=== PATIENT | male | born 1945 | race Caucasian/White ===

== ENCOUNTER 2017-12-12 11:42 | Inpatient (IN) | payer MEDICARE, SELFPAY ==
[2017-12-12] VITALS (10 sets, daily range): BP systolic 96–136; BP diastolic 69–95; PULSE 68–85; RESP 16–18; TEMP 36.6–36.8; O2SAT 95–98; BMI 28.0; BMI 27.4; BMI 27.5
--- NOTE | 2017-12-12 12:14 | EKG12_ITS ---
Test Reason : SOB Blood Pressure : / mmHG Vent. Rate : 070 BPM Atrial Rate : 129 BPM P-R Int : 000 ms QRS Dur : 164 ms QT Int : 472 ms P-R-T Axes : 000 270 081 degrees QTc Int : 509 ms Ventricular-paced rhythm Biventricular pacemaker detected Abnormal ECG Confirmed by TERESA PNOCE, NADNIE ([id number]), photograph editor JESSICA VALVERDE ([id number]) on 12/24/2017 1:03:32 PM Referred By: ED PHYSICIAN Confirmed By:NADINE MOORE MD
--- NOTE | 2017-12-12 12:22 | RAD_ITS ---
STUDY: X-RAY CHEST REASON FOR EXAM: Male, 71 years old. Shortness of breath and dyspnea. TECHNIQUE: PA and lateral views of the chest. COMPARISON: August 14, 2008 FINDINGS: Cardiac monitoring leads are present. Patient has left-sided intracardiac pacemaker. Patient has had a sternotomy. There is a diffuse groundglass attenuation in the right lung with interstitial thickening. This suggests an acute inflammatory process. There is no demonstrated pleural abnormality. There is moderate cardiac enlargement. Normal mediastinum and cary. Normal visualized pulmonary arteries. There is atherosclerotic calcification of the aortic arch with tortuosity. There is demineralization of the osseous structures. Normal visualized ribs, clavicles, and shoulders. There is no demonstrated abnormality of the visualized soft tissue structures of the upper abdomen. RAD/Chest PA and Lateral IMPRESSION: 1. Right-sided airspace disease possibly representing pneumonia. 2. Cardiomegaly and mild pulmonary congestion. Electronically Signed: Arlette Zhang MD at 13:17 EDT , Service support ,
[2017-12-12 12:52] LABS: Absolute Lymphocyte Count 0.73 X10^3/ul (0.83-4.51); Absolute Neutrophil Count 4.5 X10^3/uL (2.0-7.7); Basophil# 0.01 X10^3/uL; Basophil% 0.2 % (0-1); Eosinophil# 0.07 X10^3/uL; Eosinophils% 1.2 % (0-5); Hematocrit 42.9 % (40-54); Hemoglobin 14.6 g/dl (13.0-16.5); Lymphocyte # 0.73 X10^3/ul (4.0); Lymphocyte % 12.2 % (19-41); Mean Corpuscular Volume 85.3 fL (80-94); Mean Platelet Vol. 11.7 fl (6.2-12.0); Monocyte# 0.62 X10^3/uL; Monocyte% 10.4 % (0-10); Neutrophil # 4.53 X10^3/uL (2.7-7.7); Neutrophil % 75.8 % (47-70); POSITIVE COUNT NO; POSITIVE DIFFERENTIAL NO; POSITIVE MORPHOLOGY NO; Platelet Count 153 K/mm3 (150-450); RBC Distribution Width CV 14.9 % (11.6-14.6); RBC Distribution Width SD 46.1 fl (35.1-43.9); Red Blood Count 5.03 M/mm3 (4.6-6.2)
[2017-12-12 13:03] LABS: Prothrombin Time (Protime)PT. 22.5 SECONDS (11.7-14.9)
[2017-12-12 13:04] LABS: Partial Thromboplast Time 53.8 Seconds (24.1-36.2)
[2017-12-12 13:26] LABS: ALB/GLOB Ratio 0.9 RATIO (0.9-2.4); AST(SGOT) 49 U/L (15-37); Alanine Aminotransfer ALT/SGPT 64 U/L (16-61); Albumin, Serum 3.7 g/dL (3.2-5.0); Alkaline Phosphatase 102 U/L (45-117); Anion Gap 6 (5-15); BUN 19 mg/dL (7-18); BUN/Creat Ratio 14.6 RATIO (10-20); Calcium,Total 8.6 mg/dL (8.5-10.1); Chloride 103 mmol/L (98-107); EST Glomerular Filtration Rate 58 mL/min (>60); Est Glom Filt Rate - Afr Amer 70 mL/min (>60); Estimated Creatinine Clearance 51.36 ml/min; Glucose 126 mg/dL (74-106); Potassium 3.6 mmol/L (3.5-5.1); Protein, Total 7.7 g/dL (6.4-8.2); Sodium Level 139 mmol/L (136-145)
[2017-12-12 13:31] LABS: BNP,B-Type NATRIURETIC PEPTIDE 200.5 pg/mL (0-100)
--- NOTE | 2017-12-12 13:32 | ED.DCSUM_ITS ---
- ER Visit Summary Date of Service: 12/12/17 Chief Complaint: Shortness of breath History of Present Illness: The patient is a 72 F who states that he has a discomfort in his epigastrium. He states that it is a feeling that something is there that should not be. Is not necessarily painful. He notes over the past week he has become progressively more dyspneic. He states the other day he was unable to mow the lawn because of it. He has an extensive cardiac history having had CABG as well as numerous stents. He has a pacemaker defibrillator. He has a history of atrial fibrillation and is on Coumadin. He sees cardiology in [place] at [facility] Dr. Rubin. Patient does not know all of his medications. He does not know a lot of his medical history. His tells me that last fall they did an echocardiogram of his heart and stated that he did not have critical stenosis of his mitral valve yet but they were increasing his checkups to every 6 months. Physical Examination: Afebrile vital signs are stable Gen: Well-nourished well-developed Head: Normocephalic atraumatic Eyes: Perrl EOMI ENT: TMs clear no rhinorrhea moist mucous membranes Neck: Supple no lymphadenopathy no JVD nontender CVS: Regular rate rhythm no murmurs normal S1-S2 Respiratory: No distress clear to auscultation bilaterally chest nontender Abdomen: Soft nontender nondistended normal bowel sounds no masses Back: Nontender Extremity: Nontender no edema Skin: Normal color no rash Neuro: alert orientated ?3 CN II-XII intact normal strength sensation reflexes gait cerebellar Psych: Normal affect normal mood Test Results: KG is a paced rhythm. Chest x-ray was read as a possible infiltrate on the right. Given that he does have a white count or fever his CT Jennifer of his chest was ordered. This showed chronic lung changes. There was no PE or infiltrate noted. Patient has a troponin of 0.11. He is chronically elevated but typically in the 0.07-0.08 range. Liver enzymes are minimally elevated and his bilirubin is 2.2. His lipase is normal. He does have evidence of calcified gallstones on his CT. He does not note a history of discomfort with eating or vomiting or pain. I would think if he would have choledocholithiasis or cholecystitis some of these symptoms would be present. I spoke with the patient and his . We talked about hospitalization for further cardiac evaluation here at the hospital in [place] or transfer to [facility]. Patient would like to stay here at [place] unless absolutely necessary to be transferred. Impression: 1. Dyspnea 2. Elevated troponin 3. Cholelithiasis 4. Coronary artery disease This note was generated with [employer] dictation software. It may contain incorrect words, spelling, and punctuation that were not noted in review of the chart prior to signing ED Disposition - Plan for ED Patient: Chief Complaint: Shortness of Breath Referrals: George Mata MD [Primary Care Provider] -
--- NOTE | 2017-12-12 13:49 | CT_ITS ---
STUDY: CTA CHEST REASON FOR EXAM: Male, 71 years old. Shortness of breath with exertion for 2 weeks. RADIATION DOSAGE (If Supplied By Facility): CTDIvol = ( 15.49 ) mGy, DLP = ( 766.05 ) mGycm TECHNIQUE: The examination was performed with the intravenous administration of 75 ml of Isovue 370 contrast material. Post-processing of the angiographic images was performed, with multiplanar reformation and 3D reconstruction. Individualized dose optimization techniques were used for this CT. COMPARISON: None. FINDINGS: Patient has left-sided intracardiac pacemaker. Normal enhancement of the main pulmonary artery and right and left pulmonary arteries. Normal enhancement of the bilateral peripheral pulmonary arteries. There is no demonstrated pulmonary embolism. There is prominence of the main pulmonary arteries without peripheral pulmonary vascular congestion. There is patchy atherosclerotic calcification of the aortic arch with tortuosity. Maximum transverse dimension of ascending thoracic aorta measures 3.7 cm. There is no demonstrated aortic dissection. There is cardiomegaly. There are calcifications of the coronary arteries. There are visualized mediastinal lymph nodes, which are within normal size limits, and with normal morphology. There are enlarged left-sided hilar lymph nodes and right-sided hilar lymph nodes. Normal visualized trachea and bronchi. The lungs are well expanded. There is a heterogeneous, groundglass attenuation of the lung bases. There is interstitial thickening present in both lungs. There is interstitial thickening visible in the right upper lobe. There is more interstitial thickening in the right lung than there is in the left lung. The most severe abnormal attenuation is in the right lung base. Normal pleura. The patient has had a sternotomy. There are degenerative changes of thoracic spine. There are calcified gallstones. CT/CTA Chest W/WO Contrast IMPRESSION: 1. No CTA demonstrated pulmonary embolism or arterial dissection. 2. Diffuse interstitial thickening is visible particularly in the right lung and right lung base. Differential considerations include acute and/or chronic infection and/or inflammation. Electronically Signed: Arlette Zhang MD at 14:48 EDT , Service support ,
[2017-12-12 15:14] LABS: Lipase 205 U/L (73-393)
--- NOTE | 2017-12-12 15:37 | NURSING ---
DR JESSIE QUINONES
--- NOTE | 2017-12-12 15:46 | NURSING ---
HOSPITALIST IN ER
--- NOTE | 2017-12-12 15:48 | NURSING ---
PCU SOB, ANGINA KORAM
--- NOTE | 2017-12-12 16:07 | HP.PCM_ITS ---
Problem List (1) Angina effort Status: Acute (2) Borderline elevated troponin Status: Acute History of Present Illness Date of Admission: 12/12/17 Chief Complaint: exertional shortness of breath The patient is a 71 year old M with an extensive cardiac history. He has a history of 4 stents in the , quadruple bypass in 2006, mitral valve replacement in 2012 and history of pacemaker and defibrillator placed in 2014 as well as atrial fibrillation. Patient was admitted via the ED on 12/12/2017 with a complaint of exertional shortness of breath for a couple of days with associated epigastric discomfort. He states he has been short of breath for the past week but is gotten progressively worse over the last 2 days to the point where he cannot even move his lawn without getting short of breath. He denies any chest pain but only complained of the persistent epigastric discomfort which is new. Denied any lightheadedness or dizziness, any palpitations or diaphoresis. He also had no lower extremity edema. 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 Rubin. Please compliance with his medications. According to him he has been using his albuterol inhaler for asthma and COPD more frequently than usual and uses about 8 times per day. Prior to this week when symptoms started he was using the inhaler about twice a week. Review of systems otherwise negative. According to patient and his , he was diagnosed with hypertrophic cardiomyopathy and has a family history of similar condition and thus the reason his mitral valve was replaced. Per , he had a recent echocardiogram and was told that the stenosis of his mitral valve was worsening; however patient insists that it was rather the aortic valve that he was told was getting blocked. On admission in the ED, vitals with blood pressure 121/74, saturating 96% on room air, temperature of 97.9 and pulse rate of 70. EKG showed a paced rhythm and chest x-ray was read as a possible infiltrate in the right lung field. CT angiogram of chest showed only chronic lung changes and wound was negative for any PE or infiltrate. Troponin done in the ED was 0.11, baseline troponin is usually around 0.07-0.08. CT scan also showed evidence of calcified gallstones in his gallbladder. Patient has been admitted to be worked up for cardiac cause of shortness of breath. [] Past Medical History Past Medical History (Chronic Problems): Chronic Problems S/P PTCA (percutaneous transluminal coronary angioplasty) (Chronic) Glucose intolerance (impaired glucose tolerance) (Chronic) Cardiomyopathy (Chronic) Hypertension (Chronic) Status post valve replacement (Chronic) Hyperlipidemia (Chronic) Asthma (Chronic) Status post placement of cardiac pacemaker (Chronic) History of implantable cardiac defibrillator (ICD) (Chronic) Chronic atrial fibrillation (Chronic) Status post coronary artery bypass graft (Chronic) Coronary artery disease (Chronic) Allergies No Known Allergies Allergy (Verified 04/02/17 11:13) Home Medications: Ambulatory Orders Medication Instructions Recorded Albuterol Sulfate [Proair 90 mcg IH Q4H PRN PRN 02/16/17 Respiclick] Aspirin [Aspirin, Baby] 81 mg PO DAILY@0800 02/16/17 Carvedilol [Coreg (Beta Brett)] 3.125 mg PO BID 02/16/17 Fluticasone/Salmeterol [Advair 1 puff INHALATION BID 02/16/17 250/50 Mcg Diskus] Furosemide [Lasix] 40 mg PO DAILY 02/16/17 Lisinopril [Zestril] 2.5 mg PO DAILY 02/16/17 Nitroglycerin [Nitrostat] 0.4 mg SL PRN PRN 02/16/17 Pantoprazole Sodium 20 mg PO DAILY 02/16/17 Phenobarb/Hyoscy/Atropine/Scop 16.2 mg PO Q4H PRN PRN 02/16/17 [ Tablet] Warfarin Sodium [Coumadin] 5 mg PO DAILY 02/16/17 Atorvastatin Calcium [Lipitor] 40 mg PO QHS 12/12/17 Surgical History: angioplasty, appendectomy, coronary bypass surgery, pacemaker implantation, - - Cardiac stents. ICD placement. Lives: Spouse/ Significant Other Smoking Status: Former smoker - quit 40 years ago Tobacco Use: Cigarettes Alcohol: None Drugs: None - *Family History Maternal History Items: Heart Disease Paternal History Items: Heart Disease Review of Systems Constitutional: Denies: Chills, Fever, Night Sweats, Malaise, Weakness, Weight Change Eyes: Denies: Blurred vision HEENT: Denies: Head Aches, Sinus Congestion, Sinus Drainage Cardiovascular: Reports: Chest Tightness. Denies: Chest Pain, Claudication, Chest Pressure, Edema, Heaviness, Light Headedness, Orthopnea, Palpitations, Paroxysmal Noc. Dyspnea, Syncope Respiratory: Reports: Shortness of Breath, Shortness of breath at rest, Shortness of breath upon exertion. Denies: Cough, Hemoptysis, Pleuritic Pain, Sputum production, Wheezing Gastrointestinal: Reports: Dyspepsia. Denies: Abdominal Pain, Nausea, Vomiting Genitourinary: Denies: Dysuria Musculoskeletal: Denies: Back Pain, Joint Pain, Joint swelling, Joint Tenderness Skin: Denies: Rash, Wounds Neurological: Denies: Numbness, Tingling, Focal weakness Psychiatric: Denies: Anxiety, Depression, Homicidal Ideations, Suicidal Ideations Hematologic/ Lymphatic: Denies: Easy Bruising, Easy Bleeding VTE Information - Inpt Only VTE Present on Admission: No VTE Mechan Device Prophylaxis: SCD's VTE Pharm Prophylaxis ordered?: Yes Patient Problems: Active and Suspected Problems Angina effort (Acute) - Physical Exam General: Alert, Oriented x3, Cooperative, No apparent distress HEENT: Atraumatic, PERRLA, EOMI, Normocephalic Oral: Moist Mucosa Neck: Supple, No JVD, Negative Carotid Bruits Lungs: Clear to auscultation, Normal air movement Cardiovascular: Regular rate, Regular Rhythm, Normal S1, Normal S2, No murmurs Abdomen: Bowel Sounds Present, Soft, Non Tender, No Hepato-splenomegaly, - - distended abdomen; nontender, no organomegaly Extremities: No cyanosis, Capillary Refill Less than 3 Seconds, Edema - mild 1+ bilateral pitting pedal edema, Peripheral Pulses Normal Skin: No rashes, No breakdown Musculoskeletal: No Tenderness to Palpation of Joints or Extremities Lymphatic: No Cervical, Supraclavicular, or Inguinal Adenopathy Neurological: Cranial nerves II-XII grossly intact, Neuro grossly intact, Motor Exam 5/5 strength throughout Psych/Mental Status: Normal Affect, Appropriate, Alert and oriented to time, place, person, mood and affect Vital Signs Temp Pulse Resp BP Pulse Ox 97.9 F 70 17 96/69 95 12/12/17 11:43 12/12/17 14:14 12/12/17 14:14 12/12/17 14:14 12/12/17 14:14 Oxygen Delivery Method Room Air Weight: 189 lb 13.088 oz Body Mass Index (BMI) 28.0 Laboratory Tests Past 24 Hrs 05/05/18 05/05/18 05/05/18 11:50 11:50 11:50 WBC 6.0 RBC 5.03 Hgb 14.6 Hct 42.9 MCV 85.3 MCH 29.0 MCHC 34.0 RDW 14.9 H RDW Differential 46.1 H Plt Count 153 MPV 11.7 Immature Gran % (Auto) 0.200 Neut % (Auto) 75.8 H Lymph % (Auto) 12.2 L Motley % (Auto) 10.4 H Eos % (Auto) 1.2 Baso % (Auto) 0.2 Absolute Neuts (auto) 4.5 Absolute Lymphs (auto) 0.73 L Total Counted Not Reportable PT INR APTT Sodium 139 Potassium 3.6 Chloride 103 Carbon Dioxide 30.0 Anion Gap 6 BUN 19 H Creatinine 1.30 Estim Creat Clear Calc 51.36 Est GFR (MDRD) Af Amer 70 Est GFR (MDRD) Non-Af 58 L BUN/Creatinine Ratio 14.6 Glucose 126 H Calcium 8.6 Total Bilirubin 2.20 H AST 49 H ALT 64 H Alkaline Phosphatase 102 Troponin I 0.11 H B-Natriuretic Peptide 200.5 H Total Protein 7.7 Albumin 3.7 Globulin 4.0 Albumin/Globulin Ratio 0.9 Lipase 12/12/17 12/12/17 11:50 11:50 WBC RBC Hgb Hct MCV MCH MCHC RDW RDW Differential Plt Count MPV Immature Gran % (Auto) Neut % (Auto) Lymph % (Auto) Motley % (Auto) Eos % (Auto) Baso % (Auto) Absolute Neuts (auto) Absolute Lymphs (auto) Total Counted PT 22.5 H INR 2.0 APTT 53.8 H Sodium Potassium Chloride Carbon Dioxide Anion Gap BUN Creatinine Estim Creat Clear Calc Est GFR (MDRD) Af Amer Est GFR (MDRD) Non-Af BUN/Creatinine Ratio Glucose Calcium Total Bilirubin AST ALT Alkaline Phosphatase Troponin I B-Natriuretic Peptide Total Protein Albumin Globulin Albumin/Globulin Ratio Lipase 205 Assessment/Plan Active and Suspected Problems Angina effort (Acute) 71-year-old male with an extensive cardiac history including multiple stents, quadruple bypass, mitral valve replacements, hypertrophic cardiomyopathy and atrial fibrillation. Resents with worsening exertional shortness of breath for a week. He has associated epigastric discomfort but denies obvious chest pain. 1. Worsening shortness of breath, likely due to worsening angina vs Acute heart failure exacerbation vs symptomatic valvular stenosis (mitral vs aortic) * has no obvious JVD elevation; lungs were clear to auscultation. * CXR showed moderate cardiac enlargement with diffuse ground glass atennuation in right lung with interstitial thickening. * CT angiogram: diffuse interstitial thickening visible in right lung and right lung base. may be due to chronic infection and/or inflammation * EKG showed paced rhythm; no acute ST changes; BNPEP was 200 * has no leucocytosis or bands; * 2D echocardiogram; initial troponin was 0.11; will cycle * IV lasix 40mg bid. * breathing treatment with albuterol and atrovent * strict input and output monitoring; fluid restriction to 1500mls daily * cardiology consulted. * 2. CAD s/p stents and CABG * on carvedilol, lisinopril, atorvastatin and aspirin. Will continue * 3. COPD and asthma * says he had PFTs recently due to suspicion of COPD, but doesnt have results yet * has no wheezing or rhonchi on examination * will defer antibiotics for now due to absence of cough and no leucocytosis * breathing treatments with atrovent and albuterol * will give a 5 day course of PO prednisone 40mg daily due to more frequent use of albuterol recently. * 4. Afib * on coumadin 5mg daily. INR Is 2. Will continue and monitor INR * 5. GERD * complains of epigastric discomfort which could be due to GERD or angina * on pantoprazole 20mg daily. Will continue * 6. History of valvular insufficiency s/p mitral valve replacement * patient and confused about whether they were informed recently that the mitral or aortic valve insufficiency is worsening. * Will get 2D echo to assess valvular function. * 7. Elevated liver enzymes * bilirubin is 2.2; baseline is ~ 1.5. lipase is normal. AST/ALT-49/64 * CT abdomen showed calcified gallstones on CT scan. However, he has no fever or white cell count * Anderson's sign was negative. * will monitor liver enzymes * 8. DVT prophylaxis: on coumadin as mentioned above 9. GI prophylaxis: pantoprazole This note was generated with [employer] software. It may contain incorrect words, spelling, and punctuation that were not noted in checking the note before signing. Code Visit Inpatient E&M: 34440 Init Hosp L3
[2017-12-12] MEDS: Furosemide 40 MG/4 ML Vial IV (17:45)
[2017-12-12] MEDS: Albuterol 2.5 MG/3 ML VIAL.NEB. INHALATION (18:48)
[2017-12-12] MEDS: Budesonide Respules 0.5 MG/2 ML AMPUL.NEB. INHALATION (18:48)
[2017-12-12] MEDS: Atorvastatin Calcium 40 MG Tablet PO (22:14)
[2017-12-12] MEDS: Carvedilol 3.125 MG TABLET PO (22:14)
[2017-12-12] MEDS: 0.9% NaCl Peripheral Flush Adult/Peds IV (22:14)
[2017-12-13] VITALS (7 sets, daily range): BP systolic 97–113; BP diastolic 60–77; PULSE 70–696; RESP 14–18; TEMP 36.4–37; O2SAT 96–97
[2017-12-13 06:21] LABS: Bedside Glucose 101 mg/dL (70-110)
[2017-12-13] MEDS: Albuterol 2.5 MG/3 ML VIAL.NEB. INHALATION (07:00)
[2017-12-13] MEDS: Budesonide Respules 0.5 MG/2 ML AMPUL.NEB. INHALATION (07:00)
[2017-12-13 07:06] LABS: Absolute Lymphocyte Count 1.01 X10^3/ul (0.83-4.51); Absolute Neutrophil Count 4.6 X10^3/uL (2.0-7.7); Basophil# 0.01 X10^3/uL; Basophil% 0.2 % (0-1); Eosinophil# 0.13 X10^3/uL; Eosinophils% 2.1 % (0-5); Hematocrit 41.2 % (40-54); Hemoglobin 13.5 g/dl (13.0-16.5); Lymphocyte # 1.01 X10^3/ul (4.0); Lymphocyte % 16.2 % (19-41); Mean Corp Hgb Conc 32.8 g/gl (32-36); Mean Corpuscular Hgb 28.2 pg (27.0-32.0); Mean Platelet Vol. 10.7 fl (6.2-12.0); Monocyte# 0.53 X10^3/uL; Monocyte% 8.5 % (0-10); Neutrophil # 4.56 X10^3/uL (2.7-7.7); Neutrophil % 72.8 % (47-70); Platelet Count 128 K/mm3 (150-450); RBC Distribution Width CV 14.9 % (11.6-14.6); RBC Distribution Width SD 47.4 fl (35.1-43.9); Red Blood Count 4.79 M/mm3 (4.6-6.2); White Blood Count 6.3 K/mm3 (4.4-11.0)
[2017-12-13 07:09] LABS: POSITIVE COUNT NO; POSITIVE DIFFERENTIAL NO; POSITIVE MORPHOLOGY NO
[2017-12-13 07:42] LABS: Anion Gap 7 (5-15); BUN 19 mg/dL (7-18); BUN/Creat Ratio 17.9 RATIO (10-20); Calcium,Total 8.6 mg/dL (8.5-10.1); Chloride 106 mmol/L (98-107); Creatinine, Serum 1.06 mg/dL (0.70-1.30); EST Glomerular Filtration Rate 73 mL/min (>60); Est Glom Filt Rate - Afr Amer 88 mL/min (>60); Estimated Creatinine Clearance 62.99 ml/min; Glucose 94 mg/dL (74-106); Potassium 3.6 mmol/L (3.5-5.1); Sodium Level 142 mmol/L (136-145)
[2017-12-13] MEDS: Aspirin 81 MG TAB.CHEW PO (07:50)
--- NOTE | 2017-12-13 09:55 | PCM.CONS.C ---
Reason for Consult Date of Consultation: 12/13/17 Reason for Consultation: Shortness of breath History of Present Illness: The patient is a 71 year old M with an extensive cardiac history. He has a history of 4 stents in the , quadruple bypass in 2006, mitral valve replacement in 2012 and history of pacemaker and defibrillator placed in 2014 as well as atrial fibrillation. He also has a history of hypertrophic cardiomyopathy and thinks that he may have a problem with his aortic valve as well. Patient was admitted via the ED on 12/12/2017 with a complaint of exertional shortness of breath for a couple of days with associated epigastric discomfort. He states he has been short of breath for the past week but is gotten progressively worse over the last 2 days to the point where he cannot even move his lawn without getting short of breath. He denies any chest pain but only complained of the persistent epigastric discomfort which is new. Denied any lightheadedness or dizziness, any palpitations or diaphoresis. He also had no lower extremity edema. He follows up with his colorist at [facility], Dr. Delgadillo. Prior to this week when symptoms started he was using the inhaler about twice a week. He has an appointment to see his colorist in 3-5 days and thinks that there may be a problem with his aortic valve. On admission in the ED, vitals with blood pressure 121/74, saturating 96% on room air, temperature of 97.9 and pulse rate of 70. EKG showed a paced rhythm and chest x-ray was read as a possible infiltrate in the right lung field. CT angiogram of chest showed only chronic lung changes and wound was negative for any PE or infiltrate. Troponin done in the ED was 0.11, baseline troponin is usually around 0.07-0.08. CT scan also showed evidence of calcified gallstones in his gallbladder. Patient has been admitted to be worked up for cardiac cause of shortness of breath. At this particular time he appears to be doing well with improvement in his shortness of breath. [] Past Medical History Allergies/Adverse Reactions: Allergies No Known Allergies Allergy (Verified 04/02/17 11:13) Home Medications: Ambulatory Orders Medication Instructions Recorded Albuterol Sulfate [Proair 90 mcg IH Q4H PRN PRN 02/16/17 Respiclick] Aspirin [Aspirin, Baby] 81 mg PO DAILY@0800 02/16/17 Carvedilol [Coreg (Beta Brett)] 3.125 mg PO BID 02/16/17 Fluticasone/Salmeterol [Advair 1 puff INHALATION BID 02/16/17 250/50 Mcg Diskus] Furosemide [Lasix] 40 mg PO DAILY 02/16/17 Lisinopril [Zestril] 2.5 mg PO DAILY 02/16/17 Nitroglycerin [Nitrostat] 0.4 mg SL PRN PRN 02/16/17 Pantoprazole Sodium 20 mg PO DAILY 02/16/17 Phenobarb/Hyoscy/Atropine/Scop 16.2 mg PO Q4H PRN PRN 02/16/17 [ Tablet] Warfarin Sodium [Coumadin] 5 mg PO DAILY 02/16/17 Atorvastatin Calcium [Lipitor] 40 mg PO QHS 12/12/17 Past Medical History (Chronic Problems): Chronic Problems S/P PTCA (percutaneous transluminal coronary angioplasty) (Chronic) Glucose intolerance (impaired glucose tolerance) (Chronic) Cardiomyopathy (Chronic) Hypertension (Chronic) Status post valve replacement (Chronic) Hyperlipidemia (Chronic) Asthma (Chronic) Status post placement of cardiac pacemaker (Chronic) History of implantable cardiac defibrillator (ICD) (Chronic) Chronic atrial fibrillation (Chronic) Status post coronary artery bypass graft (Chronic) Coronary artery disease (Chronic) Surgical History: angioplasty, appendectomy, coronary bypass surgery, pacemaker implantation, - - Cardiac stents. ICD placement. - *Family History Maternal History Items: Heart Disease Paternal History Items: Heart Disease Lives: Spouse/ Significant Other Smoking Status: Former smoker - quit 40 years ago Tobacco Use: Cigarettes Alcohol: None Drugs: None Review of Systems - Review of Systems General: Denies: Fever, Night Sweats, Fatigue Cardiovascular: Reports: Shortness of Breath, Shortness of Breath at Rest, Shortness of Breath with Exertion. Denies: Chest Discomfort, Orthopnea, PND, Peripheral Edema, Palpitations, Lightheadedness, Dizziness, Near Syncope, Syncope Respiratory: Denies: Cough, Sputum Production, Hemoptysis Gastrointestinal: Denies: Hematemesis, Hematochezia, Melena Genitourinary: Denies: Dysuria, Hematuria Skin: Denies: Rash Subjectve: Pleasant gentleman in no apparent distress Objective: Vital Signs Temp Pulse Resp BP Pulse Ox 98.0 F 696 H 18 110/77 96 12/13/17 03:40 12/13/17 07:01 12/13/17 03:40 12/13/17 03:40 12/13/17 03:40 Oxygen Delivery Method Room Air Weight: 186 lb 1.122 oz Body Mass Index (BMI) 27.4 Intake and Output for Last 24 Hours 12/11/17 12/12/17 12/13/17 23:59 23:59 23:59 Intake Total 240 / 240 360 / 360 Output Total 325 / 325 Balance -85 / -85 360 / 360 General: Awake, Alert, Oriented x 3 HEENT: PERRL, EOMI, Sclera Non Icteric Neck: Supple, Good ROM, No Lymph Node Enlargement Lungs: Clear to auscultation Cardiovascular: Regular Rhythm, Normal S1, Normal S2, No Rubs, No Gallops Murmur Murmur: Grade 1/6, Early Systolic, LLSB Vascular: No Carotid Bruits, Normal Femoral Pulses, Normal Radial Pulses, Normal Dorsalis Pedal Pulse, Normal Posterior Tibial Pulses Abdomen: Bowel Sounds Present, Soft, Non Tender, No HSM, No Organomegaly Extremities: No Cyanosis, No Clubbing, No edema Skin: No Rashes Neurological: No Focal Motor or Sensory Deficit Psych/Mental Status: Appropriate 12/12/17 19:30: Troponin I 0.13 H 12/13/17 01:06: Troponin I 0.13 H 12/13/17 06:34: Sodium 142, Potassium 3.6, Chloride 106, Carbon Dioxide 29.0, Anion Gap 7, BUN 19 H, Creatinine 1.06, Est GFR (MDRD) Af Amer 88, Est GFR (MDRD) Non-Af 73, BUN/Creatinine Ratio 17.9, Glucose 94, Calcium 8.6 12/13/17 06:34: WBC 6.3, RBC 4.79, Hgb 13.5, Hct 41.2, MCV 86.0, MCH 28.2, MCHC 32.8, RDW 14.9 H, RDW Differential 47.4 H, Plt Count 128 L, MPV 10.7, Immature Gran % (Auto) 0.200, Neut % (Auto) 72.8 H, Lymph % (Auto) 16.2 L, [place] % (Auto) 8.5, Eos % (Auto) 2.1, Baso % (Auto) 0.2, Absolute Neuts (auto) 4.6, Total Counted Not Reportable 12/13/17 06:34: Troponin I 0.11 H Rhythm: EKG: Sinus bradycardia with a right bundle branch block rate of 59 bpm Assessment/Plan 1. Worsening shortness of breath, The above is likely secondary to diastolic dysfunction and congestive heart failure. The exact precipitating etiology however is not entirely clear as it may be multifactorial related to valvular heart disease from worsening aortic stenosis or his mitral valve replacement or dietary indiscretion. This will need to be sorted out a repeat echocardiogram will need to be performed and coronary ischemia also needs to be excluded. Due to his complicated cardiac history as well as his follow-up in [place] it may be prudent to have him follow-up with his colorist there for further clarification and risk stratification. I discussed this with the patient and his and they understand and agreed to proceed. In the meantime he will be restarted on Lasix intravenously pending his transfer. Also discussed with hospitalist. 2. CAD s/p stents and CABG Does have mildly abnormal troponin enzymes which could be secondary to his heart failure and no necessary from coronary ischemia. He does not have a rise and fall pattern. My suspicion is that this is secondary to demand ischemia. on carvedilol, lisinopril, atorvastatin and aspirin. Will continue 3. Afib on coumadin 5mg daily. INR Is 2. Will continue and monitor INR 4. History of valvular insufficiency s/p mitral valve replacement patient and confused about whether they were informed recently that the mitral or aortic valve insufficiency is worsening. His murmur does sound like he had a mitral valve issue. Will get 2D echo to assess valvular function. This can be performed in [place] 5. Hypertrophic cardiomyopathy He does have a history of hypertrophic cardiomyopathy and apparently had mitral valve replacement for treatment of the above. This will be reassessed again in [place]. In the meantime he will continue his beta-brett for rate control as well as improving diastolic function. Thank you for allowing me to participate in his care and please do not hesitate to contact me if any issues arise.
--- NOTE | 2017-12-13 09:59 | CON.PCM_ITS ---
Reason for Consult Date of Consultation: 12/13/17 Reason for Consultation: Shortness of breath History of Present Illness: The patient is a 71 year old M with an extensive cardiac history. He has a history of 4 stents in the , quadruple bypass in 2006, mitral valve replacement in 2012 and history of pacemaker and defibrillator placed in 2014 as well as atrial fibrillation. He also has a history of hypertrophic cardiomyopathy and thinks that he may have a problem with his aortic valve as well. Patient was admitted via the ED on 12/12/2017 with a complaint of exertional shortness of breath for a couple of days with associated epigastric discomfort. He states he has been short of breath for the past week but is gotten progressively worse over the last 2 days to the point where he cannot even move his lawn without getting short of breath. He denies any chest pain but only complained of the persistent epigastric discomfort which is new. Denied any lightheadedness or dizziness, any palpitations or diaphoresis. He also had no lower extremity edema. He follows up with his chummer at [facility], Dr. Delgadillo. Prior to this week when symptoms started he was using the inhaler about twice a week. He has an appointment to see his chummer in 3-5 days and thinks that there may be a problem with his aortic valve. On admission in the ED, vitals with blood pressure 121/74, saturating 96 % on room air, temperature of 97.9 and pulse rate of 70. EKG showed a paced rhythm and chest x-ray was read as a possible infiltrate in the right lung field. CT angiogram of chest showed only chronic lung changes and wound was negative for any PE or infiltrate. Troponin done in the ED was 0.11, baseline troponin is usually around 0.07-0.08. CT scan also showed evidence of calcified gallstones in his gallbladder. Patient has been admitted to be worked up for cardiac cause of shortness of breath. At this particular time he appears to be doing well with improvement in his shortness of breath. [] Past Medical History Allergies/Adverse Reactions: Allergies No Known Allergies Allergy (Verified 04/02/17 11:13) Home Medications: Ambulatory Orders Medication Instructions Recorded Albuterol Sulfate [Proair 90 mcg IH Q4H PRN PRN 02/16/17 Respiclick] Aspirin [Aspirin, Baby] 81 mg PO DAILY@0800 02/16/17 Carvedilol [Coreg (Beta Brett)] 3.125 mg PO BID 02/16/17 Fluticasone/Salmeterol [Advair 1 puff INHALATION BID 02/16/17 250/50 Mcg Diskus] Furosemide [Lasix] 40 mg PO DAILY 02/16/17 Lisinopril [Zestril] 2.5 mg PO DAILY 02/16/17 Nitroglycerin [Nitrostat] 0.4 mg SL PRN PRN 02/16/17 Pantoprazole Sodium 20 mg PO DAILY 02/16/17 Phenobarb/Hyoscy/Atropine/Scop 16.2 mg PO Q4H PRN PRN 02/16/17 [ Tablet] Warfarin Sodium [Coumadin] 5 mg PO DAILY 02/16/17 Atorvastatin Calcium [Lipitor] 40 mg PO QHS 12/12/17 Past Medical History (Chronic Problems): Chronic Problems S/P PTCA (percutaneous transluminal coronary angioplasty) (Chronic) Glucose intolerance (impaired glucose tolerance) (Chronic) Cardiomyopathy (Chronic) Hypertension (Chronic) Status post valve replacement (Chronic) Hyperlipidemia (Chronic) Asthma (Chronic) Status post placement of cardiac pacemaker (Chronic) History of implantable cardiac defibrillator (ICD) (Chronic) Chronic atrial fibrillation (Chronic) Status post coronary artery bypass graft (Chronic) Coronary artery disease (Chronic) Surgical History: angioplasty, appendectomy, coronary bypass surgery, pacemaker implantation, - - Cardiac stents. ICD placement. - *Family History Maternal History Items: Heart Disease Paternal History Items: Heart Disease Lives: Spouse/ Significant Other Smoking Status: Former smoker - quit 40 years ago Tobacco Use: Cigarettes Alcohol: None Drugs: None Review of Systems - Review of Systems General: Denies: Fever, Night Sweats, Fatigue Cardiovascular: Reports: Shortness of Breath, Shortness of Breath at Rest, Shortness of Breath with Exertion. Denies: Chest Discomfort, Orthopnea, PND, Peripheral Edema, Palpitations, Lightheadedness, Dizziness, Near Syncope, Syncope Respiratory: Denies: Cough, Sputum Production, Hemoptysis Gastrointestinal: Denies: Hematemesis, Hematochezia, Melena Genitourinary: Denies: Dysuria, Hematuria Skin: Denies: Rash Subjectve: Pleasant gentleman in no apparent distress Objective: Vital Signs Temp Pulse Resp BP Pulse Ox 98.0 F 696 H 18 110/77 96 12/13/17 03:40 12/13/17 07:01 12/13/17 03:40 12/13/17 03:40 12/13/17 03:40 Oxygen Delivery Method Room Air Weight: 186 lb 1.122 oz Body Mass Index (BMI) 27.4 Intake and Output for Last 24 Hours 12/11/17 12/12/17 12/13/17 23:59 23:59 23:59 Intake Total 240 / 240 360 / 360 Output Total 325 / 325 Balance -85 / -85 360 / 360 General: Awake, Alert, Oriented x 3 HEENT: PERRL, EOMI, Sclera Non Icteric Neck: Supple, Good ROM, No Lymph Node Enlargement Lungs: Clear to auscultation Cardiovascular: Regular Rhythm, Normal S1, Normal S2, No Rubs, No Gallops Murmur Murmur: Grade 1/6, Early Systolic, LLSB Vascular: No Carotid Bruits, Normal Femoral Pulses, Normal Radial Pulses, Normal Dorsalis Pedal Pulse, Normal Posterior Tibial Pulses Abdomen: Bowel Sounds Present, Soft, Non Tender, No HSM, No Organomegaly Extremities: No Cyanosis, No Clubbing, No edema Skin: No Rashes Neurological: No Focal Motor or Sensory Deficit Psych/Mental Status: Appropriate 12/12/17 19:30: Troponin I 0.13 H 12/13/17 01:06: Troponin I 0.13 H 12/13/17 06:34: Sodium 142, Potassium 3.6, Chloride 106, Carbon Dioxide 29.0, Anion Gap 7, BUN 19 H, Creatinine 1.06, Est GFR (MDRD) Af Amer 88, Est GFR (MDRD ) Non-Af 73, BUN/Creatinine Ratio 17.9, Glucose 94, Calcium 8.6 12/13/17 06:34: WBC 6.3, RBC 4.79, Hgb 13.5, Hct 41.2, MCV 86.0, MCH 28.2, MCHC 32.8, RDW 14.9 H, RDW Differential 47.4 H, Plt Count 128 L, MPV 10.7, Immature Gran % (Auto) 0.200, Neut % (Auto) 72.8 H, Lymph % (Auto) 16.2 L, [place] % (Auto) 8.5, Eos % (Auto) 2.1, Baso % (Auto) 0.2, Absolute Neuts (auto) 4.6, Total Counted Not Reportable 12/13/17 06:34: Troponin I 0.11 H Rhythm: EKG: Sinus bradycardia with a right bundle branch block rate of 59 bpm Assessment/Plan 1. Worsening shortness of breath, The above is likely secondary to diastolic dysfunction and congestive heart failure. The exact precipitating etiology however is not entirely clear as it may be multifactorial related to valvular heart disease from worsening aortic stenosis or his mitral valve replacement or dietary indiscretion. This will need to be sorted out a repeat echocardiogram will need to be performed and coronary ischemia also needs to be excluded. Due to his complicated cardiac history as well as his follow-up in [place] it may be prudent to have him follow-up with his chummer there for further clarification and risk stratification. I discussed this with the patient and his and they understand and agreed to proceed. In the meantime he will be restarted on Lasix intravenously pending his transfer. Also discussed with hospitalist. 2. CAD s/p stents and CABG Does have mildly abnormal troponin enzymes which could be secondary to his heart failure and no necessary from coronary ischemia. He does not have a rise and fall pattern. My suspicion is that this is secondary to demand ischemia. * on carvedilol, lisinopril, atorvastatin and aspirin. Will continue * 3. Afib * on coumadin 5mg daily. INR Is 2. Will continue and monitor INR * 4. History of valvular insufficiency s/p mitral valve replacement * patient and confused about whether they were informed recently that the mitral or aortic valve insufficiency is worsening. His murmur does sound like he had a mitral valve issue. * Will get 2D echo to assess valvular function. This can be performed in [place] * * 5. Hypertrophic cardiomyopathy He does have a history of hypertrophic cardiomyopathy and apparently had mitral valve replacement for treatment of the above. This will be reassessed again in [place]. In the meantime he will continue his beta-brett for rate control as well as improving diastolic function. Thank you for allowing me to participate in his care and please do not hesitate to contact me if any issues arise.
[2017-12-13] MEDS: Pantoprazole Sodium 20 MG Tablet PO (10:26)
[2017-12-13] MEDS: Carvedilol 3.125 MG TABLET PO (10:26)
[2017-12-13] MEDS: Lisinopril 2.5 MG Tablet PO (10:27)
[2017-12-13] MEDS: Isosorbide Mononitrate 30 MG Tablet PO (10:27)
[2017-12-13] MEDS: 0.9% NaCl Peripheral Flush Adult/Peds IV (10:29)
[2017-12-13] MEDS: Furosemide 40 MG/4 ML Vial IV (10:29)
--- NOTE | 2017-12-13 10:39 | PCM.PN.HOSP ---
Patient Problems: Active and Suspected Problems Angina effort (Acute) Subjective: 71-year-old male with an extensive cardiac history of multiple stents, quadruple bypass in 2007, mitral valve replacement, hypertrophic cardiomyopathy, history of pacemaker and defibrillator and atrial fibrillation. He was admitted on 12/12/2017 with a complaint of exertional shortness of breath with associated epigastric discomfort and use of his albuterol inhaler more frequently than usual. History of COPD and asthma. Be managed for worsening shortness of breath likely due to angina to rule out ACS. Initial troponin was 0.11 and it stayed around 0.11-0.13 with 3 cycles. He has remained stable. Patient seen and examined. He feels much better today. SOB has resolved. HE denies any chest pain, palpitations, dizziness, lightheadedness, pedal edema, abdominal pain, diarrhea or vomiting. REview of systems is otherwise negative. Vitals/I&O's: Vital Signs Temp Pulse Resp BP Pulse Ox 97.6 F L 71 14 113/75 947 12/13/17 10:19 12/13/17 10:19 12/13/17 10:19 12/13/17 10:19 12/13/17 10:19 Oxygen Delivery Method Room Air Weight: 186 lb 1.122 oz Body Mass Index (BMI) 27.4 Intake and Output for Last 24 Hours 12/11/17 12/12/17 12/13/17 23:59 23:59 23:59 Intake Total 240 / 240 360 / 360 Output Total 325 / 325 Balance -85 / -85 360 / 360 General: Alert, Oriented x3, Cooperative, No apparent distress HEENT: Atraumatic, PERRLA, EOMI, Normocephalic Oral: Moist Mucosa Neck: Supple, No JVD, Negative Carotid Bruits Lungs: Clear to auscultation, Normal air movement, No rhonchi, No wheeze, No rales Cardiovascular: Regular rate, Regular Rhythm, Normal S1, Normal S2, - - Mild grade 2 systolic aortic murmur. Abdomen: Bowel Sounds Present, Soft, Non Tender, Non-Distended, No Hepato-splenomegaly Extremities: No clubbing, No cyanosis, - - Edema of lower extremities has improved significantly from yesterday Skin: No rashes, No breakdown Musculoskeletal: No Tenderness to Palpation of Joints or Extremities Lymphatic: No Cervical, Supraclavicular, or Inguinal Adenopathy Neurological: Cranial nerves II-XII grossly intact, Neuro grossly intact, Motor Exam 5/5 strength throughout Psych/Mental Status: Normal Affect, Appropriate, Alert and oriented to time, place, person, mood and affect Laboratory Results 12/12/17 19:30: Troponin I 0.13 H 12/13/17 01:06: Troponin I 0.13 H 12/13/17 06:14: POC Glucose 101 12/13/17 06:34: Sodium 142, Potassium 3.6, Chloride 106, Carbon Dioxide 29.0, Anion Gap 7, BUN 19 H, Creatinine 1.06, Estim Creat Clear Calc 62.99, Est GFR (MDRD) Af Amer 88, Est GFR (MDRD) Non-Af 73, BUN/Creatinine Ratio 17.9, Glucose 94, Calcium 8.6 12/13/17 06:34: WBC 6.3, RBC 4.79, Hgb 13.5, Hct 41.2, MCV 86.0, MCH 28.2, MCHC 32.8, RDW 14.9 H, RDW Differential 47.4 H, Plt Count 128 L, MPV 10.7, Immature Gran % (Auto) 0.200, Neut % (Auto) 72.8 H, Lymph % (Auto) 16.2 L, [place] % (Auto) 8.5, Eos % (Auto) 2.1, Baso % (Auto) 0.2, Absolute Neuts (auto) 4.6, Absolute Lymphs (auto) 1.01, Total Counted Not Reportable 12/13/17 06:34: Troponin I 0.11 H Current Medications Albuterol Sulfate (Ventolin Aerosols) 2.5 mg INHALATION Q6HWA.RT [facility] Last Admin: 12/13/17 07:00 Dose: 2.5 mg Aspirin (Aspirin, Baby) 81 mg PO DAILY@0800 [facility] Last Admin: 12/13/17 07:50 Dose: 81 mg Atorvastatin Calcium (Lipitor) 40 mg PO QHS [facility] Last Admin: 12/12/17 22:14 Dose: 40 mg Belladonna Alkaloids/Phenobarbital ( Tablet) tablet PO Q4H PRN PRN PRN Reason: Diarrhea Budesonide (Pulmicort Aerosol) 0.5 mg INHALATION Q12H.RT [facility] Last Admin: 12/13/17 07:00 Dose: 0.5 mg Carvedilol (Coreg) 3.125 mg PO BID [facility] Last Admin: 12/13/17 10:26 Dose: 3.125 mg Furosemide (Lasix) 40 mg IV BID@1000,1800 [facility] Last Admin: 12/13/17 10:29 Dose: 40 mg Isosorbide Mononitrate (Imdur) 30 mg PO DAILY [facility] Last Admin: 12/13/17 10:27 Dose: 30 mg Lisinopril (Zestril) 2.5 mg PO DAILY [facility] Last Admin: 12/13/17 10:27 Dose: 2.5 mg Magnesium Hydroxide (Milk Of Magnesia) 30 ml PO DAILY PRN PRN PRN Reason: Constipation Magnesium Hydroxide (Milk Of Magnesia) 30 ml PO DAILY PRN PRN PRN Reason: Constipation Nitroglycerin (Nitrostat) 0.4 mg SUBLINGUAL PRN PRN PRN Reason: CHEST PAIN Pantoprazole Sodium (Protonix) 20 mg PO DAILY [facility] Last Admin: 12/13/17 10:26 Dose: 20 mg Sodium Chloride () 5 - 30 ml IV UD PRN PRN Reason: SALINE FLUSH Last Admin: 12/13/17 10:29 Dose: 20 ml Warfarin Sodium (Coumadin (Pbkc)) 5 mg PO DAILY@1700 [facility] Medical Necessity - Tobacco Use Smoking Status: Former smoker - quit 40 years ago Tobacco Use: Cigarettes Assessment/Plan Active and Suspected Problems Angina effort (Acute) 71-year-old male with an extensive cardiac history including multiple stents, quadruple bypass, mitral valve replacements, hypertrophic cardiomyopathy and atrial fibrillation. Presents with worsening exertional shortness of breath for a week. He has associated epigastric discomfort but denies obvious chest pain. 1. Worsening shortness of breath, likely due to worsening angina vs Acute heart failure exacerbation vs symptomatic valvular stenosis (mitral vs aortic) Of breath improved significantly overnight. Has no complaints this morning. Demented urine output was only 325 mils over 24 hours with negative balance of 85 mils. However patient looks much less overloaded relative to yesterday with edema having improved significantly. IV Lasix 40 mg twice daily and breathing treatment with albuterol and Atrovent. Initial troponin was 0.11 and trended up to 0.13 with cycling. Cardiology consulted. Per discussion with Dr. salcedo this morning, will be a good idea to transfer patient to [facility] because that is where he gets all his cardiac care and will be much better for patient for continuity of care. spoke to Dr. Violeta Donohue the tobacco drier operator it solutions sales consultant at [facility] on phone. She will accept patient will be transferred hospitalist service [facility]. 2. CAD s/p stents and CABG on carvedilol, lisinopril, atorvastatin and aspirin. Will continue 3. COPD and asthma Sleep COPD exacerbation improving. Lungs are much better than yesterday. Will continue 5 day course of p.o. prednisone and breathing treatments. 4. Afib on coumadin 5mg daily. INR Is 2. Will continue and monitor INR 5. GERD stable. Epigastric discomfort has resolvec on pantoprazole 20mg daily. 6. History of valvular insufficiency due to hypertrophic cardiomyopathy s/p mitral valve replacement patient and confused about whether they were informed recently that the mitral or aortic valve insufficiency is worsening. being transferred to the care of his tobacco drier operator at [facility] 7. Elevated liver enzymes bilirubin- 2.2; baseline is ~ 1.5. lipase is normal. AST/ALT-49/64 CT abdomen showed calcified gallstones on CT scan. However, he has no fever or white cell count Anderson's sign was negative. stable. Will monnitor 8. DVT prophylaxis: on coumadin as mentioned above 9. GI prophylaxis: pantoprazole Disposition: transfer to [facility] This note was generated with [employer] dictation software. It may contain incorrect words, spelling, and punctuation that were not noted in checking the note before signing. Code Visit Inpatient E&M: [id number] [facility] L3
--- NOTE | 2017-12-13 10:49 | PN_ITS ---
Patient Problems: Active and Suspected Problems Angina effort (Acute) Subjective: 71-year-old male with an extensive cardiac history of multiple stents, quadruple bypass in 2007, mitral valve replacement, hypertrophic cardiomyopathy , history of pacemaker and defibrillator and atrial fibrillation. He was admitted on 12/12/2017 with a complaint of exertional shortness of breath with associated epigastric discomfort and use of his albuterol inhaler more frequently than usual. History of COPD and asthma. Be managed for worsening shortness of breath likely due to angina to rule out ACS. Initial troponin was 0.11 and it stayed around 0.11-0.13 with 3 cycles. He has remained stable. Patient seen and examined. He feels much better today. SOB has resolved. HE denies any chest pain, palpitations, dizziness, lightheadedness, pedal edema, abdominal pain, diarrhea or vomiting. REview of systems is otherwise negative. Vitals/I&O's: Vital Signs Temp Pulse Resp BP Pulse Ox 97.6 F L 71 14 113/75 947 12/13/17 10:19 12/13/17 10:19 12/13/17 10:19 12/13/17 10:19 12/13/17 10:19 Oxygen Delivery Method Room Air Weight: 186 lb 1.122 oz Body Mass Index (BMI) 27.4 Intake and Output for Last 24 Hours 12/11/17 12/12/17 12/13/17 23:59 23:59 23:59 Intake Total 240 / 240 360 / 360 Output Total 325 / 325 Balance -85 / -85 360 / 360 General: Alert, Oriented x3, Cooperative, No apparent distress HEENT: Atraumatic, PERRLA, EOMI, Normocephalic Oral: Moist Mucosa Neck: Supple, No JVD, Negative Carotid Bruits Lungs: Clear to auscultation, Normal air movement, No rhonchi, No wheeze, No rales Cardiovascular: Regular rate, Regular Rhythm, Normal S1, Normal S2, - - Mild grade 2 systolic aortic murmur. Abdomen: Bowel Sounds Present, Soft, Non Tender, Non-Distended, No Hepato- splenomegaly Extremities: No clubbing, No cyanosis, - - Edema of lower extremities has improved significantly from yesterday Skin: No rashes, No breakdown Musculoskeletal: No Tenderness to Palpation of Joints or Extremities Lymphatic: No Cervical, Supraclavicular, or Inguinal Adenopathy Neurological: Cranial nerves II-XII grossly intact, Neuro grossly intact, Motor Exam 5/5 strength throughout Psych/Mental Status: Normal Affect, Appropriate, Alert and oriented to time, place, person, mood and affect Laboratory Results 12/12/17 19:30: Troponin I 0.13 H 12/13/17 01:06: Troponin I 0.13 H 12/13/17 06:14: POC Glucose 101 12/13/17 06:34: Sodium 142, Potassium 3.6, Chloride 106, Carbon Dioxide 29.0, Anion Gap 7, BUN 19 H, Creatinine 1.06, Estim Creat Clear Calc 62.99, Est GFR ( MDRD) Af Amer 88, Est GFR (MDRD) Non-Af 73, BUN/Creatinine Ratio 17.9, Glucose 94, Calcium 8.6 12/13/17 06:34: WBC 6.3, RBC 4.79, Hgb 13.5, Hct 41.2, MCV 86.0, MCH 28.2, MCHC 32.8, RDW 14.9 H, RDW Differential 47.4 H, Plt Count 128 L, MPV 10.7, Immature Gran % (Auto) 0.200, Neut % (Auto) 72.8 H, Lymph % (Auto) 16.2 L, [place] % (Auto) 8.5, Eos % (Auto) 2.1, Baso % (Auto) 0.2, Absolute Neuts (auto) 4.6, Absolute Lymphs (auto) 1.01, Total Counted Not Reportable 12/13/17 06:34: Troponin I 0.11 H Current Medications Albuterol Sulfate (Ventolin Aerosols) 2.5 mg INHALATION Q6HWA.RT [facility] Last Admin: 12/13/17 07:00 Dose: 2.5 mg Aspirin (Aspirin, Baby) 81 mg PO DAILY@0800 [facility] Last Admin: 12/13/17 07:50 Dose: 81 mg Atorvastatin Calcium (Lipitor) 40 mg PO QHS [facility] Last Admin: 12/12/17 22:14 Dose: 40 mg Belladonna Alkaloids/Phenobarbital ( Tablet) tablet PO Q4H PRN PRN PRN Reason: Diarrhea Budesonide (Pulmicort Aerosol) 0.5 mg INHALATION Q12H.RT [facility] Last Admin: 12/13/17 07:00 Dose: 0.5 mg Carvedilol (Coreg) 3.125 mg PO BID [facility] Last Admin: 12/13/17 10:26 Dose: 3.125 mg Furosemide (Lasix) 40 mg IV BID@1000,1800 [facility] Last Admin: 12/13/17 10:29 Dose: 40 mg Isosorbide Mononitrate (Imdur) 30 mg PO DAILY [facility] Last Admin: 12/13/17 10:27 Dose: 30 mg Lisinopril (Zestril) 2.5 mg PO DAILY [facility] Last Admin: 12/13/17 10:27 Dose: 2.5 mg Magnesium Hydroxide (Milk Of Magnesia) 30 ml PO DAILY PRN PRN PRN Reason: Constipation Magnesium Hydroxide (Milk Of Magnesia) 30 ml PO DAILY PRN PRN PRN Reason: Constipation Nitroglycerin (Nitrostat) 0.4 mg SUBLINGUAL PRN PRN PRN Reason: CHEST PAIN Pantoprazole Sodium (Protonix) 20 mg PO DAILY [facility] Last Admin: 12/13/17 10:26 Dose: 20 mg Sodium Chloride () 5 - 30 ml IV UD PRN PRN Reason: SALINE FLUSH Last Admin: 12/13/17 10:29 Dose: 20 ml Warfarin Sodium (Coumadin (Pbkc)) 5 mg PO DAILY@1700 [facility] Medical Necessity - Tobacco Use Smoking Status: Former smoker - quit 40 years ago Tobacco Use: Cigarettes Assessment/Plan Active and Suspected Problems Angina effort (Acute) 71-year-old male with an extensive cardiac history including multiple stents, quadruple bypass, mitral valve replacements, hypertrophic cardiomyopathy and atrial fibrillation. Presents with worsening exertional shortness of breath for a week. He has associated epigastric discomfort but denies obvious chest pain. 1. Worsening shortness of breath, likely due to worsening angina vs Acute heart failure exacerbation vs symptomatic valvular stenosis (mitral vs aortic) * Of breath improved significantly overnight. Has no complaints this morning. * Demented urine output was only 325 mils over 24 hours with negative balance of 85 mils. However patient looks much less overloaded relative to yesterday with edema having improved significantly. * IV Lasix 40 mg twice daily and breathing treatment with albuterol and Atrovent. * Initial troponin was 0.11 and trended up to 0.13 with cycling. * Cardiology consulted. Per discussion with Dr. for this morning, will be a good idea to transfer patient to [facility] because that is where he gets all his cardiac care and will be much better for patient for continuity of care. * spoke to Dr. Violeta Donohue the professor of family medicine clinical implementation specialist at [facility] on phone. She will accept patient will be transferred hospitalist service [facility]. * * 2. CAD s/p stents and CABG * on carvedilol, lisinopril, atorvastatin and aspirin. Will continue * 3. COPD and asthma * Sleep COPD exacerbation improving. Lungs are much better than yesterday. Will continue 5 day course of p.o. prednisone and breathing treatments. * * 4. Afib * on coumadin 5mg daily. INR Is 2. Will continue and monitor INR * 5. GERD * stable. Epigastric discomfort has resolvec * on pantoprazole 20mg daily. * 6. History of valvular insufficiency due to hypertrophic cardiomyopathy s/p mitral valve replacement * patient and confused about whether they were informed recently that the mitral or aortic valve insufficiency is worsening. * being transferred to the care of his professor of family medicine at [facility] * 7. Elevated liver enzymes * bilirubin- 2.2; baseline is ~ 1.5. lipase is normal. AST/ALT-49/64 * CT abdomen showed calcified gallstones on CT scan. However, he has no fever or white cell count * Anderson's sign was negative. * stable. Will monnitor * 8. DVT prophylaxis: on coumadin as mentioned above 9. GI prophylaxis: pantoprazole Disposition: transfer to [facility] This note was generated with [employer] dictation software. It may contain incorrect words, spelling, and punctuation that were not noted in checking the note before signing. Code Visit Inpatient E&M: [id number] [facility] L3
--- NOTE | 2017-12-13 10:51 | PCM.DC.SUM ---
Discharge Date and Diagnosis - Problem List Patient Problems: Active and Suspected Problems Angina effort (Acute) Date of Admission: 12/12/17 Date of Discharge: 12/13/17 - Primary Discharge Diagnosis Active and Suspected Problems Angina effort (Acute) Acute heart failure exacerbation - Secondary Discharge Diagnosis Chronic Problems S/P PTCA (percutaneous transluminal coronary angioplasty) (Chronic) Glucose intolerance (impaired glucose tolerance) (Chronic) Cardiomyopathy (Chronic) Hypertension (Chronic) Status post valve replacement (Chronic) Hyperlipidemia (Chronic) Asthma (Chronic) Status post placement of cardiac pacemaker (Chronic) History of implantable cardiac defibrillator (ICD) (Chronic) Chronic atrial fibrillation (Chronic) Status post coronary artery bypass graft (Chronic) Coronary artery disease (Chronic) Hospital Course and Treatment Imaging Results: Impressions Chest X-Ray 12/12/17 12:22 IMPRESSION: 1. Right-sided airspace disease possibly representing pneumonia. 2. Cardiomegaly and mild pulmonary congestion. Electronically Signed: Arlette Zhang MD at 13:17 EDT , Service support , Chest CTA 12/12/17 13:49 IMPRESSION: 1. No CTA demonstrated pulmonary embolism or arterial dissection. 2. Diffuse interstitial thickening is visible particularly in the right lung and right lung base. Differential considerations include acute and/or chronic infection and/or inflammation. Electronically Signed: Arlette Zhang MD at 14:48 EDT , Service support , 12/12/17 12:22 Chest PA and Lateral [RAD] Stat 12/12/17 13:49 CTA Chest W/WO Contrast [CT] Stat Laboratory Results 12/12/17 12/12/17 12/12/17 Range/Units 11:50 11:50 11:50 WBC 6.0 (4.4-11.0) K/mm3 RBC 5.03 (4.6-6.2) M/mm3 Hgb 14.6 (13.0-16.5) g/dl Hct 42.9 (40-54) % MCV 85.3 (80-94) fL MCH 29.0 (27.0-32.0) pg MCHC 34.0 (32-36) g/gl RDW 14.9 H (11.6-14.6) % RDW Differential 46.1 H (35.1-43.9) fl Plt Count 153 (150-450) K/mm3 MPV 11.7 (6.2-12.0) fl Immature Gran % (Auto) 0.200 (0.0-0.9) % Neut % (Auto) 75.8 H (47-70) % Lymph % (Auto) 12.2 L (19-41) % [place] % (Auto) 10.4 H (0-10) % Eos % (Auto) 1.2 (0-5) % Baso % (Auto) 0.2 (0-1) % Absolute Neuts (auto) 4.5 (2.0-7.7) X10^3/uL Absolute Lymphs (auto) 0.73 L (0.83-4.51) X10^3/ul Total Counted Not Reportable PT (11.7-14.9) SECONDS INR APTT (24.1-36.2) Seconds Sodium 139 (136-145) mmol/L Potassium 3.6 (3.5-5.1) mmol/L Chloride 103 (98-107) mmol/L Carbon Dioxide 30.0 (21.0-32.0) mmol/L Anion Gap 6 (5-15) BUN 19 H (7-18) mg/dL Creatinine 1.30 (0.70-1.30) mg/dL Estim Creat Clear Calc 51.36 ml/min Est GFR (MDRD) Af Amer 70 (>60) mL/min Est GFR (MDRD) Non-Af 58 L (>60) mL/min BUN/Creatinine Ratio 14.6 (10-20) RATIO Glucose 126 H (74-106) mg/dL Calcium 8.6 (8.5-10.1) mg/dL Total Bilirubin 2.20 H (0.20-1.00) mg/dL AST 49 H (15-37) U/L ALT 64 H (16-61) U/L Alkaline Phosphatase 102 (45-117) U/L Troponin I 0.11 H (<0.06) ng/mL B-Natriuretic Peptide 200.5 H (0-100) pg/mL Total Protein 7.7 (6.4-8.2) g/dL Albumin 3.7 (3.2-5.0) g/dL Globulin 4.0 (2.2-4.2) g/dL Albumin/Globulin Ratio 0.9 (0.9-2.4) RATIO Lipase (73-393) U/L POC Glucose (70-110) mg/dL 12/12/17 12/12/17 12/12/17 Range/Units 11:50 11:50 19:30 WBC (4.4-11.0) K/mm3 RBC (4.6-6.2) M/mm3 Hgb (13.0-16.5) g/dl Hct (40-54) % MCV (80-94) fL MCH (27.0-32.0) pg MCHC (32-36) g/gl RDW (11.6-14.6) % RDW Differential (35.1-43.9) fl Plt Count (150-450) K/mm3 MPV (6.2-12.0) fl Immature Gran % (Auto) (0.0-0.9) % Neut % (Auto) (47-70) % Lymph % (Auto) (19-41) % [place] % (Auto) (0-10) % Eos % (Auto) (0-5) % Baso % (Auto) (0-1) % Absolute Neuts (auto) (2.0-7.7) X10^3/uL Absolute Lymphs (auto) (0.83-4.51) X10^3/ul Total Counted PT 22.5 H (11.7-14.9) SECONDS INR 2.0 APTT 53.8 H (24.1-36.2) Seconds Sodium (136-145) mmol/L Potassium (3.5-5.1) mmol/L Chloride (98-107) mmol/L Carbon Dioxide (21.0-32.0) mmol/L Anion Gap (5-15) BUN (7-18) mg/dL Creatinine (0.70-1.30) mg/dL Estim Creat Clear Calc ml/min Est GFR (MDRD) Af Amer (>60) mL/min Est GFR (MDRD) Non-Af (>60) mL/min BUN/Creatinine Ratio (10-20) RATIO Glucose (74-106) mg/dL Calcium (8.5-10.1) mg/dL Total Bilirubin (0.20-1.00) mg/dL AST (15-37) U/L ALT (16-61) U/L Alkaline Phosphatase (45-117) U/L Troponin I 0.13 H (<0.06) ng/mL B-Natriuretic Peptide (0-100) pg/mL Total Protein (6.4-8.2) g/dL Albumin (3.2-5.0) g/dL Globulin (2.2-4.2) g/dL Albumin/Globulin Ratio (0.9-2.4) RATIO Lipase 205 (73-393) U/L POC Glucose (70-110) mg/dL 12/13/1718 12/13/17 Range/Units 01:06 06:14 06:34 WBC (4.4-11.0) K/mm3 RBC (4.6-6.2) M/mm3 Hgb (13.0-16.5) g/dl Hct (40-54) % MCV (80-94) fL MCH (27.0-32.0) pg MCHC (32-36) g/gl RDW (11.6-14.6) % RDW Differential (35.1-43.9) fl Plt Count (150-450) K/mm3 MPV (6.2-12.0) fl Immature Gran % (Auto) (0.0-0.9) % Neut % (Auto) (47-70) % Lymph % (Auto) (19-41) % [place] % (Auto) (0-10) % Eos % (Auto) (0-5) % Baso % (Auto) (0-1) % Absolute Neuts (auto) (2.0-7.7) X10^3/uL Absolute Lymphs (auto) (0.83-4.51) X10^3/ul Total Counted PT (11.7-14.9) SECONDS INR APTT (24.1-36.2) Seconds Sodium 142 (136-145) mmol/L Potassium 3.6 (3.5-5.1) mmol/L Chloride 106 (98-107) mmol/L Carbon Dioxide 29.0 (21.0-32.0) mmol/L Anion Gap 7 (5-15) BUN 19 H (7-18) mg/dL Creatinine 1.06 (0.70-1.30) mg/dL Estim Creat Clear Calc 62.99 ml/min Est GFR (MDRD) Af Amer 88 (>60) mL/min Est GFR (MDRD) Non-Af 73 (>60) mL/min BUN/Creatinine Ratio 17.9 (10-20) RATIO Glucose 94 (74-106) mg/dL Calcium 8.6 (8.5-10.1) mg/dL Total Bilirubin (0.20-1.00) mg/dL AST (15-37) U/L ALT (16-61) U/L Alkaline Phosphatase (45-117) U/L Troponin I 0.13 H (<0.06) ng/mL B-Natriuretic Peptide (0-100) pg/mL Total Protein (6.4-8.2) g/dL Albumin (3.2-5.0) g/dL Globulin (2.2-4.2) g/dL Albumin/Globulin Ratio (0.9-2.4) RATIO Lipase (73-393) U/L POC Glucose 101 (70-110) mg/dL 12/13/17 12/13/17 Range/Units 06:34 06:34 WBC 6.3 (4.4-11.0) K/mm3 RBC 4.79 (4.6-6.2) M/mm3 Hgb 13.5 (13.0-16.5) g/dl Hct 41.2 (40-54) % MCV 86.0 (80-94) fL MCH 28.2 (27.0-32.0) pg MCHC 32.8 (32-36) g/gl RDW 14.9 H (11.6-14.6) % RDW Differential 47.4 H (35.1-43.9) fl Plt Count 128 L (150-450) K/mm3 MPV 10.7 (6.2-12.0) fl Immature Gran % (Auto) 0.200 (0.0-0.9) % Neut % (Auto) 72.8 H (47-70) % Lymph % (Auto) 16.2 L (19-41) % [place] % (Auto) 8.5 (0-10) % Eos % (Auto) 2.1 (0-5) % Baso % (Auto) 0.2 (0-1) % Absolute Neuts (auto) 4.6 (2.0-7.7) X10^3/uL Absolute Lymphs (auto) 1.01 (0.83-4.51) X10^3/ul Total Counted Not Reportable PT (11.7-14.9) SECONDS INR APTT (24.1-36.2) Seconds Sodium (136-145) mmol/L Potassium (3.5-5.1) mmol/L Chloride (98-107) mmol/L Carbon Dioxide (21.0-32.0) mmol/L Anion Gap (5-15) BUN (7-18) mg/dL Creatinine (0.70-1.30) mg/dL Estim Creat Clear Calc ml/min Est GFR (MDRD) Af Amer (>60) mL/min Est GFR (MDRD) Non-Af (>60) mL/min BUN/Creatinine Ratio (10-20) RATIO Glucose (74-106) mg/dL Calcium (8.5-10.1) mg/dL Total Bilirubin (0.20-1.00) mg/dL AST (15-37) U/L ALT (16-61) U/L Alkaline Phosphatase (45-117) U/L Troponin I 0.11 H (<0.06) ng/mL B-Natriuretic Peptide (0-100) pg/mL Total Protein (6.4-8.2) g/dL Albumin (3.2-5.0) g/dL Globulin (2.2-4.2) g/dL Albumin/Globulin Ratio (0.9-2.4) RATIO Lipase (73-393) U/L POC Glucose (70-110) mg/dL cardiology Operations: None Procedures: None Summary of Care Provided: 71-year-old male with an extensive cardiac history of HFrEF (EF of 30%), multiple stents, quadruple bypass in 2006, mitral valve replacement, hypertrophic cardiomyopathy, history of pacemaker and defibrillator and atrial fibrillation. He was admitted on 12/12/2017 with a complaint of exertional shortness of breath with associated epigastric discomfort and use of his albuterol inhaler more frequently than usual. History of COPD and asthma. He managed for worsening shortness of breath likely due to acute exacerbation of heart failure and angina to rule out ACS. Initial troponin was 0.11 and it stayed around 0.11-0.13 with 3 cycles; this was thought to be due to demand ischemia. EKG showed no acute changes; BNPEP was ~ 200. Cardiology was consulted, and decision was made to refer patient to [facility], where he gets all his cardiac care, to ensure continuity of care for patient. 2D echo was ordered, but decision was made to transfer patient to [facility]. Discharge Diet: Low fat/ Low Cholesterol Discharge Activity: Return to Normal Activity May resume sexual activity in: No Restrictions Weight Bearing Status: Weight bearing as tolerated Home Medications: Medications to take at Discharge Albuterol Sulfate [Proair Respiclick] 90 mcg IH Q4H PRN PRN 02/16/17 Aspirin [Aspirin, Baby] 81 mg PO DAILY@0800 02/16/17 Carvedilol [Coreg (Beta Brett)] 3.125 mg PO BID 02/16/17 Fluticasone/Salmeterol [Advair 250/50 Mcg Diskus] 1 puff INHALATION BID 02/16/17 Furosemide [Lasix] 40 mg PO DAILY 02/16/17 Lisinopril [Zestril] 2.5 mg PO DAILY 02/16/17 Nitroglycerin [Nitrostat] 0.4 mg SL PRN PRN 02/16/17 Pantoprazole Sodium 20 mg PO DAILY 02/16/17 Phenobarb/Hyoscy/Atropine/Scop [ Tablet] 16.2 mg PO Q4H PRN PRN 02/16/17 Warfarin Sodium [Coumadin] 5 mg PO DAILY 02/16/17 Atorvastatin Calcium [Lipitor] 40 mg PO QHS 12/12/17 Primary Care Physician: George Mata MD [Primary Care Provider] - Please follow up with your Primary Care Physician in: after discharge from [facility] Patient Instructions: ED Chest Pain NonCardiac Disposition: Acute care Hospital - [facility] Minutes spent on discharge:: 45 Patient Condition:: Good Medical Necessity - Tobacco Use Smoking Status: Former smoker - quit 40 years ago Tobacco Use: Cigarettes Meaningful Use Info Meaningful Use Diagnoses (Choose all that apply): CHF - CHF KATY/ARB ordered at discharge?: Yes Documented LVEF (%): 30 Code Visit Inpatient E&M: 83539 Disch Hosp
--- NOTE | 2017-12-13 10:58 | PCM.DC ---
- Discharge Diagnoses Current Active Problems: Current Active and Chronic Problems Angina effort (Acute) Acute heart failure exacerbation You will use the following diet at home:: Calorie/Carbohydrate Controlled (specify 1200, 1400, etc), Fluid restricted (specify 2000 mls, 1500 mls) Your food should be the consistency of: Regular Your liquids should be the consistency of: Regular/Thin Discharge Activity: Return to Normal Activity May resume sexual activity in: No Restrictions Weight Bearing Status: Weight bearing as tolerated Instructions: ED Chest Pain NonCardiac Allergies/Adverse Reactions: Allergies No Known Allergies Allergy (Verified 04/02/17 11:13) Medications to take at Discharge Albuterol Sulfate [Proair Respiclick] 90 mcg IH Q4H PRN PRN 02/16/17 Aspirin [Aspirin, Baby] 81 mg PO DAILY@0800 02/16/17 Carvedilol [Coreg (Beta Brett)] 3.125 mg PO BID 02/16/17 Fluticasone/Salmeterol [Advair 250/50 Mcg Diskus] 1 puff INHALATION BID 02/16/17 Furosemide [Lasix] 40 mg PO DAILY 02/16/17 Lisinopril [Zestril] 2.5 mg PO DAILY 02/16/17 Nitroglycerin [Nitrostat] 0.4 mg SL PRN PRN 02/16/17 Pantoprazole Sodium 20 mg PO DAILY 02/16/17 Phenobarb/Hyoscy/Atropine/Scop [ Tablet] 16.2 mg PO Q4H PRN PRN 02/16/17 Warfarin Sodium [Coumadin] 5 mg PO DAILY 02/16/17 Atorvastatin Calcium [Lipitor] 40 mg PO QHS 12/12/17 Primary Care Physician: George Mata MD [Primary Care Provider] - Please follow up with your Primary Care Physician in: after discharge from [facility] Proposed Discharge Date: 12/13/17 - transferred to [facility]
[2017-12-13 12:29] LABS: International Normalized Ratio 1.6; Prothrombin Time (Protime)PT. 18.6 SECONDS (11.7-14.9)
--- NOTE | 2017-12-13 12:51 | NURSING ---
report called to mary [phone]
--- NOTE | 2017-12-13 13:00 | NURSING ---
Patient insurance [facility] requires that [facility] transport for nonemergent transfers. [facility] [employer] was called for Mr. Zhang and the response was that there was no availablity for today. [facility] insurance was called and the RN that answered the call attempted to assist with finding out which company should be used for transporting Mr. Zhang to [facility] but after much time searching the website the nurse was unable to give any guidance as to the best transport company to be used in place of [facility]. The patient being admitted with elevated cardiac enzymes and having an extensive history needed to transfer today and [facility] was called.
== END 2017-12-13 13:43 | disposition short-term general hospital (02) | DRG 293 ==
LOC: ED 16:07 → PCU 16:19
PROVIDERS: Admitting Provider Student in an Organized Health Care Education/Training Program; Emergency Provider Emergency Medicine; Family Provider Internal Medicine; PCP Internal Medicine; Visit Provider Student in an Organized Health Care Education/Training Program
DX: I11.0 Hypertensive heart disease with heart failure (principal); I25.118 Atherosclerotic heart disease of native coronary artery with other forms of angina pectoris; I50.33 Acute on chronic diastolic (congestive) heart failure; I42.2 Other hypertrophic cardiomyopathy; I48.2 Chronic atrial fibrillation; I35.8 Other nonrheumatic aortic valve disorders; R74.8 Abnormal levels of other serum enzymes; I34.2 Nonrheumatic mitral (valve) stenosis; E78.5 Hyperlipidemia, unspecified; J44.9 Chronic obstructive pulmonary disease, unspecified; E78.00 Pure hypercholesterolemia, unspecified; E74.39 Other disorders of intestinal carbohydrate absorption; K80.20 Calculus of gallbladder without cholecystitis without obstruction; Z98.61 Coronary angioplasty status; Z95.1 Presence of aortocoronary bypass graft; Z95.2 Presence of prosthetic heart valve; Z95.810 Presence of automatic (implantable) cardiac defibrillator; Z87.891 Personal history of nicotine dependence; Z79.82 Long term (current) use of aspirin; Z79.01 Long term (current) use of anticoagulants; Z79.899 Other long term (current) drug therapy
CPT/HCPCS: 36415; 71046; 71275; 80048; 80053; 82962; 83690; 83880; 84484; 85025; 85610; 85730; 93005; 94640; 99285; Q9967; A4216; J1940

== ENCOUNTER → 2017-12-22 10:52 | Outpatient (CLI) | payer MEDICARE, SELFPAY ==
[2017-12-22 11:12] LABS: International Normalized Ratio 2.2; Prothrombin Time (Protime)PT. 24.5 SECONDS (11.7-14.9)
== END ==
PROVIDERS: Family Provider Internal Medicine; PCP Internal Medicine; Visit Provider Nurse Practitioner
DX: Z79.01 Long term (current) use of anticoagulants (principal)
CPT/HCPCS: 85610

== ENCOUNTER → 2019-03-22 10:53 | Outpatient (CLI) | payer MEDICARE, SELFPAY ==
[2019-03-22 12:04] LABS: Anion Gap 5 (5-15); BUN 17 mg/dL (7-18); Calcium,Total 8.7 mg/dL (8.5-10.1); Chloride 102 mmol/L (98-107); Creatinine, Serum 1.21 mg/dL (0.70-1.30); EST Glomerular Filtration Rate 62 mL/min (>60); Est Glom Filt Rate - Afr Amer 75 mL/min (>60); Glucose 92 mg/dL (74-106); Potassium 3.7 mmol/L (3.5-5.1); Sodium Level 137 mmol/L (136-145)
== END ==
PROVIDERS: Family Provider Internal Medicine; PCP Internal Medicine
DX: R69 Illness, unspecified (principal)
CPT/HCPCS: 36415; 80048

== ENCOUNTER → 2019-04-07 11:01 | Outpatient (CLI) | payer MEDICARE, SELFPAY ==
[2019-04-07 11:51] LABS: ALB/GLOB Ratio 0.8 RATIO (0.9-2.4); AST(SGOT) 59 U/L (15-37); Alanine Aminotransfer ALT/SGPT 65 U/L (16-61); Albumin, Serum 3.3 g/dL (3.2-5.0); Alkaline Phosphatase 144 U/L (45-117); Anion Gap 10 (5-15); BUN 54 mg/dL (7-18); BUN/Creat Ratio 37.8 RATIO (10-20); Calcium,Total 8.7 mg/dL (8.5-10.1); Chloride 77 mmol/L (98-107); Creatinine, Serum 1.43 mg/dL (0.70-1.30); EST Glomerular Filtration Rate 51 mL/min (>60); Est Glom Filt Rate - Afr Amer 62 mL/min (>60); Globulin 4.3 g/dL (2.2-4.2); Glucose 224 mg/dL (74-106); Potassium 3.2 mmol/L (3.5-5.1); Protein, Total 7.6 g/dL (6.4-8.2); Sodium Level 119 mmol/L (136-145)
== END ==
PROVIDERS: Family Provider Internal Medicine; PCP Internal Medicine
DX: E87.6 Hypokalemia (principal); E87.1 Hypo-osmolality and hyponatremia
CPT/HCPCS: 36415; 80053

== ENCOUNTER → 2019-04-12 09:46 | Outpatient (CLI) | payer MEDICARE, SELFPAY ==
[2017-12-12 16:33] VITALS: BMI 27.4
[2019-04-12 11:22] LABS: Anion Gap 7 (5-15); BUN 31 mg/dL (7-18); BUN/Creat Ratio 24.8 RATIO (10-20); Chloride 96 mmol/L (98-107); Creatinine, Serum 1.25 mg/dL (0.70-1.30); EST Glomerular Filtration Rate 60 mL/min (>60); Est Glom Filt Rate - Afr Amer 73 mL/min (>60); Glucose 89 mg/dL (74-106); Potassium 5.3 mmol/L (3.5-5.1); Sodium Level 131 mmol/L (136-145)
== END ==
PROVIDERS: Family Provider Internal Medicine; PCP Internal Medicine
DX: E87.1 Hypo-osmolality and hyponatremia (principal)
CPT/HCPCS: 36415; 80048

== ENCOUNTER → 2019-09-07 11:37 | Outpatient (CLI) | payer MEDICARE, SELFPAY ==
[2019-09-07 12:48] LABS: Anion Gap 6 (5-15); BUN 31 mg/dL (7-18); BUN/Creat Ratio 21.2 RATIO (10-20); Calcium,Total 8.8 mg/dL (8.5-10.1); Chloride 103 mmol/L (98-107); Creatinine, Serum 1.46 mg/dL (0.70-1.30); EST Glomerular Filtration Rate 50 mL/min (>60); Est Glom Filt Rate - Afr Amer 61 mL/min (>60); Glucose 213 mg/dL (74-106); Sodium Level 135 mmol/L (136-145)
== END ==
LOC: LAB.FUTURE 11:40 → LAB 11:45
PROVIDERS: PCP Internal Medicine; Referring Provider Internal Medicine Interventional Cardiology; Visit Provider Internal Medicine Interventional Cardiology
DX: I50.9 Heart failure, unspecified (principal)
CPT/HCPCS: 36415; 80048

== ENCOUNTER 2020-10-11 15:57 | Outpatient (RCR) | payer MEDICARE, SELFPAY ==
[2017-12-12 16:33] VITALS: BMI 27.4
[2020-10-11] MEDS: COVID-19 VACC, MRNA(PFIZER)/PF 30 MCG/0.3 ML SYRINGE IM (09:59)
[2020-11-01] MEDS: COVID-19 VACC, MRNA(PFIZER)/PF 30 MCG/0.3 ML SYRINGE IM (09:40)
== END 2020-10-11 23:59 ==
LOC: IMMUN 15:57
PROVIDERS: PCP Internal Medicine; Referring Provider Family Medicine; Visit Provider Family Medicine
DX: Z23 Encounter for immunization (principal)
CPT/HCPCS: 0001A; 0002A

== ENCOUNTER 2021-01-21 12:36 | Emergency (ER) | payer MEDICARE, SELFPAY ==
[2021-01-21 12:37] VITALS: BP 99/63; PULSE 70; RESP 18; TEMP 37; O2SAT 97; BMI 25.8
--- NOTE | 2021-01-21 12:53 | EX.ED.DYSGE1 ---
HPI History of Present Illness Chief Complaint: Cellulitis Informant: patient Narrative Narrative: 75-year-old male states several days ago he sustained a cut on his left forearm while mowing the lawn. He states now he has erythema of the forearm and some mild swelling. It extends up to the level of the supracondylar area. He denies any fevers. He denies any pain. He notes his hand feels normal. He went to urgent care and they asked him to come here for further evaluation PFSH [facility] Home Medications albuterol sulfate [ProAir RespiClick] 90 mcg IH Q4H PRN PRN 02/16/17 [History Last Taken 02/15/17] aspirin 81 mg PO DAILY@0800 02/16/17 [History Last Taken 04/01/17] carvedilol 3.125 mg PO BID 02/16/17 [History Last Taken 04/03/17 06:00] fluticasone propion-salmeterol [Advair Diskus] 1 puff INHALATION BID 02/16/17 [History Last Taken 02/16/17] furosemide 40 mg PO DAILY 02/16/17 [History Last Taken 02/16/17] lisinopril 2.5 mg PO DAILY 02/16/17 [History Last Taken 04/03/17 06:00] nitroglycerin [Nitrostat] 0.4 mg SUBLINGUAL PRN PRN 02/16/17 [History Last Taken Unknown] pantoprazole 20 mg PO DAILY 02/16/17 [History Last Taken 04/03/17 06:00] qncdhcbug-mfsmlh-yvfmslqw-scop [] 16.2 mg PO Q4H PRN PRN 02/16/17 [History Last Taken Unknown] warfarin [Coumadin] 5 mg PO DAILY 02/16/17 [History Last Taken 03/30/17] atorvastatin 40 mg PO QHS 12/12/17 [History Last Taken Unknown] cephalexin 500 mg PO Q6 #40 capsule 01/21/21 [Rx Last Taken Unknown] Allergy/AdvReac Type Severity Reaction Status Date / Time No Known Allergies Allergy Verified 01/21/21 12:39 Social History (Updated 01/21/21 @ 12:[address] Hunter Brock, DO) Smoking Status: Former smoker substance use type: does not use ROS ROS ED Constitutional Constitutional ED: Denies chills or weight loss Eyes Eyes: Denies change in vision or diplopia ENT ENT ED: Denies ear pain, rhinorrhea or sore throat Cardiovascular Cardiovascular: Denies chest pain, orthopnea, palpitations or racing heartbeat Respiratory/Chest Respiratory/Chest: Denies cough, dyspnea or orthopnea Gastrointestinal Gastrointestinal: Denies abdominal pain, diarrhea, nausea or vomiting Genitourinary Genitourinary ED: Denies dysuria, hematuria or urinary frequency Musculoskeletal Musculoskeletal: Denies arthralgias or myalgias Integumentary Reports Abrasions and rash; Denies abscess Neurologic Neurologic: Denies headache(s) or weakness Psychiatric Psychiatric: Denies anxiety, depression, suicidal ideation or suicidal thoughts Endocrine Endocrinology: Denies polydipsia, polyphagia or polyuria Allergic/Immunologic Allergic/Immunologic ED: Denies mouth swelling, tongue swelling or urticaria EXAM Physical Exam Const Vital Signs: 01/21/21 12:37 Temperature 98.6 F Temperature Source Temporal Pulse Rate 70 Respiratory Rate 18 Blood Pressure 99/63 Blood Pressure Mean 75 Pulse Ox 97 Oxygen Delivery Method Room Air Positive well nourished and well developed General Appearance ED: well developed HEENT Reports normocephalic, head/scalp atraumatic and moist mucous membranes Eyes PERRL and EOMs intact bilaterally Neck no lymphadenopathy, supple and no JVD Resp normal respiratory effort and clear to auscultation bilaterally Cardio regular rate, regular rhythm and no murmurs GI normal to inspection, nondistended, normoactive bowel sounds and non-tender Palpation: soft Back/Spine no CVA tenderness and normal ROM Extremity Extremity Narrative: There is mild swelling of the left forearm. The hand appears normal. There is a healing abrasion to the posterior lateral left forearm. There is erythema of the forearm circumferential more pronounced over the medial aspect to the supracondylar region. There is no lymphangitic streaking. General Extremety ED: Negative for edema General Extremity: Negative for edema Neuro oriented x3 and CN's II-XII intact bilaterally Sensorium / Orientation: alert Motor Exam: strength 5/5 throughout Psych mental status grossly normal Mood & Affect: Negative for depressed or tearful Skin no rashes or lesions noted and no wounds MDM MDM MDM Narrative Medical decision making narrative: Blood cultures were obtained. Patient will be started on Keflex. He was advised he may need to be hospitalized for this. He understood understands our plan is comfortable with it. Discharge Plan Triage Chief Complaint: Cellulitis ED Provider: Hunter Brock Dx/Rx/DC Orders Clinical Impression: Cellulitis of forearm, left Instructions: Cellulitis Prescriptions: New cephalexin [cephalexin] 500 MG capsule 500 mg PO Q6 Qty: 40 RF: 0 No Action furosemide 40 MG tablet 40 mg PO DAILY RF: 0 fluticasone propion-salmeterol [Advair Diskus] 1 PUFF inhaler 1 puff inhalation BID RF: 0 carvedilol 3.125 MG tablet 3.125 mg PO BID RF: 0 pantoprazole 20 MG tablet,delayed release (DR/EC) 20 mg PO DAILY RF: 0 warfarin [Coumadin] 5 MG tablet 5 mg PO DAILY RF: 0 nitroglycerin [Nitrostat] 0.4 MG tablet, sublingual 0.4 mg sublingual PRN PRN (Reason: CHEST PAIN) RF: 0 aspirin 81 MG tablet,chewable 81 mg PO DAILY@0800 RF: 0 kpbwozykw-sepnjq-fbbbsmvu-scop [] 16.2 MG tablet 16.2 mg PO Q4H PRN PRN (Reason: Diarrhea) RF: 0 lisinopril 2.5 MG tablet 2.5 mg PO DAILY RF: 0 albuterol sulfate [ProAir RespiClick] 90 MCG aerosol powdr breath activated 90 mcg IH Q4H PRN PRN (Reason: Sob &/Or Wheezing) RF: 0 atorvastatin 40 MG tablet 40 mg PO QHS RF: 0 Primary Care Provider: George Mata Referrals: George Mata MD [Primary Care Provider] - 3-5 Days if not improving Disposition Disposition: Home, self care
[2021-01-21 14:10] VITALS: RESP 18
[2021-01-21 14:15] VITALS: BP 99/63; PULSE 70; RESP 18; TEMP 37; O2SAT 97
== END 2021-01-21 14:16 | disposition home or self-care (01) ==
LOC: ED 13:02
PROVIDERS: Emergency Provider Emergency Medicine; PCP Internal Medicine
DX: L03.114 Cellulitis of left upper limb (principal); S50.812A Abrasion of left forearm, initial encounter; W45.8XXA Other foreign body or object entering through skin, initial encounter; Y93.H2 Activity, gardening and landscaping; Y92.9 Unspecified place or not applicable; Y99.9 Unspecified external cause status; Z79.01 Long term (current) use of anticoagulants; Z79.82 Long term (current) use of aspirin; Z79.899 Other long term (current) drug therapy; Z79.51 Long term (current) use of inhaled steroids; Z87.891 Personal history of nicotine dependence
CPT/HCPCS: 87040; 99282

== ENCOUNTER → 2021-04-16 12:00 | Outpatient (CLI) | payer MEDICARE, SELFPAY ==
--- NOTE | 2021-04-16 12:03 | RAD_ITS ---
STUDY: X-RAY - PELVIS AND RIGHT HIP REASON FOR EXAM: Male, 75 years old. Hip pain. TECHNIQUE: 3 views of the pelvis and hip. COMPARISON: None. FINDINGS: There is a non-specific bowel gas pattern. Phleboliths and vascular calcifications. Osteopenia. Mild arthrosis of the sacroiliac joints and symphysis pubis. Moderate arthrosis of the right hip with small osteophytes. Mild arthrosis of the left hip. RAD/HIP, UNI W/ Pelvis 2-3 Views IMPRESSION: Osteopenia with osteoarthritic changes of the sacroiliac joints, symphysis pubis and both hips, right greater than left. No acute abnormality, erosive changes or periostitis. Electronically Signed: Clifford Wells MD at 14:02 EDT , Service support ,
== END ==
PROVIDERS: PCP Internal Medicine; Referring Provider Anesthesiology Pain Medicine; Visit Provider Anesthesiology Pain Medicine
DX: M16.11 Unilateral primary osteoarthritis, right hip (principal)
CPT/HCPCS: 73502

== ENCOUNTER 2021-05-06 10:42 | Day surgery (SDC) | payer MEDICARE, SELFPAY ==
[2021-05-06 11:01] LABS: INR Fingerstick 1.2; Prothrombin Time Fingerstick 14.1 SEC (11.9-14.4)
[2021-05-06 11:12] VITALS: BP 119/74; PULSE 69; RESP 18; TEMP 36.4; O2SAT 98; BMI 25.8
[2021-05-06] MEDS: Lactated Ringers 1,000 ML 100 ML IV (11:25)
--- NOTE | 2021-05-06 11:56 | PCM.HP.BLA ---
History and Physical Date of Admission: 05/06/21 Bessy Zhang is a 75 year old male who is scheduled at the request of George Mata for Procedure (EGD and colonoscopy). My final recommendations will be communicated back to the requesting physician by the way of the shared medical record, fax, or via US Mail ? ? The patient was seen by Dr.Robert Magallon?for Colonoscopy and EGD 04/03/2017 for personal history of colon polyps and history of Sawyer's esophagus. ?The procedures were performed with MAC sedation. The procedure report has been reviewed and findings as follows: ? EGD impression: Minimal antral edema. Small hiatal hernia. No current evidence of Sawyer's. Antral and distal esophageal biopsies pending Colonoscopy impression: Sessile polyp at the splenic flexure of the colon. Minimal sigmoid diverticulosis. No evidence of acute inflammatory change. ? ? HISTORY OF PRESENT ILLNESS Bessy Zhang is a 75 year old male esophageal reflux, irritable bowel syndrome, colon polyps, Sawyer's esophagus, diverticulosis, interstitial lung disease, cardiovascular disease,CHF, ventricular tachycardia, status post AICD, aortic valve stenosis 2018(on coumadin), and CKD Last ECHO 2018 EF 40-45% ? Who presents today for an evaluation of colon cancer screening and sawyer's surveillance ? The patient denies change in bowel habits, rectal bleeding or abdominal pain. Having a bowel movement daily ? Currently patient denies trouble swallowing, heartburn, regurgitation or indigestion. ? Usually has dinner: 5:30 Evening snack: at times will wake up and eat grapes Bedtime medications: yes Heads to bed: 9:30 Sleeps in a regular bed with the head of the bed on his side ? ? SOB when walking fast or with weather changes. Wheezing when mowing ? ? REVIEW OF SYSTEMS: GENERAL: No weight loss, malaise or fevers HEENT: Negative for frequent or significant headaches, No changes in hearing or vision, no nose bleeds or other nasal problems NECK: Negative for lumps, goiter, pain and significant neck swelling RESPIRATORY: Negative for cough, hemoptysis, wheezing, COPD, dyspnea or shortness of breath, SOB with walking fast (not new) CARDIOVASCULAR: Negative for chest pain, leg swelling, hypertension, CHF or palpitations GI: SEE HPI : No history of dysuria, frequency or incontinence MUSCULOSKELETAL: Negative for joint pain or swelling, back pain or muscle pain SKIN: Negative for lesions, rash, and itching PSYCH: Negative for sleep disturbance, mood disorder and recent psychosocial stressors. HEMATOLOGY/LYMPHOLOGY Negative for prolonged bleeding, bruising easily or swollen nodes ENDOCRINE: Negative for cold or heat intolerance, polyuria, polydipsia and goiter NEURO: No history of headaches, syncope, paralysis, seizures or tremors All other reviewed and negative other than HPI. PAST MEDICAL HISTORY PAST MEDICAL HISTORY Diagnosis Date ? Aortic valve stenosis 01/06/2018 ? Sawyer's esophagus 09/10/2012 ? CKD (chronic kidney disease) stage 3, GFR 30-59 ml/min ([facility]) 01/29/2019 ? Colon polyp 07/26/2010 ? Diverticulosis 07/26/2010 ? Dizziness and giddiness ? ? Esophageal reflux ? ? Interstitial lung disease ([facility]) 03/25/2013 ? Agus Negron MD, [facility] ? Irritable bowel syndrome 06/22/2007 ? Postsurgical aortocoronary bypass status 06/22/2007 ? Pure hypercholesterolemia ? ? Status post implantation of automatic cardioverter/defibrillator (AICD) 06/17/2013 ? Status post mitral valve replacement 06/17/2013 ? Unspecified cardiovascular disease ? ? Unspecified essential hypertension ? ? Ventricular tachycardia (HCC) 06/17/2013 ? PAST SURGICAL HISTORY PAST SURGICAL HISTORY Procedure Laterality Date ? AICD, DUAL CHAMBER ? 10/29/2015 ? dual lead AICD ? APPENDECTOMY ? 1993 ? CABG, ARTERY-VEIN, FOUR ? 04/29/2007 ? CABG, quadruple grafts ? CARDIAC CATH ? 12/16/2017 ? Alex ? CARDIAC CATH ? 12/14/2018 ? Right & Left ? COLONOSCOPY & POLYPECTOMY ? 04/03/2017 ? COLONOSCOPY W/BX ? 07/26/2010 ? Diminutive polyp of sigmoid/diverticulosis ? COLONOSCOPY W/BX ? 09/10/2012 ? CORONARY STENT EA VESSEL ? 02/12/2018 ? BS synergy RCA ? EGD W/ BIOPSY SNGL/MLTPL ? 04/03/2017 ? [facility] ? EGD W/O BRSH SPECIMEN W/BX ? 09/10/2012 ? INSERT/REPL DEFIB LEAD/GENER OTHR ? 06/10/2013 ? AICD ? LEFT HEART CATH,PERCUTANEOUS ? 05/03/2012 ? Cardiac cath, L heart ? LEFT HEART CATH,PERCUTANEOUS ? 04/27/2013 ? Cardiac cath, L heart ? LEFT HEART CATH,PERCUTANEOUS ? 10/07/2015 ? OP BRONCHOS DIAG, W/WO WASHING ? 02/04/2013 ? BRONCHOSCOPY ? PAST SURGICAL HISTORY OF ? 09/17/2020 ? Right Cataract removed ? REPLACEMENT OF MITRAL VALVE ? 05/17/2013 ? Mitral valve replacement, IABP ? TRANSCATH STENT INIT VESSEL,PERCUT ? 1996 ? 3 PTCAs and stents. 1995 & 1996 ? TRANSCATH STENT INIT VESSEL,PERCUT ? 05/02/2009 ? Transcath stent init vessel percut ? CURRENT MEDICATIONS Current Outpatient Medications Medication Sig Dispense Refill ? pmhnoxgfm-whwdib-hvvwpkqv-scop () 16.2-0.1037 -0.0194 mg per tablet Take 1 tablet by mouth every 6 hours as needed. 240 tablet 0 ? potassium chloride (KLOR-CON 10) 10 mEq tablet Take 1 tablet by mouth once daily. 90 tablet 1 ? warfarin (COUMADIN) 5 mg tablet 5 mg every Mon, Wed, Thu,Sat; 2.5 mg all other days 90 tablet 1 ? fluticasone-salmeterol (ADVAIR DISKUS) 100-50 mcg/dose Inhale 1 Puff as instructed twice daily. Rinse mouth out after use with water. 1 Inhaler 11 ? albuterol HFA (VENTOLIN HFA) 90 mcg/actuation inhaler USE 2 INHALATIONS 4 TIMES A DAY IF NEEDED 18 g 5 ? atorvastatin (LIPITOR) 40 mg tablet Take 1 tablet by mouth once daily. 90 tablet 3 ? pantoprazole DR (PROTONIX) 20 mg tablet Take 1 tablet by mouth daily before breakfast. Take on empty stomach, 1/2 hr before meal. 90 tablet 3 ? sacubitril-valsartan (ENTRESTO) 24-26 mg tablet 1/2 tablet in AM. 1 tablet in PM. ? ? ? nitroglycerin sublingual (NITROSTAT) 0.4 mg SL tablet Dissolve 1 tablet under the tongue as needed. DISSOLVE ON TONGUE FOR CHEST PAIN. IF NO PAIN RELIEF, CALL 911 25 tablet 3 ? spironolactone (ALDACTONE) 25 mg tablet Take 25 mg by mouth once daily. ? ? ? LOW-DOSE ASPIRIN ORAL Take 1 tablet by mouth once daily. ? ? ? carvedilol (COREG) 3.125 mg tablet Take 1 tablet by mouth twice daily ? ? ? predniSONE (DELTASONE) 10 mg tablet TAKE BY MOUTH 4 TABLETS DAILY FOR 2 DAYS, THEN 3 TABLETS DAILY FOR 2 DAYS, THEN 2 TABLETS DAILY FOR 2 DAYS, THEN 1 TABLET DAILY FOR 2 DAYS. 20 tablet 0 ? bumetanide (BUMEX) 1 mg tablet Take 1 mg by mouth twice daily. Patient taking as needed. ? blood sugar diagnostic (BLOOD GLUCOSE TEST) test strip Test blood sugar(s) one times daily. Dx: Type 2 DM - Controlled E11.9 Insulin: No 50 Strip 11 ? Blood-Glucose Meter monitoring kit Glucose Meter of Choice - Kit - Dx: Type 2 DM - Controlled E11.9 1 Each 0 ? No current facility-administered medications for this visit. ? ? ALLERGIES ALLERGIES No Known Allergies ? SOCIAL HISTORY Social History ? Tobacco Use ? Smoking status: Former Smoker ? ? Types: Pipe ? ? Quit date: 08/10/1969 ? ? Years since quittin.5 ? Smokeless tobacco: Current User ? ? Types: Snuff ? Tobacco comment: Chews tobacco 2 boxes per week since . Vaping Use ? Vaping Use: Never used Substance Use Topics ? Alcohol use: No ? Drug use: No ? ? FAMILY HISTORY (grandparents, parents, brothers, sisters, aunts, or uncles) Ulcerative Colitis: No Crohn's Disease: No Colon Cancer: No Colon Polyps: Yes IBS: No Celiac disease: No ? PHYSICAL EXAMINATION BP 86/50 Pulse 69 Ht 5' 9.488 (1.77m) Wt 178 lb (80.7kg) SpO2 98% BMI 25.92 kg/(m^2). ? General Appearance: Well appearing, alert, in no acute distress, well-hydrated, well nourished. Eyes: PERRLA, conjunctiva and sclera normal Oropharynx: Lips, tongue, and oral mucosa normal. There is no thrush or oral ulcers. Lungs:breath sounds clear to auscultation bilaterally, no crackles, rhonchi, or wheezes Heart: regular rate and rhythm, no murmurs or gallops. Abdomen: not distended, normal bowel sounds, soft and depressible, no guarding or rebound, no palpable mass, no organomegaly Rectal exam: Deferred. Extremities: no cyanosis or edema Skin: no jaundice, no spider angiomas, no palmar erythema Neuro:alert, oriented x 3, pleasant and in no acute distress ? ? IMPRESSION (Z87.19) History of Sawyer's esophagus (primary encounter diagnosis) (Z12.11) Screening for colon cancer ? ? PLAN ASSESSMENT/PLAN: 1. History of Sawyer's esophagus - ICD9: V12.79, ICD10: Z87.19 (primary diagnosis) ? - PEG 3350-ELECTROLYTES 236 GRAM-22.74 GRAM-6.74 GRAM-5.86 GRAM SOLUTION - EGD GEN ANES ? 2. Screening for colon cancer - ICD9: V76.51, ICD10: Z12.11 - PEG 3350-ELECTROLYTES 236 GRAM-22.74 GRAM-6.74 GRAM-5.86 GRAM SOLUTION - COLONOSCOPY GEN ANES ? 3. Adenomatous polyp of colon, unspecified part of colon - ICD9: 211.3, ICD10: D12.6 - COLONOSCOPY GEN ANES ? - Will need cardiac clearance before scheduling colonoscopy and EGD ? ? Plan is to follow up after test(s) and as needed (prn). The patient will be scheduled for an upper endoscopy as well as a colonoscopy. Preparation for the procedures, using GoLytely as the laxative, have been explained in detail. The risks, benefits, anticipated outcomes and possible complications were mentioned, including including failure to complete the endoscopy and perforation. I explained the procedure in understandable terms and the patient was given printed material concerning the planned procedure. The patient had the opportunity to ask questions concerning the planned procedure. The patient freely consents to the planned procedure. ? The patient is instructed to contact PCP for instructions regarding diabetic medication, which may require adjustment during bowel preparation and/or day of procedure. ? The patient is scheduled for a procedure at the [facility]. I have explained that his/her health and safety, as well as that of our staff is important. The risk of exposure to, or potential harm posed by the COVID-19 virus with having a procedure at this time is as minimal as possible. Measures are being taken to minimize any potential risk of infection. I have explained that he/she will see that the staff will be wearing masks and gloves. The patient's temperature will be taken on arrival, they will be asked a series of questions to reassess current wellness, and asked to use hand attorney recruiter foam. The bed areas are cleaned and the procedure rooms are thoroughly disinfected between patients. Procedure rooms will be alternated to give the disinfection more than enough time to ensure adequate protection for all involved. ? The patient is encouraged to call with any questions or concerns, or should there be any change in health status between now and the scheduled procedure. ? I have personally interviewed and examined this patient. I have read the information that the nurse documented in this encounter. I spent 30 minutes in the visit, with more than 50% of the total [id number] time of the visit in counseling / coordination of care. ? Agata Szymanski APRN.SYSTEMS DEVELOPMENT CONSULTANT I have re-examined the patient. There are no clinical changes since date of exam.
[2021-05-06 12:46] VITALS: BP 119/74; BP 97/59; PULSE 71; RESP 16; TEMP 36.3; O2SAT 96
--- NOTE | 2021-05-06 12:47 | OP.EGD_ITS ---
Patient Name: Bessy Zhang Procedure Date: 05/06/2021 12:12 PM Date of : 1945 Age: 75 Procedure: Upper GI endoscopy Indications: Follow-up of Byers's esophagus Providers: Hunter Morgan MD Medicines: See the Anesthesia note for documentation of the administered medications Patient Profile: This is a 75 year old male. Refer to note in patient chart for documentation of history and physical. Complications: No immediate complications. Estimated blood loss: None. Procedure: Pre-Anesthesia Assessment: - Prior to the procedure, a History and Physical was performed, and patient medications and allergies were reviewed. The patient's tolerance of previous anesthesia was also reviewed. The risks and benefits of the procedure and the sedation options and risks were discussed with the patient. All questions were answered, and informed consent was obtained. Prior Anticoagulants: The patient has taken Coumadin (warfarin), last dose was 5 days prior to procedure. ASA Grade Assessment: III - A patient with severe systemic disease. After reviewing the risks and benefits, the patient was deemed in satisfactory condition to undergo the procedure. After obtaining informed consent, the endoscope was passed under direct vision. Throughout the procedure, the patient's blood pressure, pulse, and oxygen saturations were monitored continuously. The Endoscope was introduced through the mouth, and advanced to the second part of duodenum. The upper GI endoscopy was accomplished without difficulty. The patient tolerated the procedure well. Scope In: 12:24:39 PM Scope Out: 12:27:25 PM Total Procedure Duration Time 0 hours 2 minutes 46 seconds Findings: The examined esophagus was normal. No biopsies or other specimens were collected for this exam. The entire examined stomach was normal. No biopsies or other specimens were collected for this exam. The examined duodenum was normal. No biopsies or other specimens were collected for this exam. Impression: - Normal esophagus. No specimens collected. - Normal stomach. No specimens collected. - Normal examined duodenum. No specimens collected. Recommendation: - Discharge patient to home. - Resume previous diet. - Continue present medications. - Repeat upper endoscopy is not recommended for surveillance. - Return to nurse practitioner in 1 week. Angela Szymanski Procedure Code(s): --- Professional --- 74922, Esophagogastroduodenoscopy, flexible, transoral; diagnostic, including collection of specimen(s) by brushing or washing, when performed (separate procedure) Diagnosis Code(s): --- Professional --- K22.70, Byers's esophagus without dysplasia CPT copyright 2017 [employer]. All rights reserved. The codes documented in this report are preliminary and upon waiter/waitress economy class review may be revised to meet current compliance requirements. MD Hunter Turcios MD 05/06/2021 12:46:43 PM This report has been signed electronically. Number of Addenda: 0 Note Initiated On: 05/06/2021 12:12 PM
--- NOTE | 2021-05-06 12:47 | OP.CCLET_ITS ---
05/06/2021 George Mata [address] [place] [address] Re : Upper GI endoscopy procedure for Bessy Zhang Dear Dr. Mata This procedure was performed on Thursday, May 06, 2021. My impressions and recommendations are as follows: Impressions : - Normal esophagus. No specimens collected. - Normal stomach. No specimens collected. - Normal examined duodenum. No specimens collected. Recommendations : - Discharge patient to home. - Resume previous diet. - Continue present medications. - Repeat upper endoscopy is not recommended for surveillance. - Return to nurse practitioner in 1 week. Angela Szymanski My findings are described in the full procedure note, which is enclosed. If I can be of further assistance, please feel free to contact me at Doctor phone number(s): , Work: . Sincerely, MD Hunter Turcios MD 05/06/2021 12:46:43 PM This report has been signed electronically.
--- NOTE | 2021-05-06 12:49 | OP.COLON_ITS ---
Patient Name: Bessy Zhang Procedure Date: 05/06/2021 12:28 PM Date of : 1945 Age: 75 Procedure: Colonoscopy Indications: High risk colon cancer surveillance: Personal history of colonic polyps Providers: Hunter Morgan MD Medicines: See the Anesthesia note for documentation of the administered medications Patient Profile: This is a 75 year old male. Refer to note in patient chart for documentation of history and physical. Last Colonoscopy: 2016. Complications: No immediate complications. Estimated blood loss: None. Procedure: Pre-Anesthesia Assessment: - Prior to the procedure, a History and Physical was performed, and patient medications and allergies were reviewed. The patient's tolerance of previous anesthesia was also reviewed. The risks and benefits of the procedure and the sedation options and risks were discussed with the patient. All questions were answered, and informed consent was obtained. Prior Anticoagulants: The patient has taken Coumadin (warfarin), last dose was 5 days prior to procedure. ASA Grade Assessment: III - A patient with severe systemic disease. After reviewing the risks and benefits, the patient was deemed in satisfactory condition to undergo the procedure. After I obtained informed consent, the scope was passed under direct vision. Throughout the procedure, the patient's blood pressure, pulse, and oxygen saturations were monitored continuously. The colonoscope was introduced through the anus and advanced to the cecum, identified by appendiceal orifice and ileocecal valve. The colonoscopy was performed without difficulty. The patient tolerated the procedure well. The quality of the bowel preparation was good. Scope In: 12:30:00 PM Scope Withdrawal Time 0 hours 6 minutes 11 seconds Scope Out: 12:39:07 PM Total Procedure Duration Time 0 hours 9 minutes 7 seconds Findings: A few small-mouthed diverticula were found in the sigmoid colon. No biopsies or other specimens were collected for this exam. No biopsies or other specimens were collected for this exam. Non-bleeding internal hemorrhoids were found during retroflexion. The hemorrhoids were mild and medium-sized. The exam was otherwise without abnormality. Impression: - Diverticulosis in the sigmoid colon. No specimens collected. - Non-bleeding internal hemorrhoids. - The examination was otherwise normal. Recommendation: - Discharge patient to home. - Resume previous diet. - Continue present medications. - Repeat colonoscopy in 10 years for screening purposes. - Return to nurse practitioner in 1 week. Procedure Code(s): --- Professional --- 07193, Colonoscopy, flexible; diagnostic, including collection of specimen(s) by brushing or washing, when performed (separate procedure) Diagnosis Code(s): --- Professional --- Z86.010, Personal history of colonic polyps K64.8, Other hemorrhoids K57.30, Diverticulosis of large intestine without perforation or abscess without bleeding CPT copyright 2017 [employer]. All rights reserved. The codes documented in this report are preliminary and upon social media campaign manager review may be revised to meet current compliance requirements. MD Hunter Turcios MD 05/06/2021 12:49:10 PM This report has been signed electronically. Number of Addenda: 0 Note Initiated On: 05/06/2021 12:28 PM
[2021-05-06 12:50] VITALS: BP 119/74; BP 88/63; PULSE 70; RESP 16
--- NOTE | 2021-05-06 12:50 | OP.CCLET_ITS ---
05/06/2021 George Mata [address] [place] [address] Re : Colonoscopy procedure for Bessy Zhang Dear Dr. Mata This procedure was performed on Thursday, May 06, 2021. My impressions and recommendations are as follows: Impressions : - Diverticulosis in the sigmoid colon. No specimens collected. - Non-bleeding internal hemorrhoids. - The examination was otherwise normal. Recommendations : - Discharge patient to home. - Resume previous diet. - Continue present medications. - Repeat colonoscopy in 10 years for screening purposes. - Return to nurse practitioner in 1 week. My findings are described in the full procedure note, which is enclosed. If I can be of further assistance, please feel free to contact me at Doctor phone number(s): , Work: . Sincerely, MD Hunter Turcios MD 05/06/2021 12:49:10 PM This report has been signed electronically.
[2021-05-06 12:57] VITALS: BP 119/74; BP 94/66; PULSE 71; RESP 16; O2SAT 98
[2021-05-06 12:58] VITALS: BP 111/69; BP 119/74; PULSE 73; RESP 16; TEMP 36.1; O2SAT 98
[2021-05-06 13:25] VITALS: BP 119/74
== END 2021-05-06 13:39 | disposition home or self-care (01) ==
LOC: EN 10:43 → AC 10:45
PROVIDERS: PCP Internal Medicine; Referring Provider Internal Medicine; Visit Provider Surgery
PROC: 0DJD8ZZ Inspection of Lower Intestinal Tract, Via Natural or Artificial Opening Endoscopic (ICD-10-PCS; CPT 45378; principal; 2021-05-06 11:55)
DX: Z12.11 Encounter for screening for malignant neoplasm of colon (principal); D12.6 Benign neoplasm of colon, unspecified; K57.30 Diverticulosis of large intestine without perforation or abscess without bleeding; K64.8 Other hemorrhoids; K21.9 Gastro-esophageal reflux disease without esophagitis; K58.9 Irritable bowel syndrome, unspecified; I25.10 Atherosclerotic heart disease of native coronary artery without angina pectoris; I13.0 Hypertensive heart and chronic kidney disease with heart failure and stage 1 through stage 4 chronic kidney disease, or unspecified chronic kidney disease; I50.9 Heart failure, unspecified; N18.30 Chronic kidney disease, stage 3 unspecified; I35.0 Nonrheumatic aortic (valve) stenosis; I25.2 Old myocardial infarction; E11.22 Type 2 diabetes mellitus with diabetic chronic kidney disease; E78.00 Pure hypercholesterolemia, unspecified; J44.9 Chronic obstructive pulmonary disease, unspecified; M19.90 Unspecified osteoarthritis, unspecified site; F17.220 Nicotine dependence, chewing tobacco, uncomplicated; Z95.1 Presence of aortocoronary bypass graft; Z95.5 Presence of coronary angioplasty implant and graft; Z95.810 Presence of automatic (implantable) cardiac defibrillator; Z79.01 Long term (current) use of anticoagulants; Z79.899 Other long term (current) drug therapy; Z79.82 Long term (current) use of aspirin; Z86.010 Personal history of colon polyps; Z87.19 Personal history of other diseases of the digestive system
CPT/HCPCS: 43235; G0105; 36416; 85610; J7120; J2405

== ENCOUNTER → 2021-05-30 13:44 | Outpatient (CLI) | payer MEDICARE, SELFPAY ==
--- NOTE | 2021-05-30 14:09 | CT_ITS ---
HISTORY: Asthma. TECHNIQUE: Helically acquired images were obtained of the chest without contrast. A radiation dose optimization technique was used for this scan. # of images incl. paperwork: [id number]. COMPARISON: 12/12/2017. FINDINGS: LARGE AIRWAYS: Clear. LUNGS: Chronic reticular scarring in the periphery of the lungs, right greater than left. Mild dependent atelectasis. PLEURA: No pleural effusion. HEART AND PERICARDIUM: Moderate cardiomegaly with pacemaker defibrillator and midline sternotomy again seen. Interval aortic valve replacement and atrial septal device. No pericardial effusion. VESSELS: Thoracic aorta nondilated. MEDIASTINUM AND NUNO: Borderline enlarged right paratracheal lymph node again seen. UPPER ABDOMEN: Unremarkable. BONES: Degenerative change. CT/Chest without Contrast IMPRESSION: No acute abnormality identified in the chest. Chronic interstitial changes in the lungs, likely mild scarring and fibrosis. Cardiomegaly with pacemaker defibrillator and interval aortic valve replacement. Individualized dose optimization techniques were used for this CT. at 1126 Reported and signed by: Laura Vivas MD Electronically Signed: Laura Vivas MD at 11:25 EDT Tel , Service support ,
== END ==
PROVIDERS: PCP Internal Medicine
DX: J45.40 Moderate persistent asthma, uncomplicated (principal)
CPT/HCPCS: 71250

== ENCOUNTER → 2023-06-17 | Outpatient (CLI) | payer MEDICARE, SELFPAY ==
--- NOTE | 2023-06-17 09:03 | ART_ITS ---
Reason For Study: PVD Procedure A bilateral lower extremity continuous wave Doppler with analog waveform analysis and ankle brachial indexes. Left Segmental Pressures Left brachial= 93mmHg. Left posterior tibial artery = >254mmHg. Left dorsalis pedis artery = >254mmHg. Left digit = 60 mmHg. The left dorsalis pedis waveforms are triphasic. The left posterior tibial artery waveforms are triphasic. Right Segmental Pressures Right brachial= 89mmHg. Right posterior tibial artery = >254mmHg. Right dorsalis pedis artery = >254mmHg. Right digit = 58 mmHg. The right dorsalis pedis waveforms are triphasic. The right posterior tibial artery waveforms are triphasic. Indices The right ankle brachial index by the dorsalis pedis is NC. The right ankle brachial index by the posterior tibial artery is NC. The right digital-brachial index is 0.62. The left ankle brachial index by the dorsalis pedis is NC. The left ankle brachial index by the posterior tibial artery is NC. The left digital-brachial index is 0.65. VL/Ankle Brachial Index Interpretation Summary ilateral mild disease legs with triphasic flow and noncompressible. Digits 0.62 and 0.65. Ordering Physician: Hilario Pierce Referring Physician: George Mata M.D. Performed By: Monica Mcginnis RVT
--- NOTE | 2023-06-17 09:03 | ADU_ITS ---
Reason For Study: PVD Right Velocities Left Velocities Ext. Iliac Artery, dist = 72.6 cm./sec. Ext Iliac Artery, dist = 53.8 cm./sec. Common Femoral Artery, mid = 89.3 cm./sec. Common Femoral Artery, mid = 50.4 cm./sec. Supf Femoral Artery, prox = 63.7 cm./sec. Supf. Femoral Artery, prox = 59.2 cm./sec. Supf Femoral Artery, mid = 56.4 cm./sec. Supf. Femoral Artery, mid = 60.3 cm./sec. Supf Femoral Artery, dist. = 76 cm./sec. Supf. Femoral Artery, dist = 57 cm./sec. Profunda Femoral Artery = 71.1 cm./sec. Profunda Femoral Artery = 72.4 cm./sec. Popliteal Artery, mid = 61.3 cm./sec. Popliteal Artery, proximal, = 85.7 cm./sec. Post. Tibial Artery, prox = 57.6 cm./sec. Post. Tibial Artery, prox = 30.4 cm./sec. Post. Tibial Artery, mid = 58.8 cm./sec. Post Tibial Artery, mid = 47 cm./sec. Post. Tibial Artery, dist = 91.1 cm./sec. Post Tibial Artery, dist. = 50.5 cm./sec. Peroneal Artery, prox = 36.7 cm./sec. Peroneal Artery, prox = 37.4 cm./sec. Peroneal Artery, mid = 20.7 cm./sec. Peroneal Artery, mid = 66 cm./sec. Peroneal Artery,dist = 42.4 cm./sec. Peroneal Artery,dist. = 49 cm./sec. Ant. Tibial Artery, prox = 46.2 cm./sec. Ant.Tibial Artery, prox = 52.8 cm./sec. Ant. Tibial Artery, mid = 67.9 cm./sec. Ant Tibial Artery, mid = 131.3 cm./sec. Ant. Tibial Artery, dist = 47.1 cm./sec. Ant. Tibial Artery, distal = 71.1 cm./sec. /US Art Duplex Bilat Lower Ext Interpretation Summary Bilateral no stenosis and triphasic flow throughout. Ordering Physician: Hilario Pierce Referring Physician: George Mata M.D. Performed By: Monica Mcginnis RVT
== END | disposition home or self-care (01) ==
LOC: CVS 09:01
PROVIDERS: PCP Internal Medicine; Referring Provider Surgery Vascular Surgery; Visit Provider Surgery Vascular Surgery
DX: I70.213 Atherosclerosis of native arteries of extremities with intermittent claudication, bilateral legs (principal)
CPT/HCPCS: 93922; 93925

== ENCOUNTER → 2023-11-18 | Outpatient (CLI) | payer MEDICARE, SELFPAY ==
--- NOTE | 2023-11-18 13:47 | CT_ITS ---
STUDY: CT LUMBAR SPINE WITHOUT CONTRAST REASON FOR EXAM: Male, 77 years old. M54.17 RADIATION DOSAGE (If Supplied By Facility): CTDIvol = ( 26.19 ) mGy, DLP = ( 761.49 ) mGycm TECHNIQUE: The patient was scanned in a multi detector CT scanner. High resolution transaxial imaging was performed. Images were obtained from to . Sagittal and coronal images were reconstructed. Individualized dose optimization techniques were used for this CT. COMPARISON: None FINDINGS: Normal lumbar lordosis. There is no substantial scoliosis. Normal vertebrae of the lumbar spine. L1-2: Normal endplates. Normal disc height and morphology. Normal bilateral facet joints. Normal central canal and bilateral lateral recesses. Normal bilateral intervertebral neural foramina. L2-3: Mild spurring at the endplates. Normal disc height and morphology. Normal bilateral facet joints. Normal central canal and bilateral lateral recesses. Normal bilateral intervertebral neural foramina. L3-4: Mild spurring at the endplates. Normal disc height with mild annular bulge. Normal bilateral facet joints. Normal central canal and bilateral lateral recesses. Bulging disc slightly narrowing the bilateral intervertebral neural foramina. L4-5: Mild spurring at the endplates. Normal disc height with slight posterior disc protrusion. Degenerative hypertrophy of the bilateral facet joints with vacuum phenomena. Normal central canal and bilateral lateral recesses. Facet hypertrophy and degenerative spurring slightly narrowing the bilateral intervertebral neural foramina. L5-S1: Mild spurring at the endplates. Normal disc height with vacuum phenomena. Possible small central disc herniation. Mild degenerative hypertrophy of the bilateral facet joints. Normal central canal and bilateral lateral recesses. Normal bilateral intervertebral neural foramina. Normal visualized paraspinous soft tissue structures. 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 Correlate with MRI if needed. Electronically Signed: Jacobo Banda DO at 17:09 EDT ,
== END | disposition home or self-care (01) ==
LOC: CT 13:45
PROVIDERS: PCP Internal Medicine; Referring Provider Anesthesiology Pain Medicine; Visit Provider Anesthesiology Pain Medicine
DX: M54.17 Radiculopathy, lumbosacral region (principal)
CPT/HCPCS: 72131

== ENCOUNTER → 2023-12-29 | Outpatient (CLI) | payer MEDICARE, SELFPAY ==
[2023-12-29 11:53] LABS: International Normalized Ratio 1.3; Prothrombin Time (Protime)PT. 15.8 SECONDS (11.7-14.9)
== END | disposition home or self-care (01) ==
LOC: LAB 10:52
PROVIDERS: PCP Internal Medicine; Referring Provider Clinical Nurse Specialist Adult Health; Visit Provider Clinical Nurse Specialist Adult Health
DX: Z51.81 Encounter for therapeutic drug level monitoring (principal); Z79.01 Long term (current) use of anticoagulants
CPT/HCPCS: 36415; 85610

== ENCOUNTER → 2024-10-17 | Outpatient (CLI) | payer MEDICARE, SELFPAY ==
--- NOTE | 2024-10-17 12:43 | ART_ITS ---
Reason For Study Reason For Study: Atherosclerosis Procedure A bilateral lower extremity continuous wave Doppler with analog waveform analysis and ankle brachial indexes. Left Segmental Pressures Left brachial= 111mmHg. Left posterior tibial artery = >254mmHg. Left dorsalis pedis artery = >254mmHg. Left digit = 72 mmHg. The left dorsalis pedis waveforms are biphasic. The left posterior tibial artery waveforms are triphasic. Right Segmental Pressures Right brachial= 100mmHg. Right posterior tibial artery = >254mmHg. Right dorsalis pedis artery = >254mmHg. Right digit = 72 mmHg. The right dorsalis pedis waveforms are triphasic. The right posterior tibial artery waveforms are triphasic. Indices The right ankle brachial index by the dorsalis pedis is NC. The right ankle brachial index by the posterior tibial artery is NC. The right digital-brachial index is 0.65. The left ankle brachial index by the dorsalis pedis is NC. The left ankle brachial index by the posterior tibial artery is NC. The left digital-brachial index is 0.65. VL/Ankle Brachial Index Interpretation Summary Bilateral noncompressible and bilateral triphasic flow. Ordering Physician: Stan^Hilario^Leodan^^ Referring Physician: George Mata M.D. Performed By: Monica Mcginnis RVT and Student
== END | disposition home or self-care (01) ==
LOC: CVS 12:42
PROVIDERS: PCP Internal Medicine; Referring Provider Surgery Vascular Surgery; Visit Provider Surgery Vascular Surgery
DX: I70.213 Atherosclerosis of native arteries of extremities with intermittent claudication, bilateral legs (principal); I10 Essential (primary) hypertension
CPT/HCPCS: 93922

== ENCOUNTER → 2024-12-16 | Outpatient (CLI) | payer MEDICARE, SELFPAY ==
[2024-12-16 12:18] LABS: PTHIN 169 pg/mL (11-61)
[2024-12-16 12:26] LABS: Albumin, Serum 3.8 g/dL (3.4-4.8); Anion Gap 11 (5-15); BUN 45 mg/dL (4-19); BUN/Creat Ratio 29.9 RATIO (10-20); Calcium,Total 9.2 mg/dL (7.6-11.0); Carbon Dioxide 23.5 mmol/L (21.0-32.0); Chloride 103 mmol/L (98-108); Creatinine, Serum 1.49 mg/dL (0.70-1.20); EST Glomerular Filtration Rate 47 (>60); Glucose 227 mg/dL (70-99); Phosphorus 2.9 mg/dL (2.7-4.5); Potassium 4.7 mmol/L (3.3-5.1); Sodium Level 137 mmol/L (133-145); Vitamin D,25 Hydroxy 18.7 ng/mL (30-100)
== END | disposition home or self-care (01) ==
LOC: LAB 10:40
PROVIDERS: PCP Internal Medicine; Referring Provider Internal Medicine Nephrology; Visit Provider Internal Medicine Nephrology
DX: N17.9 Acute kidney failure, unspecified (principal)
CPT/HCPCS: 36415; 80069; 82306; 83970

== ENCOUNTER 2025-03-04 11:16 | Inpatient (IN) | payer MEDICARE, SELFPAY ==
[2025-03-04] VITALS (16 sets, daily range): BP systolic 106–131; BP diastolic 69–90; PULSE 66–73; RESP 12–20; TEMP 36.4–37.1; O2SAT 95–100; BMI 27.6; BMI 27.1
--- NOTE | 2025-03-04 11:33 | EX.ED.DYSGE1 ---
HPI History of Present Illness Chief Complaint: Edema [facility] Medical History Wears hearing aid Wears glasses Wears dentures Anxiety History of steroid therapy Diabetes Arthritis High cholesterol Back pain Syncope History of IBS Gastric reflux Former smoker Asthma COPD (chronic obstructive pulmonary disease) Hoarseness Shortness of breath on exertion History of pain when walking History of echocardiogram History of stress test Hypertension Cardiology follow-up encounter History of CHF (congestive heart failure) History of heart attack History of atrial fibrillation Hx of fracture of ankle Hx of cardiac pacemaker Home Medications ?Medication ?Instructions ?Recorded ?Last Taken ?Type albuterol sulfate 90 mcg/actuation 90 mcg IH Q4H PRN PRN Sob &/Or 02/16/17 02/15/17 History breath activated powder inhaler Wheezing (ProAir RespiClick) aspirin 81 mg chewable tablet 81 mg PO DAILY@0800 BLOD THINNER 02/16/17 04/01/17 History fluticasone 250 mcg-salmeterol 50 1 puff inhalation BID ASTHMA/COPD 02/16/17 02/16/17 History mcg/dose blistr powdr for inhalation (Advair Diskus) nitroglycerin 0.4 mg sublingual 0.4 mg sublingual PRN PRN CHEST 02/16/17 Unknown History tablet (Nitrostat) PAIN pantoprazole 20 mg tablet,delayed 20 mg PO DAILY ACID REFLUX 02/16/17 05/06/21 05:00 History release oqwfxiioe-wzbzvaocb-zsatnkvv-scop 16.2 mg PO Q4H PRN PRN Diarrhea 02/16/17 Unknown History 16.2 mg-0.1037 mg-0.0194 mg tablet () warfarin 5 mg tablet (Coumadin) 2.5 mg PO SUTUWETHSA AFIB 02/16/17 03/30/17 History atorvastatin 40 mg tablet 40 mg PO QHS HIGH CHOLESTEROL 12/12/17 Unknown History bumetanide 1 mg tablet 1 mg PO QODAY 05/02/21 Unknown History sacubitril 24 mg-valsartan 26 mg 0.5 tab PO DAILY 05/02/21 05/06/21 05:00 History tablet (Entresto) sacubitril 24 mg-valsartan 26 mg 1 tab PO QHS 09/23/21 Unknown History tablet (Entresto) warfarin 5 mg tablet 5 mg PO MOFR 05/02/21 Unknown History ciprofloxacin HCl 250 mg tablet 250 mg PO BID 03/04/25 Unknown History metoprolol succinate 25 mg 25 mg PO DAILY 03/04/25 Unknown History tablet,extended release 24 hr Allergy/AdvReac Type Severity Reaction Status Date / Time No Known Allergies Allergy Verified 03/04/25 11:20 Family History no significant family his Surgical History Hx of aortic valve replacement History of cardiac catheterization Hx of appendectomy Hx of heart artery stent Hx of mitral valve replacement History of quadruple bypass Hx of colonoscopy History of esophagogastroduodenoscopy (EGD) Social History Smoking Status: Current some day smoker tobacco type: cigarettes and smokeless tobacco substance use type: does not use EXAM Physical Exam Const Vital Signs: 03/04/25 11:17 03/04/25 11:28 03/04/25 12:10 Temperature 97.7 F L Temperature Source Oral Pulse Rate 70 Respiratory Rate 18 Respiratory Effort Normal Short of Breath Respiratory Pattern Normal Blood Pressure 111/85 H Blood Pressure Mean 93 Pulse Ox 99 Oxygen Delivery Method Room Air Room Air 03/04/25 13:17 03/04/25 14:59 03/04/25 15:00 Temperature Temperature Source Pulse Rate 69 70 71 Respiratory Rate 16 15 Respiratory Effort Respiratory Pattern Blood Pressure 106/69 115/73 Blood Pressure Mean 81 87 Pulse Ox 98 99 Oxygen Delivery Method Room Air Room Air 03/04/25 15:00 03/04/25 15:15 03/04/25 15:30 Temperature Temperature Source Pulse Rate 70 72 70 Respiratory Rate 15 14 12 Respiratory Effort Respiratory Pattern Blood Pressure 115/73 114/72 107/78 Blood Pressure Mean 86 86 88 Pulse Ox Oxygen Delivery Method 03/04/25 15:45 03/04/25 16:00 03/04/25 16:15 Temperature Temperature Source Pulse Rate 71 69 72 Respiratory Rate 15 17 16 Respiratory Effort Respiratory Pattern Blood Pressure 109/71 109/77 112/88 H Blood Pressure Mean 84 88 96 Pulse Ox Oxygen Delivery Method 03/04/25 16:30 03/04/25 16:45 03/04/25 17:00 Temperature Temperature Source Pulse Rate 66 70 72 Respiratory Rate 20 H 18 16 Respiratory Effort Respiratory Pattern Blood Pressure 122/76 H 107/73 110/77 Blood Pressure Mean 90 84 87 Pulse Ox Oxygen Delivery Method [facility] Narrative Medical decision making narrative: HISTORY OF PRESENT ILLNESS: Chief complaint: Edema 79-year-old male history of A-fib (on warfarin), CAD, hyperlipidemia, cardiomyopathy presents with bilateral leg swelling. Notes recent pacemaker defibrillator placement. Denies history of blood clots. No shortness of breath slightly better after pacemaker replacement defibrillator placement. Notes he has gained approximately 2 to 3 pounds the last several days. Notes he initiated his home Bumex treatment which is 1 mg daily for weight gain greater than 3 pounds in 3 days. Notes he took 2 doses yesterday but he still has swelling. Denies chest pain. Denies syncope. REVIEW OF SYSTEMS: Pertinent positives: Leg swelling Pertinent negatives: Worsening dyspnea, cough, fever, chills, hemoptysis PHYSICAL EXAM: Nursing triage notes reviewed, Vital signs reviewed Constitutional: please see mdm HENT: MMM Eyes: Pupils equal round and reactive to light, Extraocular muscles intact Neck: No stridor, no JVD, full neck ROM Lungs: Clear to auscultation, No wheezing or rales. No increased work of breathing, no conversational dyspnea, no accessory muscle use, no nasal flaring. No respiratory distress noted Heart: Regular rate and rhythm, No murmurs, No rubs and No gallops, 2+ distal pulses (radial, femoral, posterior tibial) in all extremities Abdomen: Soft, there is no tenderness, rigidity, rebound or guarding, no obvious peritoneal signs, no palpable pulsatile abdominal masses, no auscultated abdominal bruit : No CVAT Extremities: 2-3+ bilateral lower extremity edema Neuro: No new focal neurological deficits, cranial nerves II through XII intact, 5/5 strength in all present extremities. Intact sensation to light touch in all present extremities, 2+ reflexes bilateral patella tendons. Skin: No rash or lesions noted MEDICAL DECISION MAKING: Chief Complaint: please see HPI External records reviewed: Reviewed paperwork from [facility] for recent ICD placement and pacemaker replacement. Factors affecting care: As per HPI Social determinants of health: none History obtained from others: and child Consults: cardiology at [facility] spoke with Dr. Lacy agreed to admit to [facility] stepdown [facility] Narrative: The patient was initially hemodynamically stable, afebrile and nontoxic-appearing. Exam was 2-3+ bilateral lower extremity edema I considered the following differential diagnosis: CHF exacerbation, DVT, pneumonia, ACS, arrhythmia, anemia I obtained a broad lab and imaging workup to further determine if the patient was suffering from a life-threatening etiology. ALL IMAGES (IF OBTAINED) HAVE BEEN PERSONALLY REVIEWED AND INTERPRETED BY MYSELF. EKG with ventricular paced rhythm, severe right axis deviation, prolonged QTc at 523, no obvious ischemic changes. Similar morphology compared to prior EKG from 12/2017 INR subtherapeutic CBC with no leukocytosis, mild worsening anemia with a hemoglobin 11.1 (baseline of 13), noted thrombocytopenia that is mild and improving from baseline BMP without significant electrolyte abnormalities, no evidence of metabolic acidosis or endorgan hypoperfusion with a normal bicarb and anion gap. There is slight renal insufficiency with a creatinine of 1.75 (baseline of 1.4) Initial troponin elevated consistent with myocardial ischemia, given no chest pain or significant EKG changes likely demand ischemia secondary versus postop or perioperative troponin leak from recent pacemaker placement BNP elevated consistent with volume overload Chest x-ray was read and reviewed by myself shows cardiomegaly, pacemaker Given signs of volume overload, signs of type II NSTEMI, symptoms of shortness of breath, recent surgery and multiple medical comorbidities I doubt the patient be best served with hospitalization for IV diuresis and close cardiopulmonary, renal, electrolyte and volume monitoring. Discussed with [facility] who accepted the patient for admission. 1800 Awaiting transfer. The patient and/or family, caregivers express understanding. The patient and/or family, caregivers agrees with the plan. Shared decision making: I will have a discussion with the patient and or visitors regarding risk/benefits of further testing or admission. They will be made aware of of the risk/benefits inherent in this decision they will be given the opportunity to voice understanding. Total critical care time today provided was at least 0 minutes. This excludes separately billable procedures. Critical care time (if documented) is secondary to the patient having high probability of clinically significant/life threatening deterioration in the patient's condition which required my urgent intervention. Impression: 1. Dyspnea 2. Lower extremity edema 3. CHF exacerbation 4. NSTEMI Dispo: Transfer This note was generated with Lotedaation software. It may contain incorrect words, spelling, and punctuation that were not noted in review of the chart prior to signing. Lab Data Labs: Laboratory Results - last 24 hr 03/04/25 03/04/25 03/04/25 11:30 13:58 15:40 WBC 7.7 RBC 3.96 L Hgb 11.1 L Hct 34.9 L MCV 88.1 MCH 28.0 MCHC 31.8 L RDW Std Deviation 54.9 H RDW Coeff of Drew 17.2 H Plt Count 140 L MPV 10.5 Immature Gran % (Auto) 0.300 Neut % (Auto) 77.0 H Lymph % (Auto) 9.[address] % (Auto) 11.3 H Eos % (Auto) 1.9 Baso % (Auto) 0.5 Absolute Neuts (auto) 5.9 Absolute Lymphs (auto) 0.69 L Nucleated RBC % 0 PT 19.4 H INR 1.6 Sodium 139 Potassium 3.7 Chloride 100 Carbon Dioxide 24.0 Anion Gap 15 BUN 41 H Creatinine 1.75 H Estim Creat Clear Calc 33.67 L Est GFR (MDRD) Non-Af 39 L BUN/Creatinine Ratio 23.2 H Glucose 118 H Calcium 9.5 Magnesium 2.4 H Troponin T High Sens 122 H* Troponin T Hi Sens 2 Hr 99 H* Troponin T Hi Sens 4Hr 101 H* NT pro BNP II 2790 H Radiography Diagnostic Testing: Clinical Impression(s) from Imaging Studies Chest X-Ray 03/04/25 12:10 IMPRESSION: Pulmonary findings as above. Reading Location: [facility] Discharge Plan Triage Chief Complaint: Edema ED Provider: Nash Orosco Dx/Rx/DC Orders Prescriptions: No Action fluticasone propion-salmeterol [Advair Diskus] 1 PUFF inhaler 1 puff inhalation BID Patient Comments: SOB pantoprazole 20 MG tablet,delayed release (DR/EC) 20 mg PO DAILY Patient Comments: GERD warfarin [Coumadin] 5 MG tablet 2.5 mg PO SUTUWETHSA Patient Comments: ANTICOAGULANT nitroglycerin [Nitrostat] 0.4 MG tablet, sublingual 0.4 mg sublingual PRN PRN (Reason: CHEST PAIN) Patient Comments: CHEST PAIN aspirin 81 MG tablet,chewable 81 mg PO DAILY@0800 Patient Comments: [facility] wvaexhsry-jlbhxv-mugvmekf-scop [] 16.2 MG tablet 16.2 mg PO Q4H PRN PRN (Reason: Diarrhea) Patient Comments: DIARRHEA ProAir RespiClick 90 MCG aerosol powdr breath activated 90 mcg IH Q4H PRN PRN (Reason: Sob &/Or Wheezing) Patient Comments: SOB atorvastatin 40 MG tablet 40 mg PO QHS warfarin 5 mg Tablet 5 mg PO MOFR bumetanide 1 mg Tablet 1 mg PO QODAY Entresto 24-26 mg Tablet 0.5 tab PO DAILY Entresto 24-26 mg Tablet 1 tab PO QHS ciprofloxacin HCl 250 mg tablet 250 mg PO BID metoprolol succinate 25 mg tablet extended release 24 hr 25 mg PO DAILY Primary Care Provider: George Mata Referrals: George Mata MD [Primary Care Provider] - Print Language: Cymraes
--- OUTSIDE RECORDS SUMMARY | 2025-03-04 11:45 | XMS RPT_ITS | CCD ---
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 Name Role Phone Madisyn Lieberman Unavailable Unavailable Naun PONCE, Kaveh Camp Unavailable Johnson, RN, Gladys Parrish Unavailable Unavailable QUE Ornelas, Gladys Parrish Unavailable Unavailable DR GEORGE MATA MD Primary Care Physician ( [phone] George Mata MD Primary Care Provider Consultants, [facility] Unavailable 13, Pharmacist Unavailable George Mata MD Primary Care Provider Consultants, [facility] Unavailable 13, Pharmacist Unavailable Consult[facility], [facility] Unavailable George Mata MD Primary Care Provider Consultants, [facility] Unavailable 13, Pharmacist Unavailable DR GEORGE MATA MD Primary Care Physician [phone] George Mata MD Primary Care Provider STALIN PONCE, BRIONNA Lee Attending Unavailable DR GEORGE MATA MD Primary Care Unavaila corby Blue APRN.TURBOGENERATOR OPERATOR, Paola M Unavailable Dr. George Mata MD Primary Care Provider Dr. Faizan Pierce MD Attending Provider Dr. Faizan Pierce MD Referring Provider Dr. Mackenzie Iverson DO Attending Provider [phone] Dr. Mackenzie Iverson DO Referring Provider [phone] George Mata Primary Care Unavailable Sol Glez Attending Unavailable Sol Glez Referring Unavailable George Mata Primary Care Unavailable Faizan Pierce Attending Unavailable Faizan Pierce Referring Unavailable Mackenzie Iverson Attending Unavailable Geroge Mata Primary Care Unavailable Mackenzie Iverson Attending Unavailable Mackenzie Iverson Referring Unavailable George Mata Primary Care Unavailable MIN PONCE, DR BAJWA Primary Care Unavailjie ROSE MD, GATITO RAZA Attending Unavailable MAUDE PONCE, VERONIQUE Alcocer Attending Unavailable MIN PONCE, DR BAJWA Primary Care Unavailjie TOUSSAINT MD, VERONIQUE Alcocer Attending Unavailable MIN PONCE, DR BAJWA Primary Care Unavailjie BEE DO, RASHEEDA Craven Consulting Franc ESPINOSA MD, ANTHONY Patel Consulting Unavailfrance MATA MD, DR BAJWA Primary Care Unavailjie GANT MD, BRIONNA Lee Attending Unavailable MAUDE PONCE, VERONIQUE Alcocer Attending Unavailable MIN PONCE, DR BAJWA Primary Care Unavailjie MATA MD, DR BAJWA Primary Care Unavailjie GANT MD, BRIONNA Lee Consulting Unavailable KEYANA PONCE, DR GONZALEZ Admitting Unavailab Lawanda PONCE, DR GONZALEZ Attending Unavailab Michelle PONCE, ARIELLE Consulting Unavailable CE PONCE, Dr REAVES Consulting Unavailable KEYANA PONCE, DR GONZALEZ Consulting UnavailGEORGE Kelley Attending Unavailable GEORGE MATA Primary Care Unavailable GEORGE MATA Attending Unavailable GEORGE MATA Primary Care Unavailable GEORGE MATA Attending Unavailable GEORGE MATA Primary Care Unavailable GEORGE MATA Attending Unavailable GEORGE MATA Primary Care Unavailable GEORGE MATA Referring Unavailable GEORGE MATA Primary Care Unavailable GEORGE MATA Primary Care Unavailable Medications Current Medications Medication Drug Class(es) Dates Sig (Normalized) Sig (Original) acetaminophen 325 mg oral tablet (14 sources) Start: 12-31-2024 Tylenol 325 mg oral tablet Dose : 650 mg = 2 tab(s), Oral, q4h, PRN as needed for pain Start Date: 12/31/24 Status: Ordered Repeat number: 1 Start: 12-31-2024 take 2 tablets by mo uth every four hours as needed acetaminophen (TYLENOL) 325 mg tablet Take 650 mg by mouth every 4 hours as needed. 12/31/2024 Active [id number] 200 actuat albuterol 0.09 mg/actuat metered dose inhaler (20 sources) beta2-Adrenergic Agonist Start: 08-20-2020 End: 11-01-2024 albuterol HFA (VENTOLIN HFA) 90 mcg/actuation inhaler Indications: Asthma, moderate persistent, well-controlled (HCC) USE 2 INHALATIONS 4 TIMES A DAY IF NEEDED 18 g 5 11/01/2024 Active Start: 02-16-2017 Albuterol Sulf ate (Proair Respiclick) 90 MCG aerosol powdr breath activated Active 90 ug IH EVERY 4 HOURS NEEDED as needed for Sob &/Or Wheezing February 16, 2017 12:00am Start: 10-04-2015 take 2 puff(s) by in halation four times daily as needed for wheezing Ventolin HFA MDI (90 mcg/inh) inhalation aerosol 2 puff(s), Inhalation, QID, PRN as needed for wheezing, 0 Refill(s) Start Date: 10/04/15 Status: Ordered Repeat number: 1 Start: 10-04-2015 take 2 puff(s) by in halation four times daily as needed for wheezing Ventolin HFA MDI (90 mcg/inh) inhalation aerosol 2 puff(s), Inhalation, QID, PRN as needed for wheezing, # 18 grams, 0 Refill(s) Start Date: 10/04/15 Status: Ordered Quantity: 18.0 Unit: grams Repeat number: 1 Start: 10-04-2015 take 2 puff(s) by in halation four times daily as needed for wheezing Ventolin HFA MDI (90 mcg/inh) inhalation aerosol 2 puff(s), Inhalation, QID, PRN as needed for wheezing, # 18 grams, 0 Refill(s) Start Date: 10/04/15 Status: Ordered Comment on above: USE 2 INHALATIONS 4 TIMES A DAY IF NEEDED allopurinol 100 mg oral tablet (1 source) Xanthine Oxidase Inhibitor Start: 04-27-20 20 allopurinol 100 mg oral tablet Dose : 200 mg = 2 tab(s), Oral, qDay, # 60 tab(s), 0 Refill(s) Start Date: 04/27/20 Status: Ordered amoxicillin 875 mg oral tablet (2 sources) Penicillin-class Antibacterial Start: 11-10-19 End: 11-17-19 take 1 tablet by mouth twice daily amoxicillin (AMOXIL) 875 mg tablet Indications: Sinobronchitis Take 1 tablet by mouth two times a day for 7 days. 14 tablet 0 11/10/2023 11/17/2023 Active Comment on above: Take 1 tablet by mando th two times a day for 7 days. aspirin 81 mg delayed release oral tablet (17 sources) Nonsteroidal Anti-inflammatory Drug Start: 12-24-19 aspirin 81 mg oral delayed release tablet Dose : 81 mg = 1 tab(s), Oral, qAM, 0 Refill(s) Start Date: 12/23/18 Status: Ordered Repeat number: 1 Start: 12-23-2018 aspirin 81 mg oral delayed release tablet Dose : 81 mg = 1 tab(s), Oral, Daily, 0 Refill(s) Start Date: 12/23/18 Status: Ordered Start: 03-25-2017 take 1 tablet by mando th once daily ADULT ASPIRIN EC LOW STRENGTH 81 MG TBEC One tablet by mouth daily ASPIRIN [id number] Kaveh Magallon MD Start: 02-16-2017 take 1 tablet by mando th once daily Aspirin 81 MG tablet,chewable Active 81 mg PO DAILY@0800 February 16, 2017 12:00am atorvastatin 40 mg oral tablet (20 sources) HMG-CoA Reductase Inhibitor Start: 12-12-2017 End: 08-09-2024 take 1 tablet by mouth once daily atorvastatin (LIPITOR) 40 mg tablet Indications: Pure hypercholesterolemia Take 1 tablet by mouth once daily. 90 tablet 3 08/09/2024 Active Start: 03-25-2017 ATORVASTATIN C ALCIUM 20 MG TABS ATORVASTATIN CALCIUM [id number] Kaveh Magallon MD Comment on above: Take 1 tablet by mando th once daily. atropine sulfate 0.0194 mg / hyoscyamine sulfate 0.1037 mg / PHENobarbital 16.2 mg / scopolamine hydrobromide 0.0065 mg oral tablet (20 sources) Anticholinergic, Cholinergic Muscarinic Antagonist Start: 3 End: take 1 tablet by mouth every six hours as needed pxzqixpuh-pjcwuh-sq ropine-scop () 16.2-0.1037 -0.0194 mg per tablet Indications: Irritable bowel syndrome, unspecified type Take 1 tablet by mouth every 6 hours as needed. 240 tablet 11/17/2024 Active Start: 01-17-2021 End: 06-19-2022 take 1 tablet by mouth every six hours as needed idtumojql-ezhodm-hlmpsgtv-scop ( ) 16.2-0.1037 -0.0194 mg per tablet Indications: Irritable bowel syndrome, unspecified type Take 1 tablet by mouth every 6 hours as needed. 240 tablet 01/17/2021 11/28/2021 Discontinued Start: 02-16-2017 take 1 tablet by mando th every four hours as needed for diarrhea Lvofwkvgl-Celojb-Zyzbldgv-Scop ( ) 16.2 MG tablet Active 16.2 mg PO EVERY 4 HOURS NEEDED as needed for Diarrhea February 16, 2017 12:00am Comment on above: Take 1 tablet by mando th every 6 hours as needed. benzonatate 100 mg oral capsule (3 sources) Non-narcotic Antitussive Start: 11-10-19 End: 11-17-19 take 1 capsule by mouth three times daily as needed for cough benzonatate (TESSALON PERLES) 100 mg capsule Indications: Sinobronchitis Take 1 capsule by mouth three times a day as needed for cough for up to 7 days. 21 capsule 0 11/10/2023 11/17/2023 Active Start: 03-20-2021 End: 07-19-2021 take 1 capsule by mouth every eight hours as needed Benzonatate 200 mg capsule Take 1 capsule by mouth three times daily as needed. 21 capsule 03/20/2021 07/19/2021 Discontinued Comment on above: Take 1 capsule by mo uth three times a day as needed for cough for up to 7 days. Blood-Glucose Meter monitoring kit (20 sources) Start: 09-17-2016 Blood-Glucose Meter monitoring kit Indications: Controlled type 2 diabetes mellitus without complication, without long-term current use of insulin ([facility]) Glucose Meter of Choice - Kit - Dx: Type 2 DM - Controlled E11.9 1 Each 09/17/2016 Active Start: 09-17-2016 Blood-Glucose Meter monitoring kit Indications: Controlled type 2 diabetes mellitus without complication, without long-term current use of insulin (HCC) Glucose Meter of Choice - Kit - Dx: Type 2 DM - Controlled E11.9 1 Each 0 09/17/2016 Active Comment on above: Glucose Meter of Cho ice - Kit - Dx: Type 2 DM - Controlled E11.9 bumetanide 1 mg oral tablet (20 sources) Loop Diuretic Start: 08-09-2024 End: 12-30-2025 bumetanide (BUMEX) 1 mg tablet Indications: Chronic systolic heart failure (HCC) Take 1 tablet by mouth once daily as needed (weight gain 3 pounds). Or as directed for weight gain, fluid retention. 01/10/2025 Active Start: 05-02-2021 End: 08-09-2024 take 1 tablet by mouth every other day Bumetanide 1 mg Tablet Active 1 mg PO EVERY OTHER DAY May 02, 2021 12:00am Start: 03-16-2019 End: 08-15-2021 take 1 tablet by mouth twice daily as needed bumetanide (BUMEX) 1 mg tablet Take 1 mg by mouth twice daily. Patient taking as needed. 03/16/2019 08/15/2021 Discontinued Comment on above: Take 1 tablet by mando th every other day. One tablet every oth er day; OR daily, depending on weight gain, fluid retention. carvedilol 3.125 mg oral tablet (8 sources) alpha-Adrenergic Brett, beta-Adrenergic Brett Start: 10-10-19 End: 08-15-19 take 1 tablet by mouth twice daily Carvedilol 3.125 MG tablet Active 3.125 mg PO TWICE A DAY February 16, 2017 12:00am ciprofloxacin 250 mg oral tablet (1 source) Quinolone Antimicrobial Start: 02-25-20 End: 03-06-20 ciprofloxacin 250 mg oral tablet Dose : 250 mg = 1 tab(s), Oral, q12h, X 10 day(s), # 20 tab(s), 0 Refill(s), 03/06/25 1:23:00 PM EDT, Pharmacy: [facility], 175.3, cm, 02/24/25 9:10:00 EDT, Height, 83.2, kg, 02/24/25 9:10:00 EDT, Dosing Weight Start Date: 02/24/25 Stop Date: 03/06/25 Status: Ordered Quantity: 20.0 Unit: tab(s) Repeat number: 1 colchicine 0.6 mg oral tablet (1 source) Start: 07-31-20 colchicine 0.6 mg oral tablet Dose : 0.6 mg = 1 tab(s), Oral, qDay, # 30 tab(s), 0 Refill(s), Pharmacy: [facility], 175.3, cm, 07/25/21 20:25:00 EST, Height, kg, 07/25/21 20:25:00 EST, Dosing Weight Start Date: 07/31/21 Status: Ordered fluticasone / salmeterol (20 sources) Corticosteroid, beta2-Adrenergic Agonist Start: 08-09-20 take 1 puff(s) by mouth twice daily fluticasone-salmetero l (ADVAIR DISKUS) 100-50 mcg/dose inhaler Indications: Asthma, moderate persistent, well-controlled (HCC) Inhale 1 Puff as instructed two times a day. Rinse mouth out after use with water. 60 Each 08/09/2024 Active Start: 08-09-2024 take 1 puff(s) by mo ut twice daily fluticasone-salmeterol (ADVAIR DISKUS) 100-50 mcg/dose inhaler Indications: Asthma, moderate persistent, well-controlled Inhale 1 Puff as instructed two times a day. Rinse mouth out after use with water. 60 Each 08/09/2024 Active Start: 07-29-2023 End: 08-09-2024 take 1 puff(s) by mouth twice daily fluticasone-salmeterol (ADVAIR DISKUS) 100-50 mcg/dose inhaler Indications: Asthma, moderate persistent, well-controlled Inhale 1 Puff as instructed two times a day. Rinse mouth out after use with water. 60 Each 07/29/2023 08/09/2024 Discontinued Start: 07-29-2023 take 1 puff(s) by mo uth twice daily fluticasone-salmeterol (ADVAIR DISKUS) 100-50 mcg/dose inhaler Indications: Asthma, moderate persistent, well-controlled Inhale 1 Puff as instructed two times a day. Rinse mouth out after use with water. 60 Each 07/29/2023 Active Start: 07-24-2022 take 1 puff(s) by mo uth twice daily fluticasone-salmeterol (ADVAIR DISKUS) 100-50 mcg/dose inhaler Indications: Asthma, moderate persistent, well-controlled Inhale 1 Puff as instructed twice daily. Rinse mouth out after use with water. 60 Each 07/24/2022 Active Start: 09-04-2021 End: 07-24-2022 take 1 puff(s) by mouth twice daily fluticasone-salmeterol (ADVAIR DISKUS) 100-50 mcg/dose inhaler Indications: Asthma, moderate persistent, well-controlled Inhale 1 Puff as instructed twice daily. Rinse mouth out after use with water. 60 Each 09/04/2021 07/24/2022 Discontinued Start: 09-04-2021 take 1 puff(s) by mo uth twice daily fluticasone-salmeterol (ADVAIR DISKUS) 100-50 mcg/dose inhaler Indications: Asthma, moderate persistent, well-controlled Inhale 1 Puff as instructed twice daily. Rinse mouth out after use with water. 60 Each 09/04/2021 Active Start: 08-31-2020 End: 09-04-2021 take 1 puff(s) by mouth twice daily fluticasone-salmeterol (ADVAIR DISKUS) 100-50 mcg/dose Indications: Asthma, moderate persistent, well-controlled Inhale 1 Puff as instructed twice daily. Rinse mouth out after use with water. 1 Inhaler 08/31/2020 09/04/2021 Discontinued Start: 10-19-2019 take 1 dose by inhal ation twice daily Wixela Inhub 100 mcg-50 mcg inhalation powder Dose = 1 puff(s), Inhalation, BID, 0 Refill(s) Start Date: 10/19/19 Status: Ordered Repeat number: 1 Start: 02-16-2017 take 1 puff(s) by in halation twice daily Fluticasone Propion-Salmeterol (Advair Diskus) 1 PUFF inhaler Active 1 NMA INHALATION TWICE A DAY February 16, 2017 12:00am Start: 02-16-2017 take 1 puff(s) by in halation twice daily Fluticasone Propion-Salmeterol (Advair Diskus) 1 PUFF inhaler Active 1 PUFF INHALATION TWICE A DAY February 16, 2017 12:00am Start: 02-16-2017 take 1 puff(s) by in halation twice daily Fluticasone Propion-Salmeterol (Advair Diskus) 1 PUFF inhaler Active 1 PUFF INHALATION TWICE A DAY February 15, 2017 11:00pm Comment on above: Inhale 1 Puff as ins tructed twice daily. Rinse mouth out after use with water. Inhale 1 Puff as ins tructed two times a day. Rinse mouth out after use with water. LOW-DOSE ASPIRIN ORAL (20 sources) take 1 tablet by mouth once daily LOW-DOSE ASPIRIN ORAL Take 1 tablet by mouth once daily. Active take 1 tablet by mouth once ángela y LOW-DOSE ASPIRIN ORAL Take 1 tablet by mouth once daily. 0 Active Comment on above: Take 1 tablet by mando th once daily. 24 hr metoprolol succinate 25 mg extended release oral tablet (17 sources) beta-Adrenergic Brett Start: 01-04-2025 End: 01-04-2025 take 1 tablet by mouth once daily metoprolol succinate ER (TOPROL XL) 25 mg 24 hr tablet Indications: Permanent atrial fibrillation (HCC) Take 25 mg by mouth once daily. 01/04/2025 Active Start: 01-03-2025 End: 01-03-2025 take 1 tablet by mouth in the morning, then take 1 tablet by mouth every hour metoprolol succinate 25 mg oral TABLET extended release Start: 01/03/25 8:00:00 AM EDT, Dose = 25 mg, = 1 tab(s), Oral, Hold if HR (bpm) Start Date: 01/03/25 Stop Date: 01/03/25 Status: Completed Repeat number: 1 Start: 01-01-2025 End: 01-01-2025 take 1 tablet by mouth in the morning, then take 1 tablet by mouth every hour metoprolol succinate 25 mg oral TABLET extended release Start: 01/01/25 8:00:00 AM EDT, Dose = 25 mg, = 1 tab(s), Oral, Hold if HR (bpm) Start Date: 01/01/25 Stop Date: 01/01/25 Status: Completed Repeat number: 1 montelukast 10 mg oral tablet (20 sources) Leukotriene Receptor Antagonist Start: 03-09-2024 End: 08-04-2025 take 1 tablet by mouth once daily at bedtime montelukast (SINGULAIR) 10 mg tablet Indications: Asthma, moderate persistent, well-controlled (HCC) Take 1 tablet by mouth daily at bedtime. For asthma and allergies. 90 tablet 3 08/09/2024 08/04/2025 Active mupirocin 0.02 mg/mg topical ointment (1 source) RNA Synthetase Inhibitor Antibacterial Start: 02-13-2025 mupirocin 2% topical ointment Apply 1 charanjit, Topical, BID, Bilateral intranasal application twice daily x 5 days pre-surgery., Apply to: nostril, each, # 22 gram(s), 0 Refill(s), Pharmacy: [facility], Ointment, 173, cm, 02/13/25 9:58:00 EDT, Height, 83, kg, 02/13/25 9:58:00 EDT, Dosing Weight Start Date: 02/13/25 Status: Ordered Quantity: 22.0 Unit: g Repeat number: 1 nirmatrelvir tablet 300 mg (150 mg x 2) and ritonavir tablet 100 mg in a dose pack (PAXLOVID) (2 sources) Start: 08-10-2024 End: 08-15-2024 nirmatrelvir tablet 300 mg (150 mg x 2) and ritonavir tablet 100 mg in a dose pack (PAXLOVID) Administer TWO pink nirmatrelvir 150 mg tablets and ONE white ritonavir 100 mg tablet for a total of three tablets twice daily. 30 tablet 08/10/2024 08/15/2024 Active nitroglycerin 0.4 mg sublingual tablet (20 sources) Nitrate Vasodilator Start: 02-16-2017 End: 11-01-2024 nitroglycerin sublingual (NITROSTAT) 0.4 mg SL tablet Indications: Atherosclerosis of [place] coronary artery of [place] heart without angina pectoris Dissolve 1 tablet under the tongue as needed. DISSOLVE ON TONGUE FOR CHEST PAIN. IF NO PAIN RELIEF, CALL 911 25 tablet 3 11/01/2024 Active Start: 10-04-2015 Nitrostat 0.4 mg sublingual tablet Dose : 0.4 mg = 1 tab(s), Sublingual, q5min, PRN as needed for chest pain, # 100 tab(s), 0 Refill(s) Start Date: 10/04/15 Status: Ordered Quantity: 100.0 Unit: tab(s) Repeat number: 1 Comment on above: Dissolve 1 tablet un myra the tongue as needed. DISSOLVE ON TONGUE FOR CHEST PAIN. IF NO PAIN RELIEF, CALL 911 Nitrostat 0.4 mg sublingual tablet (4 sources) Start: 6 Nitrostat 0.4 mg sublingual tablet Dose : 0.4 mg = 1 tab(s), Sublingual, q5min, PRN as needed for chest pain, # 100 tab(s), 0 Refill(s) Start Date: 10/04/15 Status: Ordered pantoprazole 20 mg delayed release oral tablet (20 sources) Proton Pump Inhibitor Start: 3 End: 4 pantoprazole 20 mg oral enteric coated tablet Dose : 20 mg = 1 tab(s), Oral, qAM, # 30 tab(s), 0 Refill(s) Start Date: 12/31/24 Status: Ordered Quantity: 30.0 Unit: tab(s) Repeat number: 1 Comment on above: Take 1 tablet by mando th daily before breakfast. Take on empty stomach, 1/2 hr before meal. perflutren lipid microspheres 1.3 mL in NaCl (PF) 0.9% 10 mL injection (DEFINITY) (1 source) Start: 2 End: 3 perflutren lipid microspheres 1.3 mL in NaCl (PF) 0.9% 10 mL injection (DEFINITY) predniSONE 10 mg oral tablet (6 sources) Start: 5 End: 5 take 4 tablets by mouth once daily, then take 2 tablets by mouth once daily, then take 1 tablet by mouth once daily predniSONE (DELTASONE) 10 mg tablet Indications: Acute gout of right foot, unspecified cause Take 4 tablets by mouth once daily for 2 days, THEN 2 tablets once daily for 2 days, THEN 1 tablet once daily for 2 days. 14 tablet 08/15/2024 08/21/2024 Active Start: 11-10-2023 End: 11-15-2023 take 1 tablet by mouth once daily predniSONE (DELTASONE) 20 mg tablet Indications: Sinobronchitis , Asthma, moderate persistent, well-controlled Take 1 tablet by mouth once daily for 5 days. 5 tablet 0 11/10/2023 11/15/2023 Active Start: 08-05-2022 End: 08-11-2022 take 4 tablets by mouth once daily, then take 2 tablets by mouth once daily, then take 1 tablet by mouth once daily predniSONE (DELTASONE) 10 mg tablet Indications: Acute gout of right foot, unspecified cause Take 4 tablets by mouth once daily for 2 days, THEN 2 tablets once daily for 2 days, THEN 1 tablet once daily for 2 days. 14 tablet 0 08/05/2022 08/11/2022 Active Start: 04-21-2022 End: 04-27-2022 take 4 tablets by mouth once daily, then take 2 tablets by mouth once daily, then take 1 tablet by mouth once daily predniSONE (DELTASONE) 10 mg tablet Indications: Acute gout of right foot, unspecified cause Take 4 tablets by mouth once daily for 2 days, THEN 2 tablets once daily for 2 days, THEN 1 tablet once daily for 2 days. 14 tablet 0 04/21/2022 04/27/2022 Active Comment on above: Take 4 tablets by mo [facility] once daily for 2 days, THEN 2 tablets once daily for 2 days, THEN 1 tablet once daily for 2 days. Take 1 tablet by [facility] once daily for 5 days. sacubitril 24 mg / valsartan 26 mg oral tablet (20 sources) Angiotensin 2 Receptor Brett Start: 09-16-2021 take 1 tablet by mouth twice daily ENTRESTO 24-26 mg tablet Take 1 tablet by mouth twice daily. 10/21/2021 Active Start: 05-02-2021 Sacubitril-Peggy sartan (Entresto) 24-26 mg Tablet Active 0.5 {tbl} PO DAILY May 02, 2021 12:00am Start: 11-30-2019 End: 08-15-2021 Sacubitril-Valsartan (Entres to) 24-26 mg Tablet Active 1 {tbl} PO AT BEDTIME May 02, 2021 12:00am Comment on above: Take 1 tablet by mando twice daily. sotalol hydrochloride 80 mg oral tablet (20 sources) Antiarrhythmic Start: 10-29-2024 sotalol 80 mg oral tablet Dose : 160 mg = 2 tab(s), Oral, BID, # 120 tab(s), 0 Refill(s), Pharmacy: [facility], Ventricular tachycardia, 175.3, cm, 03/10/24 10:01:00 EDT, Height, kg, 03/10/24 10:01:00 EDT, Dosing Weight Start Date: 10/29/24 Status: Ordered Quantity: 120.0 Unit: tab(s) Repeat number: 1 Indications: Ventricular tachycardia; Start: 03-31-2022 sotalol 80 mg oral tablet Dose : 160 mg = 2 tab(s), Oral, BID, # 360 tab(s), 3 Refill(s), Pharmacy: [facility], Ventricular tachycardia, 175.3, cm, 12/30/21 13:33:00 EDT, Height, kg, 12/30/21 13:33:00 EDT, Dosing Weight Start Date: 03/31/22 Status: Ordered Start: 08-15-2021 End: 01-10-2025 take 2 tablets by mouth twice daily sotalol (BETAPACE) 80 mg tablet Indications: Ventricular tachycardia (HCC) Take 2 tablets by mouth twice daily. 08/15/2021 01/10/2025 Discontinued (Discontinued by another Health Care Provider) Start: 07-31-2021 sotalol 80 mg oral tablet Dose : 160 mg = 2 tab(s), Oral, BID, # 120 tab(s), 3 Refill(s), Pharmacy: [facility], 175.3, cm, 07/25/21 20:25:00 EST, Height, kg, 07/25/21 20:25:00 EST, Dosing Weight Start Date: 07/31/21 Status: Ordered Comment on above: Take 2 tablets by mo [facility] twice daily. spironolactone 25 mg oral tablet (20 sources) Aldosterone Antagonist Start: 09-16-19 take 0.5 tablet by mouth once daily spironolactone 25 mg oral tablet 0.5 tab, Oral, qDay, # 15 tab(s), 3 Refill(s), other reason (Rx), Dosing Weight Start Date: 09/16/21 Status: Ordered Start: 04-22-2021 End: 01-10-2025 spironolactone 25 mg oral ta blet Dose : 25 mg = 1 tab(s), Oral, qDay, # 30 tab(s), 0 Refill(s), Pharmacy: [facility], 175.3, cm, 03/10/24 10:01:00 EDT, Height, kg, 03/10/24 10:01:00 EDT, Dosing Weight Start Date: 10/29/24 Status: Ordered Quantity: 30.0 Unit: tab(s) Repeat number: 1 Comment on above: Take 25 mg by mouth once daily. traMADol hydrochloride 50 mg oral tablet (1 source) Opioid Agonist Start: 11-02-19 End: 11-09-19 take 1 tablet by mouth twice daily as needed for pain traMADol (ULTRAM) 50 mg tablet Indications: Lumbosacral radiculopathy Take 1 tablet by mouth two times a day as needed (back pain) for up to 7 days. 14 tablet 11/01/2024 11/08/2024 Active warfarin sodium 5 mg oral tablet (20 sources) Vitamin K Antagonist Start: 07-29-20 End: 11-24-19 warfarin (COUMADIN) 5 mg tablet Indications: Anticoagulated on Coumadin 2.5 mg every Sat,Sun, Tue, Nannette; 5 mg all other days 90 tablet 1 07/29/2023 11/24/2023 Discontinued (Adjust Sig - Block E-Cancel) Start: 04-28-2023 warfarin (COUM FEDERICO) 5 mg tablet Indications: Anticoagulated on Coumadin 2.5 mg every Sat,Sun, Tue, Nannette; 5 mg all other days 90 tablet 1 04/28/2023 Active Start: 03-13-2023 warfarin (COUM FEDERICO) 5 mg tablet Indications: Anticoagulated on Coumadin 2.5 mg every Sun, Tue, Nannette; 5 mg all other days 90 tablet 1 03/13/2023 Active Start: 02-11-2023 warfarin (COUM FEDERICO) 5 mg tablet Indications: Anticoagulated on Coumadin 2.5 mg every Sun, Tue, Nannette; 5 mg all other days 90 tablet 1 02/11/2023 Active Start: 05-17-2022 warfarin (COUM FEDERICO) 5 mg tablet Indications: Anticoagulated on Coumadin 2.5 mg every Sun, Tue, Nannette; 5 mg all other days 90 tablet 1 05/17/2022 Active Start: 08-12-2021 End: 05-14-2022 warfarin (COUMADIN) 5 mg tab let Indications: Anticoagulated on Coumadin 2.5 mg every Sun, Tue, Nannette; 5 mg all other days 90 tablet 1 11/29/2021 05/14/2022 Discontinued Start: 07-25-2021 Coumadin u se warfarin Dose : 2.5 mg =, Oral, Sun/Tues/Thurs, 0 Refill(s) Start Date: 07/25/21 Status: Ordered Repeat number: 1 Start: 07-25-2021 Coumadin u se warfarin See Instructions, 2.5 mg Sun/Tue/Nannette/Sat, 0 Refill(s) Start Date: 07/25/21 Status: Ordered Start: 02-16-2017 End: 08-09-2024 warfarin 5 mg oral tablet Do se : 5 mg = 1 tab(s), Oral, Thursday & Thursday Start Date: 12/31/24 Status: Ordered Repeat number: 1 Comment on above: 2.5 mg every Sun, Tu e, Nannette; 5 mg all other days 2.5 mg every Sat,Sun , Tue, Nannette; 5 mg all other days 5 mg every Thu & Fr ; 2.5 mg all other days Wixela Inhub 100 mcg-50 mcg inhalation powder (4 sources) Start: 10-19-2019 take 1 dose by inhalation twice daily Wixela Inhub 100 mcg-50 mcg inhalation powder Dose = 1 puff(s), Inhalation, BID, # 60 EA, 0 Refill(s) Start Date: 10/19/19 Status: Ordered Completed/Discontinued Medications Medication Drug Class(es) Dates Sig (Normalized) Sig (Original) empagliflozin 10 mg oral tablet (13 sources) Sodium-Glucose Cotransporter 2 Inhibitor Start: 03-09-2024 End: 08-09-2024 take 1 tablet by mouth once daily, then take 1 tablet by mouth once daily in the morning empagliflozin (JARDIANCE) 10 mg tablet Indications: Controlled type 2 diabetes mellitus with stage 3 chronic kidney disease, without long-term current use of insulin (HCC) , Chronic systolic heart failure (HCC) Take 1 tablet by mouth once daily. Take 1 tablet once daily in the morning 30 tablet 2 03/09/2024 08/09/2024 Discontinued (Discontinued by Patient) 0.8 ml enoxaparin sodium 100 mg/ml prefilled syringe (1 source) Low Molecular Weight Heparin Start: 07-31-2021 End: 08-03-2021 inject 0.8 mL by subcutaneous injection every twelve hours Lovenox 80 mg/0.8 mL injectable solution Dose : 80 mg = 0.8 mL, Subcutaneous, q12h, X 3 day(s), # 4.8 mL, 0 Refill(s), 08/03/21 12:17:00 EST Start Date: 07/31/21 Stop Date: 08/03/21 Status: Ordered furosemide 40 mg oral tablet (2 sources) Loop Diuretic Start: 03-25-2017 take 1 tablet by mouth once daily FUROSEMIDE 40 MG TABS One tablet by mouth daily FUROSEMIDE [id number] Kaveh Magallon MD 24 hr glipiZIDE 2.5 mg extended release oral tablet (2 sources) Sulfonylurea Start: 03-25-2017 take 1 tablet by mouth once daily GLIPIZIDE ER 2.5 MG [id number] One tablet by mouth daily GLIPIZIDE [id number] Kaveh Magallon MD lisinopril 5 mg oral tablet (2 sources) Angiotensin Converting Enzyme Inhibitor Start: 03-25-2017 LISINOPRIL 5 MG TABS LISINOPRIL [id number] Kaveh Magallon MD nintedanib 150 mg oral capsule (3 sources) Kinase Inhibitor take 1 capsule by mouth every twelve hours nintedanib (OFEV) 150 mg capsule Take 150 mg by mouth every 12 hours. 0 Active Comment on above: Take 150 mg by mouth every 12 hours. Drug Treatment Unknown - unknown (2 sources) No information available. potassium chloride 10 meq extended release oral tablet (2 sources) Start: 12-28-2020 End: 07-19-2021 take 1 tablet by mouth once daily potassium chloride (KLOR-CON 10) 10 mEq tablet Indications: Acute on chronic systolic CHF (congestive heart failure) (HCC) Take 1 tablet by mouth once daily. 90 tablet 1 12/28/2020 07/19/2021 Discontinued 125 ml sodium chloride 9 mg/ml prefilled syringe (20 sources) Start: 10-23-2021 End: 01-22-2023 sodium chloride 0.9 % (flush) 10 mL (BD POSIFLUSH) Problems Active Problems Problem Classification Problem Date Documented Da te Episodic/Chronic Acute and unspecified renal failure (3 sources) Acute kidney failure, unspecified; Translations: [Acute renal failure syndrome] Onset: 5 Episodic Asthma (20 sources) Asthma; Translations: [Moderate persistent asthma controlled] Onset: 9 04-09-2018 Chronic Cardiac dysrhythmias (20 sources) Atrial fibrillation; Translations: [Ventricular tachycardia] Onset: 3 03-25-2017 Chronic Comment on above: s/p ICD insertion--n on-sustained Non valvular. On sta ble coumadin dose. Interested in NARESH occluder after knowing that one of his friend has got a watchman. Chronic kidney disease (20 sources) Chronic kidney disease stage 3; Translations: [CKD (chronic kidney disease) stage 3, GFR 30-59 ml/min] Onset: 9 Resolved: 0 11-30-2019 Chronic Chronic obstructive pulmonary disease and bronchiectasis (11 sources) Chronic asthmatic bronchitis 10-17-2019 Chronic Coagulation and hemorrhagic disorders (20 sources) Platelet count below reference range; Translations: [Thrombocytopenia, unspecified] Onset: 0 01-17-2020 Chronic Conduction disorders (20 sources) Automatic implantable cardiac defibrillator in situ; Translations: [Presence of automatic (implantable) cardiac defibrillator] Onset: 3 Chronic Comment on above: Lt STOCK CHECKERER-D [10/29/15, s ds]: [employer] model G148, serial #[id number]. RV lead is [employer] model 0296, serial #[id number] implanted 06/10/2013. RA lead implant on 10/29/2015 is a [employer] model 4470, serial#[id number]. LV lead implant on 10/29/2015 is a [employer] model #4677, serial #[id number]. Congestive heart failure; nonhypertensive (20 sources) Chronic systolic heart failure; Translations: [Congestive heart failure] Onset: 8 10-17-2019 Chronic Comment on above: Patient has known sy stolic CHF, EF about 40%%. Ischemic/valvular. Previous CABG and valve replacement. Coronary atherosclerosis and other heart disease (20 sources) Coronary arteriosclerosis; Translations: [Coronary arteriosclerosis in [place] artery] Onset: 5 04-15-2019 Chronic Comment on above: post PCI to RCA on As stated above he has patent graft the left anterior descending artery. He is vein graft to the RPDA is retrogradely filling from the [place] right coronary artery. His [place] right coronary artery has severe distal lesion which if you proceed with transcatheter aortic valve replacement will be ischemic with rapid pacing. Patient has 100% occluded vein graft to circumflex which was not injected at that time. S/P CABG with left internal mammary artery graft to the LAD with bridge to diagonal artery, left internal mammary artery graft to the circumflex artery, saphenous vein graft to the posterior ventricular branch of the RCA. S/P PTCA and stent of [place] left circumflex artery with PROMUS stent at 04/2009. Coronary atherosclerosis and other heart disease (7 sources) Patient post percutaneous transluminal coronary angioplasty; Translations: [Coronary angioplasty status] Onset: 5 12-13-2017 Episodic Crushing injury or internal injury (10 sources) Injury of kidney 08-08-2021 Episodic Deficiency and other anemia (20 sources) Anemia co-occurrent and due to chronic kidney disease stage 3; Translations: [Anemia due to stage 3 chronic kidney disease] Onset: 0 01-17-2020 Chronic Deficiency and other anemia (1 source) Anemia in chronic kidney disease; Translations: [Anemia in chronic kidney disease] Onset: 5 Chronic Diabetes mellitus with complications (5 sources) Type 2 diabetes mellitus with peripheral angiopathy; Translations: [Type 2 diabetes mellitus with diabetic peripheral angiopathy without gangrene] Onset: 4 Chronic Diabetes mellitus without complication (20 sources) Type 2 diabetes mellitus; Translations: [Type 2 diabetes mellitus with diabetic chronic kidney disease] Onset: 7 04-15-2019 Chronic Comment on above: diet controlled Diabetes mellitus without complication (1 source) Diabetes mellitus without complication; Translations: [Controlled type 2 diabetes mellitus with stage 3 chronic kidney disease, without long-term current use of insulin (HCC)] Onset: 4 Disorders of lipid metabolism (20 sources) Mixed hyperlipidemia; Translations: [Hypercholesterolemia] Onset: 5 03-25-2017 Chronic Esophageal disorders (20 sources) Byers's esophagus; Translations: [Gastroesophageal reflux disease] Onset: 5 Resolved: 5 03-25-2017 Chronic Essential hypertension (20 sources) Hypertensive disorder; Translations: [Essential hypertension] Onset: 5 03-25-2017 Chronic Fluid and electrolyte disorders (20 sources) Hypokalemia; Translations: [Hyponatremia] 04-15-2019 Episodic Gout and other crystal arthropathies (20 sources) Gout; Translations: [Gouty arthritis of left foot] Onset: 0 10-19-2019 Chronic Headache; including migraine (11 sources) Headache 04-09-2018 Episodic Heart valve disorders (20 sources) Aortic valve stenosis; Translations: [History of mitral valve replacement] Onset: 3 10-17-2019 Chronic Comment on above: 04/13/2018-TAVR #26 ED WARDS AMBER S3 VALVE Hypertension with complications and secondary hypertension (20 sources) Hypertensive heart AND chronic kidney disease with congestive heart failure; Translations: [Hypertensive heart and chronic kidney disease with heart failure and stage 1 through stage 4 chronic kidney disease, or unspecified chronic kidney disease] Onset: 1 07-17-2021 Chronic Immunizations and screening for infectious disease (2 sources) Vaccination needed; Translations: [Encounter for immunization] Episodic Open wounds of extremities (1 source) Tear of skin; Translations: [Laceration without foreign body of left upper arm, initial encounter] 03-09-2024 Episodic Other aftercare (1 source) 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; Translations: [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] Onset: 5 Episodic Other circulatory disease (1 source) H/O: atrial fibrillation 10-04-2015 Episodic Other circulatory disease (11 sources) H/O: heart disorder 10-04-2015 Episodic Other connective tissue disease (1 source) Pain in left foot; Translations: [Pain in left foot] 07-12-2021 Episodic Other ear and sense organ disorders (11 sources) Hearing loss 04-09-2018 Chronic Other endocrine disorders (2 sources) Diabetes insipidus; 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] Onset: 7 03-25-2017 Chronic Other gastrointestinal disorders (20 sources) Irritable bowel syndrome; Translations: [Irritable bowel syndrome without diarrhea] Onset: 7 04-09-2018 Chronic Other gastrointestinal disorders (11 sources) Diarrhea 03-09-2019 Episodic Comment on above: occasional Other lower respiratory disease (11 sources) 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 Comment on above: MILD Other lower respiratory disease (20 sources) Interstitial lung disease; Translations: [Interstitial pulmonary disease, unspecified] Onset: 3 08-05-2021 Chronic Other lower respiratory disease (1 source) Interstitial pulmonary disease, unspecified; Translations: [Interstitial lung disease (HCC)] Onset: Chronic Other lower respiratory disease (20 sources) Dyspnea on exertion 05-17-2013 Episodic Other lower respiratory disease (1 source) Cough; Translations: [Cough] 03-19-2021 Episodic Other lower respiratory disease (2 sources) Cough; Translations: [Acute cough] 08-09-2024 Episodic Other non-traumatic joint disorders (1 source) Pain in left knee; Translations: [Pain in joint, lower leg] Episodic Other non-traumatic joint disorders (1 source) Chronic ankle pain; Translations: [Pain in unspecified ankle and joints of unspecified foot] 08-10-2024 Episodic Other nutritional; endocrine; and metabolic disorders (1 source) Obesity; Translations: [Obesity, unspecified] Chronic Other nutritional; endocrine; and metabolic disorders (1 source) Obesity, unspecified; Translations: [Obesity, unspecified] Onset: Chronic Other nutritional; endocrine; and metabolic disorders (11 sources) Overweight 10-17-2019 Episodic Other screening for suspected conditions (not mental disorders or infectious disease) (2 sources) No current problems or disability 02-16-2017 Other upper respiratory infections (1 source) Chronic sinusitis; Translations: [Chronic sinusitis, unspecified] 11-10-2023 Chronic Kathryn-; endo-; and myocarditis; cardiomyopathy (except that caused by tuberculosis or sexually transmitted disease) (20 sources) Cardiomyopathy; Translations: [Heart valve disorder] 02-11-2018 Chronic Comment on above: He has severe stenos is of the old mitral valve bioprosthesis. He is planned to undergo TAVR. We have discussed the pros and cons of this procedure and its the risk of the procedure with the patient as well as a family member. There is a very low risk of valve embolization as well as LVOT occlusion/rupture in that scenario patient will not be offered open heart surgery. We have reviewed this case with multiple of my partners including Dr. Siddiqi and Dr. Bowman. We will plan to perform this procedure under general anesthesia with GERARDO guidance. I would aggressively diurese him prior to the procedure with addition of Zaroxolyn. Patient will need to continue Coumadin post procedure because of valve and valve mitral valve. He has gene but no p henotypic appearance. Peripheral and visceral atherosclerosis (20 sources) Peripheral vascular disease; Translations: [Peripheral vascular disease, unspecified] Onset: 3 03-09-2019 Chronic Residual codes; unclassified (11 sources) Denture present 04-09-2018 Episodic Comment on above: full Residual codes; unclassified (11 sources) Tobacco user 10-17-2019 Episodic Skin and subcutaneous tissue infections (4 sources) Cellulitis of left forearm; Translations: [Cellulitis of left upper limb] 01-21-2021 Episodic Unclassified (11 sources) Eye glasses, device (physical object) 04-09-2018 Unclassified (11 sources) Hearing aid, device (physical object) 04-09-2018 Comment on above: bilat Unclassified (11 sources) Patient encounter status 03-21-2021 Unclassified (4 sources) Status post valve replacement 12-13-2017 Unclassified (1 source) Other supraventricular tachycardia; Translations: [Other supraventricular tachycardia] Onset: 5 Unclassified (1 source) Permanent atrial fibrillation; Translations: [Permanent atrial fibrillation (HCC)] Onset: 0 Past or Other Problems Problem Classification Problem Date Documented Da te Episodic/Chronic Diabetes mellitus without complication (20 sources) Impaired glucose tolerance; Translations: [Impaired glucose tolerance (oral)] Onset: 02-21-2015 Resolved: 09-09-2017 12-13-2017 Episodic Diverticulosis and diverticulitis (20 sources) Diverticular disease; Translations: [Diverticulosis of intestine, part unspecified, without perforation or abscess without bleeding] Onset: 07-26-2010 Resolved: 01-27-2019 01-27-2019 Chronic Other aftercare (20 sources) Long-term current use of anticoagulant; Translations: [penitentiary (current) use of anticoagulants] Onset: 01-26-2019 01-26-2019 Episodic Other aftercare (20 sources) Anticoagulant effect; Translations: [penitentiary (current) use of anticoagulants] Onset: 05-02-2013 Resolved: 11-30-2019 Episodic Other aftercare (1 source) Encounter for therapeutic drug level monitoring; Translations: [Encounter for therapeutic drug level monitoring] Onset: 01-07-2024 Episodic Other and unspecified benign neoplasm (2 sources) Personal history of colonic polyps; Translations: [Personal history of colonic polyps] Onset: 03-25-2017 03-25-2017 Episodic Other and unspecified benign neoplasm (20 sources) Polyp of colon; Translations: [Polyp of colon] Onset: 07-26-2010 Resolved: 07-24-2022 07-26-2010 Episodic Other gastrointestinal disorders (20 sources) Occult blood in stools; Translations: [Other fecal abnormalities] Onset: 08-13-2012 Resolved: 12-03-2012 12-03-2012 Episodic Other screening for suspected conditions (not mental disorders or infectious disease) (20 sources) Patient encounter status; Translations: [Encounter for screening for malignant neoplasm of colon] Onset: 07-11-2010 Resolved: 12-03-2012 12-03-2012 Episodic Residual codes; unclassified (20 sources) Insomnia; Translations: [Other insomnia] Onset: 12-02-2018 Resolved: 07-29-2023 12-02-2018 Chronic Residual codes; unclassified (11 sources) History of repair of atrial septal defect Onset: 04-13-2019 10-17-2019 Episodic Spondylosis; intervertebral disc disorders; other back problems (20 sources) Lumbosacral radiculopathy; Translations: [Radiculopathy, lumbosacral region] Onset: 11-01-2024 11-01-2024 Episodic Unclassified (4 sources) Borderline elevated troponin 04-16-2022 Results Test Name Value Interpretation Reference Range Facility [facility] 02-28-2025 CNPN Telephone (PHAMTE) BESSY VALVERDE ([id number]) 1945 M Date Time Provider Department 02/28/25 JONATHAN HAWKINS During your visit today, we recorded the following information about you: Jonathan Hawkins [facility] 02/28/2025 8:17 AM Signed [facility] Anticoagulation Episode Summary Anticoagulation Care Providers Provider Role Specialty Phone number George Mata MD [facility] Internal Medicine [phone] Bessy Valverde is a 79 year old year old male patient being evaluated today for a Telemanagement visit. Patient is currently on the following anticoagulant(s) Warfarin. Labs Lab Results Component Value Date INR 2.0 02/28/2025 INR 4.0 (A) 02/21/2025 INR 3.0 02/14/2025 Lab Results Component Value Date HB 11.3 (L) 09/06/2024 HB 12.2 (L) 01/25/2024 HB 12.0 (L) 01/23/2023 Lab Results Component Value Date HCT 33.9 (L) 09/06/2024 HCT 37.8 (L) 01/25/2024 HCT 37.4 (L) 01/23/2023 Lab Results Component Value Date PLT 141 (L) 09/06/2024 PLT 125 (L) 01/25/2024 PLT 128 (L) 01/23/2023 Lab Results Component Value Date CREAT 1.66 (H) 09/06/2024 CREAT 1.30 (H) 01/25/2024 CREAT 1.35 (H) 07/29/2023 No components found for: TBILI3 Lab Results Component Value Date ALT 15 09/06/2024 ALT 20 01/25/2024 ALT 19 07/29/2023 Lab Results Component Value Date AST 21 09/06/2024 AST 24 01/25/2024 AST 27 07/29/2023 Estimated Creatinine Clearance: 33.9 mL/min (A) (based on SCr of 1.66 mg/dL (H)). ALLERGIES No Known Allergies Indication for Warfarin: Anticoagulation Episode Summary Current INR goal: 2.0-3.0 Assessment: INR result of 2.0 is therapeutic Plan: Current Warfarin Dosing As of 02/28/2025 Full warfarin instructions: 5 mg every Mon, Fri; 2.5 mg all other days Called and spoke to patient/caregiver Advised patient to continue current weekly dose as noted above Next home INR check scheduled on 03/14/2025 Patient verbalizes understanding of the plan. Patient advised to call the PAC with any medication changes, bleeding/bruising concerns, recent changes in vitamin k consumption, if any procedures are coming up, if they have been ill or in the hospital, and if they have missed any doses of warfarin. Jonathan Hawkins [facility] Clinical Pharmacist, Pharmacy Anticoagulation Clinic Pharmacy Anticoagulation Clinic Pager: [phone]. Allergies As of Date: 02/28/2025 (No Known Allergies) Date Reviewed: 01/10/2025 Reviewed by: Daphney Obando LPN - Fully Assessed Reason for Visit: Anticoagulation Telephone Fu [[id number]] Cmt: Home INR result Prescriptions as of 02/28/2025 - metoprolol succinate ER (TOPROL XL) 25 mg 24 hr tablet Take 25 mg by mouth once daily. - acetaminophen (TYLENOL) 325 mg tablet Take 650 mg by mouth every 4 hours as needed. - bumetanide (BUMEX) 1 mg tablet Take 1 tablet by mouth once daily as needed (weight gain 3 pounds). Or as directed for weight gain, fluid retention. - feleakgqx-qvxrff-hlakxt ne-scop () 16.2-0.1037 -0.0194 mg per tablet Take 1 tablet by mouth every 6 hours as needed. - albuterol HFA (VENTOLIN HFA) 90 mcg/actuation inhaler USE 2 INHALATIONS 4 TIMES A DAY IF NEEDED - nitroglycerin sublingual (NITROSTAT) 0.4 mg SL tablet Dissolve 1 tablet under the tongue as needed. DISSOLVE ON TONGUE FOR CHEST PAIN. IF NO PAIN RELIEF, CALL 911 - atorvastatin (LIPITOR) 40 mg tablet Take 1 tablet by mouth once daily. - montelukast (SINGULAIR) 10 mg tablet Take 1 tablet by mouth daily at bedtime. For asthma and allergies. - fluticasone-salmeterol (ADVAIR DISKUS) 100-50 mcg/dose inhaler Inhale 1 Puff as instructed two times a day. Rinse mouth out after use with water. - pantoprazole DR (PROTONIX) 20 mg tablet Take 1 tablet by mouth daily before breakfast. Take on empty stomach, 1/2 hr before meal. - warfarin (COUMADIN) 5 mg tablet 5 mg every Thu AND Fr ; 2.5 mg all other days - ENTRESTO 24-26 mg tablet Take 1 tablet by mouth twice daily. - LOW-DOSE ASPIRIN ORAL Take 1 tablet by mouth once daily. - blood sugar diagnostic (BLOOD GLUCOSE TEST) test strip Test blood sugar(s) one times daily. Dx: Type 2 DM - Controlled E11.9 Insulin: No - Blood-Glucose Meter monitoring kit Glucose Meter of Choice - Kit - Dx: Type 2 DM - Controlled E11.9 Problem List As Of Date 02/28/2025 Noted Resolved Coronary atherosclerosis [I25.10] 05/19/2005 PURE HYPERCHOLESTEROLEM [E78.00] 05/19/2005 Gastroesophageal reflux disease without esophag*05/19/2005 Essential hypertension [I10] 05/19/2005 Postsurgical aortocoronary bypass status [Z95.1]06/22/2007 01/27/2019 IRRITABLE COLON [K58.9] 06/22/2007 Asthma, moderate persistent, well-controlled [J*12/09/2008 Screen for colon cancer [Z12.11] 07/11/2010 12/03/2012 Colon polyp [K63.5] 07/26/2010 07/24/2022 Diverticulosis [K57.90] (more content not included)... Normal [facility] .GFROrdered By: SYSTEM SYSTE M on 02-24-2025 Estimated Glomerular Filtration Rate 45 ml/min/1.73sqm Normal Chemistry S Comment on above: Interpretive Data: Stages of Chronic Kidney Disease (CKD) Stage Description eGFR(ml/min/1.73 sq.m.) CKD 1 Normal kidney function or >=90 normal kindney function with possible kidney damage (ex. Proteinuria) CKD 2 Kidney damage with mild loss 60-89 of kidney function CKD 3a Mild to moderate loss of kidney 45-59 function CKD 3b Moderate to severe loss of 30-44 of kindey function CKD 4 Severe loss of kidney function 15-29 CKD 5 Kidney failure <15 Note: ( live 09/13/2024) the eGFR calculation was updated to the 2020 CKD-EPI creatinine equation without a race factor to calculate the eGFR results. Result Comment: Stages of Chronic Kidney Disease (CKD) Stage Description eGFR(ml/min/1.73 sq.m.) CKD 1 Normal kidney function or >=90 normal kindney function with possible kidney damage (ex. Proteinuria) CKD 2 Kidney damage with mild loss 60-89 of kidney function CKD 3a Mild to moderate loss of kidney 45-59 function CKD 3b Moderate to severe loss of 30-44 of kindey function CKD 4 Severe loss of kidney function 15-29 CKD 5 Kidney failure <15 Note: ( live 09/13/2024) the eGFR calculation was updated to the 2020 CKD-EPI creatinine equation without a race factor to calculate the eGFR results. Performed By: #### T DANIEL RIVAS, CMP, PBNP, GFR, PRO, CBC, ANEULANE #### [address] [address] BMPon 02-24-2025 BUN/Creatinine Ratio 27.7 ratio High 10.0-22.0 [facility] Comment on above: Performed By: #### T DANIEL RIVAS, CMP, PBNP, GFR, PRO, CBC, ANEULANE #### [address] [address] BMPOrdered By: SYSTEM SYSTEM on 02-24-2025 Calcium [Mass/Vol] 9.7 mg/dL Normal 8.7-10.4 AH ADM SS Comment on above: Performed By: #### T EVELYN, ADPHYLLIS, CMP, PBNP, GFR, PRO, CBC, ANEULANE #### [address] [address] Chloride [Moles/Vol] 103 mmol/L Normal 98-110 AH A DM SS Comment on above: Performed By: #### T EVELYN ADPHYLLIS, CMP, PBNP, GFR, PRO, CBC, ANEULANE #### [address] [address] CO2 [Moles/Vol] 27 mmol/L Normal 22-32 AH ADM SS Comment on above: Performed By: #### T ROPHS, ADIFF, CMP, PBNP, GFR, PRO, CBC, LANE FERNANDEZ #### [address] [address] Creatinine [Mass/Vol] 1.55 mg/dL High 0.60-1.40 AH ADM SS Comment on above: Interpretive Data: T esting performed on [employer] CH analyzer using enzymatic creatinine methodology. Result Comment: Test ing performed on [employer] CH analyzer using enzymatic creatinine methodology. Performed By: #### T ROPHS, ADIFF, CMP, PBNP, GFR, PRO, CBC, LANE FERNANDEZ #### [address] [address] Electrolyte Balance 13.0 mEq/L Normal 4.0-15.0 AH AD M SS Comment on above: Performed By: #### T EVELYN, ADIFF, CMP, PBNP, GFR, PRO, CBC, L[address] FERNANDEZ #### [address] [address] Glucose [Mass/Vol] 135 mg/dL High 82-115 AH ADM SS Comment on above: Performed By: #### T EVELYN, ADIFF, CMP, PBNP, GFR, PRO, CBC, L[address] FERNANDEZ #### [address] [address] Potassium [Moles/Vol] 4.1 mmol/L Normal 3.5-5.0 AH ADM SS Comment on above: Performed By: #### T ROPHS, ADIFF, CMP, PBNP, GFR, PRO, CBC, L[address] FERNANDEZ #### [address] [id number] Sodium [Moles/Vol] 143 mmol/L Normal 136-145 AH ADM SS Comment on above: Performed By: #### T ROPHS, ADIFF, CMP, PBNP, GFR, PRO, CBC, LANE FERNANDEZ #### [address] [address] Urea nitrogen [Mass/Vol] 43.0 mg/dL High 8.0-22.0 AH ADM SS Comment on above: Performed By: #### T ROPHS, ADIFF, CMP, PBNP, GFR, PRO, CBC, ANEU, MDW #### [address] [address] LABORATORYOrdered By: Dior frazier on 02-24-2025 Glucose [Mass/Vol] 125 mg/dL High 82 - 115 mg/dL [facility] LABORATORYOrdered By: SYSTEM SYSTEM on 02-24-2025 PT International Ratio 2.1 ratio Invalid Interpretation Code IGOR HemoHbritney BRITO Comment on above: Interpretive Data: Reid pacheco [employer] (CHEST, 1991, 102:312S-25S) recommended therapeutic range for oral anticoagulant therapy is: LOW RISK: Prophylaxis of venous thrombosis INR: 2.0-3.0 Treatment of pulmonary embolism 2.0-3.0 Prevention of systemic embolism 2.0-3.0 HIGH RISK: Mechanical prosthetic valves 2.5-3.5 Urea nitrogen/Creatinine [Mass ratio] 27.7 ratio High 10.0 - 22.0 ratio ADM SS PROon 02-24-2025 INR Coag (PPP) [Relative time] 2.1 {INR} Normal [facility] Comment on above: Result Comment: [employer] (CHEST, 1991, 102:312S-25S) recommended therapeutic range for oral anticoagulant therapy is: LOW RISK: Prophylaxis of venous thrombosis INR: 2.0-3.0 Treatment of pulmonary embolism 2.0-3.0 Prevention of systemic embolism 2.0-3.0 HIGH RISK: Mechanical prosthetic valves 2.5-3.5 Performed By: #### T EVELYN, DANIEL, CMP, PBNP, GFR, PRO, CBC, ANEU, MDW #### [address] [address] PROOrdered By: SYSTEM SYSTEM on 02-24-2025 PT Coag (PPP) [Time] 24.7 s High 9.0-14.4 IGOR BRITO Comment on above: Interpretive Data: E ffective 02/22/08, Protime results may be affected by some antibiotics (i.e. Ciprofloxacin, Azithromycin, Bactrim) which may potentiate the action of oral anticoagulants, with further increases in Protime/INR. Result Comment: Effe ctive 02/22/08, Protime results may be affected by some antibiotics (i.e. Ciprofloxacin, Azithromycin, Bactrim) which may potentiate the action of oral anticoagulants, with further increases in Protime/INR. Performed By: #### T DANIEL RIVAS, CMP, PBNP, GFR, PRO, CBC, ANEU, MDW #### [address] [address] XR CHEST 1 VIEWon 02-24-2025 XR CHEST 1 VIEW ORIGINAL EXAMINATION: ONE XRAY VIEW OF THE CHEST 02/24/2025 1:38 pm COMPARISON: Chest x-ray 12/31/2024. HISTORY: ORDERING SYSTEM PROVIDED HISTORY: Reason for Exam: Evaluate for pneumothorax/lead position post pacer/ICD insertion FINDINGS: Left 3 lead subclavian AICD is noted with leads in unchanged position within the right atrium, right ventricle and coronary sinus. A suspected atrial septal occlusion device is noted. Median sternotomy wires are noted. A TAVR is noted. Atherosclerotic calcifications are noted within the aorta. The cardiac contour is enlarged but stable. There is mild worsening bilateral interstitial prominence, greatest within the right lung base. Suspect small bilateral pleural effusions. No pneumothorax. Osseous structures appear intact. IMPRESSION: No significant change in positioning of left subclavian 3 lead pacemaker. No evidence of pneumothorax. Increasing bilateral interstitial prominence greatest within the right lower lobe and suspected small bilateral pleural effusions is likely related to pulmonary edema. Interpreted by: Hunter Collier Preliminary Report By: Hunter Collier Electronically signed By Hunter Collier Dictated Date: 02/24/2025 2:07:16 PM Prelim Date: 02/24/2025 2:11:11 PM Sign Date: 02/24/2025 2:11:11 PM Ordering Provider: VERONIQUE TOUSSAINT [facility] 02-21-2025 ROSI Telephone ([email or web address]) BESSY VALVERDE ([id number]) 1945 M Date Time Provider Department 02/21/25 JONATHAN HAWKINS During your visit today, we recorded the following information about you: Jonathan Hawkins, [facility] 02/21/2025 7:59 AM Signed [facility] Anticoagulation Episode Summary Anticoagulation Care Providers Provider Role Specialty Phone number MataGeorge MD Responsible Internal Medicine [phone] Bessy Valverde is a 79 year old year old male patient being evaluated today for a Telemanagement visit. Patient is currently on the following anticoagulant(s) Warfarin. Labs Lab Results Component Value Date INR 4.0 (A) 02/21/2025 INR 3.0 02/14/2025 INR 2.8 02/07/2025 Lab Results Component Value Date HB 11.3 (L) 09/06/2024 HB 12.2 (L) 01/25/2024 HB 12.0 (L) 01/23/2023 Lab Results Component Value Date HCT 33.9 (L) 09/06/2024 HCT 37.8 (L) 01/25/2024 HCT 37.4 (L) 01/23/2023 Lab Results Component Value Date PLT 141 (L) 09/06/2024 PLT 125 (L) 01/25/2024 PLT 128 (L) 01/23/2023 Lab Results Component Value Date CREAT 1.66 (H) 09/06/2024 CREAT 1.30 (H) 01/25/2024 CREAT 1.35 (H) 07/29/2023 No components found for: TBILI3 Lab Results Component Value Date ALT 15 09/06/2024 ALT 20 01/25/2024 ALT 19 07/29/2023 Lab Results Component Value Date AST 21 09/06/2024 AST 24 01/25/2024 AST 27 07/29/2023 Estimated Creatinine Clearance: 33.9 mL/min (A) (based on SCr of 1.66 mg/dL (H)). ALLERGIES No Known Allergies Indication for Warfarin: Anticoagulation Episode Summary Current INR goal: 2.0-3.0 Assessment: INR result of 4.0 is SUPRAtherapeutic due to: APAP or NSAID use Plan: Current Warfarin Dosing As of 02/21/2025 Full warfarin instructions: 02/21: Hold; Otherwise 5 mg every Mon, Fri; 2.5 mg all other days Called and spoke to patient/caregiver Advised patient to hold 1 dose then continue current regimen Next home INR check scheduled on 02/28 Patient is scheduled for DCC and pacemaker change out on 02/24. No warfarin hold. Patient verbalizes understanding of the plan. Patient advised to call the PAC with any medication changes, bleeding/bruising concerns, recent changes in vitamin k consumption, if any procedures are coming up, if they have been ill or in the hospital, and if they have missed any doses of warfarin. Jonathan Hawkins [facility] Clinical Pharmacist, Pharmacy Anticoagulation Clinic Pharmacy Anticoagulation Clinic Pager: [phone]. Allergies As of Date: 02/21/2025 (No Known Allergies) Date Reviewed: 01/10/2025 Reviewed by: Daphney Obando LPN - Fully Assessed Reason for Visit: Anticoagulation Telephone Fu [148] Cmt: Home INR result Prescriptions as of 02/21/2025 - metoprolol succinate ER (TOPROL XL) 25 mg 24 hr tablet Take 25 mg by mouth once daily. - acetaminophen (TYLENOL) 325 mg tablet Take 650 mg by mouth every 4 hours as needed. - bumetanide (BUMEX) 1 mg tablet Take 1 tablet by mouth once daily as needed (weight gain 3 pounds). Or as directed for weight gain, fluid retention. - xskzqpiip-gpiqpx-wcjwse ne-scop () 16.2-0.1037 -0.0194 mg per tablet Take 1 tablet by mouth every 6 hours as needed. - albuterol HFA (VENTOLIN HFA) 90 mcg/actuation inhaler USE 2 INHALATIONS 4 TIMES A DAY IF NEEDED - nitroglycerin sublingual (NITROSTAT) 0.4 mg SL tablet Dissolve 1 tablet under the tongue as needed. DISSOLVE ON TONGUE FOR CHEST PAIN. IF NO PAIN RELIEF, CALL 911 - atorvastatin (LIPITOR) 40 mg tablet Take 1 tablet by mouth once daily. - montelukast (SINGULAIR) 10 mg tablet Take 1 tablet by mouth daily at bedtime. For asthma and allergies. - fluticasone-salmeterol (ADVAIR DISKUS) 100-50 mcg/dose inhaler Inhale 1 Puff as instructed two times a day. Rinse mouth out after use with water. - pantoprazole DR (PROTONIX) 20 mg tablet Take 1 tablet by mouth daily before breakfast. Take on empty stomach, 1/2 hr before meal. - warfarin (COUMADIN) 5 mg tablet 5 mg every Mon AND Fr ; 2.5 mg all other days - ENTRESTO 24-26 mg tablet Take 1 tablet by mouth twice daily. - LOW-DOSE ASPIRIN ORAL Take 1 tablet by mouth once daily. - blood sugar diagnostic (BLOOD GLUCOSE TEST) test strip Test blood sugar(s) one times daily. 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 Normal [facility]14-20[facility] BESSY VALVERDE ([id number]) 1945 M Date Time Provider Department 02/14/25 JONATHAN HAWKINS During your visit today, we recorded the following information about you: Jonathan Hawkins [facility] 02/14/2025 10:26 AM Signed [facility] Anticoagulation Episode Summary Anticoagulation Care Providers Provider Role Specialty Phone number George Mata MD [facility] Internal Medicine [phone] Bessy Hernandez Nicolle is a 79 year old year old male patient being evaluated today for a Telemanagement visit. Patient is currently on the following anticoagulant(s) Warfarin. Labs Lab Results Component Value Date INR 3.0 02/14/2025 INR 2.8 02/07/2025 INR 2.5 01/31/2025 Lab Results Component Value Date HB 11.3 (L) 09/06/2024 HB 12.2 (L) 01/25/2024 HB 12.0 (L) 01/23/2023 Lab Results Component Value Date HCT 33.9 (L) 09/06/2024 HCT 37.8 (L) 01/25/2024 HCT 37.4 (L) 01/23/2023 Lab Results Component Value Date PLT 141 (L) 09/06/2024 PLT 125 (L) 01/25/2024 PLT 128 (L) 01/23/2023 Lab Results Component Value Date CREAT 1.66 (H) 09/06/2024 CREAT 1.30 (H) 01/25/2024 CREAT 1.35 (H) 07/29/2023 No components found for: TBILI3 Lab Results Component Value Date ALT 15 09/06/2024 ALT 20 01/25/2024 ALT 19 07/29/2023 Lab Results Component Value Date AST 21 09/06/2024 AST 24 01/25/2024 AST 27 07/29/2023 Estimated Creatinine Clearance: 33.9 mL/min (A) (based on SCr of 1.66 mg/dL (H)). ALLERGIES No Known Allergies Indication for Warfarin: Anticoagulation Episode Summary Current INR goal: 2.0-3.0 Assessment: INR result of 3.0 is therapeutic Plan: Current Warfarin Dosing As of 02/14/2025 Full warfarin instructions: 5 mg every Mon, Fri; 2.5 mg all other days Called and spoke to patient/caregiver Advised patient to continue current weekly dose as noted above Next home INR check scheduled on 02/21/2025 Patient verbalizes understanding of the plan. Patient advised to call the PAC with any medication changes, bleeding/bruising concerns, recent changes in vitamin k consumption, if any procedures are coming up, if they have been ill or in the hospital, and if they have missed any doses of warfarin. Jonathan Hawkins [facility] Clinical Pharmacist, Pharmacy Anticoagulation Clinic Pharmacy Anticoagulation Clinic Pager: [phone]. Allergies As of Date: 02/14/2025 (No Known Allergies) Date Reviewed: 01/10/2025 Reviewed by: Daphney Obando LPN - Fully Assessed Reason for Visit: Anticoagulation Telephone Fu [148] Cmt: Home INR result Prescriptions as of 02/14/2025 - metoprolol succinate ER (TOPROL XL) 25 mg 24 hr tablet Take 25 mg by mouth once daily. - acetaminophen (TYLENOL) 325 mg tablet Take 650 mg by mouth every 4 hours as needed. - bumetanide (BUMEX) 1 mg tablet Take 1 tablet by mouth once daily as needed (weight gain 3 pounds). Or as directed for weight gain, fluid retention. - dnoiluqxu-owbovb-gqbqat ne-scop () 16.2-0.1037 -0.0194 mg per tablet Take 1 tablet by mouth every 6 hours as needed. - albuterol HFA (VENTOLIN HFA) 90 mcg/actuation inhaler USE 2 INHALATIONS 4 TIMES A DAY IF NEEDED - nitroglycerin sublingual (NITROSTAT) 0.4 mg SL tablet Dissolve 1 tablet under the tongue as needed. DISSOLVE ON TONGUE FOR CHEST PAIN. IF NO PAIN RELIEF, CALL 911 - atorvastatin (LIPITOR) 40 mg tablet Take 1 tablet by mouth once daily. - montelukast (SINGULAIR) 10 mg tablet Take 1 tablet by mouth daily at bedtime. For asthma and allergies. - fluticasone-salmeterol (ADVAIR DISKUS) 100-50 mcg/dose inhaler Inhale 1 Puff as instructed two times a day. Rinse mouth out after use with water. - pantoprazole DR (PROTONIX) 20 mg tablet Take 1 tablet by mouth daily before breakfast. Take on empty stomach, 1/2 hr before meal. - warfarin (COUMADIN) 5 mg tablet 5 mg every Mon AND Fr ; 2.5 mg all other days - ENTRESTO 24-26 mg tablet Take 1 tablet by mouth twice daily. - LOW-DOSE ASPIRIN ORAL Take 1 tablet by mouth once daily. - blood sugar diagnostic (BLOOD GLUCOSE TEST) test strip Test blood sugar(s) one times daily. 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 Normal [facility] .Auto Diffon 02-13-2025 Basophil, Absolute 0.0 10 3/mcL Normal 0.0-0.3 [facility] Comment on above: Performed By: #### T EVELYN, ADIFF, CMP, PBNP, GFR, PRO, CBC, ANEU, MDW #### [address] [address] Basophils/100 WBC (Bld) 0.6 % Normal 0.0-2.5 [facility] Comment on above: Performed By: #### T EVELYN ADPHYLLIS, CMP, PBNP, GFR, PRO, CBC, ANEU MDW #### [address] [address] Eosinophil, Absolute 0.1 10 3/mcL Normal 0.0-0.7 [facility] Comment on above: Performed By: #### T EVELYN, ADIFF, CMP, PBNP, GFR, PRO, CBC, ANEU, MDW #### [address] [address] Eosinophils/100 WBC (Bld) 1.2 % Normal 0.0-6.0 [facility] Comment on above: Performed By: #### T EVELYN, ADIFF, CMP, PBNP, GFR, PRO, CBC, ANEU, MDW #### [address] [address] Lymphocyte, Absolute 0.5 10 3/mcL Low 0.9-4.3 [facility] Comment on above: Performed By: #### T ROPHS, ADIFF, CMP, PBNP, GFR, PRO, CBC, ANEU, MDW #### [address] [address] Lymphocytes/100 WBC (Bld) 7.7 % Low 20.0-40.0 [facility] Comment on above: Performed By: #### T ROPHS, ADIFF, CMP, PBNP, GFR, PRO, CBC, ANEU, W #### [address] [address] Monocyte, Absolute 0.7 10 3/mcL Normal 0.1-1.4 [facility] Comment on above: Performed By: #### T ROPHS, ADIFF, CMP, PBNP, GFR, PRO, CBC, ANEU, MDW #### [address] [address] Monocytes/100 WBC (Bld) 10.1 % Normal 2.0-13.0 [facility] Comment on above: Performed By: #### T ROPHS, ADIFF, CMP, PBNP, GFR, PRO, CBC, ANEU, MDW #### [address] [address] Neutrophils/100 WBC (Bld) 80.4 % High 50.0-75.0 [facility] Comment on above: Performed By: #### T ROPHS, ADIFF, CMP, PBNP, GFR, PRO, CBC, ANEU, MDW #### [address] [address] .GFRon 02-13-2025 Estimated Glomerular Filtration Rate 41 ml/min/1.73sqm Normal [facility] Comment on above: Result Comment: Stages of Chronic Kidney Disease (CKD) Stage Description eGFR(ml/min/1.73 sq.m.) CKD 1 Normal kidney function or >=90 normal kindney function with possible kidney damage (ex. Proteinuria) CKD 2 Kidney damage with mild loss 60-89 of kidney function CKD 3a Mild to moderate loss of kidney 45-59 function CKD 3b Moderate to severe loss of 30-44 of kindey function CKD 4 Severe loss of kidney function 15-29 CKD 5 Kidney failure <15 Note: (go live 2024) the eGFR calculation was updated to the 2020 CKD-EPI creatinine equation without a race factor to calculate the eGFR results. Performed By: #### T ROPNORBERTO, ADIFF, CMP, PBNP, GFR, PRO, CBC, LANE FERNANDEZ #### [address] [address] .NEUABSon 02-13-2025 Neutrophil, Absolute 5.4 10 3/mcL Normal 2.3-8.1 [facility] Comment on above: Performed By: #### T ROPHS, ADIFF, CMP, PBNP, GFR, PRO, CBC, LANE FERNANDEZ #### [address] [address] BMPon 02-13-2025 BUN/Creatinine Ratio 24.6 ratio High 10.0-22.0 [facility] Comment on above: Performed By: #### T EVELYN, ADIFF, CMP, PBNP, GFR, PRO, CBC, LANE FERNANDEZ #### [address] [address] Calcium [Mass/Vol] 9.5 mg/dL Normal 8.7-10.4 [facility] Comment on above: Performed By: #### T EVELYN, ADIFF, CMP, PBNP, GFR, PRO, CBCJIM MDW #### [address] [address] Chloride [Moles/Vol] 102 mmol/L Normal 98-110 [facility] Comment on above: Performed By: #### T ROPHS, ADIFF, CMP, PBNP, GFR, PRO, CBC, LANE FERNANDEZ #### [address] [address] CO2 [Moles/Vol] 29 mmol/L Normal 22-32 [facility] Comment on above: Performed By: #### T ROPHS, ADIFF, CMP, PBNP, GFR, PRO, CBC, LANE FERNANDEZ #### [address] [address] Creatinine [Mass/Vol] 1.67 mg/dL High 0.60-1.40 [facility] Comment on above: Result Comment: Test ing performed on AbilTo analyzer using enzymatic creatinine methodology. Performed By: #### T ROPHS, ADIFF, CMP, PBNP, GFR, PRO, CBCJIM MDW #### [address] [address] Electrolyte Balance 11.0 mEq/L Normal 4.0-15.0 [facility] Comment on above: Performed By: #### T ROPHS, ADIFF, CMP, PBNP, GFR, PRO, CBC, ALNE FERNANDEZ #### [place] [id number] Glucose [Mass/Vol] 181 mg/dL High 82-115 [facility] Comment on above: Performed By: #### T ROPHS, ADIFF, CMP, PBNP, GFR, PRO, CBC, LANE FERNANDEZ #### [address] [address] Potassium [Moles/Vol] 3.8 mmol/L Normal 3.5-5.0 [facility] Comment on above: Performed By: #### T ROPHS, ADIFF, CMP, PBNP, GFR, PRO, CBC, LANE FERNANDEZ #### [place] [id number] Sodium [Moles/Vol] 142 mmol/L Normal 136-145 [facility] Comment on above: Performed By: #### T ROPHS, ADIFF, CMP, PBNP, GFR, PRO, CBC, LANE FERNANDEZ #### [address] [address] Urea nitrogen [Mass/Vol] 41.0 mg/dL High 8.0-22.0 [facility] Comment on above: Performed By: #### T ROPHS, ADIFF, CMP, PBNP, GFR, PRO, CBC, LANE FERNANDEZ #### [address] [address] CBCon 02-13-2025 Erythrocyte distribution width (RBC) [Ratio] 17.5 % High 11.5-15.5 [facility] Comment on above: Performed By: #### T ROPHS, ADIFF, CMP, PBNP, GFR, PRO, CBC, LANE FERNANDEZ #### [place] [address] Hematocrit (Bld) [Volume fraction] 31.9 % Low 40.0-52.0 [facility] Comment on above: Performed By: #### T EVELYN, ADIFF, CMP, PBNP, GFR, PRO, CBC, LANE FERNANDEZ #### [place] [id number] Hgb 10.7 G/dL Low 13.0-17.5 [facility] Comment on above: Performed By: #### T ROPHS, ADIFF, CMP, PBNP, GFR, PRO, CBC, LANE FERNANDEZ #### [place] [id number] MCH (RBC) [Entitic mass] 28.7 pg Normal 27.0-33.0 [facility] Comment on above: Performed By: #### T EVELYN, ADIFF, CMP, PBNP, GFR, PRO, CBC, LANE FERNANDEZ #### [place] [id number] MCHC 33.7 G/dL Normal 32.0-36.0 [facility] Comment on above: Performed By: #### T EVELYN, ADPHYLLIS, CMP, PBNP, GFR, PRO, CBC, LANE FERNANDEZ #### [place] [address] MCV (RBC) [Entitic vol] 85.2 fL Normal 81.0-100.0 [facility] Comment on above: Performed By: #### T EVELYN, ADIFF, CMP, PBNP, GFR, PRO, CBC, LANE FERNANDEZ #### [place] [address] Platelet 135 10 3/mcL Low 150-450 [facility] Comment on above: Performed By: #### T EVELYN, ADIFF, CMP, PBNP, GFR, PRO, CBC, LANE FERNANDEZ #### [place] [address] Platelet mean volume (Bld) [Entitic vol] 8.3 fL Normal 6.4-10.5 [facility] Comment on above: Performed By: #### T ROPHS, ADIFF, CMP, PBNP, GFR, PRO, CBC, LANE FERNANDEZ #### [place] [address] RBC 3.74 10 6/mcL Low 4.50-6.00 [facility] Comment on above: Performed By: #### T ROPHS, ADIFF, CMP, PBNP, GFR, PRO, CBC, LANE FERNANDEZ #### [place] [address] WBC 6.8 10 3/mcL Normal 4.5-10.8 [facility] Comment on above: Performed By: #### T EVELYN, ADIFF, CMP, PBNP, GFR, PRO, CBC, LANE FERNANDEZ #### [place] [address] LABORATORYOrdered By: SYSTEM SYSTEM on 02-13-2025 Basophils (Bld) [#/Vol] 0.0 103/mcL Normal 0.0 - 0.3 10^3/mcL Workflow SS Basophils/100 WBC (Bld) 0.6 % Normal 0.0 - 2.5 % Workflow SS Calcium [Mass/Vol] 9.5 mg/dL Normal 8.7 - 10. 4 mg/dL ADM SS Chloride [Moles/Vol] 102 mmol/L Normal 98 - 11 0 mEq/L ADM SS CO2 [Moles/Vol] 29 mmol/L Normal 22 - 32 mEq/L ADM SS Creatinine [Mass/Vol] 1.67 mg/dL High 0.60 - 1.40 mg/dL ADM SS Comment on above: Interpretive Data: T esting performed on AbilTo analyzer using enzymatic creatinine methodology. Electrolyte Balance 11.0 mEq/L Normal 4.0 - 15 .0 mEq/L ADM SS Eosinophils (Bld) [#/Vol] 0.1 103/mcL Normal 0.0 - 0.7 10^3/mcL AH Workflow SS Eosinophils/100 WBC (Bld) 1.2 % Normal 0.0 - 6.0 % Workflow SS Erythrocyte distribution width (RBC) [Ratio] 17.5 % High 11.5 - 15.5 % Workflow SS Estimated Glomerular Filtration Rate 41 ml/min/1.73sqm Invalid Interpretation Code Chemistry S Comment on above: Interpretive Data: Stages of Chronic Kidney Disease (CKD) Stage Description eGFR(ml/min/1.73 sq.m.) CKD 1 Normal kidney function or >=90 normal kindney function with possible kidney damage (ex. Proteinuria) CKD 2 Kidney damage with mild loss 60-89 of kidney function CKD 3a Mild to moderate loss of kidney 45-59 function CKD 3b Moderate to severe loss of 30-44 of kindey function CKD 4 Severe loss of kidney function 15-29 CKD 5 Kidney failure <15 Note: (go live 2024) the eGFR calculation was updated to the 2020 CKD-EPI creatinine equation without a race factor to calculate the eGFR results. Glucose [Mass/Vol] 181 mg/dL High 82 - 115 mg/dL ADM SS Hematocrit (Bld) [Volume fraction] 31.9 % Low 40.0 - 52.0 % AH Workflow SS Hemoglobin (Bld) [Mass/Vol] 10.7 G/dL Low 13.0 - 17.5 G/dL AH Workflow SS Lymphocytes (Bld) [#/Vol] 0.5 103/mcL Low 0.9 - 4.3 10^3/mcL AH Workflow SS Lymphocytes/100 WBC (Bld) 7.7 % Low 20.0 - 40.0 % AH Workflow SS MCH (RBC) [Entitic mass] 28.7 pg Normal 27.0 - 33.0 pg AH Workflow SS MCHC 33.7 G/dL Normal 32.0 - 36.0 G/dL AH Workflow SS MCV (RBC) [Entitic vol] 85.2 fL Normal 81.0 - 100.0 fL AH Workflow SS Monocytes (Bld) [#/Vol] 0.7 103/mcL Normal 0.1 - 1.4 10^3/mcL AH Workflow SS Monocytes/100 WBC (Bld) 10.1 % Normal 2.0 - 13.0 % AH Workflow SS Neutrophils (Bld) [#/Vol] 5.4 103/mcL Normal 2.3 - 8.1 10^3/mcL AH Workflow SS Neutrophils/100 WBC (Bld) 80.4 % High 50.0 - 75.0 % AH Workflow SS Platelet mean volume (Bld) [Entitic vol] 8.3 fL Normal 6.4 - 10.5 fL AH Workflow SS Platelets (Bld) [#/Vol] 135 103/mcL Low 150 - 450 10^3/mcL AH Workflow SS Potassium [Moles/Vol] 3.8 mmol/L Normal 3.5 - 5.0 mEq/L AH ADM SS RBC (Bld) [#/Vol] 3.74 106/mcL Low 4.50 - 6.0 0 10^6/mcL AH Workflow SS Sodium [Moles/Vol] 142 mmol/L Normal 136 - 145 mEq/L AH ADM SS Urea nitrogen [Mass/Vol] 41.0 mg/dL High 8.0 - 22.0 mg/dL AH ADM SS Urea nitrogen/Creatinine [Mass ratio] 24.6 ratio High 10.0 - 22.0 ratio AH ADM SS WBC (Bld) [#/Vol] 6.8 103/mcL Normal 4.5 - 10.8 10^3/mcL AH Workflow SS CNPNon 02-07-2025 CNPN Telephone (PHAMTE) BESSY VALVERDE ([id number]) 1945 M Date Time Provider Department 02/07/25 JONATHAN HAWKINS During your visit today, we recorded the following information about you: Jonathan Hawkins [facility] 02/07/2025 2:40 PM Signed [facility] Anticoagulation Episode Summary Anticoagulation Care Providers Provider Role Specialty Phone number George Mata MD [facility] Internal Medicine [phone] Bessy Hernandez Nicolle is a 79 year old year old male patient being evaluated today for a Telemanagement visit. Patient is currently on the following anticoagulant(s) Warfarin. Labs Lab Results Component Value Date INR 2.8 02/07/2025 INR 2.5 01/31/2025 INR 3.2 (A) 01/24/2025 Lab Results Component Value Date HB 11.3 (L) 09/06/2024 HB 12.2 (L) 01/25/2024 HB 12.0 (L) 01/23/2023 Lab Results Component Value Date HCT 33.9 (L) 09/06/2024 HCT 37.8 (L) 01/25/2024 HCT 37.4 (L) 01/23/2023 Lab Results Component Value Date PLT 141 (L) 09/06/2024 PLT 125 (L) 01/25/2024 PLT 128 (L) 01/23/2023 Lab Results Component Value Date CREAT 1.66 (H) 09/06/2024 CREAT 1.30 (H) 01/25/2024 CREAT 1.35 (H) 07/29/2023 No components found for: TBILI3 Lab Results Component Value Date ALT 15 09/06/2024 ALT 20 01/25/2024 ALT 19 07/29/2023 Lab Results Component Value Date AST 21 09/06/2024 AST 24 01/25/2024 AST 27 07/29/2023 Estimated Creatinine Clearance: 33.9 mL/min (A) (based on SCr of 1.66 mg/dL (H)). ALLERGIES No Known Allergies Indication for Warfarin: Anticoagulation Episode Summary Current INR goal: 2.0-3.0 Assessment: INR result of 2.8 is therapeutic Plan: Current Warfarin Dosing As of 02/07/2025 Full warfarin instructions: 5 mg every Mon, Fri; 2.5 mg all other days Called and spoke to patient/caregiver Advised patient to continue current weekly dose as noted above Next home INR check scheduled on 02/14/2025 Patient's caregiver verbalizes understanding of the plan. Patient advised to call the PAC with any medication changes, bleeding/bruising concerns, recent changes in vitamin k consumption, if any procedures are coming up, if they have been ill or in the hospital, and if they have missed any doses of warfarin. Jonathan Hawkins RPh Clinical Pharmacist, Pharmacy Anticoagulation Clinic Pharm[facility] Pager: [phone]. Jonathan Hawkins RPh 02/14/2025 9:55 AM Signed Bessy Valverde was called and reminded to test INR today or as soon as possible. Jonathan Hawkins RPh Allergies As of Date: 02/07/2025 (No Known Allergies) Date Reviewed: 01/10/2025 Reviewed by: Daphney Obando LPN - Fully Assessed Reason for Visit: Anticoagulation Telephone Fu [[id number]] Cmt: Home INR result Prescriptions as of 02/14/2025 - metoprolol succinate ER (TOPROL XL) 25 mg 24 hr tablet Take 25 mg by mouth once daily. - acetaminophen (TYLENOL) 325 mg tablet Take 650 mg by mouth every 4 hours as needed. - bumetanide (BUMEX) 1 mg tablet Take 1 tablet by mouth once daily as needed (weight gain 3 pounds). Or as directed for weight gain, fluid retention. - fyccqdhgn-jbatns-zhxskx ne-scop () 16.2-0.1037 -0.0194 mg per tablet Take 1 tablet by mouth every 6 hours as needed. - albuterol HFA (VENTOLIN HFA) 90 mcg/actuation inhaler USE 2 INHALATIONS 4 TIMES A DAY IF NEEDED - nitroglycerin sublingual (NITROSTAT) 0.4 mg SL tablet Dissolve 1 tablet under the tongue as needed. DISSOLVE ON TONGUE FOR CHEST PAIN. IF NO PAIN RELIEF, CALL 911 - atorvastatin (LIPITOR) 40 mg tablet Take 1 tablet by mouth once daily. - montelukast (SINGULAIR) 10 mg tablet Take 1 tablet by mouth daily at bedtime. For asthma and allergies. - fluticasone-salmeterol (ADVAIR DISKUS) 100-50 mcg/dose inhaler Inhale 1 Puff as instructed two times a day. Rinse mouth out after use with water. - pantoprazole DR (PROTONIX) 20 mg tablet Take 1 tablet by mouth daily before breakfast. Take on empty stomach, 1/2 hr before meal. - warfarin (COUMADIN) 5 mg tablet 5 mg every Thu AND Fr ; 2.5 mg all other days - ENTRESTO 24-26 mg tablet Take 1 tablet by mouth twice daily. - LOW-DOSE ASPIRIN ORAL Take 1 tablet by mouth once daily. - blood sugar diagnostic (BLOOD GLUCOSE TEST) test strip Test blood sugar(s) one times daily. Dx: Type 2 DM - Controlled E11.9 Insulin: No - Blood-Glucose Meter monitoring kit Glucose Meter of Choice - Kit - Dx: Type 2 DM - Controlled E11.9 Problem List As Of Date 02/07/2025 Noted Resolved Coronary atherosclerosis [I25.10] 05/19/2005 PURE HYPERCHOLESTEROLEM [E78.00] 05/19/2005 Gastroesophageal reflux disease without esophag*05/19/2005 Essential hypertension [I10] 05/19/2005 Postsurgical aortocoronary bypass status [Z95.1]06/22/2007 01/27/2019 IRRITABLE COLON [K58.9] 06/22/2007 Asthma, moderate persistent, well- (more content not included)... Normal [facility] CNPNon 01-31-2025 CNPN Telephone (PHAMTE) BESSY VALVERDE ([id number]) 1945 M Date Time Provider Department 01/31/25 JONATHAN HAWKINS PHAMTE During your visit today, we recorded the following information about you: Jonathan Hawkins [facility] 01/31/2025 8:13 AM Signed [facility] Anticoagulation Episode Summary Anticoagulation Care Providers Provider Role Specialty Phone number George Mata MD Responsible Internal Medicine [phone] Bessy Valverde is a 79 year old year old male patient being evaluated today for a Telemanagement visit. Patient is currently on the following anticoagulant(s) Warfarin. Labs Lab Results Component Value Date INR 2.5 01/31/2025 INR 3.2 (A) 01/24/2025 INR 1.8 (A) 01/17/2025 Lab Results Component Value Date HB 11.3 (L) 09/06/2024 HB 12.2 (L) 01/25/2024 HB 12.0 (L) 01/23/2023 Lab Results Component Value Date HCT 33.9 (L) 09/06/2024 HCT 37.8 (L) 01/25/2024 HCT 37.4 (L) 01/23/2023 Lab Results Component Value Date PLT 141 (L) 09/06/2024 PLT 125 (L) 01/25/2024 PLT 128 (L) 01/23/2023 Lab Results Component Value Date CREAT 1.66 (H) 09/06/2024 CREAT 1.30 (H) 01/25/2024 CREAT 1.35 (H) 07/29/2023 No components found for: TBILI3 Lab Results Component Value Date ALT 15 09/06/2024 ALT 20 01/25/2024 ALT 19 07/29/2023 Lab Results Component Value Date AST 21 09/06/2024 AST 24 01/25/2024 AST 27 07/29/2023 Estimated Creatinine Clearance: 33.9 mL/min (A) (based on SCr of 1.66 mg/dL (H)). ALLERGIES No Known Allergies Indication for Warfarin: Anticoagulation Episode Summary Current INR goal: 2.0-3.0 Assessment: INR result of 2.5 is therapeutic Plan: Current Warfarin Dosing As of 01/31/2025 Full warfarin instructions: 5 mg every Mon, Fri; 2.5 mg all other days Called and spoke to patient/caregiver Advised patient to continue current weekly dose as noted above Next home INR check scheduled on 02/07/2025 Patient verbalizes understanding of the plan. Patient advised to call the PAC with any medication changes, bleeding/bruising concerns, recent changes in vitamin k consumption, if any procedures are coming up, if they have been ill or in the hospital, and if they have missed any doses of warfarin. Jonathan Hawkins RPh Clinical Pharmacist, Pharmacy Anticoagulation Clinic Pharmacy Anticoagulation Clinic Pager: [phone]. Jonathan Hawkins RPh 02/07/2025 11:22 AM Signed Bessy Valverde was called and reminded to test INR today or as soon as possible. Jonathan Hawkins RPh Allergies As of Date: 01/31/2025 (No Known Allergies) Date Reviewed: 01/10/2025 Reviewed by: Daphney Obando LPN - Fully Assessed Reason for Visit: Anticoagulation Telephone Fu [[id number]] Cmt: Home INR result Prescriptions as of 02/07/2025 - metoprolol succinate ER (TOPROL XL) 25 mg 24 hr tablet Take 25 mg by mouth once daily. - acetaminophen (TYLENOL) 325 mg tablet Take 650 mg by mouth every 4 hours as needed. - bumetanide (BUMEX) 1 mg tablet Take 1 tablet by mouth once daily as needed (weight gain 3 pounds). Or as directed for weight gain, fluid retention. - ogdxdydgq-vofzsg-dxjlsh ne-scop () 16.2-0.1037 -0.0194 mg per tablet Take 1 tablet by mouth every 6 hours as needed. - albuterol HFA (VENTOLIN HFA) 90 mcg/actuation inhaler USE 2 INHALATIONS 4 TIMES A DAY IF NEEDED - nitroglycerin sublingual (NITROSTAT) 0.4 mg SL tablet Dissolve 1 tablet under the tongue as needed. DISSOLVE ON TONGUE FOR CHEST PAIN. IF NO PAIN RELIEF, CALL 911 - atorvastatin (LIPITOR) 40 mg tablet Take 1 tablet by mouth once daily. - montelukast (SINGULAIR) 10 mg tablet Take 1 tablet by mouth daily at bedtime. For asthma and allergies. - fluticasone-salmeterol (ADVAIR DISKUS) 100-50 mcg/dose inhaler Inhale 1 Puff as instructed two times a day. Rinse mouth out after use with water. - pantoprazole DR (PROTONIX) 20 mg tablet Take 1 tablet by mouth daily before breakfast. Take on empty stomach, 1/2 hr before meal. - warfarin (COUMADIN) 5 mg tablet 5 mg every Thu AND Fr ; 2.5 mg all other days - ENTRESTO 24-26 mg tablet Take 1 tablet by mouth twice daily. - LOW-DOSE ASPIRIN ORAL Take 1 tablet by mouth once daily. - blood sugar diagnostic (BLOOD GLUCOSE TEST) test strip Test blood sugar(s) one times daily. Dx: Type 2 DM - Controlled E11.9 Insulin: No - Blood-Glucose Meter monitoring kit Glucose Meter of Choice - Kit - Dx: Type 2 DM - Controlled E11.9 Problem List As Of Date 01/31/2025 Noted Resolved Coronary atherosclerosis [I25.10] 05/19/2005 PURE HYPERCHOLESTEROLEM [E78.00] 05/19/2005 Gastroesophageal reflux disease without esophag*05/19/2005 Essential hypertension [I10] 05/19/2005 Postsurgical aortocoronary bypass status [Z95.1]06/22/2007 01/27/2019 IRRITABLE COLON [K58.9] 06/22/2007 Asthma, moderate persistent, well-cont (more content not included)... Normal [facility] BESSY VALVERDE ([id number]) 1945 M Date Time Provider Department 01/30/25 GEORGE MATA During your visit today, we recorded the following information about you: Sandi Denton RN 01/30/2025 8:59 AM Signed Patient's Monica calls and states that patient has a history of gout. reports that currently patient's bilateral feet hurt and are swollen. is asking if provider can send in prescription to pharmacy. Advised that patient needs seen in office for evaluation. voices understanding, however patient is declining to come into appointment. will call back if patient decides to come in for appointment. Sandi Denton RN Allergies As of Date: 01/30/2025 (No Known Allergies) Date Reviewed: 01/10/2025 Reviewed by: Daphney Obando LPN - Fully Assessed Reason for Visit: Patient Update [[id number]] Prescriptions as of 01/30/2025 - metoprolol succinate ER (TOPROL XL) 25 mg 24 hr tablet Take 25 mg by mouth once daily. - acetaminophen (TYLENOL) 325 mg tablet Take 650 mg by mouth every 4 hours as needed. - bumetanide (BUMEX) 1 mg tablet Take 1 tablet by mouth once daily as needed (weight gain 3 pounds). Or as directed for weight gain, fluid retention. - fyawzqsnq-mradjc-qgpmot ne-scop () 16.2-0.1037 -0.0194 mg per tablet Take 1 tablet by mouth every 6 hours as needed. - albuterol HFA (VENTOLIN HFA) 90 mcg/actuation inhaler USE 2 INHALATIONS 4 TIMES A DAY IF NEEDED - nitroglycerin sublingual (NITROSTAT) 0.4 mg SL tablet Dissolve 1 tablet under the tongue as needed. DISSOLVE ON TONGUE FOR CHEST PAIN. IF NO PAIN RELIEF, CALL 911 - atorvastatin (LIPITOR) 40 mg tablet Take 1 tablet by mouth once daily. - montelukast (SINGULAIR) 10 mg tablet Take 1 tablet by mouth daily at bedtime. For asthma and allergies. - fluticasone-salmeterol (ADVAIR DISKUS) 100-50 mcg/dose inhaler Inhale 1 Puff as instructed two times a day. Rinse mouth out after use with water. - pantoprazole DR (PROTONIX) 20 mg tablet Take 1 tablet by mouth daily before breakfast. Take on empty stomach, 1/2 hr before meal. - warfarin (COUMADIN) 5 mg tablet 5 mg every Mon AND Fr ; 2.5 mg all other days - ENTRESTO 24-26 mg tablet Take 1 tablet by mouth twice daily. - LOW-DOSE ASPIRIN ORAL Take 1 tablet by mouth once daily. - blood sugar diagnostic (BLOOD GLUCOSE TEST) test strip Test blood sugar(s) one times daily. Dx: Type 2 DM - Controlled E11.9 Insulin: No - Blood-Glucose Meter monitoring kit Glucose Meter of Choice - Kit - Dx: Type 2 DM - Controlled E11.9 Problem List As Of Date 01/30/2025 Noted Resolved Coronary atherosclerosis [I25.10] 05/19/2005 PURE HYPERCHOLESTEROLEM [E78.00] 05/19/2005 Gastroesophageal reflux disease without esophag*05/19/2005 Essential hypertension [I10] 05/19/2005 Postsurgical aortocoronary bypass status [Z95.1]06/22/2007 01/27/2019 IRRITABLE COLON [K58.9] 06/22/2007 Asthma, moderate persistent, well-controlled [J*12/09/2008 Screen for colon cancer [Z12.11] 07/11/2010 12/03/2012 Colon polyp [K63.5] 07/26/2010 07/24/2022 Diverticulosis [K57.90] 07/26/2010 01/27/2019 Occult GI bleeding [R19.5] 08/13/2012 12/03/2012 Positive fecal occult blood test [R19.5] 08/23/2012 12/03/2012 Byers's esophagus [K22.70] 09/10/2012 08/10/2024 Interstitial lung disease (HCC) [J84.9] 03/25/2013 Anticoagulated on Coumadin ( home INR testing) *05/02/2013 11/30/2019 Status post mitral valve replacement [Z95.2] 06/17/2013 Status post implantation of automatic cardiover*06/17/2013 Ventricular tachycardia [I47.20] 06/17/2013 Permanent atrial fibrillation (HCC) [I48.21] 09/28/2019 Impaired fasting glucose [R73.01] 02/21/2015 09/09/2017 Controlled type 2 diabetes mellitus with stage *07/28/2007 Aortic valve stenosis [I35.0] 01/06/2018 Chronic systolic heart failure (HCC) [I50.22] 01/06/2018 Other insomnia [G47.09] 12/02/2018 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 [Z79.*01/26/2019 CKD (chronic kidney disease) stage 3, GFR 30-59*01/29/2019 11/30/2019 Gout of foot [M10.9] 11/30/2019 Anemia due to stage 3 chronic kidney disease (H*01/17/2020 Thrombocytopenia (HCC) [D69.6] 01/17/2020 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*07/17/2021 PVD (peripheral vascular disease) with claudica*07/29/2023 Lumbosacral radiculopathy [M54.17] 11/01/2024 Encounter Status:Closed by SANDI DENTON on 01/30/25 [facility] 01-24-2025 CNPN Telephone (PHAMTE) BESSY VALVERDE ([id number]) 1945 M Date Time Provider Department 01/24/25 JONATHAN HAWKINS During your visit today, we recorded the following information about you: Jonathan Hawkins RPh 01/24/2025 8:17 AM Signed [facility] Anticoagulation Episode Summary Anticoagulation Care Providers Provider Role Specialty Phone number George Mata MD [facility] Internal Medicine [phone] Bessy Valverde is a 79 year old year old male patient being evaluated today for a Telemanagement visit. Patient is currently on the following anticoagulant(s) Warfarin. Labs Lab Results Component Value Date INR 3.2 (A) 01/24/2025 INR 1.8 (A) 01/17/2025 INR 2.3 01/10/2025 Lab Results Component Value Date HB 11.3 (L) 09/06/2024 HB 12.2 (L) 01/25/2024 HB 12.0 (L) 01/23/2023 Lab Results Component Value Date HCT 33.9 (L) 09/06/2024 HCT 37.8 (L) 01/25/2024 HCT 37.4 (L) 01/23/2023 Lab Results Component Value Date PLT 141 (L) 09/06/2024 PLT 125 (L) 01/25/2024 PLT 128 (L) 01/23/2023 Lab Results Component Value Date CREAT 1.66 (H) 09/06/2024 CREAT 1.30 (H) 01/25/2024 CREAT 1.35 (H) 07/29/2023 No components found for: TBILI3 Lab Results Component Value Date ALT 15 09/06/2024 ALT 20 01/25/2024 ALT 19 07/29/2023 Lab Results Component Value Date AST 21 09/06/2024 AST 24 01/25/2024 AST 27 07/29/2023 Estimated Creatinine Clearance: 33.9 mL/min (A) (based on SCr of 1.66 mg/dL (H)). ALLERGIES No Known Allergies Indication for Warfarin: Anticoagulation Episode Summary Current INR goal: 2.0-3.0 Assessment: INR result of 3.2 is SUPRAtherapeutic due to: No obvious cause (patient denies medication change, grapefruit/cranberry/po megranate/memo ingestion, OTC medication use, change in herbal/nutritional supplement, accidental overdosage, change in warfarin tablet shape or color, change in vit K consumption, recent illness (NVD, fever), any changes to general health, changes in tobacco use, or EtOH consumption) Plan: Current Warfarin Dosing As of 01/24/2025 Full warfarin instructions: 5 mg every Mon, Fri; 2.5 mg all other days Called and spoke to patient/caregiver spouse Advised patient to continue current weekly dose as noted above Next home INR check scheduled on 01/31/2025 Patient's caregiver verbalizes understanding of the plan. Patient advised to call the PAC with any medication changes, bleeding/bruising concerns, recent changes in vitamin k consumption, if any procedures are coming up, if they have been ill or in the hospital, and if they have missed any doses of warfarin. Jonathan Hawkins [facility] Clinical Pharmacist, Pharmacy Anticoagulation Clinic Pharmacy Anticoagulation Clinic Pager: [phone]. Allergies As of Date: 01/24/2025 (No Known Allergies) Date Reviewed: 01/10/2025 Reviewed by: Daphney Obando LPN - Fully Assessed Reason for Visit: Anticoagulation Telephone Fu [148] Cmt: Home INR result Prescriptions as of 01/24/2025 - metoprolol succinate ER (TOPROL XL) 25 mg 24 hr tablet Take 25 mg by mouth once daily. - acetaminophen (TYLENOL) 325 mg tablet Take 650 mg by mouth every 4 hours as needed. - bumetanide (BUMEX) 1 mg tablet Take 1 tablet by mouth once daily as needed (weight gain 3 pounds). Or as directed for weight gain, fluid retention. - mtjfjlwuk-pqdhvm-djxycj ne-scop () 16.2-0.1037 -0.0194 mg per tablet Take 1 tablet by mouth every 6 hours as needed. - albuterol HFA (VENTOLIN HFA) 90 mcg/actuation inhaler USE 2 INHALATIONS 4 TIMES A DAY IF NEEDED - nitroglycerin sublingual (NITROSTAT) 0.4 mg SL tablet Dissolve 1 tablet under the tongue as needed. DISSOLVE ON TONGUE FOR CHEST PAIN. IF NO PAIN RELIEF, CALL 911 - atorvastatin (LIPITOR) 40 mg tablet Take 1 tablet by mouth once daily. - montelukast (SINGULAIR) 10 mg tablet Take 1 tablet by mouth daily at bedtime. For asthma and allergies. - fluticasone-salmeterol (ADVAIR DISKUS) 100-50 mcg/dose inhaler Inhale 1 Puff as instructed two times a day. Rinse mouth out after use with water. - pantoprazole DR (PROTONIX) 20 mg tablet Take 1 tablet by mouth daily before breakfast. Take on empty stomach, 1/2 hr before meal. - warfarin (COUMADIN) 5 mg tablet 5 mg every Mon AND Fr ; 2.5 mg all other days - ENTRESTO 24-26 mg tablet Take 1 tablet by mouth twice daily. - LOW-DOSE ASPIRIN ORAL Take 1 tablet by mouth once daily. - blood sugar diagnostic (BLOOD GLUCOSE TEST) test strip Test blood sugar(s) one times daily. Dx: Type 2 DM - Controlled E11.9 Insulin: No - Blood-Glucose Meter monitoring kit Glucose Meter of Choice - Kit - Dx: Type 2 DM - Controlled E11.9 Problem List As Of Date 01/24/2025 Noted Resolved Coronary atherosclerosis [I25.10] 05/19/2005 PURE HYPERCHOLESTEROLEM [E78.00] 1 (more content not included)... Normal [facility] 01-17-2025 CNPN Telephone (PHAMTE) BESSY VALVERDE ([id number]) 1945 M Date Time Provider Department 01/17/25 JONATHAN HAWKINS During your visit today, we recorded the following information about you: Jonathan Hawkins [facility] 01/17/2025 10:34 AM Signed [facility] Anticoagulation Episode Summary Anticoagulation Care Providers Provider Role Specialty Phone number George Mata MD [facility] Internal Medicine [phone] Bessy Valverde is a 79 year old year old male patient being evaluated today for a Telemanagement visit. Patient is currently on the following anticoagulant(s) Warfarin. Labs Lab Results Component Value Date INR 1.8 (A) 01/17/2025 INR 2.3 01/10/2025 INR 3.2 (A) 12/13/2024 Lab Results Component Value Date HB 11.3 (L) 09/06/2024 HB 12.2 (L) 01/25/2024 HB 12.0 (L) 01/23/2023 Lab Results Component Value Date HCT 33.9 (L) 09/06/2024 HCT 37.8 (L) 01/25/2024 HCT 37.4 (L) 01/23/2023 Lab Results Component Value Date PLT 141 (L) 09/06/2024 PLT 125 (L) 01/25/2024 PLT 128 (L) 01/23/2023 Lab Results Component Value Date CREAT 1.66 (H) 09/06/2024 CREAT 1.30 (H) 01/25/2024 CREAT 1.35 (H) 07/29/2023 No components found for: TBILI3 Lab Results Component Value Date ALT 15 09/06/2024 ALT 20 01/25/2024 ALT 19 07/29/2023 Lab Results Component Value Date AST 21 09/06/2024 AST 24 01/25/2024 AST 27 07/29/2023 Estimated Creatinine Clearance: 33.9 mL/min (A) (based on SCr of 1.66 mg/dL (H)). ALLERGIES No Known Allergies Indication for Warfarin: Anticoagulation Episode Summary Current INR goal: 2.0-3.0 Assessment: INR result of 1.8 is SUBtherapeutic due to: held doses last week Plan: Current Warfarin Dosing As of 01/17/2025 Full warfarin instructions: 01/17: 5 mg; Otherwise 5 mg every Mon, Fri; 2.5 mg all other days Called and spoke to patient/caregiver Advised patient to increase dose for 1 day only then resume weekly regimen Next home INR check scheduled on 01/24/2025 Patient verbalizes understanding of the plan. Patient advised to call the PAC with any medication changes, bleeding/bruising concerns, recent changes in vitamin k consumption, if any procedures are coming up, if they have been ill or in the hospital, and if they have missed any doses of warfarin. Jonathan Hawkins [facility] Clinical Pharmacist, Pharmacy Anticoagulation Clinic Pharmacy Anticoagulation Clinic Pager: [phone]. Allergies As of Date: 01/17/2025 (No Known Allergies) Date Reviewed: 01/10/2025 Reviewed by: Daphney Obando LPN - Fully Assessed Reason for Visit: Anticoagulation Telephone Fu [[id number]] Cmt: Home INR result Prescriptions as of 01/17/2025 - metoprolol succinate ER (TOPROL XL) 25 mg 24 hr tablet Take 25 mg by mouth once daily. - acetaminophen (TYLENOL) 325 mg tablet Take 650 mg by mouth every 4 hours as needed. - bumetanide (BUMEX) 1 mg tablet Take 1 tablet by mouth once daily as needed (weight gain 3 pounds). Or as directed for weight gain, fluid retention. - iqodruyhq-hrbkwo-gazkgj ne-scop () 16.2-0.1037 -0.0194 mg per tablet Take 1 tablet by mouth every 6 hours as needed. - albuterol HFA (VENTOLIN HFA) 90 mcg/actuation inhaler USE 2 INHALATIONS 4 TIMES A DAY IF NEEDED - nitroglycerin sublingual (NITROSTAT) 0.4 mg SL tablet Dissolve 1 tablet under the tongue as needed. DISSOLVE ON TONGUE FOR CHEST PAIN. IF NO PAIN RELIEF, CALL 911 - atorvastatin (LIPITOR) 40 mg tablet Take 1 tablet by mouth once daily. - montelukast (SINGULAIR) 10 mg tablet Take 1 tablet by mouth daily at bedtime. For asthma and allergies. - fluticasone-salmeterol (ADVAIR DISKUS) 100-50 mcg/dose inhaler Inhale 1 Puff as instructed two times a day. Rinse mouth out after use with water. - pantoprazole DR (PROTONIX) 20 mg tablet Take 1 tablet by mouth daily before breakfast. Take on empty stomach, 1/2 hr before meal. - warfarin (COUMADIN) 5 mg tablet 5 mg every Thu AND Fr ; 2.5 mg all other days - ENTRESTO 24-26 mg tablet Take 1 tablet by mouth twice daily. - LOW-DOSE ASPIRIN ORAL Take 1 tablet by mouth once daily. - blood sugar diagnostic (BLOOD GLUCOSE TEST) test strip Test blood sugar(s) one times daily. Dx: Type 2 DM - Controlled E11.9 Insulin: No - Blood-Glucose Meter monitoring kit Glucose Meter of Choice - Kit - Dx: Type 2 DM - Controlled E11.9 Problem List As Of Date 01/17/2025 Noted Resolved Coronary atherosclerosis [I25.10] 05/19/2005 PURE HYPERCHOLESTEROLEM [E78.00] 05/19/2005 Gastroesophageal reflux disease without esophag*05/19/2005 Essential hypertension [I10] 05/19/2005 Postsurgical aortocoronary bypass status [Z95.1]06/22/2007 01/27/2019 IRRITABLE COLON [K58.9] 06/22/2007 Asthma, moderate persistent, well-controlled [J*12/09/2008 Screen for colon cancer [Z12.11] 07/11/2010 (more content not included)... Normal [facility] CNOVon 01-10-2025 CNOV Office Visit (INTMWS ) BESSY VALVERDE ([id number]) 1945 M Date Time Provider Department 01/10/25 11:20 AM GEORGE MATA INTMWS During your visit today, we recorded the following information about you: Pulse Blood pressure Weight 68/minute 110/62 80.9 kg George Mata MD 01/10/2025 1:17 PM Signed This note was created using [employer]. Subjective Patient presents with: Hospital F/U Bessy Valverde is a 79 year old male here with . Recording using [employer] software for draft documentation of the visit was discussed with the patient/authorized industrial sales representative; all questions welcomed and answered. Patient/authorized industrial sales representative agreed to proceed Paroxysmal Atrial Fibrillation: - Recent hospitalization from 12/31 to 01/04 for paroxysmal atrial fibrillation with failure of sotalol. - Reports previous episodes of tachycardia and palpitations, with a heart rate of 124 bpm prompting ER visit. - Symptoms have mostly resolved; occasional palpitations noted. - Pacemaker in place; follow-up appointment scheduled for battery evaluation. - Sotalol discontinued; currently on metoprolol. 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 CHF with Reduced EF: - Reports dyspnea consistent with baseline asthma symptoms. - Spironolactone discontinued during hospitalization. - Continues to take Entresto. - Bumetanide use adjusted to PRN based on weight gain of 3 lbs over 3 days. CAD: - History of valve replacement in 2012 and 2017. Acute Kidney Injury: - Recent hospitalization included diagnosis of acute kidney injury. Skin Cancer: - Scheduled for excision of a cancerous lesion on the left face this . - Biopsy confirmed malignancy; specific type not mentioned. - Bessy has a history of chewing snuff; advised to abstain post-surgery for better healing. Diabetes Mellitus: - Blood glucose levels range from 105 to 118 mg/dL in the morning before eating; one reading of 98 mg/dL noted. Review of Systems Cardiovascular: (+) palpitations Respiratory: (+) dyspnea Skin: (+) neck skin lesion ACTIVE PROBLEM LIST Coronary Atherosclerosis Pure Hypercholesterolemia Gastroesophageal Reflux Disease Without Esophagitis Essential Hypertension Irritable Bowel Syndrome Asthma, Moderate Persistent, Well-Controlled (Hcc) Interstitial Lung Disease (Hcc) Status Post Mitral Valve Replacement Status Post Implantation of Automatic Cardioverter/Defibrilla tor (Aicd) Ventricular Tachycardia (Hcc) Permanent Atrial Fibrillation (Hcc) Controlled Type 2 Diabetes Mellitus With Stage 3 Chronic Kidney Disease, Without Long-Term Current Use of Insulin (Hcc) Aortic Valve Stenosis Chronic Systolic Heart Failure (Hcc) 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 acetaminophen (TYLENOL) 325 mg tablet Take 650 mg by mouth every 4 hours as needed. idaqvfjrc-zrntzk-bkuudg ne-scop () 16.2-0.1037 -0.0194 mg per tablet Take 1 tablet by mouth every 6 hours as needed. albuterol HFA (VENTOLIN HFA) 90 mcg/actuation inhaler USE 2 INHALATIONS 4 TIMES A DAY IF NEEDED nitroglycerin sublingual (NITROSTAT) 0.4 mg SL tablet Dissolve 1 tablet under the tongue as needed. DISSOLVE ON TONGUE FOR CHEST PAIN. IF NO PAIN RELIEF, CALL 911 atorvastatin (LIPITOR) 40 mg tablet Take 1 tablet by mouth once daily. montelukast (SINGULAIR) 10 mg tablet Take 1 tablet by mouth daily at bedtime. For asthma and allergies. fluticasone-salmeterol (ADVAIR DISKUS) 100-50 mcg/dose inhaler Inhale 1 Puff as instructed two times a day. Rinse mouth out after use with water. pantoprazole DR (PROTONIX) 20 mg tablet Take 1 tablet by mouth daily before breakfast. Take on empty stomach, 1/2 hr before meal. warfarin (COUMADIN) 5 mg tablet 5 mg every Mon AND Fr ; 2.5 mg all other days ENTRESTO 24-26 mg tablet Take 1 tablet by mouth twice daily. LOW-DOSE ASPIRIN ORAL Take 1 tablet by mouth once daily. blood sugar diagnostic (BLOOD GLUCOSE TEST) test strip Test blood sugar(s) one times daily. Dx: Type 2 DM - Controlled E11.9 Insulin: No Blood-Glucose Meter monitoring kit Glucose Meter of Choice - Kit - Dx: Type 2 DM - Controlled E11.9 bumetanide (BUMEX) 1 mg tablet Take 1 tablet by mouth once daily as needed (weight gain 3 pounds). Or as directed for weight gain, fluid retention. No current facility-administered medications for this visit. Objective BP 110/62 Pulse 68 Wt 80.9 kg (178 lb 5.6 oz) SpO2 98% B (more content not included)... Normal [facility] BESSY VALVERDE ([id number]) 1945 M Date Time Provider Department 01/10/25 JONATHAN HAWKINS During your visit today, we recorded the following information about you: Jonathan Hawkins RP 01/10/2025 4:25 PM Signed Melanie Scruggs [facility] 01/10/25 4:13 PM Note Pt. called stated pt. INR was 2.3 today. Pt. is having a procedure on 01/12/25. Pt. worried his procedure will not happen if his INR not under 2.0. Pt. requestig a return call at [phone] Jonathan Hawkins RPh 01/10/2025 4:25 PM Signed [facility] Anticoagulation Episode Summary Anticoagulation Care Providers Provider Role Specialty Phone number George Mata MD [facility] Internal Medicine [phone] Bessy Valverde is a 79 year old year old male patient being evaluated today for a Telemanagement visit. Patient is currently on the following anticoagulant(s) Warfarin. Labs Lab Results Component Value Date INR 2.3 01/10/2025 INR 3.2 (A) 12/13/2024 INR 2.8 11/29/2024 Lab Results Component Value Date HB 11.3 (L) 09/06/2024 HB 12.2 (L) 01/25/2024 HB 12.0 (L) 01/23/2023 Lab Results Component Value Date HCT 33.9 (L) 09/06/2024 HCT 37.8 (L) 01/25/2024 HCT 37.4 (L) 01/23/2023 Lab Results Component Value Date PLT 141 (L) 09/06/2024 PLT 125 (L) 01/25/2024 PLT 128 (L) 01/23/2023 Lab Results Component Value Date CREAT 1.66 (H) 09/06/2024 CREAT 1.30 (H) 01/25/2024 CREAT 1.35 (H) 07/29/2023 No components found for: [id number] Lab Results Component Value Date ALT 15 09/06/2024 ALT 20 01/25/2024 ALT 19 07/29/2023 Lab Results Component Value Date AST 21 09/06/2024 AST 24 01/25/2024 AST 27 07/29/2023 Estimated Creatinine Clearance: 33.9 mL/min (A) (based on SCr of 1.66 mg/dL (H)). ALLERGIES No Known Allergies Indication for Warfarin: Anticoagulation Episode Summary Current INR goal: 2.0-3.0 Assessment: INR result of 2.3 is therapeutic Was in [facility] 12/31-01/04 for elevated HR and A fib exacerbation. Plan: Current Warfarin Dosing As of 01/10/2025 Full warfarin instructions: 01/10: Hold; 01/11: Hold; 01/12: Hold; Otherwise 5 mg every Mon, Fri; 2.5 mg all other days Called and spoke to patient/caregiver spouse Patient held for 2 days and will hold for 2 more days prior to derm procedure on 01/12 to remove skin cancer from face. Next home INR check scheduled on 01/17/2025 Patient's caregiver verbalizes understanding of the plan. Patient advised to call the PAC with any medication changes, bleeding/bruising concerns, recent changes in vitamin k consumption, if any procedures are coming up, if they have been ill or in the hospital, and if they have missed any doses of warfarin. Jonathan Hawkins [facility] Clinical Pharmacist, Pharmacy Anticoagulation Clinic Pharmacy Anticoagulation Clinic Pager: [phone]. Allergies As of Date: 01/10/2025 (No Known Allergies) Date Reviewed: 01/10/2025 Reviewed by: Daphney Obando LPN - Fully Assessed Reason for Visit: Anticoagulation Telephone Fu [148] Cmt: Home INR result Prescriptions as of 01/10/2025 - metoprolol succinate ER (TOPROL XL) 25 mg 24 hr tablet Take 25 mg by mouth once daily. - acetaminophen (TYLENOL) 325 mg tablet Take 650 mg by mouth every 4 hours as needed. - bumetanide (BUMEX) 1 mg tablet Take 1 tablet by mouth once daily as needed (weight gain 3 pounds). Or as directed for weight gain, fluid retention. - pvmiparsy-clkczu-jtnnip ne-scop () 16.2-0.1037 -0.0194 mg per tablet Take 1 tablet by mouth every 6 hours as needed. - albuterol HFA (VENTOLIN HFA) 90 mcg/actuation inhaler USE 2 INHALATIONS 4 TIMES A DAY IF NEEDED - nitroglycerin sublingual (NITROSTAT) 0.4 mg SL tablet Dissolve 1 tablet under the tongue as needed. DISSOLVE ON TONGUE FOR CHEST PAIN. IF NO PAIN RELIEF, CALL 911 - atorvastatin (LIPITOR) 40 mg tablet Take 1 tablet by mouth once daily. - montelukast (SINGULAIR) 10 mg tablet Take 1 tablet by mouth daily at bedtime. For asthma and allergies. - fluticasone-salmeterol (ADVAIR DISKUS) 100-50 mcg/dose inhaler Inhale 1 Puff as instructed two times a day. Rinse mouth out after use with water. - pantoprazole DR (PROTONIX) 20 mg tablet Take 1 tablet by mouth daily before breakfast. Take on empty stomach, 1/2 hr before meal. - warfarin (COUMADIN) 5 mg tablet 5 mg every Mon AND Fr ; 2.5 mg all other days - ENTRESTO 24-26 mg tablet Take 1 tablet by mouth twice daily. - LOW-DOSE ASPIRIN ORAL Take 1 tablet by mouth once daily. - blood sugar diagnostic (BLOOD GLUCOSE TEST) test strip Test blood sugar(s) one times daily. Dx: Type 2 DM - Controlled E11.9 Insulin: No - Blood-Glucose Meter monitoring kit Glucose Meter of Choice - Kit - Dx: Type 2 DM - Controlled E11.9 Problem List As Of Date 01/10/2025 Noted Resolv (more content not included)... Normal [facility] .GFRon 01-09-2025 Estimated Glomerular Filtration Rate 43 ml/min/1.73sqm Normal [facility] Comment on above: Result Comment: Stages of Chronic Kidney Disease (CKD) Stage Description eGFR(ml/min/1.73 sq.m.) CKD 1 Normal kidney function or >=90 normal kindney function with possible kidney damage (ex. Proteinuria) CKD 2 Kidney damage with mild loss 60-89 of kidney function CKD 3a Mild to moderate loss of kidney 45-59 function CKD 3b Moderate to severe loss of 30-44 of kindey function CKD 4 Severe loss of kidney function 15-29 CKD 5 Kidney failure <15 Note: (go live 2024) the eGFR calculation was updated to the 2020 CKD-EPI creatinine equation without a race factor to calculate the eGFR results. Performed By: #### PRO CLEMENTINA BMP #### [address] [address] BMPon 01-09-2025 BUN/Creatinine Ratio 22 ratio Normal 7-27 [facility] Comment on above: Performed By: #### PRO CLEMENTINA, BMP #### [address] [address] Calcium [Mass/Vol] 9.1 mg/dL Normal 8.4-10.2 [facility] Comment on above: Performed By: #### Camille GOODSON PRO, BMP #### [address] [address] Chloride [Moles/Vol] 102 mmol/L Normal 98-107 [facility] Comment on above: Performed By: #### Camille GOODSON PRO, BMP #### [address] [address] CO2 [Moles/Vol] 28 mmol/L Normal 23-31 [facility] Comment on above: Performed By: #### PRO CLEMENTINA, BMP #### [address] [address] Creatinine [Mass/Vol] 1.62 mg/dL High 0.67-1.17 [facility] Comment on above: Performed By: #### PRO CLEMENTINA, BMP #### [address] [address] Electrolyte Balance 9.0 mEq/L Normal 4.0-15.0 [facility] Comment on above: Performed By: #### PRO CLEMENTINA, BMP #### [address] [address] Glucose [Mass/Vol] 219 mg/dL High 83-110 [facility] Comment on above: Performed By: #### PRO CLEMENTINA, BMP #### [address] [address] Potassium [Moles/Vol] 3.8 mmol/L Normal 3.5-5.1 [facility] Comment on above: Performed By: #### PRO CLEMENTINA, BMP #### [address] [address] Sodium [Moles/Vol] 139 mmol/L Normal 136-145 [facility] Comment on above: Performed By: #### PRO CLEMENTINA, BMP #### [address] [address] Urea nitrogen [Mass/Vol] 35 mg/dL High 7-18 [facility] Comment on above: Performed By: #### Camille GOODSON PRO, BMP #### [address] [address] LABORATORYOrdered By: SYSTEM SYSTEM on 01-09-2025 Calcium [Mass/Vol] 9.1 mg/dL Normal 8.4 - 10. 2 mg/dL AO ADM SS Chloride [Moles/Vol] 102 mmol/L Normal 98 - 10 7 mmol/L AO ADM SS CO2 [Moles/Vol] 28 mmol/L Normal 23 - 31 mmol/L AO ADM SS Creatinine [Mass/Vol] 1.62 mg/dL High 0.67 - 1.17 mg/dL AO ADM SS Electrolyte Balance 9.0 mEq/L Normal 4.0 - 15 .0 mEq/L AO ADM SS Estimated Glomerular Filtration Rate 43 ml/min/1.73sqm Invalid Interpretation Code AO Chemistry S Comment on above: Interpretive Data: Stages of Chronic Kidney Disease (CKD) Stage Description eGFR(ml/min/1.73 sq.m.) CKD 1 Normal kidney function or >=90 normal kindney function with possible kidney damage (ex. Proteinuria) CKD 2 Kidney damage with mild loss 60-89 of kidney function CKD 3a Mild to moderate loss of kidney 45-59 function CKD 3b Moderate to severe loss of 30-44 of kindey function CKD 4 Severe loss of kidney function 15-29 CKD 5 Kidney failure <15 Note: (go live 2024) the eGFR calculation was updated to the 2020 CKD-EPI creatinine equation without a race factor to calculate the eGFR results. Glucose [Mass/Vol] 219 mg/dL High 83 - 110 mg/dL AO ADM SS INR Coag (PPP) [Relative time] 2.8 {INR} Invalid Interpretation Code AO [facility] Comment on above: Interpretive Data: Reid pacheco [employer] (CHEST, 1992, 102:312S-25S) recommended therapeutic range for oral anticoagulant therapy is: LOW RISK: Prophylaxis of venous thrombosis INR: 2.0-3.0 Treatment of pulmonary embolism 2.0-3.0 Prevention of systemic embolism 2.0-3.0 HIGH RISK: Mechanical prosthetic valves 2.5-3.5 Potassium [Moles/Vol] 3.8 mmol/L Normal 3.5 - 5.1 mmol/L AO ADM SS PT Coag (PPP) [Time] 32.1 s High 9.0 - 1 4.4 seconds AO [facility] SS Sodium [Moles/Vol] 139 mmol/L Normal 136 - 145 mmol/L AO ADM SS Urea nitrogen [Mass/Vol] 35 mg/dL High 7 - 18 mg/dL AO ADM SS Urea nitrogen/Creatinine [Mass ratio] 22 ratio Normal 7 - 27 ratio AO ADM SS PROon 01-09-2025 PT Coag (PPP) [Time] 32.1 s High 9.0-14.4 [facility] Comment on above: Performed By: #### G FR, PRO, BMP #### [facility] [address], [place] [address] PT International Ratio 2.8 Normal [facility] Comment on above: Result Comment: [employer] (CHEST, 1992, 102:312S-25S) recommended therapeutic range for oral anticoagulant therapy is: LOW RISK: Prophylaxis of venous thrombosis INR: 2.0-3.0 Treatment of pulmonary embolism 2.0-3.0 Prevention of systemic embolism 2.0-3.0 HIGH RISK: Mechanical prosthetic valves 2.5-3.5 Performed By: #### G FR, PRO, BMP #### [facility] [address], [place] [address] [facility] 01-05-2025 CNPN Telephone (INTMWS) BESSY VALVERDE ([id number]) 1945 M Date Time Provider Department 01/05/25 GEORGE MATA INTWS During your visit today, we recorded the following information about you: Sandi Denton, RN 01/05/2025 3:22 PM Signed TRANSITION CARE MANAGEMENT (TCM) INITIAL CONTACT 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 Patient has to have skin cancer removed from his face in a couple of weeks. Patient was admitted to [place] on Thursday12/31/2024 Initial contact with patient post discharge, spoke to spouse. Patient identified by name and . TRANSITION CARE MANAGEMENT INITIAL OUTREACH DOCUMENTATION: No data to display SUMMARY: -Pt discharged from [facility] on 01/04/2025. -Admitted for: Atrial Fibrillation Do you have a hospital follow up appointment with your PCP? Appointment on 01/09/2025 10:[address] Mata. Yes. Remind patient of appointment date, time, and location. If not within 14 calendar days of discharge - please reschedule accordingly. MEDICATIONS: Many patients have questions or concerns about their medications once they are home. Were you prescribed any new medications? If yes, what are those medications? Entresto restarted Metoprolol Were you told to hold any medications? No Were any of your medications discontinued? If yes, what are those medications? Sotalol Spironolactone due to low BP Do you have any questions about getting or taking your medications? No Your discharge instructions/After visit Summary (AVS) are important in guiding you through the recovery process. Is there anything I might help you understand? No Do you have all the necessary equipment and supplies at home? Yes Medical records from recent hospitalization: Discharge Summary is scanning into documents Allergies As of Date: 01/05/2025 (No Known Allergies) Date Reviewed: 11/01/2024 Reviewed by: Daphney Obando LPN - Fully Assessed Reason for Visit: Patient Update [1234] Prescriptions as of 01/05/2025 - hoxkcgrcr-ujyrua-mnjgwe ne-scop () 16.2-0.1037 -0.0194 mg per tablet Take 1 tablet by mouth every 6 hours as needed. - albuterol HFA (VENTOLIN HFA) 90 mcg/actuation inhaler USE 2 INHALATIONS 4 TIMES A DAY IF NEEDED - nitroglycerin sublingual (NITROSTAT) 0.4 mg SL tablet Dissolve 1 tablet under the tongue as needed. DISSOLVE ON TONGUE FOR CHEST PAIN. IF NO PAIN RELIEF, CALL 911 - atorvastatin (LIPITOR) 40 mg tablet Take 1 tablet by mouth once daily. - montelukast (SINGULAIR) 10 mg tablet Take 1 tablet by mouth daily at bedtime. For asthma and allergies. - fluticasone-salmeterol (ADVAIR DISKUS) 100-50 mcg/dose inhaler Inhale 1 Puff as instructed two times a day. Rinse mouth out after use with water. - pantoprazole DR (PROTONIX) 20 mg tablet Take 1 tablet by mouth daily before breakfast. Take on empty stomach, 1/2 hr before meal. - warfarin (COUMADIN) 5 mg tablet 5 mg every Mon AND Fr ; 2.5 mg all other days - bumetanide (BUMEX) 1 mg tablet Take 1 tablet by mouth once daily. Or as directed for weight gain, fluid retention. - ENTRESTO 24-26 mg tablet Take 1 tablet by mouth twice daily. - sotalol (BETAPACE) 80 mg tablet Take 2 tablets by mouth twice daily. - spironolactone (ALDACTONE) 25 mg tablet Take 25 mg by mouth once daily. - LOW-DOSE ASPIRIN ORAL Take 1 tablet by mouth once daily. - blood sugar diagnostic (BLOOD GLUCOSE TEST) test strip Test blood sugar(s) one times daily. 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]06/22/2007 01/27/2019 IRRITABLE COLON [K58.9] 06/22/2007 Asthma, moderate persistent, well-controlled [J*12/09/2008 Screen for colon cancer [Z12.11] 07/11/2010 12/03/2012 Colon polyp [K63.5] 07/26/2010 07/24/2022 Diverticulosis [K57.90] 07/26/2010 01/27/2019 Occult GI bleeding [R19.5] 08/13/2012 12/03/2012 Positive fecal occult blood test [R19.5] 08/23/2012 12/03/2012 Byers's esophagus [K22.70] 09/10/2012 08/10/2024 Interstitial lung disease (HCC) [J84.9] 03/25/2013 Anticoagulated on Coumadin ( home INR testing) *05/02/2013 11/30/2019 Status post mitral valve replacement [Z95.2] 06/17/2013 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 Normal [facility] .Auto Diffon 01-04-2025 Basophil, Absolute 0.0 10 3/mcL Normal 0.0-0.3 [facility] Comment on above: Performed By: #### T ROPHS, ADIFF, CMP, PBNP, GFR, PRO, CBC, ANEU, MDW #### [address] [address] Basophils/100 WBC (Bld) 0.4 % Normal 0.0-2.5 [facility] Comment on above: Performed By: #### T ROPHS, ADIFF, CMP, PBNP, GFR, PRO, CBC, ANEU, MDW #### [address] [address] Eosinophil, Absolute 0.2 10 3/mcL Normal 0.0-0.7 [facility] Comment on above: Performed By: #### T ROPHS, ADIFF, CMP, PBNP, GFR, PRO, CBC, ANEU, MDW #### [address] [address] Eosinophils/100 WBC (Bld) 2.7 % Normal 0.0-6.0 [facility] Comment on above: Performed By: #### T ROPHS, ADIFF, CMP, PBNP, GFR, PRO, CBC, ANEU, MDW #### [address] [address] Lymphocyte, Absolute 0.8 10 3/mcL Low 0.9-4.3 [facility] Comment on above: Performed By: #### T ROPHS, ADIFF, CMP, PBNP, GFR, PRO, CBC, ANEU, MDW #### [address] [address] Lymphocytes/100 WBC (Bld) 14.0 % Low 20.0-40.0 [facility] Comment on above: Performed By: #### T ROPHS, ADIFF, CMP, PBNP, GFR, PRO, CBC, ANEU, MDW #### [address] [address] Monocyte, Absolute 0.7 10 3/mcL Normal 0.1-1.4 [facility] Comment on above: Performed By: #### T ROPHS, ADIFF, CMP, PBNP, GFR, PRO, CBC, LANE FERNANDEZ #### [address] [address] Monocytes/100 WBC (Bld) 10.8 % Normal 2.0-13.0 [facility] Comment on above: Performed By: #### T ROPHS, ADIFF, CMP, PBNP, GFR, PRO, CBC, ANEULANE #### [address] [address] Neutrophils/100 WBC (Bld) 72.1 % Normal 50.0-75.0 [facility] Comment on above: Performed By: #### T ROBHS, ADIFF, CMP, PBNP, GFR, PRO, CBC, L[address] FERNANDEZ #### [address] [address] .GFRon 01-04-2025 Estimated Glomerular Filtration Rate 45 ml/min/1.73sqm Normal [facility] Comment on above: Result Comment: Stages of Chronic Kidney Disease (CKD) Stage Description eGFR(ml/min/1.73 sq.m.) CKD 1 Normal kidney function or >=90 normal kindney function with possible kidney damage (ex. Proteinuria) CKD 2 Kidney damage with mild loss 60-89 of kidney function CKD 3a Mild to moderate loss of kidney 45-59 function CKD 3b Moderate to severe loss of 30-44 of kindey function CKD 4 Severe loss of kidney function 15-29 CKD 5 Kidney failure <15 Note: (go live 2024) the eGFR calculation was updated to the 2020 CKD-EPI creatinine equation without a race factor to calculate the eGFR results. Performed By: #### T ROPHS, ADIFF, CMP, PBNP, GFR, PRO, CBC, LANE FERNANDEZ #### [address] [address] .NEUABSon 01-04-2025 Neutrophil, Absolute 4.4 10 3/mcL Normal 2.3-8.1 [facility] Comment on above: Performed By: #### T ROPHS, ADIFF, CMP, PBNP, GFR, PRO, CBC, LANE FERNANDEZ #### [address] [address] BMPon 01-04-2025 BUN/Creatinine Ratio 23.9 ratio High 10.0-22.0 [facility] Comment on above: Performed By: #### T ROPHS, ADIFF, CMP, PBNP, GFR, PRO, CBC, LANE FERNANDEZ #### [address] [address] Calcium [Mass/Vol] 9.3 mg/dL Normal 8.7-10.4 [facility] Comment on above: Performed By: #### T ROPHS, ADIFF, CMP, PBNP, GFR, PRO, CBC, LANE FERNANDEZ #### [address] [address] Chloride [Moles/Vol] 101 mmol/L Normal 98-110 [facility] Comment on above: Performed By: #### T ROPHS, ADIFF, CMP, PBNP, GFR, PRO, CBC, LANE FERNANDEZ #### [address] [address] CO2 [Moles/Vol] 26 mmol/L Normal 22-32 [facility] Comment on above: Performed By: #### T ROPHS, ADIFF, CMP, PBNP, GFR, PRO, CBC, LANE FERNANDEZ #### [address] [address] Creatinine [Mass/Vol] 1.55 mg/dL High 0.60-1.40 [facility] Comment on above: Result Comment: Test ing performed on AbilTo analyzer using enzymatic creatinine methodology. Performed By: #### T ROPHS, ADIFF, CMP, PBNP, GFR, PRO, CBC, LANE FERNANDEZ #### [address] [address] Electrolyte Balance 9.0 mEq/L Normal 4.0-15.0 [facility] Comment on above: Performed By: #### T ROPHS, ADIFF, CMP, PBNP, GFR, PRO, CBC, LANE FERNANDEZ #### [place] [id number] Glucose [Mass/Vol] 104 mg/dL Normal 82-115 [facility] Comment on above: Performed By: #### T EVELYN, ADIFF, CMP, PBNP, GFR, PRO, CBC, L[address] FERNANDEZ #### [address] [address] Potassium [Moles/Vol] 4.3 mmol/L Normal 3.5-5.0 [facility] Comment on above: Performed By: #### T ROPHS, ADIFF, CMP, PBNP, GFR, PRO, CBC, LANE FERNANDEZ #### [address] [address] Sodium [Moles/Vol] 136 mmol/L Normal 136-145 [facility] Comment on above: Performed By: #### T EVELYN, ADIFF, CMP, PBNP, GFR, PRO, CBCJIM MDW #### [place] [id number] Urea nitrogen [Mass/Vol] 37.0 mg/dL High 8.0-22.0 [facility] Comment on above: Performed By: #### T ROBHS, ADIFF, CMP, PBNP, GFR, PRO, CBCJIM MDW #### [place] [id number] CBCon 01-04-2025 Erythrocyte distribution width (RBC) [Ratio] 16.7 % High 11.5-15.5 [facility] Comment on above: Performed By: #### T ROPHS, ADIFF, CMP, PBNP, GFR, PRO, CBCJIM MDW #### [place] [id number] Hematocrit (Bld) [Volume fraction] 30.2 % Low 40.0-52.0 [facility] Comment on above: Performed By: #### T ROPHS, ADIFF, CMP, PBNP, GFR, PRO, CBCJIM MDW #### [place] [id number] Hgb 10.2 G/dL Low 13.0-17.5 [facility] Comment on above: Performed By: #### T ROPHS, ADIFF, CMP, PBNP, GFR, PRO, CBC, LANE FERNANDEZ #### [place] [id number] MCH (RBC) [Entitic mass] 28.8 pg Normal 27.0-33.0 [facility] Comment on above: Performed By: #### T ROPHS, ADIFF, CMP, PBNP, GFR, PRO, CBC, LANE FERNANDEZ #### [place] [id number] MCHC 33.8 G/dL Normal 32.0-36.0 [facility] Comment on above: Performed By: #### T ROPHS, ADIFF, CMP, PBNP, GFR, PRO, CBC, LANE FERNANDEZ #### [place] [id number] MCV (RBC) [Entitic vol] 85.2 fL Normal 81.0-100.0 [facility] Comment on above: Performed By: #### T ROPHS, ADIFF, CMP, PBNP, GFR, PRO, CBC, LANE FERNANDEZ #### [place] [address] Platelet 106 10 3/mcL Low 150-450 [facility] Comment on above: Performed By: #### T ROPHS, ADIFF, CMP, PBNP, GFR, PRO, CBC, LANE FERNANDEZ #### [place] [address] Platelet mean volume (Bld) [Entitic vol] 9.4 fL Normal 6.4-10.5 [facility] Comment on above: Performed By: #### T ROPHS, ADIFF, CMP, PBNP, GFR, PRO, CBC, LANE FERNANDEZ #### [place] [address] RBC 3.55 10 6/mcL Low 4.50-6.00 [facility] Comment on above: Performed By: #### T ROPHS, ADIFF, CMP, PBNP, GFR, PRO, CBC, LANE FERNANDEZ #### [place] [id number] WBC 6.1 10 3/mcL Normal 4.5-10.8 [facility] Comment on above: Performed By: #### T ROPHS, ADIFF, CMP, PBNP, GFR, PRO, CBC, ANEU, MDW #### [place] [address] LABORATORYOrdered By: SYSTEM SYSTEM on 01-04-2025 Basophils (Bld) [#/Vol] 0.0 103/mcL Normal 0.0 - 0.3 10^3/mcL AH Workflow SS Basophils/100 WBC (Bld) 0.4 % Normal 0.0 - 2.5 % AH Workflow SS Calcium [Mass/Vol] 9.3 mg/dL Normal 8.7 - 10. 4 mg/dL AH ADM SS Chloride [Moles/Vol] 101 mmol/L Normal 98 - 11 0 mEq/L AH ADM SS CO2 [Moles/Vol] 26 mmol/L Normal 22 - 32 mEq/L AH ADM SS Creatinine [Mass/Vol] 1.55 mg/dL High 0.60 - 1.40 mg/dL AH ADM SS Comment on above: Interpretive Data: T esting performed on Algisys CH analyzer using enzymatic creatinine methodology. Electrolyte Balance 9.0 mEq/L Normal 4.0 - 15 .0 mEq/L AH ADM SS Eosinophils (Bld) [#/Vol] 0.2 103/mcL Normal 0.0 - 0.7 10^3/mcL AH Workflow SS Eosinophils/100 WBC (Bld) 2.7 % Normal 0.0 - 6.0 % AH Workflow SS Erythrocyte distribution width (RBC) [Ratio] 16.7 % High 11.5 - 15.5 % AH Workflow SS Estimated Glomerular Filtration Rate 45 ml/min/1.73sqm Invalid Interpretation Code AH ADM SS Comment on above: Interpretive Data: Stages of Chronic Kidney Disease (CKD) Stage Description eGFR(ml/min/1.73 sq.m.) CKD 1 Normal kidney function or >=90 normal kindney function with possible kidney damage (ex. Proteinuria) CKD 2 Kidney damage with mild loss 60-89 of kidney function CKD 3a Mild to moderate loss of kidney 45-59 function CKD 3b Moderate to severe loss of 30-44 of kindey function CKD 4 Severe loss of kidney function 15-29 CKD 5 Kidney failure <15 Note: (go live 2024) the eGFR calculation was updated to the 2020 CKD-EPI creatinine equation without a race factor to calculate the eGFR results. Glucose [Mass/Vol] 104 mg/dL Normal 82 - 115 mg/dL ADM SS Hematocrit (Bld) [Volume fraction] 30.2 % Low 40.0 - 52.0 % Workflow SS Hemoglobin (Bld) [Mass/Vol] 10.2 G/dL Low 13.0 - 17.5 G/dL AH Workflow SS Lymphocytes (Bld) [#/Vol] 0.8 103/mcL Low 0.9 - 4.3 10^3/mcL Workflow SS Lymphocytes/100 WBC (Bld) 14.0 % Low 20.0 - 40.0 % Workflow SS Magnesium [Mass/Vol] 2.0 mg/dL Normal 1.6 - 2 .4 mg/dL ADM SS MCH (RBC) [Entitic mass] 28.8 pg Normal 27.0 - 33.0 pg Workflow SS MCHC 33.8 G/dL Normal 32.0 - 36.0 G/dL Workflow SS MCV (RBC) [Entitic vol] 85.2 fL Normal 81.0 - 100.0 fL Workflow SS Monocytes (Bld) [#/Vol] 0.7 103/mcL Normal 0.1 - 1.4 10^3/mcL Workflow SS Monocytes/100 WBC (Bld) 10.8 % Normal 2.0 - 13.0 % Workflow SS Neutrophils (Bld) [#/Vol] 4.4 103/mcL Normal 2.3 - 8.1 10^3/mcL Workflow SS Neutrophils/100 WBC (Bld) 72.1 % Normal 50.0 - 75.0 % Workflow SS Platelet mean volume (Bld) [Entitic vol] 9.4 fL Normal 6.4 - 10.5 fL Workflow SS Platelets (Bld) [#/Vol] 106 103/mcL Low 150 - 450 10^3/mcL Workflow SS Potassium [Moles/Vol] 4.3 mmol/L Normal 3.5 - 5.0 mEq/L ADM SS PT Coag (PPP) [Time] 27.3 s High 9.0 - 1 4.4 seconds [facility] SS Comment on above: Interpretive Data: E ffective 02/22/08, Protime results may be affected by some antibiotics (i.e. Ciprofloxacin, Azithromycin, Bactrim) which may potentiate the action of oral anticoagulants, with further increases in Protime/INR. PT International Ratio 2.4 ratio Invalid Interpretation Code [facility] SS Comment on above: Interpretive Data: Reid pacheco [employer] (CHEST, 1991, 102:312S-25S) recommended therapeutic range for oral anticoagulant therapy is: LOW RISK: Prophylaxis of venous thrombosis INR: 2.0-3.0 Treatment of pulmonary embolism 2.0-3.0 Prevention of systemic embolism 2.0-3.0 HIGH RISK: Mechanical prosthetic valves 2.5-3.5 RBC (Bld) [#/Vol] 3.55 106/mcL Low 4.50 - 6.0 0 10^6/mcL Workflow SS Sodium [Moles/Vol] 136 mmol/L Normal 136 - 145 mEq/L AH ADM SS Urea nitrogen [Mass/Vol] 37.0 mg/dL High 8.0 - 22.0 mg/dL ADM SS Urea nitrogen/Creatinine [Mass ratio] 23.9 ratio High 10.0 - 22.0 ratio ADM SS WBC (Bld) [#/Vol] 6.1 103/mcL Normal 4.5 - 10.8 10^3/mcL Workflow SS MGon 01-04-2025 Magnesium [Mass/Vol] 2.0 mg/dL Normal 1.6-2.4 [facility] Comment on above: Performed By: #### T ROPHS, ADIFF, CMP, PBNP, GFR, PRO, CBC, ANEU, MDW #### [address] [address] PROon 01-04-2025 INR Coag (PPP) [Relative time] 2.4 {INR} Normal [facility] Comment on above: Order Comment: order ed secondary to warfarin order Result Comment: [employer] (CHEST, 1991, 102:312S-25S) recommended therapeutic range for oral anticoagulant therapy is: LOW RISK: Prophylaxis of venous thrombosis INR: 2.0-3.0 Treatment of pulmonary embolism 2.0-3.0 Prevention of systemic embolism 2.0-3.0 HIGH RISK: Mechanical prosthetic valves 2.5-3.5 Performed By: #### C BC, GFR, ADIFF, ANEU, PRO, MG, BMP #### [address] [address] PT Coag (PPP) [Time] 27.3 s High 9.0-14.4 [facility] Comment on above: Order Comment: order ed secondary to warfarin order Result Comment: Effe ctive 02/22/08, Protime results may be affected by some antibiotics (i.e. Ciprofloxacin, Azithromycin, Bactrim) which may potentiate the action of oral anticoagulants, with further increases in Protime/INR. Performed By: #### C BC, GFR, ADIFF, ANEU, PRO, MG, BMP #### [address] [address] .Auto Diffon 01-03-2025 Basophil, Absolute 0.0 10 3/mcL Normal 0.0-0.3 [facility] Comment on above: Performed By: #### T ROPHS, ADIFF, CMP, PBNP, GFR, PRO, CBC, ANEU, W #### [place] [id number] Basophils/100 WBC (Bld) 0.6 % Normal 0.0-2.5 [facility] Comment on above: Performed By: #### T ROPHS, ADIFF, CMP, PBNP, GFR, PRO, CBC, LANE FERNANDEZ #### [address] [address] Eosinophil, Absolute 0.2 10 3/mcL Normal 0.0-0.7 [facility] Comment on above: Performed By: #### T ROPHS, ADIFF, CMP, PBNP, GFR, PRO, CBC, LANE FERNANDEZ #### [address] [address] Eosinophils/100 WBC (Bld) 2.5 % Normal 0.0-6.0 [facility] Comment on above: Performed By: #### T ROPHS, ADIFF, CMP, PBNP, GFR, PRO, CBC, ANEULANE #### [place] [id number] Lymphocyte, Absolute 1.0 10 3/mcL Normal 0.9-4.3 [facility] Comment on above: Performed By: #### T ROPHS, ADIFF, CMP, PBNP, GFR, PRO, CBC, ANEU, MDW #### [address] [address] Lymphocytes/100 WBC (Bld) 15.9 % Low 20.0-40.0 [facility] Comment on above: Performed By: #### T ROPHS, ADIFF, CMP, PBNP, GFR, PRO, CBC, ANEU, MDW #### [address] [address] Monocyte, Absolute 0.7 10 3/mcL Normal 0.1-1.4 [facility] Comment on above: Performed By: #### T ROPHS, ADIFF, CMP, PBNP, GFR, PRO, CBC, ANEU, W #### [address] [address] Monocytes/100 WBC (Bld) 10.3 % Normal 2.0-13.0 [facility] Comment on above: Performed By: #### T ROPHS, ADIFF, CMP, PBNP, GFR, PRO, CBC, ANEU, LANE #### [address] [address] Neutrophils/100 WBC (Bld) 70.7 % Normal 50.0-75.0 [facility] Comment on above: Performed By: #### T ROPHS, ADIFF, CMP, PBNP, GFR, PRO, CBC, ANEU, LANE #### [address] [address] .GFRon 01-03-2025 Estimated Glomerular Filtration Rate 45 ml/min/1.73sqm Normal [facility] Comment on above: Result Comment: Stages of Chronic Kidney Disease (CKD) Stage Description eGFR(ml/min/1.73 sq.m.) CKD 1 Normal kidney function or >=90 normal kindney function with possible kidney damage (ex. Proteinuria) CKD 2 Kidney damage with mild loss 60-89 of kidney function CKD 3a Mild to moderate loss of kidney 45-59 function CKD 3b Moderate to severe loss of 30-44 of kindey function CKD 4 Severe loss of kidney function 15-29 CKD 5 Kidney failure <15 Note: (go live 2024) the eGFR calculation was updated to the 2020 CKD-EPI creatinine equation without a race factor to calculate the eGFR results. Performed By: #### T EVELYN, ADIFF, CMP, PBNP, GFR, PRO, CBCJIM MDW #### [place] [address] Estimated Glomerular Filtration Rate 41 ml/min/1.73sqm Normal [facility] Comment on above: Result Comment: Stages of Chronic Kidney Disease (CKD) Stage Description eGFR(ml/min/1.73 sq.m.) CKD 1 Normal kidney function or >=90 normal kindney function with possible kidney damage (ex. Proteinuria) CKD 2 Kidney damage with mild loss 60-89 of kidney function CKD 3a Mild to moderate loss of kidney 45-59 function CKD 3b Moderate to severe loss of 30-44 of kindey function CKD 4 Severe loss of kidney function 15-29 CKD 5 Kidney failure <15 Note: (go live 2024) the eGFR calculation was updated to the 2020 CKD-EPI creatinine equation without a race factor to calculate the eGFR results. Performed By: #### T EVELYN, ADIFF, CMP, PBNP, GFR, PRO, CBC, LANE FERNANDEZ #### [address] [address] .NEUABSon 01-03-2025 Neutrophil, Absolute 4.5 10 3/mcL Normal 2.3-8.1 [facility] Comment on above: Performed By: #### T EVELYN, ADIFF, CMP, PBNP, GFR, PRO, CBC, LANE FERNANDEZ #### [address] [address] BMPon 01-03-2025 BUN/Creatinine Ratio 27.3 ratio High 10.0-22.0 [facility] Comment on above: Performed By: #### T EVELYN, ADIFF, CMP, PBNP, GFR, PRO, CBC, LANE FERNANDEZ #### [place] [address] Calcium [Mass/Vol] 8.7 mg/dL Normal 8.7-10.4 [facility] Comment on above: Performed By: #### T EVELYN, ADIFF, CMP, PBNP, GFR, PRO, CBC, LANE FERNANDEZ #### [address] [address] Chloride [Moles/Vol] 102 mmol/L Normal 98-110 [facility] Comment on above: Performed By: #### T EVELYN, ADIFF, CMP, PBNP, GFR, PRO, CBC, LANE FERNANDEZ #### [address] [address] CO2 [Moles/Vol] 27 mmol/L Normal 22-32 [facility] Comment on above: Performed By: #### T EVELYN, ADIFF, CMP, PBNP, GFR, PRO, CBC, LANE FERNANDEZ #### [address] [address] Creatinine [Mass/Vol] 1.54 mg/dL High 0.60-1.40 [facility] Comment on above: Result Comment: Test ing performed on AbilTo analyzer using enzymatic creatinine methodology. Performed By: #### T EVELYN, ADIFF, CMP, PBNP, GFR, PRO, CBC, LANE FERNANDEZ #### [address] [address] Electrolyte Balance 9.0 mEq/L Normal 4.0-15.0 [facility] Comment on above: Performed By: #### T EVELYN, ADIFF, CMP, PBNP, GFR, PRO, CBC, LANE FERNANDEZ #### [address] [address] Glucose [Mass/Vol] 193 mg/dL High 82-115 [facility] Comment on above: Performed By: #### T EVELYN, ADIFF, CMP, PBNP, GFR, PRO, CBC, LANE FERNANDEZ #### [address] [address] Potassium [Moles/Vol] 4.0 mmol/L Normal 3.5-5.0 [facility] Comment on above: Performed By: #### T EVELYN, ADIFF, CMP, PBNP, GFR, PRO, CBC, LANE FERNANDEZ #### [address] [address] Sodium [Moles/Vol] 138 mmol/L Normal 136-145 [facility] Comment on above: Performed By: #### T ROPHS, ADIFF, CMP, PBNP, GFR, PRO, CBC, LANE FERNANDEZ #### [address] [address] Urea nitrogen [Mass/Vol] 42.0 mg/dL High 8.0-22.0 [facility] Comment on above: Performed By: #### T ROPHS, ADIFF, CMP, PBNP, GFR, PRO, CBC, LANE FERNANDEZ #### [address] [address] BUN/Creatinine Ratio 26.5 ratio High 10.0-22.0 [facility] Comment on above: Performed By: #### T ROPHS, ADIFF, CMP, PBNP, GFR, PRO, CBC, LANE FERNANDEZ #### [address] [address] Calcium [Mass/Vol] 9.0 mg/dL Normal 8.7-10.4 [facility] Comment on above: Performed By: #### T ROPHS, ADIFF, CMP, PBNP, GFR, PRO, CBC, LANE FERNANDEZ #### [address] [address] Chloride [Moles/Vol] 103 mmol/L Normal 98-110 [facility] Comment on above: Performed By: #### T ROPHS, ADIFF, CMP, PBNP, GFR, PRO, CBC, LANE FERNANDEZ #### [address] [address] CO2 [Moles/Vol] 26 mmol/L Normal 22-32 [facility] Comment on above: Performed By: #### T ROPHS, ADIFF, CMP, PBNP, GFR, PRO, CBC, LANE FERNANDEZ #### [address] [address] Creatinine [Mass/Vol] 1.66 mg/dL High 0.60-1.40 [facility] Comment on above: Result Comment: Test ing performed on AbilTo analyzer using enzymatic creatinine methodology. Performed By: #### T ROPHS, ADIFF, CMP, PBNP, GFR, PRO, CBC, LANE FERNANDEZ #### [address] [address] Electrolyte Balance 9.0 mEq/L Normal 4.0-15.0 [facility] Comment on above: Performed By: #### T EVELYN, ADIFF, CMP, PBNP, GFR, PRO, CBCJIM MDW #### [address] [address] Glucose [Mass/Vol] 117 mg/dL High 82-115 [facility] Comment on above: Performed By: #### T ROPHS, ADIFF, CMP, PBNP, GFR, PRO, CBCJIM MDW #### [address] [address] Potassium [Moles/Vol] 4.1 mmol/L Normal 3.5-5.0 [facility] Comment on above: Performed By: #### T EVELYN, ADIFF, CMP, PBNP, GFR, PRO, CBCJIM MDW #### [place] [id number] Sodium [Moles/Vol] 138 mmol/L Normal 136-145 [facility] Comment on above: Performed By: #### T EVELYN, ADIFF, CMP, PBNP, GFR, PRO, JIM STARK MDW #### [place] [id number] Urea nitrogen [Mass/Vol] 44.0 mg/dL High 8.0-22.0 [facility] Comment on above: Performed By: #### T EVELYN, ADIFF, CMP, PBNP, GFR, PRO, CBCJIM MDW #### [address] [address] CBCon 01-03-2025 Erythrocyte distribution width (RBC) [Ratio] 16.6 % High 11.5-15.5 [facility] Comment on above: Performed By: #### T ROPHS, ADIFF, CMP, PBNP, GFR, PRO, CBCJIM MDW #### [address] [address] Hematocrit (Bld) [Volume fraction] 31.4 % Low 40.0-52.0 [facility] Comment on above: Performed By: #### T ROPHS, ADIFF, CMP, PBNP, GFR, PRO, CBC, LANE FERNANDEZ #### [place] [id number] Hgb 10.7 G/dL Low 13.0-17.5 [facility] Comment on above: Performed By: #### T ROPHS, ADIFF, CMP, PBNP, GFR, PRO, CBC, LANE FERNANDEZ #### [place] [address] MCH (RBC) [Entitic mass] 29.0 pg Normal 27.0-33.0 [facility] Comment on above: Performed By: #### T ROPHS, ADIFF, CMP, PBNP, GFR, PRO, CBC, LANE FERNANDEZ #### [place] [address] MCHC 34.0 G/dL Normal 32.0-36.0 [facility] Comment on above: Performed By: #### T ROPHS, ADIFF, CMP, PBNP, GFR, PRO, CBC, LANE FERNANDEZ #### [place] [address] MCV (RBC) [Entitic vol] 85.2 fL Normal 81.0-100.0 [facility] Comment on above: Performed By: #### T ROPHS, ADIFF, CMP, PBNP, GFR, PRO, CBC, LANE FERNANDEZ #### [place] [address] Platelet 114 10 3/mcL Low 150-450 [facility] Comment on above: Performed By: #### T ROPHS, ADIFF, CMP, PBNP, GFR, PRO, CBC, LANE FERNANDEZ #### [place] [address] Platelet mean volume (Bld) [Entitic vol] 8.6 fL Normal 6.4-10.5 [facility] Comment on above: Performed By: #### T ROPHS, ADIFF, CMP, PBNP, GFR, PRO, CBC, LANE FERNANDEZ #### [address] [place] [address] RBC 3.68 10 6/mcL Low 4.50-6.00 [facility] Comment on above: Performed By: #### T DANIEL RIVAS, CMP, PBNP, GFR, PRO, CBC, LANE FERNANDEZ #### [facility] [address] [place] [address] WBC 6.4 10 3/mcL Normal 4.5-10.8 [facility] Comment on above: Performed By: #### T DANIEL RIVAS, CMP, PBNP, GFR, PRO, CBC, LANE FERNANDEZ #### [place] [id number] [address] [place] [address] LABORATORYOrdered By: SYSTEM SYSTEM on 01-03-2025 Calcium [Mass/Vol] 8.7 mg/dL Normal 8.7 - 10. 4 mg/dL AH ADM SS Chloride [Moles/Vol] 102 mmol/L Normal 98 - 11 0 mEq/L AH ADM SS CO2 [Moles/Vol] 27 mmol/L Normal 22 - 32 mEq/L AH ADM SS Creatinine [Mass/Vol] 1.54 mg/dL High 0.60 - 1.40 mg/dL AH ADM SS Comment on above: Interpretive Data: T esting performed on AbilTo analyzer using enzymatic creatinine methodology. Electrolyte Balance 9.0 mEq/L Normal 4.0 - 15 .0 mEq/L AH ADM SS Estimated Glomerular Filtration Rate 45 ml/min/1.73sqm Invalid Interpretation Code AH ADM SS Comment on above: Interpretive Data: Stages of Chronic Kidney Disease (CKD) Stage Description eGFR(ml/min/1.73 sq.m.) CKD 1 Normal kidney function or >=90 normal kindney function with possible kidney damage (ex. Proteinuria) CKD 2 Kidney damage with mild loss 60-89 of kidney function CKD 3a Mild to moderate loss of kidney 45-59 function CKD 3b Moderate to severe loss of 30-44 of kindey function CKD 4 Severe loss of kidney function 15-29 CKD 5 Kidney failure <15 Note: (go live 2024) the eGFR calculation was updated to the 2020 CKD-EPI creatinine equation without a race factor to calculate the eGFR results. Glucose [Mass/Vol] 193 mg/dL High 82 - 115 mg/dL AH ADM SS Potassium [Moles/Vol] 4.0 mmol/L Normal 3.5 - 5.0 mEq/L ADM SS Sodium [Moles/Vol] 138 mmol/L Normal 136 - 145 mEq/L ADM SS Urea nitrogen [Mass/Vol] 42.0 mg/dL High 8.0 - 22.0 mg/dL ADM SS Urea nitrogen/Creatinine [Mass ratio] 27.3 ratio High 10.0 - 22.0 ratio ADM SS Basophils (Bld) [#/Vol] 0.0 103/mcL Normal 0.0 - 0.3 10^3/mcL AH Workflow SS Basophils/100 WBC (Bld) 0.6 % Normal 0.0 - 2.5 % Workflow SS Calcium [Mass/Vol] 9.0 mg/dL Normal 8.7 - 10. 4 mg/dL ADM SS Chloride [Moles/Vol] 103 mmol/L Normal 98 - 11 0 mEq/L ADM SS CO2 [Moles/Vol] 26 mmol/L Normal 22 - 32 mEq/L ADM SS Creatinine [Mass/Vol] 1.66 mg/dL High 0.60 - 1.40 mg/dL ADM SS Comment on above: Interpretive Data: T esting performed on Algisys CH analyzer using enzymatic creatinine methodology. Electrolyte Balance 9.0 mEq/L Normal 4.0 - 15 .0 mEq/L ADM SS Eosinophils (Bld) [#/Vol] 0.2 103/mcL Normal 0.0 - 0.7 10^3/mcL AH Workflow SS Eosinophils/100 WBC (Bld) 2.5 % Normal 0.0 - 6.0 % Workflow SS Erythrocyte distribution width (RBC) [Ratio] 16.6 % High 11.5 - 15.5 % Workflow SS Estimated Glomerular Filtration Rate 41 ml/min/1.73sqm Invalid Interpretation Code ADM SS Comment on above: Interpretive Data: Stages of Chronic Kidney Disease (CKD) Stage Description eGFR(ml/min/1.73 sq.m.) CKD 1 Normal kidney function or >=90 normal kindney function with possible kidney damage (ex. Proteinuria) CKD 2 Kidney damage with mild loss 60-89 of kidney function CKD 3a Mild to moderate loss of kidney 45-59 function CKD 3b Moderate to severe loss of 30-44 of kindey function CKD 4 Severe loss of kidney function 15-29 CKD 5 Kidney failure <15 Note: (go live 2024) the eGFR calculation was updated to the 2020 CKD-EPI creatinine equation without a race factor to calculate the eGFR results. Glucose [Mass/Vol] 117 mg/dL High 82 - 115 mg/dL AH ADM SS Hematocrit (Bld) [Volume fraction] 31.4 % Low 40.0 - 52.0 % AH Workflow SS Hemoglobin (Bld) [Mass/Vol] 10.7 G/dL Low 13.0 - 17.5 G/dL AH Workflow SS Lymphocytes (Bld) [#/Vol] 1.0 103/mcL Normal 0.9 - 4.3 10^3/mcL AH Workflow SS Lymphocytes/100 WBC (Bld) 15.9 % Low 20.0 - 40.0 % AH Workflow SS Magnesium [Mass/Vol] 2.1 mg/dL Normal 1.6 - 2 .4 mg/dL AH ADM SS MCH (RBC) [Entitic mass] 29.0 pg Normal 27.0 - 33.0 pg AH Workflow SS MCHC 34.0 G/dL Normal 32.0 - 36.0 G/dL AH Workflow SS MCV (RBC) [Entitic vol] 85.2 fL Normal 81.0 - 100.0 fL AH Workflow SS Monocytes (Bld) [#/Vol] 0.7 103/mcL Normal 0.1 - 1.4 10^3/mcL AH Workflow SS Monocytes/100 WBC (Bld) 10.3 % Normal 2.0 - 13.0 % AH Workflow SS Neutrophils (Bld) [#/Vol] 4.5 103/mcL Normal 2.3 - 8.1 10^3/mcL AH Workflow SS Neutrophils/100 WBC (Bld) 70.7 % Normal 50.0 - 75.0 % AH Workflow SS Platelet mean volume (Bld) [Entitic vol] 8.6 fL Normal 6.4 - 10.5 fL AH Workflow SS Platelets (Bld) [#/Vol] 114 103/mcL Low 150 - 450 10^3/mcL AH Workflow SS Potassium [Moles/Vol] 4.1 mmol/L Normal 3.5 - 5.0 mEq/L AH ADM SS PT Coag (PPP) [Time] 20.7 s High 9.0 - 1 4.4 seconds AH [facility] SS Comment on above: Interpretive Data: E ffective 02/22/08, Protime results may be affected by some antibiotics (i.e. Ciprofloxacin, Azithromycin, Bactrim) which may potentiate the action of oral anticoagulants, with further increases in Protime/INR. PT International Ratio 1.8 ratio Invalid Interpretation Code [facility] SS Comment on above: Interpretive Data: Reid pacheco [employer] (CHEST, 1991, 102:312S-25S) recommended therapeutic range for oral anticoagulant therapy is: LOW RISK: Prophylaxis of venous thrombosis INR: 2.0-3.0 Treatment of pulmonary embolism 2.0-3.0 Prevention of systemic embolism 2.0-3.0 HIGH RISK: Mechanical prosthetic valves 2.5-3.5 RBC (Bld) [#/Vol] 3.68 106/mcL Low 4.50 - 6.0 0 10^6/mcL Workflow SS Sodium [Moles/Vol] 138 mmol/L Normal 136 - 145 mEq/L ADM SS Urea nitrogen [Mass/Vol] 44.0 mg/dL High 8.0 - 22.0 mg/dL ADM SS Urea nitrogen/Creatinine [Mass ratio] 26.5 ratio High 10.0 - 22.0 ratio ADM SS WBC (Bld) [#/Vol] 6.4 103/mcL Normal 4.5 - 10.8 10^3/mcL Workflow SS MGon 01-03-2025 Magnesium [Mass/Vol] 2.1 mg/dL Normal 1.6-2.4 [facility] Comment on above: Performed By: #### T DANIEL RIVAS, CMP, PBNP, GFR, PRO, CBC, ANEU, MDW #### [address] [address] PROon 01-03-2025 INR Coag (PPP) [Relative time] 1.8 {INR} Normal [facility] Comment on above: Order Comment: order ed secondary to warfarin order Result Comment: [employer] (CHEST, 1991, 102:312S-25S) recommended therapeutic range for oral anticoagulant therapy is: LOW RISK: Prophylaxis of venous thrombosis INR: 2.0-3.0 Treatment of pulmonary embolism 2.0-3.0 Prevention of systemic embolism 2.0-3.0 HIGH RISK: Mechanical prosthetic valves 2.5-3.5 Performed By: #### T SYDNEY RIVASIFF, CMP, PBNP, GFR, PRO, CBC, ANEULANE #### [address] [address] PT Coag (PPP) [Time] 20.7 s High 9.0-14.4 [facility] Comment on above: Order Comment: order ed secondary to warfarin order Result Comment: Effe ctive 02/22/08, Protime results may be affected by some antibiotics (i.e. Ciprofloxacin, Azithromycin, Bactrim) which may potentiate the action of oral anticoagulants, with further increases in Protime/INR. Performed By: #### T ROPHS, ADIFF, CMP, PBNP, GFR, PRO, CBC, LANE FERNANDEZ #### [address] [address] .Auto Diffon 01-02-2025 Basophil, Absolute 0.0 10 3/mcL Normal 0.0-0.3 [facility] Comment on above: Performed By: #### T ROPHS, ADIFF, CMP, PBNP, GFR, PRO, CBC, ANEULANE #### [address] [address] Basophils/100 WBC (Bld) 0.6 % Normal 0.0-2.5 [facility] Comment on above: Performed By: #### T ROPHS, ADIFF, CMP, PBNP, GFR, PRO, CBC, ANEU, LANE #### [address] [address] Eosinophil, Absolute 0.2 10 3/mcL Normal 0.0-0.7 [facility] Comment on above: Performed By: #### T ROPHS, ADIFF, CMP, PBNP, GFR, PRO, CBC, ANEULANE #### [address] [address] Eosinophils/100 WBC (Bld) 2.4 % Normal 0.0-6.0 [facility] Comment on above: Performed By: #### T ROPHS, ADIFF, CMP, PBNP, GFR, PRO, CBC, ANEULANE #### [address] [address] Lymphocyte, Absolute 0.9 10 3/mcL Normal 0.9-4.3 [facility] Comment on above: Performed By: #### T ROPHS, ADIFF, CMP, PBNP, GFR, PRO, CBC, ANEULANE #### [address] [address] Lymphocytes/100 WBC (Bld) 12.6 % Low 20.0-40.0 [facility] Comment on above: Performed By: #### T ROPHS, ADIFF, CMP, PBNP, GFR, PRO, CBC, ANEU, LANE #### [address] [address] Monocyte, Absolute 0.8 10 3/mcL Normal 0.1-1.4 [facility] Comment on above: Performed By: #### T ROPHS, ADIFF, CMP, PBNP, GFR, PRO, CBC, ANEU, LANE #### [address] [address] Monocytes/100 WBC (Bld) 10.3 % Normal 2.0-13.0 [facility] Comment on above: Performed By: #### T ROPHS, ADIFF, CMP, PBNP, GFR, PRO, CBC, ANEULANE #### [address] [address] Neutrophils/100 WBC (Bld) 74.1 % Normal 50.0-75.0 [facility] Comment on above: Performed By: #### T ROPHS, ADIFF, CMP, PBNP, GFR, PRO, CBC, ANEU, LANE #### [address] [address] .GFRon 01-02-2025 Estimated Glomerular Filtration Rate 51 ml/min/1.73sqm Normal [facility] Comment on above: Result Comment: Stages of Chronic Kidney Disease (CKD) Stage Description eGFR(ml/min/1.73 sq.m.) CKD 1 Normal kidney function or >=90 normal kindney function with possible kidney damage (ex. Proteinuria) CKD 2 Kidney damage with mild loss 60-89 of kidney function CKD 3a Mild to moderate loss of kidney 45-59 function CKD 3b Moderate to severe loss of 30-44 of kindey function CKD 4 Severe loss of kidney function 15-29 CKD 5 Kidney failure <15 Note: (go live 2024) the eGFR calculation was updated to the 2020 CKD-EPI creatinine equation without a race factor to calculate the eGFR results. Performed By: #### T ROPHS, ADIFF, CMP, PBNP, GFR, PRO, CBC, ANEULANE #### [address] [address] .NEUABSon 01-02-2025 Neutrophil, Absolute 5.4 10 3/mcL Normal 2.3-8.1 [facility] Comment on above: Performed By: #### T EVELYN, ADIFF, CMP, PBNP, GFR, PRO, CBC, LANE FERNANDEZ #### [address] [address] BMPon 01-02-2025 BUN/Creatinine Ratio 28.1 ratio High 10.0-22.0 [facility] Comment on above: Performed By: #### T ROPHS, ADIFF, CMP, PBNP, GFR, PRO, CBC, LANE FERNANDEZ #### [address] [address] Calcium [Mass/Vol] 9.4 mg/dL Normal 8.7-10.4 [facility] Comment on above: Performed By: #### T EVELYN, ADIFF, CMP, PBNP, GFR, PRO, CBC, LANE FERNANDEZ #### [address] [address] Chloride [Moles/Vol] 104 mmol/L Normal 98-110 [facility] Comment on above: Performed By: #### T ROPHS, ADIFF, CMP, PBNP, GFR, PRO, CBC, ANEULANE #### [address] [address] CO2 [Moles/Vol] 28 mmol/L Normal 22-32 [facility] Comment on above: Performed By: #### T ROPHS, ADIFF, CMP, PBNP, GFR, PRO, CBC, LANE FERNANDEZ #### [address] [address] Creatinine [Mass/Vol] 1.39 mg/dL Normal 0.60-1.40 [facility] Comment on above: Result Comment: Test ing performed on AbilTo analyzer using enzymatic creatinine methodology. Performed By: #### T EVELYN, ADIFF, CMP, PBNP, GFR, PRO, CBCJIM MDW #### [address] [address] Electrolyte Balance 8.0 mEq/L Normal 4.0-15.0 [facility] Comment on above: Performed By: #### T ROBHS, ADIFF, CMP, PBNP, GFR, PRO, CBC, LANE FERNANDEZ #### [address] [address] Glucose [Mass/Vol] 104 mg/dL Normal 82-115 [facility] Comment on above: Performed By: #### T EVELYN, ADIFF, CMP, PBNP, GFR, PRO, CBCJIM MDW #### [place] [id number] Potassium [Moles/Vol] 4.1 mmol/L Normal 3.5-5.0 [facility] Comment on above: Performed By: #### T EVELYN, ADIFF, CMP, PBNP, GFR, PRO, CBCJIM MDW #### [address] [address] Sodium [Moles/Vol] 140 mmol/L Normal 136-145 [facility] Comment on above: Performed By: #### T EVELYN, ADIFF, CMP, PBNP, GFR, PRO, CBCJIM MDW #### [address] [address] Urea nitrogen [Mass/Vol] 39.0 mg/dL High 8.0-22.0 [facility] Comment on above: Performed By: #### T ROPHS, ADIFF, CMP, PBNP, GFR, PRO, CBCJIM MDW #### [address] [address] CBCon 01-02-2025 Erythrocyte distribution width (RBC) [Ratio] 16.9 % High 11.5-15.5 [facility] Comment on above: Performed By: #### T ROPHS, ADIFF, CMP, PBNP, GFR, PRO, CBC, LANE FERNANDEZ #### [place] [address] Hematocrit (Bld) [Volume fraction] 32.0 % Low 40.0-52.0 [facility] Comment on above: Performed By: #### T ROPHS, ADIFF, CMP, PBNP, GFR, PRO, CBC, LANE FERNANDEZ #### [place] [id number] Hgb 10.8 G/dL Low 13.0-17.5 [facility] Comment on above: Performed By: #### T ROPHS, ADIFF, CMP, PBNP, GFR, PRO, CBC, LANE FERNANDEZ #### [place] [address] MCH (RBC) [Entitic mass] 28.8 pg Normal 27.0-33.0 [facility] Comment on above: Performed By: #### T ROPHS, ADIFF, CMP, PBNP, GFR, PRO, CBC, LANE FERNANDEZ #### [place] [id number] MCHC 33.8 G/dL Normal 32.0-36.0 [facility] Comment on above: Performed By: #### T ROPHS, ADIFF, CMP, PBNP, GFR, PRO, CBC, LANE FERNANDEZ #### [place] [address] MCV (RBC) [Entitic vol] 85.2 fL Normal 81.0-100.0 [facility] Comment on above: Performed By: #### T ROPHS, ADIFF, CMP, PBNP, GFR, PRO, CBC, LANE FERNANDEZ #### [place] [id number] Platelet 121 10 3/mcL Low 150-450 [facility] Comment on above: Performed By: #### T ROPHS, ADIFF, CMP, PBNP, GFR, PRO, CBC, LANE FERNANDEZ #### [place] [address] Platelet mean volume (Bld) [Entitic vol] 8.2 fL Normal 6.4-10.5 [facility] Comment on above: Performed By: #### T EVELYN, DANIEL, CMP, PBNP, GFR, PRO, CBC, LANE FERNANDEZ #### [place] [address] RBC 3.76 10 6/mcL Low 4.50-6.00 [facility] Comment on above: Performed By: #### T EVELYN, DANIEL, CMP, PBNP, GFR, PRO, CBC, LANE FERNANDEZ #### [place] [address] WBC 7.3 10 3/mcL Normal 4.5-10.8 [facility] Comment on above: Performed By: #### T EVELYN, DANIEL, CMP, PBNP, GFR, PRO, CBC, LANE FERNANDEZ #### [place] [address] LABORATORYOrdered By: SYSTEM SYSTEM on 01-02-2025 Basophils (Bld) [#/Vol] 0.0 103/mcL Normal 0.0 - 0.3 10^3/mcL AH Workflow SS Basophils/100 WBC (Bld) 0.6 % Normal 0.0 - 2.5 % Workflow SS Eosinophils (Bld) [#/Vol] 0.2 103/mcL Normal 0.0 - 0.7 10^3/mcL AH Workflow SS Eosinophils/100 WBC (Bld) 2.4 % Normal 0.0 - 6.0 % AH Workflow SS Erythrocyte distribution width (RBC) [Ratio] 16.9 % High 11.5 - 15.5 % AH Workflow SS Hematocrit (Bld) [Volume fraction] 32.0 % Low 40.0 - 52.0 % AH Workflow SS Hemoglobin (Bld) [Mass/Vol] 10.8 G/dL Low 13.0 - 17.5 G/dL AH Workflow SS Lymphocytes (Bld) [#/Vol] 0.9 103/mcL Normal 0.9 - 4.3 10^3/mcL AH Workflow SS Lymphocytes/100 WBC (Bld) 12.6 % Low 20.0 - 40.0 % AH Workflow SS Magnesium [Mass/Vol] 2.1 mg/dL Normal 1.6 - 2 .4 mg/dL AH ADM SS MCH (RBC) [Entitic mass] 28.8 pg Normal 27.0 - 33.0 pg Workflow SS MCHC 33.8 G/dL Normal 32.0 - 36.0 G/dL Workflow SS MCV (RBC) [Entitic vol] 85.2 fL Normal 81.0 - 100.0 fL Workflow SS Monocytes (Bld) [#/Vol] 0.8 103/mcL Normal 0.1 - 1.4 10^3/mcL Workflow SS Monocytes/100 WBC (Bld) 10.3 % Normal 2.0 - 13.0 % Workflow SS Neutrophils (Bld) [#/Vol] 5.4 103/mcL Normal 2.3 - 8.1 10^3/mcL Workflow SS Neutrophils/100 WBC (Bld) 74.1 % Normal 50.0 - 75.0 % Workflow SS Platelet mean volume (Bld) [Entitic vol] 8.2 fL Normal 6.4 - 10.5 fL Workflow SS Platelets (Bld) [#/Vol] 121 103/mcL Low 150 - 450 10^3/mcL Workflow SS PT Coag (PPP) [Time] 21.2 s High 9.0 - 1 4.4 seconds [facility] Comment on above: Interpretive Data: E ffective 02/22/08, Protime results may be affected by some antibiotics (i.e. Ciprofloxacin, Azithromycin, Bactrim) which may potentiate the action of oral anticoagulants, with further increases in Protime/INR. PT International Ratio 1.8 ratio Invalid Interpretation Code [facility] Comment on above: Interpretive Data: Reid pacheco [employer] (CHEST, 1991, 102:312S-25S) recommended therapeutic range for oral anticoagulant therapy is: LOW RISK: Prophylaxis of venous thrombosis INR: 2.0-3.0 Treatment of pulmonary embolism 2.0-3.0 Prevention of systemic embolism 2.0-3.0 HIGH RISK: Mechanical prosthetic valves 2.5-3.5 RBC (Bld) [#/Vol] 3.76 106/mcL Low 4.50 - 6.0 0 10^6/mcL Workflow SS WBC (Bld) [#/Vol] 7.3 103/mcL Normal 4.5 - 10.8 10^3/mcL Workflow SS MGon 01-02-2025 Magnesium [Mass/Vol] 2.1 mg/dL Normal 1.6-2.4 [facility] Comment on above: Performed By: #### T DANIEL RIVAS, DAMIAN, PBNP, GFR, PRO, CBC, LANE FERNANDEZ #### [facility] [address] [place] [id number] PROon 01-02-2025 INR Coag (PPP) [Relative time] 1.8 {INR} Normal [facility] Comment on above: Order Comment: order ed secondary to warfarin order Result Comment: [employer] (CHEST, 1992, 102:312S-25S) recommended therapeutic range for oral anticoagulant therapy is: LOW RISK: Prophylaxis of venous thrombosis INR: 2.0-3.0 Treatment of pulmonary embolism 2.0-3.0 Prevention of systemic embolism 2.0-3.0 HIGH RISK: Mechanical prosthetic valves 2.5-3.5 Performed By: #### T DANIEL RIVAS, DAMIAN, PBNP, GFR, PRO, CBC, LANE FERNANDEZ #### [address] [address] PT Coag (PPP) [Time] 21.2 s High 9.0-14.4 [facility] Comment on above: Order Comment: order ed secondary to warfarin order Result Comment: Effe ctive 02/22/08, Protime results may be affected by some antibiotics (i.e. Ciprofloxacin, Azithromycin, Bactrim) which may potentiate the action of oral anticoagulants, with further increases in Protime/INR. Performed By: #### T DANIEL RIVAS, DAMIAN, PBNP, GFR, PRO, CBC, LANE FERNANDEZ #### [address] [address] .Auto Diffon 01-01-2025 Basophil, Absolute 0.1 10 3/mcL Normal 0.0-0.3 [facility] Comment on above: Performed By: #### T DANIEL RIVAS, CMP, PBNP, GFR, PRO, CBC, LANE FERNANDEZ #### [address] [address] Basophils/100 WBC (Bld) 0.7 % Normal 0.0-2.5 [facility] Comment on above: Performed By: #### T ROPHS, ADIFF, CMP, PBNP, GFR, PRO, CBC, ANEU, W #### [address] [address] Eosinophil, Absolute 0.2 10 3/mcL Normal 0.0-0.7 [facility] Comment on above: Performed By: #### T ROPHS, ADIFF, CMP, PBNP, GFR, PRO, CBC, ANEU, W #### [address] [address] Eosinophils/100 WBC (Bld) 2.7 % Normal 0.0-6.0 [facility] Comment on above: Performed By: #### T ROPHS, ADIFF, CMP, PBNP, GFR, PRO, CBC, ANEU, W #### [address] [address] Lymphocyte, Absolute 0.8 10 3/mcL Low 0.9-4.3 [facility] Comment on above: Performed By: #### T ROPHS, ADIFF, CMP, PBNP, GFR, PRO, CBC, ANEU, LANE #### [address] [address] Lymphocytes/100 WBC (Bld) 12.2 % Low 20.0-40.0 [facility] Comment on above: Performed By: #### T ROPHS, ADIFF, CMP, PBNP, GFR, PRO, CBC, ANEU, W #### [address] [address] Monocyte, Absolute 0.7 10 3/mcL Normal 0.1-1.4 [facility] Comment on above: Performed By: #### T ROPHS, ADIFF, CMP, PBNP, GFR, PRO, CBC, ANEULANE #### [address] [address] Monocytes/100 WBC (Bld) 10.3 % Normal 2.0-13.0 [facility] Comment on above: Performed By: #### T ROPHS, ADIFF, CMP, PBNP, GFR, PRO, CBC, ANEULANE #### [address] [address] Neutrophils/100 WBC (Bld) 74.1 % Normal 50.0-75.0 [facility] Comment on above: Performed By: #### T DANIEL RIVAS, CMP, PBNP, GFR, PRO, CBC, LANE FERNANDEZ #### [address] [address] .GFRon 01-01-2025 Estimated Glomerular Filtration Rate 56 ml/min/1.73sqm Normal [facility] Comment on above: Result Comment: Stages of Chronic Kidney Disease (CKD) Stage Description eGFR(ml/min/1.73 sq.m.) CKD 1 Normal kidney function or >=90 normal kindney function with possible kidney damage (ex. Proteinuria) CKD 2 Kidney damage with mild loss 60-89 of kidney function CKD 3a Mild to moderate loss of kidney 45-59 function CKD 3b Moderate to severe loss of 30-44 of kindey function CKD 4 Severe loss of kidney function 15-29 CKD 5 Kidney failure <15 Note: (go live 2024) the eGFR calculation was updated to the 2020 CKD-EPI creatinine equation without a race factor to calculate the eGFR results. Performed By: #### T DANIEL RIVAS, CMP, PBNP, GFR, PRO, CBC, LANE FERNANDEZ #### [place] [id number] .NEUABSon 01-01-2025 Neutrophil, Absolute 5.1 10 3/mcL Normal 2.3-8.1 [facility] Comment on above: Performed By: #### T DANIEL RIVAS, CMP, PBNP, GFR, PRO, CBC, LANE FERNANDEZ #### [address] [address] BMPon 01-01-2025 BUN/Creatinine Ratio 29.5 ratio High 10.0-22.0 [facility] Comment on above: Performed By: #### T DANIEL RIVAS, CMP, PBNP, GFR, PRO, CBC, LANE FERNANDEZ #### [address] [address] Calcium [Mass/Vol] 8.9 mg/dL Normal 8.7-10.4 [facility] Comment on above: Performed By: #### T ROPHS, ADIFF, CMP, PBNP, GFR, PRO, CBC, LANE FERNANDEZ #### [address] [address] Chloride [Moles/Vol] 106 mmol/L Normal 98-110 [facility] Comment on above: Performed By: #### T ROPHS, ADIFF, CMP, PBNP, GFR, PRO, CBC, LANE FERNANDEZ #### [address] [address] CO2 [Moles/Vol] 25 mmol/L Normal 22-32 [facility] Comment on above: Performed By: #### T ROPHS, ADIFF, CMP, PBNP, GFR, PRO, CBC, LANE FERNANDEZ #### [address] [address] Creatinine [Mass/Vol] 1.29 mg/dL Normal 0.60-1.40 [facility] Comment on above: Result Comment: Test ing performed on AbilTo analyzer using enzymatic creatinine methodology. Performed By: #### T ROPHS, ADIFF, CMP, PBNP, GFR, PRO, CBC, LANE FERNANDEZ #### [address] [address] Electrolyte Balance 8.0 mEq/L Normal 4.0-15.0 [facility] Comment on above: Performed By: #### T ROPHS, ADIFF, CMP, PBNP, GFR, PRO, CBC, LANE FERNANDEZ #### [address] [address] Glucose [Mass/Vol] 106 mg/dL Normal 82-115 [facility] Comment on above: Performed By: #### T ROPHS, ADIFF, CMP, PBNP, GFR, PRO, CBC, LANE FERNANDEZ #### [address] [address] Potassium [Moles/Vol] 4.1 mmol/L Normal 3.5-5.0 [facility] Comment on above: Performed By: #### T ROPHS, ADIFF, CMP, PBNP, GFR, PRO, CBC, LANE FERNANDEZ #### [place] [id number] Sodium [Moles/Vol] 139 mmol/L Normal 136-145 [facility] Comment on above: Performed By: #### T EVELYN, ADPHYLLIS, CMP, PBNP, GFR, PRO, CBC, LANE FERNANDEZ #### [place] [id number] Urea nitrogen [Mass/Vol] 38.0 mg/dL High 8.0-22.0 [facility] Comment on above: Performed By: #### T EVELYN, ADIFF, CMP, PBNP, GFR, PRO, CBC, LANE FERNANDEZ #### [place] [id number] CBCon 01-01-2025 Erythrocyte distribution width (RBC) [Ratio] 16.9 % High 11.5-15.5 [facility] Comment on above: Performed By: #### T EVELYN, ADIFF, CMP, PBNP, GFR, PRO, CBC, LANE FERNANDEZ #### [place] [id number] Hematocrit (Bld) [Volume fraction] 31.8 % Low 40.0-52.0 [facility] Comment on above: Performed By: #### T EVELYN, ADIFF, CMP, PBNP, GFR, PRO, CBC, LANE FERNANDEZ #### [place] [id number] Hgb 10.8 G/dL Low 13.0-17.5 [facility] Comment on above: Performed By: #### T EVELYN, ADIFF, CMP, PBNP, GFR, PRO, CBC, LANE FERNANDEZ #### [place] [id number] MCH (RBC) [Entitic mass] 29.1 pg Normal 27.0-33.0 [facility] Comment on above: Performed By: #### T ROPNORBERTO, ADIFF, CMP, PBNP, GFR, PRO, CBC, LANE FERNANDEZ #### [place] [phone] MCHC 34.0 G/dL Normal 32.0-36.0 [facility] Comment on above: Performed By: #### T ROPHS, ADIFF, CMP, PBNP, GFR, PRO, CBC, LANE FERNANDEZ #### [place] [address] MCV (RBC) [Entitic vol] 85.5 fL Normal 81.0-100.0 [facility] Comment on above: Performed By: #### T ROPHS, ADIFF, CMP, PBNP, GFR, PRO, CBC, LANE FERNANDEZ #### [place] [address] Platelet 130 10 3/mcL Low 150-450 [facility] Comment on above: Performed By: #### T ROPHS, ADIFF, CMP, PBNP, GFR, PRO, CBC, LANE FERNANDEZ #### [place] [address] Platelet mean volume (Bld) [Entitic vol] 9.2 fL Normal 6.4-10.5 [facility] Comment on above: Performed By: #### T ROPHS, ADIFF, CMP, PBNP, GFR, PRO, CBC, LANE FERNANDEZ #### [place] [id number] RBC 3.72 10 6/mcL Low 4.50-6.00 [facility] Comment on above: Performed By: #### T ROPHS, ADIFF, CMP, PBNP, GFR, PRO, CBC, LANE FERNANDEZ #### [place] [id number] WBC 6.9 10 3/mcL Normal 4.5-10.8 [facility] Comment on above: Performed By: #### T ROPHS, ADIFF, CMP, PBNP, GFR, PRO, CBC, LANE FERNANDEZ #### [place] [address] MGon 01-01-2025 Magnesium [Mass/Vol] 2.1 mg/dL Normal 1.6-2.4 [facility] Comment on above: Performed By: #### T ROPHS, ADIFF, CMP, PBNP, GFR, PRO, CBC, LANE FERNANDEZ #### [place] [id number] PROon 01-01-2025 INR Coag (PPP) [Relative time] 1.9 {INR} Normal [facility] Comment on above: Order Comment: order ed secondary to warfarin order Result Comment: [employer] (CHEST, 1991, 102:312S-25S) recommended therapeutic range for oral anticoagulant therapy is: LOW RISK: Prophylaxis of venous thrombosis INR: 2.0-3.0 Treatment of pulmonary embolism 2.0-3.0 Prevention of systemic embolism 2.0-3.0 HIGH RISK: Mechanical prosthetic valves 2.5-3.5 Performed By: #### T EVELYN, ADIFF, CMP, PBNP, GFR, PRO, CBC, LANE FERNANDEZ #### [place] [address] PT Coag (PPP) [Time] 21.8 s High 9.0-14.4 [facility] Comment on above: Order Comment: order ed secondary to warfarin order Result Comment: Effe ctive 02/22/08, Protime results may be affected by some antibiotics (i.e. Ciprofloxacin, Azithromycin, Bactrim) which may potentiate the action of oral anticoagulants, with further increases in Protime/INR. Performed By: #### T EVELYN, ADIFF, CMP, PBNP, GFR, PRO, CBC, LANE FERNANDEZ #### [place] [address] .Auto Diffon 12-31-2024 Basophil, Absolute 0.0 10 3/mcL Normal 0.0-0.3 [facility] Comment on above: Performed By: #### T ROBHS, ADIFF, CMP, PBNP, GFR, PRO, CBC, LANE FERNANDEZ #### [place] [address] Basophils/100 WBC (Bld) 0.6 % Normal 0.0-2.5 [facility] Comment on above: Performed By: #### T ROBHS, ADIFF, CMP, PBNP, GFR, PRO, CBC, LANE FERNANDEZ #### [place] [address] Eosinophil, Absolute 0.2 10 3/mcL Normal 0.0-0.7 [facility] Comment on above: Performed By: #### T ROPHS, ADIFF, CMP, PBNP, GFR, PRO, CBC, ANEULANE #### [address] [address] Eosinophils/100 WBC (Bld) 2.8 % Normal 0.0-6.0 [facility] Comment on above: Performed By: #### T ROPHS, ADIFF, CMP, PBNP, GFR, PRO, CBC, ANEULANE #### [address] [address] Lymphocyte, Absolute 0.7 10 3/mcL Low 0.9-4.3 [facility] Comment on above: Performed By: #### T ROPHS, ADIFF, CMP, PBNP, GFR, PRO, CBC, ANEULANE #### [address] [address] Lymphocytes/100 WBC (Bld) 11.1 % Low 20.0-40.0 [facility] Comment on above: Performed By: #### T ROPHS, ADIFF, CMP, PBNP, GFR, PRO, CBC, LANE FERNANDEZ #### [address] [address] Monocyte, Absolute 0.7 10 3/mcL Normal 0.1-1.4 [facility] Comment on above: Performed By: #### T ROPHS, ADIFF, CMP, PBNP, GFR, PRO, CBC, LANE FERNANDEZ #### [address] [address] Monocytes/100 WBC (Bld) 9.7 % Normal 2.0-13.0 [facility] Comment on above: Performed By: #### T ROPHS, ADIFF, CMP, PBNP, GFR, PRO, CBC, LANE FERNANDEZ #### [address] [address] Neutrophils/100 WBC (Bld) 75.8 % High 50.0-75.0 [facility] Comment on above: Performed By: #### T ROPHS, ADIFF, CMP, PBNP, GFR, PRO, CBC, ANEULANE #### [place] [address] .GFRon 12-31-2024 Estimated Glomerular Filtration Rate 51 ml/min/1.73sqm Normal [facility] Comment on above: Result Comment: Stages of Chronic Kidney Disease (CKD) Stage Description eGFR(ml/min/1.73 sq.m.) CKD 1 Normal kidney function or >=90 normal kindney function with possible kidney damage (ex. Proteinuria) CKD 2 Kidney damage with mild loss 60-89 of kidney function CKD 3a Mild to moderate loss of kidney 45-59 function CKD 3b Moderate to severe loss of 30-44 of kindey function CKD 4 Severe loss of kidney function 15-29 CKD 5 Kidney failure <15 Note: (go live 2024) the eGFR calculation was updated to the 2020 CKD-EPI creatinine equation without a race factor to calculate the eGFR results. Performed By: #### T EVELYN, ADIFF, CMP, PBNP, GFR, PRO, CBCJIM MDW #### [place] [address] .MDWon 12-31-2024 Monocyte Distribution Width 19.60 Normal 0.00-20.00 [facility] Comment on above: Result Comment: For ED adult patients suspected of sepsis, MDW<=20.0 does not rule out sepsis or risk of sepsis Performed By: #### T EVELYN, ADIFF, CMP, PBNP, GFR, PRO, CBCJIM MDW #### [place] [address] .NEUABSon 12-31-2024 Neutrophil, Absolute 5.1 10 3/mcL Normal 2.3-8.1 [facility] Comment on above: Performed By: #### T ROPHS, ADIFF, CMP, PBNP, GFR, PRO, CBCJIM MDW #### [place] [address] CBCon 12-31-2024 Erythrocyte distribution width (RBC) [Ratio] 16.8 % High 11.5-15.5 [facility] Comment on above: Performed By: #### T ROBHS, ADIFF, CMP, PBNP, GFR, PRO, CBC, LANE FERNANDEZ #### [place] [address] Hematocrit (Bld) [Volume fraction] 34.5 % Low 40.0-52.0 [facility] Comment on above: Performed By: #### T ROPHS, ADIFF, CMP, PBNP, GFR, PRO, CBC, LANE FERNANDEZ #### [place] [id number] Hgb 11.9 G/dL Low 13.0-17.5 [facility] Comment on above: Performed By: #### T ROPHS, ADIFF, CMP, PBNP, GFR, PRO, CBC, LANE FERNANDEZ #### [place] [id number] MCH (RBC) [Entitic mass] 29.1 pg Normal 27.0-33.0 [facility] Comment on above: Performed By: #### T ROPNORBERTO, ADIFF, CMP, PBNP, GFR, PRO, CBC, LANE FERNANDEZ #### [place] [id number] MCHC 34.4 G/dL Normal 32.0-36.0 [facility] Comment on above: Performed By: #### T ROPNORBERTO, ADIFF, CMP, PBNP, GFR, PRO, CBC, LANE FERNANDEZ #### [place] [address] MCV (RBC) [Entitic vol] 84.7 fL Normal 81.0-100.0 [facility] Comment on above: Performed By: #### T ROPHS, ADIFF, CMP, PBNP, GFR, PRO, CBC, LANE FERNANDEZ #### [place] [address] Platelet 133 10 3/mcL Low 150-450 [facility] Comment on above: Performed By: #### T ROPHS, ADIFF, CMP, PBNP, GFR, PRO, CBC, L[facility] #### [place] [address] Platelet mean volume (Bld) [Entitic vol] 8.9 fL Normal 6.4-10.5 [facility] Comment on above: Performed By: #### T ROPHS, ADIFF, CMP, PBNP, GFR, PRO, CBC, L[facility] #### [place] [id number] RBC 4.08 10 6/mcL Low 4.50-6.00 [facility] Comment on above: Performed By: #### T ROPHS, ADIFF, CMP, PBNP, GFR, PRO, CBC, L[facility] #### [place] [id number] WBC 6.7 10 3/mcL Normal 4.5-10.8 [facility] Comment on above: Performed By: #### T ROPHS, ADIFF, CMP, PBNP, GFR, PRO, CBC, L[address] [facility] #### [place] [id number] CMPon 12-31-2024 Albumin Level 3.7 G/dL Normal 3.2-4.8 [facility] Comment on above: Performed By: #### T ROPHS, ADIFF, CMP, PBNP, GFR, PRO, CBC, L[facility] #### [place] [id number] Albumin/Globulin [Mass ratio] 1.0 {ratio} Normal 0.9-1.6 [facility] Comment on above: Performed By: #### T ROPHS, ADIFF, CMP, PBNP, GFR, PRO, CBC, L[address] [facility] #### [place] [id number] ALP [Catalytic activity/Vol] 80 U/L Normal 38-126 [facility] Comment on above: Performed By: #### T ROPHS, ADIFF, CMP, PBNP, GFR, PRO, CBC, L[facility] #### [place] [id number] ALT [Catalytic activity/Vol] 13 U/L Normal 12-55 [facility] Comment on above: Performed By: #### T ROPHS, ADIFF, CMP, PBNP, GFR, PRO, CBC, L[address] [facility] #### [facility] [address] [place], [place] [address] AST [Catalytic activity/Vol] 22 U/L Normal 8-34 [facility] Comment on above: Performed By: #### T EVELYN, ADIFF, CMP, PBNP, GFR, PRO, CBC, L[address] [facility] #### [address] [address] Bili Total 1.10 mg/dL Normal 0.20-1.20 [facility] Comment on above: Result Comment: Use of this assay is not recommended for patients undergoing treatment with eltrombopag due to the potential for falsely elevated results. Performed By: #### T EVELYN, ADIFF, CMP, PBNP, GFR, PRO, CBC, L[address] [facility] #### [address] [address] BUN/Creatinine Ratio 29.3 ratio High 10.0-22.0 [facility] Comment on above: Performed By: #### T EVELYN, ADIFF, CMP, PBNP, GFR, PRO, CBC, L[address] [facility] #### [address] [address] Calcium [Mass/Vol] 9.4 mg/dL Normal 8.7-10.4 [facility] Comment on above: Performed By: #### T EVELYN, ADIFF, CMP, PBNP, GFR, PRO, CBCJIM MDW #### [address] [address] Chloride [Moles/Vol] 102 mmol/L Normal 98-110 [facility] Comment on above: Performed By: #### T EVELYN, ADIFF, CMP, PBNP, GFR, PRO, CBC, LANE FERNANDEZ #### [address] [address] CO2 [Moles/Vol] 28 mmol/L Normal 22-32 [facility] Comment on above: Performed By: #### T EVELYN, ADIFF, CMP, PBNP, GFR, PRO, CBC, LANE FERNANDEZ #### [address] [address] Creatinine [Mass/Vol] 1.40 mg/dL Normal 0.60-1.40 [facility] Comment on above: Result Comment: Test ing performed on [employer] CH analyzer using enzymatic creatinine methodology. Performed By: #### T ROPHS, ADIFF, CMP, PBNP, GFR, PRO, CBC, LANE FERNANDEZ #### [address] [address] Electrolyte Balance 8.0 mEq/L Normal 4.0-15.0 [facility] Comment on above: Performed By: #### T ROPHS, ADIFF, CMP, PBNP, GFR, PRO, CBC, LANE FERNANDEZ #### [address] [address] Globulin 3.7 G/dL Normal 2.5-4.2 [facility] Comment on above: Performed By: #### T ROPHS, ADIFF, CMP, PBNP, GFR, PRO, CBC, LANE FERNANDEZ #### [place] [id number] Glucose [Mass/Vol] 141 mg/dL High 82-115 [facility] Comment on above: Performed By: #### T ROPHS, ADIFF, CMP, PBNP, GFR, PRO, CBC, LANE FERNANDEZ #### [address] [address] Potassium [Moles/Vol] 4.0 mmol/L Normal 3.5-5.0 [facility] Comment on above: Performed By: #### T ROPHS, ADIFF, CMP, PBNP, GFR, PRO, CBC, LANE FERNANDEZ #### [address] [address] Sodium [Moles/Vol] 138 mmol/L Normal 136-145 [facility] Comment on above: Performed By: #### T ROPHS, ADIFF, CMP, PBNP, GFR, PRO, CBC, LANE FERNANDEZ #### [place] [id number] Total Protein 7.4 G/dL Normal 5.7-8.2 [facility] Comment on above: Performed By: #### T ROPHS, ADIFF, CMP, PBNP, GFR, PRO, CBC, LANE FERNANDEZ #### [address] [address] Urea nitrogen [Mass/Vol] 41.0 mg/dL High 8.0-22.0 [facility] Comment on above: Performed By: #### T ROPHS, ADIFF, CMP, PBNP, GFR, PRO, CBC, ANEU, MDW #### [facility] [address] [place] [address] LABORATORYOrdered By: SYSTEM SYSTEM on 12-31-2024 Troponin I.cardiac DL <= 0.01 ng/mL [Mass/Vol] 65 ng/L High 0 - 54 ng/L ADM SS Comment on above: Interpretive Data: High Sensitive Troponin I Reference Ranges: Female: 0-34 ng/L Male: 0-54 ng/L Testing performed on [employer]ell[employer] IM analyzer using direct chemiluminescent technology. Troponin I.cardiac DL <= 0.01 ng/mL [Mass/Vol] 69 ng/L High 0 - 54 ng/L ADM SS Comment on above: Interpretive Data: High Sensitive Troponin I Reference Ranges: Female: 0-34 ng/L Male: 0-54 ng/L Testing performed on [employer]ell[employer]X IM analyzer using direct chemiluminescent technology. Albumin BCP dye [Mass/Vol] 3.7 G/dL Normal 3.2 - 4.8 G/dL ADM SS Albumin/Globulin [Mass ratio] 1.0 {ratio} Normal 0.9 - 1.6 ratio ADM SS ALP [Catalytic activity/Vol] 80 U/L Normal 38 - 126 U/L ADM SS ALT No additional P-5'-P [Catalytic activity/Vol] 13 U/L Normal 12 - 55 U/L ADM SS AST [Catalytic activity/Vol] 22 U/L Normal 8 - 34 U/L ADM SS Bilirubin [Mass/Vol] 1.10 mg/dL Normal 0.20 - 1.20 mg/dL ADM SS Comment on above: Interpretive Data: U se of this assay is not recommended for patients undergoing treatment with eltrombopag due to the potential for falsely elevated results. Globulin 3.7 G/dL Normal 2.5 - 4.2 G/dL ADM SS Monocyte distribution width Auto (Bld) [Entitic vol] 19.60 1 Normal 0.00 - 20.00 Workflow SS Comment on above: Result Comment: For ED adult patients suspected of sepsis, MDW<=20.0 does not rule out sepsis or risk of sepsis Natriuretic peptide.B prohormone N-Terminal IA [Mass/Vol] 1793 pg/mL Normal 0 - 1800 pg/mL ADM SS Protein [Mass/Vol] 7.4 G/dL Normal 5.7 - 8.2 G/dL ADM SS Troponin I.cardiac DL <= 0.01 ng/mL [Mass/Vol] 63 ng/L High 0 - 54 ng/L ADM SS Comment on above: Interpretive Data: High Sensitive Troponin I Reference Ranges: Female: 0-34 ng/L Male: 0-54 ng/L Testing performed on AOL analyzer using direct chemiluminescent technology. PBNPon 12-31-2024 Natriuretic peptide B (Bld) [Mass/Vol] 1793 pg/mL Normal 0-1800 [facility] Comment on above: Performed By: #### T EVELYN, DANIEL, CMP, PBNP, GFR, PRO, CBC, ANEU, MDW #### [facility] [address] [place] [id number] PROon 12-31-2024 INR Coag (PPP) [Relative time] 1.8 {INR} Normal [facility] MAIN Comment on above: Order Comment: order ed secondary to warfarin order Result Comment: [employer] (CHEST, 1992, 102:312S-25S) recommended therapeutic range for oral anticoagulant therapy is: LOW RISK: Prophylaxis of venous thrombosis INR: 2.0-3.0 Treatment of pulmonary embolism 2.0-3.0 Prevention of systemic embolism 2.0-3.0 HIGH RISK: Mechanical prosthetic valves 2.5-3.5 Performed By: #### T EVELYN, ADPHYLLIS, CMP, PBNP, GFR, PRO, CBC, ANEU, MDW #### [facility] [address] [place] [address] PT Coag (PPP) [Time] 21.1 s High 9.0-14.4 [facility] Comment on above: Order Comment: order ed secondary to warfarin order Result Comment: Effe ctive 02/22/08, Protime results may be affected by some antibiotics (i.e. Ciprofloxacin, Azithromycin, Bactrim) which may potentiate the action of oral anticoagulants, with further increases in Protime/INR. Performed By: #### T DANIEL RIVAS, CMP, PBNP, GFR, PRO, CBC, LANE FERNANDEZ #### [place] [address] INR Coag (PPP) [Relative time] 1.6 {INR} Normal [facility] MA[facility] Comment on above: Result Comment: [employer] (CHEST, 1991, 102:312S-25S) recommended therapeutic range for oral anticoagulant therapy is: LOW RISK: Prophylaxis of venous thrombosis INR: 2.0-3.0 Treatment of pulmonary embolism 2.0-3.0 Prevention of systemic embolism 2.0-3.0 HIGH RISK: Mechanical prosthetic valves 2.5-3.5 Performed By: #### T DANIEL RIVAS, CMP, PBNP, GFR, PRO, CBCJIM MDW #### [place] [address] PT Coag (PPP) [Time] 18.7 s High 9.0-14.4 [facility] Comment on above: Result Comment: Effe ctive 02/22/08, Protime results may be affected by some antibiotics (i.e. Ciprofloxacin, Azithromycin, Bactrim) which may potentiate the action of oral anticoagulants, with further increases in Protime/INR. Performed By: #### T DANIEL RIVAS, CMP, PBNP, GFR, PRO, CBCJIM MDW #### [address] 12-31-2024 High Sensitivity Troponin I 65 ng/L High [address] [place] [address] MAIN Comment on above: Result Comment: High Sensitive Troponin I Reference Ranges: Female: 0-34 ng/L Male: 0-54 ng/L Testing performed on [employer] IM analyzer using direct chemiluminescent technology. Performed By: #### T DANIEL RIVAS, CMP, PBNP, GFR, PRO, CBC, LANE FERNANDEZ #### [place] [address] High Sensitivity Troponin I 69 ng/L [address] MAIN Comment on above: Result Comment: High Sensitive Troponin I Reference Ranges: Female: 0-34 ng/L Male: 0-54 ng/L Testing performed on [employer] IM analyzer using direct chemiluminescent technology. Performed By: #### T EVELYN, DANIEL, CMP, PBNP, GFR, PRO, CBC, JIM, LANE #### [address] [address] High Sensitivity Troponin I 63 ng/L High 0-54 [facility] MA[facility] Comment on above: Result Comment: High Sensitive Troponin I Reference Ranges: Female: 0-34 ng/L Male: 0-54 ng/L Testing performed on [employer]X IM analyzer using direct chemiluminescent technology. Performed By: #### T EVELYN, ADIFF, CMP, PBNP, GFR, PRO, CBC, ANEU, MDW #### [address] [address] XR CHEST 1 VIEWon 12-31-2024 XR CHEST 1 VIEW ORIGINAL EXAMINATION: Exam Title:ONE XRAY VIEW OF THE CHEST Completed Time: 12/31/2024 11:31 am Procedure Description:CHEST ONE VIEW AP/PA COMPARISON: July 25, 2021 chest x-ray HISTORY: ORDERING SYSTEM PROVIDED HISTORY: Reason for Exam: palpitations FINDINGS: Zgyv-sm-ulmrdcen cardiomegaly. CABG. Pacing leads appear intact. Left-sided pacer body obscures portion left lung. Mild scattered reticular pulmonary markings. Mild hilar vascular prominence. Mild right base atelectasis. No gross pneumothorax or effusion. IMPRESSION: [] Cardiomegaly. Chronic reticular pulmonary markings slightly increased compared to July 25, 2021 exam. Cardiomegaly and mild hilar vascular prominence. Interpreted by: Genna Sanchez DO Preliminary Report By: Genna Sanchez DO Electronically signed By Genna Sanchez DO Dictated Date: 12/31/2024 11:34:06 AM Prelim Date: 12/31/2024 11:35:34 AM Sign Date: 12/31/2024 11:35:34 AM Ordering Provider: MEGHA HAHN [facility] 12-26-2024 ROSI Telephone (PHARMN) BESSY VALVERDE ([id number]) 1945 M Date Time Provider Department 12/26/24 PHARMACIST PHARMN During your visit today, we recorded the following information about you: Kelechi (XZERES)Karan 12/26/2024 9:10 AM Signed Patient called to let us know he will not be able to test tomorrow as he was advised by MD to hold warfarin yesterday and today for a procedure tomorrow. 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 Patient is asking when next INR should be done and can be reached at [phone] and stated we may leave a detailed message if no answer. Karan Lorenz (XZERES) Valerio Acharya RPh 12/26/2024 3:35 PM Signed Spoke to patient - advised to have INR checked within two weeks of tomorrow's procedure. Jonathan Hawkins RPh 01/10/2025 10:01 AM Signed Patient was due to test INR today. Will continue to monitor for results. Follow up in one week if no results received. Patient's INR Goal range is - 2.0-3.0 PT INR (no units) Date Value 11/19/2021 2.7 biotel 11/05/2021 2.5 10/22/2021 2.8 biotel INR Home CoaguChek (no units) Date Value 12/13/2024 3.2 11/29/2024 2.8 11/15/2024 2.9 Patient is in titration phase - No Patient has dosing provided until next INR - Yes Patient is on an injectable anticoagulant - No Jasmin Norton Monika, HUC 01/10/2025 4:13 PM Signed Pt. called stated pt. INR was 2.3 today. Pt. is having a procedure on 01/12/25. Pt. worried his procedure will not happen if his INR not under 2.0. Pt. requestig a return call at [phone] Allergies As of Date: 12/26/2024 (No Known Allergies) Date Reviewed: 11/01/2024 Reviewed by: Daphney Obando LPN - Fully Assessed Reason for Visit: Anticoagulation Telephone Fu [148] Prescriptions as of 01/10/2025 - metoprolol succinate ER (TOPROL XL) 25 mg 24 hr tablet Take 25 mg by mouth once daily. - acetaminophen (TYLENOL) 325 mg tablet Take 650 mg by mouth every 4 hours as needed. - bumetanide (BUMEX) 1 mg tablet Take 1 tablet by mouth once daily as needed (weight gain 3 pounds). Or as directed for weight gain, fluid retention. - ujbjdxycy-kjwiqg-amyyal ne-scop () 16.2-0.1037 -0.0194 mg per tablet Take 1 tablet by mouth every 6 hours as needed. - albuterol HFA (VENTOLIN HFA) 90 mcg/actuation inhaler USE 2 INHALATIONS 4 TIMES A DAY IF NEEDED - nitroglycerin sublingual (NITROSTAT) 0.4 mg SL tablet Dissolve 1 tablet under the tongue as needed. DISSOLVE ON TONGUE FOR CHEST PAIN. IF NO PAIN RELIEF, CALL 911 - atorvastatin (LIPITOR) 40 mg tablet Take 1 tablet by mouth once daily. - montelukast (SINGULAIR) 10 mg tablet Take 1 tablet by mouth daily at bedtime. For asthma and allergies. - fluticasone-salmeterol (ADVAIR DISKUS) 100-50 mcg/dose inhaler Inhale 1 Puff as instructed two times a day. Rinse mouth out after use with water. - pantoprazole DR (PROTONIX) 20 mg tablet Take 1 tablet by mouth daily before breakfast. Take on empty stomach, 1/2 hr before meal. - warfarin (COUMADIN) 5 mg tablet 5 mg every Mon AND Fr ; 2.5 mg all other days - ENTRESTO 24-26 mg tablet Take 1 tablet by mouth twice daily. - LOW-DOSE ASPIRIN ORAL Take 1 tablet by mouth once daily. - blood sugar diagnostic (BLOOD GLUCOSE TEST) test strip Test blood sugar(s) one times daily. 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]06/22/2007 01/27/2019 IRRITABLE COLON [K58.9] 06/22/2007 Asthma, moderate persistent, well-controlled [J*12/09/2008 Screen for colon cancer [Z12.11] 07/11/2010 12/03/2012 Colon polyp [K63.5] 07/26/2010 07/24/2022 Diverticulosis [K57.90] 07/26/2010 01/27/2019 Occult GI bleeding [R19.5] 08/13/2012 12/03/2012 Positive fecal occult blood test [R19.5] 08/23/2012 12/03/2012 Byers's esophagus [K22.70] 09/10/2012 08/10/2024 Interstitial lung disease (HCC) [J84.9] 03/25/2013 Anticoagulated on Coumadin ( home INR testing) *05/02/2013 11/30/2019 Status post mitral valve replacement [Z95.2] 06/17/2013 Status post implantation of automatic cardiover*06/17/2013 Ventricular tachycardia [I47.20] 06/17/2013 Permanent atrial fibrillation (HCC) [I48.21] 09/28/2019 Impaired fasting glucose [R73.01] 02/21/2015 09/09/2017 Controlled type 2 diabetes mellitus with stage *07/28/2007 Aortic valve stenosis [I35.0] 01/06/2018 Chronic systolic heart failure (HCC) [I50.22] 01/06/2018 Other insomnia [G47.09] 12/02/2018 07/29/2023 penitentiary (current) use of anticoag (more content not included)... Normal [facility] Anion gap in Serum or Plasma Ordered By: Mackenzie Iverson on 12-16-2024 Anion gap [Moles/Vol] 11 mmol/L 12-22 [facility] BUN/creatinine ratioOrdered By: Mackenzie Iverson on 12-16-2024 Urea nitrogen/Creatinine [Mass ratio] 29.9 mg/mg High 05-29 [facility] Carbon dioxide, total [Moles /volume] in Central venous bloodOrdered By: Mackenzie Iverson on 12-16-2024 CO2 [Moles/Vol] 23.5 mmol/L 21.0-32.0 [facility] Chloride assayOrdered By: Derrek Iverson on 12-16-2024 Chloride [Moles/Vol] 103 mmol/L 98-108 [facility] Glomerular filtration rate ( GFR) estimation/1.73 sq m using serum, plasma, or whole bOrdered By: Mackenzie Iverson on 12-16-2024 GFR/1.73 sq M.predicted among non-blacks MDRD (S/P/Bld) [Vol rate/Area] 47 mL/min/{1.73_m2} Low >60 [facility] Comment on above: mL/min/1.73m2 CKD-EP I Creatinine Equation (2020) PTHINon 12-16-2024 PTH 169 pg/mL High 11-61 [facility] Comment on above: Performed By: #### L 500.3600, L506.1001, L509.1000 #### [facility] [address] [place], [address] Potassium measurement (mass/ volume)Ordered By: Mackenzie Iverson on 12-16-2024 Potassium (Unsp spec) [Mass/Vol] 4.7 mmol/L 3.3-5.1 [facility] Renal Profileon 12-16-2024 Albumin [Mass/Vol] 3.8 g/dL Normal 3.4-4.8 [facility] Comment on above: Performed By: #### L 500.3600, L506.1001, L509.1000 #### [facility] [address] [place], [address] BUN/CRE 29.9 RATIO High 10-20 [facility] Comment on above: Performed By: #### L 500.3600, L506.1001, L509.1000 #### [facility] [address] [place], [address] Calcium [Mass/Vol] 9.2 mg/dL Normal 7.6-11.0 [facility] Comment on above: Performed By: #### L 500.3600, L506.1001, L509.1000 #### [facility] [address] [place], [address] Chloride [Moles/Vol] 103 mmol/L Normal 98-108 [facility] Comment on above: Performed By: #### L 500.3600, L506.1001, L509.1000 #### [facility] [address] [place], [address] CO2 [Moles/Vol] 23.5 mmol/L Normal 21.0-32.0 [facility] Comment on above: Performed By: #### L 500.3600, L506.1001, L509.1000 #### [facility] [address] [place], [address] Creatinine [Mass/Vol] 1.49 mg/dL High 0.70-1.20 [facility] Comment on above: Performed By: #### L 500.3600, L506.1001, L509.1000 #### [facility] [address] [place], [address] GAP 11 Normal 5-15 [facility] Comment on above: Performed By: #### L 500.3600, L506.1001, L509.1000 #### [facility] [address] [place], [address] GFR/1.73 sq M.predicted among non-blacks MDRD (S/P/Bld) [Vol rate/Area] 47 mL/min/{1.73_m2} Low >60 [facility] Comment on above: Result Comment: mL/m in/1.73m2 CKD-EPI Creatinine Equation (2020) Performed By: #### L 500.3600, L506.1001, L509.1000 #### [facility] [address] [place], [address] Glucose [Mass/Vol] 227 mg/dL High 70-99 [facility] Comment on above: Performed By: #### L 500.3600, L506.1001, L509.1000 #### [facility] [address] [place], [address] Phosphate [Mass/Vol] 2.9 mg/dL Normal 2.7-4.5 [facility] Comment on above: Performed By: #### L 500.3600, L506.1001, L509.1000 #### [facility] [address] [place], [address] Potassium [Moles/Vol] 4.7 mmol/L Normal 3.3-5.1 [facility] Comment on above: Performed By: #### L 500.3600, L506.1001, L509.1000 #### [facility] [address] [place], [address] Sodium [Moles/Vol] 137 mmol/L Normal 133-145 [facility] Comment on above: Performed By: #### L 500.3600, L506.1001, L509.1000 #### [facility] [address] [place], [address] Urea nitrogen [Mass/Vol] 45 mg/dL High 4-19 [facility] Comment on above: Performed By: #### L 500.3600, L506.1001, L509.1000 #### [facility] [address] [place], [address] Serum creatinine measurement (mass/volume)Ordered By: Mackenzie Iverson on 12-16-2024 Creatinine [Mass/Vol] 1.49 mg/dL High 0.70-1.20 [facility] Serum glucose measurement (m ass/volume)Ordered By: Mackenzie Iverson on 12-16-2024 Glucose [Mass/Vol] 227 mg/dL High 70-99 [facility] Serum or plasma albumin karen urement (mass/volume)Ordered By: Mackenzie Iverson on 12-16-2024 Albumin [Mass/Vol] 3.8 g/dL 3.4-4.8 [facility] Serum or plasma calcium karen urement (mass/volume)Ordered By: Mackenzie Iverson on 12-16-2024 Calcium [Mass/Vol] 9.2 mg/dL 7.6-11.0 [facility] Serum or plasma urea nitroge n measurement (mass/volume)Ordered By: Mackenzie Iverson on 12-16-2024 Urea nitrogen [Mass/Vol] 45 mg/dL High 4-19 [facility] Sodium levelOrdered By: Skye Iverson on 12-16-2024 Sodium [Moles/Vol] 137 mmol/L 133-145 [facility] Vitamin D,25 Hydroxyon 12-16 Vitamin D 25-OH 18.7 ng/mL Low 30-100 [facility] Comment on above: Result Comment: Peggy min D Status Deficiency: <20 ng/mL (50nmol/L) Insufficiency: 20-30 ng/mL (50-75 nmol/L) Sufficiency: 30-100 ng/mL (75-250 nmol/L) Toxicity: >100 ng/mL (>250 nmol/L) Performed By: #### L 500.3600, L506.1001, L509.1000 #### [facility] [address] [place], [place], [address] [facility] VALVERDE ([id number]) 1945 M Date Time Provider Department 12/13/24 JONATHAN HAWKINS During your visit today, we recorded the following information about you: Jonathan Hawkins [facility] 12/13/2024 7:54 AM Signed [facility] Anticoagulation Episode Summary Anticoagulation Care Providers Provider Role Specialty Phone number George Mata MD [facility] Internal Medicine [phone] Bessy Valverde is a 78 year old year old male patient being evaluated today for a Telemanagement visit. Patient is currently on the following anticoagulant(s) Warfarin. Labs Lab Results Component Value Date INR 3.2 (A) 12/13/2024 INR 2.8 11/29/2024 INR 2.9 11/15/2024 Lab Results Component Value Date HB 11.3 (L) 09/06/2024 HB 12.2 (L) 01/25/2024 HB 12.0 (L) 01/23/2023 Lab Results Component Value Date HCT 33.9 (L) 09/06/2024 HCT 37.8 (L) 01/25/2024 HCT 37.4 (L) 01/23/2023 Lab Results Component Value Date PLT 141 (L) 09/06/2024 PLT 125 (L) 01/25/2024 PLT 128 (L) 01/23/2023 Lab Results Component Value Date CREAT 1.66 (H) 09/06/2024 CREAT 1.30 (H) 01/25/2024 CREAT 1.35 (H) 07/29/2023 No components found for: TBILI3 Lab Results Component Value Date ALT 15 09/06/2024 ALT 20 01/25/2024 ALT 19 07/29/2023 Lab Results Component Value Date AST 21 09/06/2024 AST 24 01/25/2024 AST 27 07/29/2023 Estimated Creatinine Clearance: 34.5 mL/min (A) (based on SCr of 1.66 mg/dL (H)). ALLERGIES No Known Allergies Indication for Warfarin: Anticoagulation Episode Summary Current INR goal: 2.0-3.0 Assessment: INR result of 3.2 is SUPRAtherapeutic due to: Decreased vitamin k intake Plan: Current Warfarin Dosing As of 12/13/2024 Full warfarin instructions: 12/13: 1.25 mg; Otherwise 5 mg every Mon, Fri; 2.5 mg all other days Called and spoke to patient/caregiver Advised patient to decrease dose for 1 day only then resume weekly regimen Next home INR check scheduled on 12/27/2024 Patient's caregiver verbalizes understanding of the plan. Patient advised to call the PAC with any medication changes, bleeding/bruising concerns, recent changes in vitamin k consumption, if any procedures are coming up, if they have been ill or in the hospital, and if they have missed any doses of warfarin. Jonathan Hawkins [facility] Clinical Pharmacist, Pharmacy Anticoagulation Clinic Pharmacy Anticoagulation Clinic Pager: [phone]. Allergies As of Date: 12/13/2024 (No Known Allergies) Date Reviewed: 11/01/2024 Reviewed by: Daphney Obando LPN - Fully Assessed Reason for Visit: Anticoagulation Telephone Fu [148] Cmt: Home INR result Prescriptions as of 12/13/2024 - dwionnoee-fzlwic-iorwzt ne-scop () 16.2-0.1037 -0.0194 mg per tablet Take 1 tablet by mouth every 6 hours as needed. - albuterol HFA (VENTOLIN HFA) 90 mcg/actuation inhaler USE 2 INHALATIONS 4 TIMES A DAY IF NEEDED - nitroglycerin sublingual (NITROSTAT) 0.4 mg SL tablet Dissolve 1 tablet under the tongue as needed. DISSOLVE ON TONGUE FOR CHEST PAIN. IF NO PAIN RELIEF, CALL 911 - atorvastatin (LIPITOR) 40 mg tablet Take 1 tablet by mouth once daily. - montelukast (SINGULAIR) 10 mg tablet Take 1 tablet by mouth daily at bedtime. For asthma and allergies. - fluticasone-salmeterol (ADVAIR DISKUS) 100-50 mcg/dose inhaler Inhale 1 Puff as instructed two times a day. Rinse mouth out after use with water. - pantoprazole DR (PROTONIX) 20 mg tablet Take 1 tablet by mouth daily before breakfast. Take on empty stomach, 1/2 hr before meal. - warfarin (COUMADIN) 5 mg tablet 5 mg every Thu AND Fr ; 2.5 mg all other days - bumetanide (BUMEX) 1 mg tablet Take 1 tablet by mouth once daily. Or as directed for weight gain, fluid retention. - ENTRESTO 24-26 mg tablet Take 1 tablet by mouth twice daily. - sotalol (BETAPACE) 80 mg tablet Take 2 tablets by mouth twice daily. - spironolactone (ALDACTONE) 25 mg tablet Take 25 mg by mouth once daily. - LOW-DOSE ASPIRIN ORAL Take 1 tablet by mouth once daily. - blood sugar diagnostic (BLOOD GLUCOSE TEST) test strip Test blood sugar(s) one times daily. 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 Normal [facility] CNPNon 11-29-2024 CNPN Telephone (PHAMTE) BESSY VALVERDE ([id number]) 1945 M Date Time Provider Department 11/29/24 JONATHAN HAWKINS During your visit today, we recorded the following information about you: Jonathan Hawkins [facility] 11/29/2024 8:59 AM Signed [facility] Anticoagulation Episode Summary Anticoagulation Care Providers Provider Role Specialty Phone number George Mata MD [facility] Internal Medicine [phone] Bessy Valverde is a 78 year old year old male patient being evaluated today for a Telemanagement visit. Patient is currently on the following anticoagulant(s) Warfarin. Labs PT INR (no units) Date Value 11/19/2021 2.7 biotel 11/05/2021 2.5 10/22/2021 2.8 biotel INR Home CoaguChek (no units) Date Value 11/29/2024 2.8 11/15/2024 2.9 11/01/2024 3.2 Hemoglobin (g/dL) Date Value 09/06/2024 11.3 09/23/2021 13.8 Hematocrit (%) Date Value 09/06/2024 33.9 09/23/2021 44.4 Platelet Count (k/uL) Date Value 09/06/2024 141 09/23/2021 160 Creatinine (mg/dL) Date Value 09/06/2024 1.66 01/25/2024 1.30 07/29/2023 1.35 09/23/2021 1.18 09/02/2021 1.31 08/05/2021 1.68 Bilirubin, Total (mg/dL) Date Value 09/06/2024 1.3 08/22/2021 1.2 ALT (U/L) Date Value 09/06/2024 15 08/22/2021 36 AST (U/L) Date Value 09/06/2024 21 08/22/2021 45 Estimated Creatinine Clearance: 34.5 mL/min (A) (based on SCr of 1.66 mg/dL (H)). ALLERGIES No Known Allergies Indication for Warfarin: Anticoagulation Episode Summary Current INR goal: 2.0-3.0 Assessment: INR result of 2.8 is therapeutic Plan: Current Warfarin Dosing As of 11/29/2024 Full warfarin instructions: 5 mg every Mon, Fri; 2.5 mg all other days Called and spoke to patient/caregiver Advised patient to continue current weekly dose as noted above Next home INR check scheduled on 12/13/2024 Patient verbalizes understanding of the plan. Patient advised to call the PAC with any medication changes, bleeding/bruising concerns, recent changes in vitamin k consumption, if any procedures are coming up, if they have been ill or in the hospital, and if they have missed any doses of warfarin. Jonathan Hawkins [facility] Clinical Pharmacist, Pharmacy Anticoagulation Clinic Pharmacy Anticoagulation Clinic Pager: [phone]. Allergies As of Date: 11/29/2024 (No Known Allergies) Date Reviewed: 11/01/2024 Reviewed by: Daphney Obando LPN - Fully Assessed Reason for Visit: Anticoagulation Telephone Fu [[id number]] Cmt: Home INR result Prescriptions as of 11/29/2024 - omqbegqns-yfpkwd-bfltdu ne-scop () 16.2-0.1037 -0.0194 mg per tablet Take 1 tablet by mouth every 6 hours as needed. - albuterol HFA (VENTOLIN HFA) 90 mcg/actuation inhaler USE 2 INHALATIONS 4 TIMES A DAY IF NEEDED - nitroglycerin sublingual (NITROSTAT) 0.4 mg SL tablet Dissolve 1 tablet under the tongue as needed. DISSOLVE ON TONGUE FOR CHEST PAIN. IF NO PAIN RELIEF, CALL 911 - atorvastatin (LIPITOR) 40 mg tablet Take 1 tablet by mouth once daily. - montelukast (SINGULAIR) 10 mg tablet Take 1 tablet by mouth daily at bedtime. For asthma and allergies. - fluticasone-salmeterol (ADVAIR DISKUS) 100-50 mcg/dose inhaler Inhale 1 Puff as instructed two times a day. Rinse mouth out after use with water. - pantoprazole DR (PROTONIX) 20 mg tablet Take 1 tablet by mouth daily before breakfast. Take on empty stomach, 1/2 hr before meal. - warfarin (COUMADIN) 5 mg tablet 5 mg every Thu AND Fr ; 2.5 mg all other days - bumetanide (BUMEX) 1 mg tablet Take 1 tablet by mouth once daily. Or as directed for weight gain, fluid retention. - ENTRESTO 24-26 mg tablet Take 1 tablet by mouth twice daily. - sotalol (BETAPACE) 80 mg tablet Take 2 tablets by mouth twice daily. - spironolactone (ALDACTONE) 25 mg tablet Take 25 mg by mouth once daily. - LOW-DOSE ASPIRIN ORAL Take 1 tablet by mouth once daily. - blood sugar diagnostic (BLOOD GLUCOSE TEST) test strip Test blood sugar(s) one times daily. 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 Normal [facility] CNPNon 11-17-2024 CNPN Telephone (INTMWS) BESSY VALVERDE ([id number]) 1945 M Date Time Provider Department 11/17/24 GEORGE MATA INTMWS During your visit today, we recorded the following information about you: Reyna Thompson 11/17/2024 3:28 PM Signed Patient has been identified by name and date of : Yes Last office visit in this department: 11/01/2024 RX INSTRUCTIONS: Patient aware RX escripted to mail away pharmacy. No need to notify patient. Patient phones requesting refills as follows: Requested Prescriptions Pending Prescriptions Disp Refills lejjrkkua-cqadrh-ocugvh ne-scop () 16.2-0.1037 -0.0194 mg per tablet 240 tablet 0 Sig: Take 1 tablet by mouth every 6 hours as needed. Please review and advise. Daphney An LPN 11/17/2024 3:47 PM Signed Appt 02/01/2025. Daphney Obando LPN Allergies As of Date: 11/17/2024 (No Known Allergies) Date Reviewed: 11/01/2024 Reviewed by: Daphney Obando LPN - Fully Assessed Reason for Visit: Medication Request [138] Visit Diagnosis:Irritable bowel syndrome, unspecified type [K58.9] Order(s):phenobarb-hyos hf-vidwhfhv-hfyo () 16.2-0.1037 -0.0194 mg per tabletTake 1 tablet by mouth every 6 hours as needed.Disp: 240 tabletRfl: 0 Prescriptions as of 11/17/2024 - qbwgzgrji-qprfkf-vziwcz ne-scop () 16.2-0.1037 -0.0194 mg per tablet Take 1 tablet by mouth every 6 hours as needed. - albuterol HFA (VENTOLIN HFA) 90 mcg/actuation inhaler USE 2 INHALATIONS 4 TIMES A DAY IF NEEDED - nitroglycerin sublingual (NITROSTAT) 0.4 mg SL tablet Dissolve 1 tablet under the tongue as needed. DISSOLVE ON TONGUE FOR CHEST PAIN. IF NO PAIN RELIEF, CALL 911 - atorvastatin (LIPITOR) 40 mg tablet Take 1 tablet by mouth once daily. - montelukast (SINGULAIR) 10 mg tablet Take 1 tablet by mouth daily at bedtime. For asthma and allergies. - fluticasone-salmeterol (ADVAIR DISKUS) 100-50 mcg/dose inhaler Inhale 1 Puff as instructed two times a day. Rinse mouth out after use with water. - pantoprazole DR (PROTONIX) 20 mg tablet Take 1 tablet by mouth daily before breakfast. Take on empty stomach, 1/2 hr before meal. - warfarin (COUMADIN) 5 mg tablet 5 mg every Thu AND Fr ; 2.5 mg all other days - bumetanide (BUMEX) 1 mg tablet Take 1 tablet by mouth once daily. Or as directed for weight gain, fluid retention. - ENTRESTO 24-26 mg tablet Take 1 tablet by mouth twice daily. - sotalol (BETAPACE) 80 mg tablet Take 2 tablets by mouth twice daily. - spironolactone (ALDACTONE) 25 mg tablet Take 25 mg by mouth once daily. - LOW-DOSE ASPIRIN ORAL Take 1 tablet by mouth once daily. - blood sugar diagnostic (BLOOD GLUCOSE TEST) test strip Test blood sugar(s) one times daily. Dx: Type 2 DM - Controlled E11.9 Insulin: No - Blood-Glucose Meter monitoring kit Glucose Meter of Choice - Kit - Dx: Type 2 DM - Controlled E11.9 Problem List As Of Date 11/17/2024 Noted Resolved Coronary atherosclerosis [I25.10] 05/19/2005 PURE HYPERCHOLESTEROLEM [E78.00] 05/19/2005 Gastroesophageal reflux disease without esophag*05/19/2005 Essential hypertension [I10] 05/19/2005 Postsurgical aortocoronary bypass status [Z95.1]06/22/2007 01/27/2019 IRRITABLE COLON [K58.9] 06/22/2007 Asthma, moderate persistent, well-controlled [J*12/09/2008 Screen for colon cancer [Z12.11] 07/11/2010 12/03/2012 Colon polyp [K63.5] 07/26/2010 07/24/2022 Diverticulosis [K57.90] 07/26/2010 01/27/2019 Occult GI bleeding [R19.5] 08/13/2012 12/03/2012 Positive fecal occult blood test [R19.5] 08/23/2012 12/03/2012 Byers's esophagus [K22.70] 09/10/2012 08/10/2024 Interstitial lung disease (HCC) [J84.9] 03/25/2013 Anticoagulated on Coumadin ( home INR testing) *05/02/2013 11/30/2019 Status post mitral valve replacement [Z95.2] 06/17/2013 Status post implantation of automatic cardiover*06/17/2013 Ventricular tachycardia [I47.20] 06/17/2013 Permanent atrial fibrillation (HCC) [I48.21] 09/28/2019 Impaired fasting glucose [R73.01] 02/21/2015 09/09/2017 Controlled type 2 diabetes mellitus with stage *07/28/2007 Aortic valve stenosis [I35.0] 01/06/2018 Chronic systolic heart failure (HCC) [I50.22] 01/06/2018 Other insomnia [G47.09] 12/02/2018 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 [Z79.*01/26/2019 CKD (chronic kidney disease) stage 3, GFR 30-59*01/29/2019 11/30/2019 Gout of foot [M10.9] 11/30/2019 Anemia due to stage 3 chronic kidney disease (H*01/17/2020 Thrombocytopenia (HCC) [D69.6] 01/17/2020 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 Normal [facility] CNPNon 11-15-2024 CNPN Telephone (PHARAV) BESSY VALVERDE ([id number]) 1945 M Date Time Provider Department 11/15/24 ELLIOTT GLEASON During your visit today, we recorded the following information about you: Elliott Gleason ana 11/15/2024 8:59 AM Signed [facility] Anticoagulation Episode Summary Anticoagulation Care Providers Provider Role Specialty Phone number George Mata MD [facility] Internal Medicine [phone] Bessy Hernandez Nicolle is a 78 year old year old male patient being evaluated today for a Telemanagement visit. Patient is currently on the following anticoagulant(s) Warfarin. Labs PT INR (no units) Date Value 11/19/2021 2.7 biotel 11/05/2021 2.5 10/22/2021 2.8 biotel INR Home CoaguChek (no units) Date Value 11/15/2024 2.9 11/01/2024 3.2 10/18/2024 3.5 Hemoglobin (g/dL) Date Value 09/06/2024 11.3 09/23/2021 13.8 Hematocrit (%) Date Value 09/06/2024 33.9 09/23/2021 44.4 Platelet Count (k/uL) Date Value 09/06/2024 141 09/23/2021 160 Creatinine (mg/dL) Date Value 09/06/2024 1.66 01/25/2024 1.30 07/29/2023 1.35 09/23/2021 1.18 09/02/2021 1.31 08/05/2021 1.68 Bilirubin, Total (mg/dL) Date Value 09/06/2024 1.3 08/22/2021 1.2 ALT (U/L) Date Value 09/06/2024 15 08/22/2021 36 AST (U/L) Date Value 09/06/2024 21 08/22/2021 45 Estimated Creatinine Clearance: 34.5 mL/min (A) (based on SCr of 1.66 mg/dL (H)). 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 Plan: Current Warfarin Dosing As of 11/15/2024 Full warfarin instructions: 5 mg every Mon, Fri; 2.5 mg all other days Called and spoke to patient/caregiver Advised patient to continue current weekly dose as noted above Next home INR check scheduled on 11/29/2024 Patient verbalizes understanding of the plan. Patient denies need for refills. Patient advised to call the PAC with any medication changes, bleeding/bruising concerns, recent changes in vitamin k consumption, if any procedures are coming up, if they have been ill or in the hospital, and if they have missed any doses of warfarin. Elliott Gleason [facility] Clinical Pharmacist, Pharmacy Anticoagulation Clinic Pharmacy Anticoagulation Clinic Pager: [phone]. 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 DISSOLVE ON TONGUE FOR CHEST PAIN. IF NO PAIN RELIEF, CALL 911 - atorvastatin (LIPITOR) 40 mg tablet Take 1 tablet by mouth once daily. - montelukast (SINGULAIR) 10 mg tablet Take 1 tablet by mouth daily at bedtime. For asthma and allergies. - fluticasone-salmeterol (ADVAIR DISKUS) 100-50 mcg/dose inhaler Inhale 1 Puff as instructed two times a day. Rinse mouth out after use with water. - pantoprazole DR (PROTONIX) 20 mg tablet Take 1 tablet by mouth daily before breakfast. Take on empty stomach, 1/2 hr before meal. - anlaqkbpb-khfdjf-zdswaf ne-scop () 16.2-0.1037 -0.0194 mg per tablet Take 1 tablet by mouth every 6 hours as needed. - warfarin (COUMADIN) 5 mg tablet 5 mg every Thu AND Fr ; 2.5 mg all other days - bumetanide (BUMEX) 1 mg tablet Take 1 tablet by mouth once daily. Or as directed for weight gain, fluid retention. - ENTRESTO 24-26 mg tablet Take 1 tablet by mouth twice daily. - sotalol (BETAPACE) 80 mg tablet Take 2 tablets by mouth twice daily. - spironolactone (ALDACTONE) 25 mg tablet Take 25 mg by mouth once daily. - LOW-DOSE ASPIRIN ORAL Take 1 tablet by mouth once daily. - blood sugar diagnostic (BLOOD GLUCOSE TEST) test strip Test blood sugar(s) one times daily. Dx: Type 2 DM - Controlled E11.9 Insulin: No - Blood-Glucose Meter monitoring kit Glucose Meter of Choice - Kit - Dx: Type 2 DM - Controlled E11.9 Problem List As Of Date 11/15/2024 Noted Resolved Coronary atherosclerosis [I25.10] 05/19/2005 PURE HYPERCHOLESTEROLEM [E78.00] 05/19/2005 Gastroesophageal reflux disease without esophag*05/19/2005 Essential hypertension [I10] 05/19/2005 Postsurgical aortocoronary bypass status [Z95.1]06/22/2007 01/27/2019 IRRITABLE COLON [K58.9] 06/22/2007 Asthma, mod (more content not included)... Normal [facility] CNOVon 11-01-2024 CNOV Office Visit (INTMWS ) BESSY VALVERDE ([id number]) 1945 M Date Time Provider Department 11/01/24 9:00 AM GEORGE MATA INTMWS During your visit today, we recorded the following information about you: Temperature Pulse Respiration Blood pressure 98 degrees 68/minute 20/minute 106/60 Weight 79.2 kg George Mata MD 11/01/2024 9:34 AM Signed This note was created using [employer]. Subjective Bessy Valverde is a 78 year old male. He recovered from Covid after several weeks. He tolerated Paxlovid. He saw Dr. Mackenzie Iverson for worsening kidney disease, and his renal function was being monitored. He continued with chronic back pain with radiation to his leg. This was worse with prolonged sitting. Pain management injections did not help and surgery was not recommended. Review of Systems Constitutional: Positive for fatigue. Negative for chills and fever. HENT: Negative for congestion and sore throat. Respiratory: Negative for cough, shortness of breath and wheezing. Cardiovascular: Negative for chest pain, palpitations and leg swelling. Musculoskeletal: Positive for back pain. ACTIVE PROBLEM LIST Coronary Atherosclerosis Pure Hypercholesterolemia Gastroesophageal Reflux Disease Without Esophagitis Essential Hypertension Irritable Bowel Syndrome Asthma, Moderate Persistent, Well-Controlled Interstitial Lung Disease (Hcc) Status Post Mitral Valve Replacement Status Post Implantation of Automatic Cardioverter/Defibrilla tor (Aicd) Ventricular Tachycardia (Hcc) Permanent Atrial Fibrillation (Hcc) Controlled Type 2 Diabetes Mellitus With Stage 3 Chronic Kidney Disease, Without Long-Term Current Use of Insulin (Hcc) Aortic Valve Stenosis Chronic Systolic Heart Failure (Hcc) 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 Vaping Use Vaping status: Never Used Substance Use Topics Alcohol use: No Drug use: No Current Outpatient Medications Medication Sig atorvastatin (LIPITOR) 40 mg tablet Take 1 tablet by mouth once daily. montelukast (SINGULAIR) 10 mg tablet Take 1 tablet by mouth daily at bedtime. For asthma and allergies. fluticasone-salmeterol (ADVAIR DISKUS) 100-50 mcg/dose inhaler Inhale 1 Puff as instructed two times a day. Rinse mouth out after use with water. pantoprazole DR (PROTONIX) 20 mg tablet Take 1 tablet by mouth daily before breakfast. Take on empty stomach, 1/2 hr before meal. sdjalfkiv-uwiifl-zxcjjm ne-scop () 16.2-0.1037 -0.0194 mg per tablet Take 1 tablet by mouth every 6 hours as needed. warfarin (COUMADIN) 5 mg tablet 5 mg every Thu AND Fr ; 2.5 mg all other days bumetanide (BUMEX) 1 mg tablet Take 1 tablet by mouth once daily. Or as directed for weight gain, fluid retention. albuterol HFA (VENTOLIN HFA) 90 mcg/actuation inhaler USE 2 INHALATIONS 4 TIMES A DAY IF NEEDED nitroglycerin sublingual (NITROSTAT) 0.4 mg SL tablet Dissolve 1 tablet under the tongue as needed. DISSOLVE ON TONGUE FOR CHEST PAIN. IF NO PAIN RELIEF, CALL 911 ENTRESTO 24-26 mg tablet Take 1 tablet by mouth twice daily. sotalol (BETAPACE) 80 mg tablet Take 2 tablets by mouth twice daily. spironolactone (ALDACTONE) 25 mg tablet Take 25 mg by mouth once daily. LOW-DOSE ASPIRIN ORAL Take 1 tablet by mouth once daily. blood sugar diagnostic (BLOOD GLUCOSE TEST) test strip Test blood sugar(s) one times daily. Dx: Type 2 DM - Controlled E11.9 Insulin: No Blood-Glucose Meter monitoring kit Glucose Meter of Choice - Kit - Dx: Type 2 DM - Controlled E11.9 No current facility-administered medications for this visit. Objective BP 106/60 (BP Site: Left Arm, BP Position: Sitting, BP Cuff Size: Large Adult) Pulse 68 Temp 36.7 ?C (98 ?F) (Temporal) Resp 20 Wt 79.2 kg (174 lb 9.7 oz) BMI 26.86 kg/m? Physical Exam Constitutional: General: He is not in acute distress. HENT: Nose: No congestion or rhinorrhea. Cardiovascular: Rate and Rhythm: Normal rate. Rhythm irregular. Heart sounds: S1 normal and S2 normal. Murmur heard. Systolic murmur is present with a grade of 1/6. Pulmonary: Breath sounds: Examination of the right-lower field reveals rales. Examination of the left-lower field reveals rales. Rales present. No decreased breath sounds or wheezing. Abdominal: Tenderness: There is no abdominal tenderness. Musculoskeletal: Right lower leg: No edema. (more content not included)... Normal [facility] 11-01-[address] [facility] Telephone (ZeroG WirelessMTE) BESSY VALVERDE ([id number]) 1945 M Date Time Provider Department 11/01/24 LIAN COULTER During your visit today, we recorded the following information about you: Lian Coulter, [facility] 11/01/2024 8:37 AM Signed [facility] Anticoagulation Episode Summary Anticoagulation Care Providers Provider Role Specialty Phone number George Mata MD [facility] Internal Medicine [phone] Bessy Valverde is a 78 year old year old male patient being evaluated today for a Telemanagement visit. Patient is currently on the following anticoagulant(s) Warfarin. Labs PT INR (no units) Date Value 11/19/2021 2.7 biotel 11/05/2021 2.5 10/22/2021 2.8 biotel INR Home CoaguChek (no units) Date Value 11/01/2024 3.2 10/18/2024 3.5 10/04/2024 2.7 Hemoglobin (g/dL) Date Value 09/06/2024 11.3 09/23/2021 13.8 Hematocrit (%) Date Value 09/06/2024 33.9 09/23/2021 44.4 Platelet Count (k/uL) Date Value 09/06/2024 141 09/23/2021 160 Creatinine (mg/dL) Date Value 09/06/2024 1.66 01/25/2024 1.30 07/29/2023 1.35 09/23/2021 1.18 09/02/2021 1.31 08/05/2021 1.68 Bilirubin, Total (mg/dL) Date Value 09/06/2024 1.3 08/22/2021 1.2 ALT (U/L) Date Value 09/06/2024 15 08/22/2021 36 AST (U/L) Date Value 09/06/2024 21 08/22/2021 45 Estimated Creatinine Clearance: 37.4 mL/min (A) (based on SCr of 1.66 mg/dL (H)). 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 Permanent atrial fibrillation (hcc) Anticoagulation Episode Summary Current INR goal: 2.0-3.0 Assessment: INR result of 3.2 is SUPRAtherapeutic due to: unknown cause - did not speak to patient Plan: Current Warfarin Dosing As of 11/01/2024 Full warfarin instructions: 11/01: Hold; Otherwise 5 mg every Mon, Fri; 2.5 mg all other days Left voice message Advised patient to hold 1 dose then continue current regimen Next home INR check scheduled on 11/15/2024 Patient advised to call the PAC with any medication changes, bleeding/bruising concerns, recent changes in vitamin k consumption, if any procedures are coming up, if they have been ill or in the hospital, and if they have missed any doses of warfarin. Lian Coulter [facility] Clinical Pharmacist, Pharmacy Anticoagulation Clinic Pharmacy Anticoagulation Clinic Pager: [phone]. 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 - montelukast (SINGULAIR) 10 mg tablet Take 1 tablet by mouth daily at bedtime. For asthma and allergies. - fluticasone-salmeterol (ADVAIR DISKUS) 100-50 mcg/dose inhaler Inhale 1 Puff as instructed two times a day. Rinse mouth out after use with water. - pantoprazole DR (PROTONIX) 20 mg tablet Take 1 tablet by mouth daily before breakfast. Take on empty stomach, 1/2 hr before meal. - vodziorew-ksvuiy-cpncsx ne-scop () 16.2-0.1037 -0.0194 mg per tablet Take 1 tablet by mouth every 6 hours as needed. - warfarin (COUMADIN) 5 mg tablet 5 mg every Mon AND Fr ; 2.5 mg all other days - bumetanide (BUMEX) 1 mg tablet Take 1 tablet by mouth once daily. Or as directed for weight gain, fluid retention. - albuterol HFA (VENTOLIN HFA) 90 mcg/actuation inhaler USE 2 INHALATIONS 4 TIMES A DAY IF NEEDED - nitroglycerin sublingual (NITROSTAT) 0.4 mg SL tablet Dissolve 1 tablet under the tongue as needed. DISSOLVE ON TONGUE FOR CHEST PAIN. IF NO PAIN RELIEF, CALL 911 - ENTRESTO 24-26 mg tablet Take 1 tablet by mouth twice daily. - sotalol (BETAPACE) 80 mg tablet Take 2 tablets by mouth twice daily. - spironolactone (ALDACTONE) 25 mg tablet Take 25 mg by mouth once daily. - LOW-DOSE ASPIRIN ORAL Take 1 tablet by mouth once daily. - blood sugar diagnostic (BLOOD GLUCOSE TEST) test strip Test blood sugar(s) one times daily. 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 Normal [facility] CNPNon 10-18-2024 CNPN Telephone (PHAMTE) BESSY VALVERDE ([id number]) 1945 M Date Time Provider Department 10/18/24 JONATHAN HAWKINS During your visit today, we recorded the following information about you: Jonathan Hawkins [facility] 10/18/2024 8:01 AM Signed [facility] Anticoagulation Episode Summary Anticoagulation Care Providers Provider Role Specialty Phone number George Mata MD Responsible Internal Medicine [phone] Bessy Hernandez Nicolle is a 78 year old year old male patient being evaluated today for a Telemanagement visit. Patient is currently on the following anticoagulant(s) Warfarin. Labs PT INR (no units) Date Value 11/19/2021 2.7 biotel 11/05/2021 2.5 10/22/2021 2.8 biotel INR Home CoaguChek (no units) Date Value 10/18/2024 3.5 10/04/2024 2.7 09/20/2024 2.5 Hemoglobin (g/dL) Date Value 09/06/2024 11.3 09/23/2021 13.8 Hematocrit (%) Date Value 09/06/2024 33.9 09/23/2021 44.4 Platelet Count (k/uL) Date Value 09/06/2024 141 09/23/2021 160 Creatinine (mg/dL) Date Value 09/06/2024 1.66 01/25/2024 1.30 07/29/2023 1.35 09/23/2021 1.18 09/02/2021 1.31 08/05/2021 1.68 Bilirubin, Total (mg/dL) Date Value 09/06/2024 1.3 08/22/2021 1.2 ALT (U/L) Date Value 09/06/2024 15 08/22/2021 36 AST (U/L) Date Value 09/06/2024 21 08/22/2021 45 Estimated Creatinine Clearance: 37.4 mL/min (A) (based on SCr of 1.66 mg/dL (H)). ALLERGIES No Known Allergies Indication for Warfarin: Anticoagulation Episode Summary Current INR goal: 2.0-3.0 Assessment: INR result of 3.5 is SUPRAtherapeutic due to: Decreased vitamin k intake Plan: Current Warfarin Dosing As of 10/18/2024 Full warfarin instructions: 10/18: 1.25 mg; Otherwise 5 mg every Mon, Fri; 2.5 mg all other days Called and spoke to patient/caregiver Advised patient to decrease dose for 1 day only then resume weekly regimen Next home INR check scheduled on 11/01/2024 Patient verbalizes understanding of the plan. Patient advised to call the PAC with any medication changes, bleeding/bruising concerns, recent changes in vitamin k consumption, if any procedures are coming up, if they have been ill or in the hospital, and if they have missed any doses of warfarin. Jonathan Hawkins [facility] Clinical Pharmacist, Pharmacy Anticoagulation Clinic Pharmacy Anticoagulation Clinic Pager: [phone]. Allergies As of Date: 10/18/2024 (No Known Allergies) Date Reviewed: 08/09/2024 Reviewed by: Daphney Obando LPN - Fully Assessed Reason for Visit: Anticoagulation Telephone Fu [148] Cmt: Home INR result Prescriptions as of 10/18/2024 - atorvastatin (LIPITOR) 40 mg tablet Take 1 tablet by mouth once daily. - montelukast (SINGULAIR) 10 mg tablet Take 1 tablet by mouth daily at bedtime. For asthma and allergies. - fluticasone-salmeterol (ADVAIR DISKUS) 100-50 mcg/dose inhaler Inhale 1 Puff as instructed two times a day. Rinse mouth out after use with water. - pantoprazole DR (PROTONIX) 20 mg tablet Take 1 tablet by mouth daily before breakfast. Take on empty stomach, 1/2 hr before meal. - dpysauqwj-xyrxlz-iuogzm ne-scop () 16.2-0.1037 -0.0194 mg per tablet Take 1 tablet by mouth every 6 hours as needed. - warfarin (COUMADIN) 5 mg tablet 5 mg every Thu AND Fr ; 2.5 mg all other days - bumetanide (BUMEX) 1 mg tablet Take 1 tablet by mouth once daily. Or as directed for weight gain, fluid retention. - albuterol HFA (VENTOLIN HFA) 90 mcg/actuation inhaler USE 2 INHALATIONS 4 TIMES A DAY IF NEEDED - nitroglycerin sublingual (NITROSTAT) 0.4 mg SL tablet Dissolve 1 tablet under the tongue as needed. DISSOLVE ON TONGUE FOR CHEST PAIN. IF NO PAIN RELIEF, CALL 911 - ENTRESTO 24-26 mg tablet Take 1 tablet by mouth twice daily. - sotalol (BETAPACE) 80 mg tablet Take 2 tablets by mouth twice daily. - spironolactone (ALDACTONE) 25 mg tablet Take 25 mg by mouth once daily. - LOW-DOSE ASPIRIN ORAL Take 1 tablet by mouth once daily. - blood sugar diagnostic (BLOOD GLUCOSE TEST) test strip Test blood sugar(s) one times daily. Dx: Type 2 DM - Controlled E11.9 Insulin: No - Blood-Glucose Meter monitoring kit Glucose Meter of Choice - Kit - Dx: Type 2 DM - Controlled E11.9 Problem List As Of Date 10/18/2024 Noted Resolved Coronary atherosclerosis [I25.10] 05/19/2005 PURE HYPERCHOLESTEROLEM [E78.00] 05/19/2005 Gastroesophageal reflux disease without esophag*05/19/2005 Essential hypertension [I10] 05/19/2005 Postsurgical aortocoronary bypass status [Z95.1]06/22/2007 01/27/2019 IRRITABLE COLON [K58.9] 06/22/2007 Asthma, moderate persistent, well-controlled [J*12/09/2008 Screen for colon cancer [Z12.11] 07/11/2010 12/03/2012 Colon polyp [K63.5] 07/26/2010 07/24/2022 Diverticulosis [K57.90] 07/26/2010 01/27/2019 Occult GI bleeding [R1 (more content not included)... Normal [facility] Ankle Brachial Indexon 10-17 Ankle Brachial Index [facility] [address] [place] [address] Ankle Brachial Index 10/17/24 1252 MR#: [id number] Acct: [id number] Name: BESSY VALVERDE Rep #: [id number] : 1945 78 From: Faizan Pierce MD Attending Dr: Dr. Faizan Pierce MD Status: DE P CLI Ordering Dr: Faizan Pierce MD Date: 10/17/24 Location: [facility] Sex: M C Admitted: Reason For Study Reason For Study: Atherosclerosis Procedure A bilateral lower extremity continuous wave Doppler with analog waveform analysis and ankle brachial indexes. Left Segmental Pressures Left brachial= 111mmHg. Left posterior tibial artery = >254mmHg. Left dorsalis pedis artery = >254mmHg. Left digit = 72 mmHg. The left dorsalis pedis waveforms are biphasic. The left posterior tibial artery waveforms are triphasic. Right Segmental Pressures Right brachial= 100mmHg. Right posterior tibial artery = >254mmHg. Right dorsalis pedis artery = >254mmHg. Right digit = 72 mmHg. The right dorsalis pedis waveforms are triphasic. The right posterior tibial artery waveforms are triphasic. Indices The right ankle brachial index by the dorsalis pedis is NC. The right ankle brachial index by the posterior tibial artery is NC. The right digital-brachial index is 0.65. The left ankle brachial index by the dorsalis pedis is NC. The left ankle brachial index by the posterior tibial artery is NC. The left digital-brachial index is 0.65. VL/Ankle Brachial Index Interpretation Summary Bilateral noncompressible and bilateral triphasic flow. Ordering Physician: Stan Alcocer Dr., MD Referring Physician: George Mata M.D. Performed By: Monica Mcginnis RVT and Student 12/08/241999 Date Faizan Pierce MD CC: Dr. Faizan Pierce MD; Dr. George Mata MD Date Dictated: 10/17/241251 Date Transcribed: 12/08/241999 Tub Washer: Signed [facility] 10-04-[address] [facility] Telephone (PHAMTE) VALVERDEBESSY Hernandez ([id number]) 1945 M Date Time Provider Department 10/04/24 JONATHAN HAWKINS PHAMTE During your visit today, we recorded the following information about you: [facility] 8:24 AM Signed [facility] Anticoagulation Episode Summary Anticoagulation Care Providers Provider Role Specialty Phone number George Mata MD [facility] Internal Medicine [phone] Bessy Hernandez Nicolle is a 78 year old year old male patient being evaluated today for a Telemanagement visit. Patient is currently on the following anticoagulant(s) Warfarin. Labs PT INR (no units) Date Value 11/19/2021 2.7 biotel 11/05/2021 2.5 10/22/2021 2.8 biotel INR Home CoaguChek (no units) Date Value 10/04/2024 2.7 09/20/2024 2.5 09/06/2024 2.2 Hemoglobin (g/dL) Date Value 09/06/2024 11.3 09/23/2021 13.8 Hematocrit (%) Date Value 09/06/2024 33.9 09/23/2021 44.4 Platelet Count (k/uL) Date Value 09/06/2024 141 09/23/2021 160 Creatinine (mg/dL) Date Value 09/06/2024 1.66 01/25/2024 1.30 07/29/2023 1.35 09/23/2021 1.18 09/02/2021 1.31 08/05/2021 1.68 Bilirubin, Total (mg/dL) Date Value 09/06/2024 1.3 08/22/2021 1.2 ALT (U/L) Date Value 09/06/2024 15 08/22/2021 36 AST (U/L) Date Value 09/06/2024 21 08/22/2021 45 Estimated Creatinine Clearance: 37.4 mL/min (A) (based on SCr of 1.66 mg/dL (H)). ALLERGIES No Known Allergies Indication for Warfarin: Anticoagulation Episode Summary Current INR goal: 2.0-3.0 Assessment: INR result of 2.7 is therapeutic Plan: Current Warfarin Dosing As of 10/04/2024 Full warfarin instructions: 5 mg every Mon, Fri; 2.5 mg all other days Called and spoke to patient/caregiver Advised patient to continue current weekly dose as noted above Next home INR check scheduled on 10/18/2024 Patient verbalizes understanding of the plan. Patient advised to call the PAC with any medication changes, bleeding/bruising concerns, recent changes in vitamin k consumption, if any procedures are coming up, if they have been ill or in the hospital, and if they have missed any doses of warfarin. Jonathan Hawkins [facility] Clinical Pharmacist, Pharmacy Anticoagulation Clinic Pharmacy Anticoagulation Clinic Pager: [phone]. Allergies As of Date: 10/04/2024 (No Known Allergies) Date Reviewed: 08/09/2024 Reviewed by: Daphney Obando LPN - Fully Assessed Reason for Visit: Anticoagulation Telephone Fu [148] Cmt: Home INR result Prescriptions as of 10/04/2024 - atorvastatin (LIPITOR) 40 mg tablet Take 1 tablet by mouth once daily. - montelukast (SINGULAIR) 10 mg tablet Take 1 tablet by mouth daily at bedtime. For asthma and allergies. - fluticasone-salmeterol (ADVAIR DISKUS) 100-50 mcg/dose inhaler Inhale 1 Puff as instructed two times a day. Rinse mouth out after use with water. - pantoprazole DR (PROTONIX) 20 mg tablet Take 1 tablet by mouth daily before breakfast. Take on empty stomach, 1/2 hr before meal. - wgkdrysbx-xchdch-rjvcfq ne-scop () 16.2-0.1037 -0.0194 mg per tablet Take 1 tablet by mouth every 6 hours as needed. - warfarin (COUMADIN) 5 mg tablet 5 mg every Mon AND Fr ; 2.5 mg all other days - bumetanide (BUMEX) 1 mg tablet Take 1 tablet by mouth once daily. Or as directed for weight gain, fluid retention. - albuterol HFA (VENTOLIN HFA) 90 mcg/actuation inhaler USE 2 INHALATIONS 4 TIMES A DAY IF NEEDED - nitroglycerin sublingual (NITROSTAT) 0.4 mg SL tablet Dissolve 1 tablet under the tongue as needed. DISSOLVE ON TONGUE FOR CHEST PAIN. IF NO PAIN RELIEF, CALL 911 - ENTRESTO 24-26 mg tablet Take 1 tablet by mouth twice daily. - sotalol (BETAPACE) 80 mg tablet Take 2 tablets by mouth twice daily. - spironolactone (ALDACTONE) 25 mg tablet Take 25 mg by mouth once daily. - LOW-DOSE ASPIRIN ORAL Take 1 tablet by mouth once daily. - blood sugar diagnostic (BLOOD GLUCOSE TEST) test strip Test blood sugar(s) one times daily. 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 Normal [facility] CNPNon 09-20-2024 CNPN Telephone (PHAMTE) BESSY VALVERDE ([id number]) 1945 M Date Time Provider Department 09/20/24 JONATHAN HAWKINS PHAGARRETT During your visit today, we recorded the following information about you: Jonathan Hawkins [facility] 09/20/2024 9:14 AM Signed [facility] Anticoagulation Episode Summary Anticoagulation Care Providers Provider Role Specialty Phone number George Mata MD [facility] Internal Medicine [phone] Bessy Valverde is a 78 year old year old male patient being evaluated today for a Telemanagement visit. Patient is currently on the following anticoagulant(s) Warfarin. Labs PT INR (no units) Date Value 11/19/2021 2.7 biotel 11/05/2021 2.5 10/22/2021 2.8 biotel INR Home CoaguChek (no units) Date Value 09/20/2024 2.5 09/06/2024 2.2 08/23/2024 1.7 Hemoglobin (g/dL) Date Value 09/06/2024 11.3 09/23/2021 13.8 Hematocrit (%) Date Value 09/06/2024 33.9 09/23/2021 44.4 Platelet Count (k/uL) Date Value 09/06/2024 141 09/23/2021 160 Creatinine (mg/dL) Date Value 09/06/2024 1.66 01/25/2024 1.30 07/29/2023 1.35 09/23/2021 1.18 09/02/2021 1.31 08/05/2021 1.68 Bilirubin, Total (mg/dL) Date Value 09/06/2024 1.3 08/22/2021 1.2 ALT (U/L) Date Value 09/06/2024 15 08/22/2021 36 AST (U/L) Date Value 09/06/2024 21 08/22/2021 45 Estimated Creatinine Clearance: 37.4 mL/min (A) (based on SCr of 1.66 mg/dL (H)). ALLERGIES No Known Allergies Indication for Warfarin: Anticoagulation Episode Summary Current INR goal: 2.0-3.0 Assessment: INR result of 2.5 is therapeutic Plan: Current Warfarin Dosing As of 09/20/2024 Full warfarin instructions: 5 mg every Mon, Fri; 2.5 mg all other days Called and spoke to patient/caregiver Advised patient to continue current weekly dose as noted above Next home INR check scheduled on 10/04/2024 Patient verbalizes understanding of the plan. Patient advised to call the PAC with any medication changes, bleeding/bruising concerns, recent changes in vitamin k consumption, if any procedures are coming up, if they have been ill or in the hospital, and if they have missed any doses of warfarin. Jonathan Hawkins [facility] Clinical Pharmacist, Pharmacy Anticoagulation Clinic Pharmacy Anticoagulation Clinic Pager: [phone]. Allergies As of Date: 09/20/2024 (No Known Allergies) Date Reviewed: 08/09/2024 Reviewed by: Daphney Obando LPN - Fully Assessed Reason for Visit: Anticoagulation Telephone Fu [148] Cmt: Home INR result Prescriptions as of 09/20/2024 - atorvastatin (LIPITOR) 40 mg tablet Take 1 tablet by mouth once daily. - montelukast (SINGULAIR) 10 mg tablet Take 1 tablet by mouth daily at bedtime. For asthma and allergies. - fluticasone-salmeterol (ADVAIR DISKUS) 100-50 mcg/dose inhaler Inhale 1 Puff as instructed two times a day. Rinse mouth out after use with water. - pantoprazole DR (PROTONIX) 20 mg tablet Take 1 tablet by mouth daily before breakfast. Take on empty stomach, 1/2 hr before meal. - wocacjcpg-ffbvsd-rbhpkm ne-scop () 16.2-0.1037 -0.0194 mg per tablet Take 1 tablet by mouth every 6 hours as needed. - warfarin (COUMADIN) 5 mg tablet 5 mg every Mon AND Fr ; 2.5 mg all other days - bumetanide (BUMEX) 1 mg tablet Take 1 tablet by mouth once daily. Or as directed for weight gain, fluid retention. - albuterol HFA (VENTOLIN HFA) 90 mcg/actuation inhaler USE 2 INHALATIONS 4 TIMES A DAY IF NEEDED - nitroglycerin sublingual (NITROSTAT) 0.4 mg SL tablet Dissolve 1 tablet under the tongue as needed. DISSOLVE ON TONGUE FOR CHEST PAIN. IF NO PAIN RELIEF, CALL 911 - ENTRESTO 24-26 mg tablet Take 1 tablet by mouth twice daily. - sotalol (BETAPACE) 80 mg tablet Take 2 tablets by mouth twice daily. - spironolactone (ALDACTONE) 25 mg tablet Take 25 mg by mouth once daily. - LOW-DOSE ASPIRIN ORAL Take 1 tablet by mouth once daily. - blood sugar diagnostic (BLOOD GLUCOSE TEST) test strip Test blood sugar(s) one times daily. 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 Normal [facility] CNPNon 09-13-2024 CNPN Telephone (INTMWS) BESSY VALVERDE ([id number]) 1945 M Date Time Provider Department 09/13/24 GEORGE MATA INTMWS During your visit today, we recorded the following information about you: Galilea Plunkett MA 09/13/2024 8:36 AM Signed 1) CKD has worsened to stage 3b. Consider nephrology consult. 2) diabetes controlled. 3) lipids controlled. 4) anemia stable. MD Kiarra Rossi [place], MA 09/13/2024 8:36 AM Signed Patient was notified and willing to see nephrology ut would like to remain in [place]. Please place consult and will fax all information to [facility] here in [place]. Patient was given number to call and schedule. Fax number: [phone] Marva Carroll LPN 09/13/2024 8:55 AM Signed asking to be called when the referral has been faxed. If they do not answer, please leave a detailed message. BASILIA Abernathy Victor H, MD 09/14/2024 9:49 AM Signed ASSESSMENT/PLAN: 1. Controlled type 2 diabetes mellitus with stage 3 chronic kidney disease, without long-term current use of insulin (HCC) - ICD9: 250.40, 585.3, ICD10: E11.22, N18.30 - eGFR: Worsening - CONSULT TO NEPHROLOGY. Dr. Mackenzie Iverson, [facility], [facility] Nephrology. MD Kiarra Bright [place], MA 09/16/2024 10:46 AM Signed notified and given Dr. Iverson number to call and schedule. Faxed all documents Galilea Plunkett MA Allergies As of Date: 09/13/2024 (No Known Allergies) Date Reviewed: 08/09/2024 Reviewed by: Daphney Obando LPN - Fully Assessed Reason for Visit: Results [95] Cmt: Labs/consult nephrology Primary Visit Diagnosis:Controlled type 2 diabetes mellitus with stage 3 chronic kidney disease, without long-term current use of insulin (HCC) [E11.22, N18.30] Order(s):CONSULT TO NEPHROLOGY [9018] Order #: [id number]: 1 FUTURE Prescriptions as of 09/16/2024 - atorvastatin (LIPITOR) 40 mg tablet Take 1 tablet by mouth once daily. - montelukast (SINGULAIR) 10 mg tablet Take 1 tablet by mouth daily at bedtime. For asthma and allergies. - fluticasone-salmeterol (ADVAIR DISKUS) 100-50 mcg/dose inhaler Inhale 1 Puff as instructed two times a day. Rinse mouth out after use with water. - pantoprazole DR (PROTONIX) 20 mg tablet Take 1 tablet by mouth daily before breakfast. Take on empty stomach, 1/2 hr before meal. - uacabrvuc-evrgsv-vdhzxx ne-scop () 16.2-0.1037 -0.0194 mg per tablet Take 1 tablet by mouth every 6 hours as needed. - warfarin (COUMADIN) 5 mg tablet 5 mg every Thu AND Fr ; 2.5 mg all other days - bumetanide (BUMEX) 1 mg tablet Take 1 tablet by mouth once daily. Or as directed for weight gain, fluid retention. - albuterol HFA (VENTOLIN HFA) 90 mcg/actuation inhaler USE 2 INHALATIONS 4 TIMES A DAY IF NEEDED - nitroglycerin sublingual (NITROSTAT) 0.4 mg SL tablet Dissolve 1 tablet under the tongue as needed. DISSOLVE ON TONGUE FOR CHEST PAIN. IF NO PAIN RELIEF, CALL 911 - ENTRESTO 24-26 mg tablet Take 1 tablet by mouth twice daily. - sotalol (BETAPACE) 80 mg tablet Take 2 tablets by mouth twice daily. - spironolactone (ALDACTONE) 25 mg tablet Take 25 mg by mouth once daily. - LOW-DOSE ASPIRIN ORAL Take 1 tablet by mouth once daily. - blood sugar diagnostic (BLOOD GLUCOSE TEST) test strip Test blood sugar(s) one times daily. 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]06/22/2007 01/27/2019 IRRITABLE COLON [K58.9] 06/22/2007 Asthma, moderate persistent, well-controlled [J*12/09/2008 Screen for colon cancer [Z12.11] 07/11/2010 12/03/2012 Colon polyp [K63.5] 07/26/2010 07/24/2022 Diverticulosis [K57.90] 07/26/2010 01/27/2019 Occult GI bleeding [R19.5] 08/13/2012 12/03/2012 Positive fecal occult blood test [R19.5] 08/23/2012 12/03/2012 Byers's esophagus [K22.70] 09/10/2012 08/10/2024 Interstitial lung disease (HCC) [J84.9] 03/25/2013 Anticoagulated on Coumadin ( home INR testing) *05/02/2013 11/30/2019 Status post mitral valve replacement [Z95.2] 06/17/2013 Status post implantation of automatic cardiover*06/17/2013 Ventricular tachycardia [I47.20] 06/17/2013 Permanent atrial fibrillation (HCC) [I48.21] 09/28/2019 Impaired fasting glucose [R73.01] 02/21/2015 09/09/2017 Controlled type 2 diabetes mellitus with stage *07/28/2007 Aortic valve stenosis [I35.0] 01/06/2018 Chronic systolic heart failure (HCC) [I50.22] 01/06/2018 Other insomnia [G47.09] 12/02/2018 07/29/2023 penitentiary (current) use of anticoagulant (more content not included)... Normal [facility] CBC panel Auto (Bld)on 09-06 Erythrocyte distribution width (RBC) [Ratio] 15.5 % High 11.5-15.0 [facility] Comment on above: Order Comment: Speci men Type: BLOOD SPECIMENOrdering Facility: [facility] Address: [address] [place] [address] Performed By: #### 5 8410-2 ####[facility] [id number] [place] [address] [place] Hematocrit (Bld) [Volume fraction] 33.9 % Low 39.0-51.0 [facility] Comment on above: Order Comment: Speci men Type: BLOOD SPECIMENOrdering Facility: [facility] Address: [address] [place] [address] Performed By: #### 5 8410-2 ####[facility] [id number] [place] [address] [place] Hemoglobin (Bld) [Mass/Vol] 11.3 g/dL Low 13.0-17.0 [facility] Comment on above: Order Comment: Speci men Type: BLOOD SPECIMENOrdering Facility: [facility] Address: [address] [place] [address] Performed By: #### 5 8410-2 ####[facility] [id number] [place] [address] [place] MCH (RBC) [Entitic mass] 30.5 pg Normal 26.0-34.0 [facility] Comment on above: Order Comment: Speci men Type: BLOOD SPECIMENOrdering Facility: [facility] Address: [address] [place] [address] Performed By: #### 5 8410-2 ####[facility] [id number] [place] [address] [place] MCHC (RBC) [Mass/Vol] 33.3 g/dL Normal 30.5-36.0 [facility] Comment on above: Order Comment: Speci men Type: BLOOD SPECIMENOrdering Facility: [facility] Address: [address] [place] [address] Performed By: #### 5 8410-2 ####[facility] [id number] [place] [address] [place] MCV (RBC) [Entitic vol] 91.6 fL Normal 80.0-100.0 [facility] Comment on above: Order Comment: Speci men Type: BLOOD SPECIMENOrdering Facility: [facility] Address: [address] [place] [address] Performed By: #### 5 8410-2 ####[facility] [id number] [place] [address] [place] Nucleated RBC (Bld) [#/Vol] 10*3/uL Normal <0.01 [facility] Comment on above: Order Comment: Speci men Type: BLOOD SPECIMENOrdering Facility: [facility] Address: [address] [place] [address] Performed By: #### 5 8410-2 ####[facility] [id number] [place] [address] [place] Platelet mean volume (Bld) [Entitic vol] 11.0 fL Normal 9.0-12.7 [facility] Comment on above: Order Comment: Speci men Type: BLOOD SPECIMENOrdering Facility: [facility] Address: [address] [place] [address] Performed By: #### 5 8410-2 ####[facility] [id number] [place] [address] [place] Platelets (Bld) [#/Vol] 141 10*3/uL Low 150-400 [facility] Comment on above: Order Comment: Speci men Type: BLOOD SPECIMENOrdering Facility: [facility] Address: [address] [place] [address] Performed By: #### 5 8410-2 ####[facility] LABCLIA [id number] [place] [address] [place] RBC (Bld) [#/Vol] 3.70 10*6/uL Low 4.20-6.00 [facility] Comment on above: Order Comment: Speci men Type: BLOOD SPECIMENOrdering Facility: [facility] Address: [address] [place] [address] Performed By: #### 5 8410-2 ####[facility] LABCLIA [id number] [place] [address] [place] WBC (Bld) [#/Vol] 7.66 10*3/uL Normal 3.70-11.00 [facility] Comment on above: Order Comment: Speci men Type: BLOOD SPECIMENOrdering Facility: [facility] Address: [address] [place] [address] Performed By: #### 5 8410-2 ####[facility] LABIA [id number] [address] [place] CNPRachelle 09-06-2024 CNPN Telephone (PHAMTE) BESSY VALVERDE ([id number]) 1945 M Date Time Provider Department 09/06/24 JONATHAN HAWKINS During your visit today, we recorded the following information about you: Jonathan Hawkins [facility] 09/06/2024 8:24 AM Signed [facility] Anticoagulation Episode Summary Anticoagulation Care Providers Provider Role Specialty Phone number George Mata MD [facility] Internal Medicine [phone] Bessy Valverde is a 78 year old year old male patient being evaluated today for a Telemanagement visit. Patient is currently on the following anticoagulant(s) Warfarin. Labs PT INR (no units) Date Value 11/19/2021 2.7 biotel 11/05/2021 2.5 10/22/2021 2.8 biotel INR Home CoaguChek (no units) Date Value 09/06/2024 2.2 08/23/2024 1.7 08/16/2024 3.5 Hemoglobin (g/dL) Date Value 01/25/2024 12.2 09/23/2021 13.8 Hematocrit (%) Date Value 01/25/2024 37.8 09/23/2021 44.4 Platelet Count (k/uL) Date Value 01/25/2024 125 09/23/2021 160 Creatinine (mg/dL) Date Value 01/25/2024 1.30 07/29/2023 1.35 01/23/2023 1.27 09/23/2021 1.18 09/02/2021 1.31 08/05/2021 1.68 Bilirubin, Total (mg/dL) Date Value 01/25/2024 0.9 08/22/2021 1.2 ALT (U/L) Date Value 01/25/2024 20 08/22/2021 36 AST (U/L) Date Value 01/25/2024 24 08/22/2021 45 CrCl cannot be calculated (Patient's most recent lab result is older than the maximum 180 days allowed.). ALLERGIES No Known Allergies Indication for Warfarin: Anticoagulation Episode Summary Current INR goal: 2.0-3.0 Assessment: INR result of 2.2 is therapeutic Plan: Current Warfarin Dosing As of 09/06/2024 Full warfarin instructions: 5 mg every Mon, Fri; 2.5 mg all other days Left voice message Advised patient to continue current weekly dose as noted above Next home INR check scheduled on 09/20/2024 Patient advised to call the PAC with any medication changes, bleeding/bruising concerns, recent changes in vitamin k consumption, if any procedures are coming up, if they have been ill or in the hospital, and if they have missed any doses of warfarin. Jonathan Hawkins [facility] Clinical Pharmacist, Pharmacy Anticoagulation Clinic Pharmacy Anticoagulation Clinic Pager: [phone]. Allergies As of Date: 09/06/2024 (No Known Allergies) Date Reviewed: 08/09/2024 Reviewed by: Daphney Obando LPN - Fully Assessed Reason for Visit: Anticoagulation Telephone Fu [148] Cmt: Home INR result Prescriptions as of 09/06/2024 - atorvastatin (LIPITOR) 40 mg tablet Take 1 tablet by mouth once daily. - montelukast (SINGULAIR) 10 mg tablet Take 1 tablet by mouth daily at bedtime. For asthma and allergies. - fluticasone-salmeterol (ADVAIR DISKUS) 100-50 mcg/dose inhaler Inhale 1 Puff as instructed two times a day. Rinse mouth out after use with water. - pantoprazole DR (PROTONIX) 20 mg tablet Take 1 tablet by mouth daily before breakfast. Take on empty stomach, 1/2 hr before meal. - teffhktvj-zcvklw-hlagaa ne-scop () 16.2-0.1037 -0.0194 mg per tablet Take 1 tablet by mouth every 6 hours as needed. - warfarin (COUMADIN) 5 mg tablet 5 mg every Thu AND Fr ; 2.5 mg all other days - bumetanide (BUMEX) 1 mg tablet Take 1 tablet by mouth once daily. Or as directed for weight gain, fluid retention. - albuterol HFA (VENTOLIN HFA) 90 mcg/actuation inhaler USE 2 INHALATIONS 4 TIMES A DAY IF NEEDED - nitroglycerin sublingual (NITROSTAT) 0.4 mg SL tablet Dissolve 1 tablet under the tongue as needed. DISSOLVE ON TONGUE FOR CHEST PAIN. IF NO PAIN RELIEF, CALL 911 - ENTRESTO 24-26 mg tablet Take 1 tablet by mouth twice daily. - sotalol (BETAPACE) 80 mg tablet Take 2 tablets by mouth twice daily. - spironolactone (ALDACTONE) 25 mg tablet Take 25 mg by mouth once daily. - LOW-DOSE ASPIRIN ORAL Take 1 tablet by mouth once daily. - blood sugar diagnostic (BLOOD GLUCOSE TEST) test strip Test blood sugar(s) one times daily. 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 Normal [facility] Comprehensive metabolic 2000 panelon 09-06-2024 Albumin [Mass/Vol] 4.0 g/dL Normal 3.9-4.9 [facility] Comment on above: Order Comment: Speci men Type: BLOOD SPECIMENOrdering Facility: [facility] Address: [address] [place] [address] Performed By: #### 2 4323-8, 10458-4 ####[facility] LABCLIA [id number] [place] [address] [place] ALP [Catalytic activity/Vol] 79 U/L Normal 38-113 [facility] Comment on above: Order Comment: Speci men Type: BLOOD SPECIMENOrdering Facility: [facility] Address: [address] [place] [address] Performed By: #### 2 4323-8, 32337-8 ####[facility] LABCLIA [id number] [place] [address] [place] ALT [Catalytic activity/Vol] 15 U/L Normal 10-54 [facility] Comment on above: Order Comment: Speci men Type: BLOOD SPECIMENOrdering Facility: [facility] Address: [address] [place] [id number] Performed By: #### 2 4323-8, 65954-6 ####[facility] LABCLIA [id number] [place] [id number] [place] Anion gap [Moles/Vol] 12 mmol/L Normal 8-15 [facility] Comment on above: Order Comment: Speci men Type: BLOOD SPECIMENOrdering Facility: [facility] Address: [address] [place] [address] Performed By: #### 2 4323-8, 70636-1 ####[facility] LABCLIA [id number] [place] [address] [place] AST [Catalytic activity/Vol] 21 U/L Normal 14-40 [facility] Comment on above: Order Comment: Speci men Type: BLOOD SPECIMENOrdering Facility: [facility] Address: [address] [place] [address] Performed By: #### 2 4323-8, 78588-7 ####[facility] LABCLIA [id number] [place] [address] [place] Bilirubin [Mass/Vol] 1.3 mg/dL Normal 0.2-1.3 [facility] Comment on above: Order Comment: Speci men Type: BLOOD SPECIMENOrdering Facility: [facility] Address: [address] [place] [address] Performed By: #### 2 4323-8, 17943-1 ####[facility] LABCLIA [id number] [place] [address] [place] Calcium [Mass/Vol] 9.5 mg/dL Normal 8.5-10.2 [facility] Comment on above: Order Comment: Speci men Type: BLOOD SPECIMENOrdering Facility: [facility] Address: [address] [place], [place] [id number] Performed By: #### 2 4323-8, 01911-5 ####[facility] LABCLIA [id number] [facility] [place] [address] [place] Chloride [Moles/Vol] 103 mmol/L Normal 98-107 [facility] Comment on above: Order Comment: Speci men Type: BLOOD SPECIMENOrdering Facility: [facility] Address: [address] [place] [address] Performed By: #### 2 4323-8, 80328-4 ####[facility] LABCLIA [id number] [place] [address] [place] CO2 [Moles/Vol] 24 mmol/L Normal 22-30 [facility] Comment on above: Order Comment: Speci men Type: BLOOD SPECIMENOrdering Facility: [facility] Address: [address] [place] [address] Performed By: #### 2 4323-8, 42985-7 ####[facility] LABCLIA [id number] [place] [address] [place] Creatinine [Mass/Vol] 1.66 mg/dL High 0.73-1.22 [facility] Comment on above: Order Comment: Speci men Type: BLOOD SPECIMENOrdering Facility: [facility] Address: [address] [place] [address] Performed By: #### 2 4323-8, 59342-9 ####[facility] LABIA [id number] [place] [address] [place] Creatinine and Glomerular filtration rate.predicted panel (S/P/Bld) 42 mL/min/1.73m??? Low >=60 [facility] Comment on above: Order Comment: Speci men Type: BLOOD SPECIMENOrdering Facility: [facility] Address: [address] [place] [address] Result Comment: Lory mated Glomerular Filtration Rate (eGFR) is calculated using the 2020 CKD-EPI creatinine equation. This equation utilizes serum creatinine, sex, and age as parameters. The creatinine assay has traceable calibration to isotope dilution-mass spectrometry. Refer to KDIGO guidelines for clinical interpretation. In patients with unstable renal function, e.g. those with acute kidney injury, the eGFR may not accurately reflect actual GFR. Performed By: #### 2 4323-8, 49576-0 ####[facility] LABCLIA [id number] [place] [address] [place] Glucose [Mass/Vol] 128 mg/dL High 74-99 [facility] Comment on above: Order Comment: Speci men Type: BLOOD SPECIMENOrdering Facility: [facility] Address: [address] [place] [address] Result Comment: The [place] Diabetes Association (ADA) provides guidance for cutoff values for fasting glucose and random glucose. The ADA defines fasting as no caloric intake for at least 8 hours. Fasting plasma glucose results between 100 to 125 mg/dL indicate increased risk for diabetes (prediabetes). Fasting plasma glucose results greater than or equal to 126 mg/dL meet the criteria for diagnosis of diabetes. In the absence of unequivocal hyperglycemia, results should be confirmed by repeat testing. In a patient with classic symptoms of hyperglycemia or hyperglycemic crisis, random plasma glucose results greater than or equal to 200 mg/dL meet the criteria for diagnosis of diabetes. Reference: Standards of Medical Care in Diabetes 2016, [place] Diabetes Association. Diabetes Care. 2016.39(Suppl 1). Performed By: #### 2 4323-8, 53125-5 ####[facility] LABCLIA [id number] [place] [id number] [place] Potassium [Moles/Vol] 4.8 mmol/L Normal 3.7-5.1 [facility] Comment on above: Order Comment: Speci men Type: BLOOD SPECIMENOrdering Facility: [facility] Address: [address] [place] [address] Performed By: #### 2 4323-8, 82926-4 ####[facility] LABCLIA [id number] [place] [id number] [place] Protein [Mass/Vol] 7.1 g/dL Normal 6.3-8.0 [facility] Comment on above: Order Comment: Speci men Type: BLOOD SPECIMENOrdering Facility: [facility] Address: [facility] [place] [address] Performed By: #### 2 4323-8, 57606-5 ####[facility] LABCLIA [id number] [place] [address] [place] Sodium [Moles/Vol] 139 mmol/L Normal 136-144 [facility] Comment on above: Order Comment: Speci men Type: BLOOD SPECIMENOrdering Facility: [facility] Address: [address] [place] [address] Performed By: #### 2 4323-8, 12530-3 ####[facility] LABIA [id number] [place] [address] [place] Urea nitrogen [Mass/Vol] 38 mg/dL High 9-24 [facility] Comment on above: Order Comment: Speci men Type: BLOOD SPECIMENOrdering Facility: [facility] Address: [address] [place] [address] Performed By: #### 2 4323-8, 21323-5 ####[facility] LABCLIA [id number] [place] [address] [place] HbA1c (Bld)on 09-06-2024 Average glucose Estimated from glycated hemoglobin (Bld) [Mass/Vol] 151 mg/dL Normal [facility] Comment on above: Order Comment: Speci men Type: BLOOD SPECIMENOrdering Facility: [facility] Address: [address] [place] [address] Result Comment: eAG: (Estimated average glucose) is a calculated value from HgbA1c and is industrial sales representative of the average blood glucose level in the last 2-3 month period. Performed By: #### 5 5454-3 ####[facility] LABCLIA [id number] [place] [address] [place] HbA1c (Bld) [Mass fraction] 6.9 % High 4.3-5.6 [facility] Comment on above: Order Comment: Moyi men Type: BLOOD SPECIMENOrdering Facility: [facility] Address: [address] [place] [address] Result Comment: Teresa ican Diabetes Association guidelines indicate that patients with HgbA1c in the range 5.7-6.4% are at increased risk for development of diabetes, and intervention by lifestyle modification may be beneficial. HgbA1c greater or equal to 6.5% is considered diagnostic of diabetes. Performed By: #### 5 5454-3 ####[facility] LABCLIA [id number] [place] [address] [place] Lipid 1996 panelon 5 Cholesterol [Mass/Vol] 125 mg/dL Normal <200 [facility] Comment on above: Order Comment: Marge marni Type: BLOOD SPECIMENOrdering Facility: [facility] Address: [address] [place] [address] Result Comment: <200 mg/dL, Desirable 200-239 mg/dL, Borderline high >239 mg/dL, High Performed By: #### 2 4323-8, 30388-1 ####[facility] LABCLIA [id number] [address] [place] Cholesterol in HDL [Mass/Vol] 34 mg/dL Low >39 [facility] Comment on above: Order Comment: Marge marni Type: BLOOD SPECIMENOrdering Facility: [facility] Address: [address] [place] [address] Result Comment: 40-5 9 mg/dL, Acceptable >59 mg/dL, High: Negative risk factor for coronary heart disease <40 mg/dL, Low: Positive risk factor for coronary heart disease Performed By: #### 2 4323-8, 04665-2 ####[facility] LABCLIA [id number] [address] [place] Cholesterol in LDL [Mass/Vol] 67 mg/dL Normal <100 [facility] Comment on above: Order Comment: Speci men Type: BLOOD SPECIMENOrdering Facility: [facility] Address: [address] [place] [address] Result Comment: <100 mg/dL, Optimal 100-129 mg/dL, Near optimal/above optimal 130-159 mg/dL, Borderline high 160-189 mg/dL, High >189 mg/dL, Very high Secondary prevention optimal LDL Cholesterol levels are recommended to be < 70 mg/dL Performed By: #### 2 4323-8, 47386-9 ####[facility] LABCLIA [id number] [place] [address] [place] Cholesterol in LDL/Cholesterol in HDL [Mass ratio] 1.97 {ratio} Normal <2.54 [facility] Comment on above: Order Comment: Marge grider Type: BLOOD SPECIMENOrdering Facility: [facility] Address: [address] [place] [address] Result Comment: Refe rence: 1. National Cholesterol Education Program ATP III Guideline At-A-Glance Quick Desk Reference: National Heart, Lung, and Blood [place]. National Institutes of Health. 2001: NIH Publication No. 01-3305. 2. An International Atherosclerosis Society position paper: global recommendations for the management of dyslipidemia: executive summary, Atherosclerosis. 2014: 232(2):410-413. Performed By: #### 2 4323-8, 93245-6 ####[facility] LABCLIA [id number] [place] [address] [place] Cholesterol in VLDL [Mass/Vol] 24 mg/dL Normal <30 [facility] Comment on above: Order Comment: Marge marni Type: BLOOD SPECIMENOrdering Facility: [facility] Address: [address] [place] [address] Performed By: #### 2 4323-8, ####[facility] LABCLIA [id number] [address] [address] [place] Cholesterol non HDL [Mass/Vol] 91 mg/dL Normal <130 [facility] Comment on above: Order Comment: Moyrupali men Type: BLOOD SPECIMENOrdering Facility: [facility] Address: [address] [place] [address] Result Comment: <130 mg/dL, Optimal 130-159 mg/dL, Near optimal/above optimal 160-189 mg/dL, Borderline high 190-219 mg/dL, High >219 mg/dL, Very high Secondary prevention optimal non HDL Cholesterol levels are recommended to be <100 mg/dL Performed By: #### 2 4323-8, 37008-5 ####[facility] LABCLIA [id number] [place] [address] [place] Cholesterol.total/Ch olesterol in HDL [Mass ratio] 3.68 {ratio} Normal <5.10 [facility] Comment on above: Order Comment: Speci men Type: BLOOD SPECIMENOrdering Facility: [facility] Address: [address] [place] [address] Performed By: #### 2 4323-8, 36618-8 ####[facility] LABCLIA [id number] [address] [place] FASTING TIME 12 hrs Normal [facility] Comment on above: Order Comment: Speci men Type: BLOOD SPECIMENOrdering Facility: [facility] Address: [address] [place] [address] Performed By: #### 2 4323-8, 46203-8 ####[facility] LABCLIA [id number] [place] [address] [place] Triglyceride [Mass/Vol] 119 mg/dL Normal <150 [facility] Comment on above: Order Comment: Speci men Type: BLOOD SPECIMENOrdering Facility: [facility] Address: [address] [place] [address] Result Comment: <150 mg/dL, Normal 150-199 mg/dL, Borderline high 200-499 mg/dL, High >499 mg/dL, Very high Performed By: #### 2 4323-8, 48059-5 ####[facility] LABCLIA [id number] [place] [address] [place] Guero 08-23-2024 CNPN Telephone (INTMWS) BESSY VALVERED ([id number]) 1945 M Date Time Provider Department 08/23/24 GEORGE MATA INTMWS During your visit today, we recorded the following information about you: Francois Nguyen, RN 08/23/2024 11:15 AM Signed [facility], letting pcp know, patient declined appt with [facility], stating he found out he had gout, and is doing a lot better now. Allergies As of Date: 08/23/2024 (No Known Allergies) Date Reviewed: 08/09/2024 Reviewed by: Daphney Obando LPN - Fully Assessed Reason for Visit: Declined podiatry referral [Other] Prescriptions as of 08/23/2024 - atorvastatin (LIPITOR) 40 mg tablet Take 1 tablet by mouth once daily. - montelukast (SINGULAIR) 10 mg tablet Take 1 tablet by mouth daily at bedtime. For asthma and allergies. - fluticasone-salmeterol (ADVAIR DISKUS) 100-50 mcg/dose inhaler Inhale 1 Puff as instructed two times a day. Rinse mouth out after use with water. - pantoprazole DR (PROTONIX) 20 mg tablet Take 1 tablet by mouth daily before breakfast. Take on empty stomach, 1/2 hr before meal. - fwrzbljup-iynerh-pkpnoi ne-scop () 16.2-0.1037 -0.0194 mg per tablet Take 1 tablet by mouth every 6 hours as needed. - warfarin (COUMADIN) 5 mg tablet 5 mg every Mon AND Fr ; 2.5 mg all other days - bumetanide (BUMEX) 1 mg tablet Take 1 tablet by mouth once daily. Or as directed for weight gain, fluid retention. - albuterol HFA (VENTOLIN HFA) 90 mcg/actuation inhaler USE 2 INHALATIONS 4 TIMES A DAY IF NEEDED - nitroglycerin sublingual (NITROSTAT) 0.4 mg SL tablet Dissolve 1 tablet under the tongue as needed. DISSOLVE ON TONGUE FOR CHEST PAIN. IF NO PAIN RELIEF, CALL 911 - ENTRESTO 24-26 mg tablet Take 1 tablet by mouth twice daily. - sotalol (BETAPACE) 80 mg tablet Take 2 tablets by mouth twice daily. - spironolactone (ALDACTONE) 25 mg tablet Take 25 mg by mouth once daily. - LOW-DOSE ASPIRIN ORAL Take 1 tablet by mouth once daily. - blood sugar diagnostic (BLOOD GLUCOSE TEST) test strip Test blood sugar(s) one times daily. 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]06/22/2007 01/27/2019 IRRITABLE COLON [K58.9] 06/22/2007 Asthma, moderate persistent, well-controlled [J*12/09/2008 Screen for colon cancer [Z12.11] 07/11/2010 12/03/2012 Colon polyp [K63.5] 07/26/2010 07/24/2022 Diverticulosis [K57.90] 07/26/2010 01/27/2019 Occult GI bleeding [R19.5] 08/13/2012 12/03/2012 Positive fecal occult blood test [R19.5] 08/23/2012 12/03/2012 Byers's esophagus [K22.70] 09/10/2012 08/10/2024 Interstitial lung disease (HCC) [J84.9] 03/25/2013 Anticoagulated on Coumadin ( home INR testing) *05/02/2013 11/30/2019 Status post mitral valve replacement [Z95.2] 06/17/2013 Status post implantation of automatic cardiover*06/17/2013 Ventricular tachycardia [I47.20] 06/17/2013 Permanent atrial fibrillation (HCC) [I48.21] 09/28/2019 Impaired fasting glucose [R73.01] 02/21/2015 09/09/2017 Controlled type 2 diabetes mellitus with stage *07/28/2007 Aortic valve stenosis [I35.0] 01/06/2018 Chronic systolic heart failure (HCC) [I50.22] 01/06/2018 Other insomnia [G47.09] 12/02/2018 07/29/2023 penitentiary (current) use of anticoagulants [Z79.*01/26/2019 CKD (chronic kidney disease) stage 3, GFR 30-59*01/29/2019 11/30/2019 Gout of foot [M10.9] 11/30/2019 Anemia due to stage 3 chronic kidney disease (H*01/17/2020 Thrombocytopenia (HCC) [D69.6] 01/17/2020 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*07/17/2021 PVD (peripheral vascular disease) with claudica*07/29/2023 Encounter Status:Closed by Francois NGUYEN on 08/23/24 Normal [facility] CNPN Telephone (PHAMTE) BESSY VALVERDE ([id number]) 1945 M Date Time Provider Department 08/23/24 JONATHAN HAWKINS PHARIE During your visit today, we recorded the following information about you: Jonathan Hawkins [facility] 08/23/2024 8:08 AM Signed [facility] Anticoagulation Episode Summary Anticoagulation Care Providers Provider Role Specialty Phone number George Mata MD [facility] Internal Medicine [phone] Bessy Hernandez Nicolle is a 78 year old year old male patient being evaluated today for a Telemanagement visit. Patient is currently on the following anticoagulant(s) Warfarin. Labs PT INR (no units) Date Value 11/19/2021 2.7 biotel 11/05/2021 2.5 10/22/2021 2.8 biotel INR Home CoaguChek (no units) Date Value 08/23/2024 1.7 08/16/2024 3.5 07/19/2024 3.0 Hemoglobin (g/dL) Date Value 01/25/2024 12.2 09/23/2021 13.8 Hematocrit (%) Date Value 01/25/2024 37.8 09/23/2021 44.4 Platelet Count (k/uL) Date Value 01/25/2024 125 09/23/2021 160 Creatinine (mg/dL) Date Value 01/25/2024 1.30 07/29/2023 1.35 01/23/2023 1.27 09/23/2021 1.18 09/02/2021 1.31 08/05/2021 1.68 Bilirubin, Total (mg/dL) Date Value 01/25/2024 0.9 08/22/2021 1.2 ALT (U/L) Date Value 01/25/2024 20 08/22/2021 36 AST (U/L) Date Value 01/25/2024 24 08/22/2021 45 CrCl cannot be calculated (Patient's most recent lab result is older than the maximum 180 days allowed.). ALLERGIES No Known Allergies Indication for Warfarin: Anticoagulation Episode Summary Current INR goal: 2.0-3.0 Assessment: INR result of 1.7 is SUBtherapeutic due to: taking lower dose while on prednisone last week Plan: Current Warfarin Dosing As of 08/23/2024 Full warfarin instructions: 08/23: 5 mg; Otherwise 5 mg every Mon, Fri; 2.5 mg all other days Called and spoke to patient/caregiver Advised patient to increase dose for 1 day only then resume weekly regimen Next home INR check scheduled on 08/30/2024 Patient verbalizes understanding of the plan. Patient advised to call the PAC with any medication changes, bleeding/bruising concerns, recent changes in vitamin k consumption, if any procedures are coming up, if they have been ill or in the hospital, and if they have missed any doses of warfarin. Jonathan Hawkins [facility] Clinical Pharmacist, Pharmacy Anticoagulation Clinic Pharmacy Anticoagulation Clinic Pager: [phone] Fregoso (Personnel Research Psychologist)Yin 08/23/2024 5:36 PM Signed PATIENT CALL Received call from Abimael with [employer] [facility] INR to report home meter result for patient. [facility] has already addressed this result (see below); nothing further needed at this time. Yin Fregoso CPhT (Gem Technician) Pharmacy Anticoagulation Clinic Jonathan Hawkins RPh 08/30/2024 10:58 AM Signed Patient was due to test INR today. Will continue to monitor for results. Follow up in one week if no results received. Patient's INR Goal range is - 2.0-3.0 PT INR (no units) Date Value 11/19/2021 2.7 biotel 11/05/2021 2.5 10/22/2021 2.8 biotel INR Home CoaguChek (no units) Date Value 08/23/2024 1.7 08/16/2024 3.5 07/19/2024 3.0 Patient is in titration phase - No Patient has dosing provided until next INR - Yes Patient is on an injectable anticoagulant - No Jonathan Hawkins [facility] Allergies As of Date: 08/23/2024 (No Known Allergies) Date Reviewed: 08/09/2024 Reviewed by: Daphney Obando LPN - Fully Assessed Reason for Visit: Anticoagulation Telephone Fu [[id number]] Cmt: Home INR result Prescriptions as of 08/30/2024 - atorvastatin (LIPITOR) 40 mg tablet Take 1 tablet by mouth once daily. - montelukast (SINGULAIR) 10 mg tablet Take 1 tablet by mouth daily at bedtime. For asthma and allergies. - fluticasone-salmeterol (ADVAIR DISKUS) 100-50 mcg/dose inhaler Inhale 1 Puff as instructed two times a day. Rinse mouth out after use with water. - pantoprazole DR (PROTONIX) 20 mg tablet Take 1 tablet by mouth daily before breakfast. Take on empty stomach, 1/2 hr before meal. - weefzilmg-pjspjh-phgvlo ne-scop () 16.2-0.1037 -0.0194 mg per tablet Take 1 tablet by mouth every 6 hours as needed. - warfarin (COUMADIN) 5 mg tablet 5 mg every Mon AND Fr ; 2.5 mg all other days - bumetanide (BUMEX) 1 mg tablet Take 1 tablet by mouth once daily. Or as directed for weight gain, fluid retention. - albuterol HFA (VENTOLIN HFA) 90 mcg/actuation inhaler USE 2 INHALATIONS 4 TIMES A DAY IF NEEDED - nitroglycerin sublingual (NITROSTAT) 0.4 mg SL tablet Dissolve 1 tablet under the tongue as needed. DISSOLVE ON TONGUE FOR CHEST PAIN. IF NO PAIN RELIEF, CALL 911 - ENTRESTO 24-26 mg tablet Take 1 tablet by mouth twice daily. - sotalol (BETAPACE) 80 mg tablet Take 2 tablets by mouth twice daily. - spironolactone (ALDACTONE) 25 mg ta (more content not included)... Normal [facility] BESSY VALVERDE ([id number]) 1945 M Date Time Provider Department 08/16/24 JONATHAN HAWKINS During your visit today, we recorded the following information about you: Jonathan Hawkins RPh 08/16/2024 8:50 AM Signed The patient was called to discuss recent INR test results. A voice message was left on patient's Home telephone voice mail. The patient was advised to call the Coumadin Clinic at [phone] and hold warfarin today. On prednisone 40 mg daily PT INR (no units) Date Value 11/19/2021 2.7 biotel 11/05/2021 2.5 10/22/2021 2.8 biotel INR Home CoaguChek (no units) Date Value 08/16/2024 3.5 07/19/2024 3.0 07/05/2024 2.8 Jonathan Hawkins, PharmD,CACP Yessy Walden PSS 08/16/2024 8:56 AM Signed Patient returned the call. Please call the patient at [phone] Jonathan Hawkins RPh 08/16/2024 9:20 AM Signed [facility] Anticoagulation [facility] Anticoagulation Episode Summary Anticoagulation Care Providers Provider Role Specialty Phone number MataGeorge morris MD Responsible Internal Medicine [phone] Bessy Valverde is a 78 year old year old male patient being evaluated today for a Telemanagement visit. Patient is currently on the following anticoagulant(s) Warfarin. Labs PT INR (no units) Date Value 11/19/2021 2.7 biotel 11/05/2021 2.5 10/22/2021 2.8 biotel INR Home CoaguChek (no units) Date Value 08/16/2024 3.5 07/19/2024 3.0 07/05/2024 2.8 Hemoglobin (g/dL) Date Value 01/25/2024 12.2 09/23/2021 13.8 Hematocrit (%) Date Value 01/25/2024 37.8 09/23/2021 44.4 Platelet Count (k/uL) Date Value 01/25/2024 125 09/23/2021 160 Creatinine (mg/dL) Date Value 01/25/2024 1.30 07/29/2023 1.35 01/23/2023 1.27 09/23/2021 1.18 09/02/2021 1.31 08/05/2021 1.68 Bilirubin, Total (mg/dL) Date Value 01/25/2024 0.9 08/22/2021 1.2 ALT (U/L) Date Value 01/25/2024 20 08/22/2021 36 AST (U/L) Date Value 01/25/2024 24 08/22/2021 45 CrCl cannot be calculated (Patient's most recent lab result is older than the maximum 180 days allowed.). ALLERGIES No Known Allergies Indication for Warfarin: Anticoagulation Episode Summary Current INR goal: 2.0-3.0 Assessment: INR result of 3.5 is SUPRAtherapeutic due to: NVD/fevers from Covid and decreased vit k Plan: Current Warfarin Dosing As of 08/16/2024 Full warfarin instructions: 08/16: Hold; 08/19: 2.5 mg; Otherwise 5 mg every Mon, Fri; 2.5 mg all other days Called and spoke to patient/caregiver Advised patient to hold 1 dose then decrease current regimen Next home INR check scheduled on 08/23/2024 Patient verbalizes understanding of the plan. Patient advised to call the PAC with any medication changes, bleeding/bruising concerns, recent changes in vitamin k consumption, if any procedures are coming up, if they have been ill or in the hospital, and if they have missed any doses of warfarin. Jonathan Hawkins [facility] Clinical Pharmacist, Pharmacy Anticoagulation Clinic Pharmacy Anticoagulation Clinic Pager: [phone]. Allergies As of Date: 08/16/2024 (No Known Allergies) Date Reviewed: 08/09/2024 Reviewed by: Daphney Obando LPN - Fully Assessed Reason for Visit: Anticoagulation Telephone Fu [148] Cmt: Home INR result Prescriptions as of 08/16/2024 - predniSONE (DELTASONE) 10 mg tablet Take 4 tablets by mouth once daily for 2 days, THEN 2 tablets once daily for 2 days, THEN 1 tablet once daily for 2 days. - atorvastatin (LIPITOR) 40 mg tablet Take 1 tablet by mouth once daily. - montelukast (SINGULAIR) 10 mg tablet Take 1 tablet by mouth daily at bedtime. For asthma and allergies. - fluticasone-salmeterol (ADVAIR DISKUS) 100-50 mcg/dose inhaler Inhale 1 Puff as instructed two times a day. Rinse mouth out after use with water. - pantoprazole DR (PROTONIX) 20 mg tablet Take 1 tablet by mouth daily before breakfast. Take on empty stomach, 1/2 hr before meal. - mxafarexp-cefvug-dyksaq ne-scop () 16.2-0.1037 -0.0194 mg per tablet Take 1 tablet by mouth every 6 hours as needed. - warfarin (COUMADIN) 5 mg tablet 5 mg every Mon AND Fr ; 2.5 mg all other days - bumetanide (BUMEX) 1 mg tablet Take 1 tablet by mouth once daily. Or as directed for weight gain, fluid retention. - albuterol HFA (VENTOLIN HFA) 90 mcg/actuation inhaler USE 2 INHALATIONS 4 TIMES A DAY IF NEEDED - nitroglycerin sublingual (NITROSTAT) 0.4 mg SL tablet Dissolve 1 tablet under the tongue as needed. DISSOLVE ON TONGUE FOR CHEST PAIN. IF NO PAIN RELIEF, CALL 911 [facility]26 mg tablet Take 1 tablet by mouth twice daily. - sotalol (BETAPACE) 80 mg tablet Take 2 tablets by mouth twice daily. - spironolactone (ALDACTONE) 25 mg tablet Take 25 mg by mouth once daily. - LOW-DOSE ASPIRIN ORAL Take 1 tablet by mouth once daily. - (more content not included)... Normal [facility] 08-15-2024 CNPN Telephone (INTMWS) BESSY VALVERDE ([id number]) 1945 M Date Time Provider Department 08/15/24 GEORGE MATA INTWS During your visit today, we recorded the following information about you: Galilea Plunkett MA 08/15/2024 10:33 AM Signed ----- Message from George Mata MD sent at 08/13/2024 8:13 PM EST ----- Pulmonary fibrosis, atelectasis, difficult to rule out pneumonia. Schedule follow up if he is not better. Also follow up with his customer resource specialist. Galilea Plunkett MA 08/15/2024 10:36 AM Signed Patient was notified and is feeling better. Patient will schedule with pulmonary office for follow up. Requesting prednisone taper for gout attack . If ok rx pended and will let patient know KHALIF Thomson Victor H, MD 08/15/2024 12:29 PM Signed The following approved medication requests have been transmitted electronically. Requested Prescriptions Signed Prescriptions Disp Refills predniSONE (DELTASONE) 10 mg tablet 14 tablet 0 Sig: Take 4 tablets by mouth once daily for 2 days, THEN 2 tablets once daily for 2 days, THEN 1 tablet once daily for 2 days. Authorizing Provider: GEORGE MATA MD Merillat, Elizabeth, MA 08/15/2024 12:49 PM Signed Patient notified via voicemail Galilea Plunkett MA Allergies As of Date: 08/15/2024 (No Known Allergies) Date Reviewed: 08/09/2024 Reviewed by: Daphney Obando LPN - Fully Assessed Reason for Visit: Results [95] Cmt: xray Visit Diagnosis:Acute gout of right foot, unspecified cause [M10.9] Order(s):predniSONE (DELTASONE) 10 mg tabletTake 4 tablets by mouth once daily for 2 days, THEN 2 tablets once daily for 2 days, THEN 1 tablet once daily for 2 days.Disp: 14 tabletRfl: 0 Prescriptions as of 08/15/2024 - predniSONE (DELTASONE) 10 mg tablet Take 4 tablets by mouth once daily for 2 days, THEN 2 tablets once daily for 2 days, THEN 1 tablet once daily for 2 days. - nirmatrelvir tablet 300 mg (150 mg x 2) and ritonavir tablet 100 mg in a dose pack (DezineforceD) Administer TWO pink nirmatrelvir 150 mg tablets and ONE white ritonavir 100 mg tablet for a total of three tablets twice daily. - atorvastatin (LIPITOR) 40 mg tablet Take 1 tablet by mouth once daily. - montelukast (SINGULAIR) 10 mg tablet Take 1 tablet by mouth daily at bedtime. For asthma and allergies. - fluticasone-salmeterol (ADVAIR DISKUS) 100-50 mcg/dose inhaler Inhale 1 Puff as instructed two times a day. Rinse mouth out after use with water. - pantoprazole DR (PROTONIX) 20 mg tablet Take 1 tablet by mouth daily before breakfast. Take on empty stomach, 1/2 hr before meal. - zkqlqmzca-ldtjsy-rmxkqn ne-scop () 16.2-0.1037 -0.0194 mg per tablet Take 1 tablet by mouth every 6 hours as needed. - warfarin (COUMADIN) 5 mg tablet 5 mg every Mon AND Fr ; 2.5 mg all other days - bumetanide (BUMEX) 1 mg tablet Take 1 tablet by mouth once daily. Or as directed for weight gain, fluid retention. - albuterol HFA (VENTOLIN HFA) 90 mcg/actuation inhaler USE 2 INHALATIONS 4 TIMES A DAY IF NEEDED - nitroglycerin sublingual (NITROSTAT) 0.4 mg SL tablet Dissolve 1 tablet under the tongue as needed. DISSOLVE ON TONGUE FOR CHEST PAIN. IF NO PAIN RELIEF, CALL 911 - ENTRESTO 24-26 mg tablet Take 1 tablet by mouth twice daily. - sotalol (BETAPACE) 80 mg tablet Take 2 tablets by mouth twice daily. - spironolactone (ALDACTONE) 25 mg tablet Take 25 mg by mouth once daily. - LOW-DOSE ASPIRIN ORAL Take 1 tablet by mouth once daily. - blood sugar diagnostic (BLOOD GLUCOSE TEST) test strip Test blood sugar(s) one times daily. 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]06/22/2007 01/27/2019 IRRITABLE COLON [K58.9] 06/22/2007 Asthma, moderate persistent, well-controlled [J*12/09/2008 Screen for colon cancer [Z12.11] 07/11/2010 12/03/2012 Colon polyp [K63.5] 07/26/2010 07/24/2022 Diverticulosis [K57.90] 07/26/2010 01/27/2019 Occult GI bleeding [R19.5] 08/13/2012 12/03/2012 Positive fecal occult blood test [R19.5] 08/23/2012 12/03/2012 Byers's esophagus [K22.70] 09/10/2012 08/10/2024 Interstitial lung disease (HCC) [J84.9] 03/25/2013 Anticoagulated on Coumadin ( home INR testing) *05/02/2013 11/30/2019 Status post mitral valve replacement [Z95.2] 06/17/2013 Status post implantation of automatic cardiover*06/17/2013 Ventricular tachycardia [I47.20] 06/17/2013 Permanent atrial fibrillation (HCC) [I48.21] 09/28/2019 Impaired fast (more content not included)... Normal [facility] CNOVon 08-09-2024 CNOV Office Visit (INTMWS ) BESSY VALVERDE ([id number]) 1945 M Date Time Provider Department 08/09/24 10:00 AM GEORGE MATA INTMWS During your visit today, we recorded the following information about you: Temperature Pulse Respiration Blood pressure 97.2 degrees 72/minute 24/minute 112/68 Weight Height 81.8 kg 1.717 m George Mata MD 08/10/2024 5:01 PM Signed This note was created using Spherical Systems. Subjective Patient presents with: Yearly Exam Bessy Valverde is a 78 year old male here with Monica He started with sore throat, non productive cough 3 days ago, after a prolonged wait in the ER for 's illness. Other symptoms are myalgias. No GI symptoms were noted. Tylenol was taken. His medications have not changed, and his conditions appeared to be stable. His main health issue at this time was worsening chronic low back pain. He's had several back injections by Dr. Rousseau which had little benefit, and he was told he was not a candidate for surgery. PT was ordered. He had not done his labs yet for this check up. He was not checking glucose regularly. He was not taking Jardiance due to GI side effects. requested referral to [facility] for chronic ankle pain right side, with remote injury. Dr. Arline Gant, cardiology. Dr. Cielo Delgado, pulmonary. Dr. Cielo Rousseau, pain management. Dr. Crowder, ophthalmology. Dr. Faizan Pierce, Vascular surgery. Review of Systems Constitutional: Positive for fatigue. Negative for activity change, chills, diaphoresis, fever and unexpected weight change. HENT: Positive for congestion and sore throat. Negative for ear pain, postnasal drip and rhinorrhea. Respiratory: Negative for chest tightness, shortness of breath and wheezing. Cardiovascular: Positive for leg swelling. Negative for chest pain and palpitations. Gastrointestinal: Negative for abdominal pain, nausea and vomiting. Genitourinary: Negative for difficulty urinating. Musculoskeletal: Positive for back pain and myalgias. Neurological: Negative for dizziness and headaches. Psychiatric/Behavioral: Negative. ACTIVE PROBLEM LIST Coronary Atherosclerosis Pure Hypercholesterolemia Essential Hypertension Irritable Bowel Syndrome Asthma, Moderate Persistent, Well-Controlled Byers's Esophagus Interstitial Lung Disease (Hcc) Status Post Mitral Valve Replacement Status Post Implantation of Automatic Cardioverter/Defibrilla tor (Aicd) Ventricular Tachycardia (Hcc) Permanent Atrial Fibrillation (Hcc) Controlled Type 2 Diabetes Mellitus With Stage 3 Chronic Kidney Disease, Without Long-Term Current Use of Insulin (Hcc) Aortic Valve Stenosis Chronic Systolic Heart Failure (Hcc) Mcc (Current) Use of Anticoagulants 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 Chronic Kidney Disease (Hcc) (Hcc) Thrombocytopenia (Hcc) 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 (Hcc) Pvd (Peripheral Vascular Disease) With Claudication (Hcc) PAST SURGICAL HISTORY Procedure Laterality Date AICD, DUAL CHAMBER 10/29/2015 dual lead AICD APPENDECTOMY 1993 [facility] INCL FLUOR GDNCE DX W/CELL WASHG SPX 02/04/2013 BRONCHOSCOPY CARDIAC CATH 12/16/2017 Alex CARDIAC CATH 12/14/2018 Right AND Left COLONOSCOPY AND POLYPECTOMY 04/03/2017 COLONOSCOPY SCREENING 05/06/2021 [facility] COLONOSCOPY W/BIOPSY SINGLE/MULTIPLE 07/26/2010 Diminutive polyp of sigmoid/diverticulosis COLONOSCOPY W/BIOPSY SINGLE/MULTIPLE 09/10/2012 CORONARY ARTERY BYP W/VEIN AND ARTERY GRAFT 4 VEIN 04/29/2007 CABG, quadruple grafts CORONARY ARTERY BYPASS GRAFT CORONARY STENT EA VESSEL 02/12/2018 [facility] RCA EGD 05/06/2021 [facility] EGD TRANSORAL BIOPSY SINGLE/MULTIPLE 09/10/2012 EGD W/ BIOPSY SNGL/MLTPL 04/03/2017 [facility] HEART VALVE REPLACEMENT IMPLANTABLE CARDIOVERTER DEFIBRILLATOR INSJ/RPLCMT PERM DFB W/TRNSVNS LDS 1/DUAL CHMBR 06/10/2013 AICD LEFT HEART CATH,PERCUTANEOUS 05/03/2012 Cardiac cath, L heart LEFT HEART CATH,PERCUTANEOUS 04/27/2013 Cardiac cath, L heart LEFT HEART CATH,PERCUTANEOUS 10/07/2015 LEFT HEART CATH,PERCUTANEOUS 07/25/2021 PAST SURGICAL HISTORY OF 09/17/2020 Right Cataract removed REPLACEMENT MITRAL VALVE W/CARDIOPULMONARY BYP 05/17/2013 Mitral valve replacement, IABP TRANSCATH STENT INIT VESSEL,PERCUT 1996 3 PTCAs and stents. 1995 AND 1996 TRANSCATH STENT INIT VESSEL,PERCUT 05/02/2009 Transcath stent init vessel percut FAMILY HISTORY Problem Relation Age of Onset Heart Mother of CHF. Diabetes Mother Breast Cancer Mother Heart Father of CT age 85. CABG 13 yrs. prior Heart Sister of CHF age 55, rheumatic heart disease Colon Polyps Sister Ischemic Heart Disease Sister Heart Sister Heart Brother valvular heart disease C (more content not included)... Normal [facility] COVID AND INFLUENZA A/B AND RSV PCR, ROUTINEon 08-09-2024 SARS-CoV-2 (COVID-19) RNA MARILIA+probe Ql (Unsp spec) SARS-COV-2 (AGENT OF COVID-19) RNA: Detected INFLUENZA A RNA: Not detected INFLUENZA B RNA: Not detected RESPIRATORY SYNCYTIAL VIRUS (RSV) RNA: Not detected Abnormal [facility] Comment on above: Performed By: #### C VFLRS ####[facility] LABCLIA [id number] [place] [address] [place] COVID & INFLUENZA A/B & RSV PCR, ROUTINEOrdered By: Violetta Newberry on 08-09-2024 FLUAV RNA MARILIA+probe Ql (Unsp spec) Not detected Not Detected [facility] FLUBV RNA MARILIA+probe Ql (Unsp spec) Not detected Not Detected [facility] Interpretation and review of laboratory results Abnormal [facility] RSV A RNA MARILIA+probe Ql (Unsp spec) Not detected Not Detected [facility] SARS-CoV-2 (COVID-19) RNA MARILIA+probe Ql (Unsp spec) Detected Abnormal See comment [facility] Reference Range (the expected result in uninfected individuals): Not detected [facility] XR CHEST 2V FRONTAL/LATon XR CHEST 2V FRONTAL/LAT * * *Final Report* * * DATE OF EXAM: Aug 09 2024 11:45AM WOX [id number] - XR CHEST 2V FRONTAL/LAT / PROCEDURE REASON: Acute cough * * * * Physician Interpretation * * * * EXAMINATION: CHEST RADIOGRAPH (2 VIEW FRONTAL and LATERAL) CLINICAL HISTORY: Acute cough MQ: [id number] EXAM DATE/TIME: 08/09/2024 11:45 AM COMPARISON: 03/19/2021 RESULT: Lines, tubes, and devices: Mediastinal wires are seen. Left cardiac pacer and leads is noted. Lungs and pleura: Atelectasis or fibrosis at the lung bases is seen. Increased at the right base, likely superimposed infiltrate. No pneumothorax. Upper lungs are clear. Pleural thickening on the right is stable. Cardiomediastinal silhouette: Stable cardiomediastinal silhouette. Bones and soft tissues: Unremarkable. IMPRESSION: Atelectasis or fibrosis at the lung bases is seen. Increased at the right base, likely superimposed infiltrate. Pleural thickening on the right is stable. Follow-up chest x-ray. Suspect underlying bronchiectasis. CT scans may be helpful for further evaluation Tub Washer: LANA Transcribe Date/Time: Aug 11 2024 8:51A Dictated by : ALEXI MIR MD This examination was interpreted and the report reviewed and electronically signed by: ALEXI MIR MD on Aug 11 2024 8:55AM EST [id number] Normal [facility]ero 07-19-2024 CNPN Telephone (PHAMTE) BESSY VALVERDE ([id number]) 1945 M Date Time Provider Department 07/19/24 JONATHAN HAWKNIS PHAGARRETT During your visit today, we recorded the following information about you: Jonathan Hawkins [facility] 07/19/2024 10:12 AM Signed [facility] Anticoagulation [facility] Anticoagulation Episode Summary Anticoagulation Care Providers Provider Role Specialty Phone number George Mata MD [facility] Internal Medicine [phone] Bessy Hernandez Nicolle is a 78 year old year old male patient being evaluated today for a Telemanagement visit. Patient is currently on the following anticoagulant(s) Warfarin. Labs PT INR (no units) Date Value 11/19/2021 2.7 biotel 11/05/2021 2.5 10/22/2021 2.8 biotel INR Home CoaguChek (no units) Date Value 07/19/2024 3.0 07/05/2024 2.8 06/21/2024 3.3 Hemoglobin (g/dL) Date Value 01/25/2024 12.2 09/23/2021 13.8 Hematocrit (%) Date Value 01/25/2024 37.8 09/23/2021 44.4 Platelet Count (k/uL) Date Value 01/25/2024 125 09/23/2021 160 Creatinine (mg/dL) Date Value 01/25/2024 1.30 07/29/2023 1.35 01/23/2023 1.27 09/23/2021 1.18 09/02/2021 1.31 08/05/2021 1.68 Bilirubin, Total (mg/dL) Date Value 01/25/2024 0.9 08/22/2021 1.2 ALT (U/L) Date Value 01/25/2024 20 08/22/2021 36 AST (U/L) Date Value 01/25/2024 24 08/22/2021 45 CrCl cannot be calculated (Unknown ideal weight.). ALLERGIES No Known Allergies Indication for Warfarin: Anticoagulation Episode Summary Current INR goal: 2.0-3.0 Assessment: INR result of 3.0 is therapeutic Plan: Current Warfarin Dosing As of 07/19/2024 Full warfarin instructions: 5 mg every Mon, Fri; 2.5 mg all other days Called and spoke to patient/caregiver Advised patient to continue current weekly dose as noted above Next home INR check scheduled on 08/16/2024 Patient verbalizes understanding of the plan. Patient advised to call the PAC with any medication changes, bleeding/bruising concerns, recent changes in vitamin k consumption, if any procedures are coming up, if they have been ill or in the hospital, and if they have missed any doses of warfarin. Jonathan Hawkins [facility] Clinical Pharmacist, Pharmacy Anticoagulation Clinic Pharmacy Anticoagulation Clinic Pager: [phone]. Allergies As of Date: 07/19/2024 (No Known Allergies) Date Reviewed: 03/09/2024 Reviewed by: Daphney Obando LPN - Fully Assessed Reason for Visit: Anticoagulation Telephone Fu [148] Cmt: Home INR result Prescriptions as of 07/19/2024 - albuterol HFA (VENTOLIN HFA) 90 mcg/actuation inhaler USE 2 INHALATIONS 4 TIMES A DAY IF NEEDED - empagliflozin (JARDIANCE) 10 mg tablet Take 1 tablet by mouth once daily. Take 1 tablet once daily in the morning - montelukast (SINGULAIR) 10 mg tablet Take 1 tablet by mouth daily at bedtime. For asthma and allergies. - warfarin (COUMADIN) 5 mg tablet 5 mg every Thu AND Fr ; 2.5 mg all other days - fluticasone-salmeterol (ADVAIR DISKUS) 100-50 mcg/dose inhaler Inhale 1 Puff as instructed two times a day. Rinse mouth out after use with water. - atorvastatin (LIPITOR) 40 mg tablet Take 1 tablet by mouth once daily. - pantoprazole DR (PROTONIX) 20 mg tablet Take 1 tablet by mouth daily before breakfast. Take on empty stomach, 1/2 hr before meal. - fiyvfjbwl-enqbcn-iertzi ne-scop () 16.2-0.1037 -0.0194 mg per tablet Take 1 tablet by mouth every 6 hours as needed. - nitroglycerin sublingual (NITROSTAT) 0.4 mg SL tablet Dissolve 1 tablet under the tongue as needed. DISSOLVE ON TONGUE FOR CHEST PAIN. IF NO PAIN RELIEF, CALL 911 - bumetanide (BUMEX) 1 mg tablet One tablet every other day; OR daily, depending on weight gain, fluid retention. - ENTRESTO 24-26 mg tablet Take 1 tablet by mouth twice daily. - sotalol (BETAPACE) 80 mg tablet Take 2 tablets by mouth twice daily. - spironolactone (ALDACTONE) 25 mg tablet Take 25 mg by mouth once daily. - LOW-DOSE ASPIRIN ORAL Take 1 tablet by mouth once daily. - blood sugar diagnostic (BLOOD GLUCOSE TEST) test strip Test blood sugar(s) one times daily. Dx: Type 2 DM - Controlled E11.9 Insulin: No - Blood-Glucose Meter monitoring kit Glucose Meter of Choice - Kit - Dx: Type 2 DM - Controlled E11.9 Problem List As Of Date 07/19/2024 Noted Resolved Coronary atherosclerosis [I25.10] 05/19/2005 PURE HYPERCHOLESTEROLEM [E78.00] 05/19/2005 Esophageal reflux [K21.9] 05/19/2005 01/06/2018 Essential hypertension [I10] 05/19/2005 Postsurgical aortocoronary bypass status [Z95.1]06/22/2007 01/27/2019 IRRITABLE COLON [K58.9] 06/22/2007 Asthma, moderate persistent, well-controlled [J*12/09/2008 Screen for colon cancer [Z12.11] 07/11/2010 12/03/2012 Colon polyp [K63.5] 07/26/2010 07/24/2022 Diverticulosis [K57.90] 07/26/2010 01/27/2019 Occult GI bleeding [R19.5 (more content not included)... Normal [facility] 07-05-2024 CNPN Telephone (PHAMTE) VALVERDEBESSY Mary ([id number]) 1945 M Date Time Provider Department 07/05/24 LIAN COULTER During your visit today, we recorded the following information about you: Lian Coulter, [facility] 07/05/2024 8:46 AM Signed [facility] Anticoagulation Episode Summary Anticoagulation Care Providers Provider Role Specialty Phone number George Mata MD [facility] Internal Medicine [phone] Bessy Valverde is a 78 year old year old male patient being evaluated today for a Telemanagement visit. Patient is currently on the following anticoagulant(s) Warfarin. Labs PT INR (no units) Date Value 11/19/2021 2.7 biotel 11/05/2021 2.5 10/22/2021 2.8 biotel INR Home CoaguChek (no units) Date Value 07/05/2024 2.8 06/21/2024 3.3 06/07/2024 2.7 Hemoglobin (g/dL) Date Value 01/25/2024 12.2 09/23/2021 13.8 Hematocrit (%) Date Value 01/25/2024 37.8 09/23/2021 44.4 Platelet Count (k/uL) Date Value 01/25/2024 125 09/23/2021 160 Creatinine (mg/dL) Date Value 01/25/2024 1.30 07/29/2023 1.35 01/23/2023 1.27 09/23/2021 1.18 09/02/2021 1.31 08/05/2021 1.68 Bilirubin, Total (mg/dL) Date Value 01/25/2024 0.9 08/22/2021 1.2 ALT (U/L) Date Value 01/25/2024 20 08/22/2021 36 AST (U/L) Date Value 01/25/2024 24 08/22/2021 45 CrCl cannot be calculated (Unknown ideal weight.). 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 Permanent atrial fibrillation (hcc) Anticoagulation Episode Summary Current INR goal: 2.0-3.0 Assessment: INR result of 2.8 is therapeutic Plan: Current Warfarin Dosing As of 07/05/2024 Full warfarin instructions: 5 mg every Mon, Fri; 2.5 mg all other days Called and spoke to patient/caregiver Advised patient to continue current weekly dose as noted above Next home INR check scheduled on 07/19/2024 Patient verbalizes understanding of the plan. Patient denies need for refills. Patient advised to call the PAC with any medication changes, bleeding/bruising concerns, recent changes in vitamin k consumption, if any procedures are coming up, if they have been ill or in the hospital, and if they have missed any doses of warfarin. Lian Coulter [facility] Clinical Pharmacist, Pharmacy Anticoagulation Clinic Pharmacy Anticoagulation Clinic Pager: [phone]. Jonathan Hawkins [facility] 07/19/2024 8:25 AM Signed Patient was due to test INR today. Will continue to monitor for results. Follow up in one week if no results received. 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 Take 1 tablet once daily in the morning - montelukast (SINGULAIR) 10 mg tablet Take 1 tablet by mouth daily at bedtime. For asthma and allergies. - warfarin (COUMADIN) 5 mg tablet 5 mg every Thu AND Fr ; 2.5 mg all other days - fluticasone-salmeterol (ADVAIR DISKUS) 100-50 mcg/dose inhaler Inhale 1 Puff as instructed two times a day. Rinse mouth out after use with water. - atorvastatin (LIPITOR) 40 mg tablet Take 1 tablet by mouth once daily. - pantoprazole DR (PROTONIX) 20 mg tablet Take 1 tablet by mouth daily before breakfast. Take on empty stomach, 1/2 hr before meal. - fcbjifdfn-rsrqns-bimxql ne-scop () 16.2-0.1037 -0.0194 mg per tablet Take 1 tablet by mouth every 6 hours as needed. - nitroglycerin sublingual (NITROSTAT) 0.4 mg SL tablet Dissolve 1 tablet under the tongue as needed. DISSOLVE ON TONGUE FOR CHEST PAIN. IF NO PAIN RELIEF, CALL 911 - bumetanide (BUMEX) 1 mg tablet One tablet every other day; OR daily, depending on weight gain, fluid retention. - ENTRESTO 24-26 mg tablet Take 1 tablet by mouth twice daily. - sotalol (BETAPACE) 80 mg tablet Take 2 tablets by mouth twice daily. - spironolactone (ALDACTONE) 25 mg tablet Take 25 mg by mouth once daily. - LOW-DOSE ASPIRIN ORAL Take 1 tablet by mouth once daily. - blood sugar diagnostic (BLOOD GLUCOSE TEST) test strip Test blood sugar(s) one times daily. Dx: Type 2 DM - Controlled E11.9 Insulin: No - Blood-Glucose Meter monitoring kit Glucose Meter of Choice - Kit - Dx: Type 2 DM - Controlled E11.9 Problem List As Of Date 07/05/2024 Noted Resolved Coronary atherosclerosis [I25.10] 05/19/2005 PURE HYPERCHOLESTER (more content not included)... Normal [facility] CNPNon 06-21-2024 CNPN Telephone (PHAMTE) BESSY VALVERDE ([id number]) 1945 M Date Time Provider Department 06/21/24 JONATHAN HAWKINS During your visit today, we recorded the following information about you: Jonathan Hawkins [facility] 06/21/2024 8:33 AM Signed [facility] Anticoagulation Episode Summary Anticoagulation Care Providers Provider Role Specialty Phone number George Mata MD [facility] Internal Medicine [phone] Bessy Hernandez Valverde is a 78 year old year old male patient being evaluated today for a Telemanagement visit. Patient is currently on the following anticoagulant(s) Warfarin. Labs PT INR (no units) Date Value 11/19/2021 2.7 biotel 11/05/2021 2.5 10/22/2021 2.8 biotel INR Home CoaguChek (no units) Date Value 06/21/2024 3.3 06/07/2024 2.7 05/24/2024 3.0 Hemoglobin (g/dL) Date Value 01/25/2024 12.2 09/23/2021 13.8 Hematocrit (%) Date Value 01/25/2024 37.8 09/23/2021 44.4 Platelet Count (k/uL) Date Value 01/25/2024 125 09/23/2021 160 Creatinine (mg/dL) Date Value 01/25/2024 1.30 07/29/2023 1.35 01/23/2023 1.27 09/23/2021 1.18 09/02/2021 1.31 08/05/2021 1.68 Bilirubin, Total (mg/dL) Date Value 01/25/2024 0.9 08/22/2021 1.2 ALT (U/L) Date Value 01/25/2024 20 08/22/2021 36 AST (U/L) Date Value 01/25/2024 24 08/22/2021 45 CrCl cannot be calculated (Unknown ideal weight.). ALLERGIES No Known Allergies Indication for Warfarin: Anticoagulation Episode Summary Current INR goal: 2.0-3.0 Assessment: INR result of 3.3 is SUPRAtherapeutic due to: No obvious cause (patient denies medication change, grapefruit/cranberry/po megranate/memo ingestion, OTC medication use, change in herbal/nutritional supplement, accidental overdosage, change in warfarin tablet shape or color, change in vit K consumption, recent illness (NVD, fever), any changes to general health, changes in tobacco use, or EtOH consumption) Plan: Current Warfarin Dosing As of 06/21/2024 Full warfarin instructions: 06/21: 1.25 mg; Otherwise 5 mg every Mon, Fri; 2.5 mg all other days Called and spoke to patient/caregiver Advised patient to decrease dose for 1 day only then resume weekly regimen Next home INR check scheduled on 07/05/2024 Patient verbalizes understanding of the plan. Patient advised to call the PAC with any medication changes, bleeding/bruising concerns, recent changes in vitamin k consumption, if any procedures are coming up, if they have been ill or in the hospital, and if they have missed any doses of warfarin. Jonathan Hawkins [facility] Clinical Pharmacist, Pharmacy Anticoagulation Clinic Pharmacy Anticoagulation Clinic Pager: [phone]. Allergies As of Date: 06/21/2024 (No Known Allergies) Date Reviewed: 03/09/2024 Reviewed by: Daphney Obando LPN - Fully Assessed Reason for Visit: Anticoagulation Telephone Fu [148] Cmt: Home INR result Prescriptions as of 06/21/2024 - albuterol HFA (VENTOLIN HFA) 90 mcg/actuation inhaler USE 2 INHALATIONS 4 TIMES A DAY IF NEEDED - empagliflozin (JARDIANCE) 10 mg tablet Take 1 tablet by mouth once daily. Take 1 tablet once daily in the morning - montelukast (SINGULAIR) 10 mg tablet Take 1 tablet by mouth daily at bedtime. For asthma and allergies. - warfarin (COUMADIN) 5 mg tablet 5 mg every Mon AND Fr ; 2.5 mg all other days - fluticasone-salmeterol (ADVAIR DISKUS) 100-50 mcg/dose inhaler Inhale 1 Puff as instructed two times a day. Rinse mouth out after use with water. - atorvastatin (LIPITOR) 40 mg tablet Take 1 tablet by mouth once daily. - pantoprazole DR (PROTONIX) 20 mg tablet Take 1 tablet by mouth daily before breakfast. Take on empty stomach, 1/2 hr before meal. - gfvaseymw-wrotoz-htkktg ne-scop () 16.2-0.1037 -0.0194 mg per tablet Take 1 tablet by mouth every 6 hours as needed. - nitroglycerin sublingual (NITROSTAT) 0.4 mg SL tablet Dissolve 1 tablet under the tongue as needed. DISSOLVE ON TONGUE FOR CHEST PAIN. IF NO PAIN RELIEF, CALL 911 - bumetanide (BUMEX) 1 mg tablet One tablet every other day; OR daily, depending on weight gain, fluid retention. - ENTRESTO 24-26 mg tablet Take 1 tablet by mouth twice daily. - sotalol (BETAPACE) 80 mg tablet Take 2 tablets by mouth twice daily. - spironolactone (ALDACTONE) 25 mg tablet Take 25 mg by mouth once daily. - LOW-DOSE ASPIRIN ORAL Take 1 tablet by mouth once daily. - blood sugar diagnostic (BLOOD GLUCOSE TEST) test strip Test blood sugar(s) one times daily. Dx: Type 2 DM - Controlled E11.9 Insulin: No - Blood-Glucose Meter monitoring kit Glucose Meter of Choice - Kit - Dx: Type 2 DM - Controlled E11.9 Problem List As Of Date 06/21/2024 Noted Resolved Coronary atherosclerosis [I25.10] 05/19/2005 PURE HYPERCHOLESTEROLEM [E78.00] 05/19/2005 Esophageal (more content not included)... Normal [facility] 06-07-[address] [facility] [place] [place] BESSY VALVERDE ([id number]) 1945 M Date Time Provider Department 06/07/24 JONATHAN HAWKINS During your visit today, we recorded the following information about you: Jonathan Hawkins [facility] 06/07/2024 8:40 AM Signed [facility] Anticoagulation Episode Summary Anticoagulation Care Providers Provider Role Specialty Phone number George Mata MD [facility] Internal Medicine [phone] Bessy Valverde is a 78 year old year old male patient being evaluated today for a Telemanagement visit. Patient is currently on the following anticoagulant(s) Warfarin. Labs PT INR (no units) Date Value 11/19/2021 2.7 biotel 11/05/2021 2.5 10/22/2021 2.8 biotel INR Home CoaguChek (no units) Date Value 06/07/2024 2.7 05/24/2024 3.0 05/10/2024 2.9 Hemoglobin (g/dL) Date Value 01/25/2024 12.2 09/23/2021 13.8 Hematocrit (%) Date Value 01/25/2024 37.8 09/23/2021 44.4 Platelet Count (k/uL) Date Value 01/25/2024 125 09/23/2021 160 Creatinine (mg/dL) Date Value 01/25/2024 1.30 07/29/2023 1.35 01/23/2023 1.27 09/23/2021 1.18 09/02/2021 1.31 08/05/2021 1.68 Bilirubin, Total (mg/dL) Date Value 01/25/2024 0.9 08/22/2021 1.2 ALT (U/L) Date Value 01/25/2024 20 08/22/2021 36 AST (U/L) Date Value 01/25/2024 24 08/22/2021 45 CrCl cannot be calculated (Unknown ideal weight.). ALLERGIES No Known Allergies Indication for Warfarin: Anticoagulation Episode Summary Current INR goal: 2.0-3.0 Assessment: INR result of 2.7 is therapeutic Plan: Current Warfarin Dosing As of 06/07/2024 Full warfarin instructions: 5 mg every Mon, Fri; 2.5 mg all other days Called and spoke to patient/caregiver Advised patient to continue current weekly dose as noted above Next home INR check scheduled on 06/21/2024 Patient verbalizes understanding of the plan. Patient advised to call the PAC with any medication changes, bleeding/bruising concerns, recent changes in vitamin k consumption, if any procedures are coming up, if they have been ill or in the hospital, and if they have missed any doses of warfarin. Jonathan Hawkins [facility] Clinical Pharmacist, Pharmacy Anticoagulation Clinic Pharmacy Anticoagulation Clinic Pager: [phone]. Allergies As of Date: 06/07/2024 (No Known Allergies) Date Reviewed: 03/09/2024 Reviewed by: Daphney Obando LPN - Fully Assessed Reason for Visit: Anticoagulation Telephone Fu [148] Cmt: Home INR result Prescriptions as of 06/07/2024 - albuterol HFA (VENTOLIN HFA) 90 mcg/actuation inhaler USE 2 INHALATIONS 4 TIMES A DAY IF NEEDED - empagliflozin (JARDIANCE) 10 mg tablet Take 1 tablet by mouth once daily. Take 1 tablet once daily in the morning - montelukast (SINGULAIR) 10 mg tablet Take 1 tablet by mouth daily at bedtime. For asthma and allergies. - warfarin (COUMADIN) 5 mg tablet 5 mg every Mon AND Fr ; 2.5 mg all other days - fluticasone-salmeterol (ADVAIR DISKUS) 100-50 mcg/dose inhaler Inhale 1 Puff as instructed two times a day. Rinse mouth out after use with water. - atorvastatin (LIPITOR) 40 mg tablet Take 1 tablet by mouth once daily. - pantoprazole DR (PROTONIX) 20 mg tablet Take 1 tablet by mouth daily before breakfast. Take on empty stomach, 1/2 hr before meal. - zbbfkatdt-kavctg-cvugtj ne-scop () 16.2-0.1037 -0.0194 mg per tablet Take 1 tablet by mouth every 6 hours as needed. - nitroglycerin sublingual (NITROSTAT) 0.4 mg SL tablet Dissolve 1 tablet under the tongue as needed. DISSOLVE ON TONGUE FOR CHEST PAIN. IF NO PAIN RELIEF, CALL 911 - bumetanide (BUMEX) 1 mg tablet One tablet every other day; OR daily, depending on weight gain, fluid retention. - ENTRESTO 24-26 mg tablet Take 1 tablet by mouth twice daily. - sotalol (BETAPACE) 80 mg tablet Take 2 tablets by mouth twice daily. - spironolactone (ALDACTONE) 25 mg tablet Take 25 mg by mouth once daily. - LOW-DOSE ASPIRIN ORAL Take 1 tablet by mouth once daily. - blood sugar diagnostic (BLOOD GLUCOSE TEST) test strip Test blood sugar(s) one times daily. 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 (more content not included)... Normal [facility] 05-24-2024 CNPN Telephone ([employer]) BESSY VALVERDE ([id number]) 1945 M Date Time Provider Department 05/24/24 JONATHAN HAWKINS During your visit today, we recorded the following information about you: Jonathan Hawkins [facility] 05/24/2024 8:04 AM Signed [facility] Anticoagulation Episode Summary Anticoagulation Care Providers Provider Role Specialty Phone number MataGeorge gerber MD [facility] Internal Medicine [phone] Bessy Valverde is a 78 year old year old male patient being evaluated today for a Telemanagement visit. Patient is currently on the following anticoagulant(s) Warfarin. Labs PT INR (no units) Date Value 11/19/2021 2.7 biotel 11/05/2021 2.5 10/22/2021 2.8 biotel INR Home CoaguChek (no units) Date Value 05/24/2024 3.0 05/10/2024 2.9 04/26/2024 3.8 Hemoglobin (g/dL) Date Value 01/25/2024 12.2 09/23/2021 13.8 Hematocrit (%) Date Value 01/25/2024 37.8 09/23/2021 44.4 Platelet Count (k/uL) Date Value 01/25/2024 125 09/23/2021 160 Creatinine (mg/dL) Date Value 01/25/2024 1.30 07/29/2023 1.35 01/23/2023 1.27 09/23/2021 1.18 09/02/2021 1.31 08/05/2021 1.68 Bilirubin, Total (mg/dL) Date Value 01/25/2024 0.9 08/22/2021 1.2 ALT (U/L) Date Value 01/25/2024 20 08/22/2021 36 AST (U/L) Date Value 01/25/2024 24 08/22/2021 45 CrCl cannot be calculated (Unknown ideal weight.). ALLERGIES No Known Allergies Indication for Warfarin: Anticoagulation Episode Summary Current INR goal: 2.0-3.0 Assessment: INR result of 3.0 is therapeutic Plan: Current Warfarin Dosing As of 05/24/2024 Full warfarin instructions: 5 mg every Mon, Fri; 2.5 mg all other days Called and spoke to patient/caregiver Advised patient to continue current weekly dose as noted above Next home INR check scheduled on 06/07/2024 Patient verbalizes understanding of the plan. Patient advised to call the PAC with any medication changes, bleeding/bruising concerns, recent changes in vitamin k consumption, if any procedures are coming up, if they have been ill or in the hospital, and if they have missed any doses of warfarin. Jonathan Hawkins [facility] Clinical Pharmacist, Pharmacy Anticoagulation Clinic Pharmacy Anticoagulation Clinic Pager: [phone]. Allergies As of Date: 05/24/2024 (No Known Allergies) Date Reviewed: 03/09/2024 Reviewed by: Daphney Obando LPN - Fully Assessed Reason for Visit: Anticoagulation Telephone Fu [148] Cmt: Home INR result Prescriptions as of 05/24/2024 - albuterol HFA (VENTOLIN HFA) 90 mcg/actuation inhaler USE 2 INHALATIONS 4 TIMES A DAY IF NEEDED - empagliflozin (JARDIANCE) 10 mg tablet Take 1 tablet by mouth once daily. Take 1 tablet once daily in the morning - montelukast (SINGULAIR) 10 mg tablet Take 1 tablet by mouth daily at bedtime. For asthma and allergies. - warfarin (COUMADIN) 5 mg tablet 5 mg every Thu AND Fr ; 2.5 mg all other days - fluticasone-salmeterol (ADVAIR DISKUS) 100-50 mcg/dose inhaler Inhale 1 Puff as instructed two times a day. Rinse mouth out after use with water. - atorvastatin (LIPITOR) 40 mg tablet Take 1 tablet by mouth once daily. - pantoprazole DR (PROTONIX) 20 mg tablet Take 1 tablet by mouth daily before breakfast. Take on empty stomach, 1/2 hr before meal. - jviijybhv-durzly-jgvovj ne-scop () 16.2-0.1037 -0.0194 mg per tablet Take 1 tablet by mouth every 6 hours as needed. - nitroglycerin sublingual (NITROSTAT) 0.4 mg SL tablet Dissolve 1 tablet under the tongue as needed. DISSOLVE ON TONGUE FOR CHEST PAIN. IF NO PAIN RELIEF, CALL 911 - bumetanide (BUMEX) 1 mg tablet One tablet every other day; OR daily, depending on weight gain, fluid retention. - ENTRESTO 24-26 mg tablet Take 1 tablet by mouth twice daily. - sotalol (BETAPACE) 80 mg tablet Take 2 tablets by mouth twice daily. - spironolactone (ALDACTONE) 25 mg tablet Take 25 mg by mouth once daily. - LOW-DOSE ASPIRIN ORAL Take 1 tablet by mouth once daily. - blood sugar diagnostic (BLOOD GLUCOSE TEST) test strip Test blood sugar(s) one times daily. 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 (more content not included)... Normal [facility] 05-10-2024 [facility] Telephone (PHARAV) BESSY VALVERDE ([id number]) 1945 M Date Time Provider Department 05/10/24 ELLIOTT GLEASON During your visit today, we recorded the following information about you: Elliott Gleason RPh 05/10/2024 8:08 AM Signed [facility] Anticoagulation Episode Summary Anticoagulation Care Providers Provider Role Specialty Phone number George Mata MD [facility] Internal Medicine [phone] Bessy Valverde is a 78 year old year old male patient being evaluated today for a Telemanagement visit. Patient is currently on the following anticoagulant(s) Warfarin. Labs PT INR (no units) Date Value 11/19/2021 2.7 biotel 11/05/2021 2.5 10/22/2021 2.8 biotel INR Home CoaguChek (no units) Date Value 05/10/2024 2.9 04/26/2024 3.8 04/12/2024 2.7 Hemoglobin (g/dL) Date Value 01/25/2024 12.2 09/23/2021 13.8 Hematocrit (%) Date Value 01/25/2024 37.8 09/23/2021 44.4 Platelet Count (k/uL) Date Value 01/25/2024 125 09/23/2021 160 Creatinine (mg/dL) Date Value 01/25/2024 1.30 07/29/2023 1.35 01/23/2023 1.27 09/23/2021 1.18 09/02/2021 1.31 08/05/2021 1.68 Bilirubin, Total (mg/dL) Date Value 01/25/2024 0.9 08/22/2021 1.2 ALT (U/L) Date Value 01/25/2024 20 08/22/2021 36 AST (U/L) Date Value 01/25/2024 24 08/22/2021 45 CrCl cannot be calculated (Unknown ideal weight.). 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 Patient denies need for refills. Elliott Gleason [facility] Clinical Pharmacist, Pharmacy Anticoagulation Clinic Pharmacy Anticoagulation Clinic Pager: [phone]. 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 Take 1 tablet once daily in the morning - montelukast (SINGULAIR) 10 mg tablet Take 1 tablet by mouth daily at bedtime. For asthma and allergies. - warfarin (COUMADIN) 5 mg tablet 5 mg every Mon AND Fr ; 2.5 mg all other days - fluticasone-salmeterol (ADVAIR DISKUS) 100-50 mcg/dose inhaler Inhale 1 Puff as instructed two times a day. Rinse mouth out after use with water. - atorvastatin (LIPITOR) 40 mg tablet Take 1 tablet by mouth once daily. - pantoprazole DR (PROTONIX) 20 mg tablet Take 1 tablet by mouth daily before breakfast. Take on empty stomach, 1/2 hr before meal. - icemueadf-xvhnua-elriwf ne-scop () 16.2-0.1037 -0.0194 mg per tablet Take 1 tablet by mouth every 6 hours as needed. - nitroglycerin sublingual (NITROSTAT) 0.4 mg SL tablet Dissolve 1 tablet under the tongue as needed. DISSOLVE ON TONGUE FOR CHEST PAIN. IF NO PAIN RELIEF, CALL 911 - bumetanide (BUMEX) 1 mg tablet One tablet every other day; OR daily, depending on weight gain, fluid retention. - ENTRESTO 24-26 mg tablet Take 1 tablet by mouth twice daily. - sotalol (BETAPACE) 80 mg tablet Take 2 tablets by mouth twice daily. - spironolactone (ALDACTONE) 25 mg tablet Take 25 mg by mouth once daily. - LOW-DOSE ASPIRIN ORAL Take 1 tablet by mouth once daily. - blood sugar diagnostic (BLOOD GLUCOSE TEST) test strip Test blood sugar(s) one times daily. 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 [facility] CNPNon 04-26-2024 CNPN Telephone (PHAMTE) NICOLLEBESSY Mary ([id number]) 1945 M Date Time Provider Department 04/26/24 LIAN COULTER PHAGARRETT During your visit today, we recorded the following information about you: Lian Coulter, [facility] 04/26/2024 9:35 AM Signed [facility] Anticoagulation Episode Summary Anticoagulation Care Providers Provider Role Specialty Phone number George Mata MD [facility] Internal Medicine [phone] Bessy Hernandez Nicolle is a 78 year old year old male patient being evaluated today for a Telemanagement visit. Patient is currently on the following anticoagulant(s) Warfarin. Labs PT INR (no units) Date Value 11/19/2021 2.7 biotel 11/05/2021 2.5 10/22/2021 2.8 biotel INR Home CoaguChek (no units) Date Value 04/26/2024 3.8 04/12/2024 2.7 03/29/2024 2.5 Hemoglobin (g/dL) Date Value 01/25/2024 12.2 09/23/2021 13.8 Hematocrit (%) Date Value 01/25/2024 37.8 09/23/2021 44.4 Platelet Count (k/uL) Date Value 01/25/2024 125 09/23/2021 160 Creatinine (mg/dL) Date Value 01/25/2024 1.30 07/29/2023 1.35 01/23/2023 1.27 09/23/2021 1.18 09/02/2021 1.31 08/05/2021 1.68 Bilirubin, Total (mg/dL) Date Value 01/25/2024 0.9 08/22/2021 1.2 ALT (U/L) Date Value 01/25/2024 20 08/22/2021 36 AST (U/L) Date Value 01/25/2024 24 08/22/2021 45 CrCl cannot be calculated (Unknown ideal weight.). 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 Patient denies need for refills. Lian Coluter [facility] Clinical Pharmacist, Pharmacy Anticoagulation Clinic Pharmacy Anticoagulation Clinic Pager: [phone]. 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 Take 1 tablet once daily in the morning - montelukast (SINGULAIR) 10 mg tablet Take 1 tablet by mouth daily at bedtime. For asthma and allergies. - warfarin (COUMADIN) 5 mg tablet 5 mg every Mon AND Fr ; 2.5 mg all other days - fluticasone-salmeterol (ADVAIR DISKUS) 100-50 mcg/dose inhaler Inhale 1 Puff as instructed two times a day. Rinse mouth out after use with water. - atorvastatin (LIPITOR) 40 mg tablet Take 1 tablet by mouth once daily. - pantoprazole DR (PROTONIX) 20 mg tablet Take 1 tablet by mouth daily before breakfast. Take on empty stomach, 1/2 hr before meal. - fhhmzbedv-dwesqe-sjrrtz ne-scop () 16.2-0.1037 -0.0194 mg per tablet Take 1 tablet by mouth every 6 hours as needed. - nitroglycerin sublingual (NITROSTAT) 0.4 mg SL tablet Dissolve 1 tablet under the tongue as needed. DISSOLVE ON TONGUE FOR CHEST PAIN. IF NO PAIN RELIEF, CALL 911 - bumetanide (BUMEX) 1 mg tablet One tablet every other day; OR daily, depending on weight gain, fluid retention. - ENTRESTO 24-26 mg tablet Take 1 tablet by mouth twice daily. - sotalol (BETAPACE) 80 mg tablet Take 2 tablets by mouth twice daily. - spironolactone (ALDACTONE) 25 mg tablet Take 25 mg by mouth once daily. - LOW-DOSE ASPIRIN ORAL Take 1 tablet by mouth once daily. - blood sugar diagnostic (BLOOD GLUCOSE TEST) test strip Test blood sugar(s) one times daily. 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 [facility] CNPNon 04-12-2024 CNPN Telephone (PHAMTE) NICOLLEBESSY Mary ([id number]) 1945 M Date Time Provider Department 04/12/24 LIAN COULTER During your visit today, we recorded the following information about you: [facility] 8:58 AM Signed [facility] Anticoagulation Episode Summary Anticoagulation Care Providers Provider Role Specialty Phone number George Mata MD [facility] Internal Medicine [phone] Bessy Hernandez Valverde is a 78 year old year old male patient being evaluated today for a Telemanagement visit. Patient is currently on the following anticoagulant(s) Warfarin. Labs PT INR (no units) Date Value 11/19/2021 2.7 biotel 11/05/2021 2.5 10/22/2021 2.8 biotel INR Home CoaguChek (no units) Date Value 04/12/2024 2.7 03/29/2024 2.5 03/15/2024 2.7 Hemoglobin (g/dL) Date Value 01/25/2024 12.2 09/23/2021 13.8 Hematocrit (%) Date Value 01/25/2024 37.8 09/23/2021 44.4 Platelet Count (k/uL) Date Value 01/25/2024 125 09/23/2021 160 Creatinine (mg/dL) Date Value 01/25/2024 1.30 07/29/2023 1.35 01/23/2023 1.27 09/23/2021 1.18 09/02/2021 1.31 08/05/2021 1.68 Bilirubin, Total (mg/dL) Date Value 01/25/2024 0.9 08/22/2021 1.2 ALT (U/L) Date Value 01/25/2024 20 08/22/2021 36 AST (U/L) Date Value 01/25/2024 24 08/22/2021 45 CrCl cannot be calculated (Unknown ideal weight.). 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 Patient denies need for refills. Lian Coulter [facility] Clinical Pharmacist, Pharmacy Anticoagulation Clinic Pharmacy Anticoagulation Clinic Pager: [phone]. 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 Take 1 tablet once daily in the morning - montelukast (SINGULAIR) 10 mg tablet Take 1 tablet by mouth daily at bedtime. For asthma and allergies. - warfarin (COUMADIN) 5 mg tablet 5 mg every Mon AND Fr ; 2.5 mg all other days - fluticasone-salmeterol (ADVAIR DISKUS) 100-50 mcg/dose inhaler Inhale 1 Puff as instructed two times a day. Rinse mouth out after use with water. - atorvastatin (LIPITOR) 40 mg tablet Take 1 tablet by mouth once daily. - pantoprazole DR (PROTONIX) 20 mg tablet Take 1 tablet by mouth daily before breakfast. Take on empty stomach, 1/2 hr before meal. - bhvjnnkut-uhcujo-geqzff ne-scop () 16.2-0.1037 -0.0194 mg per tablet Take 1 tablet by mouth every 6 hours as needed. - nitroglycerin sublingual (NITROSTAT) 0.4 mg SL tablet Dissolve 1 tablet under the tongue as needed. DISSOLVE ON TONGUE FOR CHEST PAIN. IF NO PAIN RELIEF, CALL 911 - bumetanide (BUMEX) 1 mg tablet One tablet every other day; OR daily, depending on weight gain, fluid retention. - ENTRESTO 24-26 mg tablet Take 1 tablet by mouth twice daily. - sotalol (BETAPACE) 80 mg tablet Take 2 tablets by mouth twice daily. - spironolactone (ALDACTONE) 25 mg tablet Take 25 mg by mouth once daily. - LOW-DOSE ASPIRIN ORAL Take 1 tablet by mouth once daily. - blood sugar diagnostic (BLOOD GLUCOSE TEST) test strip Test blood sugar(s) one times daily. 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 [facility] CNPNon 03-29-2024 CNPN Telephone (PHAMTE) NICOLLEBESSY Mary ([id number]) 1945 M Date Time Provider Department 03/29/24 JONATHAN HAWKINS PHAGARRETT During your visit today, we recorded the following information about you: Jonathan Hawkins [facility] 03/29/2024 8:01 AM Signed [facility] Anticoagulation Episode Summary Anticoagulation Care Providers Provider Role Specialty Phone number George Mata MD [facility] Internal Medicine [phone] Bessy Hernandez Nicolle is a 78 year old year old male patient being evaluated today for a Telemanagement visit. Patient is currently on the following anticoagulant(s) Warfarin. Labs PT INR (no units) Date Value 11/19/2021 2.7 biotel 11/05/2021 2.5 10/22/2021 2.8 biotel INR Home CoaguChek (no units) Date Value 03/29/2024 2.5 03/15/2024 2.7 03/08/2024 1.9 Hemoglobin (g/dL) Date Value 01/25/2024 12.2 09/23/2021 13.8 Hematocrit (%) Date Value 01/25/2024 37.8 09/23/2021 44.4 Platelet Count (k/uL) Date Value 01/25/2024 125 09/23/2021 160 Creatinine (mg/dL) Date Value 01/25/2024 1.30 07/29/2023 1.35 01/23/2023 1.27 09/23/2021 1.18 09/02/2021 1.31 08/05/2021 1.68 Bilirubin, Total (mg/dL) Date Value 01/25/2024 0.9 08/22/2021 1.2 ALT (U/L) Date Value 01/25/2024 20 08/22/2021 36 AST (U/L) Date Value 01/25/2024 24 08/22/2021 45 CrCl cannot be calculated (Unknown ideal weight.). ALLERGIES No Known Allergies Indication for Warfarin: Anticoagulation Episode Summary Current INR goal: 2.0-3.0 Assessment: INR result of 2.5 is therapeutic Plan: Current Warfarin Dosing As of 03/29/2024 Full warfarin instructions: 5 mg every Mon, Fri; 2.5 mg all other days Left voice message Advised patient to continue current weekly dose as noted above Next home INR check scheduled on 04/12/2024 Jonathan Hawkins [facility] Clinical Pharmacist, Pharmacy Anticoagulation Clinic Pharmacy Anticoagulation Clinic Pager: [phone]. Allergies As of Date: 03/29/2024 (No Known Allergies) Date Reviewed: 03/09/2024 Reviewed by: Daphney Obando LPN - Fully Assessed Reason for Visit: Anticoagulation Telephone Fu [148] Cmt: Home INR result Prescriptions as of 03/29/2024 - albuterol HFA (VENTOLIN HFA) 90 mcg/actuation inhaler USE 2 INHALATIONS 4 TIMES A DAY IF NEEDED - empagliflozin (JARDIANCE) 10 mg tablet Take 1 tablet by mouth once daily. Take 1 tablet once daily in the morning - montelukast (SINGULAIR) 10 mg tablet Take 1 tablet by mouth daily at bedtime. For asthma and allergies. - warfarin (COUMADIN) 5 mg tablet 5 mg every Mon AND Fr ; 2.5 mg all other days - fluticasone-salmeterol (ADVAIR DISKUS) 100-50 mcg/dose inhaler Inhale 1 Puff as instructed two times a day. Rinse mouth out after use with water. - atorvastatin (LIPITOR) 40 mg tablet Take 1 tablet by mouth once daily. - pantoprazole DR (PROTONIX) 20 mg tablet Take 1 tablet by mouth daily before breakfast. Take on empty stomach, 1/2 hr before meal. - xqsipmiaq-ytljvn-syssbc ne-scop () 16.2-0.1037 -0.0194 mg per tablet Take 1 tablet by mouth every 6 hours as needed. - nitroglycerin sublingual (NITROSTAT) 0.4 mg SL tablet Dissolve 1 tablet under the tongue as needed. DISSOLVE ON TONGUE FOR CHEST PAIN. IF NO PAIN RELIEF, CALL 911 - bumetanide (BUMEX) 1 mg tablet One tablet every other day; OR daily, depending on weight gain, fluid retention. - ENTRESTO 24-26 mg tablet Take 1 tablet by mouth twice daily. - sotalol (BETAPACE) 80 mg tablet Take 2 tablets by mouth twice daily. - spironolactone (ALDACTONE) 25 mg tablet Take 25 mg by mouth once daily. - LOW-DOSE ASPIRIN ORAL Take 1 tablet by mouth once daily. - blood sugar diagnostic (BLOOD GLUCOSE TEST) test strip Test blood sugar(s) one times daily. Dx: Type 2 DM - Controlled E11.9 Insulin: No - Blood-Glucose Meter monitoring kit Glucose Meter of Choice - Kit - Dx: Type 2 DM - Controlled E11.9 Problem List As Of Date 03/29/2024 Noted Resolved Coronary atherosclerosis [I25.10] 05/19/2005 PURE HYPERCHOLESTEROLEM [E78.00] 05/19/2005 Esophageal reflux [K21.9] 05/19/2005 01/06/2018 Essential hypertension [I10] 05/19/2005 Postsurgical aortocoronary bypass status [Z95.1]06/22/2007 01/27/2019 IRRITABLE COLON [K58.9] 06/22/2007 Asthma, moderate persistent, well-controlled [J*12/09/2008 Screen for colon cancer [Z12.11] 07/11/2010 12/03/2012 Colon polyp [K63.5] 07/26/2010 07/24/2022 Diverticulosis [K57.90] 07/26/2010 01/27/2019 Occult GI bleeding [R19.5] 08/13/2012 12/03/2012 Positive fecal occult blood test [R19.5] 08/23/2012 12/03/2012 Byers's esophagus [K22.70] 09/10/2012 Interstitial lung disease (HCC) [J84.9] 03/25/2013 Anticoagulated on Coumadin ( home INR testing) *05/02/2013 11/30/2019 Status post mitral valve replacement [Z95.2] 06/17/2013 Status post imp (more content not included)... [facility] CNPNon 03-15-2024 CNPN Telephone (PHAMTE) BESSY VALVERDE ([id number]) 1945 M Date Time Provider Department 03/15/24 JORDYN GARCIA PHAMTE During your visit today, we recorded the following information about you: Jordyn Garcia [facility] 03/15/2024 8:01 AM Signed [facility] Anticoagulation Episode Summary Anticoagulation Care Providers Provider Role Specialty Phone number George Mata MD Responsible Internal Medicine [phone] Bessy Hernandez Nicolle is a 78 year old year old male patient being evaluated today for a Telemanagement visit. Patient is currently on the following anticoagulant(s) Warfarin. Labs PT INR (no units) Date Value 11/19/2021 2.7 biotel 11/05/2021 2.5 10/22/2021 2.8 biotel INR Home CoaguChek (no units) Date Value 03/15/2024 2.7 03/08/2024 1.9 03/01/2024 2.7 Hemoglobin (g/dL) Date Value 01/25/2024 12.2 09/23/2021 13.8 Hematocrit (%) Date Value 01/25/2024 37.8 09/23/2021 44.4 Platelet Count (k/uL) Date Value 01/25/2024 125 09/23/2021 160 Creatinine (mg/dL) Date Value 01/25/2024 1.30 07/29/2023 1.35 01/23/2023 1.27 09/23/2021 1.18 09/02/2021 1.31 08/05/2021 1.68 Bilirubin, Total (mg/dL) Date Value 01/25/2024 0.9 08/22/2021 1.2 ALT (U/L) Date Value 01/25/2024 20 08/22/2021 36 AST (U/L) Date Value 01/25/2024 24 08/22/2021 45 CrCl cannot be calculated (Unknown ideal weight.). ALLERGIES No Known Allergies Indication for Warfarin: Anticoagulation Episode Summary Current INR goal: 2.0-3.0 Assessment: INR result of 2.7 is therapeutic Plan: Current Warfarin Dosing As of 03/15/2024 Full warfarin instructions: 5 mg every Mon, Fri; 2.5 mg all other days Called and spoke to patient/caregiver Advised patient to continue current weekly dose as noted above Next home INR check scheduled on 03/28/2024 Patient verbalizes understanding of the plan. Patient denies need for refills. Jordyn Garcia RPh Clinical Pharmacist, Pharmacy Anticoagulation Clinic Pharmacy Anticoagulation Clinic Pager: [phone]. Jordyn Garcia RPh 03/28/2024 12:33 PM Signed Patient was due to test INR today. Will continue to monitor for results. Follow up in one week if no results received. Jordyn Garcia RPh Allergies As of Date: 03/15/2024 (No Known Allergies) Date Reviewed: 03/09/2024 Reviewed by: Daphney Obando LPN - Fully Assessed Reason for Visit: Anticoagulation Telephone Fu [148] Prescriptions as of 03/28/2024 - albuterol HFA (VENTOLIN HFA) 90 mcg/actuation inhaler USE 2 INHALATIONS 4 TIMES A DAY IF NEEDED - empagliflozin (JARDIANCE) 10 mg tablet Take 1 tablet by mouth once daily. Take 1 tablet once daily in the morning - montelukast (SINGULAIR) 10 mg tablet Take 1 tablet by mouth daily at bedtime. For asthma and allergies. - warfarin (COUMADIN) 5 mg tablet 5 mg every Mon AND Fr ; 2.5 mg all other days - fluticasone-salmeterol (ADVAIR DISKUS) 100-50 mcg/dose inhaler Inhale 1 Puff as instructed two times a day. Rinse mouth out after use with water. - atorvastatin (LIPITOR) 40 mg tablet Take 1 tablet by mouth once daily. - pantoprazole DR (PROTONIX) 20 mg tablet Take 1 tablet by mouth daily before breakfast. Take on empty stomach, 1/2 hr before meal. - zepzsfnam-zvmxwb-khuxdf ne-scop () 16.2-0.1037 -0.0194 mg per tablet Take 1 tablet by mouth every 6 hours as needed. - nitroglycerin sublingual (NITROSTAT) 0.4 mg SL tablet Dissolve 1 tablet under the tongue as needed. DISSOLVE ON TONGUE FOR CHEST PAIN. IF NO PAIN RELIEF, CALL 911 - bumetanide (BUMEX) 1 mg tablet One tablet every other day; OR daily, depending on weight gain, fluid retention. - ENTRESTO 24-26 mg tablet Take 1 tablet by mouth twice daily. - sotalol (BETAPACE) 80 mg tablet Take 2 tablets by mouth twice daily. - spironolactone (ALDACTONE) 25 mg tablet Take 25 mg by mouth once daily. - LOW-DOSE ASPIRIN ORAL Take 1 tablet by mouth once daily. - blood sugar diagnostic (BLOOD GLUCOSE TEST) test strip Test blood sugar(s) one times daily. Dx: Type 2 DM - Controlled E11.9 Insulin: No - Blood-Glucose Meter monitoring kit Glucose Meter of Choice - Kit - Dx: Type 2 DM - Controlled E11.9 Problem List As Of Date 03/15/2024 Noted Resolved Coronary atherosclerosis [I25.10] 05/19/2005 PURE HYPERCHOLESTEROLEM [E78.00] 05/19/2005 Esophageal reflux [K21.9] 05/19/2005 01/06/2018 Essential hypertension [I10] 05/19/2005 Postsurgical aortocoronary bypass status [Z95.1]06/22/2007 01/27/2019 IRRITABLE COLON [K58.9] 06/22/2007 Asthma, moderate persistent, well-controlled [J*12/09/2008 Screen for colon cancer [Z12.11] 07/11/2010 12/03/2012 Colon polyp [K63.5] 07/26/2010 07/24/2022 Diverticulosis [K57.90] 07/26/2010 01/27/2019 Occult GI bleeding [R19.5] 08/13/2012 12/03/2012 Positive fecal occult blood te (more content not included)... [facility] CNOVon 03-09-2024 CNOV Office Visit (INTMWS ) BESSY VALVERDE ([id number]) 1945 M Date Time Provider Department 03/09/24 2:40 PM GEORGE MATA INTMWS During your visit today, we recorded the following information about you: Temperature Pulse Respiration Blood pressure 97.1 degrees 64/minute 18/minute 104/62 Weight 80.7 kg George Mata MD 03/09/2024 3:38 PM Signed This note was created using [employer]. Subjective Bessy Valverde is a 78 year old male. He scraped his left arm 1.5 weeks ago, and sustained a skin tear. There was oozing so he applied a bandage over the weekend that has dried up and adhered. His asthma was worsening as it typically did when ragweed was up. Diabetes was increasing. 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 Review of Systems Constitutional: Negative for fatigue, fever and unexpected weight change. HENT: Positive for congestion and sneezing. Eyes: Positive for itching. Respiratory: Positive for cough, shortness of breath and wheezing. Cardiovascular: Positive for leg swelling. Negative for chest pain and palpitations. Gastrointestinal: Negative for constipation and diarrhea. Skin: Positive for wound. Neurological: Negative for dizziness and headaches. ACTIVE PROBLEM LIST Coronary Atherosclerosis Pure Hypercholesterolemia Essential Hypertension Irritable Bowel Syndrome Asthma, Moderate Persistent, Well-Controlled Byers's Esophagus Interstitial Lung Disease (Hcc) Status Post Mitral Valve Replacement Status Post Implantation of Automatic Cardioverter/Defibrilla tor (Aicd) Ventricular Tachycardia (Hcc) Permanent Atrial Fibrillation (Hcc) Controlled Type 2 Diabetes Mellitus With Stage 3 Chronic Kidney Disease, Without Long-Term Current Use of Insulin (Hcc) Aortic Valve Stenosis Chronic Systolic Heart Failure (Hcc) Mcc (Current) Use of Anticoagulants 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 Rinse mouth out after use with water. atorvastatin (LIPITOR) 40 mg tablet Take 1 tablet by mouth once daily. pantoprazole DR (PROTONIX) 20 mg tablet Take 1 tablet by mouth daily before breakfast. Take on empty stomach, 1/2 hr before meal. vlnottvac-iqdkeu-czpopp ne-scop () 16.2-0.1037 -0.0194 mg per tablet Take 1 tablet by mouth every 6 hours as needed. nitroglycerin sublingual (NITROSTAT) 0.4 mg SL tablet Dissolve 1 tablet under the tongue as needed. DISSOLVE ON TONGUE FOR CHEST PAIN. IF NO PAIN RELIEF, CALL 911 bumetanide (BUMEX) 1 mg tablet One tablet every other day; OR daily, depending on weight gain, fluid retention. ENTRESTO 24-26 mg tablet Take 1 tablet by mouth twice daily. sotalol (BETAPACE) 80 mg tablet Take 2 tablets by mouth twice daily. spironolactone (ALDACTONE) 25 mg tablet Take 25 mg by mouth once daily. LOW-DOSE ASPIRIN ORAL Take 1 tablet by mouth once daily. blood sugar diagnostic (BLOOD GLUCOSE TEST) test strip Test blood sugar(s) one times daily. Dx: Type 2 DM - Controlled E11.9 Insulin: No Blood-Glucose Meter monitoring kit Glucose Meter of Choice - Kit - Dx: Type 2 DM - Controlled E11.9 No current facility-administered medications for this visit. Objective BP 104/62 (BP Site: Right Arm, BP Position: Sitting, BP Cuff Size: Large Adult) Pulse 64 Temp 36.2 ?C (97.1 ?F) (Temporal) Resp 18 Wt 80.7 kg (178 lb) BMI 26.59 kg/m? Physical Exam Constitutional: General: He is not in acute distress. Appearance: He is not ill-appearing. HENT: Head: Normocephalic. Cardiovascular: Rate and Rhythm: Rhythm irregular. Heart sounds: S1 normal and S2 normal. Murmur heard. Systolic murmur is present with a grade of 1/6. Pulmonary: Effort: No respiratory distress. Breath sounds: Rales present. No wheezing or rhonchi. Abdominal: Palpations: Abdomen is soft. Tenderness: There is no abdominal tenderness. Musculoskeletal: Right lower le+ Pitting Edema present. Left lower le+ Pitting Edema present. Skin: Comments: Left elbow with zaheer shaped skin tear, moist, no infection, no bleeding or oozing. Neurological: General: No focal deficit present. Mental Status: He is alert. Latest Ref Rng 01/25/2024 Protein, Total 6.3 - 8.0 g/dL 6.8 Albumin 3.9 - 4.9 g/dL 3.9 Calcium 8.5 - 10.2 mg/dL 10.4 (H) Bilirubin, Total 0.2 - 1.3 mg/dL 0.9 (more content not included)... Normal [facility] 03-08-2024 CNPN Telephone (PHAMTE) BESSY VALVERDE ([id number]) 1945 M Date Time Provider Department 03/08/24 JONATHAN HAWKINS During your visit today, we recorded the following information about you: Jonathan Hawkins [facility] 03/08/2024 7:58 AM Signed [facility] Anticoagulation Episode Summary Anticoagulation Care Providers Provider Role Specialty Phone number George Mata MD [facility] Internal Medicine [phone] Bessy Hernandez Nicolle is a 78 year old year old male patient being evaluated today for a Telemanagement visit. Patient is currently on the following anticoagulant(s) Warfarin. Labs PT INR (no units) Date Value 11/19/2021 2.7 biotel 11/05/2021 2.5 10/22/2021 2.8 biotel INR Home CoaguChek (no units) Date Value 03/08/2024 1.9 03/01/2024 2.7 02/17/2024 1.8 Hemoglobin (g/dL) Date Value 01/25/2024 12.2 09/23/2021 13.8 Hematocrit (%) Date Value 01/25/2024 37.8 09/23/2021 44.4 Platelet Count (k/uL) Date Value 01/25/2024 125 09/23/2021 160 Creatinine (mg/dL) Date Value 01/25/2024 1.30 07/29/2023 1.35 01/23/2023 1.27 09/23/2021 1.18 09/02/2021 1.31 08/05/2021 1.68 Bilirubin, Total (mg/dL) Date Value 01/25/2024 0.9 08/22/2021 1.2 ALT (U/L) Date Value 01/25/2024 20 08/22/2021 36 AST (U/L) Date Value 01/25/2024 24 08/22/2021 45 CrCl cannot be calculated (Unknown ideal weight.). ALLERGIES No Known Allergies Indication for Warfarin: Anticoagulation Episode Summary Current INR goal: 2.0-3.0 Assessment: INR result of 1.9 is SUBtherapeutic due to: No obvious cause (patient denies liver, green tea, new herbal/nutritional supplements - such as Boost, Ensure, an increase in vit K foods and/or V8 type juices, any changes in warfarin tablet, or missed doses) Plan: Current Warfarin Dosing As of 03/08/2024 Full warfarin instructions: 03/08: 5 mg; Otherwise 5 mg every Mon, Fri; 2.5 mg all other days Called and spoke to patient/caregiver Advised patient to increase dose for 1 day only then resume weekly regimen Next home INR check scheduled on Patient verbalizes understanding of the plan. Jonathan Hawkins [facility] Clinical Pharmacist, Pharmacy Anticoagulation Clinic Pharmacy Anticoagulation Clinic Pager: [phone]. Allergies As of Date: 03/08/2024 (No Known Allergies) Date Reviewed: 11/10/2023 Reviewed by: Daphney Obando LPN - Fully Assessed Reason for Visit: Anticoagulation Telephone Fu [148] Cmt: Home INR result Prescriptions as of 03/08/2024 - albuterol HFA (VENTOLIN HFA) 90 mcg/actuation inhaler USE 2 INHALATIONS 4 TIMES A DAY IF NEEDED - warfarin (COUMADIN) 5 mg tablet 5 mg every Thu AND Fr ; 2.5 mg all other days - fluticasone-salmeterol (ADVAIR DISKUS) 100-50 mcg/dose inhaler Inhale 1 Puff as instructed two times a day. Rinse mouth out after use with water. - atorvastatin (LIPITOR) 40 mg tablet Take 1 tablet by mouth once daily. - pantoprazole DR (PROTONIX) 20 mg tablet Take 1 tablet by mouth daily before breakfast. Take on empty stomach, 1/2 hr before meal. - yaklatzmm-qqppfs-ujbwdx ne-scop () 16.2-0.1037 -0.0194 mg per tablet Take 1 tablet by mouth every 6 hours as needed. - nitroglycerin sublingual (NITROSTAT) 0.4 mg SL tablet Dissolve 1 tablet under the tongue as needed. DISSOLVE ON TONGUE FOR CHEST PAIN. IF NO PAIN RELIEF, CALL 911 - bumetanide (BUMEX) 1 mg tablet One tablet every other day; OR daily, depending on weight gain, fluid retention. - ENTRESTO 24-26 mg tablet Take 1 tablet by mouth twice daily. - sotalol (BETAPACE) 80 mg tablet Take 2 tablets by mouth twice daily. - spironolactone (ALDACTONE) 25 mg tablet Take 25 mg by mouth once daily. - LOW-DOSE ASPIRIN ORAL Take 1 tablet by mouth once daily. - blood sugar diagnostic (BLOOD GLUCOSE TEST) test strip Test blood sugar(s) one times daily. Dx: Type 2 DM - Controlled E11.9 Insulin: No - Blood-Glucose Meter monitoring kit Glucose Meter of Choice - Kit - Dx: Type 2 DM - Controlled E11.9 Problem List As Of Date 03/08/2024 Noted Resolved Coronary atherosclerosis [I25.10] 05/19/2005 PURE HYPERCHOLESTEROLEM [E78.00] 05/19/2005 Esophageal reflux [K21.9] 05/19/2005 01/06/2018 Essential hypertension [I10] 05/19/2005 Postsurgical aortocoronary bypass status [Z95.1]06/22/2007 01/27/2019 IRRITABLE COLON [K58.9] 06/22/2007 Asthma, moderate persistent, well-controlled [J*12/09/2008 Screen for colon cancer [Z12.11] 07/11/2010 12/03/2012 Colon polyp [K63.5] 07/26/2010 07/24/2022 Diverticulosis [K57.90] 07/26/2010 01/27/2019 Occult GI bleeding [R19.5] 08/13/2012 12/03/2012 Positive fecal occult blood test [R19.5] 08/23/2012 12/03/2012 Byers's esophagus [K22.70] 09/10/2012 Interstitial lung disease (HCC) [J84.9] 03/25/2013 Anticoagulated on Coumadin ( home INR testing) *more content not included)... Normal [facility] Prothrombin Time w/INRon INR Coag (PPP) [Relative time] 1.3 {INR} Normal [facility] Comment on above: Performed By: #### L [id number] #### [facility] [address] [place], [address] PT Coag (PPP) [Time] 15.8 s High 11.7-14.9 [facility] Comment on above: Performed By: #### L [id number] #### [facility] [address] [place], [place], [id number] LABORATORYOrdered By: Chelita De Leon on 11-28-2021 Calcium [Mass/Vol] 9.1 mg/dL Invalid Interpretation Code 8.4 - 10.2 mg/dL AO ADM SS Chloride [Moles/Vol] 103 mmol/L Invalid Interpretation Code 98 - 107 mmol/L AO ADM SS CO2 [Moles/Vol] 27 mmol/L Invalid Interpretation Code 23 - 31 mmol/L AO ADM SS Creatinine [Mass/Vol] 1.43 mg/dL Invalid Interpretation Code 0.70 - 1.30 mg/dL AO ADM SS Electrolyte Balance 7.0 mEq/L Invalid Interpretation Code 4.0 - 15.0 mEq/L AO ADM SS Glucose [Mass/Vol] 151 mg/dL Invalid Interpretation Code 83 - 110 mg/dL AO ADM SS Natriuretic peptide.B prohormone N-Terminal [Mass/Vol] 1207 pg/mL Invalid Interpretation Code 0 - 450 pg/mL AO ADM SS Potassium [Moles/Vol] 4.5 mmol/L Invalid Interpretation Code 3.5 - 5.1 mmol/L AO ADM SS Sodium [Moles/Vol] 137 mmol/L Invalid Interpretation Code 136 - 145 mmol/L AO ADM SS Urea nitrogen [Mass/Vol] 35 mg/dL Invalid Interpretation Code 7 - 18 mg/dL AO ADM SS Urea nitrogen/Creatinine [Mass ratio] 24 ratio Invalid Interpretation Code 7 - 27 ratio AO ADM SS LABORATORYOrdered By: SYSTEM SYSTEM on 11-28-2021 GFR 58 ml/min/1.73sqm Invalid Interpretation Code AO Chemistry S GFR Non- 48 ml/min/1.73sqm Invalid Interpretation Code AO Chemistry S LABORATORYOrdered By: Mica Norton on 11-07-2021 Calcium [Mass/Vol] 9.2 mg/dL Invalid Interpretation Code 8.4 - 10.2 mg/dL AO ADM SS Chloride [Moles/Vol] 99 mmol/L Invalid Interpretation Code 98 - 107 mmol/L AO ADM SS CO2 [Moles/Vol] 29 mmol/L Invalid Interpretation Code 23 - 31 mmol/L AO ADM SS Creatinine [Mass/Vol] 1.52 mg/dL Invalid Interpretation Code 0.70 - 1.30 mg/dL AO ADM SS Electrolyte Balance 8.0 mEq/L Invalid Interpretation Code 4.0 - 15.0 mEq/L AO ADM SS Glucose [Mass/Vol] 179 mg/dL Invalid Interpretation Code 83 - 110 mg/dL AO ADM SS Natriuretic peptide.B prohormone N-Terminal [Mass/Vol] 1267 pg/mL Invalid Interpretation Code 0 - 450 pg/mL AO ADM SS Potassium [Moles/Vol] 4.2 mmol/L Invalid Interpretation Code 3.5 - 5.1 mmol/L AO ADM SS Sodium [Moles/Vol] 136 mmol/L Invalid Interpretation Code 136 - 145 mmol/L AO ADM SS Urea nitrogen [Mass/Vol] 32 mg/dL Invalid Interpretation Code 7 - 18 mg/dL AO ADM SS Urea nitrogen/Creatinine [Mass ratio] 21 ratio Invalid Interpretation Code 7 - 27 ratio AO ADM SS LABORATORYOrdered By: SYSTEM SYSTEM on 11-07-2021 GFR 54 ml/min/1.73sqm Invalid Interpretation Code AO Chemistry S GFR Non- 45 ml/min/1.73sqm Invalid Interpretation Code AO Chemistry S ECHOon 11-06-2021 [facility] INR FINGERSTICK B/Oon 2021 INR Coag (Bld) [Relative time] 2.5 {INR} [facility] Quality Check No [facility] LABORATORYOrdered By: Zachery Ashraf on 10-31-2021 Calcium [Mass/Vol] 8.8 mg/dL Invalid Interpretation Code 8.4 - 10.2 mg/dL AO ADM SS Chloride [Moles/Vol] 101 mmol/L Invalid Interpretation Code 98 - 107 mmol/L AO ADM SS CO2 [Moles/Vol] 30 mmol/L Invalid Interpretation Code 23 - 31 mmol/L AO ADM SS Creatinine [Mass/Vol] 1.40 mg/dL Invalid Interpretation Code 0.70 - 1.30 mg/dL AO ADM SS Electrolyte Balance 8.0 mEq/L Invalid Interpretation Code 4.0 - 15.0 mEq/L AO ADM SS Glucose [Mass/Vol] 149 mg/dL Invalid Interpretation Code 83 - 110 mg/dL AO ADM SS Natriuretic peptide.B prohormone N-Terminal [Mass/Vol] 956 pg/mL Invalid Interpretation Code 0 - 450 pg/mL AO ADM SS Potassium [Moles/Vol] 4.0 mmol/L Invalid Interpretation Code 3.5 - 5.1 mmol/L AO ADM SS Sodium [Moles/Vol] 139 mmol/L Invalid Interpretation Code 136 - 145 mmol/L AO ADM SS Urea nitrogen [Mass/Vol] 23 mg/dL Invalid Interpretation Code 7 - 18 mg/dL AO ADM SS Urea nitrogen/Creatinine [Mass ratio] 16 ratio Invalid Interpretation Code 7 - 27 ratio AO ADM SS LABORATORYOrdered By: SYSTEM SYSTEM on 10-31-2021 GFR 60 ml/min/1.73sqm Invalid Interpretation Code AO Chemistry S GFR Non- 49 ml/min/1.73sqm Invalid Interpretation Code AO Chemistry S LABORATORYOrdered By: SYSTEM SYSTEM on 10-24-2021 Base excess Calc (BldMV) [Moles/Vol] 7.0 mEq/L Invalid Interpretation Code 4.0 - 15.0 mEq/L AH ADM SS Basophils (Bld) [#/Vol] 0.00 103/mcL Invalid Interpretation Code 0.00 - 0.27 10^3/mcL AH Remisol SS Basophils/100 WBC (Bld) 0.7 % Invalid Interpretation Code 0.0 - 2.5 % AH Remisol SS Calcium [Mass/Vol] 8.9 mg/dL Invalid Interpretation Code 8.4 - 10.1 mg/dL AH ADM SS Chloride [Moles/Vol] 103 mmol/L Invalid Interpretation Code 98 - 110 mEq/L AH ADM SS CO2 [Moles/Vol] 28 mmol/L Invalid Interpretation Code 22 - 32 mEq/L AH ADM SS Creatinine [Mass/Vol] 1.16 mg/dL Invalid Interpretation Code 0.60 - 1.40 mg/dL AH ADM SS Eosinophils (Bld) [#/Vol] 0.20 103/mcL Invalid Interpretation Code 0.00 - 0.65 10^3/mcL AH Remisol SS Eosinophils/100 WBC (Bld) 2.7 % Invalid Interpretation Code 0.0 - 6.0 % AH Remisol SS Erythrocyte distribution width (RBC) [Ratio] 17.9 % Invalid Interpretation Code 11.5 - 15.5 % AH Remisol SS GFR/1.73 sq M.predicted among blacks MDRD (S/P/Bld) [Vol rate/Area] ml/min/1.73sqm Invalid Interpretation Code AH ADM SS GFR/1.73 sq M.predicted among non-blacks MDRD (S/P/Bld) [Vol rate/Area] ml/min/1.73sqm Invalid Interpretation Code AH ADM SS Glucose [Mass/Vol] 155 mg/dL Invalid Interpretation Code 82 - 115 mg/dL AH ADM SS Hematocrit (Bld) [Volume fraction] 39.8 % Invalid Interpretation Code 40.0 - 52.0 % AH Remisol SS Hemoglobin (Bld) [Mass/Vol] 13.6 G/dL Invalid Interpretation Code 13.0 - 17.5 G/dL AH Remisol SS Lymphocytes (Bld) [#/Vol] 0.70 103/mcL Invalid Interpretation Code 0.90 - 4.32 10^3/mcL AH Remisol SS Lymphocytes/100 WBC (Bld) 11.4 % Invalid Interpretation Code 20.0 - 40.0 % AH Remisol SS MCH (RBC) [Entitic mass] 28.5 pg Invalid Interpretation Code 27.0 - 33.0 pg AH Remisol SS MCHC (RBC) [Mass/Vol] 34.1 G/dL Invalid Interpretation Code 32.0 - 36.0 G/dL AH Remisol SS MCV (RBC) [Entitic vol] 83.6 fL Invalid Interpretation Code 81.0 - 100.0 fL AH Remisol SS Monocytes (Bld) [#/Vol] 0.50 103/mcL Invalid Interpretation Code 0.09 - 1.40 10^3/mcL AH Remisol SS Monocytes/100 WBC (Bld) 8.3 % Invalid Interpretation Code 2.0 - 13.0 % AH Remisol SS Neutrophils (Bld) [#/Vol] 4.60 103/mcL Invalid Interpretation Code 2.25 - 8.10 10^3/mcL AH Remisol SS Neutrophils/100 WBC (Bld) 76.9 % Invalid Interpretation Code 50.0 - 75.0 % AH Remisol SS Platelet mean volume (Bld) [Entitic vol] 9.4 fL Invalid Interpretation Code 6.4 - 10.5 fL AH Remisol SS Platelets (Bld) [#/Vol] 121 103/mcL Invalid Interpretation Code 150 - 450 10^3/mcL AH Remisol SS Potassium [Moles/Vol] 3.9 mmol/L Invalid Interpretation Code 3.5 - 5.0 mEq/L AH ADM SS RBC (Bld) [#/Vol] 4.76 106/mcL Invalid Interpretation Code 4.50 - 6.00 10^6/mcL AH Remisol SS Sodium [Moles/Vol] 138 mmol/L Invalid Interpretation Code 136 - 145 mEq/L AH ADM SS Urea nitrogen [Mass/Vol] 28.0 mg/dL Invalid Interpretation Code 8.0 - 22.0 mg/dL AH ADM SS Urea nitrogen/Creatinine [Mass ratio] 24.1 ratio Invalid Interpretation Code 10.0 - 22.0 ratio AH ADM SS WBC (Bld) [#/Vol] 6.00 103/mcL Invalid Interpretation Code 4.50 - 10.80 10^3/mcL AH Remisol SS LABORATORYOrdered By: Remigio Rush on 10-24-2021 INR Coag (PPP) [Relative time] 2.3 {INR} Invalid Interpretation Code AH Auto Coag SS PT Coag (PPP) [Time] 27.5 s Invalid Interpretation Code 9.0 - 14.9 seconds AH Auto Coag SS LABORATORYOrdered By: Kaleigh Samaniego on 10-16-2021 Albumin BCP dye [Mass/Vol] 3.7 G/dL Invalid Interpretation Code 3.2 - 4.8 G/dL AH ADM SS Albumin/Globulin [Mass ratio] 1.0 {ratio} Invalid Interpretation Code 0.9 - 1.6 ratio AH ADM SS ALP [Catalytic activity/Vol] 105 U/L Invalid Interpretation Code 38 - 126 U/L ADM SS ALT No additional P-5'-P [Catalytic activity/Vol] 28 U/L Invalid Interpretation Code 12 - 55 U/L AH ADM SS AST [Catalytic activity/Vol] 32 U/L Invalid Interpretation Code 8 - 34 U/L ADM SS Bili Indirect 0.8 mg/dL Invalid Interpretation Code 0.1 - 10.0 mg/dL Chemistry S Bilirubin [Mass/Vol] 1.30 mg/dL Invalid Interpretation Code 0.20 - 1.20 mg/dL AH ADM SS Bilirubin.conjugated [Mass/Vol] 0.5 mg/dL Invalid Interpretation Code 0.0 - 0.4 mg/dL AH ADM SS Globulin 3.7 G/dL Invalid Interpretation Code 1.5 - 3.8 G/dL AH ADM SS Protein [Mass/Vol] 7.4 G/dL Invalid Interpretation Code 5.7 - 8.2 G/dL AH ADM SS LABORATORYOrdered By: Marielena Nova on 07-31-2021 Blood Glucose Testing Reason Routine (07/31/21 10:54 AM) [facility] Glucose [Mass/Vol] 105 mg/dL Invalid Interpretation Code 82 - 115 mg/dL [facility] LABORATORYOrdered By: Dianelys Sanchez on 07-31-2021 Blood Glucose Testing Reason Routine (07/31/21 7:22 AM) [facility] Glucose [Mass/Vol] 129 mg/dL Invalid Interpretation Code 82 - 115 mg/dL [facility] LABORATORYOrdered By: SYSTEM SYSTEM on 07-31-2021 Albumin BCP dye [Mass/Vol] 3.2 G/dL Invalid Interpretation Code 3.2 - 4.8 G/dL ADM SS Albumin/Globulin [Mass ratio] 1.1 {ratio} Invalid Interpretation Code 0.9 - 1.6 ratio AH ADM SS ALP [Catalytic activity/Vol] 81 U/L Invalid Interpretation Code 38 - 126 U/L ADM SS ALT No additional P-5'-P [Catalytic activity/Vol] 20 U/L Invalid Interpretation Code 12 - 55 U/L AH ADM SS AST [Catalytic activity/Vol] 26 U/L Invalid Interpretation Code 8 - 34 U/L AH ADM SS Basophils (Bld) [#/Vol] 0.00 103/mcL Invalid Interpretation Code 0.00 - 0.27 10^3/mcL AH Remisol SS Basophils/100 WBC (Bld) 0.3 % Invalid Interpretation Code 0.0 - 2.5 % Remisol SS Bilirubin [Mass/Vol] 1.30 mg/dL Invalid Interpretation Code 0.20 - 1.20 mg/dL ADM SS Calcium [Mass/Vol] 9.1 mg/dL Invalid Interpretation Code 8.7 - 10.4 mg/dL ADM SS Chloride [Moles/Vol] 107 mmol/L Invalid Interpretation Code 98 - 110 mEq/L ADM SS CO2 [Moles/Vol] 28 mmol/L Invalid Interpretation Code 22 - 32 mEq/L ADM SS Creatinine [Mass/Vol] 1.48 mg/dL Invalid Interpretation Code 0.60 - 1.40 mg/dL AH ADM SS Eosinophils (Bld) [#/Vol] 0.10 103/mcL Invalid Interpretation Code 0.00 - 0.65 10^3/mcL AH Remisol SS Eosinophils/100 WBC (Bld) 1.0 % Invalid Interpretation Code 0.0 - 6.0 % AH Remisol SS Erythrocyte distribution width (RBC) [Ratio] 16.3 % Invalid Interpretation Code 11.5 - 15.5 % AH Remisol SS GFR/1.73 sq M.predicted among blacks MDRD (S/P/Bld) [Vol rate/Area] 56 ml/min/1.73sqm Invalid Interpretation Code Chemistry S GFR/1.73 sq M.predicted among non-blacks MDRD (S/P/Bld) [Vol rate/Area] 46 ml/min/1.73sqm Invalid Interpretation Code Chemistry S Globulin 2.9 G/dL Invalid Interpretation Code 1.5 - 3.8 G/dL AH ADM SS Glucose [Mass/Vol] 126 mg/dL Invalid Interpretation Code 82 - 115 mg/dL AH ADM SS Hematocrit (Bld) [Volume fraction] 34.0 % Invalid Interpretation Code 40.0 - 52.0 % AH Remisol SS Hemoglobin (Bld) [Mass/Vol] 11.5 G/dL Invalid Interpretation Code 13.0 - 17.5 G/dL AH Remisol SS Lymphocytes (Bld) [#/Vol] 0.60 103/mcL Invalid Interpretation Code 0.90 - 4.32 10^3/mcL AH Remisol SS Lymphocytes/100 WBC (Bld) 8.7 % Invalid Interpretation Code 20.0 - 40.0 % AH Remisol SS MCH (RBC) [Entitic mass] 28.8 pg Invalid Interpretation Code 27.0 - 33.0 pg AH Remisol SS MCHC (RBC) [Mass/Vol] 33.9 G/dL Invalid Interpretation Code 32.0 - 36.0 G/dL AH Remisol SS MCV (RBC) [Entitic vol] 85.0 fL Invalid Interpretation Code 81.0 - 100.0 fL AH Remisol SS Monocytes (Bld) [#/Vol] 0.70 103/mcL Invalid Interpretation Code 0.09 - 1.40 10^3/mcL AH Remisol SS Monocytes/100 WBC (Bld) 11.1 % Invalid Interpretation Code 2.0 - 13.0 % AH Remisol SS Neutrophils (Bld) [#/Vol] 5.10 103/mcL Invalid Interpretation Code 2.25 - 8.10 10^3/mcL AH Remisol SS Neutrophils/100 WBC (Bld) 78.9 % Invalid Interpretation Code 50.0 - 75.0 % AH Remisol SS Platelet mean volume (Bld) [Entitic vol] 8.6 fL Invalid Interpretation Code 6.4 - 10.5 fL AH Remisol SS Platelets (Bld) [#/Vol] 122 103/mcL Invalid Interpretation Code 150 - 450 10^3/mcL AH Remisol SS Potassium [Moles/Vol] 4.5 mmol/L Invalid Interpretation Code 3.5 - 5.0 mEq/L ADM SS Protein [Mass/Vol] 6.1 G/dL Invalid Interpretation Code 5.7 - 8.2 G/dL AH ADM SS RBC (Bld) [#/Vol] 4.00 106/mcL Invalid Interpretation Code 4.50 - 6.00 10^6/mcL Remisol SS Sodium [Moles/Vol] 140 mmol/L Invalid Interpretation Code 136 - 145 mEq/L AH ADM SS Urea nitrogen [Mass/Vol] 32.0 mg/dL Invalid Interpretation Code 8.0 - 22.0 mg/dL AH ADM SS Urea nitrogen/Creatinine [Mass ratio] 21.6 ratio Invalid Interpretation Code 10.0 - 22.0 ratio ADM SS WBC (Bld) [#/Vol] 6.50 103/mcL Invalid Interpretation Code 4.50 - 10.80 10^3/mcL Remisol SS LABORATORYOrdered By: Kay Toribio on 07-31-2021 Electrolyte Balance 5.0 mEq/L Invalid Interpretation Code 4.0 - 15.0 mEq/L Chemistry S LABORATORYOrdered By: Monica Rojas on 07-31-2021 INR Coag (PPP) [Relative time] 1.2 {INR} Invalid Interpretation Code Auto Coag SS PT Coag (PPP) [Time] 13.7 s Invalid Interpretation Code 9.0 - 14.8 seconds Auto Coag SS LABORATORYOrdered By: Dior schmitz on 07-30-2021 Blood Glucose Testing Reason Routine (07/30/21 9:46 PM) [facility] Glucose [Mass/Vol] 111 mg/dL Invalid Interpretation Code 82 - 115 mg/dL [facility] LABORATORYOrdered By: Darin Watson on 07-30-2021 aPTT Coag (PPP) [Time] 64.5 s Invalid Interpretation Code 25.0 - 35.0 seconds Auto Coag SS Heparin dose (APTT) Heparin IV (07/30/21 6:11 AM) Invalid Interpretation Code AH Auto Coag SS INR Coag (PPP) [Relative time] 1.2 {INR} Invalid Interpretation Code AH Auto Coag SS PT Coag (PPP) [Time] 14.7 s Invalid Interpretation Code 9.0 - 14.8 seconds Auto Coag SS LABORATORYOrdered By: SYSTEM SYSTEM on 07-30-2021 Base excess Calc (BldMV) [Moles/Vol] 5.0 mEq/L Invalid Interpretation Code 4.0 - 15.0 mEq/L AH ADM SS Basophils (Bld) [#/Vol] 0.00 103/mcL Invalid Interpretation Code 0.00 - 0.27 10^3/mcL AH Remisol SS Basophils/100 WBC (Bld) 0.3 % Invalid Interpretation Code 0.0 - 2.5 % AH Remisol SS Calcium [Mass/Vol] 8.2 mg/dL Invalid Interpretation Code 8.4 - 10.1 mg/dL AH ADM SS Chloride [Moles/Vol] 106 mmol/L Invalid Interpretation Code 98 - 110 mEq/L AH ADM SS CO2 [Moles/Vol] 25 mmol/L Invalid Interpretation Code 22 - 32 mEq/L AH ADM SS Creatinine [Mass/Vol] 1.33 mg/dL Invalid Interpretation Code 0.60 - 1.40 mg/dL AH ADM SS Eosinophils (Bld) [#/Vol] 0.00 103/mcL Invalid Interpretation Code 0.00 - 0.65 10^3/mcL AH Remisol SS Eosinophils/100 WBC (Bld) 0.7 % Invalid Interpretation Code 0.0 - 6.0 % AH Remisol SS Erythrocyte distribution width (RBC) [Ratio] 16.6 % Invalid Interpretation Code 11.5 - 15.5 % AH Remisol SS GFR/1.73 sq M.predicted among blacks MDRD (S/P/Bld) [Vol rate/Area] ml/min/1.73sqm Invalid Interpretation Code AH ADM SS GFR/1.73 sq M.predicted among non-blacks MDRD (S/P/Bld) [Vol rate/Area] 52 ml/min/1.73sqm Invalid Interpretation Code ADM SS Glucose [Mass/Vol] 214 mg/dL Invalid Interpretation Code 82 - 115 mg/dL AH ADM SS Hematocrit (Bld) [Volume fraction] 32.7 % Invalid Interpretation Code 40.0 - 52.0 % AH Remisol SS Hemoglobin (Bld) [Mass/Vol] 10.9 G/dL Invalid Interpretation Code 13.0 - 17.5 G/dL AH Remisol SS Lymphocytes (Bld) [#/Vol] 0.50 103/mcL Invalid Interpretation Code 0.90 - 4.32 10^3/mcL AH Remisol SS Lymphocytes/100 WBC (Bld) 7.9 % Invalid Interpretation Code 20.0 - 40.0 % AH Remisol SS Magnesium [Mass/Vol] 2.2 mg/dL Invalid Interpretation Code 1.6 - 2.4 mg/dL AH ADM SS MCH (RBC) [Entitic mass] 28.6 pg Invalid Interpretation Code 27.0 - 33.0 pg AH Remisol SS MCHC (RBC) [Mass/Vol] 33.5 G/dL Invalid Interpretation Code 32.0 - 36.0 G/dL AH Remisol SS MCV (RBC) [Entitic vol] 85.5 fL Invalid Interpretation Code 81.0 - 100.0 fL AH Remisol SS Monocytes (Bld) [#/Vol] 0.90 103/mcL Invalid Interpretation Code 0.09 - 1.40 10^3/mcL AH Remisol SS Monocytes/100 WBC (Bld) 12.7 % Invalid Interpretation Code 2.0 - 13.0 % AH Remisol SS Neutrophils (Bld) [#/Vol] 5.30 103/mcL Invalid Interpretation Code 2.25 - 8.10 10^3/mcL AH Remisol SS Neutrophils/100 WBC (Bld) 78.4 % Invalid Interpretation Code 50.0 - 75.0 % AH Remisol SS Platelet mean volume (Bld) [Entitic vol] 8.8 fL Invalid Interpretation Code 6.4 - 10.5 fL AH Remisol SS Platelets (Bld) [#/Vol] 114 103/mcL Invalid Interpretation Code 150 - 450 10^3/mcL AH Remisol SS Potassium [Moles/Vol] 4.0 mmol/L Invalid Interpretation Code 3.5 - 5.0 mEq/L AH ADM SS RBC (Bld) [#/Vol] 3.82 106/mcL Invalid Interpretation Code 4.50 - 6.00 10^6/mcL AH Remisol SS Sodium [Moles/Vol] 136 mmol/L Invalid Interpretation Code 136 - 145 mEq/L AH ADM SS Urea nitrogen [Mass/Vol] 30.0 mg/dL Invalid Interpretation Code 8.0 - 22.0 mg/dL AH ADM SS Urea nitrogen/Creatinine [Mass ratio] 22.6 ratio Invalid Interpretation Code 10.0 - 22.0 ratio AH ADM SS WBC (Bld) [#/Vol] 6.80 103/mcL Invalid Interpretation Code 4.50 - 10.80 10^3/mcL AH Remisol SS Base excess Calc (BldMV) [Moles/Vol] 4.0 mEq/L Invalid Interpretation Code 4.0 - 15.0 mEq/L AH ADM SS Basophils (Bld) [#/Vol] 0.00 103/mcL Invalid Interpretation Code 0.00 - 0.27 10^3/mcL AH Remisol SS Basophils/100 WBC (Bld) 0.4 % Invalid Interpretation Code 0.0 - 2.5 % AH Remisol SS Calcium [Mass/Vol] 8.2 mg/dL Invalid Interpretation Code 8.4 - 10.1 mg/dL AH ADM SS Chloride [Moles/Vol] 107 mmol/L Invalid Interpretation Code 98 - 110 mEq/L AH ADM SS CO2 [Moles/Vol] 27 mmol/L Invalid Interpretation Code 22 - 32 mEq/L AH ADM SS Creatinine [Mass/Vol] 1.41 mg/dL Invalid Interpretation Code 0.60 - 1.40 mg/dL AH ADM SS Eosinophils (Bld) [#/Vol] 0.10 103/mcL Invalid Interpretation Code 0.00 - 0.65 10^3/mcL AH Remisol SS Eosinophils/100 WBC (Bld) 0.6 % Invalid Interpretation Code 0.0 - 6.0 % AH Remisol SS Erythrocyte distribution width (RBC) [Ratio] 16.3 % Invalid Interpretation Code 11.5 - 15.5 % AH Remisol SS GFR/1.73 sq M.predicted among blacks MDRD (S/P/Bld) [Vol rate/Area] 59 ml/min/1.73sqm Invalid Interpretation Code AH ADM SS GFR/1.73 sq M.predicted among non-blacks MDRD (S/P/Bld) [Vol rate/Area] 49 ml/min/1.73sqm Invalid Interpretation Code AH ADM SS Glucose [Mass/Vol] 163 mg/dL Invalid Interpretation Code 82 - 115 mg/dL AH ADM SS Hematocrit (Bld) [Volume fraction] 33.8 % Invalid Interpretation Code 40.0 - 52.0 % AH Remisol SS Hemoglobin (Bld) [Mass/Vol] 11.4 G/dL Invalid Interpretation Code 13.0 - 17.5 G/dL AH Remisol SS LDH [Catalytic activity/Vol] 245 U/L Invalid Interpretation Code 120 - 246 U/L AH ADM SS Lymphocytes (Bld) [#/Vol] 0.70 103/mcL Invalid Interpretation Code 0.90 - 4.32 10^3/mcL AH Remisol SS Lymphocytes/100 WBC (Bld) 9.2 % Invalid Interpretation Code 20.0 - 40.0 % AH Remisol SS MCH (RBC) [Entitic mass] 28.6 pg Invalid Interpretation Code 27.0 - 33.0 pg AH Remisol SS MCHC (RBC) [Mass/Vol] 33.7 G/dL Invalid Interpretation Code 32.0 - 36.0 G/dL AH Remisol SS MCV (RBC) [Entitic vol] 84.9 fL Invalid Interpretation Code 81.0 - 100.0 fL AH Remisol SS Monocytes (Bld) [#/Vol] 1.20 103/mcL Invalid Interpretation Code 0.09 - 1.40 10^3/mcL AH Remisol SS Monocytes/100 WBC (Bld) 15.8 % Invalid Interpretation Code 2.0 - 13.0 % AH Remisol SS Neutrophils (Bld) [#/Vol] 5.90 103/mcL Invalid Interpretation Code 2.25 - 8.10 10^3/mcL AH Remisol SS Neutrophils/100 WBC (Bld) 74.0 % Invalid Interpretation Code 50.0 - 75.0 % AH Remisol SS Platelet mean volume (Bld) [Entitic vol] 8.8 fL Invalid Interpretation Code 6.4 - 10.5 fL AH Remisol SS Platelets (Bld) [#/Vol] 144 103/mcL Invalid Interpretation Code 150 - 450 10^3/mcL AH Remisol SS Potassium [Moles/Vol] 4.1 mmol/L Invalid Interpretation Code 3.5 - 5.0 mEq/L AH ADM SS RBC (Bld) [#/Vol] 3.98 106/mcL Invalid Interpretation Code 4.50 - 6.00 10^6/mcL AH Remisol SS Sodium [Moles/Vol] 138 mmol/L Invalid Interpretation Code 136 - 145 mEq/L AH ADM SS Urea nitrogen [Mass/Vol] 32.0 mg/dL Invalid Interpretation Code 8.0 - 22.0 mg/dL ADM SS Urea nitrogen/Creatinine [Mass ratio] 22.7 ratio Invalid Interpretation Code 10.0 - 22.0 ratio ADM SS WBC (Bld) [#/Vol] 7.90 103/mcL Invalid Interpretation Code 4.50 - 10.80 10^3/mcL Remisol SS LABORATORYOrdered By: Tonja Napier on 07-30-2021 Barometric Pressure 713 mm[Hg] Invalid Interpretation Code Auto Chem SS Base excess Calc (Bld) [Moles/Vol] -1.2000 mmol/L Invalid Interpretation Code Auto Chem SS CO2 (Bld) [Partial pressure] 39.1 mm[Hg] Invalid Interpretation Code 32.0 - 46.0 mm Hg Auto Chem SS CO2 [Moles/Vol] 24.6 mmol/L Invalid Interpretation Code 22.0 - 30.0 mmol/L Auto Chem SS HCO3 (Bld) [Moles/Vol] 23.4 mmol/L Invalid Interpretation Code 21.0 - 29.0 mmol/L Auto Chem SS Oxygen (Bld) [Partial pressure] 82.3 mm[Hg] Invalid Interpretation Code 74.0 - 108.0 mm Hg Auto Chem SS pH (Bld) 7.395 [pH] Invalid Interpretation Code 7.380 - 7.460 Auto Chem SS Lactate [Moles/Vol] 1.2 mmol/L Invalid Interpretation Code 0.2 - 2.0 mmol/L Auto Chem SS LABORATORYOrdered By: Gladys Salcedo on 07-29-2021 aPTT Coag (PPP) [Time] 43.2 s Invalid Interpretation Code 25.0 - 35.0 seconds Auto Coag SS Heparin dose (APTT) Heparin IV (07/29/21 11:52 PM) Invalid Interpretation Code Auto Coag SS LABORATORYOrdered By: SYSTEM SYSTEM on 07-29-2021 Albumin BCP dye [Mass/Vol] 3.3 G/dL Invalid Interpretation Code 3.2 - 4.8 G/dL ADM SS Albumin/Globulin [Mass ratio] 1.1 {ratio} Invalid Interpretation Code 0.9 - 1.6 ratio ADM SS ALP [Catalytic activity/Vol] 78 U/L Invalid Interpretation Code 38 - 126 U/L ADM SS ALT No additional P-5'-P [Catalytic activity/Vol] 19 U/L Invalid Interpretation Code 12 - 55 U/L ADM SS AST [Catalytic activity/Vol] 22 U/L Invalid Interpretation Code 8 - 34 U/L ADM SS Bilirubin [Mass/Vol] 1.50 mg/dL Invalid Interpretation Code 0.20 - 1.20 mg/dL ADM SS Globulin 3.0 G/dL Invalid Interpretation Code 1.5 - 3.8 G/dL ADM SS Protein [Mass/Vol] 6.3 G/dL Invalid Interpretation Code 5.7 - 8.2 G/dL ADM SS Magnesium [Mass/Vol] 2.4 mg/dL Invalid Interpretation Code 1.6 - 2.4 mg/dL ADM SS LABORATORYOrdered By: Arie Kimbrough on 07-29-2021 aPTT Coag (PPP) [Time] 78.6 s Invalid Interpretation Code 25.0 - 35.0 seconds Auto Coag SS Heparin dose (APTT) Heparin IV (07/29/21 7:52 AM) Invalid Interpretation Code Auto Coag SS LABORATORYOrdered By: Tonja Napier on 07-29-2021 INR Coag (PPP) [Relative time] 1.4 {INR} Invalid Interpretation Code Auto Coag SS PT Coag (PPP) [Time] 16.0 s Invalid Interpretation Code 9.0 - 14.8 seconds Auto Coag SS LABORATORYOrdered By: SYSTEM SYSTEM on 07-28-2021 Albumin [Mass/Vol] 3.2 G/dL Invalid Interpretation Code 3.2 - 4.8 G/dL ADM SS Albumin/Globulin [Mass ratio] 1.0 {ratio} Invalid Interpretation Code 0.9 - 1.6 ratio ADM SS ALP [Catalytic activity/Vol] 70 U/L Invalid Interpretation Code 38 - 126 U/L ADM SS ALT [Catalytic activity/Vol] 31 U/L Invalid Interpretation Code 12 - 55 U/L ADM SS AST [Catalytic activity/Vol] 24 U/L Invalid Interpretation Code 8 - 34 U/L ADM SS Bilirubin [Mass/Vol] 1.0 mg/dL Invalid Interpretation Code 0.2 - 1.2 mg/dL ADM SS Globulin (S) [Mass/Vol] 3.3 G/dL Invalid Interpretation Code 1.5 - 3.8 G/dL ADM SS Magnesium [Mass/Vol] 2.3 mg/dL Invalid Interpretation Code 1.6 - 2.4 mg/dL AH ADM SS Protein [Mass/Vol] 6.5 G/dL Invalid Interpretation Code 6.0 - 8.5 G/dL AH ADM SS LABORATORYOrdered By: Tonja Napier on 07-28-2021 Appearance (U) Irene *ABN* (07/28/21 1:24 AM) Invalid Interpretation Code Clear AH Auto Urine SS Bilirubin Ql (U) Negative (07/28/21 1:24 AM) Invalid Interpretation Code Neg-Trace AH Auto Urine SS Color (U) Yellow (07/28/21 1:24 AM) Invalid Interpretation Code AH Auto Urine SS Glucose Test strip (U) [Mass/Vol] Negative Invalid Interpretation Code Negativemg/d L AH Auto Urine SS Hemoglobin Auto test strip (U) [Mass/Vol] Negative (07/28/21 1:24 AM) Invalid Interpretation Code Neg-Trace AH Auto Urine SS Ketones Ql (U) Negative Invalid Interpretation Code Neg-Tracemg/ dL AH Auto Urine SS UA Leuk Est Negative (07/28/21 1:24 AM) Invalid Interpretation Code Negative AH Auto Urine SS UA Mucous 1+ /HPF Invalid Interpretation Code AH Auto Urine SS UA Nitrite Negative (07/28/21 1:24 AM) Invalid Interpretation Code Negative AH Auto Urine SS UA pH 5.0 (07/28/21 1:24 AM) Invalid Interpretation Code 5.0 - 8.0 AH Auto Urine SS UA Protein Negative Invalid Interpretation Code Negativemg/d L AH Auto Urine SS UA RBC 0-2 /HPF Invalid Interpretation Code 0-2/HPF AH Auto Urine SS UA Spec Grav 1.020 (07/28/21 1:24 AM) Invalid Interpretation Code 1.006-1.029 AH Auto Urine SS UA Specimen Type Clean Catch (07/28/21 1:24 AM) Invalid Interpretation Code AH Auto Urine SS UA Squam Epithelial Rare /HPF Invalid Interpretation Code 0-20/HPF AH Auto Urine SS UA Urobilinogen 1.0 E.U./dL Invalid Interpretation Code 0.2-1.0E.U./ dL AH Auto Urine SS WBC LM.HPF (Urine sed) [#/Area] 0-2 /HPF Invalid Interpretation Code 0-5/HPF AH Auto Urine SS LABORATORYOrdered By: SYSTEM SYSTEM on 07-26-2021 Troponin I.cardiac DL <= 0.01 ng/mL [Mass/Vol] 76.92 ng/L Invalid Interpretation Code 0.00 - 54.00 ng/L AH ADM SS TSH Qn 1.689 mIU/mL Invalid Interpretation Code 0.550 - 4.780 mIU/mL AH ADM SS LABORATORYOrdered By: SYSTEM SYSTEM on 07-25-2021 Natriuretic peptide.B prohormone N-Terminal [Mass/Vol] 977 pg/mL Invalid Interpretation Code 0 - 1800 pg/mL AH ADM SS Troponin I.cardiac DL <= 0.01 ng/mL [Mass/Vol] 74.54 ng/L Invalid Interpretation Code 0.00 - 54.00 ng/L AH ADM SS Troponin I.cardiac DL <= 0.01 ng/mL [Mass/Vol] 71.79 ng/L Invalid Interpretation Code 0.00 - 54.00 ng/L AH ADM SS XR Foot - left AP and Latera l and obliqueon 07-12-2021 * * *Final Report* * * DATE OF EXAM: Jul 12 2021 9:29AM WOX 5336 - XR FOOT 3V AP/LAT/OBL LT / PROCEDURE REASON: Foot pain, left * * * * Physician Interpretation * * * * Indication: Left foot pain after injury Comparison: X-ray left foot 10/12/2019 3 views of the left foot are obtained. There is no acute fracture or dislocation. There is narrowing of multiple interphalangeal joints. Small posterior calcaneal enthesophyte. Vascular calcifications are noted. Impression: 1. No acute fracture or dislocation. Tub Washer: PSCB Transcribe Date/Time: Jul 12 2021 9:33A Dictated by : FCO ARRIETA MD This examination was interpreted and the report reviewed and electronically signed by: FCO ARRIETA MD on Jul 12 2021 9:35AM [facility] DIVISION OF RADIOLOGY Provider, [facility] - 07/12/2021 * * *Final Report* * * DATE OF EXAM: Jul 12 2021 9:29AM WOX 5336 - XR FOOT 3V AP/LAT/OBL LT / PROCEDURE REASON: Foot pain, left * * * * Physician Interpretation * * * * Indication: Left foot pain after injury Comparison: X-ray left foot 10/12/2019 3 views of the left foot are obtained. There is no acute fracture or dislocation. There is narrowing of multiple interphalangeal joints. Small posterior calcaneal enthesophyte. Vascular calcifications are noted. Impression: 1. No acute fracture or dislocation. Tub Washer: LANA Transcribe Date/Time: Jul 12 2021 9:33A Dictated by : FCO ARRIETA MD This examination was interpreted and the report reviewed and electronically signed by: FCO ARRIETA MD on Jul 12 2021 9:35AM EST [facility] Radiology Study observation (narrative) [facility] XR Foot - left AP and Latera l and obliqueOrdered By: Ccf Provider on 07-12-2021 [facility] XR Chest PA and Lateralon IMPRESSION: Areas of atelectasis and/or fibrosis bilaterally are grossly stable. Cardiomegaly Tub Washer: LANA Transcribe Date/Time: Mar 19 2021 12:19P Dictated by : ALEXI MIR MD This examination was interpreted and the report reviewed and electronically signed by: ALEXI MIR MD on Mar 19 2021 12:20PM [facility] DIVISION OF RADIOLOGY * * *Final Report* * * DATE OF EXAM: Mar 19 2021 11:48AM WOX 5291 - XR CHEST 2V FRONTAL/LAT / PROCEDURE REASON: Cough * * * * Physician Interpretation * * * * EXAMINATION: CHEST RADIOGRAPH (2 VIEW FRONTAL & LATERAL) CLINICAL HISTORY: Cough MQ: [id number] EXAM DATE/TIME: 03/19/2021 11:48 AM COMPARISON: 11/24/2013 RESULT: Lines, tubes, and devices: Left cardiac pacer and leads is unchanged. Mediastinal wires are in place Lungs and pleura: No consolidation. No lung mass. No pleural effusion. No pneumothorax. Linear densities bilaterally in the mid and lower lung mitchell are stable. Likely atelectasis or fibrosis. Cardiomediastinal silhouette: Stable enlarged cardiomediastinal silhouette. Bones and soft tissues: Unremarkable. DIVISION OF RADIOLOGY Provider, [facility] - 03/19/2021 * * *Final Report* * * DATE OF EXAM: Mar 19 2021 11:48AM WOX 5291 - XR CHEST 2V FRONTAL/LAT / PROCEDURE REASON: Cough * * * * Physician Interpretation * * * * EXAMINATION: CHEST RADIOGRAPH (2 VIEW FRONTAL & LATERAL) CLINICAL HISTORY: Cough MQ: [id number] EXAM DATE/TIME: 03/19/2021 11:48 AM COMPARISON: 11/24/2013 RESULT: Lines, tubes, and devices: Left cardiac pacer and leads is unchanged. Mediastinal wires are in place Lungs and pleura: No consolidation. No lung mass. No pleural effusion. No pneumothorax. Linear densities bilaterally in the mid and lower lung mitchell are stable. Likely atelectasis or fibrosis. Cardiomediastinal silhouette: Stable enlarged cardiomediastinal silhouette. Bones and soft tissues: Unremarkable. IMPRESSION IMPRESSION: Areas of atelectasis and/or fibrosis bilaterally are grossly stable. Cardiomegaly Tub Washer: PSCB Transcribe Date/Time: Mar 19 2021 12:19P Dictated by : ALEXI MIR MD This examination was interpreted and the report reviewed and electronically signed by: ALEXI MIR MD on Mar 19 2021 12:20PM EST [facility] Radiology Study observation (narrative) [facility] XR Chest PA and LateralOrder ed By: Ccf Provider on 03-19-2021 [facility] Office Visit: c-scopeon 03-10 Documentation of current medications (procedure) Done Invalid Interpretation Code [facility] Work Phone: Fall risk assessment No Invalid Interpretation Code [facility] Work Phone: Tobacco smoking status NHIS Never Invalid Interpretation Code [facility] Work Phone: Tobacco use HS Former smoker Invalid Interpretation Code [facility] Work Phone: Vital Signs Date Time Vital Sign Value Performing Clinician Facility 01-10-2025 11:42-0400 Body mass index (BMI) [Ratio] 27.44 kg/m2 George Mata MD Work Phone: [facility] 01-10-2025 11:42-0400 Body weight 80.9 kg George Mata MD Work Phone: [facility] 01-10-2025 11:42-0400 Diastolic blood pressure 62 mm[Hg] George Mata MD Work Phone: [facility] 01-10-2025 11:42-0400 Heart rate 68 /min George Mata MD Work Phone: [facility] 01-10-2025 11:42-0400 SaO2% (BldA) [Mass fraction] 98 % George Mata MD Work Phone: [facility] 01-10-2025 11:42-0400 Systolic blood pressure 110 mm[Hg] George Mata MD Work Phone: [facility] 11-01-2024 08:53-0400 Body mass index (BMI) [Ratio] 26.86 kg/m2 George Mata MD Work Phone: [facility] 11-01-2024 08:53-0400 Body temperature 98.01 [degF] George Mata MD Work Phone: [facility] 11-01-2024 08:53-0400 Body weight 79.2 kg George Mata MD Work Phone: [facility] 11-01-2024 08:53-0400 Diastolic blood pressure 60 mm[Hg] George Mata MD Work Phone: [facility] 11-01-2024 08:53-0400 Heart rate 68 /min George Mata MD Work Phone: [facility] 11-01-2024 08:53-0400 Respiratory rate 20 /min George Mata MD Work Phone: [facility] 11-01-2024 08:53-0400 Systolic blood pressure 106 mm[Hg] George Mata MD Work Phone: [facility] 08-09-2024 10:01-0500 Body height 171.7 cm George Mata MD Work Phone: [facility] 08-09-2024 10:01-0500 Body mass index (BMI) [Ratio] 27.75 kg/m2 George Mata MD Work Phone: [facility] 08-09-2024 10:01-0500 Body temperature 97.2 [degF] George Mata MD Work Phone: [facility] 08-09-2024 10:01-0500 Body weight 81.8 kg George Mata MD Work Phone: [facility] 08-09-2024 10:01-0500 Diastolic blood pressure 68 mm[Hg] George Mata MD Work Phone: [facility] 08-09-2024 10:01-0500 Heart rate 72 /min George Mata MD Work Phone: [facility] 08-09-2024 10:01-0500 Respiratory rate 24 /min George Mata MD Work Phone: [facility] 08-09-2024 10:01-0500 SaO2% (BldA) [Mass fraction] 97 % George Mata MD Work Phone: [facility] 08-09-2024 10:01-0500 Systolic blood pressure 112 mm[Hg] George Mata MD Work Phone: [facility] 03-09-2024 14:25-0400 Body mass index (BMI) [Ratio] 26.59 kg/m2 George Mata MD Work Phone: [facility] 03-09-2024 14:25-0400 Body temperature 97.11 [degF] George Mata MD Work Phone: [facility] 03-09-2024 14:25-0400 Body weight 80.74 kg George Mata MD Work Phone: [facility] 03-09-2024 14:25-0400 Diastolic blood pressure 62 mm[Hg] George Mata MD Work Phone: [facility] 03-09-2024 14:25-0400 Heart rate 64 /min George Mata MD Work Phone: [facility] 03-09-2024 14:25-0400 Respiratory rate 18 /min George Mata MD Work Phone: [facility] 03-09-2024 14:25-0400 Systolic blood pressure 104 mm[Hg] George Mata MD Work Phone: [facility] 11-10-2023 11:39-0400 Body temperature 96.91 [degF] George Mata MD Work Phone: [facility] 11-10-2023 11:39-0400 Body weight 80.74 kg George Mata MD Work Phone: [facility] 11-10-2023 11:39-0400 Diastolic blood pressure 64 mm[Hg] George Mata MD Work Phone: [facility] 11-10-2023 11:39-0400 Heart rate 64 /min George Mata MD Work Phone: [facility] 11-10-2023 11:39-0400 Respiratory rate 18 /min George Mata MD Work Phone: [facility] 11-10-2023 11:39-0400 Systolic blood pressure 108 mm[Hg] George Mata MD Work Phone: [facility] 01-23-2023 09:00-0400 Body weight 81.19 kg George Mata MD Work Phone: [facility] 01-23-2023 09:00-0400 Diastolic blood pressure 60 mm[Hg] George Mata MD Work Phone: [facility] 01-23-2023 09:00-0400 Heart rate 70 /min George Mata MD Work Phone: [facility] 01-23-2023 09:00-0400 SaO2% (BldA) [Mass fraction] 98 % George Mata MD Work Phone: [facility] 01-23-2023 09:00-0400 Systolic blood pressure 110 mm[Hg] George Mata MD Work Phone: [facility] 07-24-2022 13:08-0500 Body height 174.2 cm George Mata MD Work Phone: [facility] 07-24-2022 13:08-0500 Body temperature 97.3 [degF] George Mata MD Work Phone: [facility] 07-24-2022 13:08-0500 Body weight 80.74 kg George Mata MD Work Phone: [facility] 07-24-2022 13:08-0500 Diastolic blood pressure 58 mm[Hg] George Mata MD Work Phone: [facility] 07-24-2022 13:08-0500 Heart rate 68 /min George Mata MD Work Phone: [facility] 07-24-2022 13:08-0500 Respiratory rate 16 /min George Mata MD Work Phone: [facility] 07-24-2022 13:08-0500 Systolic blood pressure 114 mm[Hg] George Mata MD Work Phone: [facility] 10-24-2021 13:45-0400 diastolic 63 mm[Hg] DEANA SIDDIQI MD [facility] 10-24-2021 13:45-0400 Heart rate 70 /min DEANA SIDDIQI MD [facility] 10-24-2021 13:45-0400 Respiratory rate 16 /min DEANA SIDDIQI MD [facility] 10-24-2021 13:45-0400 systolic 99 mm[Hg] DEANA SIDDIQI MD [facility] 10-24-2021 11:15-0400 diastolic 70 mm[Hg] DEANA SIDDIQI MD [facility] 10-24-2021 11:15-0400 Heart rate 72 /min DEANA SIDDIQI MD [facility] 10-24-2021 11:15-0400 Respiratory rate 16 /min DEANA SIDDIQI MD [facility] 10-24-2021 11:15-0400 systolic 106 mm[Hg] DEANA SIDDIQI MD [address] [place] [address] 10-24-2021 08:39-0400 Body height 175.3 cm DEANA SIDDIQI MD [address] [place] [address] 10-24-2021 08:39-0400 Body temperature 98.06 [degF] DEANA SIDDIQI MD [address] [place] [address] 10-24-2021 08:39-0400 Body weight 86.7 kg DEANA SIDDIQI MD [address] [place] [address] 10-24-2021 08:39-0400 diastolic 60 mm[Hg] DEANA SIDDIQI MD [address] [place] [address] 10-24-2021 08:39-0400 Heart rate 70 /min DEANA SIDDIQI MD [address] [place] [address] 10-24-2021 08:39-0400 Respiratory rate 16 /min DEANA SIDDIQI MD [facility] 10-24-2021 08:39-0400 systolic 114 mm[Hg] DEANA SIDDIQI MD [address] [place] [address] 07-31-2021 11:12-0500 Heart rate 72 /min DR BRIONNA VALENTE MD [facility] 07-31-2021 11:12-0500 Reason For Taking VItal Signs DR BRIONNA VALENTE MD [facility] 07-31-2021 10:54-0500 Body temperature 98.24 [degF] DR BRIONNA VALENTE MD [facility] 07-31-2021 10:54-0500 Diastolic blood pressure 58 mm[Hg] DR BRIONNA VALENTE MD [facility] 07-31-2021 10:54-0500 Heart rate 72 /min DR BRIONNA VALENTE MD [facility] 07-31-2021 10:54-0500 Reason For Taking VItal Signs DR BRIONNA VALENTE MD [facility] 07-31-2021 10:54-0500 Respiratory rate 18 /min DR BRIONNA VALENTE MD [facility] 07-31-2021 10:54-0500 Systolic blood pressure 118 mm[Hg] DR BRIONNA VALENTE MD [facility] 07-31-2021 07:22-0500 Heart rate 72 /min DR BRIONNA VALENTE MD [facility] 07-31-2021 07:19-0500 Body temperature 98.24 [degF] DR BRIONNA VALENTE MD [facility] 07-31-2021 07:19-0500 Diastolic blood pressure 70 mm[Hg] DR BRIONNA VALENTE MD [facility] 07-31-2021 07:19-0500 Mean blood pressure 83 mm[Hg] DR BRIONNA VALENTE MD [facility] 07-31-2021 07:19-0500 Reason For Taking VItal Signs DR BRIONNA VALENTE MD [facility] 07-31-2021 07:19-0500 Respiratory rate 18 /min DR BRIONNA VALENTE MD [facility] 07-31-2021 07:19-0500 Systolic blood pressure 110 mm[Hg] DR BRIONNA VALENTE MD [facility] 07-31-2021 07:02-0500 Heart rate 74 /min DR BRIONNA VALENTE MD [facility] 07-31-2021 07:02-0500 Respiratory rate 18 /min DR BRIONNA VALENTE MD [facility] 07-31-2021 04:33-0500 Body temperature 97.88 [degF] DR BRIONNA VALENTE MD [facility] 07-31-2021 04:33-0500 Diastolic blood pressure 76 mm[Hg] DR BRIONNA VALENTE MD [facility] 07-31-2021 04:33-0500 Mean blood pressure 85 mm[Hg] DR BRIONNA VALENTE MD [facility] 07-31-2021 04:33-0500 Systolic blood pressure 104 mm[Hg] DR BRIONNA VALENTE MD [facility] 07-30-2021 19:35-0500 Heart rate 72 /min DR BRIONNA VALENTE MD [facility] 07-30-2021 16:33-0500 Diastolic Blood Pressure NBP [address] BRIONNA VALENTE MD [facility] 07-30-2021 16:33-0500 Heart rate 71 /min DR BRIONNA VALENTE MD [facility] 07-30-2021 16:33-0500 Mean blood pressure 68 mm[Hg] DR BRIONNA VALENTE MD [facility] 07-30-2021 16:33-0500 Systolic Blood Pressure NBP [address] BRIONNA VALENTE MD [facility] 07-30-2021 14:55-0500 Mean blood pressure 80 mm[Hg] DR BRIONNA VALENTE MD [facility] 07-30-2021 13:40-0500 Heart rate 70 /min DR BRIONNA VALENTE MD [facility] 07-30-2021 10:59-0500 Diastolic Blood Pressure NBP [address] BRIONNA VALENTE MD [facility] 07-30-2021 10:59-0500 Mean blood pressure 82 mm[Hg] DR BRIONNA VALENTE MD [facility] 07-30-2021 10:59-0500 Systolic Blood Pressure NBP [address] BRIONNA VALENTE MD [facility] 07-30-2021 08:52-0500 Diastolic Blood Pressure NBP [address] BRIONNA VALENTE MD [facility] 07-30-2021 08:52-0500 Mean blood pressure 85 mm[Hg] DR BRIONNA VALENTE MD [facility] 07-30-2021 08:52-0500 Systolic Blood Pressure NBP [address] BRIONNA VALENTE MD [facility] 07-30-2021 04:36-0500 Body temperature 96.26 [degF] DR BRIONNA VALENTE MD [facility] 07-30-2021 04:36-0500 SaO2% (BldA) [Mass fraction] 95.9 % DR BRIONNA VALENTE MD [facility] 07-25-2021 20:25-0500 Body height 175.[address] BRIONNA VALENTE MD [facility] 07-25-2021 20:25-0500 Body weight 79.[address] BRIONNA VALENTE MD [facility] 07-25-2021 20:25-0500 Body weight 25.94 kg/m2 DR BRIONNA VALENTE MD [facility] 07-25-2021 12:48-0500 Body weight 81.[address] BRIONNA VALENTE MD [facility] 03-25-2017 09:38-0400 BMI (Body Mass Index) 27.17 kg/m2 Kaveh Magallon MD [facility] Work Phone: 03-25-2017 09:38-0400 BP Diastolic 83 mm[Hg] Kaveh Magallon MD [facility] Work Phone: 03-25-2017 09:38-0400 BP Systolic 117 mm[Hg] Kaveh Magallon MD [facility] Work Phone: 03-25-2017 09:38-0400 Height 175.26 cm Kaveh Magallon MD [facility] Work Phone: 03-25-2017 09:38-0400 Pulse (Heart Rate) 70 /min Kaveh Magallon MD [facility] Work Phone: 03-25-2017 09:38-0400 Respiratory Rate 18 /min Kaveh Magallon MD [facility] Work Phone: 03-25-2017 09:38-0400 Weight 83.46 kg Kaveh Magallon MD [facility] Work Phone: Encounters Encounter Date Encounter Type Care Provider Facility Start: 02-28-2025 End: 02-28-2025 Telephone encounter Jonathan Hawkins [facility] Ambulatory Telemanagement Comment on above: Anticoagulation Tele phone Fu (Home INR result) Start: 02-24-2025 End: 02-24-2025 ambulatory VERONIQUE TOUSSAINT MD Facility:A Start: 02-24-2025 End: 02-24-2025 SAME DAY STAY VERONIQUE TOUSSAINT MD [facility] Start: 02-21-2025 End: 02-21-2025 Telephone encounter Jonathan Hawkins [facility] Comment on above: Anticoagulation Tele phone Fu (Home INR result) Start: 02-14-2025 End: 02-14-2025 Telephone encounter Jonathan Hawkins [facility] Comment on above: Anticoagulation Tele phone Fu (Home INR result) Start: 02-13-2025 End: 02-13-2025 Admission to establishment VERONIQUE TOUSSAINT MD [facility] Start: 02-13-2025 End: 02-13-2025 ambulatory VERONIQUE TOUSSAINT MD Facility:A Start: 02-09-2025 ambulatory VERONIQUE TOUSSAINT MD [facility] ility:A Start: 02-07-2025 End: 02-07-2025 Telephone encounter Jonathan Ross [facility] Comment on above: Anticoagulation Tele phone Fu (Home INR result) Start: 01-31-2025 End: 01-31-2025 Telephone encounter Jonathan Hawkins [facility] Comment on above: Anticoagulation Tele phone Fu (Home INR result) Start: 01-30-2025 End: 01-30-2025 Telephone encounter George Mata MD Work Phone: Internal Medicine Day Comment on above: Patient Update Start: 01-24-2025 End: 01-24-2025 Telephone encounter Jonathan Hawkins [facility] Comment on above: Anticoagulation Tele phone Fu (Home INR result) Start: 01-17-2025 End: 01-17-2025 Telephone encounter Jonathan Hawkins [facility] Comment on above: Anticoagulation Tele phone Fu (Home INR result) Start: 01-10-2025 End: 01-10-2025 Telephone encounter Jonathan Hawkins [facility] Comment on above: Anticoagulation Tele phone Fu (Home INR result) Start: 01-10-2025 End: 01-10-2025 Patient encounter procedure George Mata MD Work Phone: Internal Medicine [place] Comment on above: Permanent atrial fib rillation (HCC) (Primary Dx); Chronic systolic heart failure (HCC); Interstitial lung disease (HCC); Controlled type 2 diabetes mellitus with stage 3 chronic kidney disease, without long-term current use of insulin (HCC); Essential hypertension Start: 01-10-2025 End: 01-10-2025 ambulatory GEORGE MATA Facility:[facility] Start: 01-09-2025 End: 01-09-[address] GEORGE MATA MD Facility:[facility] Start: 01-09-2025 End: 01-09-2025 Patient encounter procedure GATITO ROSE MD [facility] Start: 01-05-2025 End: 01-05-2025 Telephone encounter George Mata MD Work Phone: Internal Medicine [place] Comment on above: Patient Update Start: 12-31-2024 End: 01-04-2025 Evaluation and management of inpatient DR CARLOS RIDLEY MD [facility] Start: 12-26-2024 End: 12-26-2024 Telephone encounter [facility] Comment on above: Anticoagulation Tele phone Fu Start: 12-16-2024 End: 12-16-[address] George Mata MD Work Phone: [facility] Work Phone: Start: 12-16-2024 End: 12-16-[address] Mackenzie Iverson DO -Laboratory Work Phone: Start: 12-16-2024 End: 12-16-2024 ambulatory Mackenzie Iverson Facility:[facility] Start: 12-13-2024 End: 12-13-2024 Telephone encounter Jonathan Hawkins [facility] Comment on above: Anticoagulation Tele phone Fu (Home INR result) Start: 11-29-2024 End: 11-29-2024 Telephone encounter Jonathan Hawkins [facility] Comment on above: Anticoagulation Tele phone Fu (Home INR result) Start: 11-18-2024 End: 11-18-[address] GEORGE MATA MD Facility:A Start: 11-18-2024 End: 11-18-2024 Patient encounter procedure BRIONNA GANT MD [facility] Start: 11-17-2024 End: 11-17-2024 Refill George Mata MD Work Phone: Hematology/Oncology Comment on above: Refill Request; Open ed In Error Medication Request Start: 11-15-2024 End: 11-15-2024 Telephone encounter Elliott Gleason [facility] Comment on above: Anticoagulation Tele phone Fu (Home INR result ) Start: 11-01-2024 End: 11-01-2024 Telephone encounter Lian Coulter [facility] Comment on above: Anticoagulation Tele phone Fu (Home INR) Start: 11-01-2024 End: 11-01-2024 ambulatory GEORGE MATA Facility:[facility] Start: 11-01-2024 End: 11-01-2024 Patient encounter procedure George Mata MD Work Phone: Internal Medicine [place] Comment on above: Lumbosacral radiculo marina (Primary Dx); Encounter for immunization; Asthma, moderate persistent, well-controlled; Atherosclerosis of [place] coronary artery of [place] heart without angina pectoris; Controlled type 2 diabetes mellitus with stage 3 chronic kidney disease, without long-term current use of insulin (HCC); Chronic systolic heart failure (HCC); Anemia due to stage 3b chronic kidney disease (HCC) (HCC); Irritable bowel syndrome, unspecified type; Gout of foot, unspecified cause, unspecified chronicity, unspecified laterality Start: 10-18-2024 End: 10-18-2024 Telephone encounter Jonathan Hawkins [facility] Comment on above: Anticoagulation Tele phone Fu (Home INR result) Start: 10-17-2024 End: 10-17-[address] George Mata MD Work Phone: [facility] Work Phone: Start: 10-17-2024 End: 10-17-[address] Faizan Pierce MD -Cardiovascular Services Work Phone: Start: 10-17-2024 End: 10-17-2024 ambulatory George Mata Facility:[facility] Start: 10-04-2024 End: 10-04-2024 Telephone encounter Jonathan Hawkins [facility] Comment on above: Anticoagulation Tele phone Fu (Home INR result) Start: 10-04-2024 ambulatory Mackenzie Iverson Facility: [facility] Start: 09-20-2024 End: 09-20-2024 Telephone encounter Jonathan Hawkins [facility] Comment on above: Anticoagulation Tele phone Fu (Home INR result) Start: 09-13-2024 End: 09-16-2024 Telephone encounter George Mata MD Work Phone: Internal Medicine [place] Comment on above: Results (Labs/consul t nephrology ) Start: 09-06-2024 End: 09-06-2024 Telephone encounter Jonathan Hawkins [facility] Comment on above: Anticoagulation Tele phone Fu (Home INR result) Start: 09-06-2024 End: 09-06-2024 ambulatory GEORGE MATA Facility:[facility] Start: 08-23-2024 End: 08-23-2024 Telephone encounter Jonathan Hawkins [facility] Comment on above: Anticoagulation Tele phone Fu (Home INR result) Declined podiatry re ferral Start: 08-16-2024 End: 08-16-2024 Telephone encounter Jonathan Hawkins [facility] Comment on above: Anticoagulation Tele phone Fu (Home INR result) Start: 08-15-2024 End: 08-15-2024 Telephone encounter George Mata MD Work Phone: Internal Medicine [place] Comment on above: Results (xray) Start: 08-09-2024 End: 08-09-2024 Subsequent hospital visit by physician [facility] Work Phone: Radiology Comment on above: Acute cough [R05.1] Start: 08-09-2024 End: 08-09-2024 ambulatory GEORGE MATA Facility:[facility] Start: 08-09-2024 End: 08-09-2024 Patient encounter procedure George Mata MD Work Phone: Internal Medicine [place] Comment on above: Routine medical exam (Primary Dx); Pure hypercholesterolemia; Controlled type 2 diabetes mellitus with stage 3 chronic kidney disease, without long-term current use of insulin (HCC); Chronic systolic heart failure (HCC); Asthma, moderate persistent, well-controlled; Byers's esophagus with dysplasia; Irritable bowel syndrome, unspecified type; Anticoagulated on Coumadin ( home INR testing); Atherosclerosis of [place] coronary artery of [place] heart without angina pectoris; Essential hypertension; Acute cough; Chronic ankle pain, unspecified laterality; PVD (peripheral vascular disease) with claudication (HCC); Thrombocytopenia (HCC); Ventricular tachycardia (HCC); Interstitial lung disease (HCC) Start: 08-09-2024 End: 08-09-2024 Patient encounter status George Mata MD Work Phone: [facility] Start: 07-19-2024 End: 07-19-2024 Telephone encounter Jonathan Hawkins [facility] Comment on above: Anticoagulation Tele phone Fu (Home INR result) Start: 07-05-2024 End: 07-05-2024 Telephone encounter Lian Coulter [facility] Comment on above: Anticoagulation Tele phone Fu (Home INR) Start: 06-21-2024 End: 06-21-2024 Telephone encounter Jonathan Hawkins [facility] Comment on above: Anticoagulation Tele phone Fu (Home INR result) Start: 06-07-2024 End: 06-07-2024 Telephone encounter Jonathan Hawkins [facility] Comment on above: Anticoagulation Tele phone Fu (Home INR result) Start: 05-24-2024 End: 05-24-2024 Telephone encounter Jonathan Hawkins [facility] Comment on above: Anticoagulation Tele phone Fu (Home INR result) Start: 05-10-2024 End: 05-10-2024 Telephone encounter Elliott Gleason [facility] Comment on above: Anticoagulation Tele phone Fu (Home INR result ) Start: 04-26-2024 End: 04-26-2024 Telephone encounter Lian Coulter [facility] Comment on above: Anticoagulation Tele phone Fu (Home INR) Start: 04-12-2024 End: 04-12-2024 Telephone encounter Lian Coulter [facility] Comment on above: Anticoagulation Tele phone Fu (Home INR) Start: 03-29-2024 End: 03-29-2024 Telephone encounter Jonathan Hawkins [facility] Comment on above: Anticoagulation Tele phone Fu (Home INR result) Start: 03-16-2024 Refill George morris MD Work Phone: Internal Medicine [place] Comment on above: Refill Request Start: 03-15-2024 Telephone encounter Jordyn Tai [facility] Comment on above: Anticoagulation Tele phone Fu Start: 03-10-2024 ambulatory BRIONNA GANT MD Fac ility:A Start: 03-09-2024 End: 03-09-2024 ambulatory GEORGE MATA Facility:[facility] Start: 03-09-2024 End: 03-09-2024 Office outpatient visit 25 minutes George Mata MD Work Phone: Internal Medicine [place] Comment on above: Controlled type 2 di abetes mellitus with stage 3 chronic kidney disease, without long-term current use of insulin (HCC) (Primary Dx); Chronic systolic heart failure (HCC); Atherosclerosis of [place] coronary artery of [place] heart without angina pectoris; Pure hypercholesterolemia; Essential hypertension; Asthma, moderate persistent, well-controlled; Interstitial lung disease (HCC); Skin tear of left upper arm without complication, initial encounter; Screening for depression; Encounter for screening examination for other mental health and behavioral disorders Start: 03-08-2024 Telephone encounter Jonathan Hawkins [facility] Comment on above: Anticoagulation Tele phone Fu (Home INR result) Start: 03-01-2024 Telephone encounter Jonathan Hawkins [facility] Comment on above: Anticoagulation Tele phone Fu (Home INR result) Start: 02-17-2024 Telephone encounter Ruma Pur[facility] Comment on above: Anticoagulation Tele phone Fu (Home INR results ) Start: 02-02-2024 Telephone encounter Jonathan Hawkins [facility] Comment on above: Anticoagulation Tele phone Fu (Home INR result) Refill Request Start: 01-19-2024 Telephone encounter Jonathan Hawkins [facility] Comment on above: Anticoagulation Tele phone Fu (Home INR result) Start: 01-05-2024 Telephone encounter Jonathan Hawkins [facility] Comment on above: Anticoagulation Tele phone Fu (Home INR result) Start: 12-29-2023 End: 12-29-2023 ambulatory George Mata Facility:[facility] Start: 12-22-2023 Telephone encounter Jonathan Ross [facility] Comment on above: Anticoagulation Tele phone Fu (Home INR result) Start: 12-08-2023 Telephone encounter Jonathan Ross [facility] Comment on above: Anticoagulation Tele phone Fu (Home INR result) Start: 11-24-2023 Telephone encounter Lian Coulter [facility] Comment on above: Anticoagulation Tele phone Fu (Home INR) Start: 11-18-2023 End: 11-18-2023 ambulatory [facility] Work Phone: Start: 11-18-2023 End: 11-18-2023 Patient encounter procedure [facility]-Cat Scan, [facility] Work Phone: Start: 11-13-2023 Telephone encounter Pharmacist [facility] Comment on above: Anticoagulation Start: 11-10-2023 Telephone encounter Jonathan Ross [facility] Comment on above: Anticoagulation Tele phone Fu (Home INR result) Start: 11-10-2023 End: 11-10-2023 Patient encounter procedure George Mata MD Work Phone: Internal Medicine [place] Comment on above: Sinobronchitis (Prim juan pablo Dx); Irritable bowel syndrome, unspecified type; Asthma, moderate persistent, well-controlled Start: 10-27-2023 Telephone encounter Jonathan Ross [facility] Comment on above: Anticoagulation Tele phone Fu (Home INR result) Start: 10-13-2023 Telephone encounter Jonathan Ross [facility] Comment on above: Anticoagulation Tele phone Fu (Home INR result) Start: 09-29-2023 Telephone encounter Jonathan Ross [facility] Comment on above: Anticoagulation Tele phone Fu (Home INR result) Start: 09-15-2023 Telephone encounter Jonathan Ross [facility] Comment on above: Anticoagulation Tele phone Fu (Home INR result) Start: 07-07-2023 Telephone encounter Jonathan Ross [facility] Comment on above: Anticoagulation Tele phone Fu (Home INR result) Start: 06-23-2023 Telephone encounter Jonathan Hawkins [facility] Comment on above: Anticoagulation Tele phone Fu (Home INR result) Start: 06-17-2023 End: 06-17-2023 ambulatory [facility] Work Phone: Start: 06-17-2023 End: 06-17-2023 Patient encounter procedure [facility]-Cardiovascula r Services Work Phone: Start: 06-09-2023 Telephone encounter Jonathan Hawkins [facility] Comment on above: Anticoagulation Tele phone Fu (Home INR result) Start: 05-18-2023 Refill George morris MD Work Phone: Family Medicine Day Comment on above: Refill Request Start: 04-14-2023 Telephone encounter Jonathan Hawkins [facility] Comment on above: Anticoagulation Tele phone Fu (Home INR result) Start: 03-31-2023 Telephone encounter Jonathan Hawkins [facility] Comment on above: Anticoagulation Tele phone Fu (Home INR result) Start: 03-17-2023 Telephone encounter Jonathan Hawkins [facility] Comment on above: Anticoagulation Tele phone Fu Start: 03-05-2023 Telephone encounter George henning MD Work Phone: Internal Medicine [place] Comment on above: Medication Problem Start: 02-17-2023 Telephone encounter Jonathan Hawkins [facility] Comment on above: Anticoagulation Tele phone Fu (Home INR result) Start: 02-03-2023 Telephone encounter Lian Coulter [facility] Comment on above: Anticoagulation Tele phone Fu (Home INR) Start: 01-28-2023 Telephone encounter George henning MD Work Phone: Internal Medicine Day Comment on above: Results Start: 01-23-2023 End: 01-23-2023 Patient encounter procedure George Mata MD Work Phone: Internal Medicine Day Comment on above: Acute idiopathic gou t of foot, unspecified laterality (Primary Dx); Interstitial lung disease (HCC); Controlled type 2 diabetes mellitus with stage 3 chronic kidney disease, without long-term current use of insulin (HCC); Thrombocytopenia (HCC); Chronic systolic heart failure (HCC); Ventricular tachycardia (HCC) Start: 01-06-2023 Telephone encounter [facility]riesantony [facility] Comment on above: Anticoagulation Tele phone Fu (Home INR result) Start: 12-23-2022 Telephone encounter Jordyn Garcia [facility] Tele[facility] Comment on above: Anticoagulation Tele phone Fu (Home INR ) Start: 12-16-2022 End: 12-16-2022 Patient encounter procedure BRIONNA GANT MD [facility] Start: 12-09-2022 Telephone encounter Jonathan Humphriesantony [facility] Comment on above: Anticoagulation Tele phone Fu (Home INR result) Start: 10-28-2022 Telephone encounter Jonathan Humphriesantony [facility] Comment on above: Anticoagulation Tele phone Fu (Home INR result) Start: 09-30-2022 Telephone encounter Jonathan Hawkins [facility] Comment on above: Anticoagulation Tele phone Fu (Home INR result) Start: 09-16-2022 Telephone encounter Jonathan Hawkins [facility] Comment on above: Anticoagulation Tele phone Fu (Home INR) Start: 09-02-2022 Telephone encounter Jonathan Hawkins [facility] Comment on above: Anticoagulation Tele phone Fu (Home INR) Start: 08-22-2022 Telephone encounter George henning MD Work Phone: Internal Medicine Day Comment on above: Future Appointment; Orders (Lucie lab results from 08-12-22 faxed to Brionna Gant//[facility]/[address] [place] [address]/[id number]/[place] [id number]// // ) Start: 08-20-2022 Telephone encounter George henning MD Work Phone: Internal Medicine [place] Comment on above: Results Start: 08-19-2022 Telephone encounter Jonathan Ross [facility] Comment on above: Anticoagulation Tele phone Fu (Home INR) Start: 08-05-2022 Telephone encounter Jordyn Tai [facility] Comment on above: Anticoagulation Tele phone Fu (Home INR /) Medication Request Start: 07-26-2022 Telephone encounter George henning MD Work Phone: Internal Medicine Day Comment on above: Results Start: 07-24-2022 End: 07-24-2022 Patient encounter procedure George Mata MD Work Phone: Internal Medicine [place] Comment on above: Routine medical exam (Primary Dx); Asthma, moderate persistent, well-controlled; Pure hypercholesterolemia; Byers's esophagus with dysplasia; Interstitial lung disease (HCC); Atherosclerosis of [place] coronary artery of [place] heart without angina pectoris; Controlled type 2 diabetes mellitus with stage 3 chronic kidney disease, without long-term current use of insulin (HCC); Chronic systolic heart failure (HCC); PAD (peripheral artery disease) (HCC); Need for COVID-19 vaccine; Left knee pain, unspecified chronicity Start: 07-24-2022 End: 07-24-2022 Patient encounter status George Mata MD Work Phone: Internal Medicine [place] Start: 07-22-2022 Telephone encounter Jonathan Hawkins [facility] Tele[facility] Comment on above: Anticoagulation Tele phone Fu (Home INR) Start: 06-24-2022 Telephone encounter Jonathan Hawkins [facility] Comment on above: Anticoagulation Tele phone Fu (Home INR) Start: 06-19-2022 Refill George morirs MD Work Phone: Internal Medicine Day Comment on above: Refill Request Start: 06-10-2022 Telephone encounter Jonathan Hawkins [facility] Comment on above: Anticoagulation Tele phone Fu (Home INR) Start: 05-27-2022 Telephone encounter Lian Coulter [facility] Comment on above: Anticoagulation Tele phone Fu (Home INR result) Start: 05-19-2022 Telephone encounter George henning MD Work Phone: Internal Medicine Day Comment on above: Patient Request Start: 05-14-2022 Refill George morris MD Work Phone: Internal Medicine Day Comment on above: Refill Request Start: 05-13-2022 Telephone encounter Jonathan Hawkins [facility] Comment on above: Anticoagulation Tele phone Fu (Home INR) Start: 04-29-2022 Telephone encounter Jonathan Hawkins [facility] Comment on above: Anticoagulation Tele phone Fu (Home INR) Start: 04-21-2022 Telephone encounter George henning MD Work Phone: Internal Medicine Day Comment on above: Patient Question Start: 04-01-2022 Telephone encounter Jonathan Hawkins [facility] Comment on above: Anticoagulation Tele phone Fu (Home INR) Start: 03-18-2022 Telephone encounter Jonathan Hawkins [facility] Comment on above: Anticoagulation Tele phone Fu Start: 03-04-2022 Telephone encounter Jordyn Tai [facility] Telemanagement Comment on above: Anticoagulation Tele phone Fu (Home INR ) Start: 02-18-2022 Telephone encounter Jonathan Hawkins [facility] Comment on above: Anticoagulation Tele phone Fu (Home INR) Start: 02-04-2022 Telephone encounter Jonathan Hawkins [facility] Comment on above: Anticoagulation Tele phone Fu (Home INR) Start: 12-24-2021 Telephone encounter Jonathan Hawkins [facility] Comment on above: Anticoagulation Tele phone Fu (Home INR result) Start: 12-10-2021 Telephone encounter Roberth Howell [facility] Ambulatory Telemanagement Comment on above: Anticoagulation Tele phone Fu (Home INR Result) Start: 11-28-2021 Refill George morris MD Work Phone: Internal Medicine Day Comment on above: Refill Request Start: 11-28-2021 End: 11-25-2022 Lab-Standing Order DIOR CONWAY APRN-TURBOGENERATOR OPERATOR [facility] Start: 11-06-2021 End: 11-06-2021 Patient encounter procedure Jb2 Echocardiogram Work Phone: Cardiology Comment on above: Chronic systolic hea rt failure (HCC) Start: 11-05-2021 Telephone encounter Jonathan Hawkins [facility] Ambulatory Telemanagement Comment on above: Anticoagulation Tele phone Fu (Home INR result) Start: 10-24-2021 End: 10-24-2021 SAME DAY STAY DEANA SIDDIQI MD [facility] Start: 10-16-2021 End: 10-16-2021 Patient encounter procedure SHAINA DELGADO MD [facility] Start: 10-16-2021 End: 10-16-2021 Patient encounter procedure DEANA SIDDIQI MD [facility] Start: 07-25-2021 End: 07-31-2021 Evaluation and management of inpatient DR BRIONNA VALENTE MD [facility] Start: 07-12-2021 End: 07-12-2021 Subsequent hospital visit by physician [facility] [employer] Work Phone: Radiology Comment on above: Foot pain, left [M79 .672] Start: 03-19-2021 End: 03-19-2021 Subsequent hospital visit by physician [facility] Work Phone: Radiology Comment on above: Cough [R05] Procedures Date Procedure Procedure Detail Performing Clinician Start: 12-16-[address] Skylar Mata MD Work Phone: Start: 12-16-[address] George Mata MD Work Phone: Start: 12-16-2024 Vitamin D, 25-hydroxy measurement Dr. Lucy Mata MD Work Phone: Comment on above: Vitamin D StatusDeficiency: <20 ng/mL (5 0nmol/L)Insufficiency: 20-30 ng/mL (50-75 nmol/L)Sufficiency: 30-100 ng/mL (75-250 nmol/L)Toxicity: >100 ng/mL (>250 nmol/L) Start: 11-18-[address] CARLOS RIDLEY MD Comment on above: Summary: 1. Left ventricle: Systolic function is severely reduced. The estimated ejection fraction is 30%. Hypokinesis of the inferior myocardium. Hypokinesis of the inferoseptal myocardium. Hypokinesis of the apical anterolateral myocardium. Diastolic dysfunction present but unable to assess severity. 2. Aortic valve: A prosthetic valve (Franklin Amber) is present. The peak systolic velocity is 1.5 m/sec. The acceleration time is 71 ms. 3. Mitral valve: A bioprosthesis is present. The mean diastolic gradient is 3 mm Hg. 4. Left atrium: The atrium is severely dilated. 5. Right ventricle: The cavity size is increased. Systolic function is reduced. The RV systolic pressure by Doppler is 42 mm Hg. 6. Tricuspid valve: There is moderate regurgitation. 7. Right atrium: The atrium is dilated. The estimated right atrial pressure is 3 mm Hg. Start: 08-10-2024 Automatic defibrillator procedure VERONIQUE TOUSSAINT MD Comment on above: lead change G247 Vigilant DRT-D SN# [id number]. RA/LV leads from 2016. RV lead from 2012 Start: 08-09-2024 COVID & INFLUENZA A/B & RSV PCR, ROUTINE George Mata MD Work Phone: Start: 03-09-2024 Adult depression screening assessment George Mata MD Work Phone: Start: 11-18-2023 CT of lumbar spine Start: 12-16-2022 Echocardiography BRIONNA GANT MD Comment on above: Summary: 1. Left ventricle: The cavity size is normal. Wall thickness is mildly increased. Systolic function is moderately to severely reduced. The estimated ejection fraction is 35%. There is moderate diffuse hypokinesis. Diastolic dysfunction present but unable to assess severity. 2. Ventricular septum: Thickness is mildly increased. Septal motion is paradoxical. 3. Aortic valve: A prosthetic valve (Franklin Amber) is present. 4. Ascending aorta: The ascending aorta is borderline dilated and 36.0 mm diameter. 5. Mitral valve: A bioprosthesis is present. The mean diastolic gradient is 3 mm Hg @ HR of 91. The valve area by pressure half-time is 3.0 cm . 6. Left atrium: The atrium is moderately to severely dilated. 7. Right ventricle: Systolic function is reduced. The RV systolic pressure by Doppler is 57 mm Hg. 8. Tricuspid valve: There is mild-moderate regurgitation. 9. Right atrium: The atrium is mildly to moderately dilated. The estimated right atrial pressure is 8 mm Hg. Start: 07-24-2022 Fengxiafei COVID-19 BIVALENT BOOSTER VACCINE, AGE 12+ YR George Mata MD Work Phone: Start: 11-06-2021 Echo tthrc r-t 2d w/wom-mode compl spec&colr d Charissa Chowdhury APRN.TURBOGENERATOR OPERATOR Work Phone: Start: 11-05-2021 Prothrombin time [facility] Provider Start: 10-24-2021 Cardiac catheterization DIOR OCNWAY DIRECTOR OF ROOMS-[facility] Comment on above: Procedures performed: Right heart catheterization. SUMMARY: Mean right atrial pressure is 10 mmHg Right ventricular pressures 58/10 mmHg Pulmonary artery pressure is 58/20 mmHg, mean 33 mmHg Pulmonary capillary wedge pressure is 20 mmHg Blood pressure is 101/68, mean 79 Heart rate is 70 bpm Pulse ox is 100%, Hgb 13.6 g/dl Cardiac output is 5.2 L/min with a cardiac index of 2.6 L/min/m . TPG 13 RA:wedge 0.5 PA pulsatility index 3.8 PVR 2.5 SVR 1062 RECOMMENDATIONS: Normal cardiac output. Mildly elevated filling pressures. Will increase diuretic dose. Start: 07-29-2021 Cardiac catheterization DEANA SIDDIQI MD Comment on above: Procedures performed: ? Left coronary angiography. ? Right coronary angiography. ? Saphenous vein graft angiography. ? ORTIZ graft angiography. SUMMARY: 1. LAD: Proximal vessel lesion: There is a 100% chronic total occlusion. 2. Right posterior descending: Proximal vessel lesion: There is a 90% stenosis. IMPRESSIONS: Severe [place] CAD with patent ORTIZ to LAD / D1 and SVG to PDA. RECOMMENDATIONS: Treatment of VT. Procedures performed : Left coronary angiography. Right coronary angiography. Saphenous vein graft angiography. ORTIZ graft angiography. SUMMARY: 1. LAD: Proximal vessel lesion: There is a 100% chronic total occlusion. 2. Right posterior descending: Proximal vessel lesion: There is a 90% stenosis. IMPRESSIONS: Severe [place] CAD with patent ORTIZ to LAD / D1 and SVG to PDA. RECOMMENDATIONS: Treatment of VT. Start: 07-12-2021 Radex foot complete minimum 3 views Mai Lutz DIRECTOR OF ROOMS.TURBOGENERATOR OPERATOR Work Phone: Start: 03-19-2021 Radiologic exam chest 2 views Paola Francois Jac jeongrger DIRECTOR OF ROOMS.TURBOGENERATOR OPERATOR Work Phone: Start: 01-17-2021 Adult depression screening assessment Jonathan Hawkins [facility] Start: 04-13-2019 Tmvi w/prosthetic valve percutaneous approach DR BRIONNA VALENTE MD Comment on above: Attempted - Septal occluder placed Start: 02-12-2018 Percutaneous transluminal coronary angioplasty DR BRIONNA VALENTE MD Comment on above: x1 stent Start: 08-10-2017 Percutaneous replacement of aortic valve using fluoroscopic guidance DR BRIONNA VALENTE MD Start: 09-10-[address] BRIONNA BRYANT MD Comment on above: no change Start: 08-10-[address] ALEN VALENTE MD Comment on above: lead change Start: 05-17-2013 Insertion of intra-aortic balloon counterpulsation DR BRIONNA VALENTE MD Comment on above: removal of L atrial appendage, insertion TPW Start: 05-17-2013 Mitral valve prosthesis, device (physical object) DR BRIONNA VALENTE MD Comment on above: resternotomy, mitral valve replacement, insertion IABP, insertion TPW Start: 08-10-2012 Implantation of automatic cardiac defibrillator DR BRIONNA VALENTE MD Comment on above: upgraded to STOCK CHECKERER-d Start: 08-10-2008 Percutaneous transluminal coronary angioplasty DR BRIONNA VALENTE MD Comment on above: stent placement Start: 06-22-2007 End: 01-27-2019 History of coronary artery bypass grafting Postsurgical aortocoronary bypass status Jonathan Hawkins [facility] Start: 08-10-2006 Coronary artery bypass graft DR BRIONNA GRANADOS MD Comment on above: x4 Start: 08-10-1997 Entire ankle region (body structure) DR BRIONNA VALENTE MD Comment on above: surgery Start: 08-10-[address] BRIONNA VALENTE MD Start: 08-10-1970 Amputated finger (finding) DR BRIONNA NEIL MD Comment on above: correction: left 3rd left second Colonoscopy VERONIQUE TOUSSAINT MD Esophagogastroduodenoscopy F CATHY TOUSSAINT MD History of coronary artery bypass grafting History of coronary artery bypass graft( Confirmed ) DR BRIONNA VALENTE MD History of coronary artery bypass grafting Status post coronary artery bypass graft History of percutane ous transluminal coronary angioplasty DR CARLOS RIDLEY MD Plan of Treatment Date Care Activity Detail Author Start: 03-24-2026 Urine microalbumin profile [facility] Start: 01-10-2026 Annual PCP Team Chronic Disease Visit Annual PCP Team Chronic Disease Visit [facility] Start: 01-10-2026 BP Controlled (<130/80) BP Controlled (<130/80) [facility] Start: 01-10-2026 zzBP Controlled (<130/80) (Retired) zzBP Controlled (<130/80) (Retired) [facility] Start: 11-01-2025 Annual PCP Team Chronic Disease Visit Annual PCP Team Chronic Disease Visit [facility] Start: 11-01-2025 BP Controlled (<130/80) BP Controlled (<130/80) [facility] Start: 09-06-2025 Complete blood count Hemoglobin/Hematocrit [facility] Start: 09-06-2025 Creatinine measurement Serum Creatinine [facility] Start: 09-06-2025 Hepatitis B surface antibody level LDL Cholesterol [facility] Start: 08-09-2025 Annual PCP Team Chronic Disease Visit Annual PCP Team Chronic Disease Visit [facility] Start: 08-09-2025 BP Controlled (<130/80) BP Controlled (<130/80) [facility] Start: 08-09-2025 Diabetic foot examination Diabetic Foot Exam [facility] Start: 07-12-2025 End: 07-12-2025 Patient encounter procedure 07/12/2025 1:40 PM EST Office Visit [facility] [address] [place] [address] George Mata MD [address] [place] [address] Yearly w/ month follow-up [facility] Comment on above: Yearly w/ month follow-up Start: 04-10-2025 Influenza vaccination Influenza Vaccine (#1) [facility] Start: 03-09-2025 Annual PCP Team Chronic Disease Visit Annual PCP Team Chronic Disease Visit [facility] Start: 03-09-2025 Anxiety Screening Anxiety Screening [facility] Start: 03-09-2025 BP Controlled (<130/80) BP Controlled (<130/80) [facility] Start: 03-09-2025 Depression Screening Depression Screening [facility] Start: 03-06-2025 Hemoglobin A1c measurement HbA1C [facility] Start: 02-01-2025 End: 02-01-2025 Patient encounter procedure 02/01/2025 10:20 AM EDT Office Visit [facility] [place] [address] [place] [address] George Mata MD [address] [place] [address] 3 month follow-up [facility] Comment on above: 3 month follow-up Start: 01-28-2025 Glaucoma screening Dilated Retinal Exam [facility] Start: 01-24-2025 Complete blood count Hemoglobin/Hematocrit [facility] Start: 01-24-2025 Creatinine measurement Serum Creatinine [facility] Start: 01-24-2025 Hepatitis B screening Urine Albumin:Creatinine Ratio [facility] Start: 01-16-2025 End: 04-17-2025 Basic metabolic 2000 panel - Serum or Plasma BASIC METABOLIC PANEL Lab Routine Controlled type 2 diabetes mellitus with stage 3 chronic kidney disease, without long-term current use of insulin (HCC) Expected: 01/16/2025, Expires: 04/17/2025 [facility] Comment on above: Expected: 01/16/2025, Expires: Start: 01-16-2025 End: 04-17-2025 CBC panel - Blood by Automated count COMPLETE BLOOD COUNT Lab Routine Anemia due to stage 3b chronic kidney disease (HCC) (HCC) Expected: 01/16/2025, Expires: 04/17/2025 [facility] Work Phone: Comment on above: Expected: 01/16/2025, Expires: Start: 01-16-2025 End: 04-17-2025 Hemoglobin A1c in Blood HEMOGLOBIN A1C Lab Routine Controlled type 2 diabetes mellitus with stage 3 chronic kidney disease, without long-term current use of insulin (HCC) Expected: 01/16/2025, Expires: 04/17/2025 [facility] Comment on above: Expected: 01/16/2025, Expires: Start: 01-16-2025 End: 04-17-2025 Urate [Mass/volume] in Serum or Plasma URIC ACID Lab Routine Gout of foot, unspecified cause, unspecified chronicity, unspecified laterality Expected: 01/16/2025, Expires: 04/17/2025 [facility] Comment on above: Expected: 01/16/2025, Expires: Start: 01-10-2025 End: 01-10-2025 Patient encounter procedure 01/10/2025 11:20 AM EDT Office Visit [facility] [place] [address] [place] [address] George Mata MD [address] [place], [place] [id number] Alex Muñoz F/U D/C 01/04/2025; Atrial Fibrillation [facility] Comment on above: Alex [place] F/U D/C 01/04/2025; Atria l Fibrillation Start: 11-09-2024 Annual PCP Team Chronic Disease Visit Annual PCP Team Chronic Disease Visit [facility] Start: 11-09-2024 BP Controlled (<130/80) BP Controlled (<130/80) [facility] Start: 11-01-2024 End: 11-01-2024 Patient encounter procedure 11/01/2024 9:00 AM EDT Office Visit [facility] [address] [facility] [place] [address] George Mata MD [address] [facility] [place], [place] [id number] 3 month follow-up [facility] Comment on above: 3 month follow-up Start: 10-31-2024 Covid-19 Vaccine () Covid-19 Vaccine () [facility] Start: 08-10-2024 Advance Directive Discussion Advance Directive Discussion [facility] Start: 08-10-2024 Medicare Advantage Annual Wellness Visit [facility] Annual Wellness Visit [facility] Start: 08-09-2024 End: 08-09-2024 Patient encounter procedure 08/09/2024 10:00 AM EST Office Visit [facility] [place] [address] [facility] [place] [address] George Mata MD [address] [facility] [place] [address] Yearly w/5 month follow-up [facility] Comment on above: Yearly w/5 month follow-up Start: 07-29-2024 Annual PCP Team Chronic Disease Visit Annual PCP Team Chronic Disease Visit [facility] Start: 07-29-2024 BP Controlled (<130/80) BP Controlled (<130/80) [facility] Start: 07-29-2024 Creatinine measurement Serum Creatinine [facility] Start: 07-29-2024 Diabetic foot examination Diabetic Foot Exam [facility] Start: 07-29-2024 Hepatitis B surface antibody level LDL Cholesterol [facility] Start: 07-27-2024 End: 07-27-2024 Patient encounter procedure 07/27/2024 10:20 AM EST Office Visit [facility] [address] [place] [address] George Mata MD [address] [place] [address] Yearly w/5 month follow-up [facility] Comment on above: Yearly w/5 month follow-up Start: 07-26-2024 Hemoglobin A1c measurement HbA1C [facility] Start: 07-11-2024 End: 10-10-2024 CBC panel - Blood by Automated count COMPLETE BLOOD COUNT Lab Routine Controlled type 2 diabetes mellitus with stage 3 chronic kidney disease, without long-term current use of insulin (HCC) Expected: 07/11/2024, Expires: 10/10/2024 [facility] Work Phone: Comment on above: Expected: 07/11/2024, Expires: Start: 07-11-2024 End: 10-10-2024 Comprehensive metabolic 2000 panel - Serum or Plasma COMPREHENSIVE METABOLIC PANEL Lab Routine Chronic systolic heart failure (HCC) Expected: 07/11/2024, Expires: 10/10/2024 [facility] Comment on above: Expected: 07/11/2024, Expires: Start: 07-11-2024 End: 10-10-2024 Hemoglobin A1c in Blood HEMOGLOBIN A1C Lab Routine Controlled type 2 diabetes mellitus with stage 3 chronic kidney disease, without long-term current use of insulin (HCC) Expected: 07/11/2024, Expires: 10/10/2024 [facility] Comment on above: Expected: 07/11/2024, Expires: Start: 07-11-2024 End: 10-10-2024 Lipid 1996 panel - Serum or Plasma LIPID PANEL BASIC Lab Routine Pure hypercholesterolemia Expected: 07/11/2024, Expires: 10/10/2024 [facility] Comment on above: Expected: 07/11/2024, Expires: Start: 04-10-2024 Covid-19 Vaccine (7 - 2023-24 season) Covid-19 Vaccine () [facility] Start: 04-10-2024 Covid-19 Vaccine () Covid-19 Vaccine () [facility] Start: 04-10-2024 Influenza vaccination Influenza Vaccine (#1) [facility] Start: 03-09-2024 End: 03-09-2024 Patient encounter procedure 03/09/2024 2:40 PM EDT Office Visit [facility] [place] [address] [facility] [place] [address] George Mata MD [address] [facility] [place], [place] [address] 6MTH FOLLOW UP [facility] [place] Comment on above: 6MTH FOLLOW UP Start: 02-24-2024 End: 02-24-2024 Patient encounter procedure 02/24/2024 11:20 AM EDT Office Visit [facility] [place] [address] [facility] [place] [address] Paola Blue, DIRECTOR OF ROOMS.TURBOGENERATOR OPERATOR [address] [place] [address] Follow up for refills [facility] Comment on above: Follow up for refills Start: 02-01-2024 End: 02-01-2024 Patient encounter procedure 02/01/2024 1:20 PM EDT Office Visit [facility] [place] [address] [facility] [place] [address] George Mata MD [address] [place] [address] 6 month follow-up [facility] Comment on above: 6 month follow-up Start: 01-28-2024 Hemoglobin A1c measurement HbA1C [facility] Start: 01-28-2024 End: 01-28-2024 Patient encounter procedure 01/28/2024 1:40 PM EDT Office Visit [facility] [place] [address] [place] [address] George Mata MD [address] [place] [address] 6 month follow-up [facility] Comment on above: 6 month follow-up Start: 01-24-2024 ANNUAL PCP TEAM CHRONIC DISEASE VISIT ANNUAL PCP TEAM CHRONIC DISEASE VISIT [facility] Start: 01-24-2024 BP CONTROLLED (<130/80) BP CONTROLLED (<130/80) [facility] Start: 01-24-2024 Complete blood count Hemoglobin/Hematocrit [facility] Start: 01-24-2024 HEMOGLOBIN/HEMATOCRIT HEMOGLOBIN/HEMATOCRIT [facility] Start: 01-24-2024 Hepatitis B screening URINE ALBUMIN:CREATININE RATIO [facility] Start: 01-24-2024 SERUM CREATININE SERUM CREATININE [facility] Start: 12-27-2023 Glaucoma screening Dilated Retinal Exam [facility] Start: 12-27-2023 Hepatitis C antibody, confirmatory test DILATED RETINAL EXAM [facility] Start: 11-28-2023 Covid-19 Vaccine () Covid-19 Vaccine () [facility] Start: 08-10-2023 Advance Directive Discussion Advance Directive Discussion [facility] Start: 08-10-2023 Behavioral Health Screening Behavioral Health Screening [facility] Start: 08-10-2023 Depression Assessment Depression Assessment [facility] Start: 07-25-2023 End: 09-24-2023 Comprehensive metabolic 2000 panel - Serum or Plasma COMP METABOLIC PANEL Lab Routine Controlled type 2 diabetes mellitus with stage 3 chronic kidney disease, without long-term current use of insulin (HCC) Expected: 07/25/2023, Expires: 09/24/2023 [facility] Work Phone: Comment on above: Expected: 07/25/2023, Expires: 4 Start: 07-25-2023 End: 09-24-2023 Hemoglobin A1c in Blood HGB A1C Lab Routine Controlled type 2 diabetes mellitus with stage 3 chronic kidney disease, without long-term current use of insulin (HCC) Expected: 07/25/2023, Expires: 09/24/2023 [facility] Work Phone: Comment on above: Expected: 07/25/2023, Expires: 4 Start: 07-25-2023 Hemoglobin A1c/Hemoglobin.total in Blood HBA1C [facility] Start: 07-25-2023 End: 09-24-2023 Lipid 1996 panel - Serum or Plasma LIPID PANEL BASIC Lab Routine Controlled type 2 diabetes mellitus with stage 3 chronic kidney disease, without long-term current use of insulin (HCC) Expected: 07/25/2023, Expires: 09/24/2023 [facility] Work Phone: Comment on above: Expected: 07/25/2023, Expires: 4 Start: 07-24-2023 3 comp foot exam completed DIABETIC FOOT EXAM [facility] Start: 07-24-2023 ANNUAL PCP TEAM CHRONIC DISEASE VISIT ANNUAL PCP TEAM CHRONIC DISEASE VISIT [facility] Start: 07-24-2023 BP CONTROLLED (<130/80) BP CONTROLLED (<130/80) [facility] Start: 07-24-2023 Hepatitis B screening URINE ALBUMIN:CREATININE RATIO [facility] Start: 07-24-2023 Hepatitis B surface antibody level LDL CHOLESTEROL [facility] Start: 07-24-2023 SERUM CREATININE SERUM CREATININE [facility] Start: 04-10-2023 Covid-19 Vaccine (2022- season) Covid-19 Vaccine () [facility] Start: 04-10-2023 Influenza vaccination [facility] Start: 01-23-2023 End: 03-25-2023 ALBUMIN/CREAT RATIO RND UR [facility] Work Phone: Comment on above: Expected: 01/23/2023, Expires: 3 Start: 01-23-2023 End: 03-25-2023 Basic metabolic 2000 panel - Serum or Plasma [facility] Work Phone: Comment on above: Expected: 01/23/2023, Expires: 3 Start: 01-23-2023 End: 03-25-2023 CBC panel - Blood by Automated count [facility] Work Phone: Comment on above: Expected: 01/23/2023, Expires: 3 Start: 01-23-2023 End: 03-25-2023 Hemoglobin A1c in Blood [facility] Work Phone: Comment on above: Expected: 01/23/2023, Expires: 3 Start: 01-23-2023 End: 03-25-2023 Urate [Mass/volume] in Serum or Plasma [facility] Work Phone: Comment on above: Expected: 01/23/2023, Expires: 3 Start: 01-22-2023 ANNUAL PCP TEAM CHRONIC DISEASE VISIT ANNUAL PCP TEAM CHRONIC DISEASE VISIT [facility] Start: 01-22-2023 BP CONTROLLED (<130/80) BP CONTROLLED (<130/80) [facility] Start: 01-22-2023 Hemoglobin A1c/Hemoglobin.total in Blood HBA1C [facility] Start: 01-22-2023 HEMOGLOBIN/HEMATOCRIT HEMOGLOBIN/HEMATOCRIT [facility] Start: 01-22-2023 Hepatitis B surface antibody level LDL CHOLESTEROL [facility] Start: 01-22-2023 SERUM CREATININE SERUM CREATININE [facility] Start: 11-22-2022 COVID-19 VACCINE (6 - Pfizer series) COVID-19 VACCINE (6 - Pfizer series) [facility] Start: 11-06-2022 BP CONTROLLED (<130/80) BP CONTROLLED (<130/80) [facility] Start: 09-23-2022 SERUM CREATININE SERUM CREATININE [facility] Start: 08-15-2022 ANNUAL PCP TEAM CHRONIC DISEASE VISIT ANNUAL PCP TEAM CHRONIC DISEASE VISIT [facility] Start: 08-15-2022 BP CONTROLLED (<130/80) BP CONTROLLED (<130/80) [facility] Start: 08-10-2022 ADVANCE DIRECTIVE DISCUSSION ADVANCE DIRECTIVE DISCUSSION [facility] Start: 08-10-2022 DEPRESSION ASSESSMENT DEPRESSION ASSESSMENT [facility] Start: 07-24-2022 Hemoglobin A1c/Hemoglobin.total in Blood HBA1C [facility] Start: 07-19-2022 3 comp foot exam completed DIABETIC FOOT EXAM [facility] Start: 07-19-2022 Hepatitis B screening URINE ALBUMIN:CREATININE RATIO [facility] Start: 07-12-2022 Hepatitis B surface antibody level LDL CHOLESTEROL [facility] Start: 04-10-2022 Influenza vaccination INFLUENZA (#1) [facility] Start: 03-19-2022 COVID-19 VACCINE (5 - Booster for Pfizer series) COVID-19 VACCINE (5 - Booster for Pfizer series) [facility] Start: 01-17-2022 Adult depression screening assessment DEPRESSION SCREENING [facility] Start: 01-10-2022 Hemoglobin A1c/Hemoglobin.total in Blood HBA1C [facility] Start: 2021 COVID-19 VACCINE (4 - Booster for Pfizer series) COVID-19 VACCINE (4 - Booster for Pfizer series) [facility] Start: 08-10-2021 ADVANCE DIRECTIVE DISCUSSION ADVANCE DIRECTIVE DISCUSSION [facility] Start: 08-10-2021 DEPRESSION ASSESSMENT DEPRESSION ASSESSMENT [facility] Start: 06-24-2020 Hepatitis C antibody, confirmatory test DILATED RETINAL EXAM [facility] Start: 04-03-2017 End: 04-03-2017 Appointment Appointment [facility] Work Phone: Start: 03-25-2017 End: 03-25-2017 Appointment Appointment [facility] Work Phone: Start: 03-25-2017 End: 03-25-2017 Diagnostic colonoscopy [facility] Work Phone: Start: 03-25-2017 End: 03-25-2017 Uppr gi endoscopy, diagnosis EGD; diagnostic [facility] Work Phone: Start: 07-19-2012 SHINGRIX VACCINE (2 of 3) SHINGRIX VACCINE (2 of 3) [facility] Start: 2004 Hepatitis B Vaccine (1 of 3 - Risk 3-dose series) Hepatitis B Vaccine (1 of 3 - Risk 3-dose series) [facility] Start: 2004 RSV Vaccine (1 - 1-dose 60+ series) RSV Vaccine (1 - 1-dose 60+ series) [facility] Start: 1962 Anxiety Screening Anxiety Screening [facility] Start: 1962 Depression Screening Depression Screening [facility] End: 07-24-2023 PVR ANK PRESS [facility] PVR ANK PRESS [facility] Lab Routine PAD (peripheral artery disease) (HCC) 1 Occurrences starting 07/24/2022 until 07/24/2023 [facility] Work Phone: Comment on above: 1 Occurrences starting 07/24/2022 until 07/24/2023 XR Chest PA and Lateral XR CHEST 2V FRONTAL/LAT Radiology Routine Acute cough 08/09/2024 11:45 AM EST [facility] Work Phone: End: 09-08-2025 XR Chest PA and Lateral XR CHEST 2V FRONTAL/LAT Radiology Routine Acute cough 1 Occurrences starting 08/09/2024 until 09/08/2025 [facility] Work Phone: Comment on above: 1 Occurrences starting 08/09/2024 until 09/08/2025 [facility] Immunizations Immunization Date Immunization Notes Care Provider Fa carl 05-03-2024 influenza virus vacc ine, unspecified formulation Jonathan Hawkins [facility] 07-29-2023 COVID-19 vaccine, ag e 12+ yr, season ([employer], 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[employer]) Jonathan Hawkins [facility] 05-13-2023 influenza (HD-IIV4) vaccine, age 65+ yr, high dose, quadrivalent, PF (FLUZONE HIGH-DOSE) Jonathan Hawkins [facility] Work Phone: 05-13-2023 respiratory syncytia l virus (RSV) vaccine, bivalent (ABRYSVO) Jonathan Hawkins [facility] Work Phone: 05-13-2023 influenza virus vacc ine, unspecified formulation Ruma Daltonyobany [facility] 07-24-2022 COVID-19 booster vaccine, age 12+ yr, bivalent (PFIZER-BIONTECH) George Mata MD Work Phone: [facility] Work Phone: 04-09-2022 influenza, high-dose , quadrivalent vaccine (FLUZONE HIGH DOSE QUADRIVALENT) George Mata MD Work Phone: [facility] Work Phone: 04-09-2022 influenza virus vacc ine, unspecified formulation George Mata MD Work Phone: [facility] 01-22-2022 COVID-19 vaccine, ag e 12+ yr ([employer], 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[employer] - FRANCIS [employer]) Jonathan Hawkins [facility] Work Phone: 07-19-2021 pneumococcal polysaccharide vaccine, [address] BRIONNA VALENTE MD [facility] 06-05-2021 influenza (aIIV4) vaccine, age 65+ yr, quadrivalent, PF (FLUAD QUADRIVALENT) Jonathan Humphriesantony [facility] Work Phone: 06-05-2021 influenza virus vacc ine, unspecified formulation DR BRIONNA VALENTE MD [facility] 11-01-2020 SARS-CoV-2 mRNA (tozinameran) vaccine DR BRIONNA VALENTE MD [facility] 10-11-2020 SARS-CoV-2 mRNA (tozinameran) vaccine DR BRIONNA VALENTE MD [facility] Comment on above: Result Comment: 2020: [id number] 04-20-2020 influenza, high dose seasonal, preservative-free [facility]: 05-10-2019 influenza, high dose seasonal, preservative-free [facility]: 04-07-2018 influenza, seasonal, injectable [facility] Work Phone: 05-10-2017 influenza, injectabl e, quadrivalent, preservative free [facility] 04-22-2017 influenza, seasonal, injectable [facility]: 04-18-2016 influenza, injectabl e, quadrivalent, contains preservative Jonathan [facility] 03-24-2016 tetanus toxoid, redu delano diphtheria toxoid, and acellular pertussis vaccine, adsorbed DR BRIONNA VALENTE MD [facility] 03-12-2016 pneumococcal polysaccharide vaccine, 23 valent Jonathan Begany [facility] 05-23-2015 influenza, high dose seasonal, preservative-free Jonathan Begany [facility] Work Phone: 02-21-2015 pneumococcal conjuga te vaccine, 13 valent Jonathan Begany [facility] 12-08-2014 pneumococcal polysaccharide vaccine, 23 valent [facility] 05-15-2014 influenza, seasonal, injectable Jonathan Begany [facility] 06-10-2013 pneumococcal polysaccharide vaccine, [address] BRIONNA VALENTE MD [facility] 05-10-2013 influenza virus vacc ine, unspecified formulation Jonathan Begany [facility] 05-24-2012 influenza virus vacc ine, unspecified formulation Jonathan Begany [facility] Work Phone: 05-24-2012 zoster vaccine, live Jonathan Begany [facility] Work Phone: 06-02-2011 influenza virus vacc ine, unspecified formulation Jonathan Begany [facility] Work Phone: 05-09-2009 influenza virus vacc ine, unspecified formulation Jonathan Begany [facility] Work Phone: 04-11-2008 pneumococcal polysaccharide vaccine, 23 valent Jonathan Begany [facility] Work Phone: 07-28-2007 tetanus and diphther ia toxoids, adsorbed, preservative free, for adult use (2 Lf of tetanus toxoid and 2 Lf of diphtheria toxoid) Jonathan Begany [facility] 06-22-2007 influenza virus vacc ine, unspecified formulation Jonathan Begany [facility] 06-25-2006 influenza virus vacc ine, unspecified formulation Jonathan Begany [facility] Payers Date Payer Category Payer Medicare [id number] 2024 Medicare [id number] 2023 Self-pay [id number] 2022 Private Health Insurance [id number] 2020 Medicare (Managed Care) PRIMETIM E [id number] 2020 Unknown PRIMETIME PRIMET DEIDRA HMO POS [id number] 2020-Present [phone] [address] [place] [id number] O [id number] 2016 Unknown [id number] 2016 Unknown [id number] 1944 Unknown [id number] [id number]. 2. 1945 Unknown [id number]. 2. 1945 Unknown [id number] [id number]. 2. 1945 Unknown [id number]. 2. 1945 Unknown [id number]. [id number] 1944 Unknown [id number]. [id number] 1944 Unknown [id number] [id number] Unknown [id number]. [id number] Unknown [id number] [id number]. [id number] Unknown [id number] [id number] [id number] Unknown [id number] [id number] Social History Date Type Detail Facility Start: 07-25-2021 End: 07-24-2022 Ex-smoker (finding) [facility] Start: 1945 Sex Assigned At Male A [facility] End: 08-10-1969 History of tobacco use Current smoker [facility] Work Phone: End: 08-10-1969 History of tobacco use Pipe Smoker [facility] Work Phone: Start: 09-02-2011 End: 07-24-2022 Tobacco use and exposure User of smokeless tobacco [facility] Work Phone: History of tobacco use Snuff User [facility] Work Phone: Start: 08-15-2021 End: 11-01-2024 Alcohol intake Current non-drinker of alcohol (finding) [facility] Start: 01-17-2021 History SDOH Stress 1 [facility] Start: 06-22-2007 End: 07-24-2022 Tobacco Comment Chews tobacco 2 boxes per week since . [facility] Start: 1945 Sex Assigned At Not on file [facility] Start: 02-17-2021 End: 01-22-2022 Exposure to SARS-CoV-2 (event) Not sure [facility] Start: 01-17-2021 End: 01-23-2023 History of Social function [facility] Work Phone: Start: 01-17-2021 End: 01-23-2023 Tobacco use panel [facility] Work Phone: Adult Depression Screening Assessment 0 [facility] Work Phone: Do you feel stress - tense, restless, nervous, or anxious, or unable to sleep at night because your mind is troubled all the time - these days [OSQ] Not at all [facility] Work Phone: Start: 05-02-2021 End: 05-02-2021 Tobacco smoking status NHIS Unknown if ever smoked [facility] Start: 12-13-2017 None [facility] Start: 12-13-2017 Spouse/ Signif icant Other [facility] Start: 12-13-2017 Cigarettes [facility] Start: 07-04-2019 End: 10-26-2024 Sex Male (finding) [facility] Tobacco Nicotine Use: 47 years ago. [facility] Comment on above: 47 years ago Sexual Orientation [facility] Medical Equipment Procedure Code Equipment Code Equipment Origin al Text Equipment Identifier Dates Test blood sugar(s) one times daily. Dx: Type 2 DM - Controlled E11.9 Insulin: No [id number] Start: 09-09-2017 Comment on above: Test blood sugar(s) one times daily. Dx: Type 2 DM - Controlled E11.9 Insulin: No Functional Status Date Assessment Result Facility 08-24-2018 Are you deaf, or do you have serious difficulty hearing No 08/24/2018 10:25 AM George Parra MD No [facility] 08-24-2018 Are you blind, or do you have serious difficulty seeing, even when wearing glasses No 08/24/2018 10:25 AM George Parra MD No [facility] 08-24-2018 Do you have serious difficulty walking or climbing stairs No 08/24/2018 10:25 AM George Parra MD No [facility] 08-24-2018 Do you have difficul ty dressing or bathing No 08/24/2018 10:25 AM George Parra MD No [facility] 08-24-2018 Because of a physica l, mental, or emotional condition, do you have difficulty doing errands alone such as visiting a physician's office or shopping No 08/24/2018 10:25 AM George Parra MD No [facility] Mental Status Date Assessment Result Facility 08-24-2018 Because of a physica l, mental, or emotional condition, do you have serious difficulty concentrating, remembering, or making decisions No 08/24/2018 10:25 AM George Parra MD No [facility] Clinical Notes 01-29-2019 to 02-28-2025 Telephone Encounter - Jonathan Hawkins [facility] - 02/28/2025 8:12 AM EDTTelephone Encounter - Jonathan Hawkins [facility] - 02/28/2025 8:12 AM EDT Note Date & Type Note Facility 02-28-2025 Telephone encounter Note [facility] Anticoagulation Episode Summary Anticoagulation Care Providers Provider Role Specialty Phone number George Mata MD [facility] Internal Medicine [phone] Bessy Valverde is a 79 year old year old male patient being evaluated today for a Telemanagement visit. Patient is currently on the following anticoagulant(s) Warfarin. Labs Lab Results Component Value Date INR 2.0 02/28/2025 INR 4.0 (A) 02/21/2025 INR 3.0 02/14/2025 Lab Results Component Value Date HB 11.3 (L) 09/06/2024 HB 12.2 (L) 01/25/2024 HB 12.0 (L) 01/23/2023 Lab Results Component Value Date HCT 33.9 (L) 09/06/2024 HCT 37.8 (L) 01/25/2024 HCT 37.4 (L) 01/23/2023 Lab Results Component Value Date PLT 141 (L) 09/06/2024 PLT 125 (L) 01/25/2024 PLT 128 (L) 01/23/2023 Lab Results Component Value Date CREAT 1.66 (H) 09/06/2024 CREAT 1.30 (H) 01/25/2024 CREAT 1.35 (H) 07/29/2023 No components found for: [id number] Lab Results Component Value Date ALT 15 09/06/2024 ALT 20 01/25/2024 ALT 19 07/29/2023 Lab Results Component Value Date AST 21 09/06/2024 AST 24 01/25/2024 AST 27 07/29/2023 Estimated Creatinine Clearance: 33.9 mL/min (A) (based on SCr of 1.66 mg/dL (H)). ALLERGIES No Known Allergies Indication for Warfarin: Anticoagulation Episode Summary Current INR goal: 2.0-3.0 Assessment: INR result of 2.0 is therapeutic Plan: Current Warfarin Dosing As of 02/28/2025 Full warfarin instructions: 5 mg every Mon, Fri; 2.5 mg all other days Called and spoke to patient/caregiver Advised patient to continue current weekly dose as noted above Next home INR check scheduled on 03/14/2025 Patient verbalizes understanding of the plan. Patient advised to call the PAC with any medication changes, bleeding/bruising concerns, recent changes in vitamin k consumption, if any procedures are coming up, if they have been ill or in the hospital, and if they have missed any doses of warfarin. Jonathan Hawkins RPh Clinical Pharmacist, Pharmacy Anticoagulation Clinic Pharm[facility] Pager: [phone]. [facility] 02-28-2025 Miscellaneous Notes [facility] Anticoagulation Episode Summary Anticoagulation Care Providers Provider Role Specialty Phone number George Mata MD [facility] Internal Medicine [phone] Bessy Valverde is a 79 year old year old male patient being evaluated today for a Telemanagement visit. Patient is currently on the following anticoagulant(s) Warfarin. Labs Lab Results Component Value Date INR 2.0 02/28/2025 INR 4.0 (A) 02/21/2025 INR 3.0 02/14/2025 Lab Results Component Value Date HB 11.3 (L) 09/06/2024 HB 12.2 (L) 01/25/2024 HB 12.0 (L) 01/23/2023 Lab Results Component Value Date HCT 33.9 (L) 09/06/2024 HCT 37.8 (L) 01/25/2024 HCT 37.4 (L) 01/23/2023 Lab Results Component Value Date PLT 141 (L) 09/06/2024 PLT 125 (L) 01/25/2024 PLT 128 (L) 01/23/2023 Lab Results Component Value Date CREAT 1.66 (H) 09/06/2024 CREAT 1.30 (H) 01/25/2024 CREAT 1.35 (H) 07/29/2023 No components found for: [id number] Lab Results Component Value Date ALT 15 09/06/2024 ALT 20 01/25/2024 ALT 19 07/29/2023 Lab Results Component Value Date AST 21 09/06/2024 AST 24 01/25/2024 AST 27 07/29/2023 Estimated Creatinine Clearance: 33.9 mL/min (A) (based on SCr of 1.66 mg/dL (H)). ALLERGIES No Known Allergies Indication for Warfarin: Anticoagulation Episode Summary Current INR goal: 2.0-3.0 Assessment: INR result of 2.0 is therapeutic Plan: Current Warfarin Dosing As of 02/28/2025 Full warfarin instructions: 5 mg every Mon, Fri; 2.5 mg all other days Called and spoke to patient/caregiver Advised patient to continue current weekly dose as noted above Next home INR check scheduled on 03/14/2025 Patient verbalizes understanding of the plan. Patient advised to call the PAC with any medication changes, bleeding/bruising concerns, recent changes in vitamin k consumption, if any procedures are coming up, if they have been ill or in the hospital, and if they have missed any doses of warfarin. Jonathan Hawkins RPh Clinical Pharmacist, Pharmacy Anticoagulation Clinic Pharmacy [facility] Clinic Pager: [phone]. documented in this encounter [facility] 02-24-2025 Hospital Discharg e instructions Patient Education 02/24/2025 13:53:11 General Anesthesia, Adult, Care After General Anesthesia, Adult, Care After This sheet gives you information about how to care for yourself after your procedure. Your health care provider may also give you more specific instructions. If you have problems or questions, contact your health care provider. What can I expect after the procedure? After the procedure, the following side effects are common: Pain or discomfort at the IV site. Nausea. Vomiting. Sore throat. Trouble concentrating. Feeling cold or chills. Weak or tired. Sleepiness and fatigue. Soreness and body aches. These side effects can affect parts of the body that were not involved in surgery. Follow these instructions at home: For at least 24 hours after the procedure: Have a responsible adult stay with you. It is important to have someone help care for you until you are awake and alert. Rest as needed. Do not: ?Participate in activities in which you could fall or become injured. ?Drive. ?Use heavy machinery. ?Drink alcohol. ?Take sleeping pills or medicines that cause drowsiness. ?Make important decisions or sign legal documents. ?Take care of children on your own. Eating and drinking Follow any instructions from your health care provider about eating or drinking restrictions. When you feel hungry, start by eating small amounts of foods that are soft and easy to digest (bland), such as toast. Gradually return to your regular diet. Drink enough fluid to keep your urine pale yellow. If you vomit, rehydrate by drinking water, juice, or clear broth. General instructions If you have sleep apnea, surgery and certain medicines can increase your risk for breathing problems. Follow instructions from your health care provider about wearing your sleep device: ?Anytime you are sleeping, including during daytime naps. ?While taking prescription pain medicines, sleeping medicines, or medicines that make you drowsy. Return to your normal activities as told by your health care provider. Ask your health care provider what activities are safe for you. Take nuaw-mef-dqqmzuu and prescription medicines only as told by your health care provider. If you smoke, do not smoke without supervision. Keep all follow-up visits as told by your health care provider. This is important. Contact a health care provider if: You have nausea or vomiting that does not get better with medicine. You cannot eat or drink without vomiting. You have pain that does not get better with medicine. You are unable to pass urine. You develop a skin rash. You have a fever. You have redness around your IV site that gets worse. Get help right away if: You have difficulty breathing. You have chest pain. You have blood in your urine or stool, or you vomit blood. Summary After the procedure, it is common to have a sore throat or nausea. It is also common to feel tired. Have a responsible adult stay with you for the first 24 hours after general anesthesia. It is important to have someone help care for you until you are awake and alert. When you feel hungry, start by eating small amounts of foods that are soft and easy to digest (bland), such as toast. Gradually return to your regular diet. Drink enough fluid to keep your urine pale yellow. Return to your normal activities as told by your health care provider. Ask your health care provider what activities are safe for you. This information is not intended to replace advice given to you by your health care provider. Make sure you discuss any questions you have with your health care provider. Document Released: 11/02/2001 Document Revised: 07/30/2018 Document Reviewed: 03/12/2018 [employer] Patient Education 2020 [employer]. 02/24/2025 13:53:01 3- Pacemaker/ICD generator replacement (05/2018) (CUSTOM) PACEMAKER/ICD GENERATOR REPLACEMENT Discharge Instructions WOUND CARE DO NOT place any ointments, creams, powders or lotions on the incision. Call your pacemaker/ICD doctor s office immediately if you have: ?Increased redness ?Drainage from the incision ?Opening of the incision ?Increased pain, warmth or swelling on or around the site ?Increased temperature above 100.5 Call if you experience dizziness, palpitations or a fast or slow heart rate If an Aquacel Ag surgical dressing has been applied: ?You may take a shower as long as the dressing is sealed well to your skin. ?You may remove the bandage in 7 days: To do this, press down on your skin with one hand and carefully lift an edge of the bandage with your other hand. Stretch the dressing to break the adhesive seal and gently pull it off. ?If the bandage becomes loose or falls off in less than 5 days, you will not be able to take any showers or baths. You must keep the incision dry for the first 5 days after your procedure. DO NOT clean the incision with any soap, water, peroxide or alcohol. Leave it dry and uncovered for 5 days, then you may shower using soap and water. Wear loose fitting clothes over the incisional site to avoid irritation until it is healed. If you do not have a dressing: DO NOT shower or get the incision wet for 5 days. DO NOT clean the incision with any soap, water, peroxide or alcohol. Leave it dry and uncovered for 5 days, then you may shower using soap and water. Wear loose fitting clothes over the incisional site to avoid irritation until it is healed. MEDICATIONS Take antibiotics before dental work as prescribed by your physician (if prescribed) Take medications as directed until prescription is finished Avoid alcohol while taking medications You may take Tylenol (acetaminophen) for incisional pain or discomfort. ACTIVITY Avoid activity that requires pushing or pulling for the first week. Please move your operation side arm freely after the first week. Document Released: 07/27/2006 Document Revised: 07/13/2013 Document Reviewed: 07/28/2014 [facility] Patient Information 2015 [employer]. This information is not intended to replace advice given to you by your health care provider. Make sure you discuss any questions you have with your health care provider. Follow Up Care 01/16/2025 08:38:31 With:VERONIQUE TOUSSAINT MD Address: [address] [place] [address]- [phone] When:03/09/2025 13:00:00 Comments:This is your incision check in the [facility]. With:VERONIQUE TOUSSAINT MD Address: [address] [place] [address]- [phone] When:06/01/2025 13:30:00 Comments:This is your hospital follow up in the [facility]. [facility] 02-24-2025 Summary of episod e note Discharge Instructions Thank you for allowing [place] to assist you with your healthcare needs. The following is important discharge information regarding your hospital visit. Your Care Team GEORGE MATA MD What to do next Scheduled Follow-Up Appointments Appointment Type When With Where Contact Information StatusCV Incision Check 03/09/2025 01:00 PM EDT [facility] Confirmed CV Office Procedure ICD 06/01/2025 01:30 PM EDT [facility] Confirmed CV OV 06/06/2025 02:00 PM EDT JAVIER GANT [facility] Confirmed CV Remote Procedure HM 09/04/2025 05:15 PM EST [facility] Confirmed Follow Up Appointments Follow Up with VERONIQUE TOUSSAINT MD When:03/09/2025 01:00 PM EDT Where:[address] [facility] [place] [address]- [phone] Additional Information: This is your incision check in the [facility]. Follow Up with VERONIQUE TOUSSAINT MD When:06/01/2025 01:30 PM EDT Where:[address] [facility] [place] [address]- [phone] Additional Information: This is your hospital follow up in the [facility]. Allergies NKA Medications Please ask your primary doctor or pharmacist before taking any other medication not listed, including over the counter drugs, herbal medications, vitamins and or supplements as they may interact with your home medications. What How Much When Instructions Last Dose New ciprofloxacin (ciprofloxacin 250 mg oral tablet) 1 tab(s) by mouth Every 12 hours Duration: 10 Days Pickup at [facility] Unchanged acetaminophen (Tylenol 325 mg oral tablet) 2 tab(s) by mouth Every 4 hours as needed for as needed for pain Unchanged albuterol (Ventolin HFA MDI (90 mcg/ inh) inhalation aerosol) 2 puff(s) by inhalation Four (4) times a day as needed for as needed for wheezing Unchanged aspirin (aspirin 81 mg oral delayed release tablet) 1 tab(s) by mouth Once a day (in the morning) Unchanged atorvastatin (Lipitor 40 mg oral tablet) 1 tab(s) by mouth Daily at bedtime Unchanged atropine/ hyoscyamine/ PB/ scopolamine ( oral tablet) 1 tab(s) by mouth Every 6 hours as needed for as needed for indigestion Unchanged bumetanide (bumetanide 1 mg oral tablet) 1 tab(s) by mouth Once a day as needed for weight gain >3lb in 3 days Duration: 90 Days Unchanged fluticasone-salmeterol (Wixela Inhub 100 mcg-50 mcg inhalation powder) 1 puff(s) by inhalation Two (2) times a day Unchanged metoprolol (metoprolol succinate 25 mg oral TABLET extended release) 1 tab(s) by mouth Once a day with a meal Unchanged nitroGLYcerin (Nitrostat 0.4 mg sublingual tablet) 1 tab(s) under the tongue Every 5 minutes as needed for as needed for chest pain Unchanged pantoprazole (pantoprazole 20 mg oral enteric coated tablet) 1 tab(s) by mouth Once a day (in the morning) Unchanged sacubitril-valsartan (Entresto 24 mg-26 mg oral tablet) 0.5 tab(s) by mouth Two (2) times a day Unchanged warfarin (warfarin 5 mg oral tablet) 0.5 tab(s) by mouth Every Thu / / Thu / / Thu Unchanged warfarin (warfarin 5 mg oral tablet) 1 tab(s) by mouth Every Thursday and Thursday Pharmacy Information [facility]: [id number] [place] [address] [phone] Please take this list to your next doctor s visit. Bring all medications you take, including over the counter medications, herbals and other supplements with you to your doctor s visit. Patients and families are reminded to discard old lists and to update any records with all medication providers or retail pharmacies. Education Materials General Anesthesia, Adult, Care After This sheet gives you information about how to care for yourself after your procedure. Your health care provider may also give you more specific instructions. If you have problems or questions, contact your health care provider. What can I expect after the procedure? After the procedure, the following side effects are common: Pain or discomfort at the IV site. Nausea. Vomiting. Sore throat. Trouble concentrating. Feeling cold or chills. Weak or tired. Sleepiness and fatigue. Soreness and body aches. These side effects can affect parts of the body that were not involved in surgery. Follow these instructions at home: For at least 24 hours after the procedure: Have a responsible adult stay with you. It is important to have someone help care for you until you are awake and alert. Rest as needed. Do not: ? Participate in activities in which you could fall or become injured. ? Drive. ? Use heavy machinery. ? Drink alcohol. ? Take sleeping pills or medicines that cause drowsiness. ? Make important decisions or sign legal documents. ? Take care of children on your own. Eating and drinking Follow any instructions from your health care provider about eating or drinking restrictions. When you feel hungry, start by eating small amounts of foods that are soft and easy to digest (bland), such as toast. Gradually return to your regular diet. Drink enough fluid to keep your urine pale yellow. If you vomit, rehydrate by drinking water, juice, or clear broth. General instructions If you have sleep apnea, surgery and certain medicines can increase your risk for breathing problems. Follow instructions from your health care provider about wearing your sleep device: ? Anytime you are sleeping, including during daytime naps. ? While taking prescription pain medicines, sleeping medicines, or medicines that make you drowsy. Return to your normal activities as told by your health care provider. Ask your health care provider what activities are safe for you. Take guep-szq-rnoesmr and prescription medicines only as told by your health care provider. If you smoke, do not smoke without supervision. Keep all follow-up visits as told by your health care provider. This is important. Contact a health care provider if: You have nausea or vomiting that does not get better with medicine. You cannot eat or drink without vomiting. You have pain that does not get better with medicine. You are unable to pass urine. You develop a skin rash. You have a fever. You have redness around your IV site that gets worse. Get help right away if: You have difficulty breathing. You have chest pain. You have blood in your urine or stool, or you vomit blood. Summary After the procedure, it is common to have a sore throat or nausea. It is also common to feel tired. Have a responsible adult stay with you for the first 24 hours after general anesthesia. It is important to have someone help care for you until you are awake and alert. When you feel hungry, start by eating small amounts of foods that are soft and easy to digest (bland), such as toast. Gradually return to your regular diet. Drink enough fluid to keep your urine pale yellow. Return to your normal activities as told by your health care provider. Ask your health care provider what activities are safe for you. This information is not intended to replace advice given to you by your health care provider. Make sure you discuss any questions you have with your health care provider. Document Released: 11/02/2001 Document Revised: 07/30/2018 Document Reviewed: 03/12/2018 [employer] Patient Education 2020 [employer]. PACEMAKER/ICD GENERATOR REPLACEMENT Discharge Instructions WOUND CARE DO NOT place any ointments, creams, powders or lotions on the incision. Call your pacemaker/ICD doctor s office immediately if you have: ? Increased redness ? Drainage from the incision ? Opening of the incision ? Increased pain, warmth or swelling on or around the site ? Increased temperature above 100.5 Call if you experience dizziness, palpitations or a fast or slow heart rate If an Aquacel Ag surgical dressing has been applied: ? You may take a shower as long as the dressing is sealed well to your skin. ? You may remove the bandage in 7 days: To do this, press down on your skin with one hand and carefully lift an edge of the bandage with your other hand. Stretch the dressing to break the adhesive seal and gently pull it off. ? If the bandage becomes loose or falls off in less than 5 days, you will not be able to take any showers or baths. You must keep the incision dry for the first 5 days after your procedure. DO NOT clean the incision with any soap, water, peroxide or alcohol. Leave it dry and uncovered for 5 days, then you may shower using soap and water. Wear loose fitting clothes over the incisional site to avoid irritation until it is healed. If you do not have a dressing: DO NOT shower or get the incision wet for 5 days. DO NOT clean the incision with any soap, water, peroxide or alcohol. Leave it dry and uncovered for 5 days, then you may shower using soap and water. Wear loose fitting clothes over the incisional site to avoid irritation until it is healed. MEDICATIONS Take antibiotics before dental work as prescribed by your physician (if prescribed) Take medications as directed until prescription is finished Avoid alcohol while taking medications You may take Tylenol (acetaminophen) for incisional pain or discomfort. ACTIVITY Avoid activity that requires pushing or pulling for the first week. Please move your operation side arm freely after the first week. Document Released: 07/27/2006 Document Revised: 07/13/2013 Document Reviewed: 07/28/2014 ExitCare Patient Information 2015 [facility], [facility]. This information is not intended to replace advice given to you by your health care provider. Make sure you discuss any questions you have with your health care provider. Additional Information VACCINATE! IT SAVES LIVES! Members of the community who have not yet received the COVID-19 vaccine and would like to receive it can visit one of [facility] vaccine clinics. There are many vaccine clinic locations within the [facility]. For locations and available times, please visit [email or web address].o hio.gov/. It is important to note that some COVID mobile vaccine clinics are held outdoors and may be canceled in rainy or stormy conditions. To learn more about pediatric vaccinations (ages 5-11), we invite you to visit the [facility] webpage. [email or web address].org/p [email or web address]-[email or web address] To learn more about the COVID-19 vaccine, we invite you to visit the CDC website for a list of frequently asked questions.https://www.cdc.gov/co ronavirus/2019-ncov/vaccines/faq .html [employer] Patient Portal Access Instructions: Stay connected with your healthcare team and access your personal medical information anytime with the [employer] Patient Portal. Please follow the directions below to create your [employer] account: 1.Access the email account you provided upon registration to the hospital/physician office.2.Look for an invitation email from [facility].3.Open the email and access the invitation link: Accept Invitation to [employer].4.Fill in the required mitchell to create your account. To access your account, visit [email or web address]. Click the blue button labeled Access Patient Portal and then log in with the username and password that you created in the steps above. You will be able to view your test results, lab results, a summary of your visits, upcoming appointments and more. There is also a convenient messaging option where you can send secure messages to your provider. In addition, you will have the ability to download any documents or summaries to your computer and/or send the information securely to a physician. Remember that your healthcare information is confidential, so carefully consider who you will allow to register on the [facility] for access to your information. You can also access the [facility] on the [place] [facility] [email or web address]. Simply click on Patient Portal and then log into your account. If you would like to receive a full copy of your medical records, please contact the [facility] Medical Records Department by calling [phone], Thursday through Thursday between 8 a.m. and 4:30 p.m. HOW TO SAFELY DISPOSE OF PRESCRIPTION MEDICATIONS Please use one of the following methods to safely dispose of your unused medications. 1.Use a drug disposal kit: the drug disposal pouch allows you to safely discard your old and unused drugs. Ask your nurse to give you one when you are discharged.2.Visit a local take-back location: Many local pharmacies and police departments have programs that collect old and unwanted prescription drugs. Call your local pharmacy or go to http://Kommerstate.ru/1I0Tq7o to find one close to you.3.Make use of household items: Use cat litter or old coffee grounds to dispose medications if other options are not available. Mix your drugs with these household products, seal them in an airtight container and throw it into the garbage. Call [facility]: [phone] to be sure your drugs can be disposed of in this way. Some medicines may require a different approach.4.Never flush your medications down the toilet. IF YOU HAVE BEEN PRESCRIBED AN OPIOID FOR PAIN If you have been prescribed an opioid (such as hydrocodone, oxycodone or morphine), it is critical to understand the possible side effects and risks of opioid pain medications. Even when taken as directed, opioids can have several side effects including: Tolerance, meaning you might need to take more of a medication for the same pain relief. Nausea, vomiting and/or constipation. Sleepiness, dizziness, dry mouth, confusion, depression or itching. Physical dependence, meaning you have withdrawal symptoms when a medication is stopped, can develop within a few days. KNOW YOUR RESPONSIBILITIES It is important to know exactly how much and how often to take the opioid pain medications you are prescribed. Never take opioids in higher amounts or more often than prescribed. Do not combine opioids with alcohol or other drugs that cause drowsiness, such as benzodiazepines, also known as benzos, including diazepam and alprazolam, muscle relaxants or sleep aids. Never sell or share prescription opioids. This is illegal. Store opioids in a secure place and out of reach of others (including children, family, friends and visitors). The last page of this document has been signed and retained as a CHART COPY. Signatures Patient Education Materials General Anesthesia, Adult, Care After 3- Pacemaker/ICD generator replacement (05/2018) (CUSTOM) Medication Leaflets My discharge plan and instructions have been reviewed and explained to me and INICOLLE ELI L understand my current condition and have read and understand these discharge instructions. I have received a written copy of the plan/instructions. If I have questions, I am aware that I should contact my doctor. 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 Hospital Course . 79-year-old male with past medical history for atrial fibrillation. He underwent successful STOCK CHECKERER-D ICD generator replacement tolerating the procedure well. A transesophageal echocardiogram had previously demonstrated adequate left atrial appendage occlusion device placement. The patient will be discharged home to follow as an outpatient. Allergies NKA Procedures ICD generator replacement. Consults No qualifying data available. Physical Exam Vitals and Measurements T: 36.0 C (Temporal Artery) TMIN: 36.0 C (Temporal Artery) TMAX: 36.2 C (Oral) HR: 70 (Monitored) RR: 18 BP: 122/81 SpO2: 95% HT: 175.3 cm WT: 83.2 kg Weight Dosing Weight: 83.2 kg (02/24/25) Physical Exam: General: well appearing, no acute distress Respiratory: normal chest wall expansion, CTA B, no r/r/w, no rubs Cardiovascular: RRR, no m/r/g, Normal S1 and S2 Abdomen: Soft, non-tender, non-distended, normal bowel sounds in all quadrants, no hepatosplenomegaly, no tympany Integumentary: warm, dry, and pink, with no rash, purpura, or petechia Neurological: 2+ patellar reflexes, Cranial Nerves II-XII grossly intact, no tics, normal sensation to pressure and light touch Code Status No qualifying data available. Admission Date 02/24/2025 Discharge Date 02/24/2025 Medications New Prescription ciprofloxacin (ciprofloxacin 250 mg oral tablet)1 tab(s) by mouth every 12 hours for 10 Days. Refills: 0. Unchanged acetaminophen (Tylenol 325 mg oral tablet)2 tab(s) by mouth every 4 hours as needed as needed for pain. albuterol (Ventolin HFA MDI (90 mcg/inh) inhalation aerosol)2 puff(s) by inhalation four (4) times a day as needed as needed for wheezing. aspirin (aspirin 81 mg oral delayed release tablet)1 tab(s) by mouth once a day (in the morning). atorvastatin (Lipitor 40 mg oral tablet)1 tab(s) by mouth daily at bedtime. atropine/hyoscyamine/PB/scopolam ine ( oral tablet)1 tab(s) by mouth every 6 hours as needed as needed for indigestion. bumetanide (bumetanide 1 mg oral tablet)1 tab(s) by mouth once a day as needed weight gain >3lb in 3 days for 90 Days. Refills: 3. fluticasone-salmeterol (Wixela Inhub 100 mcg-50 mcg inhalation powder)1 puff(s) by inhalation two (2) times a day. metoprolol (metoprolol succinate 25 mg oral TABLET extended release)1 tab(s) by mouth once a day with a meal. Refills: 11. nitroGLYcerin (Nitrostat 0.4 mg sublingual tablet)1 tab(s) under the tongue every 5 minutes as needed as needed for chest pain. pantoprazole (pantoprazole 20 mg oral enteric coated tablet)1 tab(s) by mouth once a day (in the morning). sacubitril-valsartan (Entresto 24 mg-26 mg oral tablet)0.5 tab(s) by mouth two (2) times a day. Refills: 1. warfarin (warfarin 5 mg oral tablet)0.5 tab(s) by mouth every Thu / / Thu / / Thu. warfarin (warfarin 5 mg oral tablet)1 tab(s) by mouth every Thursday and Thursday. Follow Up Follow Up with VERONIQUE TOUSSAINT MD When:03/09/2025 01:00 PM EDT Where:[address] [facility] [address] [place] [address]- [phone] Additional Information: This is your incision check in the Device Clinic. Follow Up with VERONIQUE TOUSSAINT MD When:06/01/2025 01:30 PM EDT Where:[address] [facility] [address] [place] [address]- [phone] Additional Information: This is your hospital follow up in the Device Clinic. Follow Up Appointments No qualifying data available. Follow Up Labs/Studies Discharge Labs No Follow-up Labs Discharge Studies No Follow-up Studies Discharge Diet No qualifying data available. Discharge Activity No qualifying data available. Condition on Discharge Good Discharge Disposition Home Digitally Signed by VERONIQUE TOUSSAINT MD on 02/24/2025 01:46 PM [facility] 02-24-2025 Note Exam Date Time Procedure Performing Provider Status 02/24/25 1:38 PM XR Chest 1 View [facility] (Verified) [id number] ORIGINAL EXAMINATION: ONE XRAY VIEW OF THE CHEST 02/24/2025 1:38 pm COMPARISON: Chest x-ray 12/31/2024. HISTORY: ORDERING SYSTEM PROVIDED HISTORY: Reason for Exam: Evaluate for pneumothorax/lead position post pacer/ICD insertion FINDINGS: Left 3 lead subclavian AICD is noted with leads in unchanged position within the right atrium, right ventricle and coronary sinus. A suspected atrial septal occlusion device is noted. Median sternotomy wires are noted. A TAVR is noted. Atherosclerotic calcifications are noted within the aorta. The cardiac contour is enlarged but stable. There is mild worsening bilateral interstitial prominence, greatest within the right lung base. Suspect small bilateral pleural effusions. No pneumothorax. Osseous structures appear intact. IMPRESSION: No significant change in positioning of left subclavian 3 lead pacemaker. No evidence of pneumothorax. Increasing bilateral interstitial prominence greatest within the right lower lobe and suspected small bilateral pleural effusions is likely related to pulmonary edema. Interpreted by: Hunter Collier Preliminary Report By: Hunter Collier Electronically signed By Hunter Collier Dictated Date: 02/24/2025 2:07:16 PM Prelim Date: 02/24/2025 2:11:11 PM Sign Date: 02/24/2025 2:11:11 PM Ordering Provider: [facility]07-18-2025 Anesthesiology Consult note Patient: BESSY VALVERDE Age: 79 years Sex: Male : 1945 Associated Diagnoses: None Author: RASHEEDA BEE DO Postoperative Information Post Operative Info: Post op day: Post Anesthesia Care Unit. Patient location: PACU. Assessment Postanesthesia assessment Vitals: Vital signs from flowsheet : Vital Signs 02/24/2025 12:20 EDT Heart Rate Monitored 69 bpm Respiratory Rate 18 br/min Systolic Blood Pressure Non-Invasive 108 mmHg Diastolic Blood Pressure Non-Invasive 78 mmHg 02/24/2025 12:08 EDT Heart Rate Monitored 72 bpm Respiratory Rate 16 br/min Systolic Blood Pressure Non-Invasive 110 mmHg Diastolic Blood Pressure Non-Invasive 76 mmHg 02/24/2025 12:02 EDT Heart Rate Monitored 70 bpm Respiratory Rate 18 br/min Systolic Blood Pressure Non-Invasive 113 mmHg Diastolic Blood Pressure Non-Invasive 73 mmHg 02/24/2025 11:57 EDT Heart Rate Monitored 70 bpm Respiratory Rate 16 br/min Systolic Blood Pressure Non-Invasive 113 mmHg Diastolic Blood Pressure Non-Invasive 75 mmHg 02/24/2025 11:53 EDT Heart Rate Monitored 72 bpm Respiratory Rate 15 br/min Systolic Blood Pressure Non-Invasive 94 mmHg Diastolic Blood Pressure Non-Invasive 65 mmHg 02/24/2025 11:48 EDT Temperature Temporal Artery 36.0 DegC Heart Rate Monitored 70 bpm Respiratory Rate 14 br/min Systolic Blood Pressure Non-Invasive 94 mmHg Diastolic Blood Pressure Non-Invasive 65 mmHg 02/24/2025 11:45 EDT Heart Rate Monitored 79 bpm bpm Respiratory Rate - Anes 0 br/min br/min Systolic Blood Pressure Non-Invasive 94 mmHg mmHg Diastolic Blood Pressure Non-Invasive 68 mmHg mmHg 02/24/2025 11:41 EDT Systolic Blood Pressure Non-Invasive 86 mmHg mmHg Diastolic Blood Pressure Non-Invasive 66 mmHg mmHg 02/24/2025 11:40 EDT Heart Rate Monitored 70 bpm bpm Respiratory Rate - Anes 8 br/min br/min 02/24/2025 11:39 EDT Systolic Blood Pressure Non-Invasive 86 mmHg mmHg Diastolic Blood Pressure Non-Invasive 63 mmHg mmHg 02/24/2025 11:36 EDT Systolic Blood Pressure Non-Invasive 86 mmHg mmHg Diastolic Blood Pressure Non-Invasive 61 mmHg mmHg 02/24/2025 11:35 EDT Heart Rate Monitored 70 bpm bpm Respiratory Rate - Anes 8 br/min br/min 02/24/2025 11:32 EDT Systolic Blood Pressure Non-Invasive 85 mmHg mmHg Diastolic Blood Pressure Non-Invasive 60 mmHg mmHg 02/24/2025 11:30 EDT Heart Rate Monitored 70 bpm bpm Respiratory Rate - Anes 11 br/min br/min Systolic Blood Pressure Non-Invasive 86 mmHg mmHg Diastolic Blood Pressure Non-Invasive 63 mmHg mmHg 02/24/2025 11:27 EDT Systolic Blood Pressure Non-Invasive 87 mmHg mmHg Diastolic Blood Pressure Non-Invasive 64 mmHg mmHg 02/24/2025 11:25 EDT Heart Rate Monitored 90 bpm bpm Respiratory Rate - Anes 11 br/min br/min 02/24/2025 11:24 EDT Systolic Blood Pressure Non-Invasive 85 mmHg mmHg Diastolic Blood Pressure Non-Invasive 64 mmHg mmHg 02/24/2025 11:21 EDT Systolic Blood Pressure Non-Invasive 89 mmHg mmHg Diastolic Blood Pressure Non-Invasive 62 mmHg mmHg 02/24/2025 11:20 EDT Heart Rate Monitored 80 bpm bpm Respiratory Rate - Anes 11 br/min br/min 02/24/2025 11:17 EDT Systolic Blood Pressure Non-Invasive 85 mmHg mmHg Diastolic Blood Pressure Non-Invasive 64 mmHg mmHg 02/24/2025 11:15 EDT Heart Rate Monitored 73 bpm bpm Respiratory Rate - Anes 14 br/min br/min Systolic Blood Pressure Non-Invasive 87 mmHg mmHg Diastolic Blood Pressure Non-Invasive 65 mmHg mmHg 02/24/2025 11:11 EDT Systolic Blood Pressure Non-Invasive 93 mmHg mmHg Diastolic Blood Pressure Non-Invasive 63 mmHg mmHg 02/24/2025 11:10 EDT Heart Rate Monitored 70 bpm bpm Respiratory Rate - Anes 13 br/min br/min 02/24/2025 11:08 EDT Systolic Blood Pressure Non-Invasive 93 mmHg mmHg Diastolic Blood Pressure Non-Invasive 62 mmHg mmHg 02/24/2025 11:06 EDT Systolic Blood Pressure Non-Invasive 91 mmHg mmHg Diastolic Blood Pressure Non-Invasive 64 mmHg mmHg 02/24/2025 11:05 EDT Heart Rate Monitored 70 bpm bpm Respiratory Rate - Anes 14 br/min br/min 02/24/2025 11:02 EDT Systolic Blood Pressure Non-Invasive 89 mmHg mmHg Diastolic Blood Pressure Non-Invasive 62 mmHg mmHg 02/24/2025 11:00 EDT Heart Rate Monitored 70 bpm bpm Respiratory Rate - Anes 14 br/min br/min Systolic Blood Pressure Non-Invasive 91 mmHg mmHg Diastolic Blood Pressure Non-Invasive 64 mmHg mmHg 02/24/2025 10:56 EDT Systolic Blood Pressure Non-Invasive 93 mmHg mmHg Diastolic Blood Pressure Non-Invasive 66 mmHg mmHg 02/24/2025 10:55 EDT Heart Rate Monitored 71 bpm bpm Respiratory Rate - Anes 14 br/min br/min 02/24/2025 10:53 EDT Systolic Blood Pressure Non-Invasive 91 mmHg mmHg Diastolic Blood Pressure Non-Invasive 64 mmHg mmHg 02/24/2025 10:51 EDT Systolic Blood Pressure Non-Invasive 88 mmHg mmHg Diastolic Blood Pressure Non-Invasive 64 mmHg mmHg 02/24/2025 10:50 EDT Heart Rate Monitored 70 bpm bpm Respiratory Rate - Anes 14 br/min br/min 02/24/2025 10:48 EDT Systolic Blood Pressure Non-Invasive 87 mmHg mmHg Diastolic Blood Pressure Non-Invasive 62 mmHg mmHg 02/24/2025 10:45 EDT Heart Rate Monitored 74 bpm bpm Respiratory Rate - Anes 0 br/min br/min 02/24/2025 10:44 EDT Systolic Blood Pressure Non-Invasive 114 mmHg mmHg Diastolic Blood Pressure Non-Invasive 79 mmHg mmHg 02/24/2025 10:40 EDT Heart Rate Monitored 74 bpm bpm Respiratory Rate - Anes 0 br/min br/min 02/24/2025 9:01 EDT Temperature Oral 36.2 DegC Peripheral Pulse Rate 85 bpm Respiratory Rate 16 br/min Systolic Blood Pressure Non-Invasive 134 mmHg Diastolic Blood Pressure Non-Invasive 85 mmHg , Oxygen Therapy : Oxygen Therapy & Oxygenation Information 02/24/2025 12:20 EDT Oxygen Therapy Room air Oxygen Saturation 95 % 02/24/2025 12:08 EDT Oxygen Therapy Room air Oxygen Saturation 93 % 02/24/2025 12:02 EDT Oxygen Therapy Room air Oxygen Saturation 94 % 02/24/2025 11:57 EDT Oxygen Therapy Nasal cannula 0L-6L Oxygen Saturation 94 % Oxygen Flow Rate 2 L/min 02/24/2025 11:53 EDT Oxygen Therapy Nasal cannula 0L-6L Oxygen Saturation 95 % Oxygen Flow Rate 2 L/min 02/24/2025 11:48 EDT Oxygen Therapy Nasal cannula 0L-6L Oxygen Saturation 93 % Oxygen Flow Rate 2 L/min 02/24/2025 11:45 EDT Oxygen Saturation 88 % % 02/24/2025 11:40 EDT Oxygen Saturation 97 % % 02/24/2025 11:35 EDT Oxygen Saturation 97 % % 02/24/2025 11:30 EDT Oxygen Saturation 98 % % 02/24/2025 11:25 EDT Oxygen Saturation 98 % % 02/24/2025 11:20 EDT Oxygen Saturation 98 % % 02/24/2025 11:15 EDT Oxygen Saturation 98 % % 02/24/2025 11:10 EDT Oxygen Saturation 98 % % 02/24/2025 11:05 EDT Oxygen Saturation 98 % % 02/24/2025 11:00 EDT Oxygen Saturation 98 % % 02/24/2025 10:55 EDT Oxygen Saturation 98 % % 02/24/2025 10:50 EDT Oxygen Saturation 98 % % 02/24/2025 10:45 EDT Oxygen Saturation 99 % % 02/24/2025 10:40 EDT Oxygen Saturation 92 % % 02/24/2025 9:01 EDT Oxygen Therapy Room air Oxygen Saturation 94 % . Mental status: at preoperative baseline. Respiratory function: respirations are non-labored, Stable. Respiratory support: none. CV function: Stable. Cardiovascular support: none. Pain: Satisfactory. Nausea status: Satisfactory. Postoperative hydration status: within normal limits. Notes: Patient is sufficiently recovered from anesthesia to participate in the evaluation. No follow-up care needed. No complications post-anesthesia.. Digitally Signed by RASHEEDA BEE DO on 02/24/2025 12:41 PM [id number]* Exam Date Time Procedure Performing Provider Status 02/24/25 10:35 AM ICD Generator Change VERONIQUE TOUSSAINT MD; Auth (Verified) [id number] Anesthesiology Consult note Patient: BESSY VALVERDE Age: 79 years Sex: Male : 1945 Associated Diagnoses: None Author: RASHEEDA BEE DO Preoperative Information NPO greater than 8 hours food and greater than 2 hours liquid Anesthesia history Patient's history: negative. Health Status Allergies: Allergic Reactions (Selected) NKA, Allergies (1) ActiveSeverityReaction NKANone Documented Current medications: (Selected) Inpatient Medications Ordered Kefzol: 2 gram(s), 20 mL, 240 mL/hr, IV Push (INT), PREOP pharm NS 1,000 mL: 20 mL/hr, Intravenous lidocaine 1% preservative-free injectable solution: 2.5 mg, 0.25 mL, Intradermal, prep pharm Prescriptions Prescribed Entresto 24 mg-26 mg oral tablet: 0.5 tab(s), Oral, BID, 100 tab(s), 1 Refill(s) bumetanide 1 mg oral tablet: 1 mg, 1 tab(s), Oral, qDay, for 90 day(s), PRN: weight gain >3lb in3 days, 90 tab(s), 3 Refill(s) metoprolol succinate 25 mg oral TABLET extended release: 25 mg, 1 tab(s), Oral, qDayM, 30 tab(s), 11 Refill(s) mupirocin 2% topical ointment: 1 charanjit, Topical, BID, Bilateral intranasal application twice daily x 5 days pre-surgery., 22 gram(s), 0 Refill(s) Documented Medications Documented oral tablet: 1 tab(s), Oral, q6h, PRN: as needed for indigestion, 0 Refill(s) Lipitor 40 mg oral tablet: 40 mg, 1 tab(s), Oral, qHS, 30 tab(s), 0 Refill(s) Nitrostat 0.4 mg sublingual tablet: 0.4 mg, 1 tab(s), Sublingual, q5min, PRN: as needed for chest pain, 100 tab(s), 0 Refill(s) Tylenol 325 mg oral tablet: 650 mg, 2 tab(s), Oral, q4h, PRN: as needed for pain Ventolin HFA MDI (90 mcg/inh) inhalation aerosol: 2 puff(s), Inhalation, QID, PRN: as needed for wheezing, 0 Refill(s) Wixela Inhub 100 mcg-50 mcg inhalation powder: 1 puff(s), Inhalation, BID, 0 Refill(s) aspirin 81 mg oral delayed release tablet: 81 mg, 1 tab(s), Oral, qAM, 0 Refill(s) montelukast 10 mg oral tablet: 10 mg, 1 tab(s), Oral, qDay, PRN: Allergy symptoms pantoprazole 20 mg oral enteric coated tablet: 20 mg, 1 tab(s), Oral, qAM, 30 tab(s), 0 Refill(s) warfarin 5 mg oral tablet: 2.5 mg, 0.5 tab(s), Oral, Sun//Thu//Sat warfarin 5 mg oral tablet: 5 mg, 1 tab(s), Oral, Thursday & Thursday, Medications (3) Active Scheduled: (2) ceFAZolin syringe 2 gram(s) 20 mL, IV Push (INT), PREOP pharm lidocaine 1% (MPF) 2 mL vial pf 2.5 mg 0.25 mL, Intradermal, prep pharm Continuous: (1) NS (0.9% nacl) 1,000 mL 1,000 mL, Intravenous, 20 mL/hr PRN: (0) Problem list: Medical SEVERE AORTIC STENOSIS / SNOMED CT 910428599 / Confirmed Aortic stenosis / SNOMED CT 420859308 / Confirmed Asthma / SNOMED CT 125939082 / Confirmed AF (atrial fibrillation) / SNOMED CT 71342886 / Confirmed ICD (implantable cardioverter-defibrillator) in place / SNOMED CT 8415713366 / Confirmed CAD - Coronary artery disease / SNOMED CT 9717212817 / Confirmed BIVENTRICULAR ICD (IMPLANTABLE CARDIOVERTER-DEFIBRILLATOR) IN PLACE / SNOMED CT 5114380693 / Confirmed Cardiomyopathy / SNOMED CT 422914587 / Confirmed ASTHMA / SNOMED CT 932428989 / Confirmed Atrial fibrillation / SNOMED CT 8727185786 / Confirmed CKD (chronic kidney disease) / SNOMED CT 7738546161 / Confirmed CHRONIC SYSTOLIC CHF (CONGESTIVE HEART FAILURE) / SNOMED CT 0510238386 / Confirmed CAD IN [place] ART[place] / SNOMED CT 0099796539 / Confirmed Wears dentures / SNOMED CT 950981755 / Confirmed Diabetes mellitus type 2 / SNOMED CT 005933082 / Confirmed Diarrhea / SNOMED CT 523176891 / Confirmed Dyspnea on exertion / SNOMED CT 470172267 / Confirmed PULMONARY FIBROSIS / SNOMED CT 29169052 / Confirmed Acid reflux / SNOMED CT 468109413 / Confirmed Glasses / SNOMED CT 3099219299 / Confirmed Gout / SNOMED CT 708789338 / Confirmed H/O valvular heart disease / SNOMED CT 288715558 / Confirmed Hard of hearing / SNOMED CT 044477332 / Confirmed Headache / SNOMED CT 08812841 / Confirmed Hearing aid / SNOMED CT 64736038 / Confirmed VALVULAR HEART DISEASE / SNOMED CT 9425200 / Confirmed High blood pressure / SNOMED CT 42704592 / Confirmed History of coronary artery bypass graft / SNOMED CT 6571215289 / Confirmed History of mitral valve replacement / SNOMED CT 1243130518 / Confirmed STATUS POST DEVICE CLOSURE OF ASD / SNOMED CT 7297020762 / Confirmed Hypercholesterolemia / SNOMED CT 36485929 / Confirmed Hypertension / SNOMED CT 9354608074 / Confirmed HOCM (HYPERTROPHIC OBSTRUCTIVE CARDIOMYOPATHY) / SNOMED CT 71926989 / Confirmed Hypokalemia / SNOMED CT 32170366 / Confirmed Hyponatremia / SNOMED CT 477143398 / Confirmed Acute kidney injury / SNOMED CT 37258072 / Confirmed Irritable bowel syndrome / SNOMED CT 24058469 / Confirmed Mitral regurgitation / SNOMED CT 55623556 / Confirmed INCREASED BMI (Renamed from OVERWEIGHT) / SNOMED CT 974138057 / Confirmed VT (Renamed from PAROXYSMAL VENTRICULAR TACHYCARDIA) / SNOMED CT 944213624 / Confirmed Preop cardiovascular exam / SNOMED CT 055025445 / Confirmed Peripheral artery disease / SNOMED CT 4484612641 / Confirmed PERMANENT ATRIAL FIBRILLATION / SNOMED CT 5792155201 / Confirmed Short of breath on exertion / SNOMED CT 9832096318 / Confirmed CURRENT TOBACCO USE / SNOMED CT 085802177 / Confirmed VT (ventricular tachycardia) / SNOMED CT 25650760 / Confirmed Resolved: Heart attack / SNOMED CT 45302063 Resolved: Hx of ventricular tachycardia / SNOMED CT 2233170500 Resolved: Hypotension / SNOMED CT 492700302 Resolved: Panic attack / SNOMED CT 013284682 Canceled: 04/29 CABG x 4 using bilateral CHRISTOPHER's and Left SVG by Dr. Magdaleno Canceled: Severe aortic stenosis c/ TAVR / SNOMED CT 618191483 Canceled: Automatic cardiac defibrillator / SNOMED CT 393685323 Canceled: CABG - Coronary artery bypass graft / SNOMED CT 166567759 Canceled: Cardiac catheterization / SNOMED CT 12359066 Canceled: Cardiac catheterization / SNOMED CT 31275704 Canceled: Cardiac catheterization / SNOMED CT 98905320 Canceled: Presence of cardiac resynchronization therapy defibrillator (STOCK CHECKERER-D) / SNOMED CT 8974912038 Canceled: Artificial pacemaker / SNOMED CT 3215594035 Canceled: CHF (congestive heart failure) / SNOMED CT 13793422 Canceled: CAD IN [place] ARTERY / SNOMED CT 0452125777 Canceled: Pulmonary fibrosis / SNOMED CT 79226853 Canceled: History of asthma / SNOMED CT 546257997 Canceled: History of atrial fibrillation / SNOMED CT 685345438 Canceled: H/O cardiomyopathy / SNOMED CT 009278922 Canceled: Heart failure / SNOMED CT 773966409 Canceled: Hx: CAD, previous stents, HTN Canceled: MVR - Mitral valve repair / SNOMED CT 1249627816 Canceled: Hydrops / SNOMED CT 697826089 Canceled: Current tobacco use / SNOMED CT 499035310, Active Problems (67) Acid reflux Acute kidney injury AF (atrial fibrillation) AICD (automatic cardioverter/defibrillator) present Anticoagulated on Coumadin Anxiety Aortic stenosis Arthritis Asthma ASTHMA At risk for falls Atrial fibrillation Benign colon polyp Bilateral lower extremity edema BIVENTRICULAR ICD (IMPLANTABLE CARDIOVERTER-DEFIBRILLATOR) IN PLACE CAD - Coronary artery disease CAD IN [place] Cancer of skin of face Cardiomyopathy CHRONIC SYSTOLIC CHF (CONGESTIVE HEART FAILURE) CKD (chronic kidney disease) Claustrophobia CURRENT TOBACCO USE Diabetes mellitus type 2 Diarrhea Dizziness Dyslipidemia Dyspnea on exertion Glasses Gout H/O valvular heart disease Hard of hearing Headache Hearing aid Heart rate fast High blood pressure History of coronary artery bypass graft History of COVID-19 History of mitral valve replacement History of transcatheter aortic valve replacement (TAVR) HOCM (HYPERTROPHIC OBSTRUCTIVE CARDIOMYOPATHY) Hypercholesterolemia Hypertension Hypokalemia Hyponatremia ICD (implantable cardioverter-defibrillator) in place INCREASED BMI (Renamed from OVERWEIGHT) Insomnia Irritable bowel syndrome Mitral regurgitation Mitral stenosis On anticoagulant therapy Peripheral artery disease PERMANENT ATRIAL FIBRILLATION Preop cardiovascular exam Presence of dental prosthetic device PULMONARY FIBROSIS SEVERE AORTIC STENOSIS Short of breath on exertion STATUS POST DEVICE CLOSURE OF ASD Stented coronary artery Tobacco use Use of cane as ambulatory aid VALVULAR HEART DISEASE VT (Renamed from PAROXYSMAL VENTRICULAR TACHYCARDIA) VT (ventricular tachycardia) Wears dentures Histories Past Medical History: Active High blood pressure (26497995) Hypercholesterolemia (79768208) Asthma (934953590) Short of breath on exertion (1823849871) CAD - Coronary artery disease (2658084018) Mitral regurgitation (77235805) H/O valvular heart disease (931953338) VT (ventricular tachycardia) (25976485) Cardiomyopathy (065926964) Acid reflux (456072832) Diarrhea (134056359) Comments: 03/09/2019 EDT 13:28 Kurtis Phan occasional Irritable bowel syndrome (76666719) Headache (78564363) Glasses (4364697371) Hard of hearing (617042704) Hearing aid (07133796) Comments: 04/09/2018 EDT 9:45 Kurtis Phan bilat Wears dentures (462136712) Comments: 04/09/2018 EDT 9:45 Kurtis Phan full Diabetes mellitus type 2 (123210107) Comments: 04/09/2018 EDT 9:46 Kurtis Phan diet controlled History of coronary artery bypass graft (1678385715) Peripheral artery disease (5734992146) History of mitral valve replacement (0277484740) Resolved Heart attack (95685071): Onset in 1995 at 50 years. Resolved. Comments: 06/10/2013 EDT 10:09 ILAN CAM MD currently active without ischemic sx or limitations. Presents for placement of AICD, Hx of ventricular tachycardia (9993473575): Resolved. Hypotension (888689257): Resolved. Panic attack (285890225): Resolved. Family History: Diabetes mellitus Mother Heart disease Brother Sister Cancer Mother HTN - Hypertension Mother Father Sister Procedure history: Echocardiogram ([id number]) on 11/18/2024 at 78 Years. Comments: 12/01/2024 10:16 Mattie Huggins MA (ABR-OE) Summary: 1. Left ventricle: Systolic function is severely reduced. The estimated ejection fraction is 30%. Hypokinesis of the inferior myocardium. Hypokinesis of the inferoseptal myocardium. Hypokinesis of the apical anterolateral myocardium. Diastolic dysfunction present but unable to assess severity. 2. Aortic valve: A prosthetic valve (Franklin Amber) is present. The peak systolic velocity is 1.5 m/sec. The acceleration time is 71 ms. 3. Mitral valve: A bioprosthesis is present. The mean diastolic gradient is 3 mm Hg. 4. Left atrium: The atrium is severely dilated. 5. Right ventricle: The cavity size is increased. Systolic function is reduced. The RV systolic pressure by Doppler is 42 mm Hg. 6. Tricuspid valve: There is moderate regurgitation. 7. Right atrium: The atrium is dilated. The estimated right atrial pressure is 3 mm Hg. Echocardiogram ([id number]) on 12/16/2022 at 76 Years. Comments: 12/23/2022 14:30 Mattie Huggins MA (ABR-OE) Summary: 1. Left ventricle: The cavity size is normal. Wall thickness is mildly increased. Systolic functionis moderately to severely reduced. The estimated ejection fraction is 35%. There is moderate diffuse hypokinesis. Diastolic dysfunction present but unable to assess severity. 2. Ventricular septum: Thickness is mildly increased. Septal motion is paradoxical. 3. Aortic valve: A prosthetic valve (Franklin Amber) is present. 4. Ascending aorta: The ascending aorta is borderline dilated and 36.0 mm diameter. 5. Mitral valve: A bioprosthesis is present. The mean diastolic gradient is 3 mm Hg @ HR of 91. Thevalve area by pressure half-time is 3.0 cm . 6. Left atrium: The atrium is moderately to severely dilated. 7. Right ventricle: Systolic function is reduced. The RV systolic pressure by Doppler is 57 mm Hg. 8. Tricuspid valve: There is mild-moderate regurgitation. 9. Right atrium: The atrium is mildly to moderately dilated. The estimated right atrial pressure is8 mm Hg. Cardiac catheterization ([id number]) on 10/24/2021 at 75 Years. Comments: 12/25/2021 10:19 Mattie Huggins MA (ABR-OE) Procedures performed: Right heart catheterization. SUMMARY: Mean right atrial pressure is 10 mmHg Right ventricular pressures 58/10 mmHg Pulmonary artery pressure is 58/20 mmHg, mean 33 mmHg Pulmonary capillary wedge pressure is 20 mmHg Blood pressure is 101/68, mean 79 Heart rate is 70 bpm Pulse ox is 100%, Hgb 13.6 g/dl Cardiac output is 5.2 L/min with a cardiac index of 2.6 L/min/m . TPG 13 RA:wedge 0.5 PA pulsatility index 3.8 PVR 2.5 SVR 1062 RECOMMENDATIONS: Normal cardiac output. Mildly elevated filling pressures. Will increase diuretic dose. Cardiac catheterization ([id number]) on 07/29/2021 at 75 Years. Comments: 09/09/2021 17:06 Mattie Don MA (ABR-OE) Procedures performed: Left coronary angiography. Right coronary angiography. Saphenous vein graft angiography. ORTIZ graft angiography. SUMMARY: 1. LAD: Proximal vessel lesion: There is a 100% chronic total occlusion. 2. Right posterior descending: Proximal vessel lesion: There is a 90% stenosis. IMPRESSIONS: Severe [place] CAD with patent ORTIZ to LAD / D1 and SVG to PDA. RECOMMENDATIONS: Treatment of VT. Transcatheter mitral valve implantation/replacement (TMVI) with prosthetic valve; percutaneous approach, including transseptal puncture, when performed (0483T) on 04/13/2019 at 73 Years. Comments: 04/13/2019 21:08 QUE Marie Attempted - Septal occluder placed PTCA - Percutaneous transluminal coronary angioplasty ([id number]) on 02/12/2018 at 72 Years. Comments: 04/09/2018 9:39 QUE Phan x1 stent TAVR - Transcatheter aortic valve replacement ([id number]) in 2018 at 72 Years. ICD - Internal cardiac defibrillator procedure ([id number]) in 2016 at 70 Years. Comments: 04/09/2018 9:40 QUE Phan lead change Cardiac catheterization ([id number]) in the month of 09/2015 at 69 Years. Comments: 10/29/2015 12:38 QUE Lizarraga no change Mitral valve prosthesis ([id number]) on 05/17/2013 at 67 Years. Comments: 05/17/2013 18:37 QUE Feldman resternotomy, mitral valve replacement, insertion IABP, insertion TPW Insertion of intra-aortic balloon pump ([id number]) on 05/17/2013 at 67 Years. Comments: 05/17/2013 23:25 QUE Feldman removal of L atrial appendage, insertion TPW Implantation of automatic cardiac defibrillator ([id number]) in 2012 at 67 Years. Comments: 10/29/2015 12:21 QUE Lizarraga upgraded to STOCK CHECKERER-d Balloon angioplasty of coronary artery ([id number]) in 2008 at 63 Years. Comments: 10/04/2015 17:18 QUE Marte stent placement CABG - Coronary artery bypass graft ([id number]) in 2006 at 61 Years. Comments: 04/09/2018 9:39 QUE Phan x4 Ankle ([id number]) in 1997 at 52 Years. Comments: 10/04/2015 17:19 QUE Marte surgery Appendectomy (830975159) in 1993 at 48 Years. Amputation finger ([id number]) in 1970 at 25 Years. Comments: 03/09/2019 13:24 QUE Phan correction: left 3rd 10/04/2015 17:19 QUE Marte left second Colonoscopy ([id number]). Esophagogastroduodenoscopy (088902202). Social History: Social & Psychosocial Habits Alcohol 02/13/2025 Use: Never 02/13/2025Risk Assessment: Denies Alcohol Use Employment/School 01/25/2025 Status: Retired Substance Abuse 02/13/2025Risk Assessment: Denies Substance Abuse 02/13/2025 Use: Never Tobacco 02/13/2025Risk Assessment: Low Risk 02/13/2025 Tobacco Use: Former smoker, quit more Started at age: 14 Years Stopped at age: 32 Years Comment: 47 years ago - 12/24/2018 08:25 - Stephanie Hall RN 02/13/2025 Tobacco Use: snuff Type: Oral (Snuff, Chew) Home/Environment 02/13/2025 Living situation: Home/Independent Safe place to go: Yes Domestic Concerns None Lives In Single level home Current Home Treatments Blood Glucose monitoring, coumadn monitor Special Services and Community Resources None Spouse Name Monica Marital Status of Patient if Patient Independent Adult: Nutrition/Health 02/13/2025 Type of diet: Regular, low salt, low carb Appetite Fair Eating Difficulties None Sexual 02/13/2025 Sexually active: No Physical Examination No qualifying data available General: Alert and oriented. Airway: Mallampati classification: II (soft palate, fauces, uvula visible). Dentition Evaluation: Intact. Respiratory: Lungs are clear to auscultation, Respirations are non-labored. Cardiovascular: Normal rate, Regular rhythm. Heart Sounds: Normal. Neurologic: Alert, Oriented. Review / Management Results review: No qualifying data available . Documentation reviewed: Current records. Assessment and Plan [place] [employer]esthesiologists (ASA) physical status classification: Class III. Anesthetic Preoperative Plan Premedication: intravenous. Anesthetic technique: MAC. Induction: intravenously. Maintenance airway: Mask. Postoperative pain management: Per surgeon. Risks discussed: nausea, vomiting, headache, sore throat, dental injury, hypotension, allergic reaction, serious complications. Informed consent: signed by patient. Notes: Patient seen and evaluated pre-operatively by Anesthesiologist. ASA 3 or greater due to the following comorbidities: atrial fibrillation (on Coumadin), AICD, GARY (01/01) anxiety, aortic valve stenosis (s/p TAVR 2017) arthritis, asthma (denies recent exacerbation, managed with inhalers) benign colon polyp, coronary artery disease (s/p PCI to RCA after CABG-ORTIZ to LAD / D1 and SVG to PDA) cardiomyopathy, cataract, chronic kidney disease, claustrophobia, diabetes mellitus type 2, dyslipidemia, dyspnea, fibrosis oflung, gout, hard of hearing (utilizes hearing aid) hypertension, COVID (2023) mitral valve stenosis(s/p mitral valve repair) ventricular tachycardia, insomnia, microcytic anemia, panic attack, peripheral artery disease, and skin cancer. . Digitally Signed by RASHEEDA BEE DO on 02/24/2025 08:22 AM [id number] Telephone encounter Note* Telephone Encounter - Jonathan Hawkins [facility] - 02/21/2025 7:54 AM EDT [facility] Anticoagulation Episode Summary Anticoagulation Care Providers Provider Role Specialty Phone number George Mata MD [facility] Internal Medicine [phone] Bessy Valverde is a 79 year old year old male patient being evaluated today for a Telemanagement visit. Patient is currently on the following anticoagulant(s) Warfarin. Labs Lab Results Component Value Date INR 4.0 (A) 02/21/2025 INR 3.0 02/14/2025 INR 2.8 02/07/2025 Lab Results Component Value Date HB 11.3 (L) 09/06/2024 HB 12.2 (L) 01/25/2024 HB 12.0 (L) 01/23/2023 Lab Results Component Value Date HCT 33.9 (L) 09/06/2024 HCT 37.8 (L) 01/25/2024 HCT 37.4 (L) 01/23/2023 Lab Results Component Value Date PLT 141 (L) 09/06/2024 PLT 125 (L) 01/25/2024 PLT 128 (L) 01/23/2023 Lab Results Component Value Date CREAT 1.66 (H) 09/06/2024 CREAT 1.30 (H) 01/25/2024 CREAT 1.35 (H) 07/29/2023 No components found for: TBILI3 Lab Results Component Value Date ALT 15 09/06/2024 ALT 20 01/25/2024 ALT 19 07/29/2023 Lab Results Component Value Date AST 21 09/06/2024 AST 24 01/25/2024 AST 27 07/29/2023 Estimated Creatinine Clearance: 33.9 mL/min (A) (based on SCr of 1.66 mg/dL (H)). ALLERGIES No Known Allergies Indication for Warfarin: Anticoagulation Episode Summary Current INR goal: 2.0-3.0 Assessment: INR result of 4.0 is SUPRAtherapeutic due to: APAP or NSAID use Plan: Current Warfarin Dosing As of 02/21/2025 Full warfarin instructions: 02/21: Hold; Otherwise 5 mg every Mon, Fri; 2.5 mg all other days Called and spoke to patient/caregiver Advised patient to hold 1 dose then continue current regimen Next home INR check scheduled on 02/28 Patient is scheduled for DCC and pacemaker change out on 02/24. No warfarin hold. Patient verbalizes understanding of the plan. Patient advised to call the PAC with any medication changes, bleeding/bruising concerns, recent changes in vitamin k consumption, if any procedures are coming up, if they have been ill or in the hospital, and if they have missed any doses of warfarin. Jonathan Hawkins RPh Clinical Pharmacist, Pharmacy Anticoagulation Clinic Pharmacy [facility] Pager: [phone]. [facility]07-15-2025 Miscellaneous Notes* Telephone Encounter - Jonathan Hawkins RPh - 02/21/2025 7:54 AM EDT [facility] Anticoagulation Episode Summary Anticoagulation Care Providers Provider Role Specialty Phone number George Mata MD [facility] Internal Medicine [phone] Bessy Valverde is a 79 year old year old male patient being evaluated today for a Telemanagement visit. Patient is currently on the following anticoagulant(s) Warfarin. Labs Lab Results Component Value Date INR 4.0 (A) 02/21/2025 INR 3.0 02/14/2025 INR 2.8 02/07/2025 Lab Results Component Value Date HB 11.3 (L) 09/06/2024 HB 12.2 (L) 01/25/2024 HB 12.0 (L) 01/23/2023 Lab Results Component Value Date HCT 33.9 (L) 09/06/2024 HCT 37.8 (L) 01/25/2024 HCT 37.4 (L) 01/23/2023 Lab Results Component Value Date PLT 141 (L) 09/06/2024 PLT 125 (L) 01/25/2024 PLT 128 (L) 01/23/2023 Lab Results Component Value Date CREAT 1.66 (H) 09/06/2024 CREAT 1.30 (H) 01/25/2024 CREAT 1.35 (H) 07/29/2023 No components found for: TBILI3 Lab Results Component Value Date ALT 15 09/06/2024 ALT 20 01/25/2024 ALT 19 07/29/2023 Lab Results Component Value Date AST 21 09/06/2024 AST 24 01/25/2024 AST 27 07/29/2023 Estimated Creatinine Clearance: 33.9 mL/min (A) (based on SCr of 1.66 mg/dL (H)). ALLERGIES No Known Allergies Indication for Warfarin: Anticoagulation Episode Summary Current INR goal: 2.0-3.0 Assessment: INR result of 4.0 is SUPRAtherapeutic due to: APAP or NSAID use Plan: Current Warfarin Dosing As of 02/21/2025 Full warfarin instructions: 02/21: Hold; Otherwise 5 mg every Mon, Fri; 2.5 mg all other days Called and spoke to patient/caregiver Advised patient to hold 1 dose then continue current regimen Next home INR check scheduled on 02/28 Patient is scheduled for DCC and pacemaker change out on 02/24. No warfarin hold. Patient verbalizes understanding of the plan. Patient advised to call the PAC with any medication changes, bleeding/bruising concerns, recent changes in vitamin k consumption, if any procedures are coming up, if they have been ill or in the hospital, and if they have missed any doses of warfarin. Jonathan Hawkins RPh Clinical Pharmacist, Pharmacy Anticoagulation Clinic Pharmacy Anticoagulation Clinic Pager: [phone]. [facility] Telephone encounter Note * Telephone Encounter - Jonathan Hawkins RPh - 02/14/2025 10:25 AM EDT [facility] Anticoagulation Episode Summary Anticoagulation Care Providers Provider Role Specialty Phone number George Mata MD Responsible Internal Medicine [phone] Bessy Valverde is a 79 year old year old male patient being evaluated today for a Telemanagement visit. Patient is currently on the following anticoagulant(s) Warfarin. Labs Lab Results Component Value Date INR 3.0 02/14/2025 INR 2.8 02/07/2025 INR 2.5 01/31/2025 Lab Results Component Value Date HB 11.3 (L) 09/06/2024 HB 12.2 (L) 01/25/2024 HB 12.0 (L) 01/23/2023 Lab Results Component Value Date HCT 33.9 (L) 09/06/2024 HCT 37.8 (L) 01/25/2024 HCT 37.4 (L) 01/23/2023 Lab Results Component Value Date PLT 141 (L) 09/06/2024 PLT 125 (L) 01/25/2024 PLT 128 (L) 01/23/2023 Lab Results Component Value Date CREAT 1.66 (H) 09/06/2024 CREAT 1.30 (H) 01/25/2024 CREAT 1.35 (H) 07/29/2023 No components found for: TBILI3 Lab Results Component Value Date ALT 15 09/06/2024 ALT 20 01/25/2024 ALT 19 07/29/2023 Lab Results Component Value Date AST 21 09/06/2024 AST 24 01/25/2024 AST 27 07/29/2023 Estimated Creatinine Clearance: 33.9 mL/min (A) (based on SCr of 1.66 mg/dL (H)). ALLERGIES No Known Allergies Indication for Warfarin: Anticoagulation Episode Summary Current INR goal: 2.0-3.0 Assessment: INR result of 3.0 is therapeutic Plan: Current Warfarin Dosing As of 02/14/2025 Full warfarin instructions: 5 mg every Mon, Fri; 2.5 mg all other days Called and spoke to patient/caregiver Advised patient to continue current weekly dose as noted above Next home INR check scheduled on 02/21/2025 Patient verbalizes understanding of the plan. Patient advised to call the PAC with any medication changes, bleeding/bruising concerns, recent changes in vitamin k consumption, if any procedures are coming up, if they have been ill or in the hospital, and if they have missed any doses of warfarin. Jonathan Hawkins RPh Clinical Pharmacist, Pharmacy Anticoagulation Clinic Pharmacy Anticoagulation Clinic Pager: [phone]. [facility]07-08-2025 Miscellaneous Notes* Telephone Encounter - Jonathan Hawkins RPh - 02/14/2025 10:25 AM EDT [facility] Anticoagulation Episode Summary Anticoagulation Care Providers Provider Role Specialty Phone number George Mata MD Responsible Internal Medicine [phone] Bessy Valverde is a 79 year old year old male patient being evaluated today for a Telemanagement visit. Patient is currently on the following anticoagulant(s) Warfarin. Labs Lab Results Component Value Date INR 3.0 02/14/2025 INR 2.8 02/07/2025 INR 2.5 01/31/2025 Lab Results Component Value Date HB 11.3 (L) 09/06/2024 HB 12.2 (L) 01/25/2024 HB 12.0 (L) 01/23/2023 Lab Results Component Value Date HCT 33.9 (L) 09/06/2024 HCT 37.8 (L) 01/25/2024 HCT 37.4 (L) 01/23/2023 Lab Results Component Value Date PLT 141 (L) 09/06/2024 PLT 125 (L) 01/25/2024 PLT 128 (L) 01/23/2023 Lab Results Component Value Date CREAT 1.66 (H) 09/06/2024 CREAT 1.30 (H) 01/25/2024 CREAT 1.35 (H) 07/29/2023 No components found for: TBILI3 Lab Results Component Value Date ALT 15 09/06/2024 ALT 20 01/25/2024 ALT 19 07/29/2023 Lab Results Component Value Date AST 21 09/06/2024 AST 24 01/25/2024 AST 27 07/29/2023 Estimated Creatinine Clearance: 33.9 mL/min (A) (based on SCr of 1.66 mg/dL (H)). ALLERGIES No Known Allergies Indication for Warfarin: Anticoagulation Episode Summary Current INR goal: 2.0-3.0 Assessment: INR result of 3.0 is therapeutic Plan: Current Warfarin Dosing As of 02/14/2025 Full warfarin instructions: 5 mg every Mon, Fri; 2.5 mg all other days Called and spoke to patient/caregiver Advised patient to continue current weekly dose as noted above Next home INR check scheduled on 02/21/2025 Patient verbalizes understanding of the plan. Patient advised to call the PAC with any medication changes, bleeding/bruising concerns, recent changes in vitamin k consumption, if any procedures are coming up, if they have been ill or in the hospital, and if they have missed any doses of warfarin. Jonathan Hawkins RPh Clinical Pharmacist, Pharmacy Anticoagulation Clinic [facility] Pager: [phone]. [facility] Telephone encounter Note * Telephone Encounter - Jonathan Hawkins RPh - 02/07/2025 2:38 PM EDT [facility] Anticoagulation Episode Summary Anticoagulation Care Providers Provider Role Specialty Phone number George Mata MD Responsible Internal Medicine [phone] Bessy Valverde is a 79 year old year old male patient being evaluated today for a Telemanagement visit. Patient is currently on the following anticoagulant(s) Warfarin. Labs Lab Results Component Value Date INR 2.8 02/07/2025 INR 2.5 01/31/2025 INR 3.2 (A) 01/24/2025 Lab Results Component Value Date HB 11.3 (L) 09/06/2024 HB 12.2 (L) 01/25/2024 HB 12.0 (L) 01/23/2023 Lab Results Component Value Date HCT 33.9 (L) 09/06/2024 HCT 37.8 (L) 01/25/2024 HCT 37.4 (L) 01/23/2023 Lab Results Component Value Date PLT 141 (L) 09/06/2024 PLT 125 (L) 01/25/2024 PLT 128 (L) 01/23/2023 Lab Results Component Value Date CREAT 1.66 (H) 09/06/2024 CREAT 1.30 (H) 01/25/2024 CREAT 1.35 (H) 07/29/2023 No components found for: TBILI3 Lab Results Component Value Date ALT 15 09/06/2024 ALT 20 01/25/2024 ALT 19 07/29/2023 Lab Results Component Value Date AST 21 09/06/2024 AST 24 01/25/2024 AST 27 07/29/2023 Estimated Creatinine Clearance: 33.9 mL/min (A) (based on SCr of 1.66 mg/dL (H)). ALLERGIES No Known Allergies Indication for Warfarin: Anticoagulation Episode Summary Current INR goal: 2.0-3.0 Assessment: INR result of 2.8 is therapeutic Plan: Current Warfarin Dosing As of 02/07/2025 Full warfarin instructions: 5 mg every Mon, Fri; 2.5 mg all other days Called and spoke to patient/caregiver Advised patient to continue current weekly dose as noted above Next home INR check scheduled on 02/14/2025 Patient's caregiver verbalizes understanding of the plan. Patient advised to call the PAC with any medication changes, bleeding/bruising concerns, recent changes in vitamin k consumption, if any procedures are coming up, if they have been ill or in the hospital, and if they have missed any doses of warfarin. Jonathan Hawkins RPh Clinical Pharmacist, Pharmacy Anticoagulation Clinic Pharmacy Antico[facility] Pager: [phone]. [facility]07[facility] Miscellaneous Notes* Telephone Encounter - Jonathan Hawkins RPh - 02/07/2025 2:38 PM EDT [facility] Anticoagulation Episode Summary Anticoagulation Care Providers Provider Role Specialty Phone number George Mata MD [facility] Internal Medicine [phone] Besys Valverde is a 79 year old year old male patient being evaluated today for a Telemanagement visit. Patient is currently on the following anticoagulant(s) Warfarin. Labs Lab Results Component Value Date INR 2.8 02/07/2025 INR 2.5 01/31/2025 INR 3.2 (A) 01/24/2025 Lab Results Component Value Date HB 11.3 (L) 09/06/2024 HB 12.2 (L) 01/25/2024 HB 12.0 (L) 01/23/2023 Lab Results Component Value Date HCT 33.9 (L) 09/06/2024 HCT 37.8 (L) 01/25/2024 HCT 37.4 (L) 01/23/2023 Lab Results Component Value Date PLT 141 (L) 09/06/2024 PLT 125 (L) 01/25/2024 PLT 128 (L) 01/23/2023 Lab Results Component Value Date CREAT 1.66 (H) 09/06/2024 CREAT 1.30 (H) 01/25/2024 CREAT 1.35 (H) 07/29/2023 No components found for: TBILI3 Lab Results Component Value Date ALT 15 09/06/2024 ALT 20 01/25/2024 ALT 19 07/29/2023 Lab Results Component Value Date AST 21 09/06/2024 AST 24 01/25/2024 AST 27 07/29/2023 Estimated Creatinine Clearance: 33.9 mL/min (A) (based on SCr of 1.66 mg/dL (H)). ALLERGIES No Known Allergies Indication for Warfarin: Anticoagulation Episode Summary Current INR goal: 2.0-3.0 Assessment: INR result of 2.8 is therapeutic Plan: Current Warfarin Dosing As of 02/07/2025 Full warfarin instructions: 5 mg every Mon, Fri; 2.5 mg all other days Called and spoke to patient/caregiver Advised patient to continue current weekly dose as noted above Next home INR check scheduled on 02/14/2025 Patient's caregiver verbalizes understanding of the plan. Patient advised to call the PAC with any medication changes, bleeding/bruising concerns, recent changes in vitamin k consumption, if any procedures are coming up, if they have been ill or in the hospital, and if they have missed any doses of warfarin. Jonathan Hawkins RPh Clinical Pharmacist, Pharmacy Anticoagulation Clinic Pharmacy Anticoagulation Clinic Pager: [phone]. documented in this encounterG[facility]06-24-[facility] Telephone encounter Note * Telephone Encounter - Jonathan Hawkins RPh - 01/31/2025 8:08 AM EDT [facility] Anticoagulation Episode Summary Anticoagulation Care Providers Provider Role Specialty Phone number MataGeorge gerber MD Responsible Internal Medicine [phone] Bessy Valverde is a 79 year old year old male patient being evaluated today for a Telemanagement visit. Patient is currently on the following anticoagulant(s) Warfarin. Labs Lab Results Component Value Date INR 2.5 01/31/2025 INR 3.2 (A) 01/24/2025 INR 1.8 (A) 01/17/2025 Lab Results Component Value Date HB 11.3 (L) 09/06/2024 HB 12.2 (L) 01/25/2024 HB 12.0 (L) 01/23/2023 Lab Results Component Value Date HCT 33.9 (L) 09/06/2024 HCT 37.8 (L) 01/25/2024 HCT 37.4 (L) 01/23/2023 Lab Results Component Value Date PLT 141 (L) 09/06/2024 PLT 125 (L) 01/25/2024 PLT 128 (L) 01/23/2023 Lab Results Component Value Date CREAT 1.66 (H) 09/06/2024 CREAT 1.30 (H) 01/25/2024 CREAT 1.35 (H) 07/29/2023 No components found for: TBILI3 Lab Results Component Value Date ALT 15 09/06/2024 ALT 20 01/25/2024 ALT 19 07/29/2023 Lab Results Component Value Date AST 21 09/06/2024 AST 24 01/25/2024 AST 27 07/29/2023 Estimated Creatinine Clearance: 33.9 mL/min (A) (based on SCr of 1.66 mg/dL (H)). ALLERGIES No Known Allergies Indication for Warfarin: Anticoagulation Episode Summary Current INR goal: 2.0-3.0 Assessment: INR result of 2.5 is therapeutic Plan: Current Warfarin Dosing As of 01/31/2025 Full warfarin instructions: 5 mg every Mon, Fri; 2.5 mg all other days Called and spoke to patient/caregiver Advised patient to continue current weekly dose as noted above Next home INR check scheduled on 02/07/2025 Patient verbalizes understanding of the plan. Patient advised to call the PAC with any medication changes, bleeding/bruising concerns, recent changes in vitamin k consumption, if any procedures are coming up, if they have been ill or in the hospital, and if they have missed any doses of warfarin. Jonathan Hawkins RPh Clinical Pharmacist, Pharmacy Anticoagulation Clinic Pharmacy Anticoagulation Clinic Pager: [phone]. [facility] Miscellaneous Notes* Telephone Encounter - Jonathan Hawkins RPh - 01/31/2025 8:08 AM EDT [facility] Anticoagulation Episode Summary Anticoagulation Care Providers Provider Role Specialty Phone number George Mata MD [facility] Internal Medicine [phone] Bessy Valverde is a 79 year old year old male patient being evaluated today for a Telemanagement visit. Patient is currently on the following anticoagulant(s) Warfarin. Labs Lab Results Component Value Date INR 2.5 01/31/2025 INR 3.2 (A) 01/24/2025 INR 1.8 (A) 01/17/2025 Lab Results Component Value Date HB 11.3 (L) 09/06/2024 HB 12.2 (L) 01/25/2024 HB 12.0 (L) 01/23/2023 Lab Results Component Value Date HCT 33.9 (L) 09/06/2024 HCT 37.8 (L) 01/25/2024 HCT 37.4 (L) 01/23/2023 Lab Results Component Value Date PLT 141 (L) 09/06/2024 PLT 125 (L) 01/25/2024 PLT 128 (L) 01/23/2023 Lab Results Component Value Date CREAT 1.66 (H) 09/06/2024 CREAT 1.30 (H) 01/25/2024 CREAT 1.35 (H) 07/29/2023 No components found for: TBILI3 Lab Results Component Value Date ALT 15 09/06/2024 ALT 20 01/25/2024 ALT 19 07/29/2023 Lab Results Component Value Date AST 21 09/06/2024 AST 24 01/25/2024 AST 27 07/29/2023 Estimated Creatinine Clearance: 33.9 mL/min (A) (based on SCr of 1.66 mg/dL (H)). ALLERGIES No Known Allergies Indication for Warfarin: Anticoagulation Episode Summary Current INR goal: 2.0-3.0 Assessment: INR result of 2.5 is therapeutic Plan: Current Warfarin Dosing As of 01/31/2025 Full warfarin instructions: 5 mg every Mon, Fri; 2.5 mg all other days Called and spoke to patient/caregiver Advised patient to continue current weekly dose as noted above Next home INR check scheduled on 02/07/2025 Patient verbalizes understanding of the plan. Patient advised to call the PAC with any medication changes, bleeding/bruising concerns, recent changes in vitamin k consumption, if any procedures are coming up, if they have been ill or in the hospital, and if they have missed any doses of warfarin. Jonathan Hawkins RPh Clinical Pharmacist, Pharmacy Anticoagulation Clinic Pharmacy Anticoagulation Clinic Pager: [phone]. documented in this encounterGlen[facility] Hospital06-23-2025 Telephone encounter Note * Telephone Encounter - Sandi Denton RN - 01/30/2025 8:57 AM EDT Patient's Monica calls and states that patient has a history of gout. reports that currently patient's bilateral feet hurt and are swollen. is asking if provider can send in prescription to pharmacy. Advised that patient needs seen in office for evaluation. voices understanding, however patient is declining to come into appointment. will call back if patient decides to come in for appointment. Sandi Denton RN [facility] Miscellaneous Notes* Telephone Encounter - Sandi Denton RN - 01/30/2025 8:57 AM EDT Patient's Monica calls and states that patient has a history of gout. reports that currently patient's bilateral feet hurt and are swollen. is asking if provider can send in prescription to pharmacy. Advised that patient needs seen in office for evaluation. voices understanding, however patient is declining to come into appointment. will call back if patient decides to come in for appointment. Sandi Denton RN documented in this encounterGlen[facility] Hospital06-17-2025 Telephone encounter Note * Telephone Encounter - Jonathan Hawkins, [facility] - 01/24/2025 8:09 AM EDT [facility] Anticoagulation Episode Summary Anticoagulation Care Providers Provider Role Specialty Phone number George Mata MD Responsible Internal Medicine [phone] Bessy Valverde is a 79 year old year old male patient being evaluated today for a Telemanagement visit. Patient is currently on the following anticoagulant(s) Warfarin. Labs Lab Results Component Value Date INR 3.2 (A) 01/24/2025 INR 1.8 (A) 01/17/2025 INR 2.3 01/10/2025 Lab Results Component Value Date HB 11.3 (L) 09/06/2024 HB 12.2 (L) 01/25/2024 HB 12.0 (L) 01/23/2023 Lab Results Component Value Date HCT 33.9 (L) 09/06/2024 HCT 37.8 (L) 01/25/2024 HCT 37.4 (L) 01/23/2023 Lab Results Component Value Date PLT 141 (L) 09/06/2024 PLT 125 (L) 01/25/2024 PLT 128 (L) 01/23/2023 Lab Results Component Value Date CREAT 1.66 (H) 09/06/2024 CREAT 1.30 (H) 01/25/2024 CREAT 1.35 (H) 07/29/2023 No components found for: TBILI3 Lab Results Component Value Date ALT 15 09/06/2024 ALT 20 01/25/2024 ALT 19 07/29/2023 Lab Results Component Value Date AST 21 09/06/2024 AST 24 01/25/2024 AST 27 07/29/2023 Estimated Creatinine Clearance: 33.9 mL/min (A) (based on SCr of 1.66 mg/dL (H)). ALLERGIES No Known Allergies Indication for Warfarin: Anticoagulation Episode Summary Current INR goal: 2.0-3.0 Assessment: INR result of 3.2 is SUPRAtherapeutic due to: No obvious cause (patient denies medication change, grapefruit/cranberry/pomegranate/memo ingestion, OTC medication use, change in herbal/nutritional supplement, accidental overdosage, change in warfarin tablet shape or color, change in vit K consumption, recent illness (NVD, fever), any changes to general health, changes in tobacco use, or EtOH consumption) Plan: Current Warfarin Dosing As of 01/24/2025 Full warfarin instructions: 5 mg every Mon, Fri; 2.5 mg all other days Called and spoke to patient/caregiver spouse Advised patient to continue current weekly dose as noted above Next home INR check scheduled on 01/31/2025 Patient's caregiver verbalizes understanding of the plan. Patient advised to call the PAC with any medication changes, bleeding/bruising concerns, recent changes in vitamin k consumption, if any procedures are coming up, if they have been ill or in the hospital, and if they have missed any doses of warfarin. Jonathan Hawkins RPh Clinical Pharmacist, Pharmacy Anticoagulation Clinic Pharmacy Anticoagulation Clinic Pager: [phone]. [facility] Miscellaneous Notes* Telephone Encounter - Jonathan Hawkins RPh - 01/24/2025 8:09 AM EDT [facility] Anticoagulation Episode Summary Anticoagulation Care Providers Provider Role Specialty Phone number George Mata MD [facility] Internal Medicine [phone] Bessy Valverde is a 79 year old year old male patient being evaluated today for a Telemanagement visit. Patient is currently on the following anticoagulant(s) Warfarin. Labs Lab Results Component Value Date INR 3.2 (A) 01/24/2025 INR 1.8 (A) 01/17/2025 INR 2.3 01/10/2025 Lab Results Component Value Date HB 11.3 (L) 09/06/2024 HB 12.2 (L) 01/25/2024 HB 12.0 (L) 01/23/2023 Lab Results Component Value Date HCT 33.9 (L) 09/06/2024 HCT 37.8 (L) 01/25/2024 HCT 37.4 (L) 01/23/2023 Lab Results Component Value Date PLT 141 (L) 09/06/2024 PLT 125 (L) 01/25/2024 PLT 128 (L) 01/23/2023 Lab Results Component Value Date CREAT 1.66 (H) 09/06/2024 CREAT 1.30 (H) 01/25/2024 CREAT 1.35 (H) 07/29/2023 No components found for: TBILI3 Lab Results Component Value Date ALT 15 09/06/2024 ALT 20 01/25/2024 ALT 19 07/29/2023 Lab Results Component Value Date AST 21 09/06/2024 AST 24 01/25/2024 AST 27 07/29/2023 Estimated Creatinine Clearance: 33.9 mL/min (A) (based on SCr of 1.66 mg/dL (H)). ALLERGIES No Known Allergies Indication for Warfarin: Anticoagulation Episode Summary Current INR goal: 2.0-3.0 Assessment: INR result of 3.2 is SUPRAtherapeutic due to: No obvious cause (patient denies medication change, grapefruit/cranberry/pomegranate/memo ingestion, OTC medication use, change in herbal/nutritional supplement, accidental overdosage, change in warfarin tablet shape or color, change in vit K consumption, recent illness (NVD, fever), any changes to general health, changes in tobacco use, or EtOH consumption) Plan: Current Warfarin Dosing As of 01/24/2025 Full warfarin instructions: 5 mg every Mon, Fri; 2.5 mg all other days Called and spoke to patient/caregiver spouse Advised patient to continue current weekly dose as noted above Next home INR check scheduled on 01/31/2025 Patient's caregiver verbalizes understanding of the plan. Patient advised to call the PAC with any medication changes, bleeding/bruising concerns, recent changes in vitamin k consumption, if any procedures are coming up, if they have been ill or in the hospital, and if they have missed any doses of warfarin. Jonathan Hawkins RPh Clinical Pharmacist, Pharmacy Anticoagulation Clinic Pharmacy Anticoagulation Clinic Pager: [phone]. documented in this encounterGlen[facility]06-10-[facility] Telephone encounter Note * Telephone Encounter - Jonathan Hawkins RPh - 01/17/2025 10:31 AM EDT [facility] Anticoagulation Episode Summary Anticoagulation Care Providers Provider Role Specialty Phone number MataGeorge morris MD [facility] Internal Medicine [phone] Bessy Valverde is a 79 year old year old male patient being evaluated today for a Telemanagement visit. Patient is currently on the following anticoagulant(s) Warfarin. Labs Lab Results Component Value Date INR 1.8 (A) 01/17/2025 INR 2.3 01/10/2025 INR 3.2 (A) 12/13/2024 Lab Results Component Value Date HB 11.3 (L) 09/06/2024 HB 12.2 (L) 01/25/2024 HB 12.0 (L) 01/23/2023 Lab Results Component Value Date HCT 33.9 (L) 09/06/2024 HCT 37.8 (L) 01/25/2024 HCT 37.4 (L) 01/23/2023 Lab Results Component Value Date PLT 141 (L) 09/06/2024 PLT 125 (L) 01/25/2024 PLT 128 (L) 01/23/2023 Lab Results Component Value Date CREAT 1.66 (H) 09/06/2024 CREAT 1.30 (H) 01/25/2024 CREAT 1.35 (H) 07/29/2023 No components found for: TBILI3 Lab Results Component Value Date ALT 15 09/06/2024 ALT 20 01/25/2024 ALT 19 07/29/2023 Lab Results Component Value Date AST 21 09/06/2024 AST 24 01/25/2024 AST 27 07/29/2023 Estimated Creatinine Clearance: 33.9 mL/min (A) (based on SCr of 1.66 mg/dL (H)). ALLERGIES No Known Allergies Indication for Warfarin: Anticoagulation Episode Summary Current INR goal: 2.0-3.0 Assessment: INR result of 1.8 is SUBtherapeutic due to: held doses last week Plan: Current Warfarin Dosing As of 01/17/2025 Full warfarin instructions: 01/17: 5 mg; Otherwise 5 mg every Mon, Fri; 2.5 mg all other days Called and spoke to patient/caregiver Advised patient to increase dose for 1 day only then resume weekly regimen Next home INR check scheduled on 01/24/2025 Patient verbalizes understanding of the plan. Patient advised to call the PAC with any medication changes, bleeding/bruising concerns, recent changes in vitamin k consumption, if any procedures are coming up, if they have been ill or in the hospital, and if they have missed any doses of warfarin. Jonathan Hawkins RPh Clinical Pharmacist, Pharmacy Anticoagulation Clinic Pharmacy Anticoagulation [facility] Pager: [phone]. [facility] Miscellaneous Notes* Telephone Encounter - Jonathan Hawkins RPh - 01/17/2025 10:31 AM EDT [facility] Anticoagulation Episode Summary Anticoagulation Care Providers Provider Role Specialty Phone number George Mata MD Responsible Internal Medicine [phone] Bessy Valverde is a 79 year old year old male patient being evaluated today for a Telemanagement visit. Patient is currently on the following anticoagulant(s) Warfarin. Labs Lab Results Component Value Date INR 1.8 (A) 01/17/2025 INR 2.3 01/10/2025 INR 3.2 (A) 12/13/2024 Lab Results Component Value Date HB 11.3 (L) 09/06/2024 HB 12.2 (L) 01/25/2024 HB 12.0 (L) 01/23/2023 Lab Results Component Value Date HCT 33.9 (L) 09/06/2024 HCT 37.8 (L) 01/25/2024 HCT 37.4 (L) 01/23/2023 Lab Results Component Value Date PLT 141 (L) 09/06/2024 PLT 125 (L) 01/25/2024 PLT 128 (L) 01/23/2023 Lab Results Component Value Date CREAT 1.66 (H) 09/06/2024 CREAT 1.30 (H) 01/25/2024 CREAT 1.35 (H) 07/29/2023 No components found for: TBILI3 Lab Results Component Value Date ALT 15 09/06/2024 ALT 20 01/25/2024 ALT 19 07/29/2023 Lab Results Component Value Date AST 21 09/06/2024 AST 24 01/25/2024 AST 27 07/29/2023 Estimated Creatinine Clearance: 33.9 mL/min (A) (based on SCr of 1.66 mg/dL (H)). ALLERGIES No Known Allergies Indication for Warfarin: Anticoagulation Episode Summary Current INR goal: 2.0-3.0 Assessment: INR result of 1.8 is SUBtherapeutic due to: held doses last week Plan: Current Warfarin Dosing As of 01/17/2025 Full warfarin instructions: 01/17: 5 mg; Otherwise 5 mg every Mon, Fri; 2.5 mg all other days Called and spoke to patient/caregiver Advised patient to increase dose for 1 day only then resume weekly regimen Next home INR check scheduled on 01/24/2025 Patient verbalizes understanding of the plan. Patient advised to call the PAC with any medication changes, bleeding/bruising concerns, recent changes in vitamin k consumption, if any procedures are coming up, if they have been ill or in the hospital, and if they have missed any doses of warfarin. Jonathan Hawkins RPh Clinical Pharmacist, Pharmacy Anticoagulation Clinic Pharmacy Anticoagulation Clinic Pager: [phone]. documented in this encounterG[facility]06-[facility] Telephone encounter Note * Telephone Encounter - Jonathan Hawkins RPh - 01/10/2025 4:20 PM EDT [facility] Anticoagulation Episode Summary Anticoagulation Care Providers Provider Role Specialty Phone number George Mata MD [facility] Internal Medicine [phone] Bessy Valverde is a 79 year old year old male patient being evaluated today for a Telemanagement visit. Patient is currently on the following anticoagulant(s) Warfarin. Labs Lab Results Component Value Date INR 2.3 01/10/2025 INR 3.2 (A) 12/13/2024 INR 2.8 11/29/2024 Lab Results Component Value Date HB 11.3 (L) 09/06/2024 HB 12.2 (L) 01/25/2024 HB 12.0 (L) 01/23/2023 Lab Results Component Value Date HCT 33.9 (L) 09/06/2024 HCT 37.8 (L) 01/25/2024 HCT 37.4 (L) 01/23/2023 Lab Results Component Value Date PLT 141 (L) 09/06/2024 PLT 125 (L) 01/25/2024 PLT 128 (L) 01/23/2023 Lab Results Component Value Date CREAT 1.66 (H) 09/06/2024 CREAT 1.30 (H) 01/25/2024 CREAT 1.35 (H) 07/29/2023 No components found for: TBILI3 Lab Results Component Value Date ALT 15 09/06/2024 ALT 20 01/25/2024 ALT 19 07/29/2023 Lab Results Component Value Date AST 21 09/06/2024 AST 24 01/25/2024 AST 27 07/29/2023 Estimated Creatinine Clearance: 33.9 mL/min (A) (based on SCr of 1.66 mg/dL (H)). ALLERGIES No Known Allergies Indication for Warfarin: Anticoagulation Episode Summary Current INR goal: 2.0-3.0 Assessment: INR result of 2.3 is therapeutic Was in [facility] 12/31-01/04 for elevated HR and A fib exacerbation. Plan: Current Warfarin Dosing As of 01/10/2025 Full warfarin instructions: 01/10: Hold; 01/11: Hold; 01/12: Hold; Otherwise 5 mg every Mon, Fri; 2.5 mg all other days Called and spoke to patient/caregiver spouse Patient held for 2 days and will hold for 2 more days prior to derm procedure on 01/12 to remove skincancer from face. Next home INR check scheduled on 01/17/2025 Patient's caregiver verbalizes understanding of the plan. Patient advised to call the PAC with any medication changes, bleeding/bruising concerns, recent changes in vitamin k consumption, if any procedures are coming up, if they have been ill or in the hospital, and if they have missed any doses of warfarin. Jonathan Hawkins [facility] Clinical Pharmacist, Pharmacy Anticoagulation Clinic Pharmacy Anticoagulation Clinic Pager: [phone]. [facility]06-03-[facility] Miscellaneous Notes* Telephone Encounter - Jonathan Hawkins RPh - 01/10/2025 4:20 PM EDT [facility] Anticoagulation Episode Summary Anticoagulation Care Providers Provider Role Specialty Phone number George Mata MD [facility] Internal Medicine [phone] Bessy Valverde is a 79 year old year old male patient being evaluated today for a Telemanagement visit. Patient is currently on the following anticoagulant(s) Warfarin. Labs Lab Results Component Value Date INR 2.3 01/10/2025 INR 3.2 (A) 12/13/2024 INR 2.8 11/29/2024 Lab Results Component Value Date HB 11.3 (L) 09/06/2024 HB 12.2 (L) 01/25/2024 HB 12.0 (L) 01/23/2023 Lab Results Component Value Date HCT 33.9 (L) 09/06/2024 HCT 37.8 (L) 01/25/2024 HCT 37.4 (L) 01/23/2023 Lab Results Component Value Date PLT 141 (L) 09/06/2024 PLT 125 (L) 01/25/2024 PLT 128 (L) 01/23/2023 Lab Results Component Value Date CREAT 1.66 (H) 09/06/2024 CREAT 1.30 (H) 01/25/2024 CREAT 1.35 (H) 07/29/2023 No components found for: [id number] Lab Results Component Value Date ALT 15 09/06/2024 ALT 20 01/25/2024 ALT 19 07/29/2023 Lab Results Component Value Date AST 21 09/06/2024 AST 24 01/25/2024 AST 27 07/29/2023 Estimated Creatinine Clearance: 33.9 mL/min (A) (based on SCr of 1.66 mg/dL (H)). ALLERGIES No Known Allergies Indication for Warfarin: Anticoagulation Episode Summary Current INR goal: 2.0-3.0 Assessment: INR result of 2.3 is therapeutic Was in [facility] 12/31-01/04 for elevated HR and A fib exacerbation. Plan: Current Warfarin Dosing As of 01/10/2025 Full warfarin instructions: 01/10: Hold; 01/11: Hold; 01/12: Hold; Otherwise 5 mg every Mon, Fri; 2.5 mg all other days Called and spoke to patient/caregiver spouse Patient held for 2 days and will hold for 2 more days prior to derm procedure on 01/12 to remove skincancer from face. Next home INR check scheduled on 01/17/2025 Patient's caregiver verbalizes understanding of the plan. Patient advised to call the PAC with any medication changes, bleeding/bruising concerns, recent changes in vitamin k consumption, if any procedures are coming up, if they have been ill or in the hospital, and if they have missed any doses of warfarin. Jonathan Hawkins RPh Clinical Pharmacist, [facility] Pager: [phone]. * Telephone Encounter - Jonathan Hawkins RPh - 01/10/2025 4:15 PM EDT Melanie Scruggs HUC MS 01/10/25 4:13 PM Note Pt. called stated pt. INR was 2.3 today. Pt. is having a procedure on 01/12/25. Pt. worriedhis procedure will not happen if his INR not under 2.0. Pt. requestig a return call at [phone] documented [facility] Telephone encounter Note * Telephone Encounter - Jonathan Hawkins RPh - 01/10/2025 4:15 PM EDT Melanie Scruggs HUC MS 01/10/25 4:13 PM Note Pt. called stated pt. INR was 2.3 today. Pt. is having a procedure on 01/12/25. Pt. worriedhis procedure will not happen if his INR not under 2.0. Pt. requestig a return call at [phone] [facility] Instructions* Patient Instructions* George Mata MD - 01/10/2025 12:16 PM EDT - Continue taking Entresto and metoprolol as prescribed; you should no longer take sotalol or spironolactone. - Weigh yourself daily. If you gain 3 pounds in 3 days, take one dose of furosemide (water pill) asinstructed. - Stop warfarin (Coumadin) as directed efore your dermatology procedure before your next pacemaker intervention. - Attend your dermatology appointment this with Dr. Lynette Naik in [place] for removalof the skin cancer lesion. - [facility] [place] to assess the device and battery. - Keep your device-center appointment with Dr. Moon on January 25. - Your recent labs for gout, diabetes, kidney function, and blood count have been completed; no newblood work is needed today. - Plan to return here for your annual follow-up in early July (after ). Call our office before scheduling to review whether any updated labs are needed. documented in this encounterG[facility]06-[facility]25 NoteHNO ID: [id number] Author: GEORGE MATA MD Service: ? Author Type: Physician Type: Progress Notes Filed: 01/10/2025 13:17 Note Text: This note was created using M/A-COM Technology Solutionsriter. Subjective Patient presents with: [facility] F/U Bessy Valverde is a 79 year old male here with . Recording using Agavideo software for draft documentation of the visit was discussed with the patient/authorized industrial sales representative; all questions welcomed and answered. Patient/authorized industrial sales representative agreed to proceed Paroxysmal Atrial Fibrillation: - Recent hospitalization from 12/31 to 01/04 for paroxysmal atrial fibrillation with failure of sotalol. - Reports previous episodes of tachycardia and palpitations, with a heart rate of 124 bpm prompting ER visit. - Symptoms have mostly resolved; occasional palpitations noted. - Pacemaker in place; follow-up appointment scheduled for battery evaluation. - Sotalol discontinued; currently on metoprolol. 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 CHF with Reduced EF: - Reports dyspnea consistent with baseline asthma symptoms. - Spironolactone discontinued during hospitalization. - Continues to take Entresto. - Bumetanide use adjusted to PRN based on weight gain of 3 lbs over 3 days. CAD: - History of valve replacement in 2012 and 2017. Acute Kidney Injury: - Recent hospitalization included diagnosis of acute kidney injury. Skin Cancer: - Scheduled for excision of a cancerous lesion on the left face this . - Biopsy confirmed malignancy; specific type not mentioned. - Bessy has a history of chewing snuff; advised to abstain post-surgery for better healing. Diabetes Mellitus: - Blood glucose levels range from 105 to 118 mg/dL in the morning before eating; one reading of 98 mg/dL noted. Review of Systems Cardiovascular: (+) palpitations Respiratory: (+) dyspnea Skin: (+) neck skin lesion ACTIVE PROBLEM LIST Coronary Atherosclerosis Pure Hypercholesterolemia Gastroesophageal Reflux Disease Without Esophagitis Essential Hypertension Irritable Bowel Syndrome Asthma, Moderate Persistent, Well-Controlled (Hcc) Interstitial Lung Disease (Hcc) Status Post Mitral Valve Replacement Status Post Implantation of Automatic Cardioverter/Defibrillator (Aicd) Ventricular Tachycardia (Hcc) Permanent Atrial Fibrillation (Hcc) Controlled Type 2 Diabetes Mellitus With Stage 3 Chronic Kidney Disease, Without Long-Term Current Use of Insulin (Hcc) Aortic Valve Stenosis Chronic Systolic Heart Failure (Hcc) 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 acetaminophen (TYLENOL) 325 mg tablet Take 650 mg by mouth every 4 hours as needed. drfkcgfhz-hredtq-emtvquoe-scop () 16.2-0.1037 -0.0194 mg per tablet Take 1 tablet by mouth every 6 hours as needed. albuterol HFA (VENTOLIN HFA) 90 mcg/actuation inhaler USE 2 INHALATIONS 4 TIMES A DAY IF NEEDED nitroglycerin sublingual (NITROSTAT) 0.4 mg SL tablet Dissolve 1 tablet under the tongue as needed. DISSOLVE ON TONGUE FOR CHEST PAIN. IF NO PAIN RELIEF, CALL 911 atorvastatin (LIPITOR) 40 mg tablet Take 1 tablet by mouth once daily. montelukast (SINGULAIR) 10 mg tablet Take 1 tablet by mouth daily at bedtime. For asthma and allergies. fluticasone-salmeterol (ADVAIR DISKUS) 100-50 mcg/dose inhaler Inhale 1 Puff as instructed two times a day. Rinse mouth out after use with water. pantoprazole DR (PROTONIX) 20 mg tablet Take 1 tablet by mouth daily before breakfast. Take on empty stomach, 1/2 hr before meal. warfarin (COUMADIN) 5 mg tablet 5 mg every Thu AND Fr ; 2.5 mg all other days ENTRESTO 24-26 mg tablet Take 1 tablet by mouth twice daily. LOW-DOSE ASPIRIN ORAL Take 1 tablet by mouth once daily. blood sugar diagnostic (BLOOD GLUCOSE TEST) test strip Test blood sugar(s) one times daily. Dx: Type 2 DM - Controlled E11.9 Insulin: No Blood-Glucose Meter monitoring kit Glucose Meter of Choice - Kit - Dx: Type 2 DM - Controlled E11.9 bumetanide (BUMEX) 1 mg tablet Take 1 tablet by mouth once daily as needed (weight gain 3 pounds). Or as directed for weight gain, fluid retention. No current facility-administered medications for this visit. Objective BP 110/62 Pulse 68 Wt 80.9 kg (178 lb 5.6 oz) SpO2 98% BMI 27.44 kg/m? Physical Exam Constitutional: General: He is not in acute distress. HENT: Ears: Comments: Small scar left pre auricular skin, needing further excision. Eyes: Conjunctiva/sclera: Conjunctivae normal. Cardiovascular: (more content not included)...[facility]06-03[facility] History of Present illness Narrative* George Mata MD - 01/10/2025 11:56 AM EDT This note was created using NoteWriter. Subjective Patient presents with: [facility] F[facility]U Bessy Valverde is a 79 year old male here with . Recording using Agavideo software for draft documentation of the visit was discussed with the patient/authorized industrial sales representative; all questions welcomed and answered. Patient/authorized industrial sales representative agreed to proceed Paroxysmal Atrial Fibrillation: - Recent hospitalization from 12/31 to 01/04 for paroxysmal atrial fibrillation with failure of sotalol. - Reports previous episodes of tachycardia and palpitations, with a heart rate of 124 bpm promptingER visit. - Symptoms have mostly resolved; occasional palpitations noted. - Pacemaker in place; follow-up appointment scheduled for battery evaluation. - Sotalol discontinued; currently on metoprolol. 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 CHF with Reduced EF: - Reports dyspnea consistent with baseline asthma symptoms. - Spironolactone discontinued during hospitalization. - Continues to take Entresto. - Bumetanide use adjusted to PRN based on weight gain of 3 lbs over 3 days. CAD: - History of valve replacement in 2012 and 2017. Acute Kidney Injury: - Recent hospitalization included diagnosis of acute kidney injury. Skin Cancer: - Scheduled for excision of a cancerous lesion on the left face this . - Biopsy confirmed malignancy; specific type not mentioned. - Bessy has a history of chewing snuff; advised to abstain post-surgery for better healing. Diabetes Mellitus: - Blood glucose levels range from 105 to 118 mg/dL in the morning before eating; one reading of 98 mg/dL noted. Review of Systems Cardiovascular: (+) palpitations Respiratory: (+) dyspnea Skin: (+) neck skin lesion ACTIVE PROBLEM LIST Coronary Atherosclerosis Pure Hypercholesterolemia Gastroesophageal Reflux Disease Without Esophagitis Essential Hypertension Irritable Bowel Syndrome Asthma, Moderate Persistent, Well-Controlled (Hcc) Interstitial Lung Disease (Hcc) Status Post Mitral Valve Replacement Status Post Implantation of Automatic Cardioverter/Defibrillator (Aicd) Ventricular Tachycardia (Hcc) Permanent Atrial Fibrillation (Hcc) Controlled Type 2 Diabetes Mellitus With Stage 3 Chronic Kidney Disease, Without Long-Term Current Use of Insulin (Hcc) Aortic Valve Stenosis Chronic Systolic Heart Failure (Hcc) 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 acetaminophen (TYLENOL) 325 mg tablet Take 650 mg by mouth every 4 hours as needed. wlumojkzh-wuulxa-olewrxes-scop () 16.2-0.1037 -0.0194 mg per tablet Take 1 tablet by mouth every 6 hours as needed. albuterol HFA (VENTOLIN HFA) 90 mcg/actuation inhaler USE 2 INHALATIONS 4 TIMES A DAY IF NEEDED nitroglycerin sublingual (NITROSTAT) 0.4 mg SL tablet Dissolve 1 tablet under the tongue as needed.DISSOLVE ON TONGUE FOR CHEST PAIN. IF NO PAIN RELIEF, CALL 911 atorvastatin (LIPITOR) 40 mg tablet Take 1 tablet by mouth once daily. montelukast (SINGULAIR) 10 mg tablet Take 1 tablet by mouth daily at bedtime. For asthma and allergies. fluticasone-salmeterol (ADVAIR DISKUS) 100-50 mcg/dose inhaler Inhale 1 Puff as instructed two times a day. Rinse mouth out after use with water. pantoprazole DR (PROTONIX) 20 mg tablet Take 1 tablet by mouth daily before breakfast. Take on empty stomach, 1/2 hr before meal. warfarin (COUMADIN) 5 mg tablet 5 mg every Mon & Fr ; 2.5 mg all other days ENTRESTO 24-26 mg tablet Take 1 tablet by mouth twice daily. LOW-DOSE ASPIRIN ORAL Take 1 tablet by mouth once daily. blood sugar diagnostic (BLOOD GLUCOSE TEST) test strip Test blood sugar(s) one times daily. Dx: Type 2 DM - Controlled E11.9 Insulin: No Blood-Glucose Meter monitoring kit Glucose Meter of Choice - Kit - Dx: Type 2 DM - Controlled E11.9 bumetanide (BUMEX) 1 mg tablet Take 1 tablet by mouth once daily as needed (weight gain 3 pounds). Or as directed for weight gain, fluid retention. No current facility-administered medications for this visit. Objective BP 110/62 Pulse 68 Wt 80.9 kg (178 lb 5.6 oz) SpO2 98% BMI 27.44 kg/m Physical Exam Constitutional: General: He is not in acute distress. HENT: Ears: Comments: Small scar left pre auricular skin, needing further excision. Eyes: Conjunctiva/sclera: Conjunctivae normal. Cardiovascular: Rate and Rhythm: Normal rate. Rhythm irregular. Heart sounds: S1 normal and S2 normal. No murmur heard. Pulmonary: Effort: No respiratory distress. Breath sounds: Examination of the right-middle field reveals rales. Examination of the left-middle field reveals rales. Examination of the right-lower field reveals rales. Examination of the left-lower field reveals rales. Rales present. No decreased breath sounds or wheezing. Abdominal: Tenderness: There is no abdominal tenderness. Musculoskeletal: Right lower leg: No edema. Left lower leg: No edema. Neurological: Mental Status: He is alert. Gait: Gait normal. Assessment and Plan 1. Permanent atrial fibrillation (HCC) - ICD9: 427.31, ICD10: I48.21 (primary diagnosis) S/p RVR. Medication list updated. - METOPROLOL SUCCINATE ER 25 MG TABLET,EXTENDED RELEASE 24 HR 2. Chronic systolic heart failure (HCC) - ICD9: 428.22, ICD10: I50.22 - HFrEF <=40 - Continue current medications - BUMETANIDE 1 MG TABLET 3. Interstitial lung disease (HCC) - ICD9: 515, ICD10: J84.9 - Stable. - Continue medications. 4. Controlled type 2 diabetes mellitus with stage 3 chronic kidney disease, without long-term current use of insulin (HCC) - ICD9: 250.40, 585.3, ICD10: E11.22, N18.30 - Controlled - Continue current medications - eGFR: 42 Worsening - Counseled on avoiding NSAIDs, adequate hydration 5. Essential hypertension - ICD9: 401.9, ICD10: I10 - Controlled - Continue current medications He had multiple appointments coming up. We agreed to cancel his regular appointment this month and see him in 6 months for his annual. See printed instructions or information. George Mata MD documented in this encounterG[facility] Telephone encounter Note * Telephone Encounter - Sandi Denton RN - 01/05/2025 3:10 PM EDT Images from the original note were not included. TRANSITION CARE MANAGEMENT (TCM) INITIAL CONTACT 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 Patient has tohave skin cancer removed from his face in a couple of weeks. Patient was admitted to [place] on Thursday12/31/2024 Initial contact with patient post discharge, spoke to spouse. Patient identified by name and . TRANSITION CARE MANAGEMENT INITIAL OUTREACH DOCUMENTATION: No data to display SUMMARY: -Pt discharged from [facility] on 01/04/2025. -Admitted for: Atrial Fibrillation Do you have a hospital follow up appointment with your PCP? Appointment on 01/09/2025 10:[address] Mata. Yes. Remind patient of appointment date, time, and location. If not within 14 calendar days of discharge - please reschedule accordingly. MEDICATIONS: Many patients have questions or concerns about their medications once they are home. Were you prescribed any new medications? If yes, what are those medications? Entresto restarted Metoprolol Were you told to hold any medications? No Were any of your medications discontinued? If yes, what are those medications? Sotalol Spironolactone due to low BP Do you have any questions about getting or taking your medications? No Your discharge instructions/After visit Summary (AVS) are important in guiding you through the recovery process. Is there anything I might help you understand? No Do you have all the necessary equipment and supplies at home? Yes Medical records from recent hospitalization: Discharge Summary is scanning into documents [facility] Miscellaneous Notes* Telephone Encounter - Sandi Denton RN - 01/05/2025 3:10 PM EDT Images from the original note were not included. TRANSITION CARE MANAGEMENT (TCM) INITIAL CONTACT 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 Patient has tohave skin cancer removed from his face in a couple of weeks. Patient was admitted to [place] on Thursday12/31/2024 Initial contact with patient post discharge, spoke to spouse. Patient identified by name and . TRANSITION CARE MANAGEMENT INITIAL OUTREACH DOCUMENTATION: No data to display SUMMARY: -Pt discharged from [facility] on 01/04/2025. -Admitted for: Atrial Fibrillation Do you have a hospital follow up appointment with your PCP? Appointment on 01/09/2025 10:[address] Mata. Yes. Remind patient of appointment date, time, and location. If not within 14 calendar days of discharge - please reschedule accordingly. MEDICATIONS: Many patients have questions or concerns about their medications once they are home. Were you prescribed any new medications? If yes, what are those medications? Entresto restarted Metoprolol Were you told to hold any medications? No Were any of your medications discontinued? If yes, what are those medications? Sotalol Spironolactone due to low BP Do you have any questions about getting or taking your medications? No Your discharge instructions/After visit Summary (AVS) are important in guiding you through the recovery process. Is there anything I might help you understand? No Do you have all the necessary equipment and supplies at home? Yes Medical records from recent hospitalization: Discharge Summary is scanning into documents documented in this encounterG[facility]05-[facility] Pastoral care Progress note Pastoral Care Note Entered On: 01/04/2025 14:44 EDT Performed On: 01/03/2025 13:05 EDT by Kang Ruffin Pastoral Care Type of Pastoral Visit : Initial visit Spiritual Care Visit Initiated by : Consult/Referral Spiritual Care Reason for Visit : General Pastoral Care Referral From : Patient, Nurse, Family Spiritual Assessment : Faithful, Coping well with illness, Grateful/Thankful, Spiritually Strong Spiritual Care Emotional Assessment : Accepting of Situation, Thoughtful/Reflective Spiritual Care Intervention : Active listening, Words of Encouragement, Facilitate Life Review, Supportive presence, Prayer with Patient/Family, Conversation, Care to Family Spiritual Outcomes : Spiritual Resources Stirred, Expresses Monica Spiritual Plan of Care : Visit as Requested Pastoral Care Comments : Supported the patient and his with active listening, monica and life review as well as prayer. They have a strong Javon monica and trust in God. She talked about her nephew who is senior living and was baptized. We explored their monica and what we would do if it wasn't for God. They appreciated the visit and prayer. Number Present During Pastoral Visit : 1 Pastoral Care Visit Length : 15 minute(s) Kang Ruffin - 01/04/2025 14:44 EDT Digitally Signed by Kang Ruffin on 01/04/2025 02:41 PM Digitally Signed by Kang Ruffin on 01/04/2025 02:44 PM [id number] Note Discharge Instructions Thank you for allowing [facility] to assist you with your healthcare needs. The following is importantdischarge information regarding your hospital visit. Your Care Team GEORGE MATA MD Your Diagnosis Ventricular tachycardia What to do next Scheduled Follow-Up Appointments Appointment Type When With Where Contact Information StatusCV OV 06/06/2025 02:00 PM EDT JAVIER GANT [facility] Confirmed Follow Up Appointments Follow Up with VERONIQUE TOUSSAINT MD When:In 2 weeks Where:[address] [facility] [address] [address] [phone] Follow Up with BRIONNA GANT MD When:In 2 weeks Where:[address] [facility] [address] [place] [address]- [phone] Follow Up with Post 1XRN Discharge Visit FollowUp scheduled for 01-06-25 b/t 8a-12p Follow Up with GEORGE MATA MD When:Within 1-2 days Where:[address] [place] [address]- [phone] Additional Information: Please call the office to schedule a hospital follow up appointment. Follow Up with [facility] When:03/21/2025 02:30 PM EDT Where:[address] [place] [address]- [phone] Follow Up with BRIONNA GANT MD When:06/06/2025 02:00 PM EDT Where:[address] [facility] [address] [address]- [phone] The Following Activity and Diet Have Been Ordered for You Discharge Activity - Ordered -- Activity As Tolerated, 01/04/25 13:01:00 EDT Discharge Diet - Ordered -- Type of Diet: Cardiac, 01/04/25 13:01:00 EDT The Following Equipment Has Been Ordered for You No qualifying data available. The Following Treatments Have Been Ordered for You Discharge Labs Discharge Outpatient Labwork - Ordered -- INR, BMP, GARY, follow-up within: 5-7 days, Results Notify to: BRIONNA GANT MD, 01/04/25 13:01:00 EDT Discharge Radiology No qualifying data available. Other Therapies No qualifying data available. Post Acute Orders No qualifying data available. Someone Will Contact You Regarding These Home Health Referrals No home referrals have been ordered for you. No one will call you. Allergies NKA Medications Please ask your primary doctor or pharmacist before taking any other medication not listed, including over the counter drugs, herbal medications, vitamins and or supplements as they may interact withyour home medications. What How Much When Instructions Last Dose New metoprolol (metoprolol succinate 25 mg oral TABLET extended release) 1 tab(s) by mouth Once a day with a meal Refills: 11 Pickup at [facility] Changed bumetanide (bumetanide 1 mg oral tablet) 1 tab(s) by mouth Once a day as needed for weight gain >3lb in 3 days Duration: 90 Days Pickup at [facility] Unchanged acetaminophen (Tylenol 325 mg oral tablet) 2 tab(s) by mouth Every 4 hours as needed for as needed for pain Unchanged albuterol (Ventolin HFA MDI (90 mcg/ inh) inhalation aerosol) 2 puff(s) by inhalation Four (4) times a day as needed for as needed for wheezing Unchanged aspirin (aspirin 81 mg oral delayed release tablet) 1 tab(s) by mouth Every day Unchanged atorvastatin (Lipitor 40 mg oral tablet) 1 tab(s) by mouth Daily at bedtime Unchanged atropine/ hyoscyamine/ PB/ scopolamine ( oral tablet) 1 tab(s) by mouth Every 6 hours as needed for as needed for indigestion Unchanged fluticasone-salmeterol (Wixela Inhub 100 mcg-50 mcg inhalation powder) 1 puff(s) by inhalation Two (2) times a day Unchanged montelukast (montelukast 10 mg oral tablet) 1 tab(s) by mouth Once a day Unchanged nitroGLYcerin (Nitrostat 0.4 mg sublingual tablet) 1 tab(s) under the tongue Every 5 minutes as needed for as needed for chest pain Unchanged pantoprazole (pantoprazole 20 mg oral enteric coated tablet) 1 tab(s) by mouth Once a day Unchanged sacubitril-valsartan (Entresto 24 mg-26 mg oral tablet) 0.5 tab(s) by mouth Two (2) times a day Unchanged warfarin (warfarin 5 mg oral tablet) 0.5 tab(s) by mouth Every Thu / / Thu / / Thu Unchanged warfarin (warfarin 5 mg oral tablet) 1 tab(s) by mouth Every Thursday and Thursday Pharmacy Information [facility]: [id number] [place] [address] [phone] What How Much When Why Comments Stop Taking sotalol (sotalol 80 mg oral tablet) 2 tab(s) by mouth Two (2) times a day Ventricular tachycardia Stop Taking spironolactone (spironolactone 25 mg oral tablet) 1 tab(s) by mouth Once a day Please take this list to your next doctor s visit. Bring all medications you take, including over the counter medications, herbals and other supplements with you to your doctor s visit. Patients and families are reminded to discard old lists and to update any records with all medication providers or retail pharmacies. Education Materials Atrial Fibrillation Atrial fibrillation is a type of irregular or rapid heartbeat (arrhythmia). In atrial fibrillation,the top part of the heart (atria) quivers in a chaotic pattern. This makes the heart unable to pumpblood normally. Having atrial fibrillation can increase your risk for other health problems, such as: Blood can pool in the atria and form clots. If a clot travels to the brain, it can cause a stroke. The heart muscle may weaken from the irregular blood flow. This can cause heart failure. Atrial fibrillation may start suddenly and stop on its own, or it may become a long-lasting problem. What are the causes? This condition is caused by some heart-related conditions or procedures, including: High blood pressure. This is the most common cause. Heart failure. Heart valve conditions. Inflammation of the sac that surrounds the heart (pericarditis). Heart surgery. Coronary artery disease. Certain heart rhythm disorders, such as Singh Parkinson White syndrome. Other causes include: Pneumonia. Obstructive sleep apnea. Lung cancer. Thyroid problems, especially if the thyroid is overactive (hyperthyroidism). Excessive alcohol or drug use. Sometimes, the cause of this condition is not known. What increases the risk? This condition is more likely to develop in: Older people. People who smoke. People who have diabetes mellitus. People who are overweight (obese). Athletes who exercise vigorously. People who have a family history. What are the signs or symptoms? Symptoms of this condition include: A feeling that your heart is beating rapidly or irregularly. A feeling of discomfort or pain in your chest. Shortness of breath. Sudden light-headedness or weakness. Getting tired easily during exercise. In some cases, there are no symptoms. How is this diagnosed? Your health care provider may be able to detect atrial fibrillation when taking your pulse. If detected, this condition may be diagnosed with: Electrocardiogram (ECG). Ambulatory cardiac cath tech. This device records your heartbeats for 24 hours or more. Transthoracic echocardiogram (TTE) to evaluate how blood flows through your heart. Transesophageal echocardiogram (GERARDO) to view more detailed images of your heart. A stress test. Imaging tests, such as a CT scan or chest X-ray. Blood tests. How is this treated? This condition may be treated with: Medicines to slow down the heart rate or bring the heart's rhythm back to normal. Medicines to prevent blood clots from forming. Electrical cardioversion. This delivers a low-energy shock to the heart to reset its rhythm. Ablation. This procedure destroys the part of the heart tissue that sends abnormal signals. Left atrial appendage occlusion/excision. This seals off a common place in the atria where blood clots can form (left atrial appendage). The goal of treatment is to prevent blood clots from forming and to keep your heart beating at a normal rate and rhythm. Treatment depends on underlying medical conditions and how you feel when you are experiencing fibrillation. Follow these instructions at home: Medicines Take over-the counter and prescription medicines only as told by your health care provider. If your health care provider prescribed a blood-thinning medicine (anticoagulant), take it exactly as told. Taking too much blood-thinning medicine can cause bleeding. Taking too little can enable a blood clot to form and travel to the brain, causing a stroke. Lifestyle Do not use any products that contain nicotine or tobacco, such as cigarettes and e-cigarettes. If you need help quitting, ask your health care provider. Do not drink beverages that contain caffeine, such as coffee, soda, and tea. Follow diet instructions as told by your health care provider. Exercise regularly as told by your health care provider. Do not drink alcohol. General instructions If you have obstructive sleep apnea, manage your condition as told by your health care provider. Maintain a healthy weight. Do not use diet pills unless your health care provider approves. Diet pills may make heart problems worse. Keep all follow-up visits as told by your health care provider. This is important. Contact a health care provider if you: Notice a change in the rate, rhythm, or strength of your heartbeat. Are taking an anticoagulant and you notice increased bruising. Tire more easily when you exercise or exert yourself. Have a sudden change in weight. Get help right away if you have: Chest pain, abdominal pain, sweating, or weakness. Difficulty breathing. Blood in your vomit, stool (feces), or urine. Any symptoms of a stroke. BE FAST is an easy way to remember the main warning signs of a stroke: ? B - Balance. Signs are dizziness, sudden trouble walking, or loss of balance. ? E - Eyes. Signs are trouble seeing or a sudden change in vision. ? F - Face. Signs are sudden weakness or numbness of the face, or the face or eyelid drooping on one side. ? A - Arms. Signs are weakness or numbness in an arm. This happens suddenly and usually on one side of the body. ? S - Speech. Signs are sudden trouble speaking, slurred speech, or trouble understanding what peoplesay. ? T - Time. Time to call emergency services. Write down what time symptoms started. Other signs of a stroke, such as: ? A sudden, severe headache with no known cause. ? Nausea or vomiting. ? Seizure. These symptoms may represent a serious problem that is an emergency. Do not wait to see if the symptoms will go away. Get medical help right away. Call your local emergency services (911 in the [place] Do not drive yourself to the hospital. Summary Atrial fibrillation is a type of irregular or rapid heartbeat (arrhythmia). Symptoms include a feeling that your heart is beating fast or irregularly. In some cases, you may not have symptoms. The condition is treated with medicines to slow down the heart rate or bring the heart's rhythm back to normal. You may also need blood-thinning medicines to prevent blood clots. Get help right away if you have symptoms or signs of a stroke. This information is not intended to replace advice given to you by your health care provider. Make sure you discuss any questions you have with your health care provider. Document Released: 07/27/2006 Document Revised: 09/16/2018 Document Reviewed: 09/17/2018 [employer] Patient Education 2020 [employer] Additional Information VACCINATE! IT SAVES LIVES! Members of the community who have not yet received the COVID-19 vaccine and would like to receive it can visit one of [facility] vaccine clinics. There are many vaccine clinic locations within the [facility]. For locations and available times, please visit [email or web address].[place].gov/. It is important to note that some COVID mobile vaccine clinics are held outdoors and may be canceled in rainy or stormy conditions. To learn more about pediatric vaccinations (ages 5-11), we invite you to visit the [facility] webpage. [email or web address]/[email or web address] learn more about the COVID-19 vaccine, we invite you to visit the CDC website for a list of frequently asked questions.https://www.cdc.gov/coronavirus/2019-ncov/vaccines/faq.html [facility] Patient Portal Access Instructions: Stay connected with your healthcare team and access your personal medical information anytime with the [facility] Patient Portal. Please follow the directions below to create your [employer] account: 1.Access the email account you provided upon registration to the hospital/physician office.2.Look for an invitation email from [facility].3.Open the email and access the invitation link: AcceptInvitation to [facility].4.Fill in the required mitchell to create your account. To access your account, visit [facility]. Click the blue button labeled Access Patient Portal and then log in with the username and password that you created in the steps above. You will be able to view your test results, lab results, a summary of your visits, upcoming appointments and more. There is also a convenient messaging option where you can send secure messages to your p rovider. In addition, you will have the ability to download any documents or summaries to your computer and/or send the information securely to a physician. Remember that your healthcare information is confidential, so carefully consider who you will allowto register on the [place] [facility] Patient Portal for access to your information. You can also access the [place] [facility] Patient Portal on the [place] [facility] charanjit. Simply click on Patient Portal and then log into your account. If you would like to receive a full copy of your medical records, please contact the [facility] Medical Records Department by calling [phone], Thursday through Thursday between 8 a.m. and 4:30 p.m. HOW TO SAFELY DISPOSE OF PRESCRIPTION MEDICATIONS Please use one of the following methods to safely dispose of your unused medications. 1.Use a drug disposal kit: the drug disposal pouch allows you to safely discard your old and unuseddrugs. Ask your nurse to give you one when you are discharged.2.Visit a local take-back location: Many local pharmacies and police departments have programs that collect old and unwanted prescriptiondrugs. Call your local pharmacy or go to http://[employer]vices.[employer]/7Z5Gl9b to find one close to you.3.Make use of household items: Use cat litter or old coffee grounds to dispose medications if other options arenot available. Mix your drugs with these household products, seal them in an airtight container andthrow it into the garbage. Call [facility]: [phone] to be sure your drugs can be disposed of in this way. Some medicines may require a different approach.4.Never flush your medications down the toilet. IF YOU HAVE BEEN PRESCRIBED AN OPIOID FOR PAIN If you have been prescribed an opioid (such as hydrocodone, oxycodone or morphine), it is critical to understand the possible side effects and risks of opioid pain medications. Even when taken as directed, opioids can have several side effects including: Tolerance, meaning you might need to take more of a medication for the same pain relief. Nausea, vomiting and/or constipation. Sleepiness, dizziness, dry mouth, confusion, depression or itching. Physical dependence, meaning you have withdrawal symptoms when a medication is stopped, can develop within a few days. KNOW YOUR RESPONSIBILITIES It is important to know exactly how much and how often to take the opioid pain medications you are prescribed. Never take opioids in higher amounts or more often than prescribed. Do not combine opioids with alcohol or other drugs that cause drowsiness, such as benzodiazepines, also known as benzos, including diazepam and alprazolam, muscle relaxants or sleep aids. Never sell or share prescription opioids. This is illegal. Store opioids in a secure place and out of reach of others (including children, family, friends and visitors). The last page of this document has been signed and retained as a CHART COPY. Signatures Patient Education Materials Atrial Fibrillation Medication Leaflets My discharge plan and instructions have been reviewed and explained to me and I,BESSY VALVERDE understand my current condition and have read and understand these discharge instructions. I have received a written copy of the plan/instructions. If I have questions, I am aware that I should contact my d octor. 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 Signature: Date/Time: Relationship to Patient: Witness Name/Signature: Date/Time: [id number] Discharge summary Date of Service 01/04/2025 Discharge Diagnosis Paroxysmal atrial fibrillation on warfarin (sotalol failure) GARY CAD s/p CABG and last PCI to RCA in 2018 Status post mitral valve repair and TRINITY HFrEF (EF 30%) s/p STOCK CHECKERER-D no acute exacerbation Hospital Course 79-year-old male with a past medical history of CAD s/p CABG and PCI to the RCA in 2018, hypertension, hyperlipidemia, severe aortic stenosis s/p TAVR, mitral regurgitation s/p mitral valve repair, atrial fibrillation on sotalol and warfarin, and heart failure with reduced ejection fraction (LVEF 30%) s/p STOCK CHECKERER-D, presented to the emergency department for evaluation of tachycardia. The patient states that he was noticing fast heart rates and palpitations at home this morning when he woke up. He also reports associated shortness of breath and fatigue. The patient and his reached out to the on-call vat house supervisor who instructed them to present to the emergency department for evaluation of the tachycardia. In the emergency department, the patient was hemodynamically stable and was noted to be tachycardic at 104 bpm. Initial labs showed normal renal function and electrolytes. INR 1.6. High-sensitivity troponin elevated at 63, however flat at 69-65. NT proBNP slightly elevated at 1793. The patient was admitted to the cardiology service for further evaluation and management. Found to be in A-fib with RVR. Initially consider switching to amiodarone. Patient has plan for surgery and antiarrhythmic needs to be held. EP team recommend due to the rate control approach. Metoprolol was started and sotalol was stopped. The patient remains in sinus rhythm. Patient has mild GARY on presentation. Will decrease diuretics to Bumex 1 mg as needed. To recheck BMP in 1 week. Allergies NKA Consults Consult to Physician (Physician Consult) - Ordered -- 01/03/25 9:50:00 EDT, ARIELLE GUILLORY MD, Routine, A fib with RVR, failed sotalol Consult to Spiritual Care Team (Consult to Pastoral Care) - Ordered -- 12/31/24 18:38:24 EDT Objective Vitals and Measurements T: 36.8 C (Oral) TMIN: 36.5 C (Oral) TMAX: 36.9 C (Oral) HR: 70 (Monitored) RR: 18 BP: 108/74 SpO2:93% Weight Current Weight Dosing Weight: 78.7 kg (12/31/24) Current Weight: 78.4 kg (01/03/25) Dosing Weight: 79.3 kg (12/31/24) Code Status Code Status - Ordered -- 12/31/24 16:42:00 EDT, Full Code, Constant Order Admission Date 12/31/2024 Discharge Date 01/04/2025 Medications New Prescription metoprolol (metoprolol succinate 25 mg oral TABLET extended release)1 tab(s) by mouth once a day with a meal. Refills: 11. Changed bumetanide (bumetanide 1 mg oral tablet)1 tab(s) by mouth once a day as needed weight gain >3lb in 3 days for 90 Days. Refills: 3. Unchanged acetaminophen (Tylenol 325 mg oral tablet)2 tab(s) by mouth every 4 hours as needed as needed for pain. albuterol (Ventolin HFA MDI (90 mcg/inh) inhalation aerosol)2 puff(s) by inhalation four (4) times a day as needed as needed for wheezing. aspirin (aspirin 81 mg oral delayed release tablet)1 tab(s) by mouth every day. atorvastatin (Lipitor 40 mg oral tablet)1 tab(s) by mouth daily at bedtime. atropine/hyoscyamine/PB/scopolamine ( oral tablet)1 tab(s) by mouth every 6 hours as neededas needed for indigestion. fluticasone-salmeterol (Wixela Inhub 100 mcg-50 mcg inhalation powder)1 puff(s) by inhalation two (2) times a day. montelukast (montelukast 10 mg oral tablet)1 tab(s) by mouth once a day. nitroGLYcerin (Nitrostat 0.4 mg sublingual tablet)1 tab(s) under the tongue every 5 minutes as needed as needed for chest pain. pantoprazole (pantoprazole 20 mg oral enteric coated tablet)1 tab(s) by mouth once a day. sacubitril-valsartan (Entresto 24 mg-26 mg oral tablet)0.5 tab(s) by mouth two (2) times a day. Refills: 3. warfarin (warfarin 5 mg oral tablet)0.5 tab(s) by mouth every Thu / / Thu / / Thu. warfarin (warfarin 5 mg oral tablet)1 tab(s) by mouth every Thursday and Thursday. Discontinued sotalol (sotalol 80 mg oral tablet)2 tab(s) by mouth two (2) times a day. Refills: 3. spironolactone (spironolactone 25 mg oral tablet)1 tab(s) by mouth once a day. Refills: 1. Follow Up Follow Up with VERONIQUE TOUSSAINT MD When:In 2 weeks Where:[address] [facility] [address] [facility] [place] [address]- [phone] Follow Up with BRIONNA GANT MD When:In 2 weeks Where:[address] [facility] [address] [place] [address]- [phone] Follow Up with Post 1XRN Discharge Visit FollowUp scheduled for 01-06-25 b/t 8a-12p Follow Up with GEORGE MATA MD When:Within 1-2 days Where:[address] [place] [address]- [phone] Additional Information: Please call the office to schedule a hospital follow up appointment. Follow Up with [facility] When:03/21/2025 02:30 PM EDT Where:[address] [facility] [address] [place], [place] [address]- [phone] Follow Up with BRIONNA GANT MD When:06/06/2025 02:00 PM EDT Where:[address] [facility] [address] [place] [address]- [phone] Follow Up Appointments No qualifying data available. Follow Up Labs/Studies Discharge Labs Discharge Outpatient Labwork - Ordered -- INR, BMP, GARY, follow-up within: 5-7 days, Results Notify to: BRIONNA GANT MD, 01/04/25 13:01:00 EDT Discharge Studies No Follow-up Studies Discharge Diet Discharge Diet - Ordered -- Type of Diet: Cardiac, 01/04/25 13:01:00 EDT Discharge Activity Discharge Activity - Ordered -- Activity As Tolerated, 01/04/25 13:01:00 EDT Readmission Risk/Palliative Score LACE Score: 11 (01/02/25 14:22:00) Palliative Total Score: 1 (01/02/25 14:23:00) Digitally Signed by GATITO ROSE MD on 01/04/2025 01:37 PM Digitally Signed by AILYN SHARP MD [facility] [id number] Note Date of Service 01/04/2025 Chief Complaint Palpitations/shortness of breath RFC Atrial fibrillation management HPI 79-year-old male with past medical history of hypertension, hyperlipidemia, CAD status post CABG status post PCI with TOOTIE to RCA in 2018, severe aortic stenosis status post TAVR, severe mitral regurgitation status post mitral valve repair, paroxysmal atrial fibrillation on sotalol and warfarin, heart failure with reduced ejection fraction, ischemic cardiopathy status post STOCK CHECKERER-D in 2016, and obesity presents emergency department on 12/31/2024 with complaints of palpitations and shortness of breath. Patient was admitted to the cardiology service for acute on chronic heart failure with reduced ejection fraction exacerbation and atrial fibrillation management. Electrophysiology consulted for atrial fibrillation management. Subjective No acute events overnight No new complaints Objective Vitals and Measurements T: 36.8 C (Oral) TMIN: 36.5 C (Oral) TMAX: 36.9 C (Oral) HR: 70 (Monitored) RR: 18 BP: 111/73 SpO2:95% Intake and Output 7AM Yesterday to 7AM Today Intake and Output (Last 24 hours) Intake Administration Information 146.67 Oral Intake 662.00 Output Urine Voided 250.00 Urine Count 4.00 Total Summary Total Intake 808.67 Total Output 250.00 Fluid Balance 558.67 Physical Exam General: AAOX3, NAD HEENT: Anicteric sclera, MMM Neck: Trachea midline, no JVD appreciated CVS: RRR, normal S1/S2, CABG Scar, left-sided STOCK CHECKERER-D scar Lung: CTAB, no wheezes/rhonchi/rales Abd: Soft, NT/ND Extrem: WWP, no LE edema Skin: Warm, Intact Neuro: AAOX3, spontaneous movement of all extremities Psych: Appropriate mood & affect Weight Current Weight Dosing Weight: 78.7 kg (12/31/24) Current Weight: 78.4 kg (01/03/25) Dosing Weight: 79.3 kg (12/31/24) Medications Medications (21) Active Scheduled: (10) albuterol 0.083% Soln UD (2.5mg/3 mL) 2.5 mg 3 mL, Inhalation, QIDRT aspirin 81 mg EC 81 mg 1 tab(s), Oral, Daily atorvastatin 40 mg tablet 40 mg 1 tab(s), Oral, qHS budesonide 0.25 mg/2 mL Susp UD 0.25 mg 2 mL, Inhalation, BIDRT metoprolol succinate 25 mg ER tablet 25 mg 1 tab(s), Oral, qDayM montelukast 10 mg Tablet 10 mg 1 tab(s), Oral, qDay pantoprazole 20 mg EC tablet 20 mg 1 tab(s), Oral, qDay sacubitril-valsartan 24-26 mg oral tablet 0.5 tab(s), Oral, BID warfarin 2.5 mg tablet 2.5 mg 1 tab(s), Oral, Sun//Thu//Sat warfarin 5 mg tablet 5 mg 1 tab(s), Oral, Thursday & Thursday Continuous: (0) PRN: (11) acetaminophen 325 mg Tablet 650 mg 2 tab(s), Oral, q4h albuterol 0.083% Soln UD (2.5mg/3 mL) 2.5 mg 3 mL, Inhalation, QIDRT dextrose 50% Solution Disp syringe 50 mL 25 gram(s) 50 mL, IV Push, AsDirected magnesium sulfate 4 gram(s)/100mL PMX 4 g 100 mL, IV Piggyback, AsDirected magnesium sulfate 50% (500mg/mL) 6 g 12 mL, IV Piggyback, AsDirected magnesium sulfate PMX 2 g 50 mL, IV Piggyback, AsDirected melatonin 3 mg tablet 3 mg 1 tab(s), Oral, qHS potassium chloride (PMX) 20 mEq/100 mL 20 mEq 100 mL, IV Piggyback, AsDirected potassium chloride 20 mEq ER tablet 20 mEq 1 tab(s), Oral, AsDirected potassium chloride 20 mEq ER tablet 40 mEq 2 tab(s), Oral, AsDirected potassium chloride 20 mEq ER tablet 40 mEq 2 tab(s), Oral, AsDirected Lab Results CMP 01/04/25 06:23 01/03/25 13:38 01/03/25 04:36 Glucose Level 104 mg/dL 193 mg/dL H 117 mg/dL H Sodium Level 136 mEq/L 138 mEq/L 138 mEq/L Potassium Level 4.3 mEq/L 4.0 mEq/L 4.1 mEq/L Chloride 101 mEq/L 102 mEq/L 103 mEq/L CO2 26 mEq/L 27 mEq/L 26 mEq/L Electrolyte Balance 9.0 mEq/L 9.0 mEq/L 9.0 mEq/L BUN 37.0 mg/dL H 42.0 mg/dL H 44.0 mg/dL H Creatinine Lvl (s) 1.55 mg/dL H 1.54 mg/dL H 1.66 mg/dL H BUN/Creatinine Ratio 23.9 ratio H 27.3 ratio H 26.5 ratio H Calcium Lvl 9.3 mg/dL 8.7 mg/dL 9.0 mg/dL Estimated Glomerular Filtration Rate 45 ml/min/1.73sqm 45 ml/min/1.73sqm 41 ml/min/1.73sqm CBC 01/04/25 06:23 01/03/25 04:36 01/02/25 05:36 Hct 30.2 % L 31.4 % L 32.0 % L Hgb 10.2 G/dL L 10.7 G/dL L 10.8 G/dL L MCH 28.8 pg 29.0 pg 28.8 pg MCHC 33.8 G/dL 34.0 G/dL 33.8 G/dL MCV 85.2 fL 85.2 fL 85.2 fL MPV 9.4 fL 8.6 fL 8.2 fL Platelet 106 10^3/mcL L 114 10^3/mcL L 121 10^3/mcL L RBC 3.55 10^6/mcL L 3.68 10^6/mcL L 3.76 10^6/mcL L RDW 16.7 % H 16.6 % H 16.9 % H WBC 6.1 10^3/mcL 6.4 10^3/mcL 7.3 10^3/mcL Cardiac Enzymes Cardiac Enzymes High Sensitivity Troponin I: 65 ng/L High (12/31/24 15:10:00) N-Terminal proBNP: 1793 pg/mL (12/31/24 11:28:00) Lipids No qualifying data available. Imaging Results and Diagnostics XR Chest 1 View Result Date: December 31, 2024 Verified By: GENNA SANCHEZ DO CLINICAL STATEMENT: IMPRESSION: []Cardiomegaly. Chronic reticular pulmonary markings slightly increasedcompared to July 25, 2021 exam. Cardiomegaly and mild hilar vascularprominence. EKG No qualifying data available. Assessment/Plan #Atrial fibrillation with underlying AV disassociation which is either complete heart block or contributed to by sotalol #GARY #Acute on chronic HFrEF exacerbation #Hypertension #Hyperlipidemia #CAD status post CABG status post PCI #Severe aortic stenosis status post TAVR #Mitral valve regurgitation status post mitral valve repair #Paroxysmal atrial fibrillation on sotalol and warfarin #Ischemic cardiomyopathy status post STOCK CHECKERER-D in 2016 #Obesity - Oral Surgery Assistant: Dr. Gant - Spearer: Dr. Toussaint - Latest EKG reviewed - Latest imaging reviewed - Latest echocardiogram reviewed - Latest ischemic work-up reviewed Recommendations: - Patient recently went out of rhythm and went back into atrial fibrillation causing heart failure - Patient states he is undergoing surgical removal of a head and neck cancer in the coming weeks - Continue to hold all antiarrhythmics at this time as patient will need to be interrupted with hisanticoagulation for upcoming surgery - Recommend a rate control strategy for now - Once head and neck cancer is dealt with antiarrhythmic therapy can be reconsidered at that time - Patient's device is also at DIANE on bedside interrogation, patient will need outpatient generator change as well. At that time, then DC cardioversion of atrial fibrillation will be performed as partof DFT testing, following uninterrupted therapeutic anticoagulation versus GERARDO-guidance, to restoresinus rhythm as needed. - Electrophysiology will sign off Patient seen and discussed with Dr. Ce Maki II, MD PGY- Cardiovascular Disease Fellow Pager: [phone] I have seen and examined the patient with Dr. Maki, and I have instructed the decision making. I agree with all expressed in this note. Arnulfo Encinas MD Digitally Signed by CATRACHITO MAKI MD on 01/04/2025 09:20 AM Digitally Signed by ARNULFO ENCINAS MD, Dr on 01/04/2025 05:28 PM [id number] Cardiology Progress note Date of Service 01/03/2025 Subjective CVC: Dr. Gant EP: Dr. Toussaint Patient is currently asymptomatic. No more episode of palpitations, lightheadedness and dizziness. Also denied chest pain or discomfort, orthopnea and PND. Objective Vitals and Measurements T: 36.6 C (Oral) TMIN: 36.4 C (Oral) TMAX: 37.4 C (Oral) HR: 70 (Monitored) RR: 16 BP: 97/68 SpO2: 97% WT: 78.4 kg Intake and Output 7AM Yesterday to 7AM Today Intake and Output (Last 24 hours) Intake Oral Intake 815.00 Output Urine Voided 425.00 Stool Count 0.00 Urine Count 3.00 Total Summary Total Intake 815.00 Total Output 425.00 Fluid Balance 390.00 Physical Exam General Appearance: Patient comfortably lying on bed, not in acute distress Head: Normocephalic, atraumatic EENT: PERRLA, Neck: Supple, no JVD, no mass Cardiac: s1s2,RRR, no murmurs or rubs or gallops Lungs: Clear to auscultation bilaterally, no wheeze or rhonchi or crackles Abdomen: Soft , Nontender, no organomegaly, bowel sounds heard Musculoskeletal: Full ROM , no gross deformities Extremities: No rash or ulcers or pedal edema Neurological: Alert, oriented x 3, grossly no focal neurological deficits Skin: No rash or ulcers Weight Current Weight Dosing Weight: 78.7 kg (12/31/24) Current Weight: 78.4 kg (01/03/25) Dosing Weight: 79.3 kg (12/31/24) Medications Medications (22) Active Scheduled: (10) albuterol 0.083% Soln UD (2.5mg/3 mL) 2.5 mg 3 mL, Inhalation, QIDRT aspirin 81 mg EC 81 mg 1 tab(s), Oral, Daily atorvastatin 40 mg tablet 40 mg 1 tab(s), Oral, qHS budesonide 0.25 mg/2 mL Susp UD 0.25 mg 2 mL, Inhalation, BIDRT metoprolol succinate 25 mg ER tablet 25 mg 1 tab(s), Oral, qDayM montelukast 10 mg Tablet 10 mg 1 tab(s), Oral, qDay pantoprazole 20 mg EC tablet 20 mg 1 tab(s), Oral, qDay sacubitril-valsartan 24-26 mg oral tablet 0.5 tab(s), Oral, BID warfarin 2.5 mg tablet 2.5 mg 1 tab(s), Oral, Sun//Thu//Sat warfarin 5 mg tablet 5 mg 1 tab(s), Oral, Thursday & Thursday Continuous: (1) NS (0.9% nacl) 1,000 mL 1,000 mL, Intravenous, 50 mL/hr PRN: (11) acetaminophen 325 mg Tablet 650 mg 2 tab(s), Oral, q4h albuterol 0.083% Soln UD (2.5mg/3 mL) 2.5 mg 3 mL, Inhalation, QIDRT dextrose 50% Solution Disp syringe 50 mL 25 gram(s) 50 mL, IV Push, AsDirected magnesium sulfate 4 gram(s)/100mL PMX 4 g 100 mL, IV Piggyback, AsDirected magnesium sulfate 50% (500mg/mL) 6 g 12 mL, IV Piggyback, AsDirected magnesium sulfate PMX 2 g 50 mL, IV Piggyback, AsDirected melatonin 3 mg tablet 3 mg 1 tab(s), Oral, qHS potassium chloride (PMX) 20 mEq/100 mL 20 mEq 100 mL, IV Piggyback, AsDirected potassium chloride 20 mEq ER tablet 20 mEq 1 tab(s), Oral, AsDirected potassium chloride 20 mEq ER tablet 40 mEq 2 tab(s), Oral, AsDirected potassium chloride 20 mEq ER tablet 40 mEq 2 tab(s), Oral, AsDirected Lab Results 01/03 04:36 WBC: 6.4 Hgb: 10.7 L Hct: 31.4 L Platelet: 114 L Neutrophil %: 70.7 Protime: 20.7 H PT International Ratio: 1.8 Glucose Level: 117 H Sodium Level: 138 Potassium Level: 4.1 BUN: 44.0 H Creatinine Lvl (s): 1.66 H 01/02 05:36 WBC: 7.3 Hgb: 10.8 L Hct: 32.0 L Platelet: 121 L Neutrophil %: 74.1 Protime: 21.2 H PT International Ratio: 1.8 Glucose Level: 104 Sodium Level: 140 Potassium Level: 4.1 BUN: 39.0 H Creatinine Lvl (s): 1.39 EKG No qualifying data available. Assessment/Plan Paroxysmal atrial fibrillation on warfarin (sotalol failure) GARY CAD s/p CABG and last PCI to RCA in 2018 Status post mitral valve repair and TRINITY HFrEF (EF 30%) s/p STOCK CHECKERER-D no acute exacerbation Patient came in for palpitations and tachycardia. Found to be in A-fib with RVR. Initially consider switching to amiodarone. Patient has plan for surgery and antiarrhythmic needs to be held. Will plan for rate control approach until the surgery is completed. EP is on board. He developed mild GARY today. Will hold Aldactone and Bumex. On discharge, will plan for diuretics as needed. Continue Entresto. Repeat the renal function in the afternoon. Possible discharge tomorrow. Will consult PT and OT. Digitally Signed by GATITO ROSE MD on 01/03/2025 01:52 PM [id number] Cardiology Progress note Date of Service 01/03/2025 Subjective CVC: Dr. Gant EP: Dr. Toussaint Patient is currently asymptomatic. No more episode of palpitations, lightheadedness and dizziness. Also denied chest pain or discomfort, orthopnea and PND. Objective Vitals and Measurements T: 36.6 C (Oral) TMIN: 36.4 C (Oral) TMAX: 37.4 C (Oral) HR: 70 (Monitored) RR: 16 BP: 97/68 SpO2: 97% WT: 78.4 kg Intake and Output 7AM Yesterday to 7AM Today Intake and Output (Last 24 hours) Intake Oral Intake 815.00 Output Urine Voided 425.00 Stool Count 0.00 Urine Count 3.00 Total Summary Total Intake 815.00 Total Output 425.00 Fluid Balance 390.00 Physical Exam General Appearance: Patient comfortably lying on bed, not in acute distress Head: Normocephalic, atraumatic EENT: PERRLA, Neck: Supple, no JVD, no mass Cardiac: s1s2,RRR, no murmurs or rubs or gallops Lungs: Clear to auscultation bilaterally, no wheeze or rhonchi or crackles Abdomen: Soft , Nontender, no organomegaly, bowel sounds heard Musculoskeletal: Full ROM , no gross deformities Extremities: No rash or ulcers or pedal edema Neurological: Alert, oriented x 3, grossly no focal neurological deficits Skin: No rash or ulcers Weight Current Weight Dosing Weight: 78.7 kg (12/31/24) Current Weight: 78.4 kg (01/03/25) Dosing Weight: 79.3 kg (12/31/24) Medications Medications (22) Active Scheduled: (10) albuterol 0.083% Soln UD (2.5mg/3 mL) 2.5 mg 3 mL, Inhalation, QIDRT aspirin 81 mg EC 81 mg 1 tab(s), Oral, Daily atorvastatin 40 mg tablet 40 mg 1 tab(s), Oral, qHS budesonide 0.25 mg/2 mL Susp UD 0.25 mg 2 mL, Inhalation, BIDRT metoprolol succinate 25 mg ER tablet 25 mg 1 tab(s), Oral, qDayM montelukast 10 mg Tablet 10 mg 1 tab(s), Oral, qDay pantoprazole 20 mg EC tablet 20 mg 1 tab(s), Oral, qDay sacubitril-valsartan 24-26 mg oral tablet 0.5 tab(s), Oral, BID warfarin 2.5 mg tablet 2.5 mg 1 tab(s), Oral, Sun//Thu//Sat warfarin 5 mg tablet 5 mg 1 tab(s), Oral, Thursday & Thursday Continuous: (1) NS (0.9% nacl) 1,000 mL 1,000 mL, Intravenous, 50 mL/hr PRN: (11) acetaminophen 325 mg Tablet 650 mg 2 tab(s), Oral, q4h albuterol 0.083% Soln UD (2.5mg/3 mL) 2.5 mg 3 mL, Inhalation, QIDRT dextrose 50% Solution Disp syringe 50 mL 25 gram(s) 50 mL, IV Push, AsDirected magnesium sulfate 4 gram(s)/100mL PMX 4 g 100 mL, IV Piggyback, AsDirected magnesium sulfate 50% (500mg/mL) 6 g 12 mL, IV Piggyback, AsDirected magnesium sulfate PMX 2 g 50 mL, IV Piggyback, AsDirected melatonin 3 mg tablet 3 mg 1 tab(s), Oral, qHS potassium chloride (PMX) 20 mEq/100 mL 20 mEq 100 mL, IV Piggyback, AsDirected potassium chloride 20 mEq ER tablet 20 mEq 1 tab(s), Oral, AsDirected potassium chloride 20 mEq ER tablet 40 mEq 2 tab(s), Oral, AsDirected potassium chloride 20 mEq ER tablet 40 mEq 2 tab(s), Oral, AsDirected Lab Results 01/03 04:36 WBC: 6.4 Hgb: 10.7 L Hct: 31.4 L Platelet: 114 L Neutrophil %: 70.7 Protime: 20.7 H PT International Ratio: 1.8 Glucose Level: 117 H Sodium Level: 138 Potassium Level: 4.1 BUN: 44.0 H Creatinine Lvl (s): 1.66 H 01/02 05:36 WBC: 7.3 Hgb: 10.8 L Hct: 32.0 L Platelet: 121 L Neutrophil %: 74.1 Protime: 21.2 H PT International Ratio: 1.8 Glucose Level: 104 Sodium Level: 140 Potassium Level: 4.1 BUN: 39.0 H Creatinine Lvl (s): 1.39 EKG No qualifying data available. Assessment/Plan Paroxysmal atrial fibrillation on warfarin (sotalol failure) GARY CAD s/p CABG and last PCI to RCA in 2018 Status post mitral valve repair and TRINITY HFrEF (EF 30%) s/p STOCK CHECKERER-D no acute exacerbation Patient came in for palpitations and tachycardia. Found to be in A-fib with RVR. Initially consider switching to amiodarone. Patient has plan for surgery and antiarrhythmic needs to be held. Will plan for rate control approach until the surgery is completed. EP is on board. He developed mild GARY today. Will hold Aldactone and Bumex. On discharge, will plan for diuretics as needed. Continue Entresto. Repeat the renal function in the afternoon. Possible discharge tomorrow. Will consult PT and OT. Digitally Signed by GATITO ROSE MD on 01/03/2025 01:52 PM [facility] [id number] Cardiology Consult note Date of Service 01/03/2025 Reason for Consultation Atrial fibrillation management Referring Physician General Cardiology History of Present Illness 79-year-old male with past medical history of hypertension, hyperlipidemia, CAD status post CABG status post PCI with TOOTIE to RCA in 2018, severe aortic stenosis status post TAVR, severe mitral regurgitation status post mitral valve repair, paroxysmal atrial fibrillation on sotalol and warfarin, heart failure with reduced ejection fraction, ischemic cardiopathy status post STOCK CHECKERER-D in 2016, and obesity presents emergency department on 12/31/2024 with complaints of palpitations and shortness of breath. Patient was admitted to the cardiology service for acute on chronic heart failure with reduced ejection fraction exacerbation and atrial fibrillation management. Electrophysiology consulted for atrial fibrillation management. Review of Systems Per HPI, Complete ROS otherwise negative Physical Exam Vitals and Measurements T: 36.6 C (Oral) TMIN: 36.4 C (Oral) TMAX: 37.4 C (Oral) HR: 70 (Monitored) RR: 16 BP: 97/68 SpO2: 97% WT: 78.4 kg Weight Current Weight Dosing Weight: 78.7 kg (12/31/24) Current Weight: 78.4 kg (01/03/25) Dosing Weight: 79.3 kg (12/31/24) General: AAOX3, NAD HEENT: Anicteric sclera, MMM Neck: Trachea midline, no JVD appreciated CVS: RRR, normal S1/S2, CABG Scar, left-sided STOCK CHECKERER-D scar Lung: CTAB, no wheezes/rhonchi/rales Abd: Soft, NT/ND Extrem: WWP, no LE edema Skin: Warm, Intact Neuro: AAOX3, spontaneous movement of all extremities Psych: Appropriate mood & affect Lab Results CMP 01/03/25 04:36 01/02/25 05:36 01/01/25 06:26 Glucose Level 117 mg/dL H 104 mg/dL 106 mg/dL Sodium Level 138 mEq/L 140 mEq/L 139 mEq/L Potassium Level 4.1 mEq/L 4.1 mEq/L 4.1 mEq/L Chloride 103 mEq/L 104 mEq/L 106 mEq/L CO2 26 mEq/L 28 mEq/L 25 mEq/L Electrolyte Balance 9.0 mEq/L 8.0 mEq/L 8.0 mEq/L BUN 44.0 mg/dL H 39.0 mg/dL H 38.0 mg/dL H Creatinine Lvl (s) 1.66 mg/dL H 1.39 mg/dL 1.29 mg/dL BUN/Creatinine Ratio 26.5 ratio H 28.1 ratio H 29.5 ratio H Calcium Lvl 9.0 mg/dL 9.4 mg/dL 8.9 mg/dL Estimated Glomerular Filtration Rate 41 ml/min/1.73sqm 51 ml/min/1.73sqm 56 ml/min/1.73sqm CBC 01/03/25 04:36 01/02/25 05:36 01/01/25 06:26 Hct 31.4 % L 32.0 % L 31.8 % L Hgb 10.7 G/dL L 10.8 G/dL L 10.8 G/dL L MCH 29.0 pg 28.8 pg 29.1 pg MCHC 34.0 G/dL 33.8 G/dL 34.0 G/dL MCV 85.2 fL 85.2 fL 85.5 fL MPV 8.6 fL 8.2 fL 9.2 fL Platelet 114 10^3/mcL L 121 10^3/mcL L 130 10^3/mcL L RBC 3.68 10^6/mcL L 3.76 10^6/mcL L 3.72 10^6/mcL L RDW 16.6 % H 16.9 % H 16.9 % H WBC 6.4 10^3/mcL 7.3 10^3/mcL 6.9 10^3/mcL Cardiac Enzymes Cardiac Enzymes High Sensitivity Troponin I: 65 ng/L High (12/31/24 15:10:00) N-Terminal proBNP: 1793 pg/mL (12/31/24 11:28:00) Lipids No qualifying data available. Imaging Results and Diagnostics XR Chest 1 View Result Date: December 31, 2024 Verified By: GENNA SANCHEZ DO CLINICAL STATEMENT: IMPRESSION: []Cardiomegaly. Chronic reticular pulmonary markings slightly increasedcompared to July 25, 2021 exam. Cardiomegaly and mild hilar vascularprominence. Assessment/Plan #Atrial fibrillation with underlying AV disassociation which is either complete heart block or contributed to by sotalol #GARY #Acute on chronic HFrEF exacerbation #Hypertension #Hyperlipidemia #CAD status post CABG status post PCI #Severe aortic stenosis status post TAVR #Mitral valve regurgitation status post mitral valve repair #Paroxysmal atrial fibrillation on sotalol and warfarin #Ischemic cardiomyopathy status post STOCK CHECKERER-D in 2016 #Obesity - Oral Surgery Assistant: Dr. Gant - Spearer: Dr. Toussaint - Latest EKG reviewed - Latest imaging reviewed - Latest echocardiogram reviewed - Latest ischemic work-up reviewed Recommendations: - Patient recently went out of rhythm and went back into atrial fibrillation causing heart failure - Patient states he is undergoing surgical removal of a head and neck cancer in the coming weeks - Recommend stopping all antiarrhythmics at this time as patient will need to be interrupted with his anticoagulation for surgery - Recommend a rate control strategy for now - Once head and neck cancer is dealt with antiarrhythmic therapy can be reconsidered at that time - Patient's device is also at DIANE on bedside interrogation, patient will need outpatient generator change as well. At that time, then DC cardioversion of atrial fibrillation will be performed as partof DFT testing, following uninterrupted therapeutic anticoagulation versus GERARDO-guidance, to restoresinus rhythm as needed. Patient seen and discussed with Dr. eC Maki II, MD PGY- Cardiovascular Disease Fellow Pager: [phone] I have seen this patient in conjunction with Dr. Maki. I have read all above notes, and amendedthem as needed, and I am in agreement. Arnulfo Encinas MD Problem List/Past Medical History Ongoing Acid reflux Acute kidney injury AF (atrial fibrillation) Aortic stenosis Asthma ASTHMA Atrial fibrillation BIVENTRICULAR ICD (IMPLANTABLE CARDIOVERTER-DEFIBRILLATOR) IN PLACE CAD - Coronary artery disease CAD IN [place] ARTERY Cardiomyopathy CHRONIC SYSTOLIC CHF (CONGESTIVE HEART FAILURE) CURRENT TOBACCO USE Diabetes mellitus type 2 Diarrhea Dyspnea on exertion Glasses Gout H/O valvular heart disease Hard of hearing Headache Hearing aid High blood pressure History of coronary artery bypass graft History of mitral valve replacement HOCM (HYPERTROPHIC OBSTRUCTIVE CARDIOMYOPATHY) Hypercholesterolemia Hypertension Hypokalemia Hyponatremia INCREASED BMI (Renamed from OVERWEIGHT) Irritable bowel syndrome Mitral regurgitation Peripheral artery disease PERMANENT ATRIAL FIBRILLATION Preop cardiovascular exam PULMONARY FIBROSIS SEVERE AORTIC STENOSIS Short of breath on exertion STATUS POST DEVICE CLOSURE OF ASD VALVULAR HEART DISEASE VT (Renamed from PAROXYSMAL VENTRICULAR TACHYCARDIA) VT (ventricular tachycardia) Wears dentures Historical Heart attack Hx of ventricular tachycardia Hypotension Panic attack Procedure/Surgical History Echocardiogram: 11/18/24 Echocardiogram: 12/16/22 Cardiac catheterization: 10/24/21 Cardiac catheterization: 07/29/21 Transcatheter mitral valve implantation/replacement (TMVI) with prosthetic valve; percutaneous approach, including transseptal puncture, when performed: 04/13/19 PTCA - Percutaneous transluminal coronary angioplasty: 02/12/18 Cardiac catheterization: 09/2015 Mitral valve prosthesis: 05/17/13 Insertion of intra-aortic balloon pump: 05/17/13 Implantation of automatic cardiac defibrillator: 2012 Balloon angioplasty of coronary artery: 2008 CABG - Coronary artery bypass graft: 2006 Appendectomy: 1993 Medications Inpatient albuterol 2.5 mg/3 mL (0.083%) inhalation solution, 2.5 mg= 3 mL, Inhalation, QIDRT, PRN albuterol 2.5 mg/3 mL (0.083%) inhalation solution, 2.5 mg= 3 mL, Inhalation, QIDRT aspirin 81 mg oral delayed release tablet, 81 mg= 1 tab(s), Oral, Daily Dextrose 50% IV Push, 25 gram(s)= 50 mL, IV Push, AsDirected, PRN Entresto 24 mg-26 mg oral tablet, 0.5 tab(s), Oral, BID Lipitor, 40 mg= 1 tab(s), Oral, qHS magnesium sulfate for IV bolus, 2 gram(s)= 50 mL, IV Piggyback, AsDirected, PRN magnesium sulfate for IV bolus, 4 gram(s)= 100 mL, IV Piggyback, AsDirected, PRN magnesium sulfate for IV bolus melatonin, 3 mg= 1 tab(s), Oral, qHS, PRN metoprolol succinate 25 mg oral TABLET extended release, 25 mg= 1 tab(s), Oral, qDayM montelukast, 10 mg= 1 tab(s), Oral, qDay NS 1,000 mL, 1000 mL, Intravenous pantoprazole, 20 mg= 1 tab(s), Oral, qDay potassium chloride, 20 mEq= 1 tab(s), Oral, AsDirected, PRN potassium chloride, 40 mEq= 2 tab(s), Oral, AsDirected, PRN potassium chloride, 40 mEq= 2 tab(s), Oral, AsDirected, PRN potassium chloride bolus, 20 mEq= 100 mL, IV Piggyback, AsDirected, PRN Pulmicort Respules 0.25 mg/2 mL inhalation suspension, 0.25 mg= 2 mL, Inhalation, BIDRT Tylenol, 650 mg= 2 tab(s), Oral, q4h, PRN warfarin, 2.5 mg= 1 tab(s), Oral, Sun//Thu//Sat warfarin, 5 mg= 1 tab(s), Oral, Thursday & Thursday Home aspirin 81 mg oral delayed release tablet, 81 mg= 1 tab(s), Oral, Daily bumetanide 1 mg oral tablet, 1 mg= 1 tab(s), Oral, qDay oral tablet, 1 tab(s), Oral, q6h, PRN Entresto 24 mg-26 mg oral tablet, 0.5 tab(s), Oral, BID, 3 refills Lipitor 40 mg oral tablet, 40 mg= 1 tab(s), Oral, qHS montelukast 10 mg oral tablet, 10 mg= 1 tab(s), Oral, qDay Nitrostat 0.4 mg sublingual tablet, 0.4 mg= 1 tab(s), Sublingual, q5min, PRN pantoprazole 20 mg oral enteric coated tablet, 20 mg= 1 tab(s), Oral, qDay sotalol 80 mg oral tablet, 160 mg= 2 tab(s), Oral, BID, 3 refills spironolactone 25 mg oral tablet, 25 mg= 1 tab(s), Oral, qDay, 1 refills Tylenol 325 mg oral tablet, 650 mg= 2 tab(s), Oral, q4h, PRN Ventolin HFA MDI (90 mcg/inh) inhalation aerosol, 2 puff(s), Inhalation, QID, PRN warfarin 5 mg oral tablet, 5 mg= 1 tab(s), Oral, Thursday & Thursday warfarin 5 mg oral tablet, 2.5 mg= 0.5 tab(s), Oral, Sun//Thu//Sat Wixela Inhub 100 mcg-50 mcg inhalation powder, 1 puff(s), Inhalation, BID Allergies NKA Social History Smoking Status - 04/09/2018 Former smoker Alcohol - Denies Alcohol Use, 03/09/2019 Use: Never., 07/25/2021 Use: Never., 12/24/2018 Employment/School Status: Retired., 10/07/2021 Sexual Sexually active: No., 12/24/2018 Substance Abuse - Denies Substance Abuse, 12/13/2017 Use: Never., 07/25/2021 Use: Never., 12/24/2018 Tobacco - Low Risk, 03/09/2019 Nicotine Use: 47 years ago., 03/10/2024 Nicotine Use: Former smoker, quit more than 30 days ago. Type: Oral (Snuff, Chew)., 07/25/2021 Tobacco Use: rubs snuff., 03/09/2019 Family History Cancer: Mother. Diabetes mellitus: Mother. HTN - Hypertension: Mother, Father and Sister. Health Status Family Member(s) Immunizations pneumococcal 23-valent vaccine(Pneumovax: 0.5 unknown unit (07/19/21) pneumococcal 23-valent vaccine(Pneumovax: 0.5 mL (06/10/13) SARS-CoV-2 mRNA (tozinameran) vaccine: 30 unknown unit (11/01/20) SARS-CoV-2 mRNA (tozinameran) vaccine: 30 unknown unit (10/11/20) tetanus/diphth/pertuss (Tdap) adult/adol: 0.5 mL (03/24/16) Digitally Signed by CATRACHITO MAKI MD on 01/03/2025 12:38 PM Digitally Signed by ARNULFO ENCINAS MD, Dr on 01/03/2025 06:25 PM [id number] Discharge instructions Patient Education 01/03/2025 02:04:48 Atrial Fibrillation Atrial Fibrillation Atrial fibrillation is a type of irregular or rapid heartbeat (arrhythmia). In atrial fibrillation,the top part of the heart (atria) quivers in a chaotic pattern. This makes the heart unable to pumpblood normally. Having atrial fibrillation can increase your risk for other health problems, such as: Blood can pool in the atria and form clots. If a clot travels to the brain, it can cause a stroke. The heart muscle may weaken from the irregular blood flow. This can cause heart failure. Atrial fibrillation may start suddenly and stop on its own, or it may become a long-lasting problem. What are the causes? This condition is caused by some heart-related conditions or procedures, including: High blood pressure. This is the most common cause. Heart failure. Heart valve conditions. Inflammation of the sac that surrounds the heart (pericarditis). Heart surgery. Coronary artery disease. Certain heart rhythm disorders, such as Singh Parkinson White syndrome. Other causes include: Pneumonia. Obstructive sleep apnea. Lung cancer. Thyroid problems, especially if the thyroid is overactive (hyperthyroidism). Excessive alcohol or drug use. Sometimes, the cause of this condition is not known. What increases the risk? This condition is more likely to develop in: Older people. People who smoke. People who have diabetes mellitus. People who are overweight (obese). Athletes who exercise vigorously. People who have a family history. What are the signs or symptoms? Symptoms of this condition include: A feeling that your heart is beating rapidly or irregularly. A feeling of discomfort or pain in your chest. Shortness of breath. Sudden light-headedness or weakness. Getting tired easily during exercise. In some cases, there are no symptoms. How is this diagnosed? Your health care provider may be able to detect atrial fibrillation when taking your pulse. If detected, this condition may be diagnosed with: Electrocardiogram (ECG). Ambulatory cardiac cath tech. This device records your heartbeats for 24 hours or more. Transthoracic echocardiogram (TTE) to evaluate how blood flows through your heart. Transesophageal echocardiogram (GERARDO) to view more detailed images of your heart. A stress test. Imaging tests, such as a CT scan or chest X-ray. Blood tests. How is this treated? This condition may be treated with: Medicines to slow down the heart rate or bring the heart's rhythm back to normal. Medicines to prevent blood clots from forming. Electrical cardioversion. This delivers a low-energy shock to the heart to reset its rhythm. Ablation. This procedure destroys the part of the heart tissue that sends abnormal signals. Left atrial appendage occlusion/excision. This seals off a common place in the atria where blood clots can form (left atrial appendage). The goal of treatment is to prevent blood clots from forming and to keep your heart beating at a normal rate and rhythm. Treatment depends on underlying medical conditions and how you feel when you are experiencing fibrillation. Follow these instructions at home: Medicines Take over-the counter and prescription medicines only as told by your health care provider. If your health care provider prescribed a blood-thinning medicine (anticoagulant), take it exactly as told. Taking too much blood-thinning medicine can cause bleeding. Taking too little can enable a blood clot to form and travel to the brain, causing a stroke. Lifestyle Do not use any products that contain nicotine or tobacco, such as cigarettes and e-cigarettes. If you need help quitting, ask your health care provider. Do not drink beverages that contain caffeine, such as coffee, soda, and tea. Follow diet instructions as told by your health care provider. Exercise regularly as told by your health care provider. Do not drink alcohol. General instructions If you have obstructive sleep apnea, manage your condition as told by your health care provider. Maintain a healthy weight. Do not use diet pills unless your health care provider approves. Diet pills may make heart problems worse. Keep all follow-up visits as told by your health care provider. This is important. Contact a health care provider if you: Notice a change in the rate, rhythm, or strength of your heartbeat. Are taking an anticoagulant and you notice increased bruising. Tire more easily when you exercise or exert yourself. Have a sudden change in weight. Get help right away if you have: Chest pain, abdominal pain, sweating, or weakness. Difficulty breathing. Blood in your vomit, stool (feces), or urine. Any symptoms of a stroke. BE FAST is an easy way to remember the main warning signs of a stroke: ?B - Balance. Signs are dizziness, sudden trouble walking, or loss of balance. ?E - Eyes. Signs are trouble seeing or a sudden change in vision. ?F - Face. Signs are sudden weakness or numbness of the face, or the face or eyelid drooping on oneside. ?A - Arms. Signs are weakness or numbness in an arm. This happens suddenly and usually on one side of the body. ?S - Speech. Signs are sudden trouble speaking, slurred speech, or trouble understanding what people say. ?T - Time. Time to call emergency services. Write down what time symptoms started. Other signs of a stroke, such as: ?A sudden, severe headache with no known cause. ?Nausea or vomiting. ?Seizure. These symptoms may represent a serious problem that is an emergency. Do not wait to see if the symptoms will go away. Get medical help right away. Call your local emergency services (911 in the [place] Do not drive yourself to the hospital. Summary Atrial fibrillation is a type of irregular or rapid heartbeat (arrhythmia). Symptoms include a feeling that your heart is beating fast or irregularly. In some cases, you may not have symptoms. The condition is treated with medicines to slow down the heart rate or bring the heart's rhythm back to normal. You may also need blood-thinning medicines to prevent blood clots. Get help right away if you have symptoms or signs of a stroke. This information is not intended to replace advice given to you by your health care provider. Make sure you discuss any questions you have with your health care provider. Document Released: 07/27/2006 Document Revised: 09/16/2018 Document Reviewed: 09/17/2018 [employer] Patient Education 2020 [employer] Follow Up Care 12/31/2024 10:43:09 With:VERONIQUE TOUSSAINT MD Address: [address] [place] [address] [address] [facility] [place] [address]- [phone] When:Within 2 Week(s) With:BRIONNA GANT MD Address: [address] [facility] [address] [place] [address]- [phone] When:Within 2 Week(s) With:Post 1XRN Discharge Visit FollowUp scheduled for 01-06-25 b/t 8a-12p Address:Unknown When: Unknown With:[facility] Address: [address] [place] [address] [address] [place], [place] [address]- [phone] When:03/21/2025 14:30:00 With:BRIONNA GANT MD Address: [address] [facility] [address] [place] [address]- [phone] When:06/06/2025 14:00:00 With:GEORGE MATA MD Address: [address] [place], [place] [address]- [phone] When:1-2 days Comments:Please call the office to schedule a hospital follow up appointment. [facility] 05-26-2025 Cardiology Progress note Date of Service 01/02/2025 Subjective No acute events this morning. Patient remains mildly tachycardic low 100s this morning. Objective Vitals and Measurements T: 36.4 C (Oral) TMIN: 36.4 C (Oral) TMAX: 37.0 C (Oral) HR: 94 (Monitored) RR: 18 BP: 94/48 SpO2: 94% Intake and Output 7AM Yesterday to 7AM Today Intake and Output (Last 24 hours) Intake Oral Intake 1075.00 Output Urine Voided 725.00 Stool Count 0.00 Urine Count 2.00 Total Summary Total Intake 1075.00 Total Output 725.00 Fluid Balance 350.00 Physical Exam General: AAOX3, NAD HEENT: Anicteric sclera, MMM Neck: Trachea midline, no JVD appreciated CVS: Tachycardic, normal S1/S2, no murmurs/rubs/gallops Lung: CTAB, no wheezes/rhonchi/rales Abd: Soft, NT/ND Extrem: WWP, no LE edema Skin: Warm, Intact Neuro: AAOX3, spontaneous movement of all extremities Psych: Appropriate mood & affect Weight Dosing Weight: 78.7 kg (12/31/24) Dosing Weight: 79.3 kg (12/31/24) Medications Medications (24) Active Scheduled: (13) albuterol 0.083% Soln UD (2.5mg/3 mL) 2.5 mg 3 mL, Inhalation, QIDRT amiodarone 200 mg tablet 400 mg 2 tab(s), Oral, BIDM aspirin 81 mg EC 81 mg 1 tab(s), Oral, Daily atorvastatin 40 mg tablet 40 mg 1 tab(s), Oral, qHS budesonide 0.25 mg/2 mL Susp UD 0.25 mg 2 mL, Inhalation, BIDRT bumetanide 1 mg tablet 1 mg 1 tab(s), Oral, qDay metoprolol succinate 25 mg ER tablet 25 mg 1 tab(s), Oral, qDayM montelukast 10 mg Tablet 10 mg 1 tab(s), Oral, qDay pantoprazole 20 mg EC tablet 20 mg 1 tab(s), Oral, qDay sacubitril-valsartan 24-26 mg oral tablet 0.5 tab(s), Oral, BID spironolactone 25 mg tablet 25 mg 1 tab(s), Oral, qDayM warfarin 2.5 mg tablet 2.5 mg 1 tab(s), Oral, Sun//Thu//Sat warfarin 5 mg tablet 5 mg 1 tab(s), Oral, Thursday & Thursday Continuous: (0) PRN: (11) acetaminophen 325 mg Tablet 650 mg 2 tab(s), Oral, q4h albuterol 0.083% Soln UD (2.5mg/3 mL) 2.5 mg 3 mL, Inhalation, QIDRT dextrose 50% Solution Disp syringe 50 mL 25 gram(s) 50 mL, IV Push, AsDirected magnesium sulfate 4 gram(s)/100mL PMX 4 g 100 mL, IV Piggyback, AsDirected magnesium sulfate 50% (500mg/mL) 6 g 12 mL, IV Piggyback, AsDirected magnesium sulfate PMX 2 g 50 mL, IV Piggyback, AsDirected melatonin 3 mg tablet 3 mg 1 tab(s), Oral, qHS potassium chloride (PMX) 20 mEq/100 mL 20 mEq 100 mL, IV Piggyback, AsDirected potassium chloride 20 mEq ER tablet 20 mEq 1 tab(s), Oral, AsDirected potassium chloride 20 mEq ER tablet 40 mEq 2 tab(s), Oral, AsDirected potassium chloride 20 mEq ER tablet 40 mEq 2 tab(s), Oral, AsDirected Lab Results 01/02 05:36 WBC: 7.3 Hgb: 10.8 L Hct: 32.0 L Platelet: 121 L Neutrophil %: 74.1 Protime: 21.2 H PT International Ratio: 1.8 Glucose Level: 104 Sodium Level: 140 Potassium Level: 4.1 BUN: 39.0 H Creatinine Lvl (s): 1.39 01/01 06:26 WBC: 6.9 Hgb: 10.8 L Hct: 31.8 L Platelet: 130 L Neutrophil %: 74.1 Protime: 21.8 H PT International Ratio: 1.9 Glucose Level: 106 Sodium Level: 139 Potassium Level: 4.1 BUN: 38.0 H Creatinine Lvl (s): 1.29 EKG No qualifying data available. Assessment/Plan Chronic atrial fibrillation on sotalol and warfarin, presented with RVR CAD s/p CABG and PCI to the RCA 2018 History of severe aortic stenosis s/p TAVR Mitral regurgitation s/p MV repair Heart failure with reduced ejection fraction (LVEF 30%) s/p STOCK CHECKERER-D, well compensated Plan: Rates better controlled, however still having periods of mild tachycardia. Continue amiodarone 400 mg twice daily for now. Continue home warfarin. Plan for EP consult tomorrow for additional recommendations. Continue home Bumex 1 mg p.o. daily, Entresto, Toprol-XL. [1] History and Physical; GINGER ALEXANDRE DO 12/31/2024 16:50 EDT Digitally Signed by GINGER ALEXANDRE DO on 01/02/2025 06:21 PM [id number] Cardiology Progress note Date of Service 01/02/2025 Subjective No acute events this morning. Patient remains mildly tachycardic low 100s this morning. Objective Vitals and Measurements T: 36.4 C (Oral) TMIN: 36.4 C (Oral) TMAX: 37.0 C (Oral) HR: 94 (Monitored) RR: 18 BP: 94/48 SpO2: 94% Intake and Output 7AM Yesterday to 7AM Today Intake and Output (Last 24 hours) Intake Oral Intake 1075.00 Output Urine Voided 725.00 Stool Count 0.00 Urine Count 2.00 Total Summary Total Intake 1075.00 Total Output 725.00 Fluid Balance 350.00 Physical Exam General: AAOX3, NAD HEENT: Anicteric sclera, MMM Neck: Trachea midline, no JVD appreciated CVS: Tachycardic, normal S1/S2, no murmurs/rubs/gallops Lung: CTAB, no wheezes/rhonchi/rales Abd: Soft, NT/ND Extrem: WWP, no LE edema Skin: Warm, Intact Neuro: AAOX3, spontaneous movement of all extremities Psych: Appropriate mood & affect Weight Dosing Weight: 78.7 kg (12/31/24) Dosing Weight: 79.3 kg (12/31/24) Medications Medications (24) Active Scheduled: (13) albuterol 0.083% Soln UD (2.5mg/3 mL) 2.5 mg 3 mL, Inhalation, QIDRT amiodarone 200 mg tablet 400 mg 2 tab(s), Oral, BIDM aspirin 81 mg EC 81 mg 1 tab(s), Oral, Daily atorvastatin 40 mg tablet 40 mg 1 tab(s), Oral, qHS budesonide 0.25 mg/2 mL Susp UD 0.25 mg 2 mL, Inhalation, BIDRT bumetanide 1 mg tablet 1 mg 1 tab(s), Oral, qDay metoprolol succinate 25 mg ER tablet 25 mg 1 tab(s), Oral, qDayM montelukast 10 mg Tablet 10 mg 1 tab(s), Oral, qDay pantoprazole 20 mg EC tablet 20 mg 1 tab(s), Oral, qDay sacubitril-valsartan 24-26 mg oral tablet 0.5 tab(s), Oral, BID spironolactone 25 mg tablet 25 mg 1 tab(s), Oral, qDayM warfarin 2.5 mg tablet 2.5 mg 1 tab(s), Oral, Sun//Thu//Sat warfarin 5 mg tablet 5 mg 1 tab(s), Oral, Thursday & Thursday Continuous: (0) PRN: (11) acetaminophen 325 mg Tablet 650 mg 2 tab(s), Oral, q4h albuterol 0.083% Soln UD (2.5mg/3 mL) 2.5 mg 3 mL, Inhalation, QIDRT dextrose 50% Solution Disp syringe 50 mL 25 gram(s) 50 mL, IV Push, AsDirected magnesium sulfate 4 gram(s)/100mL PMX 4 g 100 mL, IV Piggyback, AsDirected magnesium sulfate 50% (500mg/mL) 6 g 12 mL, IV Piggyback, AsDirected magnesium sulfate PMX 2 g 50 mL, IV Piggyback, AsDirected melatonin 3 mg tablet 3 mg 1 tab(s), Oral, qHS potassium chloride (PMX) 20 mEq/100 mL 20 mEq 100 mL, IV Piggyback, AsDirected potassium chloride 20 mEq ER tablet 20 mEq 1 tab(s), Oral, AsDirected potassium chloride 20 mEq ER tablet 40 mEq 2 tab(s), Oral, AsDirected potassium chloride 20 mEq ER tablet 40 mEq 2 tab(s), Oral, AsDirected Lab Results 01/02 05:36 WBC: 7.3 Hgb: 10.8 L Hct: 32.0 L Platelet: 121 L Neutrophil %: 74.1 Protime: 21.2 H PT International Ratio: 1.8 Glucose Level: 104 Sodium Level: 140 Potassium Level: 4.1 BUN: 39.0 H Creatinine Lvl (s): 1.39 01/01 06:26 WBC: 6.9 Hgb: 10.8 L Hct: 31.8 L Platelet: 130 L Neutrophil %: 74.1 Protime: 21.8 H PT International Ratio: 1.9 Glucose Level: 106 Sodium Level: 139 Potassium Level: 4.1 BUN: 38.0 H Creatinine Lvl (s): 1.29 EKG No qualifying data available. Assessment/Plan Chronic atrial fibrillation on sotalol and warfarin, presented with RVR CAD s/p CABG and PCI to the RCA 2018 History of severe aortic stenosis s/p TAVR Mitral regurgitation s/p MV repair Heart failure with reduced ejection fraction (LVEF 30%) s/p STOCK CHECKERER-D, well compensated Plan: Rates better controlled, however still having periods of mild tachycardia. Continue amiodarone 400 mg twice daily for now. Continue home warfarin. Plan for EP consult tomorrow for additional recommendations. Continue home Bumex 1 mg p.o. daily, Entresto, Toprol-XL. [1] History and Physical; GINGER ALEXANDRE DO 12/31/2024 16:50 EDT Digitally Signed by GINGER ALEXANDRE DO on 01/02/2025 06:21 PM [id number] Cardiology Progress note Review of symptoms: Review of symptoms including (Constitutional, Respiratory, Cardiac, Gastrointestinal, Neurological,Psychiatric) was performed and is otherwise negative except as in HPI Medication List Active Medications Ordered acetaminophen: 650 mg, 2 tab(s), Oral, q4h, PRN: Pain, scale 1-3. albuterol: 2.5 mg, 3 mL, Inhalation, QIDRT, PRN: Wheezing. albuterol: 2.5 mg, 3 mL, Inhalation, QIDRT. amiodarone: 400 mg, 2 tab(s), Oral, BIDM. aspirin: 81 mg, 1 tab(s), Oral, Daily. atorvastatin: 40 mg, 1 tab(s), Oral, qHS. budesonide: 0.25 mg, 2 mL, Inhalation, BIDRT. bumetanide: 1 mg, 1 tab(s), Oral, qDay. glucose: 25 gram(s), 50 mL, IV Push, AsDirected, PRN: Low blood sugar. magnesium sulfate: 2 g, 50 mL, 25 mL/hr, IV Piggyback, AsDirected, PRN: for Mg level 1.5-1.8 mg/dl. magnesium sulfate: 4 g, 100 mL, 25 mL/hr, IV Piggyback, AsDirected, PRN: for Mg level 1.1-1.4 mg/dl. magnesium sulfate: 6 g, 12 mL, 41.67 mL/hr, IV Piggyback, AsDirected, PRN: for Mg level 1 mg/dl or less. melatonin: 3 mg, 1 tab(s), Oral, qHS, PRN: Sleep. metoprolol: 25 mg, 1 tab(s), Oral, qDayM. montelukast: 10 mg, 1 tab(s), Oral, qDay. pantoprazole: 20 mg, 1 tab(s), Oral, qDay. potassium chloride: 20 mEq, 1 tab(s), Oral, AsDirected, PRN: for K+ level 3.5 - 3.9 mEq/L. potassium chloride: 40 mEq, 2 tab(s), Oral, AsDirected, PRN: for K+ level 3-3.4 mEq/L. potassium chloride: 20 mEq, 100 mL, 50 mL/hr, IV Piggyback, AsDirected, PRN: for K+ level 2.5 - 2.9 mEq/dL. potassium chloride: 40 mEq, 2 tab(s), Oral, AsDirected, PRN: for K+ level 2.5 - 2.9 mEq/dL. sacubitril-valsartan: 0.5 tab(s), Oral, BID. spironolactone: 25 mg, 1 tab(s), Oral, qDayM. warfarin: 2.5 mg, 1 tab(s), Oral, Sun//Thu//Sat. warfarin: 5 mg, 1 tab(s), Oral, Thursday & Thursday. Prescribed bumetanide: 1 mg, 1 tab(s), Oral, qDay, 30 tab(s), 0 Refill(s). sacubitril-valsartan: 0.5 tab(s), Oral, BID, 90 tab(s), 3 Refill(s). sotalol: 160 mg, 2 tab(s), Oral, BID, 360 tab(s), 3 Refill(s). spironolactone: 25 mg, 1 tab(s), Oral, qDay, 90 tab(s), 1 Refill(s). Documented acetaminophen: 650 mg, 2 tab(s), Oral, q4h, PRN: as needed for pain. albuterol: 2 puff(s), Inhalation, QID, PRN: as needed for wheezing, 0 Refill(s). aspirin: 81 mg, 1 tab(s), Oral, Daily, 0 Refill(s). atorvastatin: 40 mg, 1 tab(s), Oral, qHS, 30 tab(s), 0 Refill(s). atropine/hyoscyamine/PB/scopolamine: 1 tab(s), Oral, q6h, PRN: as needed for indigestion, 0 Refill(s). fluticasone-salmeterol: 1 puff(s), Inhalation, BID, 0 Refill(s). montelukast: 10 mg, 1 tab(s), Oral, qDay. nitroGLYcerin: 0.4 mg, 1 tab(s), Sublingual, q5min, PRN: as needed for chest pain, 100 tab(s), 0 Refill(s). pantoprazole: 20 mg, 1 tab(s), Oral, qDay, 30 tab(s), 0 Refill(s). warfarin: 5 mg, 1 tab(s), Oral, Thursday & Thursday. warfarin: 2.5 mg, 0.5 tab(s), Oral, Sun//Thu//Sat. Medications Inactivated in the Last 72 Hours fluticasone-salmeterol: 1 puff(s), Inhalation, BID. pantoprazole: 20 mg, 1 tab(s), Oral, qDay, 0 Refill(s). sotalol: 160 mg, 2 tab(s), Oral, BID. warfarin: 2.5 mg, Oral, Sun//, 0 Refill(s). warfarin: 5 mg, 1 tab(s), Oral, Thu/Thu/Thu/Sat, 0 Refill(s). 36hr Labs 01/01 0626 Potassium Level4.1 Calcium Lvl8.9 Yetwyffq998 Electrolyte Balance8.0 CO225 BUN/Creatinine Ratio29.5H Glucose Uevef385 BUN38.0H Estimated Glomerular Qfmgyfy61 Sodium Qkmuo109 Creatinine Lvl (s)1.29 Magnesium Lvl2.1 Ngvaxrj04.8H PT International Ratio1.9 RDW16.9H Neutrophil, Absolute5.1 Lymphocyte %12.2L Hct31.8L Monocyte, Absolute0.7 Awswuunw610S Monocyte %10.3 MCV85.5 Eosinophil, Absolute0.2 MPV9.2 Eosinophil %2.7 Basophil, Absolute0.1 WBC6.9 MCH29.1 Basophil %0.7 RBC3.72L MCHC34.0 Neutrophil %74.1 Lymphocyte, Absolute0.8L Hgb10.8L 12/31 2108 Rgyzizl20.1H PT International Ratio1.8 12/31 1510 High Sensitivity Troponin I65H 12/31 1322 High Sensitivity Troponin I69H 12/31 1128 BUN41.0H Tzcykhee304 Bili Total1.10 BUN/Creatinine Ratio29.3H Glucose Rsnyr411U CO228 Creatinine Lvl (s)1.40 Alk Phos80 Globulin3.7 Sodium Gnlvv095 Estimated Glomerular Sejtrtu29 Calcium Lvl9.4 AST/SGOT22 High Sensitivity Troponin I63H A/G Ratio1.0 Potassium Level4.0 Total Protein7.4 ALT/SGPT13 N-Terminal vpqDUZ1408 Albumin Level3.7 Electrolyte Balance8.0 PT International Ratio1.6 Aktxdrh67.7H Basophil %0.6 RBC4.08L MCHC34.4 Monocyte Distribution Width19.60 Neutrophil %75.8H Lymphocyte, Absolute0.7L Hgb11.9L Neutrophil, Absolute5.1 RDW16.8H Lymphocyte %11.1L Monocyte, Absolute0.7 Hct34.5L Keoyauls312C Monocyte %9.7 Eosinophil, Absolute0.2 MCV84.7 MPV8.9 Eosinophil %2.8 Basophil, Absolute0.0 WBC6.7 MCH29.1 Vitals Signs(Last 24 hrs)__Last Charted Minimum Maximum Temp36.8(JANUARY 01 07:23)36.8(JANUARY 01 07:23)36.6(DECEMBER 31 18:28) Heart Rate70(JANUARY 01 11:14)70(DECEMBER 31 22:53)74(DECEMBER 31 18:28) SBP98(JANUARY 01 11:14)L 81(JANUARY 01 00:06)110(DECEMBER 31 17:46) DBPL 56(JANUARY 01 11:14)C 42(JANUARY 01 05:39)76(DECEMBER 31 17:46) General: alert, oriented X3, well groomed and in night gown Cardiovascular: RRR, nS1S2, no murmur, no JVD, no gallop, no thrills, bilateral radial pulse 2+ Lungs: no bilateral crackles, no wheezing, no rales, no diminished lung sounds, symmetrical chest movement Abdomen: Soft, non tender, non distended, positive bowel sounds, no hepatosplenomegally Extremity: No edema, no deformity, no cyanosis, no clubbing Assessment and Plan I personally reviewed the patient s recent medications, orders, vitals, labs, and X ray reports/images. Also I personally reviewed recent cardiac telemetry and other pertinent available cardiac studies and images including EKG, ECHO and cardiac catheterization images Medications were reviewed and changes were made in EMR Patient is risk of deterioration. Needs close monitoring Chronic atrial fibrillation failing sotalol has multiple mode switch on device/breakthrough episodes of atrial fibrillation and patient is symptomatic. Suggest stop sotalol and start amiodarone Status post TAVR and mitral valve repair Chronic systolic heart failure LVEF 30% Ischemic cardiomyopathy status post STOCK CHECKERER D- continue home medications CAD status post CABG last intervention was in RCA 2018 Hypertension Dyslipidemia Suggest start amiodarone 400mg p.o. BID , Patient was on high-dose sotalol we stopped it yesterday. Will reassess tomorrow adding IV amiodarone load depending on telemetry On discharge decrease amiodarone dose EP consult on Thursday Digitally Signed by CARLOS RIDLEY MD on 01/01/2025 12:32 PM [id number] History and physical note Date of Service 01/01/2025 Chief Complaint pt presents with concerns of increase in heart rate this morning at home History of Present Illness 79-year-old male with a past medical history of CAD s/p CABG and PCI to the RCA in 2018, hypertension, hyperlipidemia, severe aortic stenosis s/p TAVR, mitral regurgitation s/p mitral valve repair, atrial fibrillation on sotalol and warfarin, and heart failure with reduced ejection fraction (LVEF 30%) s/p STOCK CHECKERER-D, presented to the emergency department for evaluation of tachycardia. The patient states that he was noticing fast heart rates and palpitations at home this morning when he woke up. He also reports associated shortness of breath and fatigue. The patient and his reached out to the on-call vat house supervisor who instructed them to present to the emergency department for evaluation of the tachycardia. In the emergency department, the patient was hemodynamically stable and was noted to be tachycardic at 104 bpm. Initial labs showed normal renal function and electrolytes. INR 1.6. High-sensitivity troponin elevated at 63, however flat at 69-65. NT proBNP slightly elevated at 1793. The patient was admitted to the cardiology service for further evaluation and management. Review of Systems Negative unless noted in HPI. Physical Exam Vitals and Measurements Weight Dosing Weight: 78.7 kg (12/31/24) Dosing Weight: 79.3 kg (12/31/24) General: AAOX3, NAD HEENT: Anicteric sclera, MMM Neck: Trachea midline, no JVD appreciated CVS: RRR, normal S1/S2, no murmurs/rubs/gallops Lung: CTAB, no wheezes/rhonchi/rales Abd: Soft, NT/ND Extrem: WWP, no LE edema Skin: Warm, Intact Neuro: AAOX3, spontaneous movement of all extremities Psych: Appropriate mood & affect Lab Results 12/31 21:08 Protime: 21.1 H PT International Ratio: 1.8 12/31 11:28 WBC: 6.7 Hgb: 11.9 L Hct: 34.5 L Platelet: 133 L Neutrophil %: 75.8 H Protime: 18.7 H PT International Ratio: 1.6 Glucose Level: 141 H Sodium Level: 138 Potassium Level: 4.0 BUN: 41.0 H Creatinine Lvl (s): 1.40 Imaging Results and Diagnostics XR Chest 1 View Result Date: December 31, 2024 Verified By: GENNA SANCHEZ DO CLINICAL STATEMENT: IMPRESSION: []Cardiomegaly. Chronic reticular pulmonary markings slightly increasedcompared to July 25, 2021 exam. Cardiomegaly and mild hilar vascularprominence. Assessment/Plan Chronic atrial fibrillation on sotalol and warfarin, presented with RVR CAD s/p CABG and PCI to the RCA 2018 History of severe aortic stenosis s/p TAVR Mitral regurgitation s/p MV repair Heart failure with reduced ejection fraction (LVEF 30%) s/p STOCK CHECKERER-D, well compensated Plan: The patient symptoms at home are most likely due to rapid atrial fibrillation. His STOCK CHECKERER-D was interrogated in the emergency department multiple episodes of A- fib/flutter were recorded throughout the day today. The patient remains hemodynamically stable at the time of admission. At this point, we will continue his home sotalol 160 mg dose and add low-dose metoprolol 25 mg in addition to this. Starting tomorrow, will hold the sotalol and consider transitioning to amiodarone for better rate control. Continue home HF GDMT and diuretic. Patient does not appear to be significantly decompensated fromHF perspective. Monitor urine output and renal function daily. Problem List/Past Medical History Ongoing Acid reflux Acute kidney injury AF (atrial fibrillation) Aortic stenosis Asthma ASTHMA Atrial fibrillation BIVENTRICULAR ICD (IMPLANTABLE CARDIOVERTER-DEFIBRILLATOR) IN PLACE CAD - Coronary artery disease CAD IN [place] ARTERY Cardiomyopathy CHRONIC SYSTOLIC CHF (CONGESTIVE HEART FAILURE) CURRENT TOBACCO USE Diabetes mellitus type 2 Diarrhea Dyspnea on exertion Glasses Gout H/O valvular heart disease Hard of hearing Headache Hearing aid High blood pressure History of coronary artery bypass graft History of mitral valve replacement HOCM (HYPERTROPHIC OBSTRUCTIVE CARDIOMYOPATHY) Hypercholesterolemia Hypertension Hypokalemia Hyponatremia INCREASED BMI (Renamed from OVERWEIGHT) Irritable bowel syndrome Mitral regurgitation Peripheral artery disease PERMANENT ATRIAL FIBRILLATION Preop cardiovascular exam PULMONARY FIBROSIS SEVERE AORTIC STENOSIS Short of breath on exertion STATUS POST DEVICE CLOSURE OF ASD VALVULAR HEART DISEASE VT (Renamed from PAROXYSMAL VENTRICULAR TACHYCARDIA) VT (ventricular tachycardia) Wears dentures Historical Heart attack Hx of ventricular tachycardia Hypotension Panic attack Procedure/Surgical History Echocardiogram: 11/18/24 Echocardiogram: 12/16/22 Cardiac catheterization: 10/24/21 Cardiac catheterization: 07/29/21 Transcatheter mitral valve implantation/replacement (TMVI) with prosthetic valve; percutaneous approach, including transseptal puncture, when performed: 04/13/19 PTCA - Percutaneous transluminal coronary angioplasty: 02/12/18 Cardiac catheterization: 09/2015 Mitral valve prosthesis: 05/17/13 Insertion of intra-aortic balloon pump: 05/17/13 Implantation of automatic cardiac defibrillator: 2012 Balloon angioplasty of coronary artery: 2008 CABG - Coronary artery bypass graft: 2006 Appendectomy: 1993 Medications Home Medications (15) Active aspirin 81 mg oral delayed release tablet 81 mg = 1 tab(s), Oral, Daily bumetanide 1 mg oral tablet 1 mg = 1 tab(s), Oral, qDay oral tablet 1 tab(s), PRN, Oral, q6h Entresto 24 mg-26 mg oral tablet 0.5 tab(s), Oral, BID Lipitor 40 mg oral tablet 40 mg = 1 tab(s), Oral, qHS montelukast 10 mg oral tablet 10 mg = 1 tab(s), Oral, qDay Nitrostat 0.4 mg sublingual tablet 0.4 mg = 1 tab(s), PRN, Sublingual, q5min pantoprazole 20 mg oral enteric coated tablet 20 mg = 1 tab(s), Oral, qDay sotalol 80 mg oral tablet 160 mg = 2 tab(s), Oral, BID spironolactone 25 mg oral tablet 25 mg = 1 tab(s), Oral, qDay Tylenol 325 mg oral tablet 650 mg = 2 tab(s), PRN, Oral, q4h Ventolin HFA MDI (90 mcg/inh) inhalation aerosol 2 puff(s), PRN, Inhalation, QID warfarin 5 mg oral tablet 5 mg = 1 tab(s), Oral, Thursday & Thursday warfarin 5 mg oral tablet 2.5 mg = 0.5 tab(s), Oral, Sun//Thu//Sat Wixela Inhub 100 mcg-50 mcg inhalation powder 1 puff(s), Inhalation, BID Allergies NKA Social History Smoking Status - 04/09/2018 Former smoker Alcohol - Denies Alcohol Use, 03/09/2019 Use: Never., 07/25/2021 Use: Never., 12/24/2018 Employment/School Status: Retired., 10/07/2021 Sexual Sexually active: No., 12/24/2018 Substance Abuse - Denies Substance Abuse, 12/13/2017 Use: Never., 07/25/2021 Use: Never., 12/24/2018 Tobacco - Low Risk, 03/09/2019 Nicotine Use: 47 years ago., 03/10/2024 Nicotine Use: Former smoker, quit more than 30 days ago. Type: Oral (Snuff, Chew)., 07/25/2021 Tobacco Use: rubs snuff., 03/09/2019 Family History Cancer: Mother. Diabetes mellitus: Mother. HTN - Hypertension: Mother, Father and Sister. Health Status Family Member(s) Immunizations pneumococcal 23-valent vaccine(Pneumovax: 0.5 unknown unit (07/19/21) pneumococcal 23-valent vaccine(Pneumovax: 0.5 mL (06/10/13) SARS-CoV-2 mRNA (tozinameran) vaccine: 30 unknown unit (11/01/20) SARS-CoV-2 mRNA (tozinameran) vaccine: 30 unknown unit (10/11/20) tetanus/diphth/pertuss (Tdap) adult/adol: 0.5 mL (03/24/16) Code Status Code Status - Ordered -- 12/31/24 16:42:00 EDT, Full Code, Constant Order Digitally Signed by GINGER ALEXANDRE DO on 01/01/2025 01:18 AM [id number] History and physical note Date of Service 01/01/2025 Chief Complaint pt presents with concerns of increase in heart rate this morning at home History of Present Illness 79-year-old male with a past medical history of CAD s/p CABG and PCI to the RCA in 2018, hypertension, hyperlipidemia, severe aortic stenosis s/p TAVR, mitral regurgitation s/p mitral valve repair, atrial fibrillation on sotalol and warfarin, and heart failure with reduced ejection fraction (LVEF 30%) s/p STOCK CHECKERER-D, presented to the emergency department for evaluation of tachycardia. The patient states that he was noticing fast heart rates and palpitations at home this morning when he woke up. He also reports associated shortness of breath and fatigue. The patient and his reached out to the on-call vat house supervisor who instructed them to present to the emergency department for evaluation of the tachycardia. In the emergency department, the patient was hemodynamically stable and was noted to be tachycardic at 104 bpm. Initial labs showed normal renal function and electrolytes. INR 1.6. High-sensitivity troponin elevated at 63, however flat at 69-65. NT proBNP slightly elevated at 1793. The patient was admitted to the cardiology service for further evaluation and management. Review of Systems Negative unless noted in HPI. Physical Exam Vitals and Measurements Weight Dosing Weight: 78.7 kg (12/31/24) Dosing Weight: 79.3 kg (12/31/24) General: AAOX3, NAD HEENT: Anicteric sclera, MMM Neck: Trachea midline, no JVD appreciated CVS: RRR, normal S1/S2, no murmurs/rubs/gallops Lung: CTAB, no wheezes/rhonchi/rales Abd: Soft, NT/ND Extrem: WWP, no LE edema Skin: Warm, Intact Neuro: AAOX3, spontaneous movement of all extremities Psych: Appropriate mood & affect Lab Results 12/31 21:08 Protime: 21.1 H PT International Ratio: 1.8 12/31 11:28 WBC: 6.7 Hgb: 11.9 L Hct: 34.5 L Platelet: 133 L Neutrophil %: 75.8 H Protime: 18.7 H PT International Ratio: 1.6 Glucose Level: 141 H Sodium Level: 138 Potassium Level: 4.0 BUN: 41.0 H Creatinine Lvl (s): 1.40 Imaging Results and Diagnostics XR Chest 1 View Result Date: December 31, 2024 Verified By: GENNA SANCHEZ DO CLINICAL STATEMENT: IMPRESSION: []Cardiomegaly. Chronic reticular pulmonary markings slightly increasedcompared to July 25, 2021 exam. Cardiomegaly and mild hilar vascularprominence. Assessment/Plan Chronic atrial fibrillation on sotalol and warfarin, presented with RVR CAD s/p CABG and PCI to the RCA 2018 History of severe aortic stenosis s/p TAVR Mitral regurgitation s/p MV repair Heart failure with reduced ejection fraction (LVEF 30%) s/p STOCK CHECKERER-D, well compensated Plan: The patient symptoms at home are most likely due to rapid atrial fibrillation. His STOCK CHECKERER-D was interrogated in the emergency department multiple episodes of A- fib/flutter were recorded throughout the day today. The patient remains hemodynamically stable at the time of admission. At this point, we will continue his home sotalol 160 mg dose and add low-dose metoprolol 25 mg in addition to this. Starting tomorrow, will hold the sotalol and consider transitioning to amiodarone for better rate control. Continue home HF GDMT and diuretic. Patient does not appear to be significantly decompensated fromHF perspective. Monitor urine output and renal function daily. Problem List/Past Medical History Ongoing Acid reflux Acute kidney injury AF (atrial fibrillation) Aortic stenosis Asthma ASTHMA Atrial fibrillation BIVENTRICULAR ICD (IMPLANTABLE CARDIOVERTER-DEFIBRILLATOR) IN PLACE CAD - Coronary artery disease CAD IN [place] ART[place] Cardiomyopathy CHRONIC SYSTOLIC CHF (CONGESTIVE HEART FAILURE) CURRENT TOBACCO USE Diabetes mellitus type 2 Diarrhea Dyspnea on exertion Glasses Gout H/O valvular heart disease Hard of hearing Headache Hearing aid High blood pressure History of coronary artery bypass graft History of mitral valve replacement HOCM (HYPERTROPHIC OBSTRUCTIVE CARDIOMYOPATHY) Hypercholesterolemia Hypertension Hypokalemia Hyponatremia INCREASED BMI (Renamed from OVERWEIGHT) Irritable bowel syndrome Mitral regurgitation Peripheral artery disease PERMANENT ATRIAL FIBRILLATION Preop cardiovascular exam PULMONARY FIBROSIS SEVERE AORTIC STENOSIS Short of breath on exertion STATUS POST DEVICE CLOSURE OF ASD VALVULAR HEART DISEASE VT (Renamed from PAROXYSMAL VENTRICULAR TACHYCARDIA) VT (ventricular tachycardia) Wears dentures Historical Heart attack Hx of ventricular tachycardia Hypotension Panic attack Procedure/Surgical History Echocardiogram: 11/18/24 Echocardiogram: 12/16/22 Cardiac catheterization: 10/24/21 Cardiac catheterization: 07/29/21 Transcatheter mitral valve implantation/replacement (TMVI) with prosthetic valve; percutaneous approach, including transseptal puncture, when performed: 04/13/19 PTCA - Percutaneous transluminal coronary angioplasty: 02/12/18 Cardiac catheterization: 09/2015 Mitral valve prosthesis: 05/17/13 Insertion of intra-aortic balloon pump: 05/17/13 Implantation of automatic cardiac defibrillator: 2012 Balloon angioplasty of coronary artery: 2008 CABG - Coronary artery bypass graft: 2006 Appendectomy: 1993 Medications Home Medications (15) Active aspirin 81 mg oral delayed release tablet 81 mg = 1 tab(s), Oral, Daily bumetanide 1 mg oral tablet 1 mg = 1 tab(s), Oral, qDay oral tablet 1 tab(s), PRN, Oral, q6h Entresto 24 mg-26 mg oral tablet 0.5 tab(s), Oral, BID Lipitor 40 mg oral tablet 40 mg = 1 tab(s), Oral, qHS montelukast 10 mg oral tablet 10 mg = 1 tab(s), Oral, qDay Nitrostat 0.4 mg sublingual tablet 0.4 mg = 1 tab(s), PRN, Sublingual, q5min pantoprazole 20 mg oral enteric coated tablet 20 mg = 1 tab(s), Oral, qDay sotalol 80 mg oral tablet 160 mg = 2 tab(s), Oral, BID spironolactone 25 mg oral tablet 25 mg = 1 tab(s), Oral, qDay Tylenol 325 mg oral tablet 650 mg = 2 tab(s), PRN, Oral, q4h Ventolin HFA MDI (90 mcg/inh) inhalation aerosol 2 puff(s), PRN, Inhalation, QID warfarin 5 mg oral tablet 5 mg = 1 tab(s), Oral, Thursday & Thursday warfarin 5 mg oral tablet 2.5 mg = 0.5 tab(s), Oral, Sun//Thu//Sat Wixela Inhub 100 mcg-50 mcg inhalation powder 1 puff(s), Inhalation, BID Allergies NKA Social History Smoking Status - 04/09/2018 Former smoker Alcohol - Denies Alcohol Use, 03/09/2019 Use: Never., 07/25/2021 Use: Never., 12/24/2018 Employment/School Status: Retired., 10/07/2021 Sexual Sexually active: No., 12/24/2018 Substance Abuse - Denies Substance Abuse, 12/13/2017 Use: Never., 07/25/2021 Use: Never., 12/24/2018 Tobacco - Low Risk, 03/09/2019 Nicotine Use: 47 years ago., 03/10/2024 Nicotine Use: Former smoker, quit more than 30 days ago. Type: Oral (Snuff, Chew)., 07/25/2021 Tobacco Use: rubs snuff., 03/09/2019 Family History Cancer: Mother. Diabetes mellitus: Mother. HTN - Hypertension: Mother, Father and Sister. Health Status Family Member(s) Immunizations pneumococcal 23-valent vaccine(Pneumovax: 0.5 unknown unit (07/19/21) pneumococcal 23-valent vaccine(Pneumovax: 0.5 mL (06/10/13) SARS-CoV-2 mRNA (tozinameran) vaccine: 30 unknown unit (11/01/20) SARS-CoV-2 mRNA (tozinameran) vaccine: 30 unknown unit (10/11/20) tetanus/diphth/pertuss (Tdap) adult/adol: 0.5 mL (03/24/16) Code Status Code Status - Ordered -- 12/31/24 16:42:00 EDT, Full Code, Constant Order Digitally Signed by GINGER ALEXANDRE DO on 01/01/2025 01:18 AM [id number] Progress note Respiratory Therapy Evaluation Entered On: 12/31/2024 21:12 EDT Performed On: 12/31/2024 21:12 EDT by Violette Tijerina RRT Respiratory Therapy Evaluation Pulmonary Status : Chronic pulmonary disease Surgical Status : No surgery Chest X-Ray : Clear/none available/older than 3 days Respiratory Pattern (RT) : RR 10-20 BPM, Regular pattern Breath Sounds (RT) : Clear to auscultation Cough (RT) : Strong, non-productive Level of Activity : Ambulatory Mental Status : Alert, oriented and cooperative Respiratory Therapy Evaluation Score : 3 RT Evaluation Steps : Chart review completed, Assessment completed: RR, HR, Auscultation, Cough, Patient Interview completed Respiratory Evaluation Triage Score : (0-5) Freq: Q4RT prn RT Assessment [Frequency/Schedule] : Therapeutic interchange, discontinue future evaluations Violette Tijerina VASCULAR NURSE - 12/31/2024 21:12 EDT Digitally Signed by Violette Tijerina VASCULAR NURSE on 12/31/2024 09:12 PM [id number] Evaluation + Plan noteExtracted from: Title:History and Physical Author:NAIN ALEXANDRE DO Date:12/31/24 Chronic atrial fibrillation on sotalol and warfarin, presented with RVR CAD s/p CABG and PCI to the RCA 2018 History of severe aortic stenosis s/p TAVR Mitral regurgitation s/p MV repair Heart failure with reduced ejection fraction (LVEF 30%) s/p STOCK CHECKERER-D, well compensated Plan: The patient symptoms at home are most likely due to rapid atrial fibrillation. His STOCK CHECKERER-D was interrogated in the emergency department multiple episodes of A- fib/flutter were recorded throughout the day today. The patient remains hemodynamically stable at the time of admission. At this point, we will continue his home sotalol 160 mg dose and add low-dose metoprolol 25 mg in addition to this. Starting tomorrow, will hold the sotalol and consider transitioning to amiodarone for better rate control. Continue home HF GDMT and diuretic. Patient does not appear to be significantly decompensated from HF perspective. Monitor urine output and renal function daily. Addendum by CARLOS RIDLEY MD on January 01, 2025 06:41:23 EDT seen 12/31/2024 Patient was independently seen and examined by me. Below discussed and I agree with fellow note except where indicated. See note for details above. I personally reviewed the patient s recent medications, orders, vitals, labs, and X ray reports/images. Also I personally reviewed recent cardiac telemetry and other pertinent available cardiac studies and images including the latest EKG images , echo images Medications were reviewed and changes were made in EMR Patient is risk of deterioration, suggest close monitoring Future Appointments Appointment Date:06/06/2025 02:00:00 PM Scheduled Provider:JAVIER GANT Location:[facility] Appointment Type:CV OV [facility] 05-24-2025 Note* Exam Date Time Procedure Performing Provider Status 12/31/24 11:31 AM XR Chest 1 View GENNA SANCHEZ DO; Auth (Verified) [id number] ORIGINAL EXAMINATION: Exam Title:ONE XRAY VIEW OF THE CHEST Completed Time: 12/31/2024 11:31 am Procedure Description:CHEST ONE VIEW AP/PA COMPARISON: July 25, 2021 chest x-ray HISTORY: ORDERING SYSTEM PROVIDED HISTORY: Reason for Exam: palpitations FINDINGS: [id number] cardiomegaly. CABG. Pacing leads appear intact. Left-sided pacer body obscures portion left lung. Mild scattered reticular pulmonary markings. Mild hilar vascular prominence. Mild right base atelectasis. No gross pneumothorax or effusion. IMPRESSION: [] Cardiomegaly. Chronic reticular pulmonary markings slightly increased compared to July 25, 2021 exam. Cardiomegaly and mild hilar vascular prominence. Interpreted by: Genna Sanchez DO Preliminary Report By: Genna Sanchez DO Electronically signed By Genna Sanchez DO Dictated Date: 12/31/2024 11:34:06 AM Prelim Date: 12/31/2024 11:35:34 AM Sign Date: 12/31/2024 11:35:34 AM Ordering Provider: MEGHA HAHN [id number] Note* Exam Date Time Procedure Performing Provider Status 12/31/24 10:50 AM EKG (ED) - CV ROXANE DIXON MD; Au (Verified) ECG Final Report AFIB/FLUTTER AND VENTRICULAR-PACED RHYTHM This EKG was read and contributed directly to the care of the patient Electronic Signature: ROXANE DIXON MD 12/31/2024 15:36:57 [id number] Telephone encounter Note* Telephone Encounter - Valerio Acharya [facility] - 12/26/2024 3:34 PM EDT Spoke to patient - advised to have INR checked within two weeks of tomorrow's procedure. [facility]05-19-2025 Miscellaneous Notes* Telephone Encounter - Valerio Acharya RPh - 12/26/2024 3:34 PM EDT Spoke to patient - advised to have INR checked within two weeks of tomorrow's procedure. * Telephone Encounter - Kelechi (XZERESKaarn Easton - 12/26/2024 9:08 AM EDT Patient called to let us know he will not be able to test tomorrow as he was advised by MD to hold warfarin yesterday and today for a procedure tomorrow. 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 Patient is asking when next INR should be done and can be reached at [phone] and stated we mayleave a detailed message if no answer. Karan Lorenz (XZERES) documented in this encounterG[facility]05-[facility]-2025 Telephone encounter Note * Telephone Encounter - Kelechi (XZERESKaran Easton - 12/26/2024 9:08 AM EDT Patient called to let us know he will not be able to test tomorrow as he was advised by MD to hold warfarin yesterday and today for a procedure tomorrow. 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 Patient is asking when next INR should be done and can be reached at [phone] and stated we mayleave a detailed message if no answer. Karan Lorenz (XZERES) [facility]05-06-2025 Telephone encounter Note* Telephone Encounter - Jonathan Hawkins RPh - 12/13/2024 7:50 AM EDT [facility] Anticoagulation Episode Summary Anticoagulation Care Providers Provider Role Specialty Phone number MataGeorge gerber MD Responsible Internal Medicine [phone] Bessy Valverde is a 78 year old year old male patient being evaluated today for a Telemanagement visit. Patient is currently on the following anticoagulant(s) Warfarin. Labs Lab Results Component Value Date INR 3.2 (A) 12/13/2024 INR 2.8 11/29/2024 INR 2.9 11/15/2024 Lab Results Component Value Date HB 11.3 (L) 09/06/2024 HB 12.2 (L) 01/25/2024 HB 12.0 (L) 01/23/2023 Lab Results Component Value Date HCT 33.9 (L) 09/06/2024 HCT 37.8 (L) 01/25/2024 HCT 37.4 (L) 01/23/2023 Lab Results Component Value Date PLT 141 (L) 09/06/2024 PLT 125 (L) 01/25/2024 PLT 128 (L) 01/23/2023 Lab Results Component Value Date CREAT 1.66 (H) 09/06/2024 CREAT 1.30 (H) 01/25/2024 CREAT 1.35 (H) 07/29/2023 No components found for: TBILI3 Lab Results Component Value Date ALT 15 09/06/2024 ALT 20 01/25/2024 ALT 19 07/29/2023 Lab Results Component Value Date AST 21 09/06/2024 AST 24 01/25/2024 AST 27 07/29/2023 Estimated Creatinine Clearance: 34.5 mL/min (A) (based on SCr of 1.66 mg/dL (H)). ALLERGIES No Known Allergies Indication for Warfarin: Anticoagulation Episode Summary Current INR goal: 2.0-3.0 Assessment: INR result of 3.2 is SUPRAtherapeutic due to: Decreased vitamin k intake Plan: Current Warfarin Dosing As of 12/13/2024 Full warfarin instructions: 12/13: 1.25 mg; Otherwise 5 mg every Mon, Fri; 2.5 mg all other days Called and spoke to patient/caregiver Advised patient to decrease dose for 1 day only then resume weekly regimen Next home INR check scheduled on 12/27/2024 Patient's caregiver verbalizes understanding of the plan. Patient advised to call the PAC with any medication changes, bleeding/bruising concerns, recent changes in vitamin k consumption, if any procedures are coming up, if they have been ill or in the hospital, and if they have missed any doses of warfarin. Jonathan Hawkins RPh Clinical Pharmacist, Pharmacy Anticoagulation Clinic Pharm[facility] Pager: [phone]. [facility]05-06-2025 Miscellaneous Notes* Telephone Encounter - Jonathan Hawkins RPh - 12/13/2024 7:50 AM EDT [facility] Anticoagulation Episode Summary Anticoagulation Care Providers Provider Role Specialty Phone number George Mata MD Responsible Internal Medicine [phone] Bessy Valverde is a 78 year old year old male patient being evaluated today for a Telemanagement visit. Patient is currently on the following anticoagulant(s) Warfarin. Labs Lab Results Component Value Date INR 3.2 (A) 12/13/2024 INR 2.8 11/29/2024 INR 2.9 11/15/2024 Lab Results Component Value Date HB 11.3 (L) 09/06/2024 HB 12.2 (L) 01/25/2024 HB 12.0 (L) 01/23/2023 Lab Results Component Value Date HCT 33.9 (L) 09/06/2024 HCT 37.8 (L) 01/25/2024 HCT 37.4 (L) 01/23/2023 Lab Results Component Value Date PLT 141 (L) 09/06/2024 PLT 125 (L) 01/25/2024 PLT 128 (L) 01/23/2023 Lab Results Component Value Date CREAT 1.66 (H) 09/06/2024 CREAT 1.30 (H) 01/25/2024 CREAT 1.35 (H) 07/29/2023 No components found for: TBILI3 Lab Results Component Value Date ALT 15 09/06/2024 ALT 20 01/25/2024 ALT 19 07/29/2023 Lab Results Component Value Date AST 21 09/06/2024 AST 24 01/25/2024 AST 27 07/29/2023 Estimated Creatinine Clearance: 34.5 mL/min (A) (based on SCr of 1.66 mg/dL (H)). ALLERGIES No Known Allergies Indication for Warfarin: Anticoagulation Episode Summary Current INR goal: 2.0-3.0 Assessment: INR result of 3.2 is SUPRAtherapeutic due to: Decreased vitamin k intake Plan: Current Warfarin Dosing As of 12/13/2024 Full warfarin instructions: 12/13: 1.25 mg; Otherwise 5 mg every Mon, Fri; 2.5 mg all other days Called and spoke to patient/caregiver Advised patient to decrease dose for 1 day only then resume weekly regimen Next home INR check scheduled on 12/27/2024 Patient's caregiver verbalizes understanding of the plan. Patient advised to call the PAC with any medication changes, bleeding/bruising concerns, recent changes in vitamin k consumption, if any procedures are coming up, if they have been ill or in the hospital, and if they have missed any doses of warfarin. Jonathan Hawkins RPh Clinical Pharmacist, Pharmacy Anticoagulation Clinic Pharmacy An[facility] Pager: [phone]. documented in this encounterGlen[facility] Hospital04-22-2025 Telephone encounter Note * Telephone Encounter - Jonathan Hawkins RPh - 11/29/2024 8:53 AM EDT [facility] Anticoagulation Episode Summary Anticoagulation Care Providers Provider Role Specialty Phone number George Mata MD [facility] Internal Medicine [phone] Bessy Valverde is a 78 year old year old male patient being evaluated today for a Telemanagement visit. Patient is currently on the following anticoagulant(s) Warfarin. Labs PT INR (no units) Date Value 11/19/2021 2.7 biotel 11/05/2021 2.5 10/22/2021 2.8 biotel INR Home CoaguChek (no units) Date Value 11/29/2024 2.8 11/15/2024 2.9 11/01/2024 3.2 Hemoglobin (g/dL) Date Value 09/06/2024 11.3 09/23/2021 13.8 Hematocrit (%) Date Value 09/06/2024 33.9 09/23/2021 44.4 Platelet Count (k/uL) Date Value 09/06/2024 141 09/23/2021 160 Creatinine (mg/dL) Date Value 09/06/2024 1.66 01/25/2024 1.30 07/29/2023 1.35 09/23/2021 1.18 09/02/2021 1.31 08/05/2021 1.68 Bilirubin, Total (mg/dL) Date Value 09/06/2024 1.3 08/22/2021 1.2 ALT (U/L) Date Value 09/06/2024 15 08/22/2021 36 AST (U/L) Date Value 09/06/2024 21 08/22/2021 45 Estimated Creatinine Clearance: 34.5 mL/min (A) (based on SCr of 1.66 mg/dL (H)). ALLERGIES No Known Allergies Indication for Warfarin: Anticoagulation Episode Summary Current INR goal: 2.0-3.0 Assessment: INR result of 2.8 is therapeutic Plan: Current Warfarin Dosing As of 11/29/2024 Full warfarin instructions: 5 mg every Mon, Fri; 2.5 mg all other days Called and spoke to patient/caregiver Advised patient to continue current weekly dose as noted above Next home INR check scheduled on 12/13/2024 Patient verbalizes understanding of the plan. Patient advised to call the PAC with any medication changes, bleeding/bruising concerns, recent changes in vitamin k consumption, if any procedures are coming up, if they have been ill or in the hospital, and if they have missed any doses of warfarin. Jonathan Hawkins RPh Clinical Pharmacist, Pharmacy Anticoagulation Clinic Pharmacy Anticoagulation Clinic Pager: [phone]. [facility]04-22-2025 Miscellaneous Notes* Telephone Encounter - Jonathan Hawkins RPh - 11/29/2024 8:53 AM EDT [facility] Anticoagulation Episode Summary Anticoagulation Care Providers Provider Role Specialty Phone number George Mata MD [facility] Internal Medicine [phone] Bessy Valverde is a 78 year old year old male patient being evaluated today for a Telemanagement visit. Patient is currently on the following anticoagulant(s) Warfarin. Labs PT INR (no units) Date Value 11/19/2021 2.7 biotel 11/05/2021 2.5 10/22/2021 2.8 biotel INR Home CoaguChek (no units) Date Value 11/29/2024 2.8 11/15/2024 2.9 11/01/2024 3.2 Hemoglobin (g/dL) Date Value 09/06/2024 11.3 09/23/2021 13.8 Hematocrit (%) Date Value 09/06/2024 33.9 09/23/2021 44.4 Platelet Count (k/uL) Date Value 09/06/2024 141 09/23/2021 160 Creatinine (mg/dL) Date Value 09/06/2024 1.66 01/25/2024 1.30 07/29/2023 1.35 09/23/2021 1.18 09/02/2021 1.31 08/05/2021 1.68 Bilirubin, Total (mg/dL) Date Value 09/06/2024 1.3 08/22/2021 1.2 ALT (U/L) Date Value 09/06/2024 15 08/22/2021 36 AST (U/L) Date Value 09/06/2024 21 08/22/2021 45 Estimated Creatinine Clearance: 34.5 mL/min (A) (based on SCr of 1.66 mg/dL (H)). ALLERGIES No Known Allergies Indication for Warfarin: Anticoagulation Episode Summary Current INR goal: 2.0-3.0 Assessment: INR result of 2.8 is therapeutic Plan: Current Warfarin Dosing As of 11/29/2024 Full warfarin instructions: 5 mg every Mon, Fri; 2.5 mg all other days Called and spoke to patient/caregiver Advised patient to continue current weekly dose as noted above Next home INR check scheduled on 12/13/2024 Patient verbalizes understanding of the plan. Patient advised to call the PAC with any medication changes, bleeding/bruising concerns, recent changes in vitamin k consumption, if any procedures are coming up, if they have been ill or in the hospital, and if they have missed any doses of warfarin. Jonathan Hawkins [facility] Clinical Pharmacist, Pharmacy Anticoagulation Clinic Pharmacy Anticoagulation Clinic Pager: [phone]. documented in this encounterGlenbeigh Hospital04-11-2025 Note* Exam Date Time Procedure Performing Provider Status 11/18/24 11:37 AM Echocardiogram, Adul t - CV VINCE PARKER MD; Auth (Verified) [id number] Telephone encounter Note* Telephone Encounter - Daphney Obando LPN - 11/17/2024 3:47 PM EDT Appt 02/01/2025. Daphney Obando LPN [facility]04-10-2025 Miscellaneous Notes* Telephone Encounter - Daphney Obando LPN - 11/17/2024 3:47 PM EDT Appt 02/01/2025. Daphney Obando LPN * Telephone Encounter - Reyna Thompson - 11/17/2024 3:26 PM EDT Patient has been identified by name and date of : Yes Last office visit in this department: 11/01/2024 RX INSTRUCTIONS: Patient aware RX escripted to mail away pharmacy. No need to notify patient. Patient phones requesting refills as follows: Requested Prescriptions Pending Prescriptions Disp Refills yjtcscrbn-imuutw-kfuwxmmn-scop () 16.2-0.1037 -0.0194 mg per tablet 240 tablet 0 Sig: Take 1 tablet by mouth every 6 hours as needed. Please review and advise. Reyna Dominguez documented in this encounterGlenbeigh Hospital04-10-2025 Telephone encounter Note * Telephone Encounter - Reyna Thompson - 11/17/2024 3:26 PM EDT Patient has been identified by name and date of : Yes Last office visit in this department: 11/01/2024 RX INSTRUCTIONS: Patient aware RX escripted to mail away pharmacy. No need to notify patient. Patient phones requesting refills as follows: Requested Prescriptions Pending Prescriptions Disp Refills eidomzrqw-ueblww-paecutsy-scop () 16.2-0.1037 -0.0194 mg per tablet 240 tablet 0 Sig: Take 1 tablet by mouth every 6 hours as needed. Please review and advise. Reyna Dominguez [facility]04-08-2025 Telephone encounter Note* Telephone Encounter - Elliott Gleason [facility] - 11/15/2024 8:54 AM EDT [facility] Anticoagulation Episode Summary Anticoagulation Care Providers Provider Role Specialty Phone number George Mata MD Responsible Internal Medicine [phone] Bessy Valverde is a 78 year old year old male patient being evaluated today for a Telemanagement visit. Patient is currently on the following anticoagulant(s) Warfarin. Labs PT INR (no units) Date Value 11/19/2021 2.7 biotel 11/05/2021 2.5 10/22/2021 2.8 biotel INR Home CoaguChek (no units) Date Value 11/15/2024 2.9 11/01/2024 3.2 10/18/2024 3.5 Hemoglobin (g/dL) Date Value 09/06/2024 11.3 09/23/2021 13.8 Hematocrit (%) Date Value 09/06/2024 33.9 09/23/2021 44.4 Platelet Count (k/uL) Date Value 09/06/2024 141 09/23/2021 160 Creatinine (mg/dL) Date Value 09/06/2024 1.66 01/25/2024 1.30 07/29/2023 1.35 09/23/2021 1.18 09/02/2021 1.31 08/05/2021 1.68 Bilirubin, Total (mg/dL) Date Value 09/06/2024 1.3 08/22/2021 1.2 ALT (U/L) Date Value 09/06/2024 15 08/22/2021 36 AST (U/L) Date Value 09/06/2024 21 08/22/2021 45 Estimated Creatinine Clearance: 34.5 mL/min (A) (based on SCr of 1.66 mg/dL (H)). 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 Permanent atrial fibrillation (hcc) Anticoagulation Episode Summary Current INR goal: 2.0-3.0 Assessment: INR result of 2.9 is therapeutic Pt is no longer on pred taper. Plan: Current Warfarin Dosing As of 11/15/2024 Full warfarin instructions: 5 mg every Mon, Fri; 2.5 mg all other days Called and spoke to patient/caregiver Advised patient to continue current weekly dose as noted above Next home INR check scheduled on 11/29/2024 Patient verbalizes understanding of the plan. Patient denies need for refills. Patient advised to call the PAC with any medication changes, bleeding/bruising concerns, recent changes in vitamin k consumption, if any procedures are coming up, if they have been ill or in the hospital, and if they have missed any doses of warfarin. Elliott Gleason RPh Clinical Pharmacist, Pharmacy Anticoagulation Clinic Pharmacy Anticoagulation Clinic Pager: [phone]. [facility]04-08-2025 Miscellaneous Notes* Telephone Encounter - Elliott Gleason RPh - 11/15/2024 8:54 AM EDT [facility] Anticoagulation Episode Summary Anticoagulation Care Providers Provider Role Specialty Phone number George Mata MD [facility] Internal Medicine [phone] Bessy Valverde is a 78 year old year old male patient being evaluated today for a Telemanagement visit. Patient is currently on the following anticoagulant(s) Warfarin. Labs PT INR (no units) Date Value 11/19/2021 2.7 biotel 11/05/2021 2.5 10/22/2021 2.8 biotel INR Home CoaguChek (no units) Date Value 11/15/2024 2.9 11/01/2024 3.2 10/18/2024 3.5 Hemoglobin (g/dL) Date Value 09/06/2024 11.3 09/23/2021 13.8 Hematocrit (%) Date Value 09/06/2024 33.9 09/23/2021 44.4 Platelet Count (k/uL) Date Value 09/06/2024 141 09/23/2021 160 Creatinine (mg/dL) Date Value 09/06/2024 1.66 01/25/2024 1.30 07/29/2023 1.35 09/23/2021 1.18 09/02/2021 1.31 08/05/2021 1.68 Bilirubin, Total (mg/dL) Date Value 09/06/2024 1.3 08/22/2021 1.2 ALT (U/L) Date Value 09/06/2024 15 08/22/2021 36 AST (U/L) Date Value 09/06/2024 21 08/22/2021 45 Estimated Creatinine Clearance: 34.5 mL/min (A) (based on SCr of 1.66 mg/dL (H)). 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 Permanent atrial fibrillation (hcc) Anticoagulation Episode Summary Current INR goal: 2.0-3.0 Assessment: INR result of 2.9 is therapeutic Pt is no longer on pred taper. Plan: Current Warfarin Dosing As of 11/15/2024 Full warfarin instructions: 5 mg every Mon, Fri; 2.5 mg all other days Called and spoke to patient/caregiver Advised patient to continue current weekly dose as noted above Next home INR check scheduled on 11/29/2024 Patient verbalizes understanding of the plan. Patient denies need for refills. Patient advised to call the PAC with any medication changes, bleeding/bruising concerns, recent changes in vitamin k consumption, if any procedures are coming up, if they have been ill or in the hospital, and if they have missed any doses of warfarin. Elliott Gleason [facility] Clinical Pharmacist, Pharmacy Anticoagulation Clinic Pharmacy Anticoagulation Clinic Pager: [phone]. documented in this encounterGlen[facility]03-[facility]25 NoteHNO ID: [id number] Author: GEORGE MATA MD Service: ? Author Type: Physician Type: Progress Notes Filed: 11/01/2024 09:34 Note Text: This note was created using [employer]riter. Subjective Bessy Valverde is a 78 year old male. He recovered from Covid after several weeks. He tolerated Paxlovid. He saw Dr. Mackenzie Iverson for worsening kidney disease, and his renal function was being monitored. He continued with chronic back pain with radiation to his leg. This was worse with prolonged sitting. Pain management injections did not help and surgery was not recommended. Review of Systems Constitutional: Positive for fatigue. Negative for chills and fever. HENT: Negative for congestion and sore throat. Respiratory: Negative for cough, shortness of breath and wheezing. Cardiovascular: Negative for chest pain, palpitations and leg swelling. Musculoskeletal: Positive for back pain. ACTIVE PROBLEM LIST Coronary Atherosclerosis Pure Hypercholesterolemia Gastroesophageal Reflux Disease Without Esophagitis Essential Hypertension Irritable Bowel Syndrome Asthma, Moderate Persistent, Well-Controlled Interstitial Lung Disease (Hcc) Status Post Mitral Valve Replacement Status Post Implantation of Automatic Cardioverter/Defibrillator (Aicd) Ventricular Tachycardia (Hcc) Permanent Atrial Fibrillation (Hcc) Controlled Type 2 Diabetes Mellitus With Stage 3 Chronic Kidney Disease, Without Long-Term Current Use of Insulin (Hcc) Aortic Valve Stenosis Chronic Systolic Heart Failure (Hcc) 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 Vaping Use Vaping status: Never Used Substance Use Topics Alcohol use: No Drug use: No Current Outpatient Medications Medication Sig atorvastatin (LIPITOR) 40 mg tablet Take 1 tablet by mouth once daily. montelukast (SINGULAIR) 10 mg tablet Take 1 tablet by mouth daily at bedtime. For asthma and allergies. fluticasone-salmeterol (ADVAIR DISKUS) 100-50 mcg/dose inhaler Inhale 1 Puff as instructed two times a day. Rinse mouth out after use with water. pantoprazole DR (PROTONIX) 20 mg tablet Take 1 tablet by mouth daily before breakfast. Take on empty stomach, 1/2 hr before meal. ukgkptaeh-fsmwsp-tquzhnvv-scop () 16.2-0.1037 -0.0194 mg per tablet Take 1 tablet by mouth every 6 hours as needed. warfarin (COUMADIN) 5 mg tablet 5 mg every Mon AND Fr ; 2.5 mg all other days bumetanide (BUMEX) 1 mg tablet Take 1 tablet by mouth once daily. Or as directed for weight gain, fluid retention. albuterol HFA (VENTOLIN HFA) 90 mcg/actuation inhaler USE 2 INHALATIONS 4 TIMES A DAY IF NEEDED nitroglycerin sublingual (NITROSTAT) 0.4 mg SL tablet Dissolve 1 tablet under the tongue as needed. DISSOLVE ON TONGUE FOR CHEST PAIN. IF NO PAIN RELIEF, CALL 911 ENTRESTO 24-26 mg tablet Take 1 tablet by mouth twice daily. sotalol (BETAPACE) 80 mg tablet Take 2 tablets by mouth twice daily. spironolactone (ALDACTONE) 25 mg tablet Take 25 mg by mouth once daily. LOW-DOSE ASPIRIN ORAL Take 1 tablet by mouth once daily. blood sugar diagnostic (BLOOD GLUCOSE TEST) test strip Test blood sugar(s) one times daily. Dx: Type 2 DM - Controlled E11.9 Insulin: No Blood-Glucose Meter monitoring kit Glucose Meter of Choice - Kit - Dx: Type 2 DM - Controlled E11.9 No current facility-administered medications for this visit. Objective BP 106/60 (BP Site: Left Arm, BP Position: Sitting, BP Cuff Size: Large Adult) Pulse 68 Temp 36.7 ?C (98 ?F) (Temporal) Resp 20 Wt 79.2 kg (174 lb 9.7 oz) BMI 26.86 kg/m? Physical Exam Constitutional: General: He is not in acute distress. HENT: Nose: No congestion or rhinorrhea. Cardiovascular: Rate and Rhythm: Normal rate. Rhythm irregular. Heart sounds: S1 normal and S2 normal. Murmur heard. Systolic murmur is present with a grade of 1/6. Pulmonary: Breath sounds: Examination of the right-lower field reveals rales. Examination of the left-lower field reveals rales. Rales present. No decreased breath sounds or wheezing. Abdominal: Tenderness: There is no abdominal tenderness. Musculoskeletal: Right lower leg: No edema. Left lower leg: No edema. Neurological: Mental Status: He is alert. Gait: Gait normal. Assessment and Plan 1. Lumbosacral radiculopathy - ICD9: 724.4, ICD10: M54.17 (primary diagnosis) Chronic low back pain Shared Medical Decision Making was done: Medication: tramadol. Benefits: Medica (more content not included)...[facility]03-25-2025 History of Present illness Narrative* George Mata MD - 11/01/2024 9:00 AM EDT This note was created using [employer]. Subjective Bessy Valverde is a 78 year old male. He recovered from Covid after several weeks. He tolerated Paxlovid. He saw Dr. Mackenzie Iverson for worsening kidney disease, and his renal function was being monitored. He continued with chronic back pain with radiation to his leg. This was worse with prolonged sitting. Pain management injections didnot help and surgery was not recommended. Review of Systems Constitutional: Positive for fatigue. Negative for chills and fever. HENT: Negative for congestion and sore throat. Respiratory: Negative for cough, shortness of breath and wheezing. Cardiovascular: Negative for chest pain, palpitations and leg swelling. Musculoskeletal: Positive for back pain. ACTIVE PROBLEM LIST Coronary Atherosclerosis Pure Hypercholesterolemia Gastroesophageal Reflux Disease Without Esophagitis Essential Hypertension Irritable Bowel Syndrome Asthma, Moderate Persistent, Well-Controlled Interstitial Lung Disease (Hcc) Status Post Mitral Valve Replacement Status Post Implantation of Automatic Cardioverter/Defibrillator (Aicd) Ventricular Tachycardia (Hcc) Permanent Atrial Fibrillation (Hcc) Controlled Type 2 Diabetes Mellitus With Stage 3 Chronic Kidney Disease, Without Long-Term Current Use of Insulin (Hcc) Aortic Valve Stenosis Chronic Systolic Heart Failure (Hcc) 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 Vaping Use Vaping status: Never Used Substance Use Topics Alcohol use: No Drug use: No Current Outpatient Medications Medication Sig atorvastatin (LIPITOR) 40 mg tablet Take 1 tablet by mouth once daily. montelukast (SINGULAIR) 10 mg tablet Take 1 tablet by mouth daily at bedtime. For asthma and allergies. fluticasone-salmeterol (ADVAIR DISKUS) 100-50 mcg/dose inhaler Inhale 1 Puff as instructed two times a day. Rinse mouth out after use with water. pantoprazole DR (PROTONIX) 20 mg tablet Take 1 tablet by mouth daily before breakfast. Take on empty stomach, 1/2 hr before meal. cunlynjuz-vppezk-xmsoenog-scop () 16.2-0.1037 -0.0194 mg per tablet Take 1 tablet by mouth every 6 hours as needed. warfarin (COUMADIN) 5 mg tablet 5 mg every Mon & Fr ; 2.5 mg all other days bumetanide (BUMEX) 1 mg tablet Take 1 tablet by mouth once daily. Or as directed for weight gain, fluid retention. albuterol HFA (VENTOLIN HFA) 90 mcg/actuation inhaler USE 2 INHALATIONS 4 TIMES A DAY IF NEEDED nitroglycerin sublingual (NITROSTAT) 0.4 mg SL tablet Dissolve 1 tablet under the tongue as needed.DISSOLVE ON TONGUE FOR CHEST PAIN. IF NO PAIN RELIEF, CALL 911 ENTRESTO 24-26 mg tablet Take 1 tablet by mouth twice daily. sotalol (BETAPACE) 80 mg tablet Take 2 tablets by mouth twice daily. spironolactone (ALDACTONE) 25 mg tablet Take 25 mg by mouth once daily. LOW-DOSE ASPIRIN ORAL Take 1 tablet by mouth once daily. blood sugar diagnostic (BLOOD GLUCOSE TEST) test strip Test blood sugar(s) one times daily. Dx: Type 2 DM - Controlled E11.9 Insulin: No Blood-Glucose Meter monitoring kit Glucose Meter of Choice - Kit - Dx: Type 2 DM - Controlled E11.9 No current facility-administered medications for this visit. Objective BP 106/60 (BP Site: Left Arm, BP Position: Sitting, BP Cuff Size: Large Adult) Pulse 68 Temp 36.7 C (98 F) (Temporal) Resp 20 Wt 79.2 kg (174 lb 9.7 oz) BMI 26.86 kg/m Physical Exam Constitutional: General: He is not in acute distress. HENT: Nose: No congestion or rhinorrhea. Cardiovascular: Rate and Rhythm: Normal rate. Rhythm irregular. Heart sounds: S1 normal and S2 normal. Murmur heard. Systolic murmur is present with a grade of 1/6. Pulmonary: Breath sounds: Examination of the right-lower field reveals rales. Examination of the left-lower field reveals rales. Rales present. No decreased breath sounds or wheezing. Abdominal: Tenderness: There is no abdominal tenderness. Musculoskeletal: Right lower leg: No edema. Left lower leg: No edema. Neurological: Mental Status: He is alert. Gait: Gait normal. Assessment and Plan 1. Lumbosacral radiculopathy - ICD9: 724.4, ICD10: M54.17 (primary diagnosis) Chronic low back pain Shared Medical Decision Making was done: Medication: tramadol. Benefits: Medication may help pain in the short term and not in the detention. Risks: Possible side effects were discussed including sedation, confusion. Possible interactions: none if taken infrequently. Warnings: addiction, abuse. Use sparingly. - TRAMADOL 50 MG TABLET. Take one(1) tablet two(2) times daily as needed. 2. Encounter for immunization - ICD9: V03.89, ICD10: Z23 - P[employer] COVID-19 VACCINE AGE 12+ YR ([facility] [place]) Postponed. 3. Asthma, moderate persistent, well-controlled - ICD9: 493.90, ICD10: J45.40 - Moderate persistent asthma stable - ALBUTEROL SULFATE HFA 90 MCG/ACTUATION AEROSOL INHALER 4. Atherosclerosis of [place] coronary artery of [place] heart without angina pectoris - ICD9: 414.01, ICD10: I25.10 - Stable. - NITROGLYCERIN 0.4 MG SUBLINGUAL TABLET 5. Controlled type 2 diabetes mellitus with stage 3 chronic kidney disease, without long-term current use of insulin (HCC) - ICD9: 250.40, 585.3, ICD10: E11.22, N18.30 - Controlled - Continue current medications - eGFR: 42 Worsening - Counseled on avoiding NSAIDs, adequate hydration - BASIC METABOLIC PANEL - HEMOGLOBIN A1C 6. Chronic systolic heart failure (HCC) - ICD9: 428.22, ICD10: I50.22 - Compensated - Continue current medications 7. Anemia due to stage 3b chronic kidney disease (HCC) (HCC) - ICD9: 285.21, 585.3, ICD10: N18.32, D63.1 - eGFR: 42 Worsening - COMPLETE BLOOD COUNT 8. Irritable bowel syndrome, unspecified type - ICD9: 564.1, ICD10: K58.9 - He will need printed refills next visit. 9. Gout of foot, unspecified cause, unspecified chronicity, unspecified laterality - ICD9: 274.00, ICD10: M10.9 Recheck. - URIC ACID Geogre Mata MD documented [facility] encounter[facility] Telephone encounter Note * Telephone Encounter - Lian Coulter, [facility] - 11/01/2024 8:33 AM EDT [facility]acy Anticoagulation Clinic Anticoagulation Episode Summary Anticoagulation Care Providers Provider Role Specialty Phone number George Mata MD [facility] Internal Medicine [phone] Bessy Valverde is a 78 year old year old male patient being evaluated today for a Telemanagement visit. Patient is currently on the following anticoagulant(s) Warfarin. Labs PT INR (no units) Date Value 11/19/2021 2.7 biotel 11/05/2021 2.5 10/22/2021 2.8 biotel INR Home CoaguChek (no units) Date Value 11/01/2024 3.2 10/18/2024 3.5 10/04/2024 2.7 Hemoglobin (g/dL) Date Value 09/06/2024 11.3 09/23/2021 13.8 Hematocrit (%) Date Value 09/06/2024 33.9 09/23/2021 44.4 Platelet Count (k/uL) Date Value 09/06/2024 141 09/23/2021 160 Creatinine (mg/dL) Date Value 09/06/2024 1.66 01/25/2024 1.30 07/29/2023 1.35 09/23/2021 1.18 09/02/2021 1.31 08/05/2021 1.68 Bilirubin, Total (mg/dL) Date Value 09/06/2024 1.3 08/22/2021 1.2 ALT (U/L) Date Value 09/06/2024 15 08/22/2021 36 AST (U/L) Date Value 09/06/2024 21 08/22/2021 45 Estimated Creatinine Clearance: 37.4 mL/min (A) (based on SCr of 1.66 mg/dL (H)). 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 Permanent atrial fibrillation (hcc) Anticoagulation Episode Summary Current INR goal: 2.0-3.0 Assessment: INR result of 3.2 is SUPRAtherapeutic due to: unknown cause - did not speak to patient Plan: Current Warfarin Dosing As of 11/01/2024 Full warfarin instructions: 11/01: Hold; Otherwise 5 mg every Mon, Fri; 2.5 mg all other days Left voice message Advised patient to hold 1 dose then continue current regimen Next home INR check scheduled on 11/15/2024 Patient advised to call the PAC with any medication changes, bleeding/bruising concerns, recent changes in vitamin k consumption, if any procedures are coming up, if they have been ill or in the hospital, and if they have missed any doses of warfarin. Lian Coulter RPh Clinical Pharmacist, Pharmacy Anticoagulation Clinic Pharmacy Anticoagulation Clinic Pager: [phone]. [facility]03-25-2025 Miscellaneous Notes* Telephone Encounter - Lian Coulter RPh - 11/01/2024 8:33 AM EDT [facility] Anticoagulation [facility] Anticoagulation Episode Summary Anticoagulation Care Providers Provider Role Specialty Phone number George Mata MD [facility] Internal Medicine [phone] Bessy Valverde is a 78 year old year old male patient being evaluated today for a Telemanagement visit. Patient is currently on the following anticoagulant(s) Warfarin. Labs PT INR (no units) Date Value 11/19/2021 2.7 biotel 11/05/2021 2.5 10/22/2021 2.8 biotel INR Home CoaguChek (no units) Date Value 11/01/2024 3.2 10/18/2024 3.5 10/04/2024 2.7 Hemoglobin (g/dL) Date Value 09/06/2024 11.3 09/23/2021 13.8 Hematocrit (%) Date Value 09/06/2024 33.9 09/23/2021 44.4 Platelet Count (k/uL) Date Value 09/06/2024 141 09/23/2021 160 Creatinine (mg/dL) Date Value 09/06/2024 1.66 01/25/2024 1.30 07/29/2023 1.35 09/23/2021 1.18 09/02/2021 1.31 08/05/2021 1.68 Bilirubin, Total (mg/dL) Date Value 09/06/2024 1.3 08/22/2021 1.2 ALT (U/L) Date Value 09/06/2024 15 08/22/2021 36 AST (U/L) Date Value 09/06/2024 21 08/22/2021 45 Estimated Creatinine Clearance: 37.4 mL/min (A) (based on SCr of 1.66 mg/dL (H)). 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 Permanent atrial fibrillation (hcc) Anticoagulation Episode Summary Current INR goal: 2.0-3.0 Assessment: INR result of 3.2 is SUPRAtherapeutic due to: unknown cause - did not speak to patient Plan: Current Warfarin Dosing As of 11/01/2024 Full warfarin instructions: 11/01: Hold; Otherwise 5 mg every Mon, Fri; 2.5 mg all other days Left voice message Advised patient to hold 1 dose then continue current regimen Next home INR check scheduled on 11/15/2024 Patient advised to call the PAC with any medication changes, bleeding/bruising concerns, recent changes in vitamin k consumption, if any procedures are coming up, if they have been ill or in the hospital, and if they have missed any doses of warfarin. Lian Coulter [facility] Clinical Pharmacist, Pharmacy Anticoagulation Clinic Pharmacy Anticoagulation Clinic Pager: [phone]. documented in this encounterGlenbeigh Hospital03-[facility]-2025 Telephone encounter Note * Telephone Encounter - Jonathan Hawkins [facility] - 10/18/2024 7:58 AM EDT [facility] Anticoagulation Episode Summary Anticoagulation Care Providers Provider Role Specialty Phone number George Mata MD Responsible Internal Medicine [phone] Bessy Valverde is a 78 year old year old male patient being evaluated today for a Telemanagement visit. Patient is currently on the following anticoagulant(s) Warfarin. Labs PT INR (no units) Date Value 11/19/2021 2.7 biotel 11/05/2021 2.5 10/22/2021 2.8 biotel INR Home CoaguChek (no units) Date Value 10/18/2024 3.5 10/04/2024 2.7 09/20/2024 2.5 Hemoglobin (g/dL) Date Value 09/06/2024 11.3 09/23/2021 13.8 Hematocrit (%) Date Value 09/06/2024 33.9 09/23/2021 44.4 Platelet Count (k/uL) Date Value 09/06/2024 141 09/23/2021 160 Creatinine (mg/dL) Date Value 09/06/2024 1.66 01/25/2024 1.30 07/29/2023 1.35 09/23/2021 1.18 09/02/2021 1.31 08/05/2021 1.68 Bilirubin, Total (mg/dL) Date Value 09/06/2024 1.3 08/22/2021 1.2 ALT (U/L) Date Value 09/06/2024 15 08/22/2021 36 AST (U/L) Date Value 09/06/2024 21 08/22/2021 45 Estimated Creatinine Clearance: 37.4 mL/min (A) (based on SCr of 1.66 mg/dL (H)). ALLERGIES No Known Allergies Indication for Warfarin: Anticoagulation Episode Summary Current INR goal: 2.0-3.0 Assessment: INR result of 3.5 is SUPRAtherapeutic due to: Decreased vitamin k intake Plan: Current Warfarin Dosing As of 10/18/2024 Full warfarin instructions: 10/18: 1.25 mg; Otherwise 5 mg every Mon, Fri; 2.5 mg all other days Called and spoke to patient/caregiver Advised patient to decrease dose for 1 day only then resume weekly regimen Next home INR check scheduled on 11/01/2024 Patient verbalizes understanding of the plan. Patient advised to call the PAC with any medication changes, bleeding/bruising concerns, recent changes in vitamin k consumption, if any procedures are coming up, if they have been ill or in the hospital, and if they have missed any doses of warfarin. Jonathan Hawkins RPh Clinical Pharmacist, Pharmacy Anticoagulation Clinic Pharmacy Anticoagulation Clinic Pager: [phone]. [facility]03-11-2025 Miscellaneous Notes* Telephone Encounter - Jonathan Hawkins RPh - 10/18/2024 7:58 AM EDT [facility] Anticoagulation Episode Summary Anticoagulation Care Providers Provider Role Specialty Phone number George Mata MD [facility] Internal Medicine [phone] Bessy Valverde is a 78 year old year old male patient being evaluated today for a Telemanagement visit. Patient is currently on the following anticoagulant(s) Warfarin. Labs PT INR (no units) Date Value 11/19/2021 2.7 biotel 11/05/2021 2.5 10/22/2021 2.8 biotel INR Home CoaguChek (no units) Date Value 10/18/2024 3.5 10/04/2024 2.7 09/20/2024 2.5 Hemoglobin (g/dL) Date Value 09/06/2024 11.3 09/23/2021 13.8 Hematocrit (%) Date Value 09/06/2024 33.9 09/23/2021 44.4 Platelet Count (k/uL) Date Value 09/06/2024 141 09/23/2021 160 Creatinine (mg/dL) Date Value 09/06/2024 1.66 01/25/2024 1.30 07/29/2023 1.35 09/23/2021 1.18 09/02/2021 1.31 08/05/2021 1.68 Bilirubin, Total (mg/dL) Date Value 09/06/2024 1.3 08/22/2021 1.2 ALT (U/L) Date Value 09/06/2024 15 08/22/2021 36 AST (U/L) Date Value 09/06/2024 21 08/22/2021 45 Estimated Creatinine Clearance: 37.4 mL/min (A) (based on SCr of 1.66 mg/dL (H)). ALLERGIES No Known Allergies Indication for Warfarin: Anticoagulation Episode Summary Current INR goal: 2.0-3.0 Assessment: INR result of 3.5 is SUPRAtherapeutic due to: Decreased vitamin k intake Plan: Current Warfarin Dosing As of 10/18/2024 Full warfarin instructions: 10/18: 1.25 mg; Otherwise 5 mg every Mon, Fri; 2.5 mg all other days Called and spoke to patient/caregiver Advised patient to decrease dose for 1 day only then resume weekly regimen Next home INR check scheduled on 11/01/2024 Patient verbalizes understanding of the plan. Patient advised to call the PAC with any medication changes, bleeding/bruising concerns, recent changes in vitamin k consumption, if any procedures are coming up, if they have been ill or in the hospital, and if they have missed any doses of warfarin. Jonathan Hawkins RPh Clinical Pharmacist, Pharmacy Anticoagulation Clinic Pharmacy Anticoagulation Clinic Pager: [phone]. documented in this encounterGlenbeigh Hospital02-25-2025 Telephone encounter Note * Telephone Encounter - Jonathan Hawkins RPh - 10/04/2024 8:19 AM EST [facility] Anticoagulation Episode Summary Anticoagulation Care Providers Provider Role Specialty Phone number George Mata MD [facility] Internal Medicine [phone] Bessy Valverde is a 78 year old year old male patient being evaluated today for a Telemanagement visit. Patient is currently on the following anticoagulant(s) Warfarin. Labs PT INR (no units) Date Value 11/19/2021 2.7 biotel 11/05/2021 2.5 10/22/2021 2.8 biotel INR Home CoaguChek (no units) Date Value 10/04/2024 2.7 09/20/2024 2.5 09/06/2024 2.2 Hemoglobin (g/dL) Date Value 09/06/2024 11.3 09/23/2021 13.8 Hematocrit (%) Date Value 09/06/2024 33.9 09/23/2021 44.4 Platelet Count (k/uL) Date Value 09/06/2024 141 09/23/2021 160 Creatinine (mg/dL) Date Value 09/06/2024 1.66 01/25/2024 1.30 07/29/2023 1.35 09/23/2021 1.18 09/02/2021 1.31 08/05/2021 1.68 Bilirubin, Total (mg/dL) Date Value 09/06/2024 1.3 08/22/2021 1.2 ALT (U/L) Date Value 09/06/2024 15 08/22/2021 36 AST (U/L) Date Value 09/06/2024 21 08/22/2021 45 Estimated Creatinine Clearance: 37.4 mL/min (A) (based on SCr of 1.66 mg/dL (H)). ALLERGIES No Known Allergies Indication for Warfarin: Anticoagulation Episode Summary Current INR goal: 2.0-3.0 Assessment: INR result of 2.7 is therapeutic Plan: Current Warfarin Dosing As of 10/04/2024 Full warfarin instructions: 5 mg every Mon, Fri; 2.5 mg all other days Called and spoke to patient/caregiver Advised patient to continue current weekly dose as noted above Next home INR check scheduled on 10/18/2024 Patient verbalizes understanding of the plan. Patient advised to call the PAC with any medication changes, bleeding/bruising concerns, recent changes in vitamin k consumption, if any procedures are coming up, if they have been ill or in the hospital, and if they have missed any doses of warfarin. Jonathan Hawkins [facility] Clinical Pharmacist, Pharmacy Anticoagulation Clinic Pharmacy Anticoagulation Clinic Pager: [phone]. [facility]02-25-2025 Miscellaneous Notes* Telephone Encounter - Jonathan Hawkins RPh - 10/04/2024 8:19 AM EST [facility] Anticoagulation Episode Summary Anticoagulation Care Providers Provider Role Specialty Phone number George Mata MD [facility] Internal Medicine [phone] Bessy Valverde is a 78 year old year old male patient being evaluated today for a Telemanagement visit. Patient is currently on the following anticoagulant(s) Warfarin. Labs PT INR (no units) Date Value 11/19/2021 2.7 biotel 11/05/2021 2.5 10/22/2021 2.8 biotel INR Home CoaguChek (no units) Date Value 10/04/2024 2.7 09/20/2024 2.5 09/06/2024 2.2 Hemoglobin (g/dL) Date Value 09/06/2024 11.3 09/23/2021 13.8 Hematocrit (%) Date Value 09/06/2024 33.9 09/23/2021 44.4 Platelet Count (k/uL) Date Value 09/06/2024 141 09/23/2021 160 Creatinine (mg/dL) Date Value 09/06/2024 1.66 01/25/2024 1.30 07/29/2023 1.35 09/23/2021 1.18 09/02/2021 1.31 08/05/2021 1.68 Bilirubin, Total (mg/dL) Date Value 09/06/2024 1.3 08/22/2021 1.2 ALT (U/L) Date Value 09/06/2024 15 08/22/2021 36 AST (U/L) Date Value 09/06/2024 21 08/22/2021 45 Estimated Creatinine Clearance: 37.4 mL/min (A) (based on SCr of 1.66 mg/dL (H)). ALLERGIES No Known Allergies Indication for Warfarin: Anticoagulation Episode Summary Current INR goal: 2.0-3.0 Assessment: INR result of 2.7 is therapeutic Plan: Current Warfarin Dosing As of 10/04/2024 Full warfarin instructions: 5 mg every Mon, Fri; 2.5 mg all other days Called and spoke to patient/caregiver Advised patient to continue current weekly dose as noted above Next home INR check scheduled on 10/18/2024 Patient verbalizes understanding of the plan. Patient advised to call the PAC with any medication changes, bleeding/bruising concerns, recent changes in vitamin k consumption, if any procedures are coming up, if they have been ill or in the hospital, and if they have missed any doses of warfarin. Jonathan Hawkins RPh Clinical Pharmacist, Pharmacy Anticoagulation Clinic Pharmacy Anticoagulation Clinic Pager: [phone]. documented in this encounterG[facility] Telephone encounter Note * Telephone Encounter - Jonathan Hawkins RPh - 09/20/2024 9:11 AM EST [facility] Anticoagulation Episode Summary Anticoagulation Care Providers Provider Role Specialty Phone number George Mata MD Responsible Internal Medicine [phone] Bessy Valverde is a 78 year old year old male patient being evaluated today for a Telemanagement visit. Patient is currently on the following anticoagulant(s) Warfarin. Labs PT INR (no units) Date Value 11/19/2021 2.7 biotel 11/05/2021 2.5 10/22/2021 2.8 biotel INR Home CoaguChek (no units) Date Value 09/20/2024 2.5 09/06/2024 2.2 08/23/2024 1.7 Hemoglobin (g/dL) Date Value 09/06/2024 11.3 09/23/2021 13.8 Hematocrit (%) Date Value 09/06/2024 33.9 09/23/2021 44.4 Platelet Count (k/uL) Date Value 09/06/2024 141 09/23/2021 160 Creatinine (mg/dL) Date Value 09/06/2024 1.66 01/25/2024 1.30 07/29/2023 1.35 09/23/2021 1.18 09/02/2021 1.31 08/05/2021 1.68 Bilirubin, Total (mg/dL) Date Value 09/06/2024 1.3 08/22/2021 1.2 ALT (U/L) Date Value 09/06/2024 15 08/22/2021 36 AST (U/L) Date Value 09/06/2024 21 08/22/2021 45 Estimated Creatinine Clearance: 37.4 mL/min (A) (based on SCr of 1.66 mg/dL (H)). ALLERGIES No Known Allergies Indication for Warfarin: Anticoagulation Episode Summary Current INR goal: 2.0-3.0 Assessment: INR result of 2.5 is therapeutic Plan: Current Warfarin Dosing As of 09/20/2024 Full warfarin instructions: 5 mg every Mon, Fri; 2.5 mg all other days Called and spoke to patient/caregiver Advised patient to continue current weekly dose as noted above Next home INR check scheduled on 10/04/2024 Patient verbalizes understanding of the plan. Patient advised to call the PAC with any medication changes, bleeding/bruising concerns, recent changes in vitamin k consumption, if any procedures are coming up, if they have been ill or in the hospital, and if they have missed any doses of warfarin. Jonathan Hawkins RPh Clinical Pharmacist, Pharmacy Anticoagulation Clinic Pharmacy Anticoagulation Clinic Pager: [phone]. [facility]02-11-2025 Miscellaneous Notes* Telephone Encounter - Jonathan Hawkins RPh - 09/20/2024 9:11 AM EST [facility] Anticoagulation Episode Summary Anticoagulation Care Providers Provider Role Specialty Phone number George Mata MD Responsible Internal Medicine [phone] Bessy Valverde is a 78 year old year old male patient being evaluated today for a Telemanagement visit. Patient is currently on the following anticoagulant(s) Warfarin. Labs PT INR (no units) Date Value 11/19/2021 2.7 biotel 11/05/2021 2.5 10/22/2021 2.8 biotel INR Home CoaguChek (no units) Date Value 09/20/2024 2.5 09/06/2024 2.2 08/23/2024 1.7 Hemoglobin (g/dL) Date Value 09/06/2024 11.3 09/23/2021 13.8 Hematocrit (%) Date Value 09/06/2024 33.9 09/23/2021 44.4 Platelet Count (k/uL) Date Value 09/06/2024 141 09/23/2021 160 Creatinine (mg/dL) Date Value 09/06/2024 1.66 01/25/2024 1.30 07/29/2023 1.35 09/23/2021 1.18 09/02/2021 1.31 08/05/2021 1.68 Bilirubin, Total (mg/dL) Date Value 09/06/2024 1.3 08/22/2021 1.2 ALT (U/L) Date Value 09/06/2024 15 08/22/2021 36 AST (U/L) Date Value 09/06/2024 21 08/22/2021 45 Estimated Creatinine Clearance: 37.4 mL/min (A) (based on SCr of 1.66 mg/dL (H)). ALLERGIES No Known Allergies Indication for Warfarin: Anticoagulation Episode Summary Current INR goal: 2.0-3.0 Assessment: INR result of 2.5 is therapeutic Plan: Current Warfarin Dosing As of 09/20/2024 Full warfarin instructions: 5 mg every Mon, Fri; 2.5 mg all other days Called and spoke to patient/caregiver Advised patient to continue current weekly dose as noted above Next home INR check scheduled on 10/04/2024 Patient verbalizes understanding of the plan. Patient advised to call the PAC with any medication changes, bleeding/bruising concerns, recent changes in vitamin k consumption, if any procedures are coming up, if they have been ill or in the hospital, and if they have missed any doses of warfarin. Jonathan Hawkins RPh Clinical Pharmacist, Pharmacy Anticoagulation Clinic Pharmacy Anticoagulation Clinic Pager: [phone]. documented in this encounterGlen[facility]02-[facility] Telephone encounter Note * Telephone Encounter - Galilea Plunkett MA - 09/16/2024 10:45 AM EST notified and given Dr. Iverson number to call and schedule. Faxed all documents Galilea Plunkett MA [facility]02-07-2025 Miscellaneous Notes* Telephone Encounter - Galilea Plunkett MA - 09/16/2024 10:45 AM EST notified and given Dr. Iverson number to call and schedule. Faxed all documents Galilea Plunkett MA * Telephone Encounter - George Mata MD - 09/14/2024 9:48 AM EST ASSESSMENT/PLAN: 1. Controlled type 2 diabetes mellitus with stage 3 chronic kidney disease, without long-term current use of insulin (HCC) - ICD9: 250.40, 585.3, ICD10: E11.22, N18.30 - eGFR: Worsening - CONSULT TO NEPHROLOGY. Dr. Mackenzie Iverson, [facility], [facility] Nephrology. George Mata MD * Telephone Encounter - Marva Carroll LPN - 09/13/2024 8:53 AM EST asking to be called when the referral has been faxed. If they do not answer, please leave a detailed message. Marva Carroll LPN * Telephone Encounter - Galilea Plunkett MA - 09/13/2024 8:34 AM EST Patient was notified and willing to see nephrology ut would like to remain in day. Please placeconsult and will fax all information to [facility] here in day. Patient was given number to call and schedule. Fax number: [phone] * Telephone Encounter - Galilea Plunkett MA - 09/13/2024 8:34 AM EST 1) CKD has worsened to stage 3b. Consider nephrology consult. 2) diabetes controlled. 3) lipids controlled. 4) anemia stable. George Mata MD documented in this encounterGlen[facility]02-[facility]25 Telephone encounter Note * Telephone Encounter - George Mata MD - 09/14/2024 9:48 AM EST ASSESSMENT/PLAN: 1. Controlled type 2 diabetes mellitus with stage 3 chronic kidney disease, without long-term current use of insulin (HCC) - ICD9: 250.40, 585.3, ICD10: E11.22, N18.30 - eGFR: Worsening - CONSULT TO NEPHROLOGY. Dr. Mackenzie Iverson, [facility], [facility] Nephrology. George Mata MD [facility]02-04-2025 Telephone encounter Note* Telephone Encounter - Marva Carroll LPN - 09/13/2024 8:53 AM EST asking to be called when the referral has been faxed. If they do not answer, please leave a detailed message. Marva Carroll LPN [facility]02-04-2025 Telephone encounter Note* Telephone Encounter - Galilea Plunkett MA - 09/13/2024 8:34 AM EST Patient was notified and willing to see nephrology ut would like to remain in day. Please placeconsult and will fax all information to [facility] here in day. Patient was given number to call and schedule. Fax number: [phone] [facility]02-04-2025 Telephone encounter Note* Telephone Encounter - Galilea Plunkett MA - 09/13/2024 8:34 AM EST 1) CKD has worsened to stage 3b. Consider nephrology consult. 2) diabetes controlled. 3) lipids controlled. 4) anemia stable. George Mata MD [facility]01-28-2025 Telephone encounter Note* Telephone Encounter - Jonathan Hawkins [facility] - 09/06/2024 8:20 AM EST [facility] Antico[facility] Anticoagulation Episode Summary Anticoagulation Care Providers Provider Role Specialty Phone number George Mata MD [facility] Internal Medicine [phone] Bessy Valverde is a 78 year old year old male patient being evaluated today for a Telemanagement visit. Patient is currently on the following anticoagulant(s) Warfarin. Labs PT INR (no units) Date Value 11/19/2021 2.7 biotel 11/05/2021 2.5 10/22/2021 2.8 biotel INR Home CoaguChek (no units) Date Value 09/06/2024 2.2 08/23/2024 1.7 08/16/2024 3.5 Hemoglobin (g/dL) Date Value 01/25/2024 12.2 09/23/2021 13.8 Hematocrit (%) Date Value 01/25/2024 37.8 09/23/2021 44.4 Platelet Count (k/uL) Date Value 01/25/2024 125 09/23/2021 160 Creatinine (mg/dL) Date Value 01/25/2024 1.30 07/29/2023 1.35 01/23/2023 1.27 09/23/2021 1.18 09/02/2021 1.31 08/05/2021 1.68 Bilirubin, Total (mg/dL) Date Value 01/25/2024 0.9 08/22/2021 1.2 ALT (U/L) Date Value 01/25/2024 20 08/22/2021 36 AST (U/L) Date Value 01/25/2024 24 08/22/2021 45 CrCl cannot be calculated (Patient's most recent lab result is older than the maximum 180 days allowed.). ALLERGIES No Known Allergies Indication for Warfarin: Anticoagulation Episode Summary Current INR goal: 2.0-3.0 Assessment: INR result of 2.2 is therapeutic Plan: Current Warfarin Dosing As of 09/06/2024 Full warfarin instructions: 5 mg every Mon, Fri; 2.5 mg all other days Left voice message Advised patient to continue current weekly dose as noted above Next home INR check scheduled on 09/20/2024 Patient advised to call the PAC with any medication changes, bleeding/bruising concerns, recent changes in vitamin k consumption, if any procedures are coming up, if they have been ill or in the hospital, and if they have missed any doses of warfarin. Jonathan Hawkins RPh Clinical Pharmacist, Pharmacy Anticoagulation Clinic Pharmacy Anticoagulation Clinic Pager: [phone]. [facility]01-28-2025 Miscellaneous Notes* Telephone Encounter - Jonathan Hawkins RPh - 09/06/2024 8:20 AM EST [facility] Anticoagulation Episode Summary Anticoagulation Care Providers Provider Role Specialty Phone number George Mata MD [facility] Internal Medicine [phone] Bessy Valverde is a 78 year old year old male patient being evaluated today for a Telemanagement visit. Patient is currently on the following anticoagulant(s) Warfarin. Labs PT INR (no units) Date Value 11/19/2021 2.7 biotel 11/05/2021 2.5 10/22/2021 2.8 biotel INR Home CoaguChek (no units) Date Value 09/06/2024 2.2 08/23/2024 1.7 08/16/2024 3.5 Hemoglobin (g/dL) Date Value 01/25/2024 12.2 09/23/2021 13.8 Hematocrit (%) Date Value 01/25/2024 37.8 09/23/2021 44.4 Platelet Count (k/uL) Date Value 01/25/2024 125 09/23/2021 160 Creatinine (mg/dL) Date Value 01/25/2024 1.30 07/29/2023 1.35 01/23/2023 1.27 09/23/2021 1.18 09/02/2021 1.31 08/05/2021 1.68 Bilirubin, Total (mg/dL) Date Value 01/25/2024 0.9 08/22/2021 1.2 ALT (U/L) Date Value 01/25/2024 20 08/22/2021 36 AST (U/L) Date Value 01/25/2024 24 08/22/2021 45 CrCl cannot be calculated (Patient's most recent lab result is older than the maximum 180 days allowed.). ALLERGIES No Known Allergies Indication for Warfarin: Anticoagulation Episode Summary Current INR goal: 2.0-3.0 Assessment: INR result of 2.2 is therapeutic Plan: Current Warfarin Dosing As of 09/06/2024 Full warfarin instructions: 5 mg every Mon, Fri; 2.5 mg all other days Left voice message Advised patient to continue current weekly dose as noted above Next home INR check scheduled on 09/20/2024 Patient advised to call the PAC with any medication changes, bleeding/bruising concerns, recent changes in vitamin k consumption, if any procedures are coming up, if they have been ill or in the hospital, and if they have missed any doses of warfarin. Jonathan Hawkins RPh Clinical Pharmacist, Pharmacy Anticoagulation Clinic Pharmacy Anticoagulation Clinic Pager: [phone]. documented in this encounterGlenbeigh Hospital01-14-2025 Telephone encounter Note * Telephone Encounter - Francois Nguyen RN - 08/23/2024 11:11 AM EST [facility], letting pcp know, patient declined [facility], stating he found out he had gout, and is doing a lot better now. [facility]01-14-2025 Miscellaneous Notes* Telephone Encounter - Francois Nguyen RN - 08/23/2024 11:11 AM EST [facility], letting pcp know, patient declined appt with [facility], stating he found out he had gout, and is doing a lot better now. documented in this encounterGlenbeigh Hospital01-14-2025 Telephone encounter Note * Telephone Encounter - RossJonathan, [facility] - 08/23/2024 8:00 AM EST [facility] Anticoagulation Episode Summary Anticoagulation Care Providers Provider Role Specialty Phone number George Mata MD [facility] Internal Medicine [phone] Bessy Valverde is a 78 year old year old male patient being evaluated today for a Telemanagement visit. Patient is currently on the following anticoagulant(s) Warfarin. Labs PT INR (no units) Date Value 11/19/2021 2.7 biotel 11/05/2021 2.5 10/22/2021 2.8 biotel INR Home CoaguChek (no units) Date Value 08/23/2024 1.7 08/16/2024 3.5 07/19/2024 3.0 Hemoglobin (g/dL) Date Value 01/25/2024 12.2 09/23/2021 13.8 Hematocrit (%) Date Value 01/25/2024 37.8 09/23/2021 44.4 Platelet Count (k/uL) Date Value 01/25/2024 125 09/23/2021 160 Creatinine (mg/dL) Date Value 01/25/2024 1.30 07/29/2023 1.35 01/23/2023 1.27 09/23/2021 1.18 09/02/2021 1.31 08/05/2021 1.68 Bilirubin, Total (mg/dL) Date Value 01/25/2024 0.9 08/22/2021 1.2 ALT (U/L) Date Value 01/25/2024 20 08/22/2021 36 AST (U/L) Date Value 01/25/2024 24 08/22/2021 45 CrCl cannot be calculated (Patient's most recent lab result is older than the maximum 180 days allowed.). ALLERGIES No Known Allergies Indication for Warfarin: Anticoagulation Episode Summary Current INR goal: 2.0-3.0 Assessment: INR result of 1.7 is SUBtherapeutic due to: taking lower dose while on prednisone last week Plan: Current Warfarin Dosing As of 08/23/2024 Full warfarin instructions: 08/23: 5 mg; Otherwise 5 mg every Mon, Fri; 2.5 mg all other days Called and spoke to patient/caregiver Advised patient to increase dose for 1 day only then resume weekly regimen Next home INR check scheduled on 08/30/2024 Patient verbalizes understanding of the plan. Patient advised to call the PAC with any medication changes, bleeding/bruising concerns, recent changes in vitamin k consumption, if any procedures are coming up, if they have been ill or in the hospital, and if they have missed any doses of warfarin. Jonathan Hawkins RPh Clinical Pharmacist, Pharmacy Anticoagulation Clinic Pharmacy Anticoagulation Clinic Pager: [phone]. [facility]01-14-[facility] Miscellaneous Notes* Telephone Encounter - Jonathan Hawkins RPh - 08/23/2024 8:00 AM EST [facility] Anticoagulation Episode Summary Anticoagulation Care Providers Provider Role Specialty Phone number George Mata MD [facility] Internal Medicine [phone] Bessy Valverde is a 78 year old year old male patient being evaluated today for a Telemanagement visit. Patient is currently on the following anticoagulant(s) Warfarin. Labs PT INR (no units) Date Value 11/19/2021 2.7 biotel 11/05/2021 2.5 10/22/2021 2.8 biotel INR Home CoaguChek (no units) Date Value 08/23/2024 1.7 08/16/2024 3.5 07/19/2024 3.0 Hemoglobin (g/dL) Date Value 01/25/2024 12.2 09/23/2021 13.8 Hematocrit (%) Date Value 01/25/2024 37.8 09/23/2021 44.4 Platelet Count (k/uL) Date Value 01/25/2024 125 09/23/2021 160 Creatinine (mg/dL) Date Value 01/25/2024 1.30 07/29/2023 1.35 01/23/2023 1.27 09/23/2021 1.18 09/02/2021 1.31 08/05/2021 1.68 Bilirubin, Total (mg/dL) Date Value 01/25/2024 0.9 08/22/2021 1.2 ALT (U/L) Date Value 01/25/2024 20 08/22/2021 36 AST (U/L) Date Value 01/25/2024 24 08/22/2021 45 CrCl cannot be calculated (Patient's most recent lab result is older than the maximum 180 days allowed.). ALLERGIES No Known Allergies Indication for Warfarin: Anticoagulation Episode Summary Current INR goal: 2.0-3.0 Assessment: INR result of 1.7 is SUBtherapeutic due to: taking lower dose while on prednisone last week Plan: Current Warfarin Dosing As of 08/23/2024 Full warfarin instructions: 08/23: 5 mg; Otherwise 5 mg every Mon, Fri; 2.5 mg all other days Called and spoke to patient/caregiver Advised patient to increase dose for 1 day only then resume weekly regimen Next home INR check scheduled on 08/30/2024 Patient verbalizes understanding of the plan. Patient advised to call the PAC with any medication changes, bleeding/bruising concerns, recent changes in vitamin k consumption, if any procedures are coming up, if they have been ill or in the hospital, and if they have missed any doses of warfarin. Jonathan Hawkins RPh Clinical Pharmacist, Pharmacy Anticoagulation Clinic Pharmacy Anticoagulation Clinic Pager: [phone]. documented in this encounterGlen[facility] Hospital01-07-2025 Telephone encounter Note * Telephone Encounter - Jonathan Hawkins RPh - 08/16/2024 9:12 AM EST [facility] Anticoagulation Episode Summary Anticoagulation Care Providers Provider Role Specialty Phone number George Mata MD Responsible Internal Medicine [phone] Bessy Valverde is a 78 year old year old male patient being evaluated today for a Telemanagement visit. Patient is currently on the following anticoagulant(s) Warfarin. Labs PT INR (no units) Date Value 11/19/2021 2.7 biotel 11/05/2021 2.5 10/22/2021 2.8 biotel INR Home CoaguChek (no units) Date Value 08/16/2024 3.5 07/19/2024 3.0 07/05/2024 2.8 Hemoglobin (g/dL) Date Value 01/25/2024 12.2 09/23/2021 13.8 Hematocrit (%) Date Value 01/25/2024 37.8 09/23/2021 44.4 Platelet Count (k/uL) Date Value 01/25/2024 125 09/23/2021 160 Creatinine (mg/dL) Date Value 01/25/2024 1.30 07/29/2023 1.35 01/23/2023 1.27 09/23/2021 1.18 09/02/2021 1.31 08/05/2021 1.68 Bilirubin, Total (mg/dL) Date Value 01/25/2024 0.9 08/22/2021 1.2 ALT (U/L) Date Value 01/25/2024 20 08/22/2021 36 AST (U/L) Date Value 01/25/2024 24 08/22/2021 45 CrCl cannot be calculated (Patient's most recent lab result is older than the maximum 180 days allowed.). ALLERGIES No Known Allergies Indication for Warfarin: Anticoagulation Episode Summary Current INR goal: 2.0-3.0 Assessment: INR result of 3.5 is SUPRAtherapeutic due to: NVD/fevers from Covid and decreased vit k Plan: Current Warfarin Dosing As of 08/16/2024 Full warfarin instructions: 08/16: Hold; 08/19: 2.5 mg; Otherwise 5 mg every Mon, Fri; 2.5 mg all other days Called and spoke to patient/caregiver Advised patient to hold 1 dose then decrease current regimen Next home INR check scheduled on 08/23/2024 Patient verbalizes understanding of the plan. Patient advised to call the PAC with any medication changes, bleeding/bruising concerns, recent changes in vitamin k consumption, if any procedures are coming up, if they have been ill or in the hospital, and if they have missed any doses of warfarin. Jonathan Hawkins RPh Clinical Pharmacist, Pharmacy Anticoagulation Clinic Pharmacy Anticoagulation Clinic Pager: [phone]. [facility]01[facility]07[facility] Miscellaneous Notes* Telephone Encounter - Jonathan Hawkins RPh - 08/16/2024 9:12 AM EST [facility] Anticoagulation Episode Summary Anticoagulation Care Providers Provider Role Specialty Phone number George Mata MD [facility] Internal Medicine [phone] Bessy Valverde is a 78 year old year old male patient being evaluated today for a Telemanagement visit. Patient is currently on the following anticoagulant(s) Warfarin. Labs PT INR (no units) Date Value 11/19/2021 2.7 biotel 11/05/2021 2.5 10/22/2021 2.8 biotel INR Home CoaguChek (no units) Date Value 08/16/2024 3.5 07/19/2024 3.0 07/05/2024 2.8 Hemoglobin (g/dL) Date Value 01/25/2024 12.2 09/23/2021 13.8 Hematocrit (%) Date Value 01/25/2024 37.8 09/23/2021 44.4 Platelet Count (k/uL) Date Value 01/25/2024 125 09/23/2021 160 Creatinine (mg/dL) Date Value 01/25/2024 1.30 07/29/2023 1.35 01/23/2023 1.27 09/23/2021 1.18 09/02/2021 1.31 08/05/2021 1.68 Bilirubin, Total (mg/dL) Date Value 01/25/2024 0.9 08/22/2021 1.2 ALT (U/L) Date Value 01/25/2024 20 08/22/2021 36 AST (U/L) Date Value 01/25/2024 24 08/22/2021 45 CrCl cannot be calculated (Patient's most recent lab result is older than the maximum 180 days allowed.). ALLERGIES No Known Allergies Indication for Warfarin: Anticoagulation Episode Summary Current INR goal: 2.0-3.0 Assessment: INR result of 3.5 is SUPRAtherapeutic due to: NVD/fevers from Covid and decreased vit k Plan: Current Warfarin Dosing As of 08/16/2024 Full warfarin instructions: 08/16: Hold; 08/19: 2.5 mg; Otherwise 5 mg every Mon, Fri; 2.5 mg all other days Called and spoke to patient/caregiver Advised patient to hold 1 dose then decrease current regimen Next home INR check scheduled on 08/23/2024 Patient verbalizes understanding of the plan. Patient advised to call the PAC with any medication changes, bleeding/bruising concerns, recent changes in vitamin k consumption, if any procedures are coming up, if they have been ill or in the hospital, and if they have missed any doses of warfarin. Jonathan Hawkins RPh Clinical Pharmacist, Pharmacy Anticoagulation [facility] Pharm[facility] Pager: [phone]. * Telephone Encounter - Yessy Walden PSS - 08/16/2024 8:56 AM EST Patient returned the call. Please call the patient at [phone] * Telephone Encounter - Jonathan Hawkins RPh - 08/16/2024 8:40 AM EST The patient was called to discuss recent INR test results. A voice message was left on patient's Home telephone voice mail. The patient was advised to call the Coumadin Clinic at [phone] and hold warfarin today. On prednisone 40 mg daily PT INR (no units) Date Value 11/19/2021 2.7 biotel 11/05/2021 2.5 10/22/2021 2.8 biotel INR Home CoaguChek (no units) Date Value 08/16/2024 3.5 07/19/2024 3.0 07/05/2024 2.8 Jonathan Hawkins PharmD,CACP documented [facility] Telephone encounter Note * Telephone Encounter - Yessy Walden PSS - 08/16/2024 8:56 AM EST Patient returned the call. Please call the patient at [phone] [facility] Telephone encounter Note* Telephone Encounter - Jonathan Hawkins RPh - 08/16/2024 8:40 AM EST The patient was called to discuss recent INR test results. A voice message was left on patient's Home telephone voice mail. The patient was advised to call the Coumadin Clinic at [phone] and hold warfarin today. On prednisone 40 mg daily PT INR (no units) Date Value 11/19/2021 2.7 biotel 11/05/2021 2.5 10/22/2021 2.8 biotel INR Home CoaguChek (no units) Date Value 08/16/2024 3.5 07/19/2024 3.0 07/05/2024 2.8 Jonathan Hawkins PharmD,CACP [facility]01-[facility] Telephone encounter Note* Telephone Encounter - Galilea Plunkett MA - 08/15/2024 12:48 PM EST Patient notified via voicemail Galilea Plunkett MA [facility]01-06-2025 Miscellaneous Notes* Telephone Encounter - Galilea Plunkett MA - 08/15/2024 12:48 PM EST Patient notified via voicemail Galilea Plunkett MA * Telephone Encounter - George Mata MD - 08/15/2024 12:28 PM EST The following approved medication requests have been transmitted electronically. Requested Prescriptions Signed Prescriptions Disp Refills predniSONE (DELTASONE) 10 mg tablet 14 tablet 0 Sig: Take 4 tablets by mouth once daily for 2 days, THEN 2 tablets once daily for 2 days, THEN 1 tablet once daily for 2 days. Authorizing Provider: GEORGE MATA MD * Telephone Encounter - Galilea Plunkett MA - 08/15/2024 10:35 AM EST Patient was notified and is feeling better. Patient will schedule with pulmonary office for follow up. Requesting prednisone taper for gout attack . If ok rx pended and will let patient know Galilea Plunkett MA * Telephone Encounter - Galilea Plunkett MA - 08/15/2024 10:33 AM EST ----- Message from George Mata MD sent at 08/13/2024 8:13 PM EST ----- Pulmonary fibrosis, atelectasis, difficult to rule out pneumonia. Schedule follow up if he is not better. Also follow up with his customer resource specialist. documented in [facility] encounterG[facility]01-[facility]25 Telephone encounter Note * Telephone Encounter - George Mata MD - 08/15/2024 12:28 PM EST The following approved medication requests have been transmitted electronically. Requested Prescriptions Signed Prescriptions Disp Refills predniSONE (DELTASONE) 10 mg tablet 14 tablet 0 Sig: Take 4 tablets by mouth once daily for 2 days, THEN 2 tablets once daily for 2 days, THEN 1 tablet once daily for 2 days. Authorizing Provider: GEORGE MATA MD [facility]01-06-2025 Telephone encounter Note* Telephone Encounter - Galilea Plunkett MA - 08/15/2024 10:35 AM EST Patient was notified and is feeling better. Patient will schedule with pulmonary office for follow up. Requesting prednisone taper for gout attack . If ok rx pended and will let patient know Galilea Plunkett MA [facility]01-06-2025 Telephone encounter Note* Telephone Encounter - Galilea Plunkett MA - 08/15/2024 10:33 AM EST ----- Message from George Mata MD sent at 08/13/2024 8:13 PM EST ----- Pulmonary fibrosis, atelectasis, difficult to rule out pneumonia. Schedule follow up if he is not better. Also follow up with his customer resource specialist. [facility]12-31-2024 History of Present illness Narrative* Tramaine Cano, RT(R) - 08/09/2024 11:20 AM EST Radiology Service Progress Note PATIENT NAME: Bessy Valverde DATE OF SERVICE: August 09, 2024 TIME: 11:33 AM PATIENT IDENTITY VERIFICATION COMPLETED USING TWO (2) IDENTIFIERS: Name and Date of confirmedby patient verbally. FALL SCREENING: Has the patient had 2 falls in the last year or 1 fall with injury or currently using an Ambulatory Assistive Device (Walker, Cane, Wheelchair, Crutches, etc.)? No PATIENT GENDER DATA: Male PATIENT RELEVANT IMPLANT DATA REVIEWED: Not Applicable PATIENT PRESENTS WITH AN IMPLANTABLE OR ATTACHED MORGUE KEEPER: No RADIOLOGY DEPARTMENT: General X-ray: Exam(s) Completed: Chest X-Ray PERIPHERAL IV DATA: Not applicable SIGNED BY: RT Mervat(Hyun) August 09, 2024 11:33 AM documented in this encounterGlenbeigh Hospital12-31-2024 NoteHNO ID: [id number] Author: TRAMAINE CANO RT(R) Service: Radiology Author Type: Technologist Type: Progress Notes Filed: 08/09/2024 11:44 Note Text: Radiology Service Progress Note PATIENT NAME: Bessy Valverde DATE OF SERVICE: August 09, 2024 TIME: 11:33 AM PATIENT IDENTITY VERIFICATION COMPLETED USING TWO (2) IDENTIFIERS: Name and Date of confirmed by patient verbally. FALL SCREENING: Has the patient had 2 falls in the last year or 1 fall with injury or currently using an Ambulatory Assistive Device (Walker, Cane, Wheelchair, Crutches, etc.)? No PATIENT GENDER DATA: Male PATIENT RELEVANT IMPLANT DATA REVIEWED: Not Applicable PATIENT PRESENTS WITH AN IMPLANTABLE OR ATTACHED MORGUE KEEPER: No RADIOLOGY DEPARTMENT: General X-ray: Exam(s) Completed: Chest X-Ray PERIPHERAL IV DATA: Not applicable SIGNED BY: RT Mervat(R) August 09, 2024 11:33 [facility]12-31-2024 NoteHNO ID: [id number] Author: GEORGE MATA MD Service: ? Author Type: Physician Type: Progress Notes Filed: 08/10/2024 17:01 Note Text: This note was created using [employer] Solutionsriter. Subjective Patient presents with: Yearly Exam Bessy Valverde is a 78 year old male here with Monica He started with sore throat, non productive cough 3 days ago, after a prolonged wait in the ER for 's illness. Other symptoms are myalgias. No GI symptoms were noted. Tylenol was taken. His medications have not changed, and his conditions appeared to be stable. His main health issue at this time was worsening chronic low back pain. He's had several back injections by Dr. Rousseau which had little benefit, and he was told he was not a candidate for surgery. PT was ordered. He had not done his labs yet for this check up. He was not checking glucose regularly. He was not taking Jardiance due to GI side effects. requested referral to [facility] for chronic ankle pain right side, with remote injury. Dr. Arline Gant, cardiology. Dr. Cielo Delgado, pulmonary. Dr. Cielo Rousseau, pain management. Dr. Crowder, ophthalmology. Dr. Faizan Pierce, Vascular surgery. Review of Systems Constitutional: Positive for fatigue. Negative for activity change, chills, diaphoresis, fever and unexpected weight change. HENT: Positive for congestion and sore throat. Negative for ear pain, postnasal drip and rhinorrhea. Respiratory: Negative for chest tightness, shortness of breath and wheezing. Cardiovascular: Positive for leg swelling. Negative for chest pain and palpitations. Gastrointestinal: Negative for abdominal pain, nausea and vomiting. Genitourinary: Negative for difficulty urinating. Musculoskeletal: Positive for back pain and myalgias. Neurological: Negative for dizziness and headaches. Psychiatric/Behavioral: Negative. 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 Chronic Kidney Disease (Hcc) (Hcc) Thrombocytopenia (Hcc) 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 (Hcc) Pvd (Peripheral Vascular Disease) With Claudication (Hcc) PAST SURGICAL HISTORY Procedure Laterality Date AICD, DUAL CHAMBER 10/29/2015 dual lead AICD APPENDECTOMY 1993 [facility] INCL FLUOR GDNCE DX W/CELL WASHG SPX 02/04/2013 BRONCHOSCOPY CARDIAC CATH 12/16/2017 Alex CARDIAC CATH 12/14/2018 Right AND Left COLONOSCOPY AND POLYPECTOMY 04/03/2017 COLONOSCOPY SCREENING 05/06/2021 [facility] COLONOSCOPY W/BIOPSY SINGLE/MULTIPLE 07/26/2010 Diminutive polyp of sigmoid/diverticulosis COLONOSCOPY W/BIOPSY SINGLE/MULTIPLE 09/10/2012 CORONARY ARTERY BYP W/VEIN AND ARTERY GRAFT 4 VEIN 04/29/2007 CABG, quadruple grafts CORONARY ARTERY BYPASS GRAFT CORONARY STENT EA VESSEL 02/12/2018 [facility] RCA EGD 05/06/2021 [facility] EGD TRANSORAL BIOPSY SINGLE/MULTIPLE 09/10/2012 EGD W/ BIOPSY SNGL/MLTPL 04/03/2017 [facility] HEART VALVE REPLACEMENT IMPLANTABLE CARDIOVERTER DEFIBRILLATOR INSJ/RPLCMT PERM DFB W/TRNSVNS LDS 1/DUAL CHMBR 06/10/2013 AICD LEFT HEART CATH,PERCUTANEOUS 05/03/2012 Cardiac cath, L heart LEFT HEART CATH,PERCUTANEOUS 04/27/2013 Cardiac cath, L heart LEFT HEART CATH,PERCUTANEOUS 10/07/2015 LEFT HEART CATH,PERCUTANEOUS 07/25/2021 PAST SURGICAL HISTORY OF 09/17/2020 Right Cataract removed REPLACEMENT MITRAL VALVE W/CARDIOPULMONARY BYP 05/17/2013 Mitral valve replacement, IABP TRANSCATH STENT INIT VESSEL,PERCUT 1996 3 PTCAs and stents. 1995 AND 1996 TRANSCATH STENT INIT VESSEL,PERCUT 05/02/2009 Transcath stent init vessel percut FAMILY HISTORY Problem Relation Age of Onset Heart Mother of CHF. Diabetes Mother Breast Cancer Mother Heart Father of CT age 85. CABG 13 yrs. prior Heart Sister of CHF age 55, rheumatic heart disease Colon Polyps Sister Ischemic Heart Disease Sister Heart Sister Heart Brother valvular heart disease COPD Brother Pneumonia Brother Covid 19 Social History Tobacco Use Smoking status: Former Types: Pipe Quit date: 08/10/1969 Years since quittin.0 Smokeless tobacco: Current Types: Snuff Tobacco comments: Chews tobacco 2 boxes per week since . Vaping Use Vaping status: Never Used Sub (more content not included)...[facility]12-31-2024 History of Present illness Narrative* George Mata MD - 08/09/2024 10:34 AM EST This note was created using NoteWriter. Subjective Patient presents with: Yearly Exam Bessy Valverde is a 78 year old male here with Monica He started with sore throat, non productive cough 3 days ago, after a prolonged wait in the ER for 's illness. Other symptoms are myalgias. No GI symptoms were noted. Tylenol was taken. His medications have not changed, and his conditions appeared to be stable. His main health issue at this time was worsening chronic low back pain. He's had several back injections by Dr. Rousseau which had little benefit, and he was told he was not a candidate for surgery. PT was ordered. He had not done his labs yet for this check up. He was not checking glucose regularly. He was not taking Jardiance due to GI side effects. requested referral to [facility] for chronic ankle pain right side, with remote injury. Dr. Arline Gant, cardiology. Dr. Cielo Delgado, pulmonary. Dr. Cielo Rousseau, pain management. Dr. Crowder, ophthalmology. Dr. Faizan Pierce, Vascular surgery. Review of Systems Constitutional: Positive for fatigue. Negative for activity change, chills, diaphoresis, fever and unexpected weight change. HENT: Positive for congestion and sore throat. Negative for ear pain, postnasal drip and rhinorrhea. Respiratory: Negative for chest tightness, shortness of breath and wheezing. Cardiovascular: Positive for leg swelling. Negative for chest pain and palpitations. Gastrointestinal: Negative for abdominal pain, nausea and vomiting. Genitourinary: Negative for difficulty urinating. Musculoskeletal: Positive for back pain and myalgias. Neurological: Negative for dizziness and headaches. Psychiatric/Behavioral: Negative. 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 Chronic Kidney Disease (Hcc) (Hcc) Thrombocytopenia (Hcc) 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 (Hcc) Pvd (Peripheral Vascular Disease) With Claudication (Hcc) PAST SURGICAL HISTORY Procedure Laterality Date AICD, DUAL CHAMBER 10/29/2015 dual lead AICD APPENDECTOMY 1993 [facility] INCL FLUOR GDNCE DX W/CELL WASHG SPX 02/04/2013 BRONCHOSCOPY CARDIAC CATH 12/16/2017 Alex CARDIAC CATH 12/14/2018 Right & Left COLONOSCOPY & POLYPECTOMY 04/03/2017 COLONOSCOPY SCREENING 05/06/2021 [facility] COLONOSCOPY W/BIOPSY SINGLE/MULTIPLE 07/26/2010 Diminutive polyp of sigmoid/diverticulosis COLONOSCOPY W/BIOPSY SINGLE/MULTIPLE 09/10/2012 CORONARY ARTERY BYP W/VEIN & ARTERY GRAFT 4 VEIN 04/29/2007 CABG, quadruple grafts CORONARY ARTERY BYPASS GRAFT CORONARY STENT EA VESSEL 02/12/2018 [facility]nergy RCA EGD 05/06/2021 [facility] EGD TRANSORAL BIOPSY SINGLE/MULTIPLE 09/10/2012 EGD W/ BIOPSY SNGL/MLTPL 04/03/2017 [facility] HEART VALVE REPLACEMENT IMPLANTABLE CARDIOVERTER DEFIBRILLATOR INSJ/RPLCMT PERM DFB W/TRNSVNS LDS 1/DUAL CHMBR 06/10/2013 AICD LEFT HEART CATH,PERCUTANEOUS 05/03/2012 Cardiac cath, L heart LEFT HEART CATH,PERCUTANEOUS 04/27/2013 Cardiac cath, L heart LEFT HEART CATH,PERCUTANEOUS 10/07/2015 LEFT HEART CATH,PERCUTANEOUS 07/25/2021 PAST SURGICAL HISTORY OF 09/17/2020 Right Cataract removed REPLACEMENT MITRAL VALVE W/CARDIOPULMONARY BYP 05/17/2013 Mitral valve replacement, IABP TRANSCATH STENT INIT VESSEL,PERCUT 1996 3 PTCAs and stents. 1995 & 1996 TRANSCATH STENT INIT VESSEL,PERCUT 05/02/2009 Transcath stent init vessel percut FAMILY HISTORY Problem Relation Age of Onset Heart Mother of CHF. Diabetes Mother Breast Cancer Mother Heart Father of CT age 85. CABG 13 yrs. prior Heart Sister of CHF age 55, rheumatic heart disease Colon Polyps Sister Ischemic Heart Disease Sister Heart Sister Heart Brother valvular heart disease COPD Brother Pneumonia Brother Covid 19 Social History Tobacco Use Smoking status: Former Types: Pipe Quit date: 08/10/1969 Years since quittin.0 Smokeless tobacco: Current Types: Snuff Tobacco comments: Chews tobacco 2 boxes per week since . Vaping Use Vaping status: Never Used Substance Use Topics Alcohol use: No Drug use: No Current Outpatient Medications Medication Sig albuterol HFA (VENTOLIN HFA) 90 mcg/actuation inhaler USE 2 INHALATIONS 4 TIMES A DAY IF NEEDED empagliflozin (JARDIANCE) 10 mg tablet Take 1 tablet by mouth once daily. Take 1 tablet once daily in the morning montelukast (SINGULAIR) 10 mg tablet Take 1 tablet by mouth daily at bedtime. For asthma and allergies. warfarin (COUMADIN) 5 mg tablet 5 mg every Mon & Fr ; 2.5 mg all other days fluticasone-salmeterol (ADVAIR DISKUS) 100-50 mcg/dose inhaler Inhale 1 Puff as instructed two times a day. Rinse mouth out after use with water. atorvastatin (LIPITOR) 40 mg tablet Take 1 tablet by mouth once daily. pantoprazole DR (PROTONIX) 20 mg tablet Take 1 tablet by mouth daily before breakfast. Take on empty stomach, 1/2 hr before meal. dwpimkyyn-bynwvp-bzfkhqgp-scop () 16.2-0.1037 -0.0194 mg per tablet Take 1 tablet by mouth every 6 hours as needed. nitroglycerin sublingual (NITROSTAT) 0.4 mg SL tablet Dissolve 1 tablet under the tongue as needed.DISSOLVE ON TONGUE FOR CHEST PAIN. IF NO PAIN RELIEF, CALL 911 bumetanide (BUMEX) 1 mg tablet One tablet every other day; OR daily, depending on weight gain, fluid retention. ENTRESTO 24-26 mg tablet Take 1 tablet by mouth twice daily. sotalol (BETAPACE) 80 mg tablet Take 2 tablets by mouth twice daily. spironolactone (ALDACTONE) 25 mg tablet Take 25 mg by mouth once daily. LOW-DOSE ASPIRIN ORAL Take 1 tablet by mouth once daily. blood sugar diagnostic (BLOOD GLUCOSE TEST) test strip Test blood sugar(s) one times daily. Dx: Type 2 DM - Controlled E11.9 Insulin: No Blood-Glucose Meter monitoring kit Glucose Meter of Choice - Kit - Dx: Type 2 DM - Controlled E11.9 No current facility-administered medications for this visit. Objective BP 112/68 (BP Site: Left Arm, BP Position: Sitting, BP Cuff Size: Large Adult) Pulse 72 Temp 36.2 C (97.2 F) (Temporal) Resp 24 Ht 171.7 cm (5' 7.6) Wt 81.8 kg (180 lb 5.4 oz) SpO2 97% BMI 27.75 kg/m Physical Exam Constitutional: General: He is not in acute distress. Appearance: He is not ill-appearing or diaphoretic. HENT: Head: Normocephalic. Nose: Congestion present. No rhinorrhea. Mouth/Throat: Mouth: Mucous membranes are moist. Pharynx: No oropharyngeal exudate or posterior oropharyngeal erythema. Eyes: General: No scleral icterus. Extraocular Movements: Extraocular movements intact. Conjunctiva/sclera: Conjunctivae normal. Cardiovascular: Rate and Rhythm: Normal rate. Rhythm irregular. Heart sounds: S2 normal. Murmur heard. Systolic murmur is present with a grade of 1/6. Pulmonary: Effort: No respiratory distress. Breath sounds: Examination of the right-lower field reveals rales. Examination of the left-lower field reveals rales. Rales present. No decreased breath sounds or wheezing. Abdominal: General: There is no distension. Tenderness: There is no abdominal tenderness. Musculoskeletal: Cervical back: No tenderness. Lumbar back: No tenderness. Decreased range of motion. Right lower le+ Pitting Edema present. Left lower le+ Pitting Edema present. Lymphadenopathy: Cervical: No cervical adenopathy. Neurological: General: No focal deficit present. Mental Status: He is alert. Feet:Shoes and socks removed, abnormal pulses Decreased bilaterally, sensitive to 10 gm monofilament, and nails notable for Deformed or Yellowish. Assessment and Plan 1. Routine medical exam - ICD9: V70.0, ICD10: Z00.00 (primary diagnosis) - Counseled on healthy diet and regular exercise - Advanced directive discussed. 2. Pure hypercholesterolemia - ICD9: 272.0, ICD10: E78.00 - Control TBD. - ATORVASTATIN 40 MG TABLET 3. Controlled type 2 diabetes mellitus with stage 3 chronic kidney disease, without long-term current use of insulin (HCC) - ICD9: 250.40, 585.3, ICD10: E11.22, N18.30 - Control undetermined, due for labs - Continue current medications - Blood glucose monitoring on a once daily schedule - eGFR: 56 Due for labs - CONSULT TO PODIATRY. He requested referral to [facility]. 4. Chronic systolic heart failure (HCC) - ICD9: 428.22, ICD10: I50.22 - Compensated - BUMETANIDE 1 MG TABLET 5. Asthma, moderate persistent, well-controlled - ICD9: 493.90, ICD10: J45.40 - Moderate persistent asthma stable - Continue current medications - MONTELUKAST 10 MG TABLET - FLUTICASONE 100 MCG-SALMETEROL 50 MCG/DOSE BLISTR POWDR FOR INHALATION 6. Byers's esophagus with dysplasia - ICD9: 530.85, ICD10: K22.719 Reviewed last EGD which was negative and surveillance no longer recommended. Change to GERD. - PANTOPRAZOLE 20 MG TABLET,DELAYED RELEASE 7. Irritable bowel syndrome, unspecified type - ICD9: 564.1, ICD10: K58.9 - Controlled. - VQFNUYLAE-KEIDXMYPX-BCQVCJKS-SCOP 16.2 MG-0.1037 MG-0.0194 MG TABLET 8. Anticoagulated on Coumadin ( home INR testing) - ICD9: V58.61, ICD10: Z79.01 - Monitored. 9. Atherosclerosis of [place] coronary artery of [place] heart without angina pectoris - ICD9: 414.01, ICD10: I25.10 - Stable and followed by [facility]. 10. Essential hypertension - ICD9: 401.9, ICD10: I10 - Controlled - Continue current medications 11. Acute cough - ICD9: 786.2, ICD10: R05.1 - COVID & INFLUENZA A/B & RSV PCR, ROUTINE - XR CHEST 2V FRONTAL/LAT 12. Chronic ankle pain, unspecified laterality - ICD9: 719.47, 338.29, ICD10: M25.579, G89.29 - CONSULT TO PODIATRY 13. PVD (peripheral vascular disease) with claudication (HCC) - ICD9: 443.9, ICD10: I73.9 - Stable. 14. Thrombocytopenia (HCC) - ICD9: 287.5, ICD10: D69.6 - Monitored. 15. Ventricular tachycardia (HCC) - ICD9: 427.1, ICD10: I47.20 - Stable. Managed by cardiology. 16. Interstitial lung disease (HCC) - ICD9: 515, ICD10: J84.9 - Complicates assessment for pneumonia. George Mata MD ADDENDUM August 10, 2024 Covid + and chest xray report pending with possible infiltrate. I called and spoke to patient and spouse. Shared medical decision making was done. He is feeling somewhat better. With risk factors, we agreed to proceed with PAXLOVID. He will start JODEE tomorrow. Hold atorvastatin, Wixela inhaler, and while on Paxlovid. Have INR checked in one week. Return sooner if worse. Patient indicated understanding and willingness to follow recommendations. George Mata MD documented [facility]12-[facility] Telephone encounter Note * Telephone Encounter - Jonathan Hawkins [facility] - 07/19/2024 10:09 AM EST [facility] Anticoagulation Episode Summary Anticoagulation Care Providers Provider Role Specialty Phone number George Mata MD [facility] Internal Medicine [phone] Bessy Valverde is a 78 year old year old male patient being evaluated today for a Telemanagement visit. Patient is currently on the following anticoagulant(s) Warfarin. Labs PT INR (no units) Date Value 11/19/2021 2.7 biotel 11/05/2021 2.5 10/22/2021 2.8 biotel INR Home CoaguChek (no units) Date Value 07/19/2024 3.0 07/05/2024 2.8 06/21/2024 3.3 Hemoglobin (g/dL) Date Value 01/25/2024 12.2 09/23/2021 13.8 Hematocrit (%) Date Value 01/25/2024 37.8 09/23/2021 44.4 Platelet Count (k/uL) Date Value 01/25/2024 125 09/23/2021 160 Creatinine (mg/dL) Date Value 01/25/2024 1.30 07/29/2023 1.35 01/23/2023 1.27 09/23/2021 1.18 09/02/2021 1.31 08/05/2021 1.68 Bilirubin, Total (mg/dL) Date Value 01/25/2024 0.9 08/22/2021 1.2 ALT (U/L) Date Value 01/25/2024 20 08/22/2021 36 AST (U/L) Date Value 01/25/2024 24 08/22/2021 45 CrCl cannot be calculated (Unknown ideal weight.). ALLERGIES No Known Allergies Indication for Warfarin: Anticoagulation Episode Summary Current INR goal: 2.0-3.0 Assessment: INR result of 3.0 is therapeutic Plan: Current Warfarin Dosing As of 07/19/2024 Full warfarin instructions: 5 mg every Mon, Fri; 2.5 mg all other days Called and spoke to patient/caregiver Advised patient to continue current weekly dose as noted above Next home INR check scheduled on 08/16/2024 Patient verbalizes understanding of the plan. Patient advised to call the PAC with any medication changes, bleeding/bruising concerns, recent changes in vitamin k consumption, if any procedures are coming up, if they have been ill or in the hospital, and if they have missed any doses of warfarin. Jonathan Hawkins RPh Clinical Pharmacist, Pharmacy Anticoagulation Clinic Pharmacy Anticoagulation Clinic Pager: [phone]. [facility]12-10-2024 Miscellaneous Notes* Telephone Encounter - Jonathan Hawkins RPh - 07/19/2024 10:09 AM EST [facility] Anticoagulation Episode Summary Anticoagulation Care Providers Provider Role Specialty Phone number George Mata MD [facility] Internal Medicine [phone] Bessy Valverde is a 78 year old year old male patient being evaluated today for a Telemanagement visit. Patient is currently on the following anticoagulant(s) Warfarin. Labs PT INR (no units) Date Value 11/19/2021 2.7 biotel 11/05/2021 2.5 10/22/2021 2.8 biotel INR Home CoaguChek (no units) Date Value 07/19/2024 3.0 07/05/2024 2.8 06/21/2024 3.3 Hemoglobin (g/dL) Date Value 01/25/2024 12.2 09/23/2021 13.8 Hematocrit (%) Date Value 01/25/2024 37.8 09/23/2021 44.4 Platelet Count (k/uL) Date Value 01/25/2024 125 09/23/2021 160 Creatinine (mg/dL) Date Value 01/25/2024 1.30 07/29/2023 1.35 01/23/2023 1.27 09/23/2021 1.18 09/02/2021 1.31 08/05/2021 1.68 Bilirubin, Total (mg/dL) Date Value 01/25/2024 0.9 08/22/2021 1.2 ALT (U/L) Date Value 01/25/2024 20 08/22/2021 36 AST (U/L) Date Value 01/25/2024 24 08/22/2021 45 CrCl cannot be calculated (Unknown ideal weight.). ALLERGIES No Known Allergies Indication for Warfarin: Anticoagulation Episode Summary Current INR goal: 2.0-3.0 Assessment: INR result of 3.0 is therapeutic Plan: Current Warfarin Dosing As of 07/19/2024 Full warfarin instructions: 5 mg every Mon, Fri; 2.5 mg all other days Called and spoke to patient/caregiver Advised patient to continue current weekly dose as noted above Next home INR check scheduled on 08/16/2024 Patient verbalizes understanding of the plan. Patient advised to call the PAC with any medication changes, bleeding/bruising concerns, recent changes in vitamin k consumption, if any procedures are coming up, if they have been ill or in the hospital, and if they have missed any doses of warfarin. Jonathan Hawkins RPh Clinical Pharmacist, Pharmacy Anticoagulation Clinic Pharmacy Anticoagulation Clinic Pager: [phone]. [facility] Telephone encounter Note * Telephone Encounter - Lian Coulter RP - 07/05/2024 8:45 AM EST [facility] Anticoagulation Episode Summary Anticoagulation Care Providers Provider Role Specialty Phone number George Mata MD [facility] Internal Medicine [phone] Bessy Valverde is a 78 year old year old male patient being evaluated today for a Telemanagement visit. Patient is currently on the following anticoagulant(s) Warfarin. Labs PT INR (no units) Date Value 11/19/2021 2.7 biotel 11/05/2021 2.5 10/22/2021 2.8 biotel INR Home CoaguChek (no units) Date Value 07/05/2024 2.8 06/21/2024 3.3 06/07/2024 2.7 Hemoglobin (g/dL) Date Value 01/25/2024 12.2 09/23/2021 13.8 Hematocrit (%) Date Value 01/25/2024 37.8 09/23/2021 44.4 Platelet Count (k/uL) Date Value 01/25/2024 125 09/23/2021 160 Creatinine (mg/dL) Date Value 01/25/2024 1.30 07/29/2023 1.35 01/23/2023 1.27 09/23/2021 1.18 09/02/2021 1.31 08/05/2021 1.68 Bilirubin, Total (mg/dL) Date Value 01/25/2024 0.9 08/22/2021 1.2 ALT (U/L) Date Value 01/25/2024 20 08/22/2021 36 AST (U/L) Date Value 01/25/2024 24 08/22/2021 45 CrCl cannot be calculated (Unknown ideal weight.). 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 Permanent atrial fibrillation (hcc) Anticoagulation Episode Summary Current INR goal: 2.0-3.0 Assessment: INR result of 2.8 is therapeutic Plan: Current Warfarin Dosing As of 07/05/2024 Full warfarin instructions: 5 mg every Mon, Fri; 2.5 mg all other days Called and spoke to patient/caregiver Advised patient to continue current weekly dose as noted above Next home INR check scheduled on 07/19/2024 Patient verbalizes understanding of the plan. Patient denies need for refills. Patient advised to call the PAC with any medication changes, bleeding/bruising concerns, recent changes in vitamin k consumption, if any procedures are coming up, if they have been ill or in the hospital, and if they have missed any doses of warfarin. Lian Coulter RPh Clinical Pharmacist, Pharmacy Anticoagulation Clinic Pharmacy Anticoagulation Clinic Pager: [phone]. [facility]11-26-2024 Miscellaneous Notes* Telephone Encounter - Lian Coulter, [facility] - 07/05/2024 8:45 AM EST [facility] Anticoagulation Episode Summary Anticoagulation Care Providers Provider Role Specialty Phone number George Mata MD Responsible Internal Medicine [phone] Bessy Valverde is a 78 year old year old male patient being evaluated today for a Telemanagement visit. Patient is currently on the following anticoagulant(s) Warfarin. Labs PT INR (no units) Date Value 11/19/2021 2.7 biotel 11/05/2021 2.5 10/22/2021 2.8 biotel INR Home CoaguChek (no units) Date Value 07/05/2024 2.8 06/21/2024 3.3 06/07/2024 2.7 Hemoglobin (g/dL) Date Value 01/25/2024 12.2 09/23/2021 13.8 Hematocrit (%) Date Value 01/25/2024 37.8 09/23/2021 44.4 Platelet Count (k/uL) Date Value 01/25/2024 125 09/23/2021 160 Creatinine (mg/dL) Date Value 01/25/2024 1.30 07/29/2023 1.35 01/23/2023 1.27 09/23/2021 1.18 09/02/2021 1.31 08/05/2021 1.68 Bilirubin, Total (mg/dL) Date Value 01/25/2024 0.9 08/22/2021 1.2 ALT (U/L) Date Value 01/25/2024 20 08/22/2021 36 AST (U/L) Date Value 01/25/2024 24 08/22/2021 45 CrCl cannot be calculated (Unknown ideal weight.). 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 Permanent atrial fibrillation (hcc) Anticoagulation Episode Summary Current INR goal: 2.0-3.0 Assessment: INR result of 2.8 is therapeutic Plan: Current Warfarin Dosing As of 07/05/2024 Full warfarin instructions: 5 mg every Mon, Fri; 2.5 mg all other days Called and spoke to patient/caregiver Advised patient to continue current weekly dose as noted above Next home INR check scheduled on 07/19/2024 Patient verbalizes understanding of the plan. Patient denies need for refills. Patient advised to call the PAC with any medication changes, bleeding/bruising concerns, recent changes in vitamin k consumption, if any procedures are coming up, if they have been ill or in the hospital, and if they have missed any doses of warfarin. Lian Coulter ana Clinical Pharmacist, Pharmacy Anticoagulation Clinic Pharmacy Anticoagulation Clinic Pager: [phone]. documented in this encounterG[facility]11-[facility] Telephone encounter Note * Telephone Encounter - Jonathan Hawkins RP - 06/21/2024 8:27 AM EST [facility] Anticoagulation Episode Summary Anticoagulation Care Providers Provider Role Specialty Phone number George Mata MD [facility] Internal Medicine [phone] Bessy Valverde is a 78 year old year old male patient being evaluated today for a Telemanagement visit. Patient is currently on the following anticoagulant(s) Warfarin. Labs PT INR (no units) Date Value 11/19/2021 2.7 biotel 11/05/2021 2.5 10/22/2021 2.8 biotel INR Home CoaguChek (no units) Date Value 06/21/2024 3.3 06/07/2024 2.7 05/24/2024 3.0 Hemoglobin (g/dL) Date Value 01/25/2024 12.2 09/23/2021 13.8 Hematocrit (%) Date Value 01/25/2024 37.8 09/23/2021 44.4 Platelet Count (k/uL) Date Value 01/25/2024 125 09/23/2021 160 Creatinine (mg/dL) Date Value 01/25/2024 1.30 07/29/2023 1.35 01/23/2023 1.27 09/23/2021 1.18 09/02/2021 1.31 08/05/2021 1.68 Bilirubin, Total (mg/dL) Date Value 01/25/2024 0.9 08/22/2021 1.2 ALT (U/L) Date Value 01/25/2024 20 08/22/2021 36 AST (U/L) Date Value 01/25/2024 24 08/22/2021 45 CrCl cannot be calculated (Unknown ideal weight.). ALLERGIES No Known Allergies Indication for Warfarin: Anticoagulation Episode Summary Current INR goal: 2.0-3.0 Assessment: INR result of 3.3 is SUPRAtherapeutic due to: No obvious cause (patient denies medication change, grapefruit/cranberry/pomegranate/memo ingestion, OTC medication use, change in herbal/nutritional supplement, accidental overdosage, change in warfarin tablet shape or color, change in vit K consumption, recent illness (NVD, fever), any changes to general health, changes in tobacco use, or EtOH consumption) Plan: Current Warfarin Dosing As of 06/21/2024 Full warfarin instructions: 06/21: 1.25 mg; Otherwise 5 mg every Mon, Fri; 2.5 mg all other days Called and spoke to patient/caregiver Advised patient to decrease dose for 1 day only then resume weekly regimen Next home INR check scheduled on 07/05/2024 Patient verbalizes understanding of the plan. Patient advised to call the PAC with any medication changes, bleeding/bruising concerns, recent changes in vitamin k consumption, if any procedures are coming up, if they have been ill or in the hospital, and if they have missed any doses of warfarin. Jonathan Hawkins RPh Clinical Pharmacist, Pharmacy Anticoagulation Clinic Pharmacy Anticoagulation Clinic Pager: [phone]. [facility]11-12-2024 Miscellaneous Notes* Telephone Encounter - Jonathan Hawkins RPh - 06/21/2024 8:27 AM EST [facility] Anticoagulation Episode Summary Anticoagulation Care Providers Provider Role Specialty Phone number George Mata MD [facility] Internal Medicine [phone] Bessy Valverde is a 78 year old year old male patient being evaluated today for a Telemanagement visit. Patient is currently on the following anticoagulant(s) Warfarin. Labs PT INR (no units) Date Value 11/19/2021 2.7 biotel 11/05/2021 2.5 10/22/2021 2.8 biotel INR Home CoaguChek (no units) Date Value 06/21/2024 3.3 06/07/2024 2.7 05/24/2024 3.0 Hemoglobin (g/dL) Date Value 01/25/2024 12.2 09/23/2021 13.8 Hematocrit (%) Date Value 01/25/2024 37.8 09/23/2021 44.4 Platelet Count (k/uL) Date Value 01/25/2024 125 09/23/2021 160 Creatinine (mg/dL) Date Value 01/25/2024 1.30 07/29/2023 1.35 01/23/2023 1.27 09/23/2021 1.18 09/02/2021 1.31 08/05/2021 1.68 Bilirubin, Total (mg/dL) Date Value 01/25/2024 0.9 08/22/2021 1.2 ALT (U/L) Date Value 01/25/2024 20 08/22/2021 36 AST (U/L) Date Value 01/25/2024 24 08/22/2021 45 CrCl cannot be calculated (Unknown ideal weight.). ALLERGIES No Known Allergies Indication for Warfarin: Anticoagulation Episode Summary Current INR goal: 2.0-3.0 Assessment: INR result of 3.3 is SUPRAtherapeutic due to: No obvious cause (patient denies medication change, grapefruit/cranberry/pomegranate/memo ingestion, OTC medication use, change in herbal/nutritional supplement, accidental overdosage, change in warfarin tablet shape or color, change in vit K consumption, recent illness (NVD, fever), any changes to general health, changes in tobacco use, or EtOH consumption) Plan: Current Warfarin Dosing As of 06/21/2024 Full warfarin instructions: 06/21: 1.25 mg; Otherwise 5 mg every Mon, Fri; 2.5 mg all other days Called and spoke to patient/caregiver Advised patient to decrease dose for 1 day only then resume weekly regimen Next home INR check scheduled on 07/05/2024 Patient verbalizes understanding of the plan. Patient advised to call the PAC with any medication changes, bleeding/bruising concerns, recent changes in vitamin k consumption, if any procedures are coming up, if they have been ill or in the hospital, and if they have missed any doses of warfarin. Jonathan Hawkins RPh Clinical Pharmacist, Pharmacy Anticoagulation Clinic Pharmacy Anticoagulation Clinic Pager: [phone]. documented in this encounterG[facility] Telephone encounter Note * Telephone Encounter - Jonathan Hawkins RPh - 06/07/2024 8:13 AM EDT [facility] Anticoagulation Episode Summary Anticoagulation Care Providers Provider Role Specialty Phone number George Mata MD [facility] Internal Medicine [phone] Bessy Valverde is a 78 year old year old male patient being evaluated today for a Telemanagement visit. Patient is currently on the following anticoagulant(s) Warfarin. Labs PT INR (no units) Date Value 11/19/2021 2.7 biotel 11/05/2021 2.5 10/22/2021 2.8 biotel INR Home CoaguChek (no units) Date Value 06/07/2024 2.7 05/24/2024 3.0 05/10/2024 2.9 Hemoglobin (g/dL) Date Value 01/25/2024 12.2 09/23/2021 13.8 Hematocrit (%) Date Value 01/25/2024 37.8 09/23/2021 44.4 Platelet Count (k/uL) Date Value 01/25/2024 125 09/23/2021 160 Creatinine (mg/dL) Date Value 01/25/2024 1.30 07/29/2023 1.35 01/23/2023 1.27 09/23/2021 1.18 09/02/2021 1.31 08/05/2021 1.68 Bilirubin, Total (mg/dL) Date Value 01/25/2024 0.9 08/22/2021 1.2 ALT (U/L) Date Value 01/25/2024 20 08/22/2021 36 AST (U/L) Date Value 01/25/2024 24 08/22/2021 45 CrCl cannot be calculated (Unknown ideal weight.). ALLERGIES No Known Allergies Indication for Warfarin: Anticoagulation Episode Summary Current INR goal: 2.0-3.0 Assessment: INR result of 2.7 is therapeutic Plan: Current Warfarin Dosing As of 06/07/2024 Full warfarin instructions: 5 mg every Mon, Fri; 2.5 mg all other days Called and spoke to patient/caregiver Advised patient to continue current weekly dose as noted above Next home INR check scheduled on 06/21/2024 Patient verbalizes understanding of the plan. Patient advised to call the PAC with any medication changes, bleeding/bruising concerns, recent changes in vitamin k consumption, if any procedures are coming up, if they have been ill or in the hospital, and if they have missed any doses of warfarin. Jonathan Hawkins RPh Clinical Pharmacist, Pharmacy Anticoagulation Clinic Pharmacy Anticoagulation Clinic Pager: [phone]. [facility]10-29-[facility] Miscellaneous Notes* Telephone Encounter - Jonathan Hawkins RPh - 06/07/2024 8:13 AM EDT [facility] Antico[facility] Anticoagulation Episode Summary Anticoagulation Care Providers Provider Role Specialty Phone number George Mata MD [facility] Internal Medicine [phone] Bessy Valverde is a 78 year old year old male patient being evaluated today for a Telemanagement visit. Patient is currently on the following anticoagulant(s) Warfarin. Labs PT INR (no units) Date Value 11/19/2021 2.7 biotel 11/05/2021 2.5 10/22/2021 2.8 biotel INR Home CoaguChek (no units) Date Value 06/07/2024 2.7 05/24/2024 3.0 05/10/2024 2.9 Hemoglobin (g/dL) Date Value 01/25/2024 12.2 09/23/2021 13.8 Hematocrit (%) Date Value 01/25/2024 37.8 09/23/2021 44.4 Platelet Count (k/uL) Date Value 01/25/2024 125 09/23/2021 160 Creatinine (mg/dL) Date Value 01/25/2024 1.30 07/29/2023 1.35 01/23/2023 1.27 09/23/2021 1.18 09/02/2021 1.31 08/05/2021 1.68 Bilirubin, Total (mg/dL) Date Value 01/25/2024 0.9 08/22/2021 1.2 ALT (U/L) Date Value 01/25/2024 20 08/22/2021 36 AST (U/L) Date Value 01/25/2024 24 08/22/2021 45 CrCl cannot be calculated (Unknown ideal weight.). ALLERGIES No Known Allergies Indication for Warfarin: Anticoagulation Episode Summary Current INR goal: 2.0-3.0 Assessment: INR result of 2.7 is therapeutic Plan: Current Warfarin Dosing As of 06/07/2024 Full warfarin instructions: 5 mg every Mon, Fri; 2.5 mg all other days Called and spoke to patient/caregiver Advised patient to continue current weekly dose as noted above Next home INR check scheduled on 06/21/2024 Patient verbalizes understanding of the plan. Patient advised to call the PAC with any medication changes, bleeding/bruising concerns, recent changes in vitamin k consumption, if any procedures are coming up, if they have been ill or in the hospital, and if they have missed any doses of warfarin. Jonathan Hawkins RPh Clinical Pharmacist, Pharmacy Anticoagulation Clinic Pharmacy Anticoagulation Clinic Pager: [phone]. documented in this encounterG[facility]10[facility] Telephone encounter Note * Telephone Encounter - Jonathan Hawkins RPh - 05/24/2024 7:59 AM EDT [facility] Anticoagulation Episode Summary Anticoagulation Care Providers Provider Role Specialty Phone number George Mata MD [facility] Internal Medicine [phone] Bessy Valverde is a 78 year old year old male patient being evaluated today for a Telemanagement visit. Patient is currently on the following anticoagulant(s) Warfarin. Labs PT INR (no units) Date Value 11/19/2021 2.7 biotel 11/05/2021 2.5 10/22/2021 2.8 biotel INR Home CoaguChek (no units) Date Value 05/24/2024 3.0 05/10/2024 2.9 04/26/2024 3.8 Hemoglobin (g/dL) Date Value 01/25/2024 12.2 09/23/2021 13.8 Hematocrit (%) Date Value 01/25/2024 37.8 09/23/2021 44.4 Platelet Count (k/uL) Date Value 01/25/2024 125 09/23/2021 160 Creatinine (mg/dL) Date Value 01/25/2024 1.30 07/29/2023 1.35 01/23/2023 1.27 09/23/2021 1.18 09/02/2021 1.31 08/05/2021 1.68 Bilirubin, Total (mg/dL) Date Value 01/25/2024 0.9 08/22/2021 1.2 ALT (U/L) Date Value 01/25/2024 20 08/22/2021 36 AST (U/L) Date Value 01/25/2024 24 08/22/2021 45 CrCl cannot be calculated (Unknown ideal weight.). ALLERGIES No Known Allergies Indication for Warfarin: Anticoagulation Episode Summary Current INR goal: 2.0-3.0 Assessment: INR result of 3.0 is therapeutic Plan: Current Warfarin Dosing As of 05/24/2024 Full warfarin instructions: 5 mg every Mon, Fri; 2.5 mg all other days Called and spoke to patient/caregiver Advised patient to continue current weekly dose as noted above Next home INR check scheduled on 06/07/2024 Patient verbalizes understanding of the plan. Patient advised to call the PAC with any medication changes, bleeding/bruising concerns, recent changes in vitamin k consumption, if any procedures are coming up, if they have been ill or in the hospital, and if they have missed any doses of warfarin. Jonathan Hawkins RPh Clinical Pharmacist, Pharmacy Anticoagulation Clinic Pharmacy Anticoagulation Clinic Pager: [phone]. [facility]10[facility] Miscellaneous Notes* Telephone Encounter - Jonathan Hawkins RPh - 05/24/2024 7:59 AM EDT [facility] Antico[facility] Anticoagulation Episode Summary Anticoagulation Care Providers Provider Role Specialty Phone number MataGeorge gerber MD [facility] Internal Medicine [phone] Bessy Valverde is a 78 year old year old male patient being evaluated today for a Telemanagement visit. Patient is currently on the following anticoagulant(s) Warfarin. Labs PT INR (no units) Date Value 11/19/2021 2.7 biotel 11/05/2021 2.5 10/22/2021 2.8 biotel INR Home CoaguChek (no units) Date Value 05/24/2024 3.0 05/10/2024 2.9 04/26/2024 3.8 Hemoglobin (g/dL) Date Value 01/25/2024 12.2 09/23/2021 13.8 Hematocrit (%) Date Value 01/25/2024 37.8 09/23/2021 44.4 Platelet Count (k/uL) Date Value 01/25/2024 125 09/23/2021 160 Creatinine (mg/dL) Date Value 01/25/2024 1.30 07/29/2023 1.35 01/23/2023 1.27 09/23/2021 1.18 09/02/2021 1.31 08/05/2021 1.68 Bilirubin, Total (mg/dL) Date Value 01/25/2024 0.9 08/22/2021 1.2 ALT (U/L) Date Value 01/25/2024 20 08/22/2021 36 AST (U/L) Date Value 01/25/2024 24 08/22/2021 45 CrCl cannot be calculated (Unknown ideal weight.). ALLERGIES No Known Allergies Indication for Warfarin: Anticoagulation Episode Summary Current INR goal: 2.0-3.0 Assessment: INR result of 3.0 is therapeutic Plan: Current Warfarin Dosing As of 05/24/2024 Full warfarin instructions: 5 mg every Mon, Fri; 2.5 mg all other days Called and spoke to patient/caregiver Advised patient to continue current weekly dose as noted above Next home INR check scheduled on 06/07/2024 Patient verbalizes understanding of the plan. Patient advised to call the PAC with any medication changes, bleeding/bruising concerns, recent changes in vitamin k consumption, if any procedures are coming up, if they have been ill or in the hospital, and if they have missed any doses of warfarin. Jonathan Hawkins RPh Clinical Pharmacist, Pharmacy Anticoagulation Clinic Pharmacy Anticoagulation Clinic Pager: [phone]. documented in this encounterGlen[facility]10[facility] Telephone encounter Note * Telephone Encounter - Elliott Gleason RPh - 05/10/2024 8:01 AM EDT [facility] Anticoagulation Episode Summary Anticoagulation Care Providers Provider Role Specialty Phone number George Mata MD [facility] Internal Medicine [phone] Bessy Valverde is a 78 year old year old male patient being evaluated today for a Telemanagement visit. Patient is currently on the following anticoagulant(s) Warfarin. Labs PT INR (no units) Date Value 11/19/2021 2.7 biotel 11/05/2021 2.5 10/22/2021 2.8 biotel INR Home CoaguChek (no units) Date Value 05/10/2024 2.9 04/26/2024 3.8 04/12/2024 2.7 Hemoglobin (g/dL) Date Value 01/25/2024 12.2 09/23/2021 13.8 Hematocrit (%) Date Value 01/25/2024 37.8 09/23/2021 44.4 Platelet Count (k/uL) Date Value 01/25/2024 125 09/23/2021 160 Creatinine (mg/dL) Date Value 01/25/2024 1.30 07/29/2023 1.35 01/23/2023 1.27 09/23/2021 1.18 09/02/2021 1.31 08/05/2021 1.68 Bilirubin, Total (mg/dL) Date Value 01/25/2024 0.9 08/22/2021 1.2 ALT (U/L) Date Value 01/25/2024 20 08/22/2021 36 AST (U/L) Date Value 01/25/2024 24 08/22/2021 45 CrCl cannot be calculated (Unknown ideal weight.). 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 Patient denies need for refills. Elliott Gleason RPh Clinical Pharmacist, Pharmacy Anticoagulation Clinic Pharmacy Anticoagulation Clinic Pager: [phone]. [facility]10[facility] Miscellaneous Notes* Telephone Encounter - Elliott Gleason RPh - 05/10/2024 8:01 AM EDT [facility] Anticoagulation Episode Summary Anticoagulation Care Providers Provider Role Specialty Phone number eGorge Mata MD Responsible Internal Medicine [phone] Bessy Valverde is a 78 year old year old male patient being evaluated today for a Telemanagement visit. Patient is currently on the following anticoagulant(s) Warfarin. Labs PT INR (no units) Date Value 11/19/2021 2.7 biotel 11/05/2021 2.5 10/22/2021 2.8 biotel INR Home CoaguChek (no units) Date Value 05/10/2024 2.9 04/26/2024 3.8 04/12/2024 2.7 Hemoglobin (g/dL) Date Value 01/25/2024 12.2 09/23/2021 13.8 Hematocrit (%) Date Value 01/25/2024 37.8 09/23/2021 44.4 Platelet Count (k/uL) Date Value 01/25/2024 125 09/23/2021 160 Creatinine (mg/dL) Date Value 01/25/2024 1.30 07/29/2023 1.35 01/23/2023 1.27 09/23/2021 1.18 09/02/2021 1.31 08/05/2021 1.68 Bilirubin, Total (mg/dL) Date Value 01/25/2024 0.9 08/22/2021 1.2 ALT (U/L) Date Value 01/25/2024 20 08/22/2021 36 AST (U/L) Date Value 01/25/2024 24 08/22/2021 45 CrCl cannot be calculated (Unknown ideal weight.). 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 Patient denies need for refills. Elliott Gleason [facility] Clinical Pharmacist, Pharmacy Anticoagulation [facility] Pager: [phone]. documented in this encounterG[facility] Telephone encounter Note * Telephone Encounter - Lian Coulter [facility] - 04/26/2024 9:33 AM EDT [facility] Anticoagulation Episode Summary Anticoagulation Care Providers Provider Role Specialty Phone number George Mata MD Responsible Internal Medicine [phone] Bessy Valverde is a 78 year old year old male patient being evaluated today for a Telemanagement visit. Patient is currently on the following anticoagulant(s) Warfarin. Labs PT INR (no units) Date Value 11/19/2021 2.7 biotel 11/05/2021 2.5 10/22/2021 2.8 biotel INR Home CoaguChek (no units) Date Value 04/26/2024 3.8 04/12/2024 2.7 03/29/2024 2.5 Hemoglobin (g/dL) Date Value 01/25/2024 12.2 09/23/2021 13.8 Hematocrit (%) Date Value 01/25/2024 37.8 09/23/2021 44.4 Platelet Count (k/uL) Date Value 01/25/2024 125 09/23/2021 160 Creatinine (mg/dL) Date Value 01/25/2024 1.30 07/29/2023 1.35 01/23/2023 1.27 09/23/2021 1.18 09/02/2021 1.31 08/05/2021 1.68 Bilirubin, Total (mg/dL) Date Value 01/25/2024 0.9 08/22/2021 1.2 ALT (U/L) Date Value 01/25/2024 20 08/22/2021 36 AST (U/L) Date Value 01/25/2024 24 08/22/2021 45 CrCl cannot be calculated (Unknown ideal weight.). 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 Patient denies need for refills. Lian Coulter RPh Clinical Pharmacist, Pharmacy Anticoagulation Clinic Pharmacy Anticoagulation Clinic Pager: [phone]. [facility]09[facility] Miscellaneous Notes* Telephone Encounter - Lian Coulter RPh - 04/26/2024 9:33 AM EDT [facility] Anticoagulation Episode Summary Anticoagulation Care Providers Provider Role Specialty Phone number George Mata MD [facility] Internal Medicine [phone] Bessy Valverde is a 78 year old year old male patient being evaluated today for a Telemanagement visit. Patient is currently on the following anticoagulant(s) Warfarin. Labs PT INR (no units) Date Value 11/19/2021 2.7 biotel 11/05/2021 2.5 10/22/2021 2.8 biotel INR Home CoaguChek (no units) Date Value 04/26/2024 3.8 04/12/2024 2.7 03/29/2024 2.5 Hemoglobin (g/dL) Date Value 01/25/2024 12.2 09/23/2021 13.8 Hematocrit (%) Date Value 01/25/2024 37.8 09/23/2021 44.4 Platelet Count (k/uL) Date Value 01/25/2024 125 09/23/2021 160 Creatinine (mg/dL) Date Value 01/25/2024 1.30 07/29/2023 1.35 01/23/2023 1.27 09/23/2021 1.18 09/02/2021 1.31 08/05/2021 1.68 Bilirubin, Total (mg/dL) Date Value 01/25/2024 0.9 08/22/2021 1.2 ALT (U/L) Date Value 01/25/2024 20 08/22/2021 36 AST (U/L) Date Value 01/25/2024 24 08/22/2021 45 CrCl cannot be calculated (Unknown ideal weight.). 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 Patient denies need for refills. Lian Coulter [facility] Clinical Pharmacist, Pharmacy Anticoagulation Clinic Pharmacy Anticoagulation Clinic Pager: [phone]. documented in this encounterGlenbeigh Hospital09-03-2024 Telephone encounter Note * Telephone Encounter - Lian Coulter RPh - 04/12/2024 8:57 AM EDT [facility] Anticoagulation Episode Summary Anticoagulation Care Providers Provider Role Specialty Phone number George Mata MD [facility] Internal Medicine [phone] Bessy Valverde is a 78 year old year old male patient being evaluated today for a Telemanagement visit. Patient is currently on the following anticoagulant(s) Warfarin. Labs PT INR (no units) Date Value 11/19/2021 2.7 biotel 11/05/2021 2.5 10/22/2021 2.8 biotel INR Home CoaguChek (no units) Date Value 04/12/2024 2.7 03/29/2024 2.5 03/15/2024 2.7 Hemoglobin (g/dL) Date Value 01/25/2024 12.2 09/23/2021 13.8 Hematocrit (%) Date Value 01/25/2024 37.8 09/23/2021 44.4 Platelet Count (k/uL) Date Value 01/25/2024 125 09/23/2021 160 Creatinine (mg/dL) Date Value 01/25/2024 1.30 07/29/2023 1.35 01/23/2023 1.27 09/23/2021 1.18 09/02/2021 1.31 08/05/2021 1.68 Bilirubin, Total (mg/dL) Date Value 01/25/2024 0.9 08/22/2021 1.2 ALT (U/L) Date Value 01/25/2024 20 08/22/2021 36 AST (U/L) Date Value 01/25/2024 24 08/22/2021 45 CrCl cannot be calculated (Unknown ideal weight.). 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 Patient denies need for refills. Lian Coulter RPh Clinical Pharmacist, Pharmacy Anticoagulation Clinic Pharmacy Anticoagulation Clinic Pager: [phone]. [facility]09[facility] Miscellaneous Notes* Telephone Encounter - Lian Coulter RPh - 04/12/2024 8:57 AM EDT [facility] Anticoagulation Episode Summary Anticoagulation Care Providers Provider Role Specialty Phone number George Mata MD [facility] Internal Medicine [phone] Bessy Valverde is a 78 year old year old male patient being evaluated today for a Telemanagement visit. Patient is currently on the following anticoagulant(s) Warfarin. Labs PT INR (no units) Date Value 11/19/2021 2.7 biotel 11/05/2021 2.5 10/22/2021 2.8 biotel INR Home CoaguChek (no units) Date Value 04/12/2024 2.7 03/29/2024 2.5 03/15/2024 2.7 Hemoglobin (g/dL) Date Value 01/25/2024 12.2 09/23/2021 13.8 Hematocrit (%) Date Value 01/25/2024 37.8 09/23/2021 44.4 Platelet Count (k/uL) Date Value 01/25/2024 125 09/23/2021 160 Creatinine (mg/dL) Date Value 01/25/2024 1.30 07/29/2023 1.35 01/23/2023 1.27 09/23/2021 1.18 09/02/2021 1.31 08/05/2021 1.68 Bilirubin, Total (mg/dL) Date Value 01/25/2024 0.9 08/22/2021 1.2 ALT (U/L) Date Value 01/25/2024 20 08/22/2021 36 AST (U/L) Date Value 01/25/2024 24 08/22/2021 45 CrCl cannot be calculated (Unknown ideal weight.). 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 Patient denies need for refills. Lian Coulter [facility] Clinical Pharmacist, Pharmacy Anticoagulation Clinic Pharmacy Anticoagulation Clinic Pager: [phone]. documented in this encounterGlenbeigh Hospital08-20-2024 Telephone encounter Note * Telephone Encounter - Jonathan Hawkins RPh - 03/29/2024 7:56 AM EDT [facility] Anticoagulation Episode Summary Anticoagulation Care Providers Provider Role Specialty Phone number George Mata MD Responsible Internal Medicine [phone] Bessy Valverde is a 78 year old year old male patient being evaluated today for a Telemanagement visit. Patient is currently on the following anticoagulant(s) Warfarin. Labs PT INR (no units) Date Value 11/19/2021 2.7 biotel 11/05/2021 2.5 10/22/2021 2.8 biotel INR Home CoaguChek (no units) Date Value 03/29/2024 2.5 03/15/2024 2.7 03/08/2024 1.9 Hemoglobin (g/dL) Date Value 01/25/2024 12.2 09/23/2021 13.8 Hematocrit (%) Date Value 01/25/2024 37.8 09/23/2021 44.4 Platelet Count (k/uL) Date Value 01/25/2024 125 09/23/2021 160 Creatinine (mg/dL) Date Value 01/25/2024 1.30 07/29/2023 1.35 01/23/2023 1.27 09/23/2021 1.18 09/02/2021 1.31 08/05/2021 1.68 Bilirubin, Total (mg/dL) Date Value 01/25/2024 0.9 08/22/2021 1.2 ALT (U/L) Date Value 01/25/2024 20 08/22/2021 36 AST (U/L) Date Value 01/25/2024 24 08/22/2021 45 CrCl cannot be calculated (Unknown ideal weight.). ALLERGIES No Known Allergies Indication for Warfarin: Anticoagulation Episode Summary Current INR goal: 2.0-3.0 Assessment: INR result of 2.5 is therapeutic Plan: Current Warfarin Dosing As of 03/29/2024 Full warfarin instructions: 5 mg every Mon, Fri; 2.5 mg all other days Left voice message Advised patient to continue current weekly dose as noted above Next home INR check scheduled on 04/12/2024 Jonathan Hawkins RPh Clinical Pharmacist, Pharmacy Anticoagulation Clinic Pharmacy Anticoagulation Clinic Pager: [phone]. [facility]08[facility] Miscellaneous Notes* Telephone Encounter - Jonathan Hawkins RPh - 03/29/2024 7:56 AM EDT [facility] Anticoagulation Episode Summary Anticoagulation Care Providers Provider Role Specialty Phone number George Mata MD Responsible Internal Medicine [phone] Bessy Valverde is a 78 year old year old male patient being evaluated today for a Telemanagement visit. Patient is currently on the following anticoagulant(s) Warfarin. Labs PT INR (no units) Date Value 11/19/2021 2.7 biotel 11/05/2021 2.5 10/22/2021 2.8 biotel INR Home CoaguChek (no units) Date Value 03/29/2024 2.5 03/15/2024 2.7 03/08/2024 1.9 Hemoglobin (g/dL) Date Value 01/25/2024 12.2 09/23/2021 13.8 Hematocrit (%) Date Value 01/25/2024 37.8 09/23/2021 44.4 Platelet Count (k/uL) Date Value 01/25/2024 125 09/23/2021 160 Creatinine (mg/dL) Date Value 01/25/2024 1.30 07/29/2023 1.35 01/23/2023 1.27 09/23/2021 1.18 09/02/2021 1.31 08/05/2021 1.68 Bilirubin, Total (mg/dL) Date Value 01/25/2024 0.9 08/22/2021 1.2 ALT (U/L) Date Value 01/25/2024 20 08/22/2021 36 AST (U/L) Date Value 01/25/2024 24 08/22/2021 45 CrCl cannot be calculated (Unknown ideal weight.). ALLERGIES No Known Allergies Indication for Warfarin: Anticoagulation Episode Summary Current INR goal: 2.0-3.0 Assessment: INR result of 2.5 is therapeutic Plan: Current Warfarin Dosing As of 03/29/2024 Full warfarin instructions: 5 mg every Mon, Fri; 2.5 mg all other days Left voice message Advised patient to continue current weekly dose as noted above Next home INR check scheduled on 04/12/2024 Jonathan Hawkins RPh Clinical Pharmacist, Pharmacy Anticoagulation Clinic Pharmacy Anticoagulation Clinic Pager: [phone]. documented in this encounterGlen[facility] Hospital08-[facility] Telephone encounter Note * Telephone Encounter - Malu Ceja LPN - 03/16/2024 3:34 PM EDT The patient has been identified by name and date of : Yes Caregiver verified no other encounters exist for this prescription request: Yes Caregiver confirmed with patient/requestor that no other refills are due, in the near future, with this provider at this time: Yes The last office visit in the department: 03/09/2024 Does the patient have a future office visit with this provider/department: Yes 07/27/2024 Requested Prescriptions Pending Prescriptions Disp Refills albuterol HFA (VENTOLIN HFA) 90 mcg/actuation inhaler 18 g 0 Sig: USE 2 INHALATIONS 4 TIMES A DAY IF NEEDED Malu Ceja LPN March 16, 2024 3:34 PM [facility]08-[facility] Miscellaneous Notes* Telephone Encounter - Malu Ceja LPN - 03/16/2024 3:34 PM EDT The patient has been identified by name and date of : Yes Caregiver verified no other encounters exist for this prescription request: Yes Caregiver confirmed with patient/requestor that no other refills are due, in the near future, with this provider at this time: Yes The last office visit in the department: 03/09/2024 Does the patient have a future office visit with this provider/department: Yes 07/27/2024 Requested Prescriptions Pending Prescriptions Disp Refills albuterol HFA (VENTOLIN HFA) 90 mcg/actuation inhaler 18 g 0 Sig: USE 2 INHALATIONS 4 TIMES A DAY IF NEEDED Malu Ceja LPN March 16, 2024 3:34 PM documented in this encounterGlen[facility] Hospital08-[facility]-2024 Telephone encounter Note * Telephone Encounter - Jordyn Garcia [facility] - 03/15/2024 8:01 AM EDT [facility] Anticoagulation Episode Summary Anticoagulation Care Providers Provider Role Specialty Phone number George Mata MD Responsible Internal Medicine [phone] Bessy Valverde is a 78 year old year old male patient being evaluated today for a Telemanagement visit. Patient is currently on the following anticoagulant(s) Warfarin. Labs PT INR (no units) Date Value 11/19/2021 2.7 biotel 11/05/2021 2.5 10/22/2021 2.8 biotel INR Home CoaguChek (no units) Date Value 03/15/2024 2.7 03/08/2024 1.9 03/01/2024 2.7 Hemoglobin (g/dL) Date Value 01/25/2024 12.2 09/23/2021 13.8 Hematocrit (%) Date Value 01/25/2024 37.8 09/23/2021 44.4 Platelet Count (k/uL) Date Value 01/25/2024 125 09/23/2021 160 Creatinine (mg/dL) Date Value 01/25/2024 1.30 07/29/2023 1.35 01/23/2023 1.27 09/23/2021 1.18 09/02/2021 1.31 08/05/2021 1.68 Bilirubin, Total (mg/dL) Date Value 01/25/2024 0.9 08/22/2021 1.2 ALT (U/L) Date Value 01/25/2024 20 08/22/2021 36 AST (U/L) Date Value 01/25/2024 24 08/22/2021 45 CrCl cannot be calculated (Unknown ideal weight.). ALLERGIES No Known Allergies Indication for Warfarin: Anticoagulation Episode Summary Current INR goal: 2.0-3.0 Assessment: INR result of 2.7 is therapeutic Plan: Current Warfarin Dosing As of 03/15/2024 Full warfarin instructions: 5 mg every Mon, Fri; 2.5 mg all other days Called and spoke to patient/caregiver Advised patient to continue current weekly dose as noted above Next home INR check scheduled on 03/28/2024 Patient verbalizes understanding of the plan. Patient denies need for refills. Jordyn Garcia RPh Clinical Pharmacist, Pharmacy Anticoagulation Clinic Pharmacy Anticoagulation Clinic Pager: [phone]. [facility]08-[facility] Miscellaneous Notes* Telephone Encounter - Jordyn Garcia RPh - 03/15/2024 8:01 AM EDT [facility] Anticoagulation Episode Summary Anticoagulation Care Providers Provider Role Specialty Phone number George Mata MD [facility] Internal Medicine [phone] Bessy Valverde is a 78 year old year old male patient being evaluated today for a Telemanagement visit. Patient is currently on the following anticoagulant(s) Warfarin. Labs PT INR (no units) Date Value 11/19/2021 2.7 biotel 11/05/2021 2.5 10/22/2021 2.8 biotel INR Home CoaguChek (no units) Date Value 03/15/2024 2.7 03/08/2024 1.9 03/01/2024 2.7 Hemoglobin (g/dL) Date Value 01/25/2024 12.2 09/23/2021 13.8 Hematocrit (%) Date Value 01/25/2024 37.8 09/23/2021 44.4 Platelet Count (k/uL) Date Value 01/25/2024 125 09/23/2021 160 Creatinine (mg/dL) Date Value 01/25/2024 1.30 07/29/2023 1.35 01/23/2023 1.27 09/23/2021 1.18 09/02/2021 1.31 08/05/2021 1.68 Bilirubin, Total (mg/dL) Date Value 01/25/2024 0.9 08/22/2021 1.2 ALT (U/L) Date Value 01/25/2024 20 08/22/2021 36 AST (U/L) Date Value 01/25/2024 24 08/22/2021 45 CrCl cannot be calculated (Unknown ideal weight.). ALLERGIES No Known Allergies Indication for Warfarin: Anticoagulation Episode Summary Current INR goal: 2.0-3.0 Assessment: INR result of 2.7 is therapeutic Plan: Current Warfarin Dosing As of 03/15/2024 Full warfarin instructions: 5 mg every Mon, Fri; 2.5 mg all other days Called and spoke to patient/caregiver Advised patient to continue current weekly dose as noted above Next home INR check scheduled on 03/28/2024 Patient verbalizes understanding of the plan. Patient denies need for refills. Jordyn Garcia RPh Clinical Pharmacist, Pharmacy Anticoagulation Clinic Pharmacy Anticoagulation Clinic Pager: [phone]. documented in this encounterGlen[facility]igh Hospital07-31-2024 NoteHNO ID: [id number] Author: GEORGE MATA MD Service: ? Author Type: Physician Type: Progress Notes Filed: 03/09/2024 15:38 Note Text: This note was created using M/[employer] Technology Solutionsriter. Subjective Bessy Valverde is a 78 year old male. He scraped his left arm 1.5 weeks ago, and sustained a skin tear. There was oozing so he applied a bandage over the weekend that has dried up and adhered. His asthma was worsening as it typically did when ragweed was up. Diabetes was increasing. 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 Review of Systems Constitutional: Negative for fatigue, fever and unexpected weight change. HENT: Positive for congestion and sneezing. Eyes: Positive for itching. Respiratory: Positive for cough, shortness of breath and wheezing. Cardiovascular: Positive for leg swelling. Negative for chest pain and palpitations. Gastrointestinal: Negative for constipation and diarrhea. Skin: Positive for wound. Neurological: Negative for dizziness and headaches. 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 Disease, Without Long-Term Current Use of Insulin (Hcc) Aortic Valve Stenosis Chronic Systolic Heart Failure (Hcc) Mcc (Current) Use of Anticoagulants 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 Rinse mouth out after use with water. atorvastatin (LIPITOR) 40 mg tablet Take 1 tablet by mouth once daily. pantoprazole DR (PROTONIX) 20 mg tablet Take 1 tablet by mouth daily before breakfast. Take on empty stomach, 1/2 hr before meal. myidizxkj-djjmeb-stljemth-scop () 16.2-0.1037 -0.0194 mg per tablet Take 1 tablet by mouth every 6 hours as needed. nitroglycerin sublingual (NITROSTAT) 0.4 mg SL tablet Dissolve 1 tablet under the tongue as needed. DISSOLVE ON TONGUE FOR CHEST PAIN. IF NO PAIN RELIEF, CALL 911 bumetanide (BUMEX) 1 mg tablet One tablet every other day; OR daily, depending on weight gain, fluid retention. ENTRESTO 24-26 mg tablet Take 1 tablet by mouth twice daily. sotalol (BETAPACE) 80 mg tablet Take 2 tablets by mouth twice daily. spironolactone (ALDACTONE) 25 mg tablet Take 25 mg by mouth once daily. LOW-DOSE ASPIRIN ORAL Take 1 tablet by mouth once daily. blood sugar diagnostic (BLOOD GLUCOSE TEST) test strip Test blood sugar(s) one times daily. Dx: Type 2 DM - Controlled E11.9 Insulin: No Blood-Glucose Meter monitoring kit Glucose Meter of Choice - Kit - Dx: Type 2 DM - Controlled E11.9 No current facility-administered medications for this visit. Objective BP 104/62 (BP Site: Right Arm, BP Position: Sitting, BP Cuff Size: Large Adult) Pulse 64 Temp 36.2 ?C (97.1 ?F) (Temporal) Resp 18 Wt 80.7 kg (178 lb) BMI 26.59 kg/m? Physical Exam Constitutional: General: He is not in acute distress. Appearance: He is not ill-appearing. HENT: Head: Normocephalic. Cardiovascular: Rate and Rhythm: Rhythm irregular. Heart sounds: S1 normal and S2 normal. Murmur heard. Systolic murmur is present with a grade of 1/6. Pulmonary: Effort: No respiratory distress. Breath sounds: Rales present. No wheezing or rhonchi. Abdominal: Palpations: Abdomen is soft. Tenderness: There is no abdominal tenderness. Musculoskeletal: Right lower le+ Pitting Edema present. Left lower le+ Pitting Edema present. Skin: Comments: Left elbow with zaheer shaped skin tear, moist, no infection, no bleeding or oozing. Neurological: General: No focal deficit present. Mental Status: He is alert. Latest Ref Rng 01/25/2024 Protein, Total 6.3 - 8.0 g/dL 6.8 Albumin 3.9 - 4.9 g/dL 3.9 Calcium 8.5 - 10.2 mg/dL 10.4 (H) Bilirubin, Total 0.2 - 1.3 mg/dL 0.9 Alkaline Phosphatase 38 - 113 U/L 66 AST 14 - 40 U/L 24 ALT 10 - 54 U/L 20 Glucose 74 - 99 mg/dL 139 (H) BUN 9 - 24 mg/dL 34 (H) Creatinine 0.73 - 1.22 mg/dL 1.30 (H) Sodium 136 - 144 mmol/L 135 (L) Potassium 3.7 - 5.1 mmol/L 4.5 Chloride 98 - 107 mmol/L 101 CO2 22 - 30 mmol/L 24 An (more content not included)...[facility]07-31-2024 History of Present illness Narrative* George Mata MD - 03/09/2024 3:05 PM EDT This note was created using [employer]. Subjective Bessy Valverde is a 78 year old male. He scraped his left arm 1.5 weeks ago, and sustained a skin tear. There was oozing so he applied a bandage over the weekend that has dried up and adhered. His asthma was worsening as it typically did when ragweed was up. Diabetes was increasing. 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 Review of Systems Constitutional: Negative for fatigue, fever and unexpected weight change. HENT: Positive for congestion and sneezing. Eyes: Positive for itching. Respiratory: Positive for cough, shortness of breath and wheezing. Cardiovascular: Positive for leg swelling. Negative for chest pain and palpitations. Gastrointestinal: Negative for constipation and diarrhea. Skin: Positive for wound. Neurological: Negative for dizziness and headaches. 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 Rinse mouth out after use with water. atorvastatin (LIPITOR) 40 mg tablet Take 1 tablet by mouth once daily. pantoprazole DR (PROTONIX) 20 mg tablet Take 1 tablet by mouth daily before breakfast. Take on empty stomach, 1/2 hr before meal. ldmemsmsp-ggsmrt-wcensrzd-scop () 16.2-0.1037 -0.0194 mg per tablet Take 1 tablet by mouth every 6 hours as needed. nitroglycerin sublingual (NITROSTAT) 0.4 mg SL tablet Dissolve 1 tablet under the tongue as needed.DISSOLVE ON TONGUE FOR CHEST PAIN. IF NO PAIN RELIEF, CALL 911 bumetanide (BUMEX) 1 mg tablet One tablet every other day; OR daily, depending on weight gain, fluid retention. ENTRESTO 24-26 mg tablet Take 1 tablet by mouth twice daily. sotalol (BETAPACE) 80 mg tablet Take 2 tablets by mouth twice daily. spironolactone (ALDACTONE) 25 mg tablet Take 25 mg by mouth once daily. LOW-DOSE ASPIRIN ORAL Take 1 tablet by mouth once daily. blood sugar diagnostic (BLOOD GLUCOSE TEST) test strip Test blood sugar(s) one times daily. Dx: Type 2 DM - Controlled E11.9 Insulin: No Blood-Glucose Meter monitoring kit Glucose Meter of Choice - Kit - Dx: Type 2 DM - Controlled E11.9 No current facility-administered medications for this visit. Objective BP 104/62 (BP Site: Right Arm, BP Position: Sitting, BP Cuff Size: Large Adult) Pulse 64 Temp 36.2 C (97.1 F) (Temporal) Resp 18 Wt 80.7 kg (178 lb) BMI 26.59 kg/m Physical Exam Constitutional: General: He is not in acute distress. Appearance: He is not ill-appearing. HENT: Head: Normocephalic. Cardiovascular: Rate and Rhythm: Rhythm irregular. Heart sounds: S1 normal and S2 normal. Murmur heard. Systolic murmur is present with a grade of 1/6. Pulmonary: Effort: No respiratory distress. Breath sounds: Rales present. No wheezing or rhonchi. Abdominal: Palpations: Abdomen is soft. Tenderness: There is no abdominal tenderness. Musculoskeletal: Right lower le+ Pitting Edema present. Left lower le+ Pitting Edema present. Skin: Comments: Left elbow with zaheer shaped skin tear, moist, no infection, no bleeding or oozing. Neurological: General: No focal deficit present. Mental Status: He is alert. Latest Ref [facility] 01/25/2024 Protein, Total 6.3 - 8.0 g/dL 6.8 Albumin 3.9 - 4.9 g/dL 3.9 Calcium 8.5 - 10.2 mg/dL 10.4 (H) Bilirubin, Total 0.2 - 1.3 mg/dL 0.9 Alkaline Phosphatase 38 - 113 U/L 66 AST 14 - 40 U/L 24 ALT 10 - 54 U/L 20 Glucose 74 - 99 mg/dL 139 (H) BUN 9 - 24 mg/dL 34 (H) Creatinine 0.73 - 1.22 mg/dL 1.30 (H) Sodium 136 - 144 mmol/L 135 (L) Potassium 3.7 - 5.1 mmol/L 4.5 Chloride 98 - 107 mmol/L 101 CO2 22 - 30 mmol/L 24 Anion Gap 8 - 15 mmol/L 10 eGFR >=60 mL/min/1.73m 56 (L) WBC 3.70 - 11.00 k/uL 7.85 RBC 4.20 - 6.00 m/uL 4.12 (L) Hemoglobin 13.0 - 17.0 g/dL 12.2 (L) Hematocrit 39.0 - 51.0 % 37.8 (L) MCV 80.0 - 100.0 fL 91.7 MCH 26.0 - 34.0 pg 29.6 MCHC 30.5 - 36.0 g/dL 32.3 RDW-CV 11.5 - 15.0 % 15.0 Platelet Count 150 - 400 k/uL 125 (L) MPV 9.0 - 12.7 fL 11.7 Absolute nRBC <0.01 k/uL <0.01 Creatinine, Ur Random (UCRR) 20.0 - 300.0 mg/dL 186.3 Albumin, Urine Random mg/L 40.9 Albumin/Creat Ratio <30 mg/g 22 Hemoglobin A1C 4.3 - 5.6 % 7.4 (H) Estimated Average Glucose mg/dL 166 Legend: (H) High (L) Low Assessment and Plan 1. Controlled type 2 diabetes mellitus with stage 3 chronic kidney disease, without long-term current use of insulin (HCC) - ICD9: 250.40, 585.3, ICD10: E11.22, N18.30 (primary diagnosis) - Worsening control - Start empagliflozin (Jardiance) Discussed medication dosage, usage, goals of therapy, and side effects. - EMPAGLIFLOZIN 10 MG TABLET - COMPLETE BLOOD COUNT - HEMOGLOBIN A1C 2. Chronic systolic heart failure (HCC) - ICD9: 428.22, ICD10: I50.22 - Compensated - EMPAGLIFLOZIN 10 MG TABLET - COMPREHENSIVE METABOLIC PANEL 3. Atherosclerosis of [place] coronary artery of [place] heart without angina pectoris - ICD9: 414.01, ICD10: I25.10 Stable. 4. Pure hypercholesterolemia - ICD9: 272.0, ICD10: E78.00 Controlled. - LIPID PANEL BASIC 5. Essential hypertension - ICD9: 401.9, ICD10: I10 - Controlled - Continue current medications 6. Asthma, moderate persistent, well-controlled - ICD9: 493.90, ICD10: J45.40 - Moderate persistent asthma worse - Continue current medications - Start MONTELUKAST 10 MG TABLET 7. Interstitial lung disease (HCC) - ICD9: 515, ICD10: J84.9 - Per pulmonary. 8. Skin tear of left upper arm without complication, initial encounter - ICD9: 880.03, ICD10: S41.112A Wound care done. 9. Screening for depression - ICD9: V79.0, ICD10: Z13.31 - DEPRESSION SCREENING 10. Encounter for screening examination for other mental health and behavioral disorders - ICD9: V79.8, ICD10: Z13.39 - ANXIETY SCREENING George Mata MD documented [facility] Telephone encounter Note * Telephone Encounter - Jonathan Hawkins, [facility] - 03/08/2024 7:51 AM EDT [facility] Anticoagulation Episode Summary Anticoagulation Care Providers Provider Role Specialty Phone number George Mata MD [facility] Internal Medicine [phone] Bessy Valverde is a 78 year old year old male patient being evaluated today for a Telemanagement visit. Patient is currently on the following anticoagulant(s) Warfarin. Labs PT INR (no units) Date Value 11/19/2021 2.7 biotel 11/05/2021 2.5 10/22/2021 2.8 biotel INR Home CoaguChek (no units) Date Value 03/08/2024 1.9 03/01/2024 2.7 02/17/2024 1.8 Hemoglobin (g/dL) Date Value 01/25/2024 12.2 09/23/2021 13.8 Hematocrit (%) Date Value 01/25/2024 37.8 09/23/2021 44.4 Platelet Count (k/uL) Date Value 01/25/2024 125 09/23/2021 160 Creatinine (mg/dL) Date Value 01/25/2024 1.30 07/29/2023 1.35 01/23/2023 1.27 09/23/2021 1.18 09/02/2021 1.31 08/05/2021 1.68 Bilirubin, Total (mg/dL) Date Value 01/25/2024 0.9 08/22/2021 1.2 ALT (U/L) Date Value 01/25/2024 20 08/22/2021 36 AST (U/L) Date Value 01/25/2024 24 08/22/2021 45 CrCl cannot be calculated (Unknown ideal weight.). ALLERGIES No Known Allergies Indication for Warfarin: Anticoagulation Episode Summary Current INR goal: 2.0-3.0 Assessment: INR result of 1.9 is SUBtherapeutic due to: No obvious cause (patient denies liver, green tea, new herbal/nutritional supplements - such as Boost, Ensure, an increase in vit K foods and/or V8 type juices, any changes in warfarin tablet, or missed doses) Plan: Current Warfarin Dosing As of 03/08/2024 Full warfarin instructions: 03/08: 5 mg; Otherwise 5 mg every Mon, Fri; 2.5 mg all other days Called and spoke to patient/caregiver Advised patient to increase dose for 1 day only then resume weekly regimen Next home INR check scheduled on Patient verbalizes understanding of the plan. Jonathan Hawkins RPh Clinical Pharmacist, Pharmacy Anticoagulation Clinic Pharm[facility] Pager: [phone]. [facility]07-30[facility] Miscellaneous Notes* Telephone Encounter - Jonathan Hawkins RPh - 03/08/2024 7:51 AM EDT [facility] Anticoagulation Episode Summary Anticoagulation Care Providers Provider Role Specialty Phone number George Mata MD [facility] Internal Medicine [phone] Bessy Valverde is a 78 year old year old male patient being evaluated today for a Telemanagement visit. Patient is currently on the following anticoagulant(s) Warfarin. Labs PT INR (no units) Date Value 11/19/2021 2.7 biotel 11/05/2021 2.5 10/22/2021 2.8 biotel INR Home CoaguChek (no units) Date Value 03/08/2024 1.9 03/01/2024 2.7 02/17/2024 1.8 Hemoglobin (g/dL) Date Value 01/25/2024 12.2 09/23/2021 13.8 Hematocrit (%) Date Value 01/25/2024 37.8 09/23/2021 44.4 Platelet Count (k/uL) Date Value 01/25/2024 125 09/23/2021 160 Creatinine (mg/dL) Date Value 01/25/2024 1.30 07/29/2023 1.35 01/23/2023 1.27 09/23/2021 1.18 09/02/2021 1.31 08/05/2021 1.68 Bilirubin, Total (mg/dL) Date Value 01/25/2024 0.9 08/22/2021 1.2 ALT (U/L) Date Value 01/25/2024 20 08/22/2021 36 AST (U/L) Date Value 01/25/2024 24 08/22/2021 45 CrCl cannot be calculated (Unknown ideal weight.). ALLERGIES No Known Allergies Indication for Warfarin: Anticoagulation Episode Summary Current INR goal: 2.0-3.0 Assessment: INR result of 1.9 is SUBtherapeutic due to: No obvious cause (patient denies liver, green tea, new herbal/nutritional supplements - such as Boost, Ensure, an increase in vit K foods and/or V8 type juices, any changes in warfarin tablet, or missed doses) Plan: Current Warfarin Dosing As of 03/08/2024 Full warfarin instructions: 03/08: 5 mg; Otherwise 5 mg every Mon, Fri; 2.5 mg all other days Called and spoke to patient/caregiver Advised patient to increase dose for 1 day only then resume weekly regimen Next home INR check scheduled on Patient verbalizes understanding of the plan. Jonathan Hawkins RPh Clinical Pharmacist, Pharmacy Anticoagulation Clinic Pharmacy Anticoagulation Clinic Pager: [phone]. documented in this encounterGlen[facility]07-23-[facility] Telephone encounter Note * Telephone Encounter - Jonathan Hawkins RPh - 03/01/2024 10:46 AM EDT [facility] Anticoagulation Episode Summary Anticoagulation Care Providers Provider Role Specialty Phone number George Mata MD Responsible Internal Medicine [phone] Bessy Valverde is a 78 year old year old male patient being evaluated today for a Telemanagement visit. Patient is currently on the following anticoagulant(s) Warfarin. Labs PT INR (no units) Date Value 11/19/2021 2.7 biotel 11/05/2021 2.5 10/22/2021 2.8 biotel INR Home CoaguChek (no units) Date Value 03/01/2024 2.7 02/17/2024 1.8 02/02/2024 4.0 Hemoglobin (g/dL) Date Value 01/25/2024 12.2 09/23/2021 13.8 Hematocrit (%) Date Value 01/25/2024 37.8 09/23/2021 44.4 Platelet Count (k/uL) Date Value 01/25/2024 125 09/23/2021 160 Creatinine (mg/dL) Date Value 01/25/2024 1.30 07/29/2023 1.35 01/23/2023 1.27 09/23/2021 1.18 09/02/2021 1.31 08/05/2021 1.68 Bilirubin, Total (mg/dL) Date Value 01/25/2024 0.9 08/22/2021 1.2 ALT (U/L) Date Value 01/25/2024 20 08/22/2021 36 AST (U/L) Date Value 01/25/2024 24 08/22/2021 45 CrCl cannot be calculated (Unknown ideal weight.). ALLERGIES No Known Allergies Indication for Warfarin: Anticoagulation Episode Summary Current INR goal: 2.0-3.0 Assessment: INR result of 2.7 is therapeutic Plan: Current Warfarin Dosing As of 03/01/2024 Full warfarin instructions: 5 mg every Mon, Fri; 2.5 mg all other days Called and spoke to patient/caregiver Advised patient to continue current weekly dose as noted above Next home INR check scheduled on 03/08/2024 Patient verbalizes understanding of the plan. Jonathan Hawkins RPh Clinical Pharmacist, Pharmacy Anticoagulation Clinic Pharmacy An[facility] Pager: [phone]. [facility] Miscellaneous Notes* Telephone Encounter - Jonathan Hawkins RPh - 03/01/2024 10:46 AM EDT [facility] Anticoagulation Episode Summary Anticoagulation Care Providers Provider Role Specialty Phone number George Mata MD Responsible Internal Medicine [phone] Bessy Valverde is a 78 year old year old male patient being evaluated today for a Telemanagement visit. Patient is currently on the following anticoagulant(s) Warfarin. Labs PT INR (no units) Date Value 11/19/2021 2.7 biotel 11/05/2021 2.5 10/22/2021 2.8 biotel INR Home CoaguChek (no units) Date Value 03/01/2024 2.7 02/17/2024 1.8 02/02/2024 4.0 Hemoglobin (g/dL) Date Value 01/25/2024 12.2 09/23/2021 13.8 Hematocrit (%) Date Value 01/25/2024 37.8 09/23/2021 44.4 Platelet Count (k/uL) Date Value 01/25/2024 125 09/23/2021 160 Creatinine (mg/dL) Date Value 01/25/2024 1.30 07/29/2023 1.35 01/23/2023 1.27 09/23/2021 1.18 09/02/2021 1.31 08/05/2021 1.68 Bilirubin, Total (mg/dL) Date Value 01/25/2024 0.9 08/22/2021 1.2 ALT (U/L) Date Value 01/25/2024 20 08/22/2021 36 AST (U/L) Date Value 01/25/2024 24 08/22/2021 45 CrCl cannot be calculated (Unknown ideal weight.). ALLERGIES No Known Allergies Indication for Warfarin: Anticoagulation Episode Summary Current INR goal: 2.0-3.0 Assessment: INR result of 2.7 is therapeutic Plan: Current Warfarin Dosing As of 03/01/2024 Full warfarin instructions: 5 mg every Mon, Fri; 2.5 mg all other days Called and spoke to patient/caregiver Advised patient to continue current weekly dose as noted above Next home INR check scheduled on 03/08/2024 Patient verbalizes understanding of the plan. Jonathan Hawkins RPh Clinical Pharmacist, Pharmacy Anticoagulation Clinic Pharmacy Anticoagulation Clinic Pager: [phone]. documented in this encounterGlen[facility]07-10-[facility]24 Telephone encounter Note * Telephone Encounter - Ruma Merchant RPh - 02/17/2024 5:38 PM EDT [facility] Anticoagulation Episode Summary Anticoagulation Care Providers Provider Role Specialty Phone number George Mata MD Responsible Internal Medicine [phone] Bessy Valverde is a 78 year old year old male patient being evaluated today for a Telemanagement visit. Patient is currently on the following anticoagulant(s) Warfarin. Labs PT INR (no units) Date Value 11/19/2021 2.7 biotel 11/05/2021 2.5 10/22/2021 2.8 biotel INR Home CoaguChek (no units) Date Value 02/17/2024 1.8 02/02/2024 4.0 01/19/2024 3.4 Hemoglobin (g/dL) Date Value 01/25/2024 12.2 09/23/2021 13.8 Hematocrit (%) Date Value 01/25/2024 37.8 09/23/2021 44.4 Platelet Count (k/uL) Date Value 01/25/2024 125 09/23/2021 160 Creatinine (mg/dL) Date Value 01/25/2024 1.30 07/29/2023 1.35 01/23/2023 1.27 09/23/2021 1.18 09/02/2021 1.31 08/05/2021 1.68 Bilirubin, Total (mg/dL) Date Value 01/25/2024 0.9 08/22/2021 1.2 ALT (U/L) Date Value 01/25/2024 20 08/22/2021 36 AST (U/L) Date Value 01/25/2024 24 08/22/2021 45 CrCl cannot be calculated (Unknown ideal weight.). 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 Permanent atrial fibrillation (hcc) Anticoagulation Episode Summary Current INR goal: 2.0-3.0 Assessment: INR result of 1.8 is SUBtherapeutic due to: No obvious cause (patient denies liver, green tea, new herbal/nutritional supplements - such as Boost, Ensure, an increase in vit K foods and/or V8 type juices, any changes in warfarin tablet, or missed doses) Plan: Current Warfarin Dosing As of 02/17/2024 Full warfarin instructions: 02/16: 5 mg; Otherwise 5 mg every Mon, Fri; 2.5 mg all other days Called and spoke to patient/caregiver Advised patient to increase dose for 1 day only then resume weekly regimen Next home INR check scheduled on 03/02/2024 Patient verbalizes understanding of the plan. Patient denies need for refills. Ruma Merchant RPh Clinical Pharmacist, Pharmacy Anticoagulation Clinic Pharmacy Anticoagulation Clinic Pager: [phone]. [facility]07-10-[facility] Miscellaneous Notes* Telephone Encounter - Ruma Merchant RPh - 02/17/2024 5:38 PM EDT [facility] Anticoagulation Episode Summary Anticoagulation Care Providers Provider Role Specialty Phone number George Mata MD [facility] Internal Medicine [phone] Bessy Valvedre is a 78 year old year old male patient being evaluated today for a Telemanagement visit. Patient is currently on the following anticoagulant(s) Warfarin. Labs PT INR (no units) Date Value 11/19/2021 2.7 biotel 11/05/2021 2.5 10/22/2021 2.8 biotel INR Home CoaguChek (no units) Date Value 02/17/2024 1.8 02/02/2024 4.0 01/19/2024 3.4 Hemoglobin (g/dL) Date Value 01/25/2024 12.2 09/23/2021 13.8 Hematocrit (%) Date Value 01/25/2024 37.8 09/23/2021 44.4 Platelet Count (k/uL) Date Value 01/25/2024 125 09/23/2021 160 Creatinine (mg/dL) Date Value 01/25/2024 1.30 07/29/2023 1.35 01/23/2023 1.27 09/23/2021 1.18 09/02/2021 1.31 08/05/2021 1.68 Bilirubin, Total (mg/dL) Date Value 01/25/2024 0.9 08/22/2021 1.2 ALT (U/L) Date Value 01/25/2024 20 08/22/2021 36 AST (U/L) Date Value 01/25/2024 24 08/22/2021 45 CrCl cannot be calculated (Unknown ideal weight.). 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 Permanent atrial fibrillation (hcc) Anticoagulation Episode Summary Current INR goal: 2.0-3.0 Assessment: INR result of 1.8 is SUBtherapeutic due to: No obvious cause (patient denies liver, green tea, new herbal/nutritional supplements - such as Boost, Ensure, an increase in vit K foods and/or V8 type juices, any changes in warfarin tablet, or missed doses) Plan: Current Warfarin Dosing As of 02/17/2024 Full warfarin instructions: 02/16: 5 mg; Otherwise 5 mg every Mon, Fri; 2.5 mg all other days Called and spoke to patient/caregiver Advised patient to increase dose for 1 day only then resume weekly regimen Next home INR check scheduled on 03/02/2024 Patient verbalizes understanding of the plan. Patient denies need for refills. Ruma Merchant RPh Clinical Pharmacist, Pharmacy Anticoagulation Clinic Pharmacy Anticoagulation Clinic Pager: [phone]. 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 Gladys Cid LPN * Telephone Encounter - Paola Blue APRN.CNP - 02/02/2024 9:18 AM EDT Patient due for follow-up Paola Blue APRN.CNP * Telephone Encounter - Yin Hernandez RN - 02/02/2024 8:11 AM EDT Pt states he is almost out of medication. The patient has been identified by name and date of : Yes Caregiver verified no other encounters exist for this prescription request: Yes Caregiver confirmed with patient/requestor that no other refills are due, in the near future, with this provider at this time: Yes The last office visit in the department: 11/10/2023 Does the patient have a future office visit with this provider/department: No Visit date not found Requested Prescriptions Pending Prescriptions Disp Refills albuterol HFA (VENTOLIN HFA) 90 mcg/actuation inhaler 18 g 5 Sig: USE 2 INHALATIONS 4 TIMES A DAY IF NEEDED Yin Hernandez RN February 02, 2024 8:12 AM documented in this encounterGlen[facility] Hospital06-25-[facility]24 Telephone encounter Note * Telephone Encounter - Paola Blue APRN.CNP - 02/02/2024 9:18 AM EDT Patient due for follow-up Paola Blue APRN.CNP [facility] Telephone encounter Note* Telephone Encounter - Yni Hernandez RN - 02/02/2024 8:11 AM EDT Pt states he is almost out of medication. The patient has been identified by name and date of : Yes Caregiver verified no other encounters exist for this prescription request: Yes Caregiver confirmed with patient/requestor that no other refills are due, in the near future, with this provider at this time: Yes The last office visit in the department: 11/10/2023 Does the patient have a future office visit with this provider/department: No Visit date not found Requested Prescriptions Pending Prescriptions Disp Refills albuterol HFA (VENTOLIN HFA) 90 mcg/actuation inhaler 18 g 5 Sig: USE 2 INHALATIONS 4 TIMES A DAY IF NEEDED Yin Hernandez RN February 02, 2024 8:12 AM [facility] Telephone encounter Note* Telephone Encounter - Jonathan Hawkins [facility] - 02/02/2024 7:48 AM EDT [facility] Anticoagulation Episode Summary Anticoagulation Care Providers Provider Role Specialty Phone number George Mata MD [facility] Internal Medicine [phone] Bessy Valverde is a 78 year old year old male patient being evaluated today for a Telemanagement visit. Patient is currently on the following anticoagulant(s) Warfarin. Labs PT INR (no units) Date Value 11/19/2021 2.7 biotel 11/05/2021 2.5 10/22/2021 2.8 biotel INR Home CoaguChek (no units) Date Value 02/02/2024 4.0 01/19/2024 3.4 01/05/2024 1.5 Hemoglobin (g/dL) Date Value 01/25/2024 12.2 09/23/2021 13.8 Hematocrit (%) Date Value 01/25/2024 37.8 09/23/2021 44.4 Platelet Count (k/uL) Date Value 01/25/2024 125 09/23/2021 160 Creatinine (mg/dL) Date Value 01/25/2024 1.30 07/29/2023 1.35 01/23/2023 1.27 09/23/2021 1.18 09/02/2021 1.31 08/05/2021 1.68 Bilirubin, Total (mg/dL) Date Value 01/25/2024 0.9 08/22/2021 1.2 ALT (U/L) Date Value 01/25/2024 20 08/22/2021 36 AST (U/L) Date Value 01/25/2024 24 08/22/2021 45 CrCl cannot be calculated (Unknown ideal weight.). ALLERGIES No Known Allergies Indication for Warfarin: Anticoagulation Episode Summary Current INR goal: 2.0-3.0 Assessment: INR result of 4.0 is SUPRAtherapeutic due to: No obvious cause (patient denies medication change, grapefruit/cranberry/pomegranate/memo ingestion, OTC medication use, change in herbal/nutritional supplement, accidental overdosage, change in warfarin tablet shape or color, change in vit K consumption, recent illness (NVD, fever), any changes to general health, changes in tobacco use, or EtOH consumption) Plan: Current Warfarin Dosing As of 02/02/2024 Full warfarin instructions: 02/01: Hold; Otherwise 5 mg every Mon, Fri; 2.5 mg all other days Called and spoke to patient/caregiver Advised patient to hold 1 dose then continue current regimen as noted above Next home INR check scheduled on 02/16/2024 Patient verbalizes understanding of the plan. Jonathan Hawkins RPh Clinical Pharmacist, Pharmacy Anticoagulation Clinic Pharmacy Anticoagulation Clinic Pager: [phone]. [facility] Miscellaneous Notes* Telephone Encounter - Jonathan Hawkins RPh - 02/02/2024 7:48 AM EDT [facility] Anticoagulation Episode Summary Anticoagulation Care Providers Provider Role Specialty Phone number George Mata MD [facility] Internal Medicine [phone] Bessy Valverde is a 78 year old year old male patient being evaluated today for a Telemanagement visit. Patient is currently on the following anticoagulant(s) Warfarin. Labs PT INR (no units) Date Value 11/19/2021 2.7 biotel 11/05/2021 2.5 10/22/2021 2.8 biotel INR Home CoaguChek (no units) Date Value 02/02/2024 4.0 01/19/2024 3.4 01/05/2024 1.5 Hemoglobin (g/dL) Date Value 01/25/2024 12.2 09/23/2021 13.8 Hematocrit (%) Date Value 01/25/2024 37.8 09/23/2021 44.4 Platelet Count (k/uL) Date Value 01/25/2024 125 09/23/2021 160 Creatinine (mg/dL) Date Value 01/25/2024 1.30 07/29/2023 1.35 01/23/2023 1.27 09/23/2021 1.18 09/02/2021 1.31 08/05/2021 1.68 Bilirubin, Total (mg/dL) Date Value 01/25/2024 0.9 08/22/2021 1.2 ALT (U/L) Date Value 01/25/2024 20 08/22/2021 36 AST (U/L) Date Value 01/25/2024 24 08/22/2021 45 CrCl cannot be calculated (Unknown ideal weight.). ALLERGIES No Known Allergies Indication for Warfarin: Anticoagulation Episode Summary Current INR goal: 2.0-3.0 Assessment: INR result of 4.0 is SUPRAtherapeutic due to: No obvious cause (patient denies medication change, grapefruit/cranberry/pomegranate/memo ingestion, OTC medication use, change in herbal/nutritional supplement, accidental overdosage, change in warfarin tablet shape or color, change in vit K consumption, recent illness (NVD, fever), any changes to general health, changes in tobacco use, or EtOH consumption) Plan: Current Warfarin Dosing As of 02/02/2024 Full warfarin instructions: 02/01: Hold; Otherwise 5 mg every Mon, Fri; 2.5 mg all other days Called and spoke to patient/caregiver Advised patient to hold 1 dose then continue current regimen as noted above Next home INR check scheduled on 02/16/2024 Patient verbalizes understanding of the plan. Jonathan Hawkins RPh Clinical Pharmacist, Pharmacy Anticoagulation Clinic Pharmacy Anticoagulation Clinic Pager: [phone]. documented in this encounterCleveland [id number] Telephone encounter Note * Telephone Encounter - Jonathan Hawkins, [facility] - 01/19/2024 12:42 PM EDT [facility] Anticoagulation Episode Summary Anticoagulation Care Providers Provider Role Specialty Phone number George Mata MD Responsible Internal Medicine [phone] Bessy Valverde is a 78 year old year old male patient being evaluated today for a Telemanagement visit. Patient is currently on the following anticoagulant(s) Warfarin. Labs PT INR (no units) Date Value 11/19/2021 2.7 biotel 11/05/2021 2.5 10/22/2021 2.8 biotel INR Home CoaguChek (no units) Date Value 01/19/2024 3.4 01/05/2024 1.5 12/22/2023 2.1 Hemoglobin (g/dL) Date Value 01/23/2023 12.0 09/23/2021 13.8 Hematocrit (%) Date Value 01/23/2023 37.4 09/23/2021 44.4 Platelet Count (k/uL) Date Value 01/23/2023 128 09/23/2021 160 Creatinine (mg/dL) Date Value 07/29/2023 1.35 01/23/2023 1.27 07/24/2022 1.24 09/23/2021 1.18 09/02/2021 1.31 08/05/2021 1.68 Bilirubin, Total (mg/dL) Date Value 07/29/2023 1.5 08/22/2021 1.2 ALT (U/L) Date Value 07/29/2023 19 08/22/2021 36 AST (U/L) Date Value 07/29/2023 27 08/22/2021 45 CrCl cannot be calculated (Unknown ideal weight.). ALLERGIES No Known Allergies Indication for Warfarin: Anticoagulation Episode Summary Current INR goal: 2.0-3.0 Assessment: INR result of 3.4 is SUPRAtherapeutic due to: No obvious cause (patient denies medication change, grapefruit/cranberry/pomegranate/memo ingestion, OTC medication use, change in herbal/nutritional supplement, accidental overdosage, change in warfarin tablet shape or color, change in vit K consumption, recent illness (NVD, fever), any changes to general health, changes in tobacco use, or EtOH consumption) Plan: Current Warfarin Dosing As of 01/19/2024 Full warfarin instructions: 01/18: 1.25 mg; Otherwise 5 mg every Mon, Fri; 2.5 mg all other days Called and spoke to patient/caregiver Advised patient to decrease dose for 1 day only then resume weekly regimen as noted above Next home INR check scheduled on 02/02/2024 Patient verbalizes understanding of the plan. Jonathan Hawkins RPh Clinical Pharmacist, Pharmacy Anticoagulation Clinic Pharmacy Antico[facility] Clinic Pager: [phone]. [facility]06-11-2024 Miscellaneous Notes* Telephone Encounter - Jonathan Hawkins RPh - 01/19/2024 12:42 PM EDT [facility] Anticoagulation Episode Summary Anticoagulation Care Providers Provider Role Specialty Phone number George Mata MD Responsible Internal Medicine [phone] Bessy Valverde is a 78 year old year old male patient being evaluated today for a Telemanagement visit. Patient is currently on the following anticoagulant(s) Warfarin. Labs PT INR (no units) Date Value 11/19/2021 2.7 biotel 11/05/2021 2.5 10/22/2021 2.8 biotel INR Home CoaguChek (no units) Date Value 01/19/2024 3.4 01/05/2024 1.5 12/22/2023 2.1 Hemoglobin (g/dL) Date Value 01/23/2023 12.0 09/23/2021 13.8 Hematocrit (%) Date Value 01/23/2023 37.4 09/23/2021 44.4 Platelet Count (k/uL) Date Value 01/23/2023 128 09/23/2021 160 Creatinine (mg/dL) Date Value 07/29/2023 1.35 01/23/2023 1.27 07/24/2022 1.24 09/23/2021 1.18 09/02/2021 1.31 08/05/2021 1.68 Bilirubin, Total (mg/dL) Date Value 07/29/2023 1.5 08/22/2021 1.2 ALT (U/L) Date Value 07/29/2023 19 08/22/2021 36 AST (U/L) Date Value 07/29/2023 27 08/22/2021 45 CrCl cannot be calculated (Unknown ideal weight.). ALLERGIES No Known Allergies Indication for Warfarin: Anticoagulation Episode Summary Current INR goal: 2.0-3.0 Assessment: INR result of 3.4 is SUPRAtherapeutic due to: No obvious cause (patient denies medication change, grapefruit/cranberry/pomegranate/memo ingestion, OTC medication use, change in herbal/nutritional supplement, accidental overdosage, change in warfarin tablet shape or color, change in vit K consumption, recent illness (NVD, fever), any changes to general health, changes in tobacco use, or EtOH consumption) Plan: Current Warfarin Dosing As of 01/19/2024 Full warfarin instructions: 01/18: 1.25 mg; Otherwise 5 mg every Mon, Fri; 2.5 mg all other days Called and spoke to patient/caregiver Advised patient to decrease dose for 1 day only then resume weekly regimen as noted above Next home INR check scheduled on 02/02/2024 Patient verbalizes understanding of the plan. Jonathan Hawkins RPh Clinical Pharmacist, Pharmacy Anticoagulation Clinic Pharmacy Anticoagulation Clinic Pager: [phone]. documented in [facility] encounterG[facility] Telephone encounter Note * Telephone Encounter - Jonathan Hawkins RPh - 01/05/2024 8:01 AM EDT [facility] Anticoagulation Episode Summary Anticoagulation Care Providers Provider Role Specialty Phone number George Mata MD [facility] Internal Medicine [phone] Bessy Valverde is a 78 year old year old male patient being evaluated today for a Telemanagement visit. Patient is currently on the following anticoagulant(s) Warfarin. Labs PT INR (no units) Date Value 11/19/2021 2.7 biotel 11/05/2021 2.5 10/22/2021 2.8 biotel INR Home CoaguChek (no units) Date Value 01/05/2024 1.5 12/22/2023 2.1 12/08/2023 3.1 Hemoglobin (g/dL) Date Value 01/23/2023 12.0 09/23/2021 13.8 Hematocrit (%) Date Value 01/23/2023 37.4 09/23/2021 44.4 Platelet Count (k/uL) Date Value 01/23/2023 128 09/23/2021 160 Creatinine (mg/dL) Date Value 07/29/2023 1.35 01/23/2023 1.27 07/24/2022 1.24 09/23/2021 1.18 09/02/2021 1.31 08/05/2021 1.68 Bilirubin, Total (mg/dL) Date Value 07/29/2023 1.5 08/22/2021 1.2 ALT (U/L) Date Value 07/29/2023 19 08/22/2021 36 AST (U/L) Date Value 07/29/2023 27 08/22/2021 45 CrCl cannot be calculated (Unknown ideal weight.). ALLERGIES No Known Allergies Indication for Warfarin: Anticoagulation Episode Summary Current INR goal: 2.0-3.0 Assessment: INR result of 1.5 is SUBtherapeutic due to: missed doses prior to pain injection on 12/29 Plan: Current Warfarin Dosing As of 01/05/2024 Full warfarin instructions: 01/04: 7.5 mg; Otherwise 5 mg every Mon, Fri; 2.5 mg all other days Called and spoke to patient/caregiver Advised patient to increase dose for 1 day only then resume weekly regimen Next home INR check scheduled on Patient verbalizes understanding of the plan. Jonathan Hawkins RPh Clinical Pharmacist, Pharmacy Anticoagulation Clinic Pharmacy Anticoagulation Clinic Pager: [phone]. [facility]05-28-2024 Miscellaneous Notes* Telephone Encounter - Jonathan Hawkins RPh - 01/05/2024 8:01 AM EDT [facility] Anticoagulation Episode Summary Anticoagulation Care Providers Provider Role Specialty Phone number MataGeorge gerber MD Responsible Internal Medicine [phone] Bessy Valverde is a 78 year old year old male patient being evaluated today for a Telemanagement visit. Patient is currently on the following anticoagulant(s) Warfarin. Labs PT INR (no units) Date Value 11/19/2021 2.7 biotel 11/05/2021 2.5 10/22/2021 2.8 biotel INR Home CoaguChek (no units) Date Value 01/05/2024 1.5 12/22/2023 2.1 12/08/2023 3.1 Hemoglobin (g/dL) Date Value 01/23/2023 12.0 09/23/2021 13.8 Hematocrit (%) Date Value 01/23/2023 37.4 09/23/2021 44.4 Platelet Count (k/uL) Date Value 01/23/2023 128 09/23/2021 160 Creatinine (mg/dL) Date Value 07/29/2023 1.35 01/23/2023 1.27 07/24/2022 1.24 09/23/2021 1.18 09/02/2021 1.31 08/05/2021 1.68 Bilirubin, Total (mg/dL) Date Value 07/29/2023 1.5 08/22/2021 1.2 ALT (U/L) Date Value 07/29/2023 19 08/22/2021 36 AST (U/L) Date Value 07/29/2023 27 08/22/2021 45 CrCl cannot be calculated (Unknown ideal weight.). ALLERGIES No Known Allergies Indication for Warfarin: Anticoagulation Episode Summary Current INR goal: 2.0-3.0 Assessment: INR result of 1.5 is SUBtherapeutic due to: missed doses prior to pain injection on 12/29 Plan: Current Warfarin Dosing As of 01/05/2024 Full warfarin instructions: 01/04: 7.5 mg; Otherwise 5 mg every Mon, Fri; 2.5 mg all other days Called and spoke to patient/caregiver Advised patient to increase dose for 1 day only then resume weekly regimen Next home INR check scheduled on Patient verbalizes understanding of the plan. Jonathan Hawkins RPh Clinical Pharmacist, Pharmacy Anticoagulation Clinic Pharmacy Anticoagulation Clinic Pager: [phone]. documented in this encounterGlen[facility]05-[facility] Telephone encounter Note * Telephone Encounter - Jonathan Hawkins RPh - 12/22/2023 8:08 AM EDT [facility] Anticoagulation Episode Summary Anticoagulation Care Providers Provider Role Specialty Phone number George Mata MD Responsible Internal Medicine [phone] Bessy Valverde is a 78 year old year old male patient being evaluated today for a Telemanagement visit. Patient is currently on the following anticoagulant(s) Warfarin. Labs PT INR (no units) Date Value 11/19/2021 2.7 biotel 11/05/2021 2.5 10/22/2021 2.8 biotel INR Home CoaguChek (no units) Date Value 12/22/2023 2.1 12/08/2023 3.1 11/24/2023 3.6 Hemoglobin (g/dL) Date Value 01/23/2023 12.0 09/23/2021 13.8 Hematocrit (%) Date Value 01/23/2023 37.4 09/23/2021 44.4 Platelet Count (k/uL) Date Value 01/23/2023 128 09/23/2021 160 Creatinine (mg/dL) Date Value 07/29/2023 1.35 01/23/2023 1.27 07/24/2022 1.24 09/23/2021 1.18 09/02/2021 1.31 08/05/2021 1.68 Bilirubin, Total (mg/dL) Date Value 07/29/2023 1.5 08/22/2021 1.2 ALT (U/L) Date Value 07/29/2023 19 08/22/2021 36 AST (U/L) Date Value 07/29/2023 27 08/22/2021 45 CrCl cannot be calculated (Unknown ideal weight.). ALLERGIES No Known Allergies Indication for Warfarin: Anticoagulation Episode Summary Current INR goal: 2.0-3.0 Assessment: INR result of 2.1 is therapeutic Plan: Current Warfarin Dosing As of 12/22/2023 Full warfarin instructions: 5 mg every Mon, Fri; 2.5 mg all other days Called and spoke to patient/caregiver Advised patient to continue current weekly dose as noted above Next home INR check scheduled on 01/05/2024 Patient verbalizes understanding of the plan. Jonathan Hawkins RPh Clinical Pharmacist, Pharmacy Anticoagulation Clinic Pharmacy Anticoagulation Clinic Pager: [phone]. [facility]05-14-2024 Miscellaneous Notes* Telephone Encounter - Jonathan Hawkins RPh - 12/22/2023 8:08 AM EDT [facility] Anticoagulation Episode Summary Anticoagulation Care Providers Provider Role Specialty Phone number George Mata MD Responsible Internal Medicine [phone] Bessy Valverde is a 78 year old year old male patient being evaluated today for a Telemanagement visit. Patient is currently on the following anticoagulant(s) Warfarin. Labs PT INR (no units) Date Value 11/19/2021 2.7 biotel 11/05/2021 2.5 10/22/2021 2.8 biotel INR Home CoaguChek (no units) Date Value 12/22/2023 2.1 12/08/2023 3.1 11/24/2023 3.6 Hemoglobin (g/dL) Date Value 01/23/2023 12.0 09/23/2021 13.8 Hematocrit (%) Date Value 01/23/2023 37.4 09/23/2021 44.4 Platelet Count (k/uL) Date Value 01/23/2023 128 09/23/2021 160 Creatinine (mg/dL) Date Value 07/29/2023 1.35 01/23/2023 1.27 07/24/2022 1.24 09/23/2021 1.18 09/02/2021 1.31 08/05/2021 1.68 Bilirubin, Total (mg/dL) Date Value 07/29/2023 1.5 08/22/2021 1.2 ALT (U/L) Date Value 07/29/2023 19 08/22/2021 36 AST (U/L) Date Value 07/29/2023 27 08/22/2021 45 CrCl cannot be calculated (Unknown ideal weight.). ALLERGIES No Known Allergies Indication for Warfarin: Anticoagulation Episode Summary Current INR goal: 2.0-3.0 Assessment: INR result of 2.1 is therapeutic Plan: Current Warfarin Dosing As of 12/22/2023 Full warfarin instructions: 5 mg every Mon, Fri; 2.5 mg all other days Called and spoke to patient/caregiver Advised patient to continue current weekly dose as noted above Next home INR check scheduled on 01/05/2024 Patient verbalizes understanding of the plan. Jonathan Hawkins RPh Clinical Pharmacist, Pharmacy Anticoagulation Clinic Pharmacy Anticoagulation Clinic Pager: [phone]. documented in this encounterGlen[facility]04[facility] Telephone encounter Note * Telephone Encounter - Jonathan Hawkins RPh - 12/08/2023 7:58 AM EDT [facility] Anticoagulation Episode Summary Anticoagulation Care Providers Provider Role Specialty Phone number George Mata MD [facility] Internal Medicine [phone] Bessy Valverde is a 77 year old year old male patient being evaluated today for a Telemanagement visit. Patient is currently on the following anticoagulant(s) Warfarin. Labs PT INR (no units) Date Value 11/19/2021 2.7 biotel 11/05/2021 2.5 10/22/2021 2.8 biotel INR Home CoaguChek (no units) Date Value 12/08/2023 3.1 11/24/2023 3.6 11/13/2023 3.4 Hemoglobin (g/dL) Date Value 01/23/2023 12.0 09/23/2021 13.8 Hematocrit (%) Date Value 01/23/2023 37.4 09/23/2021 44.4 Platelet Count (k/uL) Date Value 01/23/2023 128 09/23/2021 160 Creatinine (mg/dL) Date Value 07/29/2023 1.35 01/23/2023 1.27 07/24/2022 1.24 09/23/2021 1.18 09/02/2021 1.31 08/05/2021 1.68 Bilirubin, Total (mg/dL) Date Value 07/29/2023 1.5 08/22/2021 1.2 ALT (U/L) Date Value 07/29/2023 19 08/22/2021 36 AST (U/L) Date Value 07/29/2023 27 08/22/2021 45 CrCl cannot be calculated (Unknown ideal weight.). ALLERGIES No Known Allergies Indication for Warfarin: Anticoagulation Episode Summary Current INR goal: 2.0-3.0 Assessment: INR result of 3.1 is SUPRAtherapeutic due to: No obvious cause Patient denies any medication changes, grapefruit/cranberry ingestion, OTC/herbal/nutritional supplement use, accidental over dosage, changes in warfarin tablet color/shape/car park attendant, eating less green vegetables, recent illness/fever/nausea/vomiting/diarrhea, increased edema/SOB, or ETOH consump tion. Plan: Current Warfarin Dosing As of 12/08/2023 Full warfarin instructions: 12/07: 1.25 mg; Otherwise 5 mg every Mon, Fri; 2.5 mg all other days Called and spoke to patient/caregiver Advised patient to decrease dose for 1 day only then resume weekly regimen as noted above Next home INR check scheduled on 12/22/2023 Patient verbalizes understanding of the plan. Jonathan Hawkins RPh Clinical Pharmacist, Pharmacy Anticoagulation Clinic Pharmacy Anticoagulation Clinic Pager: [phone]. [facility]04-30-[facility] Miscellaneous Notes* Telephone Encounter - Jonathan Hawkins RPh - 12/08/2023 7:58 AM EDT [facility] Anticoagulation Episode Summary Anticoagulation Care Providers Provider Role Specialty Phone number George Mata MD Responsible Internal Medicine [phone] Bessy Valverde is a 77 year old year old male patient being evaluated today for a Telemanagement visit. Patient is currently on the following anticoagulant(s) Warfarin. Labs PT INR (no units) Date Value 11/19/2021 2.7 biotel 11/05/2021 2.5 10/22/2021 2.8 biotel INR Home CoaguChek (no units) Date Value 12/08/2023 3.1 11/24/2023 3.6 11/13/2023 3.4 Hemoglobin (g/dL) Date Value 01/23/2023 12.0 09/23/2021 13.8 Hematocrit (%) Date Value 01/23/2023 37.4 09/23/2021 44.4 Platelet Count (k/uL) Date Value 01/23/2023 128 09/23/2021 160 Creatinine (mg/dL) Date Value 07/29/2023 1.35 01/23/2023 1.27 07/24/2022 1.24 09/23/2021 1.18 09/02/2021 1.31 08/05/2021 1.68 Bilirubin, Total (mg/dL) Date Value 07/29/2023 1.5 08/22/2021 1.2 ALT (U/L) Date Value 07/29/2023 19 08/22/2021 36 AST (U/L) Date Value 07/29/2023 27 08/22/2021 45 CrCl cannot be calculated (Unknown ideal weight.). ALLERGIES No Known Allergies Indication for Warfarin: Anticoagulation Episode Summary Current INR goal: 2.0-3.0 Assessment: INR result of 3.1 is SUPRAtherapeutic due to: No obvious cause Patient denies any medication changes, grapefruit/cranberry ingestion, OTC/herbal/nutritional supplement use, accidental over dosage, changes in warfarin tablet color/shape/car park attendant, eating less green vegetables, recent illness/fever/nausea/vomiting/diarrhea, increased edema/SOB, or ETOH consump tion. Plan: Current Warfarin Dosing As of 12/08/2023 Full warfarin instructions: 12/07: 1.25 mg; Otherwise 5 mg every Mon, Fri; 2.5 mg all other days Called and spoke to patient/caregiver Advised patient to decrease dose for 1 day only then resume weekly regimen as noted above Next home INR check scheduled on 12/22/2023 Patient verbalizes understanding of the plan. Jonathan Hawkins [facility] Clinical Pharmacist, Pharmacy Anticoagulation Clinic Pharmacy Anticoagulation Clinic Pager: [phone]. documented in this encounterGlenbe[facility] Hospital04-16-2024 Miscellaneous Notes* Telephone Encounter - Lian Coulter, [facility] - 11/24/2023 8:23 AM EDT [facility] Anticoagulation Episode Summary Anticoagulation Care Providers Provider Role Specialty Phone number George Mata MD Responsible Internal Medicine [phone] Bessy Valverde is a 77 year old year old male patient being evaluated today for a Telemanagement visit. Patient is currently on the following anticoagulant(s) Warfarin. Labs PT INR (no units) Date Value 11/19/2021 2.7 biotel 11/05/2021 2.5 10/22/2021 2.8 biotel INR Home CoaguChek (no units) Date Value 11/24/2023 3.6 11/13/2023 3.4 11/10/2023 3.2 Hemoglobin (g/dL) Date Value 01/23/2023 12.0 09/23/2021 13.8 Hematocrit (%) Date Value 01/23/2023 37.4 09/23/2021 44.4 Platelet Count (k/uL) Date Value 01/23/2023 128 09/23/2021 160 Creatinine (mg/dL) Date Value 07/29/2023 1.35 01/23/2023 1.27 07/24/2022 1.24 09/23/2021 1.18 09/02/2021 1.31 08/05/2021 1.68 Bilirubin, Total (mg/dL) Date Value 07/29/2023 1.5 08/22/2021 1.2 ALT (U/L) Date Value 07/29/2023 19 08/22/2021 36 AST (U/L) Date Value 07/29/2023 27 08/22/2021 45 CrCl cannot be calculated (Unknown ideal weight.). 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 Patient denies need for refills. Lian Coulter [facility] Clinical Pharmacist, Pharmacy Anticoagulation Clinic Pharmacy Anticoagulation Clinic Pager: [phone]. documented in this encounterGlenbeigh Hospital04-05-2024 Miscellaneous Notes* Telephone Encounter - Ewa Manzo RP - 11/13/2023 2:03 PM EDT [facility] Anticoagulation Episode Summary Anticoagulation Care Providers Provider Role Specialty Phone number George Mata MD [facility] Internal Medicine [phone] Bessy Valverde is a 77 year old year old male patient being evaluated today for a Telemanagement visit. Patient is currently on the following anticoagulant(s) Warfarin. Labs PT INR (no units) Date Value 11/19/2021 2.7 biotel 11/05/2021 2.5 10/22/2021 2.8 biotel INR Home CoaguChek (no units) Date Value 11/13/2023 3.4 11/10/2023 3.2 10/27/2023 2.8 Hemoglobin (g/dL) Date Value 01/23/2023 12.0 09/23/2021 13.8 Hematocrit (%) Date Value 01/23/2023 37.4 09/23/2021 44.4 Platelet Count (k/uL) Date Value 01/23/2023 128 09/23/2021 160 Creatinine (mg/dL) Date Value 07/29/2023 1.35 01/23/2023 1.27 07/24/2022 1.24 09/23/2021 1.18 09/02/2021 1.31 08/05/2021 1.68 Bilirubin, Total (mg/dL) Date Value 07/29/2023 1.5 08/22/2021 1.2 ALT (U/L) Date Value 07/29/2023 19 08/22/2021 36 AST (U/L) Date Value 07/29/2023 27 08/22/2021 45 CrCl cannot be calculated (Unknown ideal weight.). 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 Patient denies need for refills. Ewa Manzo RPh Clinical Pharmacist, Pharmacy Anticoagulation Clinic Pharmacy Anticoagulation Clinic Pager: [phone]. * Telephone Encounter - Zenobia (Personnel Research Psychologist)Yin - 11/13/2023 9:51 AM EDT PATIENT CALL Patient called call center regarding results and new medications. Patient's spouse called and stated INR result for 11/12 is 3.4. Spouse stated patient started the following new medications on 11/09: amoxicillin (AMOXIL) 875 mg tablet 14 tablet 0 11/10/2023 11/17/2023 Sig: Take 1 tablet by mouth two times a day for 7 days. predniSONE (DELTASONE) 20 mg tablet 5 tablet 0 11/10/2023 11/15/2023 Sig: Take 1 tablet by mouth once daily for 5 days. benzonatate (TESSALON PERLES) 100 mg capsule 21 capsule 0 11/10/2023 11/17/2023 Sig: Take 1 capsule by mouth three times a day as needed for cough for up to 7 days. Spouse can be reached at [phone]. PT INR (no units) Date Value 11/19/2021 2.7 biotel 11/05/2021 2.5 10/22/2021 2.8 biotel INR Home CoaguChek (no units) Date Value 11/13/2023 3.4 11/10/2023 3.2 10/27/2023 2.8 Yin Fregoso (XZERES) documented in this encounterGlen[facility] Hospital04-02-2024 Instructions* Patient Instructions* George Mata MD - 11/10/2023 12:11 PM EDT RECHECK YOUR COUMADIN LEVEL IN 3 DAYS. documented in this encounterGlenbeigh Hospital04-02-2024 History of Present illness Narrative* George Mata MD - 11/10/2023 11:57 AM EDT This note was created using [employer]. Subjective Bessy Valverde is a 77 year old male who presents with complaint of sinus symptoms, sore throat intially, post nasal drip, cough- productive with small amount of clear sputum, and fatigue for a week. Associated symptoms include wheezing and dyspnea. He denies fever, headache, ear pain, trouble swallowing, nausea, vomiting, diarrhea, and muscle aches. Treatments tried include Guaifenesin/Mucinex andAlbuterol with no relief of symptoms. Review of Systems Per HPI. 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 Disease, Without Long-Term Current Use of Insulin (Hcc) Aortic Valve Stenosis Chronic Systolic Heart Failure (Hcc) Mcc (Current) Use of Anticoagulants 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 Rinse mouth out after use with water. atorvastatin (LIPITOR) 40 mg tablet Take 1 tablet by mouth once daily. pantoprazole DR (PROTONIX) 20 mg tablet Take 1 tablet by mouth daily before breakfast. Take on empty stomach, 1/2 hr before meal. mfeahgvho-dyhuhz-epqbqblf-scop () 16.2-0.1037 -0.0194 mg per tablet Take 1 tablet by mouth every 6 hours as needed. warfarin (COUMADIN) 5 mg tablet 2.5 mg every Thu,Thu, Thu, Thu; 5 mg all other days nitroglycerin sublingual (NITROSTAT) 0.4 mg SL tablet Dissolve 1 tablet under the tongue as needed.DISSOLVE ON TONGUE FOR CHEST PAIN. IF NO PAIN RELIEF, CALL 911 albuterol HFA (VENTOLIN HFA) 90 mcg/actuation inhaler USE 2 INHALATIONS 4 TIMES A DAY IF NEEDED bumetanide (BUMEX) 1 mg tablet One tablet every other day; OR daily, depending on weight gain, fluid retention. ENTRESTO 24-26 mg tablet Take 1 tablet by mouth twice daily. sotalol (BETAPACE) 80 mg tablet Take 2 tablets by mouth twice daily. spironolactone (ALDACTONE) 25 mg tablet Take 25 mg by mouth once daily. LOW-DOSE ASPIRIN ORAL Take 1 tablet by mouth once daily. blood sugar diagnostic (BLOOD GLUCOSE TEST) test strip Test blood sugar(s) one times daily. Dx: Type 2 DM - Controlled E11.9 Insulin: No Blood-Glucose Meter monitoring kit Glucose Meter of Choice - Kit - Dx: Type 2 DM - Controlled E11.9 No current facility-administered medications for this visit. Objective Blood Pressure 108/64 (BP Site: Left Arm, BP Position: Sitting, BP Cuff Size: Large Adult) Pulse 64 Temperature 36.1 C (96.9 F) (Temporal) Respiration 18 Weight 80.7 kg (178 lb) Body Mass Index 26.59 kg/m Physical Exam Constitutional: General: He is not in acute distress. Appearance: He is not ill-appearing or diaphoretic. HENT: Ears: Comments: Hearing aids in place. Nose: Congestion present. No rhinorrhea. Left Nostril: Epistaxis present. Right Sinus: No maxillary sinus tenderness or frontal sinus tenderness. Left Sinus: No maxillary sinus tenderness or frontal sinus tenderness. Comments: Dried blood left septum. Mouth/Throat: Mouth: Mucous membranes are moist. Pharynx: Posterior oropharyngeal erythema present. No oropharyngeal exudate or uvula swelling. Cardiovascular: Rate and Rhythm: Normal rate. Rhythm irregular. Heart sounds: No murmur heard. No gallop. Pulmonary: Breath sounds: Examination of the right-middle field reveals rhonchi. Examination of the left-middle field reveals rhonchi. Examination of the right- lower field reveals rales. Examination of the left-lower field reveals rales. Wheezing, rhonchi and rales present. Comments: Chronic abnormal lung sounds. Musculoskeletal: Cervical back: No tenderness. Lymphadenopathy: Cervical: No cervical adenopathy. Neurological: Mental Status: He is alert. Assessment and Plan 1. Sinobronchitis - ICD9: 473.9, 490, ICD10: J32.9, J40 (primary diagnosis) - Will begin treatment with as per antibiotic as written, see orders We reviewed medication interaction with macrolides. - PREDNISONE 20 MG TABLET - AMOXICILLIN 875 MG TABLET - BENZONATATE 100 MG CAPSULE 2. Irritable bowel syndrome, unspecified type - ICD9: 564.1, ICD10: K58.9 He has refills. 3. Asthma, moderate persistent, well-controlled - ICD9: 493.90, ICD10: J45.40 Exacerbation. - Continue current medications - PREDNISONE 20 MG TABLET No chest imaging for now. He felt most symptoms were from postnasal drainage. George Mata MD documented in this encounterG[facility]04-02-2024 Miscellaneous Notes* Telephone Encounter - Jonathan Hawkins [facility] - 11/10/2023 8:15 AM EDT [facility] Anticoagulation Episode Summary Anticoagulation Care Providers Provider Role Specialty Phone number George aMta MD [facility] Internal Medicine [phone] Bessy Valverde is a 77 year old year old male patient being evaluated today for a Telemanagement visit. Patient is currently on the following anticoagulant(s) Warfarin. Labs PT INR (no units) Date Value 11/19/2021 2.7 biotel 11/05/2021 2.5 10/22/2021 2.8 biotel INR Home CoaguChek (no units) Date Value 11/10/2023 3.2 10/27/2023 2.8 10/13/2023 3.0 Hemoglobin (g/dL) Date Value 01/23/2023 12.0 09/23/2021 13.8 Hematocrit (%) Date Value 01/23/2023 37.4 09/23/2021 44.4 Platelet Count (k/uL) Date Value 01/23/2023 128 09/23/2021 160 Creatinine (mg/dL) Date Value 07/29/2023 1.35 01/23/2023 1.27 07/24/2022 1.24 09/23/2021 1.18 09/02/2021 1.31 08/05/2021 1.68 Bilirubin, Total (mg/dL) Date Value 07/29/2023 1.5 08/22/2021 1.2 ALT (U/L) Date Value 07/29/2023 19 08/22/2021 36 AST (U/L) Date Value 07/29/2023 27 08/22/2021 45 CrCl cannot be calculated (Unknown ideal weight.). ALLERGIES No Known Allergies Indication for Warfarin: Anticoagulation Episode Summary Current INR goal: 2.0-3.0 Assessment: INR result of 3.2 is SUPRAtherapeutic due to: APAP or NSAID use for head cold Plan: Current Warfarin Dosing As of 11/10/2023 Full warfarin instructions: 11/10: 2.5 mg; Otherwise 5 mg every Mon, Wed, Fri; 2.5 mg all other days Called and spoke to patient/caregiver Advised patient to decrease dose for 1 day only then resume weekly regimen Next home INR check scheduled on 11/24/2023 Patient verbalizes understanding of the plan. Jonathan Hawkins [facility] Clinical Pharmacist, Pharmacy Anticoagulation Clinic Pharmacy Antico[facility] Pager: [phone]. documented in this encounterGlenbeigh Hospital03-19-2024 Miscellaneous Notes* Telephone Encounter - Jonathan Hawkins RPh - 10/27/2023 11:18 AM EDT [facility] Anticoagulation Episode Summary Anticoagulation Care Providers Provider Role Specialty Phone number George Mata MD [facility] Internal Medicine [phone] Bessy Valverde is a 77 year old year old male patient being evaluated today for a Telemanagement visit. Patient is currently on the following anticoagulant(s) Warfarin. Labs PT INR (no units) Date Value 11/19/2021 2.7 biotel 11/05/2021 2.5 10/22/2021 2.8 biotel INR Home CoaguChek (no units) Date Value 10/27/2023 2.8 10/13/2023 3.0 09/29/2023 2.8 Hemoglobin (g/dL) Date Value 01/23/2023 12.0 09/23/2021 13.8 Hematocrit (%) Date Value 01/23/2023 37.4 09/23/2021 44.4 Platelet Count (k/uL) Date Value 01/23/2023 128 09/23/2021 160 Creatinine (mg/dL) Date Value 07/29/2023 1.35 01/23/2023 1.27 07/24/2022 1.24 09/23/2021 1.18 09/02/2021 1.31 08/05/2021 1.68 Bilirubin, Total (mg/dL) Date Value 07/29/2023 1.5 08/22/2021 1.2 ALT (U/L) Date Value 07/29/2023 19 08/22/2021 36 AST (U/L) Date Value 07/29/2023 27 08/22/2021 45 CrCl cannot be calculated (Unknown ideal weight.). ALLERGIES No Known Allergies Indication for Warfarin: Anticoagulation Episode Summary Current INR goal: 2.0-3.0 Assessment: INR result of 2.8 is therapeutic Plan: Current Warfarin Dosing As of 10/27/2023 Full warfarin instructions: 5 mg every Mon, Wed, Fri; 2.5 mg all other days Called and spoke to patient/caregiver Advised patient to continue current weekly dose as noted above Next home INR check scheduled on 11/10/2023 Patient verbalizes understanding of the plan. Jonathan Hawkins RPh Clinical Pharmacist, Pharmacy Anticoagulation Clinic Pharmacy Anticoagulation Clinic Pager: [phone]. documented in this encounterGlenbeigh Hospital03-05-2024 Miscellaneous Notes* Telephone Encounter - Jonathan Hawkins RPh - 10/13/2023 7:48 AM EST [facility] Anticoagulation Episode Summary Anticoagulation Care Providers Provider Role Specialty Phone number George Mata MD [facility] Internal Medicine [phone] Bessy Valverde is a 77 year old year old male patient being evaluated today for a Telemanagement visit. Patient is currently on the following anticoagulant(s) Warfarin. Labs PT INR (no units) Date Value 11/19/2021 2.7 biotel 11/05/2021 2.5 10/22/2021 2.8 biotel INR Home CoaguChek (no units) Date Value 10/13/2023 3.0 09/29/2023 2.8 09/15/2023 3.2 Hemoglobin (g/dL) Date Value 01/23/2023 12.0 09/23/2021 13.8 Hematocrit (%) Date Value 01/23/2023 37.4 09/23/2021 44.4 Platelet Count (k/uL) Date Value 01/23/2023 128 09/23/2021 160 Creatinine (mg/dL) Date Value 07/29/2023 1.35 01/23/2023 1.27 07/24/2022 1.24 09/23/2021 1.18 09/02/2021 1.31 08/05/2021 1.68 Bilirubin, Total (mg/dL) Date Value 07/29/2023 1.5 08/22/2021 1.2 ALT (U/L) Date Value 07/29/2023 19 08/22/2021 36 AST (U/L) Date Value 07/29/2023 27 08/22/2021 45 CrCl cannot be calculated (Unknown ideal weight.). ALLERGIES No Known Allergies Indication for Warfarin: Anticoagulation Episode Summary Current INR goal: 2.0-3.0 Assessment: INR result of 3.0 is therapeutic Plan: Current Warfarin Dosing As of 10/13/2023 Full warfarin instructions: 5 mg every Mon, Wed, Fri; 2.5 mg all other days Called and spoke to patient/caregiver Advised patient to continue current weekly dose as noted above Next home INR check scheduled on 10/27/2023 Patient verbalizes understanding of the plan. Jonathan Hawkins RPh Clinical Pharmacist, Pharmacy Anticoagulation Clinic Pharmacy Anticoagulation Clinic Pager: [phone]. documented in this encounterGlenbeigh Hospital02-20-2024 Miscellaneous Notes* Telephone Encounter - Jonathan Hawkins RPh - 09/29/2023 8:01 AM EST [facility] Anticoagulation Episode Summary Anticoagulation Care Providers Provider Role Specialty Phone number George Mata MD Responsible Internal Medicine [phone] Bessy Valverde is a 77 year old year old male patient being evaluated today for a Telemanagement visit. Patient is currently on the following anticoagulant(s) Warfarin. Labs PT INR (no units) Date Value 11/19/2021 2.7 biotel 11/05/2021 2.5 10/22/2021 2.8 biotel INR Home CoaguChek (no units) Date Value 09/29/2023 2.8 09/15/2023 3.2 09/01/2023 4.4 Hemoglobin (g/dL) Date Value 01/23/2023 12.0 09/23/2021 13.8 Hematocrit (%) Date Value 01/23/2023 37.4 09/23/2021 44.4 Platelet Count (k/uL) Date Value 01/23/2023 128 09/23/2021 160 Creatinine (mg/dL) Date Value 07/29/2023 1.35 01/23/2023 1.27 07/24/2022 1.24 09/23/2021 1.18 09/02/2021 1.31 08/05/2021 1.68 Bilirubin, Total (mg/dL) Date Value 07/29/2023 1.5 08/22/2021 1.2 ALT (U/L) Date Value 07/29/2023 19 08/22/2021 36 AST (U/L) Date Value 07/29/2023 27 08/22/2021 45 CrCl cannot be calculated (Unknown ideal weight.). ALLERGIES No Known Allergies Indication for Warfarin: Anticoagulation Episode Summary Current INR goal: 2.0-3.0 Assessment: INR result of 2.8 is therapeutic Plan: Current Warfarin Dosing As of 09/29/2023 Full warfarin instructions: 5 mg every Mon, Wed, Fri; 2.5 mg all other days Called and spoke to patient/caregiver Advised patient to continue current weekly dose as noted above Next home INR check scheduled on 10/13/2023 Patient verbalizes understanding of the plan. Jonathan Hawkins RPh Clinical Pharmacist, Pharmacy Anticoagulation Clinic Pharmacy Anticoagulation Clinic Pager: [phone]. documented in this encounterGlenbeigh Hospital02-06-2024 Miscellaneous Notes* Telephone Encounter - Jonathan Hawkins RPh - 09/15/2023 8:01 AM EST [facility] Anticoagulation Episode Summary Anticoagulation Care Providers Provider Role Specialty Phone number George Mata MD Responsible Internal Medicine [phone] Bessy Valverde is a 77 year old year old male patient being evaluated today for a Telemanagement visit. Patient is currently on the following anticoagulant(s) Warfarin. Labs PT INR (no units) Date Value 11/19/2021 2.7 biotel 11/05/2021 2.5 10/22/2021 2.8 biotel INR Home CoaguChek (no units) Date Value 09/15/2023 3.2 09/01/2023 4.4 08/18/2023 1.4 Hemoglobin (g/dL) Date Value 01/23/2023 12.0 09/23/2021 13.8 Hematocrit (%) Date Value 01/23/2023 37.4 09/23/2021 44.4 Platelet Count (k/uL) Date Value 01/23/2023 128 09/23/2021 160 Creatinine (mg/dL) Date Value 07/29/2023 1.35 01/23/2023 1.27 07/24/2022 1.24 09/23/2021 1.18 09/02/2021 1.31 08/05/2021 1.68 Bilirubin, Total (mg/dL) Date Value 07/29/2023 1.5 08/22/2021 1.2 ALT (U/L) Date Value 07/29/2023 19 08/22/2021 36 AST (U/L) Date Value 07/29/2023 27 08/22/2021 45 CrCl cannot be calculated (Unknown ideal weight.). ALLERGIES No Known Allergies Indication for Warfarin: Anticoagulation Episode Summary Current INR goal: 2.0-3.0 Assessment: INR result of 3.2 is SUPRAtherapeutic due to: No obvious cause Patient denies any medication changes, grapefruit/cranberry ingestion, OTC/herbal/nutritional supplement use, accidental over dosage, changes in warfarin tablet color/shape/car park attendant, eating less green vegetables, recent illness/fever/nausea/vomiting/diarrhea, increased edema/SOB, or ETOH consump tion. Plan: Current Warfarin Dosing As of 09/15/2023 Full warfarin instructions: 09/16: 2.5 mg; Otherwise 5 mg every Mon, Wed, Fri; 2.5 mg all other days Called and spoke to patient/caregiver Advised patient to decrease dose for 1 day only then resume weekly regimen Next home INR check scheduled on 09/29/2023 Patient verbalizes understanding of the plan. Jonathan Hawkins RPh Clinical Pharmacist, Pharmacy Anticoagulation Clinic Pharmacy Anticoagulation Clinic Pager: [phone]. documented in this encounterGlenbeigh Hospital11-28-2023 Miscellaneous Notes* Telephone Encounter - Jonathan Hawkins RPh - 07/07/2023 7:53 AM EST [facility] Anticoagulation Episode Summary Anticoagulation Care Providers Provider Role Specialty Phone number George Mata MD [facility] Internal Medicine [phone] Bessy Valverde is a 77 year old year old male patient being evaluated today for a Telemanagement visit. Patient is currently on the following anticoagulant(s) Warfarin. Labs PT INR (no units) Date Value 11/19/2021 2.7 biotel 11/05/2021 2.5 10/22/2021 2.8 biotel INR Home CoaguChek (no units) Date Value 07/07/2023 2.0 06/23/2023 3.5 06/09/2023 2.8 Hemoglobin (g/dL) Date Value 01/23/2023 12.0 09/23/2021 13.8 Hematocrit (%) Date Value 01/23/2023 37.4 09/23/2021 44.4 Platelet Count (k/uL) Date Value 01/23/2023 128 09/23/2021 160 Creatinine (mg/dL) Date Value 01/23/2023 1.27 07/24/2022 1.24 01/22/2022 1.41 09/23/2021 1.18 09/02/2021 1.31 08/05/2021 1.68 Bilirubin, Total (mg/dL) Date Value 07/24/2022 0.8 08/22/2021 1.2 ALT (U/L) Date Value 07/24/2022 18 08/22/2021 36 AST (U/L) Date Value 07/24/2022 25 08/22/2021 45 CrCl cannot be calculated (Unknown ideal weight.). ALLERGIES No Known Allergies Indication for Warfarin: Anticoagulation Episode Summary Current INR goal: 2.0-3.0 Assessment: INR result of 2.0 is therapeutic Plan: Current Warfarin Dosing As of 07/07/2023 Full warfarin instructions: 5 mg every Mon, Wed, Fri; 2.5 mg all other days Called and spoke to patient/caregiver Advised patient to continue current weekly dose as noted above Next home INR check scheduled on 07/21/2023 Patient verbalizes understanding of the plan. Jonathan Hawkins RPh Clinical Pharmacist, Pharmacy Anticoagulation Clinic Pharmacy Anticoagulation Clinic Pager: [phone]. documented in this encounterGlenbeigh Hospital11-14-2023 Miscellaneous Notes* Telephone Encounter - Jonathan Hawkins RPh - 06/23/2023 7:57 AM EST [facility] Anticoagulation Episode Summary Anticoagulation Care Providers Provider Role Specialty Phone number George Mata MD Responsible Internal Medicine [phone] Bessy Valverde is a 77 year old year old male patient being evaluated today for a Telemanagement visit. Patient is currently on the following anticoagulant(s) Warfarin. Labs PT INR (no units) Date Value 11/19/2021 2.7 biotel 11/05/2021 2.5 10/22/2021 2.8 biotel INR Home CoaguChek (no units) Date Value 06/23/2023 3.5 06/09/2023 2.8 05/26/2023 1.2 Hemoglobin (g/dL) Date Value 01/23/2023 12.0 09/23/2021 13.8 Hematocrit (%) Date Value 01/23/2023 37.4 09/23/2021 44.4 Platelet Count (k/uL) Date Value 01/23/2023 128 09/23/2021 160 Creatinine (mg/dL) Date Value 01/23/2023 1.27 07/24/2022 1.24 01/22/2022 1.41 09/23/2021 1.18 09/02/2021 1.31 08/05/2021 1.68 Bilirubin, Total (mg/dL) Date Value 07/24/2022 0.8 08/22/2021 1.2 ALT (U/L) Date Value 07/24/2022 18 08/22/2021 36 AST (U/L) Date Value 07/24/2022 25 08/22/2021 45 CrCl cannot be calculated (Unknown ideal weight.). ALLERGIES No Known Allergies Indication for Warfarin: Anticoagulation Episode Summary Current INR goal: 2.0-3.0 Assessment: INR result of 3.5 is SUPRAtherapeutic due to: No obvious cause Patient denies any medication changes, grapefruit/cranberry ingestion, OTC/herbal/nutritional supplement use, accidental over dosage, changes in warfarin tablet color/shape/car park attendant, eating less green vegetables, recent illness/fever/nausea/vomiting/diarrhea, increased edema/SOB, or ETOH consump tion. Plan: Current Warfarin Dosing As of 06/23/2023 Full warfarin instructions: 06/24: 2.5 mg; Otherwise 5 mg every Mon, Wed, Fri; 2.5 mg all other days Called and spoke to patient/caregiver Advised patient to decrease dose for 1 day only then resume weekly regimen Next home INR check scheduled on 07/07/2023 Patient verbalizes understanding of the plan. Jonathan Hawkins RPh Clinical Pharmacist, Pharmacy Anticoagulation Clinic Pharmacy Anticoagulation Clinic Pager: [phone]. documented in this encounterGlenbeigh Hospital10-31-2023 Miscellaneous Notes* Telephone Encounter - Jonathan Hawkins RPh - 06/09/2023 8:25 AM EDT [facility] Anticoagulation Episode Summary Anticoagulation Care Providers Provider Role Specialty Phone number George Mata MD Responsible Internal Medicine [phone] Bessy Valverde is a 77 year old year old male patient being evaluated today for a Telemanagement visit. Patient is currently on the following anticoagulant(s) Warfarin. Labs PT INR (no units) Date Value 11/19/2021 2.7 biotel 11/05/2021 2.5 10/22/2021 2.8 biotel INR Home CoaguChek (no units) Date Value 06/09/2023 2.8 05/26/2023 1.2 05/12/2023 2.6 Hemoglobin (g/dL) Date Value 01/23/2023 12.0 09/23/2021 13.8 Hematocrit (%) Date Value 01/23/2023 37.4 09/23/2021 44.4 Platelet Count (k/uL) Date Value 01/23/2023 128 09/23/2021 160 Creatinine (mg/dL) Date Value 01/23/2023 1.27 07/24/2022 1.24 01/22/2022 1.41 09/23/2021 1.18 09/02/2021 1.31 08/05/2021 1.68 Bilirubin, Total (mg/dL) Date Value 07/24/2022 0.8 08/22/2021 1.2 ALT (U/L) Date Value 07/24/2022 18 08/22/2021 36 AST (U/L) Date Value 07/24/2022 25 08/22/2021 45 CrCl cannot be calculated (Unknown ideal weight.). ALLERGIES No Known Allergies Indication for Warfarin: Anticoagulation Episode Summary Current INR goal: 2.0-3.0 Assessment: INR result of 2.8 is therapeutic Plan: Current Warfarin Dosing As of 06/09/2023 Full warfarin instructions: 5 mg every Mon, Wed, Fri; 2.5 mg all other days Called and spoke to patient/caregiver Advised patient to continue current weekly dose as noted above Next home INR check scheduled on 06/23/2023 Patient verbalizes understanding of the plan. Jonathan Hawkins RPh Clinical Pharmacist, Pharmacy Anticoagulation Clinic Pharmacy Anticoagulation Clinic Pager: [phone]. documented in this encounterGlenbeigh Hospital10-09-2023 Miscellaneous Notes* Telephone Encounter - Daphney Obando LPN - 05/18/2023 10:41 AM EDT Patient has been identified by name and date of : Yes Patient phones for refill(s): Requested Prescriptions Pending Prescriptions Disp Refills nitroglycerin sublingual (NITROSTAT) 0.4 mg SL tablet 25 tablet 3 Sig: Dissolve 1 tablet under the tongue as needed. DISSOLVE ON TONGUE FOR CHEST PAIN. IF NO PAIN RELIEF, CALL 911 albuterol HFA (VENTOLIN HFA) 90 mcg/actuation inhaler 18 g 5 Sig: USE 2 INHALATIONS 4 TIMES A DAY IF NEEDED Date of last office visit in primary care: 01/23/2023 6 month follow-up: 07/29/2023 Last 2 Encounter Wt Readings: Date: Wt: 01/23/2023 81.2 kg (179 lb) 07/24/2022 80.7 kg (178 lb) Previous labs/tests for medication: Not applicable Please advise. Thank you. Daphney Obando LPN * Telephone Encounter - hCantel Soriano - 05/18/2023 9:00 AM EDT Patient has been identified by name and date of : Yes Requested Prescriptions Pending Prescriptions Disp Refills nitroglycerin sublingual (NITROSTAT) 0.4 mg SL tablet 25 tablet 3 Sig: Dissolve 1 tablet under the tongue as needed. DISSOLVE ON TONGUE FOR CHEST PAIN. IF NO PAIN RELIEF, CALL 911 albuterol HFA (VENTOLIN HFA) 90 mcg/actuation inhaler 18 g 5 Sig: USE 2 INHALATIONS 4 TIMES A DAY IF NEEDED RX INSTRUCTIONS: Patient aware RX will be sent to pharmacy. No need to notify patient. Chantel Dominguez documented in this encounterGlenbeigh Hospital09-05-2023 Miscellaneous Notes* Telephone Encounter - Jonathan Hawkins [facility] - 04/14/2023 7:49 AM EDT [facility] Anticoagulation Episode Summary Anticoagulation Care Providers Provider Role Specialty Phone number George Mata MD Responsible Internal Medicine [phone] Bessy Valverde is a 77 year old year old male patient being evaluated today for a Telemanagement visit. Patient is currently on the following anticoagulant(s) Warfarin. Labs PT INR (no units) Date Value 11/19/2021 2.7 biotel 11/05/2021 2.5 10/22/2021 2.8 biotel INR Home CoaguChek (no units) Date Value 04/14/2023 2.9 03/31/2023 2.9 03/17/2023 2.7 Hemoglobin (g/dL) Date Value 01/23/2023 12.0 09/23/2021 13.8 Hematocrit (%) Date Value 01/23/2023 37.4 09/23/2021 44.4 Platelet Count (k/uL) Date Value 01/23/2023 128 09/23/2021 160 Creatinine (mg/dL) Date Value 01/23/2023 1.27 07/24/2022 1.24 01/22/2022 1.41 09/23/2021 1.18 09/02/2021 1.31 08/05/2021 1.68 Bilirubin, Total (mg/dL) Date Value 07/24/2022 0.8 08/22/2021 1.2 ALT (U/L) Date Value 07/24/2022 18 08/22/2021 36 AST (U/L) Date Value 07/24/2022 25 08/22/2021 45 Estimated Creatinine Clearance: 47.3 mL/min (A) (based on SCr of 1.27 mg/dL (H)). ALLERGIES No Known Allergies Indication for Warfarin: Anticoagulation Episode Summary Current INR goal: 2.0-3.0 Assessment: INR result of 2.9 is therapeutic Plan: Current Warfarin Dosing As of 04/14/2023 Full warfarin instructions: 5 mg every Mon, Wed, Fri; 2.5 mg all other days Called and spoke to patient/caregiver Advised patient to continue current weekly dose as noted above Next home INR check scheduled on 04/28/2023 Patient verbalizes understanding of the plan. Jonathan Hawkins RPh Clinical Pharmacist, Pharmacy Anticoagulation Clinic Pharmacy Anticoagulation Clinic Pager: [phone]. documented in this encounterGlenbeigh Hospital08-22-2023 Miscellaneous Notes* Telephone Encounter - Jonathan Hawkins RPh - 03/31/2023 7:59 AM EDT [facility] Anticoagulation Episode Summary Anticoagulation Care Providers Provider Role Specialty Phone number George Mata MD Responsible Internal Medicine [phone] Bessy Valverde is a 77 year old year old male patient being evaluated today for a Telemanagement visit. Patient is currently on the following anticoagulant(s) Warfarin. Labs PT INR (no units) Date Value 11/19/2021 2.7 biotel 11/05/2021 2.5 10/22/2021 2.8 biotel INR Home CoaguChek (no units) Date Value 03/31/2023 2.9 03/17/2023 2.7 03/03/2023 2.6 Hemoglobin (g/dL) Date Value 01/23/2023 12.0 09/23/2021 13.8 Hematocrit (%) Date Value 01/23/2023 37.4 09/23/2021 44.4 Platelet Count (k/uL) Date Value 01/23/2023 128 09/23/2021 160 Creatinine (mg/dL) Date Value 01/23/2023 1.27 07/24/2022 1.24 01/22/2022 1.41 09/23/2021 1.18 09/02/2021 1.31 08/05/2021 1.68 Bilirubin, Total (mg/dL) Date Value 07/24/2022 0.8 08/22/2021 1.2 ALT (U/L) Date Value 07/24/2022 18 08/22/2021 36 AST (U/L) Date Value 07/24/2022 25 08/22/2021 45 Estimated Creatinine Clearance: 47.3 mL/min (A) (based on SCr of 1.27 mg/dL (H)). ALLERGIES No Known Allergies Indication for Warfarin: Anticoagulation Episode Summary Current INR goal: 2.0-3.0 Assessment: INR result of 2.9 is therapeutic Plan: Current Warfarin Dosing As of 03/31/2023 Full warfarin instructions: 5 mg every Mon, Wed, Fri; 2.5 mg all other days Called and spoke to patient/caregiver Advised patient to continue current weekly dose as noted above Next home INR check scheduled on 04/14/2023 Patient verbalizes understanding of the plan. Jonathan Hawkins RPh Clinical Pharmacist, Pharmacy Anticoagulation Clinic Pharmacy Anticoagulation Clinic Pager: [phone]. documented in this encounterGlenbeigh Hospital08-08-2023 Miscellaneous Notes* Telephone Encounter - Jonathan Hawkins RPh - 03/17/2023 8:05 AM EDT [facility] Anticoagulation Episode Summary Anticoagulation Care Providers Provider Role Specialty Phone number George Mata MD [facility] Internal Medicine [phone] Bessy Valverde is a 77 year old year old male patient being evaluated today for a Telemanagement visit. Patient is currently on the following anticoagulant(s) Warfarin. Labs PT INR (no units) Date Value 11/19/2021 2.7 biotel 11/05/2021 2.5 10/22/2021 2.8 biotel INR Home CoaguChek (no units) Date Value 03/17/2023 2.7 03/03/2023 2.6 02/17/2023 2.3 Hemoglobin (g/dL) Date Value 01/23/2023 12.0 09/23/2021 13.8 Hematocrit (%) Date Value 01/23/2023 37.4 09/23/2021 44.4 Platelet Count (k/uL) Date Value 01/23/2023 128 09/23/2021 160 Creatinine (mg/dL) Date Value 01/23/2023 1.27 07/24/2022 1.24 01/22/2022 1.41 09/23/2021 1.18 09/02/2021 1.31 08/05/2021 1.68 Bilirubin, Total (mg/dL) Date Value 07/24/2022 0.8 08/22/2021 1.2 ALT (U/L) Date Value 07/24/2022 18 08/22/2021 36 AST (U/L) Date Value 07/24/2022 25 08/22/2021 45 Estimated Creatinine Clearance: 47.3 mL/min (A) (based on SCr of 1.27 mg/dL (H)). ALLERGIES No Known Allergies Indication for Warfarin: Anticoagulation Episode Summary Current INR goal: 2.0-3.0 Assessment: INR result of 2.7 is therapeutic Plan: Current Warfarin Dosing As of 03/17/2023 Full warfarin instructions: 5 mg every Mon, Wed, Fri; 2.5 mg all other days Called and spoke to patient/caregiver Advised patient to continue current weekly dose as noted above Next home INR check scheduled on 03/31/2023 Patient verbalizes understanding of the plan. Jonathan Hawkins RPh Clinical Pharmacist, Pharmacy Anticoagulation Clinic Pharmacy [facility] Pager: [phone]. documented in this encounterGlenbeigh Hospital07-27-2023 Miscellaneous Notes* Telephone Encounter - Shruthi Osborne MA - 03/05/2023 7:19 PM EDT Confirmed with pharmacy received RX. Attempted to contact patient. Unable to reach. Left detailed message on VM. Shruthi Osborne MA * Telephone Encounter - George Mata MD - 03/05/2023 5:12 PM EDT Patient's request for medication is as follows Requested Prescriptions Signed Prescriptions Disp Refills teifwpzol-eyufve-rjebhinz-scop () 16.2-0.1037 -0.0194 mg per tablet 240 tablet 0 Sig: Take 1 tablet by mouth every 6 hours as needed. Authorizing Provider: GEORGE MATA Sent again to Mail Order. Order entered - please phone pharmacy and notify patient. George Mata MD * Telephone Encounter - Francois Nguyen RN - 03/05/2023 11:43 AM EDT Pt's Eileen reports [facility] Pharmacist tells them pharmacy never received Rx. Rx on med-list shows receipt confirms pharmacy did receive the script on 02/27/23. This nurse called Tia from [facility] and Tia reports pharmacy never received the Rx. Please advise. documented in this encounterGlenbeigh Hospital07-11-2023 Miscellaneous Notes* Telephone Encounter - Jonathan Hawkins RPh - 02/17/2023 9:24 AM EDT [facility] Anticoagulation Episode Summary Anticoagulation Care Providers Provider Role Specialty Phone number George Mata MD [facility] Internal Medicine [phone] Bessy Valverde is a 77 year old year old male patient being evaluated today for a Telemanagement visit. Patient is currently on the following anticoagulant(s) Warfarin. Labs PT INR (no units) Date Value 11/19/2021 2.7 biotel 11/05/2021 2.5 10/22/2021 2.8 biotel INR Home CoaguChek (no units) Date Value 02/17/2023 2.3 02/03/2023 2.2 01/20/2023 2.2 Hemoglobin (g/dL) Date Value 01/23/2023 12.0 09/23/2021 13.8 Hematocrit (%) Date Value 01/23/2023 37.4 09/23/2021 44.4 Platelet Count (k/uL) Date Value 01/23/2023 128 09/23/2021 160 Creatinine (mg/dL) Date Value 01/23/2023 1.27 07/24/2022 1.24 01/22/2022 1.41 09/23/2021 1.18 09/02/2021 1.31 08/05/2021 1.68 Bilirubin, Total (mg/dL) Date Value 07/24/2022 0.8 08/22/2021 1.2 ALT (U/L) Date Value 07/24/2022 18 08/22/2021 36 AST (U/L) Date Value 07/24/2022 25 08/22/2021 45 Estimated Creatinine Clearance: 47.3 mL/min (A) (based on SCr of 1.27 mg/dL (H)). ALLERGIES No Known Allergies Indication for Warfarin: Anticoagulation Episode Summary Current INR goal: 2.0-3.0 Assessment: INR result of 2.3 is therapeutic Plan: Current Warfarin Dosing As of 02/17/2023 Full warfarin instructions: 5 mg every Mon, Wed, Fri; 2.5 mg all other days Called and spoke to patient/caregiver spouse Advised patient to continue current weekly dose as noted above Next home INR check scheduled on 03/03/2023 Patient's caregiver verbalizes understanding of the plan. Jonathan Hawkins RPh Clinical Pharmacist, Pharmacy Anticoagulation Clinic Pharmacy Anticoagulation Clinic Pager: [phone]. documented in this encounterGlenbeigh Hospital06-27-2023 Miscellaneous Notes* Telephone Encounter - Lian Coulter RPh - 02/03/2023 7:37 AM EDT [facility] Anticoagulation Episode Summary Anticoagulation Care Providers Provider Role Specialty Phone number George Mata MD [facility] Internal Medicine [phone] Bessy Valverde is a 77 year old year old male patient being evaluated today for a Telemanagement visit. Patient is currently on the following anticoagulant(s) Warfarin. Labs PT INR (no units) Date Value 11/19/2021 2.7 biotel 11/05/2021 2.5 10/22/2021 2.8 biotel INR Home CoaguChek (no units) Date Value 02/03/2023 2.2 01/20/2023 2.2 01/06/2023 2.3 Hemoglobin (g/dL) Date Value 01/23/2023 12.0 09/23/2021 13.8 Hematocrit (%) Date Value 01/23/2023 37.4 09/23/2021 44.4 Platelet Count (k/uL) Date Value 01/23/2023 128 09/23/2021 160 Creatinine (mg/dL) Date Value 01/23/2023 1.27 07/24/2022 1.24 01/22/2022 1.41 09/23/2021 1.18 09/02/2021 1.31 08/05/2021 1.68 Bilirubin, Total (mg/dL) Date Value 07/24/2022 0.8 08/22/2021 1.2 ALT (U/L) Date Value 07/24/2022 18 08/22/2021 36 AST (U/L) Date Value 07/24/2022 25 08/22/2021 45 Estimated Creatinine Clearance: 47.3 mL/min (A) (based on SCr of 1.27 mg/dL (H)). ALLERGIES No Known Allergies Indication for Warfarin: Permanent atrial fibrillation (hcc) [facility] (current) use of anticoagulants Anticoagulation Episode Summary Current INR goal: 2.0-3.0 Assessment: INR result of 2.2 is therapeutic Plan: Current Warfarin Dosing As of 02/03/2023 Full warfarin instructions: 5 mg every Mon, Wed, Fri; 2.5 mg all other days Called and spoke to patient/caregiver Advised patient to continue current weekly dose as noted above Next home INR check scheduled on 02/17/2023 Patient verbalizes understanding of the plan. Patient denies need for refills. Lian Coulter [facility] Clinical Pharmacist, Pharmacy Anticoagulation Clinic Pharmacy Anticoagulation Clinic Pager: [phone]. documented in this [facility]06-21-2023 Miscellaneous Notes* Telephone Encounter - Daphney Obando LPN - 01/28/2023 1:03 PM EDT Below results left on identified vm. Daphney Obando LPN * Telephone Encounter - Daphney Obando LPN - 01/28/2023 1:01 PM EDT ----- Message from George Mata MD sent at 01/28/2023 12:58 PM EDT ----- Diabetes controlled. CKD stable. .Continue current treatments. documented in this [facility]06-16-2023 Instructions* Patient Instructions* George Mata MD - 01/23/2023 9:29 AM EDT BLOOD WORK TODAY. FASTING BLOOD WORK AND URINE TEST IN July. documented in this [facility]06-16-2023 History of Present illness Narrative* George Mata MD - 01/23/2023 9:16 AM EDT This note was created using M/[employer] Technology Solutionsriter. Subjective Bessy Valverde is a 77 year old male. 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 No medication changes were made. His main complaint was recurring gout attacks on either foot every other month. Review of Systems Constitutional: Negative for fever and unexpected weight change. Respiratory: Negative for cough, shortness of breath and wheezing. Cardiovascular: Negative for chest pain, palpitations and leg swelling. Musculoskeletal: Positive for arthralgias. Neurological: Negative for dizziness and headaches. Psychiatric/Behavioral: Negative for dysphoric mood. 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 Disease, Without Long-Term Current Use of Insulin (Hcc) Aortic Valve Stenosis Chronic Systolic Heart Failure (Hcc) Other Insomnia Mcc (Current) Use of Anticoagulants Acute Gout of Left Foot Anemia Due to Stage 3 Chronic Kidney Disease (Hcc) Thrombocytopenia (Hcc) 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 Vaping Use Vaping Use: Never used Substance Use Topics Alcohol use: No Drug use: No Current Outpatient Medications Medication Sig fluticasone-salmeterol (ADVAIR DISKUS) 100-50 mcg/dose inhaler Inhale 1 Puff as instructed twice daily. Rinse mouth out after use with water. albuterol HFA (VENTOLIN HFA) 90 mcg/actuation inhaler USE 2 INHALATIONS 4 TIMES A DAY IF NEEDED atorvastatin (LIPITOR) 40 mg tablet Take 1 tablet by mouth once daily. pantoprazole DR (PROTONIX) 20 mg tablet Take 1 tablet by mouth daily before breakfast. Take on empty stomach, 1/2 hr before meal. bumetanide (BUMEX) 1 mg tablet One tablet every other day; OR daily, depending on weight gain, fluid retention. dqmicoeds-gzmhtl-qfmnyfrv-scop () 16.2-0.1037 -0.0194 mg per tablet Take 1 tablet by mouth every 6 hours as needed. nitroglycerin sublingual (NITROSTAT) 0.4 mg SL tablet Dissolve 1 tablet under the tongue as needed.DISSOLVE ON TONGUE FOR CHEST PAIN. IF NO PAIN RELIEF, CALL 911 warfarin (COUMADIN) 5 mg tablet 2.5 mg every Thu, Thu, Thu; 5 mg all other days ENTRESTO 24-26 mg tablet Take 1 tablet by mouth twice daily. sotalol (BETAPACE) 80 mg tablet Take 2 tablets by mouth twice daily. spironolactone (ALDACTONE) 25 mg tablet Take 25 mg by mouth once daily. LOW-DOSE ASPIRIN ORAL Take 1 tablet by mouth once daily. blood sugar diagnostic (BLOOD GLUCOSE TEST) test strip Test blood sugar(s) one times daily. Dx: Type 2 DM - Controlled E11.9 Insulin: No Blood-Glucose Meter monitoring kit Glucose Meter of Choice - Kit - Dx: Type 2 DM - Controlled E11.9 No current facility-administered medications for this visit. Objective BP 110/60 Pulse 70 Wt 81.2 kg (179 lb) SpO2 98% BMI 26.74 kg/m Physical Exam Constitutional: General: He is not in acute distress. Appearance: He is not ill-appearing. Cardiovascular: Rate and Rhythm: Normal rate and regular rhythm. Heart sounds: No murmur heard. No gallop. Pulmonary: Effort: No respiratory distress. Breath sounds: Rales present. No wheezing. Musculoskeletal: General: No tenderness. Right lower leg: No edema. Left lower leg: No edema. Neurological: Mental Status: He is alert. Gait: Gait normal. Depression Screening 01/06/2018 01/17/2021 07/24/2022 01/23/2023 PHQ-2 Score 0 0 0 0 Depression screening tool completed and reviewed. Based on score and interview, patient is not at risk for depression. Screening tool discussed with patient, and I recommended no further interventionat this time. Assessment and Plan 1. Acute idiopathic gout of foot, unspecified laterality - ICD9: 274.01, ICD10: M10.079 (primary diagnosis) - URIC ACID BLOOD - We discussed allopurinol if indicated based on labs. Discussed medication dosage, usage, goals oftherapy, and side effects. 2. Interstitial lung disease (HCC) - ICD9: 515, ICD10: J84.9 Stable. 3. Controlled type 2 diabetes mellitus with stage 3 chronic kidney disease, without long-term current use of insulin (HCC) - ICD9: 250.40, 585.3, ICD10: E11.22, N18.30 - Controlled - Continue current medications - BASIC METABOLIC PNL - HGB A1C - COMP METABOLIC PANEL - LIPID PANEL BASIC - HGB A1C - ALBUMIN/CREAT RATIO RND UR 4. Thrombocytopenia (HCC) - ICD9: 287.5, ICD10: D69.6 Recheck. - CBC 5. Chronic systolic heart failure (HCC) - ICD9: 428.22, ICD10: I50.22 Stable. 6. Ventricular tachycardia (HCC) - ICD9: 427.1, ICD10: I47.20 Controlled. George Mata MD documented in this encounterGlenbeigh Hospital05-30-2023 Miscellaneous Notes* Telephone Encounter - Jonathan Hawkins [facility] - 01/06/2023 9:40 AM EDT [facility] Anticoagulation Episode Summary Anticoagulation Care Providers Provider Role Specialty Phone number George Mata MD Responsible Internal Medicine [phone] Bessy Valverde is a 77 year old year old male patient being evaluated today for a Telemanagement visit. Patient is currently on the following anticoagulant(s) Warfarin. Labs PT INR (no units) Date Value 11/19/2021 2.7 biotel 11/05/2021 2.5 10/22/2021 2.8 biotel INR Home CoaguChek (no units) Date Value 01/06/2023 2.3 12/23/2022 2.3 12/09/2022 2.1 Hemoglobin (g/dL) Date Value 07/24/2022 13.3 09/23/2021 13.8 Hematocrit (%) Date Value 07/24/2022 42.5 09/23/2021 44.4 Platelet Count (k/uL) Date Value 07/24/2022 145 09/23/2021 160 Creatinine (mg/dL) Date Value 07/24/2022 1.24 01/22/2022 1.41 09/23/2021 1.18 09/02/2021 1.31 08/05/2021 1.68 Bilirubin, Total (mg/dL) Date Value 07/24/2022 0.8 08/22/2021 1.2 ALT (U/L) Date Value 07/24/2022 18 08/22/2021 36 AST (U/L) Date Value 07/24/2022 25 08/22/2021 45 CrCl cannot be calculated (Unknown ideal weight.). ALLERGIES No Known Allergies Indication for Warfarin: Anticoagulation Episode Summary Current INR goal: 2.0-3.0 Assessment: INR result of 2.3 is therapeutic Plan: Current Warfarin Dosing As of 01/06/2023 Full warfarin instructions: 5 mg every Mon, Wed, Fri; 2.5 mg all other days Called and spoke to patient/caregiver spouse Advised patient to continue current weekly dose as noted above Next home INR check scheduled on 01/20/2023 Patient verbalizes understanding of the plan. Jonathan Hawkins RPh Clinical Pharmacist, Pharmacy Anticoagulation Clinic Pharmacy Anticoagulation Clinic Pager: [phone]. documented in this encounterGlenbeigh Hospital05-16-2023 Miscellaneous Notes* Telephone Encounter - Jordyn Garcia RPh - 12/23/2022 9:05 AM EDT [facility] Anticoagulation Episode Summary Anticoagulation Care Providers Provider Role Specialty Phone number George Mata MD Responsible Internal Medicine [phone] Bessy Valverde is a 77 year old year old male patient being evaluated today for a Telemanagement visit. Patient is currently on the following anticoagulant(s) Warfarin. Labs PT INR (no units) Date Value 11/19/2021 2.7 biotel 11/05/2021 2.5 10/22/2021 2.8 biotel INR Home CoaguChek (no units) Date Value 12/23/2022 2.3 12/09/2022 2.1 11/25/2022 2.5 Hemoglobin (g/dL) Date Value 07/24/2022 13.3 09/23/2021 13.8 Hematocrit (%) Date Value 07/24/2022 42.5 09/23/2021 44.4 Platelet Count (k/uL) Date Value 07/24/2022 145 09/23/2021 160 Creatinine (mg/dL) Date Value 07/24/2022 1.24 01/22/2022 1.41 09/23/2021 1.18 09/02/2021 1.31 08/05/2021 1.68 Bilirubin, Total (mg/dL) Date Value 07/24/2022 0.8 08/22/2021 1.2 ALT (U/L) Date Value 07/24/2022 18 08/22/2021 36 AST (U/L) Date Value 07/24/2022 25 08/22/2021 45 CrCl cannot be calculated (Unknown ideal weight.). ALLERGIES No Known Allergies Indication for Warfarin: Anticoagulation Episode Summary Current INR goal: 2.0-3.0 Assessment: INR result of 2.3 is therapeutic Plan: Current Warfarin Dosing As of 12/23/2022 Full warfarin instructions: 5 mg every Mon, Wed, Fri; 2.5 mg all other days Called and spoke to patient/caregiver Advised patient to continue current weekly dose as noted above Next home INR check scheduled on 01/06/2023 Patient's caregiver verbalizes understanding of the plan. Patient denies need for refills. Jordyn Garcia [facility] Clinical Pharmacist, Pharmacy Anticoagulation Clinic Pharmacy Anticoagulation Clinic Pager: [phone]. documented in this encounterGlenbeigh Hospital05-02-2023 Miscellaneous Notes* Telephone Encounter - Jnoathan Hawkins RPh - 12/09/2022 9:00 AM EDT [facility] Anticoagulation Episode Summary Anticoagulation Care Providers Provider Role Specialty Phone number George Mtaa MD Responsible Internal Medicine [phone] Bessy Valverde is a 76 year old year old male patient being evaluated today for a Telemanagement visit. Patient is currently on the following anticoagulant(s) Warfarin. Labs PT INR (no units) Date Value 11/19/2021 2.7 biotel 11/05/2021 2.5 10/22/2021 2.8 biotel INR Home CoaguChek (no units) Date Value 12/09/2022 2.1 11/25/2022 2.5 11/11/2022 2.5 Hemoglobin (g/dL) Date Value 07/24/2022 13.3 09/23/2021 13.8 Hematocrit (%) Date Value 07/24/2022 42.5 09/23/2021 44.4 Platelet Count (k/uL) Date Value 07/24/2022 145 09/23/2021 160 Creatinine (mg/dL) Date Value 07/24/2022 1.24 01/22/2022 1.41 09/23/2021 1.18 09/02/2021 1.31 08/05/2021 1.68 Bilirubin, Total (mg/dL) Date Value 07/24/2022 0.8 08/22/2021 1.2 ALT (U/L) Date Value 07/24/2022 18 08/22/2021 36 AST (U/L) Date Value 07/24/2022 25 08/22/2021 45 CrCl cannot be calculated (Unknown ideal weight.). ALLERGIES No Known Allergies Indication for Warfarin: Anticoagulation Episode Summary Current INR goal: 2.0-3.0 Assessment: INR result of 2.1 is therapeutic Plan: Current Warfarin Dosing As of 12/09/2022 Full warfarin instructions: 5 mg every Mon, Wed, Fri; 2.5 mg all other days Called and spoke to patient/caregiver spou Advised patient to continue current weekly dose as noted above Next home INR check scheduled on 12/23/2022 Jonathan Hawkins RPh Clinical Pharmacist, Pharmacy Anticoagulation Clinic Pharmacy Anticoagulation Clinic Pager: [phone]. documented in this encounterGlenbeigh Hospital03-21-2023 Miscellaneous Notes* Telephone Encounter - Jonathan Hawkins RPh - 10/28/2022 8:12 AM EDT [facility] Anticoagulation Episode Summary Anticoagulation Care Providers Provider Role Specialty Phone number George Mata MD [facility] Internal Medicine [phone] Bessy Valverde is a 76 year old year old male patient being evaluated today for a Telemanagement visit. Patient is currently on the following anticoagulant(s) Warfarin. Labs PT INR (no units) Date Value 11/19/2021 2.7 biotel 11/05/2021 2.5 10/22/2021 2.8 biotel INR Home CoaguChek (no units) Date Value 10/28/2022 2.1 10/14/2022 1.7 09/30/2022 2.3 Hemoglobin (g/dL) Date Value 07/24/2022 13.3 09/23/2021 13.8 Hematocrit (%) Date Value 07/24/2022 42.5 09/23/2021 44.4 Platelet Count (k/uL) Date Value 07/24/2022 145 09/23/2021 160 Creatinine (mg/dL) Date Value 07/24/2022 1.24 01/22/2022 1.41 09/23/2021 1.18 09/02/2021 1.31 08/05/2021 1.68 Bilirubin, Total (mg/dL) Date Value 07/24/2022 0.8 08/22/2021 1.2 ALT (U/L) Date Value 07/24/2022 18 08/22/2021 36 AST (U/L) Date Value 07/24/2022 25 08/22/2021 45 CrCl cannot be calculated (Unknown ideal weight.). ALLERGIES No Known Allergies Indication for Warfarin: Anticoagulation Episode Summary Current INR goal: 2.0-3.0 Assessment: INR result of 2.1 is therapeutic Plan: Current Warfarin Dosing As of 10/28/2022 Full warfarin instructions: 5 mg every Mon, Wed, Fri; 2.5 mg all other days Called and spoke to patient/caregiver Advised patient to continue current weekly dose as noted above Next home INR check scheduled on 11/11/2022 Patient verbalizes understanding of the plan. Jonathan Hawkins RPh Clinical Pharmacist, Pharmacy Anticoagulation Clinic Pharmacy Anticoagulation Clinic Pager: [phone]. documented in this encounterGlenbeigh Hospital02-21-2023 Miscellaneous Notes* Telephone Encounter - Jonathan Hawkins RPh - 09/30/2022 8:05 AM EST [facility] Anticoagulation Episode Summary Anticoagulation Care Providers Provider Role Specialty Phone number George Mata MD [facility] Internal Medicine [phone] Bessy Valverde is a 76 year old year old male patient being evaluated today for a Telemanagement visit. Patient is currently on the following anticoagulant(s) Warfarin. Labs PT INR (no units) Date Value 11/19/2021 2.7 biotel 11/05/2021 2.5 10/22/2021 2.8 biotel INR Home CoaguChek (no units) Date Value 09/30/2022 2.3 09/16/2022 2.4 09/02/2022 2.4 Hemoglobin (g/dL) Date Value 07/24/2022 13.3 09/23/2021 13.8 Hematocrit (%) Date Value 07/24/2022 42.5 09/23/2021 44.4 Platelet Count (k/uL) Date Value 07/24/2022 145 09/23/2021 160 Creatinine (mg/dL) Date Value 07/24/2022 1.24 01/22/2022 1.41 09/23/2021 1.18 09/02/2021 1.31 08/05/2021 1.68 Bilirubin, Total (mg/dL) Date Value 07/24/2022 0.8 08/22/2021 1.2 ALT (U/L) Date Value 07/24/2022 18 08/22/2021 36 AST (U/L) Date Value 07/24/2022 25 08/22/2021 45 Estimated Creatinine Clearance: 49.3 mL/min (A) (based on SCr of 1.24 mg/dL (H)). ALLERGIES No Known Allergies Indication for Warfarin: Anticoagulation Episode Summary Current INR goal: 2.0-3.0 Assessment: INR result of 2.3 is therapeutic Plan: Current Warfarin Dosing As of 09/30/2022 Full warfarin instructions: 5 mg every Mon, Wed, Fri; 2.5 mg all other days Called and spoke to patient/caregiver Advised patient to continue current weekly dose as noted above Next home INR check scheduled on 10/14/2022 Patient verbalizes understanding of the plan. Jonathan Hawkins RPh Clinical Pharmacist, Pharmacy Anticoagulation Clinic Pharmacy Anticoagulation Clinic Pager: [phone]. documented in this encounterCleveland [id number] Miscellaneous Notes* Telephone Encounter - Jonathan Hawkins, [facility] - 09/16/2022 8:55 AM EST [facility] Anticoagulation Episode Summary Anticoagulation Care Providers Provider Role Specialty Phone number George Mata MD Responsible Internal Medicine [phone] Bessy Valverde is a 76 year old year old male patient being evaluated today for a Telemanagement visit. Patient is currently on the following anticoagulant(s) Warfarin. Labs PT INR (no units) Date Value 11/19/2021 2.7 biotel 11/05/2021 2.5 10/22/2021 2.8 biotel INR Home CoaguChek (no units) Date Value 09/16/2022 2.4 09/02/2022 2.4 08/19/2022 2.1 Hemoglobin (g/dL) Date Value 07/24/2022 13.3 09/23/2021 13.8 Hematocrit (%) Date Value 07/24/2022 42.5 09/23/2021 44.4 Platelet Count (k/uL) Date Value 07/24/2022 145 09/23/2021 160 Creatinine (mg/dL) Date Value 07/24/2022 1.24 01/22/2022 1.41 09/23/2021 1.18 09/02/2021 1.31 08/05/2021 1.68 Bilirubin, Total (mg/dL) Date Value 07/24/2022 0.8 08/22/2021 1.2 ALT (U/L) Date Value 07/24/2022 18 08/22/2021 36 AST (U/L) Date Value 07/24/2022 25 08/22/2021 45 Estimated Creatinine Clearance: 49.3 mL/min (A) (based on SCr of 1.24 mg/dL (H)). ALLERGIES No Known Allergies Indication for Warfarin: Anticoagulation Episode Summary Current INR goal: 2.0-3.0 Assessment: INR result of 2.4 is therapeutic Plan: Current Warfarin Dosing As of 09/16/2022 Full warfarin instructions: 5 mg every Mon, Wed, Fri; 2.5 mg all other days Called and spoke to patient/caregiver Advised patient to continue current weekly dose as noted above Next home INR check scheduled on 09/30/2022 Patient verbalizes understanding of the plan. Jonathan Hawkins RPh Clinical Pharmacist, Pharmacy Anticoagulation Clinic Pharmacy Anticoagulation Clinic Pager: [phone]. documented in this encounterGlenbeigh Hospital01-24-2023 Miscellaneous Notes* Telephone Encounter - Jonathan Hawkins RPh - 09/02/2022 8:38 AM EST [facility] Anticoagulation Episode Summary Anticoagulation Care Providers Provider Role Specialty Phone number George Mata MD [facility] Internal Medicine [phone] Bessy Valverde is a 76 year old year old male patient being evaluated today for a Telemanagement visit. Patient is currently on the following anticoagulant(s) Warfarin. Labs PT INR (no units) Date Value 11/19/2021 2.7 biotel 11/05/2021 2.5 10/22/2021 2.8 biotel INR Home CoaguChek (no units) Date Value 09/02/2022 2.4 08/19/2022 2.1 08/05/2022 2.2 Hemoglobin (g/dL) Date Value 07/24/2022 13.3 09/23/2021 13.8 Hematocrit (%) Date Value 07/24/2022 42.5 09/23/2021 44.4 Platelet Count (k/uL) Date Value 07/24/2022 145 09/23/2021 160 Creatinine (mg/dL) Date Value 07/24/2022 1.24 01/22/2022 1.41 09/23/2021 1.18 09/02/2021 1.31 08/05/2021 1.68 Bilirubin, Total (mg/dL) Date Value 07/24/2022 0.8 08/22/2021 1.2 ALT (U/L) Date Value 07/24/2022 18 08/22/2021 36 AST (U/L) Date Value 07/24/2022 25 08/22/2021 45 Estimated Creatinine Clearance: 49.3 mL/min (A) (based on SCr of 1.24 mg/dL (H)). ALLERGIES No Known Allergies Indication for Warfarin: Anticoagulation Episode Summary Current INR goal: 2.0-3.0 Assessment: INR result of 2.4 is therapeutic Plan: Current Warfarin Dosing As of 09/02/2022 Full warfarin instructions: 5 mg every Mon, Wed, Fri; 2.5 mg all other days; Starting 09/02/2022 Called and spoke to patient/caregiver Advised patient to continue current weekly dose as noted above Next home INR check scheduled on 09/16/2022 Patient verbalizes understanding of the plan. Jonathan Hawkins RPh Clinical Pharmacist, Pharmacy Anticoagulation Clinic Pharmacy Anticoagulation Clinic Pager: [phone]. documented in this encounterGlen[facility] Hospital01-16-2023 Miscellaneous Notes* Telephone Encounter - Daphney Obando LPN - 08/25/2022 12:36 PM EST Reports faxed to below. Daphney Obando LPN * Telephone Encounter - Bety Vigil - 08/22/2022 3:43 PM EST Called patient to schedule with Vascular and patient prefers to have his test results from the [facility] that was done here on 08-12-22 faxed to Brionna Gant / his Oral Surgery Assistant office; [address] [place] [address] Telephone encounter routed to Dr. Mata office. Bety Vigil * Telephone Encounter - George Mata MD - 08/22/2022 1:03 PM EST ASSESSMENT/PLAN: 1. PAD (peripheral artery disease) (HCC) - ICD9: 443.9, ICD10: I73.9 - CONSULT TO VASCULAR MEDICINE George Mata MD * Telephone Encounter - Emily Ramirez - 08/21/2022 10:[address] orders for Vascular Medicine. Emily PSS * Telephone Encounter - Daphney Obando LPN - 08/21/2022 9:43 AM EST Patient given below recommendation, verbalized understanding. PSS please contact Patient to schedule vascular consult. Daphney Obando LPN * Telephone Encounter - George Mata MD - 08/21/2022 8:20 AM EST No apparent decreased flow but examination is limited by hardened arteries. 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 * Telephone Encounter - Susi Jang RN - 08/20/2022 11:29 AM EST Pt asking if PCP would advise on arterial study results from 08/12/22. Thank you. documented in this encounterGlenbeigh Hospital01-13-2023 Miscellaneous Notes* Telephone Encounter - Bety Vigil - 08/22/2022 3:27 PM EST Called patient to schedule with Vascular and patient prefers to have his test results from the [facility] that was done here on 08-12-22 faxed to Brionna Gant / his Oral Surgery Assistant office; [phone] [place] [address] Bety Vigil documented in this encounterGlenbeigh Hospital01-10-2023 Miscellaneous Notes* Telephone Encounter - Jonathan Hawkins, [facility] - 08/19/2022 7:32 AM EST [facility] Anticoagulation Episode Summary Anticoagulation Care Providers Provider Role Specialty Phone number George Mata MD Responsible Internal Medicine [phone] Bessy Valverde is a 76 year old year old male patient being evaluated today for a Telemanagement visit. Patient is currently on the following anticoagulant(s) Warfarin. Labs PT INR (no units) Date Value 11/19/2021 2.7 biotel 11/05/2021 2.5 10/22/2021 2.8 biotel INR Home CoaguChek (no units) Date Value 08/19/2022 2.1 08/05/2022 2.2 07/22/2022 1.9 Hemoglobin (g/dL) Date Value 07/24/2022 13.3 09/23/2021 13.8 Hematocrit (%) Date Value 07/24/2022 42.5 09/23/2021 44.4 Platelet Count (k/uL) Date Value 07/24/2022 145 09/23/2021 160 Creatinine (mg/dL) Date Value 07/24/2022 1.24 01/22/2022 1.41 09/23/2021 1.18 09/02/2021 1.31 08/05/2021 1.68 Bilirubin, Total (mg/dL) Date Value 07/24/2022 0.8 08/22/2021 1.2 ALT (U/L) Date Value 07/24/2022 18 08/22/2021 36 AST (U/L) Date Value 07/24/2022 25 08/22/2021 45 Estimated Creatinine Clearance: 49.3 mL/min (A) (based on SCr of 1.24 mg/dL (H)). ALLERGIES No Known Allergies Indication for Warfarin: Anticoagulation Episode Summary Current INR goal: 2.0-3.0 Assessment: INR result of 2.1 is therapeutic Plan: Current Warfarin Dosing As of 08/19/2022 Full warfarin instructions: 5 mg every Mon, Wed, Fri; 2.5 mg all other days; Starting 08/19/2022 Called and spoke to patient/caregiver Advised patient to continue current weekly dose as noted above Next home INR check scheduled on 09/02/2022 Patient verbalizes understanding of the plan. Jonathan Hawkins [facility] Clinical Pharmacist, Pharmacy Anticoagulation Clinic Pharmacy Anticoagulation Clinic Pager: [phone]. documented in this encounterGlenbeigh Hospital12-27-2022 Miscellaneous Notes* Telephone Encounter - Heriberto Lopes Ma - 08/05/2022 2:23 PM EST Patient notified, verbalized understanding * Telephone Encounter - Paola Young APRN.CNP - 08/05/2022 2:06 PM EST If symptoms don't improve in 2-3 days wth prednisone he will need to be evaluated in the office or he can go to urgent care Paola Young APRN.CNP * Telephone Encounter - Daphney Obando LPN - 08/05/2022 10:28 AM EST Last office visit: 07/24/2022. Daphney Obando LPN * Telephone Encounter - Tonja Dominguez - 08/05/2022 8:17 AM EST Patient requesting a refill of prednisone for gout; not on current med list. [facility] [place]. Please advise him at [phone] if/when approved. documented in this encounterGlenbeigh Hospital12-27-2022 Miscellaneous Notes* Telephone Encounter - Jordyn Garcia RPh - 08/05/2022 10:48 AM EST [facility] Anticoagulation Episode Summary Anticoagulation Care Providers Provider Role Specialty Phone number George Mata MD [facility] Internal Medicine [phone] Bessy Valverde is a 76 year old year old male patient being evaluated today for a Telemanagement visit. Patient is currently on the following anticoagulant(s) Warfarin. Labs PT INR (no units) Date Value 11/19/2021 2.7 biotel 11/05/2021 2.5 10/22/2021 2.8 biotel INR Home CoaguChek (no units) Date Value 08/05/2022 2.2 07/22/2022 1.9 07/08/2022 2.2 Hemoglobin (g/dL) Date Value 07/24/2022 13.3 09/23/2021 13.8 Hematocrit (%) Date Value 07/24/2022 42.5 09/23/2021 44.4 Platelet Count (k/uL) Date Value 07/24/2022 145 09/23/2021 160 Creatinine (mg/dL) Date Value 07/24/2022 1.24 01/22/2022 1.41 09/23/2021 1.18 09/02/2021 1.31 08/05/2021 1.68 Bilirubin, Total (mg/dL) Date Value 07/24/2022 0.8 08/22/2021 1.2 ALT (U/L) Date Value 07/24/2022 18 08/22/2021 36 AST (U/L) Date Value 07/24/2022 25 08/22/2021 45 Estimated Creatinine Clearance: 49.3 mL/min (A) (based on SCr of 1.24 mg/dL (H)). ALLERGIES No Known Allergies Indication for Warfarin: Anticoagulation Episode Summary Current INR goal: 2.0-3.0 Assessment: INR result of 2.2 is therapeutic Plan: Current Warfarin Dosing As of 08/05/2022 Full warfarin instructions: 5 mg every Mon, Wed, Fri; 2.5 mg all other days; Starting 08/05/2022 Called and spoke to patient/caregiver Advised patient to continue current weekly dose as noted above Next home INR check scheduled on 08/19/2022 Patient verbalizes understanding of the plan. Patient denies need for refills. Jordyn Garcia [facility] Clinical Pharmacist, Pharmacy Anticoagulation Clinic Pharmacy Anticoagulation Clinic Pager: [phone]. documented in this [facility]12-17-2022 Miscellaneous Notes* Telephone Encounter - Daphney Obando LPN - 07/26/2022 10:34 AM EST notified of below results. Daphney Obando LPN * Telephone Encounter - Daphney Obando LPN - 07/26/2022 10:33 AM EST ----- Message from George Mata MD sent at 07/26/2022 10:14 AM EST ----- Test results are okay. DM and lipids controlled. Stable kidney disease. documented in this [facility]12-15-2022 Instructions* Patient Instructions* George Mata MD - 07/24/2022 1:52 PM EST Have you ever planned for future healthcare decisions with a power of claims attorney, living will, or advance directives? Yes. Have you shared those records with your doctor? No and No. Please bring a copyto your next appointment or email to [email or web address] documented in this [facility]12-15-2022 History of Present illness Narrative* George Mata MD - 07/24/2022 1:22 PM EST This note was created using M/[employer] Technology Solutionsriter. Subjective Patient presents with: F/U 6 months Yearly Exam Bessy Valverde is a 76 year old male. 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 He bruised his chest which was now healed. He had no procedures in the past year. His conditions were stable. His left posterior knee was painful off and on, without swelling. His labs were being run today. His medications were unchanged. He described leg fatigue on walking 100 feet, needing to slow down for relief. List of current specialists seen: Dr. Vicky Siddiqi, Dr. Arline Gant, cardiologists. Dr. Cielo Delgado, pulmonary. Dr. Cielo Rousseau, pain management. Dr. Crowder, ophthalmology. Review of Systems Constitutional: Negative. HENT: Negative. Eyes: Negative. Respiratory: Negative for cough, shortness of breath and wheezing. Cardiovascular: Negative. Gastrointestinal: Negative. Genitourinary: Negative. Musculoskeletal: Positive for arthralgias. Left knee pain off and on for months. Skin: Negative. Neurological: Negative for dizziness, syncope, light-headedness and headaches. Psychiatric/Behavioral: Negative. Negative for dysphoric mood, self-injury, sleep disturbance and suicidal ideas. 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/2007 Pure hypercholesterolemia Status post implantation of automatic cardioverter/defibrillator (AICD) 06/17/2013 Status post mitral valve replacement 06/17/2013 Unspecified cardiovascular disease Unspecified essential hypertension Ventricular tachycardia 06/17/2013 PAST SURGICAL HISTORY Procedure Laterality Date AICD, DUAL CHAMBER 10/29/2015 dual lead AICD APPENDECTOMY 1993 [facility] INCL FLUOR GDNCE DX W/CELL WASHG SPX 02/04/2013 BRONCHOSCOPY CARDIAC CATH 12/16/2017 Alex CARDIAC CATH 12/14/2018 Right & Left COLONOSCOPY & POLYPECTOMY 04/03/2017 COLONOSCOPY SCREENING 05/06/2021 [facility] COLONOS[facility] W/BIOPSY SINGLE/MULTIPLE 07/26/2010 Diminutive polyp of sigmoid/diverticulosis COLONOSCOPY W/BIOPSY SINGLE/MULTIPLE 09/10/2012 CORONARY ARTERY BYP W/VEIN & ARTERY GRAFT 4 VEIN 04/29/2007 CABG, quadruple grafts CORONARY ARTERY BYPASS GRAFT CORONARY STENT EA VESSEL 02/12/2018 [facility] RCA EGD 05/06/2021 [facility] EGD TRANSORAL BIOPSY SINGLE/MULTIPLE 09/10/2012 EGD W/ BIOPSY SNGL/MLTPL 04/03/2017 [facility] HEART VALVE REPLACEMENT IMPLANTABLE CARDIOVERTER DEFIBRILLATOR INSJ/RPLCMT PERM DFB W/TRNSVNS LDS 1/DUAL CHMBR 06/10/2013 AICD LEFT HEART CATH,PERCUTANEOUS 05/03/2012 Cardiac cath, L heart LEFT HEART CATH,PERCUTANEOUS 04/27/2013 Cardiac cath, L heart LEFT HEART CATH,PERCUTANEOUS 10/07/2015 LEFT HEART CATH,PERCUTANEOUS 07/25/2021 PAST SURGICAL HISTORY OF 09/17/2020 Right Cataract removed REPLACEMENT MITRAL VALVE W/CARDIOPULMONARY BYP 05/17/2013 Mitral valve replacement, IABP TRANSCATH STENT INIT VESSEL,PERCUT 1996 3 PTCAs and stents. 1995 & 1996 TRANSCATH STENT INIT VESSEL,PERCUT 05/02/2009 Transcath stent init vessel percut Social History Tobacco Use Smoking status: Former Types: Pipe Quit date: 08/10/1969 Years since quittin.9 Smokeless tobacco: Current Types: Snuff Tobacco comments: Chews tobacco 2 boxes per week since . Vaping Use Vaping Use: Never used Substance Use Topics Alcohol use: No Drug use: No Immunization History Administered Date(s) Administered COVID-19 original vaccine, age 12+ yr, monovalent (Fengxiafei - FRANCIS TOP) 08/22/2021 01/22/2022 COVID-19 original vaccine, age 12+ yr, monovalent (Fengxiafei - PURPLE TOP) 10/11/2020 11/01/2020 Influenza Seasonal - High Dose - Age 65+ 05/23/2015 05/10/2019 04/20/2020 Influenza Seasonal Inj Age 3+ 05/15/2014 04/22/2017 04/07/2018 Influenza Seasonal Inj Quad Age 6 Mo - 64 Yrs 04/18/2016 Influenza Vaccine, Split-Non Spec 06/25/2006 06/22/2007 05/09/2009 06/02/2011 05/24/2012 05/10/2013 Pneumococcal-13 Vac Conjugate 02/21/2015 Pneumovax 04/11/2008 06/10/2013 03/12/2016 07/19/2021 TD Adult 07/28/2007 Tdap (Age 7+) 03/24/2016 Zostavax 05/24/2012 influenza (aIIV4) vaccine, age 65+ yr, quadrivalent, PF (FLUAD QUADRIVALENT) 06/05/2021 influenza, high-dose, quadrivalent vaccine (FLUZONE HIGH DOSE QUADRIVALENT) 04/09/2022 ALLERGIES No Known Allergies Current Outpatient Medications Medication Sig mttdsmcrn-zvdzcj-acdezrbg-scop () 16.2-0.1037 -0.0194 mg per tablet Take 1 tablet by mouth every 6 hours as needed. nitroglycerin sublingual (NITROSTAT) 0.4 mg SL tablet Dissolve 1 tablet under the tongue as needed.DISSOLVE ON TONGUE FOR CHEST PAIN. IF NO PAIN RELIEF, CALL 911 warfarin (COUMADIN) 5 mg tablet 2.5 mg every Thu, Thu, Thu; 5 mg all other days ENTRESTO 24-26 mg tablet Take 1 tablet by mouth twice daily. sotalol (BETAPACE) 80 mg tablet Take 2 tablets by mouth twice daily. spironolactone (ALDACTONE) 25 mg tablet Take 25 mg by mouth once daily. LOW-DOSE ASPIRIN ORAL Take 1 tablet by mouth once daily. blood sugar diagnostic (BLOOD GLUCOSE TEST) test strip Test blood sugar(s) one times daily. Dx: Type 2 DM - Controlled E11.9 Insulin: No Blood-Glucose Meter monitoring kit Glucose Meter of Choice - Kit - Dx: Type 2 DM - Controlled E11.9 fluticasone-salmeterol (ADVAIR DISKUS) 100-50 mcg/dose inhaler Inhale 1 Puff as instructed twice daily. Rinse mouth out after use with water. albuterol HFA (VENTOLIN HFA) 90 mcg/actuation inhaler USE 2 INHALATIONS 4 TIMES A DAY IF NEEDED atorvastatin (LIPITOR) 40 mg tablet Take 1 tablet by mouth once daily. pantoprazole DR (PROTONIX) 20 mg tablet Take 1 tablet by mouth daily before breakfast. Take on empty stomach, 1/2 hr before meal. bumetanide (BUMEX) 1 mg tablet One tablet every other day; OR daily, depending on weight gain, fluid retention. No current facility-administered medications for this visit. Objective BP 114/58 (BP Site: Left Arm, BP Position: Sitting, BP Cuff Size: Large Adult) Pulse 68 Temp 36.3 C (97.3 F) (Temporal) Resp 16 Ht 174.2 cm (5' 8.6) Wt 80.7 kg (178 lb) BMI 26.59 kg/m Physical Exam Constitutional: General: He is not in acute distress. Appearance: He is not ill-appearing or diaphoretic. HENT: Head: Normocephalic. Eyes: General: No scleral icterus. Extraocular Movements: Extraocular movements intact. Conjunctiva/sclera: Conjunctivae normal. Neck: Vascular: No carotid bruit. Cardiovascular: Rate and Rhythm: Normal rate and regular rhythm. Pulses: Carotid pulses are 1+ on the right side and 1+ on the left side. Radial pulses are 1+ on the right side and 1+ on the left side. Femoral pulses are 0 on the right side and 0 on the left side with bruit. Popliteal pulses are 0 on the right side and 0 on the left side. Dorsalis pedis pulses are 1+ on the right side and 1+ on the left side. Posterior tibial pulses are 0 on the right side and 0 on the left side. Heart sounds: No murmur heard. No gallop. Pulmonary: Breath sounds: Examination of the right-lower field reveals rales. Examination of the left-lower field reveals rales. Rales present. No wheezing or rhonchi. Abdominal: Palpations: Abdomen is soft. Tenderness: There is no abdominal tenderness. Musculoskeletal: General: No swelling, tenderness or deformity. Right knee: Normal. Left knee: Normal. Right lower le+ Pitting Edema present. Left lower le+ Pitting Edema present. Lymphadenopathy: Cervical: No cervical adenopathy. Skin: Findings: No rash. Neurological: General: No focal deficit present. Mental Status: He is alert. Gait: Gait normal. Mini Cog 2+2=4/5 Feet:Shoes and socks removed, No deformities, ulcers, calluses, trace DP distal pulses, and sensitive to 10 gm monofilament Labs in process. Assessment and Plan 1. Routine medical exam - ICD9: V70.0, ICD10: Z00.00 (primary diagnosis) - Counseled on healthy diet and regular exercise - Depression screening tool completed and reviewed with patient. Based on score and interview, patient is not at risk for depression and recommended no further intervention at this time. - Fall precautions. - Covid booster vaccination. 2. Asthma, moderate persistent, well-controlled - ICD9: 493.90, ICD10: J45.40 Stable. - FLUTICASONE 100 MCG-SALMETEROL 50 MCG/DOSE BLISTR POWDR FOR INHALATION - ALBUTEROL SULFATE HFA 90 MCG/ACTUATION AEROSOL INHALER 3. Pure hypercholesterolemia - ICD9: 272.0, ICD10: E78.00 Labs TBD. - ATORVASTATIN 40 MG TABLET 4. Byers's esophagus with dysplasia - ICD9: 530.85, ICD10: K22.719 Controlled. No further surveillance recommended. - PANTOPRAZOLE 20 MG TABLET,DELAYED RELEASE 5. Interstitial lung disease (HCC) - ICD9: 515, ICD10: J84.9 Stable. Seeing pulmonary. 6. Atherosclerosis of [place] coronary artery of [place] heart without angina pectoris - ICD9: 414.01, ICD10: I25.10 Stable. 7. Controlled type 2 diabetes mellitus with stage 3 chronic kidney disease, without long-term current use of insulin (HCC) - ICD9: 250.40, 585.3, ICD10: E11.22, N18.30 Controlled. - Continue current medications 8. Chronic systolic heart failure (HCC) - ICD9: 428.22, ICD10: I50.22 Stable. - BUMETANIDE 1 MG TABLET 9. PAD (peripheral artery disease) (HCC) - ICD9: 443.9, ICD10: I73.9 Claudication ~ 100 feet. - PVR ANK PRESS [facility] 10. Need for COVID-19 vaccine - ICD9: V04.89, ICD10: Z23 - PFIZER-BIONTECH COVID-19 BIVALENT BOOSTER VACCINE, AGE 12+ YR 11. Left knee pain, unspecified chronicity - ICD9: 719.46, ICD10: M25.562 DJD versus strain. Try OTC topical analgesics as needed. George Mata MD documented in this encounterGlenbeigh Hospital12-13-2022 Miscellaneous Notes* Telephone Encounter - Jonathan Hawkins [facility] - 07/22/2022 7:49 AM EST [facility] Anticoagulation Episode Summary Anticoagulation Care Providers Provider Role Specialty Phone number George Mata MD Responsible Internal Medicine [phone] Bessy Valverde is a 76 year old year old male patient being evaluated today for a Telemanagement visit. Patient is currently on the following anticoagulant(s) Warfarin. Labs PT INR (no units) Date Value 11/19/2021 2.7 biotel 11/05/2021 2.5 10/22/2021 2.8 biotel INR Home CoaguChek (no units) Date Value 07/22/2022 1.9 07/08/2022 2.2 06/24/2022 2.3 Hemoglobin (g/dL) Date Value 01/22/2022 13.5 09/23/2021 13.8 Hematocrit (%) Date Value 01/22/2022 41.5 09/23/2021 44.4 Platelet Count (k/uL) Date Value 01/22/2022 129 09/23/2021 160 Creatinine (mg/dL) Date Value 01/22/2022 1.41 09/23/2021 1.18 09/02/2021 1.31 08/05/2021 1.68 Bilirubin, Total (mg/dL) Date Value 08/22/2021 1.2 ALT (U/L) Date Value 08/22/2021 36 AST (U/L) Date Value 08/22/2021 45 CrCl cannot be calculated (Patient's most recent lab result is older than the maximum 180 days allowed.). ALLERGIES No Known Allergies Indication for Warfarin: Anticoagulation Episode Summary Current INR goal: 2.0-3.0 Assessment: INR result of 1.9 is SUBtherapeutic due to: unknown cause - did not speak to patient Plan: Current Warfarin Dosing As of 07/22/2022 Full warfarin instructions: 07/22: 5 mg; Otherwise 5 mg every Mon, Wed, Fri; 2.5 mg all other days;Starting 07/22/2022 Left voice message Advised patient to increase dose for 1 day only then resume weekly regimen as noted above Next home INR check scheduled on 08/05/2022 Jonathan Hawkins RPh Clinical Pharmacist, Pharmacy Anticoagulation Clinic Pharmacy Anticoagulation Clinic Pager: [phone]. documented in this encounterGlenbeigh Hospital11-15-2022 Miscellaneous Notes* Telephone Encounter - Jonathan Hawkins RPh - 06/24/2022 9:15 AM EST [facility] Anticoagulation Episode Summary Anticoagulation Care Providers Provider Role Specialty Phone number George Mata MD Responsible Internal Medicine [phone] Bessy Valverde is a 76 year old year old male patient being evaluated today for a Telemanagement visit. Patient is currently on the following anticoagulant(s) Warfarin. Labs PT INR (no units) Date Value 11/19/2021 2.7 biotel 11/05/2021 2.5 10/22/2021 2.8 biotel INR Home CoaguChek (no units) Date Value 06/24/2022 2.3 06/10/2022 3.4 05/27/2022 3.0 Hemoglobin (g/dL) Date Value 01/22/2022 13.5 09/23/2021 13.8 Hematocrit (%) Date Value 01/22/2022 41.5 09/23/2021 44.4 Platelet Count (k/uL) Date Value 01/22/2022 129 09/23/2021 160 Creatinine (mg/dL) Date Value 01/22/2022 1.41 09/23/2021 1.18 09/02/2021 1.31 08/05/2021 1.68 Bilirubin, Total (mg/dL) Date Value 08/22/2021 1.2 ALT (U/L) Date Value 08/22/2021 36 AST (U/L) Date Value 08/22/2021 45 CrCl cannot be calculated (Unknown ideal weight.). ALLERGIES No Known Allergies Indication for Warfarin: Anticoagulation Episode Summary Current INR goal: 2.0-3.0 Assessment: INR result of 2.3 is therapeutic Plan: Current Warfarin Dosing As of 06/24/2022 Full warfarin instructions: 5 mg every Mon, Wed, Fri; 2.5 mg all other days Called and spoke to patient/caregiver Advised patient to continue current weekly dose as noted above Next home INR check scheduled on 07/08/2022 Patient's caregiver verbalizes understanding of the plan. Jonathan Hawkins RPh Clinical Pharmacist, Pharmacy Anticoagulation Clinic Pharmacy Anticoagulation Clinic Pager: [phone]. documented in this encounterGlenbeigh Hospital11-11-2022 Miscellaneous Notes* Telephone Encounter - Paola Young APRN.CNP - 06/20/2022 9:11 AM EST PDMP website checked and validated. All prescriptions have been APPROPRIATELY filled. No suspiciousactivity was identified. 06/20/2022 by Paola Young APRN.CNP * Telephone Encounter - Daphney Obando LPN - 06/19/2022 3:37 PM EST Patient has been identified by name and date of : Yes Patient phones for refill(s): Requested Prescriptions Pending Prescriptions Disp Refills pbxyksnwp-fkxyka-exhhcazy-scop () 16.2-0.1037 -0.0194 mg per tablet 240 tablet 0 Sig: Take 1 tablet by mouth every 6 hours as needed. Date of last office visit in primary care: 01/22/2022 Yearly: 07/24/2022 Last 2 Encounter Wt Readings: Date: Wt: 01/22/2022 79.8 kg (176 lb) 11/06/2021 78 kg (172 lb) Previous labs/tests for medication: Not applicable Please advise. Thank you. Daphney Obando LPN * Telephone Encounter - Rosalia Murdock [facility] - 06/19/2022 1:16 PM EST Patient has been identified by name and date of : Yes Last office visit in this department: 01/22/2022 RX INSTRUCTIONS: Patient aware RX escripted to mail away pharmacy. No need to notify patient. Patient phones requesting refills as follows: Requested Prescriptions Pending Prescriptions Disp Refills hifktzyph-wtbxro-fgdncchp-scop () 16.2-0.1037 -0.0194 mg per tablet 240 tablet 0 Sig: Take 1 tablet by mouth every 6 hours as needed. Please review and advise. Rosalia Murdock Pss documented in this encounterGlenbeigh Hospital11-01-2022 Miscellaneous Notes* Telephone Encounter - Jonathna Hawkins RP - 06/10/2022 9:44 AM EDT [facility] Anticoagulation Episode Summary Anticoagulation Care Providers Provider Role Specialty Phone number George Mata MD [facility] Internal Medicine [phone] Bessy Valverde is a 76 year old year old male patient being evaluated today for a Telemanagement visit. Patient is currently on the following anticoagulant(s) Warfarin. Labs PT INR (no units) Date Value 11/19/2021 2.7 biotel 11/05/2021 2.5 10/22/2021 2.8 biotel INR Home CoaguChek (no units) Date Value 06/10/2022 3.4 05/27/2022 3.0 05/13/2022 3.4 Hemoglobin (g/dL) Date Value 01/22/2022 13.5 09/23/2021 13.8 Hematocrit (%) Date Value 01/22/2022 41.5 09/23/2021 44.4 Platelet Count (k/uL) Date Value 01/22/2022 129 09/23/2021 160 Creatinine (mg/dL) Date Value 01/22/2022 1.41 09/23/2021 1.18 09/02/2021 1.31 08/05/2021 1.68 Bilirubin, Total (mg/dL) Date Value 08/22/2021 1.2 ALT (U/L) Date Value 08/22/2021 36 AST (U/L) Date Value 08/22/2021 45 CrCl cannot be calculated (Unknown ideal weight.). ALLERGIES No Known Allergies Indication for Warfarin: Anticoagulation Episode Summary Current INR goal: 2.0-3.0 Assessment: INR result of 3.4 is SUPRAtherapeutic due to: No obvious cause Patient denies any medication changes, grapefruit/cranberry ingestion, OTC/herbal/nutritional supplement use, accidental over dosage, changes in warfarin tablet color/shape/car park attendant, eating less green vegetables, recent illness/fever/nausea/vomiting/diarrhea, increased edema/SOB, or ETOH consump tion. Plan: Current Warfarin Dosing As of 06/10/2022 Full warfarin instructions: 5 mg every Mon, Wed, Fri; 2.5 mg all other days Called and spoke to patient/caregiver Advised patient to decrease total weekly regimen as noted above Next home INR check scheduled on 06/24/2022 Patient verbalizes understanding of the plan. Jonathan Hawkins RPh Clinical Pharmacist, Pharmacy Anticoagulation Clinic Pharmacy [facility] Pager: [phone]. documented in this encounterGlenbeigh Hospital10-18-2022 Miscellaneous Notes* Telephone Encounter - Lian Coulter RPh - 05/27/2022 8:22 AM EDT [facility] Anticoagulation Episode Summary Anticoagulation Care Providers Provider Role Specialty Phone number George Mata MD Responsible Internal Medicine [phone] Bessy Valverde is a 76 year old year old male patient being evaluated today for a Telemanagement visit. Patient is currently on the following anticoagulant(s) Warfarin. Labs PT INR (no units) Date Value 11/19/2021 2.7 biotel 11/05/2021 2.5 10/22/2021 2.8 biotel INR Home CoaguChek (no units) Date Value 05/27/2022 3.0 05/13/2022 3.4 04/29/2022 2.8 Hemoglobin (g/dL) Date Value 01/22/2022 13.5 09/23/2021 13.8 Hematocrit (%) Date Value 01/22/2022 41.5 09/23/2021 44.4 Platelet Count (k/uL) Date Value 01/22/2022 129 09/23/2021 160 Creatinine (mg/dL) Date Value 01/22/2022 1.41 09/23/2021 1.18 09/02/2021 1.31 08/05/2021 1.68 Bilirubin, Total (mg/dL) Date Value 08/22/2021 1.2 ALT (U/L) Date Value 08/22/2021 36 AST (U/L) Date Value 08/22/2021 45 CrCl cannot be calculated (Unknown ideal weight.). ALLERGIES No Known Allergies Indication for Warfarin: Permanent atrial fibrillation (hcc) penitentiary (current) use of anticoagulants Anticoagulation Episode Summary Current INR goal: 2.0-3.0 Assessment: INR result of 3.0 is therapeutic Plan: Current Warfarin Dosing As of 05/27/2022 Full warfarin instructions: 2.5 mg every Thu, Thu, Nannette; 5 mg all other days Called and spoke to patient/caregiver Advised patient to continue current weekly dose as noted above Next home INR check scheduled on 06/10/2022 Patient verbalizes understanding of the plan. Patient denies need for refills. Lian Coulter RP Clinical Pharmacist, Pharmacy Anticoagulation Clinic Pharmacy Anticoagulation Clinic Pager: [phone]. 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 She said she will just have watch his diet more closely.She understands what the FLIGHT STEWARD said about the prednisone. * Telephone Encounter - Susi Jang RN - 05/19/2022 1:10 PM EDT Patient notified of provider's response below. Susi Jang RN * Telephone Encounter - Paola Young APRN.CNP - 05/19/2022 1:05 PM EDT This would be the second round of prednisone for gout in less than one month. He needs to be evaluated, either in office or urgent care Paola Young APRN.CNP * Telephone Encounter - Susi Jang RN - 05/19/2022 11:53 AM EDT Patient's Monica calling to ask if patient can be ordered another round of steroids. She states patient has terrible gout in his feet and the steroids helped him immensely last month. They have a wedding to go to this Thursday and patient's feet are bothering him from gout. Requesting [facility] in [place]. Please call with update. Thank you. PH: [phone]. documented in this encounterGlenbeigh Hospital10-05-2022 Miscellaneous Notes* Telephone Encounter - Zuleyma Brown - 05/14/2022 8:35 AM EDT Patient has been identified by name and date of : Yes Requested Prescriptions Pending Prescriptions Disp Refills nitroglycerin sublingual (NITROSTAT) 0.4 mg SL tablet 25 tablet 3 Sig: Dissolve 1 tablet under the tongue as needed. DISSOLVE ON TONGUE FOR CHEST PAIN. IF NO PAIN RELIEF, CALL 911 warfarin (COUMADIN) 5 mg tablet 90 tablet 1 Si.5 mg every Thu, e, Thu; 5 mg all other days ENTRESTO 24-26 mg tablet Sig: Take 1 tablet by mouth twice daily. spironolactone (ALDACTONE) 25 mg tablet Sig: Take 1 tablet by mouth once daily. RX INSTRUCTIONS: Patient aware RX will be sent to pharmacy. No need to notify patient. Zuleyma Brown documented in this encounterGlenbeigh Hospital10-04-2022 Miscellaneous Notes* Telephone Encounter - Jonathan Hawkins RPh - 05/13/2022 8:04 AM EDT [facility] Anticoagulation Episode Summary Anticoagulation Care Providers Provider Role Specialty Phone number Georeg Mata MD [facility] Internal Medicine [phone] Bessy Valverde is a 76 year old year old male patient being evaluated today for a Telemanagement visit. Patient is currently on the following anticoagulant(s) Warfarin. Labs PT INR (no units) Date Value 11/19/2021 2.7 biotel 11/05/2021 2.5 10/22/2021 2.8 biotel INR Home CoaguChek (no units) Date Value 05/13/2022 3.4 04/29/2022 2.8 04/15/2022 1.8 Hemoglobin (g/dL) Date Value 01/22/2022 13.5 09/23/2021 13.8 Hematocrit (%) Date Value 01/22/2022 41.5 09/23/2021 44.4 Platelet Count (k/uL) Date Value 01/22/2022 129 09/23/2021 160 Creatinine (mg/dL) Date Value 01/22/2022 1.41 09/23/2021 1.18 09/02/2021 1.31 08/05/2021 1.68 Bilirubin, Total (mg/dL) Date Value 08/22/2021 1.2 ALT (U/L) Date Value 08/22/2021 36 AST (U/L) Date Value 08/22/2021 45 CrCl cannot be calculated (Unknown ideal weight.). ALLERGIES No Known Allergies Indication for Warfarin: Anticoagulation Episode Summary Current INR goal: 2.0-3.0 Assessment: INR result of 3.4 is SUPRAtherapeutic due to: No obvious cause Patient denies any medication changes, grapefruit/cranberry ingestion, OTC/herbal/nutritional supplement use, accidental over dosage, changes in warfarin tablet color/shape/car park attendant, eating less green vegetables, recent illness/fever/nausea/vomiting/diarrhea, increased edema/SOB, or ETOH consump tion. Plan: Current Warfarin Dosing As of 05/13/2022 Full warfarin instructions: 05/14: 2.5 mg; Otherwise 2.5 mg every Thu, Thu, Thu; 5 mg all other days Called and spoke to patient/caregiver Advised patient to decrease dose for 1 day only then resume weekly regimen Next home INR check scheduled on 05/27/2022 Patient verbalizes understanding of the plan. Jonathan Hawkins [facility] Clinical Pharmacist, Pharmacy Anticoagulation Clinic Pharmacy Anticoagulation Clinic Pager: [phone]. documented in this encounterGlenbeigh Hospital09-20-2022 Miscellaneous Notes* Telephone Encounter - Jonathan Hawkins RPh - 04/29/2022 9:21 AM EDT [facility] Anticoagulation Episode Summary Anticoagulation Care Providers Provider Role Specialty Phone number George Mata MD Responsible Internal Medicine [phone] Bessy Valverde is a 76 year old year old male patient being evaluated today for a Telemanagement visit. Patient is currently on the following anticoagulant(s) Warfarin. Labs PT INR (no units) Date Value 11/19/2021 2.7 biotel 11/05/2021 2.5 10/22/2021 2.8 biotel INR Home CoaguChek (no units) Date Value 04/29/2022 2.8 04/15/2022 1.8 04/01/2022 2.5 Hemoglobin (g/dL) Date Value 01/22/2022 13.5 09/23/2021 13.8 Hematocrit (%) Date Value 01/22/2022 41.5 09/23/2021 44.4 Platelet Count (k/uL) Date Value 01/22/2022 129 09/23/2021 160 Creatinine (mg/dL) Date Value 01/22/2022 1.41 09/23/2021 1.18 09/02/2021 1.31 08/05/2021 1.68 Bilirubin, Total (mg/dL) Date Value 08/22/2021 1.2 ALT (U/L) Date Value 08/22/2021 36 AST (U/L) Date Value 08/22/2021 45 CrCl cannot be calculated (Unknown ideal weight.). ALLERGIES No Known Allergies Indication for Warfarin: Anticoagulation Episode Summary Current INR goal: 2.0-3.0 Assessment: INR result of 2.8 is therapeutic Plan: Current Warfarin Dosing As of 04/29/2022 Full warfarin instructions: 2.5 mg every Thu, Thu, Thu; 5 mg all other days Called and spoke to patient/caregiver Advised patient to continue current weekly dose as noted above Next home INR check scheduled on 05/13/2022 Patient verbalizes understanding of the plan. Jonathan Hawkins RPh Clinical Pharmacist, Pharmacy Anticoagulation Clinic Pharmacy Anticoagulation Clinic Pager: [phone]. documented in this encounterGlenbeigh Hospital09-12-2022 Miscellaneous Notes* Telephone Encounter - Catrachito Maurer DO - 04/21/2022 1:10 PM EDT The following approved medication requests have been transmitted electronically. Requested Prescriptions Signed Prescriptions Disp Refills predniSONE (DELTASONE) 10 mg tablet 14 tablet 0 Sig: Take 4 tablets by mouth once daily for 2 days, THEN 2 tablets once daily for 2 days, THEN 1 tablet once daily for 2 days. Authorizing Provider: CATRACHITO MAURER DO * Telephone Encounter - Lisbet Downs RN - 04/21/2022 8:07 AM EDT (Eileen) calls to let provider know that patient is having a gout flare up of the right foot and asking for prednisone order be sent to [facility]. Order pended. Dr. Mata and OCTAVIO both out today. Sending to on-call per request. Please review and advise, Lisbet Downs RN documented in this encounterGlenbeigh Hospital08-23-2022 Miscellaneous Notes* Telephone Encounter - Jonathan Hawkins RPh - 04/01/2022 7:58 AM EDT [facility] Anticoagulation Episode Summary Anticoagulation Care Providers Provider Role Specialty Phone number George Mata MD Responsible Internal Medicine [phone] Bessy Valverde is a 76 year old year old male patient being evaluated today for a Telemanagement visit. Patient is currently on the following anticoagulant(s) Warfarin. Labs PT INR (no units) Date Value 11/19/2021 2.7 biotel 11/05/2021 2.5 10/22/2021 2.8 biotel INR Home CoaguChek (no units) Date Value 04/01/2022 2.5 03/18/2022 1.9 03/04/2022 2.4 Hemoglobin (g/dL) Date Value 01/22/2022 13.5 09/23/2021 13.8 Hematocrit (%) Date Value 01/22/2022 41.5 09/23/2021 44.4 Platelet Count (k/uL) Date Value 01/22/2022 129 09/23/2021 160 Creatinine (mg/dL) Date Value 01/22/2022 1.41 09/23/2021 1.18 09/02/2021 1.31 08/05/2021 1.68 Bilirubin, Total (mg/dL) Date Value 08/22/2021 1.2 ALT (U/L) Date Value 08/22/2021 36 AST (U/L) Date Value 08/22/2021 45 Estimated Creatinine Clearance: 43.9 mL/min (A) (based on SCr of 1.41 mg/dL (H)). ALLERGIES No Known Allergies Indication for Warfarin: Anticoagulation Episode Summary Current INR goal: 2.0-3.0 Assessment: INR result of 2.5 is therapeutic Plan: Current Warfarin Dosing As of 04/01/2022 Full warfarin instructions: 2.5 mg every Sun, e, Nannette; 5 mg all other days Called and spoke to patient/caregiver Advised patient to continue current weekly dose as noted above Next home INR check scheduled on 04/15/2022 Patient verbalizes understanding of the plan. Jonathan Hawkins RPh Clinical Pharmacist, Pharmacy Anticoagulation Clinic Pharmacy Anticoagulation Clinic Pager: [phone]. documented in this encounterGlenbeigh Hospital08-09-2022 Miscellaneous Notes* Telephone Encounter - Jonathan Hawkins RPh - 03/18/2022 10:05 AM EDT [facility] Anticoagulation Episode Summary Anticoagulation Care Providers Provider Role Specialty Phone number George Mata MD Responsible Internal Medicine [phone] Bessy Valverde is a 76 year old year old male patient being evaluated today for a Telemanagement visit. Patient is currently on the following anticoagulant(s) Warfarin. Labs PT INR (no units) Date Value 11/19/2021 2.7 biotel 11/05/2021 2.5 10/22/2021 2.8 biotel INR Home CoaguChek (no units) Date Value 03/18/2022 1.9 03/04/2022 2.4 02/18/2022 2.0 Hemoglobin (g/dL) Date Value 01/22/2022 13.5 09/23/2021 13.8 Hematocrit (%) Date Value 01/22/2022 41.5 09/23/2021 44.4 Platelet Count (k/uL) Date Value 01/22/2022 129 09/23/2021 160 Creatinine (mg/dL) Date Value 01/22/2022 1.41 09/23/2021 1.18 09/02/2021 1.31 08/05/2021 1.68 Bilirubin, Total (mg/dL) Date Value 08/22/2021 1.2 ALT (U/L) Date Value 08/22/2021 36 AST (U/L) Date Value 08/22/2021 45 Estimated Creatinine Clearance: 43.9 mL/min (A) (based on SCr of 1.41 mg/dL (H)). ALLERGIES No Known Allergies Indication for Warfarin: Anticoagulation Episode Summary Current INR goal: 2.0-3.0 Assessment: INR result of 1.9 is SUBtherapeutic due to: unknown cause - did not speak to patient Plan: Current Warfarin Dosing As of 03/18/2022 Full warfarin instructions: 03/18: 5 mg; Otherwise 2.5 mg every Thu, Thu, Thu; 5 mg all other days Left voice message Advised patient to increase dose for 1 day only then resume weekly regimen Next home INR check scheduled on 04/01/2022 Jonathan Hawkins RPh Clinical Pharmacist, Pharmacy Anticoagulation Clinic Pharmacy Anticoagulation Clinic Pager: [phone]. documented in this encounterGlenbeigh Hospital07-26-2022 Miscellaneous Notes* Telephone Encounter - Jordyn Garcia, [facility] - 03/04/2022 8:34 AM EDT [facility] Anticoagulation Episode Summary Anticoagulation Care Providers Provider Role Specialty Phone number George Mata MD Responsible Internal Medicine [phone] Bessy Valverde is a 76 year old year old male patient being evaluated today for a Telemanagement visit. Patient is currently on the following anticoagulant(s) Warfarin. Labs PT INR (no units) Date Value 11/19/2021 2.7 biotel 11/05/2021 2.5 10/22/2021 2.8 biotel INR Home CoaguChek (no units) Date Value 03/04/2022 2.4 02/18/2022 2.0 02/04/2022 2.8 Hemoglobin (g/dL) Date Value 01/22/2022 13.5 09/23/2021 13.8 Hematocrit (%) Date Value 01/22/2022 41.5 09/23/2021 44.4 Platelet Count (k/uL) Date Value 01/22/2022 129 09/23/2021 160 Creatinine (mg/dL) Date Value 01/22/2022 1.41 09/23/2021 1.18 09/02/2021 1.31 08/05/2021 1.68 Bilirubin, Total (mg/dL) Date Value 08/22/2021 1.2 ALT (U/L) Date Value 08/22/2021 36 AST (U/L) Date Value 08/22/2021 45 Estimated Creatinine Clearance: 43.9 mL/min (A) (based on SCr of 1.41 mg/dL (H)). ALLERGIES No Known Allergies Indication for Warfarin: Anticoagulation Episode Summary Current INR goal: 2.0-3.0 Assessment: INR result of 2.4 is therapeutic Plan: Current Warfarin Dosing As of 03/04/2022 Full warfarin instructions: 2.5 mg every Thu, Thu, Nannette; 5 mg all other days Called and spoke to patient/caregiver Advised patient to continue current weekly dose as noted above Next home INR check scheduled on 03/18/2022 Patient verbalizes understanding of the plan. Patient denies need for refills. Jordyn Garcia [facility] Clinical Pharmacist, Pharmacy Anticoagulation Clinic Pharmacy Anticoagulation Clinic Pager: [phone] . documented in this encounterGlenbeigh Hospital07-12-2022 Miscellaneous Notes* Telephone Encounter - Jonathan Hawkins RP - 02/18/2022 9:05 AM EDT [facility] Anticoagulation Episode Summary Anticoagulation Care Providers Provider Role Specialty Phone number George Mata MD Responsible Internal Medicine [phone] Bessy Valverde is a 76 year old year old male patient being evaluated today for a Telemanagement visit. Patient is currently on the following anticoagulant(s) Warfarin. Labs PT INR (no units) Date Value 11/19/2021 2.7 biotel 11/05/2021 2.5 10/22/2021 2.8 biotel INR Home CoaguChek (no units) Date Value 02/18/2022 2.0 02/04/2022 2.8 01/21/2022 2.2 Hemoglobin (g/dL) Date Value 01/22/2022 13.5 09/23/2021 13.8 Hematocrit (%) Date Value 01/22/2022 41.5 09/23/2021 44.4 Platelet Count (k/uL) Date Value 01/22/2022 129 09/23/2021 160 Creatinine (mg/dL) Date Value 01/22/2022 1.41 09/23/2021 1.18 09/02/2021 1.31 08/05/2021 1.68 Bilirubin, Total (mg/dL) Date Value 08/22/2021 1.2 ALT (U/L) Date Value 08/22/2021 36 AST (U/L) Date Value 08/22/2021 45 Estimated Creatinine Clearance: 43.9 mL/min (A) (based on SCr of 1.41 mg/dL (H)). ALLERGIES No Known Allergies Indication for Warfarin: Anticoagulation Episode Summary Current INR goal: 2.0-3.0 Assessment: INR result of 2.0 is therapeutic Plan: Current Warfarin Dosing As of 02/18/2022 Warfarin maintenance plan: 2.5 mg (5 mg x 0.5) every Thu, Tue, Nannette; 5 mg (5 mg x 1) all other days Called and spoke to patient/caregiver spouse Advised patient to continue current weekly dose as noted above Next home INR check scheduled on 03/04/2022 Patient's caregiver verbalizes understanding of the plan. Jonathan Hawkins RPh Clinical Pharmacist, Pharmacy Anticoagulation Clinic Pharmacy Anticoagulation Clinic Pager: [phone] . documented in this encounterGlenbeigh Hospital06-28-2022 Miscellaneous Notes* Telephone Encounter - Jonathan Hawkins RPh - 02/04/2022 8:35 AM EDT [facility] Anticoagulation Episode Summary Anticoagulation Care Providers Provider Role Specialty Phone number George Mata MD Responsible Internal Medicine [phone] Bessy Valverde is a 76 year old year old male patient being evaluated today for a Telemanagement visit. Patient is currently on the following anticoagulant(s) Warfarin. Labs PT INR (no units) Date Value 11/19/2021 2.7 biotel 11/05/2021 2.5 10/22/2021 2.8 biotel INR Home CoaguChek (no units) Date Value 02/04/2022 2.8 01/21/2022 2.2 01/07/2022 2.4 Hemoglobin (g/dL) Date Value 01/22/2022 13.5 09/23/2021 13.8 Hematocrit (%) Date Value 01/22/2022 41.5 09/23/2021 44.4 Platelet Count (k/uL) Date Value 01/22/2022 129 09/23/2021 160 Creatinine (mg/dL) Date Value 01/22/2022 1.41 09/23/2021 1.18 09/02/2021 1.31 08/05/2021 1.68 Bilirubin, Total (mg/dL) Date Value 08/22/2021 1.2 ALT (U/L) Date Value 08/22/2021 36 AST (U/L) Date Value 08/22/2021 45 Estimated Creatinine Clearance: 43.9 mL/min (A) (based on SCr of 1.41 mg/dL (H)). ALLERGIES No Known Allergies Indication for Warfarin: Anticoagulation Episode Summary Current INR goal: 2.0-3.0 Assessment: INR result of 2.8 is therapeutic Plan: Called and spoke to patient/caregiver Advised patient to continue current weekly dose Next point of care INR check scheduled on 02/18/2022 Patient verbalizes understanding of the plan. Jonathan Hawkins RPh Clinical Pharmacist, Pharmacy Anticoagulation Clinic Pharmacy Anticoagulation Clinic Pager: [phone] . documented in this encounterGlenbeigh Hospital05-17-2022 Miscellaneous Notes* Telephone Encounter - Jonathan Hawkins RPh - 12/24/2021 9:52 AM EDT [facility] Anticoagulation Episode Summary Anticoagulation Care Providers Provider Role Specialty Phone number George Mata MD [facility] Internal Medicine [phone] Bessy Valverde is a 76 year old year old male patient being evaluated today for a Telemanagement visit. Patient is currently on the following anticoagulant(s) Warfarin. Labs PT INR (no units) Date Value 11/19/2021 2.7 biotel 11/05/2021 2.5 10/22/2021 2.8 biotel INR Home CoaguChek (no units) Date Value 12/24/2021 2.9 12/10/2021 2.7 Hemoglobin (g/dL) Date Value 09/23/2021 13.8 Hematocrit (%) Date Value 09/23/2021 44.4 Platelet Count (k/uL) Date Value 09/23/2021 160 Creatinine (mg/dL) Date Value 09/23/2021 1.18 09/02/2021 1.31 08/05/2021 1.68 Bilirubin, Total (mg/dL) Date Value 08/22/2021 1.2 ALT (U/L) Date Value 08/22/2021 36 AST (U/L) Date Value 08/22/2021 45 Estimated Creatinine Clearance: 52.4 mL/min (based on SCr of 1.18 mg/dL). ALLERGIES No Known Allergies Indication for Warfarin: Anticoagulation Episode Summary Current INR goal: 2.0-3.0 Assessment: INR result of 2.9 is therapeutic Plan: Left voice message Advised patient to continue current weekly dose Next home INR check scheduled on 01/07/2022 Jonathan Hawkins [facility] Clinical Pharmacist, Pharmacy Anticoagulation Clinic Pharmacy Anticoagulation Clinic Pager: [phone] . documented in this encounterGlenbeigh Hospital05-03-2022 Miscellaneous Notes* Telephone Encounter - Roberth Lynda [facility] - 12/10/2021 9:27 AM EDT [facility] Anticoagulation Episode Summary Anticoagulation Care Providers Provider Role Specialty Phone number George Mata MD [facility] Internal Medicine [phone] Bessy Valverde is a 75 year old year old male patient being evaluated today for a Telemanagement visit. Patient is currently on the following anticoagulant(s) Warfarin. Labs PT INR (no units) Date Value 11/19/2021 2.7 biotel 11/05/2021 2.5 10/22/2021 2.8 biotel INR Home CoaguChek (no units) Date Value 12/10/2021 2.7 Hemoglobin (g/dL) Date Value 09/23/2021 13.8 Hematocrit (%) Date Value 09/23/2021 44.4 Platelet Count (k/uL) Date Value 09/23/2021 160 Creatinine (mg/dL) Date Value 09/23/2021 1.18 09/02/2021 1.31 08/05/2021 1.68 Bilirubin, Total (mg/dL) Date Value 08/22/2021 1.2 ALT (U/L) Date Value 08/22/2021 36 AST (U/L) Date Value 08/22/2021 45 Estimated Creatinine Clearance: 53.3 mL/min (based on SCr of 1.18 mg/dL). ALLERGIES No Known Allergies Indication for Warfarin: Permanent atrial fibrillation (hcc) penitentiary (current) use of anticoagulants Anticoagulation Episode Summary Current INR goal: 2.0-3.0 Assessment: INR result of 2.7 is therapeutic Plan: Called and spoke to patient/caregiver Advised patient to continue current weekly dose Next point of care INR check scheduled on 12/24/2021 Patient verbalizes understanding of the plan. Patient denies need for refills. Roberth Howell RPh Clinical Pharmacist, Pharmacy Anticoagulation Clinic Pharmacy Anticoagulation Clinic Pager: [phone] . * Telephone Encounter - Roberth Howell RPh - 12/10/2021 9:12 AM EDT Patient due to test INR today. Will continue to monitor for results. Roberth Howell RPh documented in this encounterGlenbeigh Hospital04-22-2022 Miscellaneous Notes* Telephone Encounter - Paola Young APRN.CNP - 11/29/2021 8:43 AM EDT PDMP website checked and validated. All prescriptions have been APPROPRIATELY filled. No suspiciousactivity was identified. 11/29/2021 by Paola Young APRN.CNP * Telephone Encounter - Irene Garcia LPN - 11/28/2021 9:27 AM EDT Last see pcp 08/15/21 Next appt with pcp 01/17/22. * Telephone Encounter - Alpa Christian Pss - 11/28/2021 8:48 AM EDT Patient has been identified by name and date of : Yes Pending Prescriptions Disp Refills WARFARIN 5 MG TABLET 90 tablet 1 Si.5 mg every Thu, Thu, Thu; 5 mg all other days KRISTINA: No [id number] 16.2 MG-0.1037 MG-0.0194 MG TABLET 240 tablet 0 Sig: Take 1 tablet by mouth every 6 hours as needed. KRISTINA: No RX INSTRUCTIONS: Patient aware RX will be sent to pharmacy. No need to notify patient. Patient aware RX escripted to mail away pharmacy. No need to notify patient. Alpa Dominguez documented in this encounterGlenbeigh Hospital03-29-2022 Miscellaneous Notes* Telephone Encounter - Jonathan Hawkins RPh - 11/05/2021 8:26 AM EDT [facility] Anticoagulation Episode Summary Anticoagulation Care Providers Provider Role Specialty Phone number George Mata MD [facility] Internal Medicine [phone] Bessy Valverde is a 75 year old year old male patient being evaluated today for a Telemanagement visit. Patient is currently on the following anticoagulant(s) Warfarin. Labs PT INR (no units) Date Value 11/05/2021 2.5 10/22/2021 2.8 [facility] 10/08/2021 2.9 Hemoglobin (g/dL) Date Value 09/23/2021 13.8 Hematocrit (%) Date Value 09/23/2021 44.4 Platelet Count (k/uL) Date Value 09/23/2021 160 Creatinine (mg/dL) Date Value 09/23/2021 1.18 09/02/2021 1.31 08/05/2021 1.68 Bilirubin, Total (mg/dL) Date Value 08/22/2021 1.2 ALT (U/L) Date Value 08/22/2021 36 AST (U/L) Date Value 08/22/2021 45 Estimated Creatinine Clearance: 53.2 mL/min (based on SCr of 1.18 mg/dL). ALLERGIES No Known Allergies Indication for Warfarin: Anticoagulation Episode Summary Current INR goal: 2.0-3.0 Assessment: INR result of 2.5 is therapeutic Plan: Called and spoke to patient/caregiver Advised patient to continue current weekly dose Next home INR check scheduled on 11/19/2021 Patient verbalizes understanding of the plan. Jonathan Hawkins RPh Clinical Pharmacist, [facility] Pager: [phone] . [facility] Discharge instructions Patient Education 10/24/2021 11:39:09 3- Heart Cath/PCI radial (05/2018) (CUSTOM) HEART CATHETERIZATION/PCI (radial) Discharge Instructions DIET Drink plenty of fluids for the next 48 hours to help your kidneys flush the heart cath dye out of your system ACTIVITY For the next 48 hours: Do not deep bend the neck Do not use the hand/arm to support your weight when rising from a chair or bed Do not drive For the next 7 days: Do not submerse your procedure site in water Do not lift, push, or pull anything greater than 5 pounds Do not swim or take tub baths You may write, eat, type, and shower WOUND CARE Keep the small dressing on your procedure site for the next 24 hours, then leave open to air Change the Band-Aid daily or if it gets wet/soiled AFTER YOU GO HOME, CALL YOUR DOCTOR FOR: Any increase in bruising or tenderness from the procedure site Any redness, pus, or other signs of infection at the site A temperature above 100.5 Severe pain at the site DIAL 911 AND RETURN TO THE HOSPITAL FOR: Any bleeding from the procedure site. The site may be bruised or tender, but it should not be bleeding at any time. If your site begins to bleed, hold firm pressure on it and dial 911 to return to the hospital Any increase in swelling at the procedure site. An increase in swelling could mean the area is bleeding under the skin. Hold firm pressure to the site and dial 911 to return to the hospital Document Released: 07/27/2006 Document Revised: 07/13/2013 Document Reviewed: 07/28/2014 ExitCare Patient Information 2014 [employer]. This information is not intended to replace advicegiven to you by your health care provider. Make sure you discuss any questions you have with your health care provider. 10/24/2021 11:37:33 Moderate Conscious Sedation, Adult, Care After Moderate Conscious Sedation, Adult, Care After These instructions provide you with information about caring for yourself after your procedure. Your health care provider may also give you more specific instructions. Your treatment has been plannedaccording to current medical practices, but problems sometimes occur. Call your health care provider if you have any problems or questions after your procedure. What can I expect after the procedure? After your procedure, it is common: To feel sleepy for several hours. To feel clumsy and have poor balance for several hours. To have poor judgment for several hours. To vomit if you eat too soon. Follow these instructions at home: For at least 24 hours after the procedure: Do not: ?Participate in activities where you could fall or become injured. ?Drive. ?Use heavy machinery. ?Drink alcohol. ?Take sleeping pills or medicines that cause drowsiness. ?Make important decisions or sign legal documents. ?Take care of children on your own. Rest. Eating and drinking Follow the diet recommended by your health care provider. If you vomit: ?Drink water, juice, or soup when you can drink without vomiting. ?Make sure you have little or no nausea before eating solid foods. General instructions Have a responsible adult stay with you until you are awake and alert. Take [id number]-[id number] and prescription medicines only as told by your health care provider. If you smoke, do not smoke without supervision. Keep all follow-up visits as told by your health care provider. This is important. Contact a health care provider if: You keep feeling nauseous or you keep vomiting. You feel light-headed. You develop a rash. You have a fever. Get help right away if: You have trouble breathing. This information is not intended to replace advice given to you by your health care provider. Make sure you discuss any questions you have with your health care provider. Document Released: 05/17/2014 Document Revised: 07/09/2018 Document Reviewed: 11/15/2016 [employer] Patient Education 2020 [employer]. Follow Up Care 10/17/2021 14:04:25 With:BRIONNA GANT MD Address: [address] [place] [address] [id number] [facility] [place] [address]- [phone] When:12/30/2021 14:45:00 [facility] 12-22-2021 Hospital Discharge instructions Patient Education 07/31/2021 12:41:30 Ventricular Tachycardia Ventricular Tachycardia Ventricular tachycardia is a fast heartbeat that begins in the lower chambers of the heart (ventricles). It is a type of abnormal heart rhythm (arrhythmia). A normal heartbeat usually starts when an area in the heart called the sinoatrial (SA) node releases an electrical signal. With ventricular tachycardia, electrical signals in the lower part of the heart fire abnormally and interfere with the electrical signals sent out by the SA node. A normal heart rate is 60 100 beats per minute. During an episode of ventricular tachycardia, the heart reaches 100 beats per minute or higher. This condition can be life-threatening and should be treated immediately. What are the causes? This condition is caused by abnormal electrical activity in the lower part of the heart. This may result from: Medicines. Diseases of the heart muscle (cardiomyopathy). The heart not getting enough oxygen. This may be caused by blood flow problems in the arteries. An inflammatory disease that affects multiple areas of the body (sarcoidosis). Drug use, such as cocaine, amphetamine, or anabolic steroid use. What increases the risk? You are more likely to develop this condition if: You have had a heart attack. You have: ?Heart failure or cardiomyopathy. ?Heart defects that you were born with (congenital heart defects). ?Abnormal heart tissue. ?Heart valves that leak or are narrow. ?Diabetes. ?An infection that affects the heart. ?High blood pressure. ?An overactive or underactive thyroid. ?Sleep apnea. ?A family history of stopped heartbeat (cardiac arrest) or coronary artery disease. ?High cholesterol. You smoke. You drink alcohol heavily. You use drugs, such as cocaine. What are the signs or symptoms? Symptoms of this condition include: A pounding heartbeat. Feeling as if your heart is skipping beats or fluttering (palpitations). Shortness of breath. Anxiety. Dizziness. Light-headedness. Fainting. Chest pain. Cardiac arrest caused by an irregular heartbeat (arrhythmia). How is this diagnosed? This condition may be diagnosed based on: Your symptoms and medical history. A physical exam. Electrocardiogram (ECG). This test is done to check for problems with electrical activity in the heart. Holter monitor or event monitor test. This test involves wearing a portable device that monitors your heart rate over time. You may also have other tests, including: Blood tests. Chest X-ray. Echocardiogram. This test involves using sound waves to create images of the heart. Angiogram. During this test, dye is injected into your bloodstream, and then X- rays are taken. The dye lets your health care provider see how blood flows through your arteries. Exercise stress test. During this test, an ECG is done while you exercise on a treadmill. Cardiac CT scan or cardiac MRI. How is this treated? Treatment for this condition depends on the cause. Treatment may include: Medicines that slow the heart rate and return it to a normal rhythm (anti-arrhythmics). An electric shock (cardioversion) that makes the heart go back to a normal rhythm. An electrophysiology study. This procedure can help locate areas of heart tissue that are causing rapid heartbeats. ?In this procedure, a thin, flexible tube (catheter) is inserted into one of your veins and moved to your heart to evaluate your heart's electrical activity. ?In some cases, the heart tissue that is causing problems may be killed with radiofrequency energy delivered through the catheter (radiofrequency ablation). This may help your heart keep a normal rhythm. An implantable cardioverter defibrillator (ICD). This is a small device that monitors your heartbeat. When it senses an irregular heartbeat, it sends a shock to bring the heartbeat back to normal. The ICD is implanted under the skin in the chest. Surgery to improve blood flow to the heart. Genetic counseling to check whether your family members are at risk for ventricular tachycardia. Follow these instructions at home: Lifestyle Do not use any products that contain nicotine or tobacco, such as cigarettes and e-cigarettes. If you need help quitting, ask your health care provider. Do not use stimulant drugs, such as cocaine or methamphetamines. Maintain a healthy weight. Manage stress. Try to do this with relaxation exercises, yoga, quiet time, or meditation. Eating and drinking Eat a healthy diet. This includes plenty of fruits and vegetables, whole grains, lean meats, and low-fat or fat-free dairy products. Avoid eating foods that are high in saturated fat, trans fat, sugar, or salt (sodium). Ask your health care provider if you may drink alcohol. ?If alcohol triggers episodes of ventricular tachycardia, do not drink alcohol. ?If alcohol does not trigger episodes, limit alcohol intake to no more than 1 drink a day for non women and 2 drinks a day for men. One drink equals 12 oz of beer, 5 oz of wine, or 1 oz of hard liquor. General instructions Take yhta-fyi-yilmibv and prescription medicines only as told by your health care provider. Exercise regularly. Aim for 150 minutes of moderate exercise or 75 minutes of vigorous exercise perweek. Ask your health care provider what exercises are safe for you. Keep all follow-up visits as told by your health care provider. This is important. Contact a health care provider if: Your symptoms get worse. You develop new symptoms, such as new palpitations. You feel depressed. Get help right away if: You have an episode of ventricular tachycardia that lasts 30 seconds or more. You have chest pain. You have trouble breathing. These symptoms may represent a serious problem that is an emergency. Do not wait to see if the symptoms will go away. Get medical help right away. Call your local emergency services (911 in the [place] Do not drive yourself to the hospital. Summary Ventricular tachycardia is a fast heartbeat that begins in the lower chambers of the heart. This condition can be life-threatening and should be treated immediately. This condition may be treated with medicines, electric shock, radiofrequency energy, surgery, or insertion of an implantable cardioverter defibrillator (ICD). Get help right away if you have chest pain, trouble breathing, or ventricular tachycardia symptoms that last more than 30 seconds. This information is not intended to replace advice given to you by your health care provider. Make sure you discuss any questions you have with your health care provider. Document Released: 09/17/2017 Document Revised: 07/09/2018 Document Reviewed: 09/17/2017 [employer] Patient Education 2020 [employer] 07/31/2021 12:41:10 Form - Daily Weight Record Daily Weight Record It is important to weigh yourself daily. To do this: Make sure you use a reliable scale. Use the same scale each day. Keep this daily weight chart near your scale. Weigh yourself each morning at the same time. Before weighing yourself: ?Take off your shoes. ?Make sure you are wearing the same amount of clothing each day. Write down your weight in the spaces on the form. Compare today's weight to yesterday's weight. Bring this form with you to your follow-up visits with your health care provider. Call your health care provider if you have concerns about your weight, including rapid weight gain or loss. Date: Weight: Date: Weight: Date: Weight: Date: Weight: Date: Weight: Date: Weight: Date: Weight: Date: Weight: Date: Weight: Date: Weight: Date: Weight: Date: Weight: Date: Weight: Date: Weight: Date: Weight: Date: Weight: Date: Weight: Date: Weight: Date: Weight: Date: Weight: Date: Weight: Date: Weight: Date: Weight: Date: Weight: Date: Weight: Date: Weight: Date: Weight: Date: Weight: Date: Weight: Date: Weight: Date: Weight: Date: Weight: Date: Weight: Date: Weight: Date: Weight: Date: Weight: Date: Weight: Date: Weight: Date: Weight: Date: Weight: Date: Weight: Date: Weight: Date: Weight: Date: Weight: Date: Weight: Date: Weight: Date: Weight: Date: Weight: Date: Weight: Date: Weight: This information is not intended to replace advice given to you by your health care provider. Make sure you discuss any questions you have with your health care provider. Document Released: 10/08/2007 Document Revised: 07/26/2018 Document Reviewed: 07/26/2018 [employer]ate Patient Education 2020 [employer]. 07/31/2021 12:40:52 3- Heart Cath/PCI groin (05/2018)(CUSTOM) HEART CATHETERIZATION/PCI (groin) Discharge Instructions DIET INSTRUCTIONS Drink plenty of fluids for the next 48 hours to help your kidneys flush the heart cath dye out of your system ACTIVITIES May go up and down stairs CAREFULLY Do not drive car FOR 24 HOURS No heavy lifting GREATER THAN 10 POUNDS or pushing or straining FOR 2 DAYS Someone must stay with you at home after the procedure until the morning. BATHING/SHOWERING May tub bathe in 1 week May shower tomorrow WOUND CARE You will go home with a Band-Aid over your heart cath site. Keep a Band-Aid on for the next 24 hours and then leave open to air. Some degree of bruising and tenderness is normal around the heart cath site. It will take a while for any bruising to completely resolve. Keep your site clean and dry. You need to report the following to your vat house supervisor: Any draining or oozing from the site Any swelling at the site Any increased pain or tenderness at the site Any numbness in your leg where the procedure was done Any signs of infection IMPORTANT! CALL 911 FOR ANY BLEEDING OR SWELLING AT THE PROCEDURE SITE If there is any large amount of bleeding, you or someone else need to apply direct pressure to the site (just like the nurse did in the heart lab after your procedure). It is very important that you hold constant pressure. Do not release the pressure to check if the bleeding has stopped. You then need to be transported to the nearest emergency room. WATCH FOR SIGNS OF INFECTION (Usually appears 36-48 hours after surgery) A temperature above 100.5 Redness or swelling Increased pain Foul odor or drainage If you have any questions, please call your doctor at the number listed on your follow up instructions. Follow all instructions given to you by your physician Document Released: 07/27/2006 Document Revised: 07/13/2013 Document Reviewed: 07/28/2014 ExitCare Patient Information 2015 [employer]. This information is not intended to replace advicegiven to you by your health care provider. Make sure you discuss any questions you have with your health care provider. 07/31/2021 12:40:32 Subcutaneous Injection Instructions Using a Prefilled Syringe Subcutaneous Injection Instructions Using a Prefilled Syringe A subcutaneous injection is a shot of medicine that is given into the layer of fat and tissue between skin and muscle. The injection is given with a single-use syringe that is already filled with medicine (prefilled syringe). Read the medicine guide or package insert that came with the syringe. Follow directions from the guide about how to prepare and give the injection. This is important because the directions may be different for each medicine. Use only the syringe, needle, and medicine that your health care provider prescribes. Use each prefilled syringe and needle only one time. Supplies needed: Prefilled syringe with needle. Use the needle length and size (gauge) that your health care provider or pharmacist gives to you. Alcohol wipes. Bandage. A container for syringe disposal. This may be a puncture-proof sharps container or a hard-sided plastic container that has a secure lid, such as an empty laundry detergent bottle. How to choose a site for injection Follow instructions from your health care provider about where to give an injection. Do not inject in the same spot each time. There are five main areas that can be used for injecting. These areas include: Abdomen. Avoid the area that is within 2 inches (5 cm) of your navel (umbilicus). Front of thigh. Upper, outer side of thigh. Upper, outer side of arm. Upper, outer part of buttock. How to give an injection using a prefilled syringe 1.Wash your hands with soap and water. If soap and water are not available, use hand plate glass polisher. 2.Use an alcohol wipe to clean the site where you will be injecting the needle. Let the site air-dry. 3.Remove the plastic cover from the needle on the syringe. Do not let the needle touch anything. 4.Hold the syringe with the needle pointing up. Check the syringe for any remaining air bubbles. Ifthere are air bubbles, flick the syringe with your finger until the air bubbles rise to the top. Then, gently push on the plunger until you can see a drop of medicine appear at the tip of the needle.This will clear any remaining air bubbles from the syringe. 5.Hold the syringe in your writing hand like a pencil. 6.Use your other hand to pinch and hold about an inch (2.5 cm) of skin. Do not directly touch the cleaned part of the skin. 7.Insert the entire needle straight into the fold of skin. The needle should be at a 90-degree angle (perpendicular) to the skin. Push the needle all the way against the skin. The needle may need to be injected at a 45-degree angle in thin adults or children who have a small amount of body fat. 8.After the needle is completely inserted into the skin, release the skin that you are pinching. Continue to hold the syringe with your writing hand. 9.Use your thumb or index finger of your writing hand to push the plunger all the way into the syringe to inject the medicine. 10.Pull the needle straight out of the skin. 11.Press and hold the alcohol wipe over the injection site until bleeding stops. Do not rub the area. 12.Cover the injection site with a bandage, if needed. How to safely throw away the supplies If you are using a syringe that does not have a safety system for shielding the needle after injection: Do not recap the needle. Place the syringe and needle in the disposal container. If your syringe has a safety system for shielding the needle after injection: Firmly push down on the plunger after you complete the injection. The protective sleeve will automatically cover the needle, and you will hear a click. The click means that the needle is safely covered. Follow the disposal regulations for the area where you live. Do not use any syringe or needle more than one time. Contact a health care provider if: You have difficulty giving the injection. You think that the injection was not given correctly. You have difficulty with any of the supplies. The medicine causes side effects. Rashes develop on the skin. A fever develops. The condition that is being treated gets worse. Get help right away if: Any of these symptoms develop after the injection is given: Difficulty breathing. Chest pain. A rash over most or all of the body. Swelling of the lips or tongue. Difficulty swallowing. Summary A subcutaneous injection is a shot of medicine that is given into the layer of fat and tissue between skin and muscle. Read the medicine guide or package insert that came with the syringe. Follow directions from the guide about how to prepare and give the injection. Follow instructions from your health care provider about where to give an injection. Contact a health care provider if you cannot give an injection, you think you gave it incorrectly, or you develop any side effects of the medicine. Get help right away if any of these develop after an injection: difficulty breathing, chest pain, rash on the body, swelling of the lips or tongue, or difficulty swallowing. This information is not intended to replace advice given to you by your health care provider. Make sure you discuss any questions you have with your health care provider. Document Released: 04/08/2012 Document Revised: 11/17/2019 Document Reviewed: 04/27/2019 [employer] Patient Education 2020 [employer]. 07/25/2021 16:11:22 When Your AICD Discharges AICD Discharge Your AICD. (automated implantable cardioverter/defibrillator) delivered a shock today. Checking thedevice memory will help your healthcare team figure out the cause of the shock. Most of the time a shock is delivered only when a life- threatening arrhythmia appears. In this case, it is life-saving.Rarely, the AICD may discharge in error. The shock can be painful and you may feel soreness in your muscles or just shaken up emotionally from the unexpected event. If your AICD is discharging often, the cause can be determined by checking the recordings of your heart rhythm just before the discharge occurred. Then your healthcare provider can adjust the AICD settings, assess any changes in your heart condition, or modify your anti-arrhythmia medicines to reduce the frequency of discharge. Home care The following guidelines will help you care for yourself at home: Tell your healthcare provider if you have an AICD shock. He or she will advise you if you need to go to the hospital immediately. Rest today and resume your usual activities tomorrow. Don't push or pull on the pacemaker. This may cause the wires to become twisted. Don't operate cell phones close to the generator. Because of the unexpected nature of arrhythmias and the AICD discharge, driving can be dangerous. It is often recommended that you have a 6-month shock-free period before driving again. Talk with your healthcare provider about whether or not is safe for you to drive. You will not be eligible for a commercial attorney's license if you have an AICD because of the high risk for losing consciousness with the life-threatening heart rhythms that this device is designed to treat. Follow-up care Follow up with your healthcare provider, or as advised. It is important your healthcare provider checks your device and the battery to make sure they are working properly after the device has fired. The battery life is controlled by how much your heart uses the device. The more times you receive a shock from the device, the shorter time the battery will last. You should ask your provider how often your device should be checked, but generally, you should have the battery checked at least every 6 months. Once the battery gets low enough, it goes into an energy-saving mode and the generator will have to bechanged. In general, the generator has to be changed every 5 to 7 years. Call 911 Call 911 if any of these occur: Multiple shocks Chest pain Trouble breathing Difficulty with speech or vision, weakness of an arm or leg Weakness, dizziness, lightheadedness, or fainting Palpitations (the sense that your heart is fluttering or beating fast or hard or irregularly) When to seek medical advice Get prompt medical attention if you have any of the following: Another AICD discharge Prolonged hiccups Pain, swelling, redness, drainage, bleeding, or warmth from the implant site A fever above 100.4 F (38 C) Your generator feels loose or like it is wiggling in the pocket under the skin [id number] [employer]. [address] [place] [address]. All rights reserved. This information is not intended as a substitute for professional medical care. Always follow yourhealthcare professional's instructions. 07/25/2021 16:11:21 Living with an ICD Living with an Implantable Cardioverter Defibrillator (ICD) Your ICD is a device that monitors the electrical signals in your heart. Most ICDs are well protected from interference with other electrical devices. Microwave ovens and most common household and yard appliances will not cause problems. Signals from some large electric or magnetic mitchell can make i nterference noise on your ICD. This can cause problems. Possible sources of interference include certain heavy equipment, strong magnets, running motors, and large tools such as commercial arc welders. Don't work on your car with the motor running. But it's safe to drive. Check with your doctor about any large, unusual power tools you use. Signals that cause problems To protect your ICD, be careful around: Cell phones. Always carry a cell phone on the side opposite your ICD. Keep your phone at least 6 inches away from the ICD. Wear a headset while using a cell phone. Or hold the phone to the ear opposite your ICD. Electromagnetic anti-theft systems. These are often near entrances or exits in stores. Walking through one is OK. But don't stand near or lean against one. Strong electrical mitchell. These can be caused by radio transmitting towers and heavy-duty electrical equipment such as arc welders. A running engine also creates an electrical field. It s OK to driveor ride in a car. But don't lean over the open [place] of a running car. Very strong magnets. Talk with your heart doctor if another doctor tells you to have an MRI. This medical test uses strong magnets. Some ICD devices are considered safe for having an MRI. They are called MR-conditional devices. Even with these, you need to take safety precautions. Magnets in big stereo or concert speakers can cause problems if you come to close to them. Hand-held security wands such as those used at airports can also cause problems if they come too close to the ICD. If a signal interferes The ICD could turn off or reset if it s near one of the signals described above. You could even geta shock. If you think you were exposed to a signal like this, call your doctor and explain what happened. Also call your doctor if you sense any interference with your device. Carry an ID card You ll be given a temporary ID card when you get your ICD. The permanent card will be mailed to youin about 6 weeks. Show this card to any doctor, dentist, or other healthcare provider you visit. Also show it to guards at the airport. This way, they know to follow special procedures that prevent the security wand from interfering with your ICD. Driving safety with an ICD ICD devices are implanted to shock the heart out of a life threatening heart rhythm. These heart rhythms can cause loss of consciousness (syncope). Your healthcare provider will give you directions on if and when it's safe to drive after you have had one of these devices implanted. Generally, you should not drive for 6 months after you have had this device implanted, or after the device has delivered a shock. You should never drive for commercial purposes after you have an ICD implanted. This is often restricted by state laws because of the high risk of passing out and the dangers that poses while driving. Follow up Plan on having regular checkups with your healthcare provider to check the battery life of your ICD. Depending on your device and how much your body uses the pacing functions of the ICD, you will need a new device generator implanted at some point. That's often about every 8 to 10 years. On average, this monitoring should happen every 3 to 6 months, or as advised by your healthcare provider. For some devices, the monitoring of the device function and battery life can be done with a remote monitor set up in your home. Remote monitoring systems use the internet or telephone to send the information from your device to your healthcare provider. 3189-6546 [employer]. [address] [place] [address]. All rights reserved. This information is not intended as a substitute for professional medical care. Always follow yourhealthcare professional's instructions. Follow Up Care 07/25/2021 12:16:53 With:DEANA SIDDIQI Address: [address] [facility] [id number] [facility] [place] [address] [phone] [facility] (1) When:5-7 days Comments:Schedule appointment as soon as possible With:post discharge home follow up visit scheduled for 08/02 between 8a-12n Address:Unknown When: Unknown With:RN Records Analyst Address: When:1-2 days Comments:RN CC will call you at home after discharge. If you have any non- emergent questions or needs, please call [phone], Mon.- Fri., 08:00 -- 04:30 p.m. With:Go to emergency room if symptoms worsen Address:Unknown When:2-4 days With:GEORGE MATA MD Address: [address] [place] [address]- When:2-4 days [facility] 12-16-2021 Evaluation + Plan noteExtracted from: Title:History and Physical Author:FAIZAN FLOWERS MD Date:07/25/21 1. BIVENTRICULAR ICD (IMPLAN TABLE CARDIOVERTER-DEFIBRILLATOR) IN PLACE Addendum by Herber HAY MD on July 26, 2021 07:46:46 EST Patient presents with appropriate ICD shocks. Interrogation shows ventricular tachycardia. Patient has known cardiomyopathy. Ventricle tachycardia likely from underlying cardiomyopathy. Patient has no chest pain. Does have occasional shortness of exertion. Patient likely had an ischemic evaluation. Will discuss with primary vat house supervisor in regards to inpatient versus outpatient ischemic evaluation as his INR is therapeutic at this time no evidence of acute coronary syndrome at this time. Mild troponin elevation likely in setting of ICD shocks. I have personally seen, examined, and evaluated the patient on the encounter date. I have reviewed the fellow s documentation and agree with the fellow s findings and plan as documented, unless otherwise stated. Future Appointments Appointment Date:08/16/2021 11:00:00 AM Scheduled Provider: Location:[facility] Appointment Type:CV Office Procedure ICD Appointment Date:09/23/2021 01:30:00 PM Scheduled Provider: Location:[facility] Appointment Type:CV [facility] Appointment Date:11/15/2021 04:00:00 PM Scheduled Provider: Location:[facility] Appointment Type:CV Remote Procedure HM Appointment Date:02/14/2022 04:15:00 PM Scheduled Provider: Location:[facility] Appointment Type:CV Remote Procedure [facility] 12-03-2021 History of Present illness Narrative* Raquel Maki, RT(R) - 07/12/2021 9:20 AM EST Radiology Service Progress Note PATIENT NAME: Bessy Valverde DATE OF SERVICE: July 12, 2021 TIME: 9:19 AM PATIENT IDENTITY VERIFICATION COMPLETED USING TWO (2) IDENTIFIERS: Name and Date of confirmedby patient verbally. FALL SCREENING: Has the patient had 2 falls in the last year or 1 fall with injury or currently using an Ambulatory Assistive Device (Walker, Cane, Wheelchair, Crutches, etc.)? No PATIENT GENDER DATA: Male PATIENT RELEVANT IMPLANT DATA REVIEWED: Yes RADIOLOGY DEPARTMENT: General X-ray: Exam(s) Completed: Lower Extremity X- Ray(s): Foot, Left PERIPHERAL IV DATA: Not applicable SIGNED BY: RT Ervin(R) July 12, 2021 9:19 AM [facility] History of Present illness Narrative* Raquel Maki RT(R) - 03/19/2021 11:40 AM EDT Radiology Service Progress Note PATIENT NAME: Bessy Valverde DATE OF SERVICE: March 19, 2021 TIME: 11:41 AM PATIENT IDENTITY VERIFICATION COMPLETED USING TWO (2) IDENTIFIERS: Name and Date of confirmedby patient verbally. FALL SCREENING: Has the patient had 2 falls in the last year or 1 fall with injury or currently using an Ambulatory Assistive Device (Walker, Cane, Wheelchair, Crutches, etc.)? No PATIENT GENDER DATA: Male PATIENT RELEVANT IMPLANT DATA REVIEWED: Yes RADIOLOGY DEPARTMENT: General X-ray: Exam(s) Completed: Chest X-Ray PERIPHERAL IV DATA: Not applicable SIGNED BY: RT Ervin(R) March 19, 2021 11:41 AM documented [facility] History of Past illness Narrative* Problem Noted Date Resolved Date CKD (chronic kidney disease) stage 3, GFR 30-59 ml/min 01/29/2019 11/30/2019 Impaired fasting glucose 02/21/2015 018 Anticoagulated on Coumadin ( home INR testing) 0 05/02/2013 11/30/2019 Overview: Test INR at home every other week. 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 Positive fecal occult blood test 08/23/2012 12/03/2012 Occult GI bleeding 08/13/2012 12/03/2012 Diverticulosis 07/26/2010 01/27/2019 Screen for colon cancer 07/11/2010 12/04/19 13 Postsurgical aortocoronary bypass status 2 007 01/27/2019 Esophageal reflux 05/19/2005 01/06/2018 documented as of this encounter (statuses as of 11/29/2021) [facility] Narrative* Problem Noted Date Resolved Date CKD (chronic kidney disease) stage 3, GFR 30-59 ml/min 01/29/2019 11/30/2019 Impaired fasting glucose 02/21/2015 018 Anticoagulated on Coumadin ( home INR testing) 0 05/02/2013 11/30/2019 Overview: Test INR at home every other week. Positive fecal occult blood test 08/23/2012 12/03/2012 Occult GI bleeding 08/13/2012 12/03/2012 Diverticulosis 07/26/2010 01/27/2019 Screen for colon cancer 07/11/2010 12/04/19 13 Postsurgical aortocoronary bypass status 06/22/2 007 01/27/2019 Esophageal reflux 05/19/2005 01/06/2018 documented as of this encounter (statuses as of 12/10/2021) [facility] Narrative* Problem Noted Date Resolved Date CKD (chronic kidney disease) stage 3, GFR 30-59 ml/min 01/29/2019 11/30/2019 Impaired fasting glucose 02/21/2015 018 Anticoagulated on Coumadin ( home INR testing) 0 05/02/2013 11/30/2019 Overview: Test INR at home every other week. Positive fecal occult blood test 08/23/2012 12/03/2012 Occult GI bleeding 08/13/2012 12/03/2012 Diverticulosis 07/26/2010 01/27/2019 Screen for colon cancer 07/11/2010 12/04/19 13 Postsurgical aortocoronary bypass status 06/22/2 007 01/27/2019 Esophageal reflux 05/19/2005 01/06/2018 documented as of this encounter (statuses as of 12/24/2021) [facility]* Problem Noted Date Resolved Date CKD (chronic kidney disease) stage 3, GFR 30-59 ml/min 01/29/2019 11/30/2019 Impaired fasting glucose 02/21/2015 018 Anticoagulated on Coumadin ( home INR testing) 0 05/02/2013 11/30/2019 Overview: Test INR at home every other week. Positive fecal occult blood test 08/23/2012 12/03/2012 Occult GI bleeding 08/13/2012 12/03/2012 Diverticulosis 07/26/2010 01/27/2019 Screen for colon cancer 07/11/2010 12/04/19 13 Postsurgical aortocoronary bypass status 11/13/2 007 01/27/2019 Esophageal reflux 05/19/2005 01/06/2018 documented as of this encounter (statuses as of 02/04/2022) [facility]* Problem Noted Date Resolved Date CKD (chronic kidney disease) stage 3, GFR 30-59 ml/min 01/29/2019 11/30/2019 Impaired fasting glucose 02/21/2015 018 Anticoagulated on Coumadin ( home INR testing) 0 05/02/2013 11/30/2019 Overview: Test INR at home every other week. Positive fecal occult blood test 08/23/2012 12/03/2012 Occult GI bleeding 08/13/2012 12/03/2012 Diverticulosis 07/26/2010 01/27/2019 Screen for colon cancer 07/11/2010 12/04/19 13 Postsurgical aortocoronary bypass status 06/22/2 007 01/27/2019 Esophageal reflux 05/19/2005 01/06/2018 documented as of this encounter (statuses as of 02/18/2022) [facility]* Problem Noted Date Resolved Date CKD (chronic kidney disease) stage 3, GFR 30-59 ml/min 01/29/2019 11/30/2019 Impaired fasting glucose 02/21/2015 018 Anticoagulated on Coumadin ( home INR testing) 0 05/02/2013 11/30/2019 Overview: Test INR at home every other week. Positive fecal occult blood test 08/23/2012 12/03/2012 Occult GI bleeding 08/13/2012 12/03/2012 Diverticulosis 07/26/2010 01/27/2019 Screen for colon cancer 07/11/2010 12/04/19 13 Postsurgical aortocoronary bypass status 2 007 01/27/2019 Esophageal reflux 05/19/2005 01/06/2018 documented as of this encounter (statuses as of 03/04/2022) [facility]* Problem Noted Date Resolved Date CKD (chronic kidney disease) stage 3, GFR 30-59 ml/min 01/29/2019 11/30/2019 Impaired fasting glucose 02/21/2015 018 Anticoagulated on Coumadin ( home INR testing) 0 05/02/2013 11/30/2019 Overview: Test INR at home every other week. Positive fecal occult blood test 08/23/2012 12/03/2012 Occult GI bleeding 08/13/2012 12/03/2012 Diverticulosis 07/26/2010 01/27/2019 Screen for colon cancer 07/11/2010 12/04/19 13 Postsurgical aortocoronary bypass status 06/22/2 007 01/27/2019 Esophageal reflux 05/19/2005 01/06/2018 documented as of this encounter (statuses as of 03/18/2022) [facility]* Problem Noted Date Resolved Date CKD (chronic kidney disease) stage 3, GFR 30-59 ml/min 01/29/2019 11/30/2019 Impaired fasting glucose 02/21/2015 018 Anticoagulated on Coumadin ( home INR testing) 0 05/02/2013 11/30/2019 Overview: Test INR at home every other week. Positive fecal occult blood test 08/23/2012 12/03/2012 Occult GI bleeding 08/13/2012 12/03/2012 Diverticulosis 07/26/2010 01/27/2019 Screen for colon cancer 07/11/2010 12/04/19 13 Postsurgical aortocoronary bypass status 06/22/2 007 01/27/2019 Esophageal reflux 05/19/2005 01/06/2018 documented as of this encounter (statuses as of 04/01/2022) [facility]* Problem Noted Date Resolved Date CKD (chronic kidney disease) stage 3, GFR 30-59 ml/min 01/29/2019 11/30/2019 Impaired fasting glucose 02/21/2015 018 Anticoagulated on Coumadin ( home INR testing) 0 05/02/2013 11/30/2019 Overview: Test INR at home every other week. Positive fecal occult blood test 08/23/2012 12/03/2012 Occult GI bleeding 08/13/2012 12/03/2012 Diverticulosis 07/26/2010 01/27/2019 Screen for colon cancer 07/11/2010 12/04/19 13 Postsurgical aortocoronary bypass status 06/22/2 007 01/27/2019 Esophageal reflux 05/19/2005 01/06/2018 documented as of this encounter (statuses as of 04/21/2022) [facility]* Problem Noted Date Resolved Date CKD (chronic kidney disease) stage 3, GFR 30-59 ml/min 01/29/2019 11/30/2019 Impaired fasting glucose 02/21/2015 018 Anticoagulated on Coumadin ( home INR testing) 0 05/02/2013 11/30/2019 Overview: Test INR at home every other week. Positive fecal occult blood test 08/23/2012 12/03/2012 Occult GI bleeding 08/13/2012 12/03/2012 Diverticulosis 07/26/2010 01/27/2019 Screen for colon cancer 07/11/2010 12/04/19 13 Postsurgical aortocoronary bypass status 2 007 01/27/2019 Esophageal reflux 05/19/2005 01/06/2018 documented as of this encounter (statuses as of 04/29/2022) [facility]* Problem Noted Date Resolved Date CKD (chronic kidney disease) stage 3, GFR 30-59 ml/min 01/29/2019 11/30/2019 Impaired fasting glucose 02/21/2015 018 Anticoagulated on Coumadin ( home INR testing) 0 05/02/2013 11/30/2019 Overview: Test INR at home every other week. Positive fecal occult blood test 08/23/2012 12/03/2012 Occult GI bleeding 08/13/2012 12/03/2012 Diverticulosis 07/26/2010 01/27/2019 Screen for colon cancer 07/11/2010 12/04/19 13 Postsurgical aortocoronary bypass status 06/22/2 007 01/27/2019 Esophageal reflux 05/19/2005 01/06/2018 documented as of this encounter (statuses as of 05/13/2022) [facility] Problem Noted Date Resolved Date CKD (chronic kidney disease) stage 3, GFR 30-59 ml/min 01/29/2019 11/30/2019 Impaired fasting glucose 02/21/2015 018 Anticoagulated on Coumadin ( home INR testing) 0 05/02/2013 11/30/2019 Overview: Test INR at home every other week. Positive fecal occult blood test 08/23/2012 12/03/2012 Occult GI bleeding 08/13/2012 12/03/2012 Diverticulosis 07/26/2010 01/27/2019 Screen for colon cancer 07/11/2010 12/04/19 13 Postsurgical aortocoronary bypass status 06/22/2 007 01/27/2019 Esophageal reflux 05/19/2005 01/06/2018 documented as of this encounter (statuses as of 05/17/2022) [facility] Problem Noted Date Resolved Date CKD (chronic kidney disease) stage 3, GFR 30-59 ml/min 01/29/2019 11/30/2019 Impaired fasting glucose 02/21/2015 018 Anticoagulated on Coumadin ( home INR testing) 0 05/02/2013 11/30/2019 Overview: Test INR at home every other week. Positive fecal occult blood test 08/23/2012 12/03/2012 Occult GI bleeding 08/13/2012 12/03/2012 Diverticulosis 07/26/2010 01/27/2019 Screen for colon cancer 07/11/2010 12/04/19 13 Postsurgical aortocoronary bypass status 06/22/2 007 01/27/2019 Esophageal reflux 05/19/2005 01/06/2018 documented as of this encounter (statuses as of 05/19/2022) [facility] Problem Noted Date Resolved Date CKD (chronic kidney disease) stage 3, GFR 30-59 ml/min 01/29/2019 11/30/2019 Impaired fasting glucose 02/21/2015 018 Anticoagulated on Coumadin ( home INR testing) 0 05/02/2013 11/30/2019 Overview: Test INR at home every other week. Positive fecal occult blood test 08/23/2012 12/03/2012 Occult GI bleeding 08/13/2012 12/03/2012 Diverticulosis 07/26/2010 01/27/2019 Screen for colon cancer 07/11/2010 12/04/19 13 Postsurgical aortocoronary bypass status 2 007 01/27/2019 Esophageal reflux 05/19/2005 01/06/2018 documented as of this encounter (statuses as of 05/27/2022) [facility]* Problem Noted Date Resolved Date CKD (chronic kidney disease) stage 3, GFR 30-59 ml/min 01/29/2019 11/30/2019 Impaired fasting glucose 02/21/2015 018 Anticoagulated on Coumadin ( home INR testing) 0 05/02/2013 11/30/2019 Overview: Test INR at home every other week. Positive fecal occult blood test 08/23/2012 12/03/2012 Occult GI bleeding 08/13/2012 12/03/2012 Diverticulosis 07/26/2010 01/27/2019 Screen for colon cancer 07/11/2010 12/04/19 13 Postsurgical aortocoronary bypass status 007 01/27/2019 Esophageal reflux 05/19/2005 01/06/2018 documented as of this encounter (statuses as of 06/10/2022) [facility]* Problem Noted Date Resolved Date CKD (chronic kidney disease) stage 3, GFR 30-59 ml/min 01/29/2019 11/30/2019 Impaired fasting glucose 02/21/2015 018 Anticoagulated on Coumadin ( home INR testing) 0 05/02/2013 11/30/2019 Overview: Test INR at home every other week. Positive fecal occult blood test 08/23/2012 12/03/2012 Occult GI bleeding 08/13/2012 12/03/2012 Diverticulosis 07/26/2010 01/27/2019 Screen for colon cancer 07/11/2010 12/04/19 13 Postsurgical aortocoronary bypass status 2 007 01/27/2019 Esophageal reflux 05/19/2005 01/06/2018 documented as of this encounter (statuses as of 06/20/2022) [facility] Problem Noted Date Resolved Date CKD (chronic kidney disease) stage 3, GFR 30-59 ml/min 01/29/2019 11/30/2019 Impaired fasting glucose 02/21/2015 018 Anticoagulated on Coumadin ( home INR testing) 0 05/02/2013 11/30/2019 Overview: Test INR at home every other week. Positive fecal occult blood test 08/23/2012 12/03/2012 Occult GI bleeding 08/13/2012 12/03/2012 Diverticulosis 07/26/2010 01/27/2019 Screen for colon cancer 07/11/2010 12/04/19 13 Postsurgical aortocoronary bypass status 007 01/27/2019 Esophageal reflux 05/19/2005 01/06/2018 documented as of this encounter (statuses as of 06/24/2022) [facility] Problem Noted Date Resolved Date CKD (chronic kidney disease) stage 3, GFR 30-59 ml/min 01/29/2019 11/30/2019 Impaired fasting glucose 02/21/2015 018 Anticoagulated on Coumadin ( home INR testing) 0 05/02/2013 11/30/2019 Overview: Test INR at home every other week. Positive fecal occult blood test 08/23/2012 12/03/2012 Occult GI bleeding 08/13/2012 12/03/2012 Diverticulosis 07/26/2010 01/27/2019 Screen for colon cancer 07/11/2010 12/04/19 13 Postsurgical aortocoronary bypass status 06/22/2 007 01/27/2019 Esophageal reflux 05/19/2005 01/06/2018 documented as of this encounter (statuses as of 07/22/2022) [facility] Problem Noted Date Resolved Date CKD (chronic kidney disease) stage 3, GFR 30-59 ml/min 01/29/2019 11/30/2019 Impaired fasting glucose 02/21/2015 018 Anticoagulated on Coumadin ( home INR testing) 0 05/02/2013 11/30/2019 Overview: Test INR at home every other week. Positive fecal occult blood test 08/23/2012 12/03/2012 Occult GI bleeding 08/13/2012 12/03/2012 Colon polyp 07/26/2010 07/24/2022 Diverticulosis 07/26/2010 01/27/2019 Screen for colon cancer 07/11/2010 12/04/19 13 Postsurgical aortocoronary bypass status 13/2 007 01/27/2019 Esophageal reflux 05/19/2005 01/06/2018 documented as of this encounter (statuses as of 07/24/2022) [facility] Problem Noted Date Resolved Date CKD (chronic kidney disease) stage 3, GFR 30-59 ml/min 01/29/2019 11/30/2019 Impaired fasting glucose 02/21/2015 018 Anticoagulated on Coumadin ( home INR testing) 0 05/02/2013 11/30/2019 Overview: Test INR at home every other week. Positive fecal occult blood test 08/23/2012 12/03/2012 Occult GI bleeding 08/13/2012 12/03/2012 Colon polyp 07/26/2010 07/24/2022 Diverticulosis 07/26/2010 01/27/2019 Screen for colon cancer 07/11/2010 12/04/19 13 Postsurgical aortocoronary bypass status 06/22/2 007 01/27/2019 Esophageal reflux 05/19/2005 01/06/2018 documented as of this encounter (statuses as of 07/26/2022) [facility] Problem Noted Date Resolved Date CKD (chronic kidney disease) stage 3, GFR 30-59 ml/min 01/29/2019 11/30/2019 Impaired fasting glucose 02/21/2015 018 Anticoagulated on Coumadin ( home INR testing) 0 05/02/2013 11/30/2019 Overview: Test INR at home every other week. Positive fecal occult blood test 08/23/2012 12/03/2012 Occult GI bleeding 08/13/2012 12/03/2012 Colon polyp 07/26/2010 07/24/2022 Diverticulosis 07/26/2010 01/27/2019 Screen for colon cancer 07/11/2010 12/04/19 13 Postsurgical aortocoronary bypass status 06/22/2 007 01/27/2019 Esophageal reflux 05/19/2005 01/06/2018 documented as of this encounter (statuses as of 08/10/2022) [facility] Problem Noted Date Resolved Date CKD (chronic kidney disease) stage 3, GFR 30-59 ml/min 01/29/2019 11/30/2019 Impaired fasting glucose 02/21/2015 018 Anticoagulated on Coumadin ( home INR testing) 0 05/02/2013 11/30/2019 Overview: Test INR at home every other week. Positive fecal occult blood test 08/23/2012 12/03/2012 Occult GI bleeding 08/13/2012 12/03/2012 Colon polyp 07/26/2010 07/24/2022 Diverticulosis 07/26/2010 01/27/2019 Screen for colon cancer 07/11/2010 12/04/19 13 Postsurgical aortocoronary bypass status 06/22/2 007 01/27/2019 Esophageal reflux 05/19/2005 01/06/2018 documented as of this encounter (statuses as of 08/11/2022) [facility] History of Past illness Narrative* Problem Noted Date Resolved Date CKD (chronic kidney disease) stage 3, GFR 30-59 ml/min 01/29/2019 11/30/2019 Impaired fasting glucose 02/21/2015 018 Anticoagulated on Coumadin ( home INR testing) 0 05/02/2013 11/30/2019 Overview: Test INR at home every other week. Positive fecal occult blood test 08/23/2012 12/03/2012 Occult GI bleeding 08/13/2012 12/03/2012 Colon polyp 07/26/2010 07/24/2022 Diverticulosis 07/26/2010 01/27/2019 Screen for colon cancer 07/11/2010 12/04/19 13 Postsurgical aortocoronary bypass status 06/22/2 007 01/27/2019 Esophageal reflux 05/19/2005 01/06/2018 documented as of this encounter (statuses as of 08/19/2022) [facility] Past illness Narrative* Problem Noted Date Resolved Date CKD (chronic kidney disease) stage 3, GFR 30-59 ml/min 01/29/2019 11/30/2019 Impaired fasting glucose 02/21/2015 018 Anticoagulated on Coumadin ( home INR testing) 0 05/02/2013 11/30/2019 Overview: Test INR at home every other week. Positive fecal occult blood test 08/23/2012 12/03/2012 Occult GI bleeding 08/13/2012 12/03/2012 Colon polyp 07/26/2010 07/24/2022 Diverticulosis 07/26/2010 01/27/2019 Screen for colon cancer 07/11/2010 12/04/19 13 Postsurgical aortocoronary bypass status 007 01/27/2019 Esophageal reflux 05/19/2005 01/06/2018 documented as of this encounter (statuses as of 08/22/2022) [facility] Past [facility] Narrative* Problem Noted Date Resolved Date CKD (chronic kidney disease) stage 3, GFR 30-59 ml/min 01/29/2019 11/30/2019 Impaired fasting glucose 02/21/2015 018 Anticoagulated on Coumadin ( home INR testing) 0 05/02/2013 11/30/2019 Overview: Test INR at home every other week. Positive fecal occult blood test 08/23/2012 12/03/2012 Occult GI bleeding 08/13/2012 12/03/2012 Colon polyp 07/26/2010 07/24/2022 Diverticulosis 07/26/2010 01/27/2019 Screen for colon cancer 07/11/2010 12/04/19 13 Postsurgical aortocoronary bypass status 2 007 01/27/2019 Esophageal reflux 05/19/2005 01/06/2018 documented as of this encounter (statuses as of 09/02/2022) [facility] Narrative* Problem Noted Date Resolved Date CKD (chronic kidney disease) stage 3, GFR 30-59 ml/min 01/29/2019 11/30/2019 Impaired fasting glucose 02/21/2015 018 Anticoagulated on Coumadin ( home INR testing) 0 05/02/2013 11/30/2019 Overview: Test INR at home every other week. Positive fecal occult blood test 08/23/2012 12/03/2012 Occult GI bleeding 08/13/2012 12/03/2012 Colon polyp 07/26/2010 07/24/2022 Diverticulosis 07/26/2010 01/27/2019 Screen for colon cancer 07/11/2010 12/04/19 13 Postsurgical aortocoronary bypass status 06/22/2 007 01/27/2019 Esophageal reflux 05/19/2005 01/06/2018 documented as of this encounter (statuses as of 09/16/2022) [facility] Narrative* Problem Noted Date Resolved Date CKD (chronic kidney disease) stage 3, GFR 30-59 ml/min 01/29/2019 11/30/2019 Impaired fasting glucose 02/21/2015 018 Anticoagulated on Coumadin ( home INR testing) 0 05/02/2013 11/30/2019 Overview: Test INR at home every other week. Positive fecal occult blood test 08/23/2012 12/03/2012 Occult GI bleeding 08/13/2012 12/03/2012 Colon polyp 07/26/2010 07/24/2022 Diverticulosis 07/26/2010 01/27/2019 Screen for colon cancer 07/11/2010 12/04/19 13 Postsurgical aortocoronary bypass status 06/22/2 007 01/27/2019 Esophageal reflux 05/19/2005 01/06/2018 documented as of this encounter (statuses as of 09/17/2022) [facility] Narrative* Problem Noted Date Resolved Date CKD (chronic kidney disease) stage 3, GFR 30-59 ml/min 01/29/2019 11/30/2019 Impaired fasting glucose 02/21/2015 018 Anticoagulated on Coumadin ( home INR testing) 0 05/02/2013 11/30/2019 Overview: Test INR at home every other week. Positive fecal occult blood test 08/23/2012 12/03/2012 Occult GI bleeding 08/13/2012 12/03/2012 Colon polyp 07/26/2010 07/24/2022 Diverticulosis 07/26/2010 01/27/2019 Screen for colon cancer 07/11/2010 12/04/19 13 Postsurgical aortocoronary bypass status 06/22/2 007 01/27/2019 Esophageal reflux 05/19/2005 01/06/2018 documented as of this encounter (statuses as of 09/30/2022) [facility] Narrative* Problem Noted Date Resolved Date CKD (chronic kidney disease) stage 3, GFR 30-59 ml/min 01/29/2019 11/30/2019 Impaired fasting glucose 02/21/2015 018 Anticoagulated on Coumadin ( home INR testing) 0 05/02/2013 11/30/2019 Overview: Test INR at home every other week. Positive fecal occult blood test 08/23/2012 12/03/2012 Occult GI bleeding 08/13/2012 12/03/2012 Colon polyp 07/26/2010 07/24/2022 Diverticulosis 07/26/2010 01/27/2019 Screen for colon cancer 07/11/2010 12/04/19 13 Postsurgical aortocoronary bypass status 06/22/2 007 01/27/2019 Esophageal reflux 05/19/2005 01/06/2018 documented as of this encounter (statuses as of 10/28/2022) [facility] Narrative* Problem Noted Date Resolved Date CKD (chronic kidney disease) stage 3, GFR 30-59 ml/min 01/29/2019 11/30/2019 Impaired fasting glucose 02/21/2015 018 Anticoagulated on Coumadin ( home INR testing) 0 05/02/2013 11/30/2019 Overview: Test INR at home every other week. Positive fecal occult blood test 08/23/2012 12/03/2012 Occult GI bleeding 08/13/2012 12/03/2012 Colon polyp 07/26/2010 07/24/2022 Diverticulosis 07/26/2010 01/27/2019 Screen for colon cancer 07/11/2010 12/04/19 13 Postsurgical aortocoronary bypass status 06/22/2 007 01/27/2019 Esophageal reflux 05/19/2005 01/06/2018 documented as of this encounter (statuses as of 12/09/2022) [facility] Narrative* Problem Noted Date Resolved Date CKD (chronic kidney disease) stage 3, GFR 30-59 ml/min 01/29/2019 11/30/2019 Impaired fasting glucose 02/21/2015 018 Anticoagulated on Coumadin ( home INR testing) 0 05/02/2013 11/30/2019 Overview: Test INR at home every other week. Positive fecal occult blood test 08/23/2012 12/03/2012 Occult GI bleeding 08/13/2012 12/03/2012 Colon polyp 07/26/2010 07/24/2022 Diverticulosis 07/26/2010 01/27/2019 Screen for colon cancer 07/11/2010 12/04/19 13 Postsurgical aortocoronary bypass status 06/22/2 007 01/27/2019 Esophageal reflux 05/19/2005 01/06/2018 documented as of this encounter (statuses as of 12/23/2022) [facility] Narrative* Problem Noted Date Resolved Date CKD (chronic kidney disease) stage 3, GFR 30-59 ml/min 01/29/2019 11/30/2019 Impaired fasting glucose 02/21/2015 018 Anticoagulated on Coumadin ( home INR testing) 0 05/02/2013 11/30/2019 Overview: Test INR at home every other week. Positive fecal occult blood test 08/23/2012 12/03/2012 Occult GI bleeding 08/13/2012 12/03/2012 Colon polyp 07/26/2010 07/24/2022 Diverticulosis 07/26/2010 01/27/2019 Screen for colon cancer 07/11/2010 12/04/19 13 Postsurgical aortocoronary bypass status 06/22/2 007 01/27/2019 Esophageal reflux 05/19/2005 01/06/2018 documented as of this encounter (statuses as of 01/06/2023) [facility]arrative* Problem Noted Date Resolved Date CKD (chronic kidney disease) stage 3, GFR 30-59 ml/min 01/29/2019 11/30/2019 Impaired fasting glucose 02/21/2015 018 Anticoagulated on Coumadin ( home INR testing) 0 05/02/2013 11/30/2019 Overview: Test INR at home every other week. Positive fecal occult blood test 08/23/2012 12/03/2012 Occult GI bleeding 08/13/2012 12/03/2012 Colon polyp 07/26/2010 07/24/2022 Diverticulosis 07/26/2010 01/27/2019 Screen for colon cancer 07/11/2010 12/04/19 13 Postsurgical aortocoronary bypass status 06/22/2 007 01/27/2019 Esophageal reflux 05/19/2005 01/06/2018 documented as of this encounter (statuses as of 01/23/2023) [facility]arrative* Problem Noted Date Resolved Date CKD (chronic kidney disease) stage 3, GFR 30-59 ml/min 01/29/2019 11/30/2019 Impaired fasting glucose 02/21/2015 018 Anticoagulated on Coumadin ( home INR testing) 0 05/02/2013 11/30/2019 Overview: Test INR at home every other week. Positive fecal occult blood test 08/23/2012 12/03/2012 Occult GI bleeding 08/13/2012 12/03/2012 Colon polyp 07/26/2010 07/24/2022 Diverticulosis 07/26/2010 01/27/2019 Screen for colon cancer 07/11/2010 12/04/19 13 Postsurgical aortocoronary bypass status 06/22/2 007 01/27/2019 Esophageal reflux 05/19/2005 01/06/2018 documented as of this encounter (statuses as of 01/28/2023) [facility] Past [facility] Narrative* Problem Noted Date Resolved Date CKD (chronic kidney disease) stage 3, GFR 30-59 ml/min 01/29/2019 11/30/2019 Impaired fasting glucose 02/21/2015 018 Anticoagulated on Coumadin ( home INR testing) 0 05/02/2013 11/30/2019 Overview: Test INR at home every other week. Positive fecal occult blood test 08/23/2012 12/03/2012 Occult GI bleeding 08/13/2012 12/03/2012 Colon polyp 07/26/2010 07/24/2022 Diverticulosis 07/26/2010 01/27/2019 Screen for colon cancer 07/11/2010 12/04/19 13 Postsurgical aortocoronary bypass status 007 01/27/2019 Esophageal reflux 05/19/2005 01/06/2018 documented as of this encounter (statuses as of 02/03/2023) [facility] Narrative* Problem Noted Date Diagnosed Date Resolved Date CKD (chronic kidney disease) stage 3, GFR 30-59 ml/min 01/29/2019 11/30/2019 Impaired fasting glucose 02/21/2015 Anticoagulated on Coumadin ( home INR testing) 05/02/2013 11/30/2019 Overview: Test INR at home every other week. Positive fecal occult blood test 08/23/2012 12/03/2012 Occult GI bleeding 08/13/2012 3 Colon polyp 07/26/2010 07/24/2022 Diverticulosis 07/26/2010 01/27/2019 Screen for colon cancer 07/11/201011/09 Postsurgical aortocoronary bypass status 06/22/2007 01/27/2019 Esophageal reflux 05/19/2005 01/06/2018 documented as of this encounter (statuses as of 02/17/2023) [facility]arrative* Problem Noted Date Diagnosed Date Resolved Date CKD (chronic kidney disease) stage 3, GFR 30-59 ml/min 01/29/2019 11/30/2019 Impaired fasting glucose 02/21/2015 Anticoagulated on Coumadin ( home INR testing) 05/02/2013 11/30/2019 Overview: Test INR at home every other week. Positive fecal occult blood test 08/23/2012 12/03/2012 Occult GI bleeding 08/13/2012 3 Colon polyp 07/26/2010 07/24/2022 Diverticulosis 07/26/2010 01/27/2019 Screen for colon cancer 07/11/201011/09 Postsurgical aortocoronary bypass status 06/22/2007 01/27/2019 Esophageal reflux 05/19/2005 01/06/2018 documented as of this encounter (statuses as of 03/06/2023) [facility]arrative* Problem Noted Date Diagnosed Date Resolved Date CKD (chronic kidney disease) stage 3, GFR 30-59 ml/min 01/29/2019 11/30/2019 Impaired fasting glucose 02/21/2015 Anticoagulated on Coumadin ( home INR testing) 05/02/2013 11/30/2019 Overview: Test INR at home every other week. Positive fecal occult blood test 08/23/2012 12/03/2012 Occult GI bleeding 08/13/2012 3 Colon polyp 07/26/2010 07/24/2022 Diverticulosis 07/26/2010 01/27/2019 Screen for colon cancer 07/11/201011/09 Postsurgical aortocoronary bypass status 06/22/2007 01/27/2019 Esophageal reflux 05/19/2005 01/06/2018 documented as of this encounter (statuses as of 03/17/2023) [facility]arrative* Problem Noted Date Diagnosed Date Resolved Date CKD (chronic kidney disease) stage 3, GFR 30-59 ml/min 01/29/2019 11/30/2019 Impaired fasting glucose 02/21/2015 Anticoagulated on Coumadin ( home INR testing) 05/02/2013 11/30/2019 Overview: Test INR at home every other week. Positive fecal occult blood test 08/23/2012 12/03/2012 Occult GI bleeding 08/13/2012 3 Colon polyp 07/26/2010 07/24/2022 Diverticulosis 07/26/2010 01/27/2019 Screen for colon cancer 07/11/201011/09 Postsurgical aortocoronary bypass status 06/22/2007 01/27/2019 Esophageal reflux 05/19/2005 01/06/2018 documented as of this encounter (statuses as of 03/31/2023) [facility] Narrative* Problem Noted Date Diagnosed Date Resolved Date CKD (chronic kidney disease) stage 3, GFR 30-59 ml/min 01/29/2019 11/30/2019 Impaired fasting glucose 02/21/2015 Anticoagulated on Coumadin ( home INR testing) 05/02/2013 11/30/2019 Overview: Test INR at home every other week. Positive fecal occult blood test 08/23/2012 12/03/2012 Occult GI bleeding 08/13/2012 3 Colon polyp 07/26/2010 07/24/2022 Diverticulosis 07/26/2010 01/27/2019 Screen for colon cancer 07/11/201011/09 Postsurgical aortocoronary bypass status 06/22/2007 01/27/2019 Esophageal reflux 05/19/2005 01/06/2018 documented as of this encounter (statuses as of 04/14/2023) [facility]arrative* Problem Noted Date Diagnosed Date Resolved Date CKD (chronic kidney disease) stage 3, GFR 30-59 ml/min 01/29/2019 11/30/2019 Impaired fasting glucose 02/21/2015 Anticoagulated on Coumadin ( home INR testing) 05/02/2013 11/30/2019 Overview: Test INR at home every other week. Positive fecal occult blood test 08/23/2012 12/03/2012 Occult GI bleeding 08/13/2012 3 Colon polyp 07/26/2010 07/24/2022 Diverticulosis 07/26/2010 01/27/2019 Screen for colon cancer 07/11/201011/09 Postsurgical aortocoronary bypass status 06/22/2007 01/27/2019 Esophageal reflux 05/19/2005 01/06/2018 documented as of this encounter (statuses as of 05/18/2023) [facility]arrative* Problem Noted Date Diagnosed Date Resolved Date CKD (chronic kidney disease) stage 3, GFR 30-59 ml/min 01/29/2019 11/30/2019 Impaired fasting glucose 02/21/2015 Anticoagulated on Coumadin ( home INR testing) 05/02/2013 11/30/2019 Overview: Test INR at home every other week. Positive fecal occult blood test 08/23/2012 12/03/2012 Occult GI bleeding 08/13/2012 3 Colon polyp 07/26/2010 07/24/2022 Diverticulosis 07/26/2010 01/27/2019 Screen for colon cancer 07/11/201011/09 Postsurgical aortocoronary bypass status 06/22/2007 01/27/2019 Esophageal reflux 05/19/2005 01/06/2018 documented as of this encounter (statuses as of 06/09/2023) [facility]* Problem Noted Date Diagnosed Date Resolved Date CKD (chronic kidney disease) stage 3, GFR 30-59 ml/min 01/29/2019 11/30/2019 Impaired fasting glucose 02/21/2015 Anticoagulated on Coumadin ( home INR testing) 05/02/2013 11/30/2019 Overview: Test INR at home every other week. Positive fecal occult blood test 08/23/2012 12/03/2012 Occult GI bleeding 08/13/2012 3 Colon polyp 07/26/2010 07/24/2022 Diverticulosis 07/26/2010 01/27/2019 Screen for colon cancer 07/11/201011/09 Postsurgical aortocoronary bypass status 06/22/2007 01/27/2019 Esophageal reflux 05/19/2005 01/06/2018 documented as of this encounter (statuses as of 06/23/2023) [facility]* Problem Noted Date Diagnosed Date Resolved Date CKD (chronic kidney disease) stage 3, GFR 30-59 ml/min 01/29/2019 11/30/2019 Impaired fasting glucose 02/21/2015 Anticoagulated on Coumadin ( home INR testing) 05/02/2013 11/30/2019 Overview: Test INR at home every other week. Positive fecal occult blood test 08/23/2012 12/03/2012 Occult GI bleeding 08/13/2012 3 Colon polyp 07/26/2010 07/24/2022 Diverticulosis 07/26/2010 01/27/2019 Screen for colon cancer 07/11/201011/09 Postsurgical aortocoronary bypass status 06/22/2007 01/27/2019 Esophageal reflux 05/19/2005 01/06/2018 documented as of this encounter (statuses as of 07/07/2023) [facility]* Problem Noted Date Diagnosed Date Resolved Date CKD (chronic kidney disease) stage 3, GFR 30-59 ml/min 01/29/2019 11/30/2019 Other insomnia 12/02/2018 07/29/2023 Impaired fasting glucose 02/21/2015 Anticoagulated on Coumadin ( home INR testing) 05/02/2013 11/30/2019 Overview: Test INR at home every other week. Positive fecal occult blood test 08/23/2012 12/03/2012 Occult GI bleeding 08/13/2012 3 Colon polyp 07/26/2010 07/24/2022 Diverticulosis 07/26/2010 01/27/2019 Screen for colon cancer 07/11/201011/09 Postsurgical aortocoronary bypass status 06/22/2007 01/27/2019 Esophageal reflux 05/19/2005 01/06/2018 documented as of this encounter (statuses as of 09/15/2023) [facility]* Problem Noted Date Diagnosed Date Resolved Date CKD (chronic kidney disease) stage 3, GFR 30-59 ml/min 01/29/2019 11/30/2019 Other insomnia 12/02/2018 07/29/2023 Impaired fasting glucose 02/21/2015 Anticoagulated on Coumadin ( home INR testing) 05/02/2013 11/30/2019 Overview: Test INR at home every other week. Positive fecal occult blood test 08/23/2012 12/03/2012 Occult GI bleeding 08/13/2012 3 Colon polyp 07/26/2010 07/24/2022 Diverticulosis 07/26/2010 01/27/2019 Screen for colon cancer 07/11/201011/09 Postsurgical aortocoronary bypass status 06/22/2007 01/27/2019 Esophageal reflux 05/19/2005 01/06/2018 documented as of this encounter (statuses as of 09/29/2023) [facility]* Problem Noted Date Diagnosed Date Resolved Date CKD (chronic kidney disease) stage 3, GFR 30-59 ml/min 01/29/2019 11/30/2019 Other insomnia 12/02/2018 07/29/2023 Impaired fasting glucose 02/21/2015 Anticoagulated on Coumadin ( home INR testing) 05/02/2013 11/30/2019 Overview: Test INR at home every other week. Positive fecal occult blood test 08/23/2012 12/03/2012 Occult GI bleeding 08/13/2012 3 Colon polyp 07/26/2010 07/24/2022 Diverticulosis 07/26/2010 01/27/2019 Screen for colon cancer 07/11/201011/09 Postsurgical aortocoronary bypass status 06/22/2007 01/27/2019 Esophageal reflux 05/19/2005 01/06/2018 documented as of this encounter (statuses as of 10/13/2023) [facility]* Problem Noted Date Diagnosed Date Resolved Date CKD (chronic kidney disease) stage 3, GFR 30-59 ml/min 01/29/2019 11/30/2019 Other insomnia 12/02/2018 07/29/2023 Impaired fasting glucose 02/21/2015 Anticoagulated on Coumadin ( home INR testing) 05/02/2013 11/30/2019 Overview: Test INR at home every other week. Positive fecal occult blood test 08/23/2012 12/03/2012 Occult GI bleeding 08/13/2012 3 Colon polyp 07/26/2010 07/24/2022 Diverticulosis 07/26/2010 01/27/2019 Screen for colon cancer 07/11/201011/09 Postsurgical aortocoronary bypass status 06/22/2007 01/27/2019 Esophageal reflux 05/19/2005 01/06/2018 documented as of this encounter (statuses as of 10/27/2023) [facility]* Problem Noted Date Diagnosed Date Resolved Date CKD (chronic kidney disease) stage 3, GFR 30-59 ml/min 01/29/2019 11/30/2019 Other insomnia 12/02/2018 07/29/2023 Impaired fasting glucose 02/21/2015 Anticoagulated on Coumadin ( home INR testing) 05/02/2013 11/30/2019 Overview: Test INR at home every other week. Positive fecal occult blood test 08/23/2012 12/03/2012 Occult GI bleeding 08/13/2012 3 Colon polyp 07/26/2010 07/24/2022 Diverticulosis 07/26/2010 01/27/2019 Screen for colon cancer 07/11/201011/09 Postsurgical aortocoronary bypass status 06/22/2007 01/27/2019 Esophageal reflux 05/19/2005 01/06/2018 documented as of this encounter (statuses as of 11/10/2023) [facility]* Problem Noted Date Diagnosed Date Resolved Date CKD (chronic kidney disease) stage 3, GFR 30-59 ml/min 01/29/2019 11/30/2019 Other insomnia 12/02/2018 07/29/2023 Impaired fasting glucose 02/21/2015 Anticoagulated on Coumadin ( home INR testing) 05/02/2013 11/30/2019 Overview: Test INR at home every other week. Positive fecal occult blood test 08/23/2012 12/03/2012 Occult GI bleeding 08/13/2012 3 Colon polyp 07/26/2010 07/24/2022 Diverticulosis 07/26/2010 01/27/2019 Screen for colon cancer 07/11/201011/09 Postsurgical aortocoronary bypass status 06/22/2007 01/27/2019 Esophageal reflux 05/19/2005 01/06/2018 documented as of this encounter (statuses as of 11/11/2023) [facility]* Problem Noted Date Diagnosed Date Resolved Date CKD (chronic kidney disease) stage 3, GFR 30-59 ml/min 01/29/2019 11/30/2019 Other insomnia 12/02/2018 07/29/2023 Impaired fasting glucose 02/21/2015 Anticoagulated on Coumadin ( home INR testing) 05/02/2013 11/30/2019 Overview: Test INR at home every other week. Positive fecal occult blood test 08/23/2012 12/03/2012 Occult GI bleeding 08/13/2012 3 Colon polyp 07/26/2010 07/24/2022 Diverticulosis 07/26/2010 01/27/2019 Screen for colon cancer 07/11/201011/09 Postsurgical aortocoronary bypass status 06/22/2007 01/27/2019 Esophageal reflux 05/19/2005 01/06/2018 documented as of this encounter (statuses as of 11/24/2023) [facility]* Problem Noted Date Diagnosed Date Resolved Date CKD (chronic kidney disease) stage 3, GFR 30-59 ml/min 01/29/2019 11/30/2019 Other insomnia 12/02/2018 07/29/2023 Impaired fasting glucose 02/21/2015 Anticoagulated on Coumadin ( home INR testing) 05/02/2013 11/30/2019 Overview: Test INR at home every other week. Positive fecal occult blood test 08/23/2012 12/03/2012 Occult GI bleeding 08/13/2012 3 Colon polyp 07/26/2010 07/24/2022 Diverticulosis 07/26/2010 01/27/2019 Screen for colon cancer 07/11/201011/09 Postsurgical aortocoronary bypass status 06/22/2007 01/27/2019 Esophageal reflux 05/19/2005 01/06/2018 documented as of this encounter (statuses as of 11/13/2023) [facility] App[facility]ment Date:12/30/2021 02:45:00 PM Scheduled Provider: Location:[facility] Appointment Type:CV OV Appointment Date:12/30/2021 02:45:00 PM Scheduled Provider: Location:[facility] Appointment Type:CV Office Procedure ICD Appointment Date:04/03/2022 09:30:00 AM Scheduled Provider: Location:[facility] Appointment Type:CV Remote Procedure Future Scheduled Tests Laboratory* Basic Metabolic Panel 10/14/21 * Basic Metabolic Panel 09/23/21 * Complete Blood Count 09/23/21 [facility] evaluation + Plan note Future Appointments Appointment Date:12/30/2021 02:45:00 PM Scheduled Provider: Location:[facility] Appointment Type:CV OV Appointment Date:12/30/2021 02:45:00 PM Scheduled Provider: Location:[facility] Appointment Type:CV Office Procedure ICD Appointment Date:04/03/2022 09:30:00 AM Scheduled Provider: Location:[facility] Appointment Type:CV Remote Procedure Future Scheduled Tests Laboratory* Basic Metabolic Panel 10/14/21 * Basic Metabolic Panel 10/24/21 * Basic Metabolic Panel 09/23/21 * N-Terminal proBNP 10/24/21 * Complete Blood Count 09/23/21 [facility] evaluation + Plan note Future Appointments Appointment Date:12/16/2022 10:00:00 AM Scheduled Provider: Location:[facility] Appointment Type:CV Procedure - Echo (Adult) Appointment Date:12/29/2022 03:15:00 PM Scheduled Provider: Location:[facility] Appointment Type:CV OV Appointment Date:02/13/2023 01:30:00 PM Scheduled Provider: Location:[facility] Appointment Type:CV Office Procedure ICD Appointment Date:05/15/2023 08:15:00 AM Scheduled Provider: Location:[facility] Appointment Type:CV Remote Procedure [facility] Evaluation + Plan note Future Appointments Appointment Date:12/29/2022 03:15:00 PM Scheduled Provider: Location:[facility] Appointment Type:CV OV Appointment Date:02/13/2023 01:30:00 PM Scheduled Provider: Location:[facility] Appointment Type:CV Office Procedure ICD Appointment Date:05/15/2023 08:15:00 AM Scheduled Provider: Location:[facility] Appointment Type:CV Remote Procedure [facility] Evaluation + Plan note Future Appointments Appointment Date:12/06/2024 03:00:00 PM Scheduled Provider:JAVIER GANT Location:[facility] Appointment Type:CV OV Appointment Date:12/19/2024 05:45:00 PM Scheduled Provider: Location:[facility] Appointment Type:CV Remote Procedure [facility] Evaluation + Plan note Future Appointments Appointment Date:01/13/2025 03:45:00 PM Scheduled Provider:JAVIER TOUSSAINT Location:[facility] Appointment Type:CV OV Appointment Date:01/25/2025 10:30:00 AM Scheduled Provider:HARRIS UPTON Location:[facility] Appointment Type:CV OV Hospital Follow Up Appointment Date:06/06/2025 02:00:00 PM Scheduled Provider:JAVIER GANT Location:[facility] Appointment Type:CV OV [facility] evaluation + Plan note Future Appointments Appointment Date:02/24/2025 09:00:00 AM Scheduled Provider: Location:Echo Appointment Type:CV GERARDO w/o Anesthesia Appointment Date:02/24/2025 10:30:00 AM Scheduled Provider: Location:Heart Lab Appointment Type:EP ICD Replacement Appointment Date:03/09/2025 01:00:00 PM Scheduled Provider: Location:[facility] Appointment Type:CV Incision Check Appointment Date:06/01/2025 01:30:00 PM Scheduled Provider: Location:[facility] Appointment Type:CV Office Procedure ICD Appointment Date:06/06/2025 02:00:00 PM Scheduled Provider:JAVIER GANT Location:[facility] Appointment Type:CV OV [facility] evaluation + Plan note Future Appointments Appointment Date:03/09/2025 01:00:00 PM Scheduled Provider: Location:[facility] Appointment Type:CV Incision Check Appointment Date:06/01/2025 01:30:00 PM Scheduled Provider: Location:[facility] Appointment Type:CV Office Procedure ICD Appointment Date:06/06/2025 02:00:00 PM Scheduled Provider:JAVIER GANT Location:[facility] Appointment Type:CV OV Appointment Date:09/04/2025 05:15:00 PM Scheduled Provider: Location:[facility] Appointment Type:CV Remote Procedure [facility] Evaluation note* Diagnosis Chronic systolic heart failure (HCC) Chronic systolic [facility] Anticoagulated on Coumadin ( home INR testing) Encounter for therapeutic drug monitoring Irritable bowel syndrome, unspecified type [facility] 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 Long-term (current) use of anticoagulants Permanent atrial fibrillation (HCC) Atrial fibrillation [facility] Diagnosis Acute gout of right foot, unspecified cause [facility] Diagnosis Atherosclerosis of [place] coronary artery of [place] heart without angina pectoris Anticoagulated on Coumadin ( home INR testing) Encounter for therapeutic drug monitoring [facility] Diagnosis penitentiary (current) use of anticoagulants- Primary Long-term (current) use of anticoagulants Permanent atrial fibrillation (HCC) Atrial fibrillation [facility] Diagnosis Irritable bowel syndrome, unspecified type [facility]* Diagnosis Routine medical exam- Primary Routine general medical examination at a health care facility Asthma, moderate persistent, well-controlled Unspecified asthma Pure hypercholesterolemia Byers's esophagus with dysplasia Byers's esophagus Interstitial lung disease (HCC) Postinflammatory pulmonary fibrosis Atherosclerosis of [place] coronary artery of [place] heart without angina pectoris Controlled type 2 diabetes mellitus with stage 3 chronic kidney disease, without long-term current use of insulin (HCC) Chronic systolic heart failure (HCC) Chronic systolic heart failure PAD (peripheral artery disease) (HCC) Peripheral vascular disease, unspecified Need for COVID-19 vaccine Left knee pain, unspecified chronicity [facility] Diagnosis Acute gout of right foot, unspecified cause [facility] Diagnosis PAD (peripheral artery disease) (HCC)- Primary Peripheral vascular disease, unspecified [facility]* Diagnosis Acute idiopathic gout of foot, unspecified laterality- Primary Interstitial lung disease (HCC) 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, without long-term current use of insulin (HCC) Thrombocytopenia (HCC) Thrombocytopenia, unspecified Chronic systolic heart failure (HCC) Chronic systolic heart failure Ventricular tachycardia (HCC) Paroxysmal ventricular tachycardia [facility] 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 Long-term (current) use of anticoagulants Permanent atrial fibrillation (HCC) Atrial fibrillation [facility] Diagnosis Irritable bowel syndrome, unspecified type [facility]* Diagnosis Atherosclerosis of [place] coronary artery of [place] heart without angina pectoris Asthma, moderate persistent, well-controlled Unspecified asthma [facility] noteNo assessment information availableWHolzer [facility] System Work Phone: Evaluation note* Diagnosis Sinobronchitis- Primary Unspecified sinusitis (chronic) Irritable bowel syndrome, unspecified type Asthma, moderate persistent, well-controlled Unspecified asthma [facility]* 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 Long-term (current) use of anticoagulants Permanent atrial fibrillation (HCC) Atrial fibrillation Anticoagulated on Coumadin ( home INR testing) Encounter for therapeutic drug monitoring [facility]* Diagnosis Asthma, moderate persistent, well-controlled Unspecified asthma [facility]* 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 Long-term (current) use of anticoagulants Permanent atrial fibrillation (HCC) Atrial fibrillation [facility] Diagnosis Controlled type 2 diabetes mellitus with stage 3 chronic kidney disease, without long-term current use of insulin (HCC)- Primary Chronic systolic heart failure (HCC) Chronic systolic heart failure Atherosclerosis of [place] coronary artery of [place] heart without angina pectoris Pure hypercholesterolemia Essential hypertension Unspecified essential hypertension Asthma, moderate persistent, well-controlled Unspecified asthma Interstitial lung disease (HCC) Postinflammatory pulmonary fibrosis Skin tear of left upper arm without complication, initial encounter Screening for depression Encounter for screening examination for other mental health and behavioral disorders documented [facility]* Diagnosis Asthma, moderate persistent, well-controlled Unspecified asthma documented [facility]* 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 Long-term (current) use of anticoagulants Permanent atrial fibrillation (HCC) Atrial fibrillation [facility]* Diagnosis Foot pain, left Pain in limb [facility]* Diagnosis Cough [facility]* Diagnosis penitentiary (current) use of anticoagulants- Primary Long-term (current) use of anticoagulants Permanent atrial fibrillation (HCC) Atrial fibrillation [facility]* Diagnosis Acute cough [facility]* Diagnosis Routine medical exam- Primary Routine general medical examination at a health care facility Pure hypercholesterolemia Controlled type 2 diabetes mellitus with stage 3 chronic kidney disease, without long-term current use of insulin (HCC) Chronic systolic heart failure (HCC) Chronic systolic heart failure Asthma, moderate persistent, well-controlled Unspecified asthma Byers's esophagus with dysplasia Byers's esophagus Irritable bowel syndrome, unspecified type Anticoagulated on Coumadin ( home INR testing) Encounter for therapeutic drug monitoring Atherosclerosis of [place] coronary artery of [place] heart without angina pectoris Essential hypertension Unspecified essential hypertension Acute cough Chronic ankle pain, unspecified laterality PVD (peripheral vascular disease) with claudication (HCC) Peripheral vascular disease, unspecified Thrombocytopenia (HCC) Thrombocytopenia, unspecified Ventricular tachycardia (HCC) Paroxysmal ventricular tachycardia Interstitial lung disease (HCC) Postinflammatory pulmonary fibrosis [facility]* Diagnosis Acute gout of right foot, unspecified cause [facility]* Diagnosis Controlled type 2 diabetes mellitus with stage 3 chronic kidney disease, without long-term current use of insulin (HCC)- Primary [facility]* Diagnosis Lumbosacral radiculopathy- Primary Thoracic or lumbosacral neuritis or radiculitis, unspecified Encounter for immunization Need for other specified prophylactic vaccination against single bacterial disease Asthma, moderate persistent, well-controlled Unspecified asthma Atherosclerosis of [place] coronary artery of [place] heart without angina pectoris Controlled type 2 diabetes mellitus with stage 3 chronic kidney disease, without long-term current use of insulin (HCC) Chronic systolic heart failure (HCC) Chronic systolic heart failure Anemia due to stage 3b chronic kidney disease (HCC) (HCC) Irritable bowel syndrome, unspecified type Gout of foot, unspecified cause, unspecified chronicity, unspecified laterality [facility]* Diagnosis Irritable bowel syndrome, unspecified type [facility]* Diagnosis Permanent atrial fibrillation (HCC)- Primary Atrial fibrillation Chronic systolic heart failure (HCC) Chronic systolic heart failure Interstitial lung disease (HCC) 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, without long-term current use of insulin (HCC) Essential hypertension Unspecified essential hypertension documented in this encounter [facility] course Narrative No data available for this section [facility] Hospital Discharge instructions No data available for this section [facility] Progress note No data available for this section [facility] Reason for referral (narrative)* Outpatient Procedure (Routine) - Pending Review Specialty Diagnoses / Procedures Referred By Cristobal osborne Referred To [facility] Diagnoses PAD (peripheral artery disease) (HCC) Procedures PVR ANK PRESS [facility] NON-INVAS PHYSIOLOGIC STD EXTREMITY ART 2 LEVEL George Mata MD [address] [place] [address] [facility] [place] [id number] Referral ID Status Reason Start Date Expiration Date Visits Requested Visits Authorized [id number] Pending Review Auto-Generat ed Referral 07/24/2023 1 1 [facility] for referral (narrative)* Diagnostic Procedure Only (Urgent) - Closed Specialty Diagnoses / Procedures Referred By Cristobal osborne Referred To Contact XR IMAGING Diagnoses Foot pain, left Procedures XR FOOT GENERAL 3V AP/LAT/OBL LEFT X-RAY FOOT MINIMUM 3 VIEWS Mai Lutz, RAFFAELE [address] [place] [address] [place] [address] Referral ID Status Reason Start Date Expiration Date V isits Requested Visits Authorized [id number] Closed Auto-Generate d Referral 07/12/2021 08/11/2022 1 [facility]No reason for referral information availableWHolzer Health System Work Phone: Reason for visit Narrative* Diagnostic Procedure Only (Routine) - Closed Specialty Diagnoses / Procedures Referred By Contac t Referred To Contact [facility] Diagnoses Chronic systolic heart failure (HCC) Procedures ECHO ECHO TTHRC R-T 2D W/WOM-MODE COMPL SPEC&COLR D Charissa Chowdhury, DIRECTOR OF ROOMS.TURBOGENERATOR OPERATOR [address] [id number] [facility] [place] [address] [place] [address] Referral ID Status Reason Start Date Expiration Date Visits Re quested Visits Authorized [id number] Closed 10/28/2021 08/09/2022 1 1 [facility]* Diagnostic Procedure Only (Urgent) - Closed Specialty Diagnoses / Procedures Referred By Contac t Referred To Contact XR IMAGING Diagnoses Foot pain, left Procedures XR FOOT GENERAL 3V AP/LAT/OBL LEFT X-RAY FOOT MINIMUM 3 VIEWS Mai Lutz, DIRECTOR OF ROOMS.TURBOGENERATOR OPERATOR [address] [place] [address] [facility] [place] [id number] Referral ID Status Reason Start Date Expiration Date V isits Requested Visits Authorized [id number] Closed Auto-Generate d Referral 07/12/2021 08/11/2022 1 1 [facility] Medications Administered Section Inactive Administered Medications - up to 3 most recent administrations Medication Order MAR Action Action Date Dose Rate Site perflutren lipid microspheres 1.3 mL in NaCl (PF) 0.9% 10 mL injection (DEFINITY) INTRAVENOUS, DIRECTED NEEDED, 1 dose, Starting on Thu10/23/21 at 1724, Until Thu11/06/21 at 1525, Per Protocol - for use during ECHO procedure only, If no IV access, insert saline lock prior to administering contrast. Discontinue saline lock post exam. If patient has central line or IVAD, may access for administration according to line specific nursing protocol. Once exam is complete, flush line and de-access per line specific nursing protocol.Dilute 1.3 ml of Definity with 8.7 ml of preservative-free saline. Given 11/06/2021 3:25 PM EDT 3 mL Arm, Right Reason for Referral Specialty Diagnoses / Procedures Referred By Contac t Referred To Contact Nephrology Diagnoses Controlled type 2 diabetes mellitus with stage 3 chronic kidney disease, without long-term current use of insulin (HCC) Procedures CONSULT TO NEPHROLOGY George Mata MD [address] [place] [address] Referral ID Status Reason Start Date Expiration Date Visits Requested Visits Authorized [id number] Authorized PCP Requested Referral 09/14/2024 09/13/2025 1 1 Specialty Diagnoses / Procedures Referred By Contac t Referred To Contact Podiatry Diagnoses Controlled type 2 diabetes mellitus with stage 3 chronic kidney disease, without long-term current use of insulin (HCC) Chronic ankle pain, unspecified laterality Procedures CONSULT TO PODIATRY Goerge Mata MD [address] [place] [address] Referral ID Status Reason Start Date Expiration Date Visits Requested Visits Authorized [id number] Authorized PCP Requested Referral 08/09/2025 1 1 Specialty Diagnoses / Procedures Referred By Contac t Referred To Contact Vascular Medicine Diagnoses PAD (peripheral artery disease) ([facility]) Procedures CONSULT TO VASCULAR MEDICINE OFFICE/OUTPATIENT [facility] 60-74 MINUTES George Mata MD [address] [place] [address] Referral ID Status Reason Start Date Expiration Date Visits Requested Visits Authorized [id number] Pending Review PCP Requested Referral 08/22/2022 08/22/2023 1 1 Chief Complaint and Reason for Visit Chief Complaint PERIPHERAL VASCULAR DISEASE Chief Complaint LUMBAR RAD Chief Complaint Admit Date ATHEROSLEROSIS DENAE/DBI October 17, 2024 12:40pm Family History No Family History Records Found Relationship Condition Age at Onset Recorded Date/T deidra Unknown Family History?Heart Disease Unknown December 13, 2017 9:05am Family History?Heart Disease Unknown December 13, 2017 9:05am Family History?Heart Disease Unknown March 22, 2019 9:53am Relationship Condition Age at Onset Recorded Date/T deidra Unknown Family History?Heart Disease Unknown December 13, 2017 10:05am Family History?Heart Disease Unknown December 13, 2017 10:05am Family History?Heart Disease Unknown March 22, 2019 10:53am Advance Directives No Advanced Directives Records Found Advance Directive Response Recorded Date/ Time Living Will Yes May 02, 2021 7:28am Power of Grinder Yes April 7:28am Advance Directive Response Recorded Date/ Time Living Will Yes May 02, 2021 8:28am Power of Grinder Yes April 8:28am Summary Purpose Additional Source Comments Source Comments (unrecognize d section and content) In the event this informatio n is protected by the Federal Confidentiality of Alcohol and Drug Abuse Patient Records regulations: The Federal rules restrict any use of the information to criminally investigate or prosecute any alcohol or drug abuse patient.[facility] the event this information is protected by the Federal Confidentiality of Alcohol and Drug Abuse Patient Records regulations: The Federal rules restrict any use of the information to criminally investigate or prosecute any alcohol or drug abuse patient.[facility] HospitalIn the event this information is protected by the Federal Confidentiality of Alcohol and Drug Abuse Patient Records regulations: The Federal rules restrict any use of the information to criminally investigate or prosecute any alcohol or drug abuse patient.[facility] HospitalIn the event this information is protected by the Federal Confidentiality of Alcohol and Drug Abuse Patient Records regulations: The Federal rules restrict any use of the information to criminally investigate or prosecute any alcohol or drug abuse patient.[facility] HospitalIn the event this information is protected by the Federal Confidentiality of Alcohol and Drug Abuse Patient Records regulations: The Federal rules restrict any use of the information to criminally investigate or prosecute any alcohol or drug abuse patient.[facility] HospitalIn the event this information is protected by the Federal Confidentiality of Alcohol and Drug Abuse Patient Records regulations: The Federal rules restrict any use of the information to criminally investigate or prosecute any alcohol or drug abuse patient.[facility] HospitalIn the event this information is protected by the Federal Confidentiality of Alcohol and Drug Abuse Patient Records regulations: The Federal rules restrict any use of the information to criminally investigate or prosecute any alcohol or drug abuse patient.[facility] HospitalIn the event this information is protected by the Federal Confidentiality of Alcohol and Drug Abuse Patient Records regulations: The Federal rules restrict any use of the information to criminally investigate or prosecute any alcohol or drug abuse patient.[facility] HospitalIn the event this information is protected by the Federal Confidentiality of Alcohol and Drug Abuse Patient Records regulations: The Federal rules restrict any use of the information to criminally investigate or prosecute any alcohol or drug abuse patient.[facility] HospitalIn the event this information is protected by the Federal Confidentiality of Alcohol and Drug Abuse Patient Records regulations: The Federal rules restrict any use of the information to criminally investigate or prosecute any alcohol or drug abuse patient.[facility] HospitalIn the event this information is protected by the Federal Confidentiality of Alcohol and Drug Abuse Patient Records regulations: The Federal rules restrict any use of the information to criminally investigate or prosecute any alcohol or drug abuse patient.[facility] HospitalIn the event this information is protected by the Federal Confidentiality of Alcohol and Drug Abuse Patient Records regulations: The Federal rules restrict any use of the information to criminally investigate or prosecute any alcohol or drug abuse patient.[facility] HospitalIn the event this information is protected by the Federal Confidentiality of Alcohol and Drug Abuse Patient Records regulations: The Federal rules restrict any use of the information to criminally investigate or prosecute any alcohol or drug abuse patient.[facility] HospitalIn the event this information is protected by the Federal Confidentiality of Alcohol and Drug Abuse Patient Records regulations: The Federal rules restrict any use of the information to criminally investigate or prosecute any alcohol or drug abuse patient.[facility] HospitalIn the event this information is protected by the Federal Confidentiality of Alcohol and Drug Abuse Patient Records regulations: The Federal rules restrict any use of the information to criminally investigate or prosecute any alcohol or drug abuse patient.[facility] HospitalIn the event this information is protected by the Federal Confidentiality of Alcohol and Drug Abuse Patient Records regulations: The Federal rules restrict any use of the information to criminally investigate or prosecute any alcohol or drug abuse patient.[facility] HospitalIn the event this information is protected by the Federal Confidentiality of Alcohol and Drug Abuse Patient Records regulations: The Federal rules restrict any use of the information to criminally investigate or prosecute any alcohol or drug abuse patient.[facility] HospitalIn the event this information is protected by the Federal Confidentiality of Alcohol and Drug Abuse Patient Records regulations: The Federal rules restrict any use of the information to criminally investigate or prosecute any alcohol or drug abuse patient.[facility] HospitalIn the event this information is protected by the Federal Confidentiality of Alcohol and Drug Abuse Patient Records regulations: The Federal rules restrict any use of the information to criminally investigate or prosecute any alcohol or drug abuse patient.[facility] HospitalIn the event this information is protected by the Federal Confidentiality of Alcohol and Drug Abuse Patient Records regulations: The Federal rules restrict any use of the information to criminally investigate or prosecute any alcohol or drug abuse patient.[facility] HospitalIn the event this information is protected by the Federal Confidentiality of Alcohol and Drug Abuse Patient Records regulations: The Federal rules restrict any use of the information to criminally investigate or prosecute any alcohol or drug abuse patient.[facility] HospitalIn the event this information is protected by the Federal Confidentiality of Alcohol and Drug Abuse Patient Records regulations: The Federal rules restrict any use of the information to criminally investigate or prosecute any alcohol or drug abuse patient.[facility] HospitalIn the event this information is protected by the Federal Confidentiality of Alcohol and Drug Abuse Patient Records regulations: The Federal rules restrict any use of the information to criminally investigate or prosecute any alcohol or drug abuse patient.[facility] HospitalIn the event this information is protected by the Federal Confidentiality of Alcohol and Drug Abuse Patient Records regulations: The Federal rules restrict any use of the information to criminally investigate or prosecute any alcohol or drug abuse patient.[facility] HospitalIn the event this information is protected by the Federal Confidentiality of Alcohol and Drug Abuse Patient Records regulations: The Federal rules restrict any use of the information to criminally investigate or prosecute any alcohol or drug abuse patient.[facility] HospitalIn the event this information is protected by the Federal Confidentiality of Alcohol and Drug Abuse Patient Records regulations: The Federal rules restrict any use of the information to criminally investigate or prosecute any alcohol or drug abuse patient.[facility] HospitalIn the event this information is protected by the Federal Confidentiality of Alcohol and Drug Abuse Patient Records regulations: The Federal rules restrict any use of the information to criminally investigate or prosecute any alcohol or drug abuse patient.[facility] HospitalIn the event this information is protected by the Federal Confidentiality of Alcohol and Drug Abuse Patient Records regulations: The Federal rules restrict any use of the information to criminally investigate or prosecute any alcohol or drug abuse patient.[facility] HospitalIn the event this information is protected by the Federal Confidentiality of Alcohol and Drug Abuse Patient Records regulations: The Federal rules restrict any use of the information to criminally investigate or prosecute any alcohol or drug abuse patient.[facility] HospitalIn the event this information is protected by the Federal Confidentiality of Alcohol and Drug Abuse Patient Records regulations: The Federal rules restrict any use of the information to criminally investigate or prosecute any alcohol or drug abuse patient.[facility] HospitalIn the event this information is protected by the Federal Confidentiality of Alcohol and Drug Abuse Patient Records regulations: The Federal rules restrict any use of the information to criminally investigate or prosecute any alcohol or drug abuse patient.[facility] HospitalIn the event this information is protected by the Federal Confidentiality of Alcohol and Drug Abuse Patient Records regulations: The Federal rules restrict any use of the information to criminally investigate or prosecute any alcohol or drug abuse patient.[facility] HospitalIn the event this information is protected by the Federal Confidentiality of Alcohol and Drug Abuse Patient Records regulations: The Federal rules restrict any use of the information to criminally investigate or prosecute any alcohol or drug abuse patient.[facility] HospitalIn the event this information is protected by the Federal Confidentiality of Alcohol and Drug Abuse Patient Records regulations: The Federal rules restrict any use of the information to criminally investigate or prosecute any alcohol or drug abuse patient.[facility] HospitalIn the event this information is protected by the Federal Confidentiality of Alcohol and Drug Abuse Patient Records regulations: The Federal rules restrict any use of the information to criminally investigate or prosecute any alcohol or drug abuse patient.[facility] HospitalIn the event this information is protected by the Federal Confidentiality of Alcohol and Drug Abuse Patient Records regulations: The Federal rules restrict any use of the information to criminally investigate or prosecute any alcohol or drug abuse patient.[facility] HospitalIn the event this information is protected by the Federal Confidentiality of Alcohol and Drug Abuse Patient Records regulations: The Federal rules restrict any use of the information to criminally investigate or prosecute any alcohol or drug abuse patient.[facility] HospitalIn the event this information is protected by the Federal Confidentiality of Alcohol and Drug Abuse Patient Records regulations: The Federal rules restrict any use of the information to criminally investigate or prosecute any alcohol or drug abuse patient.[facility] HospitalIn the event this information is protected by the Federal Confidentiality of Alcohol and Drug Abuse Patient Records regulations: The Federal rules restrict any use of the information to criminally investigate or prosecute any alcohol or drug abuse patient.[facility] HospitalIn the event this information is protected by the Federal Confidentiality of Alcohol and Drug Abuse Patient Records regulations: The Federal rules restrict any use of the information to criminally investigate or prosecute any alcohol or drug abuse patient.[facility] HospitalIn the event this information is protected by the Federal Confidentiality of Alcohol and Drug Abuse Patient Records regulations: The Federal rules restrict any use of the information to criminally investigate or prosecute any alcohol or drug abuse patient.[facility] HospitalIn the event this information is protected by the Federal Confidentiality of Alcohol and Drug Abuse Patient Records regulations: The Federal rules restrict any use of the information to criminally investigate or prosecute any alcohol or drug abuse patient.[facility] HospitalIn the event this information is protected by the Federal Confidentiality of Alcohol and Drug Abuse Patient Records regulations: The Federal rules restrict any use of the information to criminally investigate or prosecute any alcohol or drug abuse patient.[facility] HospitalIn the event this information is protected by the Federal Confidentiality of Alcohol and Drug Abuse Patient Records regulations: The Federal rules restrict any use of the information to criminally investigate or prosecute any alcohol or drug abuse patient.[facility] HospitalIn the event this information is protected by the Federal Confidentiality of Alcohol and Drug Abuse Patient Records regulations: The Federal rules restrict any use of the information to criminally investigate or prosecute any alcohol or drug abuse patient.[facility] HospitalIn the event this information is protected by the Federal Confidentiality of Alcohol and Drug Abuse Patient Records regulations: The Federal rules restrict any use of the information to criminally investigate or prosecute any alcohol or drug abuse patient.[facility] HospitalIn the event this information is protected by the Federal Confidentiality of Alcohol and Drug Abuse Patient Records regulations: The Federal rules restrict any use of the information to criminally investigate or prosecute any alcohol or drug abuse patient.[facility] HospitalIn the event this information is protected by the Federal Confidentiality of Alcohol and Drug Abuse Patient Records regulations: The Federal rules restrict any use of the information to criminally investigate or prosecute any alcohol or drug abuse patient.[facility] HospitalIn the event this information is protected by the Federal Confidentiality of Alcohol and Drug Abuse Patient Records regulations: The Federal rules restrict any use of the information to criminally investigate or prosecute any alcohol or drug abuse patient.[facility] HospitalIn the event this information is protected by the Federal Confidentiality of Alcohol and Drug Abuse Patient Records regulations: The Federal rules restrict any use of the information to criminally investigate or prosecute any alcohol or drug abuse patient.[facility] HospitalIn the event this information is protected by the Federal Confidentiality of Alcohol and Drug Abuse Patient Records regulations: The Federal rules restrict any use of the information to criminally investigate or prosecute any alcohol or drug abuse patient.[facility] HospitalIn the event this information is protected by the Federal Confidentiality of Alcohol and Drug Abuse Patient Records regulations: The Federal rules restrict any use of the information to criminally investigate or prosecute any alcohol or drug abuse patient.[facility] HospitalIn the event this information is protected by the Federal Confidentiality of Alcohol and Drug Abuse Patient Records regulations: The Federal rules restrict any use of the information to criminally investigate or prosecute any alcohol or drug abuse patient.[facility] HospitalIn the event this information is protected by the Federal Confidentiality of Alcohol and Drug Abuse Patient Records regulations: The Federal rules restrict any use of the information to criminally investigate or prosecute any alcohol or drug abuse patient.[facility] HospitalIn the event this information is protected by the Federal Confidentiality of Alcohol and Drug Abuse Patient Records regulations: The Federal rules restrict any use of the information to criminally investigate or prosecute any alcohol or drug abuse patient.[facility] HospitalIn the event this information is protected by the Federal Confidentiality of Alcohol and Drug Abuse Patient Records regulations: The Federal rules restrict any use of the information to criminally investigate or prosecute any alcohol or drug abuse patient.[facility] HospitalIn the event this information is protected by the Federal Confidentiality of Alcohol and Drug Abuse Patient Records regulations: The Federal rules restrict any use of the information to criminally investigate or prosecute any alcohol or drug abuse patient.[facility] HospitalIn the event this information is protected by the Federal Confidentiality of Alcohol and Drug Abuse Patient Records regulations: The Federal rules restrict any use of the information to criminally investigate or prosecute any alcohol or drug abuse patient.[facility] HospitalIn the event this information is protected by the Federal Confidentiality of Alcohol and Drug Abuse Patient Records regulations: The Federal rules restrict any use of the information to criminally investigate or prosecute any alcohol or drug abuse patient.[facility] HospitalIn the event this information is protected by the Federal Confidentiality of Alcohol and Drug Abuse Patient Records regulations: The Federal rules restrict any use of the information to criminally investigate or prosecute any alcohol or drug abuse patient.[facility] HospitalIn the event this information is protected by the Federal Confidentiality of Alcohol and Drug Abuse Patient Records regulations: The Federal rules restrict any use of the information to criminally investigate or prosecute any alcohol or drug abuse patient.[facility] HospitalIn the event this information is protected by the Federal Confidentiality of Alcohol and Drug Abuse Patient Records regulations: The Federal rules restrict any use of the information to criminally investigate or prosecute any alcohol or drug abuse patient.[facility] HospitalIn the event this information is protected by the Federal Confidentiality of Alcohol and Drug Abuse Patient Records regulations: The Federal rules restrict any use of the information to criminally investigate or prosecute any alcohol or drug abuse patient.[facility] HospitalIn the event this information is protected by the Federal Confidentiality of Alcohol and Drug Abuse Patient Records regulations: The Federal rules restrict any use of the information to criminally investigate or prosecute any alcohol or drug abuse patient.[facility] HospitalIn the event this information is protected by the Federal Confidentiality of Alcohol and Drug Abuse Patient Records regulations: The Federal rules restrict any use of the information to criminally investigate or prosecute any alcohol or drug abuse patient.[facility] HospitalIn the event this information is protected by the Federal Confidentiality of Alcohol and Drug Abuse Patient Records regulations: The Federal rules restrict any use of the information to criminally investigate or prosecute any alcohol or drug abuse patient.[facility] HospitalIn the event this information is protected by the Federal Confidentiality of Alcohol and Drug Abuse Patient Records regulations: The Federal rules restrict any use of the information to criminally investigate or prosecute any alcohol or drug abuse patient.[facility] HospitalIn the event this information is protected by the Federal Confidentiality of Alcohol and Drug Abuse Patient Records regulations: The Federal rules restrict any use of the information to criminally investigate or prosecute any alcohol or drug abuse patient.[facility] HospitalIn the event this information is protected by the Federal Confidentiality of Alcohol and Drug Abuse Patient Records regulations: The Federal rules restrict any use of the information to criminally investigate or prosecute any alcohol or drug abuse patient.[facility] HospitalIn the event this information is protected by the Federal Confidentiality of Alcohol and Drug Abuse Patient Records regulations: The Federal rules restrict any use of the information to criminally investigate or prosecute any alcohol or drug abuse patient.[facility] HospitalIn the event this information is protected by the Federal Confidentiality of Alcohol and Drug Abuse Patient Records regulations: The Federal rules restrict any use of the information to criminally investigate or prosecute any alcohol or drug abuse patient.[facility] HospitalIn the event this information is protected by the Federal Confidentiality of Alcohol and Drug Abuse Patient Records regulations: The Federal rules restrict any use of the information to criminally investigate or prosecute any alcohol or drug abuse patient.[facility] HospitalIn the event this information is protected by the Federal Confidentiality of Alcohol and Drug Abuse Patient Records regulations: The Federal rules restrict any use of the information to criminally investigate or prosecute any alcohol or drug abuse patient.[facility] HospitalIn the event this information is protected by the Federal Confidentiality of Alcohol and Drug Abuse Patient Records regulations: The Federal rules restrict any use of the information to criminally investigate or prosecute any alcohol or drug abuse patient.[facility] HospitalIn the event this information is protected by the Federal Confidentiality of Alcohol and Drug Abuse Patient Records regulations: The Federal rules restrict any use of the information to criminally investigate or prosecute any alcohol or drug abuse patient.[facility] HospitalIn the event this information is protected by the Federal Confidentiality of Alcohol and Drug Abuse Patient Records regulations: The Federal rules restrict any use of the information to criminally investigate or prosecute any alcohol or drug abuse patient.[facility] HospitalIn the event this information is protected by the Federal Confidentiality of Alcohol and Drug Abuse Patient Records regulations: The Federal rules restrict any use of the information to criminally investigate or prosecute any alcohol or drug abuse patient.[facility] HospitalIn the event this information is protected by the Federal Confidentiality of Alcohol and Drug Abuse Patient Records regulations: The Federal rules restrict any use of the information to criminally investigate or prosecute any alcohol or drug abuse patient.[facility] HospitalIn the event this information is protected by the Federal Confidentiality of Alcohol and Drug Abuse Patient Records regulations: The Federal rules restrict any use of the information to criminally investigate or prosecute any alcohol or drug abuse patient.[facility] HospitalIn the event this information is protected by the Federal Confidentiality of Alcohol and Drug Abuse Patient Records regulations: The Federal rules restrict any use of the information to criminally investigate or prosecute any alcohol or drug abuse patient.[facility] HospitalIn the event this information is protected by the Federal Confidentiality of Alcohol and Drug Abuse Patient Records regulations: The Federal rules restrict any use of the information to criminally investigate or prosecute any alcohol or drug abuse patient.[facility] HospitalIn the event this information is protected by the Federal Confidentiality of Alcohol and Drug Abuse Patient Records regulations: The Federal rules restrict any use of the information to criminally investigate or prosecute any alcohol or drug abuse patient.[facility] HospitalIn the event this information is protected by the Federal Confidentiality of Alcohol and Drug Abuse Patient Records regulations: The Federal rules restrict any use of the information to criminally investigate or prosecute any alcohol or drug abuse patient.[facility] HospitalIn the event this information is protected by the Federal Confidentiality of Alcohol and Drug Abuse Patient Records regulations: The Federal rules restrict any use of the information to criminally investigate or prosecute any alcohol or drug abuse patient.[facility] HospitalIn the event this information is protected by the Federal Confidentiality of Alcohol and Drug Abuse Patient Records regulations: The Federal rules restrict any use of the information to criminally investigate or prosecute any alcohol or drug abuse patient.[facility] HospitalIn the event this information is protected by the Federal Confidentiality of Alcohol and Drug Abuse Patient Records regulations: The Federal rules restrict any use of the information to criminally investigate or prosecute any alcohol or drug abuse patient.[facility] HospitalIn the event this information is protected by the Federal Confidentiality of Alcohol and Drug Abuse Patient Records regulations: The Federal rules restrict any use of the information to criminally investigate or prosecute any alcohol or drug abuse patient.[facility] HospitalIn the event this information is protected by the Federal Confidentiality of Alcohol and Drug Abuse Patient Records regulations: The Federal rules restrict any use of the information to criminally investigate or prosecute any alcohol or drug abuse patient.[facility] HospitalIn the event this information is protected by the Federal Confidentiality of Alcohol and Drug Abuse Patient Records regulations: The Federal rules restrict any use of the information to criminally investigate or prosecute any alcohol or drug abuse patient.[facility] HospitalIn the event this information is protected by the Federal Confidentiality of Alcohol and Drug Abuse Patient Records regulations: The Federal rules restrict any use of the information to criminally investigate or prosecute any alcohol or drug abuse patient.[facility] HospitalIn the event this information is protected by the Federal Confidentiality of Alcohol and Drug Abuse Patient Records regulations: The Federal rules restrict any use of the information to criminally investigate or prosecute any alcohol or drug abuse patient.[facility] HospitalIn the event this information is protected by the Federal Confidentiality of Alcohol and Drug Abuse Patient Records regulations: The Federal rules restrict any use of the information to criminally investigate or prosecute any alcohol or drug abuse patient.[facility] HospitalIn the event this information is protected by the Federal Confidentiality of Alcohol and Drug Abuse Patient Records regulations: The Federal rules restrict any use of the information to criminally investigate or prosecute any alcohol or drug abuse patient.[facility] HospitalIn the event this information is protected by the Federal Confidentiality of Alcohol and Drug Abuse Patient Records regulations: The Federal rules restrict any use of the information to criminally investigate or prosecute any alcohol or drug abuse patient.[facility] HospitalIn the event this information is protected by the Federal Confidentiality of Alcohol and Drug Abuse Patient Records regulations: The Federal rules restrict any use of the information to criminally investigate or prosecute any alcohol or drug abuse patient.[facility] HospitalIn the event this information is protected by the Federal Confidentiality of Alcohol and Drug Abuse Patient Records regulations: The Federal rules restrict any use of the information to criminally investigate or prosecute any alcohol or drug abuse patient.[facility] HospitalIn the event this information is protected by the Federal Confidentiality of Alcohol and Drug Abuse Patient Records regulations: The Federal rules restrict any use of the information to criminally investigate or prosecute any alcohol or drug abuse patient.[facility] HospitalIn the event this information is protected by the Federal Confidentiality of Alcohol and Drug Abuse Patient Records regulations: The Federal rules restrict any use of the information to criminally investigate or prosecute any alcohol or drug abuse patient.[facility] HospitalIn the event this information is protected by the Federal Confidentiality of Alcohol and Drug Abuse Patient Records regulations: The Federal rules restrict any use of the information to criminally investigate or prosecute any alcohol or drug abuse patient.[facility] HospitalIn the event this information is protected by the Federal Confidentiality of Alcohol and Drug Abuse Patient Records regulations: The Federal rules restrict any use of the information to criminally investigate or prosecute any alcohol or drug abuse patient.[facility] HospitalIn the event this information is protected by the Federal Confidentiality of Alcohol and Drug Abuse Patient Records regulations: The Federal rules restrict any use of the information to criminally investigate or prosecute any alcohol or drug abuse patient.[facility] HospitalIn the event this information is protected by the Federal Confidentiality of Alcohol and Drug Abuse Patient Records regulations: The Federal rules restrict any use of the information to criminally investigate or prosecute any alcohol or drug abuse patient.[facility] HospitalIn the event this information is protected by the Federal Confidentiality of Alcohol and Drug Abuse Patient Records regulations: The Federal rules restrict any use of the information to criminally investigate or prosecute any alcohol or drug abuse patient.[facility] HospitalIn the event this information is protected by the Federal Confidentiality of Alcohol and Drug Abuse Patient Records regulations: The Federal rules restrict any use of the information to criminally investigate or prosecute any alcohol or drug abuse patient.[facility] HospitalIn the event this information is protected by the Federal Confidentiality of Alcohol and Drug Abuse Patient Records regulations: The Federal rules restrict any use of the information to criminally investigate or prosecute any alcohol or drug abuse patient.[facility] HospitalIn the event this information is protected by the Federal Confidentiality of Alcohol and Drug Abuse Patient Records regulations: The Federal rules restrict any use of the information to criminally investigate or prosecute any alcohol or drug abuse patient.[facility] HospitalIn the event this information is protected by the Federal Confidentiality of Alcohol and Drug Abuse Patient Records regulations: The Federal rules restrict any use of the information to criminally investigate or prosecute any alcohol or drug abuse patient.[facility] Reason for Visit (unrecogniz ed section and content) Reason Comments Anticoagulation Telephone Fu Home INR re sult Reason Onset Date Comments Refill Request 11/28/2021 Reason Onset Date Comments Anticoagulation Telephone Fu 12/10/2021 Rahul e INR Result Reason Comments Anticoagulation Telephone Fu Home INR Reason Comments Anticoagulation Telephone Fu Home INR Reason Comments Anticoagulation Telephone Fu Reason Comments Patient Question Reason Onset Date Comments Refill Request 05/14/2022 Reason Comments Patient Request Reason Onset Date Comments Anticoagulation Telephone Fu 05/27/2022 Rahul e INR result Reason Onset Date Comments Refill Request 06/19/2022 Reason Comments F/U 6 months Yearly Exam Reason Comments Results Reason Comments Medication Request Reason Comments Future Appointment Orders Lucie lab results fro m 08-12-22 faxed to [address] [id number]: [phone]: [phone] Reason Comments Results Reason Comments F/U 6 months states the only 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 from 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 Reason Onset Date Comments Anticoagulation Telephone Fu 02/03/2023 Rahul e INR Reason Comments Medication Problem Reason Comments Refill Request Reason Comments Cough Reason Onset Date Comments Anticoagulation Telephone Fu 11/24/2023 Rahul e INR Reason Onset Date Comments Refill Request 02/02/2024 Reason Comments Anticoagulation Telephone Fu Home INR re sults Reason Comments F/U 6 months Reason Onset Date Comments Refill Request 03/16/2024 Reason Onset Date Comments Anticoagulation Telephone Fu 04/12/2024 Rahul e INR Reason Onset Date Comments Anticoagulation Telephone Fu 04/26/2024 Rahul e INR Reason Comments Anticoagulation Telephone Fu Home INR re sult Reason Comments Anticoagulation Reason Onset Date Comments Anticoagulation Telephone Fu 07/05/2024 Rahul e INR Reason Comments Yearly Exam Reason Comments Results xray Reason Comments Declined podiatry referral Reason Comments Results Labs/consult nephrol ogy Reason Onset Date Comments Anticoagulation Telephone Fu 11/01/2024 Rahul e INR Reason Comments F/U 3 Month Reason Onset Date Comments Refill Request 11/17/2024 Opened In Error 11/17/2024 Reason Comments Patient Update Reason Comments Hospital F/U Care Teams (unrecognized sec tion and content) Basket Machine Operator Relationship Specialty Start Date End Date George Mata MD [address] [place] [address] PCP - General 07/28/07 Consultants, [facility] [address] [place] [address] Physician Cardiology 10/20/19 13, Pharmacist [phone] [place] [address] Pharmacist Pharmacy 03/08/20 Basket Machine Operator Relationship Specialty Start Date End Date George Mata MD [address] [place] [address] PCP - General 07/28/07 Consultants, [facility] [address] [place] [address] Physician Cardiology 10/20/19 13, Pharmacist [phone] [facility] [address] Pharmacist Pharmacy 03/08/20 Basket Machine Operator Relationship Specialty Start Date End Date George Mata MD [address] [place] [address] PCP - General 07/28/07 Consultants, [facility] [address] [place] [address] Physician Cardiology 10/20/19 13, Pharmacist [phone] [place] [address] Pharmacist Pharmacy 03/08/20 Basket Machine Operator Relationship Specialty Start Date End Date George Mata MD [address] [place] [address] PCP - General 07/28/07 Consultants, [facility] [address] [place] [address] Physician Cardiology 10/20/19 13, Pharmacist [phone] [facility] [place] [address] Pharmacist Pharmacy 03/08/20 Basket Machine Operator Relationship Specialty Start Date End Date George Mata MD [address] [place] [address] PCP - General 07/28/07 Consultants, [facility] [address] [place] [address] Physician Cardiology 10/20/19 13, Pharmacist [phone] [place] [address] Pharmacist Pharmacy 03/08/20 Basket Machine Operator Relationship Specialty Start Date End Date George Mata MD [address] [place] [address] PCP - General 07/28/07 Consultants, [facility] [address] [place] [address] Physician Cardiology 10/20/19 13, Pharmacist [phone] [place] [address] Pharmacist Pharmacy 03/08/20 Basket Machine Operator Relationship Specialty Start Date End Date George Mata MD [address] [place] [address] PCP - General 07/28/07 Consultants, [facility] [address] [place] [address] Physician Cardiology 10/20/19 13, Pharmacist [phone] [place] [address] Pharmacist Pharmacy 03/08/20 Basket Machine Operator Relationship Specialty Start Date End Date George Mata MD [address] [place] [address] PCP - General 07/28/07 Consultants, [facility] [address] [place] [address] Physician Cardiology 10/20/19 13, Pharmacist [phone] [place] [address] Pharmacist Pharmacy 03/08/20 Basket Machine Operator Relationship Specialty Start Date End Date George Mata MD [address] [place] [address] PCP - General 07/28/07 Consultants, [facility] [address] [place] [address] Physician Cardiology 10/20/19 13, Pharmacist [address] [place] [address] Pharmacist Pharmacy 03/08/20 Basket Machine Operator Relationship Specialty Start Date End Date George Mata MD [address] [place] [address] PCP - General 07/28/07 Consultants, [facility] [address] [place] [address] Physician Cardiology 10/20/19 13, Pharmacist [address] [place] [address] Pharmacist Pharmacy 03/08/20 Basket Machine Operator Relationship Specialty Start Date End Date George Mata MD [address] [place] [address] PCP - General 07/28/07 Consultants, [facility] [address] [place] [address] Physician Cardiology 10/20/19 13, Pharmacist [address] [place] [address] Pharmacist Pharmacy 03/08/20 Basket Machine Operator Relationship Specialty Start Date End Date George Mata MD [address] [place] [address] PCP - General 07/28/07 Consultants, [facility] [address] [place] [address] Physician Cardiology 10/20/19 13, Pharmacist [phone] [place] [address] Pharmacist Pharmacy 03/08/20 Basket Machine Operator Relationship Specialty Start Date End Date George Mata MD [address] [place] [address] PCP - General 07/28/07 Consultants, [facility] [address] [place] [address] Physician Cardiology 10/20/19 13, Pharmacist [phone] [place] [address] Pharmacist Pharmacy 03/08/20 Basket Machine Operator Relationship Specialty Start Date End Date George Mata MD [address] [place] [address] PCP - General 07/28/07 Consultants, [facility] [address] [place] [address] Physician Cardiology 10/20/19 13, Pharmacist [phone] [place] [address] Pharmacist Pharmacy 03/08/20 Basket Machine Operator Relationship Specialty Start Date End Date George Mata MD [address] [place] [address] PCP - General 07/28/07 Consultants, [facility] [address] [place] [address] Physician Cardiology 10/20/19 13, Pharmacist [phone] [place] [address] Pharmacist Pharmacy 03/08/20 Basket Machine Operator Relationship Specialty Start Date End Date George Mata MD [address] [place] [address] PCP - General 07/28/07 Consultants, [facility] [address] [place] [address] Physician Cardiology 10/20/19 13, Pharmacist [phone] [place] [address] Pharmacist Pharmacy 03/08/20 Basket Machine Operator Relationship Specialty Start Date End Date George Mata MD [address] [place] [address] PCP - General 07/28/07 Consultants, [facility] [address] [place] [address] Physician Cardiology 10/20/19 13, Pharmacist [address] [place] [address] Pharmacist Pharmacy 03/08/20 Team Status: Active Member Role Status Dates Dr. George Mata MD Family Provider Active Dr. George Mata MD Primary Care Provider Active Team Status: Inactive Member Role Status Dates Dr. George Mata MD Primary Care Provider Active Dr. Faizan Pierce MD Attending Provider, Referring Provider Active Basket Machine Operator Relationship Specialty Start Date End Date George Mata MD [address] [place] [address] PCP - General 07/28/07 Consultants, [facility] [address] [place] [address] Physician Cardiology 10/20/19 13, Pharmacist [phone] [place] [address] Pharmacist Pharmacy 03/08/20 Basket Machine Operator Relationship Specialty Start Date End Date George Mata MD [address] [place] [address] PCP - General 07/28/07 Consultants, [facility] [address] [place] [address] Physician Cardiology 10/20/19 13, Pharmacist [phone] [place] [address] Pharmacist Pharmacy 03/08/20 Team Status: Inactive Member Role Status Dates Dr. George Mata MD Primary Care Provider Active Dr. Elmer Rousseau MD Attending Provider, Referring Provider Active Basket Machine Operator Relationship Specialty Start Date End Date George Mata MD [address] [place] [address] PCP - General 07/28/07 Consultants, [facility] [address] [place] [address] Physician Cardiology 10/20/19 13, Pharmacist [address] [place] [address] Pharmacist Pharmacy 03/08/20 Basket Machine Operator Relationship Specialty Start Date End Date George Mata MD [address] [place] [address] PCP - General 07/28/07 Consultants, [facility] [address] [place] [address] Physician Cardiology 10/20/19 13, Pharmacist [phone] [place] [address] Pharmacist Pharmacy 03/08/20 Basket Machine Operator Relationship Specialty Start Date End Date George Mata MD [address] [place] [address] PCP - General 07/28/07 Consultants, [facility] [address] [place] [address] Physician Cardiology 10/20/19 13, Pharmacist [address] [place] [address] Pharmacist Pharmacy 03/08/20 Basket Machine Operator Relationship Specialty Start Date End Date George Mata MD [address] [place] [address] PCP - General 07/28/07 Consultants, [facility] [address] [place] [address] Physician Cardiology 10/20/19 13, Pharmacist [address] [place] [address] Pharmacist Pharmacy 03/08/20 Basket Machine Operator Relationship Specialty Start Date End Date George Mata MD [address] [place] [address] PCP - General 07/28/07 Consultants, [facility] [address] [place] [address] Physician Cardiology 10/20/19 13, Pharmacist [phone] [place] [address] Pharmacist Pharmacy 03/08/20 Basket Machine Operator Relationship Specialty Start Date End Date George Mata MD [address] [place] [address] PCP - General 07/28/07 Consultants, [facility] [address] [place] [address] Physician Cardiology 10/20/19 13, Pharmacist [phone] [place] [address] Pharmacist Pharmacy 03/08/20 Basket Machine Operator Relationship Specialty Start Date End Date George Mata MD [address] [place] [address] PCP - General 07/28/07 Consultants, [facility] [address] [place] [address] Physician Cardiology 10/20/19 13, Pharmacist [address] [place] [address] Pharmacist Pharmacy 03/08/20 Basket Machine Operator Relationship Specialty Start Date End Date George Mata MD [address] [place] [address] PCP - General 07/28/07 Consultants, [facility] [address] [place] [address] Physician Cardiology 10/20/19 13, Pharmacist [phone] [place] [address] Pharmacist Pharmacy 03/08/20 Basket Machine Operator Relationship Specialty Start Date End Date George Mata MD [address] [place] [address] PCP - General 07/28/07 Consultants, [facility] [address] [place] [address] Physician Cardiology 10/20/19 13, Pharmacist [address] [place] [address] Pharmacist Pharmacy 03/08/20 Basket Machine Operator Relationship Specialty Start Date End Date George Mata MD [address] [place] [address] PCP - General 07/28/07 Consultants, [facility] [address] [place] [address] Physician Cardiology 10/20/19 13, Pharmacist [address] [place] [address] Pharmacist Pharmacy 03/08/20 Paola Blue, DIRECTOR OF ROOMS.TURBOGENERATOR OPERATOR [address] [place] [address] [facility] 07/18/24 Basket Machine Operator Relationship Specialty Start Date End Date George Mata MD [address] [place] [address] PCP - General 07/28/07 Consultants, [facility] [address] [place] [address] Physician Cardiology 10/20/19 13, Pharmacist [address] [facility] [place] [address] Pharmacist Pharmacy 03/08/20 Paola Blue, DIRECTOR OF ROOMS.TURBOGENERATOR OPERATOR [address] [place] [address] [facility] 07/18/24 Basket Machine Operator Relationship Specialty Start Date End Date George Mata MD [address] [facility] [place] [address] PCP - General 07/28/07 Consultants, [facility] [address] [place] [address] Physician Cardiology 10/20/19 13, Pharmacist [address] [place] [address] Pharmacist Pharmacy 03/08/20 Paola Blue, DIRECTOR OF ROOMS.TURBOGENERATOR OPERATOR [address] [place] [address] [facility] 07/18/24 Basket Machine Operator Relationship Specialty Start Date End Date George Mata MD [address] [place] [address] PCP - General 07/28/07 Consultants, [facility] [address] [place] [address] Physician Cardiology 10/20/19 13, Pharmacist [address] [place] [address] Pharmacist Pharmacy 03/08/20 Paola Blue, DIRECTOR OF ROOMS.TURBOGENERATOR OPERATOR [address] [place] [address] [facility] 07/18/24 Basket Machine Operator Relationship Specialty Start Date End Date George Mata MD [address] [place] [address] PCP - General 07/28/07 Consultants, [facility] [address] [place] [address] Physician Cardiology 10/20/19 13, Pharmacist [phone] [facility] [address] Pharmacist Pharmacy 03/08/20 Paola Blue, DIRECTOR OF ROOMS.TURBOGENERATOR OPERATOR [address] [place] [address] [facility] 07/18/24 Basket Machine Operator Relationship Specialty Start Date End Date George Mata MD [address] [place] [address] PCP - General 07/28/07 Consultants, [facility] [address] [place] [address] Physician Cardiology 10/20/19 13, Pharmacist [phone] [facility] [address] Pharmacist Pharmacy 03/08/20 Paola Blue, DIRECTOR OF ROOMS.TURBOGENERATOR OPERATOR [address] [place] [address] [facility] 07/18/24 Basket Machine Operator Relationship Specialty Start Date End Date George Mata MD [address] [place] [address] PCP - General 07/28/07 Consultants, [facility] [address] [place] [address] Physician Cardiology 10/20/19 13, Pharmacist [address] [place] [address] Pharmacist Pharmacy 03/08/20 Paola Blue, DIRECTOR OF ROOMS.TURBOGENERATOR OPERATOR [address] [facility] [place] [address] [facility] Internal [facility] 07/18/24 Basket Machine Operator Relationship Specialty Start Date End Date George Mata MD [address] [place] [address] PCP - General 07/28/07 Consultants, [facility] [address] [place] [address] Physician Cardiology 10/20/19 13, Pharmacist [address] [place] [address] Pharmacist Pharmacy 03/08/20 Paola Blue, DIRECTOR OF ROOMS.TURBOGENERATOR OPERATOR [address] [place] [address] [facility] Internal Medicine 07/18/24 Basket Machine Operator Relationship Specialty Start Date End Date George Mata MD [address] [place] [address] PCP - General 07/28/07 Consultants, [facility] [address] [place] [address] Physician Cardiology 10/20/19 13, Pharmacist [address] [place] [address] Pharmacist Pharmacy 03/08/20 Paola Blue, DIRECTOR OF ROOMS.TURBOGENERATOR OPERATOR [address] [place] [address] [employer] Internal [facility] 07/18/24 Team Status: Active Member Role Status Dates Dr. George Mata MD Primary Care Provider Active Team Status: Inactive Member Role Status Dates Dr. George Mata MD Primary Care Provider Active Start: October 17, 2024 End: October 17, 2024 Dr. Faizan Pierce MD Attending Provider Active Start: October 17, 2024 End: October 17, 2024 Dr. Faizan Pierce MD Referring Provider Active Start: October 17, 2024 End: October 17, 2024 Basket Machine Operator Relationship Specialty Start Date End Date George Mata MD [address] [facility] [place] [address] PCP - General 07/28/07 Consultants, [facility] [address] [place] [address] Physician Cardiology 10/20/19 13, Pharmacist [address] [place] [address] Pharmacist Pharmacy 03/08/20 Paola Blue, DIRECTOR OF ROOMS.TURBOGENERATOR OPERATOR [address] [facility] [place] [address] [facility] Internal [facility] 07/18/24 Basket Machine Operator Relationship Specialty Start Date End Date George Mata MD [address] [facility] [place] [address] PCP - General 07/28/07 Consultants, [facility] [address] [place] [address] Physician Cardiology 10/20/19 13, Pharmacist [address] [place] [address] Pharmacist Pharmacy 03/08/20 Paola Blue, DIRECTOR OF ROOMS.TURBOGENERATOR OPERATOR [address] [facility] [place] [address] [facility] 07/18/24 Team Status: Inactive Member Role Status Dates Dr. George Mata MD Primary Care Provider Active Start: December 16, 2024 End: December 16, 2024 Dr. Mackenzie Iverson DO Attending Provider Active Start: December 16, 2024 End: December 16, 2024 Dr. Mackenzie Iverson DO Referring Provider Active Start: December 16, 2024 End: December 16, 2024 Basket Machine Operator Relationship Specialty Start Date End Date George Mata MD [address] [place] [address] PCP - General 07/28/07 Consultants, [facility] [address] [place] [address] Physician Cardiology 10/20/19 13, Pharmacist [address] [place] [address] Pharmacist Pharmacy 03/08/20 Paola Blue, DIRECTOR OF ROOMS.TURBOGENERATOR OPERATOR [address] [place], [place] [address] [facility] 07/18/24 Basket Machine Operator Relationship Specialty Start Date End Date George Mata MD [address] [place] [address] PCP - General 07/28/07 Consultants, [facility] [address] [place] [address] Physician Cardiology 10/20/19 13, Pharmacist [address] [place] [address] Pharmacist Pharmacy 03/08/20 Paola Blue, DIRECTOR OF ROOMS.TURBOGENERATOR OPERATOR [address] [place] [address] [employer] Internal [facility] 07/18/24 Goals (unrecognized section and content) Goals may be documented in a n alternate section (unrecognized sect ion and content) No Status Records FoundNo Status Records FoundNo Status Records FoundNo Status Records FoundNo Status Records Found INFORMATION SOURCE (unrecogn ized section and content) DATE CREATED AUTHOR 03/12/2024 [facility] ([place]) DATE CREATED AUTHOR AUTHOR'S ORGANIZ ATION 12/21/2024 [facility] DATE CREATED AUTHOR AUTHOR'S ORGANIZ ATION 01/10/2025 [facility] DATE CREATED AUTHOR AUTHOR'S ORGANIZ ATION 02/27/2025 [facility] DATE CREATED AUTHOR AUTHOR'S ORGANIZ ATION 03/02/2025 [facility] FOR RECORDS PERTAINING TO PATIENTS WHO ARE OR HAVE BEEN ENROLLED IN A CHEMICAL DEPENDENCY/SUBSTANCEABUSE PROGRAM, SOME INFORMATION MAY BE OMITTED. This clinical summary was aggregated from multiple sources. Caution should be exercised in using it in the provision of clinical care. This summary normalizes information from multiple sources, and as a consequence, information in this document may materially change the coding, format and clinical context of patient data. In addition, data may be omitted in some cases. CLINICAL DECISIONS SHOULD BE BASED ON THE PRIMARY CLINICAL RECORDS. [employer] [facility]. provides no warranty or guarantee of the accuracy or completeness of information in this document.
--- NOTE | 2025-03-04 12:00 | VDLE_ITS ---
Reason For Study Reason For Study: Swelling BLE RIGHT LEFT GSV is normal. GSV is normal. CFV is compressible, spontaneous, phasic, competent CFV is compressible, spontaneous, phasic, competent, and demonstrates normal augmentation. and demonstrates normal augmentation. FV is compressible, spontaneous, phasic, competent FV is compressible, spontaneous, phasic, competent and demonstrates normal augmentation. and demonstrates normal augmentation. POP V is compressible, spontaneous, phasic, competent POP V is compressible, spontaneous, phasic, competent and demonstrates normal augmentation. and demonstrates normal augmentation. T/P Trunk is compressible. T/P Trunk is compressible. PTV is compressible. PTV is compressible. RT PerV is compressible. LT PerV is compressible. Procedure This is a venous duplex using B-mode, color flow and spectral Doppler. Exam performed portable in ED. A preliminary report was called and/or faxed to Dr. Orosco. VL/Venous Duplex US - Anjel Extrem Interpretation Summary Deep veins of the bilateral lower extremities are patent and compressible segme ntally. There is no evidence of bilateral lower extremity deep vein thrombosis. The bilateral great saphenous veins appea r patent and compressible segmentally. Ordering Physician: Nash Orosco Referring Physician: George Mata Performed By: Kaylynn Ferreira, SHENG, RVT
--- NOTE | 2025-03-04 12:05 | EKG12_ITS ---
Test Reason : EDEMA Blood Pressure : */* mmHG Vent. Rate : 72 BPM Atrial Rate : 66 BPM P-R Int : * ms QRS Dur : 170 ms QT Int : 478 ms P-R-T Axes : * 248 84 degrees QTcB Int : 523 ms Ventricular-paced rhythm Biventricular pacemaker detected Abnormal ECG Confirmed by DIXIE MÉNDEZ MD ([id number]), purchase request editor VICKEY ANDERSON ([id number]) on 03/06/2025 7:31:22 AM Referred By: Confirmed By: DIXIE MÉNDEZ MD
--- NOTE | 2025-03-04 12:10 | RAD_ITS ---
PROCEDURE: CHEST 1 VIEW (PORTABLE) 03/04/2025 REASON FOR EXAM: CHEST PAIN TECHNIQUE: Frontal view of the chest. COMPARISON: None. FINDINGS: The heart is enlarged. Prior sternotomy. Left chest AICD. Bilateral reticular opacities and consolidative opacities of the lung bases which may represent edema, infection, chronic interstitial changes, or mixture thereof. Small right pleural effusion. RAD/Chest 1 View (Portable) IMPRESSION: Pulmonary findings as above. Reading Location: [id number]
[2025-03-04 12:13] LABS: Hematocrit 34.9 % (40-54); Hemoglobin 11.1 g/dL (13.0-16.5); Immature Granulocytes Count 0.020 X10^3/uL (0.0-0.0); Mean Corp Hgb Conc 31.8 g/dL (32-36); Mean Corpuscular Volume 88.1 fL (80-94); Mean Platelet Vol. 10.5 fl (6.2-12.0); NRBC Flagged by Analyzer 0 % (0-5); Platelet Count 140 K/mm3 (150-450); RBC Distribution Width CV 17.2 % (11.6-14.6); RBC Distribution Width SD 54.9 fl (35.1-43.9); Red Blood Count 3.96 M/mm3 (4.6-6.2); White Blood Count 7.7 K/mm3 (4.4-11.0)
[2025-03-04 12:22] LABS: Prothrombin Time (Protime)PT. 19.4 SECONDS (11.7-14.9)
[2025-03-04 12:44] LABS: Anion Gap 15 (5-15); BUN 41 mg/dL (4-19); BUN/Creat Ratio 23.2 RATIO (10-20); Calcium,Total 9.5 mg/dL (7.6-11.0); Carbon Dioxide 24.0 mmol/L (21.0-32.0); Chloride 100 mmol/L (98-108); Estimated Creatinine Clearance 33.67 ml/min (50-250); Glucose 118 mg/dL (70-99); Magnesium 2.4 mg/dL (1.5-2.2); Potassium 3.7 mmol/L (3.3-5.1)
[2025-03-04 12:51] LABS: Pro- Brain NATRIURETIC PEPTIDE 2790 pg/mL (<=1800); Troponin T High Sensitivity 122 ng/L (<=22)
--- NOTE | 2025-03-04 14:18 | PCA ---
[facility] [employer] CALLED BE CALLED BACK ABOUT THE BED AND ACCEPTANCE SITUATION OF THE PATIENT. PATIENT IS WAITING ON A BED. JIM AT TRANSFER LINE SAID HOPEFULLY TONIGHT, BUT ITS TINGENT ON THE AMOUNT OF DISCHARGES AND THERE ARE 4 ADMISSIONS AHEAD OF OUR PATIENT WAITING ON A BED.
[2025-03-04 14:37] LABS: Troponin T High Sens 2 HR 99 ng/L (<=22)
--- NOTE | 2025-03-04 15:15 | CM.ED ---
Social Work Date of referral: 03/04/25 Reason for referral: Advanced Care Directives (ACD's) not on file. Referred by: Social Work Identification Patient provided consent for Social Work Visit. Invasive Cardiovascular Technologist requested a copy of patient's ACD's which patient and patient's agreed to bring in. Lynette Jensen, NEUROLOGY DIRECTOR, STRATEGIC DEVELOPMENT MANAGER
[2025-03-04 16:15] LABS: Troponin T High Sens 4 HR 101 ng/L (<=22)
--- NOTE | 2025-03-04 16:45 | ED.RN ---
Dr Orosco notified of critical 4 ht trop.
[2025-03-04] MEDS: Lorazepam 2 MG/ML WCH Syringe 0.5 MG IV (18:26)
--- NOTE | 2025-03-04 20:39 | PCA ---
THIS WASTE RECLAIMER SPOKE WITH PIEDAD FROM [facility] [employer]SF[facility] [employer], STATES UNFORTUNATELY WILL NOT HAVE AN ASSIGNED BED TIL 03/05 AM.
--- OUTSIDE RECORDS SUMMARY | 2025-03-04 20:55 | XMS RPT_ITS | CCD ---
Author Organization [facility] Care Team Providers Care Learning And Development Consultant Name Role Phone Madisyn Lieberman Unavailable Unavailable Naun PONCE, Kaveh Camp Unavailable Johnson, RN, Gladys Parrish Unavailable Unavailable QUE Ornelas, Gladys Parrish Unavailable Unavailable DR GEORGE MATA MD Primary Care Physician George Mata MD Primary Care Provider Consultants, [facility] Unavailable 13, Pharmacist Unavailable George Mata MD Primary Care Provider Consultants, [facility] Unavailable 13, Pharmacist Unavailable Consultants, [facility] Unavailable George Mata MD Primary Care Provider Consultants, [facility] Unavailable 13, Pharmacist Unavailable DR GEORGE MATA MD Primary Care Physician George Mata MD Primary Care Provider STALIN PONCE, BRIONNA Lee Attending Unavailable DR GEORGE MATA MD Primary Care Unavaila corby Blue APRN.COMMERCIAL MAINTENANCE TECHNICIAN, Paola M Unavailable Dr. George Mata MD Primary Care Provider Dr. Faizan Pierce MD Attending Provider Dr. Faizan Pierce MD Referring Provider Dr. Mackenzie Iverson DO Attending Provider Dr. Mackenzie Iverson DO Referring Provider [phone] George Mata Primary Care Unavailable Sol Glez Attending Unavailable Sol Glez Referring Unavailable George Mata Primary Care Unavailable Faizan Pierce Attending Unavailable Faizan Pierce Referring Unavailable Mackenzie Iverson Attending Unavailable George Mata Primary Care Unavailable Mackenzie Iverson Attending [...] every 4 hours as needed. 12/31/2024 Active [id number] 200 actuat albuterol 0.09 mg/actuat metered dose [...] TBEC One tablet by mouth daily ASPIRIN [id number] Kaveh Magallon MD Start: 02-16-2017 take 1 [...] C ALCIUM 20 MG TABS ATORVASTATIN CALCIUM [id number] Kaveh Magallon MD Comment on above: Take 1 tablet by mando th once daily. atropine sulfate 0.0194 mg / hyoscyamine sulfate 0.1037 mg / PHENobarbital 16.2 mg / scopolamine hydrobromide 0.0065 mg oral tablet (20 sources) Anticholinergic, Cholinergic Muscarinic Antagonist Start: 3 End: take 1 tablet by mouth every six hours as needed funohtkpw-optqcx-lu ropine-scop () 16.2-0.1037 -0.0194 mg per tablet Indications: Irritable bowel syndrome, unspecified type Take 1 tablet by mouth every 6 hours as needed. 240 tablet 11/17/2024 Active Start: 01-17-2021 End: 06-19-2022 take 1 tablet by mouth every six hours as needed utvdqvqcv-rtchdj-eqgdhnhw-scop ( ) 16.2-0.1037 -0.0194 mg per tablet Indications: Irritable bowel syndrome, unspecified type Take 1 tablet by mouth every 6 hours as needed. 240 tablet 01/17/2021 11/28/2021 Discontinued Start: 02-16-2017 take 1 tablet by mando th every four hours as needed for diarrhea Xvwvbwhes-Hijhut-Vgqkwnkf-Scop ( ) 16.2 MG tablet Active 16.2 [...] complication, without long-term current use of insulin ([facility]) Glucose Meter of Choice - [...] 0 Refill(s), 03/06/25 1:23:00 PM EDT, Pharmacy: [facility], 175.3, cm, 02/24/25 9:10:00 EDT, Height, 83.2, kg, 02/24/25 9:10:00 EDT, Dosing Weight Start Date: 02/24/25 Stop Date: 03/06/25 Status: Ordered Quantity: 20.0 Unit: tab(s) Repeat number: 1 colchicine 0.6 mg oral tablet (1 source) Start: 07-31-20 colchicine 0.6 mg oral tablet Dose : 0.6 mg = 1 tab(s), Oral, qDay, # 30 tab(s), 0 Refill(s), Pharmacy: [facility], 175.3, cm, 07/25/21 20:25:00 EST, [...] each, # 22 gram(s), 0 Refill(s), Pharmacy: [facility], Ointment, 173, cm, 02/13/25 9:58:00 [...] 0.4 mg SL tablet Indications: Atherosclerosis of [place] coronary artery of [place] heart without angina pectoris Dissolve 1 tablet [...] on above: Take 4 tablets by mo [facility] once daily for 2 days, THEN 2 tablets once daily for 2 days, THEN 1 tablet once daily for 2 days. Take 1 tablet by [facility] once daily for 5 days. sacubitril [...] BID, # 120 tab(s), 0 Refill(s), Pharmacy: [facility], Ventricular tachycardia, 175.3, cm, 03/10/24 10:01:00 EDT, Height, kg, 03/10/24 10:01:00 EDT, Dosing Weight Start Date: 10/29/24 Status: Ordered Quantity: 120.0 Unit: tab(s) Repeat number: 1 Indications: Ventricular tachycardia; Start: 03-31-2022 sotalol 80 mg oral tablet Dose : 160 mg = 2 tab(s), Oral, BID, # 360 tab(s), 3 Refill(s), Pharmacy: [facility], Ventricular tachycardia, 175.3, cm, 12/30/21 [...] BID, # 120 tab(s), 3 Refill(s), Pharmacy: [facility], 175.3, cm, 07/25/21 20:25:00 EST, Height, kg, 07/25/21 20:25:00 EST, Dosing Weight Start Date: 07/31/21 Status: Ordered Comment on above: Take 2 tablets by mo [facility] twice daily. spironolactone 25 mg oral tablet [...] qDay, # 30 tab(s), 0 Refill(s), Pharmacy: 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 RV lead is [employer] model 0296, serial #[id number] implanted 06/10/2013. RA lead implant on 10/29/2015 is a [employer] model 4470, serial#[id number]. LV lead implant on 10/29/2015 is a [employer] model #4677, serial #[id number]. Congestive heart failure; nonhypertensive (20 sources) Chronic systolic heart failure; Translations: [Congestive heart failure] Onset: 8 10-17-2019 Chronic Comment on above: Patient has known sy stolic CHF, EF about 40%%. Ischemic/valvular. Previous CABG and valve replacement. Coronary atherosclerosis and other heart disease (20 sources) Coronary arteriosclerosis; Translations: [Coronary arteriosclerosis in [place] artery] Onset: 5 04-15-2019 Chronic Comment on above: post PCI to RCA on As stated above he has patent graft the left anterior descending artery. He is vein graft to the RPDA is retrogradely filling from the [place] right coronary artery. His [place] right coronary artery has severe distal lesion [...] the RCA. 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] Onset: 5 Episodic [...] sources) Long-term current use of anticoagulant; Translations: [residential (current) use of anticoagulants] Onset: 01-26-2019 01-26-2019 Episodic Other aftercare (20 sources) Anticoagulant effect; Translations: [residential (current) use of anticoagulants] Onset: 05-02-2013 Resolved: [...] Test Name Value Interpretation Reference Range Facility [facility] 02-28-2025 CNPN Telephone (PHAMTE) BESSY VALVERDE ([id number]) 1945 M Date Time Provider Department 02/28/25 JONATHAN HAWKINS During your visit today, we recorded the following information about you: Jonathan Hawkins [facility] 02/28/2025 8:17 AM Signed [facility] Pharm[facility] Anticoagulation Clinic Anticoagulation Episode Summary Anticoagulation Care Providers Provider Role Specialty Phone number George Mata MD [facility] Internal Medicine [phone] Bessy Valverde is a 79 year old [...] missed any doses of warfarin. Jonathan Hawkins [facility] Clinical Pharmacist, Pharmacy Anticoagulation Clinic Pharmacy Anticoagulation Clinic Pager: [phone]. Allergies As of Date: 02/28/2025 (No Known [...] directed for weight gain, fluid retention. - axfoyadrt-vtmvyd-axolkg ne-scop () 16.2-0.1037 -0.0194 mg per tablet [...] Diverticulosis [K57.90] (more content not included)... Normal [facility] .GFROrdered By: SYSTEM SYSTE M on [...] CMP, PBNP, GFR, PRO, CBC, ANEULANE #### [address] [address] BMPon 02-24-2025 BUN/Creatinine Ratio 27.7 ratio High 10.0-22.0 [facility] Comment on above: Performed By: #### T DANIEL RIVAS, CMP, PBNP, GFR, PRO, CBC, ANEULANE #### [address] [address] BMPOrdered By: SYSTEM SYSTEM on 02-24-2025 Calcium [Mass/Vol] 9.7 mg/dL Normal 8.7-10.4 AH ADM SS Comment on above: Performed By: #### T EVELYN, ADPHYLLIS, CMP, PBNP, GFR, PRO, CBC, ANEULANE #### [address] [address] Chloride [Moles/Vol] 103 mmol/L Normal 98-110 AH A DM SS Comment on above: Performed By: #### T EVELYN ADPHYLLIS, CMP, PBNP, GFR, PRO, CBC, ANEULANE #### [address] [address] CO2 [Moles/Vol] 27 mmol/L Normal 22-32 AH ADM SS Comment on above: Performed By: #### T ROPHS, ADIFF, CMP, PBNP, GFR, PRO, CBC, LANE FERNANDEZ #### [address] [address] Creatinine [Mass/Vol] 1.55 mg/dL High 0.60-1.40 AH ADM SS Comment on above: Interpretive Data: T esting performed on [employer] CH analyzer using enzymatic creatinine methodology. Result Comment: Test ing performed on [employer] CH analyzer using enzymatic creatinine methodology. Performed By: #### T ROPHS, ADIFF, CMP, PBNP, GFR, PRO, CBC, LANE FERNANDEZ #### [address] [address] Electrolyte Balance 13.0 mEq/L Normal 4.0-15.0 AH AD M SS Comment on above: Performed By: #### T EVELYN, ADIFF, CMP, PBNP, GFR, PRO, CBC, LANE FERNANDEZ #### [address] [address] Glucose [Mass/Vol] 135 mg/dL High 82-115 AH ADM SS Comment on above: Performed By: #### T EVELYN, ADIFF, CMP, PBNP, GFR, PRO, CBC, LANE FERNANDEZ #### [address] [address] Potassium [Moles/Vol] 4.1 mmol/L Normal 3.5-5.0 AH ADM SS Comment on above: Performed By: #### T ROPHS, ADIFF, CMP, PBNP, GFR, PRO, CBC, LANE FERNANDEZ #### [address] [address] Sodium [Moles/Vol] 143 mmol/L Normal 136-145 AH ADM SS Comment on above: Performed By: #### T ROPHS, ADIFF, CMP, PBNP, GFR, PRO, CBC, LANE FERNANDEZ #### [address] [address] Urea nitrogen [Mass/Vol] 43.0 mg/dL High 8.0-22.0 AH ADM SS Comment on above: Performed By: #### T ROPHS, ADIFF, CMP, PBNP, GFR, PRO, CBC, ANEU, MDW #### [address] [address] LABORATORYOrdered By: Dior frazier on 02-24-2025 Glucose [Mass/Vol] 125 mg/dL High 82 - 115 mg/dL [facility] LABORATORYOrdered By: SYSTEM SYSTEM on 02-24-2025 PT International Ratio 2.1 ratio Invalid Interpretation Code IGOR HemoHbritney BRITO Comment on above: Interpretive Data: Reid pacheco [employer] (CHEST, 1991, 102:312S-25S) recommended therapeutic range for oral anticoagulant therapy is: LOW RISK: Prophylaxis of venous thrombosis INR: 2.0-3.0 Treatment of pulmonary embolism 2.0-3.0 Prevention of systemic embolism 2.0-3.0 HIGH RISK: Mechanical prosthetic valves 2.5-3.5 Urea nitrogen/Creatinine [Mass ratio] 27.7 ratio High 10.0 - 22.0 ratio ADM SS PROon 02-24-2025 INR Coag (PPP) [Relative time] 2.1 {INR} Normal [facility] Comment on above: Result Comment: [employer] (CHEST, 1991, 102:312S-25S) recommended therapeutic range for oral anticoagulant therapy is: LOW RISK: Prophylaxis of venous thrombosis INR: 2.0-3.0 Treatment of pulmonary embolism 2.0-3.0 Prevention of systemic embolism 2.0-3.0 HIGH RISK: Mechanical prosthetic valves 2.5-3.5 Performed By: #### T EVELYN, DANIEL, CMP, PBNP, GFR, PRO, CBC, ANEU, MDW #### [address] [address] PROOrdered By: SYSTEM SYSTEM on 02-24-2025 PT [...] PBNP, GFR, PRO, CBC, ANEU, MDW #### [address] [address] XR CHEST 1 VIEWon 02-24-2025 XR CHEST [...] 02/24/2025 2:11:11 PM Ordering Provider: VERONIQUE TOUSSAINT [facility] 02-21-2025 ROSI Telephone ([employer]) BESSY VALVERDE ([id number]) 1945 M Date Time Provider Department 02/21/25 JONATHAN HAWKINS During your visit today, we recorded the following information about you: Jonathan Hawkins, [facility] 02/21/2025 7:59 AM Signed [facility] Ambulatory Pharmacy Anticoagulation Clinic Anticoagulation Episode Summary Anticoagulation Care Providers Provider Role Specialty Phone number MataGeorge MD Responsible Internal Medicine [phone] Bessy Valverde is a 79 year old [...] missed any doses of warfarin. Jonathan Hawkins [facility] Clinical Pharmacist, Pharmacy Anticoagulation Clinic Pharmacy Anticoagulation Clinic Pager: [phone]. Allergies As of Date: 02/21/2025 (No Known [...] directed for weight gain, fluid retention. - lnodjcefe-slsgze-tfofvp ne-scop () 16.2-0.1037 -0.0194 mg per tablet [...] well-controlled [J*05/ (more content not included)... Normal [facility] 02[facility]14-2025 [facility]PHAMTE[facility] BESSY VALVERDE ([id number]) 1945 M Date Time Provider Department 02/14/25 JONATHAN HAWKINS During your visit today, we recorded the following information about you: Jonathan Hawkins [facility] 02/14/2025 10:26 AM Signed [facility] Ambulatory Pharmacy Anticoagulation Clinic Anticoagulation Episode Summary Anticoagulation Care Providers Provider Role Specialty Phone number George Mata MD [facility] Internal Medicine [phone] Bessy Hernandez Nicolle is a 79 year [...] missed any doses of warfarin. Jonathan Hawkins [facility] Clinical Pharmacist, Pharmacy Anticoagulation Clinic Pharmacy Anticoagulation Clinic Pager: [phone]. Allergies As of Date: 02/14/2025 (No Known [...] directed for weight gain, fluid retention. - zskzvfqth-yczvro-hwhbue ne-scop () 16.2-0.1037 -0.0194 mg per tablet [...] [K57.90] 07/10 (more content not included)... Normal [facility] .Auto Diffon 02-13-2025 Basophil, Absolute 0.0 10 3/mcL Normal 0.0-0.3 [facility] Comment on above: Performed By: #### T EVELYN, ADIFF, CMP, PBNP, GFR, PRO, CBC, ANEU, MDW #### [address] [address] Basophils/100 WBC (Bld) 0.6 % Normal 0.0-2.5 [facility] Comment on above: Performed By: #### T EVELYN ADPHYLLIS, CMP, PBNP, GFR, PRO, CBC, ANEU MDW #### [address] [address] Eosinophil, Absolute 0.1 10 3/mcL Normal 0.0-0.7 [facility] Comment on above: Performed By: #### T EVELYN, ADIFF, CMP, PBNP, GFR, PRO, CBC, ANEU, MDW #### [address] [address] Eosinophils/100 WBC (Bld) 1.2 % Normal 0.0-6.0 [facility] Comment on above: Performed By: #### T EVELYN, ADIFF, CMP, PBNP, GFR, PRO, CBC, ANEU, MDW #### [address] [address] Lymphocyte, Absolute 0.5 10 3/mcL Low 0.9-4.3 [facility] Comment on above: Performed By: #### T ROPHS, ADIFF, CMP, PBNP, GFR, PRO, CBC, ANEU, MDW #### [address] [address] Lymphocytes/100 WBC (Bld) 7.7 % Low 20.0-40.0 [facility] Comment on above: Performed By: #### T ROPHS, ADIFF, CMP, PBNP, GFR, PRO, CBC, ANEU, W #### [address] [address] Monocyte, Absolute 0.7 10 3/mcL Normal 0.1-1.4 [facility] Comment on above: Performed By: #### T ROPHS, ADIFF, CMP, PBNP, GFR, PRO, CBC, ANEU, MDW #### [address] [address] Monocytes/100 WBC (Bld) 10.1 % Normal 2.0-13.0 [facility] Comment on above: Performed By: #### T ROPHS, ADIFF, CMP, PBNP, GFR, PRO, CBC, ANEU, MDW #### [address] [address] Neutrophils/100 WBC (Bld) 80.4 % High 50.0-75.0 [facility] Comment on above: Performed By: #### T ROPHS, ADIFF, CMP, PBNP, GFR, PRO, CBC, ANEU, MDW #### [address] [address] .GFRon 02-13-2025 Estimated Glomerular Filtration Rate 41 ml/min/1.73sqm Normal [facility] Comment on above: Result Comment: [...] PBNP, GFR, PRO, CBC, LANE FERNANDEZ #### [address] [address] .NEUABSon 02-13-2025 Neutrophil, Absolute 5.4 10 3/mcL Normal 2.3-8.1 [facility] Comment on above: Performed By: #### T ROPHS, ADIFF, CMP, PBNP, GFR, PRO, CBC, LANE FERNANDEZ #### [address] [address] BMPon 02-13-2025 BUN/Creatinine Ratio 24.6 ratio High 10.0-22.0 [facility] Comment on above: Performed By: #### T EVELYN, ADIFF, CMP, PBNP, GFR, PRO, CBC, LANE FERNANDEZ #### [address] [address] Calcium [Mass/Vol] 9.5 mg/dL Normal 8.7-10.[address] [facility] Comment on above: Performed By: #### T EVELYN, ADIFF, CMP, PBNP, GFR, PRO, CBCJIM MDW #### [address] [address] Chloride [Moles/Vol] 102 mmol/L Normal 98-110 [facility] Comment on above: Performed By: #### T ROPHS, ADIFF, CMP, PBNP, GFR, PRO, CBC, LANE FERNANDEZ #### [address] [address] CO2 [Moles/Vol] 29 mmol/L Normal 22-32 [facility] Comment on above: Performed By: #### T ROPHS, ADIFF, CMP, PBNP, GFR, PRO, CBC, LANE FERNANDEZ #### [address] [address] Creatinine [Mass/Vol] 1.67 mg/dL High 0.60-1.40 [facility] Comment on above: Result Comment: Test ing performed on [employer] analyzer using enzymatic creatinine methodology. Performed By: #### T ROPHS, ADIFF, CMP, PBNP, GFR, PRO, CBCJIM MDW #### [address] [address] Electrolyte Balance 11.0 mEq/L Normal 4.0-15.0 [facility] Comment on above: Performed By: #### T ROPHS, ADIFF, CMP, PBNP, GFR, PRO, CBC, LANE FERNANDEZ #### [place] [id number] Glucose [Mass/Vol] 181 mg/dL High 82-[address] [facility] Comment on above: Performed By: #### T ROPHS, ADIFF, CMP, PBNP, GFR, PRO, CBC, LANE FERNANDEZ #### [address] [address] Potassium [Moles/Vol] 3.8 mmol/L Normal 3.5-5.0 [facility] Comment on above: Performed By: #### T ROPHS, ADIFF, CMP, PBNP, GFR, PRO, CBC, LANE FERNANDEZ #### [place] [id number] Sodium [Moles/Vol] 142 mmol/L Normal 136-[address] [facility] Comment on above: Performed By: #### T ROPHS, ADIFF, CMP, PBNP, GFR, PRO, CBC, LANE FERNANDEZ #### [address] [address] Urea nitrogen [Mass/Vol] 41.0 mg/dL High 8.0-22.0 [facility] Comment on above: Performed By: #### T ROPHS, ADIFF, CMP, PBNP, GFR, PRO, CBC, LANE FERNANDEZ #### [address] [address] CBCon 02-13-2025 Erythrocyte distribution width (RBC) [Ratio] 17.5 % High 11.5-15.5 [facility] Comment on above: Performed By: #### T ROPHS, ADIFF, CMP, PBNP, GFR, PRO, CBC, LANE FERNANDEZ #### [place] [address] Hematocrit (Bld) [Volume fraction] 31.9 % Low 40.0-52.0 [facility] Comment on above: Performed By: #### T EVELYN, ADIFF, CMP, PBNP, GFR, PRO, CBC, LANE FERNANDEZ #### [place] [id number] Hgb 10.7 G/dL Low 13.0-17.5 [facility] Comment on above: Performed By: #### T ROPHS, ADIFF, CMP, PBNP, GFR, PRO, CBC, LANE FERNANDEZ #### [place] [id number] MCH (RBC) [Entitic mass] 28.7 pg Normal 27.0-33.0 [facility] Comment on above: Performed By: #### T EVELYN, ADIFF, CMP, PBNP, GFR, PRO, CBC, LANE FERNANEDZ #### [place] [id number] MCHC 33.7 G/dL Normal 32.0-36.0 [facility] Comment on above: Performed By: #### T EVELYN, ADPHYLLIS, CMP, PBNP, GFR, PRO, CBC, LANE FERNANDEZ #### [place] [address] MCV (RBC) [Entitic vol] 85.2 fL Normal 81.0-100.0 [facility] Comment on above: Performed By: #### T EVELYN, ADIFF, CMP, PBNP, GFR, PRO, CBC, LANE FERNANDEZ #### [place] [address] Platelet 135 10 3/mcL Low 150-450 [facility] Comment on above: Performed By: #### T EVELYN, ADIFF, CMP, PBNP, GFR, PRO, CBC, LANE FERNANDEZ #### [place] [address] Platelet mean volume (Bld) [Entitic vol] 8.3 fL Normal 6.4-10.5 [facility] Comment on above: Performed By: #### T ROPHS, ADIFF, CMP, PBNP, GFR, PRO, CBC, LANE FERNANDEZ #### [place] [address] RBC 3.74 10 6/mcL Low 4.50-6.00 [facility] Comment on above: Performed By: #### T ROPHS, ADIFF, CMP, PBNP, GFR, PRO, CBC, LANE FERNANDEZ #### [place] [address] WBC 6.8 10 3/mcL Normal 4.5-10.8 [facility] Comment on above: Performed By: #### T EVELYN, ADIFF, CMP, PBNP, GFR, PRO, CBC, LANE FERNANDEZ #### [place] [address] LABORATORYOrdered By: SYSTEM SYSTEM on 02-13-2025 Basophils [...] above: Interpretive Data: T esting performed on [employer] analyzer using enzymatic creatinine methodology. Electrolyte Balance [...] CNPNon 02-07-2025 CNPN Telephone (PHAMTE) BESSY VALVERDE ([id number]) 1945 M Date Time Provider Department 02/07/25 JONATHAN HAWKINS During your visit today, we recorded the following information about you: Jonathan Hawkins [facility] 02/07/2025 2:40 PM Signed [facility] Ambulatory Pharmacy Anticoagulation Clinic Anticoagulation Episode Summary Anticoagulation Care Providers Provider Role Specialty Phone number George Mata MD [facility] Internal Medicine [phone] Bessy Hernandez Nicolle is a 79 year [...] Pharmacy Anticoagulation Clinic Pharmacy Anticoagulation Clinic Pager: [phone]. Jonathan Hawkins RPh 02/14/2025 9:55 AM Signed [...] directed for weight gain, fluid retention. - ynxiztcaf-ovaisk-ejqdrj ne-scop () 16.2-0.1037 -0.0194 mg per tablet [...] persistent, well- (more content not included)... Normal [facility] CNPNon 01-31-2025 CNPN Telephone (PHAMTE) BESSY VALVERDE ([id number]) 1945 M Date Time Provider Department 01/31/25 JONATHAN HAWKINS PHAMTE During your visit today, we recorded the following information about you: Jonathan Hawkins [facility] 01/31/2025 8:13 AM Signed [facility] Ambulatory Pharmacy Anticoagulation Clinic Anticoagulation Episode Summary Anticoagulation Care Providers Provider Role Specialty Phone number George Mata MD Responsible Internal Medicine [phone] Bessy Valverde is a 79 year old [...] Pharmacy Anticoagulation Clinic Pharmacy Anticoagulation Clinic Pager: [phone]. Jonathan Hawkins RPh 02/07/2025 11:22 AM Signed [...] directed for weight gain, fluid retention. - gnurfolok-ebmjea-pterwn ne-scop () 16.2-0.1037 -0.0194 mg per tablet [...] persistent, well-cont (more content not included)... Normal [facility] 01-30-2025 [facility] (INTMWS) BESSY VALVERDE ([id number]) 1945 M Date Time Provider Department 01/30/25 [...] directed for weight gain, fluid retention. 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 PVD (peripheral vascular disease) with claudica*07/29/2023 Lumbosacral radiculopathy [M54.17] 11/01/2024 Encounter Status:Closed by SANDI DENTON on 01/30/25 [facility] 01-24-2025 CNPN Telephone (PHAMTE) BESSY VALVERDE ([id number]) 1945 M Date Time Provider Department 01/24/25 JONATHAN HAWKINS During your visit today, we recorded the following information about you: Jonathan Hawkins RPh 01/24/2025 8:17 AM Signed [facility] Ambulatory Pharmacy Anticoagulation Clinic Anticoagulation Episode Summary Anticoagulation Care Providers Provider Role Specialty Phone number George Mata MD [facility] Internal Medicine [phone] Bessy Valverde is a 79 year old [...] obvious cause (patient denies medication change, grapefruit/cranberry/po megranate/meom ingestion, OTC medication use, change in herbal/nutritional [...] missed any doses of warfarin. Jonathan Hawkins [facility] Clinical Pharmacist, Pharmacy Anticoagulation Clinic Pharmacy Anticoagulation Clinic Pager: [phone]. Allergies As of Date: 01/24/2025 (No Known [...] directed for weight gain, fluid retention. - poknqadnd-btsvlo-glblxx ne-scop () 16.2-0.1037 -0.0194 mg per tablet [...] [E78.00] 1 (more content not included)... Normal [facility] 01-17-2025 CNPN Telephone (PHAMTE) BESSY VALVERDE ([id number]) 1945 M Date Time Provider Department 01/17/25 JONATHAN HAWKINS During your visit today, we recorded the following information about you: Jonathan Hawkins [facility] 01/17/2025 10:34 AM Signed [facility] Ambulatory Pharmacy Anticoagulation Clinic Anticoagulation Episode Summary Anticoagulation Care Providers Provider Role Specialty Phone number George Mata MD [facility] Internal Medicine [phone] Bessy Valverde is a 79 year old [...] missed any doses of warfarin. Jonathan Hawkins [facility] Clinical Pharmacist, Pharmacy Anticoagulation Clinic Pharmacy Anticoagulation Clinic Pager: [phone]. Allergies As of Date: 01/17/2025 (No Known [...] directed for weight gain, fluid retention. - cuqvscsgq-awyhls-iukfzo ne-scop () 16.2-0.1037 -0.0194 mg per tablet [...] [Z12.11] 07/11/2010 (more content not included)... Normal [facility] CNOVon 01-10-2025 CNOV Office Visit (INTMWS ) BESSY VALVERDE ([id number]) 1945 M Date Time Provider Department 01/10/25 11:20 AM GEORGE MATA INTMWS During your visit today, we recorded the following information about you: Pulse Blood pressure Weight 68/minute 110/62 80.9 kg George Mata MD 01/10/2025 1:17 PM Signed This note was created using [employer]. Subjective Patient presents with: Hospital F/U Bessy Valverde is a 79 year old male here with . Recording using [employer] software for draft documentation of the visit was discussed with the patient/authorized mechanical service representative; all questions welcomed and answered. 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 bkbgejdan-oullqj-ygiexq ne-scop () 16.2-0.1037 -0.0194 mg per tablet [...] 98% B (more content not included)... Normal [facility] 01-10-2025 [facility] ([facility]TE) BESSY VALVERDE ([id number]) 1945 M Date Time Provider Department 01/10/25 JONATHAN HAWKINS During your visit today, we recorded the following information about you: Jonathan Hawkins RP 01/10/2025 4:25 PM Signed Melanie Scruggs [facility] [place] 01/10/25 4:13 PM Note Pt. called stated pt. INR was 2.3 today. Pt. is having a procedure on 01/12/25. Pt. worried his procedure will not happen if his INR not under 2.0. Pt. requestig a return call at [phone] Jonathan Hawkins RPh 01/10/2025 4:25 PM Signed [facility] Ambulatory Pharmacy Anticoagulation Clinic Anticoagulation Episode Summary Anticoagulation Care Providers Provider Role Specialty Phone number George Mata MD [facility] Internal Medicine [phone] Bessy Valverde is a 79 year old [...] result of 2.3 is therapeutic Was in [facility] 12/31-01/04 for elevated HR and A fib [...] missed any doses of warfarin. Jonathan Hawkins [facility] Clinical Pharmacist, Pharmacy Anticoagulation Clinic Pharmacy Anticoagulation Clinic Pager: [phone]. Allergies As of Date: 01/10/2025 (No Known [...] directed for weight gain, fluid retention. - mrqlgblda-dfuhdh-uidmzb ne-scop () 16.2-0.1037 -0.0194 mg per tablet [...] Noted Resolv (more content not included)... Normal [facility] .GFRon 01-09-2025 Estimated Glomerular Filtration Rate 43 ml/min/1.73sqm Normal [facility] Comment on above: Result Comment: Stages of [...] Performed By: #### PRO CLEMENTINA BMP #### [address] [address] BMPon 01-09-2025 BUN/Creatinine Ratio 22 ratio Normal 7-27 [facility] Comment on above: Performed By: #### PRO CLEMENTINA, BMP #### [address] [address] Calcium [Mass/Vol] 9.1 mg/dL Normal 8.4-10.2 [facility] Comment on above: Performed By: #### Camille GOODSON PRO, BMP #### [address] [address] Chloride [Moles/Vol] 102 mmol/L Normal 98-107 [facility] Comment on above: Performed By: #### Camille GOODSON PRO, BMP #### [address] [address] CO2 [Moles/Vol] 28 mmol/L Normal 23-31 [facility] Comment on above: Performed By: #### PRO CLEMENTINA, BMP #### [address] [address] Creatinine [Mass/Vol] 1.62 mg/dL High 0.67-1.17 [facility] Comment on above: Performed By: #### PRO CLEMENTINA, BMP #### [address] [address] Electrolyte Balance 9.0 mEq/L Normal 4.0-15.0 [facility] Comment on above: Performed By: #### PRO CLEMENTINA, BMP #### [address] [address] Glucose [Mass/Vol] 219 mg/dL High 83-110 [facility] Comment on above: Performed By: #### PRO CLEMENTINA, BMP #### [address] [address] Potassium [Moles/Vol] 3.8 mmol/L Normal 3.5-5.1 [facility] Comment on above: Performed By: #### PRO CLEMENTINA, BMP #### [address] [address] Sodium [Moles/Vol] 139 mmol/L Normal 136-145 [facility] Comment on above: Performed By: #### PRO CLEMENTINA, BMP #### [address] [address] Urea nitrogen [Mass/Vol] 35 mg/dL High 7-18 [facility] Comment on above: Performed By: #### Camille GOODSON PRO, BMP #### [address] [address] LABORATORYOrdered By: SYSTEM SYSTEM on 01-09-2025 Calcium [...] Comment on above: Interpretive Data: Reid pacheco [employer] (CHEST, 1992, 102:312S-25S) [...] By: #### G FR, PRO, BMP #### [facility] [address] [place], [place] [address] PT International Ratio 2.8 Normal [facility] Comment on above: Result Comment: [employer] (CHEST, 1992, 102:312S-25S) recommended therapeutic range for oral anticoagulant therapy is: LOW RISK: Prophylaxis of venous thrombosis INR: 2.0-3.0 Treatment of pulmonary embolism 2.0-3.0 Prevention of systemic embolism 2.0-3.0 HIGH RISK: Mechanical prosthetic valves 2.5-3.5 Performed By: #### G FR, PRO, BMP #### [facility] [address] [place], [place] [address] [facility] 01-05-2025 CNPN Telephone (INTMWS) BESSY VALVERDE ([id number]) 1945 M Date Time Provider Department 01/05/25 GEORGE MATA INTWS During your visit today, we recorded the following information about you: Sandi Denton, RN 01/05/2025 3:22 PM Signed TRANSITION CARE MANAGEMENT (TCM) INITIAL CONTACT Personal Counselor Outreach Provider Action/FYI: 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 Patient has to have skin cancer removed from his face in a couple of weeks. Patient was admitted to [place] on Thursday12/31/2024 Initial contact with patient post discharge, spoke to spouse. Patient identified by name and . TRANSITION CARE MANAGEMENT INITIAL OUTREACH DOCUMENTATION: No data to display SUMMARY: -Pt discharged from [facility] on 01/04[facility]2025. -Admitted for: Atrial Fibrillation Do [...] Update [1234] Prescriptions as of 01/05/2025 - otfnfzwcl-efpbso-jllrhc ne-scop () 16.2-0.1037 -0.0194 mg per tablet [...] 09/09/2017 Controlle (more content not included)... Normal [facility] .Auto Diffon 01-04-2025 Basophil, Absolute 0.0 10 3/mcL Normal 0.0-0.3 [facility] Comment on above: Performed By: #### T ROPHS, ADIFF, CMP, PBNP, GFR, PRO, CBC, ANEU, MDW #### [address] [address] Basophils/100 WBC (Bld) 0.4 % Normal 0.0-2.5 [facility] Comment on above: Performed By: #### T ROPHS, ADIFF, CMP, PBNP, GFR, PRO, CBC, ANEU, MDW #### [address] [address] Eosinophil, Absolute 0.2 10 3/mcL Normal 0.0-0.7 [facility] Comment on above: Performed By: #### T ROPHS, ADIFF, CMP, PBNP, GFR, PRO, CBC, ANEU, MDW #### [address] [address] Eosinophils/100 WBC (Bld) 2.7 % Normal 0.0-6.0 [facility] Comment on above: Performed By: #### T ROPHS, ADIFF, CMP, PBNP, GFR, PRO, CBC, ANEU, MDW #### [address] [address] Lymphocyte, Absolute 0.8 10 3/mcL Low 0.9-4.3 [facility] Comment on above: Performed By: #### T ROPHS, ADIFF, CMP, PBNP, GFR, PRO, CBC, ANEU, MDW #### [address] [address] Lymphocytes/100 WBC (Bld) 14.0 % Low 20.0-40.0 [facility] Comment on above: Performed By: #### T ROPHS, ADIFF, CMP, PBNP, GFR, PRO, CBC, ANEU, MDW #### [address] [address] Monocyte, Absolute 0.7 10 3/mcL Normal 0.1-1.4 [facility] Comment on above: Performed By: #### T ROPHS, ADIFF, CMP, PBNP, GFR, PRO, CBC, LANE FERNANDEZ #### [address] [address] Monocytes/100 WBC (Bld) 10.8 % Normal 2.0-13.0 [facility] Comment on above: Performed By: #### T ROPHS, ADIFF, CMP, PBNP, GFR, PRO, CBC, ANEULANE #### [address] [address] Neutrophils/100 WBC (Bld) 72.1 % Normal 50.0-75.0 [facility] Comment on above: Performed By: #### T ROBHS, ADIFF, CMP, PBNP, GFR, PRO, CBC, LANE FERNANDEZ #### [address] [address] .GFRon 01-04-2025 Estimated Glomerular Filtration Rate 45 ml/min/1.73sqm Normal [facility] Comment on above: Result Comment: [...] PBNP, GFR, PRO, CBC, LANE FERNANDEZ #### [address] [address] .NEUABSon 01-04-2025 Neutrophil, Absolute 4.4 10 3/mcL Normal 2.3-8.1 [facility] Comment on above: Performed By: #### T ROPHS, ADIFF, CMP, PBNP, GFR, PRO, CBC, LANE FERNANDEZ #### [address] [address] BMPon 01-04-2025 BUN/Creatinine Ratio 23.9 ratio High 10.0-22.0 [facility] Comment on above: Performed By: #### T ROPHS, ADIFF, CMP, PBNP, GFR, PRO, CBC, LANE FERNANDEZ #### [address] [address] Calcium [Mass/Vol] 9.3 mg/dL Normal 8.7-10.[address] [facility] Comment on above: Performed By: #### T ROPHS, ADIFF, CMP, PBNP, GFR, PRO, CBC, LANE FERNANDEZ #### [address] [address] Chloride [Moles/Vol] 101 mmol/L Normal 98-110 [facility] Comment on above: Performed By: #### T ROPHS, ADIFF, CMP, PBNP, GFR, PRO, CBC, LANE FERNANDEZ #### [address] [address] CO2 [Moles/Vol] 26 mmol/L Normal 22-32 [facility] Comment on above: Performed By: #### T ROPHS, ADIFF, CMP, PBNP, GFR, PRO, CBC, LANE FERNANDEZ #### [address] [address] Creatinine [Mass/Vol] 1.55 mg/dL High 0.60-1.40 [facility] Comment on above: Result Comment: Test ing performed on InVitae analyzer using enzymatic creatinine methodology. Performed By: #### T ROPHS, ADIFF, CMP, PBNP, GFR, PRO, CBC, LANE FERNANDEZ #### [address] [address] Electrolyte Balance 9.0 mEq/L Normal 4.0-15.0 [facility] Comment on above: Performed By: #### T ROPHS, ADIFF, CMP, PBNP, GFR, PRO, CBC, LANE FERNANDEZ #### [place] [id number] Glucose [Mass/Vol] 104 mg/dL Normal 82-[address] [facility] Comment on above: Performed By: #### T EVELYN, ADIFF, CMP, PBNP, GFR, PRO, CBC, LANE FERNANDEZ #### [address] [address] Potassium [Moles/Vol] 4.3 mmol/L Normal 3.5-5.0 [facility] Comment on above: Performed By: #### T ROPHS, ADIFF, CMP, PBNP, GFR, PRO, CBC, LANE FERNANDEZ #### [address] [address] Sodium [Moles/Vol] 136 mmol/L Normal 136-[address] [facility] Comment on above: Performed By: #### T EVELYN, ADIFF, CMP, PBNP, GFR, PRO, CBCJIM MDW #### [place] [id number] Urea nitrogen [Mass/Vol] 37.0 mg/dL High 8.0-22.0 [facility] Comment on above: Performed By: #### T ROBHS, ADIFF, CMP, PBNP, GFR, PRO, CBCJIM MDW #### [place] [id number] CBCon 01-04-2025 Erythrocyte distribution width (RBC) [Ratio] 16.7 % High 11.5-15.5 [facility] Comment on above: Performed By: #### T ROPHS, ADIFF, CMP, PBNP, GFR, PRO, CBCJIM MDW #### [place] [id number] Hematocrit (Bld) [Volume fraction] 30.2 % Low 40.0-52.0 [facility] Comment on above: Performed By: #### T ROPHS, ADIFF, CMP, PBNP, GFR, PRO, CBCJIM MDW #### [place] [id number] Hgb 10.2 G/dL Low 13.0-17.5 [facility] Comment on above: Performed By: #### T ROPHS, ADIFF, CMP, PBNP, GFR, PRO, CBC, LANE FERNANDEZ #### [place] [id number] MCH (RBC) [Entitic mass] 28.8 pg Normal 27.0-33.0 [facility] Comment on above: Performed By: #### T ROPHS, ADIFF, CMP, PBNP, GFR, PRO, CBC, LANE FERNANDEZ #### [place] [id number] MCHC 33.8 G/dL Normal 32.0-36.0 [facility] Comment on above: Performed By: #### T ROPHS, ADIFF, CMP, PBNP, GFR, PRO, CBC, LANE FERNANDEZ #### [place] [id number] MCV (RBC) [Entitic vol] 85.2 fL Normal 81.0-100.0 [facility] Comment on above: Performed By: #### T ROPHS, ADIFF, CMP, PBNP, GFR, PRO, CBC, LANE FERNANDEZ #### [place] [address] Platelet 106 10 3/mcL Low 150-450 [facility] Comment on above: Performed By: #### T ROPHS, ADIFF, CMP, PBNP, GFR, PRO, CBC, LANE FERNANDEZ #### [place] [address] Platelet mean volume (Bld) [Entitic vol] 9.4 fL Normal 6.4-10.5 [facility] Comment on above: Performed By: #### T ROPHS, ADIFF, CMP, PBNP, GFR, PRO, CBC, LANE FERNANDEZ #### [place] [address] RBC 3.55 10 6/mcL Low 4.50-6.00 [facility] Comment on above: Performed By: #### T ROPHS, ADIFF, CMP, PBNP, GFR, PRO, CBC, LANE FERNANDEZ #### [place] [id number] WBC 6.1 10 3/mcL Normal 4.5-10.8 [facility] Comment on above: Performed By: #### T ROPHS, ADIFF, CMP, PBNP, GFR, PRO, CBC, ANEU, MDW #### [place] [address] LABORATORYOrdered By: SYSTEM SYSTEM on 01-04-2025 Basophils [...] above: Interpretive Data: T esting performed on [employer] CH analyzer using enzymatic creatinine methodology. Electrolyte [...] Comment on above: Interpretive Data: Reid pacheco [employer] (CHEST, 1991, 102:312S-25S) [...] 01-04-2025 Magnesium [Mass/Vol] 2.0 mg/dL Normal 1.6-2.4 [facility] Comment on above: Performed By: #### T ROPHS, ADIFF, CMP, PBNP, GFR, PRO, CBC, ANEU, MDW #### [address] [address] PROon 01-04-2025 INR Coag (PPP) [Relative time] 2.4 {INR} Normal [facility] Comment on above: Order Comment: order ed secondary to warfarin order Result Comment: [employer] (CHEST, 1991, 102:312S-25S) recommended therapeutic range for oral anticoagulant therapy is: LOW RISK: Prophylaxis of venous thrombosis INR: 2.0-3.0 Treatment of pulmonary embolism 2.0-3.0 Prevention of systemic embolism 2.0-3.0 HIGH RISK: Mechanical prosthetic valves 2.5-3.5 Performed By: #### C BC, GFR, ADIFF, ANEU, PRO, MG, BMP #### [address] [address] PT Coag (PPP) [Time] 27.3 s High 9.0-14.4 [facility] Comment on above: Order Comment: order ed secondary to warfarin order Result Comment: Effe ctive 02/22/08, Protime results may be affected by some antibiotics (i.e. Ciprofloxacin, Azithromycin, Bactrim) which may potentiate the action of oral anticoagulants, with further increases in Protime/INR. Performed By: #### C BC, GFR, ADIFF, ANEU, PRO, MG, BMP #### [address] [address] .Auto Diffon 01-03-2025 Basophil, Absolute 0.0 10 3/mcL Normal 0.0-0.3 [facility] Comment on above: Performed By: #### T ROPHS, ADIFF, CMP, PBNP, GFR, PRO, CBC, ANEU, W #### [place] [id number] Basophils/100 WBC (Bld) 0.6 % Normal 0.0-2.5 [facility] Comment on above: Performed By: #### T ROPHS, ADIFF, CMP, PBNP, GFR, PRO, CBC, LANE FERNANDEZ #### [address] [address] Eosinophil, Absolute 0.2 10 3/mcL Normal 0.0-0.7 [facility] Comment on above: Performed By: #### T ROPHS, ADIFF, CMP, PBNP, GFR, PRO, CBC, LANE FERNANDEZ #### [address] [address] Eosinophils/100 WBC (Bld) 2.5 % Normal 0.0-6.0 [facility] Comment on above: Performed By: #### T ROPHS, ADIFF, CMP, PBNP, GFR, PRO, CBC, ANEULANE #### [place] [id number] Lymphocyte, Absolute 1.0 10 3/mcL Normal 0.9-4.3 [facility] Comment on above: Performed By: #### T ROPHS, ADIFF, CMP, PBNP, GFR, PRO, CBC, ANEU, MDW #### [address] [address] Lymphocytes/100 WBC (Bld) 15.9 % Low 20.0-40.0 [facility] Comment on above: Performed By: #### T ROPHS, ADIFF, CMP, PBNP, GFR, PRO, CBC, ANEU, MDW #### [address] [address] Monocyte, Absolute 0.7 10 3/mcL Normal 0.1-1.4 [facility] Comment on above: Performed By: #### T ROPHS, ADIFF, CMP, PBNP, GFR, PRO, CBC, ANEU, W #### [address] [address] Monocytes/100 WBC (Bld) 10.3 % Normal 2.0-13.0 [facility] Comment on above: Performed By: #### T ROPHS, ADIFF, CMP, PBNP, GFR, PRO, CBC, ANEU, LANE #### [address] [address] Neutrophils/100 WBC (Bld) 70.7 % Normal 50.0-75.0 [facility] Comment on above: Performed By: #### T ROPHS, ADIFF, CMP, PBNP, GFR, PRO, CBC, ANEU, LANE #### [address] [address] .GFRon 01-03-2025 Estimated Glomerular Filtration Rate 45 ml/min/1.73sqm Normal [facility] Comment on above: Result Comment: [...] CMP, PBNP, GFR, PRO, CBCJIM MDW #### [place] [address] Estimated Glomerular Filtration Rate 41 ml/min/1.73sqm Normal [facility] Comment on above: Result Comment: [...] PBNP, GFR, PRO, CBC, LANE FERNANDEZ #### [address] [address] .NEUABSon 01-03-2025 Neutrophil, Absolute 4.5 10 3/mcL Normal 2.3-8.1 [facility] Comment on above: Performed By: #### T EVELYN, ADIFF, CMP, PBNP, GFR, PRO, CBC, LANE FERNANDEZ #### [address] [address] BMPon 01-03-2025 BUN/Creatinine Ratio 27.3 ratio High 10.0-22.0 [facility] Comment on above: Performed By: #### T EVELYN, ADIFF, CMP, PBNP, GFR, PRO, CBC, LANE FERNANDEZ #### [place] [address] Calcium [Mass/Vol] 8.7 mg/dL Normal 8.7-10.[address] [facility] Comment on above: Performed By: #### T EVELYN, ADIFF, CMP, PBNP, GFR, PRO, CBC, LANE FERNANDEZ #### [address] [address] Chloride [Moles/Vol] 102 mmol/L Normal 98-110 [facility] Comment on above: Performed By: #### T EVELYN, ADIFF, CMP, PBNP, GFR, PRO, CBC, LANE FERNANDEZ #### [address] [address] CO2 [Moles/Vol] 27 mmol/L Normal 22-32 [facility] Comment on above: Performed By: #### T EVELYN, ADIFF, CMP, PBNP, GFR, PRO, CBC, LANE FERNANDEZ #### [address] [address] Creatinine [Mass/Vol] 1.54 mg/dL High 0.60-1.40 [facility] Comment on above: Result Comment: Test ing performed on InVitae analyzer using enzymatic creatinine methodology. Performed By: #### T EVELYN, ADIFF, CMP, PBNP, GFR, PRO, CBC, LANE FERNANDEZ #### [address] [address] Electrolyte Balance 9.0 mEq/L Normal 4.0-15.0 [facility] Comment on above: Performed By: #### T EVELYN, ADIFF, CMP, PBNP, GFR, PRO, CBC, LANE FERNANDEZ #### [address] [address] Glucose [Mass/Vol] 193 mg/dL High 82-[address] [facility] Comment on above: Performed By: #### T EVELYN, ADIFF, CMP, PBNP, GFR, PRO, CBC, LANE FERNANDEZ #### [address] [address] Potassium [Moles/Vol] 4.0 mmol/L Normal 3.5-5.0 [facility] Comment on above: Performed By: #### T EVELYN, ADIFF, CMP, PBNP, GFR, PRO, CBC, LANE FERNADNEZ #### [address] [address] Sodium [Moles/Vol] 138 mmol/L Normal 136-[address] [facility] Comment on above: Performed By: #### T ROPHS, ADIFF, CMP, PBNP, GFR, PRO, CBC, LANE FERNANDEZ #### [address] [address] Urea nitrogen [Mass/Vol] 42.0 mg/dL High 8.0-22.0 [facility] Comment on above: Performed By: #### T ROPHS, ADIFF, CMP, PBNP, GFR, PRO, CBC, LANE FERNANDEZ #### [address] [address] BUN/Creatinine Ratio 26.5 ratio High 10.0-22.0 [facility] Comment on above: Performed By: #### T ROPHS, ADIFF, CMP, PBNP, GFR, PRO, CBC, LANE FERNANDEZ #### [address] [address] Calcium [Mass/Vol] 9.0 mg/dL Normal 8.7-10.[address] [facility] Comment on above: Performed By: #### T ROPHS, ADIFF, CMP, PBNP, GFR, PRO, CBC, LANE FERNANDEZ #### [address] [address] Chloride [Moles/Vol] 103 mmol/L Normal 98-110 [facility] Comment on above: Performed By: #### T ROPHS, ADIFF, CMP, PBNP, GFR, PRO, CBC, LANE FERNANDEZ #### [address] [address] CO2 [Moles/Vol] 26 mmol/L Normal 22-32 [facility] Comment on above: Performed By: #### T ROPHS, ADIFF, CMP, PBNP, GFR, PRO, CBC, LANE FERNANDEZ #### [address] [address] Creatinine [Mass/Vol] 1.66 mg/dL High 0.60-1.40 [facility] Comment on above: Result Comment: Test ing performed on InVitae analyzer using enzymatic creatinine methodology. Performed By: #### T ROPHS, ADIFF, CMP, PBNP, GFR, PRO, CBC, LANE FERNANDEZ #### [address] [address] Electrolyte Balance 9.0 mEq/L Normal 4.0-15.0 [facility] Comment on above: Performed By: #### T EVELYN, ADIFF, CMP, PBNP, GFR, PRO, CBCJIM MDW #### [address] [address] Glucose [Mass/Vol] 117 mg/dL High 82-[address] [facility] Comment on above: Performed By: #### T ROPHS, ADIFF, CMP, PBNP, GFR, PRO, CBCJIM MDW #### [address] [address] Potassium [Moles/Vol] 4.1 mmol/L Normal 3.5-5.0 [facility] Comment on above: Performed By: #### T EVELYN, ADIFF, CMP, PBNP, GFR, PRO, CBCJIM MDW #### [place] [id number] Sodium [Moles/Vol] 138 mmol/L Normal 136-[address] [facility] Comment on above: Performed By: #### T EVELYN, ADIFF, CMP, PBNP, GFR, PRO, JIM STARK MDW #### [place] [id number] Urea nitrogen [Mass/Vol] 44.0 mg/dL High 8.0-22.0 [facility] Comment on above: Performed By: #### T EVELYN, ADIFF, CMP, PBNP, GFR, PRO, CBCJIM MDW #### [address] [address] CBCon 01-03-2025 Erythrocyte distribution width (RBC) [Ratio] 16.6 % High 11.5-15.5 [facility] Comment on above: Performed By: #### T ROPHS, ADIFF, CMP, PBNP, GFR, PRO, CBCJIM MDW #### [address] [address] Hematocrit (Bld) [Volume fraction] 31.4 % Low 40.0-52.0 [facility] Comment on above: Performed By: #### T ROPHS, ADIFF, CMP, PBNP, GFR, PRO, CBC, LANE FERNANDEZ #### [place] [id number] Hgb 10.7 G/dL Low 13.0-17.5 [facility] Comment on above: Performed By: #### T ROPHS, ADIFF, CMP, PBNP, GFR, PRO, CBC, LANE FERNANDEZ #### [place] [address] MCH (RBC) [Entitic mass] 29.0 pg Normal 27.0-33.0 [facility] Comment on above: Performed By: #### T ROPHS, ADIFF, CMP, PBNP, GFR, PRO, CBC, LANE FERNANDEZ #### [place] [address] MCHC 34.0 G/dL Normal 32.0-36.0 [facility] Comment on above: Performed By: #### T ROPHS, ADIFF, CMP, PBNP, GFR, PRO, CBC, LANE FERNANDEZ #### [place] [address] MCV (RBC) [Entitic vol] 85.2 fL Normal 81.0-100.0 [facility] Comment on above: Performed By: #### T ROPHS, ADIFF, CMP, PBNP, GFR, PRO, CBC, LANE FERNANDEZ #### [place] [address] Platelet 114 10 3/mcL Low 150-450 [facility] Comment on above: Performed By: #### T ROPHS, ADIFF, CMP, PBNP, GFR, PRO, CBC, L[facility] #### [place] [address] Platelet mean volume (Bld) [Entitic vol] 8.6 fL Normal 6.4-10.5 [facility] Comment on above: Performed By: #### T ROPHS, ADIFF, CMP, PBNP, GFR, PRO, CBC, L[facility] #### [address] [place] [address] RBC 3.68 10 6/mcL Low 4.50-6.00 [facility] Comment on above: Performed By: #### T DANIEL RIVAS, CMP, PBNP, GFR, PRO, CBC, [facility] #### [facility] [address] [place] [id number] WBC 6.4 10 3/mcL Normal 4.5-10.8 [facility] Comment on above: Performed By: #### T DANIEL RIVAS, CMP, PBNP, GFR, PRO, CBC, LANE FERNANDEZ #### [place] [id number] [place] [id number] LABORATORYOrdered By: SYSTEM SYSTEM on 01-03-2025 Calcium [...] above: Interpretive Data: T esting performed on InVitae analyzer using enzymatic creatinine methodology. Electrolyte Balance [...] above: Interpretive Data: T esting performed on [employer] CH analyzer using enzymatic creatinine methodology. Electrolyte [...] Comment on above: Interpretive Data: Reid pacheco [employer] (CHEST, 1991, 102:312S-25S) [...] 01-03-2025 Magnesium [Mass/Vol] 2.1 mg/dL Normal 1.6-2.4 [facility] Comment on above: Performed By: #### T DANIEL RIVAS, CMP, PBNP, GFR, PRO, CBC, ANEU, MDW #### [address] [address] PROon 01-03-2025 INR Coag (PPP) [Relative time] 1.8 {INR} Normal [facility] Comment on above: Order Comment: order ed secondary to warfarin order Result Comment: [employer] (CHEST, 1991, 102:312S-25S) recommended therapeutic range for oral anticoagulant therapy is: LOW RISK: Prophylaxis of venous thrombosis INR: 2.0-3.0 Treatment of pulmonary embolism 2.0-3.0 Prevention of systemic embolism 2.0-3.0 HIGH RISK: Mechanical prosthetic valves 2.5-3.5 Performed By: #### T SYDNEY RIVASIFF, CMP, PBNP, GFR, PRO, CBC, ANEULANE #### [address] [address] PT Coag (PPP) [Time] 20.7 s High 9.0-14.4 [facility] Comment on above: Order Comment: order ed secondary to warfarin order Result Comment: Effe ctive 02/22/08, Protime results may be affected by some antibiotics (i.e. Ciprofloxacin, Azithromycin, Bactrim) which may potentiate the action of oral anticoagulants, with further increases in Protime/INR. Performed By: #### T ROPHS, ADIFF, CMP, PBNP, GFR, PRO, CBC, LANE FERNANDEZ #### [address] [address] .Auto Diffon 01-02-2025 Basophil, Absolute 0.0 10 3/mcL Normal 0.0-0.3 [facility] Comment on above: Performed By: #### T ROPHS, ADIFF, CMP, PBNP, GFR, PRO, CBC, ANEULANE #### [address] [address] Basophils/100 WBC (Bld) 0.6 % Normal 0.0-2.5 [facility] Comment on above: Performed By: #### T ROPHS, ADIFF, CMP, PBNP, GFR, PRO, CBC, ANEU, LANE #### [address] [address] Eosinophil, Absolute 0.2 10 3/mcL Normal 0.0-0.7 [facility] Comment on above: Performed By: #### T ROPHS, ADIFF, CMP, PBNP, GFR, PRO, CBC, ANEULANE #### [address] [address] Eosinophils/100 WBC (Bld) 2.4 % Normal 0.0-6.0 [facility] Comment on above: Performed By: #### T ROPHS, ADIFF, CMP, PBNP, GFR, PRO, CBC, ANEULANE #### [address] [address] Lymphocyte, Absolute 0.9 10 3/mcL Normal 0.9-4.3 [facility] Comment on above: Performed By: #### T ROPHS, ADIFF, CMP, PBNP, GFR, PRO, CBC, ANEULANE #### [address] [address] Lymphocytes/100 WBC (Bld) 12.6 % Low 20.0-40.0 [facility] Comment on above: Performed By: #### T ROPHS, ADIFF, CMP, PBNP, GFR, PRO, CBC, ANEU, LANE #### [address] [address] Monocyte, Absolute 0.8 10 3/mcL Normal 0.1-1.4 [facility] Comment on above: Performed By: #### T ROPHS, ADIFF, CMP, PBNP, GFR, PRO, CBC, ANEU, LANE #### [address] [address] Monocytes/100 WBC (Bld) 10.3 % Normal 2.0-13.0 [facility] Comment on above: Performed By: #### T ROPHS, ADIFF, CMP, PBNP, GFR, PRO, CBC, ANEULANE #### [address] [address] Neutrophils/100 WBC (Bld) 74.1 % Normal 50.0-75.0 [facility] Comment on above: Performed By: #### T ROPHS, ADIFF, CMP, PBNP, GFR, PRO, CBC, ANEU, LANE #### [address] [address] .GFRon 01-02-2025 Estimated Glomerular Filtration Rate 51 ml/min/1.73sqm Normal [facility] Comment on above: Result Comment: [...] CMP, PBNP, GFR, PRO, CBC, ANEULANE #### [address] [address] .NEUABSon 01-02-2025 Neutrophil, Absolute 5.4 10 3/mcL Normal 2.3-8.1 [facility] Comment on above: Performed By: #### T EVELYN, ADIFF, CMP, PBNP, GFR, PRO, CBC, LANE FERNANDEZ #### [address] [address] BMPon 01-02-2025 BUN/Creatinine Ratio 28.1 ratio High 10.0-22.0 [facility] Comment on above: Performed By: #### T ROPHS, ADIFF, CMP, PBNP, GFR, PRO, CBC, LANE FERNANDEZ #### [address] [address] Calcium [Mass/Vol] 9.4 mg/dL Normal 8.7-10.[address] [facility] Comment on above: Performed By: #### T EVELYN, ADIFF, CMP, PBNP, GFR, PRO, CBC, LANE FERNANDEZ #### [address] [address] Chloride [Moles/Vol] 104 mmol/L Normal 98-110 [facility] Comment on above: Performed By: #### T ROPHS, ADIFF, CMP, PBNP, GFR, PRO, CBC, ANEULANE #### [address] [address] CO2 [Moles/Vol] 28 mmol/L Normal 22-32 [facility] Comment on above: Performed By: #### T ROPHS, ADIFF, CMP, PBNP, GFR, PRO, CBC, LANE FERNANDEZ #### [address] [address] Creatinine [Mass/Vol] 1.39 mg/dL Normal 0.60-1.40 [facility] Comment on above: Result Comment: Test ing performed on InVitae analyzer using enzymatic creatinine methodology. Performed By: #### T EVELYN, ADIFF, CMP, PBNP, GFR, PRO, CBCJIM MDW #### [address] [address] Electrolyte Balance 8.0 mEq/L Normal 4.0-15.0 [facility] Comment on above: Performed By: #### T ROBHS, ADIFF, CMP, PBNP, GFR, PRO, CBC, LANE FERNANDEZ #### [address] [address] Glucose [Mass/Vol] 104 mg/dL Normal 82-[address] [facility] Comment on above: Performed By: #### T EVELYN, ADIFF, CMP, PBNP, GFR, PRO, CBCJIM MDW #### [place] [id number] Potassium [Moles/Vol] 4.1 mmol/L Normal 3.5-5.0 [facility] Comment on above: Performed By: #### T EVELYN, ADIFF, CMP, PBNP, GFR, PRO, CBCJIM MDW #### [address] [address] Sodium [Moles/Vol] 140 mmol/L Normal 136-[address] [facility] Comment on above: Performed By: #### T EVELYN, ADIFF, CMP, PBNP, GFR, PRO, CBCJIM MDW #### [address] [address] Urea nitrogen [Mass/Vol] 39.0 mg/dL High 8.0-22.0 [facility] Comment on above: Performed By: #### T ROPHS, ADIFF, CMP, PBNP, GFR, PRO, CBCJIM MDW #### [address] [address] CBCon 01-02-2025 Erythrocyte distribution width (RBC) [Ratio] 16.9 % High 11.5-15.5 [facility] Comment on above: Performed By: #### T ROPHS, ADIFF, CMP, PBNP, GFR, PRO, CBC, LANE FERNANDEZ #### [place] [address] Hematocrit (Bld) [Volume fraction] 32.0 % Low 40.0-52.0 [facility] Comment on above: Performed By: #### T ROPHS, ADIFF, CMP, PBNP, GFR, PRO, CBC, LANE FERNANDEZ #### [place] [id number] Hgb 10.8 G/dL Low 13.0-17.5 [facility] Comment on above: Performed By: #### T ROPHS, ADIFF, CMP, PBNP, GFR, PRO, CBC, LANE FERNANDEZ #### [place] [address] MCH (RBC) [Entitic mass] 28.8 pg Normal 27.0-33.0 [facility] Comment on above: Performed By: #### T ROPHS, ADIFF, CMP, PBNP, GFR, PRO, CBC, LANE FERNANDEZ #### [place] [id number] MCHC 33.8 G/dL Normal 32.0-36.0 [facility] Comment on above: Performed By: #### T ROPHS, ADIFF, CMP, PBNP, GFR, PRO, CBC, LANE FERNANDEZ #### [place] [address] MCV (RBC) [Entitic vol] 85.2 fL Normal 81.0-100.0 [facility] Comment on above: Performed By: #### T ROPHS, ADIFF, CMP, PBNP, GFR, PRO, CBC, LANE FERNANDEZ #### [place] [id number] Platelet 121 10 3/mcL Low 150-450 [facility] Comment on above: Performed By: #### T ROPHS, ADIFF, CMP, PBNP, GFR, PRO, CBC, LANE FERNANDEZ #### [place] [address] Platelet mean volume (Bld) [Entitic vol] 8.2 fL Normal 6.4-10.5 [facility] Comment on above: Performed By: #### T EVELYN, DANIEL, CMP, PBNP, GFR, PRO, CBC, LANE FERNANDEZ #### [place] [address] RBC 3.76 10 6/mcL Low 4.50-6.00 [facility] Comment on above: Performed By: #### T EVELYN, DANIEL, CMP, PBNP, GFR, PRO, CBC, LANE FERNANDEZ #### [place] [address] WBC 7.3 10 3/mcL Normal 4.5-10.8 [facility] Comment on above: Performed By: #### T EVELYN, DANIEL, CMP, PBNP, GFR, PRO, CBC, LANE FERNANDEZ #### [place] [address] LABORATORYOrdered By: SYSTEM SYSTEM on 01-02-2025 Basophils [...] s High 9.0 - 1 4.4 seconds [facility] Comment on above: Interpretive Data: E ffective 02/22/08, Protime results may be affected by some antibiotics (i.e. Ciprofloxacin, Azithromycin, Bactrim) which may potentiate the action of oral anticoagulants, with further increases in Protime/INR. PT International Ratio 1.8 ratio Invalid Interpretation Code [facility] Comment on above: Interpretive Data: Reid pacheco [employer] (CHEST, 1991, 102:312S-25S) [...] 01-02-2025 Magnesium [Mass/Vol] 2.1 mg/dL Normal 1.6-2.4 [facility] Comment on above: Performed By: #### T DANIEL RIVAS, DAMIAN, PBNP, GFR, PRO, CBC, LANE FERNANDEZ #### [facility] [address] [place] [id number] PROon 01-02-2025 INR Coag (PPP) [Relative time] 1.8 {INR} Normal [facility] Comment on above: Order Comment: order ed secondary to warfarin order Result Comment: [employer] (CHEST, 1992, 102:312S-25S) recommended therapeutic range for oral anticoagulant therapy is: LOW RISK: Prophylaxis of venous thrombosis INR: 2.0-3.0 Treatment of pulmonary embolism 2.0-3.0 Prevention of systemic embolism 2.0-3.0 HIGH RISK: Mechanical prosthetic valves 2.5-3.5 Performed By: #### T DANIEL RIVAS, DAMIAN, PBNP, GFR, PRO, CBC, LANE FERNANDEZ #### [address] [address] PT Coag (PPP) [Time] 21.2 s High 9.0-14.4 [facility] Comment on above: Order Comment: order ed secondary to warfarin order Result Comment: Effe ctive 02/22/08, Protime results may be affected by some antibiotics (i.e. Ciprofloxacin, Azithromycin, Bactrim) which may potentiate the action of oral anticoagulants, with further increases in Protime/INR. Performed By: #### T DANIEL RIVAS, DAMIAN, PBNP, GFR, PRO, CBC, LANE FERNANDEZ #### [address] [address] .Auto Diffon 01-01-2025 Basophil, Absolute 0.1 10 3/mcL Normal 0.0-0.3 [facility] Comment on above: Performed By: #### T DANIEL RIVAS, CMP, PBNP, GFR, PRO, CBC, LANE FERNANDEZ #### [address] [address] Basophils/100 WBC (Bld) 0.7 % Normal 0.0-2.5 [facility] Comment on above: Performed By: #### T ROPHS, ADIFF, CMP, PBNP, GFR, PRO, CBC, ANEU, W #### [address] [address] Eosinophil, Absolute 0.2 10 3/mcL Normal 0.0-0.7 [facility] Comment on above: Performed By: #### T ROPHS, ADIFF, CMP, PBNP, GFR, PRO, CBC, ANEU, W #### [address] [address] Eosinophils/100 WBC (Bld) 2.7 % Normal 0.0-6.0 [facility] Comment on above: Performed By: #### T ROPHS, ADIFF, CMP, PBNP, GFR, PRO, CBC, ANEU, W #### [address] [address] Lymphocyte, Absolute 0.8 10 3/mcL Low 0.9-4.3 [facility] Comment on above: Performed By: #### T ROPHS, ADIFF, CMP, PBNP, GFR, PRO, CBC, ANEU, LANE #### [address] [address] Lymphocytes/100 WBC (Bld) 12.2 % Low 20.0-40.0 [facility] Comment on above: Performed By: #### T ROPHS, ADIFF, CMP, PBNP, GFR, PRO, CBC, ANEU, W #### [address] [address] Monocyte, Absolute 0.7 10 3/mcL Normal 0.1-1.4 [facility] Comment on above: Performed By: #### T ROPHS, ADIFF, CMP, PBNP, GFR, PRO, CBC, ANEULANE #### [address] [address] Monocytes/100 WBC (Bld) 10.3 % Normal 2.0-13.0 [facility] Comment on above: Performed By: #### T ROPHS, ADIFF, CMP, PBNP, GFR, PRO, CBC, ANEULANE #### [address] [address] Neutrophils/100 WBC (Bld) 74.1 % Normal 50.0-75.0 [facility] Comment on above: Performed By: #### T DANIEL RIVAS, CMP, PBNP, GFR, PRO, CBC, LANE FERNANDEZ #### [address] [address] .GFRon 01-01-2025 Estimated Glomerular Filtration Rate 56 ml/min/1.73sqm Normal [facility] Comment on above: Result Comment: [...] eGFR results. Performed By: #### T DANIEL RVIAS, CMP, PBNP, GFR, PRO, CBC, LANE FERNANDEZ #### [place] [id number] .NEUABSon 01-01-2025 Neutrophil, Absolute 5.1 10 3/mcL Normal 2.3-8.1 [facility] Comment on above: Performed By: #### T DANIEL RIVAS, CMP, PBNP, GFR, PRO, CBC, LANE FERNANDEZ #### [address] [address] BMPon 01-01-2025 BUN/Creatinine Ratio 29.5 ratio High 10.0-22.0 [facility] Comment on above: Performed By: #### T DANIEL RIVAS, CMP, PBNP, GFR, PRO, CBC, LANE FERNANDEZ #### [address] [address] Calcium [Mass/Vol] 8.9 mg/dL Normal 8.7-10.[address] [facility] Comment on above: Performed By: #### T ROPHS, ADIFF, CMP, PBNP, GFR, PRO, CBC, LANE FERNANDEZ #### [address] [address] Chloride [Moles/Vol] 106 mmol/L Normal 98-110 [facility] Comment on above: Performed By: #### T ROPHS, ADIFF, CMP, PBNP, GFR, PRO, CBC, LANE FERNANDEZ #### [address] [address] CO2 [Moles/Vol] 25 mmol/L Normal 22-32 [facility] Comment on above: Performed By: #### T ROPHS, ADIFF, CMP, PBNP, GFR, PRO, CBC, LANE FERNANDEZ #### [address] [address] Creatinine [Mass/Vol] 1.29 mg/dL Normal 0.60-1.40 [facility] Comment on above: Result Comment: Test ing performed on InVitae analyzer using enzymatic creatinine methodology. Performed By: #### T ROPHS, ADIFF, CMP, PBNP, GFR, PRO, CBC, LANE FERNANDEZ #### [address] [address] Electrolyte Balance 8.0 mEq/L Normal 4.0-15.0 [facility] Comment on above: Performed By: #### T ROPHS, ADIFF, CMP, PBNP, GFR, PRO, CBC, LANE FERNANDEZ #### [address] [address] Glucose [Mass/Vol] 106 mg/dL Normal 82-[address] [facility] Comment on above: Performed By: #### T ROPHS, ADIFF, CMP, PBNP, GFR, PRO, CBC, LANE FERNANDEZ #### [address] [address] Potassium [Moles/Vol] 4.1 mmol/L Normal 3.5-5.0 [facility] Comment on above: Performed By: #### T ROPHS, ADIFF, CMP, PBNP, GFR, PRO, CBC, LANE FERNANDEZ #### [place] [id number] Sodium [Moles/Vol] 139 mmol/L Normal 136-[address] [facility] Comment on above: Performed By: #### T EVELYN, ADPHYLLIS, CMP, PBNP, GFR, PRO, CBC, LANE FERNANDEZ #### [place] [phone] Urea nitrogen [Mass/Vol] 38.0 mg/dL High 8.0-22.0 [facility] Comment on above: Performed By: #### T EVELYN, ADIFF, CMP, PBNP, GFR, PRO, CBC, LANE FERNANDEZ #### [place] [id number] CBCon 01-01-2025 Erythrocyte distribution width (RBC) [Ratio] 16.9 % High 11.5-15.5 [facility] Comment on above: Performed By: #### T EVELYN, ADIFF, CMP, PBNP, GFR, PRO, CBC, LANE FERNANDEZ #### [place] [phone] Hematocrit (Bld) [Volume fraction] 31.8 % Low 40.0-52.0 [facility] Comment on above: Performed By: #### T EVELYN, ADIFF, CMP, PBNP, GFR, PRO, CBC, LANE FERNANDEZ #### [place] [id number] Hgb 10.8 G/dL Low 13.0-17.5 [facility] Comment on above: Performed By: #### T EVELYN, ADIFF, CMP, PBNP, GFR, PRO, CBC, LANE FERNANDEZ #### [place] [id number] MCH (RBC) [Entitic mass] 29.1 pg Normal 27.0-33.0 [facility] Comment on above: Performed By: #### T ROPNORBERTO, ADIFF, CMP, PBNP, GFR, PRO, CBC, LAEN FERNANDEZ #### [place] [phone] MCHC 34.0 G/dL Normal 32.0-36.0 [facility] Comment on above: Performed By: #### T ROPHS, ADIFF, CMP, PBNP, GFR, PRO, CBC, LANE FERNANDEZ #### [place] [address] MCV (RBC) [Entitic vol] 85.5 fL Normal 81.0-100.0 [facility] Comment on above: Performed By: #### T ROPHS, ADIFF, CMP, PBNP, GFR, PRO, CBC, LANE FERNANDEZ #### [place] [address] Platelet 130 10 3/mcL Low 150-450 [facility] Comment on above: Performed By: #### T ROPHS, ADIFF, CMP, PBNP, GFR, PRO, CBC, LANE FERNANDEZ #### [place] [address] Platelet mean volume (Bld) [Entitic vol] 9.2 fL Normal 6.4-10.5 [facility] Comment on above: Performed By: #### T ROPHS, ADIFF, CMP, PBNP, GFR, PRO, CBC, LANE FERNANDEZ #### [place] [id number] RBC 3.72 10 6/mcL Low 4.50-6.00 [facility] Comment on above: Performed By: #### T ROPHS, ADIFF, CMP, PBNP, GFR, PRO, CBC, LANE FERNANDEZ #### [place] [id number] WBC 6.9 10 3/mcL Normal 4.5-10.8 [facility] Comment on above: Performed By: #### T ROPHS, ADIFF, CMP, PBNP, GFR, PRO, CBC, LANE FERNANDEZ #### [place] [address] MGon 01-01-2025 Magnesium [Mass/Vol] 2.1 mg/dL Normal 1.6-2.4 [facility] Comment on above: Performed By: #### T ROPHS, ADIFF, CMP, PBNP, GFR, PRO, CBC, LANE FERNANDEZ #### [place] [phone] PROon 01-01-2025 INR Coag (PPP) [Relative time] 1.9 {INR} Normal [facility] Comment on above: Order Comment: order ed secondary to warfarin order Result Comment: [employer] (CHEST, 1991, 102:312S-25S) recommended therapeutic range for oral anticoagulant therapy is: LOW RISK: Prophylaxis of venous thrombosis INR: 2.0-3.0 Treatment of pulmonary embolism 2.0-3.0 Prevention of systemic embolism 2.0-3.0 HIGH RISK: Mechanical prosthetic valves 2.5-3.5 Performed By: #### T EVELYN, ADIFF, CMP, PBNP, GFR, PRO, CBC, LANE FERNANDEZ #### [place] [address] PT Coag (PPP) [Time] 21.8 s High 9.0-14.4 [facility] Comment on above: Order Comment: order ed secondary to warfarin order Result Comment: Effe ctive 02/22/08, Protime results may be affected by some antibiotics (i.e. Ciprofloxacin, Azithromycin, Bactrim) which may potentiate the action of oral anticoagulants, with further increases in Protime/INR. Performed By: #### T EVELYN, ADIFF, CMP, PBNP, GFR, PRO, CBC, LANE FERNANDEZ #### [place] [address] .Auto Diffon 12-31-2024 Basophil, Absolute 0.0 10 3/mcL Normal 0.0-0.3 [facility] Comment on above: Performed By: #### T ROBHS, ADIFF, CMP, PBNP, GFR, PRO, CBC, LANE FERNANDEZ #### [place] [address] Basophils/100 WBC (Bld) 0.6 % Normal 0.0-2.5 [facility] Comment on above: Performed By: #### T ROBHS, ADIFF, CMP, PBNP, GFR, PRO, CBC, LANE FERNANDEZ #### [place] [address] Eosinophil, Absolute 0.2 10 3/mcL Normal 0.0-0.7 [facility] Comment on above: Performed By: #### T ROPHS, ADIFF, CMP, PBNP, GFR, PRO, CBC, ANEULANE #### [address] [address] Eosinophils/100 WBC (Bld) 2.8 % Normal 0.0-6.0 [facility] Comment on above: Performed By: #### T ROPHS, ADIFF, CMP, PBNP, GFR, PRO, CBC, ANEULANE #### [address] [address] Lymphocyte, Absolute 0.7 10 3/mcL Low 0.9-4.3 [facility] Comment on above: Performed By: #### T ROPHS, ADIFF, CMP, PBNP, GFR, PRO, CBC, ANEULANE #### [address] [address] Lymphocytes/100 WBC (Bld) 11.1 % Low 20.0-40.0 [facility] Comment on above: Performed By: #### T ROPHS, ADIFF, CMP, PBNP, GFR, PRO, CBC, LANE FERNANDEZ #### [address] [address] Monocyte, Absolute 0.7 10 3/mcL Normal 0.1-1.4 [facility] Comment on above: Performed By: #### T ROPHS, ADIFF, CMP, PBNP, GFR, PRO, CBC, LANE FERNANDEZ #### [address] [address] Monocytes/100 WBC (Bld) 9.7 % Normal 2.0-13.0 [facility] Comment on above: Performed By: #### T ROPHS, ADIFF, CMP, PBNP, GFR, PRO, CBC, LANE FERNANDEZ #### [address] [address] Neutrophils/100 WBC (Bld) 75.8 % High 50.0-75.0 [facility] Comment on above: Performed By: #### T ROPHS, ADIFF, CMP, PBNP, GFR, PRO, CBC, ANEULANE #### [place] [address] .GFRon 12-31-2024 Estimated Glomerular Filtration Rate 51 ml/min/1.73sqm Normal [facility] Comment on above: Result Comment: [...] CMP, PBNP, GFR, PRO, CBCJIM MDW #### [place] [address] .MDWon 12-31-2024 Monocyte Distribution Width 19.60 Normal 0.00-20.00 [facility] Comment on above: Result Comment: For ED adult patients suspected of sepsis, MDW<=20.0 does not rule out sepsis or risk of sepsis Performed By: #### T EVELYN, ADIFF, CMP, PBNP, GFR, PRO, CBCJIM MDW #### [place] [address] .NEUABSon 12-31-2024 Neutrophil, Absolute 5.1 10 3/mcL Normal 2.3-8.1 [facility] Comment on above: Performed By: #### T ROPHS, ADIFF, CMP, PBNP, GFR, PRO, CBCJIM MDW #### [place] [address] CBCon 12-31-2024 Erythrocyte distribution width (RBC) [Ratio] 16.8 % High 11.5-15.5 [facility] Comment on above: Performed By: #### T ROBHS, ADIFF, CMP, PBNP, GFR, PRO, CBC, LANE FERNANDEZ #### [place] [address] Hematocrit (Bld) [Volume fraction] 34.5 % Low 40.0-52.0 [facility] Comment on above: Performed By: #### T ROPHS, ADIFF, CMP, PBNP, GFR, PRO, CBC, LANE FERNANDEZ #### [place] [id number] Hgb 11.9 G/dL Low 13.0-17.5 [facility] Comment on above: Performed By: #### T ROPHS, ADIFF, CMP, PBNP, GFR, PRO, CBC, LANE FERNANDEZ #### [place] [id number] MCH (RBC) [Entitic mass] 29.1 pg Normal 27.0-33.0 [facility] Comment on above: Performed By: #### T ROPNORBERTO, ADIFF, CMP, PBNP, GFR, PRO, CBC, LANE FERNANDEZ #### [place] [id number] MCHC 34.4 G/dL Normal 32.0-36.0 [facility] Comment on above: Performed By: #### T ROPNORBERTO, ADIFF, CMP, PBNP, GFR, PRO, CBC, LANE FERNANDEZ #### [place] [address] MCV (RBC) [Entitic vol] 84.7 fL Normal 81.0-100.0 [facility] Comment on above: Performed By: #### T ROPHS, ADIFF, CMP, PBNP, GFR, PRO, CBC, LANE FERNANDEZ #### [place] [address] Platelet 133 10 3/mcL Low 150-450 [facility] Comment on above: Performed By: #### T ROPHS, ADIFF, CMP, PBNP, GFR, PRO, CBC, LANE FERNANDEZ #### [place] [address] Platelet mean volume (Bld) [Entitic vol] 8.9 fL Normal 6.4-10.5 [facility] Comment on above: Performed By: #### T ROPHS, ADIFF, CMP, PBNP, GFR, PRO, CBC, L[facility]ER[facility]Z #### [place] [id number] RBC 4.08 10 6/mcL Low 4.50-6.00 [facility] Comment on above: Performed By: #### T ROPHS, ADIFF, CMP, PBNP, GFR, PRO, CBC, L[facility] #### [place] [id number] WBC 6.7 10 3/mcL Normal 4.5-10.8 [facility] Comment on above: Performed By: #### T ROPHS, ADIFF, CMP, PBNP, GFR, PRO, CBC, L[facility]NAN[facility] #### [place] [id number] CMPon 12-31-2024 Albumin Level 3.7 G/dL Normal 3.2-4.8 [facility] Comment on above: Performed By: #### T ROPHS, ADIFF, CMP, PBNP, GFR, PRO, CBC, L[facility] #### [place] [id number] Albumin/Globulin [Mass ratio] 1.0 {ratio} Normal 0.9-1.6 [facility] Comment on above: Performed By: #### T ROPHS, ADIFF, CMP, PBNP, GFR, PRO, CBC, L[facility] #### [place] [id number] ALP [Catalytic activity/Vol] 80 U/L Normal 38-126 [facility] Comment on above: Performed By: #### T ROPHS, ADIFF, CMP, PBNP, GFR, PRO, CBC, L[facility] #### [place] [id number] ALT [Catalytic activity/Vol] 13 U/L Normal 12-55 [facility] Comment on above: Performed By: #### T ROPHS, ADIFF, CMP, PBNP, GFR, PRO, CBC, L[address] [facility]ER[facility] #### [facility] [address] [place], [place] [address] AST [Catalytic activity/Vol] 22 U/L Normal 8-34 [facility] Comment on above: Performed By: #### T EVELYN, ADIFF, CMP, PBNP, GFR, PRO, CBC, L[address] [facility]ER[facility] #### [address] [address] Bili Total 1.10 mg/dL Normal 0.20-1.20 [facility] Comment on above: Result Comment: Use of this assay is not recommended for patients undergoing treatment with eltrombopag due to the potential for falsely elevated results. Performed By: #### T EVELYN, ADIFF, CMP, PBNP, GFR, PRO, CBC, L[address] [facility]ERNANDEZ #### [address] [address] BUN/Creatinine Ratio 29.3 ratio High 10.0-22.0 [facility] Comment on above: Performed By: #### T EVEYLN, ADIFF, CMP, PBNP, GFR, PRO, CBC, L[address] [facility]ER[facility]Z #### [address] [address] Calcium [Mass/Vol] 9.4 mg/dL Normal 8.7-10.[address] [facility] Comment on above: Performed By: #### T EVELYN, ADIFF, CMP, PBNP, GFR, PRO, CBCJIM MDW #### [address] [address] Chloride [Moles/Vol] 102 mmol/L Normal 98-110 [facility] Comment on above: Performed By: #### T EVELYN, ADIFF, CMP, PBNP, GFR, PRO, CBC, L[address] [facility] #### [address] [address] CO2 [Moles/Vol] 28 mmol/L Normal 22-32 [facility] Comment on above: Performed By: #### T EVELYN, ADIFF, CMP, PBNP, GFR, PRO, CBC, LANE FERNANDEZ #### [address] [address] Creatinine [Mass/Vol] 1.40 mg/dL Normal 0.60-1.40 [facility] Comment on above: Result Comment: Test ing performed on [employer] CH analyzer using enzymatic creatinine methodology. Performed By: #### T ROPHS, ADIFF, CMP, PBNP, GFR, PRO, CBC, LANE FERNANDEZ #### [address] [address] Electrolyte Balance 8.0 mEq/L Normal 4.0-15.0 [facility] Comment on above: Performed By: #### T ROPHS, ADIFF, CMP, PBNP, GFR, PRO, CBC, LANE FERNANDEZ #### [address] [address] Globulin 3.7 G/dL Normal 2.5-4.2 [facility] Comment on above: Performed By: #### T ROPHS, ADIFF, CMP, PBNP, GFR, PRO, CBC, LANE FERNANDEZ #### [place] [id number] Glucose [Mass/Vol] 141 mg/dL High 82-[address] [facility] Comment on above: Performed By: #### T ROPHS, ADIFF, CMP, PBNP, GFR, PRO, CBC, LANE FERNANDEZ #### [address] [address] Potassium [Moles/Vol] 4.0 mmol/L Normal 3.5-5.0 [facility] Comment on above: Performed By: #### T ROPHS, ADIFF, CMP, PBNP, GFR, PRO, CBC, LANE FERNANDEZ #### [address] [address] Sodium [Moles/Vol] 138 mmol/L Normal 136-[address] [facility] Comment on above: Performed By: #### T ROPHS, ADIFF, CMP, PBNP, GFR, PRO, CBC, LANE FERNANDEZ #### [place] [id number] Total Protein 7.4 G/dL Normal 5.7-8.2 [facility] Comment on above: Performed By: #### T ROPHS, ADIFF, CMP, PBNP, GFR, PRO, CBC, LANE FERNANDEZ #### [address] [address] Urea nitrogen [Mass/Vol] 41.0 mg/dL High 8.0-22.0 [facility] Comment on above: Performed By: #### T ROPHS, ADIFF, CMP, PBNP, GFR, PRO, CBC, ANEU, MDW #### [facility] [address] [place] [id number] LABORATORYOrdered By: SYSTEM SYSTEM on 12-31-2024 Troponin I.cardiac DL <= 0.01 ng/mL [Mass/Vol] 65 ng/L High 0 - 54 ng/L ADM SS Comment on above: Interpretive Data: High Sensitive Troponin I Reference Ranges: Female: 0-34 ng/L Male: 0-54 ng/L Testing performed on [employer] IM analyzer using direct chemiluminescent technology. Troponin I.cardiac DL <= 0.01 ng/mL [Mass/Vol] 69 ng/L High 0 - 54 ng/L ADM SS Comment on above: Interpretive Data: High Sensitive Troponin I Reference Ranges: Female: 0-34 ng/L Male: 0-54 ng/L Testing performed on [employer] IM analyzer using direct chemiluminescent technology. Albumin [...] ng/L Male: 0-54 ng/L Testing performed on [employer] analyzer using direct chemiluminescent technology. PBNPon 12-31-2024 Natriuretic peptide B (Bld) [Mass/Vol] 1793 pg/mL Normal 0-1800 [facility] Comment on above: Performed By: #### T EVELYN, DANIEL, CMP, PBNP, GFR, PRO, CBC, ANEU, MDW #### [facility] [address] [place] [address] PROon 12-31-2024 INR Coag (PPP) [Relative time] 1.8 {INR} Normal [facility] Comment on above: Order Comment: order ed secondary to warfarin order Result Comment: [employer] (CHEST, 1992, 102:312S-25S) recommended therapeutic range for oral anticoagulant therapy is: LOW RISK: Prophylaxis of venous thrombosis INR: 2.0-3.0 Treatment of pulmonary embolism 2.0-3.0 Prevention of systemic embolism 2.0-3.0 HIGH RISK: Mechanical prosthetic valves 2.5-3.5 Performed By: #### T EVELYN, ADPHYLLIS, CMP, PBNP, GFR, PRO, CBC, ANEU, MDW #### [facility] [address] [place] [id number] PT Coag (PPP) [Time] 21.1 s High 9.0-14.4 [facility] Comment on above: Order Comment: order ed secondary to warfarin order Result Comment: Effe ctive 02/22/08, Protime results may be affected by some antibiotics (i.e. Ciprofloxacin, Azithromycin, Bactrim) which may potentiate the action of oral anticoagulants, with further increases in Protime/INR. Performed By: #### T DANIEL RIVAS, CMP, PBNP, GFR, PRO, CBC, LANE FERNANDEZ #### [place] [address] INR Coag (PPP) [Relative time] 1.6 {INR} Normal [facility] Comment on above: Result Comment: [employer] (CHEST, 1991, 102:312S-25S) recommended therapeutic range for oral anticoagulant therapy is: LOW RISK: Prophylaxis of venous thrombosis INR: 2.0-3.0 Treatment of pulmonary embolism 2.0-3.0 Prevention of systemic embolism 2.0-3.0 HIGH RISK: Mechanical prosthetic valves 2.5-3.5 Performed By: #### T DANIEL RIVAS, CMP, PBNP, GFR, PRO, CBCJIM MDW #### [place] [address] PT Coag (PPP) [Time] 18.7 s High 9.0-14.4 [facility] Comment on above: Result Comment: Effe ctive 02/22/08, Protime results may be affected by some antibiotics (i.e. Ciprofloxacin, Azithromycin, Bactrim) which may potentiate the action of oral anticoagulants, with further increases in Protime/INR. Performed By: #### T DANIEL RIVAS, CMP, PBNP, GFR, PRO, CBCJIM MDW #### [address] 12-31-2024 High Sensitivity Troponin I 65 ng/L High [address] [place] [address] MAIN Comment on above: Result Comment: High Sensitive Troponin I Reference Ranges: Female: 0-34 ng/L Male: 0-54 ng/L Testing performed on [employer] IM analyzer using direct chemiluminescent technology. Performed By: #### T DANIEL RIVAS, CMP, PBNP, GFR, PRO, CBC, LANE FERNANDEZ #### [place] [address] High Sensitivity Troponin I 69 ng/L [address] MAIN Comment on above: Result Comment: High Sensitive Troponin I Reference Ranges: Female: 0-34 ng/L Male: 0-54 ng/L Testing performed on [employer] IM analyzer using direct chemiluminescent technology. Performed By: #### T EVELYN, DANIEL, CMP, PBNP, GFR, PRO, CBC, JIM, LANE #### [address] [address] High Sensitivity Troponin I 63 ng/L High 0-54 [facility] Comment on above: Result Comment: High Sensitive Troponin I Reference Ranges: Female: 0-34 ng/L Male: 0-54 ng/L Testing performed on [employer] IM analyzer using direct chemiluminescent technology. Performed By: #### T EVELYN, ADIFF, CMP, PBNP, GFR, PRO, CBC, ANEU, MDW #### [address] [address] XR CHEST 1 VIEWon 12-31-2024 XR CHEST 1 VIEW ORIGINAL EXAMINATION: Exam Title:ONE XRAY VIEW OF THE CHEST Completed Time: 12/31/2024 11:31 am Procedure Description:CHEST ONE VIEW AP/PA COMPARISON: July 25, 2021 chest x-ray HISTORY: ORDERING SYSTEM PROVIDED HISTORY: Reason for Exam: palpitations FINDINGS: Hqft-mz-dojggjqu cardiomegaly. CABG. Pacing leads appear intact. Left-sided [...] 12/31/2024 11:35:34 AM Ordering Provider: MEGHA HAHN [facility] Guero 12-26-2024 ROSI Telephone (PHARMN) BESSY VALVERDE ([id number]) 1945 M Date Time Provider Department 12/26/24 PHARMACIST PHARMN During your visit today, we recorded the following information about you: Kelechi (LOANZ)Karan 12/26/2024 9:10 AM Signed Patient called to let us know he will not be able to test tomorrow as he was advised by MD to hold warfarin yesterday and today for a procedure tomorrow. 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 Patient is asking when next INR should be done and can be reached at [phone] and stated we may leave a detailed message if no answer. Karan Lorenz (LOANZ) Valerio Acharya RPh 12/26/2024 3:35 PM Signed [...] 2.0. Pt. requestig a return call at [phone] Allergies As of Date: 12/26/2024 (No Known [...] directed for weight gain, fluid retention. - bdzfiumrx-mgrlxj-pwtchz ne-scop () 16.2-0.1037 -0.0194 mg per tablet [...] [I50.22] 01/06/2018 Other insomnia [G47.09] 12/02/2018 07/29/2023 residential (current) use of anticoag (more content not included)... Normal [facility] Anion gap in Serum or Plasma Ordered By: Mackenzie Iverson on 12-16-2024 Anion gap [Moles/Vol] 11 mmol/L 12-22 [facility] BUN/creatinine ratioOrdered By: Mackenzie Iverson on 12-16-2024 Urea nitrogen/Creatinine [Mass ratio] 29.9 mg/mg High 05-29 [facility] Carbon dioxide, total [Moles /volume] in Central venous bloodOrdered By: Mackenzie Iverson on 12-16-2024 CO2 [Moles/Vol] 23.5 mmol/L 21.0-32.0 [facility] Chloride assayOrdered By: Derrek Iverson on 12-16-2024 Chloride [Moles/Vol] 103 mmol/L 98-108 [facility] Glomerular filtration rate ( GFR) estimation/1.73 sq m using serum, plasma, or whole bOrdered By: Mackenzie Iverson on 12-16-2024 GFR/1.73 sq M.predicted among non-blacks MDRD (S/P/Bld) [Vol rate/Area] 47 mL/min/{1.73_m2} Low >60 [facility] Comment on above: mL/min/1.73m2 CKD-EP I Creatinine Equation (2020) PTHINon 12-16-2024 PTH 169 pg/mL High 11-61 [facility] Comment on above: Performed By: #### L 500.3600, L506.1001, L509.1000 #### [facility] [address] [place], [address] Potassium measurement (mass/ volume)Ordered By: Mackenzie Iverson on 12-16-2024 Potassium (Unsp spec) [Mass/Vol] 4.7 mmol/L 3.3-5.1 [facility] Renal Profileon 12-16-2024 Albumin [Mass/Vol] 3.8 g/dL Normal 3.4-4.8 [facility] Comment on above: Performed By: #### L 500.3600, L506.1001, L509.1000 #### [facility] [address] [place], [address] BUN/CRE 29.9 RATIO High 10-20 [facility] Comment on above: Performed By: #### L 500.3600, L506.1001, L509.1000 #### [facility] [address] [place], [address] Calcium [Mass/Vol] 9.2 mg/dL Normal 7.6-11.0 [facility] Comment on above: Performed By: #### L 500.3600, L506.1001, L509.1000 #### [facility] [address] [place], [address] Chloride [Moles/Vol] 103 mmol/L Normal 98-108 [facility] Comment on above: Performed By: #### L 500.3600, L506.1001, L509.1000 #### [facility] [address] [place], [address] CO2 [Moles/Vol] 23.5 mmol/L Normal 21.0-32.0 [facility] Comment on above: Performed By: #### L 500.3600, L506.1001, L509.1000 #### [facility] [address] [place], [address] Creatinine [Mass/Vol] 1.49 mg/dL High 0.70-1.20 [facility] Comment on above: Performed By: #### L 500.3600, L506.1001, L509.1000 #### [facility] [address] [place], [address] GAP 11 Normal 5-15 [facility] Comment on above: Performed By: #### L 500.3600, L506.1001, L509.1000 #### [facility] [address] [place], [address] GFR/1.73 sq M.predicted among non-blacks MDRD (S/P/Bld) [Vol rate/Area] 47 mL/min/{1.73_m2} Low >60 [facility] Comment on above: Result Comment: mL/m in/1.73m2 CKD-EPI Creatinine Equation (2020) Performed By: #### L 500.3600, L506.1001, L509.1000 #### [facility] [address] [place], [address] Glucose [Mass/Vol] 227 mg/dL High 70-99 [facility] Comment on above: Performed By: #### L 500.3600, L506.1001, L509.1000 #### [facility] [address] [place], [address] Phosphate [Mass/Vol] 2.9 mg/dL Normal 2.7-4.5 [facility] Comment on above: Performed By: #### L 500.3600, L506.1001, L509.1000 #### [facility] [address] [place], [address] Potassium [Moles/Vol] 4.7 mmol/L Normal 3.3-5.1 [facility] Comment on above: Performed By: #### L 500.3600, L506.1001, L509.1000 #### [facility] [address] [place], [address] Sodium [Moles/Vol] 137 mmol/L Normal 133-145 [facility] Comment on above: Performed By: #### L 500.3600, L506.1001, L509.1000 #### [facility] [address] [place], [address] Urea nitrogen [Mass/Vol] 45 mg/dL High 4-19 [facility] Comment on above: Performed By: #### L 500.3600, L506.1001, L509.1000 #### [facility] [address] [place], [address] Serum creatinine measurement (mass/volume)Ordered By: Mackenzie Iverson on 12-16-2024 Creatinine [Mass/Vol] 1.49 mg/dL High 0.70-1.20 [facility] Serum glucose measurement (m ass/volume)Ordered By: Mackenzie Iverson on 12-16-2024 Glucose [Mass/Vol] 227 mg/dL High 70-99 [facility] Serum or plasma albumin karen urement (mass/volume)Ordered By: Mackenzie Iverson on 12-16-2024 Albumin [Mass/Vol] 3.8 g/dL 3.4-4.8 [facility] Serum or plasma calcium karen urement (mass/volume)Ordered By: Mackenzie Iverson on 12-16-2024 Calcium [Mass/Vol] 9.2 mg/dL 7.6-11.0 [facility] Serum or plasma urea nitroge n measurement (mass/volume)Ordered By: Mackenzie Iverson on 12-16-2024 Urea nitrogen [Mass/Vol] 45 mg/dL High 4-19 [facility] Sodium levelOrdered By: Skye Iverson on 12-16-2024 Sodium [Moles/Vol] 137 mmol/L 133-145 [facility] Vitamin D,25 Hydroxyon 12-16 Vitamin D 25-OH 18.7 ng/mL Low 30-100 [facility] Comment on above: Result Comment: Peggy min D Status Deficiency: <20 ng/mL (50nmol/L) Insufficiency: 20-30 ng/mL (50-75 nmol/L) Sufficiency: 30-100 ng/mL (75-250 nmol/L) Toxicity: >100 ng/mL (>250 nmol/L) Performed By: #### L 500.3600, L506.1001, L509.1000 #### [facility] [address] [place], [place], [address] [facility] 12[facility]13[facility]2024 [facility] (PHAMTE) BESSY VALVERDE ([id number]) 1945 M Date Time Provider Department 12/13/24 JONATHAN HAWKINS During your visit today, we recorded the following information about you: Jonathan Hawkins [facility] 12/13/2024 7:54 AM Signed [facility] Anticoagulation Episode Summary Anticoagulation Care Providers Provider Role Specialty Phone number George Mata MD [facility] Internal Medicine [phone] Bessy Valverde is a 78 year old [...] missed any doses of warfarin. Jonathan Hawkins [facility] Clinical Pharmacist, Pharmacy Anticoagulation Clinic Pharmacy Anticoagulation Clinic Pager: [phone]. Allergies As of Date: 12/13/2024 (No Known Allergies) Date Reviewed: 11/01/2024 Reviewed by: Daphney Obando LPN - Fully Assessed Reason for Visit: Anticoagulation Telephone Fu [148] Cmt: Home INR result Prescriptions as of 12/13/2024 - uchkpamft-jtvamr-gyzhpn ne-scop () 16.2-0.1037 -0.0194 mg per tablet [...] 07/26/2010 07/24/2022 (more content not included)... Normal [facility] CNPNon 11-29-2024 CNPN Telephone (PHAMTE) BESSY VALVERDE ([id number]) 1945 M Date Time Provider Department 11/29/24 JONATHAN HAWKINS During your visit today, we recorded the following information about you: Jonathan Hawkins [facility] 11/29/2024 8:59 AM Signed [facility] Anticoagulation Clinic Anticoagulation Episode Summary Anticoagulation Care Providers Provider Role Specialty Phone number George Mata MD [facility] Internal Medicine [phone] Bessy Valverde is a 78 year old [...] missed any doses of warfarin. Jonathan Hawkins [facility] Clinical Pharmacist, Pharmacy Anticoagulation Clinic Pharmacy Anticoagulation Clinic Pager: [phone]. Allergies As of Date: 11/29/2024 (No Known Allergies) Date Reviewed: 11/01/2024 Reviewed by: Daphney Obando LPN - Fully Assessed Reason for Visit: Anticoagulation Telephone Fu [148] Cmt: Home INR result Prescriptions as of 11/29/2024 - pdrwyjtww-gaopwv-nwsdee ne-scop () 16.2-0.1037 -0.0194 mg per tablet [...] [R19.5] 08/23/2012 (more content not included)... Normal [facility] CNPNon 11-17-2024 CNPN Telephone (INTMWS) BESSY VALVERDE ([id number]) 1945 M Date Time Provider Department 11/17/24 [...] follows: Requested Prescriptions Pending Prescriptions Disp Refills uuklybzwb-mslegl-qblect ne-scop () 16.2-0.1037 -0.0194 mg per tablet [...] Diagnosis:Irritable bowel syndrome, unspecified type [K58.9] Order(s):phenobarb-hyos aw-uedbyjhj-vvks () 16.2-0.1037 -0.0194 mg per tabletTake 1 tablet by mouth every 6 hours as needed.Disp: 240 tabletRfl: 0 Prescriptions as of 11/17/2024 - ijavlkyki-rnfbwr-ldalzg ne-scop () 16.2-0.1037 -0.0194 mg per tablet [...] [I50.22] 01/06/2018 Other insomnia [G47.09] 12/02/2018 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/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/26/2019 CKD (chronic kidney disease) stage 3, GFR 30-59*01/29/2019 11/30/2019 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 Normal [facility] CNPNon 11-15-2024 CNPN Telephone (PHARAV) BESSY VALVERDE ([id number]) 1945 M Date Time Provider Department 11/15/24 ELLIOTT GLEASON During your visit today, we recorded the following information about you: Elliott Gleason ana 11/15/2024 8:59 AM Signed [facility] Anticoagulation Clinic Anticoagulation Episode Summary Anticoagulation Care Providers Provider Role Specialty Phone number George Mata MD [facility] Internal Medicine [phone] Bessy Hernandez Nicolle is a 78 year [...] ALLERGIES No Known Allergies 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 Elliott Gleason [facility] Clinical Pharmacist, Pharmacy Anticoagulation Clinic Pharmacy Anticoagulation Clinic Pager: [phone]. Allergies As of Date: 11/15/2024 (No Known Allergies) Date Reviewed: 11/01/2024 Reviewed by: Daphney Obando LPN - Fully Assessed Reason for Visit: Anticoagulation Telephone Fu [148] Cmt: Home INR result Primary Visit Diagnosis:residential (current) use of anticoagulants [Z79.01] Other Visit [...] empty stomach, 1/2 hr before meal. - ybffrswdr-ivjhic-aqvawn ne-scop () 16.2-0.1037 -0.0194 mg per tablet [...] Asthma, mod (more content not included)... Normal [facility] CNOVon 11-01-2024 CNOV Office Visit (INTMWS ) BESSY VALVERDE ([id number]) 1945 M Date Time Provider Department 11/01/24 9:00 AM GEORGE MATA INTMWS During your visit today, we recorded the following information about you: Temperature Pulse Respiration Blood pressure 98 degrees 68/minute 20/minute 106/60 Weight 79.2 kg George Mata MD 11/01/2024 9:34 AM Signed This note was created using pinion-pinsriter. 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 gpvdnsvfm-flabls-emfuvh ne-scop () 16.2-0.1037 -0.0194 mg per tablet [...] No edema. (more content not included)... Normal [facility] 11-01-2024 [facility] Telephone (Turbo StudiosMTE) BESSY VALVERDE ([id number]) 1945 M Date Time Provider Department 11/01/24 LIAN COULTER During your visit today, we recorded the following information about you: Lian Coulter, [facility] 11/01/2024 8:37 AM Signed [facility]ulatory Pharm[facility] Anticoagulation Clinic Anticoagulation Episode Summary Anticoagulation Care Providers Provider Role Specialty Phone number George Mata MD [facility] Internal Medicine [phone] Bessy Valverde is a 78 year old [...] ALLERGIES No Known Allergies 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 Lian Coulter [facility] Clinical Pharmacist, Pharmacy Anticoagulation Clinic Pharmacy Anticoagulation Clinic Pager: [phone]. 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 - qinttuwqs-iaehjk-ytbved ne-scop () 16.2-0.1037 -0.0194 mg per tablet [...] well-controlled [J*12/09/2008 (more content not included)... Normal [facility] CNPNon 10-18-2024 CNPN Telephone (PHAMTE) BESSY VALVERDE ([id number]) 1945 M Date Time Provider Department 10/18/24 JONATHAN HAWKINS During your visit today, we recorded the following information about you: Jonathan Hawkins [facility] 10/18/2024 8:01 AM Signed [facility] Anticoagulation Clinic Anticoagulation Episode Summary Anticoagulation Care Providers Provider Role Specialty Phone number George Mata MD Responsible Internal Medicine [phone] Bessy Hernandez Nicolle is a 78 year [...] missed any doses of warfarin. Jonathan Hawkins [facility] Clinical Pharmacist, Pharmacy Anticoagulation Clinic Pharmacy Anticoagulation Clinic Pager: [phone]. Allergies As of Date: 10/18/2024 (No Known [...] empty stomach, 1/2 hr before meal. - fgeqzirsn-vlngfw-zukvph ne-scop () 16.2-0.1037 -0.0194 mg per tablet [...] bleeding [R1 (more content not included)... Normal [facility] Ankle Brachial Indexon 10-[address] [facility] [address] [place] [address] Ankle Brachial Index 10/17/24 1252 MR#: [id number] Acct: [id number] Name: BESSY VALVERDE Rep #: [id number] : 1945 78 From: Faizan Pierce MD Attending Dr: Dr. Faizan Pierce MD Status: DE P CLI Ordering Dr: Faizan Pierce MD Date: 10/17/24 Location: [facility] Sex: M C Admitted: Reason For Study [...] Mcginnis RVT and Student 12/08/241999 Date Faizan Pirece MD CC: Dr. Faizan Pierce MD; Dr. 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: Signed [facility] 10-04-2024 [facility] Telephone (PHAMTE) VALVERDEBESSY Hernandez ([id number]) 1945 M Date Time Provider Department 10/04/24 JONATHAN HAWKINS PHAMTE During your visit today, we recorded the following information [facility]: [facility]04[facility] 8:24 AM Signed [facility] Anticoagulation Clinic Anticoagulation Episode Summary Anticoagulation Care Providers Provider Role Specialty Phone number George Mata MD [facility] Internal Medicine [phone] Bessy Hernandez Nicolle is a 78 year [...] missed any doses of warfarin. Jonathan Hawkins [facility] Clinical Pharmacist, Pharmacy Anticoagulation Clinic Pharmacy Anticoagulation Clinic Pager: [phone]. Allergies As of Date: 10/04/2024 (No Known [...] empty stomach, 1/2 hr before meal. - poaoostia-lvxafb-zpwwdo ne-scop () 16.2-0.1037 -0.0194 mg per tablet [...] test [R19.5] (more content not included)... Normal [facility] CNPNon 09-20-2024 CNPN Telephone (PHAMTE) BESSY VALVERDE ([id number]) 1945 M Date Time Provider Department 09/20/24 JONATHAN HAWKINS PHAGARRETT During your visit today, we recorded the following information about you: Jonathan Hawkins [facility] 09/20/2024 9:14 AM Signed [facility]ulatory [facility] Anticoagulation Episode Summary Anticoagulation Care Providers Provider Role Specialty Phone number George Mata MD [facility] Internal Medicine [phone] Bessy Valverde is a 78 year old [...] missed any doses of warfarin. Jonathan Hawkins [facility] Clinical Pharmacist, Pharmacy Anticoagulation Clinic Pharmacy Anticoagulation Clinic Pager: [phone]. Allergies As of Date: 09/20/2024 (No Known [...] empty stomach, 1/2 hr before meal. - kechrvubf-hgotes-fxmcxm ne-scop () 16.2-0.1037 -0.0194 mg per tablet [...] test [R19.5] (more content not included)... Normal [facility] CNPNon 09-13-2024 CNPN Telephone (INTMWS) BESSY VALVERDE ([id number]) 1945 M Date Time Provider Department 09/13/24 [...] nephrology ut would like to remain in [place]. Please place consult and will fax all information to [facility] here in [place]. Patient was given number to call and schedule. Fax number: [phone] Marva Carroll LPN 09/13/2024 8:55 AM Signed [...] - CONSULT TO NEPHROLOGY. Dr. Mackenzie Iverson, [facility]. MD Kiarra Bright [place], [place] 09/16/2024 [...] N18.30] Order(s):CONSULT TO NEPHROLOGY [9018] Order #: [id number]: 1 FUTURE Prescriptions as of 09/16/2024 - [...] empty stomach, 1/2 hr before meal. - xssnfmjiy-kggusn-tenwca ne-scop () 16.2-0.1037 -0.0194 mg per tablet [...] [I50.22] 01/06/2018 Other insomnia [G47.09] 12/02/2018 07/29/2023 residential (current) use of anticoagulant (more content not included)... Normal [facility] CBC panel Auto (Bld)on 09-06 Erythrocyte distribution width (RBC) [Ratio] 15.5 % High 11.5-15.0 [facility] Comment on above: Order Comment: Speci men Type: BLOOD SPECIMENOrdering Facility: [facility] Address: [address] [place] [address] Performed By: #### 5 8410-2 ####[facility] LABIA [id number] [place] [address] [place] Hematocrit (Bld) [Volume fraction] 33.9 % Low 39.0-51.0 [facility] Comment on above: Order Comment: Speci men Type: BLOOD SPECIMENOrdering Facility: [facility] Address: [address] [place] [address] Performed By: #### 5 8410-2 ####[facility] LABIA [id number] [place] [address] [place] Hemoglobin (Bld) [Mass/Vol] 11.3 g/dL Low 13.0-17.0 [facility] Comment on above: Order Comment: Speci men Type: BLOOD SPECIMENOrdering Facility: [facility] Address: [address] [place] [address] Performed By: #### 5 8410-2 ####[facility] LABIA [id number] [place] [address] [place] MCH (RBC) [Entitic mass] 30.5 pg Normal 26.0-34.0 [facility] Comment on above: Order Comment: Speci men Type: BLOOD SPECIMENOrdering Facility: [facility] Address: [address] [place] [address] Performed By: #### 5 8410-2 ####[facility] LABIA [id number] [place] [address] [place] MCHC (RBC) [Mass/Vol] 33.3 g/dL Normal 30.5-36.0 [facility] Comment on above: Order Comment: Speci men Type: BLOOD SPECIMENOrdering Facility: [facility] Address: [address] [place] [address] Performed By: #### 5 8410-2 ####[facility] LABIA [id number] [place] [address] [place] MCV (RBC) [Entitic vol] 91.6 fL Normal 80.0-100.0 [facility] Comment on above: Order Comment: Speci men Type: BLOOD SPECIMENOrdering Facility: [facility] Address: [address] [place] [address] Performed By: #### 5 8410-2 ####[facility] LABIA [id number] [place] [address] [place] Nucleated RBC (Bld) [#/Vol] 10*3/uL Normal <0.01 [facility] Comment on above: Order Comment: Speci men Type: BLOOD SPECIMENOrdering Facility: [facility] Address: [address] [place] [address] Performed By: #### 5 8410-2 ####[facility] LABIA [id number] [place] [address] [place] Platelet mean volume (Bld) [Entitic vol] 11.0 fL Normal 9.0-12.7 [facility] Comment on above: Order Comment: Speci men Type: BLOOD SPECIMENOrdering Facility: [facility] Address: [address] [place] [address] Performed By: #### 5 8410-2 ####[facility] LABIA [id number] [place] [address] [place] Platelets (Bld) [#/Vol] 141 10*3/uL Low 150-400 [facility] Comment on above: Order Comment: Speci men Type: BLOOD SPECIMENOrdering Facility: [facility] Address: [address] [place] [address] Performed By: #### 5 8410-2 ####[facility] LABCLIA [id number] [place] [address] [place] RBC (Bld) [#/Vol] 3.70 10*6/uL Low 4.20-6.00 [facility] Comment on above: Order Comment: Speci men Type: BLOOD SPECIMENOrdering Facility: [facility] Address: [address] [place] [address] Performed By: #### 5 8410-2 ####[facility] LABCLIA [id number] [place] [address] [place] WBC (Bld) [#/Vol] 7.66 10*3/uL Normal 3.70-11.00 [facility] Comment on above: Order Comment: Speci men Type: BLOOD SPECIMENOrdering Facility: [facility] Address: [address] [place] [address] Performed By: #### 5 8410-2 ####[facility] LABIA [id number] [address] [place] CNPRachelle 09-06-2024 CNPN Telephone (PHAMTE) BESSY VALVERDE ([id number]) 1945 M Date Time Provider Department 09/06/24 JONATHAN HAWKINS During your visit today, we recorded the following information about you: Jonathan Hawkins [facility] 09/06/2024 8:24 AM Signed [facility] Ambulatory Pharmacy Anticoagulation Clinic Anticoagulation Episode Summary Anticoagulation Care Providers Provider Role Specialty Phone number George Mata MD [facility] Internal Medicine [phone] Bessy Valverde is a 78 year old [...] missed any doses of warfarin. Jonathan Hawkins [facility] Clinical Pharmacist, Pharmacy Anticoagulation Clinic Pharmacy Anticoagulation Clinic Pager: [phone]. Allergies As of Date: 09/06/2024 (No Known [...] empty stomach, 1/2 hr before meal. - jgooboeia-dnsjee-utzmxj ne-scop () 16.2-0.1037 -0.0194 mg per tablet [...] esophagus [K22.70] (more content not included)... Normal [facility] Comprehensive metabolic 2000 panelon 09-06-2024 Albumin [Mass/Vol] 4.0 g/dL Normal 3.9-4.9 [facility] Comment on above: Order Comment: Speci men Type: BLOOD SPECIMENOrdering Facility: [facility] Address: [address] [place] [address] Performed By: #### 2 4323-8, 47234-7 ####[facility] LABCLIA [id number] [place] [address] [place] ALP [Catalytic activity/Vol] 79 U/L Normal 38-113 [facility] Comment on above: Order Comment: Speci men Type: BLOOD SPECIMENOrdering Facility: [facility] Address: [address] [place] [address] Performed By: #### 2 4323-8, 90993-1 ####[facility] LABCLIA [id number] [place] [address] [place] ALT [Catalytic activity/Vol] 15 U/L Normal 10-54 [facility] Comment on above: Order Comment: Speci men Type: BLOOD SPECIMENOrdering Facility: [facility] Address: [address] [place] [id number] Performed By: #### 2 4323-8, 08865-1 ####[facility] LABCLIA [id number] [place] [id number] [place] Anion gap [Moles/Vol] 12 mmol/L Normal 8-15 [facility] Comment on above: Order Comment: Speci men Type: BLOOD SPECIMENOrdering Facility: [facility] Address: [address] [place] [address] Performed By: #### 2 4323-8, 12296-2 ####[facility] LABCLIA [id number] [place] [address] [place] AST [Catalytic activity/Vol] 21 U/L Normal 14-40 [facility] Comment on above: Order Comment: Speci men Type: BLOOD SPECIMENOrdering Facility: [facility] Address: [address] [place] [address] Performed By: #### 2 4323-8, 86828-6 ####[facility] LABCLIA [id number] [place] [address] [place] Bilirubin [Mass/Vol] 1.3 mg/dL Normal 0.2-1.3 [facility] Comment on above: Order Comment: Speci men Type: BLOOD SPECIMENOrdering Facility: [facility] Address: [address] [place] [address] Performed By: #### 2 4323-8, 67550-1 ####[facility] LABCLIA [id number] [place] [address] [place] Calcium [Mass/Vol] 9.5 mg/dL Normal 8.5-10.2 [facility] Comment on above: Order Comment: Speci men Type: BLOOD SPECIMENOrdering Facility: [facility] Address: [address] [place], [place] [address] Performed By: #### 2 4323-8, 74739-8 ####[facility] LABCLIA [id number] [facility] [place] [address] [place] Chloride [Moles/Vol] 103 mmol/L Normal 98-107 [facility] Comment on above: Order Comment: Speci men Type: BLOOD SPECIMENOrdering Facility: [facility] Address: [address] [place] [address] Performed By: #### 2 4323-8, 23060-8 ####[facility] LABCLIA [id number] [place] [address] [place] CO2 [Moles/Vol] 24 mmol/L Normal 22-30 [facility] Comment on above: Order Comment: Speci men Type: BLOOD SPECIMENOrdering Facility: [facility] Address: [address] [place] [address] Performed By: #### 2 4323-8, 64078-5 ####[facility] LABCLIA [id number] [place] [address] [place] Creatinine [Mass/Vol] 1.66 mg/dL High 0.73-1.22 [facility] Comment on above: Order Comment: Speci men Type: BLOOD SPECIMENOrdering Facility: [facility] Address: [address] [place] [address] Performed By: #### 2 4323-8, 69429-1 ####[facility] LABIA [id number] [place] [address] [place] Creatinine and Glomerular filtration rate.predicted panel (S/P/Bld) 42 mL/min/1.73m??? Low >=60 [facility] Comment on above: Order Comment: Speci men Type: BLOOD SPECIMENOrdering Facility: [facility] Address: [address] [place] [address] Result Comment: Lory mated Glomerular Filtration Rate [...] actual GFR. Performed By: #### 2 4323-8, 03766-8 ####[facility] LABCLIA [id number] [place] [address] [place] Glucose [Mass/Vol] 128 mg/dL High 74-99 [facility] Comment on above: Order Comment: Speci men Type: BLOOD SPECIMENOrdering Facility: [facility] Address: [address] [place] [address] Result Comment: The [place] Diabetes Association (ADA) provides guidance for cutoff [...] Standards of Medical Care in Diabetes 2016, [place] Diabetes Association. Diabetes Care. 2016.39(Suppl 1). Performed By: #### 2 4323-8, 91334-3 ####[facility] LABCLIA [id number] [place] [id number] [place] Potassium [Moles/Vol] 4.8 mmol/L Normal 3.7-5.1 [facility] Comment on above: Order Comment: Speci men Type: BLOOD SPECIMENOrdering Facility: [facility] Address: [address] [place] [address] Performed By: #### 2 4323-8, 49897-0 ####[facility] LABCLIA [id number] [place] [id number] [place] Protein [Mass/Vol] 7.1 g/dL Normal 6.3-8.0 [facility] Comment on above: Order Comment: Speci men Type: BLOOD SPECIMENOrdering Facility: [facility] Address: [facility] [place] [address] Performed By: #### 2 4323-8, 10078-2 ####[facility] LABCLIA [id number] [place] [address] [place] Sodium [Moles/Vol] 139 mmol/L Normal 136-144 [facility] Comment on above: Order Comment: Speci men Type: BLOOD SPECIMENOrdering Facility: [facility] Address: [address] [place] [address] Performed By: #### 2 4323-8, 30294-4 ####[facility] LABIA [id number] [place] [address] [place] Urea nitrogen [Mass/Vol] 38 mg/dL High 9-24 [facility] Comment on above: Order Comment: Speci men Type: BLOOD SPECIMENOrdering Facility: [facility] Address: [address] [place] [address] Performed By: #### 2 4323-8, 06069-9 ####[facility] LABCLIA [id number] [place] [address] [place] HbA1c (Bld)on 09-06-2024 Average glucose Estimated from glycated hemoglobin (Bld) [Mass/Vol] 151 mg/dL Normal [facility] Comment on above: Order Comment: Speci men Type: BLOOD SPECIMENOrdering Facility: [facility] Address: [address] [place] [address] Result Comment: eAG: (Estimated average glucose) is a calculated value from HgbA1c and is mechanical service representative of the average blood glucose level in the last 2-3 month period. Performed By: #### 5 5454-3 ####[facility] LABCLIA [id number] [place] [address] [place] HbA1c (Bld) [Mass fraction] 6.9 % High 4.3-5.6 [facility] Comment on above: Order Comment: Moyi men Type: BLOOD SPECIMENOrdering Facility: [facility] Address: [address] [place] [address] Result Comment: Teresa ican Diabetes Association guidelines indicate that patients with HgbA1c in the range 5.7-6.4% are at increased risk for development of diabetes, and intervention by lifestyle modification may be beneficial. HgbA1c greater or equal to 6.5% is considered diagnostic of diabetes. Performed By: #### 5 5454-3 ####[facility] LABCLIA [id number] [place] [address] [place] Lipid 1996 panelon 5 Cholesterol [Mass/Vol] 125 mg/dL Normal <200 [facility] Comment on above: Order Comment: Marge marni Type: BLOOD SPECIMENOrdering Facility: [facility] Address: [address] [place] [address] Result Comment: <200 mg/dL, Desirable 200-239 mg/dL, Borderline high >239 mg/dL, High Performed By: #### 2 4323-8, 12938-6 ####[facility] LABCLIA [id number] [address] [place] Cholesterol in HDL [Mass/Vol] 34 mg/dL Low >39 [facility] Comment on above: Order Comment: Marge marni Type: BLOOD SPECIMENOrdering Facility: [facility] Address: [address] [place] [address] Result Comment: 40-5 9 mg/dL, Acceptable >59 mg/dL, High: Negative risk factor for coronary heart disease <40 mg/dL, Low: Positive risk factor for coronary heart disease Performed By: #### 2 4323-8, 73732-3 ####[facility] LABCLIA [id number] [address] [place] Cholesterol in LDL [Mass/Vol] 67 mg/dL Normal <100 [facility] Comment on above: Order Comment: Speci men Type: BLOOD SPECIMENOrdering Facility: [facility] Address: [address] [place] [address] Result Comment: <100 mg/dL, Optimal 100-129 mg/dL, Near optimal/above optimal 130-159 mg/dL, Borderline high 160-189 mg/dL, High >189 mg/dL, Very high Secondary prevention optimal LDL Cholesterol levels are recommended to be < 70 mg/dL Performed By: #### 2 4323-8, 42935-4 ####[facility] LABCLIA [id number] [place] [address] [place] Cholesterol in LDL/Cholesterol in HDL [Mass ratio] 1.97 {ratio} Normal <2.54 [facility] Comment on above: Order Comment: Marge grider Type: BLOOD SPECIMENOrdering Facility: [facility] Address: [address] [place] [address] Result Comment: Refe rence: 1. National Cholesterol Education Program ATP III Guideline At-A-Glance Quick Desk Reference: National Heart, Lung, and Blood [place]. National Institutes of Health. 2001: NIH Publication No. 01-3305. 2. An International Atherosclerosis Society position paper: global recommendations for the management of dyslipidemia: executive summary, Atherosclerosis. 2014: 232(2):410-413. Performed By: #### 2 4323-8, 96741-0 ####[facility] LABCLIA [id number] [place] [address] [place] Cholesterol in VLDL [Mass/Vol] 24 mg/dL Normal <30 [facility] Comment on above: Order Comment: Marge marni Type: BLOOD SPECIMENOrdering Facility: [facility] Address: [address] [place] [address] Performed By: #### 2 4323-8, ####[facility] LABCLIA [id number] [address] [address] [place] Cholesterol non HDL [Mass/Vol] 91 mg/dL Normal <130 [facility] Comment on above: Order Comment: Moyrupali men Type: BLOOD SPECIMENOrdering Facility: [facility] Address: [address] [place] [address] Result Comment: <130 mg/dL, Optimal 130-159 mg/dL, Near optimal/above optimal 160-189 mg/dL, Borderline high 190-219 mg/dL, High >219 mg/dL, Very high Secondary prevention optimal non HDL Cholesterol levels are recommended to be <100 mg/dL Performed By: #### 2 4323-8, 67521-3 ####[facility] LABCLIA [id number] [place] [address] [place] Cholesterol.total/Ch olesterol in HDL [Mass ratio] 3.68 {ratio} Normal <5.10 [facility] Comment on above: Order Comment: Speci men Type: BLOOD SPECIMENOrdering Facility: [facility] Address: [address] [place] [address] Performed By: #### 2 4323-8, 32691-5 ####[facility] LABCLIA [id number] [address] [place] FASTING TIME 12 hrs Normal [facility] Comment on above: Order Comment: Speci men Type: BLOOD SPECIMENOrdering Facility: [facility] Address: [address] [place] [address] Performed By: #### 2 4323-8, 90627-3 ####[facility] LABCLIA [id number] [place] [address] [place] Triglyceride [Mass/Vol] 119 mg/dL Normal <150 [facility] Comment on above: Order Comment: Speci men Type: BLOOD SPECIMENOrdering Facility: [facility] Address: [address] [place] [address] Result Comment: <150 mg/dL, Normal 150-199 mg/dL, Borderline high 200-499 mg/dL, High >499 mg/dL, Very high Performed By: #### 2 4323-8, 76799-8 ####[facility] LABCLIA [id number] [place] [address] [place] Guero 08-23-2024 CNPN Telephone (INTMWS) BESSY VALVERDE ([id number]) 1945 M Date Time Provider Department 08/23/24 [...] empty stomach, 1/2 hr before meal. 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/2021 PVD (peripheral vascular disease) with claudica*07/29/2023 Encounter Status:Closed by Francois NGUYEN on 08/23/24 Normal [facility] CNPN Telephone (PHAMTE) BESSY VALVERDE ([id number]) 1945 M Date Time Provider Department 08/23/24 JONATHAN HAWKINS PHAWVE During your visit today, we recorded the following information about you: Jonathan Hawkins [facility] 08/23/2024 8:08 AM Signed [facility] Ambulatory Pharmacy Anticoagulation Clinic Anticoagulation Episode Summary Anticoagulation Care Providers Provider Role Specialty Phone number George Mata MD [facility] Internal Medicine [phone] Bessy Hernandez Nicolle is a 78 year [...] missed any doses of warfarin. Jonathan Hawkins [facility] Clinical Pharmacist, Pharmacy Anticoagulation Clinic Pharmacy Anticoagulation Clinic Pager: [phone] Fregoso (Gerontology Aide)Yin 08/23/2024 5:36 PM Signed PATIENT CALL Received call from Abimael with [employer] INR to report home meter result for patient. [facility] has already addressed this result (see below); nothing further needed at this time. Yin Fregoso CPhT (Rail Equipment Operator) Pharmacy Anticoagulation Clinic Jonathan Hawkins RPh 08/30/2024 [...] an injectable anticoagulant - No Jonathan Hawkins [facility] Allergies As of Date: 08/23/2024 (No [...] empty stomach, 1/2 hr before meal. - lfhbsccdh-rbozjc-kjneao ne-scop () 16.2-0.1037 -0.0194 mg per tablet [...] mg ta (more content not included)... Normal [facility] 08-16-2024 [facility] (ARIK) BESSY VALVERDE ([id number]) 1945 M Date Time Provider Department 08/16/24 JONATHAN HAWKINS During your visit today, we recorded the following information about you: Jonathan Hawkins RPh 08/16/2024 8:50 AM Signed The patient was called to discuss recent INR test results. A voice message was left on patient's Home telephone voice mail. The patient was advised to call the Coumadin Clinic at [phone] and hold warfarin today. On prednisone 40 mg daily PT INR (no units) Date Value 11/19/2021 2.7 biotel 11/05/2021 2.5 10/22/2021 2.8 biotel INR Home CoaguChek (no units) Date Value 08/16/2024 3.5 07/19/2024 3.0 07/05/2024 2.8 Jonathan Hawkins, PharmD,CACP Yessy Walden PSS 08/16/2024 8:56 AM Signed Patient returned the call. Please call the patient at [phone] Jonathan Hawkins RPh 08/16/2024 9:20 AM Signed [facility] Ambulatory Pharm[facility] Anticoagulation Clinic Anticoagulation Episode Summary Anticoagulation Care Providers Provider Role Specialty Phone number MataGeorge morris MD Responsible Internal Medicine [phone] Bessy Valverde is a 78 year old [...] missed any doses of warfarin. Jonathan Hawkins [facility] Clinical Pharmacist, Pharmacy Anticoagulation Clinic Pharmacy Anticoagulation Clinic Pager: [phone]. Allergies As of Date: 08/16/2024 (No Known [...] empty stomach, 1/2 hr before meal. - ovszlbewj-kfqhic-cpzfzp ne-scop () 16.2-0.1037 -0.0194 mg per tablet [...] IF NO PAIN RELIEF, CALL 911 - [facility] 24[facility]26 mg tablet Take 1 tablet by mouth twice daily. - sotalol (BETAPACE) 80 mg tablet Take 2 tablets by mouth twice daily. - spironolactone (ALDACTONE) 25 mg tablet Take 25 mg by mouth once daily. - LOW-DOSE ASPIRIN ORAL Take 1 tablet by mouth once daily. - (more content not included)... Normal [facility] 08-15-2024 CNPN Telephone (INTMWS) BESSY VALVERDE ([id number]) 1945 M Date Time Provider Department 08/15/24 GEORGE MATA INTWS During your visit today, we recorded the following information about you: Galilea Plunkett MA 08/15/2024 10:33 AM Signed ----- Message from George Mata MD sent at 08/13/2024 8:13 PM EST ----- Pulmonary fibrosis, atelectasis, difficult to rule out pneumonia. Schedule follow up if he is not better. 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 Galilea Plunkett MA 08/15/2024 10:36 AM [...] tablet 100 mg in a dose pack (Audience.fmD) Administer TWO pink nirmatrelvir 150 mg tablets [...] empty stomach, 1/2 hr before meal. - rhywfvznl-wfcvjc-crkjtf ne-scop () 16.2-0.1037 -0.0194 mg per tablet [...] Impaired fast (more content not included)... Normal [facility] CNOVon 08-09-2024 CNOV Office Visit (INTMWS ) BESSY VALVERDE ([id number]) 1945 M Date Time Provider Department 08/09/24 10:00 AM GEORGE MATA INTMWS During your visit today, we recorded the following information about you: Temperature Pulse Respiration Blood pressure 97.2 degrees 72/minute 24/minute 112/68 Weight Height 81.8 kg 1.717 m George Mata MD 08/10/2024 5:01 PM Signed This note was created using Trading [employer]. Subjective Patient presents with: Yearly Exam Bessy [...] to GI side effects. 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 (Hcc) Pvd (Peripheral Vascular Disease) With Claudication (Hcc) PAST SURGICAL HISTORY Procedure Laterality Date AICD, DUAL CHAMBER 10/29/2015 dual lead AICD APPENDECTOMY 1993 [facility] INCL FLUOR GDNCE DX W/CELL WASHG SPX 02/04/2013 BRONCHOSCOPY CARDIAC CATH 12/16/2017 Alex CARDIAC CATH 12/14/2018 Right AND Left COLONOSCOPY AND POLYPECTOMY 04/03/2017 COLONOSCOPY SCREENING 05/06/2021 [facility] COLONOSCOPY W/BIOPSY SINGLE/MULTIPLE 07/26/2010 Diminutive polyp of sigmoid/diverticulosis COLONOSCOPY W/BIOPSY SINGLE/MULTIPLE 09/10/2012 CORONARY ARTERY BYP W/VEIN AND ARTERY GRAFT 4 VEIN 04/29/2007 CABG, quadruple grafts CORONARY ARTERY BYPASS GRAFT CORONARY STENT EA VESSEL 02/12/2018 [facility] RCA EGD 05/06/2021 [facility] EGD TRANSORAL BIOPSY SINGLE/MULTIPLE 09/10/2012 EGD W/ BIOPSY SNGL/MLTPL 04/03/2017 [facility] HEART VALVE REPLACEMENT IMPLANTABLE CARDIOVERTER DEFIBRILLATOR [...] Mother Breast Cancer Mother Heart Father of [place] age 85. CABG 13 yrs. prior Heart Sister of CHF age 55, rheumatic heart disease Colon Polyps Sister Ischemic Heart Disease Sister Heart Sister Heart Brother valvular heart disease C (more content not included)... Normal [facility] COVID AND INFLUENZA A/B AND RSV PCR, ROUTINEon 08-09-2024 SARS-CoV-2 (COVID-19) RNA MARILIA+probe Ql (Unsp spec) SARS-COV-2 (AGENT OF COVID-19) RNA: Detected INFLUENZA A RNA: Not detected INFLUENZA B RNA: Not detected RESPIRATORY SYNCYTIAL VIRUS (RSV) RNA: Not detected Abnormal [facility] Comment on above: Performed By: #### C VFLRS ####[facility] LABCLIA [id number] [place] [address] [place] COVID & INFLUENZA A/B & RSV PCR, ROUTINEOrdered By: Violetta Newberry on 08-09-2024 FLUAV RNA MARILIA+probe Ql (Unsp spec) Not detected Not Detected [facility] FLUBV RNA MARILIA+probe Ql (Unsp spec) Not detected Not Detected [facility] Interpretation and review of laboratory results Abnormal [facility] RSV A RNA MARILIA+probe Ql (Unsp spec) Not detected Not Detected [facility] SARS-CoV-2 (COVID-19) RNA MARILIA+probe Ql (Unsp spec) Detected Abnormal See comment [facility] Reference Range (the expected result in uninfected individuals): Not detected [facility] XR CHEST 2V FRONTAL/LATon XR CHEST 2V [...] scans may be helpful for further evaluation Washer Repairman: LANA Transcribe Date/Time: Aug 11 2024 8:51A Dictated by : ALEXI MIR MD This examination was interpreted and the report reviewed and electronically signed by: ALEXI MIR MD on Aug 11 2024 8:55AM EST [id number] Normal [facility] Guero 07-19-2024 CNPN Telephone (PHAMTE) BESSY VALVERDE ([id number]) 1945 M Date Time Provider Department 07/19/24 JONATHAN HAWKINS PHAGARRETT During your visit today, we recorded the following information about you: Jonathan Hawkins [facility] 07/19/2024 10:12 AM Signed [facility] Ambulatory Pharmacy Anticoagulation Clinic Anticoagulation Episode Summary Anticoagulation Care Providers Provider Role Specialty Phone number George Mata MD [facility] Internal Medicine [phone] Bessy Hernandez Nicolle is a 78 year [...] missed any doses of warfarin. Jonathan Hawkins [facility] Clinical Pharmacist, Pharmacy Anticoagulation Clinic Pharmacy Anticoagulation Clinic Pager: [phone]. Allergies As of Date: 07/19/2024 (No Known [...] empty stomach, 1/2 hr before meal. - fokvalknf-lkrxxw-pucqmg ne-scop () 16.2-0.1037 -0.0194 mg per tablet [...] bleeding [R19.5 (more content not included)... Normal [facility] 07-05-2024 CNPN Telephone (PHAMTE) VALVERDEBESSY Mary ([id number]) 1945 M Date Time Provider Department 07/05/24 LIAN COULTER During your visit today, we recorded the following information about you: Lian Coulter, [facility] 07/05/2024 8:46 AM Signed [facility] Ambulatory Pharmacy Anticoagulation Clinic Anticoagulation Episode Summary Anticoagulation Care Providers Provider Role Specialty Phone number George Mtaa MD [facility] Internal Medicine [phone] Bessy Valverde is a 78 year old [...] ALLERGIES No Known Allergies Indication for Warfarin: residential (current) use of anticoagulants Permanent atrial fibrillation [...] missed any doses of warfarin. Lian Coulter [facility] Clinical Pharmacist, Pharmacy Anticoagulation Clinic Pharmacy Anticoagulation Clinic Pager: [phone]. Jonathan Hawkins [facility] 07/19/2024 8:25 AM Signed Patient was due to test INR today. Will continue to monitor for results. Follow up in one week if no results received. 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 - fjzbcqkuy-fhzydk-mpovff ne-scop () 16.2-0.1037 -0.0194 mg per tablet [...] PURE HYPERCHOLESTER (more content not included)... Normal [facility] CNPNon 06-21-2024 CNPN Telephone (PHAMTE) BESSY VALVERDE ([id number]) 1945 M Date Time Provider Department 06/21/24 JONATHAN HAWKINS During your visit today, we recorded the following information about you: Jonathan Hawkins [facility] 06/21/2024 8:33 AM Signed [facility] Ambulatory Pharmacy Anticoagulation Clinic Anticoagulation Episode Summary Anticoagulation Care Providers Provider Role Specialty Phone number George Mata MD [facility] Internal Medicine [phone] Bessy Hernandez Valverde is a 78 year [...] missed any doses of warfarin. Jonathan Hawkins [facility] Clinical Pharmacist, Pharmacy Anticoagulation Clinic Pharmacy Anticoagulation Clinic Pager: [phone]. Allergies As of Date: 06/21/2024 (No Known [...] empty stomach, 1/2 hr before meal. - sgzakxiaf-nqnlqk-olhdyu ne-scop () 16.2-0.1037 -0.0194 mg per tablet [...] 05/19/2005 Esophageal (more content not included)... Normal [facility] 06-07-2024 [facility] BESSY VALVERDE ([id number]) 1945 M Date Time Provider Department 06/07/24 JONATHAN HAWKINS During your visit today, we recorded the following information about you: Jonathan Hawkins [facility] 06/07/2024 8:40 AM Signed [facility] Ambulatory Pharmacy Anticoagulation Clinic Anticoagulation Episode Summary Anticoagulation Care Providers Provider Role Specialty Phone number George Mata MD [facility] Internal Medicine [phone] Bessy Valverde is a 78 year old [...] missed any doses of warfarin. Jonathan Hawkins [facility] Clinical Pharmacist, Pharmacy Anticoagulation Clinic Pharmacy Anticoagulation Clinic Pager: [phone]. Allergies As of Date: 06/07/2024 (No Known [...] empty stomach, 1/2 hr before meal. - aymfjcogw-mgzwoi-cdfyvs ne-scop () 16.2-0.1037 -0.0194 mg per tablet [...] bleeding [R19. (more content not included)... Normal [facility]ero 05-24-2024 CNPN Telephone ([employer]) BESSY VALVERDE ([id number]) 1945 M Date Time Provider Department 05/24/24 JONATHAN HAWKINS During your visit today, we recorded the following information about you: Jonathan Hawkins [facility] 05/24/2024 8:04 AM Signed [facility] Ambulatory Pharmacy Anticoagulation Clinic Anticoagulation Episode Summary Anticoagulation Care Providers Provider Role Specialty Phone number MataGeorge gerber MD [facility] Internal Medicine [phone] Bessy Valverde is a 78 year old [...] missed any doses of warfarin. Jonathan Hawkins [facility] Clinical Pharmacist, Pharmacy Anticoagulation Clinic Pharmacy Anticoagulation Clinic Pager: [phone]. Allergies As of Date: 05/24/2024 (No Known [...] empty stomach, 1/2 hr before meal. - dqjxqgcia-begxzc-fxgqvv ne-scop () 16.2-0.1037 -0.0194 mg per tablet [...] bleeding [R19. (more content not included)... Normal [facility] 05-10-2024 OCTAV[facility] Telephone (PHARAV) BESSY VALVERDE ([id number]) 1945 M Date Time Provider Department 05/10/24 ELLIOTT GLEASON During your visit today, we recorded the following information about you: Elliott Gleason RPh 05/10/2024 8:08 AM Signed [facility] Ambulatory Pharmacy Anticoagulation Clinic Anticoagulation Episode Summary Anticoagulation Care Providers Provider Role Specialty Phone number George Mata MD [facility] Internal Medicine [phone] Bessy Valverde is a 78 year old [...] ALLERGIES No Known Allergies Indication for Warfarin: residential (current) use of anticoagulants Permanent atrial fibrillation [...] Patient denies need for refills. Elliott Gleason [facility] Clinical Pharmacist, Pharmacy Anticoagulation Clinic Pharmacy Anticoagulation Clinic Pager: [phone]. 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 - iwkgpszxj-mhsxlx-zhwmws ne-scop () 16.2-0.1037 -0.0194 mg per tablet [...] GI bleedin (more content not included)... Normal [facility] CNPNon 04-26-2024 CNPN Telephone (PHAMTE) NICOLLEBESSY Mary ([id number]) 1945 M Date Time Provider Department 04/26/24 LIAN COULTER PHAGARRETT During your visit today, we recorded the following information about you: Lian Coulter, [facility] 04/26/2024 9:35 AM Signed [facility] Ambulatory Pharmacy Anticoagulation Clinic Anticoagulation Episode Summary Anticoagulation Care Providers Provider Role Specialty Phone number George Mata MD [facility] Internal Medicine [phone] Bessy Hernandez Nicolle is a 78 year [...] ALLERGIES No Known Allergies 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 Lian Coulter [facility] Clinical Pharmacist, Pharmacy Anticoagulation Clinic Pharmacy Anticoagulation Clinic Pager: [phone]. 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 - fqisiqrnl-gowzra-xguten ne-scop () 16.2-0.1037 -0.0194 mg per tablet [...] 07/26/2010 07/24/2022 (more content not included)... Normal [facility] CNPNon 04-12-2024 CNPN Telephone (PHAMTE) NICOLLEBESSY Mary ([id number]) 1945 M Date Time Provider Department 04/12/24 LIAN COULTER During your visit today, we recorded the following [facility] 8:58 AM Signed [facility] Ambulatory Pharmacy Anticoagulation Clinic Anticoagulation Episode Summary Anticoagulation Care Providers Provider Role Specialty Phone number George Mata MD [facility] Internal Medicine [phone] Bessy Hernandez Valverde is a 78 year [...] ALLERGIES No Known Allergies Indication for Warfarin: residential (current) use of anticoagulants Permanent atrial fibrillation [...] Patient denies need for refills. Lian Coulter [facility] Clinical Pharmacist, Pharmacy Anticoagulation Clinic Pharmacy Anticoagulation Clinic Pager: [phone]. 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 - jmirtddnq-yrtngn-zcqqwl ne-scop () 16.2-0.1037 -0.0194 mg per tablet [...] GI bleed (more content not included)... Normal [facility] CNPNon 03-29-2024 CNPN Telephone (PHAMTE) NICOLLEBESSY Mary ([id number]) 1945 M Date Time Provider Department 03/29/24 JONATHAN HAWKINS PHAGARRETT During your visit today, we recorded the following information about you: Jonathan Hawkins [facility] 03/29/2024 8:01 AM Signed [facility] Ambulatory Pharmacy Anticoagulation Clinic Anticoagulation Episode Summary Anticoagulation Care Providers Provider Role Specialty Phone number George Mata MD [facility] Internal Medicine [phone] Bessy Hernandez Nicolle is a 78 year [...] INR check scheduled on 04/12/2024 Jonathan Hawkins [facility] Clinical Pharmacist, Pharmacy Anticoagulation Clinic Pharmacy Anticoagulation Clinic Pager: [phone]. Allergies As of Date: 03/29/2024 (No Known [...] empty stomach, 1/2 hr before meal. - kzpdzwnic-wweyla-twoesq ne-scop () 16.2-0.1037 -0.0194 mg per tablet [...] post imp (more content not included)... Normal [facility] CNPNon 03-15-2024 CNPN Telephone (PHAMTE) BESSY VALVERDE ([id number]) 1945 M Date Time Provider Department 03/15/24 JORDYN GARCIA PHAMTE During your visit today, we recorded the following information about you: Jordyn Garcia [facility] 03/15/2024 8:01 AM Signed [facility] Ambulatory Pharmacy Anticoagulation Clinic Anticoagulation Episode Summary Anticoagulation Care Providers Provider Role Specialty Phone number George Mata MD Responsible Internal Medicine [phone] Bessy Hernandez Nicolle is a 78 year [...] Pharmacy Anticoagulation Clinic Pharmacy Anticoagulation Clinic Pager: [phone]. Jordyn Garcia RPh 03/28/2024 12:33 PM Signed [...] empty stomach, 1/2 hr before meal. - tskhclmag-oxvklu-gazwsl ne-scop () 16.2-0.1037 -0.0194 mg per tablet [...] blood te (more content not included)... Normal [facility] CNOVon 03-09-2024 CNOV Office Visit (INTMWS ) BESSY VALVERDE ([id number]) 1945 M Date Time Provider Department 03/09/24 2:40 PM GEORGE MATA INTMWS During your visit today, we recorded the following information about you: Temperature Pulse Respiration Blood pressure 97.1 degrees 64/minute 18/minute 104/62 Weight 80.7 kg George Mata MD 03/09/2024 3:38 PM Signed This note was created using [employer]. Subjective Bessy Valverde is a 78 year old male. He scraped his left arm 1.5 weeks ago, and sustained a skin tear. There was oozing so he applied a bandage over the weekend that has dried up and adhered. His asthma was worsening as it typically did when ragweed was up. Diabetes was increasing. 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 Review of Systems Constitutional: Negative for [...] Valve Stenosis Chronic Systolic Heart Failure (Hcc) Care Home (Current) Use of Anticoagulants Gout of Foot [...] on empty stomach, 1/2 hr before meal. tkpdfgvhw-tgodus-pwgsqc ne-scop () 16.2-0.1037 -0.0194 mg per tablet [...] mg/dL 0.9 (more content not included)... Normal [facility] 03-08-2024 CNPN Telephone (PHAMTE) BESSY VALVERDE ([id number]) 1945 M Date Time Provider Department 03/08/24 JONATHAN HAWKINS During your visit today, we recorded the following information about you: Jonathan Hawkins [facility] 03/08/2024 7:58 AM Signed [facility] Ambulatory Pharmacy Anticoagulation Clinic Anticoagulation Episode Summary Anticoagulation Care Providers Provider Role Specialty Phone number George Mata MD [facility] Internal Medicine [phone] Bessy Hernandez Nicolle is a 78 year [...] verbalizes understanding of the plan. Jonathan Hawkins [facility] Clinical Pharmacist, Pharmacy Anticoagulation Clinic Pharmacy Anticoagulation Clinic Pager: [phone]. Allergies As of Date: 03/08/2024 (No Known [...] empty stomach, 1/2 hr before meal. - wjhlawtpn-cdglzt-kbxfra ne-scop () 16.2-0.1037 -0.0194 mg per tablet [...] INR testing) *more content not included)... Normal [facility] Prothrombin Time w/INRon INR Coag (PPP) [Relative time] 1.3 {INR} Normal [facility] Comment on above: Performed By: #### L [id number] #### [facility] Laboratory [address] [place], [address] PT Coag (PPP) [Time] 15.8 s High 11.7-14.9 [facility] Comment on above: Performed By: #### L [id number] #### [facility] [address] [place], [place], [id number] LABORATORYOrdered By: Chelita De Leon on 11-28-2021 [...] Interpretation Code AO Chemistry S ECHOon 11-06-2021 [facility] INR FINGERSTICK B/Oon 2021 INR Coag (Bld) [Relative time] 2.5 {INR} [facility] Quality Check No [facility] LABORATORYOrdered By: Zachery Ashraf on 10-31-2021 Calcium [...] Glucose Testing Reason Routine (07/31/21 10:54 AM) [facility] Glucose [Mass/Vol] 105 mg/dL Invalid Interpretation Code 82 - 115 mg/dL [facility] LABORATORYOrdered By: Dianelys Sanchez on 07-31-2021 Blood Glucose Testing Reason Routine (07/31/21 7:22 AM) [facility] Glucose [Mass/Vol] 129 mg/dL Invalid Interpretation Code [...] Glucose Testing Reason Routine (07/30/21 9:46 PM) [facility] Glucose [Mass/Vol] 111 mg/dL Invalid Interpretation Code 82 - 115 mg/dL [facility] LABORATORYOrdered By: Darin Watson on 07-30-2021 aPTT [...] Impression: 1. No acute fracture or dislocation. Washer Repairman: PSCB Transcribe Date/Time: Jul 12 2021 9:33A Dictated by : FCO ARRIETA MD This examination was interpreted and the report reviewed and electronically signed by: FCO ARRIETA MD on Jul 12 2021 9:35AM [facility] DIVISION OF RADIOLOGY Provider, [facility] - 07/12/2021 * * *Final Report* * [...] Impression: 1. No acute fracture or dislocation. Washer Repairman: LANA Transcribe Date/Time: Jul 12 2021 9:33A Dictated by : FCO ARRIETA MD This examination was interpreted and the report reviewed and electronically signed by: FCO ARRIETA MD on Jul 12 2021 9:35AM EST [facility] Radiology Study observation (narrative) [facility] XR Foot - left AP and Latera l and obliqueOrdered By: Ccf Provider on 07-12-2021 [facility] XR Chest PA and Lateralon IMPRESSION: Areas of atelectasis and/or fibrosis bilaterally are grossly stable. Cardiomegaly Washer Repairman: LANA Transcribe Date/Time: Mar 19 2021 12:19P Dictated by : ALEXI MIR MD This examination was interpreted and the report reviewed and electronically signed by: ALEXI MIR MD on Mar 19 2021 12:20PM [facility] DIVISION OF RADIOLOGY * * *Final Report* [...] soft tissues: Unremarkable. DIVISION OF RADIOLOGY Provider, [facility] Kristie [facility] - 03/19/2021 * * *Final Report* * [...] and/or fibrosis bilaterally are grossly stable. Cardiomegaly Washer Repairman: PSCB Transcribe Date/Time: Mar 19 2021 12:19P Dictated by : ALEXI MIR MD This examination was interpreted and the report reviewed and electronically signed by: ALEXI MIR MD on Mar 19 2021 12:20PM EST [facility] Radiology Study observation (narrative) [facility] XR Chest PA and LateralOrder ed By: Ccf Provider on 03-19-2021 [facility] Office Visit: c-scopeon 03-10 Documentation of current medications (procedure) Done Invalid Interpretation Code [facility] [employer] Work Phone: Fall risk assessment No Invalid Interpretation Code [facility] Work Phone: Tobacco smoking status NHIS Never Invalid Interpretation Code [facility] [employer] Work Phone: Tobacco use HS Former smoker Invalid Interpretation Code [facility] [employer] Work Phone: Vital Signs Date Time Vital Sign Value Performing Clinician Facility 01-10-2025 11:42-0400 Body mass index (BMI) [Ratio] 27.44 kg/m2 George Mata MD Work Phone: [facility] 01-10-2025 11:42-0400 Body weight 80.9 kg George Mata MD Work Phone: [facility] 01-10-2025 11:42-0400 Diastolic blood pressure 62 mm[Hg] George Mata MD Work Phone: [facility] 01-10-2025 11:42-0400 Heart rate 68 /min George Mata MD Work Phone: [facility] 01-10-2025 11:42-0400 SaO2% (BldA) [Mass fraction] 98 % George Mata MD Work Phone: [facility] 01-10-2025 11:42-0400 Systolic blood pressure 110 mm[Hg] George Mata MD Work Phone: [facility] 11-01-2024 08:53-0400 Body mass index (BMI) [Ratio] 26.86 kg/m2 George Mata MD Work Phone: [facility] 11-01-2024 08:53-0400 Body temperature 98.01 [degF] George Mata MD Work Phone: [facility] 11-01-2024 08:53-0400 Body weight 79.2 kg George Mata MD Work Phone: [facility] 11-01-2024 08:53-0400 Diastolic blood pressure 60 mm[Hg] George Mata MD Work Phone: [facility] 11-01-2024 08:53-0400 Heart rate 68 /min George Mata MD Work Phone: [facility] 11-01-2024 08:53-0400 Respiratory rate 20 /min George Mata MD Work Phone: [facility] 11-01-2024 08:53-0400 Systolic blood pressure 106 mm[Hg] George Mata MD Work Phone: [facility] 08-09-2024 10:01-0500 Body height 171.7 cm George Mata MD Work Phone: [facility] 08-09-2024 10:01-0500 Body mass index (BMI) [Ratio] 27.75 kg/m2 George Mata MD Work Phone: [facility] 08-09-2024 10:01-0500 Body temperature 97.2 [degF] George Mata MD Work Phone: [facility] 08-09-2024 10:01-0500 Body weight 81.8 kg George Mata MD Work Phone: [facility] 08-09-2024 10:01-0500 Diastolic blood pressure 68 mm[Hg] George Mata MD Work Phone: [facility] 08-09-2024 10:01-0500 Heart rate 72 /min George Mata MD Work Phone: [facility] 08-09-2024 10:01-0500 Respiratory rate 24 /min George Mata MD Work Phone: [facility] 08-09-2024 10:01-0500 SaO2% (BldA) [Mass fraction] 97 % George Mata MD Work Phone: [facility] 08-09-2024 10:01-0500 Systolic blood pressure 112 mm[Hg] George Mata MD Work Phone: [facility] 03-09-2024 14:25-0400 Body mass index (BMI) [Ratio] 26.59 kg/m2 George Mata MD Work Phone: [facility] 03-09-2024 14:25-0400 Body temperature 97.11 [degF] George Mata MD Work Phone: [facility] 03-09-2024 14:25-0400 Body weight 80.74 kg George Mata MD Work Phone: [facility] 03-09-2024 14:25-0400 Diastolic blood pressure 62 mm[Hg] George Mata MD Work Phone: [facility] 03-09-2024 14:25-0400 Heart rate 64 /min George Mata MD Work Phone: [facility] 03-09-2024 14:25-0400 Respiratory rate 18 /min George Mata MD Work Phone: [facility] 03-09-2024 14:25-0400 Systolic blood pressure 104 mm[Hg] George Mata MD Work Phone: [facility] 11-10-2023 11:39-0400 Body temperature 96.91 [degF] George Mata MD Work Phone: [facility] 11-10-2023 11:39-0400 Body weight 80.74 kg George Mata MD Work Phone: [facility] 11-10-2023 11:39-0400 Diastolic blood pressure 64 mm[Hg] George Mata MD Work Phone: [facility] 11-10-2023 11:39-0400 Heart rate 64 /min George Mata MD Work Phone: [facility] 11-10-2023 11:39-0400 Respiratory rate 18 /min George Mata MD Work Phone: [facility] 11-10-2023 11:39-0400 Systolic blood pressure 108 mm[Hg] George Mata MD Work Phone: [facility] 01-23-2023 09:00-0400 Body weight 81.19 kg George Mata MD Work Phone: [facility] 01-23-2023 09:00-0400 Diastolic blood pressure 60 mm[Hg] George Mata MD Work Phone: [facility] 01-23-2023 09:00-0400 Heart rate 70 /min George Mata MD Work Phone: [facility] 01-23-2023 09:00-0400 SaO2% (BldA) [Mass fraction] 98 % George Mata MD Work Phone: [facility] 01-23-2023 09:00-0400 Systolic blood pressure 110 mm[Hg] George Mata MD Work Phone: [facility] 07-24-2022 13:08-0500 Body height 174.2 cm George Mata MD Work Phone: [facility] 07-24-2022 13:08-0500 Body temperature 97.3 [degF] George Mata MD Work Phone: [facility] 07-24-2022 13:08-0500 Body weight 80.74 kg George Mata MD Work Phone: [facility] 07-24-2022 13:08-0500 Diastolic blood pressure 58 mm[Hg] George Mata MD Work Phone: [facility] 07-24-2022 13:08-0500 Heart rate 68 /min George Mata MD Work Phone: [facility] 07-24-2022 13:08-0500 Respiratory rate 16 /min George Mata MD Work Phone: [facility] 07-24-2022 13:08-0500 Systolic blood pressure 114 mm[Hg] George Mata MD Work Phone: [facility] 10-24-2021 13:45-0400 diastolic 63 mm[Hg] DEANA SIDDIQI MD [facility] 10-24-2021 13:45-0400 Heart rate 70 /min DEANA SIDDIQI MD [facility] 10-24-2021 13:45-0400 Respiratory rate 16 /min DEANA SIDDIQI MD [facility] 10-24-2021 13:45-0400 systolic 99 mm[Hg] DEANA SIDDIQI MD [facility] 10-24-2021 11:15-0400 diastolic 70 mm[Hg] DEANA SIDDIQI MD [facility] 10-24-2021 11:15-0400 Heart rate 72 /min DEANA SIDDIQI MD [facility] 10-24-2021 11:15-0400 Respiratory rate 16 /min DEANA SIDDIQI MD [facility] 10-24-2021 11:15-0400 systolic 106 mm[Hg] DEANA SIDDIQI MD [address] [place] [address] 10-24-2021 08:39-0400 Body height 175.3 cm DEANA SIDDIQI MD [address] [place] [address] 10-24-2021 08:39-0400 Body temperature 98.06 [degF] DEANA SIDDIQI MD [address] [place] [address] 10-24-2021 08:39-0400 Body weight 86.7 kg DAENA SIDDIQI MD [address] [place] [address] 10-24-2021 08:39-0400 diastolic 60 mm[Hg] DEANA SIDDIQI MD [address] [place] [address] 10-24-2021 08:39-0400 Heart rate 70 /min DEANA SIDDIQI MD [address] [place] [address] 10-24-2021 08:39-0400 Respiratory rate 16 /min DEANA SIDDIQI MD [facility] 10-24-2021 08:39-0400 systolic 114 mm[Hg] DEANA SIDDIQI MD [address] [place] [address] 07-31-2021 11:12-0500 Heart rate 72 /min DR BRIONNA VALENTE MD [facility] 07-31-2021 11:12-0500 Reason For Taking VItal Signs DR BRIONNA VALENTE MD [facility] 07-31-2021 10:54-0500 Body temperature 98.24 [degF] DR BRIONNA VALENTE MD [facility] 07-31-2021 10:54-0500 Diastolic blood pressure 58 mm[Hg] DR BRIONNA VALENTE MD [facility] 07-31-2021 10:54-0500 Heart rate 72 /min DR BRIONNA VALENTE MD [facility] 07-31-2021 10:54-0500 Reason For Taking VItal Signs DR BRIONNA VALENTE MD [facility] 07-31-2021 10:54-0500 Respiratory rate 18 /min DR BRIONNA VALENTE MD [facility] 07-31-2021 10:54-0500 Systolic blood pressure 118 mm[Hg] DR BRIONNA VALENTE MD [facility] 07-31-2021 07:22-0500 Heart rate 72 /min DR BRIONNA VALENTE MD [facility] 07-31-2021 07:19-0500 Body temperature 98.24 [degF] DR BRIONNA VALENTE MD [facility] 07-31-2021 07:19-0500 Diastolic blood pressure 70 mm[Hg] DR BRIONNA VALENTE MD [facility] 07-31-2021 07:19-0500 Mean blood pressure 83 mm[Hg] DR BRIONNA VALENTE MD [facility] 07-31-2021 07:19-0500 Reason For Taking VItal Signs DR BRIONNA VALENTE MD [facility] 07-31-2021 07:19-0500 Respiratory rate 18 /min DR BRIONNA VALENTE MD [facility] 07-31-2021 07:19-0500 Systolic blood pressure 110 mm[Hg] DR BRIONNA VALETNE MD [facility] 07-31-2021 07:02-0500 Heart rate 74 /min DR BRIONNA VALENTE MD [facility] 07-31-2021 07:02-0500 Respiratory rate 18 /min DR BRIONNA VALENTE MD [facility] 07-31-2021 04:33-0500 Body temperature 97.88 [degF] DR BRIONNA VALENTE MD [facility] 07-31-2021 04:33-0500 Diastolic blood pressure 76 mm[Hg] DR BRIONNA VALENTE MD [facility] 07-31-2021 04:33-0500 Mean blood pressure 85 mm[Hg] DR BRIONNA VALENTE MD [facility] 07-31-2021 04:33-0500 Systolic blood pressure 104 mm[Hg] DR BRIONNA VALENTE MD [facility] 07-30-2021 19:35-0500 Heart rate 72 /min DR BRIONNA VALENTE MD [facility] 07-30-2021 16:33-0500 Diastolic Blood Pressure NBP [address] BRIONNA VALENTE MD [facility] 07-30-2021 16:33-0500 Heart rate 71 /min DR BRIONNA VALENTE MD [facility] 07-30-2021 16:33-0500 Mean blood pressure 68 mm[Hg] DR BRIONNA VALENTE MD [facility] 07-30-2021 16:33-0500 Systolic Blood Pressure NBP [address] BRIONNA VALENTE MD [facility] 07-30-2021 14:55-0500 Mean blood pressure 80 mm[Hg] DR BRIONNA VALENTE MD [facility] 07-30-2021 13:40-0500 Heart rate 70 /min DR BRIONNA VALENTE MD [facility] 07-30-2021 10:59-0500 Diastolic Blood Pressure NBP [address] BRIONNA VALENTE MD [facility] 07-30-2021 10:59-0500 Mean blood pressure 82 mm[Hg] DR BRIONNA VALENTE MD [facility] 07-30-2021 10:59-0500 Systolic Blood Pressure NBP [address] BRIONNA VALENTE MD [facility] 07-30-2021 08:52-0500 Diastolic Blood Pressure NBP [address] BRIONNA VALENTE MD [facility] 07-30-2021 08:52-0500 Mean blood pressure 85 mm[Hg] DR BRIONNA VALENTE MD [facility] 07-30-2021 08:52-0500 Systolic Blood Pressure NBP [address] BRIONNA VALENTE MD [facility] 07-30-2021 04:36-0500 Body temperature 96.26 [degF] DR BRIONNA VALENTE MD [facility] 07-30-2021 04:36-0500 SaO2% (BldA) [Mass fraction] 95.9 % DR BRIONNA VALENTE MD [facility] 07-25-2021 20:25-0500 Body height 175.[address] BRIONNA VALENTE MD [facility] 07-25-2021 20:25-0500 Body weight 79.[address] BRIONNA VALENTE MD [facility] 07-25-2021 20:25-0500 Body weight 25.94 kg/m2 DR BRIONNA VALENTE MD [facility] 07-25-2021 12:48-0500 Body weight 81.[address] BRIONNA VALENTE MD [facility] 03-25-2017 09:38-0400 BMI (Body Mass Index) 27.17 kg/m2 Kaveh Magallon MD [facility] Work Phone: 03-25-2017 09:38-0400 BP Diastolic 83 mm[Hg] Kaveh Magallon MD [facility] Work Phone: 03-25-2017 09:38-0400 BP Systolic 117 mm[Hg] Kaveh Magallon MD [facility] Work Phone: 03-25-2017 09:38-0400 Height 175.26 cm Kaveh Magallon MD [facility] Work Phone: 03-25-2017 09:38-0400 Pulse (Heart Rate) 70 /min Kaveh Magallon MD [facility] Work Phone: 03-25-2017 09:38-0400 Respiratory Rate 18 /min Kaveh Magallon MD [facility] Work Phone: 03-25-2017 09:38-0400 Weight 83.46 kg Kaveh Magallon MD [facility] Work Phone: Encounters Encounter Date Encounter Type Care Provider Facility Start: 02-28-2025 End: 02-28-2025 Telephone encounter Jonathan Hawkins [facility] Comment on above: Anticoagulation Tele phone Fu (Home INR result) Start: 02-24-2025 End: 02-24-2025 ambulatory VERONIQUE TOUSSAINT MD Facility:A Start: 02-24-2025 End: 02-24-2025 SAME DAY STAY VERONIQUE TOUSSAINT MD [facility] Start: 02-21-2025 End: 02-21-2025 Telephone encounter Jonathan Hawkins [facility] Comment on above: Anticoagulation Tele phone Fu (Home INR result) Start: 02-14-2025 End: 02-14-2025 Telephone encounter Jonathan Hawkins [facility] Comment on above: Anticoagulation Tele phone Fu (Home INR result) Start: 02-13-2025 End: 02-13-2025 Admission to establishment VERONIQUE TOUSSAINT MD [facility] Start: 02-13-2025 End: 02-13-2025 ambulatory VERONIQUE TOUSSAINT MD Facility:A Start: 02-09-2025 ambulatory VERONIQUE TOUSSAINT MD [facility] ility:A Start: 02-07-2025 End: 02-07-2025 Telephone encounter Jonathan Ross [facility] Comment on above: Anticoagulation Tele phone Fu (Home INR result) Start: 01-31-2025 End: 01-31-2025 Telephone encounter Jonathan Hawkins [facility] Comment on above: Anticoagulation Tele phone Fu (Home INR result) Start: 01-30-2025 End: 01-30-2025 Telephone encounter George Mata MD Work Phone: Internal Medicine Day Comment on above: Patient Update Start: 01-24-2025 End: 01-24-2025 Telephone encounter Jonathan Hawkins [facility] Comment on above: Anticoagulation Tele phone Fu (Home INR result) Start: 01-17-2025 End: 01-17-2025 Telephone encounter Jonathan Hawkins [facility] Comment on above: Anticoagulation Tele phone Fu (Home INR result) Start: 01-10-2025 End: 01-10-2025 Telephone encounter Jonathan Hawkins [facility] Comment on above: Anticoagulation Tele phone Fu (Home INR result) Start: 01-10-2025 End: 01-10-2025 Patient encounter procedure George Mata MD Work Phone: [facility] [place] Comment on above: Permanent atrial fib rillation (HCC) (Primary Dx); Chronic systolic heart failure (HCC); Interstitial lung disease (HCC); Controlled type 2 diabetes mellitus with stage 3 chronic kidney disease, without long-term current use of insulin (HCC); Essential hypertension Start: 01-10-2025 End: 01-10-2025 ambulatory GEORGE MAAT Facility:[facility] Start: 01-09-2025 End: 01-09-[address] GEORGE MATA MD Facility:[facility] Start: 01-09-2025 End: 01-09-2025 Patient encounter procedure GATITO ROSE MD [facility] Start: 01-05-2025 End: 01-05-2025 Telephone encounter George Mata MD Work Phone: [facility] [place] Comment on above: Patient Update Start: 12-31-2024 End: 01-04-2025 Evaluation and management of inpatient DR CARLOS RIDLEY MD [facility] Start: 12-26-2024 End: 12-26-2024 Telephone encounter [facility] Comment on above: Anticoagulation Tele phone Fu Start: 12-16-2024 End: 12-16-[address] George Mata MD Work Phone: [facility] Work Phone: Start: 12-16-2024 End: 12-16-[address] Mackenzie Iverson DO -Laboratory Work Phone: Start: 12-16-2024 End: 12-16-2024 ambulatory Mackenzie Iverson Facility:[facility] Start: 12-13-2024 End: 12-13-2024 Telephone encounter Jonathan Hawkins [facility] Comment on above: Anticoagulation Tele phone Fu (Home INR result) Start: 11-29-2024 End: 11-29-2024 Telephone encounter Jonathan Hawkins [facility] Comment on above: [...] 11-15-2024 End: 11-15-2024 Telephone encounter Elliott Gleason [facility] Comment on above: Anticoagulation Tele phone Fu (Home INR result ) Start: 11-01-2024 End: 11-01-2024 Telephone encounter Lian Coulter [facility] Comment on above: Anticoagulation Tele phone Fu (Home INR) Start: 11-01-2024 End: 11-01-2024 ambulatory GEORGE MATA Facility:[facility] Start: 11-01-2024 End: 11-01-2024 Patient encounter procedure George Mata MD Work Phone: [facility] [place] Comment on above: Lumbosacral radiculo marina (Primary Dx); Encounter for immunization; Asthma, moderate persistent, well-controlled; Atherosclerosis of [place] coronary artery of [place] heart without angina pectoris; Controlled type 2 diabetes mellitus with stage 3 chronic kidney disease, without long-term current use of insulin (HCC); Chronic systolic heart failure (HCC); Anemia due to stage 3b chronic kidney disease (HCC) (HCC); Irritable bowel syndrome, unspecified type; Gout of foot, unspecified cause, unspecified chronicity, unspecified laterality Start: 10-18-2024 End: 10-18-2024 Telephone encounter Jonathan Hawkins [facility] Comment on above: Anticoagulation Tele phone Fu (Home INR result) Start: 10-17-2024 End: 10-17-[address] George Mata MD Work Phone: [facility] Work Phone: Start: 10-17-2024 End: 10-17-[address] Faizan Pierce MD -Cardiovascular Services Work Phone: Start: 10-17-2024 End: 10-17-2024 ambulatory George Mata Facility:[facility] Start: 10-04-2024 End: 10-04-2024 Telephone encounter Jonathan Hawkins [facility] Comment on above: Anticoagulation Tele phone Fu (Home INR result) Start: 10-04-2024 ambulatory Mackenzie Iverson Facility: [facility] Start: 09-20-2024 End: 09-20-2024 Telephone encounter Jonathan Hawkins [facility] Comment on above: Anticoagulation Tele phone Fu (Home INR result) Start: 09-13-2024 End: 09-16-2024 Telephone encounter George Mata MD Work Phone: [facility] [place] Comment on above: Results (Labs/consul t nephrology ) Start: 09-06-2024 End: 09-06-2024 Telephone encounter Jonathan Hawkins [facility] Comment on above: Anticoagulation Tele phone Fu (Home INR result) Start: 09-06-2024 End: 09-06-2024 ambulatory GEORGE MATA Facility:[facility] Start: 08-23-2024 End: 08-23-2024 Telephone encounter Jonathan Hawkins [facility] Comment on above: Anticoagulation Tele phone Fu (Home INR result) Declined podiatry re ferral Start: 08-16-2024 End: 08-16-2024 Telephone encounter Jonathan Hawkins [facility] Comment on above: Anticoagulation Tele phone Fu (Home INR result) Start: 08-15-2024 End: 08-15-2024 Telephone encounter George Mata MD Work Phone: [facility] [place] Comment on above: Results (xray) Start: 08-09-2024 End: 08-09-2024 Subsequent hospital visit by physician Karen [facility] Work Phone: Radiology Comment on above: Acute cough [R05.1] Start: 08-09-2024 End: 08-09-2024 ambulatory GEORGE MATA Facility:[facility] Start: 08-09-2024 End: 08-09-2024 Patient encounter procedure George Mata MD Work Phone: [facility] [place] Comment on above: Routine medical exam (Primary Dx); Pure hypercholesterolemia; Controlled type 2 diabetes mellitus with stage 3 chronic kidney disease, without long-term current use of insulin (HCC); Chronic systolic heart failure (HCC); Asthma, moderate persistent, well-controlled; Byers's esophagus with dysplasia; Irritable bowel syndrome, unspecified type; Anticoagulated on Coumadin ( home INR testing); Atherosclerosis of [place] coronary artery of [place] heart without angina pectoris; Essential hypertension; Acute cough; Chronic ankle pain, unspecified laterality; PVD (peripheral vascular disease) with claudication (HCC); Thrombocytopenia (HCC); Ventricular tachycardia (HCC); Interstitial lung disease (HCC) Start: 08-09-2024 End: 08-09-2024 Patient encounter status George Mata MD Work Phone: [facility] Start: 07-19-2024 End: 07-19-2024 Telephone encounter Jonathan Hawkins [facility] Comment on above: Anticoagulation Tele phone Fu (Home INR result) Start: 07-05-2024 End: 07-05-2024 Telephone encounter Lian Coulter [facility] Comment on above: Anticoagulation Tele phone Fu (Home INR) Start: 06-21-2024 End: 06-21-2024 Telephone encounter Jonathan Hawkins [facility] Comment on above: Anticoagulation Tele phone Fu (Home INR result) Start: 06-07-2024 End: 06-07-2024 Telephone encounter Jonathan Hawkins [facility] Comment on above: Anticoagulation Tele phone Fu (Home INR result) Start: 05-24-2024 End: 05-24-2024 Telephone encounter Jonathan Hawkins [facility] Comment on above: Anticoagulation Tele phone Fu (Home INR result) Start: 05-10-2024 End: 05-10-2024 Telephone encounter Elliott Gleason [facility] Comment on above: Anticoagulation Tele phone Fu (Home INR result ) Start: 04-26-2024 End: 04-26-2024 Telephone encounter Lian Coulter [facility] Comment on above: Anticoagulation Tele phone Fu (Home INR) Start: 04-12-2024 End: 04-12-2024 Telephone encounter Lian Coulter [facility] Comment on above: Anticoagulation Tele phone Fu (Home INR) Start: 03-29-2024 End: 03-29-2024 Telephone encounter Jonathan Hawkins [facility] Comment on above: Anticoagulation Tele phone Fu (Home INR result) Start: 03-16-2024 Refill George morris MD Work Phone: [facility] [place] Comment on above: Refill Request Start: 03-15-2024 Telephone encounter Jordyn Tai [facility] Comment on above: Anticoagulation Tele phone Fu Start: 03-10-2024 ambulatory BRIONNA GANT MD Fac ility:A Start: 03-09-2024 End: 03-09-2024 ambulatory GEORGE MATA Facility:[facility] Start: 03-09-2024 End: 03-09-2024 Office outpatient visit 25 minutes George Mata MD Work Phone: [facility] [place] Comment on above: Controlled type 2 di abetes mellitus with stage 3 chronic kidney disease, without long-term current use of insulin (HCC) (Primary Dx); Chronic systolic heart failure (HCC); Atherosclerosis of [place] coronary artery of [place] heart without angina pectoris; Pure hypercholesterolemia; Essential [...] Start: 12-29-2023 End: 12-29-2023 ambulatory George Mata Facility:[facility] Start: 12-22-2023 Telephone encounter [facility] Comment on above: Anticoagulation Tele phone Fu (Home INR result) Start: 12-08-2023 Telephone encounter Jonathan Ross [facility] Comment on above: Anticoagulation Tele phone Fu (Home INR result) Start: 11-24-2023 Telephone encounter Lian Coulter [facility] Comment on above: Anticoagulation Tele phone Fu (Home INR) Start: 11-18-2023 End: 11-18-2023 ambulatory [facility] Work Phone: Start: 11-18-2023 End: 11-18-2023 Patient encounter procedure [facility]-Cat Scan, [facility] Work Phone: Start: 11-13-2023 Telephone encounter Pharmacist [facility] Comment on above: Anticoagulation Start: 11-10-2023 Telephone encounter Jonathan Ross [facility] Comment on above: Anticoagulation Tele phone Fu (Home INR result) Start: 11-10-2023 End: 11-10-2023 Patient encounter procedure George Mata MD Work Phone: [facility] [place] Comment on above: Sinobronchitis (Prim juan pablo [...] INR result) Start: 06-17-2023 End: 06-17-2023 ambulatory [facility] Work Phone: Start: 06-17-2023 End: 06-17-2023 Patient encounter procedure [facility]-Cardiovascula r Services Work Phone: Start: 06-09-2023 Telephone [...] George henning MD Work Phone: [facility] [place] Comment on above: Medication Problem Start: 02-17-2023 Telephone encounter Jonathan Hawkins [facility] Comment on above: Anticoagulation Tele phone Fu (Home INR result) Start: 02-03-2023 Telephone encounter Lian Coulter [facility] Ambulatory Telemanagement Comment on above: [...] lab results from 08-12-22 faxed to Brionna Gant//[facility]/[address] [place] [address]/[address]/[place] [address]// // ) Start: 08-20-2022 Telephone encounter George henning MD Work Phone: [facility] [place] Comment on above: Results Start: 08-19-2022 Telephone encounter Jonathan Ross RPh P harmacy Ambulatory Telemanagement Comment on above: Anticoagulation Tele phone Fu (Home INR) Start: 08-05-2022 Telephone encounter Jordyn Tai [facility]ulatory Telemanagement Comment on above: Anticoagulation Tele phone Fu (Home INR /) Medication Request Start: 07-26-2022 Telephone encounter George henning MD Work Phone: [facility] [place] Comment on above: Results Start: 07-24-2022 End: 07-24-2022 Patient encounter procedure George Mata MD Work Phone: [facility] [place] Comment on above: Routine medical exam (Primary Dx); Asthma, moderate persistent, well-controlled; Pure hypercholesterolemia; Byers's esophagus with dysplasia; Interstitial lung disease (HCC); Atherosclerosis of [place] coronary artery of [place] heart without angina pectoris; Controlled type 2 diabetes mellitus with stage 3 chronic kidney disease, without long-term current use of insulin (HCC); Chronic systolic heart failure (HCC); PAD (peripheral artery disease) (HCC); Need for COVID-19 vaccine; Left knee pain, unspecified chronicity Start: 07-24-2022 End: 07-24-2022 Patient encounter status George Mata MD Work Phone: [facility] [place] Start: 07-22-2022 Telephone encounter Jonathan Hawkins [facility] Ambulatory Telemanagement Comment on above: Anticoagulation Tele phone Fu (Home INR) Start: 06-24-2022 Telephone encounter Jonathan Hawkins RPh P harmacy Ambulatory Telemanagement Comment on above: Anticoagulation Tele phone Fu (Home INR) Start: 06-19-2022 Refill George morris MD Work Phone: [facility] [place] Comment on above: Refill Request Start: 06-10-2022 Telephone encounter Jonathan Hawkins RPh P harm[facility] Ambulatory Telemanagement Comment on above: Anticoagulation Tele phone Fu (Home INR) Start: 05-27-2022 Telephone encounter Lian Coulter [facility] Ambulatory Telemanagement Comment on above: [...] 11-28-2021 End: 11-25-2022 Lab-Standing Order DIOR CONWAY APRN-COMMERCIAL MAINTENANCE TECHNICIAN [facility] Start: 11-06-2021 End: 11-06-2021 Patient encounter procedure Jb2 Echocardiogram Work Phone: Cardiology Comment on above: Chronic systolic hea rt failure (HCC) Start: 11-05-2021 Telephone encounter Jonathan Hawkins [facility] Ambulatory Telemanagement Comment on above: Anticoagulation Tele phone Fu (Home INR result) Start: 10-24-2021 End: 10-24-2021 SAME DAY STAY DEANA SIDDIQI MD [facility] Start: 10-16-2021 End: 10-16-2021 Patient encounter procedure SHAINA DELGADO MD [facility] Start: 10-16-2021 End: 10-16-2021 Patient encounter procedure DEANA SIDDIQI MD [facility] Start: 07-25-2021 End: 07-31-2021 Evaluation and management of inpatient DR BRIONNA VALENTE MD [facility] Start: 07-12-2021 End: 07-12-2021 Subsequent hospital visit by physician Karen [facility] [employer] Work Phone: Radiology Comment on above: Foot pain, left [[id number]] Start: 03-19-2021 End: 03-19-2021 Subsequent hospital visit by physician Karen [facility] Work Phone: Radiology Comment on [...] above: lead change G247 Vigilant DRT-D SN# [id number]. RA/LV leads from 2016. RV lead from [...] pressure is 8 mm Hg. Start: 07-24-2022 [facility] COVID-19 BIVALENT BOOSTER VACCINE, AGE 12+ YR George Mata MD Work Phone: Start: 11-06-2021 Echo tthrc r-t 2d w/wom-mode compl spec&colr d Charissa Chowdhury APRN.COMMERCIAL MAINTENANCE TECHNICIAN Work Phone: Start: 11-05-2021 Prothrombin time [facility] Provider Start: 10-24-2021 Cardiac catheterization DIOR CONWAY BUSINESS PROFESSOR-[facility] Comment on above: Procedures performed: Right heart [...] There is a 90% stenosis. IMPRESSIONS: Severe [place] CAD with patent ORTIZ to LAD / D1 and SVG to PDA. RECOMMENDATIONS: Treatment of VT. Procedures performed : Left coronary angiography. Right coronary angiography. Saphenous vein graft angiography. ORTIZ graft angiography. SUMMARY: 1. LAD: Proximal vessel lesion: There is a 100% chronic total occlusion. 2. Right posterior descending: Proximal vessel lesion: There is a 90% stenosis. IMPRESSIONS: Severe [place] CAD with patent ORTIZ to LAD / D1 and SVG to PDA. RECOMMENDATIONS: Treatment of VT. Start: 07-12-2021 Radex foot complete minimum 3 views Mai Lutz BUSINESS PROFESSOR.COMMERCIAL MAINTENANCE TECHNICIAN Work Phone: Start: 03-19-2021 Radiologic exam chest 2 views Paola Francois Jac jeongrger BUSINESS PROFESSOR.COMMERCIAL MAINTENANCE TECHNICIAN Work Phone: Start: 01-17-2021 Adult depression screening assessment Jonathan Hawkins [facility] Start: 04-13-2019 Tmvi w/prosthetic valve percutaneous [...] Mitral valve prosthesis, device (physical object) DR BRIONAN VALENTE MD Comment on above: resternotomy, mitral valve replacement, insertion IABP, insertion TPW Start: 08-10-2012 Implantation of automatic cardiac defibrillator DR BRIONNA VALENTE MD Comment on above: upgraded to TECHNICAL ENGINEER-d Start: 08-10-2008 Percutaneous transluminal coronary angioplasty DR BRIONNA VALENTE MD Comment on above: stent placement Start: 06-22-2007 End: 01-27-2019 History of coronary artery bypass grafting Postsurgical aortocoronary bypass status Jonathan Hawkins [facility] Start: 08-10-2006 Coronary artery bypass graft [...] Detail Author Start: 03-24-2026 Urine microalbumin profile [facility] Start: 01-10-2026 Annual PCP Team Chronic Disease Visit Annual PCP Team Chronic Disease Visit [facility] Start: 01-10-2026 BP Controlled (<130/80) BP Controlled (<130/80) [facility] Start: 01-10-2026 zzBP Controlled (<130/80) (Retired) zzBP Controlled (<130/80) (Retired) [facility] Start: 11-01-2025 Annual PCP Team Chronic Disease Visit Annual PCP Team Chronic Disease Visit [facility] Start: 11-01-2025 BP Controlled (<130/80) BP Controlled (<130/80) [facility] Start: 09-06-2025 Complete blood count Hemoglobin/Hematocrit [facility] Start: 09-06-2025 Creatinine measurement Serum Creatinine [facility] Start: 09-06-2025 Hepatitis B surface antibody level LDL Cholesterol [facility] Start: 08-09-2025 Annual PCP Team Chronic Disease Visit Annual PCP Team Chronic Disease Visit [facility] Start: 08-09-2025 BP Controlled (<130/80) BP Controlled (<130/80) [facility] Start: 08-09-2025 Diabetic foot examination Diabetic Foot Exam [facility] Start: 07-12-2025 End: 07-12-2025 Patient encounter procedure 07/12/2025 1:40 PM EST Office Visit [facility] Medicine [facility] [address] [place] [address] George Mata MD [address] [place] [address] Yearly w/ month follow-up [facility] Comment on above: Yearly w/ month follow-up Start: 04-10-2025 Influenza vaccination Influenza Vaccine (#1) [facility] Start: 03-09-2025 Annual PCP Team Chronic Disease Visit Annual PCP Team Chronic Disease Visit [facility] Start: 03-09-2025 Anxiety Screening Anxiety Screening [facility] Start: 03-09-2025 BP Controlled (<130/80) BP Controlled (<130/80) [facility] Start: 03-09-2025 Depression Screening Depression Screening [facility] Start: 03-06-2025 Hemoglobin A1c measurement HbA1C [facility] Start: 02-01-2025 End: 02-01-2025 Patient encounter procedure 02/01/2025 10:20 AM EDT Office Visit [facility] [place] [address] [place] [address] George Mata MD [address] [place] [address] 3 month follow-up [facility] Comment on above: 3 month follow-up Start: 01-28-2025 Glaucoma screening Dilated Retinal Exam [facility] Start: 01-24-2025 Complete blood count Hemoglobin/Hematocrit [facility] Start: 01-24-2025 Creatinine measurement Serum Creatinine [facility] Start: 01-24-2025 Hepatitis B screening Urine Albumin:Creatinine Ratio [facility] Start: 01-16-2025 End: 04-17-2025 Basic metabolic 2000 panel - Serum or Plasma BASIC METABOLIC PANEL Lab Routine Controlled type 2 diabetes mellitus with stage 3 chronic kidney disease, without long-term current use of insulin (HCC) Expected: 01/16/2025, Expires: 04/17/2025 [facility] Comment on above: Expected: 01/16/2025, Expires: Start: 01-16-2025 End: 04-17-2025 CBC panel - Blood by Automated count COMPLETE BLOOD COUNT Lab Routine Anemia due to stage 3b chronic kidney disease (HCC) (HCC) Expected: 01/16/2025, Expires: 04/17/2025 [facility] Work Phone: Comment on above: Expected: 01/16/2025, Expires: Start: 01-16-2025 End: 04-17-2025 Hemoglobin A1c in Blood HEMOGLOBIN A1C Lab Routine Controlled type 2 diabetes mellitus with stage 3 chronic kidney disease, without long-term current use of insulin (HCC) Expected: 01/16/2025, Expires: 04/17/2025 [facility] Comment on above: Expected: 01/16/2025, Expires: Start: 01-16-2025 End: 04-17-2025 Urate [Mass/volume] in Serum or Plasma URIC ACID Lab Routine Gout of foot, unspecified cause, unspecified chronicity, unspecified laterality Expected: 01/16/2025, Expires: 04/17/2025 [facility] Comment on above: Expected: 01/16/2025, Expires: Start: 01-10-2025 End: 01-10-2025 Patient encounter procedure 01/10/2025 11:20 AM EDT Office Visit [facility] [place] [address] [place] [address] George Mata MD [address] [place], [place] [id number] Alex Muñoz F/U D/C 01/04/2025; Atrial Fibrillation [facility] Comment on above: Alex [place] F/U D/C 01/04/2025; Atria l Fibrillation Start: 11-09-2024 Annual PCP Team Chronic Disease Visit Annual PCP Team Chronic Disease Visit [facility] Start: 11-09-2024 BP Controlled (<130/80) BP Controlled (<130/80) [facility] Start: 11-01-2024 End: 11-01-2024 Patient encounter procedure 11/01/2024 9:00 AM EDT Office Visit [facility] [address] [facility] [place] [address] George Mata MD [address] [facility] [place], [place] [id number] 3 month follow-up [facility] Comment on above: 3 month follow-up Start: 10-31-2024 Covid-19 Vaccine () Covid-19 Vaccine () [facility] Start: 08-10-2024 Advance Directive Discussion Advance Directive Discussion [facility] Start: 08-10-2024 Medicare Advantage Annual Wellness Visit Medicare [facility] Annual Wellness Visit [facility] Start: 08-09-2024 End: 08-09-2024 Patient encounter procedure 08/09/2024 10:00 AM EST Office Visit [facility] [place] [address] [facility] [place] [address] George Mata MD [address] [facility] [place] [address] Yearly w/5 month follow-up [facility] Comment on above: Yearly w/5 month follow-up Start: 07-29-2024 Annual PCP Team Chronic Disease Visit Annual PCP Team Chronic Disease Visit [facility] Start: 07-29-2024 BP Controlled (<130/80) BP Controlled (<130/80) [facility] Start: 07-29-2024 Creatinine measurement Serum Creatinine [facility] Start: 07-29-2024 Diabetic foot examination Diabetic Foot Exam [facility] Start: 07-29-2024 Hepatitis B surface antibody level LDL Cholesterol [facility] Start: 07-27-2024 End: 07-27-2024 Patient encounter procedure 07/27/2024 10:20 AM EST Office Visit [facility] [address] [place] [address] George Mata MD [address] [place] [address] Yearly w/5 month follow-up [facility] Comment on above: Yearly w/5 month follow-up Start: 07-26-2024 Hemoglobin A1c measurement HbA1C [facility] Start: 07-11-2024 End: 10-10-2024 CBC panel - Blood by Automated count COMPLETE BLOOD COUNT Lab Routine Controlled type 2 diabetes mellitus with stage 3 chronic kidney disease, without long-term current use of insulin (HCC) Expected: 07/11/2024, Expires: 10/10/2024 [facility] Work Phone: Comment on above: Expected: 07/11/2024, Expires: Start: 07-11-2024 End: 10-10-2024 Comprehensive metabolic 2000 panel - Serum or Plasma COMPREHENSIVE METABOLIC PANEL Lab Routine Chronic systolic heart failure (HCC) Expected: 07/11/2024, Expires: 10/10/2024 [facility] Comment on above: Expected: 07/11/2024, Expires: Start: 07-11-2024 End: 10-10-2024 Hemoglobin A1c in Blood HEMOGLOBIN A1C Lab Routine Controlled type 2 diabetes mellitus with stage 3 chronic kidney disease, without long-term current use of insulin (HCC) Expected: 07/11/2024, Expires: 10/10/2024 [facility] Comment on above: Expected: 07/11/2024, Expires: Start: 07-11-2024 End: 10-10-2024 Lipid 1996 panel - Serum or Plasma LIPID PANEL BASIC Lab Routine Pure hypercholesterolemia Expected: 07/11/2024, Expires: 10/10/2024 [facility] Comment on above: Expected: 07/11/2024, Expires: Start: 04-10-2024 Covid-19 Vaccine (7 - 2023-24 season) Covid-19 Vaccine () [facility] Start: 04-10-2024 Covid-19 Vaccine () Covid-19 Vaccine () [facility] Start: 04-10-2024 Influenza vaccination Influenza Vaccine (#1) [facility] Start: 03-09-2024 End: 03-09-2024 Patient encounter procedure 03/09/2024 2:40 PM EDT Office Visit [facility] [place] [address] [facility] [place] [address] George Mata MD [address] [facility] [place], [place] [id number] 6MTH FOLLOW UP [facility] [place] Comment on above: 6MTH FOLLOW UP Start: 02-24-2024 End: 02-24-2024 Patient encounter procedure 02/24/2024 11:20 AM EDT Office Visit [facility] [place] [address] [facility] [place] [address] Paola Blue, BUSINESS PROFESSOR.COMMERCIAL MAINTENANCE TECHNICIAN [address] [facility] [place] [address] Follow up for refills [facility] Comment on above: Follow up for refills Start: 02-01-2024 End: 02-01-2024 Patient encounter procedure 02/01/2024 1:20 PM EDT Office Visit [facility] [place] [address] [facility] [place] [address] George Mata MD [address] [facility] [place] [address] 6 month follow-up [facility] Comment on above: 6 month follow-up Start: 01-28-2024 Hemoglobin A1c measurement HbA1C [facility] Start: 01-28-2024 End: 01-28-2024 Patient encounter procedure 01/28/2024 1:40 PM EDT Office Visit [facility] [place] [address] [place] [address] George Mata MD [address] [facility] [place] [address] 6 month follow-up [facility] Comment on above: 6 month follow-up Start: 01-24-2024 ANNUAL PCP TEAM CHRONIC DISEASE VISIT ANNUAL PCP TEAM CHRONIC DISEASE VISIT [facility] Start: 01-24-2024 BP CONTROLLED (<130/80) BP CONTROLLED (<130/80) [facility] Start: 01-24-2024 Complete blood count Hemoglobin/Hematocrit [facility] Start: 01-24-2024 HEMOGLOBIN/HEMATOCRIT HEMOGLOBIN/HEMATOCRIT [facility] Start: 01-24-2024 Hepatitis B screening URINE ALBUMIN:CREATININE RATIO [facility] Start: 01-24-2024 SERUM CREATININE SERUM CREATININE [facility] Start: 12-27-2023 Glaucoma screening Dilated Retinal Exam [facility] Start: 12-27-2023 Hepatitis C antibody, confirmatory test DILATED RETINAL EXAM [facility] Start: 11-28-2023 Covid-19 Vaccine () Covid-19 Vaccine () [facility] Start: 08-10-2023 Advance Directive Discussion Advance Directive Discussion [facility] Start: 08-10-2023 Behavioral Health Screening Behavioral Health Screening [facility] Start: 08-10-2023 Depression Assessment Depression Assessment [facility] Start: 07-25-2023 End: 09-24-2023 Comprehensive metabolic 2000 panel - Serum or Plasma COMP METABOLIC PANEL Lab Routine Controlled type 2 diabetes mellitus with stage 3 chronic kidney disease, without long-term current use of insulin (HCC) Expected: 07/25/2023, Expires: 09/24/2023 [facility] Work Phone: Comment on above: Expected: 07/25/2023, Expires: 4 Start: 07-25-2023 End: 09-24-2023 Hemoglobin A1c in Blood HGB A1C Lab Routine Controlled type 2 diabetes mellitus with stage 3 chronic kidney disease, without long-term current use of insulin (HCC) Expected: 07/25/2023, Expires: 09/24/2023 [facility] Work Phone: Comment on above: Expected: 07/25/2023, Expires: 4 Start: 07-25-2023 Hemoglobin A1c/Hemoglobin.total in Blood HBA1C [facility] Start: 07-25-2023 End: 09-24-2023 Lipid 1996 panel - Serum or Plasma LIPID PANEL BASIC Lab Routine Controlled type 2 diabetes mellitus with stage 3 chronic kidney disease, without long-term current use of insulin (HCC) Expected: 07/25/2023, Expires: 09/24/2023 [facility] Work Phone: Comment on above: Expected: 07/25/2023, Expires: 4 Start: 07-24-2023 3 comp foot exam completed DIABETIC FOOT EXAM [facility] Start: 07-24-2023 ANNUAL PCP TEAM CHRONIC DISEASE VISIT ANNUAL PCP TEAM CHRONIC DISEASE VISIT [facility] Start: 07-24-2023 BP CONTROLLED (<130/80) BP CONTROLLED (<130/80) [facility] Start: 07-24-2023 Hepatitis B screening URINE ALBUMIN:CREATININE RATIO [facility] Start: 07-24-2023 Hepatitis B surface antibody level LDL CHOLESTEROL [facility] Start: 07-24-2023 SERUM CREATININE SERUM CREATININE [facility] Start: 04-10-2023 Covid-19 Vaccine (2022- season) Covid-19 Vaccine () [facility] Start: 04-10-2023 Influenza vaccination [facility] Start: 01-23-2023 End: 03-25-2023 ALBUMIN/CREAT RATIO RND UR [facility] Work Phone: Comment on above: Expected: 01/23/2023, Expires: 3 Start: 01-23-2023 End: 03-25-2023 Basic metabolic 2000 panel - Serum or Plasma [facility] Work Phone: Comment on above: Expected: 01/23/2023, Expires: 3 Start: 01-23-2023 End: 03-25-2023 CBC panel - Blood by Automated count [facility] Work Phone: Comment on above: Expected: 01/23/2023, Expires: 3 Start: 01-23-2023 End: 03-25-2023 Hemoglobin A1c in Blood [facility] Work Phone: Comment on above: Expected: 01/23/2023, Expires: 3 Start: 01-23-2023 End: 03-25-2023 Urate [Mass/volume] in Serum or Plasma [facility] Work Phone: Comment on above: Expected: 01/23/2023, Expires: 3 Start: 01-22-2023 ANNUAL PCP TEAM CHRONIC DISEASE VISIT ANNUAL PCP TEAM CHRONIC DISEASE VISIT [facility] Start: 01-22-2023 BP CONTROLLED (<130/80) BP CONTROLLED (<130/80) [facility] Start: 01-22-2023 Hemoglobin A1c/Hemoglobin.total in Blood HBA1C [facility] Start: 01-22-2023 HEMOGLOBIN/HEMATOCRIT HEMOGLOBIN/HEMATOCRIT [facility] Start: 01-22-2023 Hepatitis B surface antibody level LDL CHOLESTEROL [facility] Start: 01-22-2023 SERUM CREATININE SERUM CREATININE [facility] Start: 11-22-2022 COVID-19 VACCINE (6 - Pfizer series) COVID-19 VACCINE (6 - Pfizer series) [facility] Start: 11-06-2022 BP CONTROLLED (<130/80) BP CONTROLLED (<130/80) [facility] Start: 09-23-2022 SERUM CREATININE SERUM CREATININE [facility] Start: 08-15-2022 ANNUAL PCP TEAM CHRONIC DISEASE VISIT ANNUAL PCP TEAM CHRONIC DISEASE VISIT [facility] Start: 08-15-2022 BP CONTROLLED (<130/80) BP CONTROLLED (<130/80) [facility] Start: 08-10-2022 ADVANCE DIRECTIVE DISCUSSION ADVANCE DIRECTIVE DISCUSSION [facility] Start: 08-10-2022 DEPRESSION ASSESSMENT DEPRESSION ASSESSMENT [facility] Start: 07-24-2022 Hemoglobin A1c/Hemoglobin.total in Blood HBA1C [facility] Start: 07-19-2022 3 comp foot exam completed DIABETIC FOOT EXAM [facility] Start: 07-19-2022 Hepatitis B screening URINE ALBUMIN:CREATININE RATIO [facility] Start: 07-12-2022 Hepatitis B surface antibody level LDL CHOLESTEROL [facility] Start: 04-10-2022 Influenza vaccination INFLUENZA (#1) [facility] Start: 03-19-2022 COVID-19 VACCINE (5 - Booster for Pfizer series) COVID-19 VACCINE (5 - Booster for Pfizer series) [facility] Start: 01-17-2022 Adult depression screening assessment DEPRESSION SCREENING [facility] Start: 01-10-2022 Hemoglobin A1c/Hemoglobin.total in Blood HBA1C [facility] Start: 2021 COVID-19 VACCINE (4 - Booster for Pfizer series) COVID-19 VACCINE (4 - Booster for Pfizer series) [facility] Start: 08-10-2021 ADVANCE DIRECTIVE DISCUSSION ADVANCE DIRECTIVE DISCUSSION [facility] Start: 08-10-2021 DEPRESSION ASSESSMENT DEPRESSION ASSESSMENT [facility] Start: 06-24-2020 Hepatitis C antibody, confirmatory test DILATED RETINAL EXAM [facility] Start: 04-03-2017 End: 04-03-2017 Appointment Appointment [facility] Work Phone: Start: 03-25-2017 End: 03-25-2017 Appointment Appointment [facility] Work Phone: Start: 03-25-2017 End: 03-25-2017 Diagnostic colonoscopy [facility] Work Phone: Start: 03-25-2017 End: 03-25-2017 Uppr gi endoscopy, diagnosis EGD; diagnostic [facility] Work Phone: Start: 07-19-2012 SHINGRIX VACCINE (2 of 3) SHINGRIX VACCINE (2 of 3) [facility] Start: 2004 Hepatitis B Vaccine (1 of 3 - Risk 3-dose series) Hepatitis B Vaccine (1 of 3 - Risk 3-dose series) [facility] Start: 2004 RSV Vaccine (1 - 1-dose 60+ series) RSV Vaccine (1 - 1-dose 60+ series) [facility] Start: 1962 Anxiety Screening Anxiety Screening [facility] Start: 1962 Depression Screening Depression Screening [facility] End: 07-24-2023 PVR ANK PRESS [facility] PVR ANK PRESS [facility] Vascular Lab Routine PAD (peripheral artery disease) (HCC) 1 Occurrences starting 07/24/2022 until 07/24/2023 [facility] Work Phone: Comment on above: 1 Occurrences starting 07/24/2022 until 07/24/2023 XR Chest PA and Lateral XR CHEST 2V FRONTAL/LAT Radiology Routine Acute cough 08/09/2024 11:45 AM EST [facility] Work Phone: End: 09-08-2025 XR Chest PA and Lateral XR CHEST 2V FRONTAL/LAT Radiology Routine Acute cough 1 Occurrences starting 08/09/2024 until 09/08/2025 [facility] Work Phone: Comment on above: 1 Occurrences starting 08/09/2024 until 09/08/2025 [facility] Immunizations Immunization Date Immunization Notes Care Provider Fa carl 05-03-2024 influenza virus vacc ine, unspecified formulation Jonathan Hawkins [facility] 07-29-2023 COVID-19 vaccine, ag e 12+ yr, season ([employer]) Jonathan Hawkins [facility] 05-13-2023 influenza (HD-IIV4) vaccine, age 65+ yr, high dose, quadrivalent, PF (FLUZONE HIGH-DOSE) Jonathan Hawkins [facility] Work Phone: 05-13-2023 respiratory syncytia l virus (RSV) vaccine, bivalent (ABRYSVO) Jonathan Hawkins [facility] Work Phone: 05-13-2023 influenza virus vacc ine, unspecified formulation Ruma Daltonyobany [facility] 07-24-2022 COVID-19 booster vaccine, age 12+ yr, bivalent (PFIZER-BIONTECH) George Mata MD Work Phone: [facility] Work Phone: 04-09-2022 influenza, high-dose , quadrivalent vaccine (FLUZONE HIGH DOSE QUADRIVALENT) George Mata MD Work Phone: [facility] Work Phone: 04-09-2022 influenza virus vacc ine, unspecified formulation George Mata MD Work Phone: [facility] 01-22-2022 COVID-19 vaccine, ag e 12+ yr ([employer] - FRANCIS TOP) Jonathan Hawkins [facility] Work Phone: 07-19-2021 pneumococcal polysaccharide vaccine, [address] BRIONNA VALENTE MD [facility] 06-05-2021 influenza (aIIV4) vaccine, age 65+ yr, quadrivalent, PF (FLUAD QUADRIVALENT) Jonathan Humphriesantony [facility] Work Phone: 06-05-2021 influenza virus vacc ine, unspecified formulation DR BRIONNA VALENTE MD [facility] 11-01-2020 SARS-CoV-2 mRNA (tozinameran) vaccine DR BRIONNA VALENTE MD [facility] 10-11-2020 SARS-CoV-2 mRNA (tozinameran) vaccine DR BRIONNA VALENTE MD [facility] Comment on above: Result Comment: 2020: [id number] 04-20-2020 influenza, high dose seasonal, [facility]ative-[facility] 05-10-2019 influenza, high dose seasonal, preservative-free [facility]: 04-07-2018 influenza, seasonal, injectable [facility]: 05-10-2017 influenza, injectabl e, quadrivalent, preservative free [facility] 04-22-2017 influenza, seasonal, injectable [facility]: 04-18-2016 influenza, injectabl e, quadrivalent, contains preservative Jonathan [facility] 03-24-2016 tetanus toxoid, redu delano diphtheria toxoid, and acellular pertussis vaccine, adsorbed DR BRIONNA VALENTE MD [facility] 03-12-2016 pneumococcal polysaccharide vaccine, 23 valent Jonathan Begany [facility] 05-23-2015 influenza, high dose seasonal, preservative-free Jonathan Begany [facility] Work Phone: 02-21-2015 pneumococcal conjuga te vaccine, 13 valent Jonathan Begany [facility] 12-08-2014 pneumococcal polysaccharide vaccine, 23 valent [facility] 05-15-2014 influenza, seasonal, injectable Jonathan Begany [facility] 06-10-2013 pneumococcal polysaccharide vaccine, [address] BRIONNA VALENTE MD [facility] 05-10-2013 influenza virus vacc ine, unspecified formulation Jonathan Begany [facility] 05-24-2012 influenza virus vacc ine, unspecified formulation Jonathan Begany [facility] Work Phone: 05-24-2012 zoster vaccine, live Jonathan Begany [facility] Work Phone: 06-02-2011 influenza virus vacc ine, unspecified formulation Jonathan Begany [facility] Work Phone: 05-09-2009 influenza virus vacc ine, unspecified formulation Jonathan Begany [facility] Work Phone: 04-11-2008 pneumococcal polysaccharide vaccine, 23 valent Jonathan Begany [facility] Work Phone: 07-28-2007 tetanus and diphther ia toxoids, adsorbed, preservative free, for adult use (2 Lf of tetanus toxoid and 2 Lf of diphtheria toxoid) Jonathan Begany [facility] 06-22-2007 influenza virus vacc ine, unspecified formulation Jonathan Begany [facility] 06-25-2006 influenza virus vacc ine, unspecified formulation Jonathan Begany [facility] Payers Date Payer Category Payer Medicare [id number] 2024 Medicare [id number] 2023 Self-pay [id number] 2022 Private Health Insurance [id number] 2020 Medicare (Managed Care) PRIMETIM E [id number] 2020 Unknown PRIMETIME PRIMET DEIDRA HMO POS [id number] 2020-Present [phone] [place] [id number] O [id number] 2016 Unknown [id number] 2016 Unknown [id number] 1944 Unknown [id number] 2..[id number]. 2. 1944 Unknown [id number] 2.16.840.1.107822.3.579. 2. 1944 Unknown [id number] 2.16.840.1.945623.3.579. 2. 1944 Unknown [id number] 2.16.840.1.305579.3.579. 2. 1944 Unknown [id number] [id number]. 2.627 1944 Unknown [id number] [id number]. 2.627 1944 Unknown [id number] [id number]. 2.627 Unknown [id number] [id number]. 2.462 Unknown [id number] [id number]. 2.462 Unknown [id number] [id number]. 2.462 Unknown [id number] [id number]. 2.462 Social History Date Type Detail Facility Start: 07-25-2021 End: 07-24-2022 Ex-smoker (finding) [facility] Start: 1945 Sex Assigned At Male A [facility] End: 08-10-1969 History of tobacco use Current smoker [facility] Work Phone: End: 08-10-1969 History of tobacco use Pipe Smoker [facility] Work Phone: Start: 09-02-2011 End: 07-24-2022 Tobacco use and exposure User of smokeless tobacco [facility] Work Phone: History of tobacco use Snuff User [facility] Work Phone: Start: 08-15-2021 End: 11-01-2024 Alcohol intake Current non-drinker of alcohol (finding) [facility] Start: 01-17-2021 History SDOH Stress 1 [facility] Start: 06-22-2007 End: 07-24-2022 Tobacco Comment Chews tobacco 2 boxes per week since . [facility] Start: 1945 Sex Assigned At Not on file [facility] Start: 02-17-2021 End: 01-22-2022 Exposure to SARS-CoV-2 (event) Not sure [facility] Start: 01-17-2021 End: 01-23-2023 History of Social function [facility] Work Phone: Start: 01-17-2021 End: 01-23-2023 Tobacco use panel [facility] Work Phone: Adult Depression Screening Assessment 0 [facility] Work Phone: Do you feel stress - tense, restless, nervous, or anxious, or unable to sleep at night because your mind is troubled all the time - these days [OSQ] Not at all [facility] Work Phone: Start: 05-02-2021 End: 05-02-2021 Tobacco smoking status NHIS Unknown if ever smoked [facility] Start: 12-13-2017 None [facility] Start: 12-13-2017 Spouse/ Signif icant Other [facility] Start: 12-13-2017 Cigarettes [facility] Start: 07-04-2019 End: 10-26-2024 Sex Male (finding) [facility] Tobacco Nicotine Use: 47 years ago. [facility] Comment on above: 47 years ago Sexual Orientation [facility] Medical Equipment Procedure Code Equipment Code Equipment Origin al Text Equipment Identifier Dates Test blood sugar(s) one times daily. Dx: Type 2 DM - Controlled E11.9 Insulin: No [id number] Start: 09-09-2017 Comment on above: Test blood sugar(s) one times daily. Dx: Type 2 DM - Controlled E11.9 Insulin: No Functional Status Date Assessment Result Facility 08-24-2018 Are you deaf, or do you have serious difficulty hearing No 08/24/2018 10:25 AM George Parra MD No [facility] 08-24-2018 Are you blind, or do you have serious difficulty seeing, even when wearing glasses No 08/24/2018 10:25 AM George Parra MD No [facility] 08-24-2018 Do you have serious difficulty walking or climbing stairs No 08/24/2018 10:25 AM George Parra MD No [facility] 08-24-2018 Do you have difficul ty dressing or bathing No 08/24/2018 10:25 AM George Parra MD No [facility] 08-24-2018 Because of a physica l, mental, or emotional condition, do you have difficulty doing errands alone such as visiting a physician's office or shopping No 08/24/2018 10:25 AM George Parra MD No [facility] Mental Status Date Assessment Result Facility 08-24-2018 Because of a physica l, mental, or emotional condition, do you have serious difficulty concentrating, remembering, or making decisions No 08/24/2018 10:25 AM George Parra MD No [facility] Clinical Notes 01-29-2019 to 02-28-2025 Telephone Encounter - Jonathan Hawkins [facility] - 02/28/2025 8:12 AM EDTTelephone Encounter - Jonathan Hawkins [facility] - 02/28/2025 8:12 AM EDT Note Date & Type Note Facility 02-28-2025 Telephone encounter Note [facility] Ambulatory Pharmacy Anticoagulation Clinic Anticoagulation Episode Summary Anticoagulation Care Providers Provider Role Specialty Phone number George Mata MD [facility] Internal Medicine [phone] Bessy Valverde is a 79 year old [...] Pharmacy Anticoagulation Clinic Pharmacy Anticoagulation Clinic Pager: [phone]. [facility] 02-28-2025 Miscellaneous Notes [facility] Ambulatory Pharmacy Anticoagulation Clinic Anticoagulation Episode Summary Anticoagulation Care Providers Provider Role Specialty Phone number George Mata MD [facility] Internal Medicine [phone] Bessy Valverde is a 79 year old [...] Pharmacy Anticoagulation Clinic Pharmacy Anticoagulation Clinic Pager: [phone]. documented in this encounter [facility] 02-24-2025 Hospital Discharg e instructions Patient Education [...] what activities are safe for you. Take rbic-zmb-rnrjgty and prescription medicines only as told by [...] 11/02/2001 Document Revised: 07/30/2018 Document Reviewed: 03/12/2018 [employer] Patient Education 2020 [employer]. 02/24/2025 13:53:01 3- Pacemaker/ICD generator replacement (05/2018) [...] 07/27/2006 Document Revised: 07/13/2013 Document Reviewed: 07/28/2014 [facility] Patient Information 2015 [employer]. This information is not intended to replace advice given to you by your health care provider. Make sure you discuss any questions you have with your health care provider. Follow Up Care 01/16/2025 08:38:31 With:VERONIQEU TOUSSAINT MD Address: [address] [place] [address]- [phone] When:03/09/2025 13:00:00 Comments:This is your incision check in the [facility]. With:VERONIQUE TOUSSAINT MD Address: [address] [place] [address]- [phone] When:06/01/2025 13:30:00 Comments:This is your hospital follow up in the [facility]. [facility] 02-24-2025 Summary of episod e note Discharge Instructions Thank you for allowing [place] to assist you with your healthcare needs. The following is important discharge information regarding your hospital visit. Your Care Team GEORGE MATA MD What to do next Scheduled Follow-Up Appointments Appointment Type When With Where Contact Information StatusCV Incision Check 03/09/2025 01:00 PM EDT [facility] Confirmed CV Office Procedure ICD 06/01/2025 01:30 PM EDT [facility] Confirmed CV OV 06/06/2025 02:00 PM EDT JAVIER GANT [facility] Confirmed CV Remote Procedure HM 09/04/2025 05:15 PM EST [facility] Confirmed Follow Up Appointments Follow Up with VERONIQUE TOUSSAINT MD When:03/09/2025 01:00 PM EDT Where:[address] [facility] [place] [address]- [phone] Additional Information: This is your incision check in the Device Clinic. Follow Up with VERONIQUE TOUSSAINT MD When:06/01/2025 01:30 PM EDT Where:[address] [facility] [place] [address]- [phone] Additional Information: This is your hospital follow [...] 12 hours Duration: 10 Days Pickup at [facility] Unchanged acetaminophen (Tylenol 325 mg [...] mouth Every Thursday and Thursday Pharmacy Information [facility]: [id number] [place] [address] [phone] Please take this list to your next [...] what activities are safe for you. Take cfeo-uwo-yrmisif and prescription medicines only as told by [...] 11/02/2001 Document Revised: 07/30/2018 Document Reviewed: 03/12/2018 [employer] Patient Education 2020 [employer]. PACEMAKER/ICD GENERATOR REPLACEMENT Discharge Instructions WOUND CARE [...] Document Reviewed: 07/28/2014 ExitCare Patient Information 2015 [facility], [facility]. This information is not intended to replace advice given to you by your health care provider. Make sure you discuss any questions you have with your health care provider. Additional Information VACCINATE! IT SAVES LIVES! Members of the community who have not yet received the COVID-19 vaccine and would like to receive it can visit one of [facility] vaccine clinics. There are many vaccine clinic locations within the [facility]. For locations and available times, please visit [email or web address] It is important to note that some COVID mobile vaccine clinics are held outdoors and may be canceled in rainy or stormy conditions. To learn more about pediatric vaccinations (ages 5-11), we invite you to visit the [facility] webpage. [email or web address] To learn more about the COVID-19 vaccine, we invite you to visit the CDC website for a list of frequently asked questions.https://www.cdc.gov/co ronavirus/2019-ncov/vaccines/faq .html [facility] Patient Portal Access Instructions: Stay connected with your healthcare team and access your personal medical information anytime with the [facility] Patient Portal. Please follow the directions below to create your [employer] account: 1.Access the email account you provided upon registration to the hospital/physician office.2.Look for an invitation email from [facility].3.Open the email and access the invitation link: Accept Invitation to [employer].4.Fill in the required mitchell to create your account. To access your account, visit [employer]. Click the blue button labeled Access Patient [...] you will allow to register on the [facility] for access to your information. You can also access the [facility] Patient Portal on the [place] [facility] charanjit. Simply click on Patient Portal and then log into your account. If you would like to receive a full copy of your medical records, please contact the [facility] Medical Records Department by calling [phone], Thursday through Thursday between 8 a.m. and [...] Call your local pharmacy or go to [email or web address] to find one close to you.3.Make use of household items: Use cat litter or old coffee grounds to dispose medications if other options are not available. Mix your drugs with these household products, seal them in an airtight container and throw it into the garbage. Call [facility]: [phone] to be sure your drugs can be [...] aware that I should contact my doctor. Patient/Shingler Signature: Date/Time: Relationship to Patient: Witness Name/Signature: Date/Time: [facility] 02-24-2025 Discharge summary Date of Service 02/24/2025 Discharge Diagnosis ICD generator end-of-life. Hospital Course . 79-year-old male with past medical history for atrial fibrillation. He underwent successful TECHNICAL ENGINEER-D ICD generator replacement tolerating the procedure well. [...] MD When:03/09/2025 01:00 PM EDT Where:[address] [facility] [address] [place] [address]- [phone] Additional Information: This is your incision check in the Device Clinic. Follow Up with VERONIQUE TOUSSAINT MD When:06/01/2025 01:30 PM EDT Where:[address] [facility] [address] [place] [address]- [phone] Additional Information: This is your hospital follow up in the Device Clinic. Follow Up Appointments No qualifying data available. Follow Up Labs/Studies Discharge Labs No Follow-up Labs Discharge Studies No Follow-up Studies Discharge Diet No qualifying data available. Discharge Activity No qualifying data available. Condition on Discharge Good Discharge Disposition Home Digitally Signed by VERONIQUE TOUSSAINT MD on 02/24/2025 01:46 PM [facility] 02-24-2025 Note Exam Date Time Procedure Performing Provider Status 02/24/25 1:38 PM XR Chest 1 View [facility] (Verified) [id number] ORIGINAL EXAMINATION: ONE XRAY VIEW OF THE [...] Sign Date: 02/24/2025 2:11:11 PM Ordering Provider: [facility]07-18-2025 Anesthesiology Consult note Patient: BESSY VALVERDE Age: [...] RASHEEDA BEE DO on 02/24/2025 12:41 PM [id number] Note* Exam Date Time Procedure Performing Provider Status 02/24/25 10:35 AM ICD Generator Change VERONIQUE TOUSSAINT MD; Auth (Verified) [id number] Anesthesiology Consult note Patient: BESSY VALVERDE Age: [...] Medical SEVERE AORTIC STENOSIS / SNOMED CT 966268018 / Confirmed Aortic stenosis / SNOMED CT 937693060 / Confirmed Asthma / SNOMED CT 352939719 / Confirmed AF (atrial fibrillation) / SNOMED CT 50259957 / Confirmed ICD (implantable cardioverter-defibrillator) in place / SNOMED CT 8536334207 / Confirmed CAD - Coronary artery disease / SNOMED CT 7652870679 / Confirmed BIVENTRICULAR ICD (IMPLANTABLE CARDIOVERTER-DEFIBRILLATOR) IN PLACE / SNOMED CT 3079743593 / Confirmed Cardiomyopathy / SNOMED CT 122164892 / Confirmed ASTHMA / SNOMED CT 527438870 / Confirmed Atrial fibrillation / SNOMED CT 2083495842 / Confirmed CKD (chronic kidney disease) / SNOMED CT 5624607208 / Confirmed CHRONIC SYSTOLIC CHF (CONGESTIVE HEART FAILURE) / SNOMED CT 0377107390 / Confirmed 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 ARTERY / SNOMED CT 1012241451 / Confirmed Wears dentures / SNOMED CT 214660969 / Confirmed Diabetes mellitus type 2 / SNOMED CT 519787941 / Confirmed Diarrhea / SNOMED CT 452159643 / Confirmed Dyspnea on exertion / SNOMED CT 703619170 / Confirmed PULMONARY FIBROSIS / SNOMED CT 05628454 / Confirmed Acid reflux / SNOMED CT 507236096 / Confirmed Glasses / SNOMED CT 1340727359 / Confirmed Gout / SNOMED CT 560179861 / Confirmed H/O valvular heart disease / SNOMED CT 810829837 / Confirmed Hard of hearing / SNOMED CT 851859494 / Confirmed Headache / SNOMED CT 22083930 / Confirmed Hearing aid / SNOMED CT 19187489 / Confirmed VALVULAR HEART DISEASE / SNOMED CT 0064686 / Confirmed High blood pressure / SNOMED CT 12877912 / Confirmed History of coronary artery bypass graft / SNOMED CT 2340602369 / Confirmed History of mitral valve replacement / SNOMED CT 6444874476 / Confirmed STATUS POST DEVICE CLOSURE OF ASD / SNOMED CT 8223439684 / Confirmed Hypercholesterolemia / SNOMED CT 04178909 / Confirmed Hypertension / SNOMED CT 4598198692 / Confirmed HOCM (HYPERTROPHIC OBSTRUCTIVE CARDIOMYOPATHY) / SNOMED CT 68560247 / Confirmed Hypokalemia / SNOMED CT 53357933 / Confirmed Hyponatremia / SNOMED CT 892410568 / Confirmed Acute kidney injury / SNOMED CT 20698058 / Confirmed Irritable bowel syndrome / SNOMED CT 24605714 / Confirmed Mitral regurgitation / SNOMED CT 88472716 / Confirmed INCREASED BMI (Renamed from OVERWEIGHT) / SNOMED CT 540795654 / Confirmed VT (Renamed from PAROXYSMAL VENTRICULAR TACHYCARDIA) / SNOMED CT 645572975 / Confirmed Preop cardiovascular exam / SNOMED CT 022080755 / Confirmed Peripheral artery disease / SNOMED CT 8908722646 / Confirmed PERMANENT ATRIAL FIBRILLATION / SNOMED CT 9021460371 / Confirmed Short of breath on exertion / SNOMED CT 6950955618 / Confirmed CURRENT TOBACCO USE / SNOMED CT 237756183 / Confirmed VT (ventricular tachycardia) / SNOMED CT 00838234 / Confirmed Resolved: Heart attack / SNOMED CT 40009738 Resolved: Hx of ventricular tachycardia / SNOMED CT 3217349631 Resolved: Hypotension / SNOMED CT 913083570 Resolved: Panic attack / SNOMED CT 349843630 Canceled: 04/29 CABG x 4 using bilateral CHRISTOPHER's and Left SVG by Dr. Magdaleno Canceled: Severe aortic stenosis c/ TAVR / SNOMED CT 213905621 Canceled: Automatic cardiac defibrillator / SNOMED CT 985944426 Canceled: CABG - Coronary artery bypass graft / SNOMED CT 199983360 Canceled: Cardiac catheterization / SNOMED CT 99253462 Canceled: Cardiac catheterization / SNOMED CT 20542249 Canceled: Cardiac catheterization / SNOMED CT 00630826 Canceled: Presence of cardiac resynchronization therapy defibrillator (TECHNICAL ENGINEER-D) / SNOMED CT 3945371270 Canceled: Artificial pacemaker / SNOMED CT 9867270665 Canceled: CHF (congestive heart failure) / SNOMED CT 22937432 Canceled: 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 ARTERY / SNOMED CT 4672096826 Canceled: Pulmonary fibrosis / SNOMED CT 77735004 Canceled: History of asthma / SNOMED CT 835159216 Canceled: History of atrial fibrillation / SNOMED CT 616827886 Canceled: H/O cardiomyopathy / SNOMED CT 408414000 Canceled: Heart failure / SNOMED CT 125202822 Canceled: Hx: CAD, previous stents, HTN Canceled: MVR - Mitral valve repair / SNOMED CT 2445960240 Canceled: Hydrops / SNOMED CT 360759572 Canceled: Current tobacco use / SNOMED CT 300297067, Active Problems (67) Acid reflux Acute kidney injury AF (atrial fibrillation) AICD (automatic cardioverter/defibrillator) present Anticoagulated on Coumadin Anxiety Aortic stenosis Arthritis Asthma ASTHMA At risk for falls Atrial fibrillation Benign colon polyp Bilateral lower extremity edema BIVENTRICULAR ICD (IMPLANTABLE CARDIOVERTER-DEFIBRILLATOR) IN PLACE CAD - Coronary artery disease 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 ARTERY Cancer of skin of face Cardiomyopathy [...] Past Medical History: Active High blood pressure (84727836) Hypercholesterolemia (76067198) Asthma (874211957) Short of breath on exertion (4937483280) CAD - Coronary artery disease (8664950781) Mitral regurgitation (19707393) H/O valvular heart disease (004709969) VT (ventricular tachycardia) (34106757) Cardiomyopathy (357497900) Acid reflux (866137676) Diarrhea (979119188) Comments: 03/09/2019 EDT 13:28 Kurtis Phan occasional Irritable bowel syndrome (96837915) Headache (81294770) Glasses (2235071944) Hard of hearing (002515608) Hearing aid (86380739) Comments: 04/09/2018 EDT 9:45 Kurtis Phan bilat Wears dentures (354696595) Comments: 04/09/2018 EDT 9:45 Kurtis Phan full Diabetes mellitus type 2 (282560112) Comments: 04/09/2018 EDT 9:46 Kurtis Phan diet controlled History of coronary artery bypass graft (6376014737) Peripheral artery disease (9612530605) History of mitral valve replacement (4090212568) Resolved Heart attack (11196208): Onset in 1995 at 50 years. Resolved. Comments: 06/10/2013 EDT 10:09 ILAN CAM MD currently active without ischemic sx or limitations. Presents for placement of AICD, Hx of ventricular tachycardia (6503916599): Resolved. Hypotension (410703021): Resolved. Panic attack (203001358): Resolved. Family History: Diabetes mellitus Mother Heart disease Brother Sister Cancer Mother HTN - Hypertension Mother Father Sister Procedure history: Echocardiogram (4096726994) on 11/18/2024 at 78 Years. Comments: 12/01/2024 [...] atrial pressure is 3 mm Hg. Echocardiogram (8053857254) on 12/16/2022 at 76 Years. Comments: 12/23/2022 [...] atrial pressure is8 mm Hg. Cardiac catheterization (24771124) on 10/24/2021 at 75 Years. Comments: 12/25/2021 [...] pressures. Will increase diuretic dose. Cardiac catheterization (89277220) on 07/29/2021 at 75 Years. Comments: 09/09/2021 17:06 Mattie Don MA (ABR-OE) Procedures performed: Left coronary angiography. Right coronary angiography. Saphenous vein graft angiography. ORTIZ graft angiography. SUMMARY: 1. LAD: Proximal vessel lesion: There is a 100% chronic total occlusion. 2. Right posterior descending: Proximal vessel lesion: There is a 90% stenosis. IMPRESSIONS: Severe [place] CAD with patent ORTIZ to LAD / D1 and SVG to PDA. RECOMMENDATIONS: Treatment of VT. Transcatheter mitral valve implantation/replacement (TMVI) with prosthetic valve; percutaneous approach, including transseptal puncture, when performed (0483T) on 04/13/2019 at 73 Years. Comments: 04/13/2019 21:08 QUE Marie Attempted - Septal occluder placed PTCA - Percutaneous transluminal coronary angioplasty (1796710881) on 02/12/2018 at 72 Years. Comments: 04/09/2018 9:39 QUE Phan x1 stent TAVR - Transcatheter aortic valve replacement ([id number]) in 2018 at 72 Years. ICD - Internal cardiac defibrillator procedure (714335477) in 2016 at 70 Years. Comments: 04/09/2018 9:40 QUE Phan lead change Cardiac catheterization (36293073) in the month of 09/2015 at 69 Years. Comments: 10/29/2015 12:38 QUE Lizarraga no change Mitral valve prosthesis (83701937) on 05/17/2013 at 67 Years. Comments: 05/17/2013 18:37 QUE Feldman resternotomy, mitral valve replacement, insertion IABP, insertion TPW Insertion of intra-aortic balloon pump (34222673) on 05/17/2013 at 67 Years. Comments: 05/17/2013 23:25 QUE Feldman removal of L atrial appendage, insertion TPW Implantation of automatic cardiac defibrillator (654768616) in 2012 at 67 Years. Comments: 10/29/2015 12:21 QUE Lizarraga upgraded to TECHNICAL ENGINEER-d Balloon angioplasty of coronary artery (675320490) in 2008 at 63 Years. Comments: 10/04/2015 17:18 QUE Marte stent placement CABG - Coronary artery bypass graft (387520777) in 2006 at 61 Years. Comments: 04/09/2018 9:39 QUE Phan x4 Ankle (874546235) in 1997 at 52 Years. Comments: 10/04/2015 17:19 QUE Marte surgery Appendectomy (303955367) in 1993 at 48 Years. Amputation finger ([id number]) in 1970 at 25 Years. Comments: 03/09/2019 13:24 QUE Phan correction: left 3rd 10/04/2015 17:19 QUE Marte left second Colonoscopy (953170654). Esophagogastroduodenoscopy (044922807). Social History: Social & Psychosocial Habits Alcohol [...] Documentation reviewed: Current records. Assessment and Plan [place] [employer] Anesthesiologists (ASA) physical status classification: [...] RASHEEDA BEE DO on 02/24/2025 08:22 AM [id number] Telephone encounter Note* Telephone Encounter - Jonathan Hawkins [facility] - 02/21/2025 7:54 AM EDT [facility] Ambulatory Pharmacy Anticoagulation Clinic Anticoagulation Episode Summary Anticoagulation Care Providers Provider Role Specialty Phone number George Mata MD [facility] Internal Medicine [phone] Bessy Valverde is a 79 year old [...] Pharmacy Anticoagulation Clinic Pharmacy Anticoagulation Clinic Pager: [phone]. [facility]07-15-2025 Miscellaneous Notes* Telephone Encounter - Jonathan Hawkins RPh - 02/21/2025 7:54 AM EDT [facility] Ambulatory Pharmacy Anticoagulation Clinic Anticoagulation Episode Summary Anticoagulation Care Providers Provider Role Specialty Phone number George Mata MD [facility] Internal Medicine [phone] Bessy Valverde is a 79 year old [...] Pharmacy Anticoagulation Clinic Pharmacy Anticoagulation Clinic Pager: [phone]. documented in this encounterFire[facility] Telephone encounter Note * Telephone Encounter - Jonathan Hawkins RPh - 02/14/2025 10:25 AM EDT [facility] Ambulatory Pharmacy Anticoagulation Clinic Anticoagulation Episode Summary Anticoagulation Care Providers Provider Role Specialty Phone number George Mata MD Responsible Internal Medicine [phone] Bessy Valverde is a 79 year old [...] Pharmacy Anticoagulation Clinic Pharmacy Anticoagulation Clinic Pager: [phone]. [facility]07-08-2025 Miscellaneous Notes* Telephone Encounter - Jonathan Hawkins RPh - 02/14/2025 10:25 AM EDT [facility] Ambulatory Pharmacy Anticoagulation Clinic Anticoagulation Episode Summary Anticoagulation Care Providers Provider Role Specialty Phone number George Mata MD Responsible Internal Medicine [phone] Bessy Valverde is a 79 year old [...] Pharmacy Anticoagulation Clinic Pharmacy Anticoagulation Clinic Pager: [phone]. documented in this encounterFire[facility] Telephone encounter Note * Telephone Encounter - Jonathan Hawkins RPh - 02/07/2025 2:38 PM EDT [facility] Ambulatory Pharmacy Anticoagulation Clinic Anticoagulation Episode Summary Anticoagulation Care Providers Provider Role Specialty Phone number Goerge Mata MD Responsible Internal Medicine [phone] Bessy Valverde is a 79 year old [...] Pharmacy Anticoagulation Clinic Pharmacy Anticoagulation Clinic Pager: [phone]. [facility]07-01-2025 Miscellaneous Notes* Telephone Encounter - Jonathan Hawkins RPh - 02/07/2025 2:38 PM EDT [facility] Ambulatory Pharmacy Anticoagulation Clinic Anticoagulation Episode Summary Anticoagulation Care Providers Provider Role Specialty Phone number George Mata MD [facility] Internal Medicine [phone] Bessy Valverde is a 79 year old [...] Pharmacy Anticoagulation Clinic Pharmacy Anticoagulation Clinic Pager: [phone]. documented in this encounterFire[facility] Telephone encounter Note * Telephone Encounter - Jonathan Hawkins RPh - 01/31/2025 8:08 AM EDT [facility] Ambulatory Pharmacy Anticoagulation Clinic Anticoagulation Episode Summary Anticoagulation Care Providers Provider Role Specialty Phone number MataGeorge gerber MD Responsible Internal Medicine [phone] Bessy Valverde is a 79 year old [...] Pharmacy Anticoagulation Clinic Pharmacy Anticoagulation Clinic Pager: [phone]. [facility]06-24-2025 Miscellaneous Notes* Telephone Encounter - Jonathan Hawkins RPh - 01/31/2025 8:08 AM EDT [facility] Ambulatory Pharmacy Anticoagulation Clinic Anticoagulation Episode Summary Anticoagulation Care Providers Provider Role Specialty Phone number George Mata MD [facility] Internal Medicine [phone] Bessy Valverde is a 79 year old [...] Pharmacy Anticoagulation Clinic Pharmacy Anticoagulation Clinic Pager: [phone]. documented in this encounterFire[facility]06[facility] Telephone encounter Note * Telephone Encounter - [...] come in for appointment. Sandi Denton RN [facility]06-23-2025 Miscellaneous Notes* Telephone Encounter - Sandi Denton [...] appointment. Sandi Denton RN documented in this encounterFirelands [facility]06-[facility]-2025 Telephone encounter Note * Telephone Encounter - Jonathan Hawkins, [facility] - 01/24/2025 8:09 AM EDT [facility] Ambulatory Pharmacy Anticoagulation Clinic Anticoagulation Episode Summary Anticoagulation Care Providers Provider Role Specialty Phone number George Mata MD Responsible Internal Medicine [phone] Bessy Valverde is a 79 year old [...] Pharmacy Anticoagulation Clinic Pharmacy Anticoagulation Clinic Pager: [phone]. [facility]06-17-2025 Miscellaneous Notes* Telephone Encounter - Jonathan Hawkins RPh - 01/24/2025 8:09 AM EDT [facility] Ambulatory Pharmacy Anticoagulation Clinic Anticoagulation Episode Summary Anticoagulation Care Providers Provider Role Specialty Phone number George Mata MD [facility] Internal Medicine [phone] Bessy Valverde is a 79 year old [...] Pharmacy Anticoagulation Clinic Pharmacy Anticoagulation Clinic Pager: [phone]. documented in this encounterFirelands [facility]06-[facility]-2025 Telephone encounter Note * Telephone Encounter - Jonathan Hawkins RPh - 01/17/2025 10:31 AM EDT [facility] Ambulatory Pharmacy Anticoagulation Clinic Anticoagulation Episode Summary Anticoagulation Care Providers Provider Role Specialty Phone number MataGeorge morris MD [facility] Internal Medicine [phone] Bessy Valverde is a 79 year old [...] Pharmacy Anticoagulation Clinic Pharmacy Anticoagulation Clinic Pager: [phone]. [facility]06-10-2025 Miscellaneous Notes* Telephone Encounter - Jonathan Hawkins RPh - 01/17/2025 10:31 AM EDT [facility] Ambulatory Pharmacy Anticoagulation Clinic Anticoagulation Episode Summary Anticoagulation Care Providers Provider Role Specialty Phone number George Mata MD Responsible Internal Medicine [phone] Bessy Valverde is a 79 year old [...] Pharmacy Anticoagulation Clinic Pharmacy Anticoagulation Clinic Pager: [phone]. documented in this encounterFirelands [facility]06-[facility]-2025 Telephone encounter Note * Telephone Encounter - Jonathan Hawkins RPh - 01/10/2025 4:20 PM EDT [facility] Ambulatory Pharmacy Anticoagulation Clinic Anticoagulation Episode Summary Anticoagulation Care Providers Provider Role Specialty Phone number George Mata MD [facility] Internal Medicine [phone] Bessy Valverde is a 79 year old [...] result of 2.3 is therapeutic Was in [facility] 12/31-01/04 for elevated HR and A fib [...] missed any doses of warfarin. Jonathan Hawkins [facility] Clinical Pharmacist, Pharmacy Anticoagulation Clinic Pharmacy Anticoagulation Clinic Pager: [phone]. [facility]06-03-2025 Miscellaneous Notes* Telephone Encounter - Jonathan Hawkins RPh - 01/10/2025 4:20 PM EDT [facility] Ambulatory Pharmacy Anticoagulation Clinic Anticoagulation Episode Summary Anticoagulation Care Providers Provider Role Specialty Phone number George Mata MD [facility] Internal Medicine [phone] Bessy Valverde is a 79 year old [...] result of 2.3 is therapeutic Was in [facility] 12/31-01/04 for elevated HR and A fib [...] Pharmacy Anticoagulation Clinic Pharmacy Anticoagulation Clinic Pager: [phone]. * Telephone Encounter - Jonathan Hawkins RPh - 01/10/2025 4:15 PM EDT Melanie Scruggs HUC MS 01/10/25 4:13 PM Note Pt. called stated pt. INR was 2.3 today. Pt. is having a procedure on 01/12/25. Pt. worriedhis procedure will not happen if his INR not under 2.0. Pt. requestig a return call at [phone] documented in this encounterFirelands [facility]06-[facility]-2025 Telephone encounter Note * Telephone Encounter - Jonathan Hawkins RPh - 01/10/2025 4:15 PM EDT Melanie Scruggs HUC MS 01/10/25 4:13 PM Note Pt. called stated pt. INR was 2.3 today. Pt. is having a procedure on 01/12/25. Pt. worriedhis procedure will not happen if his INR not under 2.0. Pt. requestig a return call at [phone] [facility]06-03-2025 Instructions* Patient Instructions* eGorge Mata MD - 01/10/2025 12:16 PM EDT [...] appointment this with Dr. Lynette Naik in [place] for removalof the skin cancer lesion. - Go [facility] [place] to assess the device and battery. - [...] updated labs are needed. documented in this encounterFirelands [facility] Medical [facility]06-03-2025 NoteHNO ID: [id number] Author: GEORGE MATA MD Service: ? Author Type: Physician Type: Progress Notes Filed: 01/10/2025 13:17 Note Text: This note was created using pinion-pinsriter. Subjective Patient presents with: [facility] F/U Bessy Valverde is a 79 year old male here with . Recording using [employer] software for draft documentation of the visit was discussed with the patient/authorized mechanical service representative; all questions welcomed and answered. 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 uadmmuahc-fpvexc-fyfxygwi-scop () 16.2-0.1037 -0.0194 mg per tablet Take [...] Conjunctiva/sclera: Conjunctivae normal. Cardiovascular: (more content not included)...[facility]06-03-2025 History of Present illness Narrative* George Mata MD - 01/10/2025 11:56 AM EDT This note was created using NoteWriter. Subjective Patient presents with: Hospital F/U Bessy Valverde is a 79 year old male here with . Recording using [employer] software for draft documentation of the visit was discussed with the patient/authorized mechanical service representative; all questions welcomed and answered. 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 mhoywktto-nhnwlq-urldatsq-scop () 16.2-0.1037 -0.0194 mg per tablet Take [...] information. George Mata MD documented in this encounterFirelands [facility]05-29-2025 Telephone encounter Note * Telephone Encounter - Sandi Denton RN - 01/05/2025 3:10 PM EDT Images from the original note were not included. TRANSITION CARE MANAGEMENT (TCM) INITIAL CONTACT Personal Counselor Outreach Provider Action/FYI: 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 Patient has tohave skin cancer removed from his face in a couple of weeks. Patient was admitted to [place] on Thursday12/31/2024 Initial contact with patient post discharge, spoke to spouse. Patient identified by name and . TRANSITION CARE MANAGEMENT INITIAL OUTREACH DOCUMENTATION: No data to display SUMMARY: -Pt discharged from [facility] on 01/04/2025. -Admitted for: Atrial Fibrillation Do [...] hospitalization: Discharge Summary is scanning into documents [facility]05-29-2025 Miscellaneous Notes* Telephone Encounter - Sandi Denton RN - 01/05/2025 3:10 PM EDT Images from the original note were not included. TRANSITION CARE MANAGEMENT (TCM) INITIAL CONTACT Personal Counselor Outreach Provider Action/FYI: 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 Patient has tohave skin cancer removed from his face in a couple of weeks. Patient was admitted to [place] on Thursday12/31/2024 Initial contact with patient post discharge, spoke to spouse. Patient identified by name and . TRANSITION CARE MANAGEMENT INITIAL OUTREACH DOCUMENTATION: No data to display SUMMARY: -Pt discharged from [facility] on 01/04/2025. -Admitted for: Atrial Fibrillation Do [...] is scanning into documents documented in this encounterFirelands [facility]05-28-2025 Pastoral care Progress note Pastoral Care Note [...] She talked about her nephew who is chcf and was baptized. We explored their monica and what we would do if it wasn't for God. They appreciated the visit and prayer. Number Present During Pastoral Visit : 1 Pastoral Care Visit Length : 15 minute(s) Kang Ruffin - 01/04/2025 14:44 EDT Digitally Signed by Kang Ruffin on 01/04/2025 02:41 PM Digitally Signed by Kang Ruffin on 01/04/2025 02:44 PM [id number] Note Discharge Instructions Thank you for allowing [facility] to assist you with your healthcare needs. The following is importantdischarge information regarding your hospital visit. Your Care Team GEORGE MATA MD Your Diagnosis Ventricular tachycardia What to do next Scheduled Follow-Up Appointments Appointment Type When With Where Contact Information StatusCV OV 06/06/2025 02:00 PM EDT JAVIER GANT [facility] Confirmed Follow Up Appointments Follow Up with VERONIQUE TOUSSAINT MD When:In 2 weeks Where:[address] [facility] [address] [address] [phone] Follow Up with BRIONNA GANT MD When:In 2 weeks Where:[address] [facility] [address] [place] [address]- [phone] Follow Up with Post 1XRN Discharge Visit FollowUp scheduled for 01-06-25 b/t 8a-12p Follow Up with GEORGE MATA MD When:Within 1-2 days Where:[address] [place] [address]- [phone] Additional Information: Please call the office to schedule a hospital follow up appointment. Follow Up with [facility] When:03/21/2025 02:30 PM EDT Where:[address] [place] [address]- [phone] Follow Up with BRIONNA GANT MD When:06/06/2025 02:00 PM EDT Where:[address] [facility] [address] [address]- [phone] The Following Activity and Diet Have Been [...] with a meal Refills: [address] [facility] Changed bumetanide (bumetanide 1 mg oral tablet) 1 tab(s) by mouth Once a day as needed for weight gain >3lb in 3 days Duration: 90 Days Pickup at [facility] Unchanged acetaminophen (Tylenol 325 mg oral tablet) [...] mouth Every Thursday and Thursday Pharmacy Information [facility]: [address] [place] [address] [phone] What How Much When Why Comments Stop [...] may be diagnosed with: Electrocardiogram (ECG). Ambulatory manager audit. This device records your heartbeats for 24 [...] 07/27/2006 Document Revised: 09/16/2018 Document Reviewed: 09/17/2018 [employer] Patient Education 2020 [employer] Additional Information VACCINATE! IT SAVES LIVES! Members of the community who have not yet received the COVID-19 vaccine and would like to receive it can visit one of [facility] vaccine clinics. There are many vaccine clinic locations within the [facility]. For locations and available times, please visit [email or web address] It is important to note that some COVID mobile vaccine clinics are held outdoors and may be canceled in rainy or stormy conditions. To learn more about pediatric vaccinations (ages 5-11), we invite you to visit the [facility] webpage. [email or web address] [email or web address] learn more about the COVID-19 vaccine, we invite you to visit the CDC website for a list of frequently asked questions.https://www.cdc.gov/coronavirus/2019-ncov/vaccines/faq.html [facility] Patient Portal Access Instructions: Stay connected with your healthcare team and access your personal medical information anytime with the [facility] Patient Portal. Please follow the directions below to create your [facility] account: 1.Access the email account you provided upon registration to the hospital/physician office.2.Look for an invitation email from [facility].3.Open the email and access the invitation link: AcceptInvitation to [facility].4.Fill in the required mitchell to create your account. To access your account, visit [facility] [employer]. Click the blue button labeled Access Patient [...] who you will allowto register on the [place] [facility] Patient Portal for access to your information. You can also access the [place] [facility] Patient Portal on the [place] [facility] charanjit. Simply click on Patient Portal and then log into your account. If you would like to receive a full copy of your medical records, please contact the [facility] Medical Records Department by calling [phone], Thursday through Thursday between 8 a.m. and [...] Call your local pharmacy or go to [email or web address] to find one close to you.3.Make use of household items: Use cat litter or old coffee grounds to dispose medications if other options arenot available. Mix your drugs with these household products, seal them in an airtight container andthrow it into the garbage. Call [facility]: [phone] to be sure your drugs can be [...] that I should contact my d octor. Patient/Shingler Signature: Date/Time: Relationship to Patient: Witness Name/Signature: Date/Time: [id number] Discharge summary Date of Service 01/04/2025 Discharge Diagnosis Paroxysmal atrial fibrillation on warfarin (sotalol failure) GARY CAD s/p CABG and last PCI to RCA in 2018 Status post mitral valve repair and TRINITY HFrEF (EF 30%) s/p TECHNICAL ENGINEER-D no acute exacerbation Hospital Course 79-year-old male with a past medical history of CAD s/p CABG and PCI to the RCA in 2018, hypertension, hyperlipidemia, severe aortic stenosis s/p TAVR, mitral regurgitation s/p mitral valve repair, atrial fibrillation on sotalol and warfarin, and heart failure with reduced ejection fraction (LVEF 30%) s/p TECHNICAL ENGINEER-D, presented to the emergency department for evaluation of tachycardia. The patient states that he was noticing fast heart rates and palpitations at home this morning when he woke up. He also reports associated shortness of breath and fatigue. The patient and his reached out to the on-call data migration consultant who instructed them to present to the [...] VERONIQUE TOUSSAINT MD When:In 2 weeks Where:[address] [facility] [address] [facility] [place] [address]- [phone] Follow Up with BRIONNA GANT MD When:In 2 weeks Where:[address] [facility] [address] [place] [address] [phone] Follow Up with Post 1XRN Discharge Visit FollowUp scheduled for 01-06-25 b/t 8a-12p Follow Up with GEORGE MATA MD When:Within 1-2 days Where:[address] [place] [address]- [phone] Additional Information: Please call the office to schedule a hospital follow up appointment. Follow Up with [facility] When:03/21/2025 02:30 PM EDT Where:[address] [facility] [address] [place], [place] [address]- [phone] Follow Up with BRIONNA GANT MD When:06/06/2025 02:00 PM EDT Where:[address] [facility] [address] [place] [address]- [phone] Follow Up Appointments No qualifying data available. [...] PM Digitally Signed by AILYN SHARP MD [facility]Kvprukun38-44-1627 Note Date of Service 01/04/2025 Chief Complaint [...] reduced ejection fraction, ischemic cardiopathy status post TECHNICAL ENGINEER-D in 2016, and obesity presents emergency department [...] CVS: RRR, normal S1/S2, CABG Scar, left-sided TECHNICAL ENGINEER-D scar Lung: CTAB, no wheezes/rhonchi/rales Abd: Soft, [...] sotalol and warfarin #Ischemic cardiomyopathy status post TECHNICAL ENGINEER-D in 2016 #Obesity - Bender Helper: Dr. Gant - Salvationist: Dr. Toussaint - Latest EKG reviewed - [...] II, MD PGY- Cardiovascular Disease Fellow Pager: [phone] I have seen and examined the patient with Dr. Maki, and I have instructed the decision making. I agree with all expressed in this note. Arnulfo Encinas MD Digitally Signed by CATRACHITO MAKI MD on 01/04/2025 09:20 AM Digitally Signed by ARNULFO ENCINAS MD, Dr on 01/04/2025 05:28 PM [id number] Cardiology Progress note Date of Service 01/03/2025 [...] repair and TRINITY HFrEF (EF 30%) s/p TECHNICAL ENGINEER-D no acute exacerbation Patient came in for [...] GATITO ROSE MD on 01/03/2025 01:52 PM [facility] [id number] Cardiology Progress note Date of Service 01/03/2025 [...] repair and TRINITY HFrEF (EF 30%) s/p TECHNICAL ENGINEER-D no acute exacerbation Patient came in for [...] GATITO ROSE MD on 01/03/2025 01:52 PM [facility] CincinnatiDeammkkv62-22-7959 Cardiology Consult note Date of Service 01/03/2025 [...] reduced ejection fraction, ischemic cardiopathy status post TECHNICAL ENGINEER-D in 2016, and obesity presents emergency department [...] CVS: RRR, normal S1/S2, CABG Scar, left-sided TECHNICAL ENGINEER-D scar Lung: CTAB, no wheezes/rhonchi/rales Abd: Soft, [...] sotalol and warfarin #Ischemic cardiomyopathy status post TECHNICAL ENGINEER-D in 2016 #Obesity - Bender Helper: Dr. Gant - Salvationist: Dr. Toussaint - Latest EKG reviewed - [...] needed. Patient seen and discussed with Dr. Ce Maki II, MD PGY- Cardiovascular Disease Fellow Pager: [phone] I have seen this patient in conjunction with Dr. Maki. I have read all above notes, and amendedthem as needed, and I am in agreement. Arnulfo Encinas MD Problem List/Past Medical History Ongoing Acid reflux Acute kidney injury AF (atrial fibrillation) Aortic stenosis Asthma ASTHMA Atrial fibrillation BIVENTRICULAR ICD (IMPLANTABLE CARDIOVERTER-DEFIBRILLATOR) IN PLACE CAD - Coronary artery disease 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 ARTERY Cardiomyopathy CHRONIC SYSTOLIC CHF (CONGESTIVE HEART [...] ENCINAS MD, Dr on 01/03/2025 06:25 PM [facility] CincinnatiPblasvmn80-18-4553 Hospital Discharge instructions Patient Education 01/03/2025 02:04:48 [...] may be diagnosed with: Electrocardiogram (ECG). Ambulatory manager audit. This device records your heartbeats for 24 [...] 07/27/2006 Document Revised: 09/16/2018 Document Reviewed: 09/17/2018 [employer] Patient Education 2020 [employer] Follow Up Care 12/31/2024 10:43:09 With:VERONIQUE TOUSSAINT MD Address: [address] [place] [address] [address] [facility] [place] [address]- [phone] When:Within 2 Week(s) With:BRIONNA GANT MD Address: [address] [facility] [address] [place] [address]- [phone] When:Within 2 Week(s) With:Post 1XRN Discharge Visit FollowUp scheduled for 01-06-25 b/t 8a-12p Address:Unknown When: Unknown With:[facility] Address: [address] [place] [address] [address] [place], [place] [address]- [phone] When:03/21/2025 14:30:00 With:BRIONNA GANT MD Address: [address] [facility] [address] [place] [address]- [phone] When:06/06/2025 14:00:00 With:GEORGE MATA MD Address: [address] [place], [place] [address]- [phone] When:1-2 days Comments:Please call the office to schedule a hospital follow up appointment. [facility] 05-26-2025 Cardiology Progress note Date of Service [...] with reduced ejection fraction (LVEF 30%) s/p TECHNICAL ENGINEER-D, well compensated Plan: Rates better controlled, however still having periods of mild tachycardia. Continue amiodarone 400 mg twice daily for now. Continue home warfarin. Plan for EP consult tomorrow for additional recommendations. Continue home Bumex 1 mg p.o. daily, Entresto, Toprol-XL. [1] History and Physical; GINGER ALEXANDRE DO 12/31/2024 16:50 EDT Digitally Signed by GINGER ALEXANDRE DO on 01/02/2025 06:21 PM [facility] CincinnatiJmklfoum29-47-7771 Cardiology Progress note Date of Service 01/02/2025 [...] with reduced ejection fraction (LVEF 30%) s/p TECHNICAL ENGINEER-D, well compensated Plan: Rates better controlled, however still having periods of mild tachycardia. Continue amiodarone 400 mg twice daily for now. Continue home warfarin. Plan for EP consult tomorrow for additional recommendations. Continue home Bumex 1 mg p.o. daily, Entresto, Toprol-XL. [1] History and Physical; GINGER ALEXANDRE DO 12/31/2024 16:50 EDT Digitally Signed by GINGER ALEXANDRE DO on 01/02/2025 06:21 PM [facility] CincinnatiGmsobrfz71-41-4294 Cardiology Progress note Review of symptoms: Review [...] Labs 01/01 0626 Potassium Level4.1 Calcium Lvl8.9 Clkmjwxo621 Electrolyte Balance8.0 CO225 BUN/Creatinine Ratio29.5H Glucose Votgi928 BUN38.0H Estimated Glomerular Kjwufcm57 Sodium Ytlmg487 Creatinine Lvl (s)1.29 Magnesium Lvl2.1 Sboooki90.8H PT International Ratio1.9 RDW16.9H Neutrophil, Absolute5.1 Lymphocyte %12.2L Hct31.8L Monocyte, Absolute0.7 Nocitads898C Monocyte %10.3 MCV85.5 Eosinophil, Absolute0.2 MPV9.2 Eosinophil %2.7 Basophil, Absolute0.1 WBC6.9 MCH29.1 Basophil %0.7 RBC3.72L MCHC34.0 Neutrophil %74.1 Lymphocyte, Absolute0.8L Hgb10.8L 12/31 2108 Ugyyjsh62.1H PT International Ratio1.8 12/31 1510 High Sensitivity Troponin I65H 12/31 1322 High Sensitivity Troponin I69H 12/31 1128 BUN41.0H Cvslvjbw757 Bili Total1.10 BUN/Creatinine Ratio29.3H Glucose Kzwph286K CO228 Creatinine Lvl (s)1.40 Alk Phos80 Globulin3.7 Sodium Bivye248 Estimated Glomerular Naypvpv89 Calcium Lvl9.4 AST/SGOT22 High Sensitivity Troponin I63H A/G Ratio1.0 Potassium Level4.0 Total Protein7.4 ALT/SGPT13 N-Terminal dgfQIM7294 Albumin Level3.7 Electrolyte Balance8.0 PT International Ratio1.6 Ijfqqbn59.7H Basophil %0.6 RBC4.08L MCHC34.4 Monocyte Distribution Width19.60 Neutrophil %75.8H Lymphocyte, Absolute0.7L Hgb11.9L Neutrophil, Absolute5.1 RDW16.8H Lymphocyte %11.1L Monocyte, Absolute0.7 Hct34.5L Qantgjdu715G Monocyte %9.7 Eosinophil, Absolute0.2 MCV84.7 MPV8.9 Eosinophil [...] failure LVEF 30% Ischemic cardiomyopathy status post TECHNICAL ENGINEER D- continue home medications CAD status post CABG last intervention was in RCA 2018 Hypertension Dyslipidemia Suggest start amiodarone 400mg p.o. BID , Patient was on high-dose sotalol we stopped it yesterday. Will reassess tomorrow adding IV amiodarone load depending on telemetry On discharge decrease amiodarone dose EP consult on Thursday Digitally Signed by CARLOS RIDLEY MD on 01/01/2025 12:32 PM [facility] CincinnatiYfdzoqfd26-13-9953 History and physical note Date of Service [...] with reduced ejection fraction (LVEF 30%) s/p TECHNICAL ENGINEER-D, presented to the emergency department for evaluation of tachycardia. The patient states that he was noticing fast heart rates and palpitations at home this morning when he woke up. He also reports associated shortness of breath and fatigue. The patient and his reached out to the on-call data migration consultant who instructed them to present to the [...] with reduced ejection fraction (LVEF 30%) s/p TECHNICAL ENGINEER-D, well compensated Plan: The patient symptoms at home are most likely due to rapid atrial fibrillation. His TECHNICAL ENGINEER-D was interrogated in the emergency department multiple [...] CAD - Coronary artery disease 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 ART[place] Cardiomyopathy CHRONIC SYSTOLIC CHF (CONGESTIVE HEART [...] GINGER ALEXANDRE DO on 01/01/2025 01:18 AM [facility]Pjpvjpzh69-71-0015 History and physical note Date of Service [...] with reduced ejection fraction (LVEF 30%) s/p TECHNICAL ENGINEER-D, presented to the emergency department for evaluation of tachycardia. The patient states that he was noticing fast heart rates and palpitations at home this morning when he woke up. He also reports associated shortness of breath and fatigue. The patient and his reached out to the on-call data migration consultant who instructed them to present to the [...] with reduced ejection fraction (LVEF 30%) s/p TECHNICAL ENGINEER-D, well compensated Plan: The patient symptoms at home are most likely due to rapid atrial fibrillation. His TECHNICAL ENGINEER-D was interrogated in the emergency department multiple [...] CAD - Coronary artery disease 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 ARTERY Cardiomyopathy CHRONIC SYSTOLIC CHF (CONGESTIVE HEART [...] GINGER ALEXANDRE DO on 01/01/2025 01:18 AM [facility] CincinnatiPtchxvym82-25-5729 Respiratory therapy Hospital Progress note Respiratory Therapy [...] Therapeutic interchange, discontinue future evaluations Violette Tijerina OUTREACH LIAISON - 12/31/2024 21:12 EDT Digitally Signed by Violette Tijerina OUTREACH LIAISON on 12/31/2024 09:12 PM [facility] CincinnatiFwbedyex92-15-1443 Evaluation + Plan noteExtracted from: Title:History and Physical Author:NAIN ALEXANDRE DO Date:12/31/24 Chronic atrial fibrillation on sotalol and warfarin, presented with RVR CAD s/p CABG and PCI to the RCA 2018 History of severe aortic stenosis s/p TAVR Mitral regurgitation s/p MV repair Heart failure with reduced ejection fraction (LVEF 30%) s/p TECHNICAL ENGINEER-D, well compensated Plan: The patient symptoms at home are most likely due to rapid atrial fibrillation. His TECHNICAL ENGINEER-D was interrogated in the emergency department multiple [...] Provider:JAVIER GANT Location:[facility] Appointment Type:CV OV [facility] 05-24-2025 Note* Exam Date Time Procedure Performing Provider Status 12/31/24 11:31 AM XR Chest 1 View GENNA SANCHEZ DO; Auth (Verified) [id number] ORIGINAL EXAMINATION: Exam Title:ONE XRAY VIEW OF THE CHEST Completed Time: 12/31/2024 11:31 am Procedure Description:CHEST ONE VIEW AP/PA COMPARISON: July 25, 2021 chest x-ray HISTORY: ORDERING SYSTEM PROVIDED HISTORY: Reason for Exam: palpitations FINDINGS: Irie-vv-lwjqdfcm cardiomegaly. CABG. Pacing leads appear intact. Left-sided [...] 12/31/2024 11:35:34 AM Ordering Provider: MEGHA HAHN [facility] CincinnatiUzvhwani83-92-1393 Note* Exam Date Time Procedure Performing Provider Status 12/31/24 10:50 AM EKG (ED) - CV ROXANE DIXON MD; Au (Verified) ECG Final Report AFIB/FLUTTER AND VENTRICULAR-PACED RHYTHM This EKG was read and contributed directly to the care of the patient Electronic Signature: ROXANE DIXON MD 12/31/2024 15:36:57 [facility] CincinnatiVbpgnccf03-09-7116 Telephone encounter Note* Telephone Encounter - Valerio Acharya [facility] - 12/26/2024 3:34 PM EDT Spoke to patient - advised to have INR checked within two weeks of tomorrow's procedure. [facility]05-19-2025 Miscellaneous Notes* Telephone Encounter - Valerio Acharya RPh - 12/26/2024 3:34 PM EDT Spoke to patient - advised to have INR checked within two weeks of tomorrow's procedure. * Telephone Encounter - Kelechi (LOANZKaran Easton - 12/26/2024 9:08 AM EDT Patient called to let us know he will not be able to test tomorrow as he was advised by MD to hold warfarin yesterday and today for a procedure tomorrow. 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 Patient is asking when next INR should be done and can be reached at [phone] and stated we mayleave a detailed message if no answer. Karan Lorenz (LOANZ) documented in this encounterFirelands [facility]05-19-2025 Telephone encounter Note * Telephone Encounter - Kelechi (LOANZKaran Easton - 12/26/2024 9:08 AM EDT Patient called to let us know he will not be able to test tomorrow as he was advised by MD to hold warfarin yesterday and today for a procedure tomorrow. 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 Patient is asking when next INR should be done and can be reached at [phone] and stated we mayleave a detailed message if no answer. Karan Lorenz (LOANZ) [facility]05-06-2025 Telephone encounter Note* Telephone Encounter - Jonathan Hawkins RPh - 12/13/2024 7:50 AM EDT [facility] Ambulatory Pharmacy Anticoagulation Clinic Anticoagulation Episode Summary Anticoagulation Care Providers Provider Role Specialty Phone number MataGeorge gerber MD Responsible Internal Medicine [phone] Bessy Valverde is a 78 year old [...] Pharmacy Anticoagulation Clinic Pharmacy Anticoagulation Clinic Pager: [phone]. [facility]05-06-2025 Miscellaneous Notes* Telephone Encounter - Jonathan Hawkins RPh - 12/13/2024 7:50 AM EDT [facility] Ambulatory Pharmacy Anticoagulation Clinic Anticoagulation Episode Summary Anticoagulation Care Providers Provider Role Specialty Phone number George Mata MD Responsible Internal Medicine [phone] Bessy Valverde is a 78 year old [...] Pharmacy Anticoagulation Clinic Pharmacy Anticoagulation Clinic Pager: [phone]. documented in this encounterFirelands [facility]04-22-2025 Telephone encounter Note * Telephone Encounter - Jonathan Hawkins RPh - 11/29/2024 8:53 AM EDT [facility] Ambulatory Pharmacy Anticoagulation Clinic Anticoagulation Episode Summary Anticoagulation Care Providers Provider Role Specialty Phone number George Mata MD [facility] Internal Medicine [phone] Bessy Valverde is a 78 year old [...] Pharmacy Anticoagulation Clinic Pharmacy Anticoagulation Clinic Pager: [phone]. [facility]04-22-2025 Miscellaneous Notes* Telephone Encounter - Jonathan Hawkins RPh - 11/29/2024 8:53 AM EDT [facility] Ambulatory Pharmacy Anticoagulation Clinic Anticoagulation Episode Summary Anticoagulation Care Providers Provider Role Specialty Phone number George Mata MD [facility] Internal Medicine [phone] Bessy Valverde is a 78 year old [...] missed any doses of warfarin. Jonathan Hawkins [facility] Clinical Pharmacist, Pharmacy Anticoagulation Clinic Pharmacy Anticoagulation Clinic Pager: [phone]. documented in this encounterFirelands [facility]04-11-2025 Note* Exam Date Time Procedure Performing Provider Status 11/18/24 11:37 AM Echocardiogram, Adul t - CV VINCE PARKER MD; Auth (Verified) [facility] [id number] Telephone encounter Note* Telephone Encounter - Daphney Obando LPN - 11/17/2024 3:47 PM EDT Appt 02/01/2025. Daphney Obando LPN [facility]04-10-2025 Miscellaneous Notes* Telephone Encounter - Daphney Obando [...] follows: Requested Prescriptions Pending Prescriptions Disp Refills dkkwvaujk-pqzohh-rulibiqd-scop () 16.2-0.1037 -0.0194 mg per tablet 240 tablet 0 Sig: Take 1 tablet by mouth every 6 hours as needed. Please review and advise. Reyna Dominguez documented in this encounterFirelands [facility]04-10-2025 Telephone encounter Note * Telephone Encounter - Reyna Thompson - 11/17/2024 3:26 PM EDT Patient has been identified by name and date of : Yes Last office visit in this department: 11/01/2024 RX INSTRUCTIONS: Patient aware RX escripted to mail away pharmacy. No need to notify patient. Patient phones requesting refills as follows: Requested Prescriptions Pending Prescriptions Disp Refills sidylirve-ttbibh-fgdyrced-scop () 16.2-0.1037 -0.0194 mg per tablet 240 tablet 0 Sig: Take 1 tablet by mouth every 6 hours as needed. Please review and advise. Reyna Dominguez [facility]04-08-2025 Telephone encounter Note* Telephone Encounter - Elliott Gleason [facility] - 11/15/2024 8:54 AM EDT [facility] Ambulatory Pharmacy Anticoagulation Clinic Anticoagulation Episode Summary Anticoagulation Care Providers Provider Role Specialty Phone number George Mata MD Responsible Internal Medicine [phone] Bessy Valverde is a 78 year old [...] ALLERGIES No Known Allergies Indication for Warfarin: residential (current) use of anticoagulants Permanent atrial fibrillation [...] Pharmacy Anticoagulation Clinic Pharmacy Anticoagulation Clinic Pager: [phone]. [facility]04-08-2025 Miscellaneous Notes* Telephone Encounter - Elliott Gleason RPh - 11/15/2024 8:54 AM EDT [facility] Ambulatory Pharmacy Anticoagulation Clinic Anticoagulation Episode Summary Anticoagulation Care Providers Provider Role Specialty Phone number George Mata MD [facility] Internal Medicine [phone] Bessy Valverde is a 78 year old [...] ALLERGIES No Known Allergies Indication for Warfarin: residential (current) use of anticoagulants Permanent atrial fibrillation [...] missed any doses of warfarin. Elliott Gleason [facility] Clinical Pharmacist, Pharmacy Anticoagulation Clinic Pharmacy Anticoagulation Clinic Pager: [phone]. documented in this encounterFirelands [facility]03-25-2025 NoteHNO ID: [id number] Author: GEORGE MATA MD Service: ? Author Type: Physician Type: Progress Notes Filed: 11/01/2024 09:34 Note Text: This note was created using pinion-pinsriter. 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 lowkvbrsy-jsvfcs-tohhxscp-scop () 16.2-0.1037 -0.0194 mg per tablet Take [...] Medication: tramadol. Benefits: [employer] (more content not included)...[facility]03-25-2025 History of Present illness Narrative* George Mata MD - 11/01/2024 9:00 AM EDT This note was created using Mahaloter. 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 sfqrpkttv-qgenxt-wfyuntmy-scop () 16.2-0.1037 -0.0194 mg per tablet Take [...] the short term and not in the prison. Risks: Possible side effects were discussed including sedation, confusion. Possible interactions: none if taken infrequently. Warnings: addiction, abuse. Use sparingly. - TRAMADOL 50 MG TABLET. Take one(1) tablet two(2) times daily as needed. 2. Encounter for immunization - ICD9: V03.89, ICD10: Z23 - PFIZER-BIONTECH COVID-19 VACCINE AGE 12+ YR ([facility]) Postponed. 3. Asthma, moderate persistent, well-controlled - ICD9: 493.90, ICD10: J45.40 - Moderate persistent asthma stable - ALBUTEROL SULFATE HFA 90 MCG/ACTUATION AEROSOL INHALER 4. Atherosclerosis of [place] coronary artery of [place] heart without angina pectoris - ICD9: 414.01, [...] 274.00, ICD10: M10.9 Recheck. - URIC ACID George Mata MD documented in this encounterFirelands [facility]03-25-2025 Telephone encounter Note * Telephone Encounter - Lian Coulter, [facility] - 11/01/2024 8:33 AM EDT [facility] Ambulatory Pharmacy Anticoagulation Clinic Anticoagulation Episode Summary Anticoagulation Care Providers Provider Role Specialty Phone number George Mata MD [facility] Internal Medicine [phone] Bessy Valverde is a 78 year old [...] ALLERGIES No Known Allergies Indication for Warfarin: residential (current) use of anticoagulants Permanent atrial fibrillation [...] Pharmacy Anticoagulation Clinic Pharmacy Anticoagulation Clinic Pager: [phone]. 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 Lian Coulter [facility] Clinical Pharmacist, Pharmacy Anticoagulation Clinic Pharmacy Anticoagulation Clinic Pager: [phone]. documented in this encounterFirelands [facility]03-11-2025 Telephone encounter Note * Telephone Encounter - Jonathan Hawkins [facility] - 10/18/2024 7:58 AM EDT [facility] Ambulatory Pharmacy Anticoagulation Clinic Anticoagulation Episode Summary Anticoagulation Care Providers Provider Role Specialty Phone number George Mata MD Responsible Internal Medicine [phone] Bessy Valverde is a 78 year old [...] Pharmacy Anticoagulation Clinic Pharmacy Anticoagulation Clinic Pager: [phone]. [facility]03-11-2025 Miscellaneous Notes* Telephone Encounter - Jonathan Hawkins RPh - 10/18/2024 7:58 AM EDT [facility] Ambulatory Pharmacy Anticoagulation Clinic Anticoagulation Episode Summary Anticoagulation Care Providers Provider Role Specialty Phone number George Mata MD [facility] Internal Medicine [phone] Bessy Valverde is a 78 year old [...] Pharmacy Anticoagulation Clinic Pharmacy Anticoagulation Clinic Pager: [phone]. documented in this encounterFirelands [facility]02-25-2025 Telephone encounter Note * Telephone Encounter - Jonathan Hawkins RPh - 10/04/2024 8:19 AM EST [facility] Ambulatory Pharmacy Anticoagulation Clinic Anticoagulation Episode Summary Anticoagulation Care Providers Provider Role Specialty Phone number George Mata MD [facility] Internal Medicine [phone] Bessy Valverde is a 78 year old [...] missed any doses of warfarin. Jonathan Hawkins [facility] Clinical Pharmacist, Pharmacy Anticoagulation Clinic Pharmacy Anticoagulation Clinic Pager: [phone]. [facility]02-25-2025 Miscellaneous Notes* Telephone Encounter - Jonathan Hawkins RPh - 10/04/2024 8:19 AM EST [facility] Ambulatory Pharmacy Anticoagulation Clinic Anticoagulation Episode Summary Anticoagulation Care Providers Provider Role Specialty Phone number George Mata MD [facility] Internal Medicine [phone] Bessy Valverde is a 78 year old [...] Pharmacy Anticoagulation Clinic Pharmacy Anticoagulation Clinic Pager: [phone]. documented in this encounterFirelands [facility] Telephone encounter Note * Telephone Encounter - Jonathan Hawkins RPh - 09/20/2024 9:11 AM EST [facility] Ambulatory Pharmacy Anticoagulation Clinic Anticoagulation Episode Summary Anticoagulation Care Providers Provider Role Specialty Phone number George Mata MD Responsible Internal Medicine [phone] Bessy Valverde is a 78 year old [...] Pharmacy Anticoagulation Clinic Pharmacy Anticoagulation Clinic Pager: [phone]. [facility]02-11-2025 Miscellaneous Notes* Telephone Encounter - Jonathan Hawkins RPh - 09/20/2024 9:11 AM EST [facility] Ambulatory Pharmacy Anticoagulation Clinic Anticoagulation Episode Summary Anticoagulation Care Providers Provider Role Specialty Phone number George Mata MD Responsible Internal Medicine [phone] Bessy Valverde is a 78 year old [...] Pharmacy Anticoagulation Clinic Pharmacy Anticoagulation Clinic Pager: [phone]. documented in this encounterFirelands [facility]-2025 Telephone encounter Note * Telephone Encounter - Galilea Plunkett MA - 09/16/2024 10:45 AM EST notified and given Dr. Iverson number to call and schedule. Faxed all documents Galilea Plunkett MA [facility]02-07-2025 Miscellaneous Notes* Telephone Encounter - Galilea Plunkett [...] - CONSULT TO NEPHROLOGY. Dr. Mackenzie Iverson, [facility]. George Mata MD * Telephone Encounter [...] placeconsult and will fax all information to [facility] here in day. Patient was given number to call and schedule. Fax number: [phone] * Telephone Encounter - Galilea Plunkett MA - 09/13/2024 8:34 AM EST 1) CKD has worsened to stage 3b. Consider nephrology consult. 2) diabetes controlled. 3) lipids controlled. 4) anemia stable. George Mata MD documented in this encounterFirelands [facility]-2025 Telephone encounter Note * Telephone Encounter - George Mata MD - 09/14/2024 9:48 AM EST ASSESSMENT/PLAN: 1. Controlled type 2 diabetes mellitus with stage 3 chronic kidney disease, without long-term current use of insulin (HCC) - ICD9: 250.40, 585.3, ICD10: E11.22, N18.30 - eGFR: Worsening - CONSULT TO NEPHROLOGY. Dr. Mackenzie Iverson, [facility]. George Mata MD [facility]02-04-2025 Telephone encounter Note* Telephone Encounter - Marva Carroll LPN - 09/13/2024 8:53 AM EST asking to be called when the referral has been faxed. If they do not answer, please leave a detailed message. Marva Carroll LPN [facility]02-04-2025 Telephone encounter Note* Telephone Encounter - Galilea Plunkett MA - 09/13/2024 8:34 AM EST Patient was notified and willing to see nephrology ut would like to remain in day. Please placeconsult and will fax all information to [facility] here in day. Patient was given number to call and schedule. Fax number: [phone] [facility]02-04-2025 Telephone encounter Note* Telephone Encounter - Galilea Plunkett MA - 09/13/2024 8:34 AM EST 1) CKD has worsened to stage 3b. Consider nephrology consult. 2) diabetes controlled. 3) lipids controlled. 4) anemia stable. George Mata MD [facility]01-28-2025 Telephone encounter Note* Telephone Encounter - Jonathan Hawkins [facility] - 09/06/2024 8:20 AM EST [facility] Ambulatory Pharmacy Anticoagulation Clinic Anticoagulation Episode Summary Anticoagulation Care Providers Provider Role Specialty Phone number George Mata MD [facility] Internal Medicine [phone] Bessy Valverde is a 78 year old [...] Pharmacy Anticoagulation Clinic Pharmacy Anticoagulation Clinic Pager: [phone]. [facility]01-28-2025 Miscellaneous Notes* Telephone Encounter - Jonathan Hawkins RPh - 09/06/2024 8:20 AM EST [facility] Ambulatory Pharmacy Anticoagulation Clinic Anticoagulation Episode Summary Anticoagulation Care Providers Provider Role Specialty Phone number Georeg Mata MD [facility] Internal Medicine [phone] Bessy Valverde is a 78 year old [...] Pharmacy Anticoagulation Clinic Pharmacy Anticoagulation Clinic Pager: [phone]. documented in this encounterFirelands [facility]01-14-2025 Telephone encounter Note * Telephone Encounter - Francois Nguyen RN - 08/23/2024 11:11 AM EST [facility], letting pcp know, patient declined [facility]t [facility], stating he found out he had gout, and is doing a lot better now. [facility]01-14-2025 Miscellaneous Notes* Telephone Encounter - Francois Nguyen RN - 08/23/2024 11:11 AM EST [facility], letting pcp know, patient declined [facility]t [facility], stating he found out he had gout, and is doing a lot better now. documented in this encounterFirelands [facility]01-14-2025 Telephone encounter Note * Telephone Encounter - RossJonathan, [facility] - 08/23/2024 8:00 AM EST [facility] Ambulatory Pharmacy Anticoagulation Clinic Anticoagulation Episode Summary Anticoagulation Care Providers Provider Role Specialty Phone number George Mata MD [facility] Internal Medicine [phone] Bessy Valverde is a 78 year old [...] Pharmacy Anticoagulation Clinic Pharmacy Anticoagulation Clinic Pager: [phone]. [facility]01-14-2025 Miscellaneous Notes* Telephone Encounter - Jonathan Hawkins RPh - 08/23/2024 8:00 AM EST [facility] Ambulatory Pharmacy Anticoagulation Clinic Anticoagulation Episode Summary Anticoagulation Care Providers Provider Role Specialty Phone number George Mata MD [facility] Internal Medicine [phone] Bessy Valverde is a 78 year old [...] Pharmacy Anticoagulation Clinic Pharmacy Anticoagulation Clinic Pager: [phone]. documented in this encounterFirelands [facility]01-[facility]-2025 Telephone encounter Note * Telephone Encounter - Jonathan Hawkins RPh - 08/16/2024 9:12 AM EST [facility] Ambulatory Pharmacy Anticoagulation Clinic Anticoagulation Episode Summary Anticoagulation Care Providers Provider Role Specialty Phone number George Mata MD Responsible Internal Medicine [phone] Bessy Valverde is a 78 year old [...] Pharmacy Anticoagulation Clinic Pharmacy Anticoagulation Clinic Pager: [phone]. [facility]01-07-2025 Miscellaneous Notes* Telephone Encounter - Jonathan Hawkins RPh - 08/16/2024 9:12 AM EST [facility] Ambulatory Pharmacy Anticoagulation Clinic Anticoagulation Episode Summary Anticoagulation Care Providers Provider Role Specialty Phone number George Mata MD [facility] Internal Medicine [phone] Bessy Valverde is a 78 year old [...] Pharmacy Anticoagulation Clinic Pharmacy Anticoagulation Clinic Pager: [phone]. * Telephone Encounter - Yessy Walden PSS - 08/16/2024 8:56 AM EST Patient returned the call. Please call the patient at [phone] * Telephone Encounter - Jonathan Hawkins RPh - 08/16/2024 8:40 AM EST The patient was called to discuss recent INR test results. A voice message was left on patient's Home telephone voice mail. The patient was advised to call the Coumadin Clinic at [phone] and hold warfarin today. On prednisone 40 mg daily PT INR (no units) Date Value 11/19/2021 2.7 biotel 11/05/2021 2.5 10/22/2021 2.8 biotel INR Home CoaguChek (no units) Date Value 08/16/2024 3.5 07/19/2024 3.0 07/05/2024 2.8 Jonathan Hawkins PharmD,CACP documented in this encounterFirelands [facility] Medical [facility]01-07-2025 Telephone encounter Note * Telephone Encounter - Yessy Walden PSS - 08/16/2024 8:56 AM EST Patient returned the call. Please call the patient at [phone] [facility]01-07-2025 Telephone encounter Note* Telephone Encounter - Jonathan Hawkins RPh - 08/16/2024 8:40 AM EST The patient was called to discuss recent INR test results. A voice message was left on patient's Home telephone voice mail. The patient was advised to call the Coumadin Clinic at [phone] and hold warfarin today. On prednisone 40 mg daily PT INR (no units) Date Value 11/19/2021 2.7 biotel 11/05/2021 2.5 10/22/2021 2.8 biotel INR Home CoaguChek (no units) Date Value 08/16/2024 3.5 07/19/2024 3.0 07/05/2024 2.8 Jonathan Hawkins PharmD,CACP [facility]01-06-2025 Telephone encounter Note* Telephone Encounter - Galilea Plunkett MA - 08/15/2024 12:48 PM EST Patient notified via voicemail Galilea Plunkett MA [facility]01-06-2025 Miscellaneous Notes* Telephone Encounter - Galilea Plunkett [...] not better. 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 documented in this encounterFirelands [facility] Medical [facility]01-06-2025 Telephone encounter Note * Telephone Encounter - [...] 2 days. Authorizing Provider: GEORGE MATA MD [facility]01-06-2025 Telephone encounter Note* Telephone Encounter - Galilea Plunkett MA - 08/15/2024 10:35 AM EST Patient was notified and is feeling better. Patient will schedule with pulmonary office for follow up. Requesting prednisone taper for gout attack . If ok rx pended and will let patient know Galilea Plunkett MA [facility]01-06-2025 Telephone encounter Note* Telephone Encounter - Galilea Plunkett MA - 08/15/2024 10:33 AM EST ----- Message from George Mata MD sent at 08/13/2024 8:13 PM EST ----- Pulmonary fibrosis, atelectasis, difficult to rule out pneumonia. Schedule follow up if he is not better. 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 Author Type: Physician Type: Progress Notes Filed: 08/10/2024 17:01 Note Text: This note was created using pinion-pinsriter. Subjective Patient presents with: Yearly Exam Bessy [...] to GI side effects. 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) Pvd (Peripheral Vascular Disease) With Claudication (Hcc) PAST SURGICAL HISTORY Procedure Laterality Date AICD, DUAL CHAMBER 10/29/2015 dual lead AICD APPENDECTOMY 1993 [facility] INCL FLUOR GDNCE DX W/CELL WASHG SPX 02/04/2013 BRONCHOSCOPY CARDIAC CATH 12/16/2017 Alex CARDIAC CATH 12/14/2018 Right AND Left COLONOSCOPY AND POLYPECTOMY 04/03/2017 COLONOSCOPY SCREENING 05/06/2021 [facility] COLONOSCOPY W/BIOPSY SINGLE/MULTIPLE 07/26/2010 Diminutive polyp of sigmoid/diverticulosis COLONOSCOPY W/BIOPSY SINGLE/MULTIPLE 09/10/2012 CORONARY ARTERY BYP W/VEIN AND ARTERY GRAFT 4 VEIN 04/29/2007 CABG, quadruple grafts CORONARY ARTERY BYPASS GRAFT CORONARY STENT EA VESSEL 02/12/2018 [facility] RCA EGD 05/06/2021 [facility] EGD TRANSORAL BIOPSY SINGLE/MULTIPLE 09/10/2012 EGD W/ BIOPSY SNGL/MLTPL 04/03/2017 [facility] HEART VALVE REPLACEMENT IMPLANTABLE CARDIOVERTER DEFIBRILLATOR [...] Mother Breast Cancer Mother Heart Father of [place] age 85. CABG 13 yrs. prior Heart [...] status: Never Used Sub (more content not included)...[facility]12-31-2024 History of Present illness Narrative* George [...] to GI side effects. 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) Pvd (Peripheral Vascular Disease) With Claudication (Hcc) PAST SURGICAL HISTORY Procedure Laterality Date AICD, DUAL CHAMBER 10/29/2015 dual lead AICD APPENDECTOMY 1993 [facility] INCL FLUOR GDNCE DX W/CELL WASHG SPX 02/04/2013 BRONCHOSCOPY CARDIAC CATH 12/16/2017 Alex CARDIAC CATH 12/14/2018 Right & Left COLONOSCOPY & POLYPECTOMY 04/03/2017 COLONOSCOPY SCREENING 05/06/2021 [facility] COLONOSCOPY W/BIOPSY SINGLE/MULTIPLE 07/26/2010 Diminutive polyp of sigmoid/diverticulosis COLONOSCOPY W/BIOPSY SINGLE/MULTIPLE 09/10/2012 CORONARY ARTERY BYP W/VEIN & ARTERY GRAFT 4 VEIN 04/29/2007 CABG, quadruple grafts CORONARY ARTERY BYPASS GRAFT CORONARY STENT EA VESSEL 02/12/2018 [facility] RCA EGD 05/06/2021 [facility] EGD TRANSORAL BIOPSY SINGLE/MULTIPLE 09/10/2012 EGD W/ BIOPSY SNGL/MLTPL 04/03/2017 [facility] HEART VALVE REPLACEMENT IMPLANTABLE CARDIOVERTER DEFIBRILLATOR [...] Mother Breast Cancer Mother Heart Father of [place] age 85. CABG 13 yrs. prior Heart [...] on empty stomach, 1/2 hr before meal. twevmygbx-csfadl-gryfpkmf-scop () 16.2-0.1037 -0.0194 mg per tablet Take [...] CONSULT TO PODIATRY. He requested referral to [facility]. 4. Chronic systolic heart [...] ICD9: 564.1, ICD10: K58.9 - Controlled. - AOKJVSFUS-SZYZQPISZ-CLCVMBHE-SCOP 16.2 MG-0.1037 MG-0.0194 MG TABLET 8. Anticoagulated on Coumadin ( home INR testing) - ICD9: V58.61, ICD10: Z79.01 - Monitored. 9. Atherosclerosis of [place] coronary artery of [place] heart without angina pectoris - ICD9: 414.01, ICD10: I25.10 - Stable and followed by [facility]. 10. Essential hypertension - ICD9: 401.9, [...] recommendations. George Mata MD documented in this encounterFirelands [facility]12-[facility]-2024 Telephone encounter Note * Telephone Encounter - Jonathan Hawkins [facility] - 07/19/2024 10:09 AM EST [facility] Ambulatory Pharmacy Anticoagulation Clinic Anticoagulation Episode Summary Anticoagulation Care Providers Provider Role Specialty Phone number George Mata MD [facility] Internal Medicine [phone] Bessy Valverde is a 78 year old [...] Pharmacy Anticoagulation Clinic Pharmacy Anticoagulation Clinic Pager: [phone]. [facility]12-10-2024 Miscellaneous Notes* Telephone Encounter - Jonathan Hawkins RPh - 07/19/2024 10:09 AM EST [facility] Ambulatory Pharmacy Anticoagulation Clinic Anticoagulation Episode Summary Anticoagulation Care Providers Provider Role Specialty Phone number George Mata MD [facility] Internal Medicine [phone] Bessy Valverde is a 78 year old [...] Pharmacy Anticoagulation Clinic Pharmacy Anticoagulation Clinic Pager: [phone]. documented in this encounterFirelands [facility]11-26-2024 Telephone encounter Note * Telephone Encounter - Lian Coulter RP - 07/05/2024 8:45 AM EST [facility] Ambulatory Pharmacy Anticoagulation Clinic Anticoagulation Episode Summary Anticoagulation Care Providers Provider Role Specialty Phone number George Mata MD [facility] Internal Medicine [phone] Bessy Valverde is a 78 year old [...] ALLERGIES No Known Allergies Indication for Warfarin: residential (current) use of anticoagulants Permanent atrial fibrillation [...] Pharmacy Anticoagulation Clinic Pharmacy Anticoagulation Clinic Pager: [phone]. [facility]11-26-2024 Miscellaneous Notes* Telephone Encounter - Lian Coulter, [facility] - 07/05/2024 8:45 AM EST [facility] Ambulatory Pharmacy Anticoagulation Clinic Anticoagulation Episode Summary Anticoagulation Care Providers Provider Role Specialty Phone number George Mata MD Responsible Internal Medicine [phone] Bessy Valverde is a 78 year old [...] ALLERGIES No Known Allergies Indication for Warfarin: residential (current) use of anticoagulants Permanent atrial fibrillation [...] Pharmacy Anticoagulation Clinic Pharmacy Anticoagulation Clinic Pager: [phone]. documented in this encounterFirelands [facility] Medical [facility]11-12-2024 Telephone encounter Note * Telephone Encounter - Jonathan Hawkins RP - 06/21/2024 8:27 AM EST [facility] Ambulatory Pharmacy Anticoagulation Clinic Anticoagulation Episode Summary Anticoagulation Care Providers Provider Role Specialty Phone number George Mata MD [facility] Internal Medicine [phone] Bessy Valverde is a 78 year old [...] Pharmacy Anticoagulation Clinic Pharmacy Anticoagulation Clinic Pager: [phone]. [facility]11-12-2024 Miscellaneous Notes* Telephone Encounter - Jonathan Hawkins RPh - 06/21/2024 8:27 AM EST [facility] Ambulatory Pharmacy Anticoagulation Clinic Anticoagulation Episode Summary Anticoagulation Care Providers Provider Role Specialty Phone number George Mata MD [facility] Internal Medicine [phone] Bessy Valverde is a 78 year old [...] Pharmacy Anticoagulation Clinic Pharmacy Anticoagulation Clinic Pager: [phone]. documented in this encounterFirelands Regional Medical [facility]10-29-2024 Telephone encounter Note * Telephone Encounter - Jonathan Hawkins RPh - 06/07/2024 8:13 AM EDT [facility] Ambulatory Pharmacy Anticoagulation Clinic Anticoagulation Episode Summary Anticoagulation Care Providers Provider Role Specialty Phone number George Mata MD [facility] Internal Medicine [phone] Bessy Valverde is a 78 year old [...] Pharmacy Anticoagulation Clinic Pharmacy Anticoagulation Clinic Pager: [phone]. [facility]10-29-2024 Miscellaneous Notes* Telephone Encounter - Jonathan Hawkins RPh - 06/07/2024 8:13 AM EDT [facility] Ambulatory Pharmacy Anticoagulation Clinic Anticoagulation Episode Summary Anticoagulation Care Providers Provider Role Specialty Phone number George Mata MD [facility] Internal Medicine [phone] Bessy Valverde is a 78 year old [...] Pharmacy Anticoagulation Clinic Pharmacy Anticoagulation Clinic Pager: [phone]. documented in this encounterFirelands [facility]10-15-2024 Telephone encounter Note * Telephone Encounter - Jonathan Hawkins RPh - 05/24/2024 7:59 AM EDT [facility] Ambulatory Pharmacy Anticoagulation Clinic Anticoagulation Episode Summary Anticoagulation Care Providers Provider Role Specialty Phone number George Mata MD [facility] Internal Medicine [phone] Bessy Valverde is a 78 year old [...] Pharmacy Anticoagulation Clinic Pharmacy Anticoagulation Clinic Pager: [phone]. [facility]10-15-2024 Miscellaneous Notes* Telephone Encounter - Jonathan Hawkins RPh - 05/24/2024 7:59 AM EDT [facility] Ambulatory Pharmacy Anticoagulation Clinic Anticoagulation Episode Summary Anticoagulation Care Providers Provider Role Specialty Phone number MataGeorge gerber MD [facility] Internal Medicine [phone] Bessy Valverde is a 78 year old [...] Pharmacy Anticoagulation Clinic Pharmacy Anticoagulation Clinic Pager: [phone]. 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 [facility]10-01-2024 Miscellaneous Notes* Telephone Encounter - Elliott Gleason RPh - 05/10/2024 8:01 AM EDT [facility] Ambulatory Pharmacy Anticoagulation Clinic Anticoagulation Episode Summary Anticoagulation Care Providers Provider Role Specialty Phone number George Mata MD Responsible Internal Medicine [phone] Bessy Valverde is a 78 year old [...] ALLERGIES No Known Allergies Indication for Warfarin: residential (current) use of anticoagulants Permanent atrial fibrillation [...] Patient denies need for refills. Elliott Gleason [facility] Clinical Pharmacist, Pharmacy Anticoagulation Clinic Pharmacy Anticoagulation Clinic Pager: [phone]. documented in this encounterFirelands [facility]09-17-2024 Telephone encounter Note * Telephone Encounter - Lian Coulter [facility] - 04/26/2024 9:33 AM EDT [facility] Ambulatory Pharmacy Anticoagulation Clinic Anticoagulation Episode Summary Anticoagulation Care Providers Provider Role Specialty Phone number George Mata MD Responsible Internal Medicine [phone] Bessy Valverde is a 78 year old [...] ALLERGIES No Known Allergies Indication for Warfarin: residential (current) use of anticoagulants Permanent atrial fibrillation [...] Pharmacy Anticoagulation Clinic Pharmacy Anticoagulation Clinic Pager: [phone]. [facility]09-17-2024 Miscellaneous Notes* Telephone Encounter - Lian Coulter RPh - 04/26/2024 9:33 AM EDT [facility] Ambulatory Pharmacy Anticoagulation Clinic Anticoagulation Episode Summary Anticoagulation Care Providers Provider Role Specialty Phone number George Mata MD [facility] Internal Medicine [phone] Bessy Valverde is a 78 year old [...] ALLERGIES No Known Allergies Indication for Warfarin: residential (current) use of anticoagulants Permanent atrial fibrillation [...] Patient denies need for refills. Lian Coulter [facility] Clinical Pharmacist, Pharmacy Anticoagulation Clinic Pharmacy Anticoagulation Clinic Pager: [phone]. documented in this encounterFirelands [facility]09-[facility] Telephone encounter Note * Telephone Encounter - Lian Coulter RPh - 04/12/2024 8:57 AM EDT [facility] Ambulatory [facility] Clinic Anticoagulation Episode Summary Anticoagulation Care Providers Provider Role Specialty Phone number George Mata MD [facility] Internal Medicine [phone] Bessy Valverde is a 78 year old [...] ALLERGIES No Known Allergies Indication for Warfarin: residential (current) use of anticoagulants Permanent atrial fibrillation [...] Pharmacy Anticoagulation Clinic Pharmacy Anticoagulation Clinic Pager: [phone]. [facility]09-03-2024 Miscellaneous Notes* Telephone Encounter - Lian Coulter RPh - 04/12/2024 8:57 AM EDT [facility] Ambulatory Pharmacy Anticoagulation Clinic Anticoagulation Episode Summary Anticoagulation Care Providers Provider Role Specialty Phone number George Mata MD [facility] Internal Medicine [phone] Bessy Valverde is a 78 year old [...] ALLERGIES No Known Allergies Indication for Warfarin: residential (current) use of anticoagulants Permanent atrial fibrillation [...] Patient denies need for refills. Lian Coulter [facility] Clinical Pharmacist, Pharmacy Anticoagulation Clinic Pharmacy Anticoagulation Clinic Pager: [phone]. documented in this encounterFirelands [facility]08-20-2024 Telephone encounter Note * Telephone Encounter - Jonathan Hawkins RPh - 03/29/2024 7:56 AM EDT [facility] Ambulatory [facility] An[facility] Clinic Anticoagulation Episode Summary Anticoagulation Care Providers Provider Role Specialty Phone number George Mata MD Responsible Internal Medicine [phone] Bessy Valverde is a 78 year old [...] Pharmacy Anticoagulation Clinic Pharmacy Anticoagulation Clinic Pager: [phone]. [facility]08-20-2024 Miscellaneous Notes* Telephone Encounter - Jonathan Hawkins RPh - 03/29/2024 7:56 AM EDT [facility] Ambulatory Pharmacy Anticoagulation Clinic Anticoagulation Episode Summary Anticoagulation Care Providers Provider Role Specialty Phone number George Mata MD Responsible Internal Medicine [phone] Bessy Valverde is a 78 year old [...] Pharmacy Anticoagulation Clinic Pharmacy Anticoagulation Clinic Pager: [phone]. documented in this encounterFirelands [facility]08-07-2024 Telephone encounter Note * Telephone Encounter - [...] Ceja LPN March 16, 2024 3:34 PM [facility]08-07-2024 Miscellaneous Notes* Telephone Encounter - Malu Ceja [...] 16, 2024 3:34 PM documented in this encounterFirelands [facility]08-06-2024 Telephone encounter Note * Telephone Encounter - Jordyn Garcia [facility] - 03/15/2024 8:01 AM EDT [facility] Ambulatory Pharmacy Anticoagulation Clinic Anticoagulation Episode Summary Anticoagulation Care Providers Provider Role Specialty Phone number George Mata MD Responsible Internal Medicine [phone] Bessy Valverde is a 78 year old [...] Pharmacy Anticoagulation Clinic Pharmacy Anticoagulation Clinic Pager: [phone]. [facility]08-06-2024 Miscellaneous Notes* Telephone Encounter - Jordyn Garcia RPh - 03/15/2024 8:01 AM EDT [facility] Ambulatory Pharmacy Anticoagulation Clinic Anticoagulation Episode Summary Anticoagulation Care Providers Provider Role Specialty Phone number George Mata MD [facility] Internal Medicine [phone] Bessy Valverde is a 78 year old [...] Pharmacy Anticoagulation Clinic Pharmacy Anticoagulation Clinic Pager: [phone]. documented in this encounterFirelands [facility]07-31-2024 NoteHNO ID: [id number] Author: GEORGE MATA MD Service: ? Author Type: Physician Type: Progress Notes Filed: 03/09/2024 15:38 Note Text: This note was created using pinion-pinsriter. Subjective Bessy Valverde is a 78 year old male. He scraped his left arm 1.5 weeks ago, and sustained a skin tear. There was oozing so he applied a bandage over the weekend that has dried up and adhered. His asthma was worsening as it typically did when ragweed was up. Diabetes was increasing. 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 Review of Systems Constitutional: Negative for [...] Valve Stenosis Chronic Systolic Heart Failure (Hcc) Care Home (Current) Use of Anticoagulants Gout of Foot [...] on empty stomach, 1/2 hr before meal. mvwchloqp-nsloil-khqfseeg-scop () 16.2-0.1037 -0.0194 mg per tablet Take [...] 30 mmol/L 24 An (more content not included)...[facility]07-31-2024 History of Present illness Narrative* George Mata MD - 03/09/2024 3:05 PM EDT This note was created using Trading [employer]. Subjective Bessy Valverde is a 78 year old male. He scraped his left arm 1.5 weeks ago, and sustained a skin tear. There was oozing so he applied a bandage over the weekend that has dried up and adhered. His asthma was worsening as it typically did when ragweed was up. Diabetes was increasing. 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 yigrhxxwc-rctxke-foimwwaq-scop () 16.2-0.1037 -0.0194 mg per tablet Take [...] Mental Status: He is alert. Latest Ref [facility] 01/25/2024 Protein, Total 6.3 - 8.0 g/dL [...] - COMPREHENSIVE METABOLIC PANEL 3. Atherosclerosis of [place] coronary artery of [place] heart without angina pectoris - ICD9: 414.01, [...] SCREENING George Mata MD documented in this encounterFirelands [facility]07-30-2024 Telephone encounter Note * Telephone Encounter - Jonathan Hawkins, [facility] - 03/08/2024 7:51 AM EDT [facility] Ambulatory Pharmacy Anticoagulation Clinic Anticoagulation Episode Summary Anticoagulation Care Providers Provider Role Specialty Phone number George Mata MD [facility] Internal Medicine [phone] Bessy Valverde is a 78 year old [...] Pharmacy Anticoagulation Clinic Pharmacy Anticoagulation Clinic Pager: [phone]. [facility]07-30-2024 Miscellaneous Notes* Telephone Encounter - Jonathan Hawkins RPh - 03/08/2024 7:51 AM EDT [facility] Ambulatory Pharmacy Anticoagulation Clinic Anticoagulation Episode Summary Anticoagulation Care Providers Provider Role Specialty Phone number George Mata MD [facility] Internal Medicine [phone] Bessy Valverde is a 78 year old [...] Pharmacy Anticoagulation Clinic Pharmacy Anticoagulation Clinic Pager: [phone]. documented in this encounterFirelands [facility]07-23-2024 Telephone encounter Note * Telephone Encounter - Jonathan Hawkins RPh - 03/01/2024 10:46 AM EDT [facility] Ambulatory Pharmacy Anticoagulation Clinic Anticoagulation Episode Summary Anticoagulation Care Providers Provider Role Specialty Phone number George Mata MD Responsible Internal Medicine [phone] Bessy Valverde is a 78 year old [...] Pharmacy Anticoagulation Clinic Pharmacy Anticoagulation Clinic Pager: [phone]. [facility]07-23-2024 Miscellaneous Notes* Telephone Encounter - Jonathan Hawkins RPh - 03/01/2024 10:46 AM EDT [facility] Ambulatory Pharmacy Anticoagulation Clinic Anticoagulation Episode Summary Anticoagulation Care Providers Provider Role Specialty Phone number George Mata MD Responsible Internal Medicine [phone] Bessy Valverde is a 78 year old [...] Pharmacy Anticoagulation Clinic Pharmacy Anticoagulation Clinic Pager: [phone]. 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 Gladys Cid LPN * [...] 02, 2024 8:12 AM documented in this encounterFirelands [facility]06-25-2024 Telephone encounter Note * Telephone Encounter - Paola Blue APRN.CNP - 02/02/2024 9:18 AM EDT Patient due for follow-up Paola Blue APRN.CNP [facility]06-25-2024 Telephone encounter Note* Telephone Encounter - Yin Hernandez RN - [...] Hernandez RN February 02, 2024 8:12 AM [facility]06-25-2024 Telephone encounter Note* Telephone Encounter - Jonathan Hawkins [facility] - 02/02/2024 7:48 AM EDT [facility] Ambulatory Pharmacy Anticoagulation Clinic Anticoagulation Episode Summary Anticoagulation Care Providers Provider Role Specialty Phone number George Mata MD [facility] Internal Medicine [phone] Bessy Valverde is a 78 year old [...] Pharmacy Anticoagulation Clinic Pharmacy Anticoagulation Clinic Pager: [phone]. [facility]06-25-2024 Miscellaneous Notes* Telephone Encounter - Jonathan Hawkins RPh - 02/02/2024 7:48 AM EDT [facility] Ambulatory Pharmacy Anticoagulation Clinic Anticoagulation Episode Summary Anticoagulation Care Providers Provider Role Specialty Phone number George Mata MD [facility] Internal Medicine [phone] Bessy Valverde is a 78 year old [...] Pharmacy Anticoagulation Clinic Pharmacy Anticoagulation Clinic Pager: [phone]. documented in this encounterCleveland [id number] Telephone encounter Note * Telephone Encounter - Jonathan Hawkins, [facility] - 01/19/2024 12:42 PM EDT [facility] Ambulatory Pharmacy Anticoagulation Clinic Anticoagulation Episode Summary Anticoagulation Care Providers Provider Role Specialty Phone number George Mata MD Responsible Internal Medicine [phone] Bessy Valverde is a 78 year old [...] Pharmacy Anticoagulation Clinic Pharmacy Anticoagulation Clinic Pager: [phone]. [facility]06-11-2024 Miscellaneous Notes* Telephone Encounter - Jonathan Hawkins RPh - 01/19/2024 12:42 PM EDT [facility] Ambulatory Pharmacy Anticoagulation Clinic Anticoagulation Episode Summary Anticoagulation Care Providers Provider Role Specialty Phone number George Mata MD Responsible Internal Medicine [phone] Bessy Valverde is a 78 year old [...] Pharmacy Anticoagulation Clinic Pharmacy Anticoagulation Clinic Pager: [phone]. documented in this encounterFirelands [facility]05-28-2024 Telephone encounter Note * Telephone Encounter - Jonathan Hawkins RPh - 01/05/2024 8:01 AM EDT [facility] Ambulatory Pharmacy Anticoagulation Clinic Anticoagulation Episode Summary Anticoagulation Care Providers Provider Role Specialty Phone number George Mata MD [facility] Internal Medicine [phone] Bessy Valverde is a 78 year old [...] Pharmacy Anticoagulation Clinic Pharmacy Anticoagulation Clinic Pager: [phone]. [facility]05-28-2024 Miscellaneous Notes* Telephone Encounter - Jonathan Hawkins RPh - 01/05/2024 8:01 AM EDT [facility] Ambulatory Pharmacy Anticoagulation Clinic Anticoagulation Episode Summary Anticoagulation Care Providers Provider Role Specialty Phone number MataGeorge gerber MD Responsible Internal Medicine [phone] Bessy Valverde is a 78 year old [...] Pharmacy Anticoagulation Clinic Pharmacy Anticoagulation Clinic Pager: [phone]. documented in this encounterFirelands [facility]05-14-2024 Telephone encounter Note * Telephone Encounter - Jonathan Hawkins RPh - 12/22/2023 8:08 AM EDT [facility] Ambulatory Pharmacy Anticoagulation Clinic Anticoagulation Episode Summary Anticoagulation Care Providers Provider Role Specialty Phone number George Mata MD Responsible Internal Medicine [phone] Bessy Valverde is a 78 year old [...] Pharmacy Anticoagulation Clinic Pharmacy Anticoagulation Clinic Pager: [phone]. [facility]05-14-2024 Miscellaneous Notes* Telephone Encounter - Jonathan Hawkins RPh - 12/22/2023 8:08 AM EDT [facility] Ambulatory Pharmacy Anticoagulation Clinic Anticoagulation Episode Summary Anticoagulation Care Providers Provider Role Specialty Phone number George Mata MD Responsible Internal Medicine [phone] Bessy Valverde is a 78 year old [...] Pharmacy Anticoagulation Clinic Pharmacy Anticoagulation Clinic Pager: [phone]. 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 Jonathan Hawkins [facility] Clinical Pharmacist, Pharmacy Anticoagulation Clinic Pharmacy Anticoagulation Clinic Pager: [phone]. 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 Lian Coulter [facility] Clinical Pharmacist, Pharmacy Anticoagulation Clinic Pharmacy Anticoagulation Clinic Pager: [phone]. 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 * Telephone Encounter - Zenobia (Gerontology Aide)Yin - 11/13/2023 9:51 AM EDT PATIENT CALL [...] 7 days. Spouse can be reached at [phone]. PT INR (no units) Date Value 11/19/2021 2.7 biotel 11/05/2021 2.5 10/22/2021 2.8 biotel INR Home CoaguChek (no units) Date Value 11/13/2023 3.4 11/10/2023 3.2 10/27/2023 2.8 Yin Fregoso (LOANZ) documented in this encounterFirelands [facility]04-02-2024 Instructions* Patient Instructions* George Mata MD - 11/10/2023 12:11 PM EDT RECHECK YOUR COUMADIN LEVEL IN 3 DAYS. documented in this encounterFirelands Regional Medical [facility]04-02-2024 History of Present illness Narrative* George Mata MD - 11/10/2023 11:57 AM EDT This note was created using Mahaloter. Subjective Bessy Valverde is a 77 year [...] Valve Stenosis Chronic Systolic Heart Failure (Hcc) Care Home (Current) Use of Anticoagulants Gout of Foot [...] on empty stomach, 1/2 hr before meal. mwqdjebww-adcacy-usvgauwz-scop () 16.2-0.1037 -0.0194 mg per tablet Take [...] drainage. George Mata MD documented in this encounterFirelands [facility]04-02-2024 Miscellaneous Notes* Telephone Encounter - Jonathan Hawkins [facility] - 11/10/2023 8:15 AM EDT [facility] Ambulatory Pharmacy Anticoagulation Clinic Anticoagulation Episode Summary Anticoagulation Care Providers Provider Role Specialty Phone number George Mata MD [facility] Internal Medicine [phone] Bessy Valverde is a 77 year old [...] verbalizes understanding of the plan. Jonathan Hawkins [facility] Clinical Pharmacist, Pharmacy Anticoagulation Clinic Pharmacy Anticoagulation Clinic Pager: [phone]. documented in this encounterFirelands [facility]03-19-2024 Miscellaneous Notes* Telephone Encounter - Jonathan Hawkins RPh - 10/27/2023 11:18 AM EDT [facility] Ambulatory Pharmacy Anticoagulation Clinic Anticoagulation Episode Summary Anticoagulation Care Providers Provider Role Specialty Phone number George Mata MD [facility] Internal Medicine [phone] Bessy Valverde is a 77 year old [...] Pharmacy Anticoagulation Clinic Pharmacy Anticoagulation Clinic Pager: [phone]. documented in this encounterFirelands [facility]03-05-2024 Miscellaneous Notes* Telephone Encounter - Jonathan Hawkins RPh - 10/13/2023 7:48 AM EST [facility] Ambulatory Pharmacy Anticoagulation Clinic Anticoagulation Episode Summary Anticoagulation Care Providers Provider Role Specialty Phone number George Mata MD [facility] Internal Medicine [phone] Bessy Valverde is a 77 year old [...] Pharmacy Anticoagulation Clinic Pharmacy Anticoagulation Clinic Pager: [phone]. documented in this encounterFirelands [facility]02-20-2024 Miscellaneous Notes* Telephone Encounter - Jonathan Hawkins RPh - 09/29/2023 8:01 AM EST [facility] Ambulatory Pharmacy Anticoagulation Clinic Anticoagulation Episode Summary Anticoagulation Care Providers Provider Role Specialty Phone number George Mata MD Responsible Internal Medicine [phone] Bessy Valverde is a 77 year old [...] Pharmacy Anticoagulation Clinic Pharmacy Anticoagulation Clinic Pager: [phone]. 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 documented in this encounterFirelands [facility]11-28-2023 Miscellaneous Notes* Telephone Encounter - Jonathan Hawkins RPh - 07/07/2023 7:53 AM EST [facility] Ambulatory Pharmacy Anticoagulation Clinic Anticoagulation Episode Summary Anticoagulation Care Providers Provider Role Specialty Phone number George Mata MD [facility] Internal Medicine [phone] Bessy Valverde is a 77 year old [...] Pharmacy Anticoagulation Clinic Pharmacy Anticoagulation Clinic Pager: [phone]. 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 documented in this encounterFirelands [facility]10-31-2023 Miscellaneous Notes* Telephone Encounter - Jonathan Hawkins RPh - 06/09/2023 8:25 AM EDT [facility] Ambulatory Pharmacy Anticoagulation Clinic Anticoagulation Episode Summary Anticoagulation Care Providers Provider Role Specialty Phone number George Mata MD Responsible Internal Medicine [phone] Bessy Valverde is a 77 year old [...] Pharmacy Anticoagulation Clinic Pharmacy Anticoagulation Clinic Pager: [phone]. documented in this encounterFirelands Regional Medical [facility]10-09-2023 Miscellaneous Notes* Telephone Encounter - Daphney Obando [...] Daphney Obando LPN * Telephone Encounter - Chantel Soriano - 05/18/2023 9:00 AM EDT Patient [...] notify patient. Chantel Dominguez documented in this encounterFirelands [facility]09-05-2023 Miscellaneous Notes* Telephone Encounter - Jonathan Hawkins [facility] - 04/14/2023 7:49 AM EDT [facility] Clinic Anticoagulation Episode Summary Anticoagulation Care Providers Provider Role Specialty Phone number George Mata MD Responsible Internal Medicine [phone] Bessy Valverde is a 77 year old [...] Pharmacy Anticoagulation Clinic Pharmacy Anticoagulation Clinic Pager: [phone]. documented in this encounterFirelands Regional Medical [facility] Campus08-22-2023 Miscellaneous Notes* Telephone Encounter - Jonathan Hawkins RPh - 03/31/2023 7:59 AM EDT [facility] Clinic Anticoagulation Episode Summary Anticoagulation Care Providers Provider Role Specialty Phone number George Mata MD Responsible Internal Medicine [phone] Bessy Valverde is a 77 year old [...] Pharmacy Anticoagulation Clinic Pharmacy Anticoagulation Clinic Pager: [phone]. documented in this encounterFirelands Regional Medical [facility] Campus08-08-2023 Miscellaneous Notes* Telephone Encounter - Jonathan Hawkins RPh - 03/17/2023 8:05 AM EDT [facility] Clinic Anticoagulation Episode Summary Anticoagulation Care Providers Provider Role Specialty Phone number George Mata MD [facility] Internal Medicine [phone] Bessy Valverde is a 77 year old [...] Pharmacy Anticoagulation Clinic Pharmacy Anticoagulation Clinic Pager: [phone]. documented in this encounterFirelands Regional Medical Center South Campus07-27-2023 Miscellaneous Notes* Telephone Encounter - Shruthi Osborne MA - 03/05/2023 7:19 PM EDT Confirmed with pharmacy received RX. Attempted to contact patient. Unable to reach. Left detailed message on VM. Shruthi Osborne MA * Telephone Encounter - George Mata MD - 03/05/2023 5:12 PM EDT Patient's request for medication is as follows Requested Prescriptions Signed Prescriptions Disp Refills veyvcydnk-hafckb-xyrjcqhq-scop () 16.2-0.1037 -0.0194 mg per tablet 240 [...] the Rx. Please advise. documented in this encounterFirelands Regional Medical [facility]07-11-2023 Miscellaneous Notes* Telephone Encounter - Jonathan Hawkins RPh - 02/17/2023 9:24 AM EDT [facility] An[facility] Clinic Anticoagulation Episode Summary Anticoagulation Care Providers Provider Role Specialty Phone number George Mata MD [facility] Internal Medicine [phone] Bessy Valverde is a 77 year old [...] Pharmacy Anticoagulation Clinic Pharmacy Anticoagulation Clinic Pager: [phone]. documented in this encounterFirelands Regional Medical Center [facility] Campus06-27-2023 Miscellaneous Notes* Telephone Encounter - Lian Coulter RPh - 02/03/2023 7:37 AM EDT [facility] Anticoagulation Clinic Anticoagulation Episode Summary Anticoagulation Care Providers Provider Role Specialty Phone number George Mata MD [facility] Internal Medicine [phone] Bessy Valverde is a 77 year old [...] Indication for Warfarin: Permanent atrial fibrillation (hcc) residential (current) use of anticoagulants Anticoagulation Episode Summary [...] Patient denies need for refills. Lian Coulter [facility] Clinical Pharmacist, Pharmacy Anticoagulation Clinic Pharmacy Anticoagulation Clinic Pager: [phone]. documented in this [facility]06-21-2023 Miscellaneous Notes* Telephone Encounter - Daphney Obando LPN - 01/28/2023 1:03 PM EDT Below results left on identified vm. Daphney Obando LPN * Telephone Encounter - Daphney Obando LPN - 01/28/2023 1:01 PM EDT ----- Message from George Mata MD sent at 01/28/2023 12:58 PM EDT ----- Diabetes controlled. CKD stable. .Continue current treatments. documented in this [facility]06-16-2023 Instructions* Patient Instructions* George Mata MD - 01/23/2023 9:29 AM EDT BLOOD WORK TODAY. FASTING BLOOD WORK AND URINE TEST IN July. documented in this [facility]06-16-2023 History of Present illness Narrative* George Mata MD - 01/23/2023 9:16 AM EDT This note was created using pinion-pinsriter. Subjective Bessy Valverde is a 77 year old male. He just saw his data migration consultant and had a good report. No medication [...] Chronic Systolic Heart Failure (Hcc) Other Insomnia Care Home (Current) Use of Anticoagulants Acute Gout of [...] daily, depending on weight gain, fluid retention. osqwlrmuf-jptbsu-ummniqve-scop () 16.2-0.1037 -0.0194 mg per tablet Take [...] Controlled. George Mata MD documented in this encounterFirelands Regional Medical [facility]05-30-2023 Miscellaneous Notes* Telephone Encounter - Jonathan Hawkins [facility] - 01/06/2023 9:40 AM EDT [facility] Ambulatory Pharmacy Anticoagulation Clinic Anticoagulation Episode Summary Anticoagulation Care Providers Provider Role Specialty Phone number George Mata MD Responsible Internal Medicine [phone] Bessy Valverde is a 77 year old [...] Pharmacy Anticoagulation Clinic Pharmacy Anticoagulation Clinic Pager: [phone]. documented in this encounterFirelands Regional Medical [facility] Campus05-16-2023 Miscellaneous Notes* Telephone Encounter - Jordyn Garcia RPh - 12/23/2022 9:05 AM EDT [facility] Ambulatory Pharmacy Anticoagulation Clinic Anticoagulation Episode Summary Anticoagulation Care Providers Provider Role Specialty Phone number George Mata MD Responsible Internal Medicine [phone] Bessy Valverde is a 77 year old [...] Patient denies need for refills. Jordyn Garcia [facility] Clinical Pharmacist, Pharmacy Anticoagulation Clinic Pharmacy Anticoagulation Clinic Pager: [phone]. documented in this encounterFirelands Regional Medical Center [facility] Campus05-02-2023 Miscellaneous Notes* Telephone Encounter - Jonathan Hawkins RPh - 12/09/2022 9:00 AM EDT [facility] Ambulatory Pharmacy Anticoagulation Clinic Anticoagulation Episode Summary Anticoagulation Care Providers Provider Role Specialty Phone number George Mata MD Responsible Internal Medicine [phone] Bessy Valvrede is a 76 year old year old [...] Pharmacy Anticoagulation Clinic Pharmacy Anticoagulation Clinic Pager: [phone]. documented in this encounterFirelands Regional Medical Center [facility]03-21-2023 Miscellaneous Notes* Telephone Encounter - Jonathan Hawkins RPh - 10/28/2022 8:12 AM EDT [facility] Ambulatory Pharm[facility] Anticoagulation Clinic Anticoagulation Episode Summary Anticoagulation Care Providers Provider Role Specialty Phone number George Mata MD [facility] Internal Medicine [phone] Bessy Valverde is a 76 year old [...] Pharmacy Anticoagulation Clinic Pharmacy Anticoagulation Clinic Pager: [phone]. documented in this encounterFirelands Regional Medical Center [facility]02-21-2023 Miscellaneous Notes* Telephone Encounter - Jonathan Hawkins RPh - 09/30/2022 8:05 AM EST [facility] Ambulatory [facility] Anticoagulation Clinic Anticoagulation Episode Summary Anticoagulation Care Providers Provider Role Specialty Phone number George Mata MD [facility] Internal Medicine [phone] Bessy Valverde is a 76 year old [...] Pharmacy Anticoagulation Clinic Pharmacy Anticoagulation Clinic Pager: [phone]. documented in this encounterCleveland [id number] Miscellaneous Notes* Telephone Encounter - Jonathan Hawkins, [facility] - 09/16/2022 8:55 AM EST [facility] Amb[facility] Anticoagulation Clinic Anticoagulation Episode Summary Anticoagulation Care Providers Provider Role Specialty Phone number George Mata MD Responsible Internal Medicine [phone] Bessy Valverde is a 76 year old [...] Pharmacy Anticoagulation Clinic Pharmacy Anticoagulation Clinic Pager: [phone]. documented in this encounterFirelands Regional Medical [facility]01-24-2023 Miscellaneous Notes* Telephone Encounter - Jonathan Hawkins RPh - 09/02/2022 8:38 AM EST [facility] Ambulatory Pharmacy Anticoagulation Clinic Anticoagulation Episode Summary Anticoagulation Care Providers Provider Role Specialty Phone number George Mata MD [facility] Internal Medicine [phone] Bessy Valverde is a 76 year old [...] Pharmacy Anticoagulation Clinic Pharmacy Anticoagulation Clinic Pager: [phone]. documented in this encounterFirelands Regional Medical Center [facility] Campus01-16-2023 Miscellaneous Notes* Telephone Encounter - Daphney Obando LPN - 08/25/2022 12:36 PM EST Reports faxed to below. Daphney Obando LPN * Telephone Encounter - Bety Vigil - 08/22/2022 3:43 PM EST Called patient to schedule with Vascular and patient prefers to have his test results from the [facility] that was done here on 08-12-22 faxed to Brionna Gant / his [employer] [place] office; [address] [place] [address] Telephone encounter routed to Dr. Mata office. [...] consult or discuss this issues with his data migration consultant. * Telephone Encounter - Susi Jang RN - 08/20/2022 11:29 AM EST Pt asking if PCP would advise on arterial study results from 08/12/22. Thank you. documented in this encounterFirelands Regional Medical Center [facility] Campus01-13-2023 Miscellaneous Notes* Telephone Encounter - Bety Vigil - 08/22/2022 3:27 PM EST Called patient to schedule with Vascular and patient prefers to have his test results from the [facility] that was done here on 08-12-22 faxed to Brionna Gant / his [employer] office; [address] [place] [address] Bety Vigil documented in this encounterFirelands Regional Medical [facility]01-10-2023 Miscellaneous Notes* Telephone Encounter - Jonathan Hawkins, [facility] - 08/19/2022 7:32 AM EST [facility] Ambulatory Pharmacy Anticoagulation Clinic Anticoagulation Episode Summary Anticoagulation Care Providers Provider Role Specialty Phone number George Mata MD Responsible Internal Medicine [phone] Bessy Valverde is a 76 year old [...] verbalizes understanding of the plan. Jonathan Hawkins [facility] Clinical Pharmacist, Pharmacy Anticoagulation Clinic Pharmacy Anticoagulation Clinic Pager: [phone]. documented in this encounterFirelands Regional Medical Center [facility] Campus12-27-2022 Miscellaneous Notes* Telephone Encounter - Heriberto Lopes [...] gout; not on current med list. [facility] [place] Please advise him at [phone] if/when approved. documented in this encounterFirelands Regional Medical Center [facility]12-27-2022 Miscellaneous Notes* Telephone Encounter - Jordyn Garcia RPh - 08/05/2022 10:48 AM EST [facility] Ambulatory [facility] Anticoagulation Clinic Anticoagulation Episode Summary Anticoagulation Care Providers Provider Role Specialty Phone number George Mata MD [facility] Internal Medicine [phone] Bessy Valverde is a 76 year old [...] Patient denies need for refills. Jordyn Garcia [facility] Clinical Pharmacist, Pharmacy Anticoagulation Clinic Pharmacy Anticoagulation Clinic Pager: [phone]. documented in this [facility]12-17-2022 Miscellaneous Notes* Telephone Encounter - Daphney Obando LPN - 07/26/2022 10:34 AM EST notified of below results. Daphney Obando LPN * Telephone Encounter - Daphney Obando LPN - 07/26/2022 10:33 AM EST ----- Message from George Mata MD sent at 07/26/2022 10:14 AM EST ----- Test results are okay. DM and lipids controlled. Stable kidney disease. documented in this [facility]12-15-2022 Instructions* Patient Instructions* George Mata MD - 07/24/2022 1:52 PM EST Have you ever planned for future healthcare decisions with a power of civil attorney, living will, or advance directives? Yes. Have you shared those records with your doctor? No and No. Please bring a copyto your next appointment or email to [email or web address] documented in this [facility]12-15-2022 History of Present illness Narrative* eGorge Mata MD - 07/24/2022 1:22 PM EST This note was created using pinion-pinsriter. 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 Pure hypercholesterolemia Status post implantation of automatic cardioverter/defibrillator (AICD) 06/17/2013 Status post mitral valve replacement 06/17/2013 Unspecified cardiovascular disease Unspecified essential hypertension Ventricular tachycardia 06/17/2013 PAST SURGICAL HISTORY Procedure Laterality Date AICD, DUAL CHAMBER 10/29/2015 dual lead AICD APPENDECTOMY 1993 [facility] INCL FLUOR GDNCE DX W/CELL WASHG [...] VESSEL 02/12/2018 [facility] RCA EGD 05/06/2021 [facility] EGD TRANSORAL BIOPSY SINGLE/MULTIPLE 09/10/2012 EGD W/ BIOPSY SNGL/MLTPL 04/03/2017 [facility] HEART VALVE REPLACEMENT IMPLANTABLE CARDIOVERTER DEFIBRILLATOR [...] COVID-19 original vaccine, age 12+ yr, monovalent ([facility] FRANCIS TOP) 08/22/2021 01/22/2022 COVID-19 original vaccine, age 12+ yr, monovalent ([facility] - PURPLE TOP) 10/11/2020 11/01/2020 Influenza Seasonal [...] Known Allergies Current Outpatient Medications Medication Sig csigczvvg-lximro-bazvltej-scop () 16.2-0.1037 -0.0194 mg per tablet Take [...] J84.9 Stable. Seeing pulmonary. 6. Atherosclerosis of [place] coronary artery of [place] heart without angina pectoris - ICD9: 414.01, [...] needed. George Mata MD documented in this encounterFirelands Regional Medical Center [facility]12-13-2022 Miscellaneous Notes* Telephone Encounter - Jonathan Hawkins [facility] - 07/22/2022 7:49 AM EST [facility] Ambulatory Pharmacy Anticoagulation Clinic Anticoagulation Episode Summary Anticoagulation Care Providers Provider Role Specialty Phone number George Mata MD Responsible Internal Medicine [phone] Bessy Valverde is a 76 year old [...] Pharmacy Anticoagulation Clinic Pharmacy Anticoagulation Clinic Pager: [phone]. documented in this encounterFirelands Regional Medical Center [facility]11-15-2022 Miscellaneous Notes* Telephone Encounter - Jonathan Hawkins RPh - 06/24/2022 9:15 AM EST [facility] Ambulatory Pharmacy Anticoagulation Clinic Anticoagulation Episode Summary Anticoagulation Care Providers Provider Role Specialty Phone number George Mata MD Responsible Internal Medicine [phone] Bessy Valverde is a 76 year old [...] Pharmacy Anticoagulation Clinic Pharmacy Anticoagulation Clinic Pager: [phone]. documented in this encounterFirelands Regional Medical Center [facility]11-11-2022 Miscellaneous Notes* Telephone Encounter - Paola Young [...] refill(s): Requested Prescriptions Pending Prescriptions Disp Refills kpivcdfrz-sbxrak-llkflxxb-scop () 16.2-0.1037 -0.0194 mg per tablet 240 [...] LPN * Telephone Encounter - Rosalia Murdock [facility] - 06/19/2022 1:16 PM EST Patient has been identified by name and date of : Yes Last office visit in this department: 01/22/2022 RX INSTRUCTIONS: Patient aware RX escripted to mail away pharmacy. No need to notify patient. Patient phones requesting refills as follows: Requested Prescriptions Pending Prescriptions Disp Refills kxqhjidts-khymuy-jnouyslu-scop () 16.2-0.1037 -0.0194 mg per tablet 240 tablet 0 Sig: Take 1 tablet by mouth every 6 hours as needed. Please review and advise. 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 documented in this encounterFirelands Regional Medical [facility]10-18-2022 Miscellaneous Notes* Telephone Encounter - Lian Coulter RPh - 05/27/2022 8:22 AM EDT [facility] Ambulatory Pharmacy Anticoagulation Clinic Anticoagulation Episode Summary Anticoagulation Care Providers Provider Role Specialty Phone number George Mata MD Responsible Internal Medicine [phone] Bessy Valverde is a 76 year old [...] Indication for Warfarin: Permanent atrial fibrillation (hcc) residential (current) use of anticoagulants Anticoagulation Episode Summary [...] Pharmacy Anticoagulation Clinic Pharmacy Anticoagulation Clinic Pager: [phone]. 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 She said she will just have watch his diet more closely.She understands what the MECHANICAL MAINTENANCE WORKER said about the prednisone. * Telephone Encounter [...] feet are bothering him from gout. Requesting [facility] Pharmacy in [place]. Please call with update. Thank you. PH: [phone]. documented in this encounterFirelands Regional Medical [facility]10-05-2022 Miscellaneous Notes* Telephone Encounter - Zuleyma Brown [...] notify patient. 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 Jonathan Hawkins [facility] Clinical Pharmacist, Pharmacy Anticoagulation Clinic Pharmacy Anticoagulation Clinic Pager: [phone]. documented in this encounterFirelands Regional Medical [facility]09-20-2022 Miscellaneous Notes* Telephone Encounter - Jonathan Hawkins RPh - 04/29/2022 9:21 AM EDT [facility] Ambulatory Pharmacy Anticoagulation Clinic Anticoagulation Episode Summary Anticoagulation Care Providers Provider Role Specialty Phone number George Mata MD Responsible Internal Medicine [phone] Bessy Valverde is a 76 year old [...] Pharmacy Anticoagulation Clinic Pharmacy Anticoagulation Clinic Pager: [phone]. documented in this encounterFirelands Regional Medical Center [facility]09-12-2022 Miscellaneous Notes* Telephone Encounter - Catrachito Maurer [...] asking for prednisone order be sent to [facility]. Order pended. Dr. Mata and OCTAVIO both out today. Sending to on-call per request. Please review and advise, Lisbet Downs RN documented in this encounterFirelands Regional Medical Center [facility]08-23-2022 Miscellaneous Notes* Telephone Encounter - Jonathan Hawkins RPh - 04/01/2022 7:58 AM EDT [facility] Ambulatory Pharmacy Anticoagulation Clinic Anticoagulation Episode Summary Anticoagulation Care Providers Provider Role Specialty Phone number George Mata MD Responsible Internal Medicine [phone] Bessy Valevrde is a 76 year old year old [...] Pharmacy Anticoagulation Clinic Pharmacy Anticoagulation Clinic Pager: [phone]. documented in this encounterFirelands Regional Medical [facility]08-09-2022 Miscellaneous Notes* Telephone Encounter - Jonathan Hawkins RPh - 03/18/2022 10:05 AM EDT [facility] Ambulatory Pharmacy Anticoagulation Clinic Anticoagulation Episode Summary Anticoagulation Care Providers Provider Role Specialty Phone number George Mata MD Responsible Internal Medicine [phone] Bessy Valverde is a 76 year old [...] Pharmacy Anticoagulation Clinic Pharmacy Anticoagulation Clinic Pager: [phone]. documented in this encounterFirelands Regional Medical [facility]07-26-2022 Miscellaneous Notes* Telephone Encounter - Jordyn Garcia, [facility] - 03/04/2022 8:34 AM EDT [facility] Ambulatory Pharmacy Anticoagulation Clinic Anticoagulation Episode Summary Anticoagulation Care Providers Provider Role Specialty Phone number George Mata MD Responsible Internal Medicine [phone] Bessy Valverde is a 76 year old [...] Patient denies need for refills. Jordyn Garcia [facility] Clinical Pharmacist, Pharmacy Anticoagulation Clinic Pharmacy Anticoagulation Clinic Pager: [phone] . documented in this encounterFirelands Regional Medical [facility]07-12-2022 Miscellaneous Notes* Telephone Encounter - Jonathan Hakwins RP - 02/18/2022 9:05 AM EDT [facility] Ambulatory Pharmacy Anticoagulation Clinic Anticoagulation Episode Summary Anticoagulation Care Providers Provider Role Specialty Phone number George Mata MD Responsible Internal Medicine [phone] Bessy Valverde is a 76 year old [...] Pharmacy Anticoagulation Clinic Pharmacy Anticoagulation Clinic Pager: [phone] . documented in this encounterFirelands Regional Medical [facility]06-28-2022 Miscellaneous Notes* Telephone Encounter - Jonathan Hawkins RPh - 02/04/2022 8:35 AM EDT [facility] Ambulatory Pharmacy Anticoagulation Clinic Anticoagulation Episode Summary Anticoagulation Care Providers Provider Role Specialty Phone number George Mata MD Responsible Internal Medicine [phone] Bessy Valverde is a 76 year old [...] Pharmacy Anticoagulation Clinic Pharmacy Anticoagulation Clinic Pager: [phone] . documented in this encounterFirelands Regional Medical [facility]05-17-2022 Miscellaneous Notes* Telephone Encounter - Jonathan Hawkins RPh - 12/24/2021 9:52 AM EDT [facility] Ambulatory Pharmacy Anticoagulation Clinic Anticoagulation Episode Summary Anticoagulation Care Providers Provider Role Specialty Phone number George Mata MD [facility] Internal Medicine [phone] Bessy Valverde is a 76 year old [...] Next home INR check scheduled on 01/07/2022 oJnathan Hawkins [facility] Clinical Pharmacist, Pharmacy Anticoagulation Clinic Pharmacy Anticoagulation Clinic Pager: [phone] . documented in this encounterFire[facility]-03-[facility]22 Miscellaneous Notes* Telephone Encounter - Roberth Lynda [facility] - 12/10/2021 9:27 AM EDT [facility] Amb[facility] Clinic Anticoagulation Episode Summary Anticoagulation Care Providers Provider Role Specialty Phone number George Mata MD [facility] Internal Medicine [phone] Bessy Valverde is a 75 year old [...] Indication for Warfarin: Permanent atrial fibrillation (hcc) residential (current) use of anticoagulants Anticoagulation Episode Summary Current INR goal: 2.0-3.0 Assessment: INR result of 2.7 is therapeutic Plan: Called and spoke to patient/caregiver Advised patient to continue current weekly dose Next point of care INR check scheduled on 12/24/2021 Patient verbalizes understanding of the plan. Patient denies need for refills. Roberth Howell RPh Clinical Pharmacist, Pharmacy Anticoagulation Clinic Pharmacy Anticoagulation Clinic Pager: [phone] . * Telephone Encounter - Roberth Howell RPh - 12/10/2021 9:12 AM EDT Patient due to test INR today. Will continue to monitor for results. Roberth Howell RPh documented in this encounterFirelands [facility]04-22-2022 Miscellaneous Notes* Telephone Encounter - Paola Young [...] 5 mg all other days KRISTINA: No FFVLNOIGY-ZYBDQNPZP-HENIMLIO-SCOP 16.2 MG-0.1037 MG-0.0194 MG TABLET 240 tablet 0 Sig: Take 1 tablet by mouth every 6 hours as needed. KRISTINA: No RX INSTRUCTIONS: Patient aware RX will be sent to pharmacy. No need to notify patient. Patient aware RX escripted to mail away pharmacy. No need to notify patient. Alpa Dominguez documented in this encounterFirelands [facility]03-29-2022 Miscellaneous Notes* Telephone Encounter - Jonathan Hawkins RPh - 11/05/2021 8:26 AM EDT [facility] Anticoagulation Clinic Anticoagulation Episode Summary Anticoagulation Care Providers Provider Role Specialty Phone number George Mata MD [facility] Internal Medicine [phone] Bessy Valverde is a 75 year old [...] Pharmacy Anticoagulation Clinic Pharmacy Anticoagulation Clinic Pager: [phone] . documented in this encounterFirelands [facility]03-17-2022 Hospital Discharge instructions Patient Education 10/24/2021 11:39:09 [...] Document Reviewed: 07/28/2014 ExitCare Patient Information 2014 [employer]. This information is not intended to replace [...] until you are awake and alert. Take wgyo-grb-lnewvdq and prescription medicines only as told by [...] 05/17/2014 Document Revised: 07/09/2018 Document Reviewed: 11/15/2016 [employer] Patient Education 2020 [employer]. Follow Up Care 10/17/2021 14:04:25 With:BRIONNA GANT MD Address: [address] [place] [address] [address] [facility] [place] [address]- [phone] When:12/30/2021 14:45:00 [facility] 12-22-2021 Hospital Discharge instructions Patient Education 07/31/2021 [...] oz of hard liquor. General instructions Take lueb-set-rbrohqo and prescription medicines only as told by [...] 09/17/2017 Document Revised: 07/09/2018 Document Reviewed: 09/17/2017 [employer] Patient Education 2020 [employer] 07/31/2021 12:41:10 Form - Daily Weight [...] 10/08/2007 Document Revised: 07/26/2018 Document Reviewed: 07/26/2018 [employer] Patient Education 2020 [employer]. 07/31/2021 12:40:52 3- Heart Cath/PCI groin (05/2018)(CUSTOM) [...] need to report the following to your data migration consultant: Any draining or oozing from the site [...] Document Reviewed: 07/28/2014 ExitCare Patient Information 2015 [employer]. This information is not intended to replace [...] and water are not available, use hand carpenter repair. 2.Use an alcohol wipe to clean the [...] 04/08/2012 Document Revised: 11/17/2019 Document Reviewed: 04/27/2019 [employer] Patient Education 2020 [employer]. 07/25/2021 16:11:22 When Your AICD Discharges AICD [...] will not be eligible for a commercial maintenance technician's license if you have an AICD because [...] wiggling in the pocket under the skin 9749-0996 [employer]. [address] [place] [address]. All rights reserved. This information is not [...] from your device to your healthcare provider. 2033-29[address] [employer]. [address] [place] [address]. All rights reserved. This information is not intended as a substitute for professional medical care. Always follow yourhealthcare professional's instructions. Follow Up Care 07/25/2021 12:16:53 With:DEANA SIDDIQI Address: [address] [facility] [address] [facility] [place] [address] [phone] [facility] (1) When:5-7 days Comments:Schedule appointment as soon as possible With:post discharge home follow up visit scheduled for 08/02 between 8a-12n Address:Unknown When: Unknown With:RN Public Policy Associate Address: When:1-2 days Comments:RN CC will call you at home after discharge. If you have any non- emergent questions or needs, please call [phone], Mon.- Fri., 08:00 -- 04:30 p.m. With:Go to emergency room if symptoms worsen Address:Unknown When:2-4 days With:GEORGE MATA MD Address: [address] [place] [address]- When:2-4 days [facility] 12-16-2021 Evaluation + Plan noteExtracted from: Title:History [...] an ischemic evaluation. Will discuss with primary data migration consultant in regards to inpatient versus outpatient ischemic [...] Provider: Location:[facility] Appointment Type:CV Remote Procedure [facility] 12-03-2021 History of Present illness Narrative* Raquel [...] 12, 2021 9:19 AM documented in this encounterFirelands [facility]08-10-2021 History of Present illness Narrative* Raquel Maki [...] 19, 2021 11:41 AM documented in this encounterFirelands [facility] Medical [facility]06-22-2019 History of Past illness Narrative* Problem Noted [...] of this encounter (statuses as of 11/05/2021) [facility] of Past illness Narrative* Problem Noted [...] of this encounter (statuses as of 11/06/2021) [facility] of Past illness Narrative* Problem Noted [...] of this encounter (statuses as of 11/29/2021) [facility] of Past illness Narrative* Problem Noted [...] of this encounter (statuses as of 12/10/2021) [facility] of Past illness Narrative* Problem Noted [...] of this encounter (statuses as of 12/24/2021) [facility] of Past illness Narrative* Problem Noted [...] of this encounter (statuses as of 02/04/2022) [facility] of Past illness Narrative* Problem Noted [...] of this encounter (statuses as of 02/18/2022) [facility] of Past illness Narrative* Problem Noted [...] of this encounter (statuses as of 03/04/2022) [facility] of [facility] illness Narrative* Problem Noted [...] of this encounter (statuses as of 03/18/2022) [facility] of [facility] illness Narrative* Problem Noted [...] of this encounter (statuses as of 04/01/2022) [facility] of [facility] illness Narrative* Problem Noted [...] of this encounter (statuses as of 04/21/2022) [facility] of [facility] illness Narrative* Problem Noted [...] of this encounter (statuses as of 04/29/2022) [facility] of [facility] illness Narrative* Problem Noted [...] of this encounter (statuses as of 05/13/2022) [facility] Narrative* Problem Noted [...] of this encounter (statuses as of 05/17/2022) [facility] Narrative* Problem Noted [...] of this encounter (statuses as of 05/19/2022) [facility] Narrative* Problem Noted [...] of this encounter (statuses as of 05/27/2022) [facility] Narrative* Problem Noted [...] of this encounter (statuses as of 06/10/2022) [facility] Narrative* Problem Noted [...] of this encounter (statuses as of 06/20/2022) [facility] Narrative* Problem Noted [...] of this encounter (statuses as of 06/24/2022) [facility] Narrative* Problem Noted [...] of this encounter (statuses as of 07/22/2022) [facility] Narrative* Problem Noted [...] of this encounter (statuses as of 07/24/2022) [facility] Narrative* Problem Noted [...] of this encounter (statuses as of 07/26/2022) [facility] Narrative* Problem Noted [...] of this encounter (statuses as of 08/10/2022) [facility] Narrative* Problem Noted [...] of this encounter (statuses as of 08/11/2022) [facility] Narrative* Problem Noted [...] of this encounter (statuses as of 08/19/2022) [facility] Narrative* Problem Noted [...] of this encounter (statuses as of 08/22/2022) [facility] Narrative* Problem Noted [...] of this encounter (statuses as of 09/02/2022) [facility] Narrative* Problem Noted [...] of this encounter (statuses as of 09/16/2022) [facility] N[facility]* Problem Noted [...] of this encounter (statuses as of 09/17/2022) [facility] N[facility]* Problem Noted [...] of this encounter (statuses as of 09/30/2022) [facility] Narrative* Problem Noted [...] of this encounter (statuses as of 10/28/2022) [facility] Narr[facility]* Problem Noted [...] of this encounter (statuses as of 12/09/2022) [facility] Narr[facility]* Problem Noted [...] of this encounter (statuses as of 12/23/2022) [facility] Narr[facility]* Problem Noted [...] of this encounter (statuses as of 01/06/2023) [facility] N[facility]* Problem Noted [...] of this encounter (statuses as of 01/23/2023) [facility] N[facility]* Problem Noted [...] of this encounter (statuses as of 01/28/2023) [facility] N[facility]* Problem Noted [...] of this encounter (statuses as of 02/03/2023) [facility] N[facility]* Problem Noted [...] of this encounter (statuses as of 02/17/2023) [facility] N[facility]* Problem Noted [...] of this encounter (statuses as of 03/06/2023) [facility] Narr[facility]* Problem Noted [...] of this encounter (statuses as of 03/17/2023) [facility] N[facility]* Problem Noted [...] of this encounter (statuses as of 03/31/2023) [facility] Narr[facility]* Problem Noted [...] of this encounter (statuses as of 04/14/2023) [facility]* Problem Noted [...] of this encounter (statuses as of 05/18/2023) [facility] N[facility]* Problem Noted [...] of this encounter (statuses as of 06/09/2023) [facility] N[facility]* Problem Noted [...] of this encounter (statuses as of 06/23/2023) [facility] Narr[facility]* Problem Noted [...] of this encounter (statuses as of 07/07/2023) [facility] N[facility]* Problem Noted [...] of this encounter (statuses as of 09/15/2023) [facility] Narr[facility]* Problem Noted [...] of this encounter (statuses as of 09/29/2023) [facility] Narr[facility]* Problem Noted [...] of this encounter (statuses as of 10/13/2023) [facility] Narr[facility]* Problem Noted [...] of this encounter (statuses as of 10/27/2023) [facility] Narrative* Problem Noted [...] of this encounter (statuses as of 11/10/2023) [facility] Narr[facility]* Problem Noted [...] of this encounter (statuses as of 11/11/2023) [facility] Narr[facility]* Problem Noted [...] of this encounter (statuses as of 11/24/2023) [facility] Narrative* Problem Noted [...] of this encounter (statuses as of 11/13/2023) [facility] Future Appointments Appointment Date:12/30/2021 02:45:00 PM Scheduled Provider: Location:[facility] Appointment Type:CV OV Appointment Date:12/30/2021 02:45:00 PM Scheduled Provider: Location:[facility] Appointment Type:CV Office Procedure ICD Appointment Date:04/03/2022 09:30:00 AM Scheduled Provider: Location:[facility] Appointment Type:CV Remote Procedure Future Scheduled Tests Laboratory* Basic Metabolic Panel 10/14/21 * Basic Metabolic Panel 09/23/21 * Complete Blood Count 09/23/21 [facility] evaluation + Plan note Future Appointments Appointment [...] proBNP 10/24/21 * Complete Blood Count 09/23/21 [facility] evaluation + Plan note Future Appointments Appointment Date:12/16/2022 10:00:00 AM Scheduled Provider: Location:[facility] Appointment Type:CV Procedure - Echo (Adult) Appointment Date:12/29/2022 03:15:00 PM Scheduled Provider: Location:[facility] Appointment Type:CV OV Appointment Date:02/13/2023 01:30:00 PM Scheduled Provider: Location:[facility] Appointment Type:CV Office Procedure ICD Appointment Date:05/15/2023 08:15:00 AM Scheduled Provider: Location:[facility] Appointment Type:CV Remote Procedure [facility] Evaluation + Plan note Future Appointments Appointment Date:12/29/2022 03:15:00 PM Scheduled Provider: Location:[facility] Appointment Type:CV OV Appointment Date:02/13/2023 01:30:00 PM Scheduled Provider: Location:[facility] Appointment Type:CV Office Procedure ICD Appointment Date:05/15/2023 08:15:00 AM Scheduled Provider: Location:[facility] Appointment Type:CV Remote Procedure [facility] Evaluation + Plan note Future Appointments Appointment Date:12/06/2024 03:00:00 PM Scheduled Provider:JAVIER GANT Location:[facility] Appointment Type:CV OV Appointment Date:12/19/2024 05:45:00 PM Scheduled Provider: Location:[facility] Appointment Type:CV Remote Procedure [facility] Evaluation + Plan note Future Appointments Appointment Date:01/13/2025 03:45:00 PM Scheduled Provider:JAVIER TOUSSAINT Location:[facility] Appointment Type:CV OV Appointment Date:01/25/2025 10:30:00 AM Scheduled Provider:HARRIS UPTON Location:[facility] Appointment Type:CV OV Hospital Follow Up Appointment Date:06/06/2025 02:00:00 PM Scheduled Provider:JAVIER GANT Location:[facility] Appointment Type:CV OV [facility] evaluation + Plan note Future Appointments [...] Provider:JAVIER GANT Location:[facility] Appointment Type:CV OV [facility] evaluation + Plan note Future Appointments Appointment Date:03/09/2025 01:00:00 PM Scheduled Provider: Location:[facility] Appointment Type:CV Incision Check Appointment Date:06/01/2025 01:30:00 PM Scheduled Provider: Location:[facility] Appointment Type:CV Office Procedure ICD Appointment Date:06/06/2025 02:00:00 PM Scheduled Provider:JAVIER GANT Location:[facility] Appointment Type:CV OV Appointment Date:09/04/2025 05:15:00 PM Scheduled Provider: Location:[facility] Appointment Type:CV Remote Procedure [facility] Evaluation note* Diagnosis Chronic systolic heart failure (HCC) Chronic systolic heart failure [facility] Anticoagulated on Coumadin ( home INR testing) Encounter for therapeutic drug monitoring Irritable bowel syndrome, unspecified type [facility] 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 Long-term (current) use of anticoagulants Permanent atrial fibrillation (HCC) Atrial fibrillation [facility] Diagnosis Acute gout of right foot, unspecified cause [facility] Diagnosis Atherosclerosis of [place] coronary artery of [place] heart without angina pectoris Anticoagulated on Coumadin ( home INR testing) Encounter for therapeutic drug monitoring [facility] Diagnosis residential (current) use of anticoagulants- Primary Long-term (current) use of anticoagulants Permanent atrial fibrillation (HCC) Atrial fibrillation [facility] Diagnosis Irritable bowel syndrome, unspecified type [facility]* Diagnosis Routine medical exam- Primary Routine general medical examination at a health care facility Asthma, moderate persistent, well-controlled Unspecified asthma Pure hypercholesterolemia Byers's esophagus with dysplasia Byers's esophagus Interstitial lung disease (HCC) Postinflammatory pulmonary fibrosis Atherosclerosis of [place] coronary artery of [place] heart without angina pectoris Controlled type 2 diabetes mellitus with stage 3 chronic kidney disease, without long-term current use of insulin (HCC) Chronic systolic heart failure (HCC) Chronic systolic heart failure PAD (peripheral artery disease) (HCC) Peripheral vascular disease, unspecified Need for COVID-19 vaccine Left knee pain, unspecified chronicity [facility] Diagnosis Acute gout of right foot, unspecified cause [facility] Diagnosis PAD (peripheral artery disease) (HCC)- Primary Peripheral vascular disease, unspecified [facility] Diagnosis Acute idiopathic gout of foot, unspecified laterality- Primary Interstitial lung disease (HCC) 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, without long-term current use of insulin (HCC) Thrombocytopenia (HCC) Thrombocytopenia, unspecified Chronic systolic heart failure (HCC) Chronic systolic heart failure Ventricular tachycardia (HCC) Paroxysmal ventricular tachycardia [facility] 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 Long-term (current) use of anticoagulants Permanent atrial fibrillation (HCC) Atrial fibrillation [facility] Diagnosis Irritable bowel syndrome, unspecified type [facility] this [facility]* Diagnosis Atherosclerosis of [place] coronary artery of [place] heart without angina pectoris Asthma, moderate persistent, well-controlled Unspecified asthma [facility] noteNo assessment information availableWProMedica F[facility] Work Phone: Evaluation note* Diagnosis Sinobronchitis- Primary Unspecified sinusitis (chronic) Irritable bowel syndrome, unspecified type Asthma, moderate persistent, well-controlled Unspecified asthma documented [facility] this encounter [facility]* 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 Long-term (current) use of anticoagulants Permanent atrial fibrillation (HCC) Atrial fibrillation Anticoagulated on Coumadin ( home INR testing) Encounter for therapeutic drug monitoring documented in this encounter [facility]* Diagnosis Asthma, moderate persistent, well-controlled Unspecified asthma documented in this encounter [facility]* 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 Long-term (current) use of anticoagulants Permanent atrial fibrillation (HCC) Atrial fibrillation [facility] this encounter [facility]* Diagnosis Controlled type 2 diabetes mellitus with stage 3 chronic kidney disease, without long-term current use of insulin (HCC)- Primary Chronic systolic heart failure (HCC) Chronic systolic heart failure Atherosclerosis of [place] coronary artery of [place] heart without angina pectoris Pure hypercholesterolemia Essential hypertension Unspecified essential hypertension Asthma, moderate persistent, well-controlled Unspecified asthma Interstitial lung disease (HCC) Postinflammatory pulmonary fibrosis Skin tear of left upper arm without complication, initial encounter Screening for depression Encounter for screening examination for other mental health and behavioral disorders documented [facility] this encounter [facility]* Diagnosis Asthma, moderate persistent, well-controlled Unspecified asthma documented [facility] this [facility]* 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 Long-term (current) use of anticoagulants Permanent atrial fibrillation (HCC) Atrial fibrillation [facility]* Diagnosis Foot pain, left Pain in limb [facility] [facility] Diagnosis residential (current) use of anticoagulants- Primary Long-term (current) use of anticoagulants Permanent atrial fibrillation (HCC) Atrial fibrillation [facility] Diagnosis Acute cough [facility] Diagnosis Routine medical exam- Primary Routine [...] Encounter for therapeutic drug monitoring Atherosclerosis of [place] coronary artery of [place] heart without angina pectoris Essential hypertension Unspecified essential hypertension Acute cough Chronic ankle pain, unspecified laterality PVD (peripheral vascular disease) with claudication (HCC) Peripheral vascular disease, unspecified Thrombocytopenia (HCC) Thrombocytopenia, unspecified Ventricular tachycardia (HCC) Paroxysmal ventricular tachycardia Interstitial lung disease (HCC) Postinflammatory pulmonary fibrosis [facility] this [facility] Diagnosis Acute gout of right foot, unspecified cause [facility] Diagnosis Controlled type 2 diabetes mellitus with stage 3 chronic kidney disease, without long-term current use of insulin (HCC)- Primary [facility] this [facility] Diagnosis Lumbosacral radiculopathy- Primary Thoracic or lumbosacral neuritis or radiculitis, unspecified Encounter for immunization Need for other specified prophylactic vaccination against single bacterial disease Asthma, moderate persistent, well-controlled Unspecified asthma Atherosclerosis of [place] coronary artery of [place] heart without angina pectoris Controlled type 2 diabetes mellitus with stage 3 chronic kidney disease, without long-term current use of insulin (HCC) Chronic systolic heart failure (HCC) Chronic systolic heart failure Anemia due to stage 3b chronic kidney disease (HCC) (HCC) Irritable bowel syndrome, unspecified type Gout of foot, unspecified cause, unspecified chronicity, unspecified laterality documented in this encounter [facility] Diagnosis Irritable bowel syndrome, unspecified type [facility]* Diagnosis Permanent atrial fibrillation (HCC)- Primary Atrial fibrillation Chronic systolic heart failure (HCC) Chronic systolic heart failure Interstitial lung disease (HCC) 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, without long-term current use of insulin (HCC) Essential hypertension Unspecified essential hypertension documented in this encounter [facility] Narrative No data available for this section [facility] Discharge instructions No data available for this section [facility] Progress note No data available for this section [facility] Reason for referral (narrative)* Outpatient Procedure (Routine) - Pending Review Specialty Diagnoses / Procedures Referred By Cristobal osborne Referred [facility] Diagnoses PAD (peripheral artery disease) (HCC) Procedures PVR ANK PRESS [facility] NON-INVAS PHYSIOLOGIC STD EXTREMITY ART 2 LEVEL George Mata MD [address] [place] [address] [facility] [place] [phone] Referral ID Status Reason Start Date Expiration Date Visits Requested Visits Authorized [id number] Pending Review Auto-Generat ed Referral 07/24/2023 1 1 [facility] for referral (narrative)* Diagnostic Procedure Only (Urgent) - Closed Specialty Diagnoses / Procedures Referred By Cristobal osborne Referred To Contact XR IMAGING Diagnoses Foot pain, left Procedures XR FOOT GENERAL 3V AP/LAT/OBL LEFT X-RAY FOOT MINIMUM 3 VIEWS Mai Lutz, RAFFAELE [address] [place] [address] [place] [address] Referral ID Status Reason Start Date Expiration Date V isits Requested Visits Authorized [id number] Closed Auto-Generate d Referral 07/12/2021 08/11/2022 1 [facility]No reason for referral information [facility] Phone: Reason for visit Narrative* Diagnostic Procedure Only (Routine) - Closed Specialty Diagnoses / Procedures Referred By Contac t Referred To [facility] Diagnoses Chronic systolic heart failure (HCC) Procedures ECHO ECHO TTHRC R-T 2D W/WOM-MODE COMPL SPEC&COLR D Charissa Chowdhury, BUSINESS PROFESSOR.COMMERCIAL MAINTENANCE TECHNICIAN [address] [id number] [facility] [place] [address] [place] [address] Referral ID Status Reason Start Date Expiration Date Visits Re quested Visits Authorized [id number] Closed 10/28/2021 08/09/2022 1 1 [facility]* Diagnostic Procedure Only (Urgent) - Closed Specialty Diagnoses / Procedures Referred By Contac t Referred To Contact XR IMAGING Diagnoses Foot pain, left Procedures XR FOOT GENERAL 3V AP/LAT/OBL LEFT X-RAY FOOT MINIMUM 3 VIEWS Mai Lutz, BUSINESS PROFESSOR.COMMERCIAL MAINTENANCE TECHNICIAN [address] [place] [address] [facility] [place] [id number] Referral ID Status Reason Start Date Expiration Date V isits Requested Visits Authorized [id number] Closed Auto-Generate d Referral 07/12/2021 08/11/2022 1 1 [facility] Medications Administered Section Inactive Administered Medications - [...] CONSULT TO NEPHROLOGY George Mata MD [address] [place] [address] Referral ID Status Reason Start Date Expiration Date Visits Requested Visits Authorized [id number] Authorized PCP Requested Referral 09/14/2024 09/13/2025 1 1 Specialty Diagnoses / Procedures Referred By Contac t Referred To Contact Podiatry Diagnoses Controlled type 2 diabetes mellitus with stage 3 chronic kidney disease, without long-term current use of insulin (HCC) Chronic ankle pain, unspecified laterality Procedures CONSULT TO PODIATRY George Mata MD [address] [place] [address] Referral ID Status Reason Start Date Expiration Date Visits Requested Visits Authorized [id number] Authorized PCP Requested Referral 08/09/2025 1 1 Specialty Diagnoses / Procedures Referred By Contac t Referred To Contact Vascular Medicine Diagnoses PAD (peripheral artery disease) ([facility]) Procedures CONSULT TO VASCULAR MEDICINE OFFICE/OUTPATIENT [facility] 60-74 MINUTES George Mata MD [address] [place] [address] Referral ID Status Reason Start Date Expiration Date Visits Requested Visits Authorized [id number] Pending Review PCP Requested Referral 08/22/2022 08/22/2023 [...] Yes May 02, 2021 7:28am Power of Production Support Analyst Yes April 7:28am Advance Directive Response Recorded Date/ Time Living Will Yes May 02, 2021 8:28am Power of Production Support Analyst Yes April 8:28am Summary Purpose Additional Source Comments Source Comments (unrecognize d section and content) In the event this informatio n is protected by the Federal Confidentiality of Alcohol and Drug Abuse Patient Records regulations: The Federal rules restrict any use of the information to criminally investigate or prosecute any alcohol or drug abuse patient.[facility] the event this information is protected by the Federal Confidentiality of Alcohol and Drug Abuse Patient Records regulations: The Federal rules restrict any use of the information to criminally investigate or prosecute any alcohol or drug abuse patient.[facility] Campus[facility] the event this information is protected by the Federal Confidentiality of Alcohol and Drug Abuse Patient Records regulations: The Federal rules restrict any use of the information to criminally investigate or prosecute any alcohol or drug abuse patient.[facility] CampusIn the event this information is protected by the Federal Confidentiality of Alcohol and Drug Abuse Patient Records regulations: The Federal rules restrict any use of the information to criminally investigate or prosecute any alcohol or drug abuse patient.[facility] CampusIn the event this information is protected by the Federal Confidentiality of Alcohol and Drug Abuse Patient Records regulations: The Federal rules restrict any use of the information to criminally investigate or prosecute any alcohol or drug abuse patient.[facility] CampusIn the event this information is protected by the Federal Confidentiality of Alcohol and Drug Abuse Patient Records regulations: The Federal rules restrict any use of the information to criminally investigate or prosecute any alcohol or drug abuse patient.[facility] CampusIn the event this information is protected by the Federal Confidentiality of Alcohol and Drug Abuse Patient Records regulations: The Federal rules restrict any use of the information to criminally investigate or prosecute any alcohol or drug abuse patient.[facility] CampusIn the event this information is protected by the Federal Confidentiality of Alcohol and Drug Abuse Patient Records regulations: The Federal rules restrict any use of the information to criminally investigate or prosecute any alcohol or drug abuse patient.[facility] CampusIn the event this information is protected by the Federal Confidentiality of Alcohol and Drug Abuse Patient Records regulations: The Federal rules restrict any use of the information to criminally investigate or prosecute any alcohol or drug abuse patient.[facility] CampusIn the event this information is protected by the Federal Confidentiality of Alcohol and Drug Abuse Patient Records regulations: The Federal rules restrict any use of the information to criminally investigate or prosecute any alcohol or drug abuse patient.[facility] CampusIn the event this information is protected by the Federal Confidentiality of Alcohol and Drug Abuse Patient Records regulations: The Federal rules restrict any use of the information to criminally investigate or prosecute any alcohol or drug abuse patient.[facility] CampusIn the event this information is protected by the Federal Confidentiality of Alcohol and Drug Abuse Patient Records regulations: The Federal rules restrict any use of the information to criminally investigate or prosecute any alcohol or drug abuse patient.[facility] CampusIn the event this information is protected by the Federal Confidentiality of Alcohol and Drug Abuse Patient Records regulations: The Federal rules restrict any use of the information to criminally investigate or prosecute any alcohol or drug abuse patient.[facility] CampusIn the event this information is protected by the Federal Confidentiality of Alcohol and Drug Abuse Patient Records regulations: The Federal rules restrict any use of the information to criminally investigate or prosecute any alcohol or drug abuse patient.[facility] CampusIn the event this information is protected by the Federal Confidentiality of Alcohol and Drug Abuse Patient Records regulations: The Federal rules restrict any use of the information to criminally investigate or prosecute any alcohol or drug abuse patient.[facility] CampusIn the event this information is protected by the Federal Confidentiality of Alcohol and Drug Abuse Patient Records regulations: The Federal rules restrict any use of the information to criminally investigate or prosecute any alcohol or drug abuse patient.[facility] CampusIn the event this information is protected by the Federal Confidentiality of Alcohol and Drug Abuse Patient Records regulations: The Federal rules restrict any use of the information to criminally investigate or prosecute any alcohol or drug abuse patient.[facility] CampusIn the event this information is protected by the Federal Confidentiality of Alcohol and Drug Abuse Patient Records regulations: The Federal rules restrict any use of the information to criminally investigate or prosecute any alcohol or drug abuse patient.[facility] CampusIn the event this information is protected by the Federal Confidentiality of Alcohol and Drug Abuse Patient Records regulations: The Federal rules restrict any use of the information to criminally investigate or prosecute any alcohol or drug abuse patient.[facility] CampusIn the event this information is protected by the Federal Confidentiality of Alcohol and Drug Abuse Patient Records regulations: The Federal rules restrict any use of the information to criminally investigate or prosecute any alcohol or drug abuse patient.[facility] CampusIn the event this information is protected by the Federal Confidentiality of Alcohol and Drug Abuse Patient Records regulations: The Federal rules restrict any use of the information to criminally investigate or prosecute any alcohol or drug abuse patient.[facility] CampusIn the event this information is protected by the Federal Confidentiality of Alcohol and Drug Abuse Patient Records regulations: The Federal rules restrict any use of the information to criminally investigate or prosecute any alcohol or drug abuse patient.[facility] CampusIn the event this information is protected by the Federal Confidentiality of Alcohol and Drug Abuse Patient Records regulations: The Federal rules restrict any use of the information to criminally investigate or prosecute any alcohol or drug abuse patient.[facility] CampusIn the event this information is protected by the Federal Confidentiality of Alcohol and Drug Abuse Patient Records regulations: The Federal rules restrict any use of the information to criminally investigate or prosecute any alcohol or drug abuse patient.[facility] CampusIn the event this information is protected by the Federal Confidentiality of Alcohol and Drug Abuse Patient Records regulations: The Federal rules restrict any use of the information to criminally investigate or prosecute any alcohol or drug abuse patient.[facility] CampusIn the event this information is protected by the Federal Confidentiality of Alcohol and Drug Abuse Patient Records regulations: The Federal rules restrict any use of the information to criminally investigate or prosecute any alcohol or drug abuse patient.[facility] CampusIn the event this information is protected by the Federal Confidentiality of Alcohol and Drug Abuse Patient Records regulations: The Federal rules restrict any use of the information to criminally investigate or prosecute any alcohol or drug abuse patient.[facility] CampusIn the event this information is protected by the Federal Confidentiality of Alcohol and Drug Abuse Patient Records regulations: The Federal rules restrict any use of the information to criminally investigate or prosecute any alcohol or drug abuse patient.[facility] CampusIn the event this information is protected by the Federal Confidentiality of Alcohol and Drug Abuse Patient Records regulations: The Federal rules restrict any use of the information to criminally investigate or prosecute any alcohol or drug abuse patient.[facility] CampusIn the event this information is protected by the Federal Confidentiality of Alcohol and Drug Abuse Patient Records regulations: The Federal rules restrict any use of the information to criminally investigate or prosecute any alcohol or drug abuse patient.[facility] CampusIn the event this information is protected by the Federal Confidentiality of Alcohol and Drug Abuse Patient Records regulations: The Federal rules restrict any use of the information to criminally investigate or prosecute any alcohol or drug abuse patient.[facility] CampusIn the event this information is protected by the Federal Confidentiality of Alcohol and Drug Abuse Patient Records regulations: The Federal rules restrict any use of the information to criminally investigate or prosecute any alcohol or drug abuse patient.[facility] CampusIn the event this information is protected by the Federal Confidentiality of Alcohol and Drug Abuse Patient Records regulations: The Federal rules restrict any use of the information to criminally investigate or prosecute any alcohol or drug abuse patient.[facility] CampusIn the event this information is protected by the Federal Confidentiality of Alcohol and Drug Abuse Patient Records regulations: The Federal rules restrict any use of the information to criminally investigate or prosecute any alcohol or drug abuse patient.[facility] CampusIn the event this information is protected by the Federal Confidentiality of Alcohol and Drug Abuse Patient Records regulations: The Federal rules restrict any use of the information to criminally investigate or prosecute any alcohol or drug abuse patient.[facility] CampusIn the event this information is protected by the Federal Confidentiality of Alcohol and Drug Abuse Patient Records regulations: The Federal rules restrict any use of the information to criminally investigate or prosecute any alcohol or drug abuse patient.[facility] CampusIn the event this information is protected by the Federal Confidentiality of Alcohol and Drug Abuse Patient Records regulations: The Federal rules restrict any use of the information to criminally investigate or prosecute any alcohol or drug abuse patient.[facility] CampusIn the event this information is protected by the Federal Confidentiality of Alcohol and Drug Abuse Patient Records regulations: The Federal rules restrict any use of the information to criminally investigate or prosecute any alcohol or drug abuse patient.[facility] CampusIn the event this information is protected by the Federal Confidentiality of Alcohol and Drug Abuse Patient Records regulations: The Federal rules restrict any use of the information to criminally investigate or prosecute any alcohol or drug abuse patient.[facility] CampusIn the event this information is protected by the Federal Confidentiality of Alcohol and Drug Abuse Patient Records regulations: The Federal rules restrict any use of the information to criminally investigate or prosecute any alcohol or drug abuse patient.[facility] CampusIn the event this information is protected by the Federal Confidentiality of Alcohol and Drug Abuse Patient Records regulations: The Federal rules restrict any use of the information to criminally investigate or prosecute any alcohol or drug abuse patient.[facility] CampusIn the event this information is protected by the Federal Confidentiality of Alcohol and Drug Abuse Patient Records regulations: The Federal rules restrict any use of the information to criminally investigate or prosecute any alcohol or drug abuse patient.[facility] CampusIn the event this information is protected by the Federal Confidentiality of Alcohol and Drug Abuse Patient Records regulations: The Federal rules restrict any use of the information to criminally investigate or prosecute any alcohol or drug abuse patient.[facility] CampusIn the event this information is protected by the Federal Confidentiality of Alcohol and Drug Abuse Patient Records regulations: The Federal rules restrict any use of the information to criminally investigate or prosecute any alcohol or drug abuse patient.[facility] CampusIn the event this information is protected by the Federal Confidentiality of Alcohol and Drug Abuse Patient Records regulations: The Federal rules restrict any use of the information to criminally investigate or prosecute any alcohol or drug abuse patient.[facility] CampusIn the event this information is protected by the Federal Confidentiality of Alcohol and Drug Abuse Patient Records regulations: The Federal rules restrict any use of the information to criminally investigate or prosecute any alcohol or drug abuse patient.[facility] CampusIn the event this information is protected by the Federal Confidentiality of Alcohol and Drug Abuse Patient Records regulations: The Federal rules restrict any use of the information to criminally investigate or prosecute any alcohol or drug abuse patient.[facility] CampusIn the event this information is protected by the Federal Confidentiality of Alcohol and Drug Abuse Patient Records regulations: The Federal rules restrict any use of the information to criminally investigate or prosecute any alcohol or drug abuse patient.[facility] CampusIn the event this information is protected by the Federal Confidentiality of Alcohol and Drug Abuse Patient Records regulations: The Federal rules restrict any use of the information to criminally investigate or prosecute any alcohol or drug abuse patient.[facility] CampusIn the event this information is protected by the Federal Confidentiality of Alcohol and Drug Abuse Patient Records regulations: The Federal rules restrict any use of the information to criminally investigate or prosecute any alcohol or drug abuse patient.[facility] CampusIn the event this information is protected by the Federal Confidentiality of Alcohol and Drug Abuse Patient Records regulations: The Federal rules restrict any use of the information to criminally investigate or prosecute any alcohol or drug abuse patient.[facility] CampusIn the event this information is protected by the Federal Confidentiality of Alcohol and Drug Abuse Patient Records regulations: The Federal rules restrict any use of the information to criminally investigate or prosecute any alcohol or drug abuse patient.[facility] CampusIn the event this information is protected by the Federal Confidentiality of Alcohol and Drug Abuse Patient Records regulations: The Federal rules restrict any use of the information to criminally investigate or prosecute any alcohol or drug abuse patient.[facility] CampusIn the event this information is protected by the Federal Confidentiality of Alcohol and Drug Abuse Patient Records regulations: The Federal rules restrict any use of the information to criminally investigate or prosecute any alcohol or drug abuse patient.[facility] CampusIn the event this information is protected by the Federal Confidentiality of Alcohol and Drug Abuse Patient Records regulations: The Federal rules restrict any use of the information to criminally investigate or prosecute any alcohol or drug abuse patient.[facility] CampusIn the event this information is protected by the Federal Confidentiality of Alcohol and Drug Abuse Patient Records regulations: The Federal rules restrict any use of the information to criminally investigate or prosecute any alcohol or drug abuse patient.[facility] CampusIn the event this information is protected by the Federal Confidentiality of Alcohol and Drug Abuse Patient Records regulations: The Federal rules restrict any use of the information to criminally investigate or prosecute any alcohol or drug abuse patient.[facility] CampusIn the event this information is protected by the Federal Confidentiality of Alcohol and Drug Abuse Patient Records regulations: The Federal rules restrict any use of the information to criminally investigate or prosecute any alcohol or drug abuse patient.[facility] CampusIn the event this information is protected by the Federal Confidentiality of Alcohol and Drug Abuse Patient Records regulations: The Federal rules restrict any use of the information to criminally investigate or prosecute any alcohol or drug abuse patient.[facility] CampusIn the event this information is protected by the Federal Confidentiality of Alcohol and Drug Abuse Patient Records regulations: The Federal rules restrict any use of the information to criminally investigate or prosecute any alcohol or drug abuse patient.[facility] CampusIn the event this information is protected by the Federal Confidentiality of Alcohol and Drug Abuse Patient Records regulations: The Federal rules restrict any use of the information to criminally investigate or prosecute any alcohol or drug abuse patient.[facility] CampusIn the event this information is protected by the Federal Confidentiality of Alcohol and Drug Abuse Patient Records regulations: The Federal rules restrict any use of the information to criminally investigate or prosecute any alcohol or drug abuse patient.[facility] CampusIn the event this information is protected by the Federal Confidentiality of Alcohol and Drug Abuse Patient Records regulations: The Federal rules restrict any use of the information to criminally investigate or prosecute any alcohol or drug abuse patient.[facility] CampusIn the event this information is protected by the Federal Confidentiality of Alcohol and Drug Abuse Patient Records regulations: The Federal rules restrict any use of the information to criminally investigate or prosecute any alcohol or drug abuse patient.[facility] CampusIn the event this information is protected by the Federal Confidentiality of Alcohol and Drug Abuse Patient Records regulations: The Federal rules restrict any use of the information to criminally investigate or prosecute any alcohol or drug abuse patient.[facility] CampusIn the event this information is protected by the Federal Confidentiality of Alcohol and Drug Abuse Patient Records regulations: The Federal rules restrict any use of the information to criminally investigate or prosecute any alcohol or drug abuse patient.[facility] CampusIn the event this information is protected by the Federal Confidentiality of Alcohol and Drug Abuse Patient Records regulations: The Federal rules restrict any use of the information to criminally investigate or prosecute any alcohol or drug abuse patient.[facility] CampusIn the event this information is protected by the Federal Confidentiality of Alcohol and Drug Abuse Patient Records regulations: The Federal rules restrict any use of the information to criminally investigate or prosecute any alcohol or drug abuse patient.[facility] CampusIn the event this information is protected by the Federal Confidentiality of Alcohol and Drug Abuse Patient Records regulations: The Federal rules restrict any use of the information to criminally investigate or prosecute any alcohol or drug abuse patient.[facility] CampusIn the event this information is protected by the Federal Confidentiality of Alcohol and Drug Abuse Patient Records regulations: The Federal rules restrict any use of the information to criminally investigate or prosecute any alcohol or drug abuse patient.[facility] CampusIn the event this information is protected by the Federal Confidentiality of Alcohol and Drug Abuse Patient Records regulations: The Federal rules restrict any use of the information to criminally investigate or prosecute any alcohol or drug abuse patient.[facility] CampusIn the event this information is protected by the Federal Confidentiality of Alcohol and Drug Abuse Patient Records regulations: The Federal rules restrict any use of the information to criminally investigate or prosecute any alcohol or drug abuse patient.[facility] CampusIn the event this information is protected by the Federal Confidentiality of Alcohol and Drug Abuse Patient Records regulations: The Federal rules restrict any use of the information to criminally investigate or prosecute any alcohol or drug abuse patient.[facility] CampusIn the event this information is protected by the Federal Confidentiality of Alcohol and Drug Abuse Patient Records regulations: The Federal rules restrict any use of the information to criminally investigate or prosecute any alcohol or drug abuse patient.[facility] CampusIn the event this information is protected by the Federal Confidentiality of Alcohol and Drug Abuse Patient Records regulations: The Federal rules restrict any use of the information to criminally investigate or prosecute any alcohol or drug abuse patient.[facility] CampusIn the event this information is protected by the Federal Confidentiality of Alcohol and Drug Abuse Patient Records regulations: The Federal rules restrict any use of the information to criminally investigate or prosecute any alcohol or drug abuse patient.[facility] CampusIn the event this information is protected by the Federal Confidentiality of Alcohol and Drug Abuse Patient Records regulations: The Federal rules restrict any use of the information to criminally investigate or prosecute any alcohol or drug abuse patient.[facility] CampusIn the event this information is protected by the Federal Confidentiality of Alcohol and Drug Abuse Patient Records regulations: The Federal rules restrict any use of the information to criminally investigate or prosecute any alcohol or drug abuse patient.[facility] CampusIn the event this information is protected by the Federal Confidentiality of Alcohol and Drug Abuse Patient Records regulations: The Federal rules restrict any use of the information to criminally investigate or prosecute any alcohol or drug abuse patient.[facility] CampusIn the event this information is protected by the Federal Confidentiality of Alcohol and Drug Abuse Patient Records regulations: The Federal rules restrict any use of the information to criminally investigate or prosecute any alcohol or drug abuse patient.[facility] CampusIn the event this information is protected by the Federal Confidentiality of Alcohol and Drug Abuse Patient Records regulations: The Federal rules restrict any use of the information to criminally investigate or prosecute any alcohol or drug abuse patient.[facility] CampusIn the event this information is protected by the Federal Confidentiality of Alcohol and Drug Abuse Patient Records regulations: The Federal rules restrict any use of the information to criminally investigate or prosecute any alcohol or drug abuse patient.[facility] CampusIn the event this information is protected by the Federal Confidentiality of Alcohol and Drug Abuse Patient Records regulations: The Federal rules restrict any use of the information to criminally investigate or prosecute any alcohol or drug abuse patient.[facility] CampusIn the event this information is protected by the Federal Confidentiality of Alcohol and Drug Abuse Patient Records regulations: The Federal rules restrict any use of the information to criminally investigate or prosecute any alcohol or drug abuse patient.[facility] CampusIn the event this information is protected by the Federal Confidentiality of Alcohol and Drug Abuse Patient Records regulations: The Federal rules restrict any use of the information to criminally investigate or prosecute any alcohol or drug abuse patient.[facility] CampusIn the event this information is protected by the Federal Confidentiality of Alcohol and Drug Abuse Patient Records regulations: The Federal rules restrict any use of the information to criminally investigate or prosecute any alcohol or drug abuse patient.[facility] CampusIn the event this information is protected by the Federal Confidentiality of Alcohol and Drug Abuse Patient Records regulations: The Federal rules restrict any use of the information to criminally investigate or prosecute any alcohol or drug abuse patient.[facility] CampusIn the event this information is protected by the Federal Confidentiality of Alcohol and Drug Abuse Patient Records regulations: The Federal rules restrict any use of the information to criminally investigate or prosecute any alcohol or drug abuse patient.[facility] CampusIn the event this information is protected by the Federal Confidentiality of Alcohol and Drug Abuse Patient Records regulations: The Federal rules restrict any use of the information to criminally investigate or prosecute any alcohol or drug abuse patient.[facility] CampusIn the event this information is protected by the Federal Confidentiality of Alcohol and Drug Abuse Patient Records regulations: The Federal rules restrict any use of the information to criminally investigate or prosecute any alcohol or drug abuse patient.[facility] CampusIn the event this information is protected by the Federal Confidentiality of Alcohol and Drug Abuse Patient Records regulations: The Federal rules restrict any use of the information to criminally investigate or prosecute any alcohol or drug abuse patient.[facility] CampusIn the event this information is protected by the Federal Confidentiality of Alcohol and Drug Abuse Patient Records regulations: The Federal rules restrict any use of the information to criminally investigate or prosecute any alcohol or drug abuse patient.[facility] CampusIn the event this information is protected by the Federal Confidentiality of Alcohol and Drug Abuse Patient Records regulations: The Federal rules restrict any use of the information to criminally investigate or prosecute any alcohol or drug abuse patient.[facility] CampusIn the event this information is protected by the Federal Confidentiality of Alcohol and Drug Abuse Patient Records regulations: The Federal rules restrict any use of the information to criminally investigate or prosecute any alcohol or drug abuse patient.[facility] CampusIn the event this information is protected by the Federal Confidentiality of Alcohol and Drug Abuse Patient Records regulations: The Federal rules restrict any use of the information to criminally investigate or prosecute any alcohol or drug abuse patient.[facility] CampusIn the event this information is protected by the Federal Confidentiality of Alcohol and Drug Abuse Patient Records regulations: The Federal rules restrict any use of the information to criminally investigate or prosecute any alcohol or drug abuse patient.[facility] CampusIn the event this information is protected by the Federal Confidentiality of Alcohol and Drug Abuse Patient Records regulations: The Federal rules restrict any use of the information to criminally investigate or prosecute any alcohol or drug abuse patient.[facility] CampusIn the event this information is protected by the Federal Confidentiality of Alcohol and Drug Abuse Patient Records regulations: The Federal rules restrict any use of the information to criminally investigate or prosecute any alcohol or drug abuse patient.[facility] CampusIn the event this information is protected by the Federal Confidentiality of Alcohol and Drug Abuse Patient Records regulations: The Federal rules restrict any use of the information to criminally investigate or prosecute any alcohol or drug abuse patient.[facility] CampusIn the event this information is protected by the Federal Confidentiality of Alcohol and Drug Abuse Patient Records regulations: The Federal rules restrict any use of the information to criminally investigate or prosecute any alcohol or drug abuse patient.[facility] CampusIn the event this information is protected by the Federal Confidentiality of Alcohol and Drug Abuse Patient Records regulations: The Federal rules restrict any use of the information to criminally investigate or prosecute any alcohol or drug abuse patient.[facility] CampusIn the event this information is protected by the Federal Confidentiality of Alcohol and Drug Abuse Patient Records regulations: The Federal rules restrict any use of the information to criminally investigate or prosecute any alcohol or drug abuse patient.[facility] CampusIn the event this information is protected by the Federal Confidentiality of Alcohol and Drug Abuse Patient Records regulations: The Federal rules restrict any use of the information to criminally investigate or prosecute any alcohol or drug abuse patient.[facility] CampusIn the event this information is protected by the Federal Confidentiality of Alcohol and Drug Abuse Patient Records regulations: The Federal rules restrict any use of the information to criminally investigate or prosecute any alcohol or drug abuse patient.[facility] CampusIn the event this information is protected by the Federal Confidentiality of Alcohol and Drug Abuse Patient Records regulations: The Federal rules restrict any use of the information to criminally investigate or prosecute any alcohol or drug abuse patient.[facility] CampusIn the event this information is protected by the Federal Confidentiality of Alcohol and Drug Abuse Patient Records regulations: The Federal rules restrict any use of the information to criminally investigate or prosecute any alcohol or drug abuse patient.[facility] CampusIn the event this information is protected by the Federal Confidentiality of Alcohol and Drug Abuse Patient Records regulations: The Federal rules restrict any use of the information to criminally investigate or prosecute any alcohol or drug abuse patient.[facility] Reason for Visit (unrecogniz ed section and [...] results fro m 08-12-22 faxed to [address] [id number]: [phone]: [phone] Reason Comments Results Reason Comments F/U 6 [...] Care Teams (unrecognized sec tion and content) Learning And Development Consultant Relationship Specialty Start Date End Date George Mata MD [address] [place] [address] PCP - General 07/28/07 Consultants, [facility] [address] [place] [address] Physician Cardiology 10/20/19 13, Pharmacist [id number] [place] [address] Pharmacist Pharmacy 03/08/20 Learning And Development Consultant Relationship Specialty Start Date End Date George Mata MD [address] [place] [address] PCP - General 07/28/07 [facility], [facility] [address] [place] [address] Physician Cardiology 10/20/19 13, Pharmacist [id number] [place] [address] Pharmacist Pharmacy 03/08/20 Learning And Development Consultant Relationship Specialty Start Date End Date George Mata MD [address] [place] [address] PCP - General 07/28/07 [facility], [facility] [address] [place] [address] Physician Cardiology 10/20/19 13, Pharmacist [id number] [place] [address] Pharmacist Pharmacy 03/08/20 Learning And Development Consultant Relationship Specialty Start Date End Date George Mata MD [address] [place] [address] PCP - General 07/28/07 [facility], [facility] [address] [place] [address] Physician Cardiology 10/20/19 13, Pharmacist [id number] [place] [address] Pharmacist Pharmacy 03/08/20 Learning And Development Consultant Relationship Specialty Start Date End Date George Mata MD [address] [place] [address] PCP - General 07/28/07 [facility], [facility] [address] [place] [address] Physician Cardiology 10/20/19 13, Pharmacist [id number] [place] [address] Pharmacist Pharmacy 03/08/20 Learning And Development Consultant Relationship Specialty Start Date End Date George Mata MD [address] [place] [address] PCP - General 07/28/07 Consult[facility], [facility] [address] [place] [address] Physician Cardiology 10/20/19 13, Pharmacist [id number] [place] [address] Pharmacist Pharmacy 03/08/20 Learning And Development Consultant Relationship Specialty Start Date End Date George Mata MD [address] [place] [address] PCP - General 07/28/07 [facility], [facility] [address] [place] [address] Physician Cardiology 10/20/19 13, Pharmacist [address] [place] [address] Pharmacist Pharmacy 03/08/20 Learning And Development Consultant Relationship Specialty Start Date End Date George Mata MD [address] [place] [address] PCP - General 07/28/07 Consult[facility], [facility] [address] [place] [address] Physician Cardiology 10/20/19 13, Pharmacist [id number] [place] [address] Pharmacist Pharmacy 03/08/20 Learning And Development Consultant Relationship Specialty Start Date End Date George Mata MD [address] [place] [address] PCP - General 07/28/07 Consult[facility], [facility] [address] [place] [address] Physician Cardiology 10/20/19 13, Pharmacist [id number] [place] [address] Pharmacist Pharmacy 03/08/20 Learning And Development Consultant Relationship Specialty Start Date End Date George Mata MD [address] [place] [address] PCP - General 07/28/07 Consult[facility], [facility] [address] [place] [address] Physician Cardiology 10/20/19 13, Pharmacist [id number] [place] [address] Pharmacist Pharmacy 03/08/20 Learning And Development Consultant Relationship Specialty Start Date End Date George Mata MD [address] [place] [address] PCP - General 07/28/07 Consult[facility], [facility] [address] [place] [address] Physician Cardiology 10/20/19 13, Pharmacist [id number] [place] [address] Pharmacist Pharmacy 03/08/20 Learning And Development Consultant Relationship Specialty Start Date End Date George Mata MD [address] [place] [address] PCP - General 07/28/07 Consult[facility], [facility] [address] [place] [address] Physician Cardiology 10/20/19 13, Pharmacist [id number] [place] [address] Pharmacist Pharmacy 03/08/20 Learning And Development Consultant Relationship Specialty Start Date End Date George Mata MD [address] [place] [address] PCP - General 07/28/07 Consult[facility], [facility] [address] [place] [address] Physician Cardiology 10/20/19 13, Pharmacist [id number] [place] [address] Pharmacist Pharmacy 03/08/20 Learning And Development Consultant Relationship Specialty Start Date End Date George Mata MD [address] [place] [address] PCP - General 07/28/07 Consult[facility], [facility] [address] [place] [address] Physician Cardiology 10/20/19 13, Pharmacist [id number] [place] [address] Pharmacist Pharmacy 03/08/20 Learning And Development Consultant Relationship Specialty Start Date End Date George Mata MD [address] [place] [address] PCP - General 07/28/07 Consultants, [facility] [address] [place] [address] Physician Cardiology 10/20/19 13, Pharmacist [address] [place] [address] Pharmacist Pharmacy 03/08/20 Learning And Development Consultant Relationship Specialty Start Date End Date George Mata MD [address] [place] [address] PCP - General 07/28/07 Consult[facility], [facility] [address] [place] [address] Physician Cardiology 10/20/19 13, Pharmacist [address] [place] [address] Pharmacist Pharmacy 03/08/20 Learning And Development Consultant Relationship Specialty Start Date End Date George Mata MD [address] [place] [address] PCP - General 07/28/07 Consult[facility], [facility] [address] [place] [address] Physician Cardiology 10/20/19 13, Pharmacist [id number] [place] [address] Pharmacist Pharmacy 03/08/20 Team Status: Active Member Role Status Dates Dr. George Mata MD Family Provider Active Dr. George Mata MD Primary Care Provider Active Team Status: Inactive Member Role Status Dates Dr. George Mata MD Primary Care Provider Active Dr. Faizan Pierce MD Attending Provider, Referring Provider Active Learning And Development Consultant Relationship Specialty Start Date End Date George Mata MD [address] [place] [address] PCP - General 07/28/07 [facility], [facility] [address] [place] [address] Physician Cardiology 10/20/19 13, Pharmacist [address] [place] [address] Pharmacist Pharmacy 03/08/20 Learning And Development Consultant Relationship Specialty Start Date End Date George Mata MD [address] [place] [address] PCP - General 07/28/07 Consult[facility], [facility] [address] [place] [address] Physician Cardiology 10/20/19 13, Pharmacist [id number] [place] [address] Pharmacist Pharmacy 03/08/20 Team Status: Inactive Member Role Status Dates Dr. George Mata MD Primary Care Provider Active Dr. Elmer Rousseau MD Attending Provider, Referring Provider Active Learning And Development Consultant Relationship Specialty Start Date End Date George Mata MD [address] [place] [address] PCP - General 07/28/07 Consult[facility], [facility] [address] [place] [address] Physician Cardiology 10/20/19 13, Pharmacist [address] [place] [address] Pharmacist Pharmacy 03/08/20 Learning And Development Consultant Relationship Specialty Start Date End Date George Mata MD [address] [place] [address] PCP - General 07/28/07 Consult[facility], [facility] [address] [place] [address] Physician Cardiology 10/20/19 13, Pharmacist [id number] [place] [address] Pharmacist Pharmacy 03/08/20 Learning And Development Consultant Relationship Specialty Start Date End Date George Mata MD [address] [place] [address] PCP - General 07/28/07 Consult[facility], [facility] [address] [place] [address] Physician Cardiology 10/20/19 13, Pharmacist [address] [place] [address] Pharmacist Pharmacy 03/08/20 Learning And Development Consultant Relationship Specialty Start Date End Date George Mata MD [address] [place] [address] PCP - General 07/28/07 Consult[facility], [facility] [address] [place] [address] Physician Cardiology 10/20/19 13, Pharmacist [address] [place] [address] Pharmacist Pharmacy 03/08/20 Learning And Development Consultant Relationship Specialty Start Date End Date George Mata MD [address] [place] [address] PCP - General 07/28/07 Consultants, [facility] [address] [place] [address] Physician Cardiology 10/20/19 13, Pharmacist [id number] [place] [address] Pharmacist Pharmacy 03/08/20 Learning And Development Consultant Relationship Specialty Start Date End Date George Mata MD [address] [place] [address] PCP - General 07/28/07 Consultants, [facility] [address] [place] [address] Physician Cardiology 10/20/19 13, Pharmacist [id number] [place] [address] Pharmacist Pharmacy 03/08/20 Learning And Development Consultant Relationship Specialty Start Date End Date George Mata MD [address] [place] [address] PCP - General 07/28/07 Consultants, [facility] [address] [place] [address] Physician Cardiology 10/20/19 13, Pharmacist [address] [place] [address] Pharmacist Pharmacy 03/08/20 Learning And Development Consultant Relationship Specialty Start Date End Date George Mata MD [address] [place] [address] PCP - General 07/28/07 Consultants, [facility] [address] [place] [address] Physician Cardiology 10/20/19 13, Pharmacist [phone] [place] [address] Pharmacist Pharmacy 03/08/20 Learning And Development Consultant Relationship Specialty Start Date End Date George Mata MD [address] [place] [address] PCP - General 07/28/07 Consultants, [facility] [address] [place] [address] Physician Cardiology 10/20/19 13, Pharmacist [id number] [place] [address] Pharmacist Pharmacy 03/08/20 Learning And Development Consultant Relationship Specialty Start Date End Date George Mata MD [address] [place] [address] PCP - General 07/28/07 Consultants, [facility] [address] [place] [address] Physician Cardiology 10/20/19 13, Pharmacist [address] [place] [address] Pharmacist Pharmacy 03/08/20 Paola Blue, BUSINESS PROFESSOR.COMMERCIAL MAINTENANCE TECHNICIAN [address] [place] [address] Reel And Rewinder Operator Internal Medicine 07/18/24 Learning And Development Consultant Relationship Specialty Start Date End Date George Mata MD [address] [place] [address] PCP - General 07/28/07 Consultants, [facility] [address] [place] [address] Physician Cardiology 10/20/19 13, Pharmacist [phone] [place] [address] Pharmacist Pharmacy 03/08/20 Paola Blue, BUSINESS PROFESSOR.COMMERCIAL MAINTENANCE TECHNICIAN [address] [place] [address] Reel And Rewinder Operator Internal Medicine 07/18/24 Learning And Development Consultant Relationship Specialty Start Date End Date George Mata MD [address] [facility] [place] [address] PCP - General 07/28/07 Consultants, [facility] [address] [place] [address] Physician Cardiology 10/20/19 13, Pharmacist [phone] [place] [address] Pharmacist Pharmacy 03/08/20 Paola Blue, BUSINESS PROFESSOR.COMMERCIAL MAINTENANCE TECHNICIAN [address] [place] [address] Reel And Rewinder Operator Internal Medicine 07/18/24 Learning And Development Consultant Relationship Specialty Start Date End Date George Mata MD [address] [place] [address] PCP - General 07/28/07 Consultants, [facility] [address] [place] [address] Physician Cardiology 10/20/19 13, Pharmacist [phone] [place] [address] Pharmacist Pharmacy 03/08/20 Paola Blue, BUSINESS PROFESSOR.COMMERCIAL MAINTENANCE TECHNICIAN [address] [place] [address] Reel And Rewinder Operator Internal Medicine 07/18/24 Learning And Development Consultant Relationship Specialty Start Date End Date George Mata MD [address] [place] [address] PCP - General 07/28/07 Consultants, [facility] [address] [place] [address] Physician Cardiology 10/20/19 13, Pharmacist [phone] [place] [address] Pharmacist Pharmacy 03/08/20 Paola Blue, BUSINESS PROFESSOR.COMMERCIAL MAINTENANCE TECHNICIAN [address] [place] [address] Reel And Rewinder Operator Internal Medicine 07/18/24 Learning And Development Consultant Relationship Specialty Start Date End Date George Mata MD [address] [place] [address] PCP - General 07/28/07 Consultants, [facility] [address] [place] [address] Physician Cardiology 10/20/19 13, Pharmacist [phone] [place] [address] Pharmacist Pharmacy 03/08/20 Paola Blue, BUSINESS PROFESSOR.COMMERCIAL MAINTENANCE TECHNICIAN [address] [place] [address] Reel And Rewinder Operator Internal Medicine 07/18/24 Learning And Development Consultant Relationship Specialty Start Date End Date George Mata MD [address] [place] [address] PCP - General 07/28/07 Consultants, [facility] [address] [place] [address] Physician Cardiology 10/20/19 13, Pharmacist [phone] [place] [address] Pharmacist Pharmacy 03/08/20 Paola Blue, BUSINESS PROFESSOR.COMMERCIAL MAINTENANCE TECHNICIAN [address] [facility] [place] [address] Reel And Rewinder Operator Internal Medicine 07/18/24 Learning And Development Consultant Relationship Specialty Start Date End Date George Mata MD [address] [place] [address] PCP - General 07/28/07 Consultants, [facility] [address] [place] [address] Physician Cardiology 10/20/19 13, Pharmacist [phone] [place] [address] Pharmacist Pharmacy 03/08/20 Paola Blue, BUSINESS PROFESSOR.COMMERCIAL MAINTENANCE TECHNICIAN [address] [place] [address] [facility] Internal Medicine 07/18/24 Learning And Development Consultant Relationship Specialty Start Date End Date George Mata MD [address] [place] [address] PCP - General 07/28/07 Consultants, [facility] [address] [place] [address] Physician Cardiology 10/20/19 13, Pharmacist [phone] [place] [address] Pharmacist Pharmacy 03/08/20 Paola Blue, BUSINESS PROFESSOR.COMMERCIAL MAINTENANCE TECHNICIAN [address] [place] [address] Reel And Rewinder Operator Internal Medicine 07/18/24 Team Status: Active Member [...] October 17, 2024 End: October 17, 2024 Learning And Development Consultant Relationship Specialty Start Date End Date George Mata MD [address] [place] [address] PCP - General 07/28/07 Consultants, [facility] [address] [place] [address] Physician Cardiology 10/20/19 13, Pharmacist [phone] [place] [address] Pharmacist Pharmacy 03/08/20 Paola Blue, BUSINESS PROFESSOR.COMMERCIAL MAINTENANCE TECHNICIAN [address] [facility] [place] [address] Reel And Rewinder Operator Internal Medicine 07/18/24 Learning And Development Consultant Relationship Specialty Start Date End Date George Mata MD [address] [facility] [place] [address] PCP - General 07/28/07 Consultants, [facility] [address] [place] [address] Physician Cardiology 10/20/19 13, Pharmacist [phone] [place] [address] Pharmacist Pharmacy 03/08/20 Paola Blue, BUSINESS PROFESSOR.COMMERCIAL MAINTENANCE TECHNICIAN [address] [place] [address] Reel And Rewinder Operator Internal Medicine 07/18/24 Team Status: Inactive Member Role Status Dates Dr. George Mata MD Primary Care Provider Active Start: December 16, 2024 End: December 16, 2024 Dr. Mackenzie Iverson DO Attending Provider Active Start: December 16, 2024 End: December 16, 2024 Dr. Mackenzie Iverson DO Referring Provider Active Start: December 16, 2024 End: December 16, 2024 Learning And Development Consultant Relationship Specialty Start Date End Date George Mata MD [address] [place] [address] PCP - General 07/28/07 Consultants, [facility] [address] [place] [address] Physician Cardiology 10/20/19 13, Pharmacist [phone] [place] [address] Pharmacist Pharmacy 03/08/20 Paola Blue, BUSINESS PROFESSOR.COMMERCIAL MAINTENANCE TECHNICIAN [address] [place], [place] [address] Reel And Rewinder Operator Internal Medicine 07/18/24 Learning And Development Consultant Relationship Specialty Start Date End Date George Mata MD [address] [place] [address] PCP - General 07/28/07 Consultants, [facility] [address] [place] [address] Physician Cardiology 10/20/19 13, Pharmacist [phone] [place] [address] Pharmacist Pharmacy 03/08/20 Paola Blue, BUSINESS PROFESSOR.COMMERCIAL MAINTENANCE TECHNICIAN [address] [place] [address] Reel And Rewinder Operator Internal Medicine 07/18/24 Goals (unrecognized section and content) Goals may be documented in a n alternate section (unrecognized sect ion and content) No Status Records FoundNo Status Records FoundNo Status Records FoundNo Status Records FoundNo Status Records Found INFORMATION SOURCE (unrecogn ized section and content) DATE CREATED AUTHOR 03/12/2024 [facility] ([place]) DATE CREATED AUTHOR AUTHOR'S ORGANIZ ATION 12/21/2024 [facility] DATE CREATED AUTHOR AUTHOR'S ORGANIZ ATION 01/10/2025 [facility] DATE CREATED AUTHOR AUTHOR'S ORGANIZ ATION 02/27/2025 [facility] DATE CREATED AUTHOR AUTHOR'S ORGANIZ ATION 03/02/2025 [facility] FOR RECORDS PERTAINING TO PATIENTS WHO [...] BE BASED ON THE PRIMARY CLINICAL RECORDS. [facility]. provides no warranty or guarantee of the accuracy or completeness of information in this document.
--- NOTE | 2025-03-04 21:01 | HP.PCM.HOS_ITS ---
HPI - General General Date of Admission: 03/04/25 Date of Service: 03/04/25 Chief Complaint: edema and weight gain. HPI Narrative MARGARITO VALVERDE, is a 79 M who presents with edema and weight gain. This is an 79-year-old male with history of HFrEF who underwent an AICD (a biventricular cardioverter defibrillator) replacement 1 week ago. The previous pacemaker was 12 years old and was due for change and was changed over a week ago. Patient went home that same day. Patient has developed increasing shortness of breath, lower extremity edema and weight gain since the discharge. I presented to [facility] and was diagnosed with CHF exacerbation as well as with elevated troponins. Patient requested transfer to [facility] as that is where his AICD was placed. They contacted [facility], had a accepting physician but no readily available beds and possibly not until the at the earliest. Therefore, the hospital service at [facility] was contacted for admission. [facility] Medical History Wears hearing aid Wears glasses Wears dentures Anxiety History of steroid therapy Diabetes Arthritis High cholesterol Back pain Syncope History of IBS Gastric reflux Former smoker Asthma COPD (chronic obstructive pulmonary disease) Hoarseness Shortness of breath on exertion History of pain when walking History of echocardiogram History of stress test Hypertension Cardiology follow-up encounter History of CHF (congestive heart failure) History of heart attack History of atrial fibrillation Hx of fracture of ankle Hx of cardiac pacemaker Home Medications ?Medication ?Instructions ?Recorded ?Last Taken ?Type albuterol sulfate 90 mcg/actuation 90 mcg IH Q4H PRN P RN Sob &/Or 02/16/17 02/15/17 History breath activated powder inhaler Wheezing (ProAir RespiClick) aspirin 81 mg chewable tablet 81 mg PO DAILY@0800 BLOD THINNER 02/16/17 04/01/17 History fluticasone 250 mcg-salmeterol 50 1 puff inhalation BI D ASTHMA/COPD 02/16/17 02/16/17 History mcg/dose blistr powdr for inhalation (Advair Diskus) nitroglycerin 0.4 mg sublingual 0.4 mg sublingual PRN PRN CHEST 02/16/17 Unknown History tablet (Nitrostat) PAIN pantoprazole 20 mg tablet,delayed 20 mg PO DAILY ACID REFLUX 02/16/17 05/06/21 05:00 History release licdfrwyz-cdqvsowew-tbkwfclo-scop 16.2 mg PO Q4H PRN P RN Diarrhea 02/16/17 Unknown History 16.2 mg-0.1037 mg-0.0194 mg tablet () warfarin 5 mg tablet (Coumadin) 2.5 mg PO SUTUWETHSA A FIB 02/16/17 03/30/17 History atorvastatin 40 mg tablet 40 mg PO QHS HIGH CHOLESTERO L 12/12/17 Unknown History bumetanide 1 mg tablet 1 mg PO QODAY 05/02/21 Unkno wn History sacubitril 24 mg-valsartan 26 mg 0.5 tab PO DAILY 04/1105/06/21 05:00 History tablet (Entresto) sacubitril 24 mg-valsartan 26 mg 1 tab PO QHS 05/02/21 Unknown History tablet (Entresto) warfarin 5 mg tablet 5 mg PO MOFR 05/02/21 Unknow n History ciprofloxacin HCl 250 mg tablet 250 mg PO BID 03/04/25 Unknown History metoprolol succinate 25 mg 25 mg PO DAILY 03/04/25 Unk nown History tablet,extended release 24 hr Allergy/AdvReac Type Severity Reaction Status Date / Time No Known Allergies Allergy Verified 03/04/25 11:20 Family History (Updated 03/04/25 @ 21:[address] Abimael Donaldson DO) Other Heart disease Family History no significant family his Surgical History Hx of aortic valve replacement History of cardiac catheterization Hx of appendectomy Hx of heart artery stent Hx of mitral valve replacement History of quadruple bypass Hx of colonoscopy History of esophagogastroduodenoscopy (EGD) Social History Smoking Status: Current some day smoker tobacco type: cigarettes and smokeless tobacco substance use type: does not use ROS ROS Narrative No fever or chills. Eating well and drinking well. Patient has bruising on his chest from his AICD replacement but that is improving. All review of systems were negative except as mentioned above in the history of present illness and the other review of systems. Vital Signs Vital Signs Vital Signs: 03/04/25 11:17 03/04/25 11:28 03/04/25 12:10 Temperature 36.5 C L Temperature Source Oral Pulse Rate 70 Respiratory Rate 18 Respiratory Effort Normal Short of Breath Respiratory Pattern Normal Blood Pressure 111/85 H Blood Pressure Mean 93 Pulse Ox 99 Oxygen Delivery Method Room Air Room Air 03/04/25 13:17 03/04/25 14:59 03/04/25 15:00 Temperature Temperature Source Pulse Rate 69 70 71 Respiratory Rate 16 15 Respiratory Effort Respiratory Pattern Blood Pressure 106/69 115/73 Blood Pressure Mean 81 87 Pulse Ox 98 99 Oxygen Delivery Method Room Air Room Air 03/04/25 15:00 03/04/25 15:15 03/04/25 15:30 Temperature Temperature Source Pulse Rate 70 72 70 Respiratory Rate 15 14 12 Respiratory Effort Respiratory Pattern Blood Pressure 115/73 114/72 107/78 Blood Pressure Mean 86 86 88 Pulse Ox Oxygen Delivery Method 03/04/25 15:45 03/04/25 16:00 03/04/25 16:15 Temperature Temperature Source Pulse Rate 71 69 72 Respiratory Rate 15 17 16 Respiratory Effort Respiratory Pattern Blood Pressure 109/71 109/77 112/88 H Blood Pressure Mean 84 88 96 Pulse Ox Oxygen Delivery Method 03/04/25 16:30 03/04/25 16:45 03/04/25 17:00 Temperature Temperature Source Pulse Rate 66 70 72 Respiratory Rate 20 H 18 16 Respiratory Effort Respiratory Pattern Blood Pressure 122/76 H 107/73 110/77 Blood Pressure Mean 90 84 87 Pulse Ox Oxygen Delivery Method 03/04/25 19:00 Temperature Temperature Source Pulse Rate 70 Respiratory Rate 16 Respiratory Effort Respiratory Pattern Blood Pressure 121/83 H Blood Pressure Mean 95 Pulse Ox 98 Oxygen Delivery Method Room Air Weight Weight: 84.8 kg Body Mass Index (BMI) 27.6 Physical Exam Narrative POCUS: Indication is for heart failure. Using curvilinear probe via the FAST exam (no phased-array probe on the POCUS machine in the emergency room) showed dilated IVC that did not compress with inspiration. Heart was seen in the xiphoid view and was limited as it was a curvilinear probe but appeared to be globally reduced. Using linear probe the lungs, B-lines were noted to in the anterior lateral aspects of the lung more so on the right than on the left. No pneumothorax was appreciated. Also using curvilinear probe, the kidneys were visualized and were grossly normal without any hydronephrosis. Const alert and no apparent distress HEENT normocephalic and head/scalp atraumatic Resp normal respiratory effort, no retractions, no use of accessory muscles and clear to auscultation bilaterally Cardio regular rate, regular rhythm, S1 normal heart sound and S2 normal heart sound GI normal to inspection, nondistended, normoactive bowel sounds, soft to palpation, non-tender and non-distended Extremity Extremity Narrative: 2+ lower extremity edema Skin Skin Narrative: Skin tear on right anterior colmenares. Ecchymosis from his shoulder down to his lower chest on the left side and with some very degrees of aging with yellowing of the skin from the old bruising. Neuro moves all extremities Sensorium / Orientation: awake and alert Psych affect normal Results Lab / Micro Data Attestation: I reviewed the patient's lab results. 03/04/25 11:30 03/04/25 11:30 Labs: Laboratory Results - last 24 hr 03/04/25 11:30: WBC 7.7, RBC 3.96 L, Hgb 11.1 L, Hct 34.9 L, MCV 88.1, MCH 28.0, MCHC 31.8 L, RDW Std Deviation 54.9 H, RDW Coeff of Drew 17.2 H, Plt Count 140 L, MPV 10.5, Immature Gran % (Auto) 0.300, Neut % (Auto) 77.0 H, Lymph % (Auto) 9.0 L, [place] % (Auto) 11.3 H, Eos % (Auto) 1.9, Baso % (Auto) 0.5, Absolute Neuts (auto) 5.9, Absolute Lymphs (auto) 0.69 L, Nucleated RBC % 0, PT 19.4 H, INR 1.6, Sodium 139, Potassium 3.7, Chloride 100, Carbon Dioxide 24.0, Anion Gap 15, BUN 41 H, Creatinine 1.75 H, Estim Creat Clear Calc 33.67 L, Est GFR (MDRD) Non- Af 39 L, BUN/Creatinine Ratio 23.2 H, Glucose 118 H, Calcium 9.5, Magnesium 2.4 H, Troponin T High Sens 122 H*, NT pro BNP II 2790 H 03/04/25 13:58: Troponin T Hi Sens 2 Hr 99 H* 03/04/25 15:40: Troponin T Hi Sens 4Hr 101 H* EKG Initial EKG: Attestation: I personally reviewed and interpreted this EKG as follows: Prior EKG tracings: available for review (Ventricular paced rhythm.) Imaging Radiology Impression Chest X-Ray 03/04/25 12:10 IMPRESSION: Pulmonary findings as above. Reading Location: [facility] Assessment & Plan Assessment/Plan (1) HFrEF (heart failure with reduced ejection fraction): PLAN: Patient had echocardiogram from November 18, 2024 at [facility] (this was done via [facility]) and LV was severely reduced with an EF of 30%. Hypokinesis of the inferior myocardium. Hypokinesis of the inferior septal myocardium. Hypokinesis of the apical anterior lateral myocardium. Prosthetic aortic valve peak systolic velocity of 1.5 m/s bioprosthetic mitral valve severely dilated left atrium. RV systolic pressure of 42 mmHg. Moderate regurgitation of the tricuspid valve. Right atrium dilated. Patient takes Bumex every other day at home. Patient received at 1 mg IV Bumex in the emergency room this evening. Will continue with IV Bumex twice daily. Additionally, fluid restrict 1.5 L daily, daily weights. Hold off on repeating echo as patient had an echocardiogram in November of this year. Currently the patient is waiting on an open bed at [facility]. Did advise patient that we were told that it would be another day but is possible if it does not happen in a reasonable time as possible patient may be able to be discharged from [facility] Additionally, continue with metoprolol succinate and Entresto (2) Elevated troponin: PLAN: Suspect demand ischemia from heart failure but also skewed upwards given CKD. No additional workup at this time unless he becomes symptomatic with chest pain. PLAN: Plan Status post AICD: Had replacement performed on by Dr. Toussaint at [facility]. Patient does have bruising on his left anterior chest but he states that is overall improving. Atrial fibrillation: On warfarin. Currently INR is 1.6. Will continue with warfarin as well as metoprolol succinate. Status post aortic and mitral valve replacements: CKD 3B: Monitor closely while the patient is being diuresed. VTE prophylaxis: The patient is on warfarin his INR is currently subtherapeutic and so we will add enoxaparin. Advance care planning: Spent additional 20 minutes where I discussed CODE STATUS with the patient. Patient stated that he want to have chest compressions and CPR in the event of cardiac arrest but did not want to be on life support. Explained to him that if he were to go into cardiac arrest and were able to do CPR and have successful ROSC, it would be complicated if he did not allow us to put him on a ventilator as he may not be mentally aware to be able to breathe on his own spontaneously. After further discussion patient did agree to being full code. I did tell patient if he did not want to be put on ventilator that he should defer CPR but wishes to have that and therefore is full code. Charges/Coding Visit Charges Inpatient E&M: 78823 Init Hosp L3 Procedures Hospitalists Procedures: 44460 Advncd Care Plan 30 Min
--- OUTSIDE RECORDS SUMMARY | 2025-03-04 21:15 | XMS RPT_ITS | CCD ---
Author Organization [facility] Care Team Providers Care Lumber Driver Name Role Phone Madisyn Lieberman Unavailable Unavailable Naun PONCE, Kaveh Camp Unavailable Johnson, RN, Gladys Parrish Unavailable Unavailable Johnson, QUE, Gladys Parrish Unavailable Unavailable DR GEORGE MATA MD Primary Care Physician George Mata MD Primary Care Provider Consultants, [facility] Unavailable 13, Pharmacist Unavailable George Mata MD Primary Care Provider Consultants, [facility] Unavailable 13, Pharmacist Unavailable Consultants, [facility] Unavailable George Mata MD Primary Care Provider Consultants, [facility] Unavailable 13, Pharmacist Unavailable DR GEORGE MATA MD Primary Care Physician ( [phone] George Mata MD Primary Care Provider STALIN PONCE, BRIONNA Lee Attending Unavailable DR GEORGE MATA MD Primary Care Unavaila corby Blue APRN.SLEEVE TURNER, Paola M Unavailable [phone] Dr. George Mata MD Primary Care Provider Dr. Faizan Pierce MD Attending Provider Dr. Faizan Pierce MD Referring Provider Dr. Mackenzie Iverson DO Attending Provider Kishor NUNEZ, Dr. Mann Referring Provider [phone] George Mata Primary Care Unavailable Sol Glez Attending Unavailable Sol Glez Referring Unavailable Adolfo, George Primary Care Unavailable Faizan Pierce Attending Unavailable Faizan Pierce Referring Unavailable Mackenzie Iverson Attending Unavailable Adolfo, George Primary Care Unavailable Mackenzie Iverson Attending Unavailable Mackenzie Iverson Referring Unavailable Adolfo, George Primary Care Unavailable ADOLFO PONCE, DR VAZQUEZ Primary Care Unavailleodan ROSE MD, GATITO RAZA Attending Unavailable MAUDE PONCE, VERONIQUE Alcocer Attending Unavailable ADOLFO PONCE, DR VAZQUEZ Primary Care Unavaila corby TOUSSAINT MD, VERONIQUE Alcocer Attending Unavailable ADOLFO PONCE, DR VAZQUEZ Primary Care Unavailleodan BEE DO, RASHEEDA Craven Consulting Unavailable JESÚS PONCE, ANTHONY Patel Consulting Unavailfrance MATA MD, DR VAZQUEZ Primary Care Unavailleodan GANT MD, BRIONNA Lee Attending Unavailable MAUDE PONCE, VERONIQUE Alcocer Attending Unavailable ADOLFO PONCE, DR VAZQUEZ Primary Care Unavailleodna MATA MD, DR VAZQUEZ Primary Care Unavailleodan GANT MD, BRIONNA Lee Consulting Unavailable KEYANA PONCE, DR GONZALEZ Admitting Unavailab Lawanda PONCE, DR GONZALEZ Attending Unavailab Michelle PONCE, ARIELLE Consulting Unavailable CE PONCE, Dr REAVES Consulting Unavailable KEYANA PONCE, DR GONZALEZ Consulting UnavailGEORGE Kelley Attending Unavailable ADOLFO, GEORGE Goodwin Primary Care Unavailable ADOLFO, GEORGE Goodwin Attending Unavailable ADOLFO, GEORGE Goodwin Primary Care Unavailable ADOLFO, GEORGE Goodwin Attending Unavailable ADOLFO, GEORGE Goodwin Primary Care Unavailable ADOLFO, GEORGE Goodwin Attending Unavailable ADOLFO, GEORGE Goodwin Primary Care Unavailable ADOLFO, GEORGE Goodwin Referring Unavailable ADOLFO, GEORGE Goodwin Primary Care Unavailable ADOLFO, GEORGE Goodwin Primary Care Unavailable Adolfo PONCE, Dr. Vazquez Primary Care Provider Dr. Nash Orosco DO Emergency Provider [phone] Dr. Abimael Donaldson DO Admit Provider [phone] Dr. Abimael Donaldson DO Attending Provider [phone] Medications Current Medications Medication Drug Class(es) Dates Sig (Normalized) Sig (Original) acetaminophen 325 mg oral tablet (14 sources) Start: 12-31-2024 Tylenol 325 mg oral tablet Dose : 650 mg = 2 tab(s), Oral, q4h, PRN as needed for pain Start Date: 12/31/24 Status: Ordered Repeat number: 1 Start: 12-31-2024 take 2 tablets by mo [facility] every four hours as needed acetaminophen (TYLENOL) 325 mg tablet Take 650 mg by mouth every 4 hours as needed. 12/31/2024 Active [id number] actuat albuterol 0.09 mg/actuat metered dose [...] (1 source) Xanthine Oxidase Inhibitor Start: 04-27-20 allopurinol 100 mg oral tablet Dose : [...] aspirin 81 mg delayed release oral tablet (18 sources) Nonsteroidal Anti-inflammatory Drug Start: 12-24-19 aspirin [...] TBEC One tablet by mouth daily ASPIRIN [id number] Kaveh Magallon MD Start: 02-16-2017 take 1 tablet by mando th once daily Aspirin 81 MG tablet,chewable Active 81 mg PO DAILY@0800 February 16, 2017 12:00am BLOD THINNER atorvastatin 40 mg oral tablet (20 sources) HMG-CoA Reductase Inhibitor Start: 12-12-2017 End: 08-09-2024 take 1 tablet by mouth at bedtime Atorvastatin 40 MG tablet Active 40 mg PO AT BEDTIME December 12, 2017 12:00am HIGH CHOLESTEROL Start: 03-25-2017 ATORVASTATIN C ALCIUM 20 MG TABS ATORVASTATIN CALCIUM [id number] Kaveh Magallon MD Comment on above: Take 1 tablet by mando th once daily. atropine sulfate 0.0194 mg / hyoscyamine sulfate 0.1037 mg / PHENobarbital 16.2 mg / scopolamine hydrobromide 0.0065 mg oral tablet (20 sources) Anticholinergic, Cholinergic Muscarinic Antagonist Start: End: take 1 tablet by mouth every six hours as needed enpmuyeap-pknodi-pk ropine-scop () 16.2-0.1037 -0.0194 mg per tablet Indications: Irritable bowel syndrome, unspecified type Take 1 tablet by mouth every 6 hours as needed. 240 tablet 11/17/2024 Active Start: 01-17-2021 End: 06-19-2022 take 1 tablet by mouth every six hours as needed bqzaqcuhc-wywsqt-qpxdpnrk-scop ( ) 16.2-0.1037 -0.0194 mg per tablet Indications: Irritable bowel syndrome, unspecified type Take 1 tablet by mouth every 6 hours as needed. 240 tablet 01/17/2021 11/28/2021 Discontinued Start: 02-16-2017 take 1 tablet by mando th every four hours as needed for diarrhea Bqalendam-Uypvrt-Gatlarba-Scop ( ) 16.2 MG tablet Active 16.2 [...] on above: Take 1 capsule by mo [facility] three times a day as needed for cough for up to 7 days. Blood-Glucose Meter monitoring kit (20 sources) Start: 09-17-2016 Blood-Glucose Meter monitoring kit Indications: Controlled type 2 diabetes mellitus without complication, without long-term current use of insulin ([facility]) Glucose Meter of Choice - Kit - Dx: Type 2 DM - Controlled E11.9 1 Each 09/17/2016 Active Start: 09-17-2016 Blood-Glucose Meter monitoring kit Indications: Controlled type 2 diabetes mellitus without complication, without long-term current use of insulin ([facility]) Glucose Meter of Choice - Kit - [...] on above: Take 1 tablet by mando every other day. One tablet every oth er day; OR daily, depending on weight gain, fluid retention. ciprofloxacin 250 mg oral tablet (2 sources) Quinolone Antimicrobial Start: 02-25-20 End: 03-06-20 take 1 tablet by mouth twice daily Ciprofloxacin Hcl 250 mg tablet Active 250 mg PO TWICE A DAY March 04, 2025 12:00am colchicine 0.6 mg oral tablet (1 source) Start: 07-31-20 colchicine 0.6 mg oral tablet Dose : 0.6 mg = 1 tab(s), Oral, qDay, # 30 tab(s), 0 Refill(s), Pharmacy: [facility], 175.3, cm, 07/25/21 20:25:00 EST, [...] Start: 08-09-2024 take 1 puff(s) by mo uth twice [...] TWICE A DAY February 16, 2017 12:00am ASTHMA/COPD Start: 02-16-2017 take 1 puff(s) by in [...] succinate 25 mg extended release oral tablet (18 sources) beta-Adrenergic Brett Start: 03-04-2025 take 1 tablet by mouth once daily Metoprolol Succinate 25 mg tablet extended release 24 hr Active 25 mg PO DAILY March 04, 2025 12:00am Start: 01-04-2025 End: 01-04-2025 take 1 tablet [...] each, # 22 gram(s), 0 Refill(s), Pharmacy: [facility], Ointment, 173, cm, 02/13/25 9:58:00 EDT, [...] sources) Nitrate Vasodilator Start: 02-16-2017 End: 11-01-2024 Nitroglycerin (Nitrostat) 0.4 MG tablet, sublingual Active 0.4 mg SL NEEDED as needed for CHEST PAIN February 16, 2017 12:00am Start: 10-04-2015 Nitrostat 0.4 mg sublingual tablet [...] Proton Pump Inhibitor Start: 3 End: 4 take 1 tablet by mouth once daily Pantoprazole 20 MG tablet,delayed release (DR/EC) Active 20 mg PO DAILY February 16, 2017 12:00am ACID REFLUX Comment on above: Take 1 tablet by mando th daily before breakfast. Take on empty stomach, 1/2 hr before meal. perflutren lipid microspheres 1.3 mL in NaCl (PF) 0.9% 10 mL injection (DEFINITY) (1 source) Start: 2 End: 3 perflutren lipid microspheres 1.3 mL in NaCl (PF) 0.9% 10 mL injection (DEFINITY) Vowzmhnyn-Whriwu-Ikpa pine-Scop () 16.2 MG tablet (1 source) Start: 7 take 1 tablet by mouth every four hours as needed for diarrhea Gfmehbmfv-Mbqawm-Gaj opine-Scop () 16.2 MG tablet Active 16.2 mg PO EVERY 4 HOURS NEEDED as needed for Diarrhea February 16, 2017 12:00am predniSONE 10 mg oral tablet (6 sources) [...] Comment on above: Take 4 tablets by [facility] once daily for 2 days, THEN 2 tablets once daily for 2 days, THEN 1 tablet once daily for 2 days. Take 1 tablet by [facility] once daily for 5 days. [...] BID, # 120 tab(s), 0 Refill(s), Pharmacy: [facility], Ventricular tachycardia, 175.3, cm, 03/10/24 10:01:00 EDT, Height, kg, 03/10/24 10:01:00 EDT, Dosing Weight Start Date: 10/29/24 Status: Ordered Quantity: 120.0 Unit: tab(s) Repeat number: 1 Indications: Ventricular tachycardia; Start: 03-31-2022 sotalol 80 mg oral tablet Dose : 160 mg = 2 tab(s), Oral, BID, # 360 tab(s), 3 Refill(s), Pharmacy: [facility], Ventricular tachycardia, 175.3, cm, 12/30/21 [...] BID, # 120 tab(s), 3 Refill(s), Pharmacy: [facility], 175.3, cm, 07/25/21 20:25:00 EST, Height, kg, 07/25/21 20:25:00 EST, Dosing Weight Start Date: 07/31/21 Status: Ordered Comment on above: Take 2 tablets by mo [facility] twice daily. spironolactone 25 mg oral [...] qDay, # 30 tab(s), 0 Refill(s), Pharmacy: [facility], 175.3, cm, 03/10/24 10:01:00 EDT, [...] 07/25/21 Status: Ordered Start: 02-16-2017 End: 08-09-2024 Warfarin 5 mg Tablet Active 5 mg PO MOFR May 02, 2021 12:00am Start: 02-16-2017 Warfarin (Coum federico) 5 MG tablet Active 2.5 mg PO OLIVIAUWETHSA February 16, 2017 12:00am AFIB Comment on above: 2.5 mg every Sun, Tu e, Nannette; 5 mg all other days 2.5 mg every Sat,Sun , Tue, Nannette; 5 mg all other days 5 mg every Mon & Fr ; 2.5 mg all other days Wixela Inhub 100 mcg-50 mcg inhalation powder (4 sources) Start: 10-19-2019 take 1 dose by inhalation twice daily Wixela Inhub 100 mcg-50 mcg inhalation powder Dose = 1 puff(s), Inhalation, BID, # 60 EA, 0 Refill(s) Start Date: 10/19/19 Status: Ordered Completed/Discontinued Medications Medication Drug Class(es) Dates Sig (Normalized) Sig (Original) carvedilol 3.125 mg oral tablet (9 sources) alpha-Adrenergic Brett, beta-Adrenergic Brett Start: 10-09-2016 End: 03-04-2025 take 1 tablet by mouth twice daily Carvedilol 3.125 MG tablet Discontinued 3.125 mg PO TWICE A DAY February 16, 2017 12:00am March 04, 2025 11:33am HEART, BLOOD PRESSURE empagliflozin 10 mg oral tablet (13 sources) [...] TABS One tablet by mouth daily FUROSEMIDE [id number] Kaveh Magallon MD 24 hr glipiZIDE 2.5 mg extended release oral tablet (2 sources) Sulfonylurea Start: 03-25-2017 take 1 tablet by mouth once daily GLIPIZIDE ER 2.5 MG [id number] One tablet by mouth daily GLIPIZIDE [id number] Kaveh Magallon MD lisinopril 5 mg oral tablet (2 sources) Angiotensin Converting Enzyme Inhibitor Start: 03-25-2017 LISINOPRIL 5 MG TABS LISINOPRIL [id number] Kaveh Magallon MD nintedanib 150 mg oral [...] Onset: 3 Chronic Comment on above: Lt DEPOSIT CLERK-D [10/29/15, s ds]: [employer] model G148, serial #[id number]. RV lead is [employer] model 0296, serial #[id number] implanted 06/10/2013. RA lead implant on 10/29/2015 is a [employer] model 4470, serial#[id number]. LV lead implant on 10/29/2015 is a [employer] model #4677, serial #[id number]. Congestive heart failure; nonhypertensive (20 sources) Chronic systolic heart failure; Translations: [Congestive heart failure] Onset: 8 10-17-2019 Chronic Comment on above: Patient has known sy stolic CHF, EF about 40%%. Ischemic/valvular. Previous CABG and valve replacement. Coronary atherosclerosis and other heart disease (20 sources) Coronary arteriosclerosis; Translations: [Coronary arteriosclerosis in [place] artery] Onset: 5 04-15-2019 Chronic Comment on above: post PCI to RCA on As stated above he has patent graft the left anterior descending artery. He is vein graft to the RPDA is retrogradely filling from the [place] right coronary artery. His [place] right coronary artery has severe distal lesion [...] the RCA. S/P PTCA and stent of [place] left circumflex artery with PROMUS stent at 04/2009. Coronary atherosclerosis and other heart disease (8 sources) Patient post percutaneous transluminal coronary angioplasty; [...] above: diet controlled Diabetes mellitus without complication (20 sources) Impaired glucose tolerance; Translations: [Impaired glucose tolerance (oral)] Onset: 5 Resolved: 8 12-13-2017 Episodic Diabetes mellitus without complication (1 source) Diabetes [...] encounter] 03-09-2024 Episodic Other aftercare (1 source) halfway (current) use of anticoagulants; Translations: [buttermaker continuous churn (current) use of anticoagulants] Onset: 5 Episodic [...] unspecified; Translations: [Interstitial lung disease (HCC)] Onset: 1 Chronic Other lower respiratory disease (20 sources) [...] source) Obesity, unspecified; Translations: [Obesity, unspecified] Onset: 5 Chronic Other nutritional; endocrine; and metabolic disorders [...] 10-17-2019 Episodic Skin and subcutaneous tissue infections (5 sources) Cellulitis of left forearm; Translations: [Cellulitis of left upper limb] 01-21-2021 Episodic Unclassified (11 sources) Eye glasses, device (physical object) 04-09-2018 Unclassified (11 sources) Hearing aid, device (physical object) 04-09-2018 Comment on above: bilat Unclassified (11 sources) Patient encounter status 03-21-2021 Unclassified (5 sources) Status post valve replacement 12-13-2017 Unclassified (1 source) Other supraventricular tachycardia; Translations: [Other supraventricular tachycardia] Onset: 5 Unclassified (1 source) Permanent atrial fibrillation; Translations: [Permanent atrial fibrillation (HCC)] Onset: 0 Past or Other Problems Problem Classification Problem Date Documented Da te Episodic/Chronic Diverticulosis and diverticulitis (20 sources) Diverticular disease; Translations: [Diverticulosis of intestine, part unspecified, without perforation or abscess without bleeding] Onset: 07-26-2010 Resolved: 01-27-2019 01-27-2019 Chronic Other aftercare (20 sources) Long-term current use of anticoagulant; Translations: [buttermaker continuous churn (current) use of anticoagulants] Onset: 01-26-2019 01-26-2019 Episodic Other aftercare (20 sources) Anticoagulant effect; Translations: [buttermaker continuous churn (current) use of anticoagulants] Onset: 05-02-2013 Resolved: [...] lumbosacral region] Onset: 11-01-2024 11-01-2024 Episodic Unclassified (5 sources) Borderline elevated troponin 04-16-2022 Results Test Name Value Interpretation Reference Range Facility Absolute lymphocyte countOrd ered By: Nash Orosco on 03-04-2025 Lymphocytes Auto (Unsp spec) [#/Vol] 0.69 10*3/uL Low 0.83-4.51 [facility] Absolute neutrophil countOrd ered By: Nash Orosco on 03-04-2025 Neutrophils (Bld) [#/Vol] 5.9 10*3/uL 2.0-7.7 [facility] Anion gap in Serum or Plasma Ordered By: Nash Orosco on 03-04-2025 Anion gap [Moles/Vol] 15 mmol/L 5-15 [facility] Automated lymphocyte count a s percentage of total leukocytesOrdered By: Nash Orosco on 03-04-2025 Lymphocytes/100 WBC Auto (Unsp spec) 9.0 % Low 19-41 [facility] BUN/creatinine ratioOrdered By: Nash Orosco on 03-04-2025 Urea nitrogen/Creatinine [Mass ratio] 23.2 mg/mg High 10-20 [facility] Basophil percentageOrdered B y: Nash Orosco on 03-04-2025 Basophils/100 WBC (Bld) 0.5 % 0-[address] [facility] Carbon dioxide, total [Moles /volume] in Central venous bloodOrdered By: Nash Orosco on 03-04-2025 CO2 [Moles/Vol] 24.0 mmol/L 21.0-32.0 [facility] Chloride assayOrdered By: Aminah Orosco on 03-04-2025 Chloride [Moles/Vol] 100 mmol/L 98-108 [facility] Eosinophil percentageOrdered By: Nash Orosco on 03-04-2025 Eosinophils/100 WBC (Bld) 1.9 % 0-5 [facility] Erythrocyte distribution wid th ratioOrdered By: Nash Orosco on 03-04-2025 Erythrocyte distribution width (RBC) [Ratio] 17.2 % High 11.6-14.6 [facility] Erythrocyte distribution wid th standard deviationOrdered By: Nash Orosco on 03-04-2025 Erythrocyte distribution width (RBC) [Ratio] 54.9 fl High 35.1-43.9 [facility] Glomerular filtration rate ( GFR) estimation/1.73 sq m using serum, plasma, or whole bOrdered By: Nash Orosco on 03-04-2025 GFR/1.73 sq M.predicted among non-blacks MDRD (S/P/Bld) [Vol rate/Area] 39 mL/min/{1.73_m2} Low >60 [facility] Comment on above: mL/min/1.73m2 CKD-EP I Creatinine Equation (2020) Hematocrit Auto (Bld) [Volum e fraction]Ordered By: Nash Orosco on 03-04-2025 Hematocrit (Bld) [Volume fraction] 34.9 % Low 40-54 [facility] Hemoglobin measurementOrdere d By: Nash Orosco on 03-04-2025 Hemoglobin (Bld) [Mass/Vol] 11.1 g/dL Low 13.0-16.5 [facility] Immature granulocytes/100 WB C Auto (Bld)Ordered By: Nash Orosco on 03-04-2025 Immature granulocytes/100 WBC (Bld) 0.300 % 0.0-0.9 [facility] Comment on above: IG% - Immature Granu locytes (promyelocytes, myelocytes and metamyelocytes) > 1% indicates that a LEFT SHIFT is Present. International normalized rat io (INR) calculationOrdered By: Nash Orosco on 03-04-2025 INR Coag (Bld) [Relative time] 1.6 {INR} [facility] MCV (mean corpuscular volume ) determinationOrdered By: Nash Orosco on 03-04-2025 MCV (RBC) [Entitic vol] 88.1 fL 80-[address] [facility] Magnesium measurement (mass/ volume)Ordered By: Nash Orosco on 03-04-2025 Magnesium (Unsp spec) [Mass/Vol] 2.4 mg/dL High 1.5-2.2 [facility] Mean corpuscular hemoglobin (MCH) determinationOrdered By: Nash Orosco on 03-04-2025 MCH (RBC) [Entitic mass] 28.0 pg 27.0-32.0 [facility] Mean corpuscular hemoglobin concentration (MCHC) determinationOrdered By: Nash Orosco on 03-04-2025 MCHC (RBC) [Mass/Vol] 31.8 g/dL Low 32-36 [facility] Mean platelet volume determi nationOrdered By: Nash Orosco on 03-04-2025 Platelet mean volume (Bld) [Entitic vol] 10.5 fL 6.2-12.0 [facility] Monocyte percentageOrdered B y: Nash Orosco on 03-04-2025 Monocytes/100 WBC (Bld) 11.3 % High 0-[address] [facility] Natriuretic peptide.B prohor annie N-Terminal [Mass/volume] in Serum or PlasmaOrdered By: Nash Orosco on 03-04-2025 Natriuretic peptide.B prohormone N-Terminal [Mass/Vol] 2790 pg/mL High <1800 [facility] Comment on above: Heart Failure Unlike ly: < 300 pg/mLHeart Failure Likely< 50 Years: > 450 pg/mL50-75 Years: > 900 pg/mL>75 Years: > 1800 pg/mL Neutrophil percentageOrdered By: Nash Orosco on 03-04-2025 Neutrophils/100 WBC (Bld) 77.0 % High 47-70 [facility] Nucleated red blood cell per centageOrdered By: Nash Orosco on 03-04-2025 Nucleated RBC/100 WBC (Bld) [Ratio] 0 % 0-5 [facility] Platelet countOrdered By: Aminah Orosco on 03-04-2025 Platelets (Bld) [#/Vol] 140 10*3/uL Low 150-450 [facility] Potassium measurement (mass/ volume)Ordered By: Nash Orosco on 03-04-2025 Potassium (Unsp spec) [Mass/Vol] 3.7 mmol/L 3.3-5.1 [facility] Prothrombin timeOrdered By: Nash Orosco on 03-04-2025 PT Coag (PPP) [Time] 19.4 s High 11.7-14.9 [facility] RBC Auto (Bld) [#/Vol]Ordere d By: Nash Orosco on 03-04-2025 RBC (Bld) [#/Vol] 3.96 10*6/uL Low 4.6-6.2 [facility] Serum creatinine measurement (mass/volume)Ordered By: Nash Orosco on 03-04-2025 Creatinine [Mass/Vol] 1.75 mg/dL High 0.70-1.20 [facility] Serum glucose measurement (m ass/volume)Ordered By: Nash Orosco on 03-04-2025 Glucose [Mass/Vol] 118 mg/dL High 70-99 [facility] Serum or plasma calcium karen urement (mass/volume)Ordered By: Nash Orosco on 03-04-2025 Calcium [Mass/Vol] 9.5 mg/dL 7.6-11.0 [facility] Serum or plasma urea nitroge n measurement (mass/volume)Ordered By: Nash Orosco on 03-04-2025 Urea nitrogen [Mass/Vol] 41 mg/dL High 4-19 [facility] Sodium levelOrdered By: Sally Orosco on 03-04-2025 Sodium [Moles/Vol] 139 mmol/L 133-145 [facility] Troponin T.cardiac [Mass/vol ume] in Serum or Plasma by High sensitivity methodOrdered By: Nash Orosco on 03-04-2025 Troponin T.cardiac High sensitivity method [Mass/Vol] 101 ng/L High <22 [facility] Comment on above: Critical Result(s) C alled at: 1614 by: LIAN MORTON Results read back by same. Troponin T.cardiac High sensitivity method [Mass/Vol] 99 ng/L High <22 [facility] Comment on above: Critical Result(s) C alled at: 03/04/2025-14:36 by: Michael Garcia to Juana Milligan. Results read back by same. Troponin T.cardiac High sensitivity method [Mass/Vol] 122 ng/L High <22 [facility] Comment on above: Critical Result(s) C alled at: 03/04/2025-12:50 by: Michael Garcia to Elida Santiago. Results read back by same. White blood cell (WBC) count Ordered By: Nash Orosco on 03-04-2025 WBC (Bld) [#/Vol] 7.7 10*3/uL 4.4-11.0 [facility] CNPNon 02-28-2025 CNPN Telephone (PHAMTE) BESSY VALVERDE Mary ([id number]) 1945 Date Time Provider Department 02/28/25 JONATHAN HAWKINS During your visit today, we recorded the following information about you: Jonathan Hawkins [facility] 02/28/2025 8:17 AM Signed [facility] Anticoagulation Clinic Anticoagulation Episode Summary Anticoagulation Care Providers Provider Role Specialty Phone number George Mata MD [facility] Internal Medicine [phone] Bessy Valverde is a 79 year old [...] missed any doses of warfarin. Jonathan Hawkins [facility] Clinical Pharmacist, Pharmacy Anticoagulation Clinic Pharmacy Anticoagulation Clinic Pager: [phone]. Allergies As of Date: 02/28/2025 (No Known [...] directed for weight gain, fluid retention. - qndmxsmzr-shdhcw-mgbfii ne-scop () 16.2-0.1037 -0.0194 mg per tablet [...] Diverticulosis [K57.90] (more content not included)... Normal [facility] .GFROrdered By: SYSTEM SYSTE M on 02-24-2025 [...] results. Performed By: #### T DANIEL RIVAS, DAMIAN, PBNP, GFR, PRO, CBC, JIM, W #### [address] [address] BMPon 02-24-2025 BUN/Creatinine Ratio 27.7 ratio High 10.0-22.0 [facility] Comment on above: Performed By: #### T DANIEL RIVAS, CMP, PBNP, GFR, PRO, CBC, ANEU, MDW #### [address] [address] BMPOrdered By: SYSTEM SYSTEM on 02-24-2025 Calcium [Mass/Vol] 9.7 mg/dL Normal 8.7-10.4 AH ADM SS Comment on above: Performed By: #### T ROPHS, ADIFF, CMP, PBNP, GFR, PRO, CBC, LANE FERNANDEZ #### [place] [id number] Chloride [Moles/Vol] 103 mmol/L Normal 98-110 AH A DM SS Comment on above: Performed By: #### T ROPHS, ADIFF, CMP, PBNP, GFR, PRO, CBC, LANE FERNANDEZ #### [address] [address] CO2 [Moles/Vol] 27 mmol/L Normal 22-32 AH ADM SS Comment on above: Performed By: #### T ROPHS, ADIFF, CMP, PBNP, GFR, PRO, CBCJIM MDW #### [address] [address] Creatinine [Mass/Vol] 1.55 mg/dL High 0.60-1.40 AH ADM SS Comment on above: Interpretive Data: T esting performed on [employer] CH analyzer using enzymatic creatinine methodology. Result Comment: Test ing performed on [employer] CH analyzer using enzymatic creatinine methodology. Performed By: #### T ROPHS, ADIFF, CMP, PBNP, GFR, PRO, CBC, LANE FERNANDEZ #### [address] [address] Electrolyte Balance 13.0 mEq/L Normal 4.0-15.0 AH AD M SS Comment on above: Performed By: #### T ROPHS, ADIFF, CMP, PBNP, GFR, PRO, CBC, LANE FERNANDEZ #### [address] [address] Glucose [Mass/Vol] 135 mg/dL High 82-115 AH ADM SS Comment on above: Performed By: #### T ROPHS, ADIFF, CMP, PBNP, GFR, PRO, CBCJIM MDW #### [address] [address] Potassium [Moles/Vol] 4.1 mmol/L Normal 3.5-5.0 AH ADM SS Comment on above: Performed By: #### T ROPHS, ADIFF, CMP, PBNP, GFR, PRO, CBC, LANE FERNANDEZ #### [facility] [address] [place] [address] Sodium [Moles/Vol] 143 mmol/L Normal 136-145 [facility] Comment on above: Performed By: #### T EVELYN, DANIEL, CMP, PBNP, GFR, PRO, CBCJIM MDW #### [facility] [address] [place] [address] Urea nitrogen [Mass/Vol] 43.0 mg/dL High 8.0-22.0 [facility] Comment on above: Performed By: #### T EVELYN, ADIFF, CMP, PBNP, GFR, PRO, CBCJIM MDW #### [facility] [address] [place] [address] LABORATORYOrdered By: Dior frazier on 02-24-2025 Glucose [Mass/Vol] 125 mg/dL High 82 - 115 mg/dL [facility] Work Phone: LABORATORYOrdered By: SYSTEM SYSTEM on 02-24-2025 PT International Ratio 2.1 ratio Invalid Interpretation Code HemoHub Comment on above: Interpretive Data: Reid pacheco [employer] (CHEST, 1991, 102:312S-25S) recommended therapeutic range for oral anticoagulant therapy is: LOW RISK: Prophylaxis of venous thrombosis INR: 2.0-3.0 Treatment of pulmonary embolism 2.0-3.0 Prevention of systemic embolism 2.0-3.0 HIGH RISK: Mechanical prosthetic valves 2.5-3.5 Urea nitrogen/Creatinine [Mass ratio] 27.7 ratio High 10.0 - 22.0 ratio ADM SS PROon 02-24-2025 INR Coag (PPP) [Relative time] 2.1 {INR} Normal [facility] Comment on above: Result Comment: The [place] [employer] (CHEST, 1991, 102:312S-25S) recommended therapeutic range for oral anticoagulant therapy is: LOW RISK: Prophylaxis of venous thrombosis INR: 2.0-3.0 Treatment of pulmonary embolism 2.0-3.0 Prevention of systemic embolism 2.0-3.0 HIGH RISK: Mechanical prosthetic valves 2.5-3.5 Performed By: #### T EVELYN, ADPHYLLIS, CMP, PBNP, GFR, PRO, CBC, LANE FERNANDEZ #### [place] [id number] [place] [address] PROOrdered By: SYSTEM SYSTEM on 02-24-2025 PT Coag (PPP) [Time] 24.7 s High 9.0-14.4 AH H emoHub SS Comment on above: Interpretive Data: E [...] PBNP, GFR, PRO, CBC, LANE FERNANDEZ #### [address] [address] XR CHEST 1 VIEWon 02-24-2025 XR CHEST [...] Sign Date: 02/24/2025 2:11:11 PM Ordering Provider: FIRAS HAMDAN [facility] MAIN OCTAVIORachelle 02-21-2025 CNPN Telephone (PHAMTE) BESSY VALVERDE ([id number]) 1945 M Date Time Provider Department 02/21/25 JONATHAN HAWKINS PHAMTE During your visit today, we recorded the following information about you: Jonathan Hawkins, [facility] 02/21/2025 7:59 AM Signed [facility] Anticoagulation Clinic Anticoagulation Episode Summary Anticoagulation Care Providers Provider Role Specialty Phone number George Mata MD [facility] Internal Medicine [phone] Bessy Valverde is a 79 year old [...] missed any doses of warfarin. Jonathan Hawkins [facility] Clinical Pharmacist, Pharmacy Anticoagulation Clinic Pharmacy Anticoagulation Clinic Pager: [phone]. Allergies As of Date: 02/21/2025 (No Known [...] directed for weight gain, fluid retention. - pgomkairf-aiapqv-pdjxks ne-scop () 16.2-0.1037 -0.0194 mg per tablet [...] well-controlled [J*05/ (more content not included)... Normal [facility] 02-14-2025 CNPN Telephone (HealionicsE) EBSSY VALVERDE ([id number]) 1945 M Date Time Provider Department 02/14/25 JONATHAN HAWKINS During your visit today, we recorded the following information about you: Jonathan Hawkins [facility] 02/14/2025 10:26 AM Signed [facility] Anticoagulation Clinic Anticoagulation Episode Summary Anticoagulation Care Providers Provider Role Specialty Phone number George Mata MD Responsible Internal Medicine [phone] Bessy Valverde is a 79 year old [...] missed any doses of warfarin. Jonathan Hawkins [facility] Clinical Pharmacist, Pharmacy Anticoagulation Clinic Pharmacy Anticoagulation Clinic Pager: [phone]. Allergies As of Date: 02/14/2025 (No Known [...] directed for weight gain, fluid retention. - kjijzpfgp-yakxsj-wmqrmb ne-scop () 16.2-0.1037 -0.0194 mg per tablet [...] mg tablet 5 mg every Thu AND ; 2.5 mg all other days - [...] [K57.90] 07/10 (more content not included)... Normal [facility] .Auto Diffon 02-13-2025 Basophil, Absolute 0.0 10 3/mcL Normal 0.0-0.3 [facility] Comment on above: Performed By: #### T DANIEL RIVAS, CMP, PBNP, GFR, PRO, CBC, LANE FERNANDEZ #### [address] [address] Basophils/100 WBC (Bld) 0.6 % Normal 0.0-2.5 [facility] Comment on above: Performed By: #### T EVELYN, DANIEL, CMP, PBNP, GFR, PRO, CBC, LANE FERNANDEZ #### [address] [address] Eosinophil, Absolute 0.1 10 3/mcL Normal 0.0-0.7 [facility] Comment on above: Performed By: #### T EVELYN, SYDNEYIFF, CMP, PBNP, GFR, PRO, CBC, LAEN FERNANDEZ #### [address] [address] Eosinophils/100 WBC (Bld) 1.2 % Normal 0.0-6.0 [facility] Comment on above: Performed By: #### T ROPHS, ADIFF, CMP, PBNP, GFR, PRO, CBC, ANEULANE #### [address] [address] Lymphocyte, Absolute 0.5 10 3/mcL Low 0.9-4.3 [facility] Comment on above: Performed By: #### T ROPHS, ADIFF, CMP, PBNP, GFR, PRO, CBC, ANEULANE #### [address] [address] Lymphocytes/100 WBC (Bld) 7.7 % Low 20.0-40.0 [facility] Comment on above: Performed By: #### T ROPHS, ADIFF, CMP, PBNP, GFR, PRO, CBC, LANE FERNANDEZ #### [address] [address] Monocyte, Absolute 0.7 10 3/mcL Normal 0.1-1.4 [facility] Comment on above: Performed By: #### T ROPHS, ADIFF, CMP, PBNP, GFR, PRO, CBC, LANE FERNANDEZ #### [address] [address] Monocytes/100 WBC (Bld) 10.1 % Normal 2.0-13.0 [facility] Comment on above: Performed By: #### T ROPHS, ADIFF, CMP, PBNP, GFR, PRO, CBC, ANEULANE #### [address] [address] Neutrophils/100 WBC (Bld) 80.4 % High 50.0-75.0 [facility] Comment on above: Performed By: #### T ROPHS, ADIFF, CMP, PBNP, GFR, PRO, CBC, ANEULANE #### [address] [address] .GFRon 02-13-2025 Estimated Glomerular Filtration Rate 41 ml/min/1.73sqm Normal [facility] Comment on above: Result Comment: Stages [...] PBNP, GFR, PRO, CBC, LANE FERNANDEZ #### [address] [address] .NEUABSon 02-13-2025 Neutrophil, Absolute 5.4 10 3/mcL Normal 2.3-8.1 [facility] Comment on above: Performed By: #### T EVELYN, ADIFF, CMP, PBNP, GFR, PRO, CBC, LANE FERNANDEZ #### [address] [address] BMPon 02-13-2025 BUN/Creatinine Ratio 24.6 ratio High 10.0-22.0 [facility] Comment on above: Performed By: #### T EVELYN, ADIFF, CMP, PBNP, GFR, PRO, CBC, LANE FERNANDEZ #### [address] [address] Calcium [Mass/Vol] 9.5 mg/dL Normal 8.7-10.4 [facility] Comment on above: Performed By: #### T EVELYN, ADIFF, CMP, PBNP, GFR, PRO, CBC, LANE FERNANDEZ #### [address] [address] Chloride [Moles/Vol] 102 mmol/L Normal 98-110 [facility] Comment on above: Performed By: #### T EVELYN, ADIFF, CMP, PBNP, GFR, PRO, CBC, LANE FERNANDEZ #### [address] [address] CO2 [Moles/Vol] 29 mmol/L Normal 22-32 [facility] Comment on above: Performed By: #### T EVELYN, ADIFF, CMP, PBNP, GFR, PRO, CBC, LANE FERNANDEZ #### [address] [address] Creatinine [Mass/Vol] 1.67 mg/dL High 0.60-1.40 [facility] Comment on above: Result Comment: Test ing performed on [employer] analyzer using enzymatic creatinine methodology. Performed By: #### T EVELYN, ADIFF, CMP, PBNP, GFR, PRO, CBCJIM MDW #### [address] [address] Electrolyte Balance 11.0 mEq/L Normal 4.0-15.0 [facility] Comment on above: Performed By: #### T EVELYN, ADIFF, CMP, PBNP, GFR, PRO, CBC, LANE FERNANDEZ #### [address] [address] Glucose [Mass/Vol] 181 mg/dL High 82-115 [facility] Comment on above: Performed By: #### T EVELYN, ADIFF, CMP, PBNP, GFR, PRO, CBCJIM MDW #### [address] [address] Potassium [Moles/Vol] 3.8 mmol/L Normal 3.5-5.0 [facility] Comment on above: Performed By: #### T ROPHS, ADIFF, CMP, PBNP, GFR, PRO, CBC, LANE FERNANDEZ #### [address] [address] Sodium [Moles/Vol] 142 mmol/L Normal 136-145 [facility] Comment on above: Performed By: #### T ROPHS, ADIFF, CMP, PBNP, GFR, PRO, CBC, LANE FERNANDEZ #### [address] [address] Urea nitrogen [Mass/Vol] 41.0 mg/dL High 8.0-22.0 [facility] Comment on above: Performed By: #### T ROPHS, ADIFF, CMP, PBNP, GFR, PRO, CBC, LANE FERNANDEZ #### [address] [address] CBCon 02-13-2025 Erythrocyte distribution width (RBC) [Ratio] 17.5 % High 11.5-15.5 [facility] Comment on above: Performed By: #### T ROPHS, ADIFF, CMP, PBNP, GFR, PRO, CBC, LANE FERNANDEZ #### [place] [address] Hematocrit (Bld) [Volume fraction] 31.9 % Low 40.0-52.0 [facility] Comment on above: Performed By: #### T ROPHS, ADIFF, CMP, PBNP, GFR, PRO, CBC, LANE FERNANDEZ #### [place] [address] Hgb 10.7 G/dL Low 13.0-17.5 [facility] Comment on above: Performed By: #### T ROPHS, ADIFF, CMP, PBNP, GFR, PRO, CBC, LANE FERNANDEZ #### [place] [id number] MCH (RBC) [Entitic mass] 28.7 pg Normal 27.0-33.0 [facility] Comment on above: Performed By: #### T ROPHS, ADIFF, CMP, PBNP, GFR, PRO, CBC, LANE FERNANDEZ #### [place] [id number] MCHC 33.7 G/dL Normal 32.0-36.0 [facility] Comment on above: Performed By: #### T ROPHS, ADIFF, CMP, PBNP, GFR, PRO, CBC, LANE FERNANDEZ #### [place] [address] MCV (RBC) [Entitic vol] 85.2 fL Normal 81.0-100.0 [facility] Comment on above: Performed By: #### T ROPHS, ADIFF, CMP, PBNP, GFR, PRO, CBC, LANE FERNANDEZ #### [place] [address] Platelet 135 10 3/mcL Low 150-450 [facility] Comment on above: Performed By: #### T ROPHS, ADIFF, CMP, PBNP, GFR, PRO, CBC, LANE FERNANDEZ #### [place] [address] Platelet mean volume (Bld) [Entitic vol] 8.3 fL Normal 6.4-10.5 [facility] Comment on above: Performed By: #### T ROPHS, ADIFF, CMP, PBNP, GFR, PRO, CBC, LANE FERNANDEZ #### [place] [address] RBC 3.74 10 6/mcL Low 4.50-6.00 [facility] Comment on above: Performed By: #### T ROPHS, ADIFF, CMP, PBNP, GFR, PRO, CBC, LANE FERNANDEZ #### [place] [address] WBC 6.8 10 3/mcL Normal 4.5-10.8 [facility] Comment on above: Performed By: #### T ROPHS, ADIFF, CMP, PBNP, GFR, PRO, CBC, LANE FERNANDEZ #### [place] [address] LABORATORYOrdered By: SYSTEM SYSTEM on 02-13-2025 Basophils (Bld) [#/Vol] 0.0 103/mcL Normal 0.0 - 0.3 10^3/mcL AH Workflow SS Basophils/100 WBC (Bld) 0.6 % Normal 0.0 - 2.5 % AH Workflow SS Calcium [Mass/Vol] 9.5 mg/dL Normal 8.7 - 10. 4 mg/dL AH ADM SS Chloride [Moles/Vol] 102 mmol/L Normal 98 - 11 0 mEq/L AH ADM SS CO2 [Moles/Vol] 29 mmol/L Normal 22 - 32 mEq/L AH ADM SS Creatinine [Mass/Vol] 1.67 mg/dL High 0.60 - 1.40 mg/dL AH ADM SS Comment on above: Interpretive Data: T esting performed on [employer] analyzer using enzymatic creatinine methodology. Electrolyte Balance [...] 31.9 % Low 40.0 - 52.0 % Workflow SS Hemoglobin (Bld) [Mass/Vol] 10.7 G/dL Low 13.0 - 17.5 G/dL Workflow SS Lymphocytes (Bld) [#/Vol] 0.5 103/mcL Low 0.9 - 4.3 10^3/mcL Workflow SS Lymphocytes/100 WBC (Bld) 7.7 % Low 20.0 - 40.0 % Workflow SS MCH (RBC) [Entitic mass] 28.7 pg Normal 27.0 - 33.0 pg Workflow SS MCHC 33.7 G/dL Normal 32.0 - 36.0 G/dL Workflow [...] CNPNon 02-07-2025 CNPN Telephone (PHAMTE) BESSY VALVERDE ([id number]) 1945 M Date Time Provider Department 02/07/25 JONATHAN HAWKINS During your visit today, we recorded the following information about you: Jonathan Hawkins [facility] 02/07/2025 2:40 PM Signed [facility] Anticoagulation Clinic Anticoagulation Episode Summary Anticoagulation Care Providers Provider Role Specialty Phone number George Mata MD [facility] Internal Medicine [phone] Bessy Valverde is a 79 year old [...] missed any doses of warfarin. Jonathan Hawkins [facility] Clinical Pharmacist, Pharmacy Anticoagulation Clinic Pharmacy Anticoagulation Clinic Pager: [phone]. Jonathan Hawkins RPh 02/14/2025 9:55 AM Signed [...] directed for weight gain, fluid retention. - chvwlgxdm-uipjdp-gzccnn ne-scop () 16.2-0.1037 -0.0194 mg per tablet [...] persistent, well- (more content not included)... [facility] (PHAMTE) BESSY VALVERDE ([id number]) 1945 M Date Time Provider Department 01/31/25 JONATHAN HAWKINS PHAGARRETT During your visit today, we recorded the following information about you: Jonathan Hawkins [facility] 01/31/2025 8:13 AM Signed [facility] Anticoagulation Clinic Anticoagulation Episode Summary Anticoagulation Care Providers Provider Role Specialty Phone number George Mata MD Responsible Internal Medicine [phone] Bessy Hernandez Nicolle is a 79 year [...] Pharmacy Anticoagulation Clinic Pharmacy Anticoagulation Clinic Pager: [phone]. Jonathan Hawkins RPh 02/07/2025 11:22 AM Signed [...] directed for weight gain, fluid retention. - meghqvojo-fexavt-jgiuio ne-scop () 16.2-0.1037 -0.0194 mg per tablet [...] persistent, well-cont (more content not included)... [facility] C[facility] Telephone (INTMWS) BESSY VALVERDE ([id number]) 1945 M Date Time Provider Department 01/30/25 GEORGE MATA INTMWS During your visit today, [...] directed for weight gain, fluid retention. 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*07/17/2021 PVD (peripheral vascular disease) with claudica*07/29/2023 Lumbosacral radiculopathy [M54.17] 11/01/2024 Encounter Status:Closed by SANDI DENTON on 01/30/25 [facility] 01-24-2025 ROSI Telephone ([employer]) BESSY VALVERED ([id number]) 1945 M Date Time Provider Department 01/24/25 JONATHAN HAWKINS During your visit today, we recorded the following information about you: Jonathan Hawkins [facility] 01/24/2025 8:17 AM Signed [facility] Anticoagulation Clinic Anticoagulation Episode Summary Anticoagulation Care Providers Provider Role Specialty Phone number George Mata MD [facility] Internal Medicine [phone] Bessy Valverde is a 79 year old [...] missed any doses of warfarin. Jonathan Hawkins [facility] Clinical Pharmacist, Pharmacy Anticoagulation Clinic Pharmacy Anticoagulation Clinic Pager: [phone]. Allergies As of Date: 01/24/2025 (No Known [...] directed for weight gain, fluid retention. - bpxaxxfye-swfsxn-vfyfvu ne-scop () 16.2-0.1037 -0.0194 mg per tablet [...] [E78.00] 1 (more content not included)... Normal [facility] BESS[facility] VALVER[facility] ([id number]) 1945 M Date Time Provider Department 01/17/25 JONATHAN HAWKINS During your visit today, we recorded the following information about you: Jonathan Hawkins [facility] 01/17/2025 10:34 AM Signed [facility] Anticoagulation Clinic Anticoagulation Episode Summary Anticoagulation Care Providers Provider Role Specialty Phone number George Mata MD [facility] Internal Medicine [phone] Bessy Hernandez Nicolle is a 79 year [...] missed any doses of warfarin. Jonathan Hawkins [facility] Clinical Pharmacist, Pharmacy Anticoagulation Clinic Pharmacy Anticoagulation Clinic Pager: [phone]. Allergies As of Date: 01/17/2025 (No Known [...] directed for weight gain, fluid retention. - jnqcppqqy-atrmto-rgprts ne-scop () 16.2-0.1037 -0.0194 mg per tablet [...] [Z12.11] 07/11/2010 (more content not included)... Normal [facility] CNOVon 01-10-2025 CNOV Office Visit (INTMWS ) BESSY VALVERDE ([id number]) 1945 M Date Time Provider Department 01/10/25 11:20 AM GEORGE MATA INTMWS During your visit today, we recorded the following information about you: Pulse Blood pressure Weight 68/minute 110/62 80.9 kg George Mata MD 01/10/2025 1:17 PM Signed This note was created using nWayriter. Subjective Patient presents with: Hospital F/U Bessy Valverde is a 79 year old male here with . Recording using ProjectSpeaker software for draft documentation of the visit was discussed with the patient/authorized enrollment eligibility representative; all questions welcomed and answered. Patient/authorized enrollment eligibility representative agreed to proceed Paroxysmal Atrial Fibrillation: [...] Follow up labs were already done by real estate developer. CHF with Reduced EF: - Reports dyspnea consistent with baseline asthma symptoms. - Spironolactone discontinued during hospitalization. - Continues to take Entresto. - Bumetanide use adjusted to PRN based on weight gain of 3 lbs over 3 days. CAD: - History of valve replacement in 2012 and 2018. Acute Kidney Injury: - Recent hospitalization included [...] Valve Stenosis Chronic Systolic Heart Failure (Hcc) Group Home (Current) Use of Anticoagulants Gout of [...] by mouth every 4 hours as needed. zokhzijmd-ecyhoa-gykxlc ne-scop () 16.2-0.1037 -0.0194 mg per tablet [...] 98% B (more content not included)... Normal [facility] BESSY VALVERDE ([id number]) 1945 M Date Time Provider Department 01/10/25 JONATHAN HAWKINS During your visit today, we recorded the following information about you: Jonathan Hawkins [facility] 01/10/2025 4:25 PM Signed Melanie Scruggs [facility] 01/10/25 4:13 PM Note Pt. called stated pt. INR was 2.3 today. Pt. is having a procedure on 01/12/25. Pt. worried his procedure will not happen if his INR not under 2.0. Pt. requestig a return call at [phone] Jonathan Hawkins, [facility] 01/10/2025 4:[address] [facility] Pharmacy Anticoagulation Clinic Anticoagulation Episode Summary Anticoagulation Care Providers Provider Role Specialty Phone number George Mata MD Responsible Internal Medicine [phone] Bessy Valverde is a 79 year old [...] result of 2.3 is therapeutic Was in [facility] 12/31-01/04 for elevated HR and A fib [...] missed any doses of warfarin. Jonathan Hawkins [facility] Clinical Pharmacist, Pharmacy Anticoagulation Clinic Pharmacy Anticoagulation Clinic Pager: [phone]. Allergies As of Date: 01/10/2025 (No Known [...] directed for weight gain, fluid retention. - khdvjjpyf-lduofh-ddwnph ne-scop () 16.2-0.1037 -0.0194 mg per tablet [...] Noted Resolv (more content not included)... Normal [facility] .GFRon 01-09-2025 Estimated Glomerular Filtration Rate 43 ml/min/1.73sqm Normal [facility] Comment on above: Result Comment: Stages of [...] calculate the eGFR results. Performed By: #### G PRO GOODSON BMP #### [place] [address] [place], [place] [address] BMPon 01-09-2025 BUN/Creatinine Ratio 22 ratio Normal 7-27 [facility] Comment on above: Performed By: #### G PRO GOODSON BMP #### [employer] [address] Calcium [Mass/Vol] 9.1 mg/dL Normal 8.4-10.2 [facility] Comment on above: Performed By: #### PRO CLEMENTINA, BMP #### [address] [address] Chloride [Moles/Vol] 102 mmol/L Normal 98-107 [facility] Comment on above: Performed By: #### Camille GOODSON PRO, BMP #### [address] [address] CO2 [Moles/Vol] 28 mmol/L Normal 23-31 [facility] Comment on above: Performed By: #### PRO CLEMENTINA, BMP #### [address] [address] Creatinine [Mass/Vol] 1.62 mg/dL High 0.67-1.17 [facility] Comment on above: Performed By: #### PRO CLEMENTINA, BMP #### [address] [address] Electrolyte Balance 9.0 mEq/L Normal 4.0-15.0 [facility] Comment on above: Performed By: #### PRO CLEMENTINA, BMP #### [address] [address] Glucose [Mass/Vol] 219 mg/dL High 83-110 [facility] Comment on above: Performed By: #### aCmille GOODSON PRO, BMP #### [address] [address] Potassium [Moles/Vol] 3.8 mmol/L Normal 3.5-5.1 [facility] Comment on above: Performed By: #### Camille GOODSON PRO, BMP #### [address] [address] Sodium [Moles/Vol] 139 mmol/L Normal 136-145 [facility] Comment on above: Performed By: #### Camille GOODSON PRO, BMP #### [address] [address] Urea nitrogen [Mass/Vol] 35 mg/dL High 7-18 [facility] Comment on above: Performed By: #### G , , ESTUARDO #### [place] [address] [place], [place] [address] LABORATORYOrdered By: SYSTEM SYSTEM on 01-09-2025 Calcium [...] Comment on above: Interpretive Data: Reid pacheco [employer] (CHEST, 1992, 102:312S-25S) [...] Coag (PPP) [Time] 32.1 s High 9.0-14.4 [facility] Comment on above: Performed By: #### G PRO HAMZAH, BMP #### [place] [address] [place], [place] [address] PT International Ratio 2.8 Normal [facility] Comment on above: Result Comment: [employer] [place] [employer] (CHEST, 1992, 102:312S-25S) recommended therapeutic range for oral anticoagulant therapy is: LOW RISK: Prophylaxis of venous thrombosis INR: 2.0-3.0 Treatment of pulmonary embolism 2.0-3.0 Prevention of systemic embolism 2.0-3.0 HIGH RISK: Mechanical prosthetic valves 2.5-3.5 Performed By: #### G PRO HAMZAH, BMP #### [place] [address] [place], [place] [address] CNPRachelle 01-05-2025 CNPN Telephone (INTWS) BESSY VALVERDE ([id number]) 1945 M Date Time Provider Department 01/05/25 GEORGE MATA INTWS During your visit today, we recorded the following information about you: Sandi Denton, [place] 01/05/2025 3:22 PM Signed TRANSITION CARE MANAGEMENT (TCM) INITIAL CONTACT [facility] Outreach Provider Action/FYI: Patient has real estate developer appointment on 01/25/2025; Patient has to go get new pacer. Patient has to have skin cancer removed from his face in a couple of weeks. Patient was admitted to [facility] on Thursday12/31/2024 Initial contact with patient post discharge, spoke to spouse. Patient identified by name and . TRANSITION CARE MANAGEMENT INITIAL OUTREACH DOCUMENTATION: No data to display SUMMARY: -Pt discharged from [facility] on 01/04/2025. -Admitted for: Atrial Fibrillation Do [...] Update [1234] Prescriptions as of 01/05/2025 - ugdjmzqer-lcfxeu-wkslqs ne-scop () 16.2-0.1037 -0.0194 mg per tablet [...] 09/09/2017 Controlle (more content not included)... Normal [facility] .Auto Diffon 01-04-2025 Basophil, Absolute 0.0 10 3/mcL Normal 0.0-0.3 [facility] Comment on above: Performed By: #### T EVELYN, ADPHYLLIS, CMP, PBNP, GFR, PRO, CBC, ANEU MDTroy #### [address] [address] Basophils/100 WBC (Bld) 0.4 % Normal 0.0-2.5 [facility] Comment on above: Performed By: #### T DANIEL RIVAS, CMP, PBNP, GFR, PRO, CBC, ANEULANE #### [address] [address] Eosinophil, Absolute 0.2 10 3/mcL Normal 0.0-0.7 [facility] [facility] Comment on above: Performed By: #### T EVELYN, ADIFF, CMP, PBNP, GFR, PRO, CBC, ANEU, MDW #### [address] [address] Eosinophils/100 WBC (Bld) 2.7 % Normal 0.0-6.0 [facility] MAIN Comment on above: Performed By: #### T EVELYN, ADIFF, CMP, PBNP, GFR, PRO, CBC, ANEU, MDW #### [address] [address] Lymphocyte, Absolute 0.8 10 3/mcL Low 0.9-4.3 [facility] MAIN Comment on above: Performed By: #### T ROPHS, ADIFF, CMP, PBNP, GFR, PRO, CBC, ANEU, MDW #### [address] [address] Lymphocytes/100 WBC (Bld) 14.0 % Low 20.0-40.0 [facility] MAIN Comment on above: Performed By: #### T ROPHS, ADIFF, CMP, PBNP, GFR, PRO, CBC, ANEU, MDW #### [address] [address] Monocyte, Absolute 0.7 10 3/mcL Normal 0.1-1.4 [facility] MAIN Comment on above: Performed By: #### T ROPHS, ADIFF, CMP, PBNP, GFR, PRO, CBC, ANEU, MDW #### [address] [address] Monocytes/100 WBC (Bld) 10.8 % Normal 2.0-13.0 [facility] MAIN Comment on above: Performed By: #### T ROPHS, ADIFF, CMP, PBNP, GFR, PRO, CBC, ANEU, MDW #### [address] [address] Neutrophils/100 WBC (Bld) 72.1 % Normal 50.0-75.0 [facility] MAIN Comment on above: Performed By: #### T ROPHS, ADIFF, CMP, PBNP, GFR, PRO, CBC, ANEU, MDW #### [address] [address] .GFRon 01-04-2025 Estimated Glomerular Filtration Rate 45 ml/min/1.73sqm Normal [facility] MAIN Comment on above: Result Comment: Stages [...] PBNP, GFR, PRO, CBC, LANE FERNANDEZ #### [address] [address] .NEUABSon 01-04-2025 Neutrophil, Absolute 4.4 10 3/mcL Normal 2.3-8.1 [facility] MAIN Comment on above: Performed By: #### T ROPHS, ADIFF, CMP, PBNP, GFR, PRO, CBC, LANE FERNANDEZ #### [address] [address] BMPon 01-04-2025 BUN/Creatinine Ratio 23.9 ratio High 10.0-22.0 [facility] MAIN Comment on above: Performed By: #### T ROPHS, ADIFF, CMP, PBNP, GFR, PRO, CBC, LANE FERNANDEZ #### [address] [address] Calcium [Mass/Vol] 9.3 mg/dL Normal 8.7-10.4 [facility] Comment on above: Performed By: #### T ROPNORBERTO, ADIFF, CMP, PBNP, GFR, PRO, CBC, LANE FERNANDEZ #### [address] [address] Chloride [Moles/Vol] 101 mmol/L Normal 98-110 [facility] MAIN Comment on above: Performed By: #### T ROPHS, ADIFF, CMP, PBNP, GFR, PRO, CBC, LANE FERNANDEZ #### [address] [address] CO2 [Moles/Vol] 26 mmol/L Normal 22-32 [facility] MAIN Comment on above: Performed By: #### T ROPHS, ADIFF, CMP, PBNP, GFR, PRO, CBC, LANE FERNANDEZ #### [address] [address] Creatinine [Mass/Vol] 1.55 mg/dL High 0.60-1.40 [facility] MAIN Comment on above: Result Comment: Test ing performed on [employer] analyzer using enzymatic creatinine methodology. Performed By: #### T ROPHS, ADIFF, CMP, PBNP, GFR, PRO, CBC, LANE FERNANDEZ #### [address] [address] Electrolyte Balance 9.0 mEq/L Normal 4.0-15.0 [facility] MAIN Comment on above: Performed By: #### T ROPHS, ADIFF, CMP, PBNP, GFR, PRO, CBC, LANE FERNANDEZ #### [place] [id number] Glucose [Mass/Vol] 104 mg/dL Normal 82-115 [facility] MAIN Comment on above: Performed By: #### T ROPHS, ADIFF, CMP, PBNP, GFR, PRO, CBCJIM MDW #### [place] [id number] Potassium [Moles/Vol] 4.3 mmol/L Normal 3.5-5.0 [facility] MAIN Comment on above: Performed By: #### T ROPHS, ADIFF, CMP, PBNP, GFR, PRO, CBCJIM MDW #### [place] [id number] Sodium [Moles/Vol] 136 mmol/L Normal 136-145 [facility] MA[facility] Comment on above: Performed By: #### T ROPHS, ADIFF, CMP, PBNP, GFR, PRO, CBC, LANE FERNANDEZ #### [place] [id number] Urea nitrogen [Mass/Vol] 37.0 mg/dL High 8.0-22.0 [facility] MAIN Comment on above: Performed By: #### T ROPHS, ADIFF, CMP, PBNP, GFR, PRO, CBCJIM MDW #### [address] [address] CBCon 01-04-2025 Erythrocyte distribution width (RBC) [Ratio] 16.7 % High 11.5-15.5 [facility] MAIN Comment on above: Performed By: #### T ROPHS, ADIFF, CMP, PBNP, GFR, PRO, CBC, LANE FERNANDEZ #### [place] [id number] Hematocrit (Bld) [Volume fraction] 30.2 % Low 40.0-52.0 [facility] MAIN Comment on above: Performed By: #### T ROPNORBERTO, ADIFF, CMP, PBNP, GFR, PRO, CBC, LANE FERNANDEZ #### [place] [id number] Hgb 10.2 G/dL Low 13.0-17.5 [facility] MAIN Comment on above: Performed By: #### T ROPHS, ADIFF, CMP, PBNP, GFR, PRO, CBC, LANE FERNANDEZ #### [place] [id number] MCH (RBC) [Entitic mass] 28.8 pg Normal 27.0-33.0 [facility] MAIN Comment on above: Performed By: #### T EVELYN, ADIFF, CMP, PBNP, GFR, PRO, CBC, ALNE FERNANDEZ #### [place] [id number] MCHC 33.8 G/dL Normal 32.0-36.0 [facility] MAIN Comment on above: Performed By: #### T EVLEYN, ADIFF, CMP, PBNP, GFR, PRO, CBC, LANE FERNANDEZ #### [place] [phone] MCV (RBC) [Entitic vol] 85.2 fL Normal 81.0-100.0 [facility] MAIN Comment on above: Performed By: #### T ROPHS, ADIFF, CMP, PBNP, GFR, PRO, CBC, LANE FERNANDEZ #### [place] [id number] Platelet 106 10 3/mcL Low 150-450 [facility] MAIN Comment on above: Performed By: #### T ROPHS, ADIFF, CMP, PBNP, GFR, PRO, CBC, LANE FERNANDEZ #### [place] [id number] Platelet mean volume (Bld) [Entitic vol] 9.4 fL Normal 6.4-10.5 [facility] MAIN Comment on above: Performed By: #### T ROPHS, ADIFF, CMP, PBNP, GFR, PRO, CBC, LANE FERNANDEZ #### [place] [address] RBC 3.55 10 6/mcL Low 4.50-6.00 [facility] MAIN Comment on above: Performed By: #### T ROPHS, ADIFF, CMP, PBNP, GFR, PRO, CBC, LANE FERNANDEZ #### [place] [address] WBC 6.1 10 3/mcL Normal 4.5-10.8 [facility] MAIN Comment on above: Performed By: #### T EVELYN, ADPHYLLIS, CMP, PBNP, GFR, PRO, CBC, LANE FERNANDEZ #### [place] [address] LABORATORYOrdered By: SYSTEM SYSTEM on 01-04-2025 Basophils (Bld) [#/Vol] 0.0 103/mcL Normal 0.0 - 0.3 10^3/mcL AH Workflow SS Basophils/100 WBC (Bld) 0.4 % Normal 0.0 - 2.5 % AH Workflow SS Calcium [Mass/Vol] 9.3 mg/dL Normal 8.7 - 10. 4 mg/dL ADM SS Chloride [Moles/Vol] 101 mmol/L Normal 98 - 11 0 mEq/L ADM SS CO2 [Moles/Vol] 26 mmol/L Normal 22 - 32 mEq/L ADM SS Creatinine [Mass/Vol] 1.55 mg/dL High 0.60 - 1.40 mg/dL ADM SS Comment on above: Interpretive Data: T esting performed on [email or web address] analyzer using enzymatic creatinine methodology. Electrolyte Balance [...] 0.8 103/mcL Low 0.9 - 4.3 10^3/mcL AH Workflow SS Lymphocytes/100 WBC (Bld) 14.0 % Low 20.0 - 40.0 % AH Workflow SS Magnesium [Mass/Vol] 2.0 mg/dL Normal 1.6 - 2 .4 mg/dL ADM SS MCH (RBC) [Entitic mass] 28.8 pg Normal 27.0 - 33.0 pg AH Workflow SS MCHC 33.8 G/dL Normal 32.0 - 36.0 G/dL AH Workflow SS MCV (RBC) [Entitic vol] 85.2 fL Normal 81.0 - 100.0 fL AH Workflow SS Monocytes (Bld) [#/Vol] 0.7 103/mcL Normal 0.1 - 1.4 10^3/mcL AH Workflow SS Monocytes/100 WBC (Bld) 10.8 % Normal 2.0 - 13.0 % AH Workflow SS Neutrophils (Bld) [#/Vol] 4.4 103/mcL Normal 2.3 - 8.1 10^3/mcL AH Workflow SS Neutrophils/100 WBC (Bld) 72.1 % [...] High 9.0 - 1 4.4 seconds [facility] Comment on above: Interpretive Data: E ffective 02/22/08, Protime results may be affected by some antibiotics (i.e. Ciprofloxacin, Azithromycin, Bactrim) which may potentiate the action of oral anticoagulants, with further increases in Protime/INR. PT International Ratio 2.4 ratio Invalid Interpretation Code [facility] Comment on above: Interpretive Data: Reid pacheco [employer] (CHEST, 1992, 102:312S-25S) recommended therapeutic range for oral anticoagulant therapy is: LOW RISK: Prophylaxis of venous thrombosis INR: 2.0-3.0 Treatment of pulmonary embolism 2.0-3.0 Prevention of systemic embolism 2.0-3.0 HIGH RISK: Mechanical prosthetic valves 2.5-3.5 RBC (Bld) [#/Vol] 3.55 106/mcL Low 4.50 - 6.0 0 10^6/mcL Workflow SS Sodium [Moles/Vol] 136 mmol/L Normal 136 - 145 mEq/L ADM SS Urea nitrogen [Mass/Vol] 37.0 mg/dL High 8.0 - 22.0 mg/dL ADM SS Urea nitrogen/Creatinine [Mass ratio] 23.9 ratio High 10.0 - 22.0 ratio ADM SS WBC (Bld) [#/Vol] 6.1 103/mcL Normal 4.5 - 10.8 10^3/mcL Workflow SS MGon 01-04-2025 Magnesium [Mass/Vol] 2.0 mg/dL Normal 1.6-2.4 [facility] MAIN Comment on above: Performed By: #### T ROPHS, ADIFF, CMP, PBNP, GFR, PRO, CBC, ANEU, MDW #### [place] [address] PROon 01-04-2025 INR Coag (PPP) [Relative time] 2.4 {INR} Normal [facility] MAIN Comment on above: Order Comment: order ed secondary to warfarin order Result Comment: [employer] [place] (CHEST, 1992, 102:312S-25S) recommended therapeutic range for oral anticoagulant therapy is: LOW RISK: Prophylaxis of venous thrombosis INR: 2.0-3.0 Treatment of pulmonary embolism 2.0-3.0 Prevention of systemic embolism 2.0-3.0 HIGH RISK: Mechanical prosthetic valves 2.5-3.5 Performed By: #### C BC, GFR, ADIFF, ANEU, PRO, MG, BMP #### [place] [address] PT Coag (PPP) [Time] 27.3 s High 9.0-14.4 [facility] MAIN Comment on above: Order Comment: order ed secondary to warfarin order Result Comment: Effe ctive 02/22/08, Protime results may be affected by some antibiotics (i.e. Ciprofloxacin, Azithromycin, Bactrim) which may potentiate the action of oral anticoagulants, with further increases in Protime/INR. Performed By: #### C BC, GFR, ADIFF, ANEU, PRO, MG, BMP #### [place] [address] .Auto Diffon 01-03-2025 Basophil, Absolute 0.0 10 3/mcL Normal 0.0-0.3 [facility] MAIN Comment on above: Performed By: #### T ROPHS, ADIFF, CMP, PBNP, GFR, PRO, CBC, LANE FERNANDEZ #### [place] [address] Basophils/100 WBC (Bld) 0.6 % Normal 0.0-2.5 [facility] MAIN Comment on above: Performed By: #### T ROPHS, ADIFF, CMP, PBNP, GFR, PRO, CBC, LANE FERNANDEZ #### [place] [address] Eosinophil, Absolute 0.2 10 3/mcL Normal 0.0-0.7 [facility] MAIN Comment on above: Performed By: #### T ROPHS, ADIFF, CMP, PBNP, GFR, PRO, CBC, ANEULANE #### [address] [address] Eosinophils/100 WBC (Bld) 2.5 % Normal 0.0-6.0 [facility] MAIN Comment on above: Performed By: #### T ROPHS, ADIFF, CMP, PBNP, GFR, PRO, CBC, ANEULANE #### [address] [address] Lymphocyte, Absolute 1.0 10 3/mcL Normal 0.9-4.3 [facility] MAIN Comment on above: Performed By: #### T ROPHS, ADIFF, CMP, PBNP, GFR, PRO, CBC, LANE FERNANDEZ #### [address] [address] Lymphocytes/100 WBC (Bld) 15.9 % Low 20.0-40.0 [facility] MAIN Comment on above: Performed By: #### T ROPHS, ADIFF, CMP, PBNP, GFR, PRO, CBC, LANE FERNANDEZ #### [address] [address] Monocyte, Absolute 0.7 10 3/mcL Normal 0.1-1.4 [facility] MAIN Comment on above: Performed By: #### T ROPHS, ADIFF, CMP, PBNP, GFR, PRO, CBC, LANE FERNANDEZ #### [address] [address] Monocytes/100 WBC (Bld) 10.3 % Normal 2.0-13.0 [facility] MAIN Comment on above: Performed By: #### T ROPHS, ADIFF, CMP, PBNP, GFR, PRO, CBC, ANEULANE #### [address] [address] Neutrophils/100 WBC (Bld) 70.7 % Normal 50.0-75.0 [facility] MAIN Comment on above: Performed By: #### T ROPHS, ADIFF, CMP, PBNP, GFR, PRO, CBC, ANEULANE #### [address] [address] .GFRon 01-03-2025 Estimated Glomerular Filtration Rate 45 ml/min/1.73sqm Normal [facility] MAIN Comment on above: Result Comment: [...] PBNP, GFR, PRO, CBC, ANEU, MDW #### [place] [address] Estimated Glomerular Filtration Rate 41 ml/min/1.73sqm [facility] MAIN Comment on above: Result Comment: Stages [...] PBNP, GFR, PRO, CBC, ANEU, MDW #### [place] [address] .NEUABSon 01-03-2025 Neutrophil, Absolute 4.5 10 3/mcL Normal 2.3-8.1 [facility] MAIN Comment on above: Performed By: #### T EVELYN, ADIFF, CMP, PBNP, GFR, PRO, CBC, ANEU, MDW #### [place] [id number] BMPon 01-03-2025 BUN/Creatinine Ratio 27.3 ratio High 10.0-22.0 [facility] MAIN Comment on above: Performed By: #### T EVELYN, ADIFF, CMP, PBNP, GFR, PRO, CBC, LANE FERNANDEZ #### [address] [address] Calcium [Mass/Vol] 8.7 mg/dL Normal 8.7-10.4 [facility] MAIN Comment on above: Performed By: #### T ROBHS, ADIFF, CMP, PBNP, GFR, PRO, CBC, LANE FERNANDEZ #### [address] [address] Chloride [Moles/Vol] 102 mmol/L Normal 98-110 [facility] MAIN Comment on above: Performed By: #### T EVELYN, ADIFF, CMP, PBNP, GFR, PRO, CBC, LANE FERNANDEZ #### [address] [address] CO2 [Moles/Vol] 27 mmol/L Normal 22-32 [facility] MAIN Comment on above: Performed By: #### T EVELYN, ADIFF, CMP, PBNP, GFR, PRO, CBC, LANE FERNANDEZ #### [address] [address] Creatinine [Mass/Vol] 1.54 mg/dL High 0.60-1.40 [facility] MAIN Comment on above: Result Comment: Test ing performed on [employer] analyzer using enzymatic creatinine methodology. Performed By: #### T EVELYN, ADIFF, CMP, PBNP, GFR, PRO, CBC, LANE FERNANDEZ #### [address] [address] Electrolyte Balance 9.0 mEq/L Normal 4.0-15.0 [facility] MAIN Comment on above: Performed By: #### T EVELYN, ADIFF, CMP, PBNP, GFR, PRO, CBC, LANE FERNANDEZ #### [address] [address] Glucose [Mass/Vol] 193 mg/dL High 82-115 [facility] MAIN Comment on above: Performed By: #### T ROPHS, ADIFF, CMP, PBNP, GFR, PRO, CBC, LANE FERNANDEZ #### [address] [address] Potassium [Moles/Vol] 4.0 mmol/L Normal 3.5-5.0 [facility] MAIN Comment on above: Performed By: #### T ROPHS, ADIFF, CMP, PBNP, GFR, PRO, CBC, LANE FERNANDEZ #### [address] [address] Sodium [Moles/Vol] 138 mmol/L Normal 136-145 [facility] MA[facility] Comment on above: Performed By: #### T ROPHS, ADIFF, CMP, PBNP, GFR, PRO, CBC, LANE FERNANDEZ #### [address] [address] Urea nitrogen [Mass/Vol] 42.0 mg/dL High 8.0-22.0 [facility] MAIN Comment on above: Performed By: #### T ROPHS, ADIFF, CMP, PBNP, GFR, PRO, CBC, LANE FERNANDEZ #### [address] [address] BUN/Creatinine Ratio 26.5 ratio High 10.0-22.0 [facility] MAIN Comment on above: Performed By: #### T ROPHS, ADIFF, CMP, PBNP, GFR, PRO, CBC, LANE FERNANDEZ #### [address] [address] Calcium [Mass/Vol] 9.0 mg/dL Normal 8.7-10.4 [facility] MA[facility] Comment on above: Performed By: #### T ROPHS, ADIFF, CMP, PBNP, GFR, PRO, CBC, LANE FERNANDEZ #### [address] [address] Chloride [Moles/Vol] 103 mmol/L Normal 98-110 [facility] MAIN Comment on above: Performed By: #### T ROPHS, ADIFF, CMP, PBNP, GFR, PRO, CBC, ANEULANE #### [address] [address] CO2 [Moles/Vol] 26 mmol/L Normal 22-32 [facility] MAIN Comment on above: Performed By: #### T ROPNORBERTO, ADIFF, CMP, PBNP, GFR, PRO, CBC, LANE FERNANDEZ #### [address] [address] Creatinine [Mass/Vol] 1.66 mg/dL High 0.60-1.40 [facility] MAIN Comment on above: Result Comment: Test ing performed on [employer] analyzer using enzymatic creatinine methodology. Performed By: #### T ROPHS, ADIFF, CMP, PBNP, GFR, PRO, CBC, LANE FERNANDEZ #### [address] [address] Electrolyte Balance 9.0 mEq/L Normal 4.0-15.0 [facility] MAIN Comment on above: Performed By: #### T EVELYN, ADIFF, CMP, PBNP, GFR, PRO, CBC, LANE FERNANDEZ #### [address] [address] Glucose [Mass/Vol] 117 mg/dL High 82-115 [facility] MA[facility] Comment on above: Performed By: #### T EVELYN, ADIFF, CMP, PBNP, GFR, PRO, CBC, LANE FERNANDEZ #### [address] [address] Potassium [Moles/Vol] 4.1 mmol/L Normal 3.5-5.0 [facility] MAIN Comment on above: Performed By: #### T ROPHS, ADIFF, CMP, PBNP, GFR, PRO, CBC, LANE FERNANDEZ #### [address] [address] Sodium [Moles/Vol] 138 mmol/L Normal 136-145 [facility] Comment on above: Performed By: #### T ROPHS, ADIFF, CMP, PBNP, GFR, PRO, CBC, LANE FERNANDEZ #### [address] [address] Urea nitrogen [Mass/Vol] 44.0 mg/dL High 8.0-22.0 [facility] MAIN Comment on above: Performed By: #### T ROPHS, ADIFF, CMP, PBNP, GFR, PRO, CBC, LANE FERNANDEZ #### [place] [id number] CBCon 01-03-2025 Erythrocyte distribution width (RBC) [Ratio] 16.6 % High 11.5-15.5 [facility] MAIN Comment on above: Performed By: #### T ROPHS, ADIFF, CMP, PBNP, GFR, PRO, CBC, LANE FERNANDEZ #### [place] [address] Hematocrit (Bld) [Volume fraction] 31.4 % Low 40.0-52.0 [facility] MAIN Comment on above: Performed By: #### T ROPHS, ADIFF, CMP, PBNP, GFR, PRO, CBC, LANE FERNANDEZ #### [place] [address] Hgb 10.7 G/dL Low 13.0-17.5 [facility] MAIN Comment on above: Performed By: #### T ROPHS, ADIFF, CMP, PBNP, GFR, PRO, CBC, ANEULANE #### [place] [address] MCH (RBC) [Entitic mass] 29.0 pg Normal 27.0-33.0 [facility] MAIN Comment on above: Performed By: #### T ROPHS, ADIFF, CMP, PBNP, GFR, PRO, CBC, LANE FERNANDEZ #### [place] [address] MCHC 34.0 G/dL Normal 32.0-36.0 [facility] MAIN Comment on above: Performed By: #### T ROPHS, ADIFF, CMP, PBNP, GFR, PRO, CBC, LANE FERNANDEZ #### [place] [address] MCV (RBC) [Entitic vol] 85.2 fL Normal 81.0-100.0 [facility] MAIN Comment on above: Performed By: #### T ROPHS, ADIFF, CMP, PBNP, GFR, PRO, CBC, LANE FERNANDEZ #### [place] [id number] Platelet 114 10 3/mcL Low 150-450 [facility] MAIN Comment on above: Performed By: #### T EVELYN, ADIFF, CMP, PBNP, GFR, PRO, CBC, LANE FERNANDEZ #### [place] [address] Platelet mean volume (Bld) [Entitic vol] 8.6 fL Normal 6.4-10.5 [facility] MAIN Comment on above: Performed By: #### T EVELYN, ADIFF, CMP, PBNP, GFR, PRO, CBC, LANE FERNANDEZ #### [place] [address] RBC 3.68 10 6/mcL Low 4.50-6.00 [facility] MAIN Comment on above: Performed By: #### T EVELYN, ADIFF, CMP, PBNP, GFR, PRO, CBC, LANE FERNANDEZ #### [place] [address] WBC 6.4 10 3/mcL Normal 4.5-10.8 [facility] MAIN Comment on above: Performed By: #### T EVELYN, ADPHYLLIS, CMP, PBNP, GFR, PRO, CBC, LANE FERNANDEZ #### [place] [address] LABORATORYOrdered By: SYSTEM SYSTEM on 01-03-2025 Calcium [Mass/Vol] 8.7 mg/dL Normal 8.7 - 10. 4 mg/dL ADM SS Chloride [Moles/Vol] 102 mmol/L Normal 98 - 11 0 mEq/L ADM SS CO2 [Moles/Vol] 27 mmol/L Normal 22 - 32 mEq/L ADM SS Creatinine [Mass/Vol] 1.54 mg/dL High 0.60 - 1.40 mg/dL ADM SS Comment on above: Interpretive Data: T esting performed on [employer] analyzer using enzymatic creatinine methodology. Electrolyte Balance 9.0 mEq/L Normal 4.0 - 15 .0 mEq/L ADM SS Estimated Glomerular Filtration Rate 45 [...] 4.0 mmol/L Normal 3.5 - 5.0 mEq/L AH ADM SS Sodium [Moles/Vol] 138 mmol/L Normal 136 - 145 mEq/L AH ADM SS Urea nitrogen [Mass/Vol] 42.0 mg/dL High 8.0 - 22.0 mg/dL AH ADM SS Urea nitrogen/Creatinine [Mass ratio] 27.3 ratio High 10.0 - 22.0 ratio AH ADM SS Basophils (Bld) [#/Vol] 0.0 103/mcL Normal 0.0 - 0.3 10^3/mcL AH Workflow SS Basophils/100 WBC (Bld) 0.6 % Normal 0.0 - 2.5 % Workflow SS Calcium [Mass/Vol] 9.0 mg/dL Normal 8.7 - 10. 4 mg/dL AH ADM SS Chloride [Moles/Vol] 103 mmol/L Normal 98 - 11 0 mEq/L AH ADM SS CO2 [Moles/Vol] 26 mmol/L Normal 22 - 32 mEq/L AH ADM SS Creatinine [Mass/Vol] 1.66 mg/dL High 0.60 - 1.40 mg/dL AH ADM SS Comment on above: Interpretive Data: T esting performed on [employer] analyzer using enzymatic creatinine methodology. Electrolyte [...] 117 mg/dL High 82 - 115 mg/dL ADM SS Hematocrit (Bld) [Volume fraction] 31.4 % Low 40.0 - 52.0 % Workflow SS Hemoglobin (Bld) [Mass/Vol] 10.7 G/dL Low 13.0 - 17.5 G/dL Workflow SS Lymphocytes (Bld) [#/Vol] 1.0 103/mcL Normal 0.9 - 4.3 10^3/mcL Workflow SS Lymphocytes/100 WBC (Bld) 15.9 % Low 20.0 - 40.0 % Workflow SS Magnesium [Mass/Vol] 2.1 mg/dL Normal 1.6 - 2 .4 mg/dL ADM SS MCH (RBC) [Entitic mass] 29.0 pg Normal 27.0 - 33.0 pg Workflow SS MCHC 34.0 G/dL Normal 32.0 - 36.0 G/dL Workflow SS MCV (RBC) [Entitic vol] 85.2 fL Normal 81.0 - 100.0 fL Workflow SS Monocytes (Bld) [#/Vol] 0.7 103/mcL Normal 0.1 - 1.4 10^3/mcL Workflow SS Monocytes/100 WBC (Bld) 10.3 % Normal 2.0 - 13.0 % Workflow SS Neutrophils (Bld) [#/Vol] 4.5 103/mcL Normal 2.3 - 8.1 10^3/mcL AH Workflow SS Neutrophils/100 WBC (Bld) 70.7 % Normal 50.0 - 75.0 % AH Workflow SS Platelet mean volume (Bld) [Entitic vol] 8.6 fL Normal 6.4 - 10.5 fL AH Workflow SS Platelets (Bld) [#/Vol] 114 103/mcL Low 150 - 450 10^3/mcL Workflow SS Potassium [Moles/Vol] 4.1 mmol/L Normal 3.5 - 5.0 mEq/L ADM SS PT Coag (PPP) [Time] 20.7 [...] Comment on above: Interpretive Data: Reid pacheco [employer] (CHEST, 1991, 102:312S-25S) [...] 01-03-2025 Magnesium [Mass/Vol] 2.1 mg/dL Normal 1.6-2.4 [facility] MAIN Comment on above: Performed By: #### T ROPHS, ADIFF, CMP, PBNP, GFR, PRO, CBC, ANEU, MDW #### [address] [address] PROon 01-03-2025 INR Coag (PPP) [Relative time] 1.8 {INR} Normal [facility] MAIN Comment on above: Order Comment: order ed secondary to warfarin order Result Comment: [employer] [place] [employer] (CHEST, 1992, 102:312S-25S) recommended therapeutic range for oral anticoagulant therapy is: LOW RISK: Prophylaxis of venous thrombosis INR: 2.0-3.0 Treatment of pulmonary embolism 2.0-3.0 Prevention of systemic embolism 2.0-3.0 HIGH RISK: Mechanical prosthetic valves 2.5-3.5 Performed By: #### T EVELYN, ADIFF, CMP, PBNP, GFR, PRO, CBC, LANE FERNANDEZ #### [place] [address] PT Coag (PPP) [Time] 20.7 s High 9.0-14.4 [facility] MAIN Comment on above: Order Comment: order ed secondary to warfarin order Result Comment: Effe ctive 02/22/08, Protime results may be affected by some antibiotics (i.e. Ciprofloxacin, Azithromycin, Bactrim) which may potentiate the action of oral anticoagulants, with further increases in Protime/INR. Performed By: #### T EVELYN, ADIFF, CMP, PBNP, GFR, PRO, CBC, JIM, LANE #### [address] [id number] .Auto Diffon 01-02-2025 Basophil, Absolute 0.0 10 3/mcL Normal 0.0-0.3 [facility] Comment on above: Performed By: #### T ROBHS, ADIFF, CMP, PBNP, GFR, PRO, CBC, LANE FERNANDEZ #### [place] [id number] Basophils/100 WBC (Bld) 0.6 % Normal 0.0-2.5 [facility] Comment on above: Performed By: #### T EVELYN, ADIFF, CMP, PBNP, GFR, PRO, CBC, LANE FERNANDEZ #### [place] [id number] Eosinophil, Absolute 0.2 10 3/mcL Normal 0.0-0.7 [facility] Comment on above: Performed By: #### T ROPHS, ADIFF, CMP, PBNP, GFR, PRO, CBC, LANE FERNANDEZ #### [address] [address] Eosinophils/100 WBC (Bld) 2.4 % Normal 0.0-6.0 [facility] Comment on above: Performed By: #### T ROPHS, ADIFF, CMP, PBNP, GFR, PRO, CBC, ANEULANE #### [address] [address] Lymphocyte, Absolute 0.9 10 3/mcL Normal 0.9-4.3 [facility] Comment on above: Performed By: #### T ROPHS, ADIFF, CMP, PBNP, GFR, PRO, CBC, LANE FERNANDEZ #### [address] [address] Lymphocytes/100 WBC (Bld) 12.6 % Low 20.0-40.0 [facility] Comment on above: Performed By: #### T ROPHS, ADIFF, CMP, PBNP, GFR, PRO, CBC, LANE FERNANDEZ #### [address] [address] Monocyte, Absolute 0.8 10 3/mcL Normal 0.1-1.4 [facility] Comment on above: Performed By: #### T ROPHS, ADIFF, CMP, PBNP, GFR, PRO, CBC, LANE FERNANDEZ #### [address] [address] Monocytes/100 WBC (Bld) 10.3 % Normal 2.0-13.0 [facility] Comment on above: Performed By: #### T ROPHS, ADIFF, CMP, PBNP, GFR, PRO, CBC, LANE FERNANDEZ #### [address] [address] Neutrophils/100 WBC (Bld) 74.1 % Normal 50.0-75.0 [facility] Comment on above: Performed By: #### T ROPHS, ADIFF, CMP, PBNP, GFR, PRO, CBC, LANE FERNANDEZ #### [address] [address] .GFRon 01-02-2025 Estimated Glomerular Filtration Rate 51 ml/min/1.73sqm Normal [facility] Comment on above: Result Comment: Stages [...] eGFR results. Performed By: #### T EVELYN, DANIEL, CMP, PBNP, GFR, PRO, CBC, LANE FERNANDEZ #### [address] [address] .NEUABSon 01-02-2025 Neutrophil, Absolute 5.4 10 3/mcL Normal 2.3-8.1 [facility] Comment on above: Performed By: #### T DANIEL RIVAS, CMP, PBNP, GFR, PRO, CBC, LANE FERNANDEZ #### [address] [address] BMPon 01-02-2025 BUN/Creatinine Ratio 28.1 ratio High 10.0-22.0 [facility] Comment on above: Performed By: #### T EVELYN, ADIFF, CMP, PBNP, GFR, PRO, CBC, LANE FERNANDEZ #### [address] [address] Calcium [Mass/Vol] 9.4 mg/dL Normal 8.7-10.4 ACCESS [facility] Comment on above: Performed By: #### T DANIEL RIVAS, CMP, PBNP, GFR, PRO, CBC, LANE FERNANDEZ #### [address] [address] Chloride [Moles/Vol] 104 mmol/L Normal 98-110 [facility] Comment on above: Performed By: #### T ROPHS, ADIFF, CMP, PBNP, GFR, PRO, CBC, LANE FERNANDEZ #### [address] [address] CO2 [Moles/Vol] 28 mmol/L Normal 22-32 [facility] Comment on above: Performed By: #### T ROPHS, ADIFF, CMP, PBNP, GFR, PRO, CBC, LANE FERNANDEZ #### [address] [address] Creatinine [Mass/Vol] 1.39 mg/dL Normal 0.60-1.40 [facility] Comment on above: Result Comment: Test ing performed on [email or web address] analyzer using enzymatic creatinine methodology. Performed By: #### T ROPHS, ADIFF, CMP, PBNP, GFR, PRO, CBCJIM MDW #### [place] [id number] Electrolyte Balance 8.0 mEq/L Normal 4.0-15.0 [facility] Comment on above: Performed By: #### T ROPHS, ADIFF, CMP, PBNP, GFR, PRO, CBCJIM MDW #### [address] [address] Glucose [Mass/Vol] 104 mg/dL Normal 82-115 [facility] Comment on above: Performed By: #### T ROPHS, ADIFF, CMP, PBNP, GFR, PRO, CBCJIM MDW #### [address] [address] Potassium [Moles/Vol] 4.1 mmol/L Normal 3.5-5.0 [facility] Comment on above: Performed By: #### T ROPHS, ADIFF, CMP, PBNP, GFR, PRO, CBCJIM MDW #### [address] [address] Sodium [Moles/Vol] 140 mmol/L Normal 136-145 [facility] Comment on above: Performed By: #### T ROPHS, ADIFF, CMP, PBNP, GFR, PRO, CBC, LANE FERNANDEZ #### [place] [address] Urea nitrogen [Mass/Vol] 39.0 mg/dL High 8.0-22.0 [facility] Comment on above: Performed By: #### T ROPHS, ADIFF, CMP, PBNP, GFR, PRO, CBC, LANE FERNANDEZ #### [place] [id number] CBCon 01-02-2025 Erythrocyte distribution width (RBC) [Ratio] 16.9 % High 11.5-15.5 [facility] Comment on above: Performed By: #### T ROPHS, ADIFF, CMP, PBNP, GFR, PRO, CBC, LANE FERNANDEZ #### [place] [address] Hematocrit (Bld) [Volume fraction] 32.0 % Low 40.0-52.0 [facility] Comment on above: Performed By: #### T ROPHS, ADIFF, CMP, PBNP, GFR, PRO, CBC, LANE FERNANDEZ #### [place] [address] Hgb 10.8 G/dL Low 13.0-17.5 [facility] Comment on above: Performed By: #### T ROPHS, ADIFF, CMP, PBNP, GFR, PRO, CBC, LANE FERNANDEZ #### [place] [address] MCH (RBC) [Entitic mass] 28.8 pg Normal 27.0-33.0 [facility] Comment on above: Performed By: #### T ROPHS, ADIFF, CMP, PBNP, GFR, PRO, CBC, LANE FERNANDEZ #### [place] [address] MCHC 33.8 G/dL Normal 32.0-36.0 [facility] Comment on above: Performed By: #### T ROPHS, ADIFF, CMP, PBNP, GFR, PRO, CBC, LANE FERNANDEZ #### [place] [address] MCV (RBC) [Entitic vol] 85.2 fL Normal 81.0-100.0 [facility] Comment on above: Performed By: #### T ROPHS, ADIFF, CMP, PBNP, GFR, PRO, CBC, LANE FERNANDEZ #### [place] [address] Platelet 121 10 3/mcL Low 150-450 [facility] Comment on above: Performed By: #### T ROPHS, ADIFF, CMP, PBNP, GFR, PRO, CBC, LANE FERNANDEZ #### [place] [address] Platelet mean volume (Bld) [Entitic vol] 8.2 fL Normal 6.4-10.5 [facility] Comment on above: Performed By: #### T ROPHS, ADIFF, CMP, PBNP, GFR, PRO, CBC, LANE FERNANDEZ #### [place] [address] RBC 3.76 10 6/mcL Low 4.50-6.00 [facility] Comment on above: Performed By: #### T ROPHS, ADIFF, CMP, PBNP, GFR, PRO, CBC, LANE FERNANDEZ #### [place] [address] WBC 7.3 10 3/mcL Normal 4.5-10.8 [facility] Comment on above: Performed By: #### T ROPHS, ADIFF, CMP, PBNP, GFR, PRO, CBC, LANE FERNANDEZ #### [place] [address] LABORATORYOrdered By: SYSTEM SYSTEM on 01-02-2025 Basophils (Bld) [#/Vol] 0.0 103/mcL Normal 0.0 - 0.3 10^3/mcL AH Workflow SS Basophils/100 WBC (Bld) 0.6 % Normal 0.0 - 2.5 % AH Workflow SS Eosinophils (Bld) [#/Vol] 0.2 103/mcL Normal 0.0 - 0.7 10^3/mcL AH Workflow SS Eosinophils/100 WBC (Bld) 2.4 % Normal 0.0 - 6.0 % AH Workflow SS Erythrocyte distribution width (RBC) [Ratio] 16.9 % High 11.5 - 15.5 % Workflow SS Hematocrit (Bld) [Volume fraction] 32.0 % Low 40.0 - 52.0 % Workflow SS Hemoglobin (Bld) [Mass/Vol] 10.8 G/dL Low 13.0 - 17.5 G/dL Workflow SS Lymphocytes (Bld) [#/Vol] 0.9 103/mcL Normal 0.9 - 4.3 10^3/mcL Workflow SS Lymphocytes/100 WBC (Bld) 12.6 % Low 20.0 - 40.0 % Workflow SS Magnesium [Mass/Vol] 2.1 mg/dL Normal [...] High 9.0 - 1 4.4 seconds [facility] Comment on above: Interpretive Data: E ffective 02/22/08, Protime results may be affected by some antibiotics (i.e. Ciprofloxacin, Azithromycin, Bactrim) which may potentiate the action of oral anticoagulants, with further increases in Protime/INR. PT International Ratio 1.8 ratio Invalid Interpretation Code [facility] Comment on above: Interpretive Data: T he [employer] [employer] (CHEST, 1992, 102:312S-25S) recommended therapeutic range for oral anticoagulant therapy is: LOW RISK: Prophylaxis of venous thrombosis INR: 2.0-3.0 Treatment of pulmonary embolism 2.0-3.0 Prevention of systemic embolism 2.0-3.0 HIGH RISK: Mechanical prosthetic valves 2.5-3.5 RBC (Bld) [#/Vol] 3.76 106/mcL Low 4.50 - 6.0 0 10^6/mcL AH Workflow SS WBC (Bld) [#/Vol] 7.3 103/mcL Normal 4.5 - 10.8 10^3/mcL AH Workflow SS MGon 01-02-2025 Magnesium [Mass/Vol] 2.1 mg/dL Normal 1.6-2.4 [facility] Comment on above: Performed By: #### T DANIEL RIVAS, CMP, PBNP, GFR, PRO, CBC, ANEU, MDW #### [address] [address] PROon 01-02-2025 INR Coag (PPP) [Relative time] 1.8 {INR} Normal [facility] Comment on above: Order Comment: order ed secondary to warfarin order Result Comment: The [place] [employer] (CHEST, 1992, 102:312S-25S) recommended therapeutic range for oral anticoagulant therapy is: LOW RISK: Prophylaxis of venous thrombosis INR: 2.0-3.0 Treatment of pulmonary embolism 2.0-3.0 Prevention of systemic embolism 2.0-3.0 HIGH RISK: Mechanical prosthetic valves 2.5-3.5 Performed By: #### T DANIEL RIVAS, CMP, PBNP, GFR, PRO, CBC, ANEU, MDW #### [facility] [address] [place] [address] PT Coag (PPP) [Time] 21.2 s High 9.0-14.4 [facility] Comment on above: Order Comment: order ed secondary to warfarin order Result Comment: Effe ctive 02/22/08, Protime results may be affected by some antibiotics (i.e. Ciprofloxacin, Azithromycin, Bactrim) which may potentiate the action of oral anticoagulants, with further increases in Protime/INR. Performed By: #### T EVELYN, ADIFF, CMP, PBNP, GFR, PRO, CBC, ANEU, W #### [address] [address] .Auto Diffon 01-01-2025 Basophil, Absolute 0.1 10 3/mcL Normal 0.0-0.3 [facility] Comment on above: Performed By: #### T ROPHS, ADIFF, CMP, PBNP, GFR, PRO, CBC, ANEU, W #### [address] [address] Basophils/100 WBC (Bld) 0.7 % Normal 0.0-2.5 [facility] Comment on above: Performed By: #### T ROPHS, ADIFF, CMP, PBNP, GFR, PRO, CBC, ANEU, LANE #### [address] [address] Eosinophil, Absolute 0.2 10 3/mcL Normal 0.0-0.7 [facility] Comment on above: Performed By: #### T ROPHS, ADIFF, CMP, PBNP, GFR, PRO, CBC, ANEU, LANE #### [address] [address] Eosinophils/100 WBC (Bld) 2.7 % Normal 0.0-6.0 [facility] Comment on above: Performed By: #### T ROPHS, ADIFF, CMP, PBNP, GFR, PRO, CBC, ANEU, LANE #### [address] [address] Lymphocyte, Absolute 0.8 10 3/mcL Low 0.9-4.3 [facility] Comment on above: Performed By: #### T ROPHS, ADIFF, CMP, PBNP, GFR, PRO, CBC, ANEULANE #### [address] [address] Lymphocytes/100 WBC (Bld) 12.2 % Low 20.0-40.0 [facility] Comment on above: Performed By: #### T ROPHS, ADIFF, CMP, PBNP, GFR, PRO, CBC, ANEULANE #### [address] [address] Monocyte, Absolute 0.7 10 3/mcL Normal 0.1-1.4 [facility] Comment on above: Performed By: #### T ROPNORBERTO, ADIFF, CMP, PBNP, GFR, PRO, CBC, ANEU, LAEN #### [address] [address] Monocytes/100 WBC (Bld) 10.3 % Normal 2.0-13.0 [facility] Comment on above: Performed By: #### T ROPHS, ADIFF, CMP, PBNP, GFR, PRO, CBC, ANEULANE #### [address] [address] Neutrophils/100 WBC (Bld) 74.1 % Normal 50.0-75.0 [facility] Comment on above: Performed By: #### T EVELYN, ADIFF, CMP, PBNP, GFR, PRO, CBC, LANE FERNANDEZ #### [place] [id number] .GFRon 01-01-2025 Estimated Glomerular Filtration Rate 56 ml/min/1.73sqm Normal [facility] Comment on above: Result Comment: Stages [...] PBNP, GFR, PRO, CBC, ANEU, LANE #### [address] [address] .NEUABSon 01-01-2025 Neutrophil, Absolute 5.1 10 3/mcL Normal 2.3-8.1 [facility] Comment on above: Performed By: #### T ROPHS, ADIFF, CMP, PBNP, GFR, PRO, CBC, LANE FERNANDEZ #### [address] [address] [facility] 01-01-2025 BUN/Creatinine Ratio 29.5 ratio High 10.0-22.0 [facility] Comment on above: Performed By: #### T ROPHS, ADIFF, CMP, PBNP, GFR, PRO, CBC, LANE FERNANDEZ #### [place] [address] Calcium [Mass/Vol] 8.9 mg/dL Normal 8.7-10.4 [facility] Comment on above: Performed By: #### T ROPHS, ADIFF, CMP, PBNP, GFR, PRO, CBC, LANE FERNANDEZ #### [place] [id number] Chloride [Moles/Vol] 106 mmol/L Normal 98-110 [facility] Comment on above: Performed By: #### T ROPHS, ADIFF, CMP, PBNP, GFR, PRO, CBC, LANE FERNANDEZ #### [place] [id number] CO2 [Moles/Vol] 25 mmol/L Normal 22-32 [facility] Comment on above: Performed By: #### T ROPHS, ADIFF, CMP, PBNP, GFR, PRO, CBC, LANE FERNANDEZ #### [place] [id number] Creatinine [Mass/Vol] 1.29 mg/dL Normal 0.60-1.40 [facility] Comment on above: Result Comment: Test ing performed on [employer] analyzer using enzymatic creatinine methodology. Performed By: #### T ROPHS, ADIFF, CMP, PBNP, GFR, PRO, CBC, LANE FERNANDEZ #### [place] [address] Electrolyte Balance 8.0 mEq/L Normal 4.0-15.0 [facility] Comment on above: Performed By: #### T ROPHS, ADIFF, CMP, PBNP, GFR, PRO, CBC, LANE FERNANDEZ #### [address] [address] Glucose [Mass/Vol] 106 mg/dL Normal 82-115 [facility] Comment on above: Performed By: #### T EVELYN, ADIFF, CMP, PBNP, GFR, PRO, CBC, LANE FERNANDEZ #### [address] [address] Potassium [Moles/Vol] 4.1 mmol/L Normal 3.5-5.0 [facility] Comment on above: Performed By: #### T ROPHS, ADIFF, CMP, PBNP, GFR, PRO, CBCJIM MDW #### [place] [id number] Sodium [Moles/Vol] 139 mmol/L Normal 136-145 [facility] Comment on above: Performed By: #### T EVELYN, ADIFF, CMP, PBNP, GFR, PRO, CBCJIM MDW #### [place] [id number] Urea nitrogen [Mass/Vol] 38.0 mg/dL High 8.0-22.0 [facility] Comment on above: Performed By: #### T EVELYN, ADIFF, CMP, PBNP, GFR, PRO, CBCJIM MDW #### [address] [address] CBCon 01-01-2025 Erythrocyte distribution width (RBC) [Ratio] 16.9 % High 11.5-15.5 [facility] Comment on above: Performed By: #### T ROPHS, ADIFF, CMP, PBNP, GFR, PRO, CBCJIM MDW #### [place] [phone] Hematocrit (Bld) [Volume fraction] 31.8 % Low 40.0-52.0 [facility] Comment on above: Performed By: #### T ROPHS, ADIFF, CMP, PBNP, GFR, PRO, CBCJIM MDW #### [place] [id number] Hgb 10.8 G/dL Low 13.0-17.5 [facility] Comment on above: Performed By: #### T ROPHS, ADIFF, CMP, PBNP, GFR, PRO, CBC, LANE FERNANDEZ #### [place] [address] MCH (RBC) [Entitic mass] 29.1 pg Normal 27.0-33.0 [facility] Comment on above: Performed By: #### T ROPHS, ADIFF, CMP, PBNP, GFR, PRO, CBC, LANE FERNANDEZ #### [place] [address] MCHC 34.0 G/dL Normal 32.0-36.0 [facility] Comment on above: Performed By: #### T ROPHS, ADIFF, CMP, PBNP, GFR, PRO, CBC, LANE FERNANDEZ #### [place] [address] MCV (RBC) [Entitic vol] 85.5 fL Normal 81.0-100.0 [facility] Comment on above: Performed By: #### T ROPHS, ADIFF, CMP, PBNP, GFR, PRO, CBC, LANE FERNANDEZ #### [place] [address] Platelet 130 10 3/mcL Low 150-450 [facility] Comment on above: Performed By: #### T ROPHS, ADIFF, CMP, PBNP, GFR, PRO, CBC, LANE FERNANDEZ #### [place] [address] Platelet mean volume (Bld) [Entitic vol] 9.2 fL Normal 6.4-10.5 [facility] Comment on above: Performed By: #### T ROPHS, ADIFF, CMP, PBNP, GFR, PRO, CBC, LANE FERNANDEZ #### [place] [address] RBC 3.72 10 6/mcL Low 4.50-6.00 [facility] Comment on above: Performed By: #### T ROPHS, ADIFF, CMP, PBNP, GFR, PRO, CBC, LANE FERNANDEZ #### [address] [address] WBC 6.9 10 3/mcL Normal 4.5-10.8 [facility] Comment on above: Performed By: #### T DANIEL RIVAS, CMP, PBNP, GFR, PRO, CBC, LANE FERNANDEZ #### [address] [address] MGon 01-01-2025 Magnesium [Mass/Vol] 2.1 mg/dL Normal 1.6-2.4 [facility] Comment on above: Performed By: #### T EVELYN, DANIEL, CMP, PBNP, GFR, PRO, CBC, LANE FERNANDEZ #### [place] [id number] PROon 01-01-2025 INR Coag (PPP) [Relative time] 1.9 {INR} Normal [facility] Comment on above: Order Comment: order ed secondary to warfarin order Result Comment: The [place] [employer] (CHEST, 1992, 102:312S-25S) recommended therapeutic range for oral anticoagulant therapy is: LOW RISK: Prophylaxis of venous thrombosis INR: 2.0-3.0 Treatment of pulmonary embolism 2.0-3.0 Prevention of systemic embolism 2.0-3.0 HIGH RISK: Mechanical prosthetic valves 2.5-3.5 Performed By: #### T EVELYN, DANIEL, DAMIAN, PBNP, GFR, PRO, CBC, LANE FERNANDEZ #### [address] [address] PT Coag (PPP) [Time] 21.8 s High 9.0-14.4 [facility] Comment on above: Order Comment: order ed secondary to warfarin order Result Comment: Effe ctive 02/22/08, Protime results may be affected by some antibiotics (i.e. Ciprofloxacin, Azithromycin, Bactrim) which may potentiate the action of oral anticoagulants, with further increases in Protime/INR. Performed By: #### T EVELYN, DANIEL, CMP, PBNP, GFR, PRO, CBC, LANE FERNANDEZ #### [address] [address] .Auto Diffon 12-31-2024 Basophil, Absolute 0.0 10 3/mcL Normal 0.0-0.3 [facility] Comment on above: Performed By: #### T ROPHS, ADIFF, CMP, PBNP, GFR, PRO, CBC, ANEULANE #### [address] [address] Basophils/100 WBC (Bld) 0.6 % Normal 0.0-2.5 [facility] Comment on above: Performed By: #### T ROPHS, ADIFF, CMP, PBNP, GFR, PRO, CBC, ANEUALNE #### [address] [address] Eosinophil, Absolute 0.2 10 3/mcL Normal 0.0-0.7 [facility] Comment on above: Performed By: #### T ROPHS, ADIFF, CMP, PBNP, GFR, PRO, CBC, ANEULANE #### [address] [address] Eosinophils/100 WBC (Bld) 2.8 % Normal 0.0-6.0 [facility] Comment on above: Performed By: #### T ROPHS, ADIFF, CMP, PBNP, GFR, PRO, CBC, ANEULANE #### [address] [address] Lymphocyte, Absolute 0.7 10 3/mcL Low 0.9-4.3 [facility] Comment on above: Performed By: #### T ROPHS, ADIFF, CMP, PBNP, GFR, PRO, CBC, LANE FERNANDEZ #### [address] [address] Lymphocytes/100 WBC (Bld) 11.1 % Low 20.0-40.0 [facility] Comment on above: Performed By: #### T ROPHS, ADIFF, CMP, PBNP, GFR, PRO, CBC, ANEULANE #### [address] [address] Monocyte, Absolute 0.7 10 3/mcL Normal 0.1-1.4 [facility] Comment on above: Performed By: #### T ROPHS, ADIFF, CMP, PBNP, GFR, PRO, CBC, ANEULANE #### [address] [address] Monocytes/100 WBC (Bld) 9.7 % Normal 2.0-13.0 [facility] Comment on above: Performed By: #### T ROPHS, ADIFF, CMP, PBNP, GFR, PRO, CBC, ANEU, MDW #### [address] [address] Neutrophils/100 WBC (Bld) 75.8 % High 50.0-75.0 [facility] Comment on above: Performed By: #### T ROPHS, ADIFF, CMP, PBNP, GFR, PRO, CBC, ANEU, W #### [address] [address] .GFRon 12-31-2024 Estimated Glomerular Filtration Rate 51 ml/min/1.73sqm Normal [facility] Comment on above: Result Comment: Stages [...] PBNP, GFR, PRO, CBC, ANEU, MDW #### [address] [address] .MDWon 12-31-2024 Monocyte Distribution Width 19.60 Normal 0.00-20.00 [facility] Comment on above: Result Comment: For ED adult patients suspected of sepsis, MDW<=20.0 does not rule out sepsis or risk of sepsis Performed By: #### T ROPHS, ADIFF, CMP, PBNP, GFR, PRO, CBC, ANEU, MDW #### [address] [address] .NEUABSon 12-31-2024 Neutrophil, Absolute 5.1 10 3/mcL Normal 2.3-8.1 [facility] Comment on above: Performed By: #### T ROPNORBERTO, ADIFF, CMP, PBNP, GFR, PRO, CBC, LANE FERNANDEZ #### [place] [address] CBCon 12-31-2024 Erythrocyte distribution width (RBC) [Ratio] 16.8 % High 11.5-15.5 [facility] Comment on above: Performed By: #### T ROPHS, ADIFF, CMP, PBNP, GFR, PRO, CBC, LANE FERNANDEZ #### [place] [address] Hematocrit (Bld) [Volume fraction] 34.5 % Low 40.0-52.0 [facility] Comment on above: Performed By: #### T EVELYN, ADIFF, CMP, PBNP, GFR, PRO, CBC, LANE FERNANDEZ #### [place] [address] Hgb 11.9 G/dL Low 13.0-17.5 [facility] Comment on above: Performed By: #### T EVELYN, ADIFF, CMP, PBNP, GFR, PRO, CBC, LANE FERNANDEZ #### [place] [address] MCH (RBC) [Entitic mass] 29.1 pg Normal 27.0-33.0 [facility] Comment on above: Performed By: #### T ROPHS, ADIFF, CMP, PBNP, GFR, PRO, CBC, LANE FERNANDEZ #### [place] [address] MCHC 34.4 G/dL Normal 32.0-36.0 [facility] Comment on above: Performed By: #### T ROPHS, ADIFF, CMP, PBNP, GFR, PRO, CBC, LANE FERNANDEZ #### [place] [address] MCV (RBC) [Entitic vol] 84.7 fL Normal 81.0-100.0 [facility] Comment on above: Performed By: #### T ROPHS, ADIFF, CMP, PBNP, GFR, PRO, CBC, LANE FERNANDEZ #### [address] [address] Platelet 133 10 3/mcL Low 150-450 [facility] Comment on above: Performed By: #### T ROPHS, ADIFF, CMP, PBNP, GFR, PRO, CBC, LANE FERNANDEZ #### [place] [address] Platelet mean volume (Bld) [Entitic vol] 8.9 fL Normal 6.4-10.5 [facility] Comment on above: Performed By: #### T ROPHS, ADIFF, CMP, PBNP, GFR, PRO, CBC, LANE FERNANDEZ #### [address] [address] RBC 4.08 10 6/mcL Low 4.50-6.00 [facility] Comment on above: Performed By: #### T ROPHS, ADIFF, CMP, PBNP, GFR, PRO, CBC, LANE FERNANDEZ #### [address] [address] WBC 6.7 10 3/mcL Normal 4.5-10.8 [facility] Comment on above: Performed By: #### T ROPHS, ADIFF, CMP, PBNP, GFR, PRO, CBC, LANE FERNANDEZ #### [address] [address] CMPon 12-31-2024 Albumin Level 3.7 G/dL Normal 3.2-4.8 [facility] Comment on above: Performed By: #### T ROPHS, ADIFF, CMP, PBNP, GFR, PRO, CBC, LANE FERNANDEZ #### [place] [id number] Albumin/Globulin [Mass ratio] 1.0 {ratio} Normal 0.9-1.6 [facility] Comment on above: Performed By: #### T ROPHS, ADIFF, CMP, PBNP, GFR, PRO, CBC, LANE FERNANDEZ #### [address] [address] ALP [Catalytic activity/Vol] 80 U/L Normal 38-126 [facility] Comment on above: Performed By: #### T ROPNORBERTO, ADIFF, CMP, PBNP, GFR, PRO, CBC, JIM, LANE #### [address] [address] ALT [Catalytic activity/Vol] 13 U/L Normal 12-55 [facility] Comment on above: Performed By: #### T ROBHS, ADIFF, CMP, PBNP, GFR, PRO, CBC, LANE FERNANDEZ #### [place] [id number] AST [Catalytic activity/Vol] 22 U/L Normal 8-34 [facility] Comment on above: Performed By: #### T EVELYN, ADIFF, CMP, PBNP, GFR, PRO, CBC, LANE FERNANDEZ #### [place] [id number] Bili Total 1.10 mg/dL Normal 0.20-1.20 [facility] Comment on above: Result Comment: Use of this assay is not recommended for patients undergoing treatment with eltrombopag due to the potential for falsely elevated results. Performed By: #### T EVELYN, ADIFF, CMP, PBNP, GFR, PRO, CBC, LANE FERNANDEZ #### [place] [id number] BUN/Creatinine Ratio 29.3 ratio High 10.0-22.0 [facility] Comment on above: Performed By: #### T ROPHS, ADIFF, CMP, PBNP, GFR, PRO, CBC, LANE FERNANDEZ #### [place] [id number] Calcium [Mass/Vol] 9.4 mg/dL Normal 8.7-10.4 [facility] Comment on above: Performed By: #### T ROPHS, ADIFF, CMP, PBNP, GFR, PRO, CBC, LANE FERNANDEZ #### [place] [id number] Chloride [Moles/Vol] 102 mmol/L Normal 98-110 [facility] Comment on above: Performed By: #### T ROPHS, ADIFF, CMP, PBNP, GFR, PRO, CBC, LANE FERNANDEZ #### [place] [address] CO2 [Moles/Vol] 28 mmol/L Normal 22-32 [facility] Comment on above: Performed By: #### T ROPHS, ADIFF, CMP, PBNP, GFR, PRO, CBC, LANE FERNANDEZ #### [place] [address] Creatinine [Mass/Vol] 1.40 mg/dL Normal 0.60-1.40 [facility] Comment on above: Result Comment: Test ing performed on [employer] analyzer using enzymatic creatinine methodology. Performed By: #### T ROPHS, ADIFF, CMP, PBNP, GFR, PRO, CBC, LANE FERNANDEZ #### [place] [address] Electrolyte Balance 8.0 mEq/L Normal 4.0-15.0 [facility] Comment on above: Performed By: #### T ROPHS, ADIFF, CMP, PBNP, GFR, PRO, CBC, LANE FERNANDEZ #### [place] [id number] Globulin 3.7 G/dL Normal 2.5-4.2 [facility] Comment on above: Performed By: #### T ROPHS, ADIFF, CMP, PBNP, GFR, PRO, CBC, LANE FERNANDEZ #### [place] [id number] Glucose [Mass/Vol] 141 mg/dL High 82-115 [facility] Comment on above: Performed By: #### T ROPHS, ADIFF, CMP, PBNP, GFR, PRO, CBC, LANE FERNANDEZ #### [place] [id number] Potassium [Moles/Vol] 4.0 mmol/L Normal 3.5-5.0 [facility] Comment on above: Performed By: #### T ROPHS, ADIFF, CMP, PBNP, GFR, PRO, CBC, LANE FERNANDEZ #### [address] [id number] Sodium [Moles/Vol] 138 mmol/L Normal 136-145 [facility] Comment on above: Performed By: #### T EVELYN, DANIEL, CMP, PBNP, GFR, PRO, CBC, LANE FERNANDEZ #### [place] [id number] Total Protein 7.4 G/dL Normal 5.7-8.2 [facility] Comment on above: Performed By: #### T EVELYN, ADIFF, CMP, PBNP, GFR, PRO, CBCJIM MDW #### [place] [address] Urea nitrogen [Mass/Vol] 41.0 mg/dL High 8.0-22.0 [facility] Comment on above: Performed By: #### T EVELYN, ADPHYLLIS, CMP, PBNP, GFR, PRO, CBCJIM MDW #### [place] [id number] LABORATORYOrdered By: SYSTEM SYSTEM on 12-31-2024 Troponin I.cardiac DL <= 0.01 ng/mL [Mass/Vol] 65 ng/L High 0 - 54 ng/L [facility] Comment on above: Interpretive Data: High Sensitive Troponin I Reference Ranges: Female: 0-34 ng/L Male: 0-54 ng/L Testing performed on [employer] IM analyzer using direct chemiluminescent technology. Troponin I.cardiac DL <= 0.01 ng/mL [Mass/Vol] 69 ng/L High 0 - 54 ng/L [facility] Comment on above: Interpretive Data: High Sensitive Troponin I Reference Ranges: Female: 0-34 ng/L Male: 0-54 ng/L Testing performed on [employer] IM analyzer using direct chemiluminescent technology. Albumin BCP dye [Mass/Vol] 3.7 G/dL Normal 3.2 - 4.8 G/dL ADM Albumin/Globulin [Mass ratio] 1.0 {ratio} Normal 0.9 - 1.6 ratio ADM SS ALP [Catalytic activity/Vol] 80 U/L Normal 38 - 126 U/L [facility] ALT No additional P-5'-P [Catalytic activity/Vol] 13 U/L Normal 12 - 55 U/L AH ADM SS AST [Catalytic activity/Vol] 22 U/L Normal 8 - 34 U/L AH ADM SS Bilirubin [Mass/Vol] 1.10 mg/dL Normal 0.20 - 1.20 mg/dL ADM SS Comment on above: Interpretive Data: U se of this assay is not recommended for patients undergoing treatment with eltrombopag due to the potential for falsely elevated results. Globulin 3.7 G/dL Normal 2.5 - 4.2 G/dL AH ADM SS Monocyte distribution width Auto (Bld) [Entitic vol] 19.60 1 Normal 0.00 - 20.00 AH Workflow SS Comment on above: Result Comment: [...] ng/L Male: 0-54 ng/L Testing performed on [employer] analyzer using direct chemiluminescent technology. PBNPon 12-31-2024 Natriuretic peptide B (Bld) [Mass/Vol] 1793 pg/mL Normal 0-1800 [facility] MAIN Comment on above: Performed By: #### T ROPHS, ADPHYLLIS, CMP, PBNP, GFR, PRO, CBC, ANEU, MDW #### [place] [address] PROon 12-31-2024 INR Coag (PPP) [Relative time] 1.8 {INR} Normal [facility] MAIN Comment on above: Order Comment: order ed secondary to warfarin order Result Comment: The [place] [employer] (CHEST, 1992, 102:312S-25S) recommended therapeutic range for oral anticoagulant therapy is: LOW RISK: Prophylaxis of venous thrombosis INR: 2.0-3.0 Treatment of pulmonary embolism 2.0-3.0 Prevention of systemic embolism 2.0-3.0 HIGH RISK: Mechanical prosthetic valves 2.5-3.5 Performed By: #### T EVELYN, SYDNEYIFF, CMP, PBNP, GFR, PRO, CBC, LANE FERNANDEZ #### [address] [address] PT Coag (PPP) [Time] 21.1 s High 9.0-14.4 [facility] MAIN Comment on above: Order Comment: order ed secondary to warfarin order Result Comment: Effe ctive 02/22/08, Protime results may be affected by some antibiotics (i.e. Ciprofloxacin, Azithromycin, Bactrim) which may potentiate the action of oral anticoagulants, with further increases in Protime/INR. Performed By: #### T EVELYN, ADIFF, CMP, PBNP, GFR, PRO, CBC, LANE FERNANDEZ #### [address] [address] INR Coag (PPP) [Relative time] 1.6 {INR} Normal [facility] MAIN Comment on above: Result Comment: [employer] [place] [employer] (CHEST, 1992, 102:312S-25S) recommended therapeutic range for oral anticoagulant therapy is: LOW RISK: Prophylaxis of venous thrombosis INR: 2.0-3.0 Treatment of pulmonary embolism 2.0-3.0 Prevention of systemic embolism 2.0-3.0 HIGH RISK: Mechanical prosthetic valves 2.5-3.5 Performed By: #### T EVELYN, ADIFF, CMP, PBNP, GFR, PRO, CBC, LANE FERNANDEZ #### [address] [address] PT Coag (PPP) [Time] 18.7 s High 9.0-14.4 [facility] MAIN Comment on above: Result Comment: Effe ctive 02/22/08, Protime results may be affected by some antibiotics (i.e. Ciprofloxacin, Azithromycin, Bactrim) which may potentiate the action of oral anticoagulants, with further increases in Protime/INR. Performed By: #### T EVELYN, ADIFF, CMP, PBNP, GFR, PRO, CBC, ANEULANE #### [address] [address] [facility] 12-31-2024 High Sensitivity Troponin I 65 ng/L High 0-54 [facility] MAIN Comment on above: Result Comment: High Sensitive Troponin I Reference Ranges: Female: 0-34 ng/L Male: 0-54 ng/L Testing performed on [employer] IM analyzer using direct chemiluminescent technology. Performed By: #### T ROBHS, ADIFF, CMP, PBNP, GFR, PRO, CBC, ANEU, LANE #### [place] [address] High Sensitivity Troponin I 69 ng/L High 054 [facility] MAIN Comment on above: Result Comment: High Sensitive Troponin I Reference Ranges: Female: 0-34 ng/L Male: 0-54 ng/L Testing performed on [employer] IM analyzer using direct chemiluminescent technology. Performed By: #### T EVELYN, ADIFF, CMP, PBNP, GFR, PRO, CBC, ANEU, LANE #### [place] [address] High Sensitivity Troponin I 63 ng/L [facility] [address] MAIN Comment on above: Result Comment: High Sensitive Troponin I Reference Ranges: Female: 0-34 ng/L Male: 0-54 ng/L Testing performed on [employer] IM analyzer using direct chemiluminescent technology. Performed By: #### T EVELYN, ADIFF, CMP, PBNP, GFR, PRO, CBC, ANEU, LANE #### [place] [address] XR CHEST 1 VIEW 12-31-2024 XR CHEST 1 VIEW ORIGINAL EXAMINATION: Exam Title:ONE XRAY VIEW OF THE CHEST Completed Time: 12/31/2024 11:31 am Procedure Description:CHEST ONE VIEW AP/PA COMPARISON: July 25, 2021 chest x-ray HISTORY: ORDERING SYSTEM PROVIDED HISTORY: Reason for Exam: palpitations FINDINGS: Xcsq-tr-qiphbucy cardiomegaly. CABG. Pacing leads appear intact. Left-sided [...] 12/31/2024 11:35:34 AM Ordering Provider: MEGHA HAHN [facility] MAIN [place] 12-26-2024 CNPN Telephone (PHARMN) BESSY VALVERDE ([id number]) 1945 M Date Time Provider Department 12/26/24 PHARMACIST PHARMN During your visit today, we recorded the following information about you: Kelechi (Instrument Repair Technician)Karan 12/26/2024 9:10 AM Signed Patient called to let us know he will not be able to test tomorrow as he was advised by MD to hold warfarin yesterday and today for a procedure tomorrow. 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 Patient is asking when next INR should be done and can be reached at [phone] and stated we may leave a detailed message if no answer. Karan Lorenz (Instrument Repair Technician) Valerio Acharya [facility] 12/26/2024 3:35 PM Signed Spoke to patient - advised to have INR checked within two weeks of tomorrow's procedure. Jonathan Hawkins [facility] 01/10/2025 10:01 AM Signed Patient was due [...] an injectable anticoagulant - No Jonathan Hawkins [facility] Kael MelanieCEDRIC 01/10/2025 4:13 PM Signed Pt. called stated pt. INR was 2.3 today. Pt. is having a procedure on 01/12/25. Pt. worried his procedure will not happen if his INR not under 2.0. Pt. requestig a return call at [phone] Allergies As of Date: 12/26/2024 (No Known [...] directed for weight gain, fluid retention. - qxwqkrbzs-mimful-fuegkd ne-scop () 16.2-0.1037 -0.0194 mg per tablet [...] [I50.22] 01/06/2018 Other insomnia [G47.09] 12/02/2018 07/29/2023 halfway (current) use of anticoag (more content not included)... Normal [facility] Anion gap in Serum or Plasma Ordered By: Mackenzie Iverson on 12-16-2024 Anion gap [Moles/Vol] 11 mmol/L 5-15 [facility] BUN/creatinine ratioOrdered By: Mackenzie Iverson on 12-16-2024 Urea nitrogen/Creatinine [Mass ratio] 29.9 mg/mg High 10-20 [facility] Carbon dioxide, total [Moles /volume] in Central venous bloodOrdered By: Maceknzie Iverson on 12-16-2024 CO2 [Moles/Vol] 23.5 mmol/L 21.0-32.0 [facility] Chloride assayOrdered By: Derrek Iverson on 12-16-2024 Chloride [Moles/Vol] 103 mmol/L 98-108 [facility] Glomerular filtration rate ( GFR) estimation/1.73 sq m using serum, plasma, or whole bOrdered By: Mackenzie Iverson on 12-16-2024 GFR/1.73 sq M.predicted among non-blacks MDRD (S/P/Bld) [Vol rate/Area] 47 mL/min/{1.73_m2} Low >60 [facility] Comment on above: mL/min/1.73m2 CKD-EP I Creatinine Equation (2020) PTHINon 12-16-2024 PTH 169 pg/mL High 11-61 [facility] Comment on above: Performed By: #### L 500.3600, L506.1001, L509.1000 #### [facility] [address] [place], [address] Potassium measurement (mass/ volume)Ordered By: Mackenzie Iverson on 12-16-2024 Potassium (Unsp spec) [Mass/Vol] 4.7 mmol/L 3.3-5.1 [facility] Renal Profileon 12-16-2024 Albumin [Mass/Vol] 3.8 g/dL Normal 3.4-4.8 [facility] Comment on above: Performed By: #### L 500.3600, L506.1001, L509.1000 #### [facility] [address] [place], [address] BUN/CRE 29.9 RATIO High 10-20 [facility] Comment on above: Performed By: #### L 500.3600, L506.1001, L509.1000 #### [facility] [address] [place], [address] Calcium [Mass/Vol] 9.2 mg/dL Normal 7.6-11.0 [facility] Comment on above: Performed By: #### L 500.3600, L506.1001, L509.1000 #### [facility] [address] [place], [address] Chloride [Moles/Vol] 103 mmol/L Normal 98-108 [facility] Comment on above: Performed By: #### L 500.3600, L506.1001, L509.1000 #### [facility] [address] [place], [address] CO2 [Moles/Vol] 23.5 mmol/L Normal 21.0-32.0 [facility] Comment on above: Performed By: #### L 500.3600, L506.1001, L509.1000 #### [facility] [address] [place], [address] Creatinine [Mass/Vol] 1.49 mg/dL High 0.70-1.20 [facility] Comment on above: Performed By: #### L 500.3600, L506.1001, L509.1000 #### [facility] [address] [place], [address] GAP 11 Normal 5-15 [facility] Comment on above: Performed By: #### L 500.3600, L506.1001, L509.1000 #### [facility] [address] [place], [address] GFR/1.73 sq M.predicted among non-blacks MDRD (S/P/Bld) [Vol rate/Area] 47 mL/min/{1.73_m2} Low >60 [facility] Comment on above: Result Comment: mL/m in/1.73m2 CKD-EPI Creatinine Equation (2020) Performed By: #### L 500.3600, L506.1001, L509.1000 #### [facility] [address] [place], [address] Glucose [Mass/Vol] 227 mg/dL High 70-99 [facility] Comment on above: Performed By: #### L 500.3600, L506.1001, L509.1000 #### [facility] [address] [place], [address] Phosphate [Mass/Vol] 2.9 mg/dL Normal 2.7-4.5 [facility] Comment on above: Performed By: #### L 500.3600, L506.1001, L509.1000 #### [facility] [address] [place], [address] Potassium [Moles/Vol] 4.7 mmol/L Normal 3.3-5.1 [facility] Comment on above: Performed By: #### L 500.3600, L506.1001, L509.1000 #### [facility] [address] [place], [address] Sodium [Moles/Vol] 137 mmol/L Normal 133-145 [facility] Comment on above: Performed By: #### L 500.3600, L506.1001, L509.1000 #### [facility] [address] [place], [address] Urea nitrogen [Mass/Vol] 45 mg/dL High 4-19 [facility] Comment on above: Performed By: #### L 500.3600, L506.1001, L509.1000 #### [facility] [address] [place], [place], [address] Serum creatinine measurement (mass/volume)Ordered By: Mackenzie Iverson on 12-16-2024 Creatinine [Mass/Vol] 1.49 mg/dL High 0.70-1.20 [facility] Serum glucose measurement (m ass/volume)Ordered By: Mackenzie Iverson on 12-16-2024 Glucose [Mass/Vol] 227 mg/dL High 70-99 [facility] Serum or plasma albumin karen urement (mass/volume)Ordered By: Mackenzie Iverson on 12-16-2024 Albumin [Mass/Vol] 3.8 g/dL 3.4-4.8 [facility] Serum or plasma calcium karen urement (mass/volume)Ordered By: Mackenzie Iverson on 12-16-2024 Calcium [Mass/Vol] 9.2 mg/dL 7.6-11.0 [facility] Serum or plasma urea nitroge n measurement (mass/volume)Ordered By: Mackenzie Iverson on 12-16-2024 Urea nitrogen [Mass/Vol] 45 mg/dL High 4-19 [facility] Sodium levelOrdered By: Skye Iverson on 12-16-2024 Sodium [Moles/Vol] 137 mmol/L 133-145 [facility] Vitamin D,25 Hydroxyon 12-16 Vitamin D 25-OH 18.7 ng/mL Low 30-100 [facility] Comment on above: Result Comment: Peggy min D Status Deficiency: <20 ng/mL (50nmol/L) Insufficiency: 20-30 ng/mL (50-75 nmol/L) Sufficiency: 30-100 ng/mL (75-250 nmol/L) Toxicity: >100 ng/mL (>250 nmol/L) Performed By: #### L 500.3600, L506.1001, L509.1000 #### [facility] [address] [place], [address] CNPNon 12-13-2024 CNPN Telephone ([facility]) BESSY VALVERDE ([id number]) 1945 M Date Time Provider Department 12/13/24 JONATHAN HAWKINS During your visit today, we recorded the following information about you: Jonathan Hawkins [facility] 12/13/2024 7:54 AM Signed [facility] Anticoagulation Episode Summary Anticoagulation Care Providers Provider Role Specialty Phone number George Mata MD [facility] Internal Medicine [phone] Bessy Valverde is a 78 year old [...] missed any doses of warfarin. Jonathan Hawkins [facility] Clinical Pharmacist, Pharmacy Anticoagulation Clinic Pharmacy Anticoagulation Clinic Pager: [phone]. Allergies As of Date: 12/13/2024 (No Known Allergies) Date Reviewed: 11/01/2024 Reviewed by: Daphney Obando LPN - Fully Assessed Reason for Visit: Anticoagulation Telephone Fu [148] Cmt: Home INR result Prescriptions as of 12/13/2024 - cdevdxhfq-wdnfuf-apprpu ne-scop () 16.2-0.1037 -0.0194 mg per tablet [...] 07/26/2010 07/24/2022 (more content not included)... Normal [facility] [place] 11-29-2024 OCTAVION Telephone (PHAMTE) BESSY VALVERDE ([id number]) 1945 M Date Time Provider Department 11/29/24 JONATHAN HAWKINS During your visit today, we recorded the following information about you: Jonathan Hawkins, [facility] 11/29/2024 8:59 AM Signed [facility] Anticoagulation Episode Summary Anticoagulation Care Providers Provider Role Specialty Phone number George Mata MD Responsible Internal Medicine [phone] Bessy Valverde is a 78 year old [...] missed any doses of warfarin. Jonathan Hawkins [facility] Clinical Pharmacist, Pharmacy Anticoagulation Clinic Pharmacy Anticoagulation Clinic Pager: [phone]. Allergies As of Date: 11/29/2024 (No Known Allergies) Date Reviewed: 11/01/2024 Reviewed by: Daphney Obando LPN - Fully Assessed Reason for Visit: Anticoagulation Telephone Fu [148] Cmt: Home INR result Prescriptions as of 11/29/2024 - wibqoqmcu-hlgyqq-rixkbp ne-scop () 16.2-0.1037 -0.0194 mg per tablet [...] [R19.5] 08/23/2012 (more content not included)... Normal [facility] BESS[facility] VALVER[facility] ([id number]) 1945 M Date Time Provider Department 11/17/24 [...] follows: Requested Prescriptions Pending Prescriptions Disp Refills fpndbajhg-cniwhm-lipqld ne-scop () 16.2-0.1037 -0.0194 mg per tablet 240 tablet 0 Sig: Take 1 tablet by mouth every 6 hours as needed. Please review and advise. Reyna Daphney Farooq LPN 11/17/2024 3:47 PM Signed Appt 02/01/2025. 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 [Z79.*01/26/2019 CKD (chronic kidney disease) stage 3, GFR 30-59*01/29/2019 11/30/2019 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 Normal [facility] CNPNon 11-15-2024 CNPN Telephone (PHARAV) BESSY VALVERDE ([id number]) 1945 M Date Time Provider Department 11/15/24 ELLIOTT GLEASON During your visit today, we recorded the following information about you: Elliott Gleason RPh 11/15/2024 8:59 AM Signed [facility]tico[facility] Anticoagulation Episode Summary Anticoagulation Care Providers Provider Role Specialty Phone number George Mata MD [facility] Internal Medicine [phone] Bessy Valverde is a 78 year old [...] ALLERGIES No Known Allergies Indication for Warfarin: 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 Elliott Gleason [facility] Clinical Pharmacist, Pharmacy Anticoagulation Clinic Pharmacy Anticoagulation Clinic Pager: [phone]. 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 - hzlbkuuwc-sfbkow-gjaqfa ne-scop () 16.2-0.1037 -0.0194 mg per tablet [...] Asthma, mod (more content not included)... Normal [facility] CNOVon 11-01-2024 CNOV Office Visit (INTMWS ) BESSY VALVERDE ([id number]) 1945 M Date Time Provider Department 11/01/24 9:00 AM GEORGE MATA INTMWS During your visit today, we recorded the following information about you: Temperature Pulse Respiration Blood pressure 98 degrees 68/minute 20/minute 106/60 Weight 79.2 kg George Mata MD 11/01/2024 9:34 AM Signed This note was created using nWayriter. 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 bvelsfrcy-snyuoa-cguyuw ne-scop () 16.2-0.1037 -0.0194 mg per tablet [...] No edema. (more content not included)... Normal [facility] CNPRachelle 11-01-2024 CNPN Telephone ([employer]) BESSY VALVERDE ([id number]) 1945 M Date Time Provider Department 11/01/24 LIAN COULTER During your visit today, we recorded the following information about you: Lian Coulter, [facility] 11/01/2024 8:37 AM Signed [facility]tico[facility] Clinic Anticoagulation Episode Summary Anticoagulation Care Providers Provider Role Specialty Phone number George Mata MD Responsible Internal Medicine [phone] Bessy Valverde is a 78 year old [...] ALLERGIES No Known Allergies Indication for Warfarin: 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 Lian Coulter [facility] Clinical Pharmacist, Pharmacy Anticoagulation Clinic Pharmacy Anticoagulation Clinic Pager: [phone]. Allergies As of Date: 11/01/2024 (No Known Allergies) Date Reviewed: 08/09/2024 Reviewed by: Daphney Obando LPN - Fully Assessed Reason for Visit: Anticoagulation Telephone Fu [148] Cmt: Home INR Primary Visit Diagnosis:halfway (current) use of anticoagulants [Z79.01] Other Visit [...] empty stomach, 1/2 hr before meal. - tdtmjxflr-sxstsa-nylkxe ne-scop () 16.2-0.1037 -0.0194 mg per tablet [...] well-controlled [J*12/09/2008 (more content not included)... Normal [facility] BESS[facility] VALVERDE ([id number]) 1945 M Date Time Provider Department 10/18/24 JONATHAN HAWKINS During your visit today, we recorded the following information about you: Jonathan Hawkins [facility] 10/18/2024 8:01 AM Signed [facility]tico[facility] Anticoagulation Episode Summary Anticoagulation Care Providers Provider Role Specialty Phone number George Mata MD [facility] Internal Medicine [phone] Bessy Hernandez Valverde is a 78 year [...] missed any doses of warfarin. Jonathan Hawkins [facility] Clinical Pharmacist, Pharmacy Anticoagulation Clinic Pharmacy Anticoagulation Clinic Pager: [phone]. Allergies As of Date: 10/18/2024 (No Known [...] empty stomach, 1/2 hr before meal. - xvjrmkrbm-sfauoy-mikfxq ne-scop () 16.2-0.1037 -0.0194 mg per tablet [...] bleeding [R1 (more content not included)... Normal [facility] Ankle Brachial Indexon 10-17 Ankle Brachial Index [facility] [address] [place] [address] Ankle Brachial Index 10/17/24 1252 MR#: [id number] Acct: [id number] Name: BESSY VALVERDE Rep #: [id number] : 1945 78 From: Faizan Pierce MD Attending Dr: Dr. Faizan Pierce MD Status: DE P CLI Ordering Dr: Faizan Pierce MD Date: 10/17/24 Location: [facility] Sex: M C Admitted: Reason For Study [...] MD; Dr. George Mata MD Date Dictated: 10/17/24 1252 Date Transcribed: 12/08/241999 Construction Project Engineer: Signed [facility] 10-04-2024 [facility] Telephone (ARIK) BESSY VALVERDE ([id number]) 1945 M Date Time Provider Department 10/04/24 JONATHAN HAWKINS During your visit today, we recorded the following information about you: Jonathan Hawkins [facility] 10/04/2024 8:24 AM Signed [facility] Antico[facility] Clinic Anticoagulation Episode Summary Anticoagulation Care Providers Provider Role Specialty Phone number George Mata MD Responsible Internal Medicine [phone] Bessy Valverde is a 78 year old [...] missed any doses of warfarin. Jonathan Hawkins [facility] Clinical Pharmacist, Pharmacy Anticoagulation Clinic Pharmacy Anticoagulation Clinic Pager: [phone]. Allergies As of Date: 10/04/2024 (No Known [...] empty stomach, 1/2 hr before meal. - sjsxlkmdf-rginwc-lakjhg ne-scop () 16.2-0.1037 -0.0194 mg per tablet [...] test [R19.5] (more content not included)... Normal [facility]-2024 [facility] BESSY VALVERDE ([id number]) 1945 M Date Time Provider Department 09/20/24 JONATHAN HAWKINS During your visit today, we recorded the following information about you: Jonathan Hawkins RP 09/20/2024 9:14 AM Signed [facility] Antico[facility] Anticoagulation Episode Summary Anticoagulation Care Providers Provider Role Specialty Phone number George Mata MD [facility] Internal Medicine [phone] Bessy Hernandez Nicolle is a 78 year [...] missed any doses of warfarin. Jonathan Hawkins [facility] Clinical Pharmacist, Pharmacy Anticoagulation Clinic Pharmacy Anticoagulation Clinic Pager: [phone]. Allergies As of Date: 09/20/2024 (No Known [...] empty stomach, 1/2 hr before meal. - bpngymbqy-vpzjkd-lfpxeu ne-scop () 16.2-0.1037 -0.0194 mg per tablet [...] test [R19.5] (more content not included)... [facility]INTMWS[facility] BESSY VALVERDE ([id number]) 1945 M Date Time Provider Department 09/13/24 GEORGE MATA INTWS During your visit today, [...] would like to remain in day. Please place consult and will fax all information to [facility] here in day. Patient was given number to call and schedule. Fax number: [phone] Marva Carroll LPN 09/13/2024 8:55 AM Signed [...] - CONSULT TO NEPHROLOGY. Dr. Mackenzie Iverson, [facility] Nephrology. MD Kiarra Bright [place], [place] 09/16/2024 [...] N18.30] Order(s):CONSULT TO NEPHROLOGY [9018] Order #: [id number]: 1 FUTURE Prescriptions as of 09/16/2024 - [...] empty stomach, 1/2 hr before meal. 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 Normal [facility] CBC panel Auto (Bld)on 09-06 Erythrocyte distribution width (RBC) [Ratio] 15.5 % High 11.5-15.0 [facility] Comment on above: Order Comment: Speci men Type: BLOOD SPECIMENOrdering Facility: [facility] Address: [address] [place] [address] Performed By: #### 5 8410-2 ####[facility] [id number] [place] [address] [place] Hematocrit (Bld) [Volume fraction] 33.9 % Low 39.0-51.0 [facility] Comment on above: Order Comment: Moyi men Type: BLOOD SPECIMENOrdering Facility: [facility] Address: [address] [place] [address] Performed By: #### 5 8410-2 ####[facility] [id number] [place] [address] [place] Hemoglobin (Bld) [Mass/Vol] 11.3 g/dL Low 13.0-17.0 [facility] Comment on above: Order Comment: Speci men Type: BLOOD SPECIMENOrdering Facility: [facility] Address: [address] [place] [address] Performed By: #### 5 8410-2 ####[facility] LABIA [id number] [place] [address] [place] MCH (RBC) [Entitic mass] 30.5 pg Normal 26.0-34.0 [facility] Comment on above: Order Comment: Speci men Type: BLOOD SPECIMENOrdering Facility: [facility] Address: [address] [place] [address] Performed By: #### 5 8410-2 ####[facility]IA [id number] [place] [address] [place] MCHC (RBC) [Mass/Vol] 33.3 g/dL Normal 30.5-36.0 [facility] Comment on above: Order Comment: Speci men Type: BLOOD SPECIMENOrdering Facility: [facility] Address: [address] [place] [address] Performed By: #### 5 8410-2 ####[facility] [id number] [place] [address] [place] MCV (RBC) [Entitic vol] 91.6 fL Normal 80.0-100.0 C [facility] Comment on above: Order Comment: Speci men Type: BLOOD SPECIMENOrdering Facility: [facility] Address: [address] [place] [address] Performed By: #### 5 8410-2 ####[facility] [id number] [place] [address] [place] Nucleated RBC (Bld) [#/Vol] 10*3/uL Normal <0.01 [facility] Comment on above: Order Comment: Speci men Type: BLOOD SPECIMENOrdering Facility: [facility] Address: [address] [place] [address] Performed By: #### 5 8410-2 ####[facility] [id number] [place] [address] [place] Platelet mean volume (Bld) [Entitic vol] 11.0 fL Normal 9.0-12.7 [facility] Comment on above: Order Comment: Speci men Type: BLOOD SPECIMENOrdering Facility: [facility] Address: [address] [place] [address] Performed By: #### 5 8410-2 ####[facility] LABCLIA [id number] [place] [address] [place] Platelets (Bld) [#/Vol] 141 10*3/uL Low 150-400 [facility] Comment on above: Order Comment: Speci men Type: BLOOD SPECIMENOrdering Facility: [facility] Address: [address] [place] [address] Performed By: #### 5 8410-2 ####[facility] [id number] [place] [address] [place] RBC (Bld) [#/Vol] 3.70 10*6/uL Low 4.20-6.00 [facility] Comment on above: Order Comment: Speci men Type: BLOOD SPECIMENOrdering Facility: [facility] Address: [address] [place] [address] Performed By: #### 5 8410-2 ####[facility] [id number] [place] [address] [place] WBC (Bld) [#/Vol] 7.66 10*3/uL Normal 3.70-11.00 [facility] Comment on above: Order Comment: Speci men Type: BLOOD SPECIMENOrdering Facility: [facility] Address: [address] [place] [address] Performed By: #### 5 8410-2 ####[facility] [id number] [place] [address] [place] Guero 09-06-2024 [facility] Telephone ([facility]) BESSY VALVERDE ([id number]) 1945 M Date Time Provider Department 09/06/24 JONATHAN HAWKINS During your visit today, we recorded the following information about you: Jonathan Hawkins [facility] 09/06/2024 8:24 AM Signed [facility]tico[facility] Clinic Anticoagulation Episode Summary Anticoagulation Care Providers Provider Role Specialty Phone number George Mata MD [facility] Internal Medicine [phone] Bessy Valverde is a 78 year old [...] missed any doses of warfarin. Jonathan Hawkins [facility] Clinical Pharmacist, Pharmacy Anticoagulation Clinic Pharmacy Anticoagulation Clinic Pager: [phone]. Allergies As of Date: 09/06/2024 (No Known [...] empty stomach, 1/2 hr before meal. - yvdfktpna-zaxbtm-tnvnhe ne-scop () 16.2-0.1037 -0.0194 mg per tablet [...] esophagus [K22.70] (more content not included)... Normal [facility] Comprehensive metabolic 2000 panelon 09-06-2024 Albumin [Mass/Vol] 4.0 g/dL Normal 3.9-4.9 [facility] Comment on above: Order Comment: Speci men Type: BLOOD SPECIMENOrdering Facility: [facility] Address: [address] [place] [address] Performed By: #### 2 4323-8, 54541-3 ####[facility] LABCLIA [id number] [place] [id number] [place] ALP [Catalytic activity/Vol] 79 U/L Normal 38-113 [facility] Comment on above: Order Comment: Speci men Type: BLOOD SPECIMENOrdering Facility: [facility] Address: [address] [place] [address] Performed By: #### 2 4323-8, 47106-8 ####[facility] LABCLIA [id number] [place] [address] [place] ALT [Catalytic activity/Vol] 15 U/L Normal 10-54 [facility] Comment on above: Order Comment: Speci men Type: BLOOD SPECIMENOrdering Facility: [facility] Address: [address] [place] [address] Performed By: #### 2 4323-8, 40012-6 ####[facility] LABCLIA [id number] [place] [address] [place] Anion gap [Moles/Vol] 12 mmol/L Normal 8-15 [facility] Comment on above: Order Comment: Speci men Type: BLOOD SPECIMENOrdering Facility: [facility] Address: [address] [place] [address] Performed By: #### 2 4323-8, 17207-0 ####[facility] LABCLIA [id number] [place] [address] [place] AST [Catalytic activity/Vol] 21 U/L Normal 14-40 [facility] Comment on above: Order Comment: Speci men Type: BLOOD SPECIMENOrdering Facility: [facility] Address: [address] [place] [address] Performed By: #### 2 4323-8, 31985-1 ####[facility] LABCLIA [id number] [place] [address] [place] Bilirubin [Mass/Vol] 1.3 mg/dL Normal 0.2-1.3 [facility] Comment on above: Order Comment: Speci men Type: BLOOD SPECIMENOrdering Facility: [facility] Address: [address] [place] [address] Performed By: #### 2 4323-8, 59632-5 ####[facility] LABCLIA [id number] [address] [address] [place] Calcium [Mass/Vol] 9.5 mg/dL Normal 8.5-10.2 [facility] Comment on above: Order Comment: Speci men Type: BLOOD SPECIMENOrdering Facility: [facility] Address: [address] [place] [address] Performed By: #### 2 4323-8, 30145-2 ####[facility] LABCLIA [id number] [place] [address] [place] Chloride [Moles/Vol] 103 mmol/L Normal 98-107 [facility] Comment on above: Order Comment: Speci men Type: BLOOD SPECIMENOrdering Facility: [facility] Address: [address] [place] [address] Performed By: #### 2 4323-8, ####[facility] LABCLIA [id number] [place] [address] [place] CO2 [Moles/Vol] 24 mmol/L Normal 22-30 [facility] Comment on above: Order Comment: Speci men Type: BLOOD SPECIMENOrdering Facility: [facility] Address: [address] [place] [address] Performed By: #### 2 4323-8, 22625-8 ####[facility] LABCLIA [id number] [place] [address] [place] Creatinine [Mass/Vol] 1.66 mg/dL High 0.73-1.22 [facility] Comment on above: Order Comment: Speci men Type: BLOOD SPECIMENOrdering Facility: [facility] Address: [address] [place], [place] [address] Performed By: #### 2 4323-8, 68695-7 ####[facility]IA [id number] [place] [address] [place] Creatinine and Glomerular filtration rate.predicted panel (S/P/Bld) 42 mL/min/1.73m??? Low >=60 [facility] Comment on above: Order Comment: Marge grider Type: BLOOD SPECIMENOrdering Facility: [facility] Address: [address] [place] [address] Result Comment: Lory mated Glomerular Filtration Rate [...] actual GFR. Performed By: #### 2 4323-8, 21310-6 ####[facility] [id number] [place] [address] [place] Glucose [Mass/Vol] 128 mg/dL High 74-99 [facility] Comment on above: Order Comment: Marge grider Type: BLOOD SPECIMENOrdering Facility: [facility] Address: [address] [place] [address] Result Comment: The [place] Diabetes Association (ADA) provides guidance for cutoff [...] Standards of Medical Care in Diabetes 2016, [place] Diabetes Association. Diabetes Care. 2016.39(Suppl 1). Performed By: #### 2 4323-8, ####[facility] LABCLIA [id number] [address] [address] [place] Potassium [Moles/Vol] 4.8 mmol/L Normal 3.7-5.1 [facility] Comment on above: Order Comment: Speci men Type: BLOOD SPECIMENOrdering Facility: [facility] Address: [address] [place] [address] Performed By: #### 2 4323-8, ####[facility]IA [id number] [place] [address] [place] Protein [Mass/Vol] 7.1 g/dL Normal 6.3-8.0 [facility] Comment on above: Order Comment: Speci men Type: BLOOD SPECIMENOrdering Facility: [facility] Address: [address] [place] [address] Performed By: #### 2 4328, ####[facility] LABIA [id number] [place] [address] [place] Sodium [Moles/Vol] 139 mmol/L Normal 136-144 [facility] Comment on above: Order Comment: Speci men Type: BLOOD SPECIMENOrdering Facility: [facility] Address: [address] [place] [address] Performed By: #### 2 4323-8, ####[facility]IA [id number] [place] [address] [place] Urea nitrogen [Mass/Vol] 38 mg/dL High 9-24 [facility] Comment on above: Order Comment: Speci men Type: BLOOD SPECIMENOrdering Facility: [facility] Address: [address] [place] [address] Performed By: #### 2 4323-8, 07417-3 ####[facility] [id number] [address] [address] [place] HbA1c (Bld)on 09-06-2024 Average glucose Estimated from glycated hemoglobin (Bld) [Mass/Vol] 151 mg/dL Normal [facility] Comment on above: Order Comment: Marge grider Type: BLOOD SPECIMENOrdering Facility: [facility] Address: [address] [place] [address] Result Comment: eAG: (Estimated average glucose) is a calculated value from HgbA1c and is enrollment eligibility representative of the average blood glucose level in the last 2-3 month period. Performed By: #### 5 5454-3 ####[facility] LABCLIA [id number] [place] [address] [place] HbA1c (Bld) [Mass fraction] 6.9 % High 4.3-5.6 [facility] Comment on above: Order Comment: Marge grider Type: BLOOD SPECIMENOrdering Facility: [facility] Address: [address] [place] [address] Result Comment: [place] Diabetes Association guidelines indicate that patients with HgbA1c in the range 5.7-6.4% are at increased risk for development of diabetes, and intervention by lifestyle modification may be beneficial. HgbA1c greater or equal to 6.5% is considered diagnostic of diabetes. Performed By: #### 5 5454-3 ####[facility] LABCLIA [id number] [place] [address] [place] Lipid 1996 panelon Cholesterol [Mass/Vol] 125 mg/dL Normal <200 [facility] Comment on above: Order Comment: Marge grider Type: BLOOD SPECIMENOrdering Facility: [facility] Address: [address] [place] [address] Result Comment: <200 mg/dL, Desirable 200-239 mg/dL, Borderline high >239 mg/dL, High Performed By: #### 2 4323-8, 52372-0 ####[facility] LABCLIA [id number] [place] [address] [place] Cholesterol in HDL [Mass/Vol] 34 mg/dL Low >39 [facility] Comment on above: Order Comment: Moyrupali grider Type: BLOOD SPECIMENOrdering Facility: [facility] Address: [address] [place] [address] Result Comment: 40-5 9 mg/dL, Acceptable >59 mg/dL, High: Negative risk factor for coronary heart disease <40 mg/dL, Low: Positive risk factor for coronary heart disease Performed By: #### 2 4323-8, 85114-5 ####[facility] LABCLIA [id number] [address] STATES OF [facility] Cholesterol in LDL [Mass/Vol] 67 mg/dL Normal <100 [facility] Comment on above: Order Comment: Moyrupali grider Type: BLOOD SPECIMENOrdering Facility: [facility] Address: [address] [place] [address] Result Comment: <100 mg/dL, Optimal 100-129 mg/dL, Near optimal/above optimal 130-159 mg/dL, Borderline high 160-189 mg/dL, High >189 mg/dL, Very high Secondary prevention optimal LDL Cholesterol levels are recommended to be < 70 mg/dL Performed By: #### 2 4323-8, 42866-5 ####[facility] LABCLIA [id number] [address] STATES OF [facility] Cholesterol in LDL/Cholesterol in HDL [Mass ratio] 1.97 {ratio} Normal <2.54 [facility] Comment on above: Order Comment: Marge grider Type: BLOOD SPECIMENOrdering Facility: [facility] Address: [address] [place] [address] Result Comment: Refe rence: 1. National Cholesterol Education Program ATP III Guideline At-A-Glance Quick Desk Reference: National Heart, Lung, and Blood [place]. National Institutes of Health. 2001: NIH Publication No. 01-3305. 2. An International Atherosclerosis Society position paper: global recommendations for the management of dyslipidemia: executive summary, Atherosclerosis. 2014: 232(2):410-413. Performed By: #### 2 4323-8, 70583-4 ####[facility] LABCLIA [id number] [place] [id number] [place] Cholesterol in VLDL [Mass/Vol] 24 mg/dL Normal <30 [facility] Comment on above: Order Comment: Speci men Type: BLOOD SPECIMENOrdering Facility: [facility] Address: [address] [place] [address] Performed By: #### 2 4323-8, 04013-4 ####[facility] LABCLIA [id number] [place] [address] [place] Cholesterol non HDL [Mass/Vol] 91 mg/dL Normal <130 [facility] Comment on above: Order Comment: Speci men Type: BLOOD SPECIMENOrdering Facility: [facility] Address: [address] [place] [address] Result Comment: <130 mg/dL, Optimal 130-159 mg/dL, Near optimal/above optimal 160-189 mg/dL, Borderline high 190-219 mg/dL, High >219 mg/dL, Very high Secondary prevention optimal non HDL Cholesterol levels are recommended to be <100 mg/dL Performed By: #### 2 4323-8, 16779-7 ####[facility] LABCLIA [id number] [place] [address] [place] Cholesterol.total/Ching sterol in HDL [Mass ratio] 3.68 {ratio} Normal <5.10 [facility] Comment on above: Order Comment: Speci men Type: BLOOD SPECIMENOrdering Facility: [facility] Address: [address] [place] [address] Performed By: #### 2 4323-8, 51762-5 ####[facility] LABCLIA [id number] [place] [id number] [place] FASTING TIME 12 hrs Normal [facility] Comment on above: Order Comment: Speci men Type: BLOOD SPECIMENOrdering Facility: [facility] Address: [address] [place] [address] Performed By: #### 2 4323-8, 72926-6 ####[facility] LABCLIA [id number] [place] [id number] [place] Triglyceride [Mass/Vol] 119 mg/dL Normal <150 [facility] Comment on above: Order Comment: Speci men Type: BLOOD SPECIMENOrdering Facility: [facility] Address: [address] [place] [address] Result Comment: <150 mg/dL, Normal 150-199 mg/dL, Borderline high 200-499 mg/dL, High >499 mg/dL, Very high Performed By: #### 2 4323-8, 61303-7 ####[facility] LABCLIA [id number] [address] [place] [facility] B[facility] VALVERDE ([id number]) 1945 M Date Time Provider Department 08/23/24 GEORGE MATA INTWS During your visit today, we recorded the following information about you: Francois Nguyen RN 08/23/2024 11:15 AM Signed Pamela- Foot [...] empty stomach, 1/2 hr before meal. 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 market intelligence*07/17/2021 PVD (peripheral vascular disease) with claudica*07/29/2023 Encounter Status:Closed by Francois [facility]EN [facility] BESSY VALVERDE ([id number]) 1945 M Date Time Provider Department 08/23/24 JONATHAN HAWKINS During your visit today, we recorded the following information about you: Jonathan Hawkins [facility] 08/23/2024 8:08 AM Signed [facility] Anticoagulation Clinic Anticoagulation Episode Summary Anticoagulation Care Providers Provider Role Specialty Phone number George Mata MD Responsible Internal Medicine [phone] Bessy Valverde is a 78 year old [...] Pharmacy Anticoagulation Clinic Pharmacy Anticoagulation Clinic Pager: [phone]. Zenobia (Instrument Repair Technician)Yin 08/23/2024 5:36 PM Signed PATIENT CALL Received call from Abimael with [employer] INR to report home meter result for patient. [facility] has already addressed this result (see below); nothing further needed at this time. Yin Fregoso CPhT (Chief Data Officer) Pharmacy Anticoagulation Clinic Jonathan Hawkins RPh 08/30/2024 [...] an injectable anticoagulant - No Jonathan Hawkins RPh Allergies As of Date: 08/23/2024 (No Known [...] empty stomach, 1/2 hr before meal. - ddhejrjwh-asbrnz-iisdlx ne-scop () 16.2-0.1037 -0.0194 mg per tablet [...] mg ta (more content not included)... Normal [facility] 08-16-2024 [facility] Telephone (YOVANIE) BESSY VALVERDE ([id number]) 1945 M Date Time Provider Department 08/16/24 JONATHAN HAWKINS During your visit today, we recorded the following information about you: Jonathan Hawkins [facility] 08/16/2024 8:50 AM Signed The patient was called to discuss recent INR test results. A voice message was left on patient's Home telephone voice mail. The patient was advised to call the Coumadin Clinic at [phone] and hold warfarin today. On prednisone 40 mg daily PT INR (no units) Date Value 11/19/2021 2.7 biotel 11/05/2021 2.5 10/22/2021 2.8 biotel INR Home CoaguChek (no units) Date Value 08/16/2024 3.5 07/19/2024 3.0 07/05/2024 2.8 Jonathan Hawkins, PharmD,CACP Yessy Walden PSS 08/16/2024 8:56 AM Signed Patient returned the call. Please call the patient at [phone] Jonathan Hawkins [facility] 08/16/2024 9:20 AM Signed [facility] Anticoagulation Clinic Anticoagulation Episode Summary Anticoagulation Care Providers Provider Role Specialty Phone number George Mata MD Responsible Internal Medicine [phone] Bessy Valverde is a 78 year old [...] missed any doses of warfarin. Jonathan Hawkins [facility] Clinical Pharmacist, Pharmacy Anticoagulation Clinic Pharmacy Anticoagulation Clinic Pager: [phone]. Allergies As of Date: 08/16/2024 (No Known [...] empty stomach, 1/2 hr before meal. - gcmbploqh-oimwgn-ivzrqc ne-scop () 16.2-0.1037 -0.0194 mg per tablet [...] daily. - (more content not included)... Normal [facility] 08-15-2024 [facility] Telephone (INTMWS) BESSY VALVERDE ([id number]) 1945 M Date Time Provider Department 08/15/24 GEORGE MATA INTFrancoisWS During your visit today, we recorded the following information about you: Galilea Plunkett MA 08/15/2024 10:33 AM Signed ----- Message from George Mata MD sent at 08/13/2024 8:13 PM EST ----- Pulmonary fibrosis, atelectasis, difficult to rule out pneumonia. Schedule follow up if he is not better. Also follow up with his order management specialist. Galilea Plunkett MA 08/15/2024 10:36 AM [...] empty stomach, 1/2 hr before meal. - ffujiysim-meicbr-kabtsb ne-scop () 16.2-0.1037 -0.0194 mg per tablet [...] Impaired fast (more content not included)... Normal [facility] CNOVon 08-09-2024 CNOV Office Visit (INTMWS ) BESSY VALVERDE ([id number]) 1945 M Date Time Provider Department 08/09/24 10:00 AM GEORGE MATA INTMWS During your visit today, we recorded the following information about you: Temperature Pulse Respiration Blood pressure 97.2 degrees 72/minute 24/minute 112/68 Weight Height 81.8 kg 1.717 m George Mata MD 08/10/2024 5:01 PM Signed This note was created using nWayriter. Subjective Patient presents with: Yearly Exam Bessy [...] to GI side effects. 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) Pvd (Peripheral Vascular Disease) With Claudication (Hcc) PAST SURGICAL HISTORY Procedure Laterality Date AICD, DUAL CHAMBER 10/29/2015 dual lead AICD APPENDECTOMY 1993 [facility] INCL FLUOR GDNCE DX W/CELL WASHG SPX 02/04/2013 BRONCHOSCOPY CARDIAC CATH 12/16/2017 [facility] CARDIAC CATH 12/14/2018 Right AND Left COLONOSCOPY AND POLYPECTOMY 04/03/2017 COLONOSCOPY SCREENING 05/06/2021 [facility] COLONOSCOPY W/BIOPSY SINGLE/MULTIPLE 07/26/2010 Diminutive polyp of sigmoid/diverticulosis COLONOSCOPY W/BIOPSY SINGLE/MULTIPLE 09/10/2012 CORONARY ARTERY BYP W/VEIN AND ARTERY GRAFT 4 VEIN 04/29/2007 CABG, quadruple grafts CORONARY ARTERY BYPASS GRAFT CORONARY STENT EA VESSEL 02/12/2018 [facility] RCA EGD 05/06/2021 [facility] EGD TRANSORAL BIOPSY SINGLE/MULTIPLE 09/10/2012 EGD W/ BIOPSY SNGL/MLTPL 04/03/2017 [facility] HEART VALVE REPLACEMENT IMPLANTABLE CARDIOVERTER DEFIBRILLATOR [...] Mother Breast Cancer Mother Heart Father of [place] age 85. CABG 13 yrs. prior Heart Sister of CHF age 55, rheumatic heart disease Colon Polyps Sister Ischemic Heart Disease Sister Heart Sister Heart Brother valvular heart disease C (more content not included)... Normal [facility] COVID AND INFLUENZA A/B AND RSV PCR, ROUTINEon 08-09-2024 SARS-CoV-2 (COVID-19) RNA MARILIA+probe Ql (Unsp spec) SARS-COV-2 (AGENT OF COVID-19) RNA: Detected INFLUENZA A RNA: Not detected INFLUENZA B RNA: Not detected RESPIRATORY SYNCYTIAL VIRUS (RSV) RNA: Not detected Abnormal [facility] Comment on above: Performed By: #### C VFLRS ####[facility] LABCLIA [id number] [address] [place] COVID & INFLUENZA A/B & RSV PCR, ROUTINEOrdered By: Violetta Newberry on 08-09-2024 FLUAV RNA MARILIA+probe Ql (Unsp spec) Not detected Not Detected [facility] FLUBV RNA MARILIA+probe Ql (Unsp spec) Not detected Not Detected [facility] Interpretation and review of laboratory results Abnormal [facility] RSV A RNA MARILIA+probe Ql (Unsp spec) Not detected Not Detected [facility] SARS-CoV-2 (COVID-19) RNA MARILIA+probe Ql (Unsp spec) Detected Abnormal See comment [facility] Reference Range (the expected result in uninfected individuals): Not detected [facility] XR CHEST 2V FRONTAL/LATon XR CHEST 2V FRONTAL/LAT * * *Final Repor t* * * DATE OF EXAM: Aug 09 [...] scans may be helpful for further evaluation Construction Project Engineer: PSC[employer] Transcribe Date/Time: Aug 11 2024 8:51A Dictated by : ALEXI MIR MD This examination was interpreted and the report reviewed and electronically signed by: ALEXI MIR MD on Aug 11 2024 8:55AM EST [id number] Normal [facility] CNPNon 07-19-2024 CNPN Telephone ([facility]) BESSY VALVERDE ([id number]) 1945 M Date Time Provider Department 07/19/24 JONATHAN HAWKINS During your visit today, we recorded the following information about you: Jonathan Hawkins [facility] 07/19/2024 10:12 AM Signed [facility] Ambulatory Pharmacy Anticoagulation Clinic Anticoagulation Episode Summary Anticoagulation Care Providers Provider Role Specialty Phone number George Mata MD [facility] Internal Medicine [phone] Bessy Valverde is a 78 year old [...] missed any doses of warfarin. Jonathan Hawkins [facility] Clinical Pharmacist, Pharmacy Anticoagulation Clinic Pharmacy Anticoagulation Clinic Pager: [phone]. Allergies As of Date: 07/19/2024 (No Known [...] empty stomach, 1/2 hr before meal. - muxgacyhw-hnwpyi-qoyqgu ne-scop () 16.2-0.1037 -0.0194 mg per tablet [...] bleeding [R19.5 (more content not included)... Normal [facility] [place] 07-05-2024 OCTAVION Telephone ([employer]) BESSY VALVERDE ([id number]) 1945 M Date Time Provider Department 07/05/24 LIAN COULTER During your visit today, we recorded the following information about you: Lian Coulter, [facility] 07/05/2024 8:[address] [facility] Pharmacy Anticoagulation Clinic Anticoagulation Episode Summary Anticoagulation Care Providers Provider Role Specialty Phone number MataGeorge gerber MD Responsible Internal Medicine [phone] Bessy Valverde is a 78 year old [...] ALLERGIES No Known Allergies Indication for Warfarin: halfway (current) use of anticoagulants Permanent atrial fibrillation [...] missed any doses of warfarin. Lian Coulter [facility] Clinical Pharmacist, Pharmacy Anticoagulation Clinic Pharmacy Anticoagulation Clinic Pager: [phone]. Jonathan Hawkins RPh 07/19/2024 8:25 AM Signed Patient was due to test INR today. Will continue to monitor for results. Follow up in one week if no results received. Jonathan Hawkins RPh Allergies As of Date: 07/05/2024 (No Known Allergies) Date Reviewed: 03/09/2024 Reviewed by: Daphney Obando LPN - Fully Assessed Reason for Visit: Anticoagulation Telephone Fu [148] Cmt: Home INR Primary Visit Diagnosis:buttermaker continuous churn (current) use of anticoagulants [Z79.01] Other Visit [...] empty stomach, 1/2 hr before meal. - kkfzekofx-yppgxo-jnxnew ne-scop () 16.2-0.1037 -0.0194 mg per tablet [...] PURE HYPERCHOLESTER (more content not included)... Normal [facility] 06-21-2024 CNPN Telephone ([facility]) BESSY VALVERDE ([id number]) 1945 M Date Time Provider Department 06/21/24 JONATHAN HAWKINS During your visit today, we recorded the following information about you: Jonathan Hawkins [facility] 06/21/2024 8:33 AM Signed [facility] Ambulatory Pharmacy Anticoagulation Clinic Anticoagulation Episode Summary Anticoagulation Care Providers Provider Role Specialty Phone number George Mata MD [facility] Internal Medicine [phone] Bessy Hernandez Nicolle is a 78 year [...] missed any doses of warfarin. Jonathan Hawkins [facility] Clinical Pharmacist, Pharmacy Anticoagulation Clinic Pharmacy Anticoagulation Clinic Pager: [phone]. Allergies As of Date: 06/21/2024 (No Known [...] empty stomach, 1/2 hr before meal. - cyhzljoxq-lteoxw-yljabi ne-scop () 16.2-0.1037 -0.0194 mg per tablet [...] 05/19/2005 Esophageal (more content not included)... [facility] ([facility]) BESSY VALVERDE ([id number]) 1945 M Date Time Provider Department 06/07/24 JONATHAN HAWKINS During your visit today, we recorded the following information about you: Jonathan Hawkins [facility] 06/07/2024 8:40 AM Signed [facility] Ambulatory Pharmacy Anticoagulation Clinic Anticoagulation Episode Summary Anticoagulation Care Providers Provider Role Specialty Phone number George Mata MD [facility] Internal Medicine [phone] Bessy Valverde is a 78 year old [...] missed any doses of warfarin. Jonathan Hawkins [facility] Clinical Pharmacist, Pharmacy Anticoagulation Clinic Pharmacy Anticoagulation Clinic Pager: [phone]. Allergies As of Date: 06/07/2024 (No Known [...] empty stomach, 1/2 hr before meal. - vjahupipf-hcqssz-sbwinj ne-scop () 16.2-0.1037 -0.0194 mg per tablet [...] bleeding [R19. (more content not included)... Normal [facility] CNPNon 05-24-2024 CNPN Telephone ([facility]) BESSY VALVERDE ([id number]) 1945 M Date Time Provider Department 05/24/24 JONATHAN HAWKINS [facility] During your visit today, we recorded the following [facility] 8[facility]04 AM Signed [facility] Ambulatory Pharmacy Anticoagulation Clinic Anticoagulation Episode Summary Anticoagulation Care Providers Provider Role Specialty Phone number George Mata MD [facility] Internal Medicine [phone] Bessy Valverde is a 78 year old [...] missed any doses of warfarin. Jonathan Hawkins [facility] Clinical Pharmacist, Pharmacy Anticoagulation Clinic Pharmacy Anticoagulation Clinic Pager: [phone]. Allergies As of Date: 05/24/2024 (No Known [...] empty stomach, 1/2 hr before meal. - zqpycthhm-euzoza-agywnb ne-scop () 16.2-0.1037 -0.0194 mg per tablet [...] bleeding [R19. (more content not included)... [facility] Telephone ([facility]) BESSY VALVERDE ([id number]) 1945 M Date Time Provider Department 05/10/24 ELLIOTT GLEASON PHARAV During your visit today, we recorded the following information about you: Elliott Gleason [facility] 05/10/2024 8:08 AM Signed [facility] Ambulatory Pharmacy Anticoagulation Clinic Anticoagulation Episode Summary Anticoagulation Care Providers Provider Role Specialty Phone number George Mata MD [facility] Internal Medicine [phone] Bessy Valverde is a 78 year old [...] ALLERGIES No Known Allergies Indication for Warfarin: buttermaker continuous churn (current) use of anticoagulants Permanent atrial fibrillation [...] Patient denies need for refills. Elliott Gleason [facility] Clinical Pharmacist, Pharmacy Anticoagulation Clinic Pharmacy Anticoagulation Clinic Pager: [phone]. Allergies As of Date: 05/10/2024 (No Known Allergies) Date Reviewed: 03/09/2024 Reviewed by: Daphney Obando LPN - Fully Assessed Reason for Visit: Anticoagulation Telephone Fu [148] Cmt: Home INR result Primary Visit Diagnosis:buttermaker continuous churn (current) use of anticoagulants [Z79.01] Other Visit [...] empty stomach, 1/2 hr before meal. - dbwocdghg-biibbs-excxko ne-scop () 16.2-0.1037 -0.0194 mg per tablet [...] GI bleedin (more content not included)... Normal [facility] [place] 04-26-2024 OCTAVION Telephone ([facility]) BESSY VALVERDE ([id number]) 1945 M Date Time Provider Department 04/26/24 LIAN COULTER During your visit today, we recorded the following information about you: Lian Coulter, [facility] 04/26/2024 9:35 AM Signed [facility] Ambulatory Pharmacy Anticoagulation Clinic Anticoagulation Episode Summary Anticoagulation Care Providers Provider Role Specialty Phone number George Mata MD [facility] Internal Medicine [phone] Bessy Valverde is a 78 year old [...] ALLERGIES No Known Allergies Indication for Warfarin: buttermaker continuous churn (current) use of anticoagulants Permanent atrial fibrillation [...] Patient denies need for refills. Lian Coulter [facility] Clinical Pharmacist, Pharmacy Anticoagulation Clinic Pharmacy Anticoagulation Clinic Pager: [phone]. Allergies As of Date: 04/26/2024 (No Known Allergies) Date Reviewed: 03/09/2024 Reviewed by: Daphney Obando LPN - Fully Assessed Reason for Visit: Anticoagulation Telephone Fu [148] Cmt: Home INR Primary Visit Diagnosis:buttermaker continuous churn (current) use of anticoagulants [Z79.01] Other Visit [...] empty stomach, 1/2 hr before meal. - thbwshtxa-zoqpuy-qabors ne-scop () 16.2-0.1037 -0.0194 mg per tablet [...] 07/26/2010 07/24/2022 (more content not included)... Normal [facility] 04-12-2024 [facility] Telephone ([facility]) BESSY VALVERDE ([id number]) 1945 M Date Time Provider Department 04/12/24 LIAN COULTER During your visit today, we recorded the following information about you: Lian Coulter, [facility] 04/12/2024 8:58 AM Signed [facility] Ambulatory Pharmacy Anticoagulation Clinic Anticoagulation Episode Summary Anticoagulation Care Providers Provider Role Specialty Phone number George Mata MD Responsible Internal Medicine [phone] Bessy Valverde is a 78 year old [...] ALLERGIES No Known Allergies Indication for Warfarin: buttermaker continuous churn (current) use of anticoagulants Permanent atrial fibrillation [...] the plan. Patient denies need for refills. iLan Coulter [facility] Clinical Pharmacist, Pharmacy Anticoagulation Clinic Pharmacy Anticoagulation Clinic Pager: [phone]. Allergies As of Date: 04/12/2024 (No Known Allergies) Date Reviewed: 03/09/2024 Reviewed by: Daphney Obando LPN - Fully Assessed Reason for Visit: Anticoagulation Telephone Fu [148] Cmt: Home INR Primary Visit Diagnosis:halfway (current) use of anticoagulants [Z79.01] Other Visit [...] empty stomach, 1/2 hr before meal. - lvpfzonoe-qmkuba-fpgjcz ne-scop () 16.2-0.1037 -0.0194 mg per tablet [...] GI bleed (more content not included)... Normal [facility] 03-29-2024 CNPN Telephone ([facility]) BESSY VALVERDE ([id number]) 1945 M Date Time Provider Department 03/29/24 JONATHAN HAWKINS During your visit today, we recorded the following information about you: Jonathan Hawkins RPh 03/29/2024 8:01 AM Signed [facility] Ambulatory Pharmacy Anticoagulation Clinic Anticoagulation Episode Summary Anticoagulation Care Providers Provider Role Specialty Phone number George Mata MD [facility] Internal Medicine [phone] Bessy Hernandez Nicolle is a 78 year [...] INR check scheduled on 04/12/2024 Jonathan Hawkins [facility] Clinical Pharmacist, Pharmacy Anticoagulation Clinic Pharmacy Anticoagulation Clinic Pager: [phone]. Allergies As of Date: 03/29/2024 (No Known [...] empty stomach, 1/2 hr before meal. - ximeerzbj-fsqnrx-kwbedj ne-scop () 16.2-0.1037 -0.0194 mg per tablet [...] post imp (more content not included)... Normal [facility] CNPNon 03-15-2024 CNPN Telephone ([facility]) BESSY VALVERDE ([id number]) 1945 M Date Time Provider Department 03/15/24 JORDYN GARCIA PHAMTE During your visit today, we recorded the following information about you: Jordyn Garcia [facility] 03/15/2024 8:01 AM Signed [facility] Ambulatory Pharmacy Anticoagulation Clinic Anticoagulation Episode Summary Anticoagulation Care Providers Provider Role Specialty Phone number George Mata MD [facility] Internal Medicine [phone] Bessy Hernandez Nicolle is a 78 year [...] Pharmacy Anticoagulation Clinic Pharmacy Anticoagulation Clinic Pager: [phone]. Jordyn Garcia RPh 03/28/2024 12:33 PM Signed [...] empty stomach, 1/2 hr before meal. - qxvzwphuw-hpfulv-saxlao ne-scop () 16.2-0.1037 -0.0194 mg per tablet [...] blood te (more content not included)... Normal [facility] CNOVon 03-09-2024 CNOV Office Visit (INTMWS ) BESSY VALVERDE ([id number]) 1945 M Date Time Provider Department 03/09/24 2:40 PM GEORGE MATA INTMWS During your visit today, we recorded the following information about you: Temperature Pulse Respiration Blood pressure 97.1 degrees 64/minute 18/minute 104/62 Weight 80.7 kg George Mata MD 03/09/2024 3:38 PM Signed This note was created using nWayriter. Subjective Bessy Valverde is a 78 year old male. He scraped his left arm 1.5 weeks ago, and sustained a skin tear. There was oozing so he applied a bandage over the weekend that has dried up and adhered. His asthma was worsening as it typically did when ragweed was up. Diabetes was increasing. CAD was stable, and he sees his real estate developer tomorrow. Review of Systems Constitutional: Negative for [...] Valve Stenosis Chronic Systolic Heart Failure (Hcc) Group Home (Current) Use of Anticoagulants Gout of [...] on empty stomach, 1/2 hr before meal. lgpdoxzsq-lhhnnz-abjrif ne-scop () 16.2-0.1037 -0.0194 mg per tablet [...] Mental Status: He is alert. Latest Ref Rn 01/25/2024 Protein, Total 6.3 - 8.0 g/dL 6.8 Albumin 3.9 - 4.9 g/dL 3.9 Calcium 8.5 - 10.2 mg/dL 10.4 (H) Bilirubin, Total 0.2 - 1.3 mg/dL 0.9 (more content not included)... Normal [facility] 03-08-2024 [facility] Telephone ([facility]) BESSY VALVERDE ([id number]) 1945 M Date Time Provider Department 03/08/24 JONATHAN HAWKINS During your visit today, we recorded the following information about you: Jonathan Hawkins [facility] 03/08/2024 7:58 AM Signed [facility] Ambulatory Pharmacy Anticoagulation Clinic Anticoagulation Episode Summary Anticoagulation Care Providers Provider Role Specialty Phone number George Mata MD [facility] Internal Medicine [phone] Bessy Vavlerde is a 78 year old year old [...] verbalizes understanding of the plan. Jonathan Hawkins [facility] Clinical Pharmacist, Pharmacy Anticoagulation Clinic Pharmacy Anticoagulation Clinic Pager: [phone]. Allergies As of Date: 03/08/2024 (No Known [...] empty stomach, 1/2 hr before meal. - djscqubrb-egxwxg-xybhtn ne-scop () 16.2-0.1037 -0.0194 mg per tablet [...] INR testing) *more content not included)... Normal [facility] Prothrombin Time w/INRon INR Coag (PPP) [Relative time] 1.3 {INR} Normal [facility] Comment on above: Performed By: #### L [id number] #### [facility] [address], [address] PT Coag (PPP) [Time] 15.8 s High 11.7-14.9 [facility] Comment on above: Performed By: #### L [id number] #### [facility] [address] [place], [address] LABORATORYOrdered By: Chelita De Leon on 11-28-2021 [...] Interpretation Code AO Chemistry S ECHOon 11-06-2021 [facility] INR FINGERSTICK B/Oon 2021 INR Coag (Bld) [Relative time] 2.5 {INR} [facility] Quality Check No [facility] LABORATORYOrdered By: Zachery Ashraf on 10-31-2021 [...] Invalid Interpretation Code 38 - 126 U/L AH ADM SS ALT No additional P-5'-P [Catalytic activity/Vol] 28 U/L Invalid Interpretation Code 12 - 55 U/L AH ADM SS AST [Catalytic activity/Vol] 32 U/L Invalid Interpretation Code 8 - 34 U/L AH ADM SS Bili Indirect 0.8 mg/dL Invalid Interpretation Code 0.1 - 10.0 mg/dL AH Chemistry S Bilirubin [Mass/Vol] 1.30 mg/dL Invalid Interpretation Code 0.20 - 1.20 mg/dL AH ADM SS Bilirubin.conjugated [Mass/Vol] 0.5 mg/dL Invalid Interpretation Code 0.0 - 0.4 mg/dL AH ADM SS Globulin 3.7 G/dL Invalid Interpretation Code 1.5 - 3.8 G/dL AH ADM SS Protein [Mass/Vol] 7.4 G/dL Invalid Interpretation Code 5.7 - 8.2 G/dL ADM SS LABORATORYOrdered By: Marielena Nova on 07-31-2021 Blood Glucose Testing Reason Routine (07/31/21 10:54 AM) [facility] Work Phone: Glucose [Mass/Vol] 105 mg/dL Invalid Interpretation Code 82 - 115 mg/dL [facility] Work Phone: LABORATORYOrdered By: Dianelys Sanchez on 07-31-2021 Blood Glucose Testing Reason Routine (07/31/21 7:22 AM) [facility] Work Phone: Glucose [Mass/Vol] 129 mg/dL Invalid Interpretation Code 82 - 115 mg/dL [facility] Work Phone: LABORATORYOrdered By: SYSTEM SYSTEM on 07-31-2021 Albumin BCP dye [Mass/Vol] 3.2 G/dL Invalid Interpretation Code 3.2 - 4.8 G/dL ADM SS Albumin/Globulin [Mass ratio] 1.1 {ratio} Invalid Interpretation Code 0.9 - 1.6 ratio ADM SS ALP [Catalytic activity/Vol] 81 U/L [...] 0.0 - 2.5 % AH Remisol SS Bilirubin [Mass/Vol] 1.30 mg/dL Invalid Interpretation Code 0.20 - 1.20 mg/dL AH ADM SS Calcium [Mass/Vol] 9.1 mg/dL Invalid Interpretation Code 8.7 - 10.4 mg/dL AH ADM SS Chloride [Moles/Vol] 107 mmol/L Invalid Interpretation Code 98 - 110 mEq/L AH ADM SS CO2 [Moles/Vol] 28 mmol/L Invalid Interpretation Code 22 - 32 mEq/L AH ADM SS Creatinine [Mass/Vol] 1.48 mg/dL Invalid Interpretation Code 0.60 - 1.40 mg/dL ADM SS Eosinophils (Bld) [#/Vol] 0.10 103/mcL Invalid Interpretation Code 0.00 - 0.65 10^3/mcL AH Remisol SS Eosinophils/100 WBC (Bld) 1.0 % Invalid Interpretation Code 0.0 - 6.0 % AH Remisol SS Erythrocyte distribution width (RBC) [Ratio] 16.3 % Invalid Interpretation Code 11.5 - 15.5 % AH Remisol SS GFR/1.73 sq M.predicted among blacks MDRD (S/P/Bld) [Vol rate/Area] 56 ml/min/1.73sqm Invalid Interpretation Code AH Chemistry S GFR/1.73 sq M.predicted among non-blacks MDRD (S/P/Bld) [Vol rate/Area] 46 ml/min/1.73sqm Invalid Interpretation Code Chemistry S Globulin 2.9 G/dL Invalid Interpretation Code 1.5 - 3.8 G/dL ADM SS Glucose [Mass/Vol] 126 mg/dL Invalid [...] Invalid Interpretation Code 81.0 - 100.0 fL Remisol SS Monocytes (Bld) [#/Vol] 0.70 103/mcL [...] 3.5 - 5.0 mEq/L AH ADM SS Protein [Mass/Vol] 6.1 G/dL Invalid Interpretation Code 5.7 - 8.2 G/dL AH ADM SS RBC (Bld) [#/Vol] 4.00 106/mcL Invalid Interpretation Code 4.50 - 6.00 10^6/mcL AH Remisol SS Sodium [Moles/Vol] 140 mmol/L Invalid Interpretation Code 136 - 145 mEq/L AH ADM SS Urea nitrogen [Mass/Vol] 32.0 mg/dL Invalid Interpretation Code 8.0 - 22.0 mg/dL AH ADM SS Urea nitrogen/Creatinine [Mass ratio] 21.6 ratio Invalid Interpretation Code 10.0 - 22.0 ratio AH ADM SS WBC (Bld) [#/Vol] 6.50 103/mcL Invalid Interpretation Code 4.50 - 10.80 10^3/mcL AH Remisol SS LABORATORYOrdered By: Kay Toribio on 07-31-2021 Electrolyte Balance 5.0 mEq/L Invalid Interpretation Code 4.0 - 15.0 mEq/L Chemistry S LABORATORYOrdered By: Monica Rojas on 07-31-2021 INR Coag (PPP) [Relative time] 1.2 {INR} Invalid Interpretation Code AH Auto Coag SS PT Coag (PPP) [Time] 13.7 s Invalid Interpretation Code 9.0 - 14.8 seconds AH Auto Coag SS LABORATORYOrdered By: Dior schmitz on 07-30-2021 Blood Glucose Testing Reason Routine (07/30/21 9:46 PM) [facility] Work Phone: Glucose [Mass/Vol] 111 mg/dL Invalid Interpretation Code 82 - 115 mg/dL [facility] Work Phone: LABORATORYOrdered By: Darin Watson on 07-30-2021 aPTT Coag (PPP) [Time] 64.5 s Invalid Interpretation Code 25.0 - 35.0 seconds AH Auto Coag SS Heparin dose (APTT) Heparin IV (07/30/21 6:11 AM) Invalid Interpretation Code AH Auto Coag SS INR Coag (PPP) [Relative time] 1.2 {INR} Invalid Interpretation Code AH Auto Coag SS PT Coag (PPP) [Time] 14.7 s Invalid Interpretation Code 9.0 - 14.8 seconds AH Auto Coag SS LABORATORYOrdered By: SYSTEM SYSTEM [...] - 110 mEq/L ADM SS CO2 [Moles/Vol] 25 mmol/L Invalid [...] (S/P/Bld) [Vol rate/Area] ml/min/1.73sqm Invalid Interpretation Code ADM SS GFR/1.73 sq M.predicted among non-blacks MDRD (S/P/Bld) [Vol rate/Area] 52 ml/min/1.73sqm Invalid Interpretation Code AH ADM SS Glucose [Mass/Vol] 214 mg/dL Invalid [...] Invalid Interpretation Code 20.0 - 40.0 % Remisol SS Magnesium [Mass/Vol] 2.2 mg/dL Invalid [...] Invalid Interpretation Code 136 - 145 mEq/L ADM SS Urea nitrogen [Mass/Vol] 32.0 mg/dL Invalid Interpretation Code 8.0 - 22.0 mg/dL ADM SS Urea nitrogen/Creatinine [Mass ratio] 22.7 ratio Invalid Interpretation Code 10.0 - 22.0 ratio AH ADM SS WBC (Bld) [#/Vol] 7.90 103/mcL Invalid Interpretation Code 4.50 - 10.80 10^3/mcL Remisol SS LABORATORYOrdered By: Tonja Napier on 07-30-2021 Barometric Pressure 713 mm[Hg] Invalid Interpretation Code AH Auto Chem SS Base excess Calc (Bld) [Moles/Vol] -1.2000 mmol/L Invalid Interpretation Code AH Auto Chem SS CO2 (Bld) [Partial pressure] 39.1 mm[Hg] Invalid Interpretation Code 32.0 - 46.0 mm Hg AH Auto Chem SS CO2 [Moles/Vol] 24.6 mmol/L Invalid Interpretation Code 22.0 - 30.0 mmol/L AH Auto Chem SS HCO3 (Bld) [Moles/Vol] 23.4 mmol/L Invalid Interpretation Code 21.0 - 29.0 mmol/L AH Auto Chem SS Oxygen (Bld) [Partial pressure] 82.3 mm[Hg] Invalid Interpretation Code 74.0 - 108.0 mm Hg AH Auto Chem SS pH (Bld) 7.395 [pH] Invalid Interpretation Code 7.380 - 7.460 AH Auto Chem SS Lactate [Moles/Vol] 1.2 mmol/L Invalid Interpretation Code 0.2 - 2.0 mmol/L AH Auto Chem SS LABORATORYOrdered By: Gladys Salcedo on 07-29-2021 aPTT Coag (PPP) [Time] 43.2 s Invalid Interpretation Code 25.0 - 35.0 seconds AH Auto Coag SS Heparin dose (APTT) Heparin IV (07/29/21 11:52 PM) Invalid Interpretation Code AH Auto Coag SS LABORATORYOrdered By: SYSTEM SYSTEM [...] 1.6 - 2.4 mg/dL AH ADM SS LABORATORYOrdered By: Arie Kimbrough on 07-29-2021 aPTT Coag (PPP) [Time] 78.6 s Invalid Interpretation Code 25.0 - 35.0 seconds Auto Coag SS Heparin dose (APTT) Heparin IV (07/29/21 7:52 AM) Invalid Interpretation Code AH Auto Coag SS LABORATORYOrdered By: Tonja Napier on 07-29-2021 INR Coag (PPP) [Relative time] 1.4 {INR} Invalid Interpretation Code AH Auto Coag SS PT Coag (PPP) [Time] 16.0 s Invalid Interpretation Code 9.0 - 14.8 seconds AH Auto Coag SS LABORATORYOrdered By: SYSTEM SYSTEM on 07-28-2021 Albumin [Mass/Vol] 3.2 G/dL Invalid Interpretation Code 3.2 - 4.8 G/dL AH ADM SS Albumin/Globulin [Mass ratio] 1.0 {ratio} Invalid Interpretation Code 0.9 - 1.6 ratio AH ADM SS ALP [Catalytic activity/Vol] 70 U/L Invalid Interpretation Code 38 - 126 U/L AH ADM SS ALT [Catalytic activity/Vol] 31 U/L Invalid Interpretation Code 12 - 55 U/L AH ADM SS AST [Catalytic activity/Vol] 24 U/L Invalid Interpretation Code 8 - 34 U/L ADM SS Bilirubin [Mass/Vol] 1.0 mg/dL Invalid Interpretation Code 0.2 - 1.2 mg/dL AH ADM SS Globulin (S) [Mass/Vol] 3.3 G/dL Invalid Interpretation Code 1.5 - 3.8 G/dL AH ADM SS Magnesium [Mass/Vol] 2.3 mg/dL Invalid [...] strip (U) [Mass/Vol] Negative Invalid Interpretation Code Negativemg/ dL AH Auto Urine SS Hemoglobin Auto test strip (U) [Mass/Vol] Negative (07/28/21 1:24 AM) Invalid Interpretation Code Neg-Trace AH Auto Urine SS Ketones Ql (U) Negative Invalid Interpretation Code Neg-Tracemg /dL AH Auto Urine SS UA Leuk Est [...] SS UA Protein Negative Invalid Interpretation Code Negativemg/ dL AH Auto Urine SS UA RBC 0-2 /HPF Invalid Interpretation Code 0-2/HPF AH Auto Urine SS UA Spec Grav 1.020 (07/28/21 1:24 AM) Invalid Interpretation Code 1.006-1.029 Auto Urine SS UA Specimen Type Clean Catch (07/28/21 1:24 AM) Invalid Interpretation Code Auto Urine SS UA Squam Epithelial Rare /HPF Invalid Interpretation Code 0-20/HPF Auto Urine SS UA Urobilinogen 1.0 E.U./dL Invalid Interpretation Code 0.2-1.0E.U. /dL AH Auto Urine SS WBC LM.HPF (Urine sed) [#/Area] 0-2 /HPF Invalid Interpretation Code 0-5/HPF Auto Urine SS LABORATORYOrdered By: SYSTEM SYSTEM on 07-26-2021 Troponin I.cardiac DL <= 0.01 ng/mL [Mass/Vol] 76.92 ng/L Invalid Interpretation Code 0.00 - 54.00 ng/L ADM SS TSH Qn 1.689 mIU/mL Invalid Interpretation Code 0.550 - 4.780 mIU/mL ADM SS LABORATORYOrdered By: SYSTEM SYSTEM on 07-25-2021 Natriuretic peptide.B prohormone N-Terminal [Mass/Vol] 977 pg/mL Invalid Interpretation Code 0 - 1800 pg/mL ADM SS Troponin I.cardiac DL <= 0.01 ng/mL [Mass/Vol] 74.54 ng/L Invalid Interpretation Code 0.00 - 54.00 ng/L ADM SS Troponin I.cardiac DL <= 0.01 ng/mL [Mass/Vol] 71.79 ng/L Invalid Interpretation Code 0.00 - 54.00 ng/L ADM SS XR Foot - left AP [...] Impression: 1. No acute fracture or dislocation. Construction Project Engineer: [employer] Transcribe Date/Time: Jul 12 2021 9:33A Dictated by : FCO ARRIETA MD This examination was interpreted and the report reviewed and electronically signed by: FCO ARRIETA MD on Jul 12 2021 9:35AM [facility] DIVISION OF RADIOLOGY Provider, [facility] Giovannajacqueline [facility] - 07/12/2021 * * *Final Report* [...] Impression: 1. No acute fracture or dislocation. Construction Project Engineer[facility] Transcribe Date/Time: Jul 12 2021 9:33A Dictated by : FCO ARRIETA MD This examination was interpreted and the report reviewed and electronically signed by: FCO ARRIETA MD on Jul 12 2021 9:35AM [facility] Radiology Study observation (narrative) [facility] XR Foot - left AP and Latera l and obliqueOrdered By: Ccf Provider on 07-12-2021 [facility] XR Chest PA and Lateralon IMPRESSION: Areas of atelectasis and/or fibrosis bilaterally are grossly stable. Cardiomegaly Construction Project Engineer: [facility] Transcribe Date/Time: Mar 19 2021 12:19P Dictated by : ALEXI MIR MD This examination was interpreted and the report reviewed and electronically signed by: ALEXI MIR MD on Mar 19 2021 12:20PM [facility] DIVISION OF RADIOLOGY * * *Final Report* [...] soft tissues: Unremarkable. DIVISION OF RADIOLOGY Provider, Omar Flowers [facility] - 03/19/2021 * * *Final Report* [...] and/or fibrosis bilaterally are grossly stable. Cardiomegaly Construction Project Engineer: [facility] Transcribe Date/Time: Mar 19 2021 12:19P Dictated by : ALEXI MIR MD This examination was interpreted and the report reviewed and electronically signed by: ALEXI MIR MD on Mar 19 2021 12:20PM EST [facility] Radiology Study observation (narrative) [facility] XR Chest PA and LateralOrder ed By: [facility] Provider on 03-19-2021 [facility] Office Visit: mansoor 03-10 Documentation of current medications (procedure) Done Invalid Interpretation Code [facility] Work Phone: Fall risk assessment No Invalid Interpretation Code [facility] Work Phone: Tobacco smoking status NHIS Never Invalid Interpretation Code [facility] Work Phone: Tobacco use [facility] Former smoker Invalid Interpretation Code [facility] Work Phone: Vital Signs Date Time Vital Sign Value Performing Clinician Facility 03-04-2025 21:02-0400 Body temperature 98.8 [degF] Dr. George Mata MD Work Phone: [facility] 03-04-2025 21:02-0400 Diastolic blood pressure 73 mm[Hg] Dr. George Mata MD Work Phone: 6(656)[phone] [place] [address] 03-04-2025 21:02-0400 Heart rate 70 /min Dr. George Mata MD Work Phone: 7(847)[phone] [place] [address] 03-04-2025 21:02-0400 Respiratory rate 19 /min Dr. George Mata MD Work Phone: 8(300)[phone] [place] [address] 03-04-2025 21:02-0400 SaO2% (BldA) [Mass fraction] 100 % Dr. George Mata MD Work Phone: [facility] 03-04-2025 21:02-0400 Systolic blood pressure 118 mm[Hg] Dr. George Mata MD Work Phone: [facility] 03-04-2025 11:19-0400 Body mass index (BMI) [Ratio] 27.6 kg/m2 Dr. George Mata MD Work Phone: [facility] 03-04-2025 11:19-0400 Body weight 84.[address] George Mata MD Work Phone: 2(252)[phone] [place] [address] 03-04-2025 11:17-0400 Body height 175.[address] George Mata MD Work Phone: [facility] 01-10-2025 11:42-0400 Body mass index (BMI) [Ratio] 27.44 kg/m2 George Mata MD Work Phone: [facility] 01-10-2025 11:42-0400 Body weight 80.9 kg George Mata MD Work Phone: [facility] 01-10-2025 11:42-0400 Diastolic blood pressure 62 mm[Hg] George Mata MD Work Phone: [facility] 01-10-2025 11:42-0400 Heart rate 68 /min George Mata MD Work Phone: [facility] 01-10-2025 11:42-0400 SaO2% (BldA) [Mass fraction] 98 % George Mata MD Work Phone: [facility] 01-10-2025 11:42-0400 Systolic blood pressure 110 mm[Hg] George Mata MD Work Phone: [facility] 11-01-2024 08:53-0400 Body mass index (BMI) [Ratio] 26.86 kg/m2 George Mata MD Work Phone: [facility] 11-01-2024 08:53-0400 Body temperature 98.01 [degF] George Mata MD Work Phone: [facility] 11-01-2024 08:53-0400 Body weight 79.2 kg George Mata MD Work Phone: [facility] 11-01-2024 08:53-0400 Diastolic blood pressure 60 mm[Hg] George Mata MD Work Phone: [facility] 11-01-2024 08:53-0400 Heart rate 68 /min George Mata MD Work Phone: [facility] 11-01-2024 08:53-0400 Respiratory rate 20 /min George Mata MD Work Phone: [facility] 11-01-2024 08:53-0400 Systolic blood pressure 106 mm[Hg] George Mata MD Work Phone: [facility] 08-09-2024 10:01-0500 Body height 171.7 cm George Mata MD Work Phone: [facility] 08-09-2024 10:01-0500 Body mass index (BMI) [Ratio] 27.75 kg/m2 George Mata MD Work Phone: [facility] 08-09-2024 10:01-0500 Body temperature 97.2 [degF] George Mata MD Work Phone: [facility] 08-09-2024 10:01-0500 Body weight 81.8 kg George Mata MD Work Phone: [facility] 08-09-2024 10:01-0500 Diastolic blood pressure 68 mm[Hg] George Mata MD Work Phone: [facility] 08-09-2024 10:01-0500 Heart rate 72 /min George Mata MD Work Phone: [facility] 08-09-2024 10:01-0500 Respiratory rate 24 /min George Mata MD Work Phone: [facility] 08-09-2024 10:01-0500 SaO2% (BldA) [Mass fraction] 97 % George Maat MD Work Phone: [facility] 08-09-2024 10:01-0500 Systolic blood pressure 112 mm[Hg] George Mata MD Work Phone: [facility] 03-09-2024 14:25-0400 Body mass index (BMI) [Ratio] 26.59 kg/m2 George Mata MD Work Phone: [facility] 03-09-2024 14:25-0400 Body temperature 97.11 [degF] George Mata MD Work Phone: [facility] 03-09-2024 14:25-0400 Body weight 80.74 kg George Mata MD Work Phone: [facility] 03-09-2024 14:25-0400 Diastolic blood pressure 62 mm[Hg] George Mata MD Work Phone: [facility] 03-09-2024 14:25-0400 Heart rate 64 /min George Mata MD Work Phone: [facility] 03-09-2024 14:25-0400 Respiratory rate 18 /min George Mata MD Work Phone: [facility] 03-09-2024 14:25-0400 Systolic blood pressure 104 mm[Hg] George Mata MD Work Phone: [facility] 11-10-2023 11:39-0400 Body temperature 96.91 [degF] George Mata MD Work Phone: [facility] 11-10-2023 11:39-0400 Body weight 80.74 kg George Mata MD Work Phone: [facility] 11-10-2023 11:39-0400 Diastolic blood pressure 64 mm[Hg] George Mata MD Work Phone: [facility] 11-10-2023 11:39-0400 Heart rate 64 /min George Mata MD Work Phone: [facility] 11-10-2023 11:39-0400 Respiratory rate 18 /min George Mata MD Work Phone: [facility] 11-10-2023 11:39-0400 Systolic blood pressure 108 mm[Hg] George Mata MD Work Phone: [facility] 01-23-2023 09:00-0400 Body weight 81.19 kg George Mata MD Work Phone: [facility] 01-23-2023 09:00-0400 Diastolic blood pressure 60 mm[Hg] George Mata MD Work Phone: [facility] 01-23-2023 09:00-0400 Heart rate 70 /min George Mata MD Work Phone: [facility] 01-23-2023 09:00-0400 SaO2% (BldA) [Mass fraction] 98 % George Mata MD Work Phone: [facility] 01-23-2023 09:00-0400 Systolic blood pressure 110 mm[Hg] George Mata MD Work Phone: [facility] 07-24-2022 13:08-0500 Body height 174.2 cm George Mata MD Work Phone: [facility] 07-24-2022 13:08-0500 Body temperature 97.3 [degF] George Mata MD Work Phone: [facility] 07-24-2022 13:08-0500 Body weight 80.74 kg George Mata MD Work Phone: [facility] 07-24-2022 13:08-0500 Diastolic blood pressure 58 mm[Hg] George Mata MD Work Phone: [facility] 07-24-2022 13:08-0500 Heart rate 68 /min George Mata MD Work Phone: [facility] 07-24-2022 13:08-0500 Respiratory rate 16 /min George Mata MD Work Phone: [facility] 07-24-2022 13:08-0500 Systolic blood pressure 114 mm[Hg] George Mata MD Work Phone: [facility] 10-24-2021 13:45-0400 diastolic 63 mm[Hg] DEANA SIDDIQI MD [facility] 10-24-2021 13:45-0400 Heart rate 70 /min DEANA SIDDIQI MD [facility] 10-24-2021 13:45-0400 Respiratory rate 16 /min DEANA SIDDIQI MD [facility] 10-24-2021 13:45-0400 systolic 99 mm[Hg] DEANA SIDDIQI MD [facility] 10-24-2021 11:15-0400 diastolic 70 mm[Hg] DEANA SIDDIQI MD [facility] 10-24-2021 11:15-0400 Heart rate 72 /min DEANA SIDDIQI MD [address] [place] [address] 10-24-2021 11:15-0400 Respiratory rate 16 /min DEANA SIDDIQI MD [address] [place] [address] 10-24-2021 11:15-0400 systolic 106 mm[Hg] DEANA SIDDIQI MD [address] [place] [address] 10-24-2021 08:39-0400 Body height 175.3 cm DEANA SIDDIQI MD [address] [place] [address] 10-24-2021 08:39-0400 Body temperature 98.06 [degF] DEANA SIDDIQI MD [address] [place] [address] 10-24-2021 08:39-0400 Body weight 86.7 kg DEANA SIDDIQI MD [address] [place] [address] 10-24-2021 08:39-0400 diastolic 60 mm[Hg] DEANA SIDDIQI MD [address] [place] [address] 10-24-2021 08:39-0400 Heart rate 70 /min DEANA SIDDIQI MD [address] [place] [address] 10-24-2021 08:39-0400 Respiratory rate 16 /min DEANA SIDDIQI MD [address] [place] [address] 10-24-2021 08:39-0400 systolic 114 mm[Hg] DEANA SIDDIQI MD [facility] 07-31-2021 11:12-0500 Heart rate 72 /min DR BRIONNA VALENTE MD [facility] 07-31-2021 11:12-0500 Reason For Taking VItal Signs DR BRIONNA VALENTE MD [facility] 07-31-2021 10:54-0500 Body temperature 98.24 [degF] DR BRIONNA VALENTE MD [facility] 07-31-2021 10:54-0500 Diastolic blood pressure 58 mm[Hg] DR BRIONNA VALENTE MD [address] [place] [address] 07-31-2021 10:54-0500 Heart rate 72 /min DR BRIONNA VALENTE MD [facility] 07-31-2021 10:54-0500 Reason For Taking VItal Signs DR BRIONNA VALENTE MD [facility] 07-31-2021 10:54-0500 Respiratory rate 18 /min DR BRIONNA VALENTE MD [facility] 07-31-2021 10:54-0500 Systolic blood pressure 118 mm[Hg] DR BRIONNA VALENTE MD [facility] 07-31-2021 07:22-0500 Heart rate 72 /min DR BRIONNA VALENTE MD [facility] 07-31-2021 07:19-0500 Body temperature 98.24 [degF] DR BRIONNA VALENTE MD [facility] 07-31-2021 07:19-0500 Diastolic blood pressure 70 mm[Hg] DR BRIONNA VALENTE MD [facility] 07-31-2021 07:19-0500 Mean blood pressure 83 mm[Hg] DR BRIONNA VALENTE MD [facility] 07-31-2021 07:19-0500 Reason For Taking VItal Signs DR BRIONNA VALENTE MD [facility] 07-31-2021 07:19-0500 Respiratory rate 18 /min DR BRIONNA VALENTE MD [facility] 07-31-2021 07:19-0500 Systolic blood pressure 110 mm[Hg] DR BRIONNA VALENTE MD [facility] 07-31-2021 07:02-0500 Heart rate 74 /min DR BRIONNA VALENTE MD [facility] 07-31-2021 07:02-0500 Respiratory rate 18 /min DR BRIONNA VALENTE MD [facility] 07-31-2021 04:33-0500 Body temperature 97.88 [degF] DR BRIONNA VALENTE MD [facility] 07-31-2021 04:33-0500 Diastolic blood pressure 76 mm[Hg] DR BRIONNA VALENTE MD [facility] 07-31-2021 04:33-0500 Mean blood pressure 85 mm[Hg] DR BRIONNA VALENTE MD [facility] 07-31-2021 04:33-0500 Systolic blood pressure 104 mm[Hg] DR BRIONNA VALENTE MD [facility] 07-30-2021 19:35-0500 Heart rate 72 /min DR BRIONNA VALENTE MD [facility] 07-30-2021 16:33-0500 Diastolic Blood Pressure NBP [address] BRIONNA VALENTE MD [facility] 07-30-2021 16:33-0500 Heart rate 71 /min DR BRIONNA VALENTE MD [facility] 07-30-2021 16:33-0500 Mean blood pressure 68 mm[Hg] DR BRIONNA VALENTE MD [facility] 07-30-2021 16:33-0500 Systolic Blood Pressure NBP [address] BRIONNA VALENTE MD [facility] 07-30-2021 14:55-0500 Mean blood pressure 80 mm[Hg] DR BRIONNA VALENTE MD [facility] 07-30-2021 13:40-0500 Heart rate 70 /min DR BRIONNA VALENTE MD [facility] 07-30-2021 10:59-0500 Diastolic Blood Pressure NBP [address] BRIONNA VALENTE MD [facility] 07-30-2021 10:59-0500 Mean blood pressure 82 mm[Hg] DR BRIONNA VALENTE MD [facility] 07-30-2021 10:59-0500 Systolic Blood Pressure NBP [address] BRIONNA VALENTE MD [facility] 07-30-2021 08:52-0500 Diastolic Blood Pressure NBP [address] BRIONNA VALENTE MD [facility] 07-30-2021 08:52-0500 Mean blood pressure 85 mm[Hg] DR BRIONNA VALENTE MD [facility] 07-30-2021 08:52-0500 Systolic Blood Pressure NBP [address] BRIONNA VALENTE MD [facility] 07-30-2021 04:36-0500 Body temperature 96.26 [degF] DR BRIONNA VALENTE MD [facility] 07-30-2021 04:36-0500 SaO2% (BldA) [Mass fraction] 95.9 % DR BRIONNA VALENTE MD [facility] 07-25-2021 20:25-0500 Body height 175.[address] BRIONNA VALENTE MD [facility] 07-25-2021 20:25-0500 Body weight 79.[address] BRIONNA VALENTE MD [facility] 07-25-2021 20:25-0500 Body weight 25.94 kg/m2 DR BRIONNA VALENTE MD [facility] 07-25-2021 12:48-0500 Body weight 81.[address] BRIONNA VALENTE MD [facility] 03-25-2017 09:38-0400 BMI (Body Mass Index) 27.17 kg/m2 Kaveh Magallon MD [facility] [employer] Work Phone: 03-25-2017 09:38-0400 BP Diastolic 83 mm[Hg] Kaveh Magallon MD [facility] [employer] Work Phone: 03-25-2017 09:38-0400 BP Systolic 117 mm[Hg] Kaveh Magallon MD [facility] [employer] Work Phone: 03-25-2017 09:38-0400 Height 175.26 cm Kaveh Magallon MD [facility] [employer] Work Phone: 03-25-2017 09:38-0400 Pulse (Heart Rate) 70 /min Kaveh Magallon MD [facility] [employer] Work Phone: 03-25-2017 09:38-0400 Respiratory Rate 18 /min Kaveh Magallon MD [facility] [employer] Work Phone: 03-25-2017 09:38-0400 Weight 83.46 kg Kaveh Magallon MD [facility] [employer] Work Phone: Encounters Encounter Date Encounter Type Care Provider Facility Start: 03-04-2025 Evaluation and management of inpatient Dr. Abimael Donaldson DO -Progressive Care Unit Work Phone: Start: 02-28-2025 End: 02-28-2025 Telephone encounter Jonathan Hawkins [facility] Comment on above: Anticoagulation Tele phone Fu (Home INR result) Start: 02-24-2025 End: 02-24-2025 ambulatory VERONIQUE TOUSSAINT MD Facility:A Start: 02-24-2025 End: 02-24-2025 SAME DAY STAY VERONIQUE TOUSSAINT MD [facility] Start: 02-21-2025 End: 02-21-2025 Telephone encounter Jonathan Hawkins [facility] Comment on above: Anticoagulation Tele phone Fu (Home INR result) Start: 02-14-2025 End: 02-14-2025 Telephone encounter Jonathan Hawkins [facility] Comment on above: Anticoagulation Tele phone Fu (Home INR result) Start: 02-13-2025 End: 02-13-2025 Admission to [facility] VERONIQUE TOUSSAINT MD [facility] Start: 02-13-2025 End: 02-13-2025 ambulatory VERONIQUE TOUSSAINT MD Facility:A Start: 02-09-2025 ambulatory VERONIQUE TOUSSAINT MD Fac ility:A Start: 02-07-2025 End: 02-07-2025 Telephone encounter Jonathan Hawkins [facility] Comment on above: Anticoagulation Tele phone Fu (Home INR result) Start: 01-31-2025 End: 01-31-2025 Telephone encounter Jonathan Hawkins [facility] Comment on above: Anticoagulation Tele phone Fu (Home INR result) Start: 01-30-2025 End: 01-30-2025 Telephone encounter George Mata MD Work Phone: Internal Medicine Day Comment on above: Patient Update Start: 01-24-2025 End: 01-24-2025 Telephone encounter Jonathan Hawkins [facility] Comment on above: Anticoagulation Tele phone Fu (Home INR result) Start: 01-17-2025 End: 01-17-2025 Telephone encounter Jonathan Hawkins [facility] Comment on above: Anticoagulation Tele phone Fu (Home INR result) Start: 01-10-2025 End: 01-10-2025 Telephone encounter Jonathan Hawkins [facility] Comment on above: Anticoagulation Tele phone Fu (Home INR result) Start: 01-10-2025 End: 01-10-2025 Patient encounter procedure George Mata MD Work Phone: Internal Medicine Day Comment on above: Permanent atrial fib rillation (HCC) (Primary Dx); Chronic systolic heart failure (HCC); Interstitial lung disease (HCC); Controlled type 2 diabetes mellitus with stage 3 chronic kidney disease, without long-term current use of insulin (HCC); Essential hypertension Start: 01-10-2025 End: 01-10-2025 ambulatory GEORGE MATA Facility:[facility] Start: 01-09-2025 End: 01-09-[address] GEORGE MATA MD Facility:[facility] Start: 01-09-2025 End: 01-09-2025 Patient encounter procedure GATITO ROSE MD [facility] Start: 01-05-2025 End: 01-05-2025 Telephone encounter George Mata MD Work Phone: Internal [facility] [place] Comment on above: Patient Update Start: 12-31-2024 End: 01-04-2025 Evaluation and management of inpatient DR CARLOS RIDLEY MD [facility] Start: 12-26-2024 End: 12-26-2024 Telephone encounter [facility] Comment on above: Anticoagulation Tele phone Fu Start: 12-16-2024 End: 12-16-[address] George Mata MD Work Phone: [facility] Work Phone: Start: 12-16-2024 End: 12-16-[address] Mackenzie Iverson DO -Laboratory Work Phone: Start: 12-16-2024 End: 12-16-2024 ambulatory Mackenzie Iverson Facility:[facility] Start: 12-13-2024 End: 12-13-2024 Telephone encounter Jonathan Hawkins [facility] Comment on above: Anticoagulation Tele phone Fu (Home INR result) Start: 11-29-2024 End: 11-29-2024 Telephone encounter Jonathan Hawkins [facility] Comment on above: Anticoagulation Tele phone Fu (Home INR result) Start: 11-18-2024 End: 11-18-[address] GEORGE MATA MD Facility:A Start: 11-18-2024 End: 11-18-2024 Patient encounter procedure BRIONNA GANT MD [facility] Start: 11-17-2024 End: 11-17-2024 Refill George Mata MD Work Phone: Hematology/Oncology Comment on above: Refill Request; Open ed In Error Medication Request Start: 11-15-2024 End: 11-15-2024 Telephone encounter Elliott Gleason [facility] Comment on above: Anticoagulation Tele phone Fu (Home INR result ) Start: 11-01-2024 End: 11-01-2024 Telephone encounter Lian Coulter [facility] Comment on above: Anticoagulation Tele phone Fu (Home INR) Start: 11-01-2024 End: 11-01-2024 ambulatory GEORGE MATA Facility:[facility] Start: 11-01-2024 End: 11-01-2024 Patient encounter procedure George Mata MD Work Phone: Internal Medicine [place] Comment on above: Lumbosacral radiculo marina (Primary Dx); Encounter for immunization; Asthma, moderate persistent, well-controlled; Atherosclerosis of [place] coronary artery of [place] heart without angina pectoris; Controlled type 2 diabetes mellitus with stage 3 chronic kidney disease, without long-term current use of insulin (HCC); Chronic systolic heart failure (HCC); Anemia due to stage 3b chronic kidney disease (HCC) (HCC); Irritable bowel syndrome, unspecified type; Gout of foot, unspecified cause, unspecified chronicity, unspecified laterality Start: 10-18-2024 End: 10-18-2024 Telephone encounter Jonathan Hawkins [facility] Comment on above: Anticoagulation Tele phone Fu (Home INR result) Start: 10-17-2024 End: 10-17-[address] George Mata MD Work Phone: [facility] Work Phone: Start: 10-17-2024 End: 10-17-[address] Faizan Pierce MD -Cardiovascular Services Work Phone: Start: 10-17-2024 End: 10-17-2024 ambulatory George Mata Facility:[facility] Start: 10-04-2024 End: 10-04-2024 Telephone encounter Jonathan Humphriesantony [facility] Comment on above: Anticoagulation Tele phone Fu (Home INR result) Start: 10-04-2024 ambulatory Mackenzie Iverson Facility: [facility] Start: 09-20-2024 End: 09-20-2024 Telephone encounter Jonathan Humphriesantony [facility] Ambulatory Telemanagement Comment on above: Anticoagulation Tele phone Fu (Home INR result) Start: 09-13-2024 End: 09-16-2024 Telephone encounter George Mata MD Work Phone: [facility] [place] Comment on above: Results (Labs/consul t nephrology ) Start: 09-06-2024 End: 09-06-2024 Telephone encounter Jonathan Hawkins [facility] Ambulatory Telemanagement Comment on above: Anticoagulation Tele phone Fu (Home INR result) Start: 09-06-2024 End: 09-06-2024 ambulatory GEORGE MATA Facility:[facility] Start: 08-23-2024 End: 08-23-2024 Telephone encounter Jonathan Hawkins [facility] Ambulatory Telemanagement Comment on above: Anticoagulation Tele phone Fu (Home INR result) Declined podiatry re ferral Start: 08-16-2024 End: 08-16-2024 Telephone encounter Jonathan Hawkins [facility] Ambulatory Telemanagement Comment on above: Anticoagulation Tele phone Fu (Home INR result) Start: 08-15-2024 End: 08-15-2024 Telephone encounter George Mata MD Work Phone: [facility] [place] Comment on above: Results (xray) Start: 08-09-2024 End: 08-09-2024 Subsequent hospital visit by physician Karen [facility] Work Phone: Radiology Comment on above: Acute cough [R05.1] Start: 08-09-2024 End: 08-09-2024 ambulatory GEORGE MATA Facility:[facility] Start: 08-09-2024 End: 08-09-2024 Patient encounter procedure George Mata MD Work Phone: Internal Medicine Day Comment on above: Routine medical exam (Primary Dx); Pure hypercholesterolemia; Controlled type 2 diabetes mellitus with stage 3 chronic kidney disease, without long-term current use of insulin (HCC); Chronic systolic heart failure (HCC); Asthma, moderate persistent, well-controlled; Byers's esophagus with dysplasia; Irritable bowel syndrome, unspecified type; Anticoagulated on Coumadin ( home INR testing); Atherosclerosis of ely shoshone coronary artery of ely shoshone heart without angina pectoris; Essential hypertension; Acute cough; Chronic ankle pain, unspecified laterality; PVD (peripheral vascular disease) with claudication (HCC); Thrombocytopenia (HCC); Ventricular tachycardia (HCC); Interstitial lung disease (HCC) Start: 08-09-2024 End: 08-09-2024 Patient encounter status George Mata MD Work Phone: [facility] Start: 07-19-2024 End: 07-19-2024 Telephone encounter Jonathan Hawkins [facility] Ambulatory Telemanagement Comment on above: Anticoagulation Tele phone Fu (Home INR result) Start: 07-05-2024 End: 07-05-2024 Telephone encounter Lian Coulter [facility] Ambulatory Telemanagement Comment on above: Anticoagulation Tele phone Fu (Home INR) Start: 06-21-2024 End: 06-21-2024 Telephone encounter Jonathan Hawkins [facility] Ambulatory Telemanagement Comment on above: Anticoagulation Tele phone Fu (Home INR result) Start: 06-07-2024 End: 06-07-2024 Telephone encounter Jonathan Hawkins [facility] Ambulatory Telemanagement Comment on above: Anticoagulation Tele phone Fu (Home INR result) Start: 05-24-2024 End: 05-24-2024 Telephone encounter Jonathan Hawkins [facility] Comment on above: Anticoagulation Tele phone Fu (Home INR result) Start: 05-10-2024 End: 05-10-2024 Telephone encounter Elliott Gleason [facility] Comment on above: Anticoagulation Tele phone Fu (Home INR result ) Start: 04-26-2024 End: 04-26-2024 Telephone encounter Lian Coulter [facility] Ambulatory Telemanagement Comment on above: Anticoagulation Tele phone Fu (Home INR) Start: 04-12-2024 End: 04-12-2024 Telephone encounter Lian Coulter [facility] Ambulatory Telemanagement Comment on above: Anticoagulation Tele phone Fu (Home INR) Start: 03-29-2024 End: 03-29-2024 Telephone encounter Jonathan Ross [facility] Ambulatory Telemanagement Comment on above: Anticoagulation Tele phone Fu (Home INR result) Start: 03-16-2024 Refill George morris MD Work Phone: Internal Medicine Day Comment on above: Refill Request Start: 03-15-2024 Telephone encounter Jordyn Tai [facility] Ambulatory Telemanagement Comment on above: Anticoagulation Tele phone Fu Start: 03-10-2024 ambulatory BRIONNA GANT MD Fac ility:A Start: 03-09-2024 End: 03-09-2024 ambulatory GEORGE MATA Facility:[facility] Start: 03-09-2024 End: 03-09-2024 Office outpatient visit 25 minutes George Mata MD Work Phone: Internal Medicine Day Comment on above: Controlled type 2 di abetes mellitus with stage 3 chronic kidney disease, without long-term current use of insulin (HCC) (Primary Dx); Chronic systolic heart failure (HCC); Atherosclerosis of ely shoshone coronary artery of ely shoshone heart without angina pectoris; Pure hypercholesterolemia; Essential hypertension; Asthma, moderate persistent, well-controlled; Interstitial lung disease (HCC); Skin tear of left upper arm without complication, initial encounter; Screening for depression; Encounter for screening examination for other mental health and behavioral disorders Start: 03-08-2024 Telephone encounter Jonathan [facility] Ambulatory Telemanagement Comment on above: Anticoagulation Tele phone Fu (Home INR result) Start: 03-01-2024 Telephone encounter Jonathan Ross [facility] Ambulatory Telemanagement Comment on above: Anticoagulation Tele phone Fu (Home INR result) Start: 02-17-2024 Telephone encounter [facility] Ambulatory Telemanagement Comment on above: Anticoagulation Tele phone Fu (Home INR results ) Start: 02-02-2024 Telephone encounter Jonathan Ross [facility] Ambulatory Telemanagement Comment on above: Anticoagulation Tele phone Fu (Home INR result) Refill Request Start: 01-19-2024 Telephone encounter Jonathan Ross [facility] Ambulatory Telemanagement Comment on above: Anticoagulation Tele phone Fu (Home INR result) Start: 01-05-2024 Telephone encounter Jonathan Ross [facility] Ambulatory Telemanagement Comment on above: Anticoagulation Tele phone Fu (Home INR result) Start: 12-29-2023 End: 12-29-2023 ambulatory George Mata Facility:[facility] Start: 12-22-2023 Telephone encounter Jonathan Ross [facility] Ambulatory Telemanagement Comment on above: Anticoagulation Tele phone Fu (Home INR result) Start: 12-08-2023 Telephone encounter Jonathan Ross [facility] Ambulatory Telemanagement Comment on above: Anticoagulation Tele phone Fu (Home INR result) Start: 11-24-2023 Telephone encounter Lian Coulter [facility] Ambulatory Telemanagement Comment on above: Anticoagulation Tele phone Fu (Home INR) Start: 11-18-2023 End: 11-18-2023 ambulatory [facility] Work Phone: Start: 11-18-2023 End: 11-18-2023 Patient encounter procedure [facility], [facility] Work Phone: Start: 11-13-2023 Telephone encounter Pharmacist [facility] Comment on above: Anticoagulation Start: 11-10-2023 Telephone encounter Jonathan Ross [facility] Ambulatory Telemanagement Comment on above: Anticoagulation Tele phone Fu (Home INR result) Start: 11-10-2023 End: 11-10-2023 Patient encounter procedure George Mata MD Work Phone: [facility] [place] Comment on above: Sinobronchitis (Prim juan pablo Dx); Irritable bowel syndrome, unspecified type; Asthma, moderate persistent, well-controlled Start: 10-27-2023 Telephone encounter Jonathan Ross [facility] Amb[facility] Telemanagement Comment on above: Anticoagulation Tele phone Fu (Home INR result) Start: 10-13-2023 Telephone encounter Jonathan Hawkins [facility] Ambulatory Telemanagement Comment on above: Anticoagulation Tele phone Fu (Home INR result) Start: 09-29-2023 Telephone encounter Jonathan Hawkins [facility] Amb[facility] Telemanagement Comment on above: Anticoagulation Tele phone Fu (Home INR result) Start: 09-15-2023 Telephone encounter Jonathan Hawkins [facility] Telemanagement Comment on above: Anticoagulation Tele phone Fu (Home INR result) Start: 07-07-2023 Telephone encounter Jonathan Hawkins [facility] Telemanagement Comment on above: Anticoagulation Tele phone Fu (Home INR result) Start: 06-23-2023 Telephone encounter Jonathan Hawkins [facility] Ambulatory Telemanagement Comment on above: Anticoagulation Tele phone Fu (Home INR result) Start: 06-17-2023 End: 06-17-2023 ambulatory [facility] Work Phone: Start: 06-17-2023 End: 06-17-2023 Patient encounter procedure [facility] Work Phone: Start: 06-09-2023 Telephone encounter Jonathan Hawkins [facility] Amb[facility] Telemanagement Comment on above: Anticoagulation Tele phone Fu (Home INR result) Start: 05-18-2023 Refill George morris MD Work Phone: [facility] [place] Comment on above: Refill Request Start: 04-14-2023 [...] George henning MD Work Phone: [facility] [place] Comment on above: Medication Problem Start: 02-17-2023 Telephone encounter Jonathan Hawkins [facility] Amb[facility] Telemanagement Comment on above: Anticoagulation Tele phone Fu (Home INR result) Start: 02-03-2023 Telephone encounter Lian Coulter [facility] Ambulatory Telemanagement Comment on above: [...] tachycardia (HCC) Start: 01-06-2023 Telephone encounter Jonathan Ross [facility] Ambulatory Telemanagement Comment on above: Anticoagulation Tele phone Fu (Home INR result) Start: 12-23-2022 Telephone encounter Jordyn Tai [facility] Ambulatory Telemanagement Comment on above: Anticoagulation Tele phone Fu (Home INR ) Start: 12-16-2022 End: 12-16-2022 Patient encounter procedure BRIONNA GANT MD [facility] Start: 12-09-2022 Telephone encounter Jonathan Ross [facility] Ambulatory Telemanagement Comment on above: Anticoagulation Tele phone Fu (Home INR result) Start: 10-28-2022 Telephone encounter Jonathan Humphriesantony [facility] Ambulatory Telemanagement Comment on above: Anticoagulation Tele phone Fu (Home INR result) Start: 09-30-2022 Telephone encounter Jonathan Humphriesantony [facility] Ambulatory Telemanagement Comment on above: Anticoagulation Tele phone Fu (Home INR result) Start: 09-16-2022 Telephone encounter Jonathan Humphriesantony [facility] Amb[facility] Telemanagement Comment on above: Anticoagulation Tele phone Fu (Home INR) Start: 09-02-2022 Telephone encounter Jonathan Ross [facility] Ambulatory Telemanagement Comment on above: Anticoagulation Tele phone Fu (Home INR) Start: 08-22-2022 Telephone encounter George henning MD Work Phone: Internal Medicine [place] Comment on above: Future Appointment; Orders ([place] lab results from 08-12-22 faxed to Brionna Gant//[facility]/[address] [place] [address]/[id number]/[place], [place] [address]// // ) Start: 08-20-2022 Telephone encounter George henning MD Work Phone: Internal Medicine Day Comment on above: Results Start: 08-19-2022 Telephone encounter Jonathan Hawkins [facility] Telemanagement Comment on above: Anticoagulation Tele phone Fu (Home INR) Start: 08-05-2022 Telephone encounter Jordyn Tai [facility] Ambulatory Telemanagement Comment on above: Anticoagulation Tele phone Fu (Home INR /) Medication Request Start: 07-26-2022 Telephone encounter George henning MD Work Phone: Internal Medicine [place] Comment on above: Results Start: 07-24-2022 End: 07-24-2022 Patient encounter procedure George Mata MD Work Phone: Internal Medicine [place] Comment on above: Routine medical exam (Primary Dx); Asthma, moderate persistent, well-controlled; Pure hypercholesterolemia; Byers's esophagus with dysplasia; Interstitial lung disease (HCC); Atherosclerosis of ely shosh[place] coronary artery of ely shoshone heart without angina pectoris; Controlled type 2 diabetes mellitus with stage 3 chronic kidney disease, without long-term current use of insulin (HCC); Chronic systolic heart failure (HCC); PAD (peripheral artery disease) (HCC); Need for COVID-19 vaccine; Left knee pain, unspecified chronicity Start: 07-24-2022 End: 07-24-2022 Patient encounter status George Mata MD Work Phone: Internal Medicine Day Start: 07-22-2022 Telephone encounter Jonathan Ross [facility] Telemanagement Comment on above: Anticoagulation Tele phone Fu (Home INR) Start: 06-24-2022 Telephone encounter Jonathan Ross [facility] Amb[facility] Telemanagement Comment on above: Anticoagulation Tele phone Fu (Home INR) Start: 06-19-2022 Refill George morris MD Work Phone: Internal Medicine Day Comment on above: Refill Request Start: 06-10-2022 Telephone encounter Jonathan Humphriesantony [facility] Telemanagement Comment on above: Anticoagulation Tele phone Fu (Home INR) Start: 05-27-2022 Telephone encounter Lian Coulter [facility] Ambulatory Telemanagement Comment on above: Anticoagulation Tele phone Fu (Home INR result) Start: 05-19-2022 Telephone encounter George henning MD Work Phone: Internal Medicine [place] Comment on above: Patient Request Start: 05-14-2022 Refill George morris MD Work Phone: Internal Medicine Day Comment on above: Refill Request Start: 05-13-2022 Telephone encounter Jonathan Ross [facility] Telemanagement Comment on above: Anticoagulation Tele phone Fu (Home INR) Start: 04-29-2022 Telephone encounter Jonathan Humphriesantony [facility] Amb[facility] Telemanagement Comment on above: Anticoagulation Tele phone Fu (Home INR) Start: 04-21-2022 Telephone encounter George henning MD Work Phone: Internal Medicine Day Comment on above: Patient Question Start: 04-01-2022 Telephone encounter Jonathan Humphriesantony [facility] Amb[facility] Telemanagement Comment on above: Anticoagulation Tele phone Fu (Home INR) Start: 03-18-2022 Telephone encounter Jonathan Hawkins [facility] Amb[facility] Telemanagement Comment on above: Anticoagulation Tele phone Fu Start: 03-04-2022 Telephone encounter Jordyn Garcia [facility] Ambulatory Telemanagement Comment on above: Anticoagulation Tele phone Fu (Home INR ) Start: 02-18-2022 Telephone encounter Jonathan Humphriesantony [facility] Amb[facility] Telemanagement Comment on above: Anticoagulation Tele phone Fu (Home INR) Start: 02-04-2022 Telephone encounter Jonathan Humphriesantony [facility] Amb[facility] Telemanagement Comment on above: Anticoagulation Tele phone Fu (Home INR) Start: 12-24-2021 Telephone encounter Jonathan Hawkins [facility] Amb[facility] Telemanagement Comment on above: Anticoagulation Tele phone Fu (Home INR result) Start: 12-10-2021 Telephone encounter Roberth Howell [facility] Ambulatory Telemanagement Comment on above: Anticoagulation Tele phone Fu (Home INR Result) Start: 11-28-2021 Refill George morris MD Work Phone: Internal Medicine [place] Comment on above: Refill Request Start: 11-28-2021 End: 11-25-2022 Lab-Standing Order DIOR CONWAY POLICE SUPERINTENDENT-SLEEVE TURNER [facility] Start: 11-06-2021 End: 11-06-2021 Patient encounter procedure Jb2 Echocardiogram Work Phone: Cardiology Comment on above: Chronic systolic hea rt failure (HCC) Start: 11-05-2021 Telephone encounter Jonathan Hawkins [facility] Ambulatory Telemanagement Comment on above: Anticoagulation Tele phone Fu (Home INR result) Start: 10-24-2021 End: 10-24-2021 SAME DAY STAY DEANA SIDDIQI MD [facility] Start: 10-16-2021 End: 10-16-2021 Patient encounter procedure SHAINA DELGADO MD [facility] Start: 10-16-2021 End: 10-16-2021 Patient encounter procedure DEANA SIDDIQI MD [facility] Start: 07-25-2021 End: 07-31-2021 Evaluation and management of inpatient DR BRIONNA VALENTE MD [facility] Start: 07-12-2021 End: 07-12-2021 Subsequent hospital visit by physician [facility] [employer] Work Phone: Radiology Comment on above: Foot pain, left [M79 .672] Start: 03-19-2021 End: 03-19-2021 Subsequent hospital visit by physician [facility] Day Work Phone: Radiology Comment on above: Cough [R05] Procedures Date Procedure Procedure Detail Performing Clinician Start: 03-04-2025 Plain chest X-ray Dr. George Mata MD Work Phone: Start: 03-04-[address] Nevin Mata MD Work Phone: Start: 12-16-[address] Skylar [...] above: lead change G247 Vigilant DRT-D SN# [id number]. RA/LV leads from 2015. RV lead from 2012 Start: 08-09-2024 COVID [...] pressure is 8 mm Hg. Start: 07-24-2022 [employer] COVID-19 BIVALENT BOOSTER VACCINE, AGE 12+ YR George Mata MD Work Phone: Start: 11-06-2021 Echo tthrc r-t 2d w/wom-mode compl spec&colr d Charissa Chowdhury APRN.[facility] Work Phone: Start: 11-05-2021 Prothrombin time [facility] Provider Start: 10-24-2021 Cardiac catheterization DIOR CONWAY APRN-[facility] Comment on above: Procedures performed: Right [...] There is a 90% stenosis. IMPRESSIONS: Severe ely shoshone CAD with patent ORTIZ to LAD / D1 and SVG to PDA. RECOMMENDATIONS: Treatment of VT. Procedures performed : Left coronary angiography. Right coronary angiography. Saphenous vein graft angiography. ORTIZ graft angiography. SUMMARY: 1. LAD: Proximal vessel lesion: There is a 100% chronic total occlusion. 2. Right posterior descending: Proximal vessel lesion: There is a 90% stenosis. IMPRESSIONS: Severe ely shoshone CAD with patent ORTIZ to LAD / D1 and SVG to PDA. RECOMMENDATIONS: Treatment of VT. Start: 07-12-2021 Radex foot complete minimum 3 views Mai Lutz POLICE SUPERINTENDENT.SLEEVE TURNER Work Phone: Start: 03-19-2021 Radiologic exam chest 2 views Paola cid POLICE SUPERINTENDENT.[employer]EVE TURNER Work Phone: Start: 01-17-2021 Adult depression screening assessment Jonathan Hawkins [facility] Start: 04-13-2019 Tmvi w/prosthetic valve percutaneous [...] VALENTE MD Comment on above: upgraded to DEPOSIT CLERK-d Start: 08-10-2008 Percutaneous transluminal coronary angioplasty DR BRIONNA VALENTE MD Comment on above: stent placement Start: 06-22-2007 End: 01-27-2019 History of coronary artery bypass grafting Postsurgical aortocoronary bypass status Jonathan Hawkins [facility] Start: 08-10-2006 Coronary artery bypass graft [...] Detail Author Start: 03-24-2026 Urine microalbumin profile [facility] Start: 01-10-2026 Annual PCP Team Chronic Disease Visit Annual PCP Team Chronic Disease Visit [facility] Start: 01-10-2026 BP Controlled (<130/80) BP Controlled (<130/80) [facility] Start: 01-10-2026 zzBP Controlled (<130/80) (Retired) zzBP Controlled (<130/80) (Retired) [facility] Start: 11-01-2025 Annual PCP Team Chronic Disease Visit Annual PCP Team Chronic Disease Visit [facility] Start: 11-01-2025 BP Controlled (<130/80) BP Controlled (<130/80) [facility] Start: 09-06-2025 Complete blood count Hemoglobin/Hematocrit [facility] Start: 09-06-2025 Creatinine measurement Serum Creatinine [facility] Start: 09-06-2025 Hepatitis B surface antibody level LDL Cholesterol [facility] Start: 08-09-2025 Annual PCP Team Chronic Disease Visit Annual PCP Team Chronic Disease Visit [facility] Start: 08-09-2025 BP Controlled (<130/80) BP Controlled (<130/80) [facility] Start: 08-09-2025 Diabetic foot examination Diabetic Foot Exam [facility] Start: 07-12-2025 End: 07-12-2025 Patient encounter procedure 07/12/2025 1:40 PM EST Office Visit Internal Medicine Day [address] [place] [address] George Mata MD [address] [place], [place] [id number] Yearly w/ month follow-up [facility] Comment on above: Yearly w/ month follow-up Start: 04-10-2025 Influenza vaccination [facility] Vacc[facility] Start: 03-09-2025 Annual PCP Team Chronic Disease Visit Annual PCP Team Chronic Disease Visit [facility] Start: 03-09-2025 Anxiety Screening Anxiety Screening [facility] Start: 03-09-2025 BP Controlled (<130/80) BP Controlled (<130/80) [facility] Start: 03-09-2025 Depression Screening Depression Screening [facility] Start: 03-06-2025 Hemoglobin A1c measurement HbA1C [facility] Start: 03-04-2025 Verification routine [facility] Start: 03-04-2025 Admission procedure [facility] Start: 03-04-2025 Hospital admission, emergency, from emergency room, medical nature [facility] Start: 03-04-2025 [facility] Start: 03-04-2025 [facility] Start: 02-01-2025 End: 02-01-2025 Patient encounter procedure 02/01/2025 10:20 AM EDT Office Visit [facility] [place] [address] [place] [address] George Mata MD [address] [place] [address] 3 month follow-up [facility] [place] Comment on above: 3 month follow-up Start: 01-28-2025 Glaucoma screening Dilated Retinal Exam [facility] Start: 01-24-2025 Complete blood count Hemoglobin/Hematocrit [facility] Start: 01-24-2025 Creatinine measurement Serum Creatinine [facility] Start: 01-24-2025 Hepatitis B screening Urine Albumin:Creatinine Ratio [facility] Start: 01-16-2025 End: 04-17-2025 Basic metabolic 2000 panel - Serum or Plasma BASIC METABOLIC PANEL Lab Routine Controlled type 2 diabetes mellitus with stage 3 chronic kidney disease, without long-term current use of insulin (HCC) Expected: 01/16/2025, Expires: 04/17/2025 [facility] Comment on above: Expected: 01/16/2025, Expires: Start: 01-16-2025 End: 04-17-2025 CBC panel - Blood by Automated count COMPLETE BLOOD COUNT Lab Routine Anemia due to stage 3b chronic kidney disease (HCC) (HCC) Expected: 01/16/2025, Expires: 04/17/2025 [facility] Work Phone: Comment on above: Expected: 01/16/2025, Expires: Start: 01-16-2025 End: 04-17-2025 Hemoglobin A1c in Blood HEMOGLOBIN A1C Lab Routine Controlled type 2 diabetes mellitus with stage 3 chronic kidney disease, without long-term current use of insulin (HCC) Expected: 01/16/2025, Expires: 04/17/2025 [facility] Comment on above: Expected: 01/16/2025, Expires: Start: 01-16-2025 End: 04-17-2025 Urate [Mass/volume] in Serum or Plasma URIC ACID Lab Routine Gout of foot, unspecified cause, unspecified chronicity, unspecified laterality Expected: 01/16/2025, Expires: 04/17/2025 [facility] Comment on above: Expected: 01/16/2025, Expires: Start: 01-10-2025 End: 01-10-2025 Patient encounter procedure 01/10/2025 11:20 AM EDT Office Visit Internal Medicine Day [address] [facility], [place] [id number] George Mata MD [address] [place], [place] [id number] [employer] F/U D/C 01/04/2025; Atrial Fibrillation [facility] [place] Comment on above: [employer] F/U D/C 01/04/2025; Atria l Fibrillation Start: 11-09-2024 Annual PCP Team Chronic Disease Visit Annual PCP Team Chronic Disease Visit [facility] Start: 11-09-2024 BP Controlled (<130/80) BP Controlled (<130/80) [facility] Start: 11-01-2024 End: 11-01-2024 Patient encounter procedure 11/01/2024 9:00 AM EDT Office Visit [facility] [place] [address] [place], [place] [id number] George Mata MD [address] [place], [place] [id number] 3 month follow-up [facility] Day Comment on above: 3 month follow-up Start: 10-31-2024 Covid-19 Vaccine () Covid-19 Vaccine () [facility] Start: 08-10-2024 Advance Directive Discussion Advance Directive Discussion [facility] Start: 08-10-2024 Medicare Advantage Annual Wellness Visit Medicare Advantage Annual Wellness Visit [facility] Start: 08-09-2024 End: 08-09-2024 Patient encounter procedure 08/09/2024 10:00 AM EST Office Visit [facility] [address] [place] [address] George Mata MD [address] [place] [address] Yearly w/5 month follow-up [facility] Comment on above: Yearly w/5 month follow-up Start: 07-29-2024 Annual PCP Team Chronic Disease Visit Annual PCP Team Chronic Disease Visit [facility] Start: 07-29-2024 BP Controlled (<130/80) BP Controlled (<130/80) [facility] Start: 07-29-2024 Creatinine measurement Serum Creatinine [facility] Start: 07-29-2024 Diabetic foot examination Diabetic Foot Exam [facility] Start: 07-29-2024 Hepatitis B surface antibody level LDL Cholesterol [facility] Start: 07-27-2024 End: 07-27-2024 Patient encounter procedure 07/27/2024 10:20 AM EST Office Visit [facility] [address] [place] [address] George Mata MD [address] [place] [address] Yearly w/5 month follow-up [facility] Comment on above: Yearly w/5 month follow-up Start: 07-26-2024 Hemoglobin A1c measurement HbA1C [facility] Start: 07-11-2024 End: 10-10-2024 CBC panel - Blood by Automated count COMPLETE BLOOD COUNT Lab Routine Controlled type 2 diabetes mellitus with stage 3 chronic kidney disease, without long-term current use of insulin (HCC) Expected: 07/11/2024, Expires: 10/10/2024 [facility] Work Phone: Comment on above: Expected: 07/11/2024, Expires: Start: 07-11-2024 End: 10-10-2024 Comprehensive metabolic 2000 panel - Serum or Plasma COMPREHENSIVE METABOLIC PANEL Lab Routine Chronic systolic heart failure (HCC) Expected: 07/11/2024, Expires: 10/10/2024 [facility] Comment on above: Expected: 07/11/2024, Expires: Start: 07-11-2024 End: 10-10-2024 Hemoglobin A1c in Blood HEMOGLOBIN A1C Lab Routine Controlled type 2 diabetes mellitus with stage 3 chronic kidney disease, without long-term current use of insulin (HCC) Expected: 07/11/2024, Expires: 10/10/2024 [facility] Comment on above: Expected: 07/11/2024, Expires: Start: 07-11-2024 End: 10-10-2024 Lipid 1996 panel - Serum or Plasma LIPID PANEL BASIC Lab Routine Pure hypercholesterolemia Expected: 07/11/2024, Expires: 10/10/2024 [facility] Comment on above: Expected: 07/11/2024, Expires: Start: 04-10-2024 Covid-19 Vaccine ( season) Covid-19 Vaccine ( season) [facility] Start: 04-10-2024 Covid-19 Vaccine ( season) Covid-19 Vaccine ( season) [facility] Start: 04-10-2024 Influenza vaccination [facility] Start: 03-09-2024 End: 03-09-2024 Patient encounter procedure 03/09/2024 2:40 PM EDT Office Visit [facility] [address] [facility] [place] [address] George Mata MD [address] [place] [address] 6MTH FOLLOW UP [facility] Comment on above: 6MTH FOLLOW UP Start: 02-24-2024 End: 02-24-2024 Patient encounter procedure 02/24/2024 11:20 AM EDT Office Visit [facility] [address] [facility] [place] [address] Paola Blue, POLICE SUPERINTENDENT.SLEEVE TURNER [address] [place] [address] Follow up for refills [facility] Comment on above: Follow up for refills Start: 02-01-2024 End: 02-01-2024 Patient encounter procedure 02/01/2024 1:20 PM EDT Office Visit [facility] [place] [address] [place] [address] George Mata MD [address] [place] [address] 6 month follow-up [facility] Comment on above: 6 month follow-up Start: 01-28-2024 Hemoglobin A1c measurement HbA1C [facility] Start: 01-28-2024 End: 01-28-2024 Patient encounter procedure 01/28/2024 1:40 PM EDT Office Visit [facility] [place] [address] [place] [address] George Mata MD [address] [place] [address] 6 month follow-up [facility] Comment on above: 6 month follow-up Start: 01-24-2024 ANNUAL PCP TEAM CHRONIC DISEASE VISIT ANNUAL PCP TEAM CHRONIC DISEASE VISIT [facility] Start: 01-24-2024 BP CONTROLLED (<130/80) BP CONTROLLED (<130/80) [facility] Start: 01-24-2024 Complete blood count Hemoglobin/Hematocrit [facility] Start: 01-24-2024 HEMOGLOBIN/HEMATOCRIT HEMOGLOBIN/HEMATOCRIT [facility] Start: 01-24-2024 Hepatitis B screening URINE ALBUMIN:CREATININE RATIO [facility] Start: 01-24-2024 SERUM CREATININE SERUM CREATININE [facility] Start: 12-27-2023 Glaucoma screening Dilated Retinal Exam [facility] Start: 12-27-2023 Hepatitis C antibody, confirmatory test DILATED RETINAL EXAM [facility] Start: 11-28-2023 Covid-19 Vaccine () Covid-19 Vaccine () [facility] Start: 08-10-2023 Advance Directive Discussion Advance Directive Discussion [facility] Start: 08-10-2023 Behavioral Health Screening Behavioral Health Screening [facility] Start: 08-10-2023 Depression Assessment Depression Assessment [facility] Start: 07-25-2023 End: 09-24-2023 Comprehensive metabolic 2000 panel - Serum or Plasma COMP METABOLIC PANEL Lab Routine Controlled type 2 diabetes mellitus with stage 3 chronic kidney disease, without long-term current use of insulin (HCC) Expected: 07/25/2023, Expires: 09/24/2023 [facility] Work Phone: Comment on above: Expected: 07/25/2023, Expires: 4 Start: 07-25-2023 End: 09-24-2023 Hemoglobin A1c in Blood HGB A1C Lab Routine Controlled type 2 diabetes mellitus with stage 3 chronic kidney disease, without long-term current use of insulin (HCC) Expected: 07/25/2023, Expires: 09/24/2023 [facility] Work Phone: Comment on above: Expected: 07/25/2023, Expires: 4 Start: 07-25-2023 Hemoglobin A1c/Hemoglobin.total in Blood HBA1C [facility] Start: 07-25-2023 End: 09-24-2023 Lipid 1996 panel - Serum or Plasma LIPID PANEL BASIC Lab Routine Controlled type 2 diabetes mellitus with stage 3 chronic kidney disease, without long-term current use of insulin (HCC) Expected: 07/25/2023, Expires: 09/24/2023 [facility] Work Phone: Comment on above: Expected: 07/25/2023, Expires: 4 Start: 07-24-2023 3 comp foot exam completed DIABETIC FOOT EXAM [facility] Start: 07-24-2023 ANNUAL PCP TEAM CHRONIC DISEASE VISIT ANNUAL PCP TEAM CHRONIC DISEASE VISIT [facility] Start: 07-24-2023 BP CONTROLLED (<130/80) BP CONTROLLED (<130/80) [facility] Start: 07-24-2023 Hepatitis B screening URINE ALBUMIN:CREATININE RATIO [facility] Start: 07-24-2023 Hepatitis B surface antibody level LDL CHOLESTEROL [facility] Start: 07-24-2023 SERUM CREATININE SERUM CREATININE [facility] Start: 04-10-2023 Covid-19 Vaccine () Covid-19 Vaccine () [facility] Start: 04-10-2023 Influenza vaccination [facility] Start: 01-23-2023 End: 03-25-2023 ALBUMIN/CREAT RATIO RND UR [facility] Work Phone: Comment on above: Expected: 01/23/2023, Expires: Start: 01-23-2023 End: 03-25-2023 Basic metabolic 2000 panel - Serum or Plasma [facility] Work Phone: Comment on above: Expected: 01/23/2023, Expires: Start: 01-23-2023 End: 03-25-2023 CBC panel - Blood by Automated count [facility] Work Phone: Comment on above: Expected: 01/23/2023, Expires: Start: 01-23-2023 End: 03-25-2023 Hemoglobin A1c in Blood [facility] Work Phone: Comment on above: Expected: 01/23/2023, Expires: Start: 01-23-2023 End: 03-25-2023 Urate [Mass/volume] in Serum or Plasma [facility] Work Phone: Comment on above: Expected: 01/23/2023, Expires: Start: 01-22-2023 ANNUAL PCP TEAM CHRONIC DISEASE VISIT ANNUAL PCP TEAM CHRONIC DISEASE VISIT [facility] Start: 01-22-2023 BP CONTROLLED (<130/80) BP CONTROLLED (<130/80) [facility] Start: 01-22-2023 Hemoglobin A1c/Hemoglobin.total in Blood HBA1C [facility] Start: 01-22-2023 HEMOGLOBIN/HEMATOCRIT HEMOGLOBIN/HEMATOCRIT [facility] Start: 01-22-2023 Hepatitis B surface antibody level LDL CHOLESTEROL [facility] Start: 01-22-2023 SERUM CREATININE SERUM CREATININE [facility] Start: 11-22-2022 COVID-19 VACCINE (6 - Pfizer series) COVID-19 VACCINE (6 - Pfizer series) [facility] Start: 11-06-2022 BP CONTROLLED (<130/80) BP CONTROLLED (<130/80) [facility] Start: 09-23-2022 SERUM CREATININE SERUM CREATININE [facility] Start: 08-15-2022 ANNUAL PCP TEAM CHRONIC DISEASE VISIT ANNUAL PCP TEAM CHRONIC DISEASE VISIT [facility] Start: 08-15-2022 BP CONTROLLED (<130/80) BP CONTROLLED (<130/80) [facility] Start: 08-10-2022 ADVANCE DIRECTIVE DISCUSSION ADVANCE DIRECTIVE DISCUSSION [facility] Start: 08-10-2022 DEPRESSION ASSESSMENT DEPRESSION ASSESSMENT [facility] Start: 07-24-2022 Hemoglobin A1c/Hemoglobin.total in Blood HBA1C [facility] Start: 07-19-2022 3 comp foot exam completed DIABETIC FOOT EXAM [facility] Start: 07-19-2022 Hepatitis B screening URINE ALBUMIN:CREATININE RATIO [facility] Start: 07-12-2022 Hepatitis B surface antibody level LDL CHOLESTEROL [facility] Start: 04-10-2022 Influenza vaccination INFLUENZA (#1) [facility] Start: 03-19-2022 COVID-19 VACCINE (5 - Booster for Pfizer series) COVID-19 VACCINE (5 - Booster for Pfizer series) [facility] Start: 01-17-2022 Adult depression screening assessment DEPRESSION SCREENING [facility] Start: 01-10-2022 Hemoglobin A1c/Hemoglobin.total in Blood HBA1C [facility] Start: 2021 COVID-19 VACCINE (4 - Booster for Pfizer series) COVID-19 VACCINE (4 - Booster for Pfizer series) [facility] Start: 08-10-2021 ADVANCE DIRECTIVE DISCUSSION ADVANCE DIRECTIVE DISCUSSION [facility] Start: 08-10-2021 DEPRESSION ASSESSMENT DEPRESSION ASSESSMENT [facility] Start: 06-24-2020 Hepatitis C antibody, confirmatory test DILATED RETINAL EXAM [facility] Start: 04-03-2017 End: 04-03-2017 Appointment Appointment [facility] Work Phone: Start: 03-25-2017 End: 03-25-2017 Appointment Appointment [facility] Work Phone: Start: 03-25-2017 End: 03-25-2017 Diagnostic colonoscopy [facility] Work Phone: Start: 03-25-2017 End: 03-25-2017 Uppr gi endoscopy, diagnosis EGD; diagnostic [facility] Work Phone: Start: 07-19-2012 SHINGRIX VACCINE (2 of 3) SHINGRIX VACCINE (2 of 3) [facility] Start: 2004 Hepatitis B Vaccine (1 of 3 - Risk 3-dose series) Hepatitis B Vaccine (1 of 3 - Risk 3-dose series) [facility] Start: 2004 RSV Vaccine (1 - 1-dose 60+ series) RSV Vaccine (1 - 1-dose 60+ series) [facility] Start: 1962 Anxiety Screening Anxiety Screening [facility] Start: 1962 Depression Screening Depression Screening [facility] End: 07-24-2023 PVR ANK PRESS [facility] PVR ANK PRESS [facility] Vascular Lab Routine PAD (peripheral artery disease) (HCC) 1 Occurrences starting 07/24/2022 until 07/24/2023 [facility] Work Phone: Comment on above: 1 Occurrences starting 07/24/2022 until 07/24/2023 XR Chest PA and Lateral XR CHEST 2V FRONTAL/LAT Radiology Routine Acute cough 08/09/2024 11:45 AM EST [facility] Work Phone: End: 09-08-2025 XR Chest PA and Lateral XR CHEST 2V FRONTAL/LAT Radiology Routine Acute cough 1 Occurrences starting 08/09/2024 until 09/08/2025 [facility] Work Phone: Comment on above: 1 Occurrences starting 08/09/2024 until 09/08/2025 [facility] Immunizations Immunization Date Immunization Notes Care Provider Fa beba 05-03-2024 influenza virus vacc ine, unspecified formulation Jonathan Hawkins [facility] 07-29-2023 COVID-19 vaccine, ag e 12+ yr, season ([employer]) Jonathan Hawkins [facility] 05-13-2023 influenza (HD-IIV4) vaccine, age 65+ yr, high dose, quadrivalent, PF (FLUZONE HIGH-DOSE) Jonathan Hawkins [facility] Work Phone: 05-13-2023 respiratory syncytia l virus (RSV) vaccine, bivalent (ABRYSVO) Jonathan Hawkins [facility] Work Phone: 05-13-2023 influenza virus vacc ine, unspecified formulation Ruma Merchant [facility] 07-24-2022 COVID-19 booster vaccine, age 12+ yr, bivalent (PFIZER-BIONTECH) George Mata MD Work Phone: [facility] Work Phone: 04-09-2022 influenza, high-dose , quadrivalent vaccine (FLUZONE HIGH DOSE QUADRIVALENT) George Mata MD Work Phone: [facility] Work Phone: 04-09-2022 influenza virus vacc ine, unspecified formulation George Mata MD Work Phone: [facility] 01-22-2022 COVID-19 vaccine, ag e 12+ yr (PFIZER-BIONTECH - FRANCIS TOP) Jonathan Hawkins [facility] Work Phone: 07-19-2021 pneumococcal polysaccharide vaccine, [address] BRIONNA VALENTE MD [facility] 06-05-2021 influenza (aIIV4) vaccine, age 65+ yr, quadrivalent, PF (FLUAD QUADRIVALENT) Jonathan Hawkins [facility] Work Phone: 06-05-2021 influenza virus vacc ine, unspecified formulation DR BRIONNA VALENTE MD [facility] 11-01-2020 SARS-CoV-2 mRNA (tozinameran) vaccine DR BRIONNA VALENTE MD [facility] 10-11-2020 SARS-CoV-2 mRNA (tozinameran) vaccine DR BRIONNA VALENTE MD [facility] Comment on above: Result Comment: 2020: [id number] 04-20-2020 influenza, high dose seasonal, preservative-free Jonathan y [facility] Work Phone: 05-10-2019 influenza, high dose seasonal, preservative-free Jonathan y [facility] Work Phone: 04-07-2018 influenza, seasonal, injectable Jonathan y [facility] Work Phone: 05-10-2017 influenza, injectabl e, quadrivalent, preservative free [facility] 04-22-2017 influenza, seasonal, injectable Jonathan y [facility] Work Phone: 04-18-2016 influenza, injectabl e, quadrivalent, contains preservative Jonathan [facility] 03-24-2016 tetanus toxoid, redu delano diphtheria toxoid, and acellular pertussis vaccine, adsorbed DR BRIONNA VALENTE MD [facility] 03-12-2016 pneumococcal polysaccharide vaccine, 23 valent Jonathan [facility] 05-23-2015 influenza, high dose seasonal, preservative-free Jonathan [facility] Work Phone: 02-21-2015 pneumococcal conjuga te vaccine, 13 valent Jonathan [facility] 12-08-2014 pneumococcal polysaccharide vaccine, 23 valent [facility] 05-15-2014 influenza, seasonal, injectable Jonathan y [facility] 06-10-2013 pneumococcal polysaccharide vaccine, [address] BRIONNA VALENTE MD [facility] 05-10-2013 influenza virus vacc ine, unspecified formulation Jonathan [facility] 05-24-2012 influenza virus vacc ine, unspecified formulation Jonathan y [facility] Work Phone: 05-24-2012 zoster vaccine, live Jonathan [facility] Work Phone: 06-02-2011 influenza virus vacc ine, unspecified formulation Jonathan Hawkins [facility] Work Phone: 05-09-2009 influenza virus vacc ine, unspecified formulation Jonathan Hawkins [facility] Work Phone: 04-11-2008 pneumococcal polysaccharide vaccine, 23 valent Jonathan Hawkins [facility] Work Phone: 07-28-2007 tetanus and diphther ia toxoids, adsorbed, preservative free, for adult use (2 Lf of tetanus toxoid and 2 Lf of diphtheria toxoid) Jonathan Hawkins [facility] 06-22-2007 influenza virus vacc ine, unspecified formulation Jonathan Hawkins [facility] 06-25-2006 influenza virus vacc ine, unspecified formulation Jonathan Hawkins [facility] Payers Date Payer Category Payer Medicare [id number] 2024 Medicare [id number] 2023 Self-pay [id number] 2022 Private Health Insurance [id number] 2020 Medicare (Managed Care) PRIMETIM E [id number] 2020 Unknown PRIMETIME PRIMET DEIDRA HMO POS [id number] 2020-Present [phone] [place] [id number] [facility] [id number] 2016 Unknown [id number] 2016 Unknown [id number] 1945 Unknown [id number] [id number] 1945 Unknown [id number] [id number] 1945 Unknown [id number] 2.62 1944 Unknown [id number] [id number] 1944 Unknown [id number] [id number] 1944 Unknown [id number] [id number] 1945 Unknown [id number] [id number] Unknown [id number] [id number] Unknown [id number] [id number] Unknown [id number] Unknown [id number] [id number] Social History Date Type Detail Facility Start: 07-25-2021 End: 07-24-2022 Ex-smoker (finding) [facility] Start: 1945 Sex Assigned At Male A [facility] End: 08-10-1969 History of tobacco use Current smoker [facility] Work Phone: End: 08-10-1969 History of tobacco use Pipe Smoker [facility] Work Phone: Start: 09-02-2011 End: 07-24-2022 Tobacco use and exposure User of smokeless tobacco [facility] Work Phone: History of tobacco use Snuff User [facility] Work Phone: Start: 08-15-2021 End: 11-01-2024 Alcohol intake Current non-drinker of alcohol (finding) [facility] Start: 01-17-2021 History SDOH Stress 1 [facility] Start: 06-22-2007 End: 07-24-2022 Tobacco Comment Chews tobacco 2 boxes per week since . [facility] Start: 1945 Sex Assigned At Not on file [facility] Start: 02-17-2021 End: 01-22-2022 Exposure to SARS-CoV-2 (event) Not sure [facility] Start: 01-17-2021 End: 01-23-2023 History of Social function [facility] Work Phone: Start: 01-17-2021 End: 01-23-2023 Tobacco use panel [facility] Work Phone: Adult Depression Screening Assessment 0 [facility] Work Phone: Do you feel stress - tense, restless, nervous, or anxious, or unable to sleep at night because your mind is troubled all the time - these days [OSQ] Not at all [facility] Work Phone: Start: 05-02-2021 End: 05-02-2021 Tobacco smoking status NHIS Unknown if ever smoked [facility] Start: 12-13-[address] [facility] Start: 12-13-2017 Spouse/ Signif icant Other [facility] Start: 12-13-[address] [facility] Start: 07-04-2019 End: 10-26-2024 Sex Male (finding) [facility] Tobacco Nicotine Use: 47 years ago. [facility] Comment on above: 47 years ago Sexual Orientation [employer] Start: 03-04-2025 Tobacco smoking stat [facility] Current some day smoker [facility] Medical Equipment Procedure Code Equipment Code Equipment Origin al Text Equipment Identifier Dates Test blood sugar(s) one times daily. Dx: Type 2 DM - Controlled E11.9 Insulin: No [id number] Start: 09-09-2017 Comment on above: Test blood sugar(s) one times daily. Dx: Type 2 DM - Controlled E11.9 Insulin: No Functional Status Date Assessment Result Facility 08-24-2018 Are you deaf, or do you have serious difficulty hearing No 08/24/2018 10:25 AM George Parra MD No [facility] 08-24-2018 Are you blind, or do you have serious difficulty seeing, even when wearing glasses No 08/24/2018 10:25 AM George Parra MD No [facility] 08-24-2018 Do you have serious difficulty walking or climbing stairs No 08/24/2018 10:25 AM George Parra MD No [facility] 08-24-2018 Do you have difficul ty dressing or bathing No 08/24/2018 10:25 AM George Parra MD [facility] 08-24-2018 Because of a physica l, mental, or emotional condition, do you have difficulty doing errands alone such as visiting a physician's office or shopping No 08/24/2018 10:25 AM George Parra MD [facility] Mental Status Date Assessment Result Facility 03-04-2025 Cognitive function Level Of Cons ciousness Awake;Alert;Appropriate;Fol lows Commands [facility] Work Phone: 08-24-2018 Because of a physica l, mental, or emotional condition, do you have serious difficulty concentrating, remembering, or making decisions No 08/24/2018 10:25 AM George Parra MD No [facility] Clinical Notes 01-29-2019 to 07-26-2025 Note Date & Type Note Facility 03-04-2025 Discharge summary [facility] 03-04-2025 Discharge summary Note Date/Time March 04, 2025 8:32pm [facility] Medical Records Department [address] [place] [address] Emergency Department Summary 03/04/25 MR#: [id number] Acct: [id number] Name: BESSY VALVERDE Rep #:[id number] : 1945 79 From: Nash Carey PCP: Dr. George Mata MD Status:R EG ER Location: ED ADDENDUM by Dr. Nash Orosco DO on 03/04/25 at 2032 At 2030 patient was noted to be in ED for 6 hours after initial acceptance at outside facility. Given this he was a admitted here to undergo evaluation untilhe can be transferred. Discussed with Dr. Donaldson excepted patient to [facility]. 03/04/252031<Electronically signed by Nash Orosco DO> Cosigner Signature (if applicable): cc: Dr. George Mata MD ~* Signed HPI History of Present Illness Chief Complaint: Edema PFSH PFSH Medical History Wears hearing aid Wears glasses Wears dentures Anxiety History of steroid therapy Diabetes Arthritis High cholesterol Back pain Syncope History of IBS Gastric reflux Former smoker Asthma COPD (chronic obstructive pulmonary disease) Hoarseness Shortness of breath on exertion History of pain when walking History of echocardiogram History of stress test Hypertension Cardiology follow-up encounter History of CHF (congestive heart failure) History of heart attack History of atrial fibrillation Hx of fracture of ankle Hx of cardiac pacemaker Home Medications ?Medication ?Instructions ?Recorded ?Last Taken ?Type albuterol sulfate 90 mcg/actuation 90 mcg IH Q4H PRN P RN Sob &/Or 02/16/17 02/15/17 History breath activated powder inhaler Wheezing (ProAir RespiClick) aspirin 81 mg chewable tablet 81 mg PO DAILY@0800 BLOD THINNER 02/16/17 04/01/17 History fluticasone 250 mcg-salmeterol 50 1 puff inhalation BI D ASTHMA/COPD 02/16/17 02/16/17 History mcg/dose blistr powdr for inhalation (Advair Diskus) nitroglycerin 0.4 mg sublingual 0.4 mg sublingual PRN PRN CHEST 02/16/17 Unknown History tablet (Nitrostat) PAIN pantoprazole 20 mg tablet,delayed 20 mg PO DAILY ACID REFLUX 02/16/17 05/06/21 05:00 History release smtxjntfc-zjmnmfghb-yfypsjug-scop 16.2 mg PO Q4H PRN P RN Diarrhea 02/16/17 Unknown History 16.2 mg-0.1037 mg-0.0194 mg tablet () warfarin 5 mg tablet (Coumadin) 2.5 mg PO SUTUWETHSA A FIB 02/16/17 03/30/17 History atorvastatin 40 mg tablet 40 mg PO QHS HIGH CHOLESTERO L 12/12/17 Unknown History bumetanide 1 mg tablet 1 mg PO QODAY 05/02/21 Unkno wn History sacubitril 24 mg-valsartan 26 mg 0.5 tab PO DAILY 04/1105/06/21 05:00 History tablet (Entresto) sacubitril 24 mg-valsartan 26 mg 1 tab PO QHS 05/02/21 Unknown History tablet (Entresto) warfarin 5 mg tablet 5 mg PO MOFR 05/02/21 Unknow n History ciprofloxacin HCl 250 mg tablet 250 mg PO BID 03/04/25 Unknown History metoprolol succinate 25 mg 25 mg PO DAILY 03/04/25 Unk nown History tablet,extended release 24 hr Allergy/AdvReac Type Severity Reaction Status Date / Time No Known Allergies Allergy Verified 03/04/25 11:20 Family History no significant family his Surgical History Hx of aortic valve replacement History of cardiac catheterization Hx of appendectomy Hx of heart artery stent Hx of mitral valve replacement History of quadruple bypass Hx of colonoscopy History of esophagogastroduodenoscopy (EGD) Social History Smoking Status: Current some day smoker tobacco type: cigarettes and smokeless tobacco substance use type: does not use EXAM Physical Exam Const Vital Signs: 03/04/25 11:17 03/04/25 11:28 03/04/25 12:10 Temperature 97.7 F L Temperature Source Oral Pulse Rate 70 Respiratory Rate 18 Respiratory Effort Normal Short of Breath Respiratory Pattern Normal Blood Pressure 111/85 H Blood Pressure Mean 93 Pulse Ox 99 Oxygen Delivery Method Room Air Room Air 03/04/25 13:17 03/04/25 14:59 03/04/25 15:00 Temperature Temperature Source Pulse Rate 69 70 71 Respiratory Rate 16 15 Respiratory Effort Respiratory Pattern Blood Pressure 106/69 115/73 Blood Pressure Mean 81 87 Pulse Ox 98 99 Oxygen Delivery Method Room Air Room Air 03/04/25 15:00 03/04/25 15:15 03/04/25 15:30 Temperature Temperature Source Pulse Rate 70 72 70 Respiratory Rate 15 14 12 Respiratory Effort Respiratory Pattern Blood Pressure 115/73 114/72 107/78 Blood Pressure Mean 86 86 88 Pulse Ox Oxygen Delivery Method 03/04/25 15:45 03/04/25 16:00 03/04/25 16:15 Temperature Temperature Source Pulse Rate 71 69 72 Respiratory Rate 15 17 16 Respiratory Effort Respiratory Pattern Blood Pressure 109/71 109/77 112/88 H Blood Pressure Mean 84 88 96 Pulse Ox Oxygen Delivery Method 03/04/25 16:30 03/04/25 16:45 03/04/25 17:00 Temperature Temperature Source Pulse Rate 66 70 72 Respiratory Rate 20 H 18 16 Respiratory Effort Respiratory Pattern Blood Pressure 122/76 H 107/73 110/77 Blood Pressure Mean 90 84 87 Pulse Ox Oxygen Delivery Method [facility] MDM MDM Narrative Medical decision making narrative: HISTORY OF PRESENT ILLNESS: Chief complaint: Edema 79-year-old male history of A-fib (on warfarin), CAD, hyperlipidemia, cardiomyopathy presents with bilateral leg swelling. Notes recent pacemaker defibrillator placement. Denies history of blood clots. No shortness of breathslightly better after pacemaker replacement defibrillator placement. Notes he has gained approximately 2 to 3 pounds the last several days. Notes he initiated his home Bumex treatment which is 1 mg daily for weight gain greater than 3 pounds in 3 days. Notes he took 2 doses yesterday but he still has swelling. Denies chest pain. Denies syncope. REVIEW OF SYSTEMS: Pertinent positives: Leg swelling Pertinent negatives: Worsening dyspnea, cough, fever, chills, hemoptysis PHYSICAL EXAM: Nursing triage notes reviewed, Vital signs reviewed Constitutional: please see mdm HENT: MMM Eyes: Pupils equal round and reactive to light, Extraocular muscles intact Neck: No stridor, no JVD, full neck ROM Lungs: Clear to auscultation, No wheezing or rales. No increased work of breathing, no conversational dyspnea, no accessory muscle use, no nasal flaring. No respiratory distress noted Heart: Regular rate and rhythm, No murmurs, No rubs and No gallops, 2+ distal pulses (radial, femoral, posterior tibial) in all extremities Abdomen: Soft, there is no tenderness, rigidity, rebound or guarding, no obviousperitoneal signs, no palpable pulsatile abdominal masses, no auscultated abdominal bruit : No CVAT Extremities: 2-3+ bilateral lower extremity edema Neuro: No new focal neurological deficits, cranial nerves II through XII intact,5/5 strength in all present extremities. Intact sensation to light touch in all present extremities, 2+ reflexes bilateral patella tendons. Skin: No rash or lesions noted MEDICAL DECISION MAKING: Chief Complaint: please see HPI External records reviewed: Reviewed paperwork from [facility] for recent ICD placement and pacemaker replacement. Factors affecting care: As per [facility] Social determinants of health: none History obtained from others: and child Consults: cardiology at [facility] spoke with Dr. Lacy agreed to admit to CC stepdown [facility] Narrative: The patient was initially hemodynamically stable, afebrile and nontoxic-appearing. Exam was 2-3+ bilateral lower extremity edema I considered the following differential diagnosis: CHF exacerbation, DVT, pneumonia, ACS, arrhythmia, anemia I obtained a broad lab and imaging workup to further determine if the patient was suffering from a life-threatening etiology. ALL IMAGES (IF OBTAINED) HAVE BEEN PERSONALLY REVIEWED AND INTERPRETED BY MYSELF. EKG with ventricular paced rhythm, severe right axis deviation, prolonged QTc at523, no obvious ischemic changes. Similar morphology compared to prior EKG from12/2017 INR subtherapeutic CBC with no leukocytosis, mild worsening anemia with a hemoglobin 11.1 (baselineof 13), noted thrombocytopenia that is mild and improving from baseline BMP without significant electrolyte abnormalities, no evidence of metabolic acidosis or endorgan hypoperfusion with a normal bicarb and anion gap. There isslight renal insufficiency with a creatinine of 1.75 (baseline of 1.4) Initial troponin elevated consistent with myocardial ischemia, given no chest pain or significant EKG changes likely demand ischemia secondary versus postop or perioperative troponin leak from recent pacemaker placement BNP elevated consistent with volume overload Chest x-ray was read and reviewed by myself shows cardiomegaly, pacemaker Given signs of volume overload, signs of type II NSTEMI, symptoms of shortness of breath, recent surgery and multiple medical comorbidities I doubt the patientbe best served with hospitalization for IV diuresis and close cardiopulmonary, renal, electrolyte and volume monitoring. Discussed with [facility] who accepted the patient for admission. 1800 Awaiting transfer. The patient and/or family, caregivers express understanding. The patient and/orfamily, caregivers agrees with the plan. Shared decision making: I will have a discussion with the patient and or visitors regarding risk/benefits of further testing or admission. They will be made aware of of the risk/benefits inherent in this decision they will be given the opportunity to voice understanding. Total critical care time today provided was at least 0 minutes. This excludes separately billable procedures. Critical care time (if documented) is secondary to the patient having high probability of clinically significant/life threatening deterioration in the patient's condition which required my urgent intervention. Impression: 1. Dyspnea 2. Lower extremity edema 3. CHF exacerbation 4. NSTEMI Dispo: Transfer This note was generated with Quickflix dictation software. It may contain incorrectwords, spelling, and punctuation that were not noted in review of the chart prior to signing. Lab Data Labs: Laboratory Results - last 24 hr 03/04/25 03/04/25 03/04/25 11:30 13:58 15:40 WBC 7.7 RBC 3.96 L Hgb 11.1 L Hct 34.9 L MCV 88.1 MCH 28.0 MCHC 31.8 L RDW Std Deviation 54.9 H RDW Coeff of Drew 17.2 H Plt Count 140 L MPV 10.5 Immature Gran % (Auto) 0.300 Neut % (Auto) 77.0 H Lymph % (Auto) 9.0 L Elk % (Auto) 11.3 H Eos % (Auto) 1.9 Baso % (Auto) 0.5 Absolute Neuts (auto) 5.9 Absolute Lymphs (auto) 0.69 L Nucleated RBC % 0 PT 19.4 H INR 1.6 Sodium 139 Potassium 3.7 Chloride 100 Carbon Dioxide 24.0 Anion Gap 15 BUN 41 H Creatinine 1.75 H Estim Creat Clear Calc 33.67 L Est GFR (MDRD) Non-Af 39 L BUN/Creatinine Ratio 23.2 H Glucose 118 H Calcium 9.5 Magnesium 2.4 H Troponin T High Sens 122 H* Troponin T Hi Sens 2 Hr 99 H* Troponin T Hi Sens 4Hr 101 H* NT pro BNP II 2790 H Radiography Diagnostic Testing: Clinical Impression(s) from Imaging Studies Chest X-Ray 03/04/25 12:10 IMPRESSION: Pulmonary findings as above. Reading Location: [facility] Discharge Plan Triage Chief Complaint: Edema ED Provider: Nash Orosco Dx/Rx/DC Orders Prescriptions: No Action fluticasone propion-salmeterol [Advair Diskus] 1 PUFF inhaler 1 puff inhalation BID Patient Comments: SOB pantoprazole 20 MG tablet,delayed release (DR/EC) 20 mg PO DAILY Patient Comments: GERD warfarin [Coumadin] 5 MG tablet 2.5 mg PO SUTUWETHSA Patient Comments: ANTICOAGULANT nitroglycerin [Nitrostat] 0.4 MG tablet, sublingual 0.4 mg sublingual PRN PRN (Reason: CHEST PAIN) Patient Comments: CHEST PAIN aspirin 81 MG tablet,chewable 81 mg PO DAILY@0800 Patient Comments: [facility] jbmgpqxao-fnpxxm-zdjbcoyb-scop [] 16.2 MG tablet 16.2 mg PO Q4H PRN PRN (Reason: Diarrhea) Patient Comments: DIARRHEA ProAir RespiClick 90 MCG aerosol powdr breath activated 90 mcg IH Q4H PRN PRN (Reason: Sob &/Or Wheezing) Patient Comments: SOB atorvastatin 40 MG tablet 40 mg PO QHS warfarin 5 mg Tablet 5 mg PO MOFR bumetanide 1 mg Tablet 1 mg PO QODAY Entresto 24-26 mg Tablet 0.5 tab PO DAILY Entresto 24-26 mg Tablet 1 tab PO QHS ciprofloxacin HCl 250 mg tablet 250 mg PO BID metoprolol succinate 25 mg tablet extended release 24 hr 25 mg PO DAILY Primary Care Provider: George Mata Referrals: George Mata MD [Primary Care Provider] - Print Language: Serbian What to do if you have Problems For any increased pain, shortness of breath, bleeding, nausea or vomiting, chestpain, or any unexpected problems, contact your Primary Care Provider. Call [facility] ([phone]) or report to the closest Emergency Room. Call 911 if necessary. 03/04/25 1804 <Electronically signed by Nash Orosco DO> Cosigner Signature (if applicable): CC: Dr. George Mata MD ~ Signed [facility] Work Phone: 1(215) 910-967407-26-2025 Radiology Diagnostic study note [facility] [address] [place] [address] Chest 1 View (Portable) MR#: [id number] Acct: [id number] Name: BESSY VALVERDE Rep #: [id number] : 1945 M 79 From: Mayo Bautista MD PCP: Dr. George Mata MD Status: R EG ER Study:Chest 1 View (Portable) Date of Exam: 03/04/25 Exam# [id number] Ordering Dr: Reid Orosco DO PROCEDURE: CHEST 1 VIEW (PORTABLE) 03/04/2025 REASON FOR EXAM: CHEST PAIN TECHNIQUE: Frontal view of the chest. COMPARISON: None. FINDINGS: The heart is enlarged. Prior sternotomy. Left chest AICD. Bilateral reticularopacities and consolidative opacities of the lung bases which may represent edema, infection, chronic interstitial changes, or mixture thereof. Small right pleural effusion. RAD/Chest 1 View (Portable) IMPRESSION: Pulmonary findings as above. Reading Location: [facility] CC: Dr. Nash Orosco DO; Dr. George Mata MD ~ Construction Project Engineer: Signed [facility]07-22-2025 Telephone encounter Note* Telephone Encounter - Jonathan Hawkins [facility] - 02/28/2025 8:12 AM EDT [facility] Ambulatory Pharmacy Anticoagulation Clinic Anticoagulation Episode Summary Anticoagulation Care Providers Provider Role Specialty Phone number George Mata MD [facility] Internal Medicine [phone] Bessy Valverde is a 79 year old [...] Pharmacy Anticoagulation Clinic Pharmacy Anticoagulation Clinic Pager: [phone]. [facility]07-22-2025 Miscellaneous Notes* Telephone Encounter - Jonathan Hawkins RPh - 02/28/2025 8:12 AM EDT [facility] Ambulatory Pharmacy Anticoagulation Clinic Anticoagulation Episode Summary Anticoagulation Care Providers Provider Role Specialty Phone number MataGeorge gerber MD [facility] Internal Medicine [phone] Bessy Valverde is a 79 year old [...] Pharmacy Anticoagulation Clinic Pharmacy Anticoagulation Clinic Pager: [phone]. [facility] Hospital Discharge instructions Patient Education 02/24/2025 13:53:11 General Anesthesia, [...] have someone help care for you until youare awake and alert. Rest as needed. Do [...] what activities are safe for you. Take vzyd-nrm-jlugnak and prescription medicines only as told by [...] 11/02/2001 Document Revised: 07/30/2018 Document Reviewed: 03/12/2018 [employer] Patient Education 2020 [employer] 02/24/2025 13:53:01 3- Pacemaker/ICD generator replacement (05/2018) [...] Document Reviewed: 07/28/2014 ExitCare Patient Information 2015 [employer], [employer]. This information is not intended to replace advicegiven to you by your health care provider. Make sure you discuss any questions you have with your health care provider. Follow Up Care 01/16/2025 08:38:31 With:VERONIQUE TOUSSAINT MD Address: [address] [place] [address] [place] [address]- [phone] When:03/09/2025 13:00:00 Comments:This is your incision check in the Device Clinic. With:VERONIQUE TOUSSAINT MD Address: [address] [facility] [address] [place] [address]- [phone] When:06/01/2025 13:30:00 Comments:This is your hospital follow up in the Device Clinic. [facility] 07-18-2025 Summary of episode note Discharge Instructions Thank you for allowing [facility] to assist you with your healthcare needs. The following is importantdischarge information regarding your hospital visit. Your Care Team GEORGE MATA MD What to do next Scheduled Follow-Up Appointments Appointment Type When With Where Contact Information StatusCV Incision Check 03/09/2025 01:00 PM EDT [facility] Confirmed CV Office Procedure ICD 06/01/2025 01:30 PM EDT [facility] Confirmed CV OV 06/06/2025 02:00 PM EDT JAVIER GANT [facility] Confirmed CV Remote Procedure HM 09/04/2025 05:15 PM EST [facility] Confirmed Follow Up Appointments Follow Up with VERONIQUE TOUSSAINT MD When:03/09/2025 01:00 PM EDT Where:[address] [place] [address]- [phone] Additional Information: This is your incision check in the Device Clinic. Follow Up with VERONIQUE TOUSSAINT MD When:06/01/2025 01:30 PM EDT Where:[address] [facility] [address] [place] [address]- [phone] Additional Information: This is your hospital follow [...] 12 hours Duration: 10 Days Pickup at [facility] Unchanged acetaminophen (Tylenol 325 mg [...] mouth Every Thursday and Thursday Pharmacy Information [facility]: [address] [place] [address] [phone] Please take this list to your next [...] have someone help care for you until youare awake and alert. Rest as needed. Do [...] what activities are safe for you. Take zppb-bkc-djtzbhn and prescription medicines only as told by [...] 11/02/2001 Document Revised: 07/30/2018 Document Reviewed: 03/12/2018 [employer] Patient Education 2020 [employer]. PACEMAKER/ICD GENERATOR REPLACEMENT Discharge Instructions WOUND CARE [...] Stretch the dressing to break the adhesive sealand gently pull it off. ? If the [...] Document Reviewed: 07/28/2014 ExitCare Patient Information 2015 [employer] [facility]. This information is not intended to replace advicegiven to you by your health care provider. Make sure you discuss any questions you have with your health care provider. Additional Information VACCINATE! IT SAVES LIVES! Members of the community who have not yet received the COVID-19 vaccine and would like to receive it can visit one of [facility] vaccine clinics. There are many vaccine clinic locations within the [facility]. For locations and available times, please visit [email or web address] It is important to note that some COVID mobile vaccine clinics are held outdoors and may be canceled in rainy or stormy conditions. To learn more about pediatric vaccinations (ages 5-11), we invite you to visit the [facility] webpage. [email or web address] learn more about the COVID-19 vaccine, we invite you to visit the CDC website for a list of frequently asked questions.https://www.cdc.gov/coronavirus/2019-ncov/vaccines/faq.html [email or web address] Patient Portal Access Instructions: Stay connected with your healthcare team and access your personal medical information anytime with the [email or web address] Patient Portal. Please follow the directions below to create your [facility] account: 1.Access the email account you provided upon registration to the hospital/physician office.2.Look for an invitation email from [facility].3.Open the email and access the invitation link: AcceptInvitation to [facility].4.Fill in the required mitchell to create your account. To access your account, visit [email or web address]. Click the blue button labeled Access Patient [...] who you will allowto register on the [facility] Patient Portal for access to your information. You can also access the [facility] Patient Portal on the [facility] charanjit. Simply click on Patient Portal and then log into your account. If you would like to receive a full copy of your medical records, please contact the [facility] Medical Records Department by calling [phone], Thursday through Thursday between 8 a.m. and [...] Call your local pharmacy or go to http://bit.ly/7J3Rp4h to find one close to you.3.Make use of household items: Use cat litter or old coffee grounds to dispose medications if other options arenot available. Mix your drugs with these household products, seal them in an airtight container andthrow it into the garbage. Call [facility]: [phone] to be sure your drugs can be [...] that I should contact my d octor. 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 Hospital Course . 79-year-old male with past medical history for atrial fibrillation. He underwent successful DEPOSIT CLERK-DICD generator replacement tolerating the procedure well. A [...] Nerves II-XII grossly intact, no tics, normal sensationto pressure and light touch Code Status No [...] 6 hours as neededas needed for indigestion. bumetanide (bumetanide 1 mg [...] MD When:03/09/2025 01:00 PM EDT Where:[address] [place] [address]- [phone] Additional Information: This is your incision check in the Device Clinic. Follow Up with VERONIQUE TOUSSAINT MD When:06/01/2025 01:30 PM EDT Where:[address] [place] [address]- [phone] Additional Information: This is your hospital follow up in the Device Clinic. Follow Up Appointments No qualifying data available. Follow Up Labs/Studies Discharge Labs No Follow-up Labs Discharge Studies No Follow-up Studies Discharge Diet No qualifying data available. Discharge Activity No qualifying data available. Condition on Discharge Good Discharge Disposition Home Digitally Signed by VERONIQUE TOUSSAINT MD on 02/24/2025 01:46 PM [facility] [id number] Note* Exam Date Time Procedure Performing Provider Status 02/24/25 1:38 PM XR Chest 1 View HUNTER COLLIER DO; [facility] (Verified) [id number] ORIGINAL EXAMINATION: ONE XRAY VIEW OF THE [...] PM Ordering Provider: VERONIQUE TOUSSAINT [facility] [id number] Anesthesiology Consult note Patient: BESSY VALVERDE Age: [...] RASHEEDA BEE DO on 02/24/2025 12:41 PM [facility] [id number] Note* Exam Date Time Procedure Performing Provider Status 02/24/25 10:35 AM ICD Generator Change VERONIQUE TOUSSAINT MD; Auth (Verified) [facility] [id number] Anesthesiology Consult note Patient: BESSY VALVERDE Age: [...] Medical SEVERE AORTIC STENOSIS / SNOMED CT 659486349 / Confirmed Aortic stenosis / SNOMED CT 592275319 / Confirmed Asthma / SNOMED CT 836086271 / Confirmed AF (atrial fibrillation) / SNOMED CT 81263901 / Confirmed ICD (implantable cardioverter-defibrillator) in place / SNOMED CT 7985725521 / Confirmed CAD - Coronary artery disease / SNOMED CT 5739590953 / Confirmed BIVENTRICULAR ICD (IMPLANTABLE CARDIOVERTER-DEFIBRILLATOR) IN PLACE / SNOMED CT 8893176824 / Confirmed Cardiomyopathy / SNOMED CT 957992244 / Confirmed ASTHMA / SNOMED CT 182520177 / Confirmed Atrial fibrillation / SNOMED CT 5414492630 / Confirmed CKD (chronic kidney disease) / SNOMED CT 8288998493 / Confirmed CHRONIC SYSTOLIC CHF (CONGESTIVE HEART FAILURE) / SNOMED CT 8132103514 / Confirmed CAD IN [place] ARTERY / SNOMED CT 0931086393 / Confirmed Wears dentures / SNOMED CT 568516883 / Confirmed Diabetes mellitus type 2 / SNOMED CT 640546647 / Confirmed Diarrhea / SNOMED CT 911769693 / Confirmed Dyspnea on exertion / SNOMED CT 151108881 / Confirmed PULMONARY FIBROSIS / SNOMED CT 18285918 / Confirmed Acid reflux / SNOMED CT 736443463 / Confirmed Glasses / SNOMED CT 4957593288 / Confirmed Gout / SNOMED CT 762944763 / Confirmed H/O valvular heart disease / SNOMED CT 615272569 / Confirmed Hard of hearing / SNOMED CT 898839233 / Confirmed Headache / SNOMED CT 20128042 / Confirmed Hearing aid / SNOMED CT 49521611 / Confirmed VALVULAR HEART DISEASE / SNOMED CT 0598498 / Confirmed High blood pressure / SNOMED CT 82205212 / Confirmed History of coronary artery bypass graft / SNOMED CT 1565281597 / Confirmed History of mitral valve replacement / SNOMED CT 1687345267 / Confirmed STATUS POST DEVICE CLOSURE OF ASD / SNOMED CT 5732523166 / Confirmed Hypercholesterolemia / SNOMED CT 24800444 / Confirmed Hypertension / SNOMED CT 8797050992 / Confirmed HOCM (HYPERTROPHIC OBSTRUCTIVE CARDIOMYOPATHY) / SNOMED CT 81608920 / Confirmed Hypokalemia / SNOMED CT 99019181 / Confirmed Hyponatremia / SNOMED CT 644095402 / Confirmed Acute kidney injury / SNOMED CT 99588550 / Confirmed Irritable bowel syndrome / SNOMED CT 64244026 / Confirmed Mitral regurgitation / SNOMED CT 55349965 / Confirmed INCREASED BMI (Renamed from OVERWEIGHT) / SNOMED CT 585181277 / Confirmed VT (Renamed from PAROXYSMAL VENTRICULAR TACHYCARDIA) / SNOMED CT 951312522 / Confirmed Preop cardiovascular exam / SNOMED CT 657022508 / Confirmed Peripheral artery disease / SNOMED CT 2087567897 / Confirmed PERMANENT ATRIAL FIBRILLATION / SNOMED CT 4347665373 / Confirmed Short of breath on exertion / SNOMED CT 5657363311 / Confirmed CURRENT TOBACCO USE / SNOMED CT 855377292 / Confirmed VT (ventricular tachycardia) / SNOMED CT 30999022 / Confirmed Resolved: Heart attack / SNOMED CT 98655269 Resolved: Hx of ventricular tachycardia / SNOMED CT 3467338581 Resolved: Hypotension / SNOMED CT 864284324 Resolved: Panic attack / SNOMED CT 602959183 Canceled: 04/29 CABG x 4 using bilateral CHRISTOPHER's and Left SVG by Dr. Magdaleno Canceled: Severe aortic stenosis c/ TAVR / SNOMED CT 615957175 Canceled: Automatic cardiac defibrillator / SNOMED CT 606960509 Canceled: CABG - Coronary artery bypass graft / SNOMED CT 102053799 Canceled: Cardiac catheterization / SNOMED CT 24773002 Canceled: Cardiac catheterization / SNOMED CT 82270660 Canceled: Cardiac catheterization / SNOMED CT 28497190 Canceled: Presence of cardiac resynchronization therapy defibrillator (DEPOSIT CLERK-D) / SNOMED CT 4255243596 Canceled: Artificial pacemaker / SNOMED CT 6336558305 Canceled: CHF (congestive heart failure) / SNOMED CT 59104192 Canceled: CAD IN [place] / SNOMED CT 0459422505 Canceled: Pulmonary fibrosis / SNOMED CT 78744588 Canceled: History of asthma / SNOMED CT 043604370 Canceled: History of atrial fibrillation / SNOMED CT 786973107 Canceled: H/O cardiomyopathy / SNOMED CT 173095912 Canceled: Heart failure / SNOMED CT 545760254 Canceled: Hx: CAD, previous stents, HTN Canceled: MVR - Mitral valve repair / SNOMED CT 3255061882 Canceled: Hydrops / SNOMED CT 519944235 Canceled: Current tobacco use / SNOMED CT 230182439, Active Problems (67) Acid reflux Acute kidney injury AF (atrial fibrillation) AICD (automatic cardioverter/defibrillator) present Anticoagulated on Coumadin Anxiety Aortic stenosis Arthritis Asthma ASTHMA At risk for falls Atrial fibrillation Benign colon polyp Bilateral lower extremity edema BIVENTRICULAR ICD (IMPLANTABLE CARDIOVERTER-DEFIBRILLATOR) IN PLACE CAD - Coronary artery disease CAD IN [place] Cancer of skin of face Cardiomyopathy [...] Past Medical History: Active High blood pressure (39721265) Hypercholesterolemia (62103432) Asthma (082550409) Short of breath on exertion (1008081109) CAD - Coronary artery disease (8149964184) Mitral regurgitation (82994463) H/O valvular heart disease (039393904) VT (ventricular tachycardia) (85913669) Cardiomyopathy (050232782) Acid reflux (532501587) Diarrhea (313271622) Comments: 03/09/2019 EDT 13:28 EDT - Jo-AnnKurtis montague Ramona occasional Irritable bowel syndrome (08195586) Headache (41182864) Glasses (0596518729) Hard of hearing (695526624) Hearing aid (38532912) Comments: 04/09/2018 EDT 9:45 ROSAT Veronica CancholaJo-AnnKurtis montague Ramona bilat Wears dentures (866245876) Comments: 04/09/2018 EDT 9:45 PORFIRIO Cancholaclari Kurtis Greene full Diabetes mellitus type 2 (358073033) Comments: 04/09/2018 EDT 9:46 ROSAT Veronica CancholaJo-AnnKurtis montague Ramona diet controlled History of coronary artery bypass graft (2218248364) Peripheral artery disease (9423262763) History of mitral valve replacement (7273254996) Resolved Heart attack (38649697): Onset in 1995 at 50 years. Resolved. Comments: 06/10/2013 EDT 10:09 ILAN CAM MD currently active without ischemic sx or limitations. Presents for placement of AICD, Hx of ventricular tachycardia (5965985513): Resolved. Hypotension (909855320): Resolved. Panic attack (214237589): Resolved. Family History: Diabetes mellitus Mother Heart disease Brother Sister Cancer Mother HTN - Hypertension Mother Father Sister Procedure history: Echocardiogram (3922605312) on 11/18/2024 at 78 Years. Comments: 12/01/2024 [...] atrial pressure is 3 mm Hg. Echocardiogram (8691540890) on 12/16/2022 at 76 Years. Comments: 12/23/2022 [...] atrial pressure is8 mm Hg. Cardiac catheterization (37344097) on 10/24/2021 at 75 Years. Comments: 12/25/2021 [...] pressures. Will increase diuretic dose. Cardiac catheterization (32950715) on 07/29/2021 at 75 Years. Comments: 09/09/2021 17:06 Mattie Don MA (ABR-OE) Procedures performed: Left coronary angiography. Right coronary angiography. Saphenous vein graft angiography. ORTIZ graft angiography. SUMMARY: 1. LAD: Proximal vessel lesion: There is a 100% chronic total occlusion. 2. Right posterior descending: Proximal vessel lesion: There is a 90% stenosis. IMPRESSIONS: Severe [place] CAD with patent ORTIZ to LAD / D1 and SVG to PDA. RECOMMENDATIONS: Treatment of VT. Transcatheter mitral valve implantation/replacement (TMVI) with prosthetic valve; percutaneous approach, including transseptal puncture, when performed (0483T) on 04/13/2019 at 73 Years. Comments: 04/13/2019 21:08 QUE Marie Attempted - Septal occluder placed PTCA - Percutaneous transluminal coronary angioplasty (4654794525) on 02/12/2018 at 72 Years. Comments: 04/09/2018 9:39 QUE Phan x1 stent TAVR - Transcatheter aortic valve replacement ([id number]) in 2018 at 72 Years. ICD - Internal cardiac defibrillator procedure (973969402) in 2015 at 70 Years. Comments: 04/09/2018 9:40 QUE Phan lead change Cardiac catheterization (33829932) in the month of 09/2015 at 69 Years. Comments: 10/29/2015 12:38 QUE Lizarraga no change Mitral valve prosthesis (33189089) on 05/17/2013 at 67 Years. Comments: 05/17/2013 18:37 QUE Feldman resternotomy, mitral valve replacement, insertion IABP, insertion TPW Insertion of intra-aortic balloon pump (38535016) on 05/17/2013 at 67 Years. Comments: 05/17/2013 23:25 QUE Feldman removal of L atrial appendage, insertion TPW Implantation of automatic cardiac defibrillator (389862675) in 2012 at 67 Years. Comments: 10/29/2015 12:21 QUE Lizarraga upgraded to DEPOSIT CLERK-d Balloon angioplasty of coronary artery (747297952) in 2008 at 63 Years. Comments: 10/04/2015 17:18 QUE Marte stent placement CABG - Coronary artery bypass graft (616498850) in 2006 at 61 Years. Comments: 04/09/2018 9:39 QUE Phan x4 Ankle (642412785) in 1997 at 52 Years. Comments: 10/04/2015 17:19 QUE Marte surgery Appendectomy (740717954) in 1993 at 48 Years. Amputation finger ([id number]) in 1970 at 25 Years. Comments: 03/09/2019 13:24 QUE Phan correction: left 3rd 10/04/2015 17:19 QUE Marte left second Colonoscopy (259189876). Esophagogastroduodenoscopy (034247087). Social History: Social & Psychosocial Habits Alcohol [...] Documentation reviewed: Current records. Assessment and Plan [place] Society [employer] Anesthesiologists (ASA) physical status classification: [...] RASHEEDA BEE DO on 02/24/2025 08:22 AM [id number] Telephone encounter Note* Telephone Encounter - Jonathan Hawkins [facility] - 02/21/2025 7:54 AM EDT [facility] Ambulatory Pharmacy Anticoagulation Clinic Anticoagulation Episode Summary Anticoagulation Care Providers Provider Role Specialty Phone number George Mata MD Responsible Internal Medicine [phone] Bessy Valverde is a 79 year old [...] Pharmacy Anticoagulation Clinic Pharmacy Anticoagulation Clinic Pager: [phone]. [facility]07-15-2025 Miscellaneous Notes* Telephone Encounter - Jonathan Hawkins RPh - 02/21/2025 7:54 AM EDT [facility] Ambulatory Pharmacy Anticoagulation Clinic Anticoagulation Episode Summary Anticoagulation Care Providers Provider Role Specialty Phone number MataGeorge morris MD Responsible Internal Medicine [phone] Bessy Valverde is a 79 year old [...] Pharmacy Anticoagulation Clinic Pharmacy Anticoagulation Clinic Pager: [phone]. documented in this encounterWay[facility]07-[facility]-2025 Telephone encounter Note * Telephone Encounter - Jonathan Hawkins RPh - 02/14/2025 10:25 AM EDT [facility] Ambulatory Pharmacy Anticoagulation Clinic Anticoagulation Episode Summary Anticoagulation Care Providers Provider Role Specialty Phone number George Mata MD [facility] Internal Medicine [phone] Bessy Valverde is a 79 year old [...] Pharmacy Anticoagulation Clinic Pharmacy Anticoagulation Clinic Pager: [phone]. [facility]07-08-2025 Miscellaneous Notes* Telephone Encounter - Jonathan Hawkins RPh - 02/14/2025 10:25 AM EDT [facility] Ambulatory Pharmacy Anticoagulation Clinic Anticoagulation Episode Summary Anticoagulation Care Providers Provider Role Specialty Phone number Geogre Mata MD Responsible Internal Medicine [phone] Bessy Valverde is a 79 year old [...] Pharmacy Anticoagulation Clinic Pharmacy Anticoagulation Clinic Pager: [phone]. documented in this encounterWay[facility]07-[facility]-2025 Telephone encounter Note * Telephone Encounter - Jonathan Hawkins RPh - 02/07/2025 2:38 PM EDT [facility] Ambulatory Pharmacy Anticoagulation Clinic Anticoagulation Episode Summary Anticoagulation Care Providers Provider Role Specialty Phone number George Mata MD [facility] Internal Medicine [phone] Bessy Valverde is a 79 year old [...] Pharmacy Anticoagulation Clinic Pharmacy Anticoagulation Clinic Pager: [phone]. [facility]07-01-2025 Miscellaneous Notes* Telephone Encounter - Jonathan Hawkins RPh - 02/07/2025 2:38 PM EDT [facility] Ambulatory Pharmacy Anticoagulation Clinic Anticoagulation Episode Summary Anticoagulation Care Providers Provider Role Specialty Phone number MataGeorge morris MD [facility] Internal Medicine [phone] Bessy Valverde is a 79 year old [...] Pharmacy Anticoagulation Clinic Pharmacy Anticoagulation Clinic Pager: [phone]. documented in this encounterWay[facility]06-24-2025 Telephone encounter Note * Telephone Encounter - Jonathan Hawkins RPh - 01/31/2025 8:08 AM EDT [facility] Ambulatory Pharmacy Anticoagulation Clinic Anticoagulation Episode Summary Anticoagulation Care Providers Provider Role Specialty Phone number George Mata MD Responsible Internal Medicine [phone] Bessy Valverde is a 79 year old [...] Pharmacy Anticoagulation Clinic Pharmacy Anticoagulation Clinic Pager: [phone]. [facility]06-24-2025 Miscellaneous Notes* Telephone Encounter - Jonathan Hawkins RPh - 01/31/2025 8:08 AM EDT [facility] Ambulatory Pharmacy Anticoagulation Clinic Anticoagulation Episode Summary Anticoagulation Care Providers Provider Role Specialty Phone number George Mata MD [facility] Internal Medicine [phone] Bessy Valverde is a 79 year old [...] Pharmacy Anticoagulation Clinic Pharmacy Anticoagulation Clinic Pager: [phone]. documented in this encounterWay[facility]06-23-2025 Telephone encounter Note * Telephone Encounter [...] come in for appointment. Sandi Denton RN [facility]06-23-2025 Miscellaneous Notes* Telephone Encounter - Sandi [...] appointment. Sandi Denton RN documented in this encounterWay[facility]06-17-2025 Telephone encounter Note * Telephone Encounter - Jonathan Hawkins [facility] - 01/24/2025 8:09 AM EDT [facility] Ambulatory Pharmacy Anticoagulation Clinic Anticoagulation Episode Summary Anticoagulation Care Providers Provider Role Specialty Phone number George Mata MD [facility] Internal Medicine [phone] Bessy Valverde is a 79 year old [...] Pharmacy Anticoagulation Clinic Pharmacy Anticoagulation Clinic Pager: [phone]. [facility]06-17-2025 Miscellaneous Notes* Telephone Encounter - Jonathan Hawkins RPh - 01/24/2025 8:09 AM EDT [facility] Ambulatory Pharmacy Anticoagulation Clinic Anticoagulation Episode Summary Anticoagulation Care Providers Provider Role Specialty Phone number MataGeorge morris MD Responsible Internal Medicine [phone] Bessy Valverde is a 79 year old [...] Pharmacy Anticoagulation Clinic Pharmacy Anticoagulation Clinic Pager: [phone]. documented in this encounterWayne [facility]06-10-2025 Telephone encounter Note * Telephone Encounter - Jonathan Hawkins RPh - 01/17/2025 10:31 AM EDT [facility] Ambulatory Pharmacy Anticoagulation Clinic Anticoagulation Episode Summary Anticoagulation Care Providers Provider Role Specialty Phone number George Mata MD [facility] Internal Medicine [phone] Bessy Valverde is a 79 year old [...] Pharmacy Anticoagulation Clinic Pharmacy Anticoagulation Clinic Pager: [phone]. [facility]06-10-2025 Miscellaneous Notes* Telephone Encounter - Jonathan Hawkins RPh - 01/17/2025 10:31 AM EDT [facility] Ambulatory Pharmacy Anticoagulation Clinic Anticoagulation Episode Summary Anticoagulation Care Providers Provider Role Specialty Phone number George Mata MD [facility] Internal Medicine [phone] Bessy Valverde is a 79 year old [...] missed any doses of warfarin. Jonathan Hawkins [facility] Clinical Pharmacist, Pharmacy Anticoagulation Clinic Pharmacy Anticoagulation Clinic Pager: [phone]. documented in this encounterWay[facility]06-03-2025 Telephone encounter Note * Telephone Encounter - Jonathan Hawkins RPh - 01/10/2025 4:20 PM EDT [facility] Ambulatory Pharmacy Anticoagulation Clinic Anticoagulation Episode Summary Anticoagulation Care Providers Provider Role Specialty Phone number George Mata MD [facility] Internal Medicine [phone] Bessy Valverde is a 79 year old [...] result of 2.3 is therapeutic Was in [facility] 12/31-01/04 for elevated HR and A fib [...] Pharmacy Anticoagulation Clinic Pharmacy Anticoagulation Clinic Pager: [phone]. [facility]06-03-2025 Miscellaneous Notes* Telephone Encounter - Jonathan Hawkins RPh - 01/10/2025 4:20 PM EDT [facility] Ambulatory Pharmacy Anticoagulation Clinic Anticoagulation Episode Summary Anticoagulation Care Providers Provider Role Specialty Phone number George Mata MD [facility] Internal Medicine [phone] Bessy Valverde is a 79 year old [...] result of 2.3 is therapeutic Was in [facility] 12/31-01/04 for elevated HR and A fib [...] Pharmacy Anticoagulation Clinic Pharmacy Anticoagulation Clinic Pager: [phone]. * Telephone Encounter - Jonathan Hawkins RPh - 01/10/2025 4:15 PM EDT Melanie Scruggs HUC MS 01/10/25 4:13 PM Note Pt. called stated pt. INR was 2.3 today. Pt. is having a procedure on 01/12/25. Pt. worriedhis procedure will not happen if his INR not under 2.0. Pt. requestig a return call at [phone] documented in this encounterWayne [facility]06-03-2025 Telephone encounter Note * Telephone Encounter - Jonathan Hawkins RPh - 01/10/2025 4:15 PM EDT Melanie Scruggs HUC MS 01/10/25 4:13 PM Note Pt. called stated pt. INR was 2.3 today. Pt. is having a procedure on 01/12/25. Pt. worriedhis procedure will not happen if his INR not under 2.0. Pt. requestig a return call at [phone] [facility]06-03-2025 Instructions* Patient Instructions* George Mata MD - [...] appointment this with Dr. Lynette Naik in [place] for removalof the skin cancer lesion. - [facility] [place] to assess the device and battery. - [...] updated labs are needed. documented in this encounterWayne Healthcare [facility]06-03-2025 NoteHNO ID: [id number] Author: GEORGE MATA MD Service: ? Author Type: Physician Type: Progress Notes Filed: 01/10/2025 13:17 Note Text: This note was created using nWayriter. Subjective Patient presents with: Hospital F/U Bessy Valverde is a 79 year old male here with . Recording using ProjectSpeaker software for draft documentation of the visit was discussed with the patient/authorized enrollment eligibility representative; all questions welcomed and answered. Patient/authorized enrollment eligibility representative agreed to proceed Paroxysmal Atrial Fibrillation: [...] Follow up labs were already done by real estate developer. CHF with Reduced EF: - Reports dyspnea [...] Valve Stenosis Chronic Systolic Heart Failure (Hcc) Group Home (Current) Use of Anticoagulants Gout of [...] by mouth every 4 hours as needed. tlvrardoy-vrbxgv-udpmyjhj-scop () 16.2-0.1037 -0.0194 mg per tablet Take [...] Conjunctiva/sclera: Conjunctivae normal. Cardiovascular: (more content not included)...[facility]06-03-2025 History of Present illness Narrative* George Mata MD - 01/10/2025 11:56 AM EDT This note was created using [place] Operater. Subjective Patient presents with: Hospital F/U Bessy Valverde is a 79 year old male here with . Recording using ProjectSpeaker software for draft documentation of the visit was discussed with the patient/authorized enrollment eligibility representative; all questions welcomed and answered. Patient/authorized enrollment eligibility representative agreed to proceed Paroxysmal Atrial Fibrillation: [...] Follow up labs were already done by real estate developer. CHF with Reduced EF: - Reports dyspnea [...] Valve Stenosis Chronic Systolic Heart Failure (Hcc) Health Editor (Current) Use of Anticoagulants Gout of Foot [...] by mouth every 4 hours as needed. mrilhrkgs-uwcpxt-crmsrerw-scop () 16.2-0.1037 -0.0194 mg per tablet Take [...] information. George Mata MD documented in this encounterWayne [facility]05-29-2025 Telephone encounter Note * Telephone Encounter - Sandi Denton RN - 01/05/2025 3:10 PM EDT Images from the original note were not included. TRANSITION CARE MANAGEMENT (TCM) INITIAL CONTACT [facility] Outreach Provider Action/FYI: Patient has real estate developer appointment on 01/25/2025; Patient has to go get new pacer. Patient has tohave skin cancer removed from his face in a couple of weeks. Patient was admitted to [facility] on Thursday12/31/2024 Initial contact with patient post discharge, spoke to spouse. Patient identified by name and . TRANSITION CARE MANAGEMENT INITIAL OUTREACH DOCUMENTATION: No data to display SUMMARY: -Pt discharged from [facility] on 01/04/2025. -Admitted for: Atrial Fibrillation Do [...] hospitalization: Discharge Summary is scanning into documents [facility]05-29-2025 Miscellaneous Notes* Telephone Encounter - Sandi Denton RN - 01/05/2025 3:10 PM EDT Images from the original note were not included. TRANSITION CARE MANAGEMENT (TCM) INITIAL CONTACT [facility] Outreach Provider Action/FYI: Patient has real estate developer appointment on 01/25/2025; Patient has to go get new pacer. Patient has tohave skin cancer removed from his face in a couple of weeks. Patient was admitted to [facility] on Thursday12/31/2024 Initial contact with patient post discharge, spoke to spouse. Patient identified by name and . TRANSITION CARE MANAGEMENT INITIAL OUTREACH DOCUMENTATION: No data to display SUMMARY: -Pt discharged from [facility] on 01/04/2025. -Admitted for: Atrial Fibrillation Do [...] is scanning into documents documented in this encounterWayne [facility]05-28-2025 Pastoral care Progress note Pastoral Care Note Entered On: 01/04/2025 14:44 EDT Performed On: 01/03/2025 13:05 EDT by Kang Ruffin Pastoral [place] Type of Pastoral Visit : Initial visit [...] She talked about her nephew who is retirement and was baptized. We explored their monica and what we would do if it wasn't for God. They appreciated the visit and prayer. Number Present During Pastoral Visit : 1 Pastoral Care Visit Length : 15 minute(s) Kang Ruffin - 01/04/2025 14:44 EDT Digitally Signed by Kang Ruffin on 01/04/2025 02:41 PM Digitally Signed by Kang Ruffin on 01/04/2025 02:44 PM [facility] [id number] Note Discharge Instructions Thank you for allowing [facility] to assist you with your healthcare needs. The following is importantdischarge information regarding your hospital visit. Your Care Team GEORGE MATA MD Your Diagnosis Ventricular tachycardia What to do next Scheduled Follow-Up Appointments Appointment Type When With Where Contact Information StatusCV OV 06/06/2025 02:00 PM [facility]T [facility] Follow Up with VERONIQUE TOUSSAINT MD When:In 2 weeks Where:[address] [facility] [address] [place] [address]- [phone] Follow Up with BRIONNA GANT MD When:In 2 weeks Where:[address] [facility] [address] [place] [address]- [phone] Follow Up with Post 1XRN Discharge Visit FollowUp scheduled for Thursday, 01-06- b/t 8a-12p Follow Up with GEORGE MATA MD When:Within 1-2 days Where:[address] [facility] [place], [place] [id number]- [phone] Additional Information: Please call the office to schedule a hospital follow up appointment. Follow Up with [facility] When:03/21/2025 02:30 PM EDT Where:[address] [facility] [address] [place], [place] [address]- [phone] Follow Up with BRIONNA GANT MD When:06/06/2025 02:00 PM EDT Where:[address] [facility] [address] [facility] [place] [address]- [phone] The Following Activity and Diet Have Been [...] with a meal Refills: 11 Pickup at [facility] Changed bumetanide (bumetanide 1 mg oral tablet) 1 tab(s) by mouth Once a day as needed for weight gain >3lb in 3 days Duration: 90 Days Pickup at [facility] Unchanged acetaminophen (Tylenol 325 mg [...] mouth Every Thursday and Thursday Pharmacy Information [facility]: [address] [place] [address] [phone] What How Much When Why Comments Stop [...] may be diagnosed with: Electrocardiogram (ECG). Ambulatory telemetry monitor. This device records your heartbeats for 24 [...] 07/27/2006 Document Revised: 09/16/2018 Document Reviewed: 09/17/2018 [employer] ([place]) Patient Education 2020 [employer] Additional Information VACCINATE! IT SAVES LIVES! Members of the community who have not yet received the COVID-19 vaccine and would like to receive it can visit one of [facility] vaccine clinics. There are many vaccine clinic locations within the [facility]. For locations and available times, please visit [email or web address] It is important to note that some COVID mobile vaccine clinics are held outdoors and may be canceled in rainy or stormy conditions. To learn more about pediatric vaccinations (ages 5-11), we invite you to visit the [facility] webpage. [email or web address]/[email or web address] learn more about the COVID-19 vaccine, we invite you to visit the CDC website for a list of frequently asked questions.https://www.cdc.gov/coronavirus/2019-ncov/vaccines/faq.html [facility] Patient Portal Access Instructions: Stay connected with your healthcare team and access your personal medical information anytime with the [facility] Patient Portal. Please follow the directions below to create your [employer] account: 1.Access the email account you provided upon registration to the hospital/physician office.2.Look for an invitation email from [facility].3.Open the email and access the invitation link: AcceptInvitation to [employer].4.Fill in the required mitchell to create your account. To access your account, visit [email or web address]. Click the blue button labeled Access Patient Portal and then log in with the username and password that you created in the steps above. You will be able to view your test results, lab results, a summary of your visits, upcoming appointments and more. There is also a convenient messaging option where you can send secure messages to your [facility] Healthcareder. In addition, you will have the ability to download any documents or summaries to your computer and/or send the information securely to a physician. Remember that your healthcare information is confidential, so carefully consider who you will allowto register on the [employer] Patient Portal for access to your information. You can also access the [employer] Patient Portal on the [employer] charanjit. Simply click on Patient Portal and then log into your account. If you would like to receive a full copy of your medical records, please contact the [facility] Medical Records Department by calling [phone], Thursday through Thursday between 8 a.m. and [...] Call your local pharmacy or go to http://bit.ly/[email or web address] to find one close to you.3.Make use of household items: Use cat litter or old coffee grounds to dispose medications if other options arenot available. Mix your drugs with these household products, seal them in an airtight container andthrow it into the garbage. Call [facility]: [phone] to be sure your drugs can be [...] that I should contact my d octor. 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 Machine Applicator Signature: Date/Time: Relationship to Patient: Witness Name/Signature: Date/Time: [facility] [id number] Discharge summary Date of Service 01/04/2025 Discharge Diagnosis Paroxysmal atrial fibrillation on warfarin (sotalol failure) GARY CAD s/p CABG and last PCI to RCA in 2018 Status post mitral valve repair and TRINITY HFrEF (EF 30%) s/p DEPOSIT CLERK-D no acute exacerbation Hospital Course 79-year-old male with a past medical history of CAD s/p CABG and PCI to the RCA in 2018, hypertension, hyperlipidemia, severe aortic stenosis s/p TAVR, mitral regurgitation s/p mitral valve repair, atrial fibrillation on sotalol and warfarin, and heart failure with reduced ejection fraction (LVEF 30%) s/p DEPOSIT CLERK-D, presented to the emergency department for evaluation of tachycardia. The patient states that he was noticing fast heart rates and palpitations at home this morning when he woke up. He also reports associated shortness of breath and fatigue. The patient and his reached out to the on-call real estate developer who instructed them to present to the [...] TOUSSAINT MD When:In 2 weeks Where:[address] [address] [phone] Follow Up with BRIONNA GANT MD When:In 2 weeks Where:[address] [address] [phone] Follow Up with Post 1XRN Discharge Visit FollowUp scheduled for 01-06-25 b/t 8a-12p Follow Up with GEORGE MATA MD When:Within 1-2 days Where:[address] [place] [address]- [phone] Additional Information: Please call the office to schedule a hospital follow up appointment. Follow Up with [facility] When:03/21/2025 02:30 PM EDT Where:[address] [address]- [phone] Follow Up with BRIONNA GANT MD When:06/06/2025 02:00 PM EDT Where:[address] [address]- [phone] Follow Up Appointments No qualifying data available. [...] PM Digitally Signed by AILYN SHARP MD [facility] [id number] Note Date of Service 01/04/2025 Chief Complaint Palpitations/shortness of breath RFC Atrial fibrillation management HPI 79-year-old male with past medical history of hypertension, hyperlipidemia, CAD status post CABG status post PCI with TOOTIE to RCA in 2017, severe aortic stenosis status post TAVR, severe mitral regurgitation status post mitral valve repair, paroxysmal atrial fibrillation on sotalol and warfarin, heart failure with reduced ejection fraction, ischemic cardiopathy status post DEPOSIT CLERK-D in 2015, and obesity presents emergency department on 12/31/2024 [...] CVS: RRR, normal S1/S2, CABG Scar, left-sided DEPOSIT CLERK-D scar Lung: CTAB, no wheezes/rhonchi/rales Abd: Soft, [...] sotalol and warfarin #Ischemic cardiomyopathy status post DEPOSIT CLERK-D in 2016 #Obesity - Food Service Hotel Runner: Dr. Gant - Log Sorting Supervisor: Dr. Toussaint - Latest EKG reviewed - [...] II, MD PGY- Cardiovascular Disease Fellow Pager: [phone] I have seen and examined the patient with Dr. Maki, and I have instructed the decision making. I agree with all expressed in this note. Arnulfo Encinas MD Digitally Signed by CATRACHITO MAKI MD on 01/04/2025 09:20 AM Digitally Signed by CE PONCE, Dr ARNULFO on 01/04/2025 05:28 PM [facility] [id number] Cardiology Progress note Date of Service 01/03/2025 [...] repair and TRINITY HFrEF (EF 30%) s/p DEPOSIT CLERK-D no acute exacerbation Patient came in for [...] GATITO ROSE MD on 01/03/2025 01:52 PM [facility] [id number] Cardiology Progress note Date of Service 01/03/2025 [...] repair and TRINITY HFrEF (EF 30%) s/p DEPOSIT CLERK-D no acute exacerbation Patient came in for [...] GATITO ROSE MD on 01/03/2025 01:52 PM [facility] [id number] Cardiology Consult note Date of Service 01/03/2025 [...] reduced ejection fraction, ischemic cardiopathy status post DEPOSIT CLERK-D in 2015, and obesity presents emergency department on 12/31/2024 [...] CVS: RRR, normal S1/S2, CABG Scar, left-sided DEPOSIT CLERK-D scar Lung: CTAB, no wheezes/rhonchi/rales Abd: Soft, [...] sotalol and warfarin #Ischemic cardiomyopathy status post DEPOSIT CLERK-D in 2016 #Obesity - Food Service Hotel Runner: Dr. Gant - Log Sorting Supervisor: Dr. Toussaint - Latest EKG reviewed - [...] II, MD PGY- Cardiovascular Disease Fellow Pager: [phone] I have seen this patient in conjunction with Dr. Maki. I have read all above notes, and amendedthem as needed, and I am in agreement. Arnulfo Encinas MD Problem List/Past Medical History Ongoing Acid reflux Acute kidney injury AF (atrial fibrillation) Aortic stenosis Asthma ASTHMA Atrial fibrillation BIVENTRICULAR ICD (IMPLANTABLE CARDIOVERTER-DEFIBRILLATOR) IN PLACE CAD - Coronary artery disease CAD IN [place] Cardiomyopathy CHRONIC SYSTOLIC CHF (CONGESTIVE HEART [...] ENCINAS MD, Dr on 01/03/2025 06:25 PM [facility] [id number] Hospital Discharge instructions Patient Education 01/03/2025 02:04:48 [...] may be diagnosed with: Electrocardiogram (ECG). Ambulatory telemetry monitor. This device records your heartbeats for 24 [...] 07/27/2006 Document Revised: 09/16/2018 Document Reviewed: 09/17/2018 [employer] Patient Education 2020 [employer]. Follow Up Care 12/31/2024 10:43:09 With:VERONIQUE TOUSSAINT MD Address: [address] [place] [address] [phone] When:Within 2 Week(s) With:BRIONNA GANT MD Address: [address] [place] [phone]- [phone] When:Within 2 Week(s) With:Post 1XRN Discharge Visit FollowUp scheduled for 01-06-25 b/t 8a-12p Address:Unknown When: Unknown With:[facility] Address: [address] [place] [address]- [phone] When:03/21/2025 14:30:00 With:BRIONNA GANT MD Address: [address] [place] [address]- [phone] When:06/06/2025 14:00:00 With:GEORGE MATA MD Address: [address] [place] [address]- [phone] When:1-2 days Comments:Please call the office to schedule a hospital follow up appointment. [facility] 05-26-2025 Cardiology Progress note Date of Service [...] mg tablet 2.5 mg 1 tab(s), Oral, Sun/Tues/Wed/Thurs/Sat warfarin 5 mg tablet 5 mg 1 [...] with reduced ejection fraction (LVEF 30%) s/p DEPOSIT CLERK-D, well compensated Plan: Rates better controlled, however still having periods of mild tachycardia. Continue amiodarone 400 mg twice daily for now. Continue home warfarin. Plan for EP consult tomorrow for additional recommendations. Continue home Bumex 1 mg p.o. daily, Entresto, Toprol-XL. [1] History and Physical; GINGER ALEXANDRE DO 12/31/2024 16:50 EDT Digitally Signed by GINGER ALEXANDRE DO on 01/02/2025 06:21 PM [facility] [id number] Cardiology Progress note Date of Service 01/02/2025 Subjective No acute events this morning. Patient remains mildly tachycardic low 100s this morning. Objective Vitals and Measurements T: 36.4 C (Oral) TMIN: 36.4 C (Oral) TMAX: 37.0 C (Oral) HR: 94 (Monitored) RR: 18 BP: 94/48 SpO2:94% Intake and Output 7AM Yesterday to 7AM [...] s/p CABG and PCI to the RCA 2017 History of severe aortic stenosis s/p TAVR Mitral regurgitation s/p MV repair Heart failure with reduced ejection fraction (LVEF 30%) s/p DEPOSIT CLERK-D, well compensated Plan: Rates better controlled, however still having periods of mild tachycardia. Continue amiodarone 400 mg twice daily for now. Continue home warfarin. Plan for EP consult tomorrow for additional recommendations. Continue home Bumex 1 mg p.o. daily, Entresto, Toprol-XL. [1] History and Physical; GINGER ALEXANDRE DO 12/31/2024 16:50 EDT Digitally Signed by GINGER ALEXANDRE DO on 01/02/2025 06:21 PM [facility] [id number] Cardiology Progress note Review of symptoms: Review [...] Thursday. warfarin: 2.5 mg, 0.5 tab(s), Oral, Sun//Wed/Thurs/Sat. Medications Inactivated in the Last 72 Hours fluticasone-salmeterol: 1 puff(s), Inhalation, BID. pantoprazole: 20 mg, 1 tab(s), Oral, qDay, 0 Refill(s). sotalol: 160 mg, 2 tab(s), Oral, BID. warfarin: 2.5 mg, Oral, Sun/Tues/Thurs, 0 Refill(s). warfarin: 5 mg, 1 tab(s), Oral, Thu/Thu/Thu/Sat, 0 Refill(s). 36hr Labs 01/01 0626 Potassium Level4.1 Calcium Lvl8.9 Olmeicve536 Electrolyte Balance8.0 CO225 BUN/Creatinine Ratio29.5H Glucose Xzqig101 BUN38.0H Estimated Glomerular Jqcxoop77 Sodium Knrlg247 Creatinine Lvl (s)1.29 Magnesium Lvl2.1 Ykrwjbf07.8H PT International Ratio1.9 RDW16.9H Neutrophil, Absolute5.1 Lymphocyte %12.2L Hct31.8L Monocyte, Absolute0.7 Fvhkchki426B Monocyte %10.3 MCV85.5 Eosinophil, Absolute0.2 MPV9.2 Eosinophil %2.7 Basophil, Absolute0.1 WBC6.9 MCH29.1 Basophil %0.7 RBC3.72L MCHC34.0 Neutrophil %74.1 Lymphocyte, Absolute0.8L Hgb10.8L 12/31 2108 Xxxilvq34.1H PT International Ratio1.8 12/31 1510 High Sensitivity Troponin I65H 12/31 1322 High Sensitivity Troponin I69H 12/31 1128 BUN41.0H Pfjnyphz983 Bili Total1.10 BUN/Creatinine Ratio29.3H Glucose Mgtde170E CO228 Creatinine Lvl (s)1.40 Alk Phos80 Globulin3.7 Sodium Muhvq689 Estimated Glomerular Vhppejv53 Calcium Lvl9.4 AST/SGOT22 High Sensitivity Troponin I63H A/G Ratio1.0 Potassium Level4.0 Total Protein7.4 ALT/SGPT13 N-Terminal tleAGH5467 Albumin Level3.7 Electrolyte Balance8.0 PT International Ratio1.6 Imtjtag35.7H Basophil %0.6 RBC4.08L MCHC34.4 Monocyte Distribution Width19.60 Neutrophil %75.8H Lymphocyte, Absolute0.7L Hgb11.9L Neutrophil, Absolute5.1 RDW16.8H Lymphocyte %11.1L Monocyte, Absolute0.7 Hct34.5L Jwmjlqvk706T Monocyte %9.7 Eosinophil, Absolute0.2 MCV84.7 MPV8.9 Eosinophil [...] failure LVEF 30% Ischemic cardiomyopathy status post DEPOSIT CLERK D- continue home medications CAD status post CABG last intervention was in RCA 2017 Hypertension Dyslipidemia Suggest start amiodarone 400mg p.o. BID , Patient was on high-dose sotalol we stopped it yesterday. Will reassess tomorrow adding IV amiodarone load depending on telemetry On discharge decrease amiodarone dose EP consult on Thursday Digitally Signed by CARLOS RIDLEY MD on 01/01/2025 12:32 PM [facility] [id number] History and physical note Date of Service [...] with reduced ejection fraction (LVEF 30%) s/p DEPOSIT CLERK-D, presented to the emergency department for evaluation of tachycardia. The patient states that he was noticing fast heart rates and palpitations at home this morning when he woke up. He also reports associated shortness of breath and fatigue. The patient and his reached out to the on-call real estate developer who instructed them to present to the [...] s/p CABG and PCI to the RCA 2017 History of severe aortic stenosis s/p TAVR Mitral regurgitation s/p MV repair Heart failure with reduced ejection fraction (LVEF 30%) s/p DEPOSIT CLERK-D, well compensated Plan: The patient symptoms at home are most likely due to rapid atrial fibrillation. His DEPOSIT CLERK-D was interrogated in the emergency department multiple [...] CAD - Coronary artery disease CAD IN [place] Cardiomyopathy CHRONIC SYSTOLIC CHF (CONGESTIVE HEART [...] 02/12/18 Cardiac catheterization: 09/2015 Mitral valve prosthesis: 10/08/13 Insertion of intra-aortic balloon pump: 05/17/13 Implantation [...] GINGER ALEXANDRE DO on 01/01/2025 01:18 AM [facility] [id number] History and physical note Date of Service [...] with reduced ejection fraction (LVEF 30%) s/p DEPOSIT CLERK-D, presented to the emergency department for evaluation of tachycardia. The patient states that he was noticing fast heart rates and palpitations at home this morning when he woke up. He also reports associated shortness of breath and fatigue. The patient and his reached out to the on-call real estate developer who instructed them to present to the [...] with reduced ejection fraction (LVEF 30%) s/p DEPOSIT CLERK-D, well compensated Plan: The patient symptoms at home are most likely due to rapid atrial fibrillation. His DEPOSIT CLERK-D was interrogated in the emergency department multiple [...] CAD - Coronary artery disease CAD IN [place] Cardiomyopathy CHRONIC SYSTOLIC CHF (CONGESTIVE HEART [...] GINGER ALEXANDRE DO on 01/01/2025 01:18 AM [facility] [id number] Respiratory therapy Hospital Progress note Respiratory Therapy Evaluation Entered On: 12/31/2024 21:12 EDT Performed On: 12/31/2024 21:12 EDT by Violette Tijerina DECORATOR INSPECTOR Respiratory Therapy Evaluation Pulmonary Status : Chronic [...] Therapeutic interchange, discontinue future evaluations Violette Tijerina DECORATOR INSPECTOR - 12/31/2024 21:12 EDT Digitally Signed by Violette Tijerina DECORATOR INSPECTOR on 12/31/2024 09:12 PM [facility] [id number] Evaluation + Plan noteExtracted from: Title:History and Physical Author:NAIN ALEXANDRE DO Date:12/31/24 Chronic atrial fibrillation on sotalol and warfarin, presented with RVR CAD s/p CABG and PCI to the RCA 2018 History of severe aortic stenosis s/p TAVR Mitral regurgitation s/p MV repair Heart failure with reduced ejection fraction (LVEF 30%) s/p DEPOSIT CLERK-D, well compensated Plan: The patient symptoms at home are most likely due to rapid atrial fibrillation. His DEPOSIT CLERK-D was interrogated in the emergency department multiple [...] Scheduled Provider:JAVIER GANT Location:[facility] Appointment Type:CV [facility] 05-24-2025 Note* Exam Date Time Procedure Performing Provider Status 12/31/24 11:31 AM XR Chest 1 View GENNA SANCHEZ DO; Auth (Verified) [id number] ORIGINAL EXAMINATION: Exam Title:ONE XRAY VIEW OF THE CHEST Completed Time: 12/31/2024 11:31 am Procedure Description:CHEST ONE VIEW AP/PA COMPARISON: July 25, 2021 chest x-ray HISTORY: ORDERING SYSTEM PROVIDED HISTORY: Reason for Exam: palpitations FINDINGS: Wtpc-tc-ltifzqgw cardiomegaly. CABG. Pacing leads appear intact. Left-sided [...] 12/31/2024 11:35:34 AM Ordering Provider: MEGHA HAHN [facility] [id number] Note* Exam Date Time Procedure Performing Provider Status 12/31/24 10:50 AM EKG (ED) - CV ROXANE DIXON MD; Au th (Verified) ECG Final Report AFIB/FLUTTER AND VENTRICULAR-PACED RHYTHM This EKG was read and contributed directly to the care of the patient Electronic Signature: ROXANE DIXON MD 12/31/2024 15:36:57 [facility] [id number] Telephone encounter Note* Telephone Encounter - Valerio Acharya RPh - 12/26/2024 3:34 PM EDT Spoke to patient - advised to have INR checked within two weeks of tomorrow's procedure. [facility]05-19-2025 Miscellaneous Notes* Telephone Encounter - Valerio Acharya RPh - 12/26/2024 3:34 PM EDT Spoke to patient - advised to have INR checked within two weeks of tomorrow's procedure. * Telephone Encounter - Kelechi PleitezInstrument Repair TechnicianKaran Easton - 12/26/2024 9:08 AM EDT Patient called to let us know he will not be able to test tomorrow as he was advised by to hold warfarin yesterday and today for a procedure tomorrow. 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 Patient is asking when next INR should be done and can be reached at [phone] and stated we mayleave a detailed message if no answer. Karan Lorenz (Instrument Repair Technician) documented in this encounterWay[facility]05-19-2025 Telephone encounter Note * Telephone Encounter - Kelechi PleitezThe Fred RogersKaran Easton - 12/26/2024 9:08 AM EDT Patient called to let us know he will not be able to test tomorrow as he was advised by to hold warfarin yesterday and today for a procedure tomorrow. 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 Patient is asking when next INR should be done and can be reached at [phone] and stated we mayleave a detailed message if no answer. Karan Lorenz (The Fred Rogers) [facility]05-06-2025 Telephone encounter Note* Telephone Encounter - Jonathan Hawkins [facility] - 12/13/2024 7:50 AM EDT [facility] Ambulatory Pharmacy Anticoagulation Clinic Anticoagulation Episode Summary Anticoagulation Care Providers Provider Role Specialty Phone number George Mata MD Responsible Internal Medicine [phone] Bessy Valverde is a 78 year old [...] Pharmacy Anticoagulation Clinic Pharmacy Anticoagulation Clinic Pager: [phone]. [facility]05-06-2025 Miscellaneous Notes* Telephone Encounter - Jonathan Hawkins RPh - 12/13/2024 7:50 AM EDT [facility] Ambulatory Pharmacy Anticoagulation Clinic Anticoagulation Episode Summary Anticoagulation Care Providers Provider Role Specialty Phone number George Mata MD Responsible Internal Medicine [phone] Bessy Valverde is a 78 year old [...] Pharmacy Anticoagulation Clinic Pharmacy Anticoagulation Clinic Pager: [phone]. documented in this encounterWayne [facility]04-22-2025 Telephone encounter Note * Telephone Encounter - Jonathan Hawkins RPh - 11/29/2024 8:53 AM EDT [facility] Ambulatory Pharmacy Anticoagulation Clinic Anticoagulation Episode Summary Anticoagulation Care Providers Provider Role Specialty Phone number George Mata MD Responsible Internal Medicine [phone] Bessy Valverde is a 78 year old [...] Pharmacy Anticoagulation Clinic Pharmacy Anticoagulation Clinic Pager: [phone]. [facility]04-22-2025 Miscellaneous Notes* Telephone Encounter - Jonathan Hawkins RPh - 11/29/2024 8:53 AM EDT [facility] Ambulatory Pharmacy Anticoagulation Clinic Anticoagulation Episode Summary Anticoagulation Care Providers Provider Role Specialty Phone number George Mata MD Responsible Internal Medicine [phone] Bessy Valverde is a 78 year old [...] Pharmacy Anticoagulation Clinic Pharmacy Anticoagulation Clinic Pager: [phone]. documented in this encounterWayne [facility]04-11-2025 Note* Exam Date Time Procedure Performing Provider Status 11/18/24 11:37 AM Echocardiogram, Adul t - CV VINCE PARKER MD; Auth (Verified) [facility] [id number] Telephone encounter Note* Telephone Encounter - Daphney Obando LPN - 11/17/2024 3:47 PM EDT Appt 02/01/2025. Daphney Obando LPN [facility]04-10-2025 Miscellaneous Notes* Telephone Encounter - Daphney [...] follows: Requested Prescriptions Pending Prescriptions Disp Refills tbbtkbiqz-ybxebq-ygzxtmet-scop () 16.2-0.1037 -0.0194 mg per tablet 240 tablet 0 Sig: Take 1 tablet by mouth every 6 hours as needed. Please review and advise. Reyna Suárez documented in this encounterWayne Healthcare [facility]04-10-2025 Telephone encounter Note * Telephone Encounter - Reyna Thompson - 11/17/2024 3:26 PM EDT Patient has been identified by name and date of : Yes Last office visit in this department: 11/01/2024 RX INSTRUCTIONS: Patient aware RX escripted to mail away pharmacy. No need to notify patient. Patient phones requesting refills as follows: Requested Prescriptions Pending Prescriptions Disp Refills vtkgjchye-ytcwsy-lzliocuh-scop () 16.2-0.1037 -0.0194 mg per tablet 240 tablet 0 Sig: Take 1 tablet by mouth every 6 hours as needed. Please review and advise. Reyna Suárez [facility]04-08-2025 Telephone encounter Note* Telephone Encounter - Elliott Gleason RPh - 11/15/2024 8:54 AM EDT [facility] Ambulatory Pharmacy Anticoagulation Clinic Anticoagulation Episode Summary Anticoagulation Care Providers Provider Role Specialty Phone number George Mata MD [facility] Internal Medicine [phone] Bessy Valverde is a 78 year old [...] ALLERGIES No Known Allergies Indication for Warfarin: halfway (current) use of anticoagulants Permanent atrial fibrillation [...] missed any doses of warfarin. Elliott Gleason [facility] Clinical Pharmacist, Pharmacy Anticoagulation Clinic Pharmacy Anticoagulation Clinic Pager: [phone]. [facility]04-08-2025 Miscellaneous Notes* Telephone Encounter - Elliott Gleason RPh - 11/15/2024 8:54 AM EDT [facility] Ambulatory Pharmacy Anticoagulation Clinic Anticoagulation Episode Summary Anticoagulation Care Providers Provider Role Specialty Phone number George Mata MD Responsible Internal Medicine [phone] Bessy Valverde is a 78 year old [...] ALLERGIES No Known Allergies Indication for Warfarin: buttermaker continuous churn (current) use of anticoagulants Permanent atrial fibrillation [...] Pharmacy Anticoagulation Clinic Pharmacy Anticoagulation Clinic Pager: [phone]. documented in this encounterWayne Healthcare [facility] Campus03-25-2025 NoteHNO ID: [id number] Author: GEORGE MATA MD Service: ? Author Type: Physician Type: Progress Notes Filed: 11/01/2024 09:34 Note Text: This note was created using nWayriter. Subjective Besys Valverde is a 78 year old male. [...] Valve Stenosis Chronic Systolic Heart Failure (Hcc) Health Editor (Current) Use of Anticoagulants Gout of Foot [...] on empty stomach, 1/2 hr before meal. xgjystfhg-sjabea-dkymrgpq-scop () 16.2-0.1037 -0.0194 mg per tablet Take [...] Medication: tramadol. Benefits: [employer] (more content not included)...[facility]03-25-2025 History of Present illness Narrative* George Mata MD - 11/01/2024 9:00 AM EDT This note was created using NoteWriter. Subjective Bessy Valverde is a 78 year [...] Valve Stenosis Chronic Systolic Heart Failure (Hcc) Group Home (Current) Use of Anticoagulants Gout of [...] on empty stomach, 1/2 hr before meal. lcwcdhtqv-ayyvkf-snqjsbzt-scop () 16.2-0.1037 -0.0194 mg per tablet Take [...] the short term and not in the fdc. Risks: Possible side effects were discussed including sedation, confusion. Possible interactions: none if taken infrequently. Warnings: addiction, abuse. Use sparingly. - TRAMADOL 50 MG TABLET. Take one(1) tablet two(2) times daily as needed. 2. Encounter for immunization - ICD9: V03.89, ICD10: Z23 - PFIZER-BIONTECH COVID-19 VACCINE AGE 12+ YR (COMIRNATY) Postponed. 3. Asthma, moderate persistent, well-controlled - ICD9: 493.90, ICD10: J45.40 - Moderate persistent asthma stable - ALBUTEROL SULFATE HFA 90 MCG/ACTUATION AEROSOL INHALER 4. Atherosclerosis of [place] coronary artery of [place] heart without angina pectoris - ICD9: 414.01, [...] ACID George Mata MD documented in this encounterWayne [facility]03-25-2025 Telephone encounter Note * Telephone Encounter - Lian Coulter, [facility] - 11/01/2024 8:33 AM EDT [facility] Ambulatory Pharmacy Anticoagulation Clinic Anticoagulation Episode Summary Anticoagulation Care Providers Provider Role Specialty Phone number George Mata MD [facility] Internal Medicine [phone] Bessy Valverde is a 78 year old [...] ALLERGIES No Known Allergies Indication for Warfarin: buttermaker continuous churn (current) use of anticoagulants Permanent atrial fibrillation [...] Pharmacy Anticoagulation Clinic Pharmacy Anticoagulation Clinic Pager: [phone]. [facility]03-25-2025 Miscellaneous Notes* Telephone Encounter - Lian Coulter RPh - 11/01/2024 8:33 AM EDT [facility] Ambulatory Pharmacy Anticoagulation Clinic Anticoagulation Episode Summary Anticoagulation Care Providers Provider Role Specialty Phone number George Mata MD [facility] Internal Medicine [phone] Bessy Valverde is a 78 year old [...] ALLERGIES No Known Allergies Indication for Warfarin: buttermaker continuous churn (current) use of anticoagulants Permanent atrial fibrillation [...] Pharmacy Anticoagulation Clinic Pharmacy Anticoagulation Clinic Pager: [phone]. documented in this encounterWayne [facility] Telephone encounter Note * Telephone Encounter - Jonathan Hawkins RPh - 10/18/2024 7:58 AM EDT [facility] Antico[facility] Clinic Anticoagulation Episode Summary Anticoagulation Care Providers Provider Role Specialty Phone number George Mata MD Responsible Internal Medicine [phone] Bessy Valverde is a 78 year old [...] Pharmacy Anticoagulation Clinic Pharmacy Anticoagulation Clinic Pager: [phone]. [facility]03-11-2025 Miscellaneous Notes* Telephone Encounter - Jonathan Hawkins RPh - 10/18/2024 7:58 AM EDT [facility] Anticoagulation Episode Summary Anticoagulation Care Providers Provider Role Specialty Phone number George Mata MD [facility] Internal Medicine [phone] Bessy Valverde is a 78 year old [...] Pharmacy Anticoagulation Clinic Pharmacy Anticoagulation Clinic Pager: [phone]. documented in this encounterWayne [facility]25 Telephone encounter Note * Telephone Encounter - Jonathan Hawkins RPh - 10/04/2024 8:19 AM EST [facility] Anticoagulation Episode Summary Anticoagulation Care Providers Provider Role Specialty Phone number George Mata MD [facility] Internal Medicine [phone] Bessy Valverde is a 78 year old [...] Pharmacy Anticoagulation Clinic Pharmacy Anticoagulation Clinic Pager: [phone]. [facility]02-25-2025 Miscellaneous Notes* Telephone Encounter - Jonathan Hawkins RPh - 10/04/2024 8:19 AM EST [facility] Antico[facility] Clinic Anticoagulation Episode Summary Anticoagulation Care Providers Provider Role Specialty Phone number George Mata MD [facility] Internal Medicine [phone] Bessy Valverde is a 78 year old [...] Pharmacy Anticoagulation Clinic Pharmacy Anticoagulation Clinic Pager: [phone]. documented in this encounterWayne [facility]02[facility]-2025 Telephone encounter Note * Telephone Encounter - Jonathan Hawkins RPh - 09/20/2024 9:11 AM EST [facility] Antico[facility] Clinic Anticoagulation Episode Summary Anticoagulation Care Providers Provider Role Specialty Phone number George Mata MD [facility] Internal Medicine [phone] Bessy Valverde is a 78 year old [...] Pharmacy Anticoagulation Clinic Pharmacy Anticoagulation Clinic Pager: [phone]. [facility]02-11-2025 Miscellaneous Notes* Telephone Encounter - Jonathan Hawkins, RP - 09/20/2024 9:11 AM EST [facility] Amb[facility] Anticoagulation Clinic Anticoagulation Episode Summary Anticoagulation Care Providers Provider Role Specialty Phone number George Mata MD Responsible Internal Medicine [phone] Bessy Valverde is a 78 year old [...] Pharmacy Anticoagulation Clinic Pharmacy Anticoagulation Clinic Pager: [phone]. documented in this encounterWayne [facility]02-07-2025 Telephone encounter Note * Telephone Encounter - Galilea Plunkett MA - 09/16/2024 10:45 AM EST notified and given Dr. Iverson number to call and schedule. Faxed all documents Galilea Plunkett MA [facility]02-07-2025 Miscellaneous Notes* Telephone Encounter - Galilea [...] - CONSULT TO NEPHROLOGY. Dr. Mackenzie Iverson, [facility] Nephrology. George Mata MD * Telephone Encounter [...] placeconsult and will fax all information to [facility] here in day. Patient was given number to call and schedule. 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 Consider nephrology consult. 2) diabetes controlled. 3) lipids controlled. 4) anemia stable. George Mata MD documented in this encounterWayne [facility]02-05-2025 Telephone encounter Note * Telephone Encounter - George Mata MD - 09/14/2024 9:48 AM EST ASSESSMENT/PLAN: 1. Controlled type 2 diabetes mellitus with stage 3 chronic kidney disease, without long-term current use of insulin (HCC) - ICD9: 250.40, 585.3, ICD10: E11.22, N18.30 - eGFR: Worsening - CONSULT TO NEPHROLOGY. Dr. Mackenzie Iverson, [facility] Nephrology. George Mata MD [facility]02-04-2025 Telephone encounter Note* Telephone Encounter - Marva Carroll LPN - 09/13/2024 8:53 AM EST asking to be called when the referral has been faxed. If they do not answer, please leave a detailed message. Marva Carroll LPN [facility]02-04-2025 Telephone encounter Note* Telephone Encounter - Galilea Plunkett MA - 09/13/2024 8:34 AM EST Patient was notified and willing to see nephrology ut would like to remain in day. Please placeconsult and will fax all information to [facility] here in day. Patient was given number to call and schedule. 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 Consider nephrology consult. 2) diabetes controlled. 3) lipids controlled. 4) anemia stable. George Mata MD [facility]01-28-2025 Telephone encounter Note* Telephone Encounter - Jonathan Hawkins [facility] - 09/06/2024 8:20 AM EST [facility] Anticoagulation Clinic Anticoagulation Episode Summary Anticoagulation Care Providers Provider Role Specialty Phone number George Mata MD [facility] Internal Medicine [phone] Bessy Valverde is a 78 year old [...] Pharmacy Anticoagulation Clinic Pharmacy Anticoagulation Clinic Pager: [phone]. [facility]01-28-2025 Miscellaneous Notes* Telephone Encounter - Jonathan Hawkins RPh - 09/06/2024 8:20 AM EST [facility] Anticoagulation Clinic Anticoagulation Episode Summary Anticoagulation Care Providers Provider Role Specialty Phone number MataGeorge morris MD Responsible Internal Medicine [phone] Bessy Valverde is a 78 year old [...] Pharmacy Anticoagulation Clinic Pharmacy Anticoagulation Clinic Pager: [phone]. documented in this encounterWayne [facility]01-14-2025 Telephone encounter Note * Telephone Encounter - Francois Nguyen RN - 08/23/2024 11:11 AM EST [facility], letting pcp know, patient declined appt with [facility], stating he found out he had gout, and is doing a lot better now. [facility]01-14-2025 Miscellaneous Notes* Telephone Encounter - Francois Nguyen RN - 08/23/2024 11:11 AM EST [facility], letting pcp know, patient declined appt with [facility], stating he found out he had gout, and is doing a lot better now. documented in this encounterWayne [facility]01-14-2025 Telephone encounter Note * Telephone Encounter - Jonathan Hawkins RPh - 08/23/2024 8:00 AM EST [facility] Anticoagulation Clinic Anticoagulation Episode Summary Anticoagulation Care Providers Provider Role Specialty Phone number George Mata MD [facility] Internal Medicine [phone] Bessy Valverde is a 78 year old [...] Pharmacy Anticoagulation Clinic Pharmacy Anticoagulation Clinic Pager: [phone]. [facility]01-14-2025 Miscellaneous Notes* Telephone Encounter - Jonathan Hawkins RPh - 08/23/2024 8:00 AM EST [facility] Amb[facility] Anticoagulation Clinic Anticoagulation Episode Summary Anticoagulation Care Providers Provider Role Specialty Phone number George Mata MD [facility] Internal Medicine [phone] Bessy Valverde is a 78 year old [...] Pharmacy Anticoagulation Clinic Pharmacy Anticoagulation Clinic Pager: [phone]. documented in this encounterWayne [facility]01-07-2025 Telephone encounter Note * Telephone Encounter - Jonathan Hawkins RPh - 08/16/2024 9:12 AM EST [facility] Amb[facility] Anticoagulation Clinic Anticoagulation Episode Summary Anticoagulation Care Providers Provider Role Specialty Phone number George Mata MD [facility] Internal Medicine [phone] Bessy Valverde is a 78 year old [...] Pharmacy Anticoagulation Clinic Pharmacy Anticoagulation Clinic Pager: [phone]. [facility]01-07-2025 Miscellaneous Notes* Telephone Encounter - Jonathan Hawkins RPh - 08/16/2024 9:12 AM EST [facility] Ambulatory [facility] Anticoagulation Clinic Anticoagulation Episode Summary Anticoagulation Care Providers Provider Role Specialty Phone number George Mata MD Responsible Internal Medicine [phone] Bessy Valverde is a 78 year old [...] Pharmacy Anticoagulation Clinic Pharmacy Anticoagulation Clinic Pager: [phone]. * Telephone Encounter - Yessy Walden PSS - 08/16/2024 8:56 AM EST Patient returned the call. Please call the patient at [phone] * Telephone Encounter - Jonathan Hawkins RPh - 08/16/2024 8:40 AM EST The patient was called to discuss recent INR test results. A voice message was left on patient's Home telephone voice mail. The patient was advised to call the Coumadin Clinic at [phone] and hold warfarin today. On prednisone 40 mg daily PT INR (no units) Date Value 11/19/2021 2.7 biotel 11/05/2021 2.5 10/22/2021 2.8 biotel INR Home CoaguChek (no units) Date Value 08/16/2024 3.5 07/19/2024 3.0 07/05/2024 2.8 Jonathan Hawkins, PharmD,CACP documented in this encounterWayne [facility]01-07-2025 Telephone encounter Note * Telephone Encounter - Yessy Walden PSS - 08/16/2024 8:56 AM EST Patient returned the call. Please call the patient at [phone] [facility]01-07-2025 Telephone encounter Note* Telephone Encounter - Jonathan Hawkins RPh - 08/16/2024 8:40 AM EST The patient was called to discuss recent INR test results. A voice message was left on patient's Home telephone voice mail. The patient was advised to call the Coumadin Clinic at [phone] and hold warfarin today. On prednisone 40 mg daily PT INR (no units) Date Value 11/19/2021 2.7 biotel 11/05/2021 2.5 10/22/2021 2.8 biotel INR Home CoaguChek (no units) Date Value 08/16/2024 3.5 07/19/2024 3.0 07/05/2024 2.8 Jonathan Hawkins, PharmD,CACP [facility]01-06-2025 Telephone encounter Note* Telephone Encounter - Galilea Plunkett MA - 08/15/2024 12:48 PM EST Patient notified via voicemail Galilea Plunkett MA [facility]01-06-2025 Miscellaneous Notes* Telephone Encounter - Galilea [...] not better. Also follow up with his order management specialist. documented in this encounterWayne [facility]01-06-2025 Telephone encounter Note * Telephone Encounter [...] 2 days. Authorizing Provider: GEORGE MATA MD [facility]01-06-2025 Telephone encounter Note* Telephone Encounter - Galilea Plunkett MA - 08/15/2024 10:35 AM EST Patient was notified and is feeling better. Patient will schedule with pulmonary office for follow up. Requesting prednisone taper for gout attack . If ok rx pended and will let patient know Galilea Plunkett MA [facility]01-06-2025 Telephone encounter Note* Telephone Encounter - Galilea Plunkett MA - 08/15/2024 10:33 AM EST ----- Message from George Mata MD sent at 08/13/2024 8:13 PM EST ----- Pulmonary fibrosis, atelectasis, difficult to rule out pneumonia. Schedule follow up if he is not better. Also follow up with his order management specialist. [facility]12-31-2024 History of Present illness Narrative* Tramaine Cano RT(R) - 08/09/2024 11:20 AM EST Radiology [...] PATIENT PRESENTS WITH AN IMPLANTABLE OR ATTACHED BROOM STITCHER: No RADIOLOGY DEPARTMENT: General X-ray: Exam(s) Completed: Chest X-Ray PERIPHERAL IV DATA: Not applicable SIGNED BY: RT Mervat(R) August 09, 2024 11:33 AM documented in this encounterWayne Healthcare [facility]12-31-2024 NoteHNO ID: [id number] Author: TRAMAINE CANO RT(Hyun) Service: Radiology Author Type: Technologist Type: Progress [...] PATIENT PRESENTS WITH AN IMPLANTABLE OR ATTACHED BROOM STITCHER: No RADIOLOGY DEPARTMENT: General X-ray: Exam(s) Completed: Chest X-Ray PERIPHERAL IV DATA: Not applicable SIGNED BY: Tramaineleodan Cano, RT(R) August 09, 2024 11:33 [facility]12-31-2024 NoteHNO ID: [id number] Author: GEORGE MATA MD Service: ? Author Type: Physician Type: Progress Notes Filed: 08/10/2024 17:01 Note Text: This note was created using nWayriter. Subjective Patient presents with: Yearly Exam Bessy [...] to GI side effects. requested referral to [facility] for chronic ankle pain right side, with remote injury. Dr. Arline Gnat, cardiology. Dr. Cielo Dlegado, pulmonary. Dr. Cielo Rousseau, pain management. Dr. 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) Pvd (Peripheral Vascular Disease) With Claudication (Hcc) PAST SURGICAL HISTORY Procedure Laterality Date AICD, DUAL CHAMBER 10/29/2015 dual lead AICD APPENDECTOMY 1993 [facility] INCL FLUOR GDNCE DX W/CELL WASHG SPX 02/04/2013 BRONCHOSCOPY CARDIAC CATH 12/16/2017 [facility]aco CARDIAC CATH 12/14/2018 Right AND Left COLONOSCOPY AND POLYPECTOMY 04/03/2017 COLONOSCOPY SCREENING 05/06/2021 [facility] COLONOSCOPY W/BIOPSY SINGLE/MULTIPLE 07/26/2010 Diminutive polyp of sigmoid/diverticulosis COLONOSCOPY W/BIOPSY SINGLE/MULTIPLE 09/10/2012 CORONARY ARTERY BYP W/VEIN AND ARTERY GRAFT 4 VEIN 04/29/2007 CABG, quadruple grafts CORONARY ARTERY BYPASS GRAFT CORONARY STENT EA VESSEL 02/12/2018 [facility] RCA EGD 05/06/2021 [facility] EGD TRANSORAL BIOPSY SINGLE/MULTIPLE 09/10/2012 EGD W/ BIOPSY SNGL/MLTPL 04/03/2017 [facility] HEART VALVE REPLACEMENT IMPLANTABLE CARDIOVERTER DEFIBRILLATOR [...] Mother Breast Cancer Mother Heart Father of [place] age 85. CABG 13 yrs. prior Heart [...] status: Never Used Sub (more content not included)...[facility]12-31-2024 History of Present illness Narrative* George Mata MD - 08/09/2024 10:34 AM EST This note was created using nWayriter. Subjective Patient presents with: Yearly Exam Bessy [...] to GI side effects. 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) Pvd (Peripheral Vascular Disease) With Claudication (Hcc) PAST SURGICAL HISTORY Procedure Laterality Date AICD, DUAL CHAMBER 10/29/2015 dual lead AICD APPENDECTOMY 1993 [facility] INCL FLUOR GDNCE DX W/CELL WASHG SPX 02/04/2013 BRONCHOSCOPY CARDIAC CATH 12/16/2017 [facility]aco CARDIAC CATH 12/14/2018 Right & Left COLONOSCOPY & POLYPECTOMY 04/03/2017 COLONOSCOPY SCREENING 05/06/2021 [facility] COLONOSCOPY W/BIOPSY SINGLE/MULTIPLE 07/26/2010 Diminutive polyp of sigmoid/diverticulosis COLONOSCOPY W/BIOPSY SINGLE/MULTIPLE 09/10/2012 CORONARY ARTERY BYP W/VEIN & ARTERY GRAFT 4 VEIN 04/29/2007 CABG, quadruple grafts CORONARY ARTERY BYPASS GRAFT CORONARY STENT EA VESSEL 02/12/2018 [facility]nergy RCA EGD 05/06/2021 [facility] EGD TRANSORAL BIOPSY SINGLE/MULTIPLE 09/10/2012 EGD W/ BIOPSY SNGL/MLTPL 04/03/2017 [facility] HEART VALVE REPLACEMENT IMPLANTABLE CARDIOVERTER DEFIBRILLATOR INSJ/RPLCMT PERM DFB W/TRNSVNS LDS 1/DUAL CHMBR 06/10/2013 AICD LEFT HEART CATH,PERCUTANEOUS 05/03/2012 Cardiac cath, L heart LEFT HEART CATH,PERCUTANEOUS 04/27/2013 Cardiac cath, L heart LEFT HEART CATH,PERCUTANEOUS 10/07/2015 LEFT HEART CATH,PERCUTANEOUS 07/25/2021 PAST SURGICAL HISTORY OF 09/17/2020 Right Cataract removed REPLACEMENT MITRAL VALVE W/CARDIOPULMONARY BYP 05/17/2013 Mitral valve replacement, IABP TRANSCATH STENT INIT VESSEL,PERCUT 1997 3 PTCAs and stents. 1995 & 1996 TRANSCATH STENT INIT VESSEL,PERCUT 05/02/2009 Transcath stent init vessel percut FAMILY HISTORY Problem Relation Age of Onset Heart Mother of CHF. Diabetes Mother Breast Cancer Mother Heart Father of [place] age 85. CABG 13 yrs. prior Heart [...] on empty stomach, 1/2 hr before meal. lvqmpfunh-wftaqv-mbfsidxd-scop () 16.2-0.1037 -0.0194 mg per tablet Take [...] CONSULT TO PODIATRY. He requested referral to [facility]. 4. Chronic systolic heart [...] ICD9: 564.1, ICD10: K58.9 - Controlled. - [id number]-UEGIWMAH-SCOP 16.2 MG-0.1037 MG-0.0194 MG TABLET 8. Anticoagulated on Coumadin ( home INR testing) - ICD9: V58.61, ICD10: Z79.01 - Monitored. 9. Atherosclerosis of [place] coronary artery of [place] heart without angina pectoris - ICD9: 414.01, ICD10: I25.10 - Stable and followed by [facility]. 10. Essential hypertension - ICD9: 401.9, [...] recommendations. George Mata MD documented in this encounterWayne [facility]12-10-2024 Telephone encounter Note * Telephone Encounter - KristelJonathan hardy [facility] - 07/19/2024 10:09 AM EST [facility] Ambulatory Pharmacy Anticoagulation Clinic Anticoagulation Episode Summary Anticoagulation Care Providers Provider Role Specialty Phone number George Mata MD Responsible Internal Medicine [phone] Bessy Valverde is a 78 year old [...] Pharmacy Anticoagulation Clinic Pharmacy Anticoagulation Clinic Pager: [phone]. [facility]12-10-2024 Miscellaneous Notes* Telephone Encounter - Jonathan Hawkins RPh - 07/19/2024 10:09 AM EST [facility] Ambulatory Pharm[facility] Anticoagulation Clinic Anticoagulation Episode Summary Anticoagulation Care Providers Provider Role Specialty Phone number George Mata MD [facility] Internal Medicine [phone] Bessy Valverde is a 78 year old [...] missed any doses of warfarin. Jonathan Hawkins [facility] Clinical Pharmacist, Pharmacy Anticoagulation Clinic Pharmacy Anticoagulation Clinic Pager: [phone]. documented in this encounterWayne [facility]11-26-2024 Telephone encounter Note * Telephone Encounter - Lian Coulter [facility] - 07/05/2024 8:45 AM EST [facility] Amb[facility] Anticoagulation Clinic Anticoagulation Episode Summary Anticoagulation Care Providers Provider Role Specialty Phone number George Mata MD [facility] Internal Medicine [phone] Bessy Valverde is a 78 year old [...] ALLERGIES No Known Allergies Indication for Warfarin: buttermaker continuous churn (current) use of anticoagulants Permanent atrial fibrillation [...] Pharmacy Anticoagulation Clinic Pharmacy Anticoagulation Clinic Pager: [phone]. [facility]11-26-2024 Miscellaneous Notes* Telephone Encounter - Lian Coulter RPh - 07/05/2024 8:45 AM EST [facility] Ambulatory Pharmacy Anticoagulation Clinic Anticoagulation Episode Summary Anticoagulation Care Providers Provider Role Specialty Phone number George Mata MD Responsible Internal Medicine [phone] Bessy Valverde is a 78 year old [...] ALLERGIES No Known Allergies Indication for Warfarin: buttermaker continuous churn (current) use of anticoagulants Permanent atrial fibrillation [...] Pharmacy Anticoagulation Clinic Pharmacy Anticoagulation Clinic Pager: [phone]. documented in this encounterWayne [facility]11-12-2024 Telephone encounter Note * Telephone Encounter - Jonathan Hawkins RPh - 06/21/2024 8:27 AM EST [facility] Ambulatory [facility] Anticoagulation Clinic Anticoagulation Episode Summary Anticoagulation Care Providers Provider Role Specialty Phone number George Mata MD [facility] Internal Medicine [phone] Bessy Valverde is a 78 year old [...] Pharmacy Anticoagulation Clinic Pharmacy Anticoagulation Clinic Pager: [phone]. [facility]11-12-2024 Miscellaneous Notes* Telephone Encounter - Jonathan Hawkins RPh - 06/21/2024 8:27 AM EST [facility] Ambulatory Pharmacy Anticoagulation Clinic Anticoagulation Episode Summary Anticoagulation Care Providers Provider Role Specialty Phone number George Mata MD [facility] Internal Medicine [phone] Bessy Valverde is a 78 year old [...] Pharmacy Anticoagulation Clinic Pharmacy Anticoagulation Clinic Pager: [phone]. documented in this encounterWayne [facility]10-29-2024 Telephone encounter Note * Telephone Encounter - Jonathan Hawkins RPh - 06/07/2024 8:13 AM EDT [facility] Ambulatory Pharmacy Anticoagulation Clinic Anticoagulation Episode Summary Anticoagulation Care Providers Provider Role Specialty Phone number George Mata MD Responsible Internal Medicine [phone] Bessy Valverde is a 78 year old [...] Pharmacy Anticoagulation Clinic Pharmacy Anticoagulation Clinic Pager: [phone]. [facility]10-29-2024 Miscellaneous Notes* Telephone Encounter - Jonathan Hawkins RPh - 06/07/2024 8:13 AM EDT [facility] Ambulatory Pharmacy Anticoagulation Clinic Anticoagulation Episode Summary Anticoagulation Care Providers Provider Role Specialty Phone number George Mata MD [facility] Internal Medicine [phone] Bessy Valverde is a 78 year old [...] missed any doses of warfarin. Jonathan Hawkins [facility] Clinical Pharmacist, Pharmacy Anticoagulation Clinic Pharmacy Anticoagulation Clinic Pager: [phone]. documented in this encounterWayne [facility]10-15-2024 Telephone encounter Note * Telephone Encounter - Jonathan Hawkins RPh - 05/24/2024 7:59 AM EDT [facility] Ambulatory Pharm[facility] Anticoagulation Clinic Anticoagulation Episode Summary Anticoagulation Care Providers Provider Role Specialty Phone number George Mata MD [facility] Internal Medicine [phone] Bessy Valverde is a 78 year old [...] Pharmacy Anticoagulation Clinic Pharmacy Anticoagulation Clinic Pager: [phone]. [facility]10-15-2024 Miscellaneous Notes* Telephone Encounter - Jonathan Hawkins RPh - 05/24/2024 7:59 AM EDT [facility] Ambulatory Pharm[facility] Anticoagulation Clinic Anticoagulation Episode Summary Anticoagulation Care Providers Provider Role Specialty Phone number George Mata MD Responsible Internal Medicine [phone] Bessy Valverde is a 78 year old [...] Pharmacy Anticoagulation Clinic Pharmacy Anticoagulation Clinic Pager: [phone]. documented in this encounterWayne [facility]10-01-2024 Telephone encounter Note * Telephone Encounter - Elliott Gleason RPh - 05/10/2024 8:01 AM EDT [facility] Ambulatory Pharmacy Anticoagulation Clinic Anticoagulation Episode Summary Anticoagulation Care Providers Provider Role Specialty Phone number George Mata MD Responsible Internal Medicine [phone] Bessy Valverde is a 78 year old [...] ALLERGIES No Known Allergies Indication for Warfarin: buttermaker continuous churn (current) use of anticoagulants Permanent atrial fibrillation [...] Pharmacy Anticoagulation Clinic Pharmacy Anticoagulation Clinic Pager: [phone]. [facility]10-01-2024 Miscellaneous Notes* Telephone Encounter - Elliott Gleason RPh - 05/10/2024 8:01 AM EDT [facility] Ambulatory Pharmacy Anticoagulation Clinic Anticoagulation Episode Summary Anticoagulation Care Providers Provider Role Specialty Phone number George Mata MD [facility] Internal Medicine [phone] Bessy Valverde is a 78 year old [...] ALLERGIES No Known Allergies Indication for Warfarin: buttermaker continuous churn (current) use of anticoagulants Permanent atrial fibrillation [...] Pharmacy Anticoagulation Clinic Pharmacy Anticoagulation Clinic Pager: [phone]. documented in this encounterWayne [facility]09-17-2024 Telephone encounter Note * Telephone Encounter - YfnLian, [facility] - 04/26/2024 9:33 AM EDT [facility] Anticoagulation Episode Summary Anticoagulation Care Providers Provider Role Specialty Phone number George Mata MD Responsible Internal Medicine [phone] Bessy Valverde is a 78 year old [...] ALLERGIES No Known Allergies Indication for Warfarin: buttermaker continuous churn (current) use of anticoagulants Permanent atrial fibrillation [...] Patient denies need for refills. Lian Coulter [facility] Clinical Pharmacist, Pharmacy Anticoagulation Clinic Pharmacy Anticoagulation Clinic Pager: [phone]. [facility]09-17-[facility]24 Miscellaneous Notes* Telephone Encounter - Lian Coulter RPh - 04/26/2024 9:33 AM EDT [facility] Amb[facility] Anticoagulation Episode Summary Anticoagulation Care Providers Provider Role Specialty Phone number George Mata MD [facility] Internal Medicine [phone] Bessy Valverde is a 78 year old [...] ALLERGIES No Known Allergies Indication for Warfarin: halfway (current) use of anticoagulants Permanent atrial fibrillation [...] Pharmacy Anticoagulation Clinic Pharmacy Anticoagulation Clinic Pager: [phone]. documented in this encounterWayne Healthcare [facility]09-03-2024 Telephone encounter Note * Telephone Encounter - Lian Coulter RPh - 04/12/2024 8:57 AM EDT [facility] Anticoagulation Episode Summary Anticoagulation Care Providers Provider Role Specialty Phone number George Mata MD [facility] Internal Medicine [phone] Bessy Valverde is a 78 year old [...] ALLERGIES No Known Allergies Indication for Warfarin: buttermaker continuous churn (current) use of anticoagulants Permanent atrial fibrillation [...] Pharmacy Anticoagulation Clinic Pharmacy Anticoagulation Clinic Pager: [phone]. [facility]09-03-2024 Miscellaneous Notes* Telephone Encounter - Lian Coulter RPh - 04/12/2024 8:57 AM EDT [facility] Ambulatory Pharmacy Anticoagulation Clinic Anticoagulation Episode Summary Anticoagulation Care Providers Provider Role Specialty Phone number George Mata MD [facility] Internal Medicine [phone] Bessy Valverde is a 78 year old [...] ALLERGIES No Known Allergies Indication for Warfarin: halfway (current) use of anticoagulants Permanent atrial fibrillation [...] Pharmacy Anticoagulation Clinic Pharmacy Anticoagulation Clinic Pager: [phone]. documented in this encounterWayne Healthcare [facility] Campus08-20-2024 Telephone encounter Note * Telephone Encounter - Jonathan Hawkins RPh - 03/29/2024 7:56 AM EDT [facility] Ambulatory Pharmacy Anticoagulation Clinic Anticoagulation Episode Summary Anticoagulation Care Providers Provider Role Specialty Phone number George Mata MD Responsible Internal Medicine [phone] Bessy Valverde is a 78 year old [...] Pharmacy Anticoagulation Clinic Pharmacy Anticoagulation Clinic Pager: [phone]. [facility]08-20-2024 Miscellaneous Notes* Telephone Encounter - Jonathan Hawkins RPh - 03/29/2024 7:56 AM EDT [facility] Ambulatory [facility] Anticoagulation Clinic Anticoagulation Episode Summary Anticoagulation Care Providers Provider Role Specialty Phone number George Mata MD Responsible Internal Medicine [phone] Bessy Valverde is a 78 year old [...] Pharmacy Anticoagulation Clinic Pharmacy Anticoagulation Clinic Pager: [phone]. documented in this encounterWayne Healthcare [facility] Campus08-07-2024 Telephone encounter Note * Telephone Encounter [...] Ceja LPN March 16, 2024 3:34 PM [facility]08-07-2024 Miscellaneous Notes* Telephone Encounter - Malu [...] 16, 2024 3:34 PM documented in this encounterWayne Healthcare [facility]08-06-2024 Telephone encounter Note * Telephone Encounter - Jordyn Garcia, [facility] - 03/15/2024 8:01 AM EDT [facility] Ambulatory Pharmacy Anticoagulation Clinic Anticoagulation Episode Summary Anticoagulation Care Providers Provider Role Specialty Phone number George Mata MD Responsible Internal Medicine [phone] Bessy Valverde is a 78 year old [...] Pharmacy Anticoagulation Clinic Pharmacy Anticoagulation Clinic Pager: [phone]. [facility]08-06-2024 Miscellaneous Notes* Telephone Encounter - Jordyn Garcia RPh - 03/15/2024 8:01 AM EDT [facility] Ambulatory Pharm[facility] Anticoagulation Clinic Anticoagulation Episode Summary Anticoagulation Care Providers Provider Role Specialty Phone number George Mata MD [facility] Internal Medicine [phone] Bessy Valverde is a 78 year old [...] Pharmacy Anticoagulation Clinic Pharmacy Anticoagulation Clinic Pager: [phone]. documented in this encounterWayne Healthcare Main Campus07-31-2024 NoteHNO ID: [id number] Author: GEORGE MATA MD Service: ? Author Type: Physician Type: Progress Notes Filed: 03/09/2024 15:38 Note Text: This note was created using nWayriter. Subjective Bessy Valverde is a 78 year old male. He scraped his left arm 1.5 weeks ago, and sustained a skin tear. There was oozing so he applied a bandage over the weekend that has dried up and adhered. His asthma was worsening as it typically did when ragweed was up. Diabetes was increasing. CAD was stable, and he sees his real estate developer tomorrow. 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 mrazznnbc-qwihac-ukpjypnz-scop () 16.2-0.1037 -0.0194 mg per tablet Take [...] 30 mmol/L 24 An (more content not included)...[facility]07-31-2024 History of Present illness Narrative* George Mata MD - 03/09/2024 3:05 PM EDT This note was created using NoteWriter. Subjective Bessy Valverde is a 78 year old male. He scraped his left arm 1.5 weeks ago, and sustained a skin tear. There was oozing so he applied a bandage over the weekend that has dried up and adhered. His asthma was worsening as it typically did when ragweed was up. Diabetes was increasing. CAD was stable, and he sees his real estate developer tomorrow. 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 dysneaava-zsnmxb-beifzedj-scop () 16.2-0.1037 -0.0194 mg per tablet Take [...] - COMPREHENSIVE METABOLIC PANEL 3. Atherosclerosis of [place] coronary artery of [place] heart without angina pectoris - ICD9: 414.01, [...] SCREENING George Mata MD documented in this encounterWayne Healthcare [facility] Campus07-30-2024 Telephone encounter Note * Telephone Encounter - Jonathan Hawkins [facility] - 03/08/2024 7:51 AM EDT [facility] Ambulatory Pharm[facility] Anticoagulation Clinic Anticoagulation Episode Summary Anticoagulation Care Providers Provider Role Specialty Phone number George Mata MD [facility] Internal Medicine [phone] Bessy Valverde is a 78 year old [...] Pharmacy Anticoagulation Clinic Pharmacy Anticoagulation Clinic Pager: [phone]. [facility]07-30-2024 Miscellaneous Notes* Telephone Encounter - Jonathan Hawkins RPh - 03/08/2024 7:51 AM EDT [facility] Ambulatory Pharmacy Anticoagulation Clinic Anticoagulation Episode Summary Anticoagulation Care Providers Provider Role Specialty Phone number George Mata MD [facility] Internal Medicine [phone] Bessy Valverde is a 78 year old [...] Pharmacy Anticoagulation Clinic Pharmacy Anticoagulation Clinic Pager: [phone]. documented in this encounterWayne Healthcare [facility] Campus07-23-2024 Telephone encounter Note * Telephone Encounter - Jonathan Hawkins, [facility] - 03/01/2024 10:46 AM EDT [facility] Ambulatory Pharmacy Anticoagulation Clinic Anticoagulation Episode Summary Anticoagulation Care Providers Provider Role Specialty Phone number George Mata MD Responsible Internal Medicine [phone] Bessy Valverde is a 78 year old [...] Pharmacy Anticoagulation Clinic Pharmacy Anticoagulation Clinic Pager: [phone]. [facility]07-23-2024 Miscellaneous Notes* Telephone Encounter - Jonathan Hawkins RPh - 03/01/2024 10:46 AM EDT [facility] Ambulatory Pharmacy Anticoagulation Clinic Anticoagulation Episode Summary Anticoagulation Care Providers Provider Role Specialty Phone number George Mata MD Responsible Internal Medicine [phone] Bessy Valverde is a 78 year old [...] Pharmacy Anticoagulation Clinic Pharmacy Anticoagulation Clinic Pager: [phone]. documented in this encounterWayne Healthcare [facility] Campus07-10-2024 Telephone encounter Note * Telephone Encounter - Ruma Merchant RPh - 02/17/2024 5:38 PM EDT [facility] Ambulatory Pharmacy Anticoagulation Clinic Anticoagulation Episode Summary Anticoagulation Care Providers Provider Role Specialty Phone number George Mata MD Responsible Internal Medicine [phone] Bessy Valverde is a 78 year old [...] ALLERGIES No Known Allergies Indication for Warfarin: buttermaker continuous churn (current) use of anticoagulants Permanent atrial fibrillation [...] Pharmacy Anticoagulation Clinic Pharmacy Anticoagulation Clinic Pager: [phone]. [facility]07-10-2024 Miscellaneous Notes* Telephone Encounter - Ruma Merchant RPh - 02/17/2024 5:38 PM EDT [facility] Ambulatory Pharmacy Anticoagulation Clinic Anticoagulation Episode Summary Anticoagulation Care Providers Provider Role Specialty Phone number George Mata MD Responsible Internal Medicine [phone] Bessy Valverde is a 78 year old [...] ALLERGIES No Known Allergies Indication for Warfarin: buttermaker continuous churn (current) use of anticoagulants Permanent atrial fibrillation [...] Pharmacy Anticoagulation Clinic Pharmacy Anticoagulation Clinic Pager: [phone]. 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 Gladys Cid LPN * Telephone Encounter - Paola Blue APRN.CNP - 02/02/2024 9:18 AM EDT Patient due for follow-up Paola Blue APRN.OCTAVIO * Telephone Encounter - Yin Hernandez RN [...] 02, 2024 8:12 AM documented in this encounterWayne Healthcare [facility] Campus06-25-2024 Telephone encounter Note * Telephone Encounter - Paola Blue APRN.CNP - 02/02/2024 9:18 AM EDT Patient due for follow-up Paola Blue APRN.SLEEVE TURNER [facility]06-25-2024 Telephone encounter Note* Telephone Encounter - [...] Hernandez RN February 02, 2024 8:12 AM [facility]06-25-2024 Telephone encounter Note* Telephone Encounter - Jonathan Hawkins [facility] - 02/02/2024 7:48 AM EDT [facility] Ambulatory Pharmacy Anticoagulation Clinic Anticoagulation Episode Summary Anticoagulation Care Providers Provider Role Specialty Phone number George Mata MD [facility] Internal Medicine [phone] Bessy Valverde is a 78 year old [...] verbalizes understanding of the plan. Jonathan Hawkins [facility] Clinical Pharmacist, Pharmacy Anticoagulation Clinic Pharmacy Anticoagulation Clinic Pager: [phone]. [facility]06-25-2024 Miscellaneous Notes* Telephone Encounter - Jonathan Hawkins RPh - 02/02/2024 7:48 AM EDT [facility] Ambulatory Pharmacy Anticoagulation Clinic Anticoagulation Episode Summary Anticoagulation Care Providers Provider Role Specialty Phone number George Mata MD [facility] Internal Medicine [phone] Bessy Valverde is a 78 year old [...] Pharmacy Anticoagulation Clinic Pharmacy Anticoagulation Clinic Pager: [phone]. documented in this encounterWayne Healthcare [facility] Campus06-11-2024 Telephone encounter Note * Telephone Encounter - Jonathan Hawkins RPh - 01/19/2024 12:42 PM EDT [facility] Ambulatory Pharmacy Anticoagulation Clinic Anticoagulation Episode Summary Anticoagulation Care Providers Provider Role Specialty Phone number George Mata MD Responsible Internal Medicine [phone] Bessy Valverde is a 78 year old [...] Pharmacy Anticoagulation Clinic Pharmacy Anticoagulation Clinic Pager: [phone]. [facility]06-11-2024 Miscellaneous Notes* Telephone Encounter - Jonathan Hawkins RPh - 01/19/2024 12:42 PM EDT [facility] Ambulatory Pharmacy Anticoagulation Clinic Anticoagulation Episode Summary Anticoagulation Care Providers Provider Role Specialty Phone number George Mata MD Responsible Internal Medicine [phone] Bessy Valverde is a 78 year old [...] Pharmacy Anticoagulation Clinic Pharmacy Anticoagulation Clinic Pager: [phone]. documented in this encounterWayne Healthcare [facility] Campus05-28-2024 Telephone encounter Note * Telephone Encounter - Jonathan Hawkins RPh - 01/05/2024 8:01 AM EDT [facility] Ambulatory Pharmacy Anticoagulation Clinic Anticoagulation Episode Summary Anticoagulation Care Providers Provider Role Specialty Phone number George Mata MD Responsible Internal Medicine [phone] Bessy Valverde is a 78 year old [...] Pharmacy Anticoagulation Clinic Pharmacy Anticoagulation Clinic Pager: [phone]. [facility]05-28-2024 Miscellaneous Notes* Telephone Encounter - Jonathan Hawkins RPh - 01/05/2024 8:01 AM EDT [facility] Ambulatory Pharmacy Anticoagulation Clinic Anticoagulation Episode Summary Anticoagulation Care Providers Provider Role Specialty Phone number George Mata MD Responsible Internal Medicine [phone] Bessy Valverde is a 78 year old [...] Pharmacy Anticoagulation Clinic Pharmacy Anticoagulation Clinic Pager: [phone]. documented in this encounterWayne Healthcare [facility]05-14-2024 Telephone encounter Note * Telephone Encounter - Jonathan Hawkins RPh - 12/22/2023 8:08 AM EDT [facility] Ambulatory Pharmacy Anticoagulation Clinic Anticoagulation Episode Summary Anticoagulation Care Providers Provider Role Specialty Phone number George Mata MD Responsible Internal Medicine [phone] Bessy Valverde is a 78 year old [...] Pharmacy Anticoagulation Clinic Pharmacy Anticoagulation Clinic Pager: [phone]. [facility]05-14-2024 Miscellaneous Notes* Telephone Encounter - Jonathan Hawkins RPh - 12/22/2023 8:08 AM EDT [facility] Ambulatory Pharmacy Anticoagulation Clinic Anticoagulation Episode Summary Anticoagulation Care Providers Provider Role Specialty Phone number George Mata MD Responsible Internal Medicine [phone] Bessy Valverde is a 78 year old [...] Pharmacy Anticoagulation Clinic Pharmacy Anticoagulation Clinic Pager: [phone]. 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 documented in this encounterWayne Healthcare [facility] Campus04-16-2024 Miscellaneous Notes* Telephone Encounter - Lian Coulter RP - 11/24/2023 8:23 AM EDT [facility] Ambulatory Pharmacy Anticoagulation Clinic Anticoagulation Episode Summary Anticoagulation Care Providers Provider Role Specialty Phone number George Mata MD Responsible Internal Medicine [phone] Bessy Valverde is a 77 year old [...] ALLERGIES No Known Allergies Indication for Warfarin: halfway (current) use of anticoagulants Permanent atrial fibrillation [...] Patient denies need for refills. Lian Coulter [facility] Clinical Pharmacist, Pharmacy Anticoagulation Clinic Pharmacy Anticoagulation Clinic Pager: [phone]. documented in this encounterWayne Healthcare [facility] Campus04-05-2024 Miscellaneous Notes* Telephone Encounter - Ewa Manzo RPh - 11/13/2023 2:03 PM EDT [facility] Ambulatory Pharmacy Anticoagulation Clinic Anticoagulation Episode Summary Anticoagulation Care Providers Provider Role Specialty Phone number George Mata MD [facility] Internal Medicine [phone] Bessy Valverde is a 77 year old [...] ALLERGIES No Known Allergies Indication for Warfarin: buttermaker continuous churn (current) use of anticoagulants Permanent atrial fibrillation [...] Pharmacy Anticoagulation Clinic Pharmacy Anticoagulation Clinic Pager: [phone]. * Telephone Encounter - Zenobia (Instrument Repair Technician)Yin - 11/13/2023 9:51 AM EDT PATIENT CALL [...] 7 days. Spouse can be reached at [phone]. PT INR (no units) Date Value 11/19/2021 2.7 biotel 11/05/2021 2.5 10/22/2021 2.8 biotel INR Home CoaguChek (no units) Date Value 11/13/2023 3.4 11/10/2023 3.2 10/27/2023 2.8 Yin Fregoso ([employer]) documented in this encounterWayne Healthcare [facility] Campus04-02-2024 Instructions* Patient Instructions* George Mata MD - 11/10/2023 12:11 PM EDT RECHECK YOUR COUMADIN LEVEL IN 3 DAYS. documented in this encounterWayne Healthcare Main Campus04-02-2024 History of Present illness Narrative* George Mata MD - 11/10/2023 11:57 AM EDT This note was created using nWayriter. 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 ayvfovcsv-hexwhb-tqjzkjtp-scop () 16.2-0.1037 -0.0194 mg per tablet Take [...] drainage. George Mata MD documented in this encounterWayne Healthcare [facility] Campus04-02-2024 Miscellaneous Notes* Telephone Encounter - Jonathan Hawkins [facility] - 11/10/2023 8:15 AM EDT [facility] Ambulatory Pharmacy Anticoagulation Clinic Anticoagulation Episode Summary Anticoagulation Care Providers Provider Role Specialty Phone number George Mata MD Responsible Internal Medicine [phone] Bessy Valverde is a 77 year old [...] Pharmacy Anticoagulation Clinic Pharmacy Anticoagulation Clinic Pager: [phone]. documented in this encounterWayne Healthcare [facility] Campus03-19-2024 Miscellaneous Notes* Telephone Encounter - Jonathan Hawkins RPh - 10/27/2023 11:18 AM EDT [facility] Ambulatory Pharmacy Anticoagulation Clinic Anticoagulation Episode Summary Anticoagulation Care Providers Provider Role Specialty Phone number George Mata MD [facility] Internal Medicine [phone] Bessy Valverde is a 77 year old [...] Pharmacy Anticoagulation Clinic Pharmacy Anticoagulation Clinic Pager: [phone]. documented in this encounterWayne Healthcare [facility] Campus03-05-2024 Miscellaneous Notes* Telephone Encounter - Jonathan Hawkins RPh - 10/13/2023 7:48 AM EST [facility] Ambulatory Pharmacy Anticoagulation Clinic Anticoagulation Episode Summary Anticoagulation Care Providers Provider Role Specialty Phone number George Mata MD Responsible Internal Medicine [phone] Bessy Valverde is a 77 year old [...] Pharmacy Anticoagulation Clinic Pharmacy Anticoagulation Clinic Pager: [phone]. documented in this encounterWayne Healthcare [facility] Campus02-20-2024 Miscellaneous Notes* Telephone Encounter - Jonathan Hawkins RPh - 09/29/2023 8:01 AM EST [facility] Ambulatory Pharmacy Anticoagulation Clinic Anticoagulation Episode Summary Anticoagulation Care Providers Provider Role Specialty Phone number George Mata MD Responsible Internal Medicine [phone] Bessy Valverde is a 77 year old [...] Pharmacy Anticoagulation Clinic Pharmacy Anticoagulation Clinic Pager: [phone]. 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 Plan: Current Warfarin Dosing As of 09/15/2023 Full warfarin instructions: 2/7: 2.5 mg; Otherwise 5 mg every Mon, Wed, Fri; 2.5 mg all other days Called and spoke to patient/caregiver Advised patient to decrease dose for 1 day only then resume weekly regimen Next home INR check scheduled on 09/29/2023 Patient verbalizes understanding of the plan. Jonathan Hawkins RPh Clinical Pharmacist, Pharmacy Anticoagulation Clinic Pharmacy Anticoagulation Clinic Pager: [phone]. documented in this encounterWayne Healthcare [facility] Campus11-28-2023 Miscellaneous Notes* Telephone Encounter - Jonathan Hawkins RPh - 07/07/2023 7:53 AM EST [facility] Ambulatory Pharmacy Anticoagulation Clinic Anticoagulation Episode Summary Anticoagulation Care Providers Provider Role Specialty Phone number George Mata MD Responsible Internal Medicine [phone] Bessy Valverde is a 77 year old [...] Pharmacy Anticoagulation Clinic Pharmacy Anticoagulation Clinic Pager: [phone]. 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 documented in this encounterWayne Healthcare [facility] Campus10-31-2023 Miscellaneous Notes* Telephone Encounter - Jonathan Hawkins RPh - 06/09/2023 8:25 AM EDT [facility] Anticoagulation Episode Summary Anticoagulation Care Providers Provider Role Specialty Phone number George Mata MD [facility] Internal Medicine [phone] Bessy Valverde is a 77 year old [...] Pharmacy Anticoagulation Clinic Pharmacy Anticoagulation Clinic Pager: [phone]. documented in this encounterWayne Healthcare Main Campus10-09-2023 Miscellaneous Notes* Telephone Encounter - Topher Daphneyseth Etienne LPN - 05/18/2023 10:41 AM EDT Patient [...] pharmacy. No need to notify patient. Chantel Suárez documented in this encounterWayne Healthcare Main Campus09-05-2023 Miscellaneous Notes* Telephone Encounter - Jonathan Hawkins RPh - 04/14/2023 7:49 AM EDT [facility] Amb[facility] Anticoagulation Clinic Anticoagulation Episode Summary Anticoagulation Care Providers Provider Role Specialty Phone number George Mata MD [facility] Internal Medicine [phone] Bessy Valverde is a 77 year old [...] 04/28/2023 Patient verbalizes understanding of the plan. Joanthan Hawkins RPh Clinical Pharmacist, Pharmacy Anticoagulation Clinic Pharmacy Anticoagulation Clinic Pager: [phone]. documented in this encounterWayne Healthcare Main Campus08-22-2023 Miscellaneous Notes* Telephone Encounter - Jonathan Hawkins, Jasmin - 03/31/2023 7:59 AM EDT [facility] Anticoagulation Episode Summary Anticoagulation Care Providers Provider Role Specialty Phone number George Mata MD Responsible Internal Medicine [phone] Bessy Valverde is a 77 year old [...] Pharmacy Anticoagulation Clinic Pharmacy Anticoagulation Clinic Pager: [phone]. documented in this encounterWayne Healthcare Main Campus08-08-2023 Miscellaneous Notes* Telephone Encounter - Jonathan Hawkins RPh - 03/17/2023 8:05 AM EDT [facility] Ambulatory [facility] Anticoagulation Clinic Anticoagulation Episode Summary Anticoagulation Care Providers Provider Role Specialty Phone number George Mata MD [facility] Internal Medicine [phone] Bessy Valverde is a 77 year old [...] Pharmacy Anticoagulation Clinic Pharmacy Anticoagulation Clinic Pager: [phone]. documented in this encounterWayne Healthcare Main Campus07-27-2023 Miscellaneous Notes* Telephone Encounter - Shruthi Osborne MA - 03/05/2023 7:19 PM EDT Confirmed with pharmacy received RX. Attempted to contact patient. Unable to reach. Left detailed message on . Shruthi Osborne MA * Telephone Encounter - George Mata MD - 03/05/2023 5:12 PM EDT Patient's request for medication is as follows Requested Prescriptions Signed Prescriptions Disp Refills nsspnntas-zxlfpi-ymrcksfk-scop () 16.2-0.1037 -0.0194 mg per tablet 240 [...] the Rx. Please advise. documented in this encounterWayne Healthcare Main Campus07-11-2023 Miscellaneous Notes* Telephone Encounter - Jonathan Hawkins, [facility] - 02/17/2023 9:24 AM EDT [facility] Clinic Anticoagulation Episode Summary Anticoagulation Care Providers Provider Role Specialty Phone number George Mata MD [facility] Internal Medicine [phone] Bessy Valverde is a 77 year old [...] verbalizes understanding of the plan. Jonathan Hawkins [facility] Clinical Pharmacist, Pharmacy Anticoagulation Clinic Pharmacy Anticoagulation Clinic Pager: [phone]. documented in this encounterWayne Healthcare Main Campus06-27-2023 Miscellaneous Notes* Telephone Encounter - Lian Coulter [facility] - 02/03/2023 7:37 AM EDT [facility] Ambulatory [facility] Anticoagulation Clinic Anticoagulation Episode Summary Anticoagulation Care Providers Provider Role Specialty Phone number George Mata MD Responsible Internal Medicine [phone] Bessy Valverde is a 77 year old [...] Indication for Warfarin: Permanent atrial fibrillation (hcc) buttermaker continuous churn (current) use of anticoagulants Anticoagulation Episode Summary [...] Pharmacy Anticoagulation Clinic Pharmacy Anticoagulation Clinic Pager: [phone]. documented in this encounterWayne Healthcare Main Campus06-21-2023 Miscellaneous Notes* Telephone Encounter - Daphney Obando LPN - 01/28/2023 1:03 PM EDT Below results left on identified vm. Daphney Obando LPN * Telephone Encounter - Daphney Obando LPN - 01/28/2023 1:01 PM EDT ----- Message from George Mata MD sent at 01/28/2023 12:58 PM EDT ----- Diabetes controlled. CKD stable. .Continue current treatments. documented in this encounterWayne Healthcare Main Campus06-16-2023 Instructions* Patient Instructions* George Mata MD - 01/23/2023 9:29 AM EDT BLOOD WORK TODAY. FASTING BLOOD WORK AND URINE TEST IN July. documented in this encounterWayne Healthcare Main Campus06-16-2023 History of Present illness Narrative* George Mata MD - 01/23/2023 9:16 AM EDT This note was created using FilterSure. Subjective Bessy aVlverde is a 77 year old male. He just saw his real estate developer and had a good report. 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 yffldevpn-rfoeos-vazagpqr-scop () 16.2-0.1037 -0.0194 mg per tablet Take [...] Controlled. George Mata MD documented in this encounterWayne Healthcare Main Campus05-30-2023 Miscellaneous Notes* Telephone Encounter - Jonathan Hawkins [facility] - 01/06/2023 9:40 AM EDT [facility] Ambulatory [facility] Anticoagulation Clinic Anticoagulation Episode Summary Anticoagulation Care Providers Provider Role Specialty Phone number George Mata MD Responsible Internal Medicine [phone] Bessy Valverde is a 77 year old [...] Pharmacy Anticoagulation Clinic Pharmacy Anticoagulation Clinic Pager: [phone]. documented in this encounterWayne Healthcare Main Campus05-16-2023 Miscellaneous Notes* Telephone Encounter - Jordyn Garcia RPh - 12/23/2022 9:05 AM EDT [facility] Ambulatory [facility] Anticoagulation Clinic Anticoagulation Episode Summary Anticoagulation Care Providers Provider Role Specialty Phone number George Mata MD [facility] Internal Medicine [phone] Bessy Valverde is a 77 year old [...] Pharmacy Anticoagulation Clinic Pharmacy Anticoagulation Clinic Pager: [phone]. documented in this encounterWayne Healthcare Main Campus05-02-2023 Miscellaneous Notes* Telephone Encounter - Jonathan Hawkins RPh - 12/09/2022 9:00 AM EDT [facility] Ambulatory Pharmacy Anticoagulation Clinic Anticoagulation Episode Summary Anticoagulation Care Providers Provider Role Specialty Phone number George Mata MD Responsible Internal Medicine [phone] Bessy Valverde is a 76 year old [...] Pharmacy Anticoagulation Clinic Pharmacy Anticoagulation Clinic Pager: [phone]. documented in this encounterWayne Healthcare Main Campus03-21-2023 Miscellaneous Notes* Telephone Encounter - Jonathan Hawkins RPh - 10/28/2022 8:12 AM EDT [facility] Ambulatory [facility] Anticoagulation Clinic Anticoagulation Episode Summary Anticoagulation Care Providers Provider Role Specialty Phone number George Mata MD Responsible Internal Medicine [phone] Bessy Valverde is a 76 year old [...] Pharmacy Anticoagulation Clinic Pharmacy Anticoagulation Clinic Pager: [phone]. documented in this encounterWayne Healthcare Main Campus02-21-2023 Miscellaneous Notes* Telephone Encounter - Jonathan Hawkins RPh - 09/30/2022 8:05 AM EST [facility] Ambulatory [facility] Anticoagulation Clinic Anticoagulation Episode Summary Anticoagulation Care Providers Provider Role Specialty Phone number George Mata MD Responsible Internal Medicine [phone] Bessy Valverde is a 76 year old [...] Pharmacy Anticoagulation Clinic Pharmacy Anticoagulation Clinic Pager: [phone]. documented in this encounterWayne Healthcare Main Campus02-07-2023 Miscellaneous Notes* Telephone Encounter - Jonathan Hawkins RPh - 09/16/2022 8:55 AM EST [facility] Ambulatory [facility] Anticoagulation Clinic Anticoagulation Episode Summary Anticoagulation Care Providers Provider Role Specialty Phone number George Mata MD Responsible Internal Medicine [phone] Bessy Valverde is a 76 year old [...] Pharmacy Anticoagulation Clinic Pharmacy Anticoagulation Clinic Pager: [phone]. documented in this encounterWayne Healthcare Main Campus01-24-2023 Miscellaneous Notes* Telephone Encounter - Jonathan Hawkins RPh - 09/02/2022 8:38 AM EST [facility] Ambulatory [facility] Anticoagulation Clinic Anticoagulation Episode Summary Anticoagulation Care Providers Provider Role Specialty Phone number George Mata MD [facility] Internal Medicine [phone] Bessy Valverde is a 76 year old [...] Pharmacy Anticoagulation Clinic Pharmacy Anticoagulation Clinic Pager: [phone]. documented in this encounterWayne Healthcare Main Campus01-16-2023 Miscellaneous Notes* Telephone Encounter - Daphney Obando LPN - 08/25/2022 12:36 PM EST Reports faxed to below. 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 Mata office. Bety Vigil * Telephone Encounter - George Mata MD - 08/22/2022 1:03 PM EST ASSESSMENT/PLAN: 1. PAD (peripheral artery disease) (HCC) - ICD9: 443.9, ICD10: I73.9 - CONSULT TO VASCULAR MEDICINE George Mata MD * Telephone Encounter - Emily Ramirez - 08/21/2022 10:[address] orders for Vascular Medicine. Emily SUÁREZ * Telephone Encounter - Daphney Obando LPN - 08/21/2022 9:43 AM EST Patient given below recommendation, verbalized understanding. PSS please contact Patient to schedule vascular consult. Daphney Obando LPN * Telephone Encounter - George Mata MD - 08/21/2022 8:20 AM EST No apparent decreased flow but examination is limited by hardened arteries. Consider vascular medicine consult or discuss this issues with his real estate developer. * Telephone Encounter - Susi Jang RN - 08/20/2022 11:29 AM EST Pt asking if PCP would advise on arterial study results from 08/12/22. Thank you. documented in this encounterWayne Healthcare Main Campus01-13-2023 Miscellaneous Notes* Telephone Encounter - Bety Vigil - 08/22/2022 3:27 PM EST Called patient to schedule with Vascular and patient prefers to have his test results from the [facility] that was done here on 08-12-22 faxed to Brionna Gant / his [employer] Service [employer] office; [address] [place] [address] Bety Vigil documented in this encounterWayne Healthcare Main Campus01-10-2023 Miscellaneous Notes* Telephone Encounter - Jonathan Hawkins [facility] - 08/19/2022 7:32 AM EST [facility] Ambulatory Pharmacy Anticoagulation Clinic Anticoagulation Episode Summary Anticoagulation Care Providers Provider Role Specialty Phone number George Mata MD Responsible Internal Medicine [phone] Bessy Valverde is a 76 year old [...] Pharmacy Anticoagulation Clinic Pharmacy Anticoagulation Clinic Pager: [phone]. documented in this encounterWayne Healthcare Main Campus12-27-2022 Miscellaneous Notes* Telephone Encounter - Heriberto [...] Obando LPN * Telephone Encounter - Tonja Julien Pss - 08/05/2022 8:17 AM EST Patient requesting a refill of prednisone for gout; not on current med list. [facility] [place]. Please advise him at [phone] if/when approved. documented in this encounterWayne Healthcare Main Campus12-27-2022 Miscellaneous Notes* Telephone Encounter - Jordyn Garcia [facility] - 08/05/2022 10:48 AM EST [facility] Ambulatory Pharm[facility] Anticoagulation Clinic Anticoagulation Episode Summary Anticoagulation Care Providers Provider Role Specialty Phone number George Mata MD [facility] Internal Medicine [phone] Bessy Valverde is a 76 year old [...] Pharmacy Anticoagulation Clinic Pharmacy Anticoagulation Clinic Pager: [phone]. documented in this encounterWayne Healthcare Main Campus12-17-2022 Miscellaneous Notes* Telephone Encounter - Daphney Obando LPN - 07/26/2022 10:34 AM EST notified of below results. Daphney Obando LPN * Telephone Encounter - Daphney Obando LPN - 07/26/2022 10:33 AM EST ----- Message from George Mata MD sent at 07/26/2022 10:14 AM EST ----- Test results are okay. DM and lipids controlled. Stable kidney disease. documented in this encounterWayne Healthcare Main Campus12-15-2022 Instructions* Patient Instructions* George Mata MD - 07/24/2022 1:52 PM EST Have you ever planned for future healthcare decisions with a power of finance attorney, living will, or advance directives? Yes. Have you shared those records with your doctor? No and No. Please bring a copyto your next appointment or email to documented in this encounterWayne Healthcare Main Campus12-15-2022 History of Present illness Narrative* George Mata MD - 07/24/2022 1:22 PM EST This note was created using nWayriter. 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/22/2007 Pure hypercholesterolemia Status post implantation of automatic cardioverter/defibrillator (AICD) 06/17/2013 Status post mitral valve replacement 06/17/2013 Unspecified cardiovascular disease Unspecified essential hypertension Ventricular tachycardia 06/17/2013 PAST SURGICAL HISTORY Procedure Laterality Date AICD, DUAL CHAMBER 10/29/2015 dual lead AICD APPENDECTOMY 1993 [facility] INCL FLUOR GDNCE DX W/CELL WASHG SPX 02/04/2013 BRONCHOSCOPY CARDIAC CATH 12/16/2017 [facility] CARDIAC CATH 12/14/2018 Right & Left COLONOSCOPY & POLYPECTOMY 04/03/2017 COLONOSCOPY SCREENING 05/06/2021 [facility] COLONOSCOPY W/BIOPSY SINGLE/MULTIPLE 07/26/2010 Diminutive polyp of sigmoid/diverticulosis COLONOSCOPY W/BIOPSY SINGLE/MULTIPLE 09/10/2012 CORONARY ARTERY BYP W/VEIN & ARTERY GRAFT 4 VEIN 04/29/2007 CABG, quadruple grafts CORONARY ARTERY BYPASS GRAFT CORONARY STENT EA VESSEL 02/12/2018 [facility] RCA EGD 05/06/2021 [facility] EGD TRANSORAL BIOPSY SINGLE/MULTIPLE 09/10/2012 EGD W/ BIOPSY SNGL/MLTPL 04/03/2017 [facility] HEART VALVE REPLACEMENT IMPLANTABLE CARDIOVERTER DEFIBRILLATOR [...] COVID-19 original vaccine, age 12+ yr, monovalent ([employer] - FRANCIS TOP) 08/22/2021 01/22/2022 COVID-19 original vaccine, age 12+ yr, monovalent ([employer] - PURPLE TOP) 10/11/2020 11/01/2020 Influenza Seasonal [...] Known Allergies Current Outpatient Medications Medication Sig ovgvfrqfn-fhevpk-xvlldydt-scop () 16.2-0.1037 -0.0194 mg per tablet Take [...] J84.9 Stable. Seeing pulmonary. 6. Atherosclerosis of [place] coronary artery of [place] heart without angina pectoris - ICD9: 414.01, ICD10: I25.10 Stable. 7. Controlled type 2 diabetes mellitus with stage 3 chronic kidney disease, without long-term current use of insulin ([facility]) - ICD9: 250.40, 585.3, ICD10: E11.22, N18.30 Controlled. - Continue current medications 8. Chronic systolic heart failure ([facility]) - ICD9: 428.22, ICD10: I50.22 Stable. - BUMETANIDE 1 MG TABLET 9. PAD (peripheral artery disease) ([facility]) - ICD9: 443.9, ICD10: I73.9 Claudication ~ 100 feet. - PVR ANK PRESS [facility] 10. Need for COVID-19 vaccine - ICD9: V04.89, ICD10: Z23 - [employer] COVID-19 BIVALENT BOOSTER VACCINE, AGE 12+ YR 11. Left knee pain, unspecified chronicity - ICD9: 719.46, ICD10: M25.562 DJD versus strain. Try OTC topical analgesics as needed. George Mata MD documented in this encounterWayne Healthcare Main Campus12-13-2022 Miscellaneous Notes* Telephone Encounter - Jonathan Hawkins [facility] - 07/22/2022 7:49 AM EST [facility] Ambulatory Pharmacy Anticoagulation Clinic Anticoagulation Episode Summary Anticoagulation Care Providers Provider Role Specialty Phone number George Mata MD Responsible Internal Medicine [phone] Bessy Valverde is a 76 year old [...] Pharmacy Anticoagulation Clinic Pharmacy Anticoagulation Clinic Pager: [phone]. documented in this encounterWayne Healthcare Main Campus11-15-2022 Miscellaneous Notes* Telephone Encounter - Jonathan Hawkins RPh - 06/24/2022 9:15 AM EST [facility] Ambulatory Pharmacy Anticoagulation Clinic Anticoagulation Episode Summary Anticoagulation Care Providers Provider Role Specialty Phone number George Mata MD Responsible Internal Medicine [phone] Bessy Valverde is a 76 year old [...] Pharmacy Anticoagulation Clinic Pharmacy Anticoagulation Clinic Pager: [phone]. documented in this encounterWayne Healthcare Main Campus11-11-2022 Miscellaneous Notes* Telephone Encounter - Paola Young APRN.CNP - 06/20/2022 9:11 AM EST PDMP website checked and validated. All prescriptions have been APPROPRIATELY filled. No suspiciousactivity was identified. 06/20/2022 by Paola Young APRN.CNP * Telephone Encounter - Daphnye Obando LPN - 06/19/2022 3:37 PM EST Patient has been identified by name and date of : Yes Patient phones for refill(s): Requested Prescriptions Pending Prescriptions Disp Refills bjjwsfljp-xojnhu-iudjrvsy-scop () 16.2-0.1037 -0.0194 mg per tablet 240 [...] LPN * Telephone Encounter - Rosalia Murdock Pss - 06/19/2022 1:16 PM EST Patient has been identified by name and date of : Yes Last office visit in this department: 01/22/2022 RX INSTRUCTIONS: Patient aware RX escripted to mail away pharmacy. No need to notify patient. Patient phones requesting refills as follows: Requested Prescriptions Pending Prescriptions Disp Refills vrmhjqafc-jowdia-hpfldqdh-scop () 16.2-0.1037 -0.0194 mg per tablet 240 tablet 0 Sig: Take 1 tablet by mouth every 6 hours as needed. Please review and advise. 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 documented in this encounterWayne Healthcare Main Campus10-10-2022 Miscellaneous Notes* Telephone Encounter - Sol Rodriguezgladis CUI - 05/19/2022 1:39 PM EDT Patient [place] returned call and said it would cost them 60 dollars or more just to get a paratransit driver, they are javon and can not drive. She said she will just have watch his diet more closely.She understands what the SEAT MENDER said about the prednisone. * Telephone Encounter [...] feet are bothering him from gout. Requesting [facility] Pharmacy in [place]. Please call with update. Thank you. PH: [phone]. documented in this encounterWayne Healthcare Main Campus10-05-2022 Miscellaneous Notes* Telephone Encounter - Zuleyma [...] tablet 1 Si.5 mg every Thu, Thu, Nannette; 5 mg all other days ENTRESTO 24-26 mg tablet Sig: Take 1 tablet by mouth twice daily. spironolactone (ALDACTONE) 25 mg tablet Sig: Take 1 tablet by mouth once daily. RX INSTRUCTIONS: Patient aware RX will be sent to pharmacy. No need to notify patient. 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 documented in this encounterWayne Healthcare [facility] Campus09-20-2022 Miscellaneous Notes* Telephone Encounter - Jonathan Hawkins RPh - 04/29/2022 9:21 AM EDT [facility] Ambulatory Pharmacy Anticoagulation Clinic Anticoagulation Episode Summary Anticoagulation Care Providers Provider Role Specialty Phone number George Mata MD Responsible Internal Medicine [phone] Bessy Valverde is a 76 year old [...] Pharmacy Anticoagulation Clinic Pharmacy Anticoagulation Clinic Pager: [phone]. documented in this encounterWayne Healthcare Main Campus09-12-2022 Miscellaneous Notes* Telephone Encounter - Catrachito [...] asking for prednisone order be sent to [facility] Pharmacy. Order pended. Dr. Mata and SLEEVE TURNER both out today. Sending to on-call per request. Please review and advise, Lisbet Downs RN documented in this encounterWayne Healthcare Main Campus08-23-2022 Miscellaneous Notes* Telephone Encounter - Jonathan Hawkins, [facility] - 04/01/2022 7:58 AM EDT [facility] Ambulatory Pharmacy Anticoagulation Clinic Anticoagulation Episode Summary Anticoagulation Care Providers Provider Role Specialty Phone number George Mata MD Responsible Internal Medicine [phone] Bessy Valverde is a 76 year old [...] Full warfarin instructions: 2.5 mg every Sun, Tue, Nannette; 5 mg all other days Called and spoke to patient/caregiver Advised patient to continue current weekly dose as noted above Next home INR check scheduled on 04/15/2022 Patient verbalizes understanding of the plan. Jonathan Hawkins RPh Clinical Pharmacist, Pharmacy Anticoagulation Clinic Pharmacy Anticoagulation Clinic Pager: [phone]. documented in this encounterWayne Healthcare Main Campus08-09-2022 Miscellaneous Notes* Telephone Encounter - Jonathan Hawkins RPh - 03/18/2022 10:05 AM EDT [facility] Ambulatory [facility]acy Anticoagulation Clinic Anticoagulation Episode Summary Anticoagulation Care Providers Provider Role Specialty Phone number George Mata MD Responsible Internal Medicine [phone] Bessy Valverde is a 76 year old [...] Pharmacy Anticoagulation Clinic Pharmacy Anticoagulation Clinic Pager: [phone]. [facility]22 Miscellaneous Notes* Telephone Encounter - Jordyn Garcia RPh - 03/04/2022 8:34 AM EDT [facility] Anticoagulation Episode Summary Anticoagulation Care Providers Provider Role Specialty Phone number George Mata MD Responsible Internal Medicine [phone] Bessy Valverde is a 76 year old [...] Pharmacy Anticoagulation Clinic Pharmacy Anticoagulation Clinic Pager: [phone] . documented in this encounterWay[facility]07-12-2022 Miscellaneous Notes* Telephone Encounter - Jonathan Hawkins RPh - 02/18/2022 9:05 AM EDT [facility] Clinic Anticoagulation Episode Summary Anticoagulation Care Providers Provider Role Specialty Phone number George Mata MD [facility] Internal Medicine [phone] Bessy Valverde is a 76 year old [...] mg (5 mg x 0.5) every Thu, Thu, Thu; 5 mg (5 mg x 1) all other days Called and spoke to patient/caregiver spouse Advised patient to continue current weekly dose as noted above Next home INR check scheduled on 03/04/2022 Patient's caregiver verbalizes understanding of the plan. Jonathan Hawkins RPh Clinical Pharmacist, Pharmacy Anticoagulation Clinic Pharmacy Anticoagulation Clinic Pager: [phone] . documented in this encounterWay[facility]06-28-2022 Miscellaneous Notes* Telephone Encounter - Jonathan Hawkins RPh - 02/04/2022 8:35 AM EDT [facility] Clinic Anticoagulation Episode Summary Anticoagulation Care Providers Provider Role Specialty Phone number George Mata MD Responsible Internal Medicine [phone] Bessy Valverde is a 76 year old [...] Pharmacy Anticoagulation Clinic Pharmacy Anticoagulation Clinic Pager: [phone] . documented in this encounterWay[facility]05-17-2022 Miscellaneous Notes* Telephone Encounter - Jonathan Hawkins RPh - 12/24/2021 9:52 AM EDT [facility] Ambulatory [facility] An[facility] Clinic Anticoagulation Episode Summary Anticoagulation Care Providers Provider Role Specialty Phone number George Mata MD [facility] Internal Medicine [phone] Bessy Valverde is a 76 year old [...] INR check scheduled on 01/07/2022 Jonathan Hawkins [facility] Clinical Pharmacist, Pharmacy Anticoagulation Clinic Pharmacy Anticoagulation Clinic Pager: [phone] . documented in this encounterWay[facility]05-03-2022 Miscellaneous Notes* Telephone Encounter - Roberth Howell RPh - 12/10/2021 9:27 AM EDT [facility] Clinic Anticoagulation Episode Summary Anticoagulation Care Providers Provider Role Specialty Phone number George Mata MD Responsible Internal Medicine [phone] Bessy Valverde is a 75 year old [...] Indication for Warfarin: Permanent atrial fibrillation (hcc) halfway (current) use of anticoagulants Anticoagulation Episode Summary Current INR goal: 2.0-3.0 Assessment: INR result of 2.7 is therapeutic Plan: Called and spoke to patient/caregiver Advised patient to continue current weekly dose Next point of care INR check scheduled on 12/24/2021 Patient verbalizes understanding of the plan. Patient denies need for refills. Roberth Howell RPh Clinical Pharmacist, Pharmacy Anticoagulation Clinic Pharmacy Anticoagulation Clinic Pager: [phone] . * Telephone Encounter - Roberth Howell RPh - 12/10/2021 9:12 AM EDT Patient due to test INR today. Will continue to monitor for results. Roberth Howell RPh documented in this encounterWayne [facility]04-22-2022 Miscellaneous Notes* Telephone Encounter - Paola Young APRN.CNP - 11/29/2021 8:43 AM EDT PDMP website checked and validated. All prescriptions have been APPROPRIATELY filled. No suspiciousactivity was identified. 11/29/2021 by Paola Young APRN.CNP * Telephone Encounter - Irene Garcia LPN - 11/28/2021 9:27 AM EDT Last see pcp 08/15/21 Next appt with pcp 01/17/22. * Telephone Encounter - Alpa Suárez - 11/28/2021 8:48 AM EDT Patient has been identified by name and date of : Yes Pending Prescriptions Disp Refills WARFARIN 5 MG TABLET 90 tablet 1 Si.5 mg every Thu, Thu, Thu; 5 mg all other days KRISTINA: No [id number]-[id number]-SCOP 16.2 MG-0.1037 MG-0.0194 MG TABLET 240 tablet 0 Sig: Take 1 tablet by mouth every 6 hours as needed. KRISTINA: No RX INSTRUCTIONS: Patient aware RX will be sent to pharmacy. No need to notify patient. Patient aware RX escripted to mail away pharmacy. No need to notify patient. Alpa Suárez documented in this encounterWayne [facility] Campus03-29-2022 Miscellaneous Notes* Telephone Encounter - Jonathan Hawkins RPh - 11/05/2021 8:26 AM EDT [facility] Ambulatory [facility] Anticoagulation Clinic Anticoagulation Episode Summary Anticoagulation Care Providers Provider Role Specialty Phone number George Mata MD Responsible Internal Medicine [phone] Bessy Valverde is a 75 year old [...] Pharmacy Anticoagulation Clinic Pharmacy Anticoagulation Clinic Pager: [phone] . documented in this encounterWayne [facility]03-17-2022 Hospital Discharge instructions Patient Education 10/24/2021 [...] Document Reviewed: 07/28/2014 ExitCare Patient Information 2015 [employer]. This information is not intended to replace [...] until you are awake and alert. Take mxnk-nyw-awkmkes and prescription medicines only as told by [...] 05/17/2014 Document Revised: 07/09/2018 Document Reviewed: 11/15/2016 [employer] Patient Education 2019 [employer]. Follow Up Care 10/17/2021 14:04:25 With:BRIONNA GANT MD Address: [address] [facility] [address] [facility] [place] [address]- [phone] When:12/30/2021 14:45:00 [facility] 12-22-2021 Hospital Discharge instructions Patient Education 07/31/2021 [...] oz of hard liquor. General instructions Take ptgr-xlq-ychoxyo and prescription medicines only as told by [...] 09/17/2017 Document Revised: 07/09/2018 Document Reviewed: 09/17/2017 [employer] Patient Education 2020 [employer] 07/31/2021 12:41:10 Form - Daily Weight [...] 10/08/2007 Document Revised: 07/26/2018 Document Reviewed: 07/26/2018 Elsevier Patient Education 2020 [employer]. 07/31/2021 12:40:52 3- Heart Cath/PCI groin (05/2018)(CUSTOM) [...] need to report the following to your real estate developer: Any draining or oozing from the site [...] Document Reviewed: 07/28/2014 ExitCare Patient Information 2015 [employer] Secure. This information is not intended to replace [...] and water are not available, use hand bookkeeping assistant. 2.Use an alcohol wipe to clean the [...] 04/08/2012 Document Revised: 11/17/2019 Document Reviewed: 04/27/2019 [employer] Patient Education 2020 [employer] 07/25/2021 16:11:22 When Your AICD Discharges AICD [...] will not be eligible for a commercial property administrator's license if you have an AICD because [...] wiggling in the pocket under the skin [id number] [employer]. [address] [place] [address], [place] [address]. All rights reserved. This information is not [...] from your device to your healthcare provider. [id number] [employer]. [address] [place] [address], [place] [address]. All rights reserved. This information is not intended as a substitute for professional medical care. Always follow yourhealthcare professional's instructions. Follow Up Care 07/25/2021 12:16:53 With:DEANA SIDIDQI Address: [address] [place] [address] [address] [facility] [place] [address]- [phone] Business (1) When:5-7 days Comments:Schedule appointment as soon as possible With:post discharge home follow up visit scheduled for 08/02 between 8a-12n Address:Unknown When: Unknown With:RN Automobile Relocation Engineer Address: When:1-2 days Comments:RN CC will call you at home after discharge. If you have any non- emergent questions or needs, please call [phone], Mon.- Fri., 08:00 -- 04:30 p.m. With:Go to emergency room if symptoms worsen Address:Unknown When:2-4 days With:GEORGE MATA MD Address: [address] [place] [address]- When:2-4 days [facility] 12-16-2021 Evaluation + Plan noteExtracted from: Title:History [...] an ischemic evaluation. Will discuss with primary real estate developer in regards to inpatient versus outpatient ischemic [...] Provider: Location:[facility] Appointment Type:CV Remote Procedure [facility] 12-03-2021 History of Present illness Narrative* Raquel Maki RT(R) - 07/12/2021 9:20 AM EST Radiology [...] 12, 2021 9:19 AM documented in this encounterWay[facility]08-10-2021 History of Present illness Narrative* Raquel [...] 19, 2021 11:41 AM documented in this encounterWayne [facility]06-22-2019 History of Past illness Narrative* Problem [...] 07/11/2010 12/04/19 13 Postsurgical aortocoronary bypass status 06/22/ 007 01/27/2019 Esophageal reflux 05/19/2005 01/06/2018 documented as of this encounter (statuses as of 11/05/2021) [facility] of [facility] Narrative* Problem [...] of this encounter (statuses as of 11/06/2021) [facility] Narrative* Problem [...] of this encounter (statuses as of 11/29/2021) [facility] Narrative* Problem [...] of this encounter (statuses as of 12/10/2021) [facility] of [facility] Narrative* Problem [...] of this encounter (statuses as of 12/24/2021) [facility] of [facility] Narrative* Problem [...] of this encounter (statuses as of 02/04/2022) [facility] Narrative* Problem [...] of this encounter (statuses as of 02/18/2022) [facility] Narrative* Problem [...] of this encounter (statuses as of 03/04/2022) [facility] Narrative* Problem [...] of this encounter (statuses as of 03/18/2022) [facility] Narrative* Problem [...] of this encounter (statuses as of 04/01/2022) [facility] Narrative* Problem [...] of this encounter (statuses as of 04/21/2022) [facility] Narrative* Problem [...] of this encounter (statuses as of 04/29/2022) [facility] Narrative* Problem [...] of this encounter (statuses as of 05/13/2022) [facility] Narrative* Problem [...] of this encounter (statuses as of 05/17/2022) [facility] Narrative* Problem [...] of this encounter (statuses as of 05/19/2022) [facility] Narrative* Problem [...] of this encounter (statuses as of 05/27/2022) [facility] Narrative* Problem [...] of this encounter (statuses as of 06/10/2022) [facility] Narrative* Problem [...] of this encounter (statuses as of 06/20/2022) [facility] Narrative* Problem [...] of this encounter (statuses as of 06/24/2022) [facility] Narrative* Problem [...] of this encounter (statuses as of 07/22/2022) [facility] Narrative* Problem [...] of this encounter (statuses as of 07/24/2022) [facility] Narrative* Problem [...] of this encounter (statuses as of 07/26/2022) [facility] Narrative* Problem [...] of this encounter (statuses as of 08/10/2022) [facility] Narrative* Problem [...] of this encounter (statuses as of 08/11/2022) [facility] N[facility]* Problem [...] of this encounter (statuses as of 08/19/2022) [facility] Narrative* Problem [...] of this encounter (statuses as of 08/22/2022) [facility] N[facility]* Problem [...] of this encounter (statuses as of 09/02/2022) [facility] Narrative* Problem [...] of this encounter (statuses as of 09/16/2022) [facility] N[facility]ative* Problem [...] of this encounter (statuses as of 09/17/2022) [facility]* Problem [...] of this encounter (statuses as of 09/30/2022) [facility]* Problem [...] of this encounter (statuses as of 10/28/2022) [facility]* Problem [...] of this encounter (statuses as of 12/09/2022) [facility]* Problem [...] of this encounter (statuses as of 12/23/2022) [facility]* Problem [...] of this encounter (statuses as of 01/06/2023) [facility]* Problem [...] of this encounter (statuses as of 01/23/2023) [facility]* Problem [...] of this encounter (statuses as of 01/28/2023) [facility]* Problem [...] of this encounter (statuses as of 02/03/2023) [facility]* Problem [...] of this encounter (statuses as of 02/17/2023) [facility]* Problem [...] of this encounter (statuses as of 03/06/2023) [facility]* Problem [...] of this encounter (statuses as of 03/17/2023) [facility]* Problem [...] of this encounter (statuses as of 03/31/2023) [facility]* Problem [...] of this encounter (statuses as of 04/14/2023) [facility]* Problem [...] of this encounter (statuses as of 05/18/2023) [facility]* Problem [...] of this encounter (statuses as of 06/09/2023) [facility]* Problem [...] of this encounter (statuses as of 06/23/2023) [facility]* Problem [...] of this encounter (statuses as of 07/07/2023) [facility]* Problem [...] of this encounter (statuses as of 09/15/2023) [facility]* Problem [...] of this encounter (statuses as of 09/29/2023) [facility]* Problem [...] of this encounter (statuses as of 10/13/2023) [facility]* Problem [...] of this encounter (statuses as of 10/27/2023) [facility]* Problem [...] of this encounter (statuses as of 11/10/2023) [facility]* Problem [...] of this encounter (statuses as of 11/11/2023) [facility]* Problem [...] of this encounter (statuses as of 11/24/2023) [facility] N[facility]* Problem [...] 07/26/2010 01/27/2019 Screen for colon cancer 07/11/2010 0401/2013 Postsurgical aortocoronary bypass status 06/22/2007 01/27/2019 Esophageal reflux 05/19/2005 01/06/2018 documented as of this encounter (statuses as of 11/13/2023) [facility] Future App[facility]ments Appointment Date:12/30/2021 02:45:00 PM Scheduled Provider: Location:[facility] Appointment Type:CV OV Appointment Date:12/30/2021 02:45:00 PM Scheduled Provider: Location:[facility] Appointment Type:CV Office Procedure ICD Appointment Date:04/03/2022 09:30:00 AM Scheduled Provider: Location:[facility] Appointment Type:CV Remote Procedure HM Future Scheduled Tests Laboratory* Basic Metabolic Panel 10/14/21 * Basic Metabolic Panel 09/23/21 * Complete Blood Count 09/23/21 [facility] Evaluation + Plan note Future Appointments Appointment Date:12/30/2021 02:45:00 PM Scheduled Provider: Location:[facility] Appointment Type:CV OV Appointment Date:12/30/2021 02:45:00 PM Scheduled Provider: Location:[facility] Appointment Type:CV Office Procedure ICD Appointment Date:04/03/2022 09:30:00 AM Scheduled Provider: Location:[facility] Appointment Type:CV Remote Procedure HM Future Scheduled Tests Laboratory* Basic Metabolic Panel 10/14/21 * Basic Metabolic Panel 10/24/21 * Basic Metabolic Panel 09/23/21 * N-Terminal proBNP 10/24/21 * Complete Blood Count 09/23/21 [facility] Evaluation + Plan note Future Appointments Appointment Date:12/16/2022 10:00:00 AM Scheduled Provider: Location:[facility] Appointment Type:CV Procedure - Echo (Adult) Appointment Date:12/29/2022 03:15:00 PM Scheduled Provider: Location:[facility] Appointment Type:CV OV Appointment Date:02/13/2023 01:30:00 PM Scheduled Provider: Location:[facility] Appointment Type:CV Office Procedure ICD Appointment Date:05/15/2023 08:15:00 AM Scheduled Provider: Location:[facility] Appointment Type:CV Remote Procedure [facility] evaluation + Plan note Future Appointments Appointment Date:12/29/2022 03:15:00 PM Scheduled Provider: Location:[facility] Appointment Type:CV OV Appointment Date:02/13/2023 01:30:00 PM Scheduled Provider: Location:[facility] Appointment Type:CV Office Procedure ICD Appointment Date:05/15/2023 08:15:00 AM Scheduled Provider: Location:[facility] Appointment Type:CV Remote Procedure [facility] evaluation + Plan note Future Appointments Appointment Date:12/06/2024 03:00:00 PM Scheduled Provider:JAVIER GANT Location:[facility] Appointment Type:CV OV Appointment Date:12/19/2024 05:45:00 PM Scheduled Provider: Location:[facility] Appointment Type:CV Remote Procedure [facility] evaluation + Plan note Future Appointments Appointment Date:01/13/2025 03:45:00 PM Scheduled Provider:JAVIER TOUSSAINT Location:[facility] Appointment Type:CV OV Appointment Date:01/25/2025 10:30:00 AM Scheduled Provider:HARRIS UPTON Location:[facility] Appointment Type:CV OV Hospital Follow Up Appointment Date:06/06/2025 02:00:00 PM Scheduled Provider:JAVIER GANT Location:[facility] Appointment Type:CV OV [facility] evaluation + Plan note Future Appointments Appointment [...] Provider:JAVIER GANT Location:[facility] Appointment Type:CV OV [facility] evaluation + Plan note Future Appointments Appointment Date:03/09/2025 01:00:00 PM Scheduled Provider: Location:[facility] Appointment Type:CV Incision Check Appointment Date:06/01/2025 01:30:00 PM Scheduled Provider: Location:[facility] Appointment Type:CV Office Procedure ICD Appointment Date:06/06/2025 02:00:00 PM Scheduled Provider:JAVIER GANT Location:[facility] Appointment Type:CV OV Appointment Date:09/04/2025 05:15:00 PM Scheduled Provider: Location:[facility] Appointment Type:CV Remote Procedure [facility] evaluation note* Diagnosis Chronic systolic heart failure (HCC) Chronic systolic heart failure [facility] Diagnosis Anticoagulated on Coumadin ( home INR testing) Encounter for therapeutic drug monitoring Irritable bowel syndrome, unspecified type [facility]* Diagnosis halfway (current) use of anticoagulants- Primary Long-term (current) use of anticoagulants Permanent atrial fibrillation (HCC) Atrial fibrillation [facility]* Diagnosis Acute gout of right foot, unspecified cause [facility]* Diagnosis Atherosclerosis of [place] coronary artery of [place] heart without angina pectoris Anticoagulated on Coumadin ( home INR testing) Encounter for therapeutic drug monitoring [facility]* Diagnosis buttermaker continuous churn (current) use of anticoagulants- Primary Long-term (current) use of anticoagulants Permanent atrial fibrillation (HCC) Atrial fibrillation [facility]* Diagnosis Irritable bowel syndrome, unspecified type [facility]* Diagnosis Routine medical exam- Primary Routine general medical examination at a health care facility Asthma, moderate persistent, well-controlled Unspecified asthma Pure hypercholesterolemia Byers's esophagus with dysplasia Byers's esophagus Interstitial lung disease (HCC) Postinflammatory pulmonary fibrosis Atherosclerosis of [place] coronary artery of [place] heart without angina pectoris Controlled type 2 diabetes mellitus with stage 3 chronic kidney disease, without long-term current use of insulin (HCC) Chronic systolic heart failure (HCC) Chronic systolic heart failure PAD (peripheral artery disease) (HCC) Peripheral vascular disease, unspecified Need for COVID-19 vaccine Left knee pain, unspecified chronicity documented in this encounter [facility]* Diagnosis Acute gout of right foot, unspecified cause documented in this encounter [facility] note* Diagnosis PAD (peripheral artery disease) (HCC)- Primary Peripheral vascular disease, unspecified [facility]* Diagnosis Acute idiopathic gout of foot, unspecified laterality- Primary Interstitial lung disease (HCC) 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, without long-term current use of insulin (HCC) Thrombocytopenia (HCC) Thrombocytopenia, unspecified Chronic systolic heart failure (HCC) Chronic systolic heart failure Ventricular tachycardia (HCC) Paroxysmal ventricular tachycardia [facility]* Diagnosis buttermaker continuous churn (current) use of anticoagulants- Primary Long-term (current) use of anticoagulants Permanent atrial fibrillation (HCC) Atrial fibrillation [facility]* Diagnosis Irritable bowel syndrome, unspecified type documented in this encounter [facility] note* Diagnosis Atherosclerosis of [place] coronary artery of [place] heart without angina pectoris Asthma, moderate persistent, well-controlled Unspecified asthma documented in this encounter [facility] noteNo assessment information availableWMercy Health St. [facility] Work Phone: Evaluation note* Diagnosis Sinobronchitis- Primary Unspecified sinusitis (chronic) Irritable bowel syndrome, unspecified type Asthma, moderate persistent, well-controlled Unspecified asthma documented in this encounter [facility]* Diagnosis buttermaker continuous churn (current) use of anticoagulants- Primary Long-term (current) use of anticoagulants Permanent atrial fibrillation (HCC) Atrial fibrillation Anticoagulated on Coumadin ( home INR testing) Encounter for therapeutic drug monitoring documented in this encounter [facility] note* Diagnosis Asthma, moderate persistent, well-controlled Unspecified asthma documented in this encounter [facility] note* Diagnosis halfway (current) use of anticoagulants- Primary Long-term (current) use of anticoagulants Permanent atrial fibrillation (HCC) Atrial fibrillation [facility] Diagnosis Controlled type 2 diabetes mellitus with stage 3 chronic kidney disease, without long-term current use of insulin (HCC)- Primary Chronic systolic heart failure (HCC) Chronic systolic heart failure Atherosclerosis of [place] coronary artery of [place] heart without angina pectoris Pure hypercholesterolemia Essential hypertension Unspecified essential hypertension Asthma, moderate persistent, well-controlled Unspecified asthma Interstitial lung disease (HCC) Postinflammatory pulmonary fibrosis Skin tear of left upper arm without complication, initial encounter Screening for depression Encounter for screening examination for other mental health and behavioral disorders [facility] Diagnosis Asthma, moderate persistent, well-controlled Unspecified asthma [facility]* Diagnosis halfway (current) use of anticoagulants- Primary Long-term (current) use of anticoagulants Permanent atrial fibrillation (HCC) Atrial fibrillation [facility]* Diagnosis Foot pain, left Pain in limb [facility] Diagnosis Cough [facility]* Diagnosis buttermaker continuous churn (current) use of anticoagulants- Primary Long-term (current) use of anticoagulants Permanent atrial fibrillation (HCC) Atrial fibrillation [facility] Diagnosis Acute cough [facility]* Diagnosis Routine medical exam- Primary [...] Encounter for therapeutic drug monitoring Atherosclerosis of [place] coronary artery of [place] heart without angina pectoris Essential hypertension Unspecified essential hypertension Acute cough Chronic ankle pain, unspecified laterality PVD (peripheral vascular disease) with claudication (HCC) Peripheral vascular disease, unspecified Thrombocytopenia (HCC) Thrombocytopenia, unspecified Ventricular tachycardia (HCC) Paroxysmal ventricular tachycardia Interstitial lung disease (HCC) Postinflammatory pulmonary fibrosis [facility] Diagnosis Acute gout of right foot, unspecified cause [facility]* Diagnosis Controlled type 2 diabetes mellitus with stage 3 chronic kidney disease, without long-term current use of insulin (HCC)- Primary [facility] Diagnosis Lumbosacral radiculopathy- Primary Thoracic or lumbosacral neuritis or radiculitis, unspecified Encounter for immunization Need for other specified prophylactic vaccination against single bacterial disease Asthma, moderate persistent, well-controlled Unspecified asthma Atherosclerosis of [place] coronary artery of [place] heart without angina pectoris Controlled type 2 diabetes mellitus with stage 3 chronic kidney disease, without long-term current use of insulin (HCC) Chronic systolic heart failure (HCC) Chronic systolic heart failure Anemia due to stage 3b chronic kidney disease (HCC) (HCC) Irritable bowel syndrome, unspecified type Gout of foot, unspecified cause, unspecified chronicity, unspecified laterality [facility] Diagnosis Irritable bowel syndrome, unspecified type documented in this encounter [facility]* Diagnosis Permanent atrial fibrillation (HCC)- Primary Atrial fibrillation Chronic systolic heart failure (HCC) Chronic systolic heart failure Interstitial lung disease (HCC) 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, without long-term current use of insulin (HCC) Essential hypertension Unspecified essential hypertension documented in this encounter [facility] course Narrative No data available for this section [facility] Hospital Discharge instructions No data available for this section [facility] Progress note No data available for this section [facility] Reason for referral (narrative)* Outpatient Procedure (Routine) - Pending Review Specialty Diagnoses / Procedures Referred By Cristobal osborne Referred To [facility] Diagnoses PAD (peripheral artery disease) ([facility]) Procedures PVR ANK PRESS [facility] NON-INVAS PHYSIOLOGIC STD EXTREMITY ART 2 LEVEL George Mata MD [address] [place] [address] [facility] [place] [address] [place] [address] Referral ID Status Reason Start Date Expiration Date Visits Requested Visits Authorized [id number] Pending Review Auto-Generat ed Referral 2 07/24/[address] [facility] for referral (narrative)* Diagnostic Procedure Only (Urgent) - Closed Specialty Diagnoses / Procedures Referred By Contac t Referred To Contact XR IMAGING Diagnoses Foot pain, left Procedures XR FOOT GENERAL 3V AP/LAT/OBL LEFT X-RAY FOOT MINIMUM 3 VIEWS Mai Lutz APRN.[employer]NER [address] [place] [address] [place] [address] Referral ID Status Reason Start Date Expiration Date V isits Requested Visits Authorized [id number] Closed Auto-Generate d Referral 07/12/2021 08/11/2022 1 1 [facility] for referral (narrative)No reason for referral information [facility] Phone[facility] Narrative* Diagnostic Procedure Only (Routine) - Closed Specialty Diagnoses / Procedures Referred By Contac t Referred To [facility] Diagnoses Chronic systolic heart failure (HCC) Procedures ECHO ECHO TTHRC R-T 2D W/WOM-MODE COMPL SPEC&COLR D Charissa Chowdhury, POLICE SUPERINTENDENT.[employer]LEEV[employer] TURNER [id number] [facility] [place] [address] [id number] Referral ID Status Reason Start Date Expiration Date Visits Re quested Visits Authorized [id number] Closed 10/28/2021 08/09/[address] [facility] for visit Narrative* Diagnostic Procedure Only (Urgent) - Closed Specialty Diagnoses / Procedures Referred By Contac t Referred To Contact XR IMAGING Diagnoses Foot pain, left Procedures XR FOOT GENERAL 3V AP/LAT/OBL LEFT X-RAY FOOT MINIMUM 3 VIEWS Mai Lutz APRN.[employer] TURNER [address] [place] [address] [place] [address] Referral ID Status Reason Start Date Expiration Date V isits Requested Visits Authorized [id number] Closed Auto-Generate d Referral 07/12/2021 08/11/2022 1 1 [facility] Medications Administered Section Inactive Administered Medications [...] Referral Specialty Diagnoses / Procedures Referred By Cristobal osborne Referred To Contact Nephrology Diagnoses Controlled type 2 diabetes mellitus with stage 3 chronic kidney disease, without long-term current use of insulin ([facility]) Procedures [place] [address] [place] [id number] Referral ID Status Reason Start Date Expiration Date Visits Requested Visits Authorized [id number] Authorized PCP Requested Referral 09/14/2024 09/13/2025 1 1 Specialty Diagnoses / Procedures Referred By Cristobal osborne Referred To Contact Podiatry Diagnoses Controlled type 2 diabetes mellitus with stage 3 chronic kidney disease, without long-term current use of insulin ([facility]) Chronic ankle pain, unspecified laterality Procedures CONSULT TO PODIATRY George Mata MD [address] [place] [id number] Referral ID Status Reason Start Date Expiration Date Visits Requested Visits Authorized [id number] Authorized PCP Requested Referral 08/09/2025 1 1 Specialty Diagnoses / Procedures Referred By Cristobal osborne Referred To Contact Vascular Medicine Diagnoses PAD (peripheral artery disease) ([facility]) Procedures CONSULT TO VASCULAR MEDICINE OFFICE/OUTPATIENT [facility] 60-74 MINUTES George Mata MD [address] [place] [id number] Referral ID Status Reason Start Date Expiration Date Visits Requested Visits Authorized [id number] Pending Review PCP Requested Referral 08/22/2022 08/22/2023 1 1 Chief Complaint and Reason for Visit Chief Complaint PERIPHERAL VASCULAR DISEASE Chief Complaint LUMBAR RAD Chief Complaint Admit Date ATHEROSLEROSIS DENAE/DBI October 17, 2024 12:40pm Chief Complaint Admit Date Edema March 04, 2025 8:48 pm Family History Relationship Condition Age at Onset Recorded Date/T [...] History?Heart Disease Unknown March 22, 2019 10:53am Relationship Condition Age at Onset Recorded Date/T deidra Not Specified Cardiac disease Unknown Advance Directives Advance Directive Response Recorded Date/ Time Living Will Yes May 02, 2021 7:28am Power of [employer] Wildlife [employer] Yes April 7:28am Advance Directive Response Recorded Date/ Time Living Will Yes May 02, 2021 8:28am Power of [employer] Yes April 8:28am Advance Directive Response Recorded Date/ Time Do you have a Healthcare Power of Fish And Wildlife [employer]? Yes March 04, 2025 11:27am Summary Purpose Additional Source Comments Source Comments (unrecognize d section and content) In the event this informatio n is protected by the Federal Confidentiality of Alcohol and Drug Abuse Patient Records regulations: The Federal rules restrict any use of the information to criminally investigate or prosecute any alcohol or drug abuse patient.[facility] the event this information is protected by the Federal Confidentiality of Alcohol and Drug Abuse Patient Records regulations: The Federal rules restrict any use of the information to criminally investigate or prosecute any alcohol or drug abuse patient.[facility] the event this information is protected by the Federal Confidentiality of Alcohol and Drug Abuse Patient Records regulations: The Federal rules restrict any use of the information to criminally investigate or prosecute any alcohol or drug abuse patient.[facility] the event this information is protected by the Federal Confidentiality of Alcohol and Drug Abuse Patient Records regulations: The Federal rules restrict any use of the information to criminally investigate or prosecute any alcohol or drug abuse patient.[facility] the event this information is protected by the Federal Confidentiality of Alcohol and Drug Abuse Patient Records regulations: The Federal rules restrict any use of the information to criminally investigate or prosecute any alcohol or drug abuse patient.[facility] the event this information is protected by the Federal Confidentiality of Alcohol and Drug Abuse Patient Records regulations: The Federal rules restrict any use of the information to criminally investigate or prosecute any alcohol or drug abuse patient.[facility] the event this information is protected by the Federal Confidentiality of Alcohol and Drug Abuse Patient Records regulations: The Federal rules restrict any use of the information to criminally investigate or prosecute any alcohol or drug abuse patient.[facility] the event this information is protected by the Federal Confidentiality of Alcohol and Drug Abuse Patient Records regulations: The Federal rules restrict any use of the information to criminally investigate or prosecute any alcohol or drug abuse patient.[facility] the event this information is protected by the Federal Confidentiality of Alcohol and Drug Abuse Patient Records regulations: The Federal rules restrict any use of the information to criminally investigate or prosecute any alcohol or drug abuse patient.[facility] the event this information is protected by the Federal Confidentiality of Alcohol and Drug Abuse Patient Records regulations: The Federal rules restrict any use of the information to criminally investigate or prosecute any alcohol or drug abuse patient.[facility] the event this information is protected by the Federal Confidentiality of Alcohol and Drug Abuse Patient Records regulations: The Federal rules restrict any use of the information to criminally investigate or prosecute any alcohol or drug abuse patient.[facility] the event this information is protected by the Federal Confidentiality of Alcohol and Drug Abuse Patient Records regulations: The Federal rules restrict any use of the information to criminally investigate or prosecute any alcohol or drug abuse patient.[facility] the event this information is protected by the Federal Confidentiality of Alcohol and Drug Abuse Patient Records regulations: The Federal rules restrict any use of the information to criminally investigate or prosecute any alcohol or drug abuse patient.[facility] the event this information is protected by the Federal Confidentiality of Alcohol and Drug Abuse Patient Records regulations: The Federal rules restrict any use of the information to criminally investigate or prosecute any alcohol or drug abuse patient.[facility] the event this information is protected by the Federal Confidentiality of Alcohol and Drug Abuse Patient Records regulations: The Federal rules restrict any use of the information to criminally investigate or prosecute any alcohol or drug abuse patient.[facility] the event this information is protected by the Federal Confidentiality of Alcohol and Drug Abuse Patient Records regulations: The Federal rules restrict any use of the information to criminally investigate or prosecute any alcohol or drug abuse patient.[facility] the event this information is protected by the Federal Confidentiality of Alcohol and Drug Abuse Patient Records regulations: The Federal rules restrict any use of the information to criminally investigate or prosecute any alcohol or drug abuse patient.[facility] the event this information is protected by the Federal Confidentiality of Alcohol and Drug Abuse Patient Records regulations: The Federal rules restrict any use of the information to criminally investigate or prosecute any alcohol or drug abuse patient.[facility] the event this information is protected by the Federal Confidentiality of Alcohol and Drug Abuse Patient Records regulations: The Federal rules restrict any use of the information to criminally investigate or prosecute any alcohol or drug abuse patient.[facility] the event this information is protected by the Federal Confidentiality of Alcohol and Drug Abuse Patient Records regulations: The Federal rules restrict any use of the information to criminally investigate or prosecute any alcohol or drug abuse patient.[facility] the event this information is protected by the Federal Confidentiality of Alcohol and Drug Abuse Patient Records regulations: The Federal rules restrict any use of the information to criminally investigate or prosecute any alcohol or drug abuse patient.[facility] the event this information is protected by the Federal Confidentiality of Alcohol and Drug Abuse Patient Records regulations: The Federal rules restrict any use of the information to criminally investigate or prosecute any alcohol or drug abuse patient.[facility] the event this information is protected by the Federal Confidentiality of Alcohol and Drug Abuse Patient Records regulations: The Federal rules restrict any use of the information to criminally investigate or prosecute any alcohol or drug abuse patient.[facility] the event this information is protected by the Federal Confidentiality of Alcohol and Drug Abuse Patient Records regulations: The Federal rules restrict any use of the information to criminally investigate or prosecute any alcohol or drug abuse patient.[facility] the event this information is protected by the Federal Confidentiality of Alcohol and Drug Abuse Patient Records regulations: The Federal rules restrict any use of the information to criminally investigate or prosecute any alcohol or drug abuse patient.[facility] the event this information is protected by the Federal Confidentiality of Alcohol and Drug Abuse Patient Records regulations: The Federal rules restrict any use of the information to criminally investigate or prosecute any alcohol or drug abuse patient.[facility] the event this information is protected by the Federal Confidentiality of Alcohol and Drug Abuse Patient Records regulations: The Federal rules restrict any use of the information to criminally investigate or prosecute any alcohol or drug abuse patient.[facility] the event this information is protected by the Federal Confidentiality of Alcohol and Drug Abuse Patient Records regulations: The Federal rules restrict any use of the information to criminally investigate or prosecute any alcohol or drug abuse patient.[facility] the event this information is protected by the Federal Confidentiality of Alcohol and Drug Abuse Patient Records regulations: The Federal rules restrict any use of the information to criminally investigate or prosecute any alcohol or drug abuse patient.[facility] the event this information is protected by the Federal Confidentiality of Alcohol and Drug Abuse Patient Records regulations: The Federal rules restrict any use of the information to criminally investigate or prosecute any alcohol or drug abuse patient.[facility] the event this information is protected by the Federal Confidentiality of Alcohol and Drug Abuse Patient Records regulations: The Federal rules restrict any use of the information to criminally investigate or prosecute any alcohol or drug abuse patient.[facility] the event this information is protected by the Federal Confidentiality of Alcohol and Drug Abuse Patient Records regulations: The Federal rules restrict any use of the information to criminally investigate or prosecute any alcohol or drug abuse patient.[facility] the event this information is protected by the Federal Confidentiality of Alcohol and Drug Abuse Patient Records regulations: The Federal rules restrict any use of the information to criminally investigate or prosecute any alcohol or drug abuse patient.[facility] the event this information is protected by the Federal Confidentiality of Alcohol and Drug Abuse Patient Records regulations: The Federal rules restrict any use of the information to criminally investigate or prosecute any alcohol or drug abuse patient.[facility] the event this information is protected by the Federal Confidentiality of Alcohol and Drug Abuse Patient Records regulations: The Federal rules restrict any use of the information to criminally investigate or prosecute any alcohol or drug abuse patient.[facility] the event this information is protected by the Federal Confidentiality of Alcohol and Drug Abuse Patient Records regulations: The Federal rules restrict any use of the information to criminally investigate or prosecute any alcohol or drug abuse patient.[facility]In the event this information is protected by the Federal Confidentiality of Alcohol and Drug Abuse Patient Records regulations: The Federal rules restrict any use of the information to criminally investigate or prosecute any alcohol or drug abuse patient.[facility] the event this information is protected by the Federal Confidentiality of Alcohol and Drug Abuse Patient Records regulations: The Federal rules restrict any use of the information to criminally investigate or prosecute any alcohol or drug abuse patient.[facility] the event this information is protected by the Federal Confidentiality of Alcohol and Drug Abuse Patient Records regulations: The Federal rules restrict any use of the information to criminally investigate or prosecute any alcohol or drug abuse patient.[facility] the event this information is protected by the Federal Confidentiality of Alcohol and Drug Abuse Patient Records regulations: The Federal rules restrict any use of the information to criminally investigate or prosecute any alcohol or drug abuse patient.[facility]In the event this information is protected by the Federal Confidentiality of Alcohol and Drug Abuse Patient Records regulations: The Federal rules restrict any use of the information to criminally investigate or prosecute any alcohol or drug abuse patient.[facility]In the event this information is protected by the Federal Confidentiality of Alcohol and Drug Abuse Patient Records regulations: The Federal rules restrict any use of the information to criminally investigate or prosecute any alcohol or drug abuse patient.[facility]In the event this information is protected by the Federal Confidentiality of Alcohol and Drug Abuse Patient Records regulations: The Federal rules restrict any use of the information to criminally investigate or prosecute any alcohol or drug abuse patient.[facility]In the event this information is protected by the Federal Confidentiality of Alcohol and Drug Abuse Patient Records regulations: The Federal rules restrict any use of the information to criminally investigate or prosecute any alcohol or drug abuse patient.[facility]In the event this information is protected by the Federal Confidentiality of Alcohol and Drug Abuse Patient Records regulations: The Federal rules restrict any use of the information to criminally investigate or prosecute any alcohol or drug abuse patient.[facility]In the event this information is protected by the Federal Confidentiality of Alcohol and Drug Abuse Patient Records regulations: The Federal rules restrict any use of the information to criminally investigate or prosecute any alcohol or drug abuse patient.[facility]In the event this information is protected by the Federal Confidentiality of Alcohol and Drug Abuse Patient Records regulations: The Federal rules restrict any use of the information to criminally investigate or prosecute any alcohol or drug abuse patient.[facility]In the event this information is protected by the Federal Confidentiality of Alcohol and Drug Abuse Patient Records regulations: The Federal rules restrict any use of the information to criminally investigate or prosecute any alcohol or drug abuse patient.[facility] CampusIn the event this information is protected by the Federal Confidentiality of Alcohol and Drug Abuse Patient Records regulations: The Federal rules restrict any use of the information to criminally investigate or prosecute any alcohol or drug abuse patient.[facility] CampusIn the event this information is protected by the Federal Confidentiality of Alcohol and Drug Abuse Patient Records regulations: The Federal rules restrict any use of the information to criminally investigate or prosecute any alcohol or drug abuse patient.[facility] CampusIn the event this information is protected by the Federal Confidentiality of Alcohol and Drug Abuse Patient Records regulations: The Federal rules restrict any use of the information to criminally investigate or prosecute any alcohol or drug abuse patient.[facility] CampusIn the event this information is protected by the Federal Confidentiality of Alcohol and Drug Abuse Patient Records regulations: The Federal rules restrict any use of the information to criminally investigate or prosecute any alcohol or drug abuse patient.[facility] CampusIn the event this information is protected by the Federal Confidentiality of Alcohol and Drug Abuse Patient Records regulations: The Federal rules restrict any use of the information to criminally investigate or prosecute any alcohol or drug abuse patient.[facility] CampusIn the event this information is protected by the Federal Confidentiality of Alcohol and Drug Abuse Patient Records regulations: The Federal rules restrict any use of the information to criminally investigate or prosecute any alcohol or drug abuse patient.[facility] CampusIn the event this information is protected by the Federal Confidentiality of Alcohol and Drug Abuse Patient Records regulations: The Federal rules restrict any use of the information to criminally investigate or prosecute any alcohol or drug abuse patient.[facility] CampusIn the event this information is protected by the Federal Confidentiality of Alcohol and Drug Abuse Patient Records regulations: The Federal rules restrict any use of the information to criminally investigate or prosecute any alcohol or drug abuse patient.[facility] CampusIn the event this information is protected by the Federal Confidentiality of Alcohol and Drug Abuse Patient Records regulations: The Federal rules restrict any use of the information to criminally investigate or prosecute any alcohol or drug abuse patient.[facility] CampusIn the event this information is protected by the Federal Confidentiality of Alcohol and Drug Abuse Patient Records regulations: The Federal rules restrict any use of the information to criminally investigate or prosecute any alcohol or drug abuse patient.[facility] CampusIn the event this information is protected by the Federal Confidentiality of Alcohol and Drug Abuse Patient Records regulations: The Federal rules restrict any use of the information to criminally investigate or prosecute any alcohol or drug abuse patient.[facility] CampusIn the event this information is protected by the Federal Confidentiality of Alcohol and Drug Abuse Patient Records regulations: The Federal rules restrict any use of the information to criminally investigate or prosecute any alcohol or drug abuse patient.[facility] CampusIn the event this information is protected by the Federal Confidentiality of Alcohol and Drug Abuse Patient Records regulations: The Federal rules restrict any use of the information to criminally investigate or prosecute any alcohol or drug abuse patient.[facility] CampusIn the event this information is protected by the Federal Confidentiality of Alcohol and Drug Abuse Patient Records regulations: The Federal rules restrict any use of the information to criminally investigate or prosecute any alcohol or drug abuse patient.[facility] CampusIn the event this information is protected by the Federal Confidentiality of Alcohol and Drug Abuse Patient Records regulations: The Federal rules restrict any use of the information to criminally investigate or prosecute any alcohol or drug abuse patient.[facility] CampusIn the event this information is protected by the Federal Confidentiality of Alcohol and Drug Abuse Patient Records regulations: The Federal rules restrict any use of the information to criminally investigate or prosecute any alcohol or drug abuse patient.[facility] CampusIn the event this information is protected by the Federal Confidentiality of Alcohol and Drug Abuse Patient Records regulations: The Federal rules restrict any use of the information to criminally investigate or prosecute any alcohol or drug abuse patient.[facility] CampusIn the event this information is protected by the Federal Confidentiality of Alcohol and Drug Abuse Patient Records regulations: The Federal rules restrict any use of the information to criminally investigate or prosecute any alcohol or drug abuse patient.[facility] CampusIn the event this information is protected by the Federal Confidentiality of Alcohol and Drug Abuse Patient Records regulations: The Federal rules restrict any use of the information to criminally investigate or prosecute any alcohol or drug abuse patient.[facility] CampusIn the event this information is protected by the Federal Confidentiality of Alcohol and Drug Abuse Patient Records regulations: The Federal rules restrict any use of the information to criminally investigate or prosecute any alcohol or drug abuse patient.[facility] CampusIn the event this information is protected by the Federal Confidentiality of Alcohol and Drug Abuse Patient Records regulations: The Federal rules restrict any use of the information to criminally investigate or prosecute any alcohol or drug abuse patient.[facility] CampusIn the event this information is protected by the Federal Confidentiality of Alcohol and Drug Abuse Patient Records regulations: The Federal rules restrict any use of the information to criminally investigate or prosecute any alcohol or drug abuse patient.[facility] CampusIn the event this information is protected by the Federal Confidentiality of Alcohol and Drug Abuse Patient Records regulations: The Federal rules restrict any use of the information to criminally investigate or prosecute any alcohol or drug abuse patient.[facility] CampusIn the event this information is protected by the Federal Confidentiality of Alcohol and Drug Abuse Patient Records regulations: The Federal rules restrict any use of the information to criminally investigate or prosecute any alcohol or drug abuse patient.[facility] CampusIn the event this information is protected by the Federal Confidentiality of Alcohol and Drug Abuse Patient Records regulations: The Federal rules restrict any use of the information to criminally investigate or prosecute any alcohol or drug abuse patient.[facility] CampusIn the event this information is protected by the Federal Confidentiality of Alcohol and Drug Abuse Patient Records regulations: The Federal rules restrict any use of the information to criminally investigate or prosecute any alcohol or drug abuse patient.[facility] CampusIn the event this information is protected by the Federal Confidentiality of Alcohol and Drug Abuse Patient Records regulations: The Federal rules restrict any use of the information to criminally investigate or prosecute any alcohol or drug abuse patient.[facility] the event this information is protected by the Federal Confidentiality of Alcohol and Drug Abuse Patient Records regulations: The Federal rules restrict any use of the information to criminally investigate or prosecute any alcohol or drug abuse patient.[facility] CampusIn the event this information is protected by the Federal Confidentiality of Alcohol and Drug Abuse Patient Records regulations: The Federal rules restrict any use of the information to criminally investigate or prosecute any alcohol or drug abuse patient.[facility] CampusIn the event this information is protected by the Federal Confidentiality of Alcohol and Drug Abuse Patient Records regulations: The Federal rules restrict any use of the information to criminally investigate or prosecute any alcohol or drug abuse patient.[facility]In the event this information is protected by the Federal Confidentiality of Alcohol and Drug Abuse Patient Records regulations: The Federal rules restrict any use of the information to criminally investigate or prosecute any alcohol or drug abuse patient.[facility] CampusIn the event this information is protected by the Federal Confidentiality of Alcohol and Drug Abuse Patient Records regulations: The Federal rules restrict any use of the information to criminally investigate or prosecute any alcohol or drug abuse patient.[facility] CampusIn the event this information is protected by the Federal Confidentiality of Alcohol and Drug Abuse Patient Records regulations: The Federal rules restrict any use of the information to criminally investigate or prosecute any alcohol or drug abuse patient.[facility] CampusIn the event this information is protected by the Federal Confidentiality of Alcohol and Drug Abuse Patient Records regulations: The Federal rules restrict any use of the information to criminally investigate or prosecute any alcohol or drug abuse patient.[facility] CampusIn the event this information is protected by the Federal Confidentiality of Alcohol and Drug Abuse Patient Records regulations: The Federal rules restrict any use of the information to criminally investigate or prosecute any alcohol or drug abuse patient.[facility] CampusIn the event this information is protected by the Federal Confidentiality of Alcohol and Drug Abuse Patient Records regulations: The Federal rules restrict any use of the information to criminally investigate or prosecute any alcohol or drug abuse patient.[facility] CampusIn the event this information is protected by the Federal Confidentiality of Alcohol and Drug Abuse Patient Records regulations: The Federal rules restrict any use of the information to criminally investigate or prosecute any alcohol or drug abuse patient.[facility] CampusIn the event this information is protected by the Federal Confidentiality of Alcohol and Drug Abuse Patient Records regulations: The Federal rules restrict any use of the information to criminally investigate or prosecute any alcohol or drug abuse patient.[facility] CampusIn the event this information is protected by the Federal Confidentiality of Alcohol and Drug Abuse Patient Records regulations: The Federal rules restrict any use of the information to criminally investigate or prosecute any alcohol or drug abuse patient.[facility] CampusIn the event this information is protected by the Federal Confidentiality of Alcohol and Drug Abuse Patient Records regulations: The Federal rules restrict any use of the information to criminally investigate or prosecute any alcohol or drug abuse patient.[facility] CampusIn the event this information is protected by the Federal Confidentiality of Alcohol and Drug Abuse Patient Records regulations: The Federal rules restrict any use of the information to criminally investigate or prosecute any alcohol or drug abuse patient.[facility] CampusIn the event this information is protected by the Federal Confidentiality of Alcohol and Drug Abuse Patient Records regulations: The Federal rules restrict any use of the information to criminally investigate or prosecute any alcohol or drug abuse patient.[facility] CampusIn the event this information is protected by the Federal Confidentiality of Alcohol and Drug Abuse Patient Records regulations: The Federal rules restrict any use of the information to criminally investigate or prosecute any alcohol or drug abuse patient.[facility] CampusIn the event this information is protected by the Federal Confidentiality of Alcohol and Drug Abuse Patient Records regulations: The Federal rules restrict any use of the information to criminally investigate or prosecute any alcohol or drug abuse patient.[facility] CampusIn the event this information is protected by the Federal Confidentiality of Alcohol and Drug Abuse Patient Records regulations: The Federal rules restrict any use of the information to criminally investigate or prosecute any alcohol or drug abuse patient.[facility] CampusIn the event this information is protected by the Federal Confidentiality of Alcohol and Drug Abuse Patient Records regulations: The Federal rules restrict any use of the information to criminally investigate or prosecute any alcohol or drug abuse patient.[facility] CampusIn the event this information is protected by the Federal Confidentiality of Alcohol and Drug Abuse Patient Records regulations: The Federal rules restrict any use of the information to criminally investigate or prosecute any alcohol or drug abuse patient.[facility] CampusIn the event this information is protected by the Federal Confidentiality of Alcohol and Drug Abuse Patient Records regulations: The Federal rules restrict any use of the information to criminally investigate or prosecute any alcohol or drug abuse patient.[facility] CampusIn the event this information is protected by the Federal Confidentiality of Alcohol and Drug Abuse Patient Records regulations: The Federal rules restrict any use of the information to criminally investigate or prosecute any alcohol or drug abuse patient.[facility] CampusIn the event this information is protected by the Federal Confidentiality of Alcohol and Drug Abuse Patient Records regulations: The Federal rules restrict any use of the information to criminally investigate or prosecute any alcohol or drug abuse patient.[facility] CampusIn the event this information is protected by the Federal Confidentiality of Alcohol and Drug Abuse Patient Records regulations: The Federal rules restrict any use of the information to criminally investigate or prosecute any alcohol or drug abuse patient.[facility] CampusIn the event this information is protected by the Federal Confidentiality of Alcohol and Drug Abuse Patient Records regulations: The Federal rules restrict any use of the information to criminally investigate or prosecute any alcohol or drug abuse patient.[facility] CampusIn the event this information is protected by the Federal Confidentiality of Alcohol and Drug Abuse Patient Records regulations: The Federal rules restrict any use of the information to criminally investigate or prosecute any alcohol or drug abuse patient.[facility] CampusIn the event this information is protected by the Federal Confidentiality of Alcohol and Drug Abuse Patient Records regulations: The Federal rules restrict any use of the information to criminally investigate or prosecute any alcohol or drug abuse patient.[facility] CampusIn the event this information is protected by the Federal Confidentiality of Alcohol and Drug Abuse Patient Records regulations: The Federal rules restrict any use of the information to criminally investigate or prosecute any alcohol or drug abuse patient.[facility] CampusIn the event this information is protected by the Federal Confidentiality of Alcohol and Drug Abuse Patient Records regulations: The Federal rules restrict any use of the information to criminally investigate or prosecute any alcohol or drug abuse patient.[facility] CampusIn the event this information is protected by the Federal Confidentiality of Alcohol and Drug Abuse Patient Records regulations: The Federal rules restrict any use of the information to criminally investigate or prosecute any alcohol or drug abuse patient.[facility] CampusIn the event this information is protected by the Federal Confidentiality of Alcohol and Drug Abuse Patient Records regulations: The Federal rules restrict any use of the information to criminally investigate or prosecute any alcohol or drug abuse patient.[facility] CampusIn the event this information is protected by the Federal Confidentiality of Alcohol and Drug Abuse Patient Records regulations: The Federal rules restrict any use of the information to criminally investigate or prosecute any alcohol or drug abuse patient.[facility] Reason for Visit (unrecogniz ed section [...] lab results fro m 08-12-22 faxed to [place] [id number]: Zrm: [phone] Reason Comments Results Reason Comments F/U 6 [...] Care Teams (unrecognized sec tion and content) 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 Start Date End Date George Mata MD [address] [place] [address] PCP - General 07/28/07 Consultants, [facility] [address] [place] [address] Physician Cardiology 10/20/19 13, Pharmacist [id number] [place] [address] Pharmacist Pharmacy 03/08/20 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 Start Date End Date George Mata MD [address] [place], [place] [address] PCP - General 07/28/07 Consultants, [facility] [address] [place] [address] Physician Cardiology 10/20/19 13, Pharmacist [id number] [place] [address] Pharmacist Pharmacy 03/08/20 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 Start Date End Date George Mata MD [address] [place] [address] PCP - General 07/28/07 Consultants, [facility] [address] [place] [address] Physician Cardiology 10/20/19 13, Pharmacist [id number] [place] [address] Pharmacist Pharmacy 03/08/20 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 Start Date End Date George Mata MD [address] [place] [address] PCP - General 07/28/07 Consultants, [facility] [address] [place] [address] Physician Cardiology 10/20/19 13, Pharmacist [id number] [place] [address] Pharmacist Pharmacy 03/08/20 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 Start Date End Date George Mata MD [address] [place] [address] PCP - General 07/28/07 Consultants, [facility] [address] [place] [address] Physician Cardiology 10/20/19 13, Pharmacist [id number] [place] [address] Pharmacist Pharmacy 03/08/20 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 Start Date End Date George Mata MD [address] [place] [address] PCP - General 07/28/07 Consultants, [facility] [address] [place] [address] Physician Cardiology 10/20/19 13, Pharmacist [id number] [facility] [place] [address] Pharmacist Pharmacy 03/08/20 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 Start Date End Date George Mata MD [address] [place] [address] PCP - General 07/28/07 Consultants, [facility] [address] [place] [address] Physician Cardiology 10/20/19 13, Pharmacist [id number] [place] [address] Pharmacist Pharmacy 03/08/20 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 Start Date End Date George Mata MD [address] [place] [address] PCP - General 07/28/07 Consultants, [facility] [address] [place] [address] Physician Cardiology 10/20/19 13, Pharmacist [id number] [facility] [place] [address] Pharmacist Pharmacy 03/08/20 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 Start Date End Date George Mata MD [address] [place] [address] PCP - General 07/28/07 Consultants, [facility] [address] [place] [address] Physician Cardiology 10/20/19 13, Pharmacist [address] [place] [address] Pharmacist Pharmacy 03/08/20 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 Start Date End Date George Mata MD [address] [place] [address] PCP - General 07/28/07 Consultants, [facility] [address] [place] [address] Physician Cardiology 10/20/19 13, Pharmacist [address] [place] [address] Pharmacist Pharmacy 03/08/20 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 Start Date End Date George Mata MD [address] [place] [address] PCP - General 07/28/07 Consultants, [facility] [address] [place] [address] Physician Cardiology 10/20/19 13, Pharmacist [id number] [facility] [place] [address] Pharmacist Pharmacy 03/08/20 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 Start Date End Date George Mata MD [address] [place] [address] PCP - General 07/28/07 Consultants, [facility] [address] [place] [address] Physician Cardiology 10/20/19 13, Pharmacist [id number] [place] [address] Pharmacist Pharmacy 03/08/20 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 Start Date End Date George Mata MD [address] [place] [address] PCP - General 07/28/07 Consultants, [facility] [address] [place] [address] Physician Cardiology 10/20/19 13, Pharmacist [id number] [place] [address] Pharmacist Pharmacy 03/08/20 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 Start Date End Date George Mata MD [address] [place] [address] PCP - General 07/28/07 Consultants, [facility] [address] [place] [address] Physician Cardiology 10/20/19 13, Pharmacist [address] [place] [address] Pharmacist Pharmacy 03/08/20 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 Start Date End Date George Mata MD [address] [place] [address] PCP - General 07/28/07 Consultants, [facility] [address] [place] [address] Physician Cardiology 10/20/19 13, Pharmacist [address] [place] [address] Pharmacist Pharmacy 03/08/20 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 Start Date End Date George Mata MD [address] [place] [address] PCP - General 07/28/07 Consultants, [facility] [address] [place] [address] Physician Cardiology 10/20/19 13, Pharmacist [address] [place] [address] Pharmacist Pharmacy 03/08/20 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 Start Date End Date George Mata MD [address] [place] [address] PCP - General 07/28/07 Consultants, [facility] [address] [place] [address] Physician Cardiology 10/20/19 13, Pharmacist [address] [place] [address] Pharmacist Pharmacy 03/08/20 Team Status: Active Member Role Status Dates Dr. George Mata MD Family Provider Active Dr. George Mata MD Primary Care Provider Active Team Status: Inactive Member Role Status Dates Dr. George Mata MD Primary Care Provider Active Dr. Faizan Pierce MD Attending Provider, Referring Provider Active 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 Start Date End Date George Mata MD [address] [place] [address] PCP - General 07/28/07 Consultants, [facility] [address] [place] [address] Physician Cardiology 10/20/19 13, Pharmacist [address] [place] [address] Pharmacist Pharmacy 03/08/20 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 Start Date End Date George Mata MD [address] [place] [address] PCP - General 07/28/07 Consultants, [facility] [address] [place] [address] Physician Cardiology 10/20/19 13, Pharmacist [phone] [place] [address] Pharmacist Pharmacy 03/08/20 Team Status: Inactive Member Role Status Dates Dr. George Mata MD Primary Care Provider Active Dr. Elmer Rousseau MD Attending Provider, Referring Provider Active 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 Start Date End Date George Mata MD [address] [place] [address] PCP - General 07/28/07 Consultants, [facility] [address] [place] [address] Physician Cardiology 10/20/19 13, Pharmacist [address] [place] [address] Pharmacist Pharmacy 03/08/20 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 Start Date End Date George Mata MD [address] [place] [address] PCP - General 07/28/07 Consultants, [facility] [address] [place] [address] Physician Cardiology 10/20/19 13, Pharmacist [address] [place] [address] Pharmacist Pharmacy 03/08/20 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 Start Date End Date George Mata MD [address] [place] [address] PCP - General 07/28/07 Consultants, [facility] Cardiovascular [address] [place] [address] Physician Cardiology 10/20/19 13, Pharmacist [id number] [place] [address] Pharmacist Pharmacy 03/08/20 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 Start Date End Date George Mata MD [address] [place] [address] PCP - General 07/28/07 Consultants, [facility] [address] [place] [address] Physician Cardiology 10/20/19 13, Pharmacist [address] [place] [address] Pharmacist Pharmacy 03/08/20 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 Start Date End Date George Mata MD [address] [place] [address] PCP - General 07/28/07 Consultants, [facility] [address] [place] [address] Physician Cardiology 10/20/19 13, Pharmacist [phone] [facility] [place] [address] Pharmacist Pharmacy 03/08/20 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 Start Date End Date George Mata MD [address] [place] [address] PCP - General 07/28/07 Consultants, [facility] [address] [place] [address] Physician Cardiology 10/20/19 13, Pharmacist [id number] [facility] [place] [address] Pharmacist Pharmacy 03/08/20 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 Start Date End Date George Mata MD [address] [place] [address] PCP - General 07/28/07 Consultants, [facility] [address] [place] [address] Physician Cardiology 10/20/19 13, Pharmacist [address] [place] [address] Pharmacist Pharmacy 03/08/20 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 Start Date End Date George Mata MD [address] [place] [address] PCP - General 07/28/07 Consultants, [facility] [address] [place] [address] Physician Cardiology 10/20/19 13, Pharmacist [address] [place] [address] Pharmacist Pharmacy 03/08/20 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 Start Date End Date George Mata MD [address] [place] [address] PCP - General 07/28/07 Consultants, [facility] [address] [place] [address] Physician Cardiology 10/20/19 13, Pharmacist [address] [place] [address] Pharmacist Pharmacy 03/08/20 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 Start Date End Date George Mata MD [address] [place] [address] PCP - General 07/28/07 Consultants, [facility] [address] [place] [address] Physician Cardiology 10/20/19 13, Pharmacist [address] [place] [address] Pharmacist Pharmacy 03/08/20 Paola Blue, POLICE SUPERINTENDENT.SLEEVE TURNER [address] [place] [address] [facility] Internal Medicine 07/18/24 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 Start Date End Date George Mata MD [address] [place] [address] PCP - General 07/28/07 Consultants, [facility] [address] [place] [address] Physician Cardiology 10/20/19 13, Pharmacist [address] [place] [address] Pharmacist Pharmacy 03/08/20 Paola Blue, POLICE SUPERINTENDENT.SLEEVE TURNER [address] [place] [address] [facility] 07/18/24 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 Start Date End Date George Mata MD [address] [place] [address] PCP - General 07/28/07 Consultants, [facility] [address] [place] [address] Physician Cardiology 10/20/19 13, Pharmacist [address] [place] [address] Pharmacist Pharmacy 03/08/20 Paola Blue, POLICE SUPERINTENDENT.SLEEVE TURNER [address] [place] [address] [facility] 07/18/24 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 Start Date End Date George Mata MD [address] [place] [address] PCP - General 07/28/07 Consultants, [facility] [address] [place] [address] Physician Cardiology 10/20/19 13, Pharmacist [address] [place] [address] Pharmacist Pharmacy 03/08/20 Paola Blue, POLICE SUPERINTENDENT.SLEEVE TURNER [address] [place] [address] [facility] 07/18/24 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 Start Date End Date George Mata MD [address] [place] [address] PCP - General 07/28/07 Consultants, [facility] [address] [place] [address] Physician Cardiology 10/20/19 13, Pharmacist [address] [place] [address] Pharmacist Pharmacy 03/08/20 Paola Blue, POLICE SUPERINTENDENT.SLEEVE TURNER [address] [place] [address] [facility] 07/18/24 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 Start Date End Date George Mata MD [address] [place] [address] PCP - General 07/28/07 Consultants, [facility] [address] [place] [address] Physician Cardiology 10/20/19 13, Pharmacist [address] [place] [address] Pharmacist Pharmacy 03/08/20 Paola Blue, POLICE SUPERINTENDENT.SLEEVE TURNER [address] [place] [address] [facility] 07/18/24 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 Start Date End Date George Mata MD [address] [place] [address] PCP - General 07/28/07 Consultants, [facility] [address] [place] [address] Physician Cardiology 10/20/19 13, Pharmacist [address] [place] [address] Pharmacist Pharmacy 03/08/20 Paola Blue, POLICE SUPERINTENDENT.SLEEVE TURNER [address] [place] [address] [facility] 07/18/24 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 Start Date End Date George Mata MD [address] [place] [address] PCP - General 07/28/07 Consultants, [facility] [address] [place] [address] Physician Cardiology 10/20/19 13, Pharmacist [address] [facility] [place] [address] Pharmacist Pharmacy 03/08/20 Paola Blue, POLICE SUPERINTENDENT.SLEEVE TURNER [address] [place] [address] [facility] 07/18/24 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 Start Date End Date George Mata MD [address] [place], [place] [address] PCP - General 07/28/07 Consultants, [facility] [address] [place] [address] Physician Cardiology 10/20/19 13, Pharmacist [address] [place] [address] Pharmacist Pharmacy 03/08/20 Paola Blue, POLICE SUPERINTENDENT.SLEEVE TURNER [address] [place], [place] [address] [facility] Internal Medicine 07/18/24 Team Status: Active Member [...] October 17, 2024 End: October 17, 2024 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 Start Date End Date George Mata MD [address] [place] [address] PCP - General 07/28/07 Consultants, [facility] [address] [facility] [place] [address] Physician Cardiology 10/20/19 13, Pharmacist [address] [place] [address] Pharmacist Pharmacy 03/08/20 Paola Blue, POLICE SUPERINTENDENT.SLEEVE TURNER [address] [place] [address] [facility] 07/18/24 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 Start Date End Date George Mata MD [address] [place] [address] PCP - General 07/28/07 Consultants, [facility] [address] [place] [address] Physician Cardiology 10/20/19 13, Pharmacist [address] [place] [address] Pharmacist Pharmacy 03/08/20 Paola Blue, POLICE SUPERINTENDENT.SLEEVE TURNER [address] [place], [place] [address] [facility] Internal Medicine 07/18/24 Team Status: Inactive Member Role Status Dates Dr. George Mata MD Primary Care Provider Active Start: December 16, 2024 End: December 16, 2024 Dr. Mackenzie Iverson DO Attending Provider Active Start: December 16, 2024 End: December 16, 2024 Dr. Mackenzie Iverson DO Referring Provider Active Start: December 16, 2024 End: December 16, 2024 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 Start Date End Date George Mata MD [address] [place], [place] [address] PCP - General 07/28/07 Consultants, [facility] [address] [place] [address] Physician Cardiology 10/20/19 13, Pharmacist [address] [place] [address] Pharmacist Pharmacy 03/08/20 Paola Blue, POLICE SUPERINTENDENT.SLEEVE TURNER [address] [place] [address] [facility] Internal Medicine 07/18/24 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 Start Date End Date George Mata MD [address] [facility] [place] [address] PCP - General 07/28/07 Consultants, [facility] [address] [place] [address] Physician Cardiology 10/20/19 13, Pharmacist [address] [place] [address] Pharmacist Pharmacy 03/08/20 Paola Blue, POLICE SUPERINTENDENT.SLEEVE TURNER [address] [place] [address] [facility] Internal Medicine 07/18/24 Team Status: Active Member Role/Relationship Status Dates Dr. George Mata MD Primary Care Provider Active Team Status: Inactive Member Role/Relationship Status Dates Dr. George Mata MD Primary Care Provider Active Start: December 16, 2024 End: December 16, 2024 Dr. Mackenzie Iverson DO Attending Provider Active Start: December 16, 2024 End: December 16, 2024 Dr. Mackenzie Iverson DO Referring Provider Active Start: December 16, 2024 End: December 16, 2024 Team Status: Active Member Role/Relationship Status Dates Dr. George Mata MD Primary Care Provider Active Start: March 04, 2025 Dr. Nash Orosco DO Emergency Provider Active Start: March 04, 2025 Dr. Abimael Donaldson DO Admit Provider Active Star t: March 04, 2025 Dr. Abimael Donaldson DO Attending Provider Active Start: March 04, 2025 Goals (unrecognized section and content) Goals may be documented in a n alternate section (unrecognized sect ion and content) No Status Records FoundNo Status Records FoundNo Status Records FoundNo Status Records FoundNo Status Records Found INFORMATION SOURCE (unrecogn ized section and content) DATE CREATED AUTHOR 03/12/2024 [facility] ([place]) DATE CREATED AUTHOR AUTHOR'S ORGANIZ ATION 12/21/2024 [facility] DATE CREATED AUTHOR AUTHOR'S ORGANIZ ATION 01/10/2025 [facility] DATE CREATED AUTHOR AUTHOR'S ORGANIZ ATION 02/27/2025 [facility] DATE CREATED AUTHOR AUTHOR'S ORGANIZ ATION 03/02/2025 [facility] FOR RECORDS PERTAINING TO PATIENTS WHO ARE [...] BE BASED ON THE PRIMARY CLINICAL RECORDS. [employer] provides no warranty or guarantee of the accuracy or completeness of information in this document.
[2025-03-04] MEDS: SACUBITRIL/VALSARTAN 24/26 MG TABLET 1 EACH PO (23:00)
[2025-03-05] VITALS (7 sets, daily range): BP systolic 106–137; BP diastolic 70–90; PULSE 62–97; RESP 17–20; TEMP 36.4–36.7; O2SAT 89–97; BMI 27.1
[2025-03-05] MEDS: Albuterol 2.5 MG/3 ML VIAL.NEB. INHALATION ×3 (03:32→13:31)
[2025-03-05 05:58] LABS: Hematocrit 33.6 % (40-54); Hemoglobin 10.6 g/dL (13.0-16.5); Immature Granulocytes Count 0.030 X10^3/uL (0.0-0.0); Mean Corp Hgb Conc 31.5 g/dL (32-36); Mean Corpuscular Volume 88.0 fL (80-94); Mean Platelet Vol. 10.3 fl (6.2-12.0); NRBC Flagged by Analyzer 0 % (0-5); POSITIVE DIFFERENTIAL YES; Platelet Count 134 K/mm3 (150-450); RBC Distribution Width CV 17.1 % (11.6-14.6); RBC Distribution Width SD 54.9 fl (35.1-43.9); Red Blood Count 3.82 M/mm3 (4.6-6.2); White Blood Count 8.8 K/mm3 (4.4-11.0)
[2025-03-05 06:08] LABS: Prothrombin Time (Protime)PT. 19.8 SECONDS (11.7-14.9)
[2025-03-05 06:34] LABS: Anion Gap 13 (5-15); BUN 40 mg/dL (4-19); BUN/Creat Ratio 26.5 RATIO (10-20); Calcium,Total 9.3 mg/dL (7.6-11.0); Carbon Dioxide 24.9 mmol/L (21.0-32.0); Chloride 102 mmol/L (98-108); Estimated Creatinine Clearance 39.54 ml/min (50-250); Glucose 119 mg/dL (70-99); Potassium 3.7 mmol/L (3.3-5.1)
--- NOTE | 2025-03-05 06:35 | NURSING ---
Barbara from the [place] transfer line called at this time. Reports still not bed available for patient. Reports potentially having a bed later today.
[2025-03-05] MEDS: Budesonide Respules 0.5 MG/2 ML AMPUL.NEB. INHALATION (06:59)
[2025-03-05] MEDS: SACUBITRIL/VALSARTAN 24/26 MG TABLET 0.5 EACH PO (08:59)
[2025-03-05] MEDS: 0.9% Saline Lock 10 ML Syringe IV (09:02)
--- NOTE | 2025-03-05 15:06 | DS.PCM_ITS ---
Providers Date of Admission: 03/04/25 Primary Care Physician: Dr. George Mata MD Consultations 03/04/25 21:16 Consult: Onc/Wound/eyeglass lens grinder Routine Comment: Reason For Visit: CHF EXACERBATION Diagnosis Discharge Diagnosis (1) HFrEF (heart failure with reduced ejection fraction): Status: Acute Code(s): I50.20 - Unspecified systolic (congestive) heart failure (2) Elevated troponin: Status: Acute Code(s): R79.89 - Other specified abnormal findings of blood chemistry Medications at Discharge Home Medications albuterol sulfate 90 mcg/actuation breath activated powder inhaler (ProAir RespiClick) 90 mcg IH Q4H PRN PRN Sob &/Or Wheezing 02/16/17 aspirin 81 mg chewable tablet 81 mg PO DAILY@0800 BLOD THINNER 02/16/17 fluticasone 250 mcg-salmeterol 50 mcg/dose blistr powdr for inhalation (Advair Diskus) 1 puff inhalation BID ASTHMA/COPD 02/16/17 nitroglycerin 0.4 mg sublingual tablet (Nitrostat) 0.4 mg sublingual PRN PRN CHEST PAIN 02/16/17 pantoprazole 20 mg tablet,delayed release 20 mg PO DAILY ACID REFLUX 02/16/17 lmzdcqkcn-ejgjpvapg-dztcbqlp-scop 16.2 mg-0.1037 mg-0.0194 mg tablet () 16.2 mg PO Q4H PRN PRN Diarrhea 02/16/17 warfarin 5 mg tablet (Coumadin) 2.5 mg PO SUTUWETHSA AFIB 02/16/17 atorvastatin 40 mg tablet 40 mg PO QHS HIGH CHOLESTEROL 12/12/17 bumetanide 1 mg tablet 1 mg PO QODAY water 05/02/21 sacubitril 24 mg-valsartan 26 mg tablet (Entresto) 0.5 tab PO DAILY BP 05/02/21 sacubitril 24 mg-valsartan 26 mg tablet (Entresto) 1 tab PO QHS BP 05/02/21 warfarin 5 mg tablet 5 mg PO MOFR blood thinner 05/02/21 ciprofloxacin HCl 250 mg tablet 250 mg PO BID antibitoic 03/04/25 metoprolol succinate 25 mg tablet,extended release 24 hr 25 mg PO DAILY heart rate 03/04/25 Hospital Course Operations None Procedures None Summary of Care Provided Minutes Spent on Discharge: 38 Hospital Course: Per HPI: MARGARITO VALVERDE, is a 79 M who presents with edema and weight gain. This is an 79-year-old male with history of HFrEF who underwent an AICD (a biventricular cardioverter defibrillator) replacement 1 week ago. The previous pacemaker was 12 years old and was due for change and was changed over a week ago. Patient went home that same day. Patient has developed increasing shortness of breath, lower extremity edema and weight gain since the discharge. I presented to [facility] and was diagnosed with CHF exacerbation as well as with elevated troponins. Patient requested transfer to [facility] as that is where his AICD was placed. They contacted [facility], had a accepting physician but no readily available beds and possibly not until the at the earliest. Therefore, the hospital service at [facility] was contacted for admission. Hospital Course: 1. Increased shortness of breath and lower extremity edema secondary to acute on chronic systolic CHF?79-year-old male who had his pacemaker battery replaced about a week ago presented to the hospital with increased lower extremity edema and shortness of breath. He did not require any oxygen on admission however his proBNP was elevated and had a slight increase in troponins which are skewed because of his CKD and were insignificant ultimately. He was placed on IV Bumex and diuresed fairly well and his shortness of breath improved however there is some concern by family about this occurring so recent after a pacemaker exchange, plus he had an episode of V. tach in the hospital that nursing had relayed to them so they would like to proceed with transfer to [facility] in [place] as this is where his pacemaker was replaced. Continue with fluid restriction of 1.5 L daily. He did have an echo in November 2024 with an EF of 30% from a previous MT and he does have a prosthetic aortic valve and a bioprosthetic mitral valve. His RVSP was 42 mmHg. I discussed with him and the family the plan for transfer today and they expressed understanding of the risk benefits of going to [facility] and would like to proceed with transfer today. 2. Paroxysmal A-fib, essential hypertension, hyperlipidemia, GERD are all chronic medical conditions complicating his care. His home medications were continued where appropriate Physical Exam Narrative General: Alert, Oriented x3, Cooperative, No apparent distress HEENT: Atraumatic, PERRLA, EOMI, Normocephalic Oral: Moist Mucosa Neck: Supple, No JVD Lungs: Diminished, Normal air movement, No rhonchi, No wheeze, No rales Cardiovascular: Regular rate, Regular Rhythm, Normal S1, Normal S2, No murmurs Abdomen: Soft, Non Tender, Non-Distended, No Hepato-splenomegaly Extremities: Trace edema, Capillary Refill Less than 3 Seconds Skin: Left sided ecchymosis in various stages of aging from trauma and falls. He does have a lower extremity skin tear on his right colmenares that he is currently on Cipro for Musculoskeletal: No Tenderness to Palpation of Joints or Extremities Neurological: No focal neurological deficits, moves all extremities, sensation intact Psych/Mental Status: Normal Affect, Appropriate Weight / BMI Weight Weight: 183 lb 6.793 oz Body Mass Index (BMI) 27.1 ABG / Lab / Microbiology Data 03/05/25 05:30 03/05/25 05:30 Laboratory: Laboratory Results - last 24 hr 03/04/25 15:40: Troponin T Hi Sens 4Hr 101 H* 03/05/25 05:30: WBC 8.8, RBC 3.82 L, Hgb 10.6 L, Hct 33.6 L, MCV 88.0, MCH 27.7, MCHC 31.5 L, RDW Std Deviation 54.9 H, RDW Coeff of Drew 17.1 H, Plt Count 134 L, MPV 10.3, Immature Gran % (Auto) 0.300, Neut % (Auto) 81.1 H, Lymph % (Auto) 6.2 L, [place] % (Auto) 10.3 H, Eos % (Auto) 1.8, Baso % (Auto) 0.3, Absolute Neuts (auto) 7.1, Absolute Lymphs (auto) 0.54 L, Nucleated RBC % 0, PT 19.8 H, INR 1.7, Sodium 140, Potassium 3.7, Chloride 102, Carbon Dioxide 24.9, Anion Gap 13, BUN 40 H, Creatinine 1.49 H, Estim Creat Clear Calc 39.54 L, Est GFR (MDRD) Non- Af 47 L, BUN/Creatinine Ratio 26.5 H, Glucose 119 H, Calcium 9.3 D/C Instructions DC O2, CPAP, BIPAP Needs Home O2 Discharge instructions: No Meaningful Use Info Meaningful Use Meaningful Use Diagnoses (Choose all that apply): None applicable Discharge Plan Admission Admit Date/Time: 03/04/25 20:52 Attending Provider: Ethan Prather Primary Care Provider: George Mata Consulting Providers: Abimael Donaldson Discharge Orders/Prescriptions Prescriptions: No Action fluticasone propion-salmeterol [Advair Diskus] 1 PUFF inhaler 1 puff inhalation BID Patient Comments: SOB pantoprazole 20 MG tablet,delayed release (DR/EC) 20 mg PO DAILY Patient Comments: GERD warfarin [Coumadin] 5 MG tablet 2.5 mg PO SUTUWETHSA Patient Comments: ANTICOAGULANT nitroglycerin [Nitrostat] 0.4 MG tablet, sublingual 0.4 mg sublingual PRN PRN (Reason: CHEST PAIN) Patient Comments: CHEST PAIN aspirin 81 MG tablet,chewable 81 mg PO DAILY@0800 Patient Comments: [facility] HEALTH qxakexkjd-ejyqpd-klywujor-scop [] 16.2 MG tablet 16.2 mg PO Q4H PRN PRN (Reason: Diarrhea) Patient Comments: DIARRHEA ProAir RespiClick 90 MCG aerosol powdr breath activated 90 mcg IH Q4H PRN PRN (Reason: Sob &/Or Wheezing) Patient Comments: SOB atorvastatin 40 MG tablet 40 mg PO QHS warfarin 5 mg Tablet 5 mg PO MOFR bumetanide 1 mg Tablet 1 mg PO QODAY Entresto 24-26 mg Tablet 0.5 tab PO DAILY Entresto 24-26 mg Tablet 1 tab PO QHS ciprofloxacin HCl 250 mg tablet 250 mg PO BID metoprolol succinate 25 mg tablet extended release 24 hr 25 mg PO DAILY Referrals / Follow Up: George Mata MD [Primary Care Provider] - Disposition Discharge Orders: Discharge Patient (Routine); Ordered 03/05/25 Ordered By: Dr. Ethan Prather Charges/Coding Visit Charges Inpatient E&M: 76165 Disch Hosp >30min
--- NOTE | 2025-03-05 15:13 | NURSING ---
Attempted to call report to [facility]U. No one answered the phone. Will attempt to call again.
== END 2025-03-05 15:54 | disposition short-term general hospital (02) | DRG 291 ==
LOC: ED 11:41 → PCU 20:50
PROVIDERS: Emergency Provider Emergency Medicine; PCP Internal Medicine; Visit Provider Family Medicine
DX: I13.0 Hypertensive heart and chronic kidney disease with heart failure and stage 1 through stage 4 chronic kidney disease, or unspecified chronic kidney disease (principal); I50.23 Acute on chronic systolic (congestive) heart failure; I24.89 Other forms of acute ischemic heart disease; Z79.01 Long term (current) use of anticoagulants; J44.9 Chronic obstructive pulmonary disease, unspecified; N18.32 Chronic kidney disease, stage 3b; Z95.2 Presence of prosthetic heart valve; I48.0 Paroxysmal atrial fibrillation; F17.220 Nicotine dependence, chewing tobacco, uncomplicated; K21.9 Gastro-esophageal reflux disease without esophagitis; E78.00 Pure hypercholesterolemia, unspecified; I25.2 Old myocardial infarction; F17.210 Nicotine dependence, cigarettes, uncomplicated; Z95.5 Presence of coronary angioplasty implant and graft; Z95.810 Presence of automatic (implantable) cardiac defibrillator; Z79.51 Long term (current) use of inhaled steroids; Z79.82 Long term (current) use of aspirin; Z79.899 Other long term (current) drug therapy
CPT/HCPCS: 36415; 71045; 80048; 83735; 83880; 84484; 85025; 85610; 93005; 93970; 94640; 94668; 99285; 99406; A4216